=== PATIENT | female | born 1985 | race Caucasian/White ===

== ENCOUNTER 2017-09-27 20:47 | Emergency (ER) | payer MEDICAID, SELFPAY ==
[2017-09-27 20:49] VITALS: BP 119/74; PULSE 72; RESP 15; TEMP 36.8; O2SAT 100; BMI 24.8
[2017-09-27 21:11] LABS: Bacteria 0 SEEN /hpf (None Seen); Mucous, Urine 0 SEEN /hpf (<or=2+); Red Blood Cells-Urine 0 SEEN /hpf (0-5); White Blood Cells 0 SEEN /hpf (0-5)
[2017-09-27 21:15] LABS: Color, Urine Yellow (Yellow); Glucose, Dipstick Normal (Normal); Ketone-Dipstick Negative (Negative); Leukocyte Esterase-Dipstick Negative /ul (Negative); Nitrite-Dipstick Negative (Negative); Occult Blood-Urine Negative /ul (Negative); Protein-Dipstick Negative (Negative); Urine Bilirubin Dipstick Negative (Negative); Urine Clarity Sl. Cloudy (Clear); Urine Urobilinogen Normal (Normal)
[2017-09-27 21:26] LABS: Squamous Epithelial Cells - UA 0-5 SEEN /hpf (5-10)
--- NOTE | 2017-09-27 22:03 | ED.DCSUM_ITS ---
- ER Visit Summary Date of Service: 09/27/17 Chief Complaint: Frequency mid lower abdominal pain and discomfort with urination History of Present Illness: The patient is a 32 F who presents because of frequency, disc comfort with urination and pain that she localizes over the suprapubic region. She also complained of pain mid low back. She denies fever , chills night sweats. She denies nausea or vomiting. She states her last urinary tract infection was 2-3 years ago. Her last menses was 6 weeks ago. She does use contraceptives. She denies any other symptoms please read written note Physical Examination: Patient appears no discomfort. Vital signs are unremarkable and she is afebrile. HEENT is unremarkable. Heart is regular without murmur, gallop or rub. S1 and S2 are normal. Lungs are clear to auscultation with good movement of air bilaterally. Abdomen is remarkable tenderness suprapubic area. She complained of pain in the left upper quadrant however with distraction there is no pain. There is no hepatosplenomegaly. Negative Yancey sign. There is no CVA tenderness noted. There is no skin lesion noted. Alert oriented with a nonfocal neurologic exam Test Results: UA is normal Emergency Department Course and Treatment: Patient states menses are irregular. She has no symptoms of . Because she has urinary symptoms a UA was obtained. Treatment Plan: Her UA is normal she was treated with Azo for her discomfort and discharged with prescription. Disposition: Discharged to home Impression: Dysuria of unknown etiology This note was generated with [employer] dictation software. It may contain incorrect words, spelling, and punctuation that were not noted in review of the chart prior to signing ED Disposition - Plan for ED Patient: Disposition: Home or Assisted Living Chief Complaint: Complaint Instructions: ED Dysuria Uncertain Cause Prescriptions: Phenazopyridine HCl [Azo Urinary Pain Relief] 190 mg PO TID #10 tab Referrals: Demond Allen III, MD [Primary Care Provider] - 3-5 Days if not improving
[2017-09-27] MEDS: Phenazopyridine 95 MG Tablet 190 MG PO (22:15)
[2017-09-27 22:16] VITALS: BP 108/72; PULSE 64; O2SAT 100
== END 2017-09-27 22:17 | disposition home or self-care (01) ==
PROVIDERS: Emergency Provider Emergency Medicine; Family Provider Family Medicine; PCP Family Medicine
DX: R30.0 Dysuria (principal); R10.12 Left upper quadrant pain; M54.9 Dorsalgia, unspecified; R35.0 Frequency of micturition
CPT/HCPCS: 81001; 99283

== ENCOUNTER 2017-12-10 05:04 | Emergency (ER) | payer MEDICAID, SELFPAY ==
[2017-12-10 05:06] VITALS: BP 117/72; PULSE 110; RESP 24; TEMP 36.9; O2SAT 97; BMI 24.5
[2017-12-10 06:20] LABS: Absolute Lymphocyte Count 2.74 X10^3/ul (0.83-4.51); Absolute Neutrophil Count 2.7 X10^3/uL (2.0-7.7); Basophil# 0.02 X10^3/uL; Basophil% 0.3 % (0-1); Eosinophil# 0.06 X10^3/uL; Hematocrit 35.5 % (37-47); Hemoglobin 10.7 g/dl (12.0-15.0); Lymphocyte # 2.74 X10^3/ul (4.0); Lymphocyte % 44.2 % (19-41); Mean Corp Hgb Conc 30.1 g/gl (32-36); Mean Corpuscular Hgb 21.3 pg (27.0-32.0); Mean Corpuscular Volume 70.7 fL (81-99); Mean Platelet Vol. 9.1 fl (6.2-12.0); Monocyte# 0.65 X10^3/uL; Monocyte% 10.5 % (0-10); Neutrophil # 2.73 X10^3/uL (2.7-7.7); Platelet Count 294 K/mm3 (150-450); RBC Distribution Width CV 15.1 % (11.6-14.6); RBC Distribution Width SD 38.8 fl (35.1-43.9); Red Blood Count 5.02 M/mm3 (4.2-5.4); White Blood Count 6.2 K/mm3 (4.4-11.0)
[2017-12-10 06:27] LABS: Anion Gap 13 (5-15); BUN 15 mg/dL (7-18); Calcium,Total 8.5 mg/dL (8.5-10.1); Chloride 106 mmol/L (98-107); Creatinine, Serum 0.94 mg/dL (0.55-1.02); EST Glomerular Filtration Rate 73 mL/min (>60); Est Glom Filt Rate - Afr Amer 88 mL/min (>60); Estimated Creatinine Clearance 69.76 ml/min; Glucose 89 mg/dL (74-106); Potassium 3.5 mmol/L (3.5-5.1); Sodium Level 141 mmol/L (136-145)
[2017-12-10 06:30] LABS: Differential Indicated SCAN CRITERIA MET; POSITIVE COUNT NO; POSITIVE DIFFERENTIAL NO; POSITIVE MORPHOLOGY YES
[2017-12-10 07:03] LABS: Bacteria 0 SEEN /hpf (None Seen); Mucous, Urine 0 SEEN /hpf (<or=2+); Red Blood Cells-Urine 0 SEEN /hpf (0-5); White Blood Cells 0 SEEN /hpf (0-5)
[2017-12-10 07:12] LABS: Color, Urine Straw (Yellow); Glucose, Dipstick NEGATIVE (Normal); Ketone-Dipstick Negative (Negative); Leukocyte Esterase-Dipstick Negative /ul (Negative); Nitrite-Dipstick Negative (Negative); Occult Blood-Urine Negative /ul (Negative); Protein-Dipstick Negative (Negative); Specific Gravity, Urine 1.015 (1.002-1.030); Urine Bilirubin Dipstick Negative (Negative); Urine Clarity Clear (Clear); Urine Urobilinogen Normal (Normal)
[2017-12-10 07:13] LABS: Squamous Epithelial Cells - UA 0-5 SEEN /hpf (5-10)
[2017-12-10 07:25] VITALS: BP 107/68; PULSE 69; RESP 18; O2SAT 98
[2017-12-10 07:25] LABS: Amphetamine Urine VISTA NEGATIVE (<1000 ng/mL); Barbiturate Urine VISTA NEGATIVE (< 200 ng/mL); Benzodiazepine Urine VISTA NEGATIVE (< 200 ng/mL); Cocaine Urine VISTA NEGATIVE (< 300 ng/mL); Ecstacy Urine VISTA NEGATIVE (< 500 ng/mL); Methadone Urine VISTA NEGATIVE (< 300 ng/mL); PCP Urine VISTA NEGATIVE (< 25 ng/mL); THC Urine VISTA NEGATIVE (< 50 ng/mL); Vista UDS pH Range 6
--- NOTE | 2017-12-10 07:39 | ED.DCSUM_ITS ---
- ER Visit Summary Date of Service: 12/10/17 Chief Complaint: Seizure History of Present Illness: The patient is a 32 F with a seizure. The patient had a similar episode 7 months ago. This evening she was sleeping. Her noted that she started making noises, shaking, and was unresponsive for about 2 minutes. She was confused afterwards. She remembers waking up when EMS was in her bedroom. The patient has been feeling well recently. She was seen in April for the same thing. This happened while she was asleep. She had a CT of her head as well as labs and a lumbar puncture. Workup was unremarkable. She was referred to neurology as an outpatient, but she never had any issues so she did not follow-up. She has been sleeping well but she does snore and wake up frequently. She denies drug use. Denies head injuries. Denies any other new problems. Physical Examination: Vital signs unremarkable except for tachycardia. Heart rate 110. Afebrile. Head and neck atraumatic. Cranial nerves grossly intact. No focal or lateralizing neurologic abnormalities. Skin is normal in color. Heart is regular. Lungs clear. Patient is alert and oriented. Appropriate for situation. Test Results: Hemoglobin 10.7 BMP unremarkable. Urinalysis normal. Tox screen negative. Emergency Department Course and Treatment: Patient had seizure precautions. No further seizure activity was noted. She previously had a thorough workup but has not yet had an MRI or EEG. She did not follow-up with neurology after her last ER visit. Spoke with Dr. Cowan. He recommended MRI and outpatient follow-up for EEG. Patient has a piercing embedded in her left ear that we were unable to remove. We discussed surgical options for removal. She would like to follow- up as an outpatient. I believe this is reasonable. She did have a CT and it was unremarkable. I will refer her to Dr. Colvin for piercing removal. She can follow-up with neurology for outpatient MRI and EEG. Patient will be started on Keppra 500 mg twice a day. I stressed driving restrictions on multiple occasions. No driving whatsoever. Patient should call today to schedule appointment with ENT and neurology. Treatment Plan: As above Disposition: Discharged Impression: 1. Seizure This note was generated with [employer] software. It may contain incorrect words, spelling, and punctuation that were not noted in review of the chart prior to signing ED Disposition - Plan for ED Patient: Chief Complaint: Seizure Referrals: Demond Allen III, MD [Primary Care Provider] -
--- NOTE | 2017-12-10 07:40 | ED.DEP ---
ED Disposition - Plan for ED Patient: Chief Complaint: Seizure Instructions: ED Seizure Recurrent Prescriptions: levETIRAcetam tablet [Keppra tablet] 500 mg PO BID #60 tab Referrals: Robert Colvin MD [STAFF PHYSICIAN] - Darin Cowan MD [STAFF PHYSICIAN] - Additional Instructions: Follow-up with Dr. Colvin from ENT for piercing removal. Follow-up with Dr. Cowan for neurology. No driving until cleared by neurology.
[2017-12-10] MEDS: levETIRAcetam 500 MG Tablet PO (07:43)
[2017-12-10 07:49] VITALS: BP 105/64; PULSE 66; RESP 16; O2SAT 96
== END 2017-12-10 07:50 | disposition home or self-care (01) ==
LOC: ED 05:27
PROVIDERS: Emergency Provider Emergency Medicine; Family Provider Family Medicine; PCP Family Medicine
DX: R56.9 Unspecified convulsions (principal)
CPT/HCPCS: 80048; 80307; 81001; 85025; 99285; A4216

== ENCOUNTER → 2017-12-17 10:01 | Outpatient (CLI) | payer MEDICAID, SELFPAY ==
--- NOTE | 2017-12-17 10:05 | RAD_ITS ---
STUDY: X-RAY - SKULL REASON FOR EXAM: Female, 32 years old. Question ball from earing left ear. TECHNIQUE: 5 view(s) of the skull were obtained. COMPARISON: None. FINDINGS: There appears to be a right nasal piercing in place. Normal osseous calvarium. Normal visualized facial bones. Normal visualized paranasal sinuses. No foreign body is visualized within the expected region of the internal auditory canal. RAD/Skull min 4 Views IMPRESSION: No foreign body visualized within the left ear. Electronically Signed: Candace Elias MD at 23:41 EDT Tel , Service support ,
== END ==
PROVIDERS: Family Provider Family Medicine; PCP Family Medicine; Visit Provider Otolaryngology
DX: M79.5 Residual foreign body in soft tissue (principal)
CPT/HCPCS: 70260

== ENCOUNTER 2018-04-23 20:31 | Emergency (ER) | payer MEDICAID, SELFPAY ==
[2018-04-23 20:31] VITALS: BP 123/73; PULSE 74; RESP 16; TEMP 36.9; O2SAT 100; BMI 22.1
--- NOTE | 2018-04-23 21:23 | ED.DCSUM_ITS ---
- ER Visit Summary Date of Service: 04/23/18 Chief Complaint: Bilateral hand pain History of Present Illness: The patient is a 32 F presenting for evaluation secondary to bilateral hand pain. Patient reports that at about 1400 today she had an onset of burning in her hands laterally. She states that initially her hands were red and scorched hot, now the hands are cold but still have a burning sensation. 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 She has never had a history of cutting banana peppers in the past. Physical Examination: Upper extremity exam shows normal radial and ulnar pulses. Normal Lencho testing. Normal capillary refill. Normal range of motion of the hand and wrist. Normal color of the skin, skin is somewhat cool. Test Results: None indicated Emergency Department Course and Treatment: Patient presented with a burning sensation of her hands after being exposed to banana peppers. I did consider the possibility of vascular etiology, ray nods syndrome, or allergic reaction this does not seem to be consistent with that. She likely has an element of a chemical dermatitis. She was recommended on washing her hands, icing her hand, and contact precautions next time she works with peppers at work. Disposition: Discharge Impression: Chemical dermatitis This note was generated with [employer] dictation software. It may contain incorrect words, spelling, and punctuation that were not noted in review of the chart prior to signing ED Disposition - Plan for ED Patient: Disposition: Home or Assisted Living Chief Complaint: Upper Extremity Injury Diagnosis: Chemical dermatitis Instructions: ED Dermatitis Contact Referrals: Demond Allen III, MD [Primary Care Provider] -
[2018-04-23 21:31] VITALS: BP 121/68; PULSE 72; RESP 18; O2SAT 98
== END 2018-04-23 21:32 | disposition home or self-care (01) ==
PROVIDERS: Emergency Provider Emergency Medicine; Family Provider Family Medicine; PCP Family Medicine
DX: L25.3 Unspecified contact dermatitis due to other chemical products (principal); G40.909 Epilepsy, unspecified, not intractable, without status epilepticus
CPT/HCPCS: 99282

== ENCOUNTER 2018-12-20 14:50 | Emergency (ER) | payer MEDICAID, SELFPAY ==
[2018-12-20 14:51] VITALS: BP 111/67; PULSE 58; RESP 16; TEMP 36.6; O2SAT 100; BMI 23.3
[2018-12-20 15:01] VITALS: BP 126/81; PULSE 61; RESP 15; O2SAT 100
--- NOTE | 2018-12-20 15:33 | RAD_ITS ---
STUDY: X-RAY CHEST REASON FOR EXAM: Female, 33 years old. Chest pain TECHNIQUE: Frontal and lateral views of the chest COMPARISON: 03/21/2014 FINDINGS: The lungs are clear. There are no pleural effusions. There is no pneumothorax. The heart is normal in size. The visualized osseous structures are within normal limits. RAD/Chest PA and Lateral IMPRESSION: No acute thoracic pathology. Electronically Signed: Jose Aguero, at 16:08 EDT Tel , Service support ,
--- NOTE | 2018-12-20 15:38 | ED.VIS.GEN ---
History of Present Illness Chief Complaint: Chest Pain Informant: Patient Onset: Today Context: Sudden Onset Timing: Continuous Quality: sharp Location: left chest Current Severity: Mild Maximum Severity: Moderate Worsened by: movement of left upper extremity Relieved by: nothing Associated Symptoms: none Narrative: 33-year-old female presents with chest pain. Patient was laying on her left side and reading a book when she began sudden onset of sharp left-sided chest pain 30 minutes prior to arrival. Pain lasted for about 15 minutes and resolved. She was not short of breath lightheaded or dizzy. No nausea or vomiting. No diaphoresis. No numbness or tingling of the extremities or swelling. No history of having the symptoms previously. She has been feeling well up until today. Patient denies any recent travel or surgery use of oral contraceptives or history of DVT or PE. She is a non-smoker with no history of hypertension hyperlipidemia or diabetes. There is no family history of heart disease at her age or a young age less than 50. Prior similar symptoms: No Recent Illness/Hospitalization: No Past Medical History - Allergies and Home Meds Allergies/Adverse Reactions: Allergies Bleach (Sodium Hypochlorite) Allergy (Verified 12/20/18 14:51) Hives lamotrigine [From Lamictal] Allergy (Verified 12/20/18 14:51) Rash PINE TREES Allergy (Uncoded 12/20/18 14:51) Hives Primary Care Physician: Demond Allen III, MD [Primary Care Provider] - Prior records reviewed: Yes Past Medical History: - - seizures Surgical History: - - Smoking Status: Never smoker Review of Systems All systems negative except as indicated Cardiovascular: Reports: Chest pain. Denies: Palpitations, Heart racing Physical Exam Vital Signs/Narrative: Vital Signs Temp Pulse Resp BP Pulse Ox 12/20/18 15:01 61 15 126/81 H 100 12/20/18 14:51 97.8 F 58 L 16 111/67 100 Inital Vital Signs reviewed: Yes General: Well nourished, Well developed, No Acute Distress Head: Normocephalic, Atraumatic Eyes: Perrl, EOMI ENT: Moist mucous membranes Neck: Supple, Nontender Cardiovascular: Regular rate, Regular rhythm, No murmurs Respiratory: No distress, CTA bilaterally, Chest nontender Abdomen: Soft, Nontender, Nondistended, Normal bowel sounds, No masses Back: Nontender Extremities: Nontender, No edema Skin: Normal color, No rash Neurological: Alert, Oriented x3, Normal Strength, Normal Sensation Diagnostic/Tx/Re-eval - EKG Initial EKG Interpretation: Sinus Rhythm - Sinus rhythm rate of 53 bpm., No Acute Injury Pattern Prior: No Prior - Medical Decision Making EKG was normal sinus rhythm rate of [address] segment or T wave changes. Normal intervals. No ectopy. Chest x-ray unremarkable. Patient is PERC negative. Vital signs are stable. She is not tachycardic or hypoxic. Pain is likely musculoskeletal in nature. She does not have any risk factors for coronary artery disease. She is not having any pain at this time. Will discharge home and have her follow-up with her primary care physician. ED Disposition - Plan for ED Patient: Diagnosis: Chest pain Instructions: CHEST PAIN, NonCardiac Referrals: Demond Allen III, MD [Primary Care Provider] -
--- NOTE | 2018-12-20 15:55 | EKG12_ITS ---
Test Reason : CP Blood Pressure : / mmHG Vent. Rate : 053 BPM Atrial Rate : 053 BPM P-R Int : 138 ms QRS Dur : 074 ms QT Int : 420 ms P-R-T Axes : 072 053 048 degrees QTc Int : 394 ms Sinus bradycardia Otherwise normal ECG Confirmed by YOAV WONG, ROBBIE ([id number]), scientific editor LOPEZ VERA ([id number]) on 12/23/2018 11:58:28 AM Referred By: BEVERLEY/JOSEFINA/MATT Confirmed By:ROBBIE CASON MD
[2018-12-20 16:00] VITALS: BP 105/73; PULSE 58; RESP 16; O2SAT 99
[2018-12-20 17:24] VITALS: BP 109/67; PULSE 61; RESP 16; O2SAT 99
== END 2018-12-20 17:25 | disposition home or self-care (01) ==
LOC: ED 16:03
PROVIDERS: Emergency Provider Physician Assistant Medical; Family Provider Family Medicine; PCP Family Medicine
DX: R07.9 Chest pain, unspecified (principal)
CPT/HCPCS: 71046; 93005; 99282; A4216

== ENCOUNTER 2019-03-17 12:42 | Emergency (ER) | payer MEDICAID, SELFPAY ==
[2019-03-17 12:42] VITALS: BP 113/72; PULSE 69; RESP 18; TEMP 36.6; O2SAT 99; BMI 23.0
--- NOTE | 2019-03-17 13:20 | CT_ITS ---
STUDY: CT ABDOMEN AND PELVIS WITH CONTRAST REASON FOR EXAM: Female, 33 years old. Right lower quadrant pain. RADIATION DOSAGE (If Supplied By Facility): CTDIvol = ( 9.79 ) mGy, DLP = ( 490.20 ) mGycm TECHNIQUE: Transaxial images were obtained from the dome of the diaphragm to the symphysis pubis with oral contrast. IV/Oral Isovue 300 100 was administered. Sagittal and coronal images were reconstructed. Individualized dose optimization techniques were used for this CT. COMPARISON: None. FINDINGS: The visualized lung bases are unremarkable. The visualized portions of the heart are within normal limits. There is a 1.2 cm cyst in the posterior aspect of the dome of the right lobe of liver. I also suspect a tiny cyst in the anterior aspect of the left lobe of liver. Normal gallbladder and extrahepatic biliary system. Borderline splenomegaly. Normal pancreas. Normal bilateral adrenal glands. Normal right kidney. Normal left kidney. Normal visualized stomach. Normal small intestine. Normal colon. The appendix is visualized and appears normal. Normal abdominal aorta. Normal inferior vena cava. Normal retroperitoneum. Normal urinary bladder. There is a 2.8 cm x 3.6 cm septated cyst in the right lobe. The left ovary measures 3.1 cm x 4 cm. Multiple small follicles are seen within it. Small amount of free fluid in the pelvis. Normal abdominal wall. Normal osseous structures. CT/Abdomen/Pelvis WITH Contrast IMPRESSION: 3.6 cm x 2.8 cm septated cyst in the right ovary. Small amount of free fluid in the pelvis. Small follicles in the left ovary. Hepatic cysts. Borderline splenomegaly. Electronically Signed: Onesimo Farrar, at 15:35 EDT , Service support ,
--- NOTE | 2019-03-17 13:21 | ED.DCSUM_ITS ---
History of Present Illness Chief Complaint: Abd Pain Informant: Patient Onset: Days - 11 Narrative: 33-year-old female with history of seizure disorder, on Keppra, presenting with 11 days of persistent worsening right lower quadrant pain. Patient states she was evaluated at the [email or web address] and told to come to the emergency room for further evaluation to rule out appendicitis. Patient notes that she has had some increased nausea over the past week and a half. She notes she normally has nausea associated with taking her Keppra. In addition she has had constant pain in her right lower quadrant that fluctuates in intensity. She describes it as sharp, burning and aching. It does not radiate. Should she is also having some pain around her bellybutton at this time. She has had a couple soft bowel movements but denies any diarrhea. She denies any blood in her stool. She denies any urinary symptoms. She denies any abnormal vaginal bleeding or discharge. States she has had 4 C-sections but denies any other surgical history. She did not take anything for pain. She denies any other complaints at this time. Patient states she has a history of ovarian cyst and thought that was what was causing her pain but as it worsened persisted she went to see the [facility] today. Past Medical History - Allergies and Home Meds Allergies/Adverse Reactions: Allergies Bleach (Sodium Hypochlorite) Allergy (Verified 03/17/19 12:44) Hives lamotrigine [From Lamictal] Allergy (Verified 03/17/19 12:44) Rash PINE TREES Allergy (Uncoded 03/17/19 12:44) Hives Primary Care Physician: Demond Allen III, MD [Primary Care Provider] - Past Medical History: - - seizure disorder Surgical History: - - Smoking Status: Never smoker Review of Systems All systems negative except as indicated Gastrointestinal: Reports: Abdominal pain, Nausea Physical Exam Vital Signs/Narrative: Vital Signs Temp Pulse Resp BP Pulse Ox 03/17/19 12:42 98 F 69 18 113/72 99 Inital Vital Signs reviewed: Yes General: Well nourished, Well developed, No Acute Distress Head: Normocephalic, Atraumatic Eyes: Perrl, EOMI ENT: Moist mucous membranes, No rhinorrhea Neck: Supple, Nontender Cardiovascular: Regular rate, Regular rhythm, No murmurs Respiratory: No distress, CTA bilaterally, Chest nontender Abdomen: Soft, Nondistended, Normal bowel sounds, Tender - rlq. Negative for: Guarding, Rebound tenderness, Psoas sign, Obturator sign Back: Nontender, Normal Inspection. Negative for: CVA tenderness Extremities: Nontender, No edema Skin: Normal color, No rash Neurological: Alert, Oriented x3, Cranial nerves II-XII grossly intact, Normal Strength, Normal Sensation Psychological: Normal affect, Normal Mood Diagnostic/Tx/Re-eval Clinical Impression(s) from Imaging Studies Abdomen/Pelvis CT 03/17/19 13:20 IMPRESSION: 3.6 cm x 2.8 cm septated cyst in the right ovary. Small amount of free fluid in the pelvis. Small follicles in the left ovary. Hepatic cysts. Borderline splenomegaly. Electronically Signed: Onesimo Farrar, at 15:35 EDT , Service support , Laboratory Data 03/17/19 03/17/19 03/17/19 13:32 13:32 13:45 WBC 4.7 RBC 4.89 Hgb 10.4 L Hct 35.0 L MCV 71.6 L MCH 21.3 L MCHC 29.7 L RDW Std Deviation 36.8 RDW Coeff of Mikhail 14.5 Plt Count 226 MPV 9.1 Immature Gran % (Auto) 0.200 Neut % (Auto) 54.0 Lymph % (Auto) 36.3 [place] % (Auto) 7.7 Eos % (Auto) 0.9 Baso % (Auto) 0.9 Absolute Neuts (auto) 2.5 Absolute Lymphs (auto) 1.70 Nucleated RBC % 0 Sodium 140 Potassium 3.7 Chloride 106 Carbon Dioxide 30.0 Anion Gap 4 L BUN 11 Creatinine 0.84 Estim Creat Clear Calc 77.33 Est GFR (MDRD) Af Amer 99 Est GFR (MDRD) Non-Af 82 BUN/Creatinine Ratio 13.1 Glucose 76 Calcium 9.3 Total Bilirubin 0.40 AST 16 ALT 18 Alkaline Phosphatase 49 Total Protein 7.7 Albumin 3.9 Globulin 3.8 Albumin/Globulin Ratio 1.0 Lipase 149 Urine Color Urine Clarity Urine pH Ur Specific [place] Urine Protein Urine Glucose (UA) Urine Ketones Urine Occult Blood Urine Nitrite Urine Bilirubin Urine Urobilinogen Ur Leukocyte Esterase Urine RBC Urine WBC Ur Squamous Epith Cells Urine Bacteria Urine Mucus Urine Test Negative 03/17/19 13:45 WBC RBC Hgb Hct MCV MCH MCHC RDW Std Deviation RDW Coeff of Mikhail Plt Count MPV Immature Gran % (Auto) Neut % (Auto) Lymph % (Auto) [place] % (Auto) Eos % (Auto) Baso % (Auto) Absolute Neuts (auto) Absolute Lymphs (auto) Nucleated RBC % Sodium Potassium Chloride Carbon Dioxide Anion Gap BUN Creatinine Estim Creat Clear Calc Est GFR (MDRD) Af Amer Est GFR (MDRD) Non-Af BUN/Creatinine Ratio Glucose Calcium Total Bilirubin AST ALT Alkaline Phosphatase Total Protein Albumin Globulin Albumin/Globulin Ratio Lipase Urine Color Yellow Urine Clarity Sl. Cloudy Urine pH 7.0 Ur Specific [place] 1.010 Urine Protein Negative Urine Glucose (UA) Normal Urine Ketones Negative Urine Occult Blood Negative Urine Nitrite Negative Urine Bilirubin Negative Urine Urobilinogen Normal Ur Leukocyte Esterase Negative Urine RBC 0 SEEN Urine WBC 0 SEEN Ur Squamous Epith Cells 0-5 SEEN Urine Bacteria 1+ Urine Mucus 0 SEEN Urine Test Diagnostic Data Abdomen/Pelvis CT 03/17/19 13:20 IMPRESSION: 3.6 cm x 2.8 cm septated cyst in the right ovary. Small amount of free fluid in the pelvis. Small follicles in the left ovary. Hepatic cysts. Borderline splenomegaly. Electronically Signed: Onesimo Farrar, at 15:35 EDT , Service support , - Medical Decision Making Is evaluated for worsening right lower quadrant abdominal pain. She appears nontoxic in no acute distress. She is [facility] but instructed to come to the emergency room for concern of acute appendicitis. Pat ient is hemodynamically stable. She declines pain medication in the emergency room. CT with IV and p.o. contrast does not show an acute appendicitis however patient does have ovarian cyst. I suspect the sister the cause of her pain. Her symptoms are not consistent with acute ovarian torsion. I believe patient is stable for outpatient follow-up. Patient is counseled on signs and symptoms requiring return to the emergency room. Patient verbalizes agreement and understand this plan. Patient discharged home in stable and improved condition. ED Disposition - Plan for ED Patient: Disposition: Home or Assisted Living Diagnosis: Ovarian cyst, Right sided abdominal pain Instructions: Ovarian Cyst Prescriptions: Ibuprofen [Motrin] 600 mg PO Q8H PRN PRN #20 tab PRN Reason: Pain Score 1-10/10 Prescription Printed Referrals: Demond Allen III, MD [Primary Care Provider] - Additional Instructions: Follow-up with your [facility] for ovarian cyst. Return if you have worsening symptoms. You do not have appendicitis at this time.
[2019-03-17 13:47] LABS: Absolute Neutrophil Count 2.5 X10^3/uL (2.0-7.7); Basophil# 0.04 X10^3/uL; Basophil% 0.9 % (0-1); Eosinophil# 0.04 X10^3/uL; Eosinophils% 0.9 % (0-5); Hemoglobin 10.4 g/dL (12.0-15.0); Lymphocyte % 36.3 % (19-41); Mean Corp Hgb Conc 29.7 g/dL (32-36); Mean Corpuscular Hgb 21.3 pg (27.0-32.0); Mean Corpuscular Volume 71.6 fL (81-99); Mean Platelet Vol. 9.1 fl (6.2-12.0); Monocyte# 0.36 X10^3/uL; Monocyte% 7.7 % (0-10); NRBC Flagged by Analyzer 0 % (0-5); Neutrophil # 2.53 X10^3/uL (2.7-7.7); Platelet Count 226 K/mm3 (150-450); RBC Distribution Width CV 14.5 % (11.6-14.6); RBC Distribution Width SD 36.8 fl (35.1-43.9); Red Blood Count 4.89 M/mm3 (4.2-5.4); White Blood Count 4.7 K/mm3 (4.4-11.0)
[2019-03-17 13:58] LABS: Mucous, Urine 0 SEEN /hpf (<or=2+); Red Blood Cells-Urine 0 SEEN /hpf (0-5); White Blood Cells 0 SEEN /hpf (0-5)
[2019-03-17 14:00] LABS: Color, Urine Yellow (Yellow); Glucose, Dipstick Normal (Normal); Ketone-Dipstick Negative (Negative); Leukocyte Esterase-Dipstick Negative /ul (Negative); Nitrite-Dipstick Negative (Negative); Occult Blood-Urine Negative /ul (Negative); Protein-Dipstick Negative (Negative); Urine Bilirubin Dipstick Negative (Negative); Urine Clarity Sl. Cloudy (Clear); Urine Urobilinogen Normal (Normal)
[2019-03-17 14:03] LABS: Internal QC Validated? YES +Cl - CLEAR BKGD; Pregnancy, Urine Negative Negative
[2019-03-17 14:05] LABS: AST(SGOT) 16 U/L (15-37); Alanine Aminotransfer ALT/SGPT 18 U/L (13-56); Albumin, Serum 3.9 g/dL (3.2-5.0); Alkaline Phosphatase 49 U/L (45-117); Anion Gap 4 (5-15); BUN 11 mg/dL (7-18); BUN/Creat Ratio 13.1 RATIO (10-20); Calcium,Total 9.3 mg/dL (8.5-10.1); Chloride 106 mmol/L (98-107); Creatinine, Serum 0.84 mg/dL (0.55-1.02); EST Glomerular Filtration Rate 82 mL/min (>60); Est Glom Filt Rate - Afr Amer 99 mL/min (>60); Estimated Creatinine Clearance 77.33 ml/min; Globulin 3.8 g/dL (2.2-4.2); Glucose 76 mg/dL (74-106); Lipase 149 U/L (73-393); Potassium 3.7 mmol/L (3.5-5.1); Protein, Total 7.7 g/dL (6.4-8.2); Sodium Level 140 mmol/L (136-145)
[2019-03-17 14:10] LABS: Bacteria 1+ /hpf (None Seen); Squamous Epithelial Cells - UA 0-5 SEEN /hpf (5-10)
[2019-03-17 15:42] VITALS: BP 107/68; PULSE 42; RESP 16
== END 2019-03-17 16:17 | disposition home or self-care (01) ==
PROVIDERS: Emergency Provider Emergency Medicine; Family Provider Family Medicine; PCP Family Medicine
DX: N83.201 Unspecified ovarian cyst, right side (principal); R10.31 Right lower quadrant pain; K76.89 Other specified diseases of liver; G40.909 Epilepsy, unspecified, not intractable, without status epilepticus
CPT/HCPCS: 74177; 80053; 81001; 81025; 83690; 85025; 99283; Q9967; A4216

== ENCOUNTER 2021-08-25 09:12 | Emergency (ER) | payer MEDICAID, SELFPAY ==
[2021-08-25 09:15] VITALS: BP 133/78; PULSE 61; RESP 16; TEMP 36.5; O2SAT 100; BMI 25.2
--- NOTE | 2021-08-25 09:39 | CT_ITS ---
STUDY: CT BRAIN WITHOUT CONTRAST REASON FOR EXAM: Female, 36 years old. Confusion. RADIATION DOSAGE (If Supplied By Facility): CTDIvol = ( 44.99 ) mGy, DLP = ( 779.24 ) mGycm TECHNIQUE: Transaxial CT imaging of the brain was performed without administration of intravenous contrast material. Individualized dose optimization techniques were used for this CT. COMPARISON: Comparison is made with prior study dated 04/26/2017. FINDINGS: Normal soft tissue structures. Normal calvarium. Normal size ventricles and extra-axial spaces for the patient''s age. Normal white matter tracts of the cerebral hemispheres. Normal basal ganglia and thalami. Normal brainstem. Normal cerebellum. There is no intracranial hemorrhage. There are no findings of an acute ischemic infarction. Normal visualized paranasal sinuses. CT/Brain/Head without Contrast IMPRESSION: Normal unenhanced CT scan of the brain. Electronically Signed: Onesimo Farrar MD at 10:19 EST ,
--- NOTE | 2021-08-25 09:41 | EX.ED.VIS.HA ---
HPI History of Present Illness Chief Complaint: Seizure Narrative Narrative: 36-year-old female presenting with confusion. 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 She states that she was having trouble picking up of her seat and confused about orders and this does not usually happen. She states she just feels off. 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 She states it did not seem to hurt that bad. She states that the Cook next to her yelled oh Lord. She did not get knocked out. She states she is not dizzy. No visual complaints. Known paresthesias. No facial droop or slurred speech. She does complain of a very mild headache. Patient also has a history of seizure disorder and she is on Keppra and she states that she normally will have a seizure in her sleep. She states that she would wake up feeling groggy and tired if this was the case but she did not wake up feeling groggy and tired. She has not had any known seizure. [facility] Medical History Epilepsy Home Medications ibuprofen 600 mg PO Q8H PRN PRN #20 tab 03/17/19 [Rx Last Taken Unknown] cephalexin 500 mg PO Q12 #14 cap 08/25/21 [Rx Last Taken Unknown] levetiracetam 500 mg PO BREAKFAST 08/25/21 [History Last Taken Unknown] levetiracetam 750 mg PO QHS 08/25/21 [History Last Taken Unknown] Allergy/AdvReac Type Severity Reaction Status Date / Time Bleach (Sodium Hypochlorite) Allergy Hives Verified 08/25/21 09:14 lamotrigine [From Lamictal] Allergy Rash Verified 08/25/21 09:14 [place]ES Allergy Hives Uncoded 08/25/21 09:14 Social History Smoking Status: Never smoker ROS ROS ED Constitutional Constitutional ED: Denies chills or fever(s) Eyes Eyes: Denies blurry vision or diplopia ENT ENT ED: Denies rhinorrhea or sore throat Cardiovascular Cardiovascular: Denies chest pain or palpitations Respiratory/Chest Respiratory/Chest: Denies dyspnea Gastrointestinal Gastrointestinal: Denies abdominal pain, nausea or vomiting Genitourinary Genitourinary ED: Denies dysuria or hematuria Musculoskeletal Musculoskeletal: Denies back pain, myalgias or neck pain Neurologic Neurologic: Reports headache(s) and other Details: Mild confusion Psychiatric Psychiatric: Denies anxiety or depression EXAM Physical Exam Const Vital Signs: 08/25/21 09:15 Temperature 97.7 F L Temperature Source Temporal Pulse Rate 61 Respiratory Rate 16 Blood Pressure 133/78 H Blood Pressure Mean 96 Pulse Ox 100 Oxygen Delivery Method Room Air General Appearance ED: Negative for pallor HEENT Reports normocephalic atraumatic Eyes PERRL and EOMs intact bilaterally Resp normal respiratory effort and clear to auscultation bilaterally Cardio regular rate and regular rhythm GI non-tender and non-distended Palpation: soft Extremity normal to inspection Neuro oriented x3, CN's II-XII intact bilaterally and no sensory deficits noted Sensorium / Orientation: awake and alert Coordination / Balance: [id number] test normal Speech: speech normal Motor Exam: strength 5/5 throughout Psych mental status grossly normal Attitude: No agitated Mood & Affect: Negative for anxious Skin General Skin Exam: Negative for jaundice or pallor MDM MDM MDM Narrative Medical decision making narrative: 36-year-old female presenting after head injury and having some confusion issues at work. She has no external signs of trauma. Her neurologic exam is normal. I did obtain lab work and her CBC and CMP are within normal limits. Serum is negative. Urinalysis has positive nitrites and 5-10 WBCs. She is not having any urinary symptoms but since she does have positive nitrites I will start her on Keflex and send urine culture. Clinically I think she has a concussion and she is given precautions for return for this. Patient knowledges understanding. She is discharged in stable condition. Impression: 1. UTI 2. Concussion Lab Data Attestation: I reviewed the patient's lab results. Labs: Laboratory Results - last 24 hr 08/25/21 08/25/21 08/25/21 09:35 09:35 09:35 WBC 5.2 RBC 4.84 Hgb 8.6 L Hct 30.7 L MCV 63.4 L MCH 17.8 L MCHC 28.0 L RDW Std Deviation 38.0 RDW Coeff of Mikhail 16.8 H Plt Count 267 MPV 9.1 Immature Gran % (Auto) 0.400 Neut % (Auto) 61.6 Lymph % (Auto) 29.1 [place] % (Auto) 7.3 Eos % (Auto) 1.0 Baso % (Auto) 0.6 Absolute Neuts (auto) 3.2 Absolute Lymphs (auto) 1.52 Nucleated RBC % 0 Sodium 138 Potassium 3.5 Chloride 106 Carbon Dioxide 28.0 Anion Gap 4 L BUN 12 Creatinine 0.76 Estim Creat Clear Calc 83.02 Est GFR (MDRD) Af Amer 109 Est GFR (MDRD) Non-Af 90 BUN/Creatinine Ratio 15.7 Glucose 94 Calcium 9.2 Total Bilirubin 0.20 AST 19 ALT 18 Alkaline Phosphatase 46 Total Protein 7.9 Albumin 3.9 Globulin 4.0 Albumin/Globulin Ratio 1.0 Serum , Qual NEGATIVE Urine Color Urine Clarity Urine pH Ur Specific [place] Urine Protein Urine Glucose (UA) Urine Ketones Urine Occult Blood Urine Nitrite Urine Bilirubin Urine Urobilinogen Ur Leukocyte Esterase Urine RBC Urine WBC Ur Squamous Epith Cells Urine Bacteria Urine Mucus 08/25/21 09:57 WBC RBC Hgb Hct MCV MCH MCHC RDW Std Deviation RDW Coeff of Mikhail Plt Count MPV Immature Gran % (Auto) Neut % (Auto) Lymph % (Auto) [place] % (Auto) Eos % (Auto) Baso % (Auto) Absolute Neuts (auto) Absolute Lymphs (auto) Nucleated RBC % Sodium Potassium Chloride Carbon Dioxide Anion Gap BUN Creatinine Estim Creat Clear Calc Est GFR (MDRD) Af Amer Est GFR (MDRD) Non-Af BUN/Creatinine Ratio Glucose Calcium Total Bilirubin AST ALT Alkaline Phosphatase Total Protein Albumin Globulin Albumin/Globulin Ratio Serum , Qual Urine Color Yellow Urine Clarity Sl. Cloudy Urine pH 7.0 Ur Specific [place] 1.010 Urine Protein Negative Urine Glucose (UA) Normal Urine Ketones Negative Urine Occult Blood Negative Urine Nitrite Positive H Urine Bilirubin Negative Urine Urobilinogen Normal Ur Leukocyte Esterase Negative Urine RBC 0 SEEN Urine WBC 5-10 SEEN Ur Squamous Epith Cells 0 SEEN Urine Bacteria 0 SEEN Urine Mucus 0 SEEN Radiography Diagnostic Testing: Clinical Impression(s) from Imaging Studies Brain CT 08/25/21 09:39 IMPRESSION: Normal unenhanced CT scan of the brain. Electronically Signed: Onesimo Farrar MD at 10:19 EST , Discharge Plan Triage Chief Complaint: Seizure ED Provider: Cristian Ramírez Dx/Rx/DC Orders Instructions: ED Concussion, ED CYSTITIS Female Adult Prescriptions: New cephalexin 500 mg capsule 500 mg PO Q12 Qty: 14 RF: 0 No Action ibuprofen 600 MG tablet 600 mg PO Q8H PRN PRN (Reason: Pain Score 1-10/10) Qty: 20 RF: 0 levetiracetam 500 mg tablet 500 mg PO BREAKFAST RF: 0 levetiracetam 500 mg tablet 750 mg PO QHS RF: 0 Primary Care Provider: Care Physician,No Primary Referrals: Care Physician,No Primary [Primary Care Provider] - Disposition Disposition: Home, Self Care
[2021-08-25 09:47] LABS: Absolute Lymphocyte Count 1.52 X10^3/uL (0.83-4.51); Absolute Neutrophil Count 3.2 X10^3/uL (2.0-7.7); Basophil# 0.03 X10^3/uL; Basophil% 0.6 % (0-1); Eosinophil# 0.05 X10^3/uL; Hematocrit 30.7 % (37-47); Hemoglobin 8.6 g/dL (12.0-15.0); Lymphocyte # 1.52 X10^3/ul (0.83-4.51); Lymphocyte % 29.1 % (19-41); Mean Corpuscular Hgb 17.8 pg (27.0-32.0); Mean Corpuscular Volume 63.4 fL (81-99); Mean Platelet Vol. 9.1 fl (6.2-12.0); Monocyte# 0.38 X10^3/uL; Monocyte% 7.3 % (0-10); NRBC Flagged by Analyzer 0 % (0-5); Neutrophil # 3.22 X10^3/uL (2.7-7.7); Neutrophil % 61.6 % (47-70); Platelet Count 267 K/mm3 (150-450); RBC Distribution Width CV 16.8 % (11.6-14.6); Red Blood Count 4.84 M/mm3 (4.2-5.4); White Blood Count 5.2 K/mm3 (4.4-11.0)
[2021-08-25 09:51] LABS: Internal QC Validated? YES +Cl - CLEAR BKGD; Pregnancy, Serum, hCG Quali. NEGATIVE Negative
[2021-08-25 09:59] LABS: AST(SGOT) 19 U/L (15-37); Alanine Aminotransfer ALT/SGPT 18 U/L (13-56); Albumin, Serum 3.9 g/dL (3.2-5.0); Alkaline Phosphatase 46 U/L (45-117); Anion Gap 4 (5-15); BUN 12 mg/dL (7-18); BUN/Creat Ratio 15.7 RATIO (10-20); Calcium,Total 9.2 mg/dL (8.5-10.1); Chloride 106 mmol/L (98-107); Creatinine, Serum 0.76 mg/dL (0.55-1.02); EST Glomerular Filtration Rate 90 mL/min (>60); Est Glom Filt Rate - Afr Amer 109 mL/min (>60); Estimated Creatinine Clearance 83.02 ml/min; Glucose 94 mg/dL (74-106); Potassium 3.5 mmol/L (3.5-5.1); Protein, Total 7.9 g/dL (6.4-8.2); Sodium Level 138 mmol/L (136-145)
[2021-08-25 10:03] LABS: Bacteria 0 SEEN /hpf (None Seen); Mucous, Urine 0 SEEN /hpf (<or=2+); Red Blood Cells-Urine 0 SEEN /hpf (0-5); Squamous Epithelial Cells - UA 0 SEEN /hpf (5-10)
[2021-08-25 10:06] LABS: Color, Urine Yellow (Yellow); Glucose, Dipstick Normal (Normal); Ketone-Dipstick Negative (Negative); Leukocyte Esterase-Dipstick Negative /ul (Negative); Nitrite-Dipstick Positive (Negative); Occult Blood-Urine Negative /ul (Negative); Protein-Dipstick Negative (Negative); Urine Bilirubin Dipstick Negative (Negative); Urine Clarity Sl. Cloudy (Clear); Urine Urobilinogen Normal (Normal)
[2021-08-25 10:22] LABS: White Blood Cells 5-10 SEEN /hpf (0-5)
[2021-08-25] MEDS: Cephalexin 250 MG Capsule 500 MG PO (11:10)
== END 2021-08-25 11:15 | disposition home or self-care (01) ==
PROVIDERS: Emergency Provider Student in an Organized Health Care Education/Training Program; Visit Provider Student in an Organized Health Care Education/Training Program
DX: S06.0X0A Concussion without loss of consciousness, initial encounter (principal); G40.909 Epilepsy, unspecified, not intractable, without status epilepticus; N39.0 Urinary tract infection, site not specified; W22.09XA Striking against other stationary object, initial encounter; Y99.0 Civilian activity done for income or pay; Y92.511 Restaurant or cafe as the place of occurrence of the external cause
CPT/HCPCS: 70450; 80053; 81001; 84703; 85025; 87086; 87088; 99285; A4216

== ENCOUNTER 2021-11-23 15:45 | Emergency (ER) | payer MEDICAID, SELFPAY ==
[2021-11-23 15:47] VITALS: BP 118/72; PULSE 52; RESP 18; TEMP 36.5; O2SAT 100; BMI 23.9
--- NOTE | 2021-11-23 16:12 | EKG12_ITS ---
Test Reason : CP Blood Pressure : / mmHG Vent. Rate : 047 BPM Atrial Rate : 047 BPM P-R Int : 130 ms QRS Dur : 084 ms QT Int : 466 ms P-R-T Axes : 064 056 053 degrees QTc Int : 412 ms Sinus bradycardia Otherwise normal ECG Confirmed by CHERY WONG, LAW ([id number]), staff editor SARITA DIEZ ([id number]) on 11/27/2021 12:53:30 PM Referred By: DRAKE/RHODA Confirmed By:LAW GOTTLIEB MD
--- NOTE | 2021-11-23 16:25 | RAD_ITS ---
STUDY: X-RAY CHEST REASON FOR EXAM: Female, 36 years old. CHEST PAIN chest pain TECHNIQUE: XR Chest 2 Views COMPARISON: 12/20/2018 FINDINGS: There is no demonstrated pleural abnormality. Normal size heart. Normal mediastinum and mikaela. Normal visualized pulmonary arteries. Normal visualized aortic arch and descending thoracic aorta. Normal visualized thoracic spine. Normal visualized ribs, clavicles, and shoulders. There is no demonstrated abnormality of the visualized soft tissue structures of the upper abdomen. RAD/Chest PA and Lateral IMPRESSION: There are no acute findings. Electronically Signed: Kwaku Wilson MD at 16:44 EDT ,
[2021-11-23 16:26] LABS: Absolute Lymphocyte Count 2.91 X10^3/uL (0.83-4.51); Absolute Neutrophil Count 7.6 X10^3/uL (2.0-7.7); Basophil# 0.05 X10^3/uL; Basophil% 0.4 % (0-1); Eosinophil# 0.01 X10^3/uL; Eosinophils% 0.1 % (0-5); Hemoglobin 8.5 g/dL (12.0-15.0); Lymphocyte # 2.91 X10^3/ul (0.83-4.51); Lymphocyte % 25.7 % (19-41); Mean Corp Hgb Conc 27.4 g/dL (32-36); Mean Corpuscular Hgb 17.3 pg (27.0-32.0); Mean Corpuscular Volume 63.1 fL (81-99); Monocyte# 0.75 X10^3/uL; Monocyte% 6.6 % (0-10); NRBC Flagged by Analyzer 0 % (0-5); Neutrophil # 7.58 X10^3/uL (2.7-7.7); Neutrophil % 66.9 % (47-70); POSITIVE COUNT YES; RBC Distribution Width CV 17.4 % (11.6-14.6); RBC Distribution Width SD 38.5 fl (35.1-43.9); Red Blood Count 4.91 M/mm3 (4.2-5.4); White Blood Count 11.3 K/mm3 (4.4-11.0)
[2021-11-23 16:30] LABS: Differential Indicated SCAN CRITERIA MET
[2021-11-23 16:48] LABS: Anion Gap 8 (5-15); BUN 16 mg/dL (7-18); BUN/Creat Ratio 19.8 RATIO (10-20); Calcium,Total 9.9 mg/dL (8.5-10.1); Chloride 106 mmol/L (98-107); Creatinine, Serum 0.81 mg/dL (0.55-1.02); EST Glomerular Filtration Rate 84 mL/min (>60); Est Glom Filt Rate - Afr Amer 102 mL/min (>60); Glucose 79 mg/dL (74-106); Potassium 3.3 mmol/L (3.5-5.1); Sodium Level 138 mmol/L (136-145); Troponin-I HS (w/2H Reflex) < 3 pg/mL (3.0-54.0)
[2021-11-23 16:56] LABS: Platelet Estimate SLT DEC (ADEQ)
--- NOTE | 2021-11-23 16:57 | ED.VIS.CHEST ---
HPI History of Present Illness Chief Complaint: Chest Pain Informant: patient Onset/Context/Timing Onset: Today Activity at onset: sudden Timing: Continuous Quality: Positive for Pressure and Sharp Location: Right Chest and Left Chest Worsened By: Movement of Arm Relieved By: Nothing Associated Symptoms: Positive for Diaphoresis, Dyspnea, Cough and Lightheadedness; Negative for Nausea, Vomiting, Fever, Acid Reflux and Palpitations Narrative Narrative: She presents with chest pain that began approximately 30 to 40 minutes prior to arrival. Patient states it is under her breasts bilaterally. Patient describes her pain as sharp and pressure-like. Patient states it is worse with movement of her arms. Patient states nothing seems to help with it. Patient does admit to some shortness of breath and mild sweats. Patient admits to a cough and lightheadedness. Patient denies any fevers or chills. Patient denies any nausea or vomiting. Patient denies any cardiac or PE risk factors. CVD Risk Factors: Negative for Hypertension, Diabetes, Hypercholesterolemia, Family History 1' </=55 and Smoking PE Risk Factors: Negative for Recent Travel/Surgery, Recent Immobilization, Prior DVT or PE, Cancer and OCP + Smoking + >/=35 PFSH PFSH Medical History Anxiety Epilepsy Home Medications ibuprofen 600 mg PO Q8H PRN PRN #20 tab 03/17/19 [Rx Last Taken Unknown] levetiracetam 500 mg PO BREAKFAST 08/25/21 [History Last Taken Unknown] levetiracetam 750 mg PO QHS 08/25/21 [History Last Taken Unknown] prednisone 10 mg PO DAILY 11/23/21 [History Last Taken Unknown] Allergy/AdvReac Type Severity Reaction Status Date / Time Bleach (Sodium Hypochlorite) Allergy Hives Verified 11/23/21 15:46 lamotrigine [From Lamictal] Allergy Rash Verified 11/23/21 15:46 [place]RE[place] Allergy Hives Uncoded 11/23/21 15:46 Social History Smoking Status: Never smoker ROS ROS ED Constitutional Constitutional ED: Denies chills or fever(s) Eyes Eyes: Denies blurry vision or change in vision ENT ENT ED: Denies rhinorrhea or sore throat Cardiovascular Cardiovascular: Reports chest pain; Denies palpitations Respiratory/Chest Respiratory/Chest: Reports cough and dyspnea Gastrointestinal Gastrointestinal: Denies abdominal pain, nausea or vomiting Genitourinary Genitourinary ED: Denies dysuria or hematuria Musculoskeletal Musculoskeletal: Denies back pain or neck pain Integumentary Denies abscess or rash Neurologic Neurologic: Denies headache(s) or weakness Allergic/Immunologic Allergic/Immunologic ED: Denies mouth swelling or urticaria EXAM Physical Exam Const Vital Signs: 11/23/21 15:47 11/23/21 16:17 11/23/21 17:32 Temperature 97.7 F L Temperature Source Temporal Pulse Rate 52 L 47 L Respiratory Rate 18 18 Respiratory Effort Normal Non-Labored Blood Pressure 118/72 Blood Pressure Mean 87 Pulse Ox 100 100 Oxygen Delivery Method Room Air Room Air Room Air 11/23/21 18:40 11/23/21 18:52 11/23/21 19:13 Temperature Temperature Source Pulse Rate 48 L 47 L Respiratory Rate 16 15 Respiratory Effort Blood Pressure 130/76 H 120/80 Blood Pressure Mean 94 93 Pulse Ox 100 100 Oxygen Delivery Method Room Air Room Air Positive well nourished and well developed General Appearance ED: well developed and NAD HEENT normocephalic and atraumatic Eyes PERRL and EOMs intact bilaterally Neck supple and no JVD Chest Wall Chest Narrative: There is tenderness over the chest bilaterally both in the upper chest as well as along the costal margins bilaterally. There is no bony crepitance or step-off. There is no edema or ecchymosis. Resp normal respiratory effort and clear to auscultation bilaterally Effort and Inspection: Negative for respiratory distress Cardio regular rate, regular rhythm and no murmurs GI normal to inspection, nondistended, normoactive bowel sounds, soft to palpation, non-tender and non-distended Extremity normal to inspection General Extremety ED: Negative for edema or tenderness General Extremity: Negative for edema Neuro oriented x3, CN's II-XII intact bilaterally and no sensory deficits noted Sensorium / Orientation: awake and alert Motor Exam: strength 5/5 throughout Psych mental status grossly normal Heart Score History: Slightly/Non-Suspicious ECG: Normal Age: </= 45 years Risk Factors: No Risk Factors Score: 0 MDM MDM MDM Narrative Medical decision making narrative: Patient was given aspirin here. EKG was obtained. On my interpretation, it showed a sinus bradycardia with a rate of 47. GA interval, QRS interval, and QTc intervals were all normal. [place] was normal. There are no acute ST or T wave changes. PA and lateral chest x-ray was obtained. There are 2 views. On my interpretation, lung mcghee are clear. There is normal cardiac silhouette. Bony thorax is normal. There is no acute process noted. Radiologist also interpreted the x-ray and agrees. CBC shows a slight leukocytosis of 11.3. There is anemia with a hemoglobin of 8.5 and hematocrit 31.0. These are consistent with prior results. Basic metabolic profile was within normal limits. High-sensitivity troponin was less than 3. Patient was also given a GI cocktail. Patient felt better after this. 2-hour repeat high-sensitivity troponin was also less than 3. Patient has a HEART score of 0. Patient was advised that this is low risk for acute cardiac event. Patient was advised that it may be gastrointestinal etiology. Patient was advised to take [id number] omeprazole as needed. Patient was instructed to follow-up with her primary care physician in 5 to 7 days for further evaluation. Patient understood and was agreeable with the plan. All questions were answered. Lab Data Attestation: I reviewed the patient's lab results. Labs: Laboratory Results - last 24 hr 11/23/21 11/23/21 11/23/21 16:15 16:15 18:35 WBC 11.3 H RBC 4.91 Hgb 8.5 L Hct 31.0 L MCV 63.1 L MCH 17.3 L MCHC 27.4 L RDW Std Deviation 38.5 RDW Coeff of Mikhail 17.4 H Plt Count TNP MPV TNP Immature Gran % (Auto) 0.300 Neut % (Auto) 66.9 Lymph % (Auto) 25.7 [place] % (Auto) 6.6 Eos % (Auto) 0.1 Baso % (Auto) 0.4 Absolute Neuts (auto) 7.6 Absolute Lymphs (auto) 2.91 Nucleated RBC % 0 Platelet Estimate SLT DEC Sodium 138 Potassium 3.3 L Chloride 106 Carbon Dioxide 24.0 Anion Gap 8 BUN 16 Creatinine 0.81 Estim Creat Clear Calc 77.90 Est GFR (MDRD) Af Amer 102 Est GFR (MDRD) Non-Af 84 BUN/Creatinine Ratio 19.8 Glucose 79 Calcium 9.9 Troponin I High Sens < 3 L < 3 L Radiography Diagnostic Testing: Clinical Impression(s) from Imaging Studies Chest X-Ray 11/23/21 16:25 IMPRESSION: There are no acute findings. Electronically Signed: Kwaku Wilson MD at 16:44 EDT Reading Location ID and State: [facility] / [place] , Service support , EKG Initial EKG: Attestation: I personally reviewed and interpreted this EKG as follows: Interpretation: No Acute Injury Pattern and Sinus Bradycardia (47) Prior EKG tracings: available for review Prior: Unchanged (07/22/2018) Discharge Plan Triage Chief Complaint: Chest Pain ED Provider: Robert Belhcer Dx/Rx/DC Orders Clinical Impression: Chest pain of uncertain etiology Instructions: ED Chest Pain, Uncertain Cause Prescriptions: No Action ibuprofen 600 MG tablet 600 mg PO Q8H PRN PRN (Reason: Pain Score 1-10/10) Qty: 20 RF: 0 levetiracetam 500 mg tablet 500 mg PO BREAKFAST RF: 0 levetiracetam 500 mg tablet 750 mg PO QHS RF: 0 prednisone 10 mg tablet 10 mg PO DAILY RF: 0 Primary Care Provider: Care Physician,No Primary Referrals: Jose Guadalupe Walton MD [STAFF PHYSICIAN] - 5-7 Days Care Physician,No Primary [Primary Care Provider] - Disposition Disposition: Home, Self Care
[2021-11-23] MEDS: Aspirin 81 MG TAB.CHEW 324 MG PO (17:00)
[2021-11-23 17:32] VITALS: PULSE 47; RESP 18; O2SAT 100
[2021-11-23 18:21] LABS: Reflex Troponin-HS? (from REC) Y
[2021-11-23 18:40] VITALS: PULSE 48; RESP 16; O2SAT 100
[2021-11-23 18:52] VITALS: BP 130/76
[2021-11-23] MEDS: Mag Hydrox/Al Hydrox/Simeth 30 ML UDC PO (18:59)
[2021-11-23 19:13] VITALS: BP 120/80; PULSE 47; RESP 15; O2SAT 100
[2021-11-23 19:19] LABS: Troponin-I HS < 3 pg/mL (3.0-54.0)
[2021-11-23 19:50] VITALS: BP 115/73; PULSE 54; RESP 18; O2SAT 100
== END 2021-11-23 19:51 | disposition home or self-care (01) ==
PROVIDERS: Emergency Provider Emergency Medicine; Visit Provider Emergency Medicine
DX: R07.9 Chest pain, unspecified (principal); G40.909 Epilepsy, unspecified, not intractable, without status epilepticus; R00.1 Bradycardia, unspecified; D64.9 Anemia, unspecified; R06.02 Shortness of breath; Z79.899 Other long term (current) drug therapy
CPT/HCPCS: 71046; 80048; 84484; 85025; 93005; 99284; A4216

== ENCOUNTER 2022-02-05 08:20 | Emergency (ER) | payer MEDICAID, SELFPAY ==
[2022-02-05 08:20] VITALS: BP 115/70; PULSE 75; RESP 16; TEMP 36.6; O2SAT 100; BMI 23.0
[2022-02-05] MEDS: HYDROcodone Bitartrate/Apap 5/325 Tablet PO (08:33)
[2022-02-05] MEDS: Naproxen 250 MG Tablet 500 MG PO (08:33)
--- NOTE | 2022-02-05 08:37 | ED.VIS.BACK ---
HPI History of Present Illness Chief Complaint: Back Detail of Chief Complaint: Right lower back pain radiating anteriorly Informant: patient Onset/Context/Timing Onset: Today and Hours Quality: Aching Location: Thoracic, Lumbar, Buttock and Right Leg Current Severity: Mild Maximum Severity: Moderate Worsened by: improves with Movement, Bending and Lifting Relieved by: Nothing (Minimal if patient remains still) Associated Symptoms Associated Symptoms: - (Denies saddle paresthesia.); Negative for Numbness, Tingling, Radiation to Right Leg, Radiation to Left Leg, Fever, Abdominal Pain, Dysuria, Unable to Ambulate, Unable to Transfer, Urinary Retention, Urinary Incontinence, Constipation or Fecal Incontinence Narrative Narrative: Patient is a 36-year-old woman with history of ovarian cyst, ureterolithiasis who presents with atraumatic right lower back pain that radiates anteriorly. She denies nausea, vomiting or diarrhea. She states she has not urinated today. She denies dysuria, frequency, hematuria or urgency. She denies trauma. She denies rash. Last normal menstrual period end of December. She has no symptoms of . She has not noted a rash. Prior similar symptoms: Yes Recent Illness/Hospitalization: No PFSH PFS Medical History (Updated 02/05/22 @ 10:[address] Ciro Lara MD) Anxiety Epilepsy Ureteral stone Home Medications levetiracetam 500 mg tablet 750 mg PO BID 08/25/21 [History Last Taken Unknown] hydrocodone-acetaminophen 5-325mg 5mg-325mg 1 tab PO Q6H PRN PRN Pain 3 days #10 TABLETS 02/05/22 [Rx Last Taken Unknown] sulfamethoxazole 800 mg-trimethoprim 160 mg tablet 1 tab PO BID #20 TABLETS 02/05/22 [Rx Last Taken Unknown] Allergy/AdvReac Type Severity Reaction Status Date / Time Bleach (Sodium Hypochlorite) Allergy Hives Verified 02/05/22 08:22 lamotrigine [From Lamictal] Allergy Rash Verified 02/05/22 08:22 tree and shrub pollen Allergy Hives Verified 02/05/22 08:22 Surgical History no surgical history no surgical history Social History (Updated 02/05/22 @ 08:[address] Ciro Lara MD) household members: spouse Smoking Status: Never smoker substance use type: does not use ROS ROS ED Constitutional Constitutional ED: Denies chills, fever(s), subjective, sweats or weight loss Eyes Eyes: Denies blurry vision, change in vision or diplopia ENT ENT ED: Denies ear pain, rhinorrhea or sore throat Cardiovascular Cardiovascular: Denies chest pain, orthopnea, palpitations, paroxysmal nocturnal dyspnea or racing heartbeat Respiratory/Chest Respiratory/Chest: Denies dyspnea, dyspnea on exertion, orthopnea or paroxysmal nocturnal dyspnea Gastrointestinal Gastrointestinal: Reports abdominal pain; Denies diarrhea, melena, nausea or vomiting Genitourinary Genitourinary ED: Denies dysuria, hematuria or urinary frequency Musculoskeletal Musculoskeletal: Reports back pain; Denies arthralgias, myalgias or neck pain Integumentary Denies Abrasions or rash Neurologic Neurologic: Denies paresthesias or weakness Hematologic/Lymphatic Hematologic/Lymphatic: Denies easy bleeding or easy bruising EXAM Physical Exam Const Vital Signs: 02/05/22 08:20 Temperature 97.8 F Temperature Source Temporal Pulse Rate 75 Respiratory Rate 16 Blood Pressure 115/70 Blood Pressure Mean 85 Pulse Ox 100 Oxygen Delivery Method Room Air Positive well nourished and well developed General Appearance ED: well developed and NAD; Negative for pallor HEENT Reports moist mucous membranes HEENT Narrative: Ears normal. Nares patent. Uvula midline. No erythema exudate of posterior pharynx. Eyes PERRL and EOMs intact bilaterally General Eye ED: Negative for pale conjunctiva or scleral icterus Neck no lymphadenopathy and supple Resp normal respiratory effort and clear to auscultation bilaterally Cardio regular rate, regular rhythm, S1 normal heart sound, S2 normal heart sound and no murmurs GI normal to inspection, nondistended, normoactive bowel sounds, soft to palpation, non-tender, non-distended and no masses Back/Spine normal to inspection; Negative for no thoracic nor lumbar tenderness Back/Spine Narrative: Patient had pain lifting her right leg on her own. Patellar ankle reflex are 2+. EHLs intact. Sensation over L3-S1 dermatome is normal. DP and PT pulses palpable. Movement exacerbates her pain and specifically twisting and bending to the right. Cervical Spine: Negative for cervical spine tenderness Thoracic Spine / Upper Back: paraspinal muscle tenderness Lumbar Spine / Lower Back: ROM limited and straight leg raise negative bilaterally Extremity normal to inspection and no clubbing, cyanosis or edema General Extremety ED: Negative for edema or tenderness General Extremity: Negative for edema Neuro oriented x3 and no sensory deficits noted Sensorium / Orientation: alert Motor Exam: strength 5/5 throughout Deep Tendon Reflexes: Rt Patellar (L4): 2+, Lt Patellar (L4): 2+, Rt Ankle (S1): 2+ and Lt Ankle (S1): 2+ Deep Tendon Reflexes Back: Rt Patellar (L4): 2+, Lt Patellar (L4): 2+, Rt Ankle (S1): 2+ and Lt Ankle (S1): 2+ Plantar Reflex: Downgoing: bilateral (No clonus) Psych mental status grossly normal Skin no rashes or lesions noted and no wounds General Skin Exam: Negative for jaundice or pallor MDM MDM MDM Narrative Medical decision making narrative: History and physical consistent with muscular low back pain. However since she had mild CVA tenderness will obtain UA to rule out urinary tract infection since she has not urinated this morning. She was medicated with oral meds. Patient was reassessed at 0915. She is now writhing in bed. She cannot find a position of comfort. With evidence of a urinary tract infection and concern for obstructing ureteral stone will obtain urine culture, treat with a gram of Rocephin IV piggyback and obtain a CT of the abdomen and pelvis to rule out kidney stone. Interpretation by radiologist was noted. Clip of the right fallopian tube appears to have migrated superiorly. There is no evidence of renal or ureterolithiasis. There is no evidence of hydroureter or hydronephrosis. Plan is antibiotics and pain medicine. Lab Data Attestation: I reviewed the patient's lab results. Labs: Laboratory Results - last 24 hr 02/05/22 08:39 Urine Color Straw Urine Clarity Sl. Cloudy Urine pH 6.0 Ur Specific [place] 1.015 Urine Protein Negative Urine Glucose (UA) Normal Urine Ketones Negative Urine Occult Blood Negative Urine Nitrite Positive H Urine Bilirubin Negative Urine Urobilinogen Normal Ur Leukocyte Esterase 100 H Urine RBC 0 SEEN Urine WBC 0-5 SEEN Ur Squamous Epith Cells 5-10 SEEN Urine Bacteria 3+ Urine Mucus 0 SEEN Radiography Diagnostic Testing: Clinical Impression(s) from Imaging Studies Abdomen/Pelvis CT 02/05/22 09:18 IMPRESSION: Normal unenhanced CT of the abdomen and pelvis. Electronically Signed: Brendan Morrison MD at 9:50 EDT , Discharge Plan Triage Chief Complaint: Back ED Provider: Ciro Lara Dx/Rx/DC Orders Clinical Impression: Pyelonephritis of right kidney Instructions: ED Pyelonephritis, Female (Adult) Prescriptions: New sulfamethoxazole-trimethoprim [sulfamethoxazole-trimethoprim] 800-160 mg tablet 1 tab PO BID Qty: 20 0RF hydrocodone-acetaminophen [hydrocodone-acetaminophen] 5-325 mg tablet 1 tab PO Q6H PRN PRN (Reason: Pain) 3 Days Qty: 10 0RF No Action levetiracetam 500 mg tablet 750 mg PO BID Primary Care Provider: Care Physician,No Primary Referrals: Skip Chen MD [Non-Staff] - 3-5 Days Care Physician,No Primary [Primary Care Provider] - Disposition Disposition: Home, Self Care
[2022-02-05 08:45] LABS: Mucous, Urine 0 SEEN /hpf (<or=2+); Red Blood Cells-Urine 0 SEEN /hpf (0-5)
[2022-02-05 08:50] LABS: Color, Urine Straw (Yellow); Glucose, Dipstick Normal (Normal); Ketone-Dipstick Negative (Negative); Leukocyte Esterase-Dipstick 100 /ul (Negative); Nitrite-Dipstick Positive (Negative); Occult Blood-Urine Negative /ul (Negative); Protein-Dipstick Negative (Negative); Specific Gravity, Urine 1.015 (1.002-1.030); Urine Bilirubin Dipstick Negative (Negative); Urine Clarity Sl. Cloudy (Clear); Urine Urobilinogen Normal (Normal)
[2022-02-05 09:10] LABS: Bacteria 3+ /hpf (None Seen); Squamous Epithelial Cells - UA 5-10 SEEN /hpf (5-10)
[2022-02-05 09:11] LABS: White Blood Cells 0-5 SEEN /hpf (0-5)
--- NOTE | 2022-02-05 09:18 | CT_ITS ---
STUDY: CT ABDOMEN AND PELVIS WITHOUT CONTRAST REASON FOR EXAM: Female, 36 years old. Kidney Stone -- Status post bilateral tubal ligation RADIATION DOSAGE (If Supplied By Facility): CTDIvol = ( 6.76 ) mGy, DLP = ( 339.55 ) mGycm TECHNIQUE: Transaxial images were obtained from the dome of the diaphragm to the symphysis pubis without oral contrast, and without intravenous contrast. Sagittal and coronal images were reconstructed. Individualized dose optimization techniques were used for this CT. COMPARISON: None. FINDINGS: The visualized lung bases are unremarkable. The visualized portions of the heart are within normal limits. Normal liver. Normal gallbladder and extrahepatic biliary system. Normal spleen. Normal pancreas. Normal bilateral adrenal glands. Normal right kidney. Normal left kidney. Normal visualized stomach. Normal small intestine. Normal colon. The appendix is visualized and appears normal. Normal abdominal aorta. Normal inferior vena cava. Normal retroperitoneum. Normal urinary bladder. There is a small umbilical hernia containing fat. Normal osseous structures. CT/Abdomen/Pelvis without Cont IMPRESSION: Normal unenhanced CT of the abdomen and pelvis. Electronically Signed: Brendan Morrison MD at 9:50 EDT ,
[2022-02-05] MEDS: Ketorolac 15 MG/ML Vial IV (09:27)
[2022-02-05 10:05] VITALS: RESP 16
[2022-02-05] MEDS: Ceftriaxone 1 GM/50 ML BAG IV (10:19)
== END 2022-02-05 10:49 | disposition home or self-care (01) ==
PROVIDERS: Emergency Provider Emergency Medicine; Visit Provider Emergency Medicine
DX: N12 Tubulo-interstitial nephritis, not specified as acute or chronic (principal); R21 Rash and other nonspecific skin eruption
CPT/HCPCS: 74176; 81001; 87086; 87088; 87186; 99283

== ENCOUNTER 2022-06-17 10:26 | Emergency (ER) | payer MEDICAID, SELFPAY ==
[2022-06-17 10:27] VITALS: BP 130/83; PULSE 97; RESP 16; TEMP 37.2; O2SAT 99; BMI 24.7
[2022-06-17 10:30] VITALS: O2SAT 99
--- NOTE | 2022-06-17 10:44 | EDS_ITS ---
HPI History of Present Illness Chief Complaint: Shortness of Breath Informant: patient Onset/Context/Timing Onset: Days (2 days) Context: Gradual Onset Current Severity: Mild Maximum Severity: Moderate Narrative Narrative: Patient presents with cough and shortness of breath started 2 days ago. She states it got worse last night. She feels a burning sensation in her chest when she tries to take a deep breath. She had subjective fever at home. [facility] Medical History Anxiety Epilepsy Ureteral stone Home Medications levetiracetam 500 mg tablet 750 mg PO BID 08/25/21 [History Last Taken Unknown] omeprazole 40 mg capsule,delayed release 40 mg PO DAILY 4 weeks #28 caps 06/17/22 [Rx Last Taken Unknown] Allergy/AdvReac Type Severity Reaction Status Date / Time Bleach (Sodium Hypochlorite) Allergy Hives Verified 06/17/22 10:28 lamotrigine [From Lamictal] Allergy Rash Verified 06/17/22 10:28 tree and shrub pollen Allergy Hives Verified 06/17/22 10:28 Social History household members: spouse Smoking Status: Never smoker substance use type: does not use ROS ROS ED Constitutional Constitutional ED: Reports fever(s) and subjective; Denies chills Eyes Eyes: Denies change in vision or discharge from eye(s) ENT ENT ED: Denies discharge from eye(s), rhinorrhea or sore throat Cardiovascular Cardiovascular: Reports chest pain; Denies palpitations Respiratory/Chest Respiratory/Chest: Reports cough and dyspnea Gastrointestinal Gastrointestinal: Denies abdominal pain, diarrhea, nausea or vomiting Genitourinary Genitourinary ED: Denies difficulty urinating or dysuria Musculoskeletal Musculoskeletal: Reports myalgias; Denies back pain or extremity pain Integumentary Denies Abrasions or rash Neurologic Neurologic: Denies headache(s) or weakness Psychiatric Psychiatric: Denies anxiety or depression Allergic/Immunologic Allergic/Immunologic ED: Denies lip swelling or urticaria EXAM Physical Exam Const Vital Signs: 06/17/22 10:27 06/17/22 10:30 06/17/22 10:51 Temperature 98.9 F Temperature Source Temporal Pulse Rate 97 90 Respiratory Rate 16 18 Respiratory Effort Normal Respiratory Depth Normal Respiratory Pattern Normal Normal Blood Pressure 130/83 H Blood Pressure Mean 98 Pulse Ox 99 Oxygen Delivery Method Room Air Room Air Positive well nourished and well developed General Appearance ED: well developed HEENT Reports normocephalic and head/scalp atraumatic Eyes PERRL and EOMs intact bilaterally Neck supple Chest Wall inspection of chest normal and palpation of chest normal Resp normal respiratory effort and clear to auscultation bilaterally Cardio regular rate and regular rhythm GI normal to inspection, nondistended, normoactive bowel sounds Palpation: soft Extremity normal to inspection Neuro oriented x3 and no sensory deficits noted Sensorium / Orientation: alert Motor Exam: strength 5/5 throughout Psych mental status grossly normal Skin no rashes or lesions noted MDM MDM MDM Narrative Medical decision making narrative: Patient initially had aerosol treatment given along with chest x-ray. Swab for COVID and influenza ordered. Lab Data Labs: Laboratory Results - last 24 hr 06/17/22 06/17/22 11:41 11:41 WBC 4.1 L RBC 4.86 Hgb 8.0 L Hct 29.9 L MCV 61.5 L MCH 16.5 L MCHC 26.8 L RDW Std Deviation 38.0 RDW Coeff of Mikhail 17.9 H Plt Count 235 MPV 9.0 Immature Gran % (Auto) 0.000 Neut % (Auto) 61.7 Lymph % (Auto) 25.6 Swain % (Auto) 11.8 H Eos % (Auto) 0.2 Baso % (Auto) 0.7 Absolute Neuts (auto) 2.6 Absolute Lymphs (auto) 1.06 Nucleated RBC % 0 Sodium 136 Potassium 3.2 L Chloride 105 Carbon Dioxide 24.0 Anion Gap 7 BUN 12 Creatinine 0.81 Estim Creat Clear Calc 77.90 Est GFR (MDRD) Af Amer 101 Est GFR (MDRD) Non-Af 83 BUN/Creatinine Ratio 14.8 Glucose 89 Calcium 9.1 Total Bilirubin 0.30 Direct Bilirubin 0.11 AST 16 ALT 21 Alkaline Phosphatase 43 L Total Protein 7.6 Albumin 3.8 Globulin 3.8 Lipase 215 Radiography Diagnostic Testing: Clinical Impression(s) from Imaging Studies Chest X-Ray 06/17/22 11:25 IMPRESSION: Normal x-ray examination of the chest. Electronically Signed: Lyric Triana MD at 11:37 EST , Treatment and Re-Evaluation Narrative: Chest x-ray per my interpretation shows no focal infiltrate. Radiology interpretation is reviewed and agrees. Swab for COVID and influenza is negative. On repeat evaluation patient reported that her breathing was slightly improved with third breathing treatment, however she had gotten a spasm/cramp in the epigastric area making it difficult for her to move. Abdomen is examined and she has mild tenderness in the upper abdomen. At that time lab work was obtained including LFTs and lipase. CBC reveals low white count at 4.1. Hemoglobin is 8.0, consistent with her prior values. Chemistry studies reveal potassium slightly low at 3.2. LFTs and lipase are unremarkable. At this time patient will be given an albuterol inhaler and a dose of p.o. Protonix. I will write her for Prilosec at home. We discussed continued supportive care for her viral syndrome. Return instructions given. Discharge Plan Triage Chief Complaint: Shortness of Breath Other Complaint: Cough ED Provider: Georgina Whitley Dx/Rx/DC Orders Clinical Impression: Viral syndrome, Gastritis Instructions: ED Gastritis (Adult), ED Viral Syndrome (Adult) Prescriptions: New omeprazole 40 mg capsule,delayed release(DR/EC) 40 mg PO DAILY 28 Days Qty: 28 0RF No Action levetiracetam 500 mg tablet 750 mg PO BID Primary Care Provider: Care Physician,No Primary Referrals: Shazia Russo MD [Med Staff - Senior Customer Service Representative] - 1-2 Weeks Care Physician,No Primary [Primary Care Provider] - Disposition Disposition: Home, Self Care
[2022-06-17] MEDS: Ipratropium/Albuterol Sulfate 3 ML AMPUL.NEB INHALATION (10:50)
[2022-06-17 10:51] VITALS: PULSE 90; RESP 18
--- NOTE | 2022-06-17 11:25 | RAD_ITS ---
STUDY: X-RAY CHEST REASON FOR EXAM: Female, 36 years old. Sob TECHNIQUE: Single AP portable view of the chest. COMPARISON: November 23, 2021 chest x-ray FINDINGS: The lungs are clear and expanded. There is no demonstrated pleural abnormality. Normal size heart. Normal mediastinum and mikaela. Normal visualized pulmonary arteries. Normal visualized aortic arch and descending thoracic aorta. There are mild degenerative changes of the visualized thoracic spine. Normal visualized ribs, clavicles, and shoulders. There is no demonstrated abnormality of the visualized soft tissue structures of the upper abdomen. RAD/Chest 1 View (Portable) IMPRESSION: Normal x-ray examination of the chest. Electronically Signed: Lyric Triana MD at 11:37 EST ,
[2022-06-17 11:53] LABS: Absolute Lymphocyte Count 1.06 X10^3/uL (0.83-4.51); Absolute Neutrophil Count 2.6 X10^3/uL (2.0-7.7); Basophil# 0.03 X10^3/uL; Basophil% 0.7 % (0-1); Eosinophil# 0.01 X10^3/uL; Eosinophils% 0.2 % (0-5); Hematocrit 29.9 % (37-47); Lymphocyte # 1.06 X10^3/ul (0.83-4.51); Lymphocyte % 25.6 % (19-41); Mean Corp Hgb Conc 26.8 g/dL (32-36); Mean Corpuscular Hgb 16.5 pg (27.0-32.0); Mean Corpuscular Volume 61.5 fL (81-99); Monocyte# 0.49 X10^3/uL; Monocyte% 11.8 % (0-10); NRBC Flagged by Analyzer 0 % (0-5); Neutrophil # 2.55 X10^3/uL (2.7-7.7); Neutrophil % 61.7 % (47-70); Platelet Count 235 K/mm3 (150-450); RBC Distribution Width CV 17.9 % (11.6-14.6); Red Blood Count 4.86 M/mm3 (4.2-5.4); White Blood Count 4.1 K/mm3 (4.4-11.0)
[2022-06-17 12:07] LABS: AST(SGOT) 16 U/L (15-37); Alanine Aminotransfer ALT/SGPT 21 U/L (13-56); Albumin, Serum 3.8 g/dL (3.2-5.0); Alkaline Phosphatase 43 U/L (45-117); Anion Gap 7 (5-15); BUN 12 mg/dL (7-18); BUN/Creat Ratio 14.8 RATIO (10-20); Bilirubin, Direct 0.11 mg/dL (0.00-0.30); Calcium,Total 9.1 mg/dL (8.5-10.1); Chloride 105 mmol/L (98-107); Creatinine, Serum 0.81 mg/dL (0.55-1.02); EST Glomerular Filtration Rate 83 mL/min (>60); Est Glom Filt Rate - Afr Amer 101 mL/min (>60); Globulin 3.8 g/dL (2.2-4.2); Glucose 89 mg/dL (74-106); Lipase 215 U/L (73-393); Potassium 3.2 mmol/L (3.5-5.1); Protein, Total 7.6 g/dL (6.4-8.2); Sodium Level 136 mmol/L (136-145)
[2022-06-17 12:34] VITALS: BP 107/68; PULSE 83; RESP 18; O2SAT 100
[2022-06-17 12:41] VITALS: BP 101/47; PULSE 79; RESP 18; TEMP 35.9; O2SAT 97
[2022-06-17] MEDS: Albuterol Sulfate 8 gm Inhaler (60 puffs) 2 PUFF INHALATION (12:45)
[2022-06-17] MEDS: Pantoprazole Sodium 40 MG Tablet PO (12:45)
== END 2022-06-17 13:01 | disposition home or self-care (01) ==
PROVIDERS: Emergency Provider Emergency Medicine; Visit Provider Emergency Medicine
DX: B34.9 Viral infection, unspecified (principal); K29.70 Gastritis, unspecified, without bleeding; R06.02 Shortness of breath; R05.9 Cough, unspecified
CPT/HCPCS: 71045; 80048; 80076; 83690; 85025; 87428; 94640; 94664; 99284; A4216

== ENCOUNTER 2022-07-30 22:40 | Emergency (ER) | payer MEDICAID, SELFPAY ==
[2022-07-30 22:41] VITALS: BP 110/68; PULSE 114; RESP 22; TEMP 37.3; O2SAT 96; BMI 24.9
== END 2022-07-30 23:23 | disposition left against medical advice (07) ==
LOC: ED 23:26
DX: R11.2 Nausea with vomiting, unspecified (principal); Z53.21 Procedure and treatment not carried out due to patient leaving prior to being seen by health care provider

== ENCOUNTER 2022-11-26 10:46 | Emergency (ER) | payer MEDICAID, SELFPAY ==
[2022-11-26 10:47] VITALS: BP 131/72; PULSE 69; RESP 16; TEMP 36.2; O2SAT 100; BMI 25.7
[2022-11-26 11:34] LABS: Absolute Lymphocyte Count 1.73 X10^3/uL (0.83-4.51); Absolute Neutrophil Count 3.4 X10^3/uL (2.0-7.7); Basophil# 0.05 X10^3/uL; Basophil% 0.9 % (0-1); Eosinophil# 0.05 X10^3/uL; Eosinophils% 0.9 % (0-5); Hematocrit 29.4 % (37-47); Lymphocyte # 1.73 X10^3/ul (0.83-4.51); Lymphocyte % 30.9 % (19-41); Mean Corp Hgb Conc 27.2 g/dL (32-36); Mean Corpuscular Hgb 16.9 pg (27.0-32.0); Mean Corpuscular Volume 62.2 fL (81-99); Mean Platelet Vol. 8.9 fl (6.2-12.0); Monocyte% 7.1 % (0-10); NRBC Flagged by Analyzer 0 % (0-5); Neutrophil # 3.36 X10^3/uL (2.7-7.7); Platelet Count 239 K/mm3 (150-450); RBC Distribution Width SD 37.4 fl (35.1-43.9); Red Blood Count 4.73 M/mm3 (4.2-5.4); White Blood Count 5.6 K/mm3 (4.4-11.0)
[2022-11-26] MEDS: 0.9% Normal Saline 1,000 ML 1000 ML IV (11:36)
[2022-11-26 11:42] VITALS: BP 105/63; BP 114/83; BP 126/82; PULSE 56; PULSE 59; PULSE 72
[2022-11-26 11:43] LABS: Prothrombin Time (Protime)PT. 13.2 SECONDS (11.7-14.9)
[2022-11-26 11:44] LABS: Partial Thromboplast Time 30.6 Seconds (24.1-36.2)
[2022-11-26 11:46] LABS: Anion Gap 6 (5-15); BUN 15 mg/dL (7-18); BUN/Creat Ratio 17.4 RATIO (10-20); Calcium,Total 9.2 mg/dL (8.5-10.1); Chloride 107 mmol/L (98-107); Creatinine, Serum 0.86 mg/dL (0.55-1.02); EST Glomerular Filtration Rate 78 mL/min (>60); Est Glom Filt Rate - Afr Amer 94 mL/min (>60); Estimated Creatinine Clearance 72.65 ml/min; Glucose 78 mg/dL (74-106); Potassium 3.4 mmol/L (3.5-5.1); Sodium Level 140 mmol/L (136-145)
--- NOTE | 2022-11-26 11:52 | EDS_ITS ---
HPI History of Present Illness Chief Complaint: Dizziness Informant: patient Onset/Context/Timing Onset: Today Context: Sudden Onset Timing: Continuous Quality: Lightheaded Location: Head Worsened by: Closing her eyes Relieved by: Nothing Narrative Narrative: Patient presents with dizziness, shortness of breath, and headache that began today. Patient states it began rather suddenly while she was at work. Patient states she had lab work last week which showed a hemoglobin of 7.4. Patient states that she was told that if she developed any dizziness she should be seen in the emergency department for this. Patient states she feels lightheaded. Patient states it is worse whenever she closes her eyes. Patient states nothing seems to help with it. Patient does admit to some blurry vision and some shortness of breath. [facility] Medical History Anxiety Epilepsy Ureteral stone Home Medications levetiracetam 500 mg tablet 750 mg PO BID 08/25/21 [History Last Taken Unknown] omeprazole 40 mg capsule,delayed release 40 mg PO DAILY 4 weeks #28 caps 06/17/22 [Rx Last Taken Unknown] Allergy/AdvReac Type Severity Reaction Status Date / Time Bleach (Sodium Hypochlorite) Allergy Hives Verified 11/26/22 10:49 lamotrigine [From Lamictal] Allergy Rash Verified 11/26/22 10:49 tree and shrub pollen Allergy Hives Verified 11/26/22 10:49 Social History household members: spouse Smoking Status: Never smoker substance use type: does not use ROS ROS ED Constitutional Constitutional ED: Denies chills or fever(s) Eyes Eyes: Reports blurry vision; Denies diplopia ENT ENT ED: Denies rhinorrhea or sore throat Cardiovascular Cardiovascular: Denies chest pain or palpitations Respiratory/Chest Respiratory/Chest: Reports dyspnea; Denies cough Gastrointestinal Gastrointestinal: Denies nausea or vomiting Genitourinary Genitourinary ED: Denies dysuria or hematuria Musculoskeletal Musculoskeletal: Denies back pain or neck pain Integumentary Denies abscess or rash Neurologic Neurologic: Reports headache(s); Denies weakness Allergic/Immunologic Allergic/Immunologic ED: Denies mouth swelling or urticaria EXAM Physical Exam Const Vital Signs: 11/26/22 10:47 11/26/22 11:42 11/26/22 12:03 Temperature 97.2 F L Temperature Source Temporal Pulse Rate 69 Pulse Rate [Lying] 56 L Pulse Rate [Sitting (for 1 minute prior to obtaining)] 59 L Pulse Rate [Standing (for 1 minute prior to obtaining)] 72 Respiratory Rate 16 Respiratory Effort Normal Non-Labored Respiratory Pattern Normal Blood Pressure 131/72 H Blood Pressure [Lying] 105/63 Blood Pressure [Sitting (for 1 minute prior to obtaining)] 126/82 H Blood Pressure [Standing (for 1 minute prior to obtaining)] 114/83 H Blood Pressure Mean 91 Blood Pressure Mean [Lying] 77 Blood Pressure Mean [Sitting (for 1 minute prior to obtaining)] 96 Blood Pressure Mean [Standing (for 1 minute prior to obtaining)] 93 Pulse Ox 100 Oxygen Delivery Method Room Air 11/26/22 14:08 Temperature Temperature Source Pulse Rate 82 Pulse Rate [Lying] Pulse Rate [Sitting (for 1 minute prior to obtaining)] Pulse Rate [Standing (for 1 minute prior to obtaining)] Respiratory Rate 16 Respiratory Effort Respiratory Pattern Blood Pressure 136/77 H Blood Pressure [Lying] Blood Pressure [Sitting (for 1 minute prior to obtaining)] Blood Pressure [Standing (for 1 minute prior to obtaining)] Blood Pressure Mean Blood Pressure Mean [Lying] Blood Pressure Mean [Sitting (for 1 minute prior to obtaining)] Blood Pressure Mean [Standing (for 1 minute prior to obtaining)] Pulse Ox 97 Oxygen Delivery Method Positive well nourished and well developed General Appearance ED: well developed HEENT Reports moist mucous membranes Neck supple and no JVD Resp normal respiratory effort and clear to auscultation bilaterally Cardio regular rate, regular rhythm and no murmurs GI normal to inspection, nondistended, normoactive bowel sounds and non-tender Palpation: soft Extremity normal to inspection General Extremety ED: Negative for edema or tenderness General Extremity: Negative for edema Neuro oriented x3, CN's II-XII intact bilaterally and no sensory deficits noted Sensorium / Orientation: alert Motor Exam: strength 5/5 throughout Psych mental status grossly normal Skin no rashes or lesions noted MDM MDM MDM Narrative Medical decision making narrative: Differential diagnosis includes anemia, electrolyte abnormality, acute kidney injury, coagulopathy, and dehydration. CBC will be obtained to assess for anemia and leukocytosis. Basic metabolic profile will be obtained to assess for electrolyte abnormality and renal function. PT with INR and PTT will be obtained to assess for coagulopathy. Chest x-ray will be obtained to assess for pneumonia and congestive heart failure. Patient is PERC negative and has no risk factors for PE, therefore, I do not feel this is from a pulmonary embolus. Lab Data Attestation: I reviewed the patient's lab results. Lab results narrative: CBC was reviewed. Hemoglobin was 8.0 and hematocrit was 29.4. Basic metabolic profile was reviewed and was within normal limits. PT with INR and PTT were reviewed and were within normal limits. Labs: Laboratory Results - last 24 hr 11/26/22 11/26/22 11/26/22 11:25 11:25 11:25 WBC 5.6 RBC 4.73 Hgb 8.0 L Hct 29.4 L MCV 62.2 L MCH 16.9 L MCHC 27.2 L RDW Std Deviation 37.4 RDW Coeff of Mikhail 18.0 H Plt Count 239 MPV 8.9 Immature Gran % (Auto) 0.200 Neut % (Auto) 60.0 Lymph % (Auto) 30.9 Wilkin % (Auto) 7.1 Eos % (Auto) 0.9 Baso % (Auto) 0.9 Absolute Neuts (auto) 3.4 Absolute Lymphs (auto) 1.73 Nucleated RBC % 0 PT 13.2 INR 1.0 APTT 30.6 Sodium 140 Potassium 3.4 L Chloride 107 Carbon Dioxide 27.0 Anion Gap 6 BUN 15 Creatinine 0.86 Estim Creat Clear Calc 72.65 Est GFR (MDRD) Af Amer 94 Est GFR (MDRD) Non-Af 78 BUN/Creatinine Ratio 17.4 Glucose 78 Calcium 9.2 Urine Color Urine Clarity Urine pH Ur Specific Randolph Urine Protein Urine Glucose (UA) Urine Ketones Urine Occult Blood Urine Nitrite Urine Bilirubin Urine Urobilinogen Ur Leukocyte Esterase Urine RBC Urine WBC Ur Squamous Epith Cells Urine Bacteria Urine Mucus 11/26/22 12:00 WBC RBC Hgb Hct MCV MCH MCHC RDW Std Deviation RDW Coeff of Mikhail Plt Count MPV Immature Gran % (Auto) Neut % (Auto) Lymph % (Auto) Wilkin % (Auto) Eos % (Auto) Baso % (Auto) Absolute Neuts (auto) Absolute Lymphs (auto) Nucleated RBC % PT INR APTT Sodium Potassium Chloride Carbon Dioxide Anion Gap BUN Creatinine Estim Creat Clear Calc Est GFR (MDRD) Af Amer Est GFR (MDRD) Non-Af BUN/Creatinine Ratio Glucose Calcium Urine Color Straw Urine Clarity Sl. Cloudy Urine pH 6.0 Ur Specific Randolph 1.010 Urine Protein Negative Urine Glucose (UA) Normal Urine Ketones Negative Urine Occult Blood 10 H Urine Nitrite Positive H Urine Bilirubin Negative Urine Urobilinogen Normal Ur Leukocyte Esterase Negative Urine RBC 0-5 SEEN Urine WBC 0-5 SEEN Ur Squamous Epith Cells 5-10 SEEN Urine Bacteria 4+ Urine Mucus RARE Radiography Diagnostic Testing: Clinical Impression(s) from Imaging Studies Chest X-Ray 11/26/22 12:06 IMPRESSION: Normal x-ray examination of the chest. Electronically Signed: Onesimo Farrar MD at 12:28 EDT , PA and lateral chest x-ray was obtained. There are 2 views. On my independent interpretation, lung mcghee are clear. There is normal cardiac silhouette. Bony thorax is normal. There is no acute process noted. Radiologist also interpreted the x-ray and agrees. Treatment and Re-Evaluation :: Patient was given IV fluids. Orthostatic vital signs were reviewed and were normal. Patient was advised of her findings. Patient is feeling somewhat better on reevaluation. Patient was instructed to drink plenty of fluids. Patient was instructed to follow-up with her primary care physician in 5 to 7 days for further evaluation. Patient understood and was agreeable with the plan. All questions were answered. Discharge Plan Triage Chief Complaint: Dizziness ED Provider: Robert Belcher Dx/Rx/DC Orders Clinical Impression: Dizziness, Anemia Instructions: ED Anemia, Type Not Specified (Adult), ED Dizziness, Uncertain Cause Prescriptions: No Action levetiracetam 500 mg tablet 750 mg PO BID omeprazole 40 mg capsule,delayed release(DR/EC) 40 mg PO DAILY 28 Days Qty: 28 0RF Primary Care Provider: Care Physician,No Primary Referrals: Robert Pemberton MD [Med Staff - Design Intern] - 5-7 Days Care Physician,No Primary [Primary Care Provider] - Disposition Disposition: Home, Self Care Discharge Date/Time: 11/26/22 14:08
--- NOTE | 2022-11-26 12:06 | RAD_ITS ---
STUDY: X-RAY CHEST REASON FOR EXAM: Female, 37 years old. Dizziness. Dyspnea. TECHNIQUE: Single AP portable view of the chest. COMPARISON: Comparison is made with prior study dated June 17, 2022. FINDINGS: The lungs are clear and expanded. There is no demonstrated pleural abnormality. Normal size heart. Normal mediastinum and mikaela. Normal visualized pulmonary arteries. Normal visualized aortic arch and descending thoracic aorta. Normal visualized thoracic spine. Normal visualized ribs, clavicles, and shoulders. There is no demonstrated abnormality of the visualized soft tissue structures of the upper abdomen. RAD/Chest PA and Lateral IMPRESSION: Normal x-ray examination of the chest. Electronically Signed: Onesimo Farrar MD at 12:28 EDT ,
[2022-11-26 12:13] LABS: Color, Urine Straw (Yellow); Glucose, Dipstick Normal (Normal); Ketone-Dipstick Negative (Negative); Leukocyte Esterase-Dipstick Negative /ul (Negative); Nitrite-Dipstick Positive (Negative); Occult Blood-Urine 10 /ul (Negative); Protein-Dipstick Negative (Negative); Urine Bilirubin Dipstick Negative (Negative); Urine Clarity Sl. Cloudy (Clear); Urine Urobilinogen Normal (Normal)
[2022-11-26 12:20] LABS: Bacteria 4+ /hpf (None Seen); Mucous, Urine RARE /hpf (<or=2+); Red Blood Cells-Urine 0-5 SEEN /hpf (0-5); Squamous Epithelial Cells - UA 5-10 SEEN /hpf (5-10); White Blood Cells 0-5 SEEN /hpf (0-5)
[2022-11-26 14:08] VITALS: BP 136/77; PULSE 82; RESP 16; O2SAT 97
== END 2022-11-26 14:08 | disposition home or self-care (01) ==
PROVIDERS: Emergency Provider Emergency Medicine; Visit Provider Emergency Medicine
DX: R42 Dizziness and giddiness (principal); G40.909 Epilepsy, unspecified, not intractable, without status epilepticus; D64.9 Anemia, unspecified; Z79.899 Other long term (current) drug therapy; R06.02 Shortness of breath
CPT/HCPCS: 71046; 80048; 81001; 85025; 85610; 85730; 99284; A4216

== ENCOUNTER 2023-02-24 17:38 | Emergency (ER) | payer MEDICAID, SELFPAY ==
[2023-02-24 17:40] VITALS: BP 128/105; PULSE 86; RESP 18; TEMP 36.2; O2SAT 100
--- NOTE | 2023-02-24 17:53 | CT_ITS ---
STUDY: CT ABDOMEN AND PELVIS WITHOUT CONTRAST REASON FOR EXAM: Female, 37 years old. left flank pain RADIATION DOSAGE (If Supplied By Facility): CTDIvol = ( 6.96 ) mGy, DLP = ( 346.18 ) mGycm TECHNIQUE: Transaxial images were obtained from the dome of the diaphragm to the symphysis pubis without oral contrast, and without intravenous contrast. Sagittal and coronal images were reconstructed. Individualized dose optimization techniques were used for this CT. COMPARISON: 02/05/2022 FINDINGS: The visualized lung bases are unremarkable. The visualized portions of the heart are within normal limits. Normal liver. Normal gallbladder and extrahepatic biliary system. There is mild splenomegaly. Normal pancreas. Normal bilateral adrenal glands. Normal right kidney. Normal left kidney. Normal visualized stomach. Normal small intestine. Normal colon. The appendix is visualized and appears normal. Normal abdominal aorta. Normal inferior vena cava. Normal retroperitoneum. Normal urinary bladder. Status post bilateral tubal ligation. There is a small umbilical hernia containing fat. Mild levoscoliosis lumbar spine. CT/Abdomen/Pelvis without Cont IMPRESSION: No renal or ureteral stone. Mild splenomegaly. Electronically Signed: Brendan Morrison MD at 19:58 EDT ,
--- NOTE | 2023-02-24 17:54 | EX.ED.DYSGE1 ---
HPI <JAXON Angulo - Last Filed: 02/24/23 20:48> History of Present Illness Chief Complaint: Back Narrative Narrative: Patient has sudden onset left flank/low back pain that started an hour ago. Nothing makes it better or worse. She has no fever, chills, nausea or vomiting, or bladder or bowel changes. She has had kidney stones in the past which passed without intervention. PFSH <JAXON Angulo Last Filed: 02/24/23 20:48> PFSH Medical History Anxiety Epilepsy Ureteral stone Home Medications levetiracetam 500 mg tablet 750 mg PO BID 08/25/21 [History Last Taken Unknown] cephalexin 500 mg capsule 500 mg PO Q6 7 days #28 CAPSULES 02/24/23 [Rx Last Taken Unknown] hydrocodone-acetaminophen 5-325mg 5mg-325mg 1 tab PO Q6H PRN PRN Pain 3 days #10 TABLETS 02/24/23 [Rx Last Taken Unknown] ondansetron 4 mg disintegrating tablet 4 mg PO Q8H PRN PRN Nausea #10 tabs 02/24/23 [Rx Last Taken Unknown] Allergy/AdvReac Type Severity Reaction Status Date / Time Bleach (Sodium Hypochlorite) Allergy Hives Verified 02/24/23 17:40 lamotrigine [From Lamictal] Allergy Rash Verified 02/24/23 17:40 tree and shrub pollen Allergy Hives Verified 02/24/23 17:40 Social History household members: spouse Smoking Status: Never smoker substance use type: does not use ROS <JAXON Angulo - Last Filed: 02/24/23 20:48> ROS ED ROS Narrative Constitutional: Negative for fever, chills, malaise. CVS: Negative for chest pain. Respiratory: Negative for shortness of breath. GI: Negative for abdominal pain, nausea, vomiting. : Negative for dysuria, hematuria or frequency. EXAM <JAXON Angulo Last Filed: 02/24/23 20:48> Physical Exam Narrative Exam Narrative: CONST: Patient moving in bed appears uncomfortable. EYES: Normal inspection. NECK: Normal inspection. RESP: No respiratory distress, CTAB. CVS: Regular rate and rhythm, no murmur, no gallop. ABD: Soft and nontender, no guarding or rebound, nondistended. Back: Normal inspection, left CVA tenderness. SKIN: Color normal, no rash, warm, dry, intact. EXTREMITIES: Normal appearance, no pedal edema. NEURO: Oriented x4. PSYCH: Normal affect. Const Vital Signs: 02/24/23 17:40 Temperature 97.1 F L Temperature Source Temporal Pulse Rate 86 Respiratory Rate 18 Blood Pressure 128/105 H Blood Pressure Mean 112 Pulse Ox 100 Oxygen Delivery Method Room Air <Dr. Fabio Shah DO - Last Filed: 02/24/23 21:32> Physical Exam Const Vital Signs: 02/24/23 17:40 Temperature 97.1 F L Temperature Source Temporal Pulse Rate 86 Respiratory Rate 18 Blood Pressure 128/105 H Blood Pressure Mean 112 Pulse Ox 100 Oxygen Delivery Method Room Air MDM <JAXON Angulo - Last Filed: 02/24/23 20:48> [facility] MDM Narrative Medical decision making narrative: History gathered from: Patient and significant other Patient has sudden onset left flank pain. No other associated symptoms. She appears uncomfortable but nontoxic. Exam only notable for left CVA tenderness. Highest on the differential includes kidney stone versus pyelonephritis so labs and a CT were ordered. WBC count is 11.9, normal renal function, mild hypokalemia at 3.2. UA is consistent with infection and test is negative. CT shows no stone or acute findings. Clinically her symptoms are consistent with pyelonephritis and she was given IV analgesia and Rocephin. Her pain is well controlled and she is appropriate for outpatient management with Keflex 4 times daily, [place], and Zofran. I discussed return precautions and she was discharged in stable condition. Lab Data Attestation: I reviewed the patient's lab results. Labs: Laboratory Results - last 24 hr 02/24/23 02/24/23 18:15 18:23 WBC 11.9 H RBC 4.87 Hgb 13.5 Hct 39.0 MCV 80.1 L MCH 27.7 MCHC 34.6 RDW Std Deviation 52.3 H RDW Coeff of Mikhail 17.9 H Plt Count 322 MPV 8.5 Immature Gran % (Auto) 0.300 Neut % (Auto) 71.9 H Lymph % (Auto) 22.2 [place] % (Auto) 4.9 Eos % (Auto) 0.3 Baso % (Auto) 0.4 Absolute Neuts (auto) 8.6 H Absolute Lymphs (auto) 2.64 Nucleated RBC % 0 Sodium 143 Potassium 3.2 L Chloride 110 H Carbon Dioxide 25.0 Anion Gap 8 BUN 10 Creatinine 0.87 Est GFR (MDRD) Af Amer 93 Est GFR (MDRD) Non-Af 77 BUN/Creatinine Ratio 11.5 Glucose 86 Calcium 9.1 Urine Color Straw Urine Clarity Clear Urine pH 7.0 Ur Specific [place] 1.010 Urine Protein 30 H Urine Glucose (UA) Normal Urine Ketones Negative Urine Occult Blood 150 H Urine Nitrite Negative Urine Bilirubin Negative Urine Urobilinogen Normal Ur Leukocyte Esterase 500 H Urine RBC 0-5 SEEN Urine WBC 25-50 SEEN Ur Squamous Epith Cells 0-5 SEEN Urine Bacteria 1+ Urine Mucus 0 SEEN Urine Test Negative Radiography Diagnostic Testing: Clinical Impression(s) from Imaging Studies Abdomen/Pelvis CT 02/24/23 17:53 IMPRESSION: No renal or ureteral stone. Mild splenomegaly. Electronically Signed: Brendan oMrrison MD at 19:58 EDT , <Dr. Fabio Shah, DO - Last Filed: 02/24/23 21:32> [facility] Lab Data Labs: Laboratory Results - last 24 hr 02/24/23 02/24/23 18:15 18:23 WBC 11.9 H RBC 4.87 Hgb 13.5 Hct 39.0 MCV 80.1 L MCH 27.7 MCHC 34.6 RDW Std Deviation 52.3 H RDW Coeff of Mikhail 17.9 H Plt Count 322 MPV 8.5 Immature Gran % (Auto) 0.300 Neut % (Auto) 71.9 H Lymph % (Auto) 22.2 [place] % (Auto) 4.9 Eos % (Auto) 0.3 Baso % (Auto) 0.4 Absolute Neuts (auto) 8.6 H Absolute Lymphs (auto) 2.64 Nucleated RBC % 0 Sodium 143 Potassium 3.2 L Chloride 110 H Carbon Dioxide 25.0 Anion Gap 8 BUN 10 Creatinine 0.87 Est GFR (MDRD) Af Amer 93 Est GFR (MDRD) Non-Af 77 BUN/Creatinine Ratio 11.5 Glucose 86 Calcium 9.1 Urine Color Straw Urine Clarity Clear Urine pH 7.0 Ur Specific [place] 1.010 Urine Protein 30 H Urine Glucose (UA) Normal Urine Ketones Negative Urine Occult Blood 150 H Urine Nitrite Negative Urine Bilirubin Negative Urine Urobilinogen Normal Ur Leukocyte Esterase 500 H Urine RBC 0-5 SEEN Urine WBC 25-50 SEEN Ur Squamous Epith Cells 0-5 SEEN Urine Bacteria 1+ Urine Mucus 0 SEEN Urine Test Negative Radiography Diagnostic Testing: Clinical Impression(s) from Imaging Studies Abdomen/Pelvis CT 02/24/23 17:53 IMPRESSION: No renal or ureteral stone. Mild splenomegaly. Electronically Signed: Brendan Morrison MD at 19:58 EDT Reading Location ID and State: [facility] / [place] Tel , Service support , Treatment and Re-Evaluation Comments:: I have personally performed a face to face assessment of the patient and have reviewed the CHIQUITA Note. I performed a substantive portion of the visit including all aspects of the following. My bhat findings include: 37-year-old female sudden onset of left flank pain today. She has had no fevers. Tender to palpation in the left flank. Slight bump in white blood cell count and minor findings of infection on urine. CT of the abdomen pelvis is negative. We will treat this as urinary tract infection involving left kidney. Patient to follow-up return if worsening or concerns Discharge Plan Triage Chief Complaint: Back ED Midlevel Provider: Cathryn Torres ED Provider: Fabio Shah Dx/Rx/DC Orders Clinical Impression: Pyelonephritis of left kidney Instructions: ED Pyelonephritis, Female (Adult) Prescriptions: New cephalexin 500 mg capsule 500 mg PO Q6 7 Days Qty: 28 0RF ondansetron 4 mg tablet,disintegrating 4 mg PO Q8H PRN PRN (Reason: Nausea) Qty: 10 0RF hydrocodone-acetaminophen 5-325 mg tablet 1 tab PO Q6H PRN PRN (Reason: Pain) 3 Days Qty: 10 0RF No Action levetiracetam 500 mg tablet 750 mg PO BID Primary Care Provider: Care Physician,No Primary Referrals: Care Physician,No Primary [Primary Care Provider] - Activity Restrictions/Additional Instructions: You are being treated for pyelonephritis which is a kidney infection. This starts in the bladder and spreads upward. Take the antibiotics 4 times a day. I prescribed [place] for pain and you can also take ibuprofen 600 mg every 6 hours. Return to ER if symptoms worsen. Disposition Disposition: Home, Self Care Discharge Date/Time: 02/24/23 20:57
[2023-02-24 18:25] LABS: Absolute Lymphocyte Count 2.64 X10^3/uL (0.83-4.51); Absolute Neutrophil Count 8.6 X10^3/uL (2.0-7.7); Basophil# 0.05 X10^3/uL; Basophil% 0.4 % (0-1); Eosinophil# 0.04 X10^3/uL; Eosinophils% 0.3 % (0-5); Hemoglobin 13.5 g/dL (12.0-15.0); Lymphocyte # 2.64 X10^3/ul (0.83-4.51); Lymphocyte % 22.2 % (19-41); Mean Corp Hgb Conc 34.6 g/dL (32-36); Mean Corpuscular Hgb 27.7 pg (27.0-32.0); Mean Corpuscular Volume 80.1 fL (81-99); Mean Platelet Vol. 8.5 fl (6.2-12.0); Monocyte# 0.58 X10^3/uL; Monocyte% 4.9 % (0-10); NRBC Flagged by Analyzer 0 % (0-5); Neutrophil # 8.55 X10^3/uL (2.7-7.7); Neutrophil % 71.9 % (47-70); Platelet Count 322 K/mm3 (150-450); RBC Distribution Width CV 17.9 % (11.6-14.6); RBC Distribution Width SD 52.3 fl (35.1-43.9); Red Blood Count 4.87 M/mm3 (4.2-5.4); White Blood Count 11.9 K/mm3 (4.4-11.0)
[2023-02-24 18:32] LABS: Mucous, Urine 0 SEEN /hpf (<or=2+)
[2023-02-24 18:34] LABS: Color, Urine Straw (Yellow); Glucose, Dipstick Normal (Normal); Ketone-Dipstick Negative (Negative); Leukocyte Esterase-Dipstick 500 /ul (Negative); Nitrite-Dipstick Negative (Negative); Occult Blood-Urine 150 /ul (Negative); Protein-Dipstick 30 mg/dl (Negative); Urine Bilirubin Dipstick Negative (Negative); Urine Clarity Clear (Clear); Urine Urobilinogen Normal (Normal)
[2023-02-24] MEDS: Ketorolac 30 MG/ML Syringe IV (18:35)
[2023-02-24] MEDS: 0.9% Normal Saline 1,000 ML 999 ML IV (18:35)
[2023-02-24 18:37] LABS: Anion Gap 8 (5-15); BUN 10 mg/dL (7-18); BUN/Creat Ratio 11.5 RATIO (10-20); Calcium,Total 9.1 mg/dL (8.5-10.1); Chloride 110 mmol/L (98-107); Creatinine, Serum 0.87 mg/dL (0.55-1.02); EST Glomerular Filtration Rate 77 mL/min (>60); Est Glom Filt Rate - Afr Amer 93 mL/min (>60); Glucose 86 mg/dL (74-106); Potassium 3.2 mmol/L (3.5-5.1); Sodium Level 143 mmol/L (136-145)
[2023-02-24] MEDS: Morphine 4 MG/ML Syringe IV (18:41)
[2023-02-24] MEDS: Ondansetron 4 MG/2 ML Vial IV (18:41)
[2023-02-24 18:44] LABS: Bacteria 1+ /hpf (None Seen); Internal QC Validated? YES +Cl - CLEAR BKGD; Pregnancy, Urine Negative Negative; Record Kit Lot#,Urine Preg 667200; Red Blood Cells-Urine 0-5 SEEN /hpf (0-5); Squamous Epithelial Cells - UA 0-5 SEEN /hpf (5-10); White Blood Cells 25-50 SEEN /hpf (0-5)
[2023-02-24] MEDS: Ceftriaxone 1 GM/50 ML BAG IV (19:22)
[2023-02-24 20:11] VITALS: BMI 27.3
[2023-02-24] MEDS: Potassium Chloride Oral Tablet 20 MEQ 40 MEQ PO (20:11)
== END 2023-02-24 20:57 | disposition home or self-care (01) ==
PROVIDERS: Physician Assistant; Emergency Provider Emergency Medicine; Visit Provider Emergency Medicine
DX: N12 Tubulo-interstitial nephritis, not specified as acute or chronic (principal)
CPT/HCPCS: 74176; 80048; 81001; 81025; 85025; 87077; 87086; 87088; 87186; 99283; A4216; J2405

== ENCOUNTER 2023-09-22 18:26 | Inpatient (IN) | payer MEDICAID, SELFPAY ==
[2023-09-22 18:26] VITALS: BP 106/79; PULSE 74; RESP 16; TEMP 36.2; O2SAT 100; BMI 26.7
--- NOTE | 2023-09-22 18:51 | ED.VIS.FEGU ---
HPI <NITA Vela - Last Filed: 09/22/23 21:19> HPI - Female History of Present Illness Chief Complaint: Vag Bleeding Narrative Narrative: Patient is a 38-year-old female with history of epilepsy who takes Keppra, who presents to the emergency department with vaginal bleeding. Patient had a hysterectomy where the uterus was removed, however patient still has her ovaries on September 04, 2023. Patient did have some bleeding on 16 September which was 5 days ago, saw Dr. Acuna in the office, there might have been some sutures that have been dislodged, however the bleeding did stop, they were able to perform a medication swab in the area. Patient states that roughly 3 hours ago, while not being active, she had sudden onset of significant bleeding where she is going through 3 pads in 1 hour. She is here for evaluation. She states to have some lower abdominal cramping. PFSH <NITA Vela - Last Filed: 09/22/23 21:19> PFSH Medical History (Updated 09/22/23 @ 21:19 by NITA Vela) Anxiety Epilepsy Ganglion cyst Ureteral stone Home Medications levetiracetam 500 mg tablet 1,000 mg PO BID 08/25/21 [History Last Taken Unknown] Allergy/AdvReac Type Severity Reaction Status Date / Time Bleach (Sodium Hypochlorite) Allergy Hives Verified 09/22/23 18:30 lamotrigine [From Lamictal] Allergy Rash Verified 09/22/23 18:30 tree and shrub pollen Allergy Hives Verified 09/22/23 18:30 Surgical History (Updated 09/22/23 @ 21:12 by Mily Vásquez) H/O right knee surgery H/O: hysterectomy Previous section Social History household members: spouse Smoking Status: Never smoker substance use type: does not use ROS <NITA Vela - Last Filed: 09/22/23 21:19> ROS ED ROS Narrative Constitutional: Negative for fever, chills, weight loss, weakness Eyes: Negative for vision loss, vision change, double vision ENT: Negative for any sore throat, ear pain, congestion Cardiovascular: Negative for any chest pain, tightness, palpitations Respiratory: Negative for any cough, sputum production, hemoptysis, dyspnea, dyspnea on exertion, orthopnea Gastrointestinal: Negative for any nausea, vomiting, diarrhea, constipation, blood in stool, blood in vomit. Positive for lower abdominal pain : Negative for any urinary frequency, dysuria, retention, blood in urine. Positive vaginal bleeding Muscle skeletal: Negative for any neck pain, back pain Neurological: Negative for any headache, syncope, dizziness Skin: Negative for any rashes, itching, abrasions, lacerations Psychiatric: Negative for any depression, anxiety, stress, suicidal ideation, homicidal ideation Hematologic: Negative for any excessive bruising, easy bleeding EXAM <NITA Vela - Last Filed: 09/22/23 21:19> Physical Exam Narrative Exam Narrative: Vital signs reviewed. Patient is in no obvious distress. Patient's vital signs are stable. HEET: Head normocephalic atraumatic, TMs clear bilaterally. Posterior pharynx is clear, moist mucous membranes. Nares clear bilaterally. Neck: Supple with no lymphadenopathy or tenderness. No signs of meningismus. Cardiac: Regular rate and rhythm no murmurs gallops or rubs, equal peripheral pulses bilaterally. Respiratory: Lungs clear to auscultation bilaterally. No chest tenderness. Abdomen: Soft, nondistended. No abdominal bruit or pulsatile masses. No hepatosplenomegaly. Tenderness to the left lower abdomen, no peritoneal signs. Extremities: No peripheral edema, no signs of gross trauma or deformity. Active full range of motion of all extremities. Neuro: Cranial nerves II through XII intact, no focal neurological deficits. Skin: Clean dry and intact with no rash, purpura, petechiae, vesicles or pustules. Backs/flank: No CVA tenderness, no midline spinal tenderness, no deformity. Psych: Normal mood and affect. No SI, HI or acute psychosis. Const Vital Signs: 09/22/23 18:26 09/22/23 21:00 Temperature 97.2 F L Temperature Source Temporal Pulse Rate 74 Respiratory Rate 16 Blood Pressure 106/79 122/78 H Blood Pressure Mean 88 92 Pulse Ox 100 Oxygen Delivery Method Room Air Positive well nourished and well developed General Appearance ED: well developed <Dr. Larry Gamble MD - Last Filed: 09/22/23 19:22> Physical Exam Const Vital Signs: 09/22/23 18:26 09/22/23 21:00 Temperature 97.2 F L Temperature Source Temporal Pulse Rate 74 Respiratory Rate 16 Blood Pressure 106/79 122/78 H Blood Pressure Mean 88 92 Pulse Ox 100 Oxygen Delivery Method Room Air [facility] <Jose Guadalupe NietoNITA - Last Filed: 09/22/23 21:19> [facility] Lab Data Labs: Laboratory Results - last 24 hr 09/22/23 09/22/23 18:45 19:17 WBC 8.7 RBC 4.84 Hgb 14.1 Hct 42.3 MCV 87.4 MCH 29.1 MCHC 33.3 RDW Std Deviation 39.6 RDW Coeff of Mikhail 12.3 Plt Count 346 MPV 8.9 Immature Gran % (Auto) 0.200 Neut % (Auto) 62.0 Lymph % (Auto) 27.3 [place] % (Auto) 8.1 Eos % (Auto) 1.9 Baso % (Auto) 0.5 Absolute Neuts (auto) 5.4 Absolute Lymphs (auto) 2.39 Nucleated RBC % 0 Sodium 138 Potassium 3.7 Chloride 107 Carbon Dioxide 27.0 Anion Gap 4 L BUN 13 Creatinine 0.74 Estim Creat Clear Calc 93.87 Est GFR (MDRD) Af Amer 112 Est GFR (MDRD) Non-Af 92 BUN/Creatinine Ratio 17.6 Glucose 85 Calcium 9.2 Urine Color Red Urine Clarity Cloudy Urine pH 6.5 Ur Specific [place] 1.010 Urine Protein 500 H Urine Glucose (UA) Normal Urine Ketones 5 H Urine Occult Blood 250 H Urine Nitrite Negative Urine Bilirubin Negative Urine Urobilinogen Normal Ur Leukocyte Esterase 100 H Urine RBC > 100 SEEN Urine WBC 5-10 SEEN Ur Squamous Epith Cells 0-5 SEEN Amorphous Sediment 1+ URATE Urine Bacteria 0 SEEN Urine Mucus 0 SEEN Treatment and Re-Evaluation Narrative: Patient is in no obvious respiratory distress vital signs are stable. Patient presents to the emergency department with complaints of vaginal bleeding post hysterectomy on September 04, 2023. This is the patient's second time bleeding. Differential diagnosis includes surgical hemorrhage, fibroid, dehiscence of any sutures, tearing. I did speak with on-call GEOGRAPHIC INFORMATION SYSTEM ANALYST. They recommended a CT scan of the pelvis with IV contrast, I will to perform a pelvic exam. Patient was offered analgesic however refused at this time. Patient given IV fluids. Currently waiting for callback from GEOGRAPHIC INFORMATION SYSTEM ANALYST specialty. Laboratory values were unremarkable, hemoglobin 14.1, chemistries were unremarkable. I did perform a pelvic exam, however unfortunately there was so much blood, clot I cannot visualize any landmarks. I could not see the cuff. I spoke with Dr. Zeng regarding this. Radiologist call and speak with attending. Apparently there is a pelvic abscess. At this time, patient will be going to surgery by Dr. Zeng. I spoke with her, she will take the patient, I did offer to start antibiotics here however she would prefer to do it over in surgery because she will be given presurgery antibiotics. I spoke with the patient who is in agreement. <Dr. Larry Gamble MD - Last Filed: 09/22/23 19:22> MDM MDM Narrative Medical decision making narrative: I have personally performed a face to face assessment of the patient and have reviewed the CHIQUITA Note. I performed a substantive portion of the visit including all aspects of the following. My bhat findings include: History is spontaneous recurrent postoperative bleeding from the vagina since she had a hysterectomy. When she had a small minor bleeding earlier, her GEOGRAPHIC INFORMATION SYSTEM ANALYST was able to see the source of the bleeding that may have been related to a stitch and apply TXA to make it stop but it recurred again today and was heavy. Little lightheadedness, some abdominal pain, but no syncope. Exam is well-appearing, mildly tender lower abdomen but no surgical signs on exam. X Medical Decison Making: Check blood counts, give IV fluids and analgesics as needed, perform pelvic, CT to rule out disruption of the seal at the cuff, and discussed with GEOGRAPHIC INFORMATION SYSTEM ANALYST. Other additions or changes: [None] Lab Data Labs: Laboratory Results - last 24 hr 09/22/23 09/22/23 18:45 19:17 WBC 8.7 RBC 4.84 Hgb 14.1 Hct 42.3 MCV 87.4 MCH 29.1 MCHC 33.3 RDW Std Deviation 39.6 RDW Coeff of Mikhail 12.3 Plt Count 346 MPV 8.9 Immature Gran % (Auto) 0.200 Neut % (Auto) 62.0 Lymph % (Auto) 27.3 [place] % (Auto) 8.1 Eos % (Auto) 1.9 Baso % (Auto) 0.5 Absolute Neuts (auto) 5.4 Absolute Lymphs (auto) 2.39 Nucleated RBC % 0 Sodium 138 Potassium 3.7 Chloride 107 Carbon Dioxide 27.0 Anion Gap 4 L BUN 13 Creatinine 0.74 Estim Creat Clear Calc 93.87 Est GFR (MDRD) Af Amer 112 Est GFR (MDRD) Non-Af 92 BUN/Creatinine Ratio 17.6 Glucose 85 Calcium 9.2 Urine Color Red Urine Clarity Cloudy Urine pH 6.5 Ur Specific [place] 1.010 Urine Protein 500 H Urine Glucose (UA) Normal Urine Ketones 5 H Urine Occult Blood 250 H Urine Nitrite Negative Urine Bilirubin Negative Urine Urobilinogen Normal Ur Leukocyte Esterase 100 H Urine RBC > 100 SEEN Urine WBC 5-10 SEEN Ur Squamous Epith Cells 0-5 SEEN Amorphous Sediment 1+ URATE Urine Bacteria 0 SEEN Urine Mucus 0 SEEN Discharge Plan Triage Chief Complaint: Vag Bleeding ED Midlevel Provider: Jose Guadalupe Nieto ED Provider: Larry Gamble Dx/Rx/DC Orders Clinical Impression: Abscess of female pelvis, Abnormal vaginal bleeding Primary Care Provider: Care Physician,No Primary Disposition Disposition: Acute Care Hospital [facility]
--- NOTE | 2023-09-22 19:06 | CT_ITS ---
We are attempting to reach an attending provider to discuss findings. An addendum with communication details will be sent when the communication is complete. EXAM: CT PELVIS WITH INTRAVENOUS CONTRAST CLINICAL INDICATION: lower abdominal cramping TECHNIQUE: Helically acquired images were obtained of the pelvis with intravenous contrast. This CT exam was performed using one or more of the following dose reduction techniques: automated exposure control, adjustment of the mA and/or kV according to patient size, and/or use of iterative reconstruction technique. CONTRAST: IV 100mL [id number]-370 RADIATION DOSE: CTDIvol = 13.09 mGy, DLP = 449.47 mGy-cm COMPARISON: 9.3.23 FINDINGS: BOWEL: Unremarkable as visualized. No bowel distention. No focal inflammatory change. APPENDIX: Normal-appearing appendix. INTRAPERITONEAL SPACE: Unremarkable. No ascites or other fluid collection. No free air. BLADDER: Unremarkable. REPRODUCTIVE: Hysterectomy changes. 17 mm left ovarian cyst. Residual right tubal ligation clip. BONES/JOINTS: Unremarkable. No suspicious lytic or blastic abnormality. SOFT TISSUES: Umbilical hernia containing fat. LYMPH NODES: Unremarkable. No enlarged lymph nodes. OTHER FINDINGS: Pelvic abscess measures [address]/Pelvis WITH IV Contrast IMPRESSION: Pelvic abscess measures 57 x 35 mm. Electronically Signed: Kwaku Wilson MD at 19:51 EDT ,
[2023-09-22] MEDS: 0.9% Normal Saline (1000mL) 1,000 ML 1000 ML IV (19:13)
[2023-09-22 19:21] LABS: Bacteria 0 SEEN /hpf (None Seen); Mucous, Urine 0 SEEN /hpf (<or=2+)
[2023-09-22 19:22] LABS: Absolute Lymphocyte Count 2.39 X10^3/uL (0.83-4.51); Absolute Neutrophil Count 5.4 X10^3/uL (2.0-7.7); Basophil# 0.04 X10^3/uL; Basophil% 0.5 % (0-1); Eosinophil# 0.17 X10^3/uL; Eosinophils% 1.9 % (0-5); Hematocrit 42.3 % (37-47); Hemoglobin 14.1 g/dL (12.0-15.0); Lymphocyte # 2.39 X10^3/ul (0.83-4.51); Lymphocyte % 27.3 % (19-41); Mean Corp Hgb Conc 33.3 g/dL (32-36); Mean Corpuscular Hgb 29.1 pg (27.0-32.0); Mean Corpuscular Volume 87.4 fL (81-99); Mean Platelet Vol. 8.9 fl (6.2-12.0); Monocyte# 0.71 X10^3/uL; Monocyte% 8.1 % (0-10); NRBC Flagged by Analyzer 0 % (0-5); Neutrophil # 5.41 X10^3/uL (2.7-7.7); Platelet Count 346 K/mm3 (150-450); RBC Distribution Width CV 12.3 % (11.6-14.6); RBC Distribution Width SD 39.6 fl (35.1-43.9); Red Blood Count 4.84 M/mm3 (4.2-5.4); White Blood Count 8.7 K/mm3 (4.4-11.0)
[2023-09-22 19:23] LABS: Color, Urine Red (Yellow); Glucose, Dipstick Normal (Normal); Ketone-Dipstick 5 mg/dl (Negative); Leukocyte Esterase-Dipstick 100 /ul (Negative); Nitrite-Dipstick Negative (Negative); Occult Blood-Urine 250 /ul (Negative); Protein-Dipstick 500 mg/dl (Negative); Urine Bilirubin Dipstick Negative (Negative); Urine Clarity Cloudy (Clear); Urine Urobilinogen Normal (Normal); Urine pH 6.5 (5.0 - 8.0)
[2023-09-22 19:28] LABS: Anion Gap 4 (5-15); BUN 13 mg/dL (7-18); BUN/Creat Ratio 17.6 RATIO (10-20); Calcium,Total 9.2 mg/dL (8.5-10.1); Chloride 107 mmol/L (98-107); Creatinine, Serum 0.74 mg/dL (0.55-1.02); EST Glomerular Filtration Rate 92 mL/min (>60); Est Glom Filt Rate - Afr Amer 112 mL/min (>60); Estimated Creatinine Clearance 93.87 ml/min; Glucose 85 mg/dL (74-106); Potassium 3.7 mmol/L (3.5-5.1); Sodium Level 138 mmol/L (136-145)
[2023-09-22 19:44] LABS: Red Blood Cells-Urine > 100 SEEN /hpf (0-5); Squamous Epithelial Cells - UA 0-5 SEEN /hpf (5-10); White Blood Cells 5-10 SEEN /hpf (0-5)
[2023-09-22 19:45] LABS: Amorphous Sediment 1+ URATE
--- NOTE | 2023-09-22 20:48 | PCM.HP.BLA ---
History and Physical Date of Admission: 09/22/23 38-year-old female status post LAVH at [facility] on 09/04/2023 -reports had some bleeding on 09/17/23 was seen in the office had silver nitrate applied to her vaginal cuff and has since been doing fine. States today had heavy bleeding that began recently passing large clots. Patient states she is starting to feel dizzy when ambulating. She is having some cramping in the lower abdomen. She denies any fevers or abnormal vaginal discharge. She denies having anything inside the vagina or straining. She states no difficulty with urination or bowel movements. Patient offers no other concerns at this time. Exam: female in NAD abd: soft, non distended, non tender to palpation VE: Speculum - Large amount of bright red blood in vagina- large clots expelled- approximately 100cc expelled from vagina. Unable to see any active oozing from cuff. On palpation of cuff possible defect but difficult to see on speculum. a/p: 38yo s/p LAVH on 09/04/23 with delayed post vaginal bleeding 1) discussed with patient and significant other recommendation for return to the OR for exam under anesthesia with possible revision of vaginal cuff with diagnostic laparoscopy as there is significant amount of bleeding. Patient agreeable consent was signed. Risks were reviewed with the patient. Consent for blood products. 2) ancef 2 grams PRE OP 3) Nursing probation supervisor notified and anesthesia notified.
[2023-09-22 21:00] VITALS: BP 122/78
--- NOTE | 2023-09-22 21:12 | ED.RN ---
Jose Guadalupe CHUNG stated it was okay for the patient to take her home med of keppra 1000mg. Pt supplied her own med and took it.
[2023-09-22 21:15] VITALS: BP 109/73; PULSE 65; RESP 16; TEMP 36.7; O2SAT 99
[2023-09-22] MEDS: Cefotetan 2 GM in 0.9% Normal Saline (100mL MB+) 100 ML IV (21:18)
[2023-09-22 21:26] VITALS: BP 109/73; PULSE 69; RESP 16; TEMP 36.7; O2SAT 96; BMI 26.7
[2023-09-22] MEDS: Bupivacaine Mpf 0.5% 30 ML VIAL (23:19)
--- NOTE | 2023-09-22 23:20 | OP.PCM_ITS ---
Report of Operation Date of Procedure: 09/22/23 Pre-Operative Diagnosis: Vaginal Bleeding s/p hysterectomy on 09/04/23, pelvic a bscess Post-Operative Diagnosis: same, vaginal cuff dehiscence Surgery/Procedure Performed:: Exam under anesthesia, revision of vaginal cuff, Pelvic irrigation and insertion of Intraabdominal Drain Description of Surgical Findings:: Exam under anesthesia reveals vaginal cuff dehiscence active vaginal bleeding from the cuff. On laparoscopy they will stuck to the pelvic sidewalls as well as to the vaginal cuff. Prior to reapproximation of the vaginal cuff bowel was not apparent and good visualization of the cuff was appreciated. There was no evisceration of the bowel from the cuff. 15 Belgian MARYAM was placed in the left lower quadrant port. Surgeon: Janay Zeng nuclear supervising operator: None nuclear supervising operator: Dennis Bradford Type of Anesthesia: General and Local Special Medications: 0.5% marcaine Specimen's removed: none Drains: MARYAM Drain LLQ- 15 irish Estimated Blood Loss (mL): 100cc Fluids Replaced: 2000cc Description of Procedure: Patient was taken to the operating room where she was placed in the supine position anesthesia was induced. She was then prepped and draped in normal sterile fashion. Arms were tucked in usual position at her side. Her legs were then placed in lithotomy position. Bladder was drained prior to the start of the procedure. At this time weighted speculum was placed in the posterior fornix of the vagina and anterior retractor was placed. Active bleeding from the posterior vaginal cuff was appreciated. At this time it is apparent that the vaginal cuff sutures were not intact and vaginal cuff dehiscence was appreciated. There was no bowel appreciated extruding from the cuff. At this time Nunez catheter was placed. Aerobic and anaerobic cultures were obtained-at the cuff. At this time the vaginal cuff was grasped with Allis clamps. The old sutures were removed. At this time good visualization was still appreciated and Metzenbaum scissors were used to excise a very thin area along the edges of the cuff to ensure healthy viable edges. No obvious areas of necrotic tissue were appreciated. There was no well-formed pelvic abscess that was visualized however palpating past the cuff did feel like a hard mass. Again no bowel was palpable or visualized. Once the cuff edges were bleeding and viable tissue was exposed decision to close an interrupted fashion with 0 PDS in [id number] fashion. Excellent hemostasis was appreciated. Once the cuff was reapproximated attention was then turned to the abdominal portion of the procedure. 2 towel clamps were placed on either side of the umbilicus. Half percent Marcaine was injected intraumbilical. Scalpel was used to make a small incision and a 5 mm trocar was placed without difficulty. The abdomen was insufflated and upon inspection there was no well-formed pelvic abscess that could be seen however bowel was stuck to the pelvic area as well as to the left pelvic sidewall. There was no active bleeding intra-abdominally that was appreciated. At this time copious irrigation was performed with 1 L of normal saline and a 15 Belgian MARYAM drain was placed through the left lower quadrant port. The drain was then secured using a silk suture. At this time the ports were removed and the umbilical incision was closed using 4-0 Monocryl and Dermabond. Dry sterile dressing was applied to the MARYAM site. Patient will be started on Zosyn every 8 hours. The Nunez catheter was removed and the sponge stick in the vagina was removed. Vaginal sweep was negative. Instrument lap and needle count were correct x 2. Grafts/Implants Used: MARYAM drain Procedure Start Time: 22:13 Procedure Stop Time: 23:27 Complications none Admit VTE Documentation VTE Present on Admission: Yes VTE Mechan Device Prophylaxis: SCD's VTE Pharm Prophylaxis ordered?: No Reason prophylaxis not ordered:: Procedure Not Indicated
[2023-09-22] MEDS: Piperacil/Tazobactam 3.375 GM in 0.9% Normal Saline (50mL MB+) 50 ML IV (23:28)
[2023-09-22 23:40] VITALS: BP 101/51; BP 109/73; PULSE 71; RESP 16; TEMP 35.8; O2SAT 93
[2023-09-22 23:45] VITALS: BP 109/73; BP 123/70; PULSE 69; RESP 16; O2SAT 95
[2023-09-22] MEDS: 0.9% Normal Saline (1000mL) 1,000 ML 15 ML IV (23:53)
[2023-09-23] VITALS (16 sets, daily range): BP systolic 82–117; BP diastolic 52–73; PULSE 49–74; RESP 10–18; TEMP 36.1–37.1; O2SAT 24–100; BMI 29.7
--- NOTE | 2023-09-23 01:05 | SUR.PHASEI ---
DINO RN TRANSPORTING PATIENT TO PCU WHEN PT BECAME UNRESPONSIVE. PT BROUGHT BACK TO PACU AND PULSE OX WAS 24% AT 0040, WE BEGAN BAGGING.DR QUINONES MADE AWARE AND HE CALLED [facility]. DOMINIC HARMON CALLED TO GET MORE HELP. CODE TEAM ARRIVED AND PT WAS BEGINNING TO AROUSE, PT GIVEN 0.1MG NARCAN AT 0045. PER DR QUINONES, MONITOR PATIENT IN PACU AT LEAST ONE HOUR AFTER NARCAN ADMINISTRATION. BOYFRIEND NOTIFIED IN WAITING ROOM.
[2023-09-23] MEDS: 0.9% Normal Saline (1000mL) 1,000 ML 15 ML IV (01:16)
--- NOTE | 2023-09-23 01:22 | SUR.PHASEI ---
Patient back in phase 1 at 0040
--- NOTE | 2023-09-23 01:32 | SUR.PHASEI ---
0040: This nurse started to transport patient up to PCU at 0036. Patient did not converse with nurse upon leaving pacu doors. This nurse attempted to arouse patient with no response. Immediately pulled back to pacu and placed on monitor at 0040. Pulse Ox 24% noted, started ambu bag and patient never lost a pulse. code blue button pressed for assistance in case patient continued to decline. Saturations returned to 100% promptly, see documentation. Dr. Freeman notified via phone. Ann Martin CRNA, responded to bedside. PVCs noted on monitor, and inverted T waves were present. T waves normalized. 0045; 0.1mg narcan given per order from dr. freeman. EKG rhythm saved in chart. Respiratory distress d/t medication administration in pacu. Patient monitored in PACU for an additional hour after narcan administration. Patient on continuous pulse ox per order. etCO2 monitored in pacu.
[2023-09-23] MEDS: oxyCODONE 5 MG Tablet PO ×5 (02:32→22:13)
[2023-09-23] MEDS: Acetaminophen 500 MG Tablet 1000 MG PO ×4 (02:32→18:03)
[2023-09-23 02:52] LABS: Absolute Lymphocyte Count 0.91 X10^3/uL (0.83-4.51); Absolute Neutrophil Count 11.5 X10^3/uL (2.0-7.7); Basophil# 0.04 X10^3/uL; Basophil% 0.3 % (0-1); Eosinophil# 0.01 X10^3/uL; Eosinophils% 0.1 % (0-5); Hemoglobin 11.7 g/dL (12.0-15.0); Lymphocyte # 0.91 X10^3/ul (0.83-4.51); Lymphocyte % 7.1 % (19-41); Mean Corp Hgb Conc 32.5 g/dL (32-36); Mean Corpuscular Hgb 28.8 pg (27.0-32.0); Mean Corpuscular Volume 88.7 fL (81-99); Mean Platelet Vol. 8.7 fl (6.2-12.0); Monocyte# 0.17 X10^3/uL; Monocyte% 1.3 % (0-10); NRBC Flagged by Analyzer 0 % (0-5); Neutrophil # 11.53 X10^3/uL (2.7-7.7); Neutrophil % 90.6 % (47-70); Platelet Count 296 K/mm3 (150-450); RBC Distribution Width CV 12.3 % (11.6-14.6); Red Blood Count 4.06 M/mm3 (4.2-5.4); White Blood Count 12.7 K/mm3 (4.4-11.0)
[2023-09-23 03:23] LABS: Anion Gap 6 (5-15); BUN 10 mg/dL (7-18); BUN/Creat Ratio 8.9 RATIO (10-20); Calcium,Total 7.4 mg/dL (8.5-10.1); Chloride 111 mmol/L (98-107); Creatinine, Serum 1.12 mg/dL (0.55-1.02); EST Glomerular Filtration Rate 57 mL/min (>60); Est Glom Filt Rate - Afr Amer 69 mL/min (>60); Estimated Creatinine Clearance 65.31 ml/min; Glucose 153 mg/dL (74-106); Potassium 4.2 mmol/L (3.5-5.1); Sodium Level 141 mmol/L (136-145)
[2023-09-23] MEDS: 0.9% Normal Saline (1000mL) 1,000 ML 150 ML IV ×3 (04:11→17:56)
[2023-09-23] MEDS: Piperacil/Tazobactam 3.375 GM in 0.9% Normal Saline (50mL MB+) 50 ML IV ×3 (05:33→21:37)
--- NOTE | 2023-09-23 08:34 | PN.OBGYN_ITS ---
Subjective Subjective Patient doing ok this morning. She has lower pelvic and vaginal pain. Pain is controlled. Ambulating without difficulty. With urination she feels it is difficult to initiate a urinary stream due to pain and discomfort when up out of bed. Vaginal bleeding scant. Denies fevers, chills, CP, SOB, leg pain, lightheadedness, dizziness. South clear liquids without N/V. Not yet passing flatus. Objective Data Objective Data Vital Signs: Vital Signs Temp Pulse Resp BP Pulse Ox O2 Del Method O2 Flow Rate 97.5 F L 67 14 91/66 100 Room Air 1 09/23/23 02:43 09/23/23 02:43 09/23/23 02:43 09/23/23 02:43 09/23/23 02:43 09/23/23 07:53 09/23/23 04:29 Oxygen Flow Rate (L/min) 1 Oxygen Delivery Method Room Air Weight: 168 lb 3.403 oz Body Mass Index (BMI) 29.7 Intake & Output: Intake and Output for Last 24 Hours 09/21/23 09/22/23 09/23/23 23:59 23:59 23:59 Intake Total 1150 / 1150 2093.5 / 2093.5 Output Total 400 / 400 740 / 740 Balance 750 / 750 1353.5 / 1353.5 Lab / Micro Data 09/22/23 18:45 09/23/23 02:40 Labs: Laboratory Results - last 24 hr 09/22/23 02:40: WBC 12.7 H, RBC 4.06 L, Hgb 11.7 L, Hct 36.0 L, MCV 88.7, MCH 28.8, MCHC 32.5, RDW Std Deviation 40.0, RDW Coeff of Mikhail 12.3, Plt Count 296, MPV 8.7, Immature Gran % (Auto) 0.600, Neut % (Auto) 90.6 H, Lymph % (Auto) 7.1 L, [place] % (Auto) 1.3, Eos % (Auto) 0.1, Baso % (Auto) 0.3, Absolute Neuts (auto) 11.5 H, Absolute Lymphs (auto) 0.91, Nucleated RBC % 0 09/22/23 18:45: WBC 8.7, RBC 4.84, Hgb 14.1, Hct 42.3, MCV 87.4, MCH 29.1, MCHC 33.3, RDW Std Deviation 39.6, RDW Coeff of Mikhail 12.3, Plt Count 346, MPV 8.9, Immature Gran % (Auto) 0.200, Neut % (Auto) 62.0, Lymph % (Auto) 27.3, [place] % (Auto) 8.1, Eos % (Auto) 1.9, Baso % (Auto) 0.5, Absolute Neuts (auto) 5.4, Absolute Lymphs (auto) 2.39, Nucleated RBC % 0, Sodium 138, Potassium 3.7, Chloride 107, Carbon Dioxide 27.0, Anion Gap 4 L, BUN 13, Creatinine 0.74, Estim Creat Clear Calc 93.87, Est GFR (MDRD) Af Amer 112, Est GFR (MDRD) Non-Af 92, BUN/Creatinine Ratio 17.6, Glucose 85, Calcium 9.2 09/22/23 19:17: Urine Color Red, Urine Clarity Cloudy, Urine pH 6.5, Ur Specific [place] 1.010, Urine Protein 500 H, Urine Glucose (UA) Normal, Urine Ketones 5 H , Urine Occult Blood 250 H, Urine Nitrite Negative, Urine Bilirubin Negative, Urine Urobilinogen Normal, Ur Leukocyte Esterase 100 H, Urine RBC > 100 SEEN, Urine WBC 5-10 SEEN, Ur Squamous Epith Cells 0-5 SEEN, Amorphous Sediment 1+ URATE, Urine Bacteria 0 SEEN, Urine Mucus 0 SEEN 09/23/23 02:40: Sodium 141, Potassium 4.2, Chloride 111 H, Carbon Dioxide 24.0, Anion Gap 6, BUN 10, Creatinine 1.12 H, Estim Creat Clear Calc 65.31, Est GFR (MDRD) Af Amer 69, Est GFR (MDRD) Non-Af 57 L, BUN/Creatinine Ratio 8.9 L, Glucose 153 H, Calcium 7.4 L Physical Exam Const alert and no apparent distress General Appearance: comfortable HEENT normocephalic Resp normal respiratory effort GI soft to palpation and non-distended GI Narrative: Moderate tenderness across lower pelvis. No rebounding, no guarding, no rigidity. Non acute. Incisions c/d/i. MARYAM drain with minimal SS drainage. Extremity normal to inspection and no calf tenderness Extremity Narrative: SCD's in place Assessment & Plan (1) Post-operative state: PLAN: POD#1 s/p repair of vaginal cuff dehiscence. Repeat blood work ordered for this morning, and tomorrow morning. Cont antibiotics for [address] results not back so will call radiology today for a final read. Anticipate possible discharge to home tomorrow. Reviewed post operative restrictions. (2) Dehiscence of vaginal cuff: (3) S/P hysterectomy:
[2023-09-23 08:40] LABS: Absolute Lymphocyte Count 0.74 X10^3/uL (0.83-4.51); Absolute Neutrophil Count 11.5 X10^3/uL (2.0-7.7); Basophil# 0.02 X10^3/uL; Basophil% 0.2 % (0-1); Eosinophil# 0.01 X10^3/uL; Eosinophils% 0.1 % (0-5); Hematocrit 37.3 % (37-47); Hemoglobin 12.1 g/dL (12.0-15.0); Lymphocyte # 0.74 X10^3/ul (0.83-4.51); Lymphocyte % 5.8 % (19-41); Mean Corp Hgb Conc 32.4 g/dL (32-36); Mean Corpuscular Hgb 29.2 pg (27.0-32.0); Mean Corpuscular Volume 90.1 fL (81-99); Mean Platelet Vol. 9.9 fl (6.2-12.0); Monocyte# 0.22 X10^3/uL; Monocyte% 1.7 % (0-10); NRBC Flagged by Analyzer 0 % (0-5); Neutrophil # 11.49 X10^3/uL (2.7-7.7); Neutrophil % 90.5 % (47-70); POSITIVE COUNT YES; RBC Distribution Width CV 12.4 % (11.6-14.6); RBC Distribution Width SD 40.9 fl (35.1-43.9); Red Blood Count 4.14 M/mm3 (4.2-5.4); White Blood Count 12.7 K/mm3 (4.4-11.0)
[2023-09-23 09:26] LABS: Differential Indicated SCAN CRITERIA MET
[2023-09-23 09:27] LABS: Platelet Estimate ADEQUATE (ADEQ)
[2023-09-23] MEDS: levETIRAcetam 500 MG Tablet PO ×2 (10:05→21:36)
[2023-09-23] MEDS: Ibuprofen 600 MG Tablet PO ×2 (10:05→17:10)
[2023-09-23] MEDS: Ensure Plus High Protein 120 ML LIQUID PO ×2 (10:06→18:04)
[2023-09-23] MEDS: Docusate Sodium 100 MG Capsule PO ×2 (10:06→21:36)
--- NOTE | 2023-09-23 11:58 | EKG12_ITS ---
Test Reason : Blood Pressure : / mmHG Vent. Rate : 055 BPM Atrial Rate : 055 BPM P-R Int : 136 ms QRS Dur : 072 ms QT Int : 446 ms P-R-T Axes : 070 052 062 degrees QTc Int : 426 ms Sinus bradycardia Nonspecific T wave abnormality Abnormal ECG Confirmed by Fermin Haro ([id number]), science editor SARITA DIEZ ([id number]) on 09/24/2023 8:10:11 AM Referred By: KASSY Confirmed By:Fermin Haro
--- NOTE | 2023-09-23 12:51 | PCM.PN.OB ---
Subjective Subjective Nursing staff called given patient's pain. At bedside to check on patient. She reports the pain is in the right lower quadrant of her pelvis. The pain is mostly with ambulation and movement. She does not want additional pain medication at this time. She felt chills earlier that then resolved. Otherwise denies feeling feverish or feeling chills. She has had some clears without nausea or vomiting. No flatus. She feels urination has improved. She is able to void without any difficulty initiating urinary stream, and she feels a full urinary stream when she voids. Vaginal bleeding is scant. Objective Data Objective Data Vital Signs: Vital Signs Temp Pulse Resp BP Pulse Ox O2 Del Method O2 Flow Rate 97.7 F L 56 L 16 99/61 99 Room Air 1 09/23/23 10:09/23/23 10:09/23/23 10:09/23/23 10:09/23/23 10:09/23/23 10:00 09/23/23 04:29 Oxygen Flow Rate (L/min) 1 Oxygen Delivery Method Room Air Weight: 168 lb 3.403 oz Body Mass Index (BMI) 29.7 Intake & Output: Intake and Output for Last 24 Hours 09/21/23 09/22/23 09/23/23 23:59 23:59 23:59 Intake Total 1150 / 1150 3076.0 / 3076.0 Output Total 400 / 400 740 / 740 Balance 750 / 750 2336.0 / 2336.0 Lab / Micro Data 09/23/23 06:10 09/23/23 02:40 Labs: Laboratory Results - last 24 hr 09/22/23 02:40: WBC 12.7 H, RBC 4.06 L, Hgb 11.7 L, Hct 36.0 L, MCV 88.7, MCH 28.8, MCHC 32.5, RDW Std Deviation 40.0, RDW Coeff of Mikhail 12.3, Plt Count 296, MPV 8.7, Immature Gran % (Auto) 0.600, Neut % (Auto) 90.6 H, Lymph % (Auto) 7.1 L, [place] % (Auto) 1.3, Eos % (Auto) 0.1, Baso % (Auto) 0.3, Absolute Neuts (auto) 11.5 H, Absolute Lymphs (auto) 0.91, Nucleated RBC % 0 09/22/23 18:45: WBC 8.7, RBC 4.84, Hgb 14.1, Hct 42.3, MCV 87.4, MCH 29.1, MCHC 33.3, RDW Std Deviation 39.6, RDW Coeff of Mikhail 12.3, Plt Count 346, MPV 8.9, Immature Gran % (Auto) 0.200, Neut % (Auto) 62.0, Lymph % (Auto) 27.3, [place] % (Auto) 8.1, Eos % (Auto) 1.9, Baso % (Auto) 0.5, Absolute Neuts (auto) 5.4, Absolute Lymphs (auto) 2.39, Nucleated RBC % 0, Sodium 138, Potassium 3.7, Chloride 107, Carbon Dioxide 27.0, Anion Gap 4 L, BUN 13, Creatinine 0.74, Estim Creat Clear Calc 93.87, Est GFR (MDRD) Af Amer 112, Est GFR (MDRD) Non-Af 92, BUN/Creatinine Ratio 17.6, Glucose 85, Calcium 9.2 09/22/23 19:17: Urine Color Red, Urine Clarity Cloudy, Urine pH 6.5, Ur Specific [place] 1.010, Urine Protein 500 H, Urine Glucose (UA) Normal, Urine Ketones 5 H, Urine Occult Blood 250 H, Urine Nitrite Negative, Urine Bilirubin Negative, Urine Urobilinogen Normal, Ur Leukocyte Esterase 100 H, Urine RBC > 100 SEEN, Urine WBC 5-10 SEEN, Ur Squamous Epith Cells 0-5 SEEN, Amorphous Sediment 1+ URATE, Urine Bacteria 0 SEEN, Urine Mucus 0 SEEN 09/23/23 02:40: Sodium 141, Potassium 4.2, Chloride 111 H, Carbon Dioxide 24.0, Anion Gap 6, BUN 10, Creatinine 1.12 H, Estim Creat Clear Calc 65.31, Est GFR (MDRD) Af Amer 69, Est GFR (MDRD) Non-Af 57 L, BUN/Creatinine Ratio 8.9 L, Glucose 153 H, Calcium 7.4 L 09/23/23 06:10: WBC 12.7 H, RBC 4.14 L, Hgb 12.1, Hct 37.3, MCV 90.1, MCH 29.2, MCHC 32.4, RDW Std Deviation 40.9, RDW Coeff of Mikhail 12.4, Plt Count , MPV 9.9, Immature Gran % (Auto) 1.700 H, Neut % (Auto) 90.5 H, Lymph % (Auto) 5.8 L, [place] % (Auto) 1.7, Eos % (Auto) 0.1, Baso % (Auto) 0.2, Absolute Neuts (auto) 11.5 H, Absolute Lymphs (auto) 0.74 L, Nucleated RBC % 0, Platelet Estimate ADEQUATE Micro: Microbiology 09/22/23 23:28 Incision/Surgical Site Gram Stain - Final Radiography Diagnostic Testing: Radiology Impression Pelvis CT 09/22/23 19:06 IMPRESSION: Pelvic abscess measures 57 x 35 mm. N.B. : The above Results were Read Back by Kwaku Wilson MD to Jez Fountain MD, and understanding confirmed on 09/22/2023 20:27:31 (ET). Electronically Signed: Kwaku Wilson MD at 19:51 EDT , Physical Exam Const alert and no apparent distress Constitutional Narrative: She appears well and is on her phone upon entering the room and resting comfortably General Appearance: comfortable HEENT normocephalic Resp normal respiratory effort GI soft to palpation and non-distended GI Narrative: No rebounding, no guarding, no rigidity. +Moderate tenderness across lower pelvis and mostly in RLQ. Incision are c/d/i. MARYAM drain with about 10 cc of SS fluid present Assessment & Plan (1) S/P hysterectomy: (2) Dehiscence of vaginal cuff: (3) Post-operative state: PLAN: At bedside to check on pt given pain. Currently receiving Oxycodone q 4 hours and Ibuprofen q 6 hours. Discussed option for IV Dilaudid for breakthrough but pt does not want additional pain medication at this time. WBC slightly elevated and likely due to being post op. Hemoglobin stable. Elevation in serum Creatinine likely secondary to Zosyn. Abdominal exam is not acute and pt is well appearing. CT scan report from admission reviewed and unremarkable other than abscess noted. She remains afebrile and VSS. Stat repeat labs ordered. Discussed with pt pending labs and pain control throughout the day, may need repeat CT scan. Encouraged continued ambulation.
[2023-09-23 13:08] LABS: Absolute Lymphocyte Count 1.96 X10^3/uL (0.83-4.51); Absolute Neutrophil Count 13.1 X10^3/uL (2.0-7.7); Basophil# 0.02 X10^3/uL; Basophil% 0.1 % (0-1); Hematocrit 35.3 % (37-47); Hemoglobin 11.8 g/dL (12.0-15.0); Lymphocyte # 1.96 X10^3/ul (0.83-4.51); Lymphocyte % 12.1 % (19-41); Mean Corp Hgb Conc 33.4 g/dL (32-36); Mean Corpuscular Hgb 28.6 pg (27.0-32.0); Mean Corpuscular Volume 85.7 fL (81-99); Mean Platelet Vol. 8.8 fl (6.2-12.0); Monocyte# 1.07 X10^3/uL; Monocyte% 6.6 % (0-10); NRBC Flagged by Analyzer 0 % (0-5); Neutrophil # 13.11 X10^3/uL (2.7-7.7); Neutrophil % 80.8 % (47-70); Platelet Count 344 K/mm3 (150-450); RBC Distribution Width CV 12.3 % (11.6-14.6); RBC Distribution Width SD 38.4 fl (35.1-43.9); Red Blood Count 4.12 M/mm3 (4.2-5.4); White Blood Count 16.2 K/mm3 (4.4-11.0)
[2023-09-23 13:24] LABS: AST(SGOT) 10 U/L (15-37); Alanine Aminotransfer ALT/SGPT 13 U/L (13-56); Albumin, Serum 3.2 g/dL (3.2-5.0); Alkaline Phosphatase 53 U/L (45-117); Anion Gap 9 (5-15); BUN 7 mg/dL (7-18); BUN/Creat Ratio 8.7 RATIO (10-20); Calcium,Total 8.5 mg/dL (8.5-10.1); Chloride 108 mmol/L (98-107); EST Glomerular Filtration Rate 84 mL/min (>60); Est Glom Filt Rate - Afr Amer 102 mL/min (>60); Estimated Creatinine Clearance 91.43 ml/min; Globulin 3.2 g/dL (2.2-4.2); Glucose 89 mg/dL (74-106); Protein, Total 6.4 g/dL (6.4-8.2); Sodium Level 139 mmol/L (136-145)
--- NOTE | 2023-09-23 14:45 | CASEMGMT ---
RN CM Face to Face with patient for initial transition planning/care coordination assessment. RN CM introduced self and role at [facility]. Patient lying in bed, alert and oriented, boyfriend at bedside. Patient willing to participate in assessment and is able to answer all questions appropriately. Care providers, pharmacy, and demographics verified. PCP: April Specialists: Armand, CREDIT ASSISTANT; Chiqui, neurology [place] Preferred Pharmacy: [facility] Insurance: [employer] Prescription Benefit: yes Living Will/HPOA: none LNOK: daughter, boyfriend Living Arrangements: Patient lives with boyfriend and 4 children (2 adult, 2 minor children-oldest daughter caring for siblings.) Patient lives in a single story with ramp to enter. Patient is independent at home. Transportation: self, boyfriend, daughter DME/HHC: Patient has shower chair, raised toilet, cane, crutches, walker. No previous HHC or SNF Patient wishes to discharge home, denies need for home health at this time. Patient states she has no further needs or concerns at this time. CM to follow for discharge planning needs that may arise. Disposition Plan: Patient to discharge home with family support and follow-up plans in place. Christen MATHEW, RN, CM
[2023-09-23] MEDS: HYDROmorphone 0.5 MG/0.5 ML SYRINGE IV (15:22)
[2023-09-24 00:14] VITALS: BP 95/62; PULSE 75; RESP 16; TEMP 36.6; O2SAT 96
[2023-09-24] MEDS: 0.9% Normal Saline (1000mL) 1,000 ML 150 ML IV ×3 (00:16→12:19)
[2023-09-24] MEDS: Acetaminophen 500 MG Tablet 1000 MG PO ×2 (05:13→12:19)
[2023-09-24 05:15] VITALS: BP 92/53; PULSE 69; RESP 16; TEMP 36.8; O2SAT 99
[2023-09-24 07:27] LABS: Absolute Lymphocyte Count 2.27 X10^3/uL (0.83-4.51); Absolute Neutrophil Count 5.1 X10^3/uL (2.0-7.7); Basophil# 0.05 X10^3/uL; Basophil% 0.6 % (0-1); Eosinophil# 0.09 X10^3/uL; Eosinophils% 1.1 % (0-5); Hematocrit 31.4 % (37-47); Hemoglobin 10.2 g/dL (12.0-15.0); Lymphocyte # 2.27 X10^3/ul (0.83-4.51); Lymphocyte % 28.2 % (19-41); Mean Corp Hgb Conc 32.5 g/dL (32-36); Mean Corpuscular Hgb 28.8 pg (27.0-32.0); Mean Corpuscular Volume 88.7 fL (81-99); Mean Platelet Vol. 9.1 fl (6.2-12.0); Monocyte# 0.54 X10^3/uL; Monocyte% 6.7 % (0-10); NRBC Flagged by Analyzer 0 % (0-5); Neutrophil # 5.06 X10^3/uL (2.7-7.7); Platelet Count 270 K/mm3 (150-450); RBC Distribution Width CV 12.6 % (11.6-14.6); RBC Distribution Width SD 40.6 fl (35.1-43.9); Red Blood Count 3.54 M/mm3 (4.2-5.4)
[2023-09-24 08:05] VITALS: O2SAT 96
[2023-09-24 08:30] LABS: ALB/GLOB Ratio 0.9 RATIO (0.9-2.4); AST(SGOT) 10 U/L (15-37); Alanine Aminotransfer ALT/SGPT 10 U/L (13-56); Albumin, Serum 2.6 g/dL (3.2-5.0); Alkaline Phosphatase 42 U/L (45-117); Anion Gap 5 (5-15); BUN 8 mg/dL (7-18); BUN/Creat Ratio 11.4 RATIO (10-20); Calcium,Total 8.1 mg/dL (8.5-10.1); Chloride 114 mmol/L (98-107); EST Glomerular Filtration Rate 98 mL/min (>60); Est Glom Filt Rate - Afr Amer 119 mL/min (>60); Globulin 2.8 g/dL (2.2-4.2); Glucose 91 mg/dL (74-106); Potassium 3.6 mmol/L (3.5-5.1); Protein, Total 5.4 g/dL (6.4-8.2); Sodium Level 142 mmol/L (136-145)
[2023-09-24] MEDS: Ensure Plus High Protein 120 ML LIQUID PO ×2 (08:37→12:17)
[2023-09-24] MEDS: Docusate Sodium 100 MG Capsule PO (08:40)
[2023-09-24] MEDS: levETIRAcetam 500 MG Tablet PO (10:40)
[2023-09-24 10:42] VITALS: BP 90/68; PULSE 66; RESP 18; TEMP 36.8; O2SAT 100
[2023-09-24 12:22] VITALS: BP 114/64; PULSE 68; RESP 18; TEMP 36.7; O2SAT 100
--- NOTE | 2023-09-24 13:19 | PCM.PROGNOTE ---
Subjective Subjective Pain improved since yesterday. Denies new concerns. Objective Data Objective Data Vital Signs: Vital Signs Temp Pulse Resp BP Pulse Ox O2 Del Method O2 Flow Rate 98.1 F 68 18 114/64 100 Room Air 1 09/24/23 12:22 09/24/23 12:22 09/24/23 12:22 09/24/23 12:22 09/24/23 12:22 09/24/23 12:22 09/23/23 04:29 Oxygen Flow Rate (L/min) 1 Oxygen Delivery Method Room Air Weight: 168 lb 3.403 oz Body Mass Index (BMI) 29.7 Intake & Output: Intake and Output for Last 24 Hours 09/22/23 09/23/23 09/24/23 23:59 23:59 23:59 Intake Total 1150 / 1150 4686.0 / 4686.0 2807.5 / 2807.5 Output Total 400 / 400 760 / 760 80 / 80 Balance 750 / 750 3926.0 / 3926.0 2727.5 / 2727.5 Lab / Micro Data Attestation: I reviewed the patient's lab results. 09/24/23 06:55 09/24/23 06:55 Labs: Laboratory Results - last 24 hr 09/23/23 12:58: Sodium 139, Potassium 4.0, Chloride 108 H, Carbon Dioxide 22.0, Anion Gap 9, BUN 7, Creatinine 0.80, Estim Creat Clear Calc 91.43, Est GFR (MDRD) Af Amer 102, Est GFR (MDRD) Non-Af 84, BUN/Creatinine Ratio 8.7 L, Glucose 89, Calcium 8.5, Total Bilirubin 0.40, AST 10 L, ALT 13, Alkaline Phosphatase 53, Total Protein 6.4, Albumin 3.2, Globulin 3.2, Albumin/Globulin Ratio 1.0 09/24/23 06:55: WBC 8.0, RBC 3.54 L, Hgb 10.2 L, Hct 31.4 L, MCV 88.7, MCH 28.8, MCHC 32.5, RDW Std Deviation 40.6, RDW Coeff of Mikhail 12.6, Plt Count 270, MPV 9.1, Immature Gran % (Auto) 0.400, Neut % (Auto) 63.0, Lymph % (Auto) 28.2, [place] % (Auto) 6.7, Eos % (Auto) 1.1, Baso % (Auto) 0.6, Absolute Neuts (auto) 5.1, Absolute Lymphs (auto) 2.27, Nucleated RBC % 0, Sodium 142, Potassium 3.6, Chloride 114 H, Carbon Dioxide 23.0, Anion Gap 5, BUN 8, Creatinine 0.70, Estim Creat Clear Calc 104.50, Est GFR (MDRD) Af Amer 119, Est GFR (MDRD) Non-Af 98, BUN/Creatinine Ratio 11.4, Glucose 91, Calcium 8.1 L, Total Bilirubin 0.50, AST 10 L, ALT 10 L, Alkaline Phosphatase 42 L, Total Protein 5.4 L, Albumin 2.6 L, Globulin 2.8, Albumin/Globulin Ratio 0.9 Micro: Microbiology 09/22/23 23:28 Incision/Surgical Site Gram Stain - Final 09/22/23 23:28 Incision/Surgical Site Wound Culture - Preliminary Gram positive organism Gram positive organism#2 Physical Exam Const alert, oriented x3 and no apparent distress GI soft to palpation, non-tender and non-distended Extremity no calf tenderness Assessment & Plan Assessment/Plan (1) Post-operative state: PLAN: POD#2 (2) Dehiscence of vaginal cuff: QUALIFIERS: Encounter type: initial encounter Qualified Code(s): T81.31XA - Disruption of external operation (surgical) wound, not elsewhere classified, initial encounter PLAN: Plan Patient continue to improve. She is HDS and no signs of infection. Discuss possible discharge later today or tomorrow depending on her pain,
--- NOTE | 2023-09-24 13:24 | PCM.DC ---
Discharge Instructions Diet Discharge Diet: No restrictions Activity Discharge Activity: May Shower May resume sexual activity in: - (when cleared by physician) Weight Bearing Status: Weight bearing as tolerated Dressing / Incision Call your doctor if your incision/area has: Continuous Slow Oozing Call your doctor if you observe: Fever of 101 or Higher, Change in Color, Inability to urinate, Using more than 1 pad per hour, Shortness of breath, Fainting spells, Prolonged hiccupping and Uncontrolled pain Follow Up Care Please Follow Up With: Temitope Acuna When: 1 week Test Results: Test results from this visit will be discussed in further detail at your follow-up appointment, if applicable. Discharge Plan Admission Admit Date/Time: 09/23/23 11:38 Primary Reason for Your Visit: Vaginal cuff surgery Attending Provider: Janay Zeng Primary Care Provider: Skip Chen Discharge Orders/Prescriptions Prescriptions: New oxycodone 5 mg Tablet 5 mg PO Q4H PRN PRN (Reason: Pain Score 4-10) 4 Days Qty: 10 0RF Rx Instructions: as needed for pain No Action levetiracetam 500 mg tablet 1,000 mg PO BID Referrals / Follow Up: Care Physician,No Primary [Non-Staff] - Disposition Disposition (needs filled in before D/C Order can be placed): Home, Self Care
--- NOTE | 2023-09-24 14:02 | CASEMGMT ---
Patient has order for discharge. RN CM in to discuss needs at discharge. Patient denies needs or help at discharge. Patient had no further questions or concerns.
--- NOTE | 2023-09-24 14:14 | PHA.DC_ITS ---
Pharmacy [facility] has performed discharge medication reconciliation and counseling for this patient. The patient's discharge medication list was reviewed for discrepancies and discrepancies were resolved. The patient was counseled on the following discharge medications and changes in medications for homegoing were reviewed. The Reason for Use, instructions for use, and potential side effects were reviewed for all new medications. The patient's questions regarding all of their medications were answered. 1. Oxycodone 5 mg PO Q4H PRN pain 4-10/10 The patient was able to verbally demonstrate an understanding of their discharge medications. Medications at Discharge Home Medications levetiracetam 500 mg tablet 1,000 mg PO BID 08/25/21 oxycodone 5 mg tablet 5 mg PO Q4H PRN PRN Pain Score 4-10 4 days #10 tabs 09/24/23
[2023-09-24] MEDS: oxyCODONE 5 MG Tablet PO (14:18)
== END 2023-09-24 15:14 | disposition home or self-care (01) | DRG 813 ==
LOC: ED 19:24 → SDC 20:47 → AC 21:11 → PCU 22:35 → SDC 09-23 11:44 → PCU 09-23 11:44
PROVIDERS: Nurse Practitioner; Obstetrics & Gynecology; Admitting Provider Obstetrics & Gynecology; Emergency Provider Emergency Medicine; PCP Family Medicine; Visit Provider Obstetrics & Gynecology
PROC: 0UJHXZZ Inspection of Vagina and Cul-de-sac, External Approach (ICD-10-PCS; CPT 49320; principal; 2023-09-22 21:45)
DX: T81.31XA Disruption of external operation (surgical) wound, not elsewhere classified, initial encounter (principal); N73.9 Female pelvic inflammatory disease, unspecified; N93.9 Abnormal uterine and vaginal bleeding, unspecified; Z90.710 Acquired absence of both cervix and uterus
CPT/HCPCS: 36415; 72193; 80048; 80053; 81001; 85025; 87070; 87075; 87077; 87186; 87205; 93005; 94668; 97802; 99284; J7030; Q9967; A4216; J2310; J2405

== ENCOUNTER 2024-01-15 09:00 | Outpatient (RCR) | payer MEDICAID, SELFPAY ==
--- NOTE | 2023-12-17 15:48 | HP.PTEVAL_ITS ---
Patient's Visit Information Visit Information Visit Information: YAMIL NG is a 38 year old F referred to Physical Therapy by Dr. Dennise Gonzalez DO with a diagnosis of Right Knee Pain. Date of Evaluation: 12/17/23 Physical Therapist: Modesta Yoder DPT Visit Plan Frequency: 2x /Week Duration: 4 Weeks Plan: 1x a week aqua and 1x a week land- focus on LE and core strength/stabilization HEP Given IE: Quad set in supine and TKE, Sit to Stand and Single Leg Stance Subjective Subjective: She had surgery on her right knee about 2 years ago- it was good and now its bad again- unsure if its her job or if she needs to do something different. They took out her fat pad and shaved down her patella and rearranged things. 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 The pain is along the medial side of the patella and and along the superior knee. Latasha did the first surgery and she saw Dr. Gonzalez. She has not had any recent x-rays or MRI. Worst: 6/10 Agg: putting any weight through it, pivoting or rotating on it. Eases: nothing that she can think of Best: 2-3/10. She describes the pain as sharp and shooting and its always achy. She does not report consistent buckling. Does have some N.T in the calf and back of the knee. The pain radiate into the thigh and clear down into the foot. 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 Stairs: down are worse than up. Step to on bad days. Sleep: not disturbed. PMHx: epilepsy Meds: kepra, fimpap. No seizure plan- only has them in her sleep. Objective Objective: Posture: forward head, rounded shoulders- can correct with verbal cues but does not maintain throughout session Gait: no deviation noted HR/TR: able without pain SLS: 15 sec with increased muscle activation and reports increased instability Squat: weight shift to the left- increased pain Palpation: tender along medial joint line Observation: quad set visible but diminished right vs. left ROM: 0-135 degrees with pain at end range of flexion Strength: Core: fair minus, Hip: 4-/5 pain with IR/ER: testing, Knee: Extension Right: 22 (3/10) Left: 69 Flexion Right: 15 (5/10) Left: 32 Ankle: 5/5 Flex: HS: moderate, Gastroc: moderate Special Test: patellar mobility: good, LLD: negative Balance/Special Test Scores Lower Extremity Functional Score: 47 Goals Goal 1:: Patient will be I with HEP and progression Goal Time Frame: 6-8 Weeks Goal 2:: Patient will squat with good mechanics Goal Time Frame: 6-8 Weeks Goal 3:: Patient will maintain proper posture t/o tx session to demo increased core s/s Goal Time Frame: 6-8 Weeks Goal 4:: Patient will demo equal strength bilateral LE Goal Time Frame: 6-8 Weeks Goal 5:: Patient will report 80% improvement Goal Time Frame: 6-8 Weeks Rehabilitation Potential Physical Therapy Diagnosis: Patient presents with hypomobility- she has d ecreased pain free ROM, LE and core strength/stabilization, proprioception, flex and muscular endurance leading to increased pain with ADL's. Rehabilitation Potential: Good Anticipated Interventions Patient/Client Instruction: Educate patient on: Benefits of Fitness Program Therapeutic Exercise to Include: Strength training, Endurance training, Balance training, Coordination, Agility training, Body mechanics, Postural training, Flexibilty training, Gait and locomotor training, Neuromotor development, In an aquatic setting, Passive ROM, Active ROM, Dynamic Lumbar Stabilization and Scapular Strength/Stabilization For the Purpose of:: To improve muscle performance and motor function TENS: Yes Cryotherapy (ice pack, ice massage): Yes Thermo therapy (hot pack): Yes Ultrasound (thermal/non thermal): Yes Text: Thank you for the opportunity to evaluate your patient. For Medicare and Medicare HMO plans, please review the plan of care and approve it. It will need to be FAXED BACK to us at [phone] for Medicare purposes. For Medicare only, by signing this I certify the plan of care. Please let me know if there are questions or concerns regarding this plan of care. Physician Signature: Date:
--- NOTE | 2024-01-15 09:55 | HP.PTREVAL ---
Re-Evaluation Intro: Dr. Dennise Gonzalez, DO, It has been my pleasure to treat YAMIL NG over the last 9 visits for Right Knee Pain. Please see the progress note below for an update on the physical therapy plan of care! Subjective Subjective: Patient reports that she has notice less fits. She still has not been squatting or bending due to the increased pain. Sees the MD next week. Objective Objective/Function: Posture: forward head, rounded shoulders- can correct with verbal cues but does not maintain throughout session Gait: no deviation noted HR/TR: able without pain SLS: 15 sec with increased muscle activation and reports increased instability Squat: weight shift to the left- increased pain Palpation: tender along medial joint line Observation: quad set visible but diminished right vs. left ROM: 0-135 degrees with pain at end range of flexion Strength: Core: fair minus, Hip: 4-/5 pain with IR/ER: testing, Knee: Extension Right: 23.5 (3/10) Left: 55 Flexion Right: 17 (2/10) Left: 32 Ankle: 5/5 Flex: HS: moderate, Gastroc: moderate Special Test: patellar mobility: good, LLD: negative Plan Plan Plan: 01/15/24: pt to see MD next week then call in to schedule- will then decide if to continue same 1x aqua and 1x land for 4 more weeks or 2x land for 4 more weeks to progress towards goals and continue POC IE: 1x a week aqua and 1x a week land- focus on LE and core strength/stabilization Balance/Gait/Functional tests Balance/Special Test Scores Lower Extremity Functional Score: 44 Goals Goals Goal 1:: Patient will be I with HEP and progression Goal Time Frame: 6-8 Weeks Goal Progress: Progressing Goal 2:: Patient will squat with good mechanics Goal Time Frame: 6-8 Weeks Goal Progress: Progressing Goal 3:: Patient will maintain proper posture t/o tx session to demo increased core s/s Goal Time Frame: 6-8 Weeks Goal Progress: Progressing Goal 4:: Patient will demo equal strength bilateral LE Goal Time Frame: 6-8 Weeks Goal Progress: Progressing Goal 5:: Patient will report 80% improvement Goal Time Frame: 6-8 Weeks Goal Progress: Progressing Anticipated Interventions Anticipated Interventions Patient/Client Instruction: Educate patient on: Benefits of Fitness Program Therapeutic Exercise to Include: Strength training, Endurance training, Balance training, Coordination, Agility training, Body mechanics, Postural training, Flexibilty training, Gait and locomotor training, Neuromotor development, In an aquatic setting, Passive ROM, Active ROM, Dynamic Lumbar Stabilization and Scapular Strength/Stabilization For the Purpose of:: To improve muscle performance and motor function TENS: Yes Cryotherapy (ice pack, ice massage): Yes Thermo therapy (hot pack): Yes Ultrasound (thermal/non thermal): Yes Re-Evaluation Ending Re-evaluation ending: Please do not hesitate to contact me at [phone] by phone or if you have questions or concerns regarding this new plan of care! Sincerely, KATERINA BautistaT
--- NOTE | 2024-02-25 17:41 | HP.PT.NRP ---
Patient Information Patient Information: YAMIL NG was seen in my office for initial evaluation on 12/17/23. The following Plan of Care was established for this patient: POC Established Initial Frequency: 2x /Week Initial Duration: 4 Weeks Anticipated Interventions Patient/Client Instruction: Educate patient on: Benefits of Fitness Program Therapeutic Exercise to Include: Strength training, Endurance training, Balance training, Coordination, Agility training, Body mechanics, Postural training, Flexibilty training, Gait and locomotor training, Neuromotor development, In an aquatic setting, Passive ROM, Active ROM, Dynamic Lumbar Stabilization and Scapular Strength/Stabilization For the Purpose of:: To improve muscle performance and motor function TENS: Yes Cryotherapy (ice pack, ice massage): Yes Thermo therapy (hot pack): Yes Ultrasound (thermal/non thermal): Yes Last Seen Last Seen: This patient was last seen in our office . Pertinent comments regarding their Physical therapy will appear below: Patient has not returned to PT since returning to MD- appropriate to be d/c and continue home exercise program At this point I will be discontinuing this patient from physical therapy. I would be happy to see this patient again in the future if found appropriate by the physician. Thank you! Modesta Yoder, DPT Balance/Gait/Functional tests Balance/Special Test Scores Lower Extremity Functional Score: 44
== END 2024-01-15 19:00 | disposition home or self-care (01) ==
LOC: PT 09:00
PROVIDERS: PCP Family Medicine; Referring Provider Orthopaedic Surgery; Visit Provider Orthopaedic Surgery
DX: M25.561 Pain in right knee (principal)
CPT/HCPCS: 97110; 97113; 97162; 97530

== ENCOUNTER 2024-05-24 21:00 | Emergency (ER) | payer MEDICAID, SELFPAY ==
[2024-05-24 21:01] VITALS: BP 129/80; PULSE 87; RESP 16; TEMP 36.6; O2SAT 100; BMI 26.5
[2024-05-24] MEDS: Diphth,Pertuss(Acell),Tet Vac 0.5 ML Vial IM (21:26)
[2024-05-24] MEDS: Lidocaine 1% (20 ml mdv) 20 ML Vial INFILT (21:26)
[2024-05-24] MEDS: Ondansetron ODT 4 MG Tablet PO (22:07)
[2024-05-24] MEDS: Cephalexin 250 MG Capsule 500 MG PO (22:07)
[2024-05-24 22:31] VITALS: BP 129/80; PULSE 80; RESP 16; TEMP 36.6; O2SAT 100
== END 2024-05-24 22:40 | disposition home or self-care (01) ==
PROVIDERS: Emergency Provider Surgery; PCP Family Medicine; Referring Provider Surgery; Visit Provider Surgery
DX: S67.192A Crushing injury of right middle finger, initial encounter (principal); W23.0XXA Caught, crushed, jammed, or pinched between moving objects, initial encounter; F10.10 Alcohol abuse, uncomplicated; Z23 Encounter for immunization
CPT/HCPCS: 11760; 11750; 73140; 90715; 99284

== ENCOUNTER 2024-08-22 21:11 | Emergency (ER) | payer MEDICAID, SELFPAY ==
[2024-08-22 21:13] VITALS: BP 105/85; PULSE 99; RESP 15; TEMP 36.1; O2SAT 98; BMI 25.7
--- NOTE | 2024-08-22 21:24 | CT_ITS ---
PROCEDURE: ABDOMEN/PELVIS WITHOUT CONT REASON FOR EXAM: Abdominal pain TECHNIQUE: Abdomen and pelvis CT without intravenous contrast. COMPARISON: February 2023 FINDINGS: Noncontrast technique limits evaluation of the abdominal and pelvic viscera. Lung bases: Clear Liver: Mild hepatic steatosis Gallbladder: Unremarkable. Spleen: Slight prominent at 13 cm Pancreas: Unremarkable. Adrenals: Unremarkable. Kidneys: It does appear to be some perinephric stranding as well as thickening of the left ureter. No renal stones detected. This may be due to some mild inflammation or possibly infection. Correlation urinalysis advised. The urinary bladder has a thick wall. Small amount of Trace ascites seen in the pelvis. Uterus is not seen presumed removed. There is no bowel obstruction. Normal appendix. No bowel inflammation No aneurysm. No abscess. Ovaries appear similar Tiny umbilical hernia containing fat CT/Abdomen/Pelvis without Cont IMPRESSION: No renal stone. There is mild left periureteral stranding. Correlation with u rinalysis advised as there is also bladder wall thickening. Cystitis and ascending urinary tract infection can present similar ly. Again no stone detected. Mild hepatic steatosis Upper limits of normal spleen size. Hysterectomy changes. One or more dose reduction techniques were used (e.g., Automated exposure contr ol, adjustment of the mA and/or kV according to patient size, use of iterative reconstruction technique). Reading Location: [id number]
--- NOTE | 2024-08-22 21:25 | EDS_ITS ---
HPI History of Present Illness Chief Complaint: Flank Pain Informant: patient Onset/Context/Timing Onset: Today Context: Gradual Onset Timing: Continuous Quality: Sharp, aching Location: Left flank Current Severity: Severe Maximum Severity: Severe Worsened by: Nothing Relieved by: Nothing Narrative Narrative: Patient presents with left flank pain that began today. Patient states she went to urgent care today. Patient states that they told her if her pain became worse that she should come to the emergency department. Patient states her pain has been getting progressively worse. Patient describes it as sharp and aching. Patient states it is over the left flank. Patient states nothing makes it better and nothing makes it worse. Patient admits to some nausea and vomiting. Patient admits to some subjective chills. Patient denies any dysuria or hematuria. [facility] Medical History Dehiscence of vaginal cuff Ganglion cyst Ureteral stone Anxiety Epilepsy Home Medications ?Medication ?Instructions ?Recorded ?Last Taken ?Type levetiracetam 500 mg tablet 1,000 mg PO BID 08/25/21 U nknown History cephalexin 500 mg capsule 500 mg PO BID 5 days #10 cap s 05/24/24 Unknown Rx lacosamide 150 mg tablet 150 mg PO BID 05/24/24 Unkno wn History omeprazole 40 mg capsule,delayed 40 mg PO BID 05/24/24 Unknown History release hydrocodone-acetaminophen 5-325mg 1 tab PO Q6H PRN PRN Pain 3 days 08/22/24 Unknown Rx 5mg-325mg #10 TABLETS ondansetron 4 mg disintegrating 4 mg PO Q8H PRN PRN Na usea #10 tabs 08/22/24 Unknown Rx tablet Allergy/AdvReac Type Severity Reaction Status Date / Time Bleach (Sodium Hypochlorite) Allergy Hives Verified 08/22/24 21:12 lamotrigine (From Lamictal) Allergy Rash Verified 08/22/24 21:12 tree and shrub pollen Allergy Hives Verified 08/22/24 21:12 Surgical History S/P hysterectomy Previous section H/O right knee surgery H/O: hysterectomy Social History household members: spouse Smoking Status: Never smoker substance use type: does not use ROS ROS ED Constitutional Constitutional ED: Reports chills; Denies fever(s) Eyes Eyes: Denies blurry vision or change in vision ENT ENT ED: Denies rhinorrhea or sore throat Cardiovascular Cardiovascular: Denies chest pain or palpitations Respiratory/Chest Respiratory/Chest: Denies cough or dyspnea Gastrointestinal Gastrointestinal: Reports nausea and vomiting Genitourinary Genitourinary ED: Denies dysuria or hematuria Musculoskeletal Musculoskeletal: Reports back pain; Denies neck pain Integumentary Denies abscess or rash Neurologic Neurologic: Denies headache(s) or weakness Allergic/Immunologic Allergic/Immunologic ED: Denies mouth swelling or urticaria EXAM Physical Exam Const Vital Signs: 08/22/24 21:13 Temperature 97 F L Temperature Source Temporal Pulse Rate 99 Respiratory Rate 15 Blood Pressure 105/85 H Blood Pressure Mean 91 Pulse Ox 98 Oxygen Delivery Method Room Air Positive well nourished and well developed General Appearance ED: well developed and NAD HEENT Reports moist mucous membranes Neck supple and no JVD Resp normal respiratory effort and clear to auscultation bilaterally Cardio regular rate and regular rhythm GI non-tender and non-distended Palpation: soft Back/Spine General Back: CVA tenderness left Neuro oriented x3, CN's II-XII intact bilaterally and no sensory deficits noted Sensorium / Orientation: alert Motor Exam: strength 5/5 throughout Psych mental status grossly normal MDM MDM MDM Narrative Medical decision making narrative: Differential diagnosis includes ureteral calculus, pyelonephritis, urinary tract infection, diverticulitis, and musculoskeletal back pain. CBC will be obtained to assess for leukocytosis and anemia. Patient metabolic profile also returned electrolyte abnormality renal function. Assess for urinary tract infection and hematuria. CT scan of the pelvis will be obtained to assess for ureteral calculus and pyelonephritis. Lab Data Attestation: I reviewed the patient's lab results. Lab results narrative: CBC was reviewed. There is a mild leukocytosis of 13.4. The remainder is within normal limits. Basic metabolic profile was reviewed and was essentially within normal limits. Serum hCG was reviewed and was negative. Urinalysis was reviewed. Leukocyte esterase was 500 with 5-10 white blood cells. There are no bacteria noted. Labs: Laboratory Results - last 24 hr 08/22/24 08/22/24 21:39 21:45 WBC 13.4 H RBC 5.11 Hgb 14.5 Hct 42.7 MCV 83.6 MCH 28.4 MCHC 34.0 RDW Std Deviation 38.3 RDW Coeff of Mikhail 12.8 Plt Count 376 MPV 9.2 Immature Gran % (Auto) 0.300 Neut % (Auto) 70.7 H Lymph % (Auto) 21.0 [place] % (Auto) 7.1 Eos % (Auto) 0.4 Baso % (Auto) 0.5 Absolute Neuts (auto) 9.5 H Absolute Lymphs (auto) 2.81 Nucleated RBC % 0 Sodium 136 Potassium 3.6 Chloride Direct 100 Carbon Dioxide 20.1 L Anion Gap 16 H BUN 14 Creatinine 0.80 Estim Creat Clear Calc 84.37 Est GFR (MDRD) Non-Af 96 BUN/Creatinine Ratio 17.0 Glucose 96 Calcium 10.3 Serum , Qual NEGATIVE Urine Color Yellow Urine Clarity Clear Urine pH 7.0 Ur Specific [place] 1.010 Urine Protein 15 H Urine Glucose (UA) Normal Urine Ketones Negative Urine Occult Blood 50 H Urine Nitrite Negative Urine Bilirubin Negative Urine Urobilinogen Normal Ur Leukocyte Esterase 500 H Urine RBC 0-5 SEEN Urine WBC 5-10 SEEN Ur Squamous Epith Cells 0-5 SEEN Urine Bacteria Not Reportable Urine Mucus 0 SEEN Radiography Diagnostic Testing: Clinical Impression(s) from Imaging Studies Abdomen/Pelvis CT 08/22/24 21:24 IMPRESSION: No renal stone. There is mild left periureteral stranding. Correlation with urinalysis advised as there is also bladder wall thickening. Cystitis and ascending urinary tract infection can present similarly. Again no stone detected. Mild hepatic steatosis Upper limits of normal spleen size. Hysterectomy changes. One or more dose reduction techniques were used (e.g., Automated exposure control, adjustment of the mA and/or kV according to patient size, use of iterative reconstruction technique). Reading Location: [facility] CT scan of the abdomen and pelvis was obtained. There is mild left periureteral stranding and bladder wall thickening. There is no renal calculus noted. There is no other acute abnormality noted. This was interpreted by the radiologist and was also independently reviewed by myself. Treatment and Re-Evaluation :: Patient was given fluids, morphine, and Zofran. Patient was still having some pain on reevaluation. Patient was given a dose of Toradol. Patient was advised of her findings. Patient states she was given a prescription for Keflex from the urgent care earlier today. Patient was instructed to take this as prescribed. Patient was given a prescription for [place] and Zofran. Patient was instructed to follow-up with her primary care physician in 3 to 5 days. Patient was instructed to return if worse in any way. Patient understood and was agreeable with the plan. All questions were answered. Discharge Plan Triage Chief Complaint: Flank Pain ED Provider: Robert Belcher Dx/Rx/DC Orders Clinical Impression: Acute left flank pain Instructions: ED Flank Pain, Uncertain Cause Prescriptions: New hydrocodone-acetaminophen 5-325 mg tablet 1 tab PO Q6H PRN PRN (Reason: Pain) 3 Days Qty: 10 0RF ondansetron 4 mg tablet,disintegrating 4 mg PO Q8H PRN PRN (Reason: Nausea) Qty: 10 0RF No Action levetiracetam 500 mg tablet 1,000 mg PO BID omeprazole 40 mg capsule,delayed release(DR/EC) 40 mg PO BID lacosamide 150 mg tablet 150 mg PO BID cephalexin 500 mg capsule 500 mg PO BID 5 Days Qty: 10 0RF Primary Care Provider: Skip Chen Referrals: Skip Chen MD [Primary Care Provider] - 3-5 Days Print Language: [place] Disposition Disposition: Home, Self Care
[2024-08-22] MEDS: 0.9% Normal Saline (1000mL) 1,000 ML 1000 ML IV (21:43)
[2024-08-22] MEDS: Ondansetron 4 MG/2 ML Vial IV (21:43)
[2024-08-22] MEDS: Morphine 4 MG/ML Syringe IV (21:43)
[2024-08-22 21:44] LABS: Mucous, Urine 0 SEEN /hpf (<or=2+)
[2024-08-22 21:56] LABS: Absolute Lymphocyte Count 2.81 X10^3/uL (0.83-4.51); Absolute Neutrophil Count 9.5 X10^3/uL (2.0-7.7); Basophil# 0.07 X10^3/uL; Basophil% 0.5 % (0-1); Eosinophil# 0.06 X10^3/uL; Eosinophils% 0.4 % (0-5); Hematocrit 42.7 % (37-47); Hemoglobin 14.5 g/dL (12.0-15.0); Lymphocyte # 2.81 X10^3/ul (0.83-4.51); Mean Corpuscular Hgb 28.4 pg (27.0-32.0); Mean Corpuscular Volume 83.6 fL (81-99); Mean Platelet Vol. 9.2 fl (6.2-12.0); Monocyte# 0.95 X10^3/uL; Monocyte% 7.1 % (0-10); NRBC Flagged by Analyzer 0 % (0-5); Neutrophil # 9.47 X10^3/uL (2.7-7.7); Neutrophil % 70.7 % (47-70); Platelet Count 376 K/mm3 (150-450); RBC Distribution Width CV 12.8 % (11.6-14.6); RBC Distribution Width SD 38.3 fl (35.1-43.9); Red Blood Count 5.11 M/mm3 (4.2-5.4); White Blood Count 13.4 K/mm3 (4.4-11.0)
[2024-08-22 22:07] LABS: Color, Urine Yellow (Yellow); Glucose, Dipstick Normal (Normal); Ketone-Dipstick Negative (Negative); Leukocyte Esterase-Dipstick 500 /ul (Negative); Nitrite-Dipstick Negative (Negative); Occult Blood-Urine 50 /ul (Negative); Protein-Dipstick 15 mg/dl (Negative); Urine Bilirubin Dipstick Negative (Negative); Urine Clarity Clear (Clear); Urine Urobilinogen Normal (Normal)
[2024-08-22 22:10] LABS: Anion Gap 16 (5-15); BUN 14 mg/dL (4-19); Calcium 10.3 mg/dL (7.6-11.0); Carbon Dioxide 20.1 mmol/L (22.0-29.0); Chloride 100 mmol/L (96-108); EST Glomerular Filtration Rate 96 (>60); Estimated Creatinine Clearance 84.37 ml/min (50-250); Glucose 96 mg/dL (70-99); Potassium 3.6 mmol/L (3.3-5.1); Sodium Level 136 mmol/L (133-145)
[2024-08-22 22:23] LABS: Internal QC Validated? YES +Cl - CLEAR BKGD; Pregnancy, Serum, hCG Quali. NEGATIVE Negative
[2024-08-22 22:28] LABS: Red Blood Cells-Urine 0-5 SEEN /hpf (0-5); Squamous Epithelial Cells - UA 0-5 SEEN /hpf (5-10); White Blood Cells 5-10 SEEN /hpf (0-5)
[2024-08-22] MEDS: Ketorolac 30 MG/ML Syringe IV (23:31)
[2024-08-22 23:54] VITALS: BP 133/77; PULSE 87; RESP 16; O2SAT 98
== END 2024-08-22 23:54 | disposition home or self-care (01) ==
PROVIDERS: Emergency Provider Emergency Medicine; PCP Family Medicine; Visit Provider Emergency Medicine
DX: R10.9 Unspecified abdominal pain (principal); R11.2 Nausea with vomiting, unspecified; Z90.710 Acquired absence of both cervix and uterus
CPT/HCPCS: 74176; 80048; 81001; 84703; 85025; 96361; 96374; 96375; 99283; A4216; J2405

== ENCOUNTER 2025-03-15 06:19 | Emergency (ER) | payer MEDICAID, SELFPAY ==
[2025-03-15 06:20] VITALS: BP 121/76; PULSE 72; RESP 16; TEMP 36.6; O2SAT 98; BMI 24.7
--- NOTE | 2025-03-15 06:24 | EDS_ITS ---
HPI HPI - GI History of Present Illness Chief Complaint: Abd Pain Informant: patient Abdominal Pain/Flank Pain Onset: Today Context: Gradual Onset Timing: Continuous Quality: Sharp and Stabbing Location: Epigastric, RUQ, LUQ and RLQ Worsened by: Movement (Standing) Relieved by: Nothing Nausea/Vomiting/Emesis GI Symptom: Positive for Nausea and Vomiting Diarrhea/Melena/Hematochezia GI Symptom: Negative for Diarrhea, Melena or Hematochezia Associated Symptoms Associated Symptoms: Negative for Dysuria, Frequency or Hematuria Narrative Narrative: Patient presents with abdominal pain that began this morning. Patient states it came on gradually. Patient describes it as sharp and stabbing. Patient states it is mainly over the upper abdomen and the right lower abdomen. Patient states that it is worse with standing and certain movements. Patient states nothing makes it better. Patient admits to some nausea and vomiting. Patient denies any diarrhea, melena, or hematochezia. Patient denies any urinary complaints. Patient states she last had anything to drink yesterday afternoon. Patient states the last time she had anything to eat was 2 days ago. Patient denies any fevers or chills. Patient states she has been constipated. [facility] Medical History Dehiscence of vaginal cuff Ganglion cyst Ureteral stone Anxiety Epilepsy Home Medications ?Medication ?Instructions ?Recorded ?Last Taken ?Type levetiracetam 500 mg tablet 1,000 mg PO BID 08/25/21 U nknown History lacosamide 150 mg tablet 150 mg PO BID 05/24/24 Unkno wn History Allergy/AdvReac Type Severity Reaction Status Date / Time Bleach (Sodium Hypochlorite) Allergy Hives Verified 03/15/25 06:19 lamotrigine (From Lamictal) Allergy Rash Verified 03/15/25 06:19 tree and shrub pollen Allergy Hives Verified 03/15/25 06:19 Family History no significant family his Surgical History S/P hysterectomy Previous section H/O right knee surgery H/O: hysterectomy Social History household members: spouse Smoking Status: Never smoker substance use type: does not use ROS ROS ED Constitutional Constitutional ED: Denies chills or fever(s) Eyes Eyes: Denies blurry vision or change in vision ENT ENT ED: Denies rhinorrhea or sore throat Cardiovascular Cardiovascular: Denies chest pain or palpitations Respiratory/Chest Respiratory/Chest: Denies cough or dyspnea Gastrointestinal Gastrointestinal: Reports abdominal pain, constipation, nausea and vomiting Genitourinary Genitourinary ED: Denies dysuria or hematuria Musculoskeletal Musculoskeletal: Denies back pain or neck pain Integumentary Denies abscess or rash Neurologic Neurologic: Denies headache(s) or weakness Allergic/Immunologic Allergic/Immunologic ED: Denies mouth swelling or urticaria EXAM Physical Exam Const Vital Signs: 03/15/25 06:20 Temperature 97.9 F Temperature Source Oral Pulse Rate 72 Respiratory Rate 16 Blood Pressure 121/76 H Blood Pressure Mean 91 Pulse Ox 98 Oxygen Delivery Method Room Air Positive well nourished and well developed Constitutional Narrative: BMI is 24.7. General Appearance ED: well developed and NAD HEENT Reports moist mucous membranes Neck supple and no JVD Resp normal respiratory effort and clear to auscultation bilaterally Cardio regular rate and regular rhythm GI non-distended Palpation: soft and tender epigastric, RLQ, LUQ, RUQ, periumbilical and suprapubic; Negative for guarding or rebound tenderness present Neuro CN's II-XII intact bilaterally, moves all extremities and no sensory deficits noted Sensorium / Orientation: alert Motor Exam: strength 5/5 throughout Psych mental status grossly normal and thought process normal MDM MDM MDM Narrative Medical decision making narrative: Differential diagnose includes bowel obstruction, perforation, electrolyte abnormality, colitis, diverticulitis, pancreatitis, cholecystitis, cholelithiasis, gastritis, peptic ulcer disease, duodenal ulcer, constipation, and viral illness. CBC will be obtained to assess for leukocytosis and anemia. Comprehensive metabolic profile will be obtained to assess for electrolyte abnormality, renal function, and hepatic function. Lipase will be obtained to assess for pancreatitis. Urinalysis will be obtained to assess for urinary tract infection and hematuria. CT scan of the abdomen and pelvis will be obtained to assess for bowel obstruction, perforation, colitis, diverticulitis, pancreatitis, and pyelonephritis. History & Record Review Additional record(s) reviewed:: Prior outpatient record, Prior ED visit and Prior labs Lab Data Attestation: I reviewed the patient's lab results. Lab results narrative: CBC was reviewed and was within normal limits. Comprehensive metabolic profile was reviewed and was within normal limits. Lipase was reviewed and was within normal limits. Urinalysis was reviewed. There is no evidence of urinary tract infection or hematuria. Labs: Laboratory Results - last 24 hr 03/15/25 03/15/25 06:26 06:40 WBC 7.4 RBC 4.87 Hgb 14.1 Hct 41.9 MCV 86.0 MCH 29.0 MCHC 33.7 RDW Std Deviation 40.0 RDW Coeff of Mikhail 12.9 Plt Count 274 MPV 9.0 Immature Gran % (Auto) 0.300 Neut % (Auto) 58.9 Lymph % (Auto) 31.9 [place] % (Auto) 7.5 Eos % (Auto) 0.9 Baso % (Auto) 0.5 Absolute Neuts (auto) 4.4 Absolute Lymphs (auto) 2.37 Nucleated RBC % 0 Sodium 139 Potassium 3.7 Chloride 106 Carbon Dioxide 20.3 L Anion Gap 13 BUN 11 Creatinine 0.87 Estim Creat Clear Calc 76.25 Est GFR (MDRD) Non-Af 86 BUN/Creatinine Ratio 12.6 Glucose 91 Calcium 9.5 Total Bilirubin 0.28 AST 18 ALT 11 Alkaline Phosphatase 49 Total Protein 7.0 Albumin 4.3 Globulin 2.7 Albumin/Globulin Ratio 1.6 Lipase 35 Urine Color Yellow Urine Clarity Clear Urine pH 7.0 Ur Specific [place] 1.010 Urine Protein Negative Urine Glucose (UA) Normal Urine Ketones Negative Urine Occult Blood Negative Urine Nitrite Negative Urine Bilirubin Negative Urine Urobilinogen Normal Ur Leukocyte Esterase Negative Urine RBC 0 SEEN Urine WBC 0-5 SEEN Ur Squamous Epith Cells 5-10 SEEN Urine Bacteria 0 SEEN Urine Mucus 0 SEEN Radiography Diagnostic Testing: Clinical Impression(s) from Imaging Studies Abdomen/Pelvis CT 03/15/25 07:38 IMPRESSION: There is a 1.5 x 0.8 cm uncomplicated fat containing paraumbilical hernia, unchanged. There is a 2.2 cm peripherally enhancing density in the right ovary, image 102/135 may represent a follicle in involution. Reading Location: [facility] CT scan of the abdomen and pelvis was obtained. There is a 1.5 x 0.8 cm fat- containing umbilical hernia which is unchanged from previous results. There is a 2.2 cm density in the right ovary which may represent a follicle. There is no acute abnormality noted. There is no free air or free fluid. This was interpreted by the radiologist and was also independently reviewed by myself. Treatment and Re-Evaluation :: Patient was given IV fluids, morphine, and Zofran. Patient feeling somewhat better on reevaluation. Patient was advised of her findings. Patient was instructed continue her laxatives. Patient declined an enema here. Patient was instructed to follow-up with her primary care physician in 3 to 5 days. Patient was advised that she may need to follow-up with gastroenterology as well. Patient and spouse understood and were agreeable with the plan. All questions were answered. Discharge Plan Triage Chief Complaint: Abd Pain ED Provider: Robert Belcher Dx/Rx/DC Orders Clinical Impression: Abdominal pain, Constipation, Ovarian cyst Instructions: ED Abdominal Pain Unkn Cause Fem, ED Constipation (Adult), ED Ovarian Cyst Prescriptions: No Action levetiracetam 500 mg tablet 1,000 mg PO BID lacosamide 150 mg tablet 150 mg PO BID Primary Care Provider: Skip Chen Referrals: Skip Chen MD [Primary Care Provider, Family Practice] - 3-5 Days Print Language: Citizen Of [place] Disposition Disposition: Home, Self Care
[2025-03-15 06:43] LABS: Hematocrit 41.9 % (37-47); Hemoglobin 14.1 g/dL (12.0-15.0); Immature Granulocytes Count 0.020 X10^3/uL (0.0-0.0); Mean Corp Hgb Conc 33.7 g/dL (32-36); Mean Corpuscular Volume 86.0 fL (81-99); Mean Platelet Vol. 9.0 fl (6.2-12.0); NRBC Flagged by Analyzer 0 % (0-5); Platelet Count 274 K/mm3 (150-450); RBC Distribution Width CV 12.9 % (11.6-14.6); RBC Distribution Width SD 40.0 fl (35.1-43.9); Red Blood Count 4.87 M/mm3 (4.2-5.4); White Blood Count 7.4 K/mm3 (4.4-11.0)
[2025-03-15] MEDS: 0.9% Normal Saline (1000mL) 1,000 ML 999 ML IV (06:43)
[2025-03-15 06:47] LABS: Mucous, Urine 0 SEEN /hpf (<or=2+); Red Blood Cells-Urine 0 SEEN /hpf (0-5)
[2025-03-15 06:53] LABS: Color, Urine Yellow (Yellow); Glucose, Dipstick Normal (Normal); Ketone-Dipstick Negative (Negative); Leukocyte Esterase-Dipstick Negative /ul (Negative); Nitrite-Dipstick Negative (Negative); Occult Blood-Urine Negative /ul (Negative); Protein-Dipstick Negative (Negative); Specific Gravity, Urine 1.010 (1.002-1.030); Urine Bilirubin Dipstick Negative (Negative)
--- OUTSIDE RECORDS SUMMARY | 2025-03-15 06:58 | XMS RPT_ITS | CCD ---
Author Organization [facility] ion Partnership [facility] Care Team Providers Care Contract Clerk Name Role Phone Alejandro HWANG MD, Frank A Primary Care Provider Mariaelena vailable Unavailable Primary Care Provider UnavailAdrianne Membreno MD Primary Care Provider Adrianne Ignacio MD Primary Care Provider Unavailable Primary Care Provider Unavaildarcy Allen III, MD, Frank A Primary Care Provider Mariaelena vailable Podlogar BLOCKLAYER.Cristy NICHOLSON Unavailable Skip Ignacio Primary Care Unavailable Robert Belcher Attending Unavailable Skip Ignacio Primary Care Unavailable Junaid Evans Attending UnavailJunaid Thornton Referring UnavailSkip Membreno Primary Care Unavailable Dennise Gonzalez Attending Unavailab Dennise Morales Referring Unavailab Skip Fiore Primary Care Unavailable Janay Robb Admitting Unavail able Janay Robb Attending Unavail able Flor Eid Referring Unavailable Skip Ignacio Primary Care Unavailable Nils Haro Attending Unavailable Knoble BLOCKLAYER.Iveth NICHOLSON Unavailable Knoble BLOCKLAYER.Iveth NICHOLSON Unavailable Knoble BLOCKLAYER.Iveth NICHOLSON Unavailable Knoble BLOCKLAYER.Iveth NICHOLSON Unavailable ADRIANNE IGNACIO Primary Care Unavailab le ADRIANNE IGNACIO Primary Care Unavailab KRISTEN Reeves Attending Unavaila ble ADRIANNE IGNACIO Primary Care Unavailab ANGELA Josue Attending Unavailable DENNISE GONZALEZ Referring Unavailab le MATEUS, JENNYFERER B Primary Care Unavailab le MATEUS, TIMOPHER B Primary Care Unavailab le CRISTY DUNBAR Attending Unavailable GRACIELOGCRISTY LOVETT Referring Unavailable MATEUS, JENNYFERER B Primary Care Unavailab MEREDITH Blount Referring Unavailable MATEUS, TIMOPHER B Primary Care Unavailab MARTINE Liu Attending Unavailable ADRIANNE IGNACIO B Primary Care Unavailab IVETH Almanzar Attending Unavailable KRISTEN ABREU Attending Unavailable JENNYFER IGNACIOER B Primary Care Unavailab le KALESSA, DOMITILA Referring Unavailable COLEEN MARIA Attending Unavailable ADRIANNE IGNACIO B Primary Care Unavailab le KALESSA, DOMITILA Referring Unavailable JENNYFER IGNACIOER B Primary Care Unavailab le MATEUS, CHRISTOPHER B Primary Care Unavailab MARTINE Liu Attending Unavailable LESLIE LUONG Attending Unavailable SHAVON LACEY Referring Unavailable ADRIANNE IGNACIO B Primary Care Unavailab le JENNYFER IGNACIOER B Primary Care Unavailab SHAVON Barroso Referring Unavailable JENNYFER IGNACIOER B Primary Care Unavailab le MATEUS, TIMOPHER B Primary Care Unavailab RENÉ George Attending Unavailable GRACIELOGCRISTY LOVETT Attending Unavailable ADRIANNE IGNACIO B Primary Care Unavailab le MATEUS, JENNYFERER B Primary Care Unavailab DOMINGO Mckeon Attending Unavailable SHAVON LACEY Referring Unavailable JENNYFER IGNACIOER B Primary Care Unavailab PREET Rabago Attending Unavailable ADRIANNE IGNACIO B Primary Care Unavailab le MATEUS, TIMOPHER B Primary Care Unavailab HENRIQUE Delgado Attending Unavailable CRISTY DUNBAR Attending Unavailable JENNYFER IGNACIOER B Primary Care Unavailab le MATEUS, TIMOPHER B Primary Care Unavailab JEFFY Contreras Attending Unavailable ADRIANNE IGNACIO B Primary Care Unavailab SUZANNE Lynn Attending Unavailable ADRIANNE IGNACIO B Primary Care Unavailab le DENNISE GONZALEZ Referring Unavailab le JENNYFER IGNACIOER B Primary Care Unavailab ILANA Mccurdy Attending Unavailable ADRIANNE IGNACIO B Primary Care Unavailab le ADRIANNE IGNACIO Primary Care Unavailab le PODLOGAR, CRISTY Attending Unavailable ADRIANNE IGNACIO Primary Care Unavailab le PODLOGAR, CRISTY Referring Unavailable ADRIANNE IGNACIO Primary Care Unavailab le PODLOGAR, CRISTY Referring Unavailable ADRIANNE IGNACIO Primary Care Unavailab le ABHIJIT, MEREDYTHE A Referring Unavailable ADRIANNE IGNACIO Primary Care Unavailab le KALESSA, DOMITILA Attending Unavailable PODLOGAR, CRISTY Referring Unavailable ADRIANNE IGNACIO Primary Care Unavailab le WHITTDHIRAJ Referring Unavailable ADRIANNE IGNACIO Primary Care Unavailab le ARAMIS, DOMINGO Referring Unavailable ADRIANNE IGNACIO Referring Unavailab le ADRIANNE IGNACIO Primary Care Unavailab le MATEUS, JENNYFERER Kb Primary Care Unavailab le VURAL, ADIL FETHI Referring Unavailable KALESSA, DOMITILA Referring Unavailable ADRIANNE IGNACIO Primary Care Unavailab le VURAL, ADIL FETHI Attending Unavailable KALESSA, DOMITILA Referring Unavailable ADRIANNE IGNACIO Primary Care Unavailab le ABHIJIT, SAMTHE A Attending Unavailable Allergies Allergy Classification Reported Allergen(s) Allergy Type Date of Onset Reaction(s) Facility Anti-Epileptic Agents (2 sources) lamoTRIgine Drug Allergy 8 [facility] Hypochlorite (1 source) Hypochlorite Drug Allergy 6 [facility] (20 sources) Hypochlorite; Translations: [BLEACH (SODIUM HYPOCHLORITE)] Drug Allergy 6 [facility] Work Phone: (20 sources) lamoTRIgine; Translations: [LAMOTRIGINE] Drug Allergy 8 [facility] (1 source) P[place] TREES Allergy to substance [address] [facility] Work Phone: (20 sources) Tree; Translations: [TREES] Allergy to substance 6 [facility] Work Phone: (20 sources) Tree and shrub pollen; Translations: [tree and shrub pollen] Allergy to substance 2 [facility] (20 sources) topiramate; Translations: [TOPIRAMATE] Drug Allergy 3 Rash [facility] Work Phone: (1 source) lamoTRIgine Drug Allergy 5 [facility] (1 source) Bleach (Sodium Hypochlorite) Drug allergy (disorder) 5 [facility] Medications Current Medications Medication Drug Class(es) Dates Sig (Normalized) Sig (Original) cephalexin 500 mg oral capsule (9 sources) Cephalosporin Antibacterial Start: 08-22-2024 End: 08-27-2024 take 1 capsule by mouth twice daily cephALEXin (KEFLEX) 500 mg capsule Take 1 capsule by mouth two times a day for 5 days. 10 capsule 08/22/2024 08/27/2024 Active Start: 02-24-2023 End: 09-22-2023 take 500 mg by mouth every six hours Cephalexin Discontinued 500 MG PO EVERY 6 HOURS 28 February 24, 2023 12:00am September 22, 2023 9:12pm Start: 08-25-2021 take 500 mg by mouth every twelve hours Cephalexin Active 500 MG PO EVERY 12 HOURS August 25, 2021 11:42am End: 03-28-2023 take 1 capsule by mouth four times daily cephALEXin (KEFLEX) 500 mg capsule Take 500 mg by mouth four times daily. 0 03/28/2023 Discontinued Comment on above: Take 500 mg by mouth four times daily. clobetasol propionate 0.5 mg/ml topical cream (20 sources) Corticosteroid Start: 09-10-2024 clobetasol (TEMOVATE) 0.05 % cream Indications: Rash and nonspecific skin eruption Apply to affected area twice daily Saturday-Saturday. Take weekends off. Do not use on face, armpits, neck, or groin. 60 g 2 09/10/2024 Active Start: 08-04-2024 End: 08-04-2025 Clobetasol Propionate (TEMOV ATE) 0.05 % external solution Indications: Psoriasis vulgaris Apply to affected areas on scalp twice daily Saturday-Saturday, take weekends off. May repeat as needed. 50 mL 3 08/04/2024 08/04/2025 Active Start: 12-25-2023 End: 01-08-2024 Clobetasol Propionate 0.05 % sham Indications: Psoriasis of scalp , Atopic dermatitis of scalp Apply to affected area once daily for 14 days. 118 mL 1 12/25/2023 01/08/2024 doxycycline monohydrate 100 mg oral capsule (1 source) Tetracycline-class Drug Start: 04-13-2024 End: 04-18-2024 take 1 capsule by mouth twice daily doxycycline monohydrate (MONODOX) 100 mg capsule Indications: Pneumonia of left lower lobe due to infectious organism Take 1 capsule by mouth two times a day for 5 days. 10 capsule 04/13/2024 04/18/2024 Active fluconazole 150 mg oral tablet (2 sources) Azole Antifungal Start: 09-30-2023 End: 10-14-2023 fluconazole (DIFLUCAN) 150 mg tablet Take 1 tablet by mouth as directed for 14 days. take one tablet q 3 days 4 tablet 0 09/30/2023 10/14/2023 Active Comment on above: Take 1 tablet by mouth as directed for 1 4 days. take one tablet q 3 days iv contrast (will be provided with radiology test) (2 sources) Start: 01-08-2024 End: 01-09-2024 iv contrast (will be provided with radiology test) Indications: Liver lesion MRI Liver Inject, intravenously, once for 1 dose. No IV access, insert saline lock prior to the beginning of sedation, infusion, injection of imaging exam. Discontinue saline lock post exam. If Pt. has a central line or IVAD, may access for administration according to line specific nursing protocol. Once exam is complete flush line and de-access according to line specific nursing protocol in the MR contrast administration guidelines link. 1 Each 0 01/08/2024 01/09/2024 Active Start: 06-03-2023 End: 06-04-2023 iv contrast (will be provide d with radiology test) MRV Brain Inject, intravenously, once for 1 dose. No IV access, insert saline lock prior to the beginning of sedation, infusion, injection of imaging exam. Discontinue saline lock post exam. If Pt. has a central line or IVAD, may access for administration according to line specific nursing protocol. Once exam is complete flush line and de-access according to line specific nursing protocol in the MR contrast administration guidelines link. 1 Each 0 06/03/2023 06/04/2023 Comment on above: MRV Brain Inject, in travenously, once for 1 dose. No IV access, insert saline lock prior to the beginning of sedation, infusion, injection of imaging exam. Discontinue saline lock post exam. If Pt. has a central line or IVAD, may access for administration according to line specific nursing protocol. Once exam is complete flush line and de-access according to line specific nursing protocol in the MR contrast administration guidelines link. lacosamide 150 mg oral tablet (20 sources) Anti-epileptic Agent Start: End: take 1 tablet by mouth twice daily lacosamide (VIMPAT) 150 mg tab Indications: Focal epilepsy (HCC) Take 1 tablet by mouth two times a day for 180 days. 180 tablet 1 01/04/2025 07/03/2025 Active Start: 12-04-2023 End: 01-20-2024 take 1 tablet by mouth twice daily lacosamide (VIMPAT) 50 mg tab Indications: Partial symptomatic epilepsy with complex partial seizures, intractable, without status epilepticus (HCC) Take 1 tablet by mouth two times a day for 7 days. Then switch to the 100 mg tablet. 14 tablet 12/04/2023 01/20/2024 Discontinued Start: 06-04-2023 End: 06-01-2024 take 1 tablet by mouth twice daily lacosamide (VIMPAT) 100 mg tab Indications: Focal epilepsy (HCC) Take 1 tablet by mouth two times a day for 180 days. 180 tablet 1 12/04/2023 01/20/2024 Discontinued Start: 05-28-2023 End: 07-26-2023 take 1 tablet by mouth twice daily lacosamide (VIMPAT) 50 mg tab Indications: Partial symptomatic epilepsy with complex partial seizures, intractable, without status epilepticus (HCC) Take 1 tablet by mouth two times a day for 7 days. Then switch to the 100 mg tablet. 14 tablet 0 05/28/2023 07/26/2023 Discontinued Comment on above: Take 1 tablet by alis th two times a day for 7 days. Then switch to the 100 mg tablet. Take 1 tablet by alis th two times a day for 180 days. Do not start before June 04, 2023. Take 1 tablet by alis th two times a day for 180 days. levETIRAcetam 1000 mg oral tablet (20 sources) Start: End: take 1 tablet by mouth twice daily levETIRAcetam (KEPPRA) 1,000 mg tablet Take 1 tablet by mouth two times a day. 180 tablet 1 01/04/2025 07/03/2025 Active Start: 01-31-2022 End: 01-22-2023 take 1 tablet by mouth twice daily levETIRAcetam (KEPPRA) 750 mg tablet Indications: Seizure disorder (HCC) Take 1 tablet by mouth twice daily. 180 tablet 07/24/2022 10/24/2022 Discontinued Start: 08-25-2021 take 500 mg by mouth at breakfast Levetiracetam Active 500 MG PO WITH BREAKFAST August 25, 2021 10:42am Start: 08-25-2021 take 1000 mg by mout h twice daily Levetiracetam Active 1000 MG PO TWICE A DAY August 25, 2021 1:00am Start: 08-25-2021 take 750 mg by mouth twice andre ly Levetiracetam Active 750 MG PO TWICE A DAY August 25, 2021 1:00am Start: 07-31-2021 End: 01-27-2022 take 1 tablet by mouth twice daily levETIRAcetam (KEPPRA) 750 mg tablet Indications: Seizure disorder (HCC) Take 1 tablet by mouth twice daily. 180 tablet 1 07/31/2021 01/27/2022 Active Start: 07-22-2020 End: 01-26-2021 levETIRAcetam (KEPPRA) 500 m g tablet Indications: Seizure disorder (HCC) Take 1 tab in AM and 1.5 tabs in PM. 75 tablet 5 07/22/2020 01/26/2021 Discontinued Start: 12-10-2017 End: 12-20-2018 take 500 mg by mouth twice daily Levetiracetam Discont inued 500 MG PO TWICE A DAY 60 December 10, 2017 12:00am December 20, 2018 3:01pm Comment on above: Take 1 tablet by alis th twice daily. Take 1 tablet by alis th two times a day. miconazole nitrate 20 mg/ml topical cream (1 source) Azole Antifungal Start: 07-16-19 End: 07-23-19 miconazole 2 % cream Apply to affected area two times a day for 7 days. 28 g 07/16/2024 07/23/2024 Active ondansetron 4 mg disintegrating oral tablet (20 sources) Serotonin-3 Receptor Antagonist Start: 08-24-19 take 1 tablet by mouth every eight hours as needed for nausea ondansetron orally disintegrating (ZOFRAN ODT) 4 mg disintegrating tablet dissolve one tablet on the tongue every 8 hours as needed for nausea 08/23/2024 Active Start: 03-28-2023 End: 10-04-2023 take 1 tablet by mouth every eight hours as needed ondansetron (ZOFRAN) 4 mg tablet Take 1 tablet by mouth every 8 hours as needed for nausea/vomiting. 20 tablet 1 03/28/2023 09/11/2023 Discontinued Start: 02-24-2023 End: 09-22-2023 take 4 mg by mouth every eight hours as needed Ondansetron Discontinued 4 MG PO EVERY 8 HOURS NEEDED February 24, 2023 12:00am September 22, 2023 9:12pm Start: 07-31-2022 End: 10-11-2022 take 1 tablet by mouth every six hours as needed ondansetron orally disintegrating (ZOFRAN ODT) 4 mg disintegrating tablet Take 1 tablet by mouth every 6 hours as needed. 10 tablet 07/31/2022 10/11/2022 Discontinued (Course of therapy completed) Comment on above: Take 1 tablet by alis th every 6 hours as needed. Take 1 tablet by alis th every 8 hours as needed for nausea/vomiting. oxyCODONE hydrochloride 5 mg oral tablet (3 sources) Opioid Agonist Start: 09-24-2023 take 5 mg by mouth every four hours as needed for pain Oxycodone Active 5 MG PO EVERY 4 HOURS NEEDED 03 27September 24, 2023 as needed for pain Start: 09-04-2023 End: 09-07-2023 take 1 tablet by mouth every six hours as needed for pain oxyCODONE IR (ROXICODONE) 5 mg immediate release tablet Indications: Postoperative state Take 1 tablet by mouth every 6 hours as needed for pain for up to 3 days. 12 tablet 0 09/04/2023 09/07/2023 Active Comment on above: Take 1 tablet by alis every 6 hours as needed for pain for up to 3 days. polyethylene glycol 3350 066825 mg / potassium chloride 2970 mg / sodium bicarbonate 6740 mg / sodium chloride 5860 mg / sodium sulfate 31829 mg powder for oral solution (2 sources) Osmotic Laxative Start: 11-06-2024 End: 11-06-2024 peg 3350-Electrolytes (GOLYTELY) 236-22.74-6.74 -5.86 gram suspension Indications: Nausea , Gastro-esophageal reflux disease without esophagitis , Epigastric pain , Other constipation , Nausea and vomiting, unspecified vomiting type , Encounter for screening for malignant neoplasm of colon , Decreased appetite Take 4,000 mL by mouth one time only for 1 dose. 1 each 11/06/2024 11/06/2024 Active predniSONE 10 mg oral tablet (5 sources) Start: 09-11-2023 End: 09-16-2023 predniSONE 10 mg tablet pack Take 1 tablet by mouth as directed for 5 days. 3 tabs qday x 2 days, then 2 tabs x 2 days, one tab for one day 11 tablet 0 09/11/2023 09/16/2023 Active Start: 08-26-2023 End: 08-31-2023 take 2 tablets by mouth once daily predniSONE (DELTASONE) 20 mg tablet Take 2 tablets by mouth once daily for 5 days. 10 tablet 0 08/26/2023 08/31/2023 Active Start: 10-11-2022 End: 10-23-2022 predniSONE (DELTASONE) 10 mg tablet Take 4 tabs daily x 3 days, then 3 tabs x 3 days, 2 tabs x 3 days, then 1 tab x3 days with food. 30 tablet 0 10/11/2022 10/23/2022 Active Start: 11-21-2021 End: 11-30-2021 predniSONE (DELTASONE) 10 mg tablet Take 4 tabs daily for 3 days, then 2 tabs daily for 3 days, then 1 tab daily for 3 days with food. 21 tablet 0 11/21/2021 11/30/2021 Active Start: 03-22-2021 End: 11-21-2021 take 1 tablet by mouth once at mealtime predniSONE (DELTASONE) 20 mg tablet TAKE BY MOUTH FIRST AND SECOND DAY=4 TABLETS IN THE MORNING WITH FOOD; THIRD AND FOURTH DAY=3 TABLETS IN THE MORNING WITH FOOD; FIFTH AND SIXTH DAY=2 TABLETES WITH FOOD; SEVEN THROUGH 12 DAYS=1 TABLET IN THE MORNING WITH FOOD. 24 tablet 0 03/22/2021 11/21/2021 Discontinued Comment on above: Take 4 tabs daily fo r 3 days, then 2 tabs daily for 3 days, then 1 tab daily for 3 days with food. TAKE BY MOUTH FIRST AND SECOND DAY=4 TABLETS IN THE MORNING WITH FOOD; THIRD AND FOURTH DAY=3 TABLETS IN THE MORNING WITH FOOD; FIFTH AND SIXTH DAY=2 TABLETES WITH FOOD; SEVEN THROUGH 12 DAYS=1 TABLET IN THE MORNING WITH FOOD. Take 4 tabs daily x 3 days, then 3 tabs x 3 days, 2 tabs x 3 days, then 1 tab x3 days with food. Take 2 tablets by mo [facility] once daily for 5 days. Take 1 tablet by alis as directed for 5 days. 3 tabs qday x 2 days, then 2 tabs x 2 days, one tab for one day promethazine hydrochloride 25 mg oral tablet (20 sources) Phenothiazine Start: 01-16-20 End: 01-23-20 take 1 tablet by mouth every six hours as needed promethazine (PHENERGAN) 25 mg tablet Take 1 tablet by mouth every 6 hours as needed for nausea/vomiting for up to 7 days. 20 tablet 01/15/2025 01/22/2025 Active Start: 12-25-2023 End: 07-01-2024 take 1 tablet by mouth every six hours as needed for nausea promethazine (PHENERGAN) 25 mg tablet Indications: Epigastric pain Take 1 tablet by mouth every 6 hours as needed for nausea/vomiting. 60 tablet 1 12/25/2023 07/01/2024 Discontinued (Course of therapy completed) Start: 12-19-2022 End: 02-13-2023 take 1 tablet by mouth every six hours as needed promethazine (PHENERGAN) 25 mg tablet Take 1 tablet by mouth every 6 hours as needed. 30 tablet 1 12/19/2022 02/13/2023 Discontinued Comment on above: Take 1 tablet by alis every 6 hours as needed. rizatriptan 10 mg oral tablet (20 sources) Serotonin-1b and Serotonin-1d Receptor Agonist Start: 024 take 1 tablet by mouth every two hours as needed for headache rizatriptan (MAXALT) 10 mg tablet Indications: Migraine without aura and with status migrainosus, not intractable Take 1 tablet (10 mg) by mouth as needed (at onset of headache. May repeat after 2 hours.). Do not exceed 30 mg per day. 9 tablet 3 05/22/2024 Active sod sulf-pot chloride-mag sulf (SUTAB) 1.479-0.188- 0.225 gram tab (2 sources) Start: 025 End: 025 sod sulf-pot chloride-mag sulf (SUTAB) 1.479-0.188- 0.225 gram tab Indications: Nausea , Epigastric pain , Other constipation Take 12 tablets by mouth as directed for 2 days. Follow instructions that have been given to you by your provider's office. (Part 1, take 12 tablets. Part 2, take 12 tablets). 24 tablet 11/06/2024 11/08/2024 Active triamcinolone acetonide 1 mg/ml topical cream (20 sources) Corticosteroid Start: 025 triamcinolone acetonide (KENALOG) 0.1 % cream Indications: Rash and nonspecific skin eruption Apply to affected areas twice daily for 2 weeks. 80 g 1 08/04/2024 Active Completed/Discontinued Medications Medication Drug Class(es) Dates Sig (Normalized) Sig (Original) acetaminophen 500 mg oral tablet (4 sources) Start: 09-04-2023 End: 10-04-2023 take 2 tablets by mouth every six hours as needed acetaminophen (TYLENOL EXTRA STRENGTH) 500 mg tablet Take 2 tablets by mouth every 6 hours as needed for pain. 90 tablet 0 09/04/2023 09/11/2023 Discontinued Comment on above: Take 2 tablets by [facility] every 6 hours as needed for pain. acetaminophen 325 mg / HYDROcodone bitartrate 5 mg oral tablet (4 sources) Opioid Agonist Start: 02-24-2023 End: 09-22-2023 take 1 tablet by mouth every six hours as needed Hydrocodone-Acetami nophen Discontinued 1 TABLET PO EVERY 6 HOURS NEEDED 10 February 24, 2023 September 22, 2023 9:12pm Start: 02-05-2022 take 1 tablet by alis th every six hours as needed Hydrocodone-Acetaminophen Active 1 TABLE T PO EVERY 6 HOURS NEEDED 10 February 05, 2022 acetaminophen 325 mg / oxyCODONE hydrochloride 5 mg oral tablet (20 sources) Opioid Agonist Start: 02-20-2021 End: 10-11-2022 take 1 tablet by mouth every six hours as needed oxyCODONE-acetaminophen (PERCOCET) 5-325 mg tablet Indications: Plica of knee, right Take 1 tablet by mouth every 6 hours as needed. 15 tablet 02/20/2021 10/11/2022 Discontinued (Course of therapy completed) Comment on above: Take 1 tablet by alis th every 6 hours as needed. amoxicillin 500 mg oral capsule (4 sources) Penicillin-class Antibacterial Start: 12-17-2024 End: 12-27-2024 take 1 capsule by mouth twice daily amoxicillin (AMOXIL) 500 mg capsule Take 1 capsule by mouth two times a day for 10 days. 20 capsule 12/17/2024 12/27/2024 Start: 08-05-2024 End: 08-15-2024 take 1 capsule by mouth twice daily amoxicillin (AMOXIL) 500 mg capsule Take 1 capsule by mouth two times a day for 10 days. 20 capsule 08/05/2024 08/15/2024 Active Start: 09-21-2022 End: 10-01-2022 take 1 capsule by mouth twice daily amoxicillin (AMOXIL) 500 mg capsule Take 1 capsule by mouth twice daily for 10 days. 20 capsule 0 09/21/2022 10/01/2022 Active Comment on above: Take 1 capsule by mo [facility] twice daily for 10 days. atogepant (QULIPTA) 60 mg tablet (3 sources) Start: 08-26-2024 End: 08-26-2024 take 1 tablet by mouth once daily atogepant (QULIPTA) 60 mg tablet Indications: Migraine without aura and with status migrainosus, not intractable Take 1 tablet by mouth once daily. 30 tablet 3 08/26/2024 08/26/2024 Discontinued Start: 05-22-2024 End: 05-25-2024 take 1 tablet by mouth once daily atogepant (QULIPTA) 60 mg tablet Indications: Migraine without aura and with status migrainosus, not intractable Take 1 tablet (60 mg) by mouth once daily. 30 tablet 3 05/22/2024 05/25/2024 Discontinued Start: 05-22-2024 take 1 tablet by alis th once daily atogepant (QULIPTA) 60 mg tablet Indications: Migraine without aura and with status migrainosus, not intractable Take 1 tablet (60 mg) by mouth once daily. 30 tablet 3 05/22/2024 Active benzonatate 100 mg oral capsule (10 sources) Non-narcotic Antitussive Start: 04-29-2024 End: 07-01-2024 take 1 capsule by mouth three times daily as needed benzonatate (TESSALON PERLES) 100 mg capsule Indications: Acute cough Take 1 capsule by mouth three times a day as needed. 30 capsule 04/29/2024 07/01/2024 Discontinued (Course of therapy completed) betamethasone 3 mg/ml / betamethasone acetate 3 mg/ml injectable suspension (2 sources) Corticosteroid Start: 01-05-2025 End: 01-05-2025 betamethasone acetate-betamethas one sodium phosphate 12 mg injection (CELESTONE) Start: 01-05-2025 End: 01-05-2025 12 mg, Injection - FOR ORTHO USE ONLY, ONCE, 1 dose, Starting on Sat01/05/25 at 1622, Until Sat01/05/25 at 1622 famotidine 20 mg oral tablet (20 sources) Histamine-2 Receptor Antagonist Start: 01-15-2025 End: 01-29-2025 take 1 tablet by mouth twice daily famotidine (PEPCID) 20 mg tablet Take 1 tablet by mouth two times a day for 14 days. 28 tablet 01/15/2025 01/29/2025 Start: 11-21-2022 End: 02-13-2023 take 1 tablet by mouth once daily at bedtime famotidine (PEPCID) 40 mg tablet Take 1 tablet by mouth daily at bedtime. 90 tablet 0 11/21/2022 02/13/2023 Discontinued Comment on above: Take 1 tablet by alis th daily at bedtime. ferrous sulfate 325 mg oral tablet (20 sources) Start: 11-23-2022 End: 12-19-2022 take 1 tablet by mouth twice daily at mealtime ferrous sulfate 325 mg (65 mg iron) tablet Take 1 tablet by mouth twice daily with meals. 60 tablet 1 11/23/2022 12/19/2022 Discontinued (Discontinued by Patient) Start: 07-30-2019 End: 10-11-2022 take 1 tablet by mouth twice daily at mealtime ferrous sulfate 325 mg (65 mg iron) tablet Indications: Iron deficiency anemia, unspecified iron deficiency anemia type Take 1 tablet by mouth twice daily with meals. 60 tablet 1 07/30/2019 10/11/2022 Discontinued (Course of therapy completed) Comment on above: Take 1 tablet by alis th twice daily with meals. 1.5 ml fremanezumab-vfrm 150 mg/ml auto-injector (12 sources) Start: End: inject 1.5 mL by subcutaneous injection every month fremanezumab-vfrm (AJOVY AUTOINJECTOR) 225 mg/1.5 mL auto-injector Indications: Migraine without aura and with status migrainosus, not intractable Inject 1.5 mL subcutaneously once every month. Do not shake. 1.5 mL 5 05/25/2024 08/26/2024 Discontinued hydrOXYzine hydrochloride 25 mg oral tablet (20 sources) Antihistamine Start: End: take 1-2 tablets by mouth at bedtime hydrOXYzine HCl (ATARAX) 25 mg tablet Indications: Rash and nonspecific skin eruption Take 1-2 tablets by mouth at bedtime. Can cause drowsiness. 60 tablet 09/10/2024 02/16/2025 Discontinued ibuprofen 600 mg oral tablet (5 sources) Nonsteroidal Anti-inflammatory Drug Start: End: take 1 tablet by mouth every six hours as needed ibuprofen (MOTRIN) 600 mg tablet Take 1 tablet by mouth every 6 hours as needed for pain. 90 tablet 0 09/04/2023 09/11/2023 Discontinued Start: 03-17-2019 take 600 mg by mouth every eight hours as needed Ibuprofen Active 600 MG PO EVERY 8 HOURS NEEDED March 17, 2019 4:04pm Comment on above: Take 1 tablet by alis th every 6 hours as needed for pain. 5 ml iron sucrose 20 mg/ml injection (20 sources) Parenteral Iron Replacement Start: 12-07-2022 End: 02-13-2023 iron sucrose 200 mg injection (VENOFER) 10 ml lidocaine hydrochloride 10 mg/ml injection (2 sources) Antiarrhythmic, Amide Local Anesthetic Start: 01-05-2025 End: 01-05-2025 lidocaine (PF) 10 mg/mL (1 %) 3 mL injection (XYLOCAINE) Start: 01-05-2025 End: 01-05-2025 3 mL, Injection - FOR ORTHO USE ONLY, ONCE, 1 dose, Starting on Sat01/05/25 at 1622, Until Sat01/05/25 at 1622 methylPREDNISolone (6 sources) Corticosteroid Start: 05-22-2024 End: 07-01-2024 MEDROL, DUSTY, 4 mg Dose-Pack Indications: Migraine without aura and with status migrainosus, not intractable Take it as prescribed on the package 21 tablet 05/22/2024 07/01/2024 Discontinued (Course of therapy completed) Start: 05-22-2024 MEDROL, DUSTY, 4 mg Dose-Pack Indications: Migraine without aura and with status migrainosus, not intractable Take it as prescribed on the package 21 tablet 05/22/2024 Active metoclopramide 5 mg oral tablet (11 sources) Dopamine-2 Receptor Antagonist Start: 08-26-2024 End: 11-06-2024 take 1 tablet by mouth three times daily metoclopramide HCl (REGLAN) 5 mg tablet Indications: Migraine without aura and with status migrainosus, not intractable Take 1 tablet by mouth three times a day. 15 tablet 08/26/2024 11/06/2024 Discontinued omeprazole 40 mg delayed release oral capsule (20 sources) Proton Pump Inhibitor Start: 01-08-2024 End: 11-06-2024 take 1 capsule by mouth twice daily omeprazole (PRILOSEC) 40 mg capsule Indications: Epigastric pain Take 1 capsule by mouth two times a day. 180 capsule 1 03/04/2024 11/06/2024 Discontinued Start: 12-25-2023 End: 03-24-2024 take 1 capsule by mouth once daily omeprazole (PRILOSEC) 40 mg capsule Indications: Epigastric pain Take 1 capsule by mouth once daily. 90 capsule 0 12/25/2023 01/08/2024 Discontinued Start: 06-17-2022 End: 02-24-2023 take 40 mg by mouth once daily Omeprazole Discontinued 40 MG PO DAILY June 17, 2022 1:00am February 24, 2023 8:57pm pantoprazole 40 mg delayed release oral tablet (20 sources) Proton Pump Inhibitor Start: 11-06-2024 End: 11-06-2025 take 1 tablet by mouth twice daily pantoprazole DR (PROTONIX) 40 mg tablet Take 1 tablet by mouth two times a day. 60 tablet 11 11/06/2024 02/16/2025 Discontinued microencapsulated potassium chloride 20 meq extended release oral tablet (4 sources) Start: 07-31-2022 End: 10-11-2022 take 1 tablet by mouth once daily potassium chloride ER (K-DUR, KLOR-CON) 20 mEq tablet Take 1 tablet by mouth once daily. 4 tablet 07/31/2022 10/11/2022 Discontinued (Course of therapy completed) Comment on above: Take 1 tablet by alis th once daily. propranolol hydrochloride 10 mg oral tablet (12 sources) beta-Adrenergic Harsha Start: 06-08-2023 End: 06-07-2024 take 1 tablet by mouth three times daily propranolol (INDERAL) 10 mg tablet Take 1 tablet by mouth three times a day. 90 tablet 11 06/08/2023 09/11/2023 Discontinued Comment on above: Take 1 tablet by alis th three times a day. sucralfate 1000 mg oral tablet (19 sources) Aluminum Complex Start: 01-15-2025 End: 01-29-2025 take 1 tablet by mouth four times daily sucralfate (CARAFATE) 1 gram tablet Take 1 tablet by mouth four times daily for 14 days. 56 tablet 01/15/2025 01/29/2025 Start: 10-27-2024 End: 01-08-2025 take 1 tablet by mouth four times daily sucralfate (CARAFATE) 1 gram tablet Take 1 tablet by mouth four times daily. 360 tablet 10/27/2024 01/08/2025 Discontinued Start: 10-26-2024 End: 10-27-2024 take 10 mL by mouth at bedtime sucralfate (CARAFATE) 1 00 mg/mL suspension Indications: Nausea Take 10 mL by mouth before meals and at bedtime. 473 mL 1 10/26/2024 10/27/2024 Discontinued sulfamethoxazole 800 mg / trimethoprim 160 mg oral tablet (6 sources) Dihydrofolate Reductase Inhibitor Antibacterial, Sulfonamide Antimicrobial Start: 02-05-2022 End: 10-11-2022 take 1 tablet by mouth twice daily sulfamethoxazole-trimethoprim (BACTRIM DS,SEPTRA DS) 800-160 mg per tablet Take 1 tablet by mouth twice daily. 02/05/2022 10/11/2022 Discontinued (Course of therapy completed) Start: 02-05-2022 take 1 tablet by alis th twice daily Sulfamethoxazole-Trimethoprim Active 1 T ABLET PO TWICE A DAY February 05, 2022 12:00am Comment on above: Take 1 tablet by alis th twice daily. topiramate 25 mg oral tablet (3 sources) Start: 06-03-2023 End: 06-03-2024 take 1 tablet by mouth twice daily, then take 2 tablets by mouth twice daily topiramate (TOPAMAX) 25 mg tablet Take by mouth. One tablet twice daily for a week; then two tablets twice daily thereafter. 120 tablet 11 06/03/2023 06/07/2023 Discontinued Comment on above: Take by mouth. One t ablet twice daily for a week; then two tablets twice daily thereafter. Problems Active Problems Problem Classification Problem Date Documented Da te Episodic/Chronic Abdominal pain (20 sources) Right sided abdominal pain; Translations: [Unspecified abdominal pain] Onset: 5 03-18-2019 Episodic Allergic reactions (1 source) Atopic dermatitis of scalp; Translations: [Atopic dermatitis, unspecified] 12-25-2023 Chronic Allergic reactions (10 sources) Contact dermatitis caused by chemical; Translations: [Unspecified contact dermatitis due to other chemical products] Onset: 5 04-24-2018 Episodic Anxiety disorders (20 sources) Anxiety; Translations: [Anxiety disorder, unspecified] Onset: 9 08-28-2018 Chronic Cancer of cervix (1 source) Low grade squamous intraepithelial lesion on cervical Papanicolaou smear; Translations: [Low grade squamous intraepithelial lesion on cytologic smear of cervix (LGSIL)] Episodic Conditions associated with dizziness or vertigo (5 sources) Dizziness; Translations: [Dizziness and giddiness] 11-26-2022 Episodic Deficiency and other anemia (1 source) Iron deficiency anemia due to blood loss; Translations: [Iron deficiency anemia secondary to blood loss (chronic)] 01-28-2023 Chronic Endometriosis (2 sources) Uterine adenomyosis; Translations: [Adenomyosis] 08-08-2023 Chronic Epilepsy; convulsions (20 sources) Localization-related epilepsy; Translations: [Localization-related (focal) (partial) symptomatic epilepsy and epileptic syndromes with simple partial seizures, not intractable, without status epilepticus] Onset: 8 03-12-2018 Chronic Esophageal disorders (20 sources) Gastroesophageal reflux disease; Translations: [Gastro-esophageal reflux disease without esophagitis] Onset: 3 02-13-2023 Chronic Gastritis and duodenitis (2 sources) Atrophic gastritis; Translations: [Chronic atrophic gastritis without bleeding] Onset: 5 01-19-2025 Chronic Gastritis and duodenitis (6 sources) Gastritis; Translations: [Gastritis, unspecified, without bleeding] 06-25-2022 Episodic Headache; including migraine (6 sources) Refractory migraine with aura; Translations: [Migraine with aura, intractable, without status migrainosus] Onset: 5 06-04-2023 Chronic Headache; including migraine (2 sources) Headache; Translations: [Intractable headache, unspecified chronicity pattern, unspecified headache type] 06-03-2023 Episodic Headache; including migraine (1 source) Headache; including migraine; Translations: [Nonintractable headache, unspecified chronicity pattern, unspecified headache type] Onset: 4 Immunizations and screening for infectious disease (4 sources) Anti-nuclear factor positive; Translations: [Other specified abnormal immunological findings in serum] Onset: 5 02-10-2025 Episodic Inflammatory diseases of female pelvic organs (4 sources) Abscess of female pelvis; Translations: [Female pelvic inflammatory disease, unspecified] 09-22-2023 Episodic Joint disorders and dislocations; trauma-related (7 sources) Chondromalacia of right patella; Translations: [Chondromalacia patellae, right knee] Onset: 4 09-05-2023 Chronic Malaise and fatigue (2 sources) Fatigue; Translations: [Other fatigue] 01-28-2023 Episodic Menstrual disorders (20 sources) Menometrorrhagia; Translations: [Excessive and frequent menstruation with irregular cycle] Onset: 3 Chronic Mood disorders (20 sources) Recurrent major depressive episodes; Translations: [Major depressive disorder, recurrent, unspecified] Onset: 9 08-28-2018 Chronic Mycoses (2 sources) Tinea corporis; Translations: [Tinea corporis] 06-29-2024 Episodic Nausea and vomiting (20 sources) Postoperative nausea and vomiting; Translations: [Nausea with vomiting, unspecified] Onset: 6 02-13-2023 Episodic Nonspecific chest pain (15 sources) Chest pain; Translations: [Chest pain, unspecified] 12-01-2021 Episodic Nutritional deficiencies (20 sources) Vitamin D deficiency; Translations: [Vitamin D deficiency, unspecified] Onset: 8 06-15-2018 Chronic Other acquired deformities (5 sources) Lordosis deformity of spine; Translations: [Lordosis, unspecified, site unspecified] 02-10-2025 Chronic Other acquired deformities (5 sources) Postural kyphosis; Translations: [Postural kyphosis, site unspecified] 02-10-2025 Chronic Other acquired deformities (1 source) Lordosis, unspecified, site unspecified; Translations: [Lordosis] Onset: 5 Chronic Other acquired deformities (1 source) Postural kyphosis, site unspecified; Translations: [Postural kyphosis, unspecified spinal region] Onset: 5 Chronic Other aftercare (6 sources) Surgical follow-up; Translations: [Encounter for follow-up examination after completed treatment for conditions other than malignant neoplasm] 03-13-2023 Episodic Other aftercare (1 source) Removal of sutures done; Translations: [Encounter for removal of sutures] 06-01-2024 Episodic Other connective tissue disease (2 sources) Pain in right foot; Translations: [Pain in right foot] Episodic Other connective tissue disease (1 source) Pain in left foot; Translations: [Pain in left foot] 10-24-2023 Episodic Other connective tissue disease (1 source) Pain in right finger(s); Translations: [Pain in right finger(s)] Onset: 4 Episodic Other connective tissue disease (2 sources) Pelvic floor dysfunction; Translations: [Other specified disorders of muscle] 02-28-2025 Episodic Other connective tissue disease (1 source) Other specified disorders of muscle; Translations: [Pelvic floor dysfunction] Onset: Episodic Other disorders of stomach and duodenum (1 source) Intestinal metaplasia of gastric mucosa; Translations: [Intestinal metaplasia of stomach] 01-19-2025 Episodic Other disorders of stomach and duodenum (1 source) Indigestion 02-10-2025 Episodic Other ear and sense organ disorders (1 source) Tinnitus of vascular origin; Translations: [Pulsatile tinnitus, right ear] 06-03-2023 Episodic Other female genital disorders (3 sources) Abnormal uterine bleeding; Translations: [Abnormal uterine and vaginal bleeding, unspecified] 01-30-2023 Chronic Other female genital disorders (2 sources) Abnormal vaginal bleeding; Translations: [Abnormal uterine and vaginal bleeding, unspecified] 09-22-2023 Chronic Other female genital disorders (2 sources) Abnormal uterine and vaginal bleeding, unspecified; Translations: [Other specified noninflammatory disorders of vagina] 09-22-2023 Chronic Other gastrointestinal disorders (8 sources) Constipation; Translations: [Other constipation] 11-06-2024 Episodic Other gastrointestinal disorders (7 sources) Chronic constipation; Translations: [Other constipation] 02-16-2025 Episodic Other gastrointestinal disorders (5 sources) Abdominal bloating; Translations: [Abdominal distension (gaseous)] 02-16-2025 Episodic Other gastrointestinal disorders (2 sources) Other constipation; Translations: [Chronic constipation] Onset: Episodic Other gastrointestinal disorders (1 source) Abdominal distension (gaseous); Translations: [Bloating] Onset: Episodic Other inflammatory condition of skin (1 source) Scalp psoriasis; Translations: [Psoriasis, unspecified] 12-25-2023 Chronic Other inflammatory condition of skin (1 source) Psoriasis vulgaris; Translations: [Psoriasis vulgaris] 08-04-2024 Chronic Other liver diseases (2 sources) Lesion of liver; Translations: [Liver disease, unspecified] 01-08-2024 Chronic Other lower respiratory disease (1 source) Dyspnea; Translations: [Shortness of breath] Episodic Other lower respiratory disease (4 sources) Cough; Translations: [Acute cough] 04-13-2024 Episodic Other nervous system disorders (1 source) Other chronic pain; Translations: [Chronic pain of right knee] Onset: 5 Chronic Other nervous system disorders (1 source) Paresthesia; Translations: [Paresthesia of skin] 06-04-2023 Episodic Other nervous system disorders (1 source) Hypesthesia; Translations: [Hypoesthesia of skin] 06-03-2023 Episodic Other nervous system disorders (1 source) Other acute postprocedural pain; Translations: [Pain following surgery or procedure] Onset: 5 Episodic Other non-traumatic joint disorders (20 sources) Pain in right knee; Translations: [Pain in joint, lower leg] Onset: 1 09-20-2020 Episodic Other nutritional; endocrine; and metabolic disorders (1 source) Decrease in appetite; Translations: [Anorexia] 11-06-2024 Episodic Other screening for suspected conditions (not mental disorders or infectious disease) (13 sources) Patient encounter status; Translations: [Encounter for screening for lipoid disorders] Onset: 5 Episodic Other skin disorders (1 source) Multiple skin tags; Translations: [Other hypertrophic disorders of the skin] 01-08-2024 Episodic Other skin disorders (3 sources) Eruption; Translations: [Rash and other nonspecific skin eruption] 07-16-2024 Episodic Other upper respiratory infections (9 sources) Sore throat symptom; Translations: [Acute pharyngitis, unspecified] Onset: 5 Episodic Ovarian cyst (8 sources) Cyst of ovary; Translations: [Unspecified ovarian cyst, unspecified side] 03-18-2019 Episodic Pneumonia (except that caused by tuberculosis or sexually transmitted disease) (1 source) Left lower zone pneumonia; Translations: [Pneumonia, unspecified organism] 04-13-2024 Episodic Residual codes; unclassified (20 sources) Obstructive sleep apnea syndrome; Translations: [Obstructive sleep apnea (adult) (pediatric)] Onset: 9 08-28-2018 Chronic Residual codes; unclassified (1 source) Postoperative state; Translations: [Other specified postprocedural states] 09-23-2023 Episodic Residual codes; unclassified (1 source) Other specified postprocedural states; Translations: [Other postprocedural status] 09-24-2023 Episodic Residual codes; unclassified (1 source) Acquired absence of both cervix and uterus; Translations: [Acquired absence of both cervix and uterus] 09-24-2023 Episodic Residual codes; unclassified (1 source) Family history of breast cancer; Translations: [Family history of malignant neoplasm of breast] 11-06-2023 Episodic Residual codes; unclassified (1 source) Past history of procedure; Translations: [Other specified postprocedural states] 01-08-2024 Episodic Residual codes; unclassified (1 source) Early satiety; Translations: [Early satiety] 02-16-2025 Episodic Residual codes; unclassified (1 source) Early satiety; Translations: [Early satiety] Onset: 5 Episodic Unclassified (1 source) Intestinal metaplasia of stomach; Translations: [Intestinal metaplasia of stomach] Onset: Unclassified (1 source) Acute cough; Translations: [Acute cough] Onset: Urinary tract infections (10 sources) Pyelonephritis; Translations: [Tubulo-interstitial nephritis, not specified as acute or chronic] 02-13-2022 Episodic Viral infection (6 sources) Viral disease; Translations: [Viral infection, unspecified] 06-25-2022 Episodic Past or Other Problems Problem Classification Problem Date Documented Da te Episodic/Chronic Complications of surgical procedures or medical care (5 sources) Postoperative complication; 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] Onset: 10-02-2023 08-08-2023 Episodic Deficiency and other anemia (20 sources) Iron deficiency anemia; Translations: [Iron deficiency anemia, unspecified] Onset: 02-06-2018 02-06-2018 Episodic Deficiency and other anemia (20 sources) Anemia; Translations: [Anemia, unspecified] Onset: 03-20-2019 03-20-2019 Episodic Deficiency and other anemia (20 sources) Amanda-Jeff syndrome; 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] Onset: 12-13-2022 Episodic Genitourinary symptoms and ill-defined conditions (20 sources) Incomplete emptying of bladder; Translations: [Retention of urine, unspecified] Onset: 07-16-2024 07-16-2024 Episodic Joint disorders and dislocations; trauma-related (3 sources) Tear of medial meniscus of knee; Translations: [Other tear of medial meniscus, current injury, right knee, initial encounter] Onset: 02-07-2024 01-23-2024 Episodic Open wounds of extremities (2 sources) Laceration of right middle finger; Translations: [Laceration without foreign body of right middle finger with damage to nail, subsequent encounter] Onset: 06-01-2024 06-01-2024 Episodic Other aftercare (20 sources) Drug therapy finding; Translations: [Encounter for therapeutic drug level monitoring] Onset: 03-12-2018 Resolved: 04-24-2019 03-12-2018 Episodic Other aftercare (20 sources) Long-term current use of anticonvulsant; Translations: [Encounter for therapeutic drug level monitoring] Onset: 03-12-2018 03-12-2018 Episodic Other aftercare (1 source) Encounter for removal of sutures; Translations: [Visit for suture removal] Onset: 06-01-2024 Episodic Other complications of (20 sources) Spotting per vagina in ; Translations: [Spotting complicating , first trimester] Onset: 03-22-2016 Resolved: 11-23-2016 06-20-2021 Episodic Other complications of (20 sources) Urinary tract infection in ; Translations: [Unspecified infection of urinary tract in , unspecified trimester] Onset: 04-02-2016 Resolved: 11-23-2016 06-20-2021 Episodic Other complications of (20 sources) Rubella non-immune; Translations: [Supervision of other high risk pregnancies, unspecified trimester] Onset: 04-17-2016 Resolved: 11-23-2016 11-23-2016 Episodic Other complications of (20 sources) Abnormal findings on screening of mother; Translations: [Unspecified abnormal findings on screening of mother] Onset: 05-15-2016 Resolved: 11-23-2016 06-20-2021 Episodic Other connective tissue disease (20 sources) Ganglion cyst of right wrist; Translations: [Ganglion, right wrist] Onset: 04-24-2019 04-24-2019 Episodic Other connective tissue disease (20 sources) Synovial plica syndrome of right knee; Translations: [Plica syndrome, right knee] Onset: 02-20-2021 Resolved: 02-20-2021 02-20-2021 Episodic Other gastrointestinal disorders (20 sources) Splenomegaly; Translations: [Splenomegaly, not elsewhere classified] Onset: 03-20-2019 03-20-2019 Episodic Other and delivery including normal (20 sources) Normal ; Translations: [Encounter for supervision of normal , unspecified, unspecified trimester] Onset: 03-29-2016 Resolved: 11-23-2016 11-23-2016 Episodic Residual codes; unclassified (20 sources) Family history of cleft palate with cleft lip; Translations: [Family history of other congenital malformations, deformations and chromosomal abnormalities] Onset: 03-22-2016 Resolved: 11-23-2016 06-20-2021 Episodic Unclassified (2 sources) Patient encounter status 01-04-2025 Results Test Name Value Interpretation Reference Range Facility Fransisco Conrad 03-10-20 25 Cortisol [Mass/Vol] 16.9 ug/dL Normal 4.8-19.5 [facility] Comment on above: Order Comment: Speci men Type: BLOOD SPECIMEN Ordering Facility: [facility] Address: [address] [place] [address] Result Comment: Prov ided reference range is from 6-10 AM sample collection time. Cortisol Reference Range: 6-10 AM = 4.8-19.5 ug/dL, 4-8 PM = 2.5-11.9 ug/dL Performed By: #### 2 4323-8, 3040-3 #### [facility] CLIA [id number] [address] [place] [address] [place] CNPMarlena 03-09-2025 CNPN Telephone (GSTNOR) YAMIL NG ([id number]) 1985 F Date Time Provider Department 03/09/25 SHAVON LACEY GSTNOR During your visit today, we recorded the following information about you: Sandra Hughes 03/09/2025 12:27 PM Signed Called patient and left message to call back to schedule NM Gastric Emptying test, but also gave the phone number for Elizabeth VALLES [phone]. See below for copied message from [place] Advise Request Shavon Lacey MD to [facility] Clerical Pool (Selected Message) 03/08/25 3:44 PM Please help her schedule these tests. 03/08/25 3:44 PM Shavon Lacey MD signed 2 orders Shavon Lacey MD to Kaylie Meraz RN Kalessa, Melissa, APRN.TRACK WATCHMAN 03/08/25 3:43 PM Note See above Shavon Lacey MD to Yamil Ng 03/08/25 3:43 PM Yamil, Have you completed the gastric emptying test that was ordered for you? Is it bloating or pain or both that is making the issue of eating problematic? There have been no abnormal results thus far other than pelvic floor dysfunction and rectal hypersensitiviy. Thus far your colonoscopy, EGD and CT scan did not show any cause of those symptoms other than that noted by anorectal manometry. I would recommend that you complete the gastric emptying test and, if negative, we could consider a HIDA scan. I will order that test for you as well. I have also ordered a morning cortisol blood test and you should obtain this between the hours of 7 am and 8 am. There is no medication that I can give to decrease pain and bloating without ruling out other causes. What have you tried at home? Have you tried Ibgard or Fdgard tablets which are available over the counter and can help with spasm and bloating of the bowels. These are in the GI aisle and do cause some muscle relaxation of the stomach If you are having severe pain, I would recommend the emergency room. Last read by Yamil Ng at 3:50PM on 03/08/2025. Allergies As of Date: 03/09/2025 Noted Allergy Reaction BLEACH (SODIUM HYPOCHLORITE) 03/22/2016 2 - Rash LAMICTAL (LAMOTRIGINE) 06/16/2018 2 - Rash PINE TREES (TREES) 03/22/2016 2 - Rash 4 - Hives TOPIRAMATE 06/07/2023 2 - Rash TREE AND SHRUB POLLEN 09/22/2023 16 - Unknown Date Reviewed: 02/24/2025 Reviewed by: Mari Fuentes RN - Fully Assessed Reason for Visit: Appointment [[id number]] Prescriptions as of 03/10/2025 - lacosamide (VIMPAT) 150 mg tab Take 1 tablet by mouth two times a day for 180 days. - levETIRAcetam (KEPPRA) 1,000 mg tablet Take 1 tablet by mouth two times a day. - ondansetron orally disintegrating (ZOFRAN ODT) 4 mg disintegrating tablet dissolve one tablet on the tongue every 8 hours as needed for nausea - clobetasol (TEMOVATE) 0.05 % cream Apply to affected area twice daily Saturday-Saturday. Take weekends off. Do not use on face, armpits, neck, or groin. - Clobetasol Propionate (TEMOVATE) 0.05 % external solution Apply to affected areas on scalp twice daily Saturday-Saturday, take weekends off. May repeat as needed. - triamcinolone acetonide (KENALOG) 0.1 % cream Apply to affected areas twice daily for 2 weeks. - rizatriptan (MAXALT) 10 mg tablet Take 1 tablet (10 mg) by mouth as needed (at onset of headache. May repeat after 2 hours.). Do not exceed 30 mg per day. - topiramate (TOPAMAX) 25 mg tablet (Discontinued) Take by mouth. One tablet twice daily for a week; then two tablets twice daily thereafter. 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] 03/12/2018 Medication side effect [T88.7XXA] 03/12/2018 04/24/2019 Encounter for monitoring anticonvulsant therapy*03/12/2018 Vitamin D deficiency [E55.9] 06/15/2018 URI (obstructive sleep apnea) [G47.33] 08/28/2018 Anxiety [F41.9] 08/28/2018 Episode of recurrent major depressive disorder *08/28/2018 Splenomegaly [R16.1] 03/20/2019 Anemia [D64.9] 03/20/2019 Ganglion cyst of wrist, right [M67.431] 04/24/2019 Acute pain of right knee [M25.561] 09/20/2020 Plica of knee, right [M67.51] 02/20/2021 02/20/2021 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 Normal [facility] ANORECTAL MANOMET Tete 02-24-2025 PATIENT NAME: Yamil Ng PATIENT IDENTITY VERIFICATION COMPLETED USING TWO (2) IDENTIFIERS: Name and Date of confirmed by patient verbally. Referred by: Sam Yepezthe Reason for testing: constipation Ileoanal pouch: No SENSITIVE EXAMINATION CONSENT: The sensitive examination was discussed with the Patient or Patient's Authorized Iron Erector. As applicable, any other physician, advance practice provider, medical student, or other health professional student that will be observing or involved in the sensitive examination for educational or training purposes was discussed with the Patient or Authorized Iron Erector. The Patient or Authorized Iron Erector has agreed to proceed with the sensitive examination. Accounts Receivable Executive offered:Patient declines Anorectal: Perianal skin is intact. No erythema, induration or excoriation. No fissure, fistula or external hemorrhoids. Digital Rectal Exam: Anus: closed Rectal prolapse present: No Any noted rectal mass/lesion/ulcer: N/A Anorectal Manometry Testing: Disorders of rectoanal inhibitory reflex: A recto-anal inhibitory reflex (RAIR) was present. Rectoanal areflexia : No Disorders of anal tone and contractility: Mean anal resting pressure: 81 mmHg (Female normal 33-101, Male normal 38-114) Squeeze pressure increase: 74 mmHg (Female normal >45, Male normal >61) Anal Tone Normal Normal Contractility Disorders of Rectoanal co-ordination: Balloon expulsion: no Abnormal expulsion with dyssynergia Disorders of rectal sensation : Sensation Volume First sensation value 13 mL / Female Normal Range: 10-105 mL, Male Normal Range: 10-110 mL. Defecatory desire volume 31 mL / Female Normal Range: 30-200 mL, Male Normal Range: 40-190 mL. Maximum tolerated volume 57 mL / Female Normal Range: 65-285 mL, Male Normal Range 80-355 mL. Hypersensitivity Electronically signed by: Kelvin MATHEW, RN Department of Colorectal Surgery Procedural RN Per CC protocol, the patient is instructed to self-administer the enema before the manometry procedure. Results of the study may be affected if stool is present in the rectum at the time of the procedure. Clinical correlation is necessary with every manometry test. Please see colorectal pelvic floor consult note for recommended treatment plan. I have reviewed, verified, and confirmed the results of anorectal manometry, rectal sensation, tone and compliance testing and EMG testing. I agree with the impression as written above. Radha Christine, DO Colon & Rectal Surgery [facility] ANORECTAL MANOMET RYOrdered By: Radha Christine on 02-24-2025 [facility] Work Phone: Radiology Study observation (narrative) Vicki boston [facility] Work Phone: CNNURSEon 02-24-2025 CNNURSE Nurse Visit (CORSMN) YAMIL NG ([id number]) 1985 F Date Time Provider Department 02/24/25 10:30 AM KELVIN CHONG During your visit today, we recorded the following information about you: Referring Provider: SHAVON LACEY [[id number]] Allergies As of Date: 02/24/2025 Noted Allergy Reaction BLEACH (SODIUM HYPOCHLORITE) 03/22/2016 2 - Rash LAMICTAL (LAMOTRIGINE) 06/16/2018 2 - Rash PINE TREES (TREES) 03/22/2016 2 - Rash 4 - Hives TOPIRAMATE 06/07/2023 2 - Rash TREE AND SHRUB POLLEN 09/22/2023 16 - Unknown Date Reviewed: 02/16/2025 Reviewed by: Modesta Moran MA - Fully Assessed Reason for Visit: Manometry [780] Visit Diagnoses:Chronic constipation [K59.09] Bloating [R14.0] Order(s):ADULT [place] ANORECTAL MANOMETRY [6464559] Order #: [id number] Prescriptions as of 02/24/2025 - lacosamide (VIMPAT) 150 mg tab Take 1 tablet by mouth two times a day for 180 days. - levETIRAcetam (KEPPRA) 1,000 mg tablet Take 1 tablet by mouth two times a day. - ondansetron orally disintegrating (ZOFRAN ODT) 4 mg disintegrating tablet dissolve one tablet on the tongue every 8 hours as needed for nausea - clobetasol (TEMOVATE) 0.05 % cream Apply to affected area twice daily Saturday-Saturday. Take weekends off. Do not use on face, armpits, neck, or groin. - Clobetasol Propionate (TEMOVATE) 0.05 % external solution Apply to affected areas on scalp twice daily Saturday-Saturday, take weekends off. May repeat as needed. - triamcinolone acetonide (KENALOG) 0.1 % cream Apply to affected areas twice daily for 2 weeks. - rizatriptan (MAXALT) 10 mg tablet Take 1 tablet (10 mg) by mouth as needed (at onset of headache. May repeat after 2 hours.). Do not exceed 30 mg per day. - topiramate (TOPAMAX) 25 mg tablet (Discontinued) Take by mouth. One tablet twice daily for a week; then two tablets twice daily thereafter. 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] 03/12/2018 Medication side effect [T88.7XXA] 03/12/2018 04/24/2019 Encounter for monitoring anticonvulsant therapy*03/12/2018 Vitamin D deficiency [E55.9] 06/15/2018 URI (obstructive sleep apnea) [G47.33] 08/28/2018 Anxiety [F41.9] 08/28/2018 Episode of recurrent major depressive disorder *08/28/2018 Splenomegaly [R16.1] 03/20/2019 Anemia [D64.9] 03/20/2019 Ganglion cyst of wrist, right [M67.431] 04/24/2019 Acute pain of right knee [M25.561] 09/20/2020 Plica of knee, right [M67.51] 02/20/2021 02/20/2021 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 GERD (gastroesophageal reflux disease) [K21.9] 02/13/2023 Menorrhagia with irregular cycle [N92.1] 02/28/2023 Unable to empty bladder [R33.9] 07/16/2024 Encounter Status:Closed by KELVIN CHONG on 02/24/25 Normal [facility] CNOVon 02-24-2025 CNOV Office Visit (CORSMN ) YAMIL NG ([id number]) 1985 F Date Time Provider Department 02/24/25 11:00 AM LESLIE LUONG During your visit today, we recorded the following information about you: Weight Height 64.4 kg 1.6 m Leslie Luong APRN.[facility] 02/28/2025 12:24 PM Signed PELVIC FLOOR COLON AND RECTAL SURGERY Reason for visit: Review anorectal manometry History of Present Illness: Yamil Ng is a 39 year old FEMALE who was seen at the request of Dr. Lacey for anorectal manometry testing, rectal sensation testing. Ms. Ng was referred for testing due to symptoms of constipation and inappetence. GI Symptoms: Onset of issues: After childbirth, using TUMS often. Constipation started about 6 weeks. Previous bowels:normal Stool frequency: 2x times per week, prior to that was every other day Stool type: Type 3: Like a sausage but with cracks on it's surface Stool straining: mild straining Frequency of straining: sometimes Does anything make your symptoms better? Squatty potty stool Do you have accidental bowel leakage, fecal incontinence, or urgency with bowel movements? no Incomplete evacuation: Yes, feels like they are not emptying completely Maneuvers: moves and twists on toilet Current bowel regimen: Fiber gummy, alberto seeds Use of enemas or suppositories: no What medications have you tried in the past? : no Abdominal pressure/pain: +Bloated and nauseated Anorectal pain: no Vaginal/perineal pressure: no Feelings of prolapse :no Blood or mucous: once in a while, mucous. Very rarely bleeding. Hx of Surgery: see below Hx of Abuse/trauma/stress: no PMH: see below Previous PFPT:no GI provider: Abhijit Prior hysterectomy: Yes Urinary Symptoms: Urinary incontinence: with coughing Urinary frequency: No Obstetric history: 4 Para 4 Vaginal delivery: 4 c-sections. - Episiotomy: No - Tear: No - Forceps No Previous Testing Results include: Colonoscopy: Yes Date:01/13/25 - random biopsies: No - polyps: Yes Impression: - The examined portion of the ileum was normal. - One 2 mm polyp in the cecum, removed with a cold biopsy forceps. Resected and retrieved. - The examination was otherwise normal on direct and retroflexion views. Manometry: today: Normal anal tone, normal contractility, Abnormal expulsion with dyssynergia, hypersensitivity Defecography: No PAST MEDICAL HISTORY Diagnosis Date Anemia Complication of anesthesia nausea and vomiting Episode of recurrent major depressive disorder 08/28/2018 Family history of epilepsy aunt Hepatic hemangioma 01/20/2024 Hepatitis in viral diseases classified elsewhere(573.1) when she had mono Ovarian cyst 2004 PMH - PAST MEDICAL HISTORY OF Right Sciatica Seizure disorder (HCC) 02/04/2018 Vaginal hematoma PAST SURGICAL HISTORY Procedure Laterality Date DELIVERY ONLY , low cervical x4 DELIVERY ONLY 10/14/2016 COLPOSCOPY CERVIX VAG LOOP ELTRD BX CERVIX 2020 EXCISION GANGLION WRIST DORSAL/VOLAR PRIMARY Right HYSTEROSCOPY ENDOMETRIAL ABLATION N/A 02/28/2023 KNEE SURGERY HX Right shaved patella and removed fat pad LAP HYSTERECTOMY FOR UTERUS 250G OR LESS 09/04/2023 LIG/TRNSXJ FLP TUBE ABDL/VAG APPR UNI/BI Bilateral 10/14/2016 VAGINAL CUFF REPAIR 09/22/2023 exam under anesthesia, pelvic irrigation and insertion of intraabdominal drain Current Outpatient Medications Medication Sig Dispense Refill lacosamide (VIMPAT) 150 mg tab Take 1 tablet by mouth two times a day for 180 days. 180 tablet 1 levETIRAcetam (KEPPRA) 1,000 mg tablet Take 1 tablet by mouth two times a day. 180 tablet 1 ondansetron orally disintegrating (ZOFRAN ODT) 4 mg disintegrating tablet dissolve one tablet on the tongue every 8 hours as needed for nausea clobetasol (TEMOVATE) 0.05 % cream Apply to affected area twice daily Saturday-Saturday. Take weekends off. Do not use on face, armpits, neck, or groin. 60 g 2 Clobetasol Propionate (TEMOVATE) 0.05 % external solution Apply to affected areas on scalp twice daily Saturday-Saturday, take weekends off. May repeat as needed. 50 mL 3 triamcinolone acetonide (KENALOG) 0.1 % cream Apply to affected areas twice daily for 2 weeks. 80 g 1 rizatriptan (MAXALT) 10 mg tablet Take 1 tablet (10 mg) by mouth as needed (at onset of headache. May repeat after 2 hours.). Do not exceed 30 mg per day. 9 tablet 3 No current facility-administered medications for this visit. ALLERGIES Allergen Reactions Bleach (Sodium Hypo* Rash Lamictal [Lamotrigi* Rash [place] Trees [Trees] Rash, Hives Topiramate Rash Tree And Shrub Poll* Unknown FAMILY HISTORY Problem Relation Age of Onset Hypertension Father Diabetes Father Hyperlipidemia Father Cataract Father other (Diverticulosis) Father other (FIBROMYALGIA) Sister Pancreatitis Sister Ca (more content not included)... Normal [facility] HISTORY PHYSICALon HISTORY PHYSICAL HNO ID: [id number] Author: LESLIE LUONG APRN.TRACK WATCHMAN Service: ? Author Type: Nurse Practitioner Type: H&P Filed: 02/28/2025 12:24 Note Text: PELVIC FLOOR COLON AND RECTAL SURGERY Reason for visit: Review anorectal manometry History of Present Illness: Yamil Ng is a 39 year old FEMALE who was seen at the request of Dr. Lacey for anorectal manometry testing, rectal sensation testing. Ms. Ng was referred for testing due to symptoms of constipation and inappetence. GI Symptoms: Onset of issues: After childbirth, using TUMS often. Constipation started about 6 weeks. Previous bowels:normal Stool frequency: 2x times per week, prior to that was every other day Stool type: Type 3: Like a sausage but with cracks on it's surface Stool straining: mild straining Frequency of straining: sometimes Does anything make your symptoms better? Squatty potty stool Do you have accidental bowel leakage, fecal incontinence, or urgency with bowel movements? no Incomplete evacuation: Yes, feels like they are not emptying completely Maneuvers: moves and twists on toilet Current bowel regimen: Fiber gummy, alberto seeds Use of enemas or suppositories: no What medications have you tried in the past? : no Abdominal pressure/pain: +Bloated and nauseated Anorectal pain: no Vaginal/perineal pressure: no Feelings of prolapse :no Blood or mucous: once in a while, mucous. Very rarely bleeding. Hx of Surgery: see below Hx of Abuse/trauma/stress: no PMH: see below Previous PFPT:no GI provider: Abhijit Prior hysterectomy: Yes Urinary Symptoms: Urinary incontinence: with coughing Urinary frequency: No Obstetric history: 4 Para 4 Vaginal delivery: 4 c-sections. - Episiotomy: No - Tear: No - Forceps No Previous Testing Results include: Colonoscopy: Yes Date:01/13/25 - random biopsies: No - polyps: Yes Impression: - The examined portion of the ileum was normal. - One 2 mm polyp in the cecum, removed with a cold biopsy forceps. Resected and retrieved. - The examination was otherwise normal on direct and retroflexion views. Manometry: today: Normal anal tone, normal contractility, Abnormal expulsion with dyssynergia, hypersensitivity Defecography: No PAST MEDICAL HISTORY Diagnosis Date Anemia Complication of anesthesia nausea and vomiting Episode of recurrent major depressive disorder 08/28/2018 Family history of epilepsy aunt Hepatic hemangioma 01/20/2024 Hepatitis in viral diseases classified elsewhere(573.1) when she had mono Ovarian cyst 2004 PMH - PAST MEDICAL HISTORY OF Right Sciatica Seizure disorder (HCC) 02/04/2018 Vaginal hematoma PAST SURGICAL HISTORY Procedure Laterality Date DELIVERY ONLY , low cervical x4 DELIVERY ONLY 10/14/2016 COLPOSCOPY CERVIX VAG LOOP ELTRD BX CERVIX 2020 EXCISION GANGLION WRIST DORSAL/VOLAR PRIMARY Right HYSTEROSCOPY ENDOMETRIAL ABLATION N/A 02/28/2023 KNEE SURGERY HX Right shaved patella and removed fat pad LAP HYSTERECTOMY FOR UTERUS 250G OR LESS 09/04/2023 LIG/TRNSXJ FLP TUBE ABDL/VAG APPR UNI/BI Bilateral 10/14/2016 VAGINAL CUFF REPAIR 09/22/2023 exam under anesthesia, pelvic irrigation and insertion of intraabdominal drain Current Outpatient Medications Medication Sig Dispense Refill lacosamide (VIMPAT) 150 mg tab Take 1 tablet by mouth two times a day for 180 days. 180 tablet 1 levETIRAcetam (KEPPRA) 1,000 mg tablet Take 1 tablet by mouth two times a day. 180 tablet 1 ondansetron orally disintegrating (ZOFRAN ODT) 4 mg disintegrating tablet dissolve one tablet on the tongue every 8 hours as needed for nausea clobetasol (TEMOVATE) 0.05 % cream Apply to affected area twice daily Saturday-Saturday. Take weekends off. Do not use on face, armpits, neck, or groin. 60 g 2 Clobetasol Propionate (TEMOVATE) 0.05 % external solution Apply to affected areas on scalp twice daily Saturday-Saturday, take weekends off. May repeat as needed. 50 mL 3 triamcinolone acetonide (KENALOG) 0.1 % cream Apply to affected areas twice daily for 2 weeks. 80 g 1 rizatriptan (MAXALT) 10 mg tablet Take 1 tablet (10 mg) by mouth as needed (at onset of headache. May repeat after 2 hours.). Do not exceed 30 mg per day. 9 tablet 3 No current facility-administered medications for this visit. ALLERGIES Allergen Reactions Bleach (Sodium Hypo* Rash Lamictal [Lamotrigi* Rash [place] Trees [Trees] Rash, Hives Topiramate Rash Tree And Shrub Poll* Unknown FAMILY HISTORY Problem Relation Age of Onset Hypertension Father Diabetes Father Hyperlipidemia Father Cataract Father other (Diverticulosis) Father other (FIBROMYALGIA) Sister Pancreatitis Sister Cancer Maternal Grandmother Breast Cancer Paternal Grandmother Heart Paternal Grandmother Stroke Paternal Grandfather Diabetes Maternal Aunt Anesthesia Problems No Family History Clotting Disorder No Family History (more content not included)... Normal [facility] CNOVon 02-16-2025 CNOV Office Visit (GSTNOR ) YAMIL NG ([id number]) 1985 F Date Time Provider Department 02/16/25 8:30 AM SHAVON LACEY GSTNOR During your visit today, we recorded the following information about you: Pulse Blood pressure Weight Height 66/minute 98/68 65 kg 1.6 m Shavon Lacey MD 02/16/2025 9:21 AM Signed CHIEF COMPLAINT: Patient presents with: Recheck: MD follow up per Domitila for Constipation, Nausea and Abdominal Pain HPI Yamil Ng is a 39 year old female here today for Recheck (MD follow up per Domitila for Constipation, Nausea and Abdominal Pain ) Yamil Ng is a 39-year-old female with a history of chronic constipation and heartburn, presenting for evaluation of worsening abdominal pain, nausea, and anorexia. Recording using [employer] software for draft documentation of the visit was discussed with the patient/authorized reimbursement representative; all questions welcomed and answered. Patient/authorized reimbursement representative agreed to proceed Abdominal Pain and Nausea: - Yamil Ng has chronic abdominal pain and nausea, worsening postprandially. - Describes pain as feeling like the stomach is being squeezed. - Experiences early satiety; eating even small amounts causes significant discomfort. - Recent upper endoscopy was normal, including biopsies of the esophagus, stomach, and duodenum. - Reports that symptoms have worsened since the endoscopy. - CT scan showed no acute findings; a small ovarian cyst was noted. - Denies relief from omeprazole or Carafate. - Has a gastric emptying test ordered by a blacksmith hammer operator but not yet completed. Anorexia: - Decreased appetite due to fear of pain and discomfort after eating. - Currently eating only once a day due to pain and nausea. - Reports no desire to eat and sometimes forces herself to eat despite discomfort. Chronic Constipation: - Yamil has a longstanding history of constipation, worsening over time. - Bowel movements every 4-5 days, sometimes requiring straining. - Stool consistency varies, often described as type 4-5 on the [place] Stool Scale. - Reports a sensation of incomplete evacuation. - Uses Dulcolax PRN; denies regular use of magnesium or Miralax. - Drinks water frequently. - Uses a stool to assist with bowel movements. Surgical History: - Four C-sections. - Laparoscopic-assisted vaginal hysterectomy in August 2023, with a subsequent revision due to bleeding per patient 10/2024 AXR: Constipation. Moderate stool burden. 01/13/2025 CT a/p with IV contrast: IMPRESSION: No acute findings in the abdomen and pelvis. Corpus luteum cyst in the left ovary. Trace free fluid in the pelvis likely physiologic. EGD and Colonoscopy: - Normal esophagus. - Normal stomach. Biopsied. - Normal examined duodenum. Biopsied. - The examined portion of the ileum was normal. - One 2 mm polyp in the cecum, removed with a cold biopsy forceps. Resected and retrieved. - The examination was otherwise normal on direct and retroflexion views. A. Duodenum, biopsy: - Small bowel mucosa with no diagnostic abnormality. B. Stomach, biopsy: - Gastric antral-type mucosa with chronic inactive gastritis, reactive gastropathy, and intestinal metaplasia, negative for dysplasia. 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 - See comment. C. Cecal polyp, biopsy: - Colonic mucosa with minimal hyperplastic changes. - See comment. B. Given the presence of chronic gastritis and intestinal metaplasia, immunohistochemical stains have been performed on block B1. An immunohistochemical stain for Helicobacter pylori organisms is negative. A gastrin stain confirms the presence of separate fragments of antral-type and oxyntic-type mucosa. A synaptophysin stain highlights areas of linear and micronodular ECL cell hyperplasia. While the presence of ECL cell hyperplasia raises the possibility of an early/evolving autoimmune gastritis, it can also be seen in the setting of chronic PPI therapy. Correlation with clinical, endoscopic, and other laboratory findings (e.g., serum gastrin and vitamin B12 levels, testing for anti-parietal cell and anti-intrinsic factor autoantibodies) may be helpful if indicated. C. There is no evidence of dysplasia, including on multiple additional deeper levels. IF AB, iron studies, folate, parietal cell antibodies, vitamin B12 normal Gastrin elevated on PPI Lipase normal 01/2025 GES: ordered not completed Current Outpatient Medications Medication Sig lacosamide (VIMPAT) 150 mg tab Take 1 tablet by mouth two times a day for 180 days. levETIRAcetam (KEPPRA) 1,000 mg tablet Take 1 tablet by mouth two times a day. ondansetron orally disintegrating (more content not included)... Normal [facility] XR ABD 2V SUPINE W UPR/DECUB /CTLon 02-16-2025 XR ABD 2V SUPINE W UPR/DECUB/CTL * * *Final Report* * * DATE OF EXAM: Feb 16 2025 10:49AM WOX [id number] - XR ABD 2V SUPINE W UPR/DECUB/CTL / PROCEDURE REASON: multiple diagnoses * * * * Physician Interpretation * * * * EXAMINATION: ABDOMINAL RADIOGRAPH Clinical History: Chronic constipation Epigastric pain Bloating M: XC1_4 Comparison: 10/26/2024 TECHNIQUE: Supine and upright view(s) of the abdomen RESULT: Lines, tubes, and devices: None are seen. Bowel Gas Pattern: Above average stool burden. Calcifications: No definite renal stones. Other: No additional findings IMPRESSION: No bowel obstruction or free air is seen. Moderate to large amount of stool in the colon. Binitrotoluene Operator: GILDARDO Transcribe Date/Time: Feb 18 2025 10:53P Dictated by : MAURILIO HERNÁNDEZ MD This examination was interpreted and the report reviewed and electronically signed by: MAURILIO HERNÁNDEZ MD on Feb 18 2025 10:54PM EST [id number] Normal [facility] CNOVon 02-10-2025 CNOV Office Visit (RHEUMN ) HERNANDEZ,YAMIL Ludy ([id number]) 1985 F Date Time Provider Department 02/10/25 8:00 AM WILLIAMS BARTON RHEUMN During your visit today, we recorded the following information about you: Temperature Pulse Blood pressure Weight 98 degrees 68/minute 100/65 67 kg Height 1.6 m Williams Barton MD 02/10/2025 9:00 AM Signed Rheumatology CONSULTATION Date of Service: 02/10/2025 Patient: Yamil Ng Medical Record: [id number] Primary Care Physician: Adrianne Ignacio MD Last Rheumatology visit: None at [facility] Referring Provider: Domitila Galicia [id number] [facility] [id number] Yamil Ng is here today at request of Dr. Domitila Galicia specifically for consultation of my opinion in regards to the chief complaint listed below. Correspondence will be shared today via the [employer] electronic health record or through regular mail, where applicable. HPI Yamil Ng is a 39-year-old female with a history of epilepsy, presenting for evaluation of joint pain, stiffness, and gastrointestinal issues. Yamil reports worsening joint pain and stiffness over the past several months, primarily affecting her hips, knees, and shoulders. The pain is described as shooting and is most severe in the mornings, lasting approximately 1.5 hours. She notes that her shoulders are super stiff upon waking, and her hips and knees are the most painful areas. The pain worsens with activity, such as lifting and moving, and occasionally wakes her at night. She also experiences random episodes of her hands releasing objects, which she attributes to overuse, but denies significant pain in her elbows or wrists. She denies any noticeable color changes in her fingers when exposed to cold temperatures. She has a history of knee surgery on one knee and reports swelling in both knees after activity. Her ankles swell after long days, typically 11-12 hours of standing or walking. She denies any warmth in her joints and notes that abpx-aev-mjechkc medications like Tylenol or ibuprofen do not alleviate her pain. She has not taken steroids for her symptoms. Yamil also reports gastrointestinal issues, including early satiety and nausea, which have worsened over the past 6 months. She experiences a sensation of fullness after eating small amounts, sometimes as little as half a child's portion, and occasionally vomits after eating, particularly with foods like grilled chicken. She has a long-standing history of acid reflux, which worsened after her last 8 years ago. She has tried various medications, including Pepcid and Prilosec, without relief. She denies significant weight loss but notes fluctuations between 140-158 lbs. She reports chronic constipation, with bowel movements occurring every 2-4 days, and occasional difficulty swallowing, though not consistently with any specific type of food. Approximately 6-8 months ago, she developed a rash that began on the inner thigh and spread to her abdomen and upper arms. The rash lasted about 5 weeks and was treated with topical creams, with the second cream providing relief. The rash left areas of hyperpigmentation, particularly under her breast. She denies current use of antihistamines and has not noticed any new rashes. She does report facial flushing, particularly when overheated. She has a history of anemia, which improved after a hysterectomy in July 2022. She denies current hair loss or changes. She has had multiple episodes of strep throat over the past year but denies recent COVID-19 infections. 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 She denies any ulcers in her mouth or nose and has not noticed any swelling of lymph nodes outside of strep infections. She denies chest pain with deep breaths or at rest. She has a family history of fibromyalgia in her sister but denies a personal history of fibromyalgia. She has not been diagnosed with scoliosis and has not had recent back X-rays. Pain Evaluation 01/13/2025 01/13/2025 01/15/2025 02/09/2025 02/10/2025 Pain Evaluation Pain Score 0 0 2 4 2 Location Abdomen Abdomen-Mid Upper Description Burning Duration (Timeframe) Months Frequency Continuous Continuous Intervention Education Rheum/Ortho Arthrocentesis Injections (last 5) 11/09/2020 15:30 01/05/2025 16:22 Injection History Medication 5 mL NaCl (PF) 0.9% 12 mg betamethasone acetate-betamethasone sodium phosphate 6 mg/mL Location knee knee Knee Site R knee joint R knee joint Patient-Entered Data PROMIS Assessments 08/26/2024 12/30/2024 02/09/2025 PROMIS Global Health - (T-Scores - the mean of general population = 50. Five points is a clinically meaningful difference.) Physical T-Score 34.9 34.9 37.4 37.4 34.9 Mental T-Score 43.5 43.5 41.1 41.1 41.1 08/26/2024 12/30/2024 02/09/2025 PROM (more content not included)... Normal [facility] XR CERVICAL 2V FLEX/EXTon XR CERVICAL 2V FLEX/EXT * * *Final Repor t* * * DATE OF EXAM: Feb 10 2025 10:34AM WOX [id number] - XR CERVICAL 2V FLEX/EXT / PROCEDURE REASON: multiple diagnoses * * * * Physician Interpretation * * * * EXAMINATION: XR LUMBAR 2V AP/LAT, XR CERVICAL 2V FLEX/EXT, XR THORACIC 2V AP/LAT CLINICAL HISTORY: Pain. Lordosis Technique: XR LUMBAR 2V AP/LAT, XR CERVICAL 2V FLEX/EXT, XR THORACIC 2V AP/LAT Comparison: None RESULT: Counting reference: Craniocervical junction. Anatomic Variants: None. Normal cervical lordosis. Minimal retrolisthesis C3-C4 and C4-C5 measuring 2 mm with extension which completely reduces with flexion. Normal atlantoaxial interval. Vertebral body heights and disc heights are maintained.No prevertebral soft tissue swelling. Normal thoracic kyphosis. Vertebral body heights are maintained. Mild disc space narrowing the upper thoracic spinal small endplate osteophytes. Pedicles are symmetric. Visualized lungs are clear. Normal lumbar lordosis. Vertebral body heights are maintained. Mild disc space narrowing L5-S1. Normal sacroiliac joints. Nonobstructive bowel gas pattern. IMPRESSION: Minimal retrolisthesis C3-C4 and C4-C5 seen only with extension. No significant degenerative changes in the cervical, thoracic, or lumbar spine. Binitrotoluene Operator: GILDARDO Transcribe Date/Time: Feb 15 2025 1:49P Dictated by : TERESITA LARA DO This examination was interpreted and the report reviewed and electronically signed by: TERESITA LARA DO on Feb 15 2025 1:51PM EST [id number] Normal [facility] XR LUMBAR 2V AP/LATon 2024 XR LUMBAR 2V AP/LAT * * *Final Report* * * DATE OF EXAM: Feb 10 2025 10:34AM WOX [id number] - XR LUMBAR 2V AP/LAT / PROCEDURE REASON: multiple diagnoses * * * * Physician Interpretation * * * * EXAMINATION: XR LUMBAR 2V AP/LAT, XR CERVICAL 2V FLEX/EXT, XR THORACIC 2V AP/LAT CLINICAL HISTORY: Pain. Lordosis Technique: XR LUMBAR 2V AP/LAT, XR CERVICAL 2V FLEX/EXT, XR THORACIC 2V AP/LAT Comparison: None RESULT: Counting reference: Craniocervical junction. Anatomic Variants: None. Normal cervical lordosis. Minimal retrolisthesis C3-C4 and C4-C5 measuring 2 mm with extension which completely reduces with flexion. Normal atlantoaxial interval. Vertebral body heights and disc heights are maintained.No prevertebral soft tissue swelling. Normal thoracic kyphosis. Vertebral body heights are maintained. Mild disc space narrowing the upper thoracic spinal small endplate osteophytes. Pedicles are symmetric. Visualized lungs are clear. Normal lumbar lordosis. Vertebral body heights are maintained. Mild disc space narrowing L5-S1. Normal sacroiliac joints. Nonobstructive bowel gas pattern. IMPRESSION: Minimal retrolisthesis C3-C4 and C4-C5 seen only with extension. No significant degenerative changes in the cervical, thoracic, or lumbar spine. Binitrotoluene Operator: GILDARDO Transcribe Date/Time: Feb 15 2025 1:49P Dictated by : TERESITA LARA DO This examination was interpreted and the report reviewed and electronically signed by: TERESITA LARA DO on Feb 15 2025 1:51PM EST [id number] Normal [facility] XR THORACIC 2V AP/LATon 08-2 XR THORACIC 2V AP/LAT * * *Final Report* * * DATE OF EXAM: Feb 10 2025 10:34AM WOX [id number] - XR THORACIC 2V AP/LAT / PROCEDURE REASON: multiple diagnoses * * * * Physician Interpretation * * * * EXAMINATION: XR LUMBAR 2V AP/LAT, XR CERVICAL 2V FLEX/EXT, XR THORACIC 2V AP/LAT CLINICAL HISTORY: Pain. Lordosis Technique: XR LUMBAR 2V AP/LAT, XR CERVICAL 2V FLEX/EXT, XR THORACIC 2V AP/LAT Comparison: None RESULT: Counting reference: Craniocervical junction. Anatomic Variants: None. Normal cervical lordosis. Minimal retrolisthesis C3-C4 and C4-C5 measuring 2 mm with extension which completely reduces with flexion. Normal atlantoaxial interval. Vertebral body heights and disc heights are maintained.No prevertebral soft tissue swelling. Normal thoracic kyphosis. Vertebral body heights are maintained. Mild disc space narrowing the upper thoracic spinal small endplate osteophytes. Pedicles are symmetric. Visualized lungs are clear. Normal lumbar lordosis. Vertebral body heights are maintained. Mild disc space narrowing L5-S1. Normal sacroiliac joints. Nonobstructive bowel gas pattern. IMPRESSION: Minimal retrolisthesis C3-C4 and C4-C5 seen only with extension. No significant degenerative changes in the cervical, thoracic, or lumbar spine. Binitrotoluene Operator: GILDARDO Transcribe Date/Time: Feb 15 2025 1:49P Dictated by : TERESITA LARA DO This examination was interpreted and the report reviewed and electronically signed by: TERESITA LARA DO on Feb 15 2025 1:51PM EST [id number] Normal [facility] BONNIE BY IFA WITH REFLEXon Nuclear Ab pattern (S) [Interp] Nuclear fine speckled Normal [facility] Comment on above: Order Comment: Speci men Type: BLOOD SPECIMEN Ordering Facility: [facility] Address: [address] [place] [address] Performed By: #### 2 4323-8, 3040-3 #### [facility] CLIA [id number] [address] [place] [address] [place] Nuclear Ab Ql (S) Positive Abnormal Negative [facility] Comment on above: Order Comment: Speci men Type: BLOOD SPECIMEN Ordering Facility: [facility] Address: [address] [place] [address] Result Comment: Anti -nuclear antibody test is used as an aid in diagnosis of systemic autoimmune diseases. Where positive and clinically warranted, follow-up using disease-specific testing is recommended. Low positive titers are not uncommon with advanced age, certain chronic infections, and malignancies among others. Test methodology: Indirect fluorescence immunoassay (IFA) using HEp-2 cells. 1:160 Performed By: #### 2 4323-8, 3040-3 #### [facility] CLIA [id number] [address] [place] [address] [place] Centromere Ab IF Ql (S)on Centromere Ab Qn (S) <0.2 Normal <1.0 [facility] Comment on above: Order Comment: Speci men Type: BLOOD SPECIMEN Ordering Facility: [facility] Address: [address] [place] [address] Result Comment: Anti -centromere antibody is used as in aid in diagnosis of systemic sclerosis. Clinical correlation is required. Test Methodology: Multiplex flow immunoassay. Performed By: #### 2 4323-8, 0-3 #### [facility] CLIA [id number] [address] [place] [address] [place] CENTROMERE AB QUAL Negative Normal Negative [facility] Comment on above: Order Comment: Speci men Type: BLOOD SPECIMEN Ordering Facility: [facility] Address: [address] [place] [address] Performed By: #### 2 4323-8, 3040-3 #### [facility] CLIA [id number] [address] [place] [address] [place] Chromatin Ab Qnon 01-19-2025 CHROMATIN AB QUAL Negative Normal Negative [facility] Comment on above: Order Comment: Speci men Type: BLOOD SPECIMEN Ordering Facility: [facility] Address: [address] [place] [address] Performed By: #### 2 4323-8, 0-3 #### [facility] CLIA [id number] [address] [place] [address] [place] Chromatin Ab SerPl-aCncon Chromatin Ab Qn <0.2 Normal <1.0 [facility] Comment on above: Order Comment: Speci men Type: BLOOD SPECIMEN Ordering Facility: [facility] Address: [address] [place] [address] Result Comment: Test Methodology: Multiplex flow immunoassay. Performed By: #### 2 4323-8, 0-3 #### [facility] CLIA [id number] [address] [place] [address] [place] DNA double strand Ab IA Qn ( S)on 01-19-2025 DNA ANTIBODY 20 IU/mL Normal <=200 [facility] Comment on above: Order Comment: Speci men Type: BLOOD SPECIMEN Ordering Facility: [facility] Address: [address] [place] [address] Result Comment: Nega tive: <200 IU/mL Equivocal: 201-300 IU/mL Moderate Positive: 301-800 IU/mL Strong Positive: >801 IU/mL Performed By: #### 2 4323-8, 3040-3 #### [facility] CLIA [id number] [address] [place] [address] [place] DNA ANTIBODY QUALITATIVE INTERPRETATION Negative Normal Negative [facility] Comment on above: Order Comment: Speci men Type: BLOOD SPECIMEN Ordering Facility: [facility] Address: [address] [place] [address] Performed By: #### 2 4323-8, 3040-3 #### [facility] CLIA [id number] [address] [place] [address] [place] SHAWN Jo1 Ab Ser-aCncon 2024 Rabia-1 extractable nuclear Ab Qn (S) <0.2 Normal <1.0 [facility] Comment on above: Order Comment: Speci men Type: BLOOD SPECIMEN Ordering Facility: [facility] Address: [address] [place] [address] Performed By: #### 2 4323-8, 0-3 #### [facility] CLIA [id number] [address] [place] [address] [place] SHAWN STOCK PARTS FABRICATOR Ab Ser-aCncon 2024 Ribonucleoprotein extractable nuclear Ab Qn (S) <0.2 Normal <1.0 [facility] Comment on above: Order Comment: Speci men Type: BLOOD SPECIMEN Ordering Facility: [facility] Address: [address] [place] [address] Performed By: #### 2 4323-8, 3040-3 #### [facility] CLIA [id number] [address] [place] [address] [place] SHAW[place] SM IgG Ser-aCncon 2024 Carmona extractable nuclear IgG Qn (S) <0.2 Normal <1.0 [facility] Comment on above: Order Comment: Speci men Type: BLOOD SPECIMEN Ordering Facility: [facility] Address: [address] [place] [address] Performed By: #### 2 4323-8, 3040-3 #### [facility] CLIA [id number] [address] [place] [address] [place] SHAW[place] SS-A Ab Ser-aCncon 07-29 -2025 Sjogrens syndrome-A extractable nuclear Ab Qn (S) <0.2 Normal <1.0 [facility] Comment on above: Order Comment: Speci men Type: BLOOD SPECIMEN Ordering Facility: [facility] Address: [address] [place] [address] Result Comment: Test Methodology: Multiplex flow immunoassay. Performed By: #### 2 4323-8, 3040-3 #### [facility] CLIA [id number] [address] [place] [address] [place] SH[place] SS-B Ab Ser-aCncon 01-19 Sjogrens syndrome-B extractable nuclear Ab Qn (S) <0.2 Normal <1.0 [facility] Comment on above: Order Comment: Mistyi men Type: BLOOD SPECIMEN Ordering Facility: [facility] Address: [address] [place] [address] Result Comment: Anti -SSB (anti-La) antibody is used as an aid in diagnosis of a variety of systemic autoimmune diseases, especially for Sjogren's syndrome and systemic lupus erythematosus. Clinical correlation is required. Test Methodology: Multiplex flow immunoassay. Performed By: #### 2 4323-8, 3040-3 #### [facility] CLIA [id number] [address] [place] [address] [place] Ferritin SerPl-mCncon 2024 Ferritin [Mass/Vol] 74.9 ng/mL Normal 14.7-205.1 [facility] Comment on above: Order Comment: Speci men Type: BLOOD SPECIMEN Ordering Facility: [facility] Address: [address] [place] [address] Performed By: #### 2 4323-8, 3040-3 #### [facility] CLIA [id number] [address] [place] [address] [place] Folate SerPl-mCncon 01-20-20 25 Folate [Mass/Vol] ng/mL Normal >4.7 [facility] Comment on above: Order Comment: Speci men Type: BLOOD SPECIMEN Ordering Facility: [facility] Address: [address] [place] [address] Result Comment: A re sult of > 20 ng/mL is not necessarily indicative of a pathologic or treatable condition: it reflects a limitation of the test methodology. Assay reference range: 4.8 to 24.2 ng/mL. Suitable for detection of folate deficiency. Reference: Folate III (Folate III) [package insert V 1.0 [place]]. [employer], [place], [place]: April 2015. Performed By: #### 2 4323-8, 3040-3 #### [facility] CLIA [id number] [address] [place] [address] [place] Gastrin SerPl-mCncon 025 Gastrin [Mass/Vol] 309.0 pg/mL High <115.0 [facility] Comment on above: Order Comment: Speci men Type: BLOOD SPECIMEN Ordering Facility: [facility] Address: [address] [place] [address] Result Comment: The Gastrin test was performed using the Siemens Immulite chemiluminescent immunometric method. Results obtained with different assay methods or kits cannot be used interchangeably. Performed By: #### 2 4323-8, 3040-3 #### [facility] CLIA [id number] [address] [place] [address] [place] INTRINSIC FACTOR BLOCKING AB on 01-19-2025 INTRINSIC FACTOR BLOCKING ANTIBODY Negative Normal Negative [facility] Comment on above: Order Comment: Speci men Type: BLOOD SPECIMEN Ordering Facility: [facility] Address: [address] [place] [address] Result Comment: Perf ormed By: [employer] [address] [place] [address] Engine Inspector: Ismael Gallardo MD, PhD CLIA Number: [id number] Performed By: #### I NTFCT #### [facility] CLIA [id number] [address] [place] [address] Iron and Iron binding capaci ty panelon 01-19-2025 Iron [Mass/Vol] 52 ug/dL Normal 41-186 [facility] Comment on above: Order Comment: Speci men Type: BLOOD SPECIMEN Ordering Facility: [facility] Address: [address] [place] [address] Performed By: #### 2 4323-8, 3039-3 #### [facility] CLIA [id number] [address] [place] [address] [place] Iron binding capacity [Mass/Vol] 299 ug/dL Normal 232-386 [facility] Comment on above: Order Comment: Speci men Type: BLOOD SPECIMEN Ordering Facility: [facility] Address: [address] [place] [address] Performed By: #### 2 4323-8, 3039-3 #### [facility] CLIA [id number] [address] [place] [address] [place] Iron/TIBC [Molar ratio] 17.4 % Normal 15.0-57.0 [facility] Comment on above: Order Comment: Speci men Type: BLOOD SPECIMEN Ordering Facility: [facility] Address: [address] [place] [address] Performed By: #### 2 4323-8, 3 #### [facility] CLIA [id number] [address] [place] [address] [place] Rabia-1 extractable nuclear Ab Qn (S)on 01-19-2025 RABIA 1 ANTIBODY QUAL Negative Normal Negative [facility] Comment on above: Order Comment: Speci men Type: BLOOD SPECIMEN Ordering Facility: [facility] Address: [address] [place] [address] Result Comment: Anti -RABIA-1 antibody is used as an aid in diagnosis of polymyositis and dermatomyositis especially with pulmonary involvement. A negative result cannot rule out polymyositis or dermatomyositis. Clinical correlation is required. Test Methodology: Multiplex flow immunoassay. Performed By: #### 2 4323-8, 0-3 #### [facility] CLIA [id number] [address] [place] [address] [place] [facility] WORK[facility] Ab Ser Qlon 01-19-2025 Parietal cell Ab Ql (S) Negative Normal Negative [facility] Comment on above: Order Comment: Speci men Type: BLOOD SPECIMEN Ordering Facility: [facility] Address: [address] [place] [address] Result Comment: Anti -parietal cell antibody test is used as an aid in diagnosis of autoimmune gastritis. Clinical correlation is required. Performed By: #### 2 4323-8, 3040-3 #### [facility] CLIA [id number] [address] [place] [address] [place] Parietal cell Ab Ql (S)on GASTRIC PARIETAL CELL IGG QUANTITATIVE 4.0 Units Normal <=20.0 [facility] Comment on above: Order Comment: Bradley whitehead Type: BLOOD SPECIMEN Ordering Facility: [facility] Address: [address] [place] [address] Performed By: #### 2 4323-8, 3039-3 #### [facility] CLIA [id number] [address] [place] [address] [place] Ribonucleoprotein extractabl e nuclear Ab Qn (S)on 01-19-2025 ANTI-STOCK PARTS FABRICATOR QUAL Negative Normal Negative [facility] Comment on above: Order Comment: Mistyi charley Type: BLOOD SPECIMEN Ordering Facility: [facility] Address: [address] [place] [address] Performed By: #### 2 4323-8, 3039-3 #### [facility] CLIA [id number] [address] [place] [address] [place] RIBOSOMAL STOCK PARTS FABRICATOR QUAL Negative Normal Negative [facility] Comment on above: Order Comment: Bradley whitehead Type: BLOOD SPECIMEN Ordering Facility: [facility] Address: [address] [place] [address] Result Comment: Anti -Ribosomal RNA (Ribosomal P) antibody is used as an aid in diagnosis of systemic autoimmune diseases especially systemic lupus erythematosus and mixed connective tissue disease. Cross-reactivity with Anti-carmona antibody is not uncommon. Clinical correlation is required. Test Methodology: Multiplex flow immunoassay. Performed By: #### 2 4323-8, 0-3 #### [facility] CLIA [id number] [address] [place] [address] [place] SCL-70 extractable nuclear I gG IA Qn (S)on 01-19-2025 SCLERODERMA AB QUAL Negative Normal Negative [facility] Comment on above: Order Comment: Speci men Type: BLOOD SPECIMEN Ordering Facility: [facility] Address: [address] [place] [address] Performed By: #### 2 4323-8, 3039-3 #### [facility] CLIA [id number] [address] [place] [address] [place] SCLERODERMA IGG AB <0.2 Normal <1.0 [facility] Comment on above: Order Comment: Speci men Type: BLOOD SPECIMEN Ordering Facility: [facility] Address: [address] [place] [address] Result Comment: Scl- 70/Scleroderma antibody test is used as an aid in diagnosis of systemic sclerosis especially the diffuse cutaneous form. A negative result cannot rule out systemic sclerosis. The final interpretation should consider clinical picture and other test results such as anti-centromere antibody. Test Methodology: Multiplex flow immunoassay. Performed By: #### 2 4323-8, 3039-3 #### [facility] CLIA [id number] [address] [place] [address] [place] Sjogrens syndrome-A extracta ble nuclear Ab Qn (S)on 01-19-2025 SSA ANTIBODY QUAL Negative Normal Negative [facility] Comment on above: Order Comment: Speci men Type: BLOOD SPECIMEN Ordering Facility: [facility] Address: [address] [place] [address] Performed By: #### 2 4323-8, 3039-3 #### [facility] CLIA [id number] [address] [place] [address] [place] Sjogrens syndrome-B extracta ble nuclear Ab Qn (S)on 01-19-2025 SSB ANTIBODY QUAL Negative Normal Negative [facility] Comment on above: Order Comment: Speci men Type: BLOOD SPECIMEN Ordering Facility: [facility] Address: [address] [place] [address] Performed By: #### 2 4323-8, 3040-3 #### [facility] CLIA [id number] [address] [place] [address] [place] Carmona extractable nuclear Ig G Qn (S)on 01-19-2025 SM ANTIBODY QUAL Negative Normal Negative [facility] Comment on above: Order Comment: Speci men Type: BLOOD SPECIMEN Ordering Facility: [facility] Address: [address] [place] [address] Result Comment: Anti -Sm (Carmona) antibody is used as an aid in diagnosis of systemic lupus erythematosus and its presence is associated with renal disease. A negative result cannot rule out systemic lupus erythematosus. Clinical correlation is required. Test Methodology: Multiplex flow immunoassay. Performed By: #### 2 4323-8, 3040-3 #### [facility] CLIA [id number] [address] [place] [address] [place] Vit B12 SerPl-ncon 025 Cobalamin (Vitamin B12) [Mass/Vol] 571 pg/mL Normal 232-1245 [facility] Comment on above: Order Comment: Speci men Type: BLOOD SPECIMEN Ordering Facility: [facility] Address: [address] [place] [address] Performed By: #### 2 4323-8, 3040-3 #### [facility] CLIA [id number] [address] [place] [address] [place] ALLIED HEALTHon 01-15-2025 ALLIED HEALTH HNO ID: [id number] Author: ELLA HANSON CT Service: Radiology Author Type: Technologist Type: Allied Health Filed: 01/15/2025 16:14 Note Text: Radiology Service Progress Note DATE OF SERVICE: January 15, 2025 TIME: 4:14 PM PATIENT IDENTITY VERIFICATION COMPLETED USING TWO (2) STANDARD IDENTIFIERS: Name and Date of confirmed by patient verbally. FALL SCREENING: Has the patient had 2 falls in the last year or 1 fall with injury or currently using an Ambulatory Assistive Device (Walker, Cane, Wheelchair, Crutches, etc.)? No PATIENT GENDER DATA: Assigned female at . status: : No status: NO. PATIENT RELEVANT IMPLANT DATA REVIEWED: Not Applicable PATIENT PRESENTS WITH AN IMPLANTABLE OR ATTACHED INFORMATION TECHNOLOGY INSTRUCTOR: No ALLERGIES: Reviewed and unchanged CONTRAST ALLERGY: NO. EXAM: CT -CONTRAST INDUCED NEPHROPATHY RISK FACTORS: Not applicable CREATININE: Creatinine Date Value Ref Range Status 01/15/2025 0.94 0.58 - 0.96 mg/dL Final 01/09/2025 0.87 0.58 - 0.96 mg/dL Final 10/26/2024 0.92 0.58 - 0.96 mg/dL Final Estimated Glomerular Filtration Rate Date Value Ref Range Status 01/15/2025 78 >=60 mL/min/1.73m? Final Comment: Estimated Glomerular Filtration Rate (eGFR) is calculated using the 2020 CKD-EPI creatinine equation. This equation utilizes serum creatinine, sex, and age as parameters. The creatinine assay has traceable calibration to isotope dilution-mass spectrometry. Refer to KDIGO guidelines for clinical interpretation. In patients with unstable renal function, e.g. those with acute kidney injury, the eGFR may not accurately reflect actual GFR. eGFR- Date Value Ref Range Status 12/17/2018 >60 Final P.O.C.T. RESULTS: N/A January 15, 2025 TREATMENT: N/A PERIPHERAL IV DATA: Inpatient - refer to [facility] documentation RADIOLOGY DEPARTMENT: CT; Exam(s) Completed: Abdomen/Pelvis SIGNATURE: MADIHA Cottrell PATIENT NAME: Yamil Ng DATE: January 15, 2025 TIME: 4:14 PM Normal [facility] CBC W Auto Differential pane l (Bld)on 01-15-2025 Basophils (Bld) [#/Vol] 10*3/uL Normal <0.11 A [facility] Comment on above: Order Comment: Speci men Type: BLOOD SPECIMEN Ordering Facility: [facility] Address: [address] [place] [address] Performed By: #### 5 7021-8 #### [facility] CLIA [id number] [address] [place] [address] [place] Basophils/100 WBC (Bld) 0.2 % Normal A [facility] Comment on above: Order Comment: Speci men Type: BLOOD SPECIMEN Ordering Facility: [facility] Address: [address] [place] [address] Performed By: #### 5 7021-8 #### [facility] CLIA [id number] [address] [place] [address] [facility] [place] Differential cell count method Nom (Bld) Auto Normal [facility] Comment on above: Order Comment: Speci men Type: BLOOD SPECIMEN Ordering Facility: [facility] Address: [address] [place] [address] Performed By: #### 5 7021-8 #### [facility] CLIA [id number] [address] [place] [address] [place] Eosinophils (Bld) [#/Vol] 0.08 10*3/uL Normal <0.46 [facility] Comment on above: Order Comment: Speci men Type: BLOOD SPECIMEN Ordering Facility: [facility] Address: [address] [place] [address] Performed By: #### 5 7021-8 #### [facility] CLIA [id number] [address] [place] [address] [facility] [place] Eosinophils/100 WBC (Bld) 1.0 % Normal [facility] Comment on above: Order Comment: Speci men Type: BLOOD SPECIMEN Ordering Facility: [facility] Address: [address] [place] [address] Performed By: #### 5 7021-8 #### [facility] CLIA [id number] [address] [place] [id number] [facility] [place] Erythrocyte distribution width (RBC) [Ratio] 13.0 % Normal 11.5-15.0 [facility] Comment on above: Order Comment: Speci men Type: BLOOD SPECIMEN Ordering Facility: [facility] Address: [address] [place] [address] Performed By: #### 5 7021-8 #### [facility] CLIA [id number] [address] [place] [address] [place] Hematocrit (Bld) [Volume fraction] 40.2 % Normal 36.0-46.0 [facility] Comment on above: Order Comment: Speci men Type: BLOOD SPECIMEN Ordering Facility: [facility] Address: [address] [place] [address] Performed By: #### 5 7021-8 #### [facility] CLIA [id number] [address] [place] [address] [place] Hemoglobin (Bld) [Mass/Vol] 13.5 g/dL Normal 11.5-15.5 [facility] Comment on above: Order Comment: Speci men Type: BLOOD SPECIMEN Ordering Facility: [facility] Address: [address] [place] [address] Performed By: #### 5 7021-8 #### [facility] CLIA [id number] [address] [place] [address] [place] Immature granulocytes (Bld) [#/Vol] 10*3/uL Normal <0.10 [facility] Comment on above: Order Comment: Speci men Type: BLOOD SPECIMEN Ordering Facility: [facility] Address: [address] [place] [address] Performed By: #### 5 7021-8 #### [facility] CLIA [id number] [address] [place] [address] [place] Immature granulocytes/100 WBC (Bld) 0.1 % Normal [facility] Comment on above: Order Comment: Speci men Type: BLOOD SPECIMEN Ordering Facility: [facility] Address: [address] [place] [address] Performed By: #### 5 7021-8 #### [facility] CLIA [id number] [address] [place] [address] [place] Lymphocytes (Bld) [#/Vol] 2.39 10*3/uL Normal 1.00-4.00 [facility] Comment on above: Order Comment: Speci men Type: BLOOD SPECIMEN Ordering Facility: [facility] Address: [address] [place] [address] Performed By: #### 5 7021-8 #### [facility] CLIA [id number] [address] [place] [address] [facility] Lymphocytes/100 WBC (Bld) 29.3 % Normal [facility] Comment on above: Order Comment: Speci men Type: BLOOD SPECIMEN Ordering Facility: [facility] Address: [address] [place] [address] Performed By: #### 5 7021-8 #### [facility] CLIA [id number] [address] [place], [place] [address] [place] [address] [place] MCH (RBC) [Entitic mass] 29.0 pg Normal 26.0-34.0 [facility] Comment on above: Order Comment: Speci men Type: BLOOD SPECIMEN Ordering Facility: [facility] Address: [address] [place] [address] Performed By: #### 5 7021-8 #### [facility] CLIA [id number] [address] [place], [place] [address] [place] [address] [place] MCHC (RBC) [Mass/Vol] 33.6 g/dL Normal 30.5-36.0 [facility] Comment on above: Order Comment: Speci men Type: BLOOD SPECIMEN Ordering Facility: [facility] Address: [address] [place] [address] Performed By: #### 5 7021-8 #### [facility] CLIA [id number] [address] [place] [address] [place] [address] MCV (RBC) [Entitic vol] 86.5 fL Normal 80.0-100.0 [facility] Comment on above: Order Comment: Speci men Type: BLOOD SPECIMEN Ordering Facility: [facility] Address: [address] [place] [address] Performed By: #### 5 7021-8 #### [facility] CLIA [id number] [address] [place] [address] [place] Monocytes (Bld) [#/Vol] 0.62 10*3/uL Normal <0.87 [facility] Comment on above: Order Comment: Speci men Type: BLOOD SPECIMEN Ordering Facility: [facility] Address: [address] [place] [address] Performed By: #### 5 7021-8 #### [facility] CLIA [id number] [address] [place] [address] [place] Monocytes/100 WBC (Bld) 7.6 % Normal A [facility] Comment on above: Order Comment: Speci men Type: BLOOD SPECIMEN Ordering Facility: [facility] Address: [address] [place] [address] Performed By: #### 5 7021-8 #### [facility] CLIA [id number] [address] [place] [address] [place] Neutrophils (Bld) [#/Vol] 5.04 10*3/uL Normal 1.45-7.50 [facility] Comment on above: Order Comment: Speci men Type: BLOOD SPECIMEN Ordering Facility: [facility] Address: [address] [place] [address] Performed By: #### 5 7021-8 #### [facility] CLIA [id number] [address] [place] [address] [place] Neutrophils/100 WBC (Bld) 61.8 % Normal [facility] Comment on above: Order Comment: Speci men Type: BLOOD SPECIMEN Ordering Facility: [facility] Address: [address] [place] [address] Performed By: #### 5 7021-8 #### [facility] CLIA [id number] [address] [place] [address] [place] Nucleated RBC (Bld) [#/Vol] Normal [facility] Comment on above: Order Comment: Speci men Type: BLOOD SPECIMEN Ordering Facility: [facility] Address: [address] [place] [address] Performed By: #### 5 7021-8 #### [facility] CLIA [id number] [address] [place] [address] [place] Nucleated RBC/100 WBC (Bld) [Ratio] Normal [facility] Comment on above: Order Comment: Speci men Type: BLOOD SPECIMEN Ordering Facility: [facility] Address: [address] [place] [address] Performed By: #### 5 7021-8 #### [facility] CLIA [id number] [address] [place] [address] [place] Platelet mean volume (Bld) [Entitic vol] 8.7 fL Low 9.0-12.7 [facility] Comment on above: Order Comment: Speci men Type: BLOOD SPECIMEN Ordering Facility: [facility] Address: [address] [place] [address] Performed By: #### 5 7021-8 #### [facility] CLIA [id number] [address] [place] [address] [place] Platelets (Bld) [#/Vol] 281 10*3/uL Normal 150-400 [facility] Comment on above: Order Comment: Speci men Type: BLOOD SPECIMEN Ordering Facility: [facility] Address: [address] [place] [address] Performed By: #### 5 7021-8 #### [facility] CLIA [id number] [address] [place] [address] [place] RBC (Bld) [#/Vol] 4.65 10*6/uL Normal 3.90-5.20 [facility] Comment on above: Order Comment: Speci men Type: BLOOD SPECIMEN Ordering Facility: [facility] Address: [address] [place] [address] Performed By: #### 5 7021-8 #### [facility] CLIA [id number] [address] [place] [address] [place] WBC (Bld) [#/Vol] 8.16 10*3/uL Normal 3.70-11.00 [facility] Comment on above: Order Comment: Bradley whitehead Type: BLOOD SPECIMEN Ordering Facility: [facility] Address: [address] [place] [address] Performed By: #### 5 7021-8 #### [facility] CLIA [id number] [address] [place] [address] [place] CNPMarlena 01-15-2025 CNPN Telephone (ASCNOR) YAMIL NG ([id number]) 1985 F Date Time Provider Department 01/15/25 COLEEN MARIA During your visit today, we recorded the following information about you: Lotus Abdi, RN 01/15/2025 3:04 PM Kartik Rodriguez called in to the Endoscopy nurse line. Shared that she had EGD and Colonoscopy this past Saturday. She states she has not been able to eat anything since procedure without throwing up. She is having extreme nausea. She also states bloated and fullness after just small bites of anything. She did state she previously had nausea and part of the reason for why this procedure had been done, but that this nausea is worse than before. She has only tried light things like chicken soup and mashed potatoes. Instructed to run by her GI [facility], but that from post endoscopy procedure, we would recommend visit to the ER for evaluation. She was transferred to office side to get message to the [facility], but was instructed that if she was not able to get information to the [facility], she should report to the ER. She verbalizes understanding. Allergies As of Date: 01/15/2025 Noted Allergy Reaction BLEACH (SODIUM HYPOCHLORITE) 03/22/2016 2 - Rash LAMICTAL (LAMOTRIGINE) 06/16/2018 2 - Rash PINE TREES (TREES) 03/22/2016 2 - Rash 4 - Hives TOPIRAMATE 06/07/2023 2 - Rash TREE AND SHRUB POLLEN 09/22/2023 16 - Unknown Date Reviewed: 01/15/2025 Reviewed by: Gala Castorena RN - Fully Assessed Prescriptions as of 01/15/2025 - lacosamide (VIMPAT) 150 mg tab Take 1 tablet by mouth two times a day for 180 days. - levETIRAcetam (KEPPRA) 1,000 mg tablet Take 1 tablet by mouth two times a day. - ondansetron orally disintegrating (ZOFRAN ODT) 4 mg disintegrating tablet dissolve one tablet on the tongue every 8 hours as needed for nausea - pantoprazole DR (PROTONIX) 40 mg tablet Take 1 tablet by mouth two times a day. - hydrOXYzine HCl (ATARAX) 25 mg tablet Take 1-2 tablets by mouth at bedtime. Can cause drowsiness. - clobetasol (TEMOVATE) 0.05 % cream Apply to affected area twice daily Saturday-Saturday. Take weekends off. Do not use on face, armpits, neck, or groin. - Clobetasol Propionate (TEMOVATE) 0.05 % external solution Apply to affected areas on scalp twice daily Saturday-Saturday, take weekends off. May repeat as needed. - triamcinolone acetonide (KENALOG) 0.1 % cream Apply to affected areas twice daily for 2 weeks. - rizatriptan (MAXALT) 10 mg tablet Take 1 tablet (10 mg) by mouth as needed (at onset of headache. May repeat after 2 hours.). Do not exceed 30 mg per day. - topiramate (TOPAMAX) 25 mg tablet (Discontinued) Take by mouth. One tablet twice daily for a week; then two tablets twice daily thereafter. 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] 03/12/2018 Medication side effect [T88.7XXA] 03/12/2018 04/24/2019 Encounter for monitoring anticonvulsant therapy*03/12/2018 Vitamin D deficiency [E55.9] 06/15/2018 URI (obstructive sleep apnea) [G47.33] 08/28/2018 Anxiety [F41.9] 08/28/2018 Episode of recurrent major depressive disorder *08/28/2018 Splenomegaly [R16.1] 03/20/2019 Anemia [D64.9] 03/20/2019 Ganglion cyst of wrist, right [M67.431] 04/24/2019 Acute pain of right knee [M25.561] 09/20/2020 Plica of knee, right [M67.51] 02/20/2021 02/20/2021 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 She is able to eat a half cup of mashed potatoes with some broth for taste. She feels very full after eating that little bit. Some nausea and no vomiting. She has no issues keeping down fluids or painful swallowing. Patient aware that the biopsies are still in process. No chest pains, Shortness of Breath or bleeding. Please advise thank you Adriana Smith MA 01/18/2025 3:53 PM Signed Patient spoke with Endo nurse and went to the ER Allergies As of Date: 01/15/2025 Noted Allergy Reaction BLEACH (SODIUM HYPOCHLORITE) 03/22/2016 2 - Rash LAMICTAL (LAMOTRIGINE) 06/16/2018 2 - Rash PINE TREES (TREES) 03/22/2016 2 - Rash 4 - Hives TOPIRAMATE 06/07/2023 2 - Rash TREE AND SHRUB POLLEN 09/22/2023 16 - Unknown Date Reviewed: 01/15/2025 Reviewed by: Gala Castorena RN - Fully Assessed Reason for Visit: Patient Update [1234] Prescriptions as of 01/18/2025 - famotidine (PEPCID) 20 mg tablet Take 1 tablet by mouth two times a day for 14 days. - sucralfate (CARAFATE) 1 gram tablet Take 1 tablet by mouth four times daily for 14 days. - promethazine (PHENERGAN) 25 mg tablet Take 1 tablet by mouth every 6 hours as needed for nausea/vomiting for up to 7 days. - lacosamide (VIMPAT) 150 mg tab Take 1 tablet by mouth two times a day for 180 days. - levETIRAcetam (KEPPRA) 1,000 mg tablet Take 1 tablet by mouth two times a day. - ondansetron orally disintegrating (ZOFRAN ODT) 4 mg disintegrating tablet dissolve one tablet on the tongue every 8 hours as needed for nausea - pantoprazole DR (PROTONIX) 40 mg tablet Take 1 tablet by mouth two times a day. - hydrOXYzine HCl (ATARAX) 25 mg tablet Take 1-2 tablets by mouth at bedtime. Can cause drowsiness. - clobetasol (TEMOVATE) 0.05 % cream Apply to affected area twice daily Saturday-Saturday. Take weekends off. Do not use on face, armpits, neck, or groin. - Clobetasol Propionate (TEMOVATE) 0.05 % external solution Apply to affected areas on scalp twice daily Saturday-Saturday, take weekends off. May repeat as needed. - triamcinolone acetonide (KENALOG) 0.1 % cream Apply to affected areas twice daily for 2 weeks. - rizatriptan (MAXALT) 10 mg tablet Take 1 tablet (10 mg) by mouth as needed (at onset of headache. May repeat after 2 hours.). Do not exceed 30 mg per day. - topiramate (TOPAMAX) 25 mg tablet (Discontinued) Take by mouth. One tablet twice daily for a week; then two tablets twice daily thereafter. 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] 03/12/2018 Medication side effect [T88.7XXA] 03/12/2018 04/24/2019 Encounter for monitoring anticonvulsant therapy*03/12/2018 Vitamin D deficiency [E55.9] 06/15/2018 URI (obstructive sleep apnea) [G47.33] 08/28/2018 Anxiety [F41.9] 08/28/2018 Episode of recurrent major depressive disorder *08/28/2018 Splenomegaly [R16.1] 03/20/2019 Anemia [D64.9] 03/20/2019 Ganglion cyst of wrist, right [M67.431] 04/24/2019 Acute pain of right knee [M25.561] 09/20/2020 Plica of knee, right [M67.51] 02/20/2021 02/20/2021 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 0530 - CT ABD/PEL W IVCON / PROCEDURE REASON: Abdominal abscess/infection suspected * * * * Physician Interpretation * * * * EXAMINATION: CT ABDOMEN AND PELVIS WITH IV CONTRAST CLINICAL HISTORY: Upper abdominal pain, colonoscopy and EGD 12/24/2024 TECHNIQUE: CT of the abdomen and pelvis was performed using standard technique, scanning from just above the dome of the diaphragm to the symphysis pubis. MQ: CTAP_3 Contrast: IV: 100 ml of Omnipaque 350 : ml of CT Radiation dose: Integrated Dose-length product (DLP) for this visit = 418.29 mGy*cm. CT Dose Reduction Employed: Automated exposure control(AEC) and iterative recon COMPARISON: MRI liver 12/28/2023 RESULT: Liver: Hypodense lesion within segment 7 measuring 1.2 cm and segment 2 measuring 6 mm correlating with hemangiomas present on prior MRI. Biliary: No bile duct dilation. Gallbladder is unremarkable. Spleen: No mass. No splenomegaly. Pancreas: No mass or duct dilation. Adrenals: No mass. Kidneys: No mass, calculus or hydronephrosis. GI tract: No dilation or wall thickening. Normal appendix. Lymph nodes: No abdominal or pelvic lymphadenopathy. Mesentery/Peritoneum: No ascites, mass or free intraperitoneal gas. Retroperitoneum: No mass. Vasculature: - Abdominal aorta and iliac arteries: No aneurysm. - Celiac and SMA: Patent without stenosis. - Portal venous system (SMV, splenic vein, portal vein and branches): Patent. - Hepatic veins: Patent. Pelvis: Corpus luteum cyst in the left ovary measuring 2.2 cm. Trace free fluid in the pelvis. Uterus and bladder are unremarkable. Bones/Soft Tissues: No significant finding. Lower thorax: Unremarkable. Localizer images: No additional findings. IMPRESSION: No acute findings in the abdomen and pelvis. Corpus luteum cyst in the left ovary. Trace free fluid in the pelvis likely physiologic. Binitrotoluene Operator: PSCB Transcribe Date/Time: Jan 15 2025 4:16P Dictated by : MACEY CORNEJO MD This examination was interpreted and the report reviewed and electronically signed by: MACEY CORNEJO MD on Jan 15 2025 4:29PM EST [id number] Normal [facility] Comprehensive metabolic 2000 panelon 01-15-2025 Albumin [Mass/Vol] 4.3 g/dL Normal 3.9-4.9 [facility] Comment on above: Order Comment: Speci men Type: BLOOD SPECIMEN Ordering Facility: [facility] Address: [address] [place] [address] Performed By: #### 2 4323-8, 3040-3, #### [facility] CLIA [id number] [address] [place], [place] [address] [place] [address] [place] ALP [Catalytic activity/Vol] 55 U/L Normal 34-123 [facility] Comment on above: Order Comment: Speci men Type: BLOOD SPECIMEN Ordering Facility: [facility] Address: [address] [place] [address] Performed By: #### 2 4323-8, 3040-3, 15693-8 #### [facility] CLIA [id number] [address] [place] [address] [place] [address] ALT With P-5'-P [Catalytic activity/Vol] 11 U/L Normal 7-38 [facility] Comment on above: Order Comment: Speci men Type: BLOOD SPECIMEN Ordering Facility: [facility] Address: [address] [place] [address] Performed By: #### 2 4323-8, 3040-3, #### [facility] CLIA [id number] [address] [place] [address] [place] Anion gap [Moles/Vol] 11 mmol/L Normal 8-15 [facility] Comment on above: Order Comment: Speci men Type: BLOOD SPECIMEN Ordering Facility: [facility] Address: [address] [place] [address] Performed By: #### 2 4323-8, 3039-3, #### [facility] CLIA [id number] [address] [place] [address] [place] AST With P-5'-P [Catalytic activity/Vol] 16 U/L Normal 13-35 [facility] Comment on above: Order Comment: Speci men Type: BLOOD SPECIMEN Ordering Facility: [facility] Address: [address] [place] [address] Performed By: #### 2 4323-8, 3, #### [facility] CLIA [id number] [address] [place] [address] [place] Bilirubin [Mass/Vol] 0.2 mg/dL Normal 0.2-1.3 [facility] Comment on above: Order Comment: Speci men Type: BLOOD SPECIMEN Ordering Facility: [facility] Address: [address] [place] [address] Performed By: #### 2 4323-8, 3, #### [facility] CLIA [id number] [address] [place] [address] [place] Calcium [Mass/Vol] 9.8 mg/dL Normal 8.5-10.2 [facility] Comment on above: Order Comment: Speci men Type: BLOOD SPECIMEN Ordering Facility: [facility] Address: [address] [place] [address] Performed By: #### 2 4323-8, 3040-3, #### [facility] CLIA [id number] [address] [place] [address] [place] Chloride [Moles/Vol] 102 mmol/L Normal 98-107 [facility] Comment on above: Order Comment: Bradley whitehead Type: BLOOD SPECIMEN Ordering Facility: [facility] Address: [address] [place] [address] Performed By: #### 2 4323-8, 3040-3, #### [facility] CLIA [id number] [address] [place] [address] [place] CO2 [Moles/Vol] 24 mmol/L Normal 22-30 [facility] Comment on above: Order Comment: Bradley whitehead Type: BLOOD SPECIMEN Ordering Facility: [facility] Address: [address] [place] [address] Performed By: #### 2 4323-8, 3040-3, #### [facility] CLIA [id number] [address] [place] [address] [place] [facility] Creatinine [Mass/Vol] 0.94 mg/dL Normal 0.58-0.96 [facility] Comment on above: Order Comment: Bradley whitehead Type: BLOOD SPECIMEN Ordering Facility: [facility] Address: [address] [place] [address] Performed By: #### 2 4323-8, 3040-3, #### [facility] CLIA [id number] [address] [place] [address] [facility] [place] eGFRcr SerPlBld CKD-EPI 2020 78 mL/min/1.73m??? Normal >=60 [facility] Comment on above: Order Comment: Specshayla whitehead Type: BLOOD SPECIMEN Ordering Facility: [facility] Address: [address] [place] [address] Result Comment: Andree mated Glomerular Filtration Rate (eGFR) is calculated using the 2020 CKD-EPI creatinine equation. This equation utilizes serum creatinine, sex, and age as parameters. The creatinine assay has traceable calibration to isotope dilution-mass spectrometry. Refer to KDIGO guidelines for clinical interpretation. In patients with unstable renal function, e.g. those with acute kidney injury, the eGFR may not accurately reflect actual GFR. Performed By: #### 2 4323-8, 3040-3, #### [facility] CLIA [id number] [address] [place] [address] [place] Glucose [Mass/Vol] 87 mg/dL Normal 74-99 [facility] Comment on above: Order Comment: Bradley whitehead Type: BLOOD SPECIMEN Ordering Facility: [facility] Address: [address] [place] [address] Result Comment: The [place] Diabetes Association (ADA) provides guidance for cutoff values for fasting glucose and random glucose. The ADA defines fasting as no caloric intake for at least 8 hours. Fasting plasma glucose results between 100 to 125 mg/dL indicate increased risk for diabetes (prediabetes). Fasting plasma glucose results greater than or equal to 126 mg/dL meet the criteria for diagnosis of diabetes. In the absence of unequivocal hyperglycemia, results should be confirmed by repeat testing. In a patient with classic symptoms of hyperglycemia or hyperglycemic crisis, random plasma glucose results greater than or equal to 200 mg/dL meet the criteria for diagnosis of diabetes. Reference: Standards of Medical Care in Diabetes 2016, [place] Diabetes Association. Diabetes Care. 2016.39(Suppl 1). Performed By: #### 2 4323-8, 3039-3, #### [facility] CLIA [id number] [address] [place] [address] [place] Potassium [Moles/Vol] 3.6 mmol/L Low 3.7-5.1 [facility] Comment on above: Order Comment: Bradley whitehead Type: BLOOD SPECIMEN Ordering Facility: [facility] Address: [address] [id number] Performed By: #### 2 4323-8, 3039-3, #### [facility] CLIA [id number] [address] [place] [address] [place] Protein [Mass/Vol] 7.4 g/dL Normal 6.3-8.0 [facility] Comment on above: Order Comment: Bradley whitehead Type: BLOOD SPECIMEN Ordering Facility: [facility] Address: [address] [place], [place] [address], [place] [address] Performed By: #### 2 4323-8, 3040-3, #### [facility] CLIA [id number] [address] [place] [address] [place] [facility] Sodium [Moles/Vol] 137 mmol/L Normal 136-144 [facility] Comment on above: Order Comment: Speci men Type: BLOOD SPECIMEN Ordering Facility: [facility] Address: [address] [place] [address] [place] [id number] Performed By: #### 2 4323-8, 3040-3, #### [facility] CLIA [id number] [address] [place] [address] [place] Urea nitrogen [Mass/Vol] 11 mg/dL Normal 7-21 [facility] Comment on above: Order Comment: Speci men Type: BLOOD SPECIMEN Ordering Facility: [facility] Address: [address] [place] [address] [place] [address] Performed By: #### 2 4323-8, 3040-3, #### [facility] CLIA [id number] [address] [place] [address] [facility] ED NOTEon 01-15-2025 ED NOTE HNO ID: [id number] Author: GALA CASTORENA RN Service: ? Author Type: Registered Nurse Type: ED Notes Filed: 01/15/2025 15:31 Note Text: Patient informed: the name of medication, why we are giving it, possible side effects, what they may expect to feel, and was offered a chance to ask questions, prior to the administration of NaCl and Zofran Normal [facility] ED NOTE HNO ID: [id number] Author: GALA CASTORENA RN Service: ? Author Type: Registered Nurse Type: ED Notes Filed: 01/15/2025 14:54 Note Text: Pt arrives with c/o worsening abd pain, n/v. Pt had EGD and colonoscopy completed at [place] on Saturday. Pt reports pain at 2/10 upon arrival. Pt called the facility where procedure was completed and was instructed to be evaluated at ER. Normal [facility] ED PROV NOTEon 01-15-2025 ED PROV NOTE HNO ID: [id number] Author: ANGELA HENNESSY MD Service: Emergency Medicine Author Type: Physician Type: ED Provider Notes Filed: 01/15/2025 18:16 Note Text: ED Provider Note Patient Name: Yamil Ng : 1985 SERVICE DATE: 01/15/25 History Patient presents with: Abdominal Pain Nausea AND Vomiting 39-year-old female with past medical history of epilepsy who presents today with chief complaint of abdominal pain nausea and vomiting. She states she had an EGD and colonoscopy 2 days ago and has had the symptoms since that time. She states anytime she eats solid food she gets a feeling of fullness very quickly and then has nausea and vomiting. Emesis nonbloody nonbilious. Abdominal pain is upper in nature. She states she had a few polyps on her colonoscopy but otherwise she was told her scopes were normal. She denies any chest pain or shortness of breath. No fevers or chills. No urinary symptoms. Prior hyst. PAST MEDICAL HISTORY Diagnosis Date Anemia Complication of anesthesia nausea and vomiting Episode of recurrent major depressive disorder 08/28/2018 Family history of epilepsy aunt Hepatic hemangioma 01/20/2024 Hepatitis in viral diseases classified elsewhere(573.1) when she had mono Ovarian cyst 2004 [facility] - PAST MEDICAL HISTORY OF Right Sciatica Seizure disorder (HCC) 02/04/2018 Vaginal hematoma PAST SURGICAL HISTORY Procedure Laterality Date DELIVERY ONLY , low cervical x4 DELIVERY ONLY 10/14/2016 COLPOSCOPY CERVIX VAG LOOP ELTRD BX CERVIX 2020 EXCISION GANGLION WRIST DORSAL/VOLAR PRIMARY Right HYSTEROSCOPY ENDOMETRIAL ABLATION N/A 02/28/2023 KNEE SURGERY HX Right shaved patella and removed fat pad LAP HYSTERECTOMY FOR UTERUS 250G OR LESS 09/04/2023 LIG/TRNSXJ FLP TUBE ABDL/VAG APPR UNI/BI Bilateral 10/14/2016 VAGINAL CUFF REPAIR 09/22/2023 exam under anesthesia, pelvic irrigation and insertion of intraabdominal drain FAMILY HISTORY Problem Relation Age of Onset Hypertension Father Diabetes Father Hyperlipidemia Father Cataract Father other (Diverticulosis) Father other (FIBROMYALGIA) Sister Pancreatitis Sister Cancer Maternal Grandmother Breast Cancer Paternal Grandmother Heart Paternal Grandmother Stroke Paternal Grandfather Diabetes Maternal Aunt Anesthesia Problems No Family History Clotting Disorder No Family History Malig Hyperthermia No Family History Colon Cancer No Family History Social History Tobacco Use Smoking status: Never Smokeless tobacco: Never Vaping Use Vaping status: Never Used Substance and Sexual Activity Alcohol use: Yes Comment: occasional Drug use: No Sexual activity: Yes Partners: Male control/protection: Surgical, Vasectomy, Tubal Ligation Comment: hyst ALLERGIES Allergen Reactions Bleach (Sodium Hypo* Rash Lamictal [Lamotrigi* Rash [place] Trees [Trees] Rash, Hives Topiramate Rash Tree And Shrub Poll* Unknown Review of Systems Constitutional: Negative for fever. Gastrointestinal: Positive for abdominal pain, nausea and vomiting. Genitourinary: Negative for dysuria. Physical Exam Vitals [01/15/25 1450] BP Pulse Temp Temp src Resp SpO2 Weight Height 114/78 58 36.8 ?C (98.2 ?F) Temporal 13 99 % 68 kg (150 lb) 1.6 m (5' 3) Physical Exam Vitals and nursing note reviewed. Constitutional: General: She is not in acute distress. Appearance: She is well-developed. She is not diaphoretic. HENT: Head: Normocephalic and atraumatic. Eyes: General: Right eye: No discharge. Left eye: No discharge. Conjunctiva/sclera: Conjunctivae normal. Pupils: Pupils are equal, round, and reactive to light. Neck: Trachea: No tracheal deviation. Cardiovascular: Rate and Rhythm: Normal rate and regular rhythm. Heart sounds: Normal heart sounds. No murmur heard. No friction rub. No gallop. Pulmonary: Effort: Pulmonary effort is normal. No respiratory distress. Breath sounds: Normal breath sounds. No wheezing. Abdominal: General: Bowel sounds are normal. There is no distension. Palpations: Abdomen is soft. Tenderness: There is abdominal tenderness. There is no guarding or rebound. Comments: Epigastric TTP Musculoskeletal: Cervical back: Normal range of motion and neck supple. Lymphadenopathy: Cervical: No cervical adenopathy. Skin: General: Skin is warm and dry. Capillary Refill: Capillary refill takes less than 2 seconds. Findings: No rash. Neurological: Mental Status: She is alert and oriented to person, place, and time. Cranial Nerves: No cranial nerve deficit. Psychiatric: Behavior: Behavior normal. Diagnostic Testing ED Labs Ordered and Reviewed - No data to display Procedures ED Course / Clinical Impression Clinical Impressions as of 01/15/25 1815 Epigastric pain Nausea Pain following surgery or procedure MDM / Disposition / Plan 39-year-old female who presents tod (more content not included)... Normal [facility] Lipase SerPl-cCncon 01-16-20 25 Lipase [Catalytic activity/Vol] 38 U/L Normal 16-61 [facility] Comment on above: Order Comment: Speci men Type: BLOOD SPECIMEN Ordering Facility: [facility] Address: [address] [place] [address] Performed By: #### 2 4323-8, 3040-3, 89405-9 #### [facility] CLIA [id number] [address] [place] [address] [place] Magnesium SerPl-mCncon 01-15 Magnesium [Mass/Vol] 2.1 mg/dL Normal 1.7-2.3 [facility] Comment on above: Order Comment: Speci men Type: BLOOD SPECIMEN Ordering Facility: [facility] Address: [address] [place] [address] Performed By: #### 2 4323-8, 3040-3, 44171-3 #### [facility] CLIA [id number] [address] [id number] [place] Urinalysis complete panel (U )on 01-15-2025 Bacteria LM.HPF (Urine sed) [#/Area] Moderate Abnormal None Seen [facility] Comment on above: Order Comment: Speci men Type: URINE SPECIMENOrdering Facility: [facility] Address: [address] [place] [address] Performed By: #### 2 4356-8 ####[facility] [id number] [place] [address] [place] [facility] Bilirubin Ql (U) Negative Normal Negative [facility] Comment on above: Order Comment: Speci men Type: URINE SPECIMENOrdering Facility: [facility] Address: [address] [place] [address] Performed By: #### 2 4356-8 ####[facility] [id number] [place] [address] [facility] Clarity (Unsp spec) Cloudy Abnormal Clear [facility] Comment on above: Order Comment: Speci men Type: URINE SPECIMENOrdering Facility: [facility] Address: [address] [place] [address] Performed By: #### 2 4356-8 ####[facility] [id number] [place] [address] [facility] Color (U) Yellow Normal Yellow [facility] Comment on above: Order Comment: Speci men Type: URINE SPECIMENOrdering Facility: [facility] Address: [address] [place] [address] Performed By: #### 2 4356-8 ####[facility] [id number] [place] [address] [facility] Epithelial cells LM.HPF (Urine sed) [#/Area] Many Normal [facility] Comment on above: Order Comment: Speci men Type: URINE SPECIMENOrdering Facility: [facility] Address: [address] [place] [address] Performed By: #### 2 4356-8 ####[facility] [id number] [place] [address] [facility] Glucose Test strip (U) [Mass/Vol] Negative Normal Negative [facility] Comment on above: Order Comment: Speci men Type: URINE SPECIMENOrdering Facility: [facility] Address: [address] [place] [address] Performed By: #### 2 4356-8 ####[facility] [id number] [place] [address] [facility] Hemoglobin Ql (U) Negative Normal Negative [facility] Comment on above: Order Comment: Speci men Type: URINE SPECIMENOrdering Facility: [facility] Address: [address] [place] [address] Performed By: #### 2 4356-8 ####[facility] [id number] [facility] [address] [place] Ketones Ql (U) Negative Normal Negative [facility] Comment on above: Order Comment: Speci men Type: URINE SPECIMENOrdering Facility: [facility] Address: [address] [place] [address] Performed By: #### 2 4356-8 ####[facility] [id number] [place] [address] [facility] Leukocyte esterase Test strip Ql (U) Negative Normal Negative [facility] Comment on above: Order Comment: Speci men Type: URINE SPECIMENOrdering Facility: [facility] Address: [address] [place] [address] Performed By: #### 2 4356-8 ####[facility] [id number] [place] [address] [place] Nitrite Ql (U) Negative Normal Negative [facility] Comment on above: Order Comment: Speci men Type: URINE SPECIMENOrdering Facility: [facility] Address: [address] [place] [address] Performed By: #### 2 4356-8 ####[facility] [id number] [place] [address] [place] pH (U) 8.5 [pH] High 5.0-8.0 [facility] Comment on above: Order Comment: Speci men Type: URINE SPECIMENOrdering Facility: [facility] Address: [address] [place] [address] Performed By: #### 2 4356-8 ####[facility] [id number] [place] [address] [facility] Protein (U) [Mass/Vol] Negative Normal Negative [facility] Comment on above: Order Comment: Speci men Type: URINE SPECIMENOrdering Facility: [facility] Address: [address] [place] [address] Performed By: #### 2 4356-8 ####[facility] [id number] [place] [address] [place] [facility] RBC LM.HPF (Urine sed) [#/Area] 0-3 /HPF Normal 0-3 /HPF [facility] Comment on above: Order Comment: Speci men Type: URINE SPECIMENOrdering Facility: [facility] Address: [address] [place] [address] Performed By: #### 2 4356-8 ####[facility] [id number] [place] [address] [facility] Specific gravity (U) [Rel density] 1.015 Normal 1.005-1.030 [facility] Comment on above: Order Comment: Speci men Type: URINE SPECIMENOrdering Facility: [facility] Address: [address] [place] [address] Performed By: #### 2 4356-8 ####[facility] [id number] [address] Urobilinogen Ql (U) 0.2 EU/dL Normal 0.2-1.0 EU/dL [facility] Comment on above: Order Comment: Speci men Type: URINE SPECIMENOrdering Facility: [facility] Address: [address] [place] [address] Performed By: #### 2 4356-8 ####[facility]CLIA [id number] [place] [id number] [facility] WBC LM.HPF (Urine sed) [#/Area] 0-5 /HPF Normal 0-5 /HPF [facility] Comment on above: Order Comment: Speci men Type: URINE SPECIMENOrdering Facility: [facility] Address: [address] [place] [address] Performed By: #### 2 4356-8 ####[facility] [id number] [place] [address] [facility] [id number] 01-13-2025 [id number] HNO ID: [id number] Author: MALGORZATA ALONSO RN Service: ? Author Type: Registered Nurse Type: [id number] Filed: 01/13/2025 09:37 Note Text: The patient received a copy of Colonoscopy and EGD discharge instructions that contain information for how to contact the physician who performed the procedure and when to seek medical care. Normal [facility] ANES POSTPROC EVALon 025 ANES POSTPROC EVAL HNO ID: [id number] Author: CARMEN DEL CID APRN.CRNA Service: Anesthesiology Author Type: Nurse Bullet Slug Casting Machine Operator Type: Anesthesia Postprocedure Evaluation Filed: 01/13/2025 09:38 Note Text: POST ANESTHESIA EVALUATION NOTE : 1985 Procedure Summary Date: 01/13/25 Room / Location: Ambulatory Surgery Anesthesia Start: 902 Anesthesia Stop: 934 Procedures: EGD DIAGNOSTIC COLONOSCOPY DIAGNOSTIC Diagnosis: Nausea Epigastric pain Other constipation (Epigastric abdominal pain) (Constipation) Scheduled Providers: Coleen Maria MD Responsible Provider: Carmen Del Cid APRN.CRNA Anesthesia Type: MAC ASA Status: 3 Anesthesia Type: MAC Last Vitals Vitals Value Taken Time BP 85/48 01/13/25 0936 Temp 36.4 ?C (97.5 ?F) 01/13/25 0936 Pulse 58 01/13/25 0936 Resp 18 01/13/25 0936 SpO2 97 % 01/13/25 0936 Post Anesthesia Patient Status Patient Evaluation: PACU. PACU/ICU Patient Condition: stable. Anticipated Disposition: phase 2 then home. Neurological Status: aware and responsive. Pulmonary Status: breathing comfortably on room air Airway Control: returned to baseline unsupported. Cardiovascular Status: stable. Pain Management: clinically adequate - multimodal analgesia pain management approach Postoperative Hydration: acceptable. Intraoperative Events: no significant anesthesia events Post Operative Nausea/Vomiting Status: no significant post operative nausea or vomiting Recommendation: continue current plan of care. Anesthesia Observations No Documentation SIGNATURE: Carmen Del Cid APRN.ROOM CLERK PATIENT NAME: Yamil Ng DATE: January 13, 2025 TIME: 9:38 AM CSN: [id number] Normal [facility] ANES PRE-OPon 01-13-2025 ANES PRE-OP HNO ID: [id number] Author: CARMEN DEL CID APRN.CRNA Service: Anesthesiology Author Type: Nurse Bullet Slug Casting Machine Operator Type: Anesthesia Preprocedure Evaluation Filed: 01/13/2025 08:47 Note Text: ANESTHESIOLOGY DAY OF SURGERY NOTE : 1985 Procedure Information Date/Time: 01/13/25844 Scheduled providers: Coleen Maria MD Procedures: EGD DIAGNOSTIC COLONOSCOPY DIAGNOSTIC Location: Ambulatory Surgery Estimated body mass index is 26.57 kg/m? as calculated from the following: Height as of this encounter: 160 cm (5' 3). Weight as of this encounter: 68 kg (150 lb). Most recent hematocrit and potassium results: Hematocrit 42.0 01/09/2025 Potassium 4.2 01/09/2025 Relevant Problems ANESTHESIA (+) URI (obstructive sleep apnea) (+) PONV (postoperative nausea and vomiting) GI (+) GERD (gastroesophageal reflux disease) NEURO-PSYCH (+) Focal epilepsy (HCC) PULMONARY (+) URI (obstructive sleep apnea) Other (+) Splenomegaly I - PHYSICAL EVALUATION AIRWAY Patient intubated: No. Tracheostomy tube not present Mallampati: II. TM distance: >3 FB. Neck ROM: full ROM without neurological symptoms. Mouth opening: adequate. Short neck: no. Thick neck: no DENTAL Dental findings: teeth intact. Additional exam findings: no II - ANESTHESIA PLAN ASA Score: 3 Anesthetic Plan: MAC The patient is not a current smoker. NPO Status: adequate Beta Harsha Monitoring Plan Monitoring plan: standard ASA. Post Procedure Analgesic Plan Postoperative analgesic plan: parenteral or oral opioids and multimodal analgesia. Informed Consent Anesthetic risks, benefits, alternatives, personnel and consent discussed: yes. Patient / Responsible Alliance Party agrees to proceed: yes Patient / Surrogate agrees to blood products: blood products not planned Significant changes in the patient condition since the History and Physical, not otherwise documented in primary service progress note: no. Potential Anesthesia issues that may suggest increased risk of complications or contraindication to planned procedure: none. Discussed the possibility of lip / dental damage: yes Vitals Value Taken Time BP 133/72 01/13/25 0805 Pulse 63 01/13/25 0805 Resp 16 01/13/25 0805 Temp 36.6 ?C (97.8 ?F) 01/13/25 08 SpO2 100 % 01/13/25 0805 Outpatient Medications as of 01/13/2025 Medication Sig - lacosamide (VIMPAT) 150 mg tab Take 1 tablet by mouth two times a day for 180 days. - levETIRAcetam (KEPPRA) 1,000 mg tablet Take 1 tablet by mouth two times a day. - ondansetron orally disintegrating (ZOFRAN ODT) 4 mg disintegrating tablet dissolve one tablet on the tongue every 8 hours as needed for nausea - pantoprazole DR (PROTONIX) 40 mg tablet Take 1 tablet by mouth two times a day. - hydrOXYzine HCl (ATARAX) 25 mg tablet Take 1-2 tablets by mouth at bedtime. Can cause drowsiness. - clobetasol (TEMOVATE) 0.05 % cream Apply to affected area twice daily Saturday-Saturday. Take weekends off. Do not use on face, armpits, neck, or groin. - Clobetasol Propionate (TEMOVATE) 0.05 % external solution Apply to affected areas on scalp twice daily Saturday-Saturday, take weekends off. May repeat as needed. - triamcinolone acetonide (KENALOG) 0.1 % cream Apply to affected areas twice daily for 2 weeks. - rizatriptan (MAXALT) 10 mg tablet Take 1 tablet (10 mg) by mouth as needed (at onset of headache. May repeat after 2 hours.). Do not exceed 30 mg per day. Facility-Administered Medications as of 01/13/2025 Medication Dose Route Frequency - lidocaine (PF) 10 mg/mL (1 %) 1-2 mg injection (XYLOCAINE) 0.1-0.2 mL INTRADERMAL PRN - lactated ringers iv infusion 30 mL/hr INTRAVENOUS CONTINUOUS I have interviewed and examined the patient. I have reviewed the medical record and/or the pre-anesthesia evaluation, pertinent labs, and test results. This contains updated information obtained within 48 hours of Surgery/Procedure. SIGNATURE: Carmen Del Cid APRN.ROOM CLERK PATIENT NAME: Yamil Ng DATE: January 13, 2025 TIME: 8:46 AM CSN: [id number] Normal [facility] Colonoscopyon 01-13-[address] [facility] G[facility] Patient Name: Yamil Ng Procedure Date: 01/13/2025 8:59 AM Date of : 1985 Admit Type: Outpatient Age: 39 Room: [facility] Gender: Female Note Status: Finalized Attending MD: Coleen Maria MD, [id number] Procedure: Colonoscopy Indications: Constipation Providers: Coleen Maria MD Patient Profile: Refer to note in patient chart for documentation of history and physical. Last Colonoscopy: none. The patient's first colonoscopy is today. Referring Physician: Domitila (bharat) Grayson (Referring ) Medicines: Monitored Anesthesia Care Complications: No immediate complications. Requesting Provider: Procedure: Pre-Anesthesia Assessment: - Prior to the procedure, a History and Physical was performed, and patient medications and allergies were reviewed. The patient is competent. The risks and benefits of the procedure and the sedation options and risks were discussed with the patient. All questions were answered and informed consent was obtained. Patient identification and proposed procedure were verified by the physician in the pre-procedure area in the procedure room. Mental Status Examination: alert and oriented. Airway Examination: normal oropharyngeal airway and neck mobility. Respiratory Examination: clear to auscultation. CV Examination: normal. Prophylactic Antibiotics: The patient does not require prophylactic antibiotics. Prior Anticoagulants: The patient has taken no anticoagulant or antiplatelet agents. After reviewing the risks and benefits, the patient was deemed in satisfactory condition to undergo the procedure. The anesthesia plan was to use moderate sedation / analgesia (conscious sedation). Immediately prior to administration of medications, the patient was re-assessed for adequacy to receive sedatives. The heart rate, respiratory rate, oxygen saturations, blood pressure, adequacy of pulmonary ventilation, and response to care were monitored throughout the procedure. The physical status of the patient was re-assessed after the procedure. After I obtained informed consent, the scope was passed under direct vision. Throughout the procedure, the patient's blood pressure, pulse, and oxygen saturations were monitored continuously. The Colonoscope was introduced through the anus and advanced to the terminal ileum, with identification of the appendiceal orifice and IC valve. I was present and participated during the entire procedure, including non-bhat portions, and during the administration and monitoring of Moderate Sedation. The colonoscopy was performed without difficulty. The patient tolerated the procedure well. The quality of the bowel preparation was good. The terminal ileum, ileocecal valve, appendiceal orifice, and rectum were photographed. Moderate Sedation: MAC anesthesia was administered by the anesthesia team. Findings: The perianal and digital rectal examinations were normal. The terminal ileum appeared normal. A 2 mm polyp was found in the cecum. The polyp was sessile. The polyp was removed with a cold biopsy forceps. Resection and retrieval were complete. The exam was otherwise without abnormality on direct and retroflexion views. Impression: - The examined portion of the ileum was normal. - One 2 mm polyp in the cecum, removed with a cold biopsy forceps. Resected and retrieved. - The examination was otherwise normal on direct and retroflexion views. Recommendation: - The patient will be observed post-procedure, until all discharge criteria are met. - Patient has a contact number available for emergencies. The signs and symptoms of potential delayed complications were discussed with the patient. Return to normal activities tomorrow. Written discharge instructions were provided to the patient. - Resume previous diet. - Continue present medications. - Repeat colonoscopy in 5 years for surveillance. Procedure Code(s): --- Professional --- 64829, Colonoscopy, flexible; with biopsy, single or multiple CPT copyright 2020 [employer]. All rights reserved. The codes documented in this report are preliminary and upon full service supervisor review may be revised to meet current compliance requirements. Attending Participation: I personally performed the entire procedure. Scope In: 9:19:32 AM Scope Out: 9:30:08 AM MD Coleen Gallardo MD 01/13/2025 9:32:45 AM This report has been signed electronically by Coleen Maria MD Number of Addenda: 0 Note Initiated On: 01/13/2025 8:59 AM Estimated Blood Loss: Estimated blood loss was minimal. Normal [facility] EGD Study observation Narrat alice 01-13-2025 [facility] Patient Name: Yamil Ng Procedure Date: 01/13/2025 8:59 AM Date of : 1985 Admit Type: Outpatient Age: 39 Room: [place] [address] Gender: Female Note Status: Finalized Attending MD: Coleen Maria MD, [id number] Procedure: Upper GI endoscopy Indications: Epigastric abdominal pain, Nausea Providers: Coleen Maria MD Patient Profile: Refer to note in patient chart for documentation of history and physical. Referring Physician: Domitila (alarm field technician) Grayson (Referring MD) Medicines: Monitored Anesthesia Care Complications: No immediate complications. Requesting Provider: Procedure: Pre-Anesthesia Assessment: - Prior to the procedure, a History and Physical was performed, and patient medications and allergies were reviewed. The patient is competent. The risks and benefits of the procedure and the sedation options and risks were discussed with the patient. All questions were answered and informed consent was obtained. Patient identification and proposed procedure were verified by the physician in the pre-procedure area in the procedure room. Mental Status Examination: alert and oriented. Airway Examination: normal oropharyngeal airway and neck mobility. Respiratory Examination: clear to auscultation. CV Examination: normal. Prophylactic Antibiotics: The patient does not require prophylactic antibiotics. Prior Anticoagulants: The patient has taken no anticoagulant or antiplatelet agents. After reviewing the risks and benefits, the patient was deemed in satisfactory condition to undergo the procedure. The anesthesia plan was to use moderate sedation / analgesia (conscious sedation). Immediately prior to administration of medications, the patient was re-assessed for adequacy to receive sedatives. The heart rate, respiratory rate, oxygen saturations, blood pressure, adequacy of pulmonary ventilation, and response to care were monitored throughout the procedure. The physical status of the patient was re-assessed after the procedure. After obtaining informed consent, the endoscope was passed under direct vision. Throughout the procedure, the patient's blood pressure, pulse, and oxygen saturations were monitored continuously. The Endoscope was introduced through the mouth, and advanced to the second part of duodenum. I was present and participated during the entire procedure, including non-bhat portions, and during the administration and monitoring of Moderate Sedation. The upper GI endoscopy was accomplished without difficulty. The patient tolerated the procedure well. Moderate Sedation: MAC anesthesia was administered by the anesthesia team. Findings: The examined esophagus was normal. The entire examined stomach was normal. Biopsies were taken with a cold forceps for Helicobacter pylori testing. The examined duodenum was normal. Estimated blood loss: none. Biopsies for histology were taken with a cold forceps for evaluation of celiac disease. Impression: - Normal esophagus. - Normal stomach. Biopsied. - Normal examined duodenum. Biopsied. Recommendation: - Discharge patient to home. - Resume previous diet. - Continue present medications. - Await pathology results. - Patient has a contact number available for emergencies. The signs and symptoms of potential delayed complications were discussed with the patient. Return to normal activities tomorrow. Written discharge instruct (more content not included)... PROVATION [facility] Radiology Study observation (narrative) Vicki boston [facility] Flexible sigmoidoscopy study on 01-13-2025 [facility] Patient Name: Yamil Ng Procedure Date: 01/13/2025 8:59 AM Date of : 1985 Admit Type: Outpatient Age: 39 Room: [place] [address] Gender: Female Note Status: Finalized Attending MD: Coleen Maria MD, [id number] Procedure: Colonoscopy Indications: Constipation Providers: Coleen Maria MD Patient Profile: Refer to note in patient chart for documentation of history and physical. Last Colonoscopy: none. The patient's first colonoscopy is today. Referring Physician: Domitila (alarm field technician) Grayson (Referring MD) Medicines: Monitored Anesthesia Care Complications: No immediate complications. Requesting Provider: Procedure: Pre-Anesthesia Assessment: - Prior to the procedure, a History and Physical was performed, and patient medications and allergies were reviewed. The patient is competent. The risks and benefits of the procedure and the sedation options and risks were discussed with the patient. All questions were answered and informed consent was obtained. Patient identification and proposed procedure were verified by the physician in the pre-procedure area in the procedure room. Mental Status Examination: alert and oriented. Airway Examination: normal oropharyngeal airway and neck mobility. Respiratory Examination: clear to auscultation. CV Examination: normal. Prophylactic Antibiotics: The patient does not require prophylactic antibiotics. Prior Anticoagulants: The patient has taken no anticoagulant or antiplatelet agents. After reviewing the risks and benefits, the patient was deemed in satisfactory condition to undergo the procedure. The anesthesia plan was to use moderate sedation / analgesia (conscious sedation). Immediately prior to administration of medications, the patient was re-assessed for adequacy to receive sedatives. The heart rate, respiratory rate, oxygen saturations, blood pressure, adequacy of pulmonary ventilation, and response to care were monitored throughout the procedure. The physical status of the patient was re-assessed after the procedure. After I obtained informed consent, the scope was passed under direct vision. Throughout the procedure, the patient's blood pressure, pulse, and oxygen saturations were monitored continuously. The Colonoscope was introduced through the anus and advanced to the terminal ileum, with identification of the appendiceal orifice and IC valve. I was present and participated during the entire procedure, including non-bhat portions, and during the administration and monitoring of Moderate Sedation. The colonoscopy was performed without difficulty. The patient tolerated the procedure well. The quality of the bowel preparation was good. The terminal ileum, ileocecal valve, appendiceal orifice, and rectum were photographed. Moderate Sedation: MAC anesthesia was administered by the anesthesia team. Findings: The perianal and digital rectal examinations were normal. The terminal ileum appeared normal. A 2 mm polyp was found in the cecum. The polyp was sessile. The polyp was removed with a cold biopsy forceps. Resection and retrieval were complete. The exam was otherwise without abnormality on direct and retroflexion views. Impression: - The examined portion of the ileum was normal. - One 2 mm polyp in the cecum, removed with a cold biopsy forceps. Resected and retrieved. - The examination was otherwise normal on direct and retroflexion views. Recommenda (more content not included)... PR[facility]ATION [facility] Radiology Study observation (narrative) [facility] HISTORY PHYSICALon HISTORY PHYSICAL HNO ID: [id number] Author: COLEEN MARIA MD Service: Gastroenterology Author Type: Physician Type: H&P Filed: 01/13/2025 08:59 Note Text: PROCEDURAL SEDATION HISTORY AND PHYSICAL EXAM SERVICE DATE: 01/13/2025 SERVICE TIME: 8:59 AM Subjective HPI: This is a 39 year old female who presents for screening Upper endoscopy and Colonoscopy PAST ANESTHESIA HISTORY: No history of adverse event PAST MEDICAL HISTORY Diagnosis Date Anemia Complication of anesthesia nausea and vomiting Episode of recurrent major depressive disorder 08/28/2018 Family history of epilepsy aunt Hepatic hemangioma 01/20/2024 Hepatitis in viral diseases classified elsewhere(573.1) when she had mono Ovarian cyst 2004 [facility] - PAST MEDICAL HISTORY OF Right Sciatica Seizure disorder (HCC) 02/04/2018 Vaginal hematoma PAST SURGICAL HISTORY Procedure Laterality Date DELIVERY ONLY , low cervical x4 DELIVERY ONLY 10/14/2016 COLPOSCOPY CERVIX VAG LOOP ELTRD BX CERVIX 2020 EXCISION GANGLION WRIST DORSAL/VOLAR PRIMARY Right HYSTEROSCOPY ENDOMETRIAL ABLATION N/A 02/28/2023 KNEE SURGERY HX Right shaved patella and removed fat pad LAP HYSTERECTOMY FOR UTERUS 250G OR LESS 09/04/2023 LIG/TRNSXJ FLP TUBE ABDL/VAG APPR UNI/BI Bilateral 10/14/2016 VAGINAL CUFF REPAIR 09/22/2023 exam under anesthesia, pelvic irrigation and insertion of intraabdominal drain Prior to Admission medications as of 01/13/25 0754 Medication Sig Last Dose Taking lacosamide (VIMPAT) 150 mg tab Take 1 tablet by mouth two times a day for 180 days. Unknown levETIRAcetam (KEPPRA) 1,000 mg tablet Take 1 tablet by mouth two times a day. Unknown ondansetron orally disintegrating (ZOFRAN ODT) 4 mg disintegrating tablet dissolve one tablet on the tongue every 8 hours as needed for nausea Unknown pantoprazole DR (PROTONIX) 40 mg tablet Take 1 tablet by mouth two times a day. Unknown hydrOXYzine HCl (ATARAX) 25 mg tablet Take 1-2 tablets by mouth at bedtime. Can cause drowsiness. Unknown clobetasol (TEMOVATE) 0.05 % cream Apply to affected area twice daily Saturday-Saturday. Take weekends off. Do not use on face, armpits, neck, or groin. Unknown Clobetasol Propionate (TEMOVATE) 0.05 % external solution Apply to affected areas on scalp twice daily Saturday-Saturday, take weekends off. May repeat as needed. Unknown triamcinolone acetonide (KENALOG) 0.1 % cream Apply to affected areas twice daily for 2 weeks. Unknown rizatriptan (MAXALT) 10 mg tablet Take 1 tablet (10 mg) by mouth as needed (at onset of headache. May repeat after 2 hours.). Do not exceed 30 mg per day. Unknown topiramate (TOPAMAX) 25 mg tablet Take by mouth. One tablet twice daily for a week; then two tablets twice daily thereafter. ALLERGIES Allergen Reactions Bleach (Sodium Hypo* Rash Lamictal [Lamotrigi* Rash [place] Trees [Trees] Rash, Hives Topiramate Rash Tree And Shrub Poll* Unknown Objective PHYSICAL EXAM: The remainder of the physical exam is noncontributory. GENERAL: Alert, no distress, cooperative SKIN: Skin color, texture, turgor normal. No rashes or lesions. HEAD/SINUSES: No significant findings ABDOMEN: Abdomen soft, non-tender, BS normal, No masses or organomegaly AIRWAY: Mouth opening greater than 3 fingerbreadths: Yes Neck Full Range of Motion: Yes LUNGS: Lungs clear to auscultation CARDIAC: Regular rhythm,Regular rate Assessment/Plan ASA Class: ASA Class: Patient with mild systemic disease Active Problems: * No active hospital problems. * Resolved Problems: * No resolved hospital problems. * Medication and Non-Pharmacologic VTE Prophylaxis/Anticoagul ants VTE Prophylaxis: VTE prophylaxis appropriate Provisional Diagnosis/Treatment Plan: EGD and colonoscopy Sedation Goal: Anesthesia SIGNATURE: Coleen Maria MD, MD PATIENT NAME: Yamil Ng DATE: January 13, 2025 TIME: 8:59 AM Normal [facility] Pathology biopsy report Lele (Tiss)on 01-13-2025 AP DISCLAIMER Normal [facility] Comment on above: Order Comment: Speci charley Type: BLOOD SPECIMEN Ordering Facility: [facility] Address: [address] [place] [address] Result Comment: Susan gamboa Developed Test (LDT) Disclaimer: Performance characteristics of immunohistochemical, immunofluorescent, and chromogenic in-situ hybridization tests have been determined by the performing laboratory within [facility]'s [facility] Pathology and Laboratory Medicine Department ([facility], [facility], [facility], [facility], [facility], [facility], or [facility]) in a manner consistent with CLIA requirements. One or more of these tests may not have been cleared or approved by the FDA. [facility] is regulated under CLIA as qualified to perform high-complexity testing. These tests are used for clinical purposes. These should not be regarded as investigational or for research. Positive and negative controls stain appropriately. Performed By: #### 3 0471-7 #### [facility] CLIA [id number] [address] [place] [address] [place] CASE REPORT Normal [facility] Comment on above: Order Comment: Speci men Type: BLOOD SPECIMEN Ordering Facility: [facility] Address: [address] [place] [address] Result Comment: Surg ical Pathology Report Case: [id number] Authorizing Provider: Coleen Maria MD Collected: 01/13/2025 09:10 AM Ordering Location: Ambulatory Surgery Received: 01/13/2025 09:39 PM Pathologist: Marcie David MD Specimens: A) - Small Bowel, Duodenum, Biopsy, r/o celiac disease B) - Stomach, Biopsy, r/o H Pylori C) - Colon, Cecum, Polyp Performed By: #### 3 0471-7 #### [facility] [place] [id number] [address] [place] [address] DIAGNOSIS COMMENT Normal [facility] Comment on above: Order Comment: Speci men Type: BLOOD SPECIMEN Ordering Facility: [facility] Address: [address] [place] [address] Result Comment: Bill G iven the presence of chronic gastritis and intestinal metaplasia, immunohistochemical stains have been performed on block B1. An immunohistochemical stain for Helicobacter pylori organisms is negative. A gastrin stain confirms the presence of separate fragments of antral-type and oxyntic-type mucosa. A synaptophysin stain highlights areas of linear and micronodular ECL cell hyperplasia. While the presence of ECL cell hyperplasia raises the possibility of an early/evolving autoimmune gastritis, it can also be seen in the setting of chronic PPI therapy. Correlation with clinical, endoscopic, and other laboratory findings (e.g., serum gastrin and vitamin B12 levels, testing for anti-parietal cell and anti-intrinsic factor autoantibodies) may be helpful if indicated. C. There is no evidence of dysplasia, including on multiple additional deeper levels. Performed By: #### 3 0471-7 #### [facility] [place] [id number] [address] [place] [address] FINAL DIAGNOSIS Normal [facility] Comment on above: Order Comment: Speci men Type: BLOOD SPECIMEN Ordering Facility: [facility] Address: [address] [place] [address] Result Comment: Jodie D uodenum, biopsy: - Small bowel mucosa with no diagnostic abnormality. B. Stomach, biopsy: - Gastric antral-type mucosa with chronic inactive gastritis, reactive gastropathy, and intestinal metaplasia, negative for dysplasia. 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 - See comment. C. Cecal polyp, biopsy: - Colonic mucosa with minimal hyperplastic changes. - See comment. JEL 01/14/2025 at 1346 EDT Performed By: #### 3 0471-7 #### [facility] CLIA [id number] [address] [place] [address] [place] FINAL PERFORMING LAB Normal [facility] Comment on above: Order Comment: Speci men Type: BLOOD SPECIMEN Ordering Facility: [facility] Address: [address] [place] [address] Result Comment: Diag nostic interpretation performed at: [facility], [address] [place] [address] CLIA# [id number] Engine Inspector: Marcie David MD Performed By: #### 3 0471-7 #### [facility] CLIA [id number] [address] [place] [address] OF [facility] GROSS DESCRIPTION Normal [facility] Comment on above: Order Comment: Speci men Type: BLOOD SPECIMEN Ordering Facility: [facility] Address: [address] [place] [address] Result Comment: A. S mall Bowel, Duodenum, Biopsy Received in formalin are multiple pieces of pugh, soft tissue aggregating to 1.6 x 0.2 x 0.1 cm. Totally submitted in one cassette. B. Stomach, Biopsy Received in formalin are multiple pieces of pugh, soft tissue aggregating to 1.3 x 0.3 x 0.1 cm. Totally submitted in one cassette. C. Colon, Cecum, Polyp Received in formalin is one piece of pugh, soft tissue measuring 0.1 x 0.1 x 0.1 cm. Totally submitted in one cassette. Specimen may not survive processing. [facility] January 14, 2025 8:27 AM Gross examination performed at [facility], [address] [place] [address] Performed By: #### 3 0471-7 #### [facility] CLIA [id number] [address] [place] [address] [place] Upper GI endoscopyon -23-[address] [facility] Patient Name: Yamil Ng Procedure Date: 01/13/2025 8:59 AM Date of : 1985 Admit Type: Outpatient Age: 39 Room: [place] [address] Gender: Female Note Status: Finalized Attending MD: Coleen Maria MD, [id number] Procedure: Upper GI endoscopy Indications: Epigastric abdominal pain, Nausea Providers: Coleen Maria MD Patient Profile: Refer to note in patient chart for documentation of history and physical. Referring Physician: Domitila (alarm field technician) Grayson (Referring MD) Medicines: Monitored Anesthesia Care Complications: No immediate complications. Requesting Provider: Procedure: Pre-Anesthesia Assessment: - Prior to the procedure, a History and Physical was performed, and patient medications and allergies were reviewed. The patient is competent. The risks and benefits of the procedure and the sedation options and risks were discussed with the patient. All questions were answered and informed consent was obtained. Patient identification and proposed procedure were verified by the physician in the pre-procedure area in the procedure room. Mental Status Examination: alert and oriented. Airway Examination: normal oropharyngeal airway and neck mobility. Respiratory Examination: clear to auscultation. CV Examination: normal. Prophylactic Antibiotics: The patient does not require prophylactic antibiotics. Prior Anticoagulants: The patient has taken no anticoagulant or antiplatelet agents. After reviewing the risks and benefits, the patient was deemed in satisfactory condition to undergo the procedure. The anesthesia plan was to use moderate sedation / analgesia (conscious sedation). Immediately prior to administration of medications, the patient was re-assessed for adequacy to receive sedatives. The heart rate, respiratory rate, oxygen saturations, blood pressure, adequacy of pulmonary ventilation, and response to care were monitored throughout the procedure. The physical status of the patient was re-assessed after the procedure. After obtaining informed consent, the endoscope was passed under direct vision. Throughout the procedure, the patient's blood pressure, pulse, and oxygen saturations were monitored continuously. The Endoscope was introduced through the mouth, and advanced to the second part of duodenum. I was present and participated during the entire procedure, including non-bhat portions, and during the administration and monitoring of Moderate Sedation. The upper GI endoscopy was accomplished without difficulty. The patient tolerated the procedure well. Moderate Sedation: MAC anesthesia was administered by the anesthesia team. Findings: The examined esophagus was normal. The entire examined stomach was normal. Biopsies were taken with a cold forceps for Helicobacter pylori testing. The examined duodenum was normal. Estimated blood loss: none. Biopsies for histology were taken with a cold forceps for evaluation of celiac disease. Impression: - Normal esophagus. - Normal stomach. Biopsied. - Normal examined duodenum. Biopsied. Recommendation: - Discharge patient to home. - Resume previous diet. - Continue present medications. - Await pathology results. - Patient has a contact number available for emergencies. The signs and symptoms of potential delayed complications were discussed with the patient. Return to normal activities tomorrow. Written discharge instructions were provided to the patient. Procedure Code(s): --- Professional --- 94964, Esophagogastroduodenos copy, flexible, transoral; with biopsy, single or multiple CPT copyright 2020 [employer]. All rights reserved. The codes documented in this report are preliminary and upon full service supervisor review may be revised to meet current compliance requirements. Attending Participation: I personally performed the entire procedure. Scope In: 9:09:55 AM Scope Out: 9:14:57 AM MD Coleen Gallardo MD 01/13/2025 9:17:19 AM This report has been signed electronically by Coleen Maria MD Number of Addenda: 0 Note Initiated On: 01/13/2025 8:59 AM Estimated Blood Loss: Estimated blood loss was minimal. Normal [facility] LULU SCREENING W TOMOon 01-12 LULU SCREENING W ELLIE * * *Final Report* * * DATE OF EXAM: Jan 12 2025 3:58PM WRW [id number] - LULU SCREENING W ELLIE / PROCEDURE REASON: Encounter for screening mammogram for breast cancer * * * * Physician Interpretation * * * * RESULT: [place] [address] [place] [id number] #[id number] - LULU SCREENING W ELLIE HISTORY: 39 year-old patient presents for screening. Patient is asymptomatic in both breasts. Patient states no personal history of breast cancer. The patient has a family history of breast and ovarian cancer. COMPARISON STUDIES: The present examination has been compared to prior imaging studies dated 11/06/2023 (mammogram) and 12/10/2023 (mammogram). MAMMOGRAM TECHNIQUE: The study was acquired using full field digital technology and interpreted from soft copy. Digital Breast Tomosynthesis (DBT) images were obtained and used to assist in the interpretation of this examination. MAMMOGRAM FINDINGS: The breasts are heterogeneously dense, which may obscure small masses. No suspicious masses, calcifications or other abnormalities are seen in either breast. There are no significant interval changes. IMPRESSION: There is no mammographic evidence of malignancy in either breast. Routine screening mammogram is recommended. Annual mammogram will be due in 1 year. BI-RADS Category 1: Negative RISK: Based on the Tyrer-Cuzick (TC) risk assessment model, this patient has a 10.6% lifetime risk of developing breast cancer, meaning they are at average risk for developing breast cancer. However, this is only an estimate based on available history provided on the patient's questionnaire. We encourage all patients to talk with their providers about these results, further recommendations for managing breast health, and appropriate supplemental screening options if the patient has dense breast tissue. Interpreting Radiologist: Sheela Rivera M.D. Electronically signed on: 01/13/2025 Binitrotoluene Operator: ANI Transcribe Date/Time: Jan 12 2025 3:32P Dictated by: SHEELA RIVERA MD This examination was interpreted and the report reviewed and electronically signed by: SHEELA RIVERA MD on Jan 13 2025 11:07AM EST [id number] Normal [facility] CBC panel Auto (Bld)on 01-09 Erythrocyte distribution width (RBC) [Ratio] 13.2 % Normal 11.5-15.0 [facility] Comment on above: Order Comment: Speci men Type: BLOOD SPECIMEN Ordering Facility: [facility] Address: [address] [place] [address] Performed By: #### 5 8410-2 #### [facility] CLIA [id number] [address] [place] [address] [place] [address] [place] Hematocrit (Bld) [Volume fraction] 42.0 % Normal 36.0-46.0 [facility] Comment on above: Order Comment: Speci men Type: BLOOD SPECIMEN Ordering Facility: [facility] Address: [address] [place] [address] Performed By: #### 5 8410-2 #### [facility] CLIA [id number] [address] [place] [address] [place] Hemoglobin (Bld) [Mass/Vol] 14.2 g/dL Normal 11.5-15.5 [facility] Comment on above: Order Comment: Speci men Type: BLOOD SPECIMEN Ordering Facility: [facility] Address: [address] [place] [address] Performed By: #### 5 8410-2 #### [facility] CLIA [id number] [address] [place] [address] [place] MCH (RBC) [Entitic mass] 29.4 pg Normal 26.0-34.0 [facility] Comment on above: Order Comment: Speci men Type: BLOOD SPECIMEN Ordering Facility: [facility] Address: [address] [place] [address] Performed By: #### 5 8410-2 #### [facility] CLIA [id number] [address] [place] [address] [place] MCHC (RBC) [Mass/Vol] 33.8 g/dL Normal 30.5-36.0 [facility] Comment on above: Order Comment: Speci men Type: BLOOD SPECIMEN Ordering Facility: [facility] Address: [address] [place] [address] Performed By: #### 5 8410-2 #### [facility] CLIA [id number] [address] [place] [address] [place] MCV (RBC) [Entitic vol] 87.0 fL Normal 80.0-100.0 [facility] Comment on above: Order Comment: Speci men Type: BLOOD SPECIMEN Ordering Facility: [facility] Address: [address] [place] [address] Performed By: #### 5 8410-2 #### [facility] CLIA [id number] [address] [place] [address] [place] Nucleated RBC (Bld) [#/Vol] 10*3/uL Normal <0.01 [facility] Comment on above: Order Comment: Speci men Type: BLOOD SPECIMEN Ordering Facility: [facility] Address: [address] [place] [address] Performed By: #### 5 8410-2 #### [facility] CLIA [id number] [address] [place] [address] [place] Platelet mean volume (Bld) [Entitic vol] 9.3 fL Normal 9.0-12.7 [facility] Comment on above: Order Comment: Speci men Type: BLOOD SPECIMEN Ordering Facility: [facility] Address: [address] [place] [address] Performed By: #### 5 8410-2 #### [facility] CLIA [id number] [address] [place] [address] [place] Platelets (Bld) [#/Vol] 301 10*3/uL Normal 150-400 [facility] Comment on above: Order Comment: Speci men Type: BLOOD SPECIMEN Ordering Facility: [facility] Address: [address] [place] [address] Performed By: #### 5 8410-2 #### [facility] CLIA [id number] [address] [place] [address] [place] RBC (Bld) [#/Vol] 4.83 10*6/uL Normal 3.90-5.20 [facility] Comment on above: Order Comment: Speci men Type: BLOOD SPECIMEN Ordering Facility: [facility] Address: [address] [place] [address] Performed By: #### 5 8410-2 #### [facility] CLIA [id number] [address] [place] [address] [place] WBC (Bld) [#/Vol] 7.23 10*3/uL Normal 3.70-11.00 [facility] Comment on above: Order Comment: Speci men Type: BLOOD SPECIMEN Ordering Facility: [facility] Address: [address] [place] [address] Performed By: #### 5 8410-2 #### [facility] CLIA [id number] [address] [place] [address] [place] Comprehensive metabolic 2000 panelon 01-09-2025 Albumin [Mass/Vol] 4.3 g/dL Normal 3.9-4.9 [facility] Comment on above: Order Comment: Speci men Type: BLOOD SPECIMEN Ordering Facility: [facility] Address: [address] [place] [address] Performed By: #### 2 4323-8 #### [facility] CLIA [id number] [address] [place] [address] [place] ALP [Catalytic activity/Vol] 53 U/L Normal 34-123 [facility] Comment on above: Order Comment: Speci men Type: BLOOD SPECIMEN Ordering Facility: [facility] Address: [address] [place] [address] Performed By: #### 2 4323-8 #### [facility] CLIA [id number] [address] [place] [address] [place] ALT [Catalytic activity/Vol] 16 U/L Normal 7-38 [facility] Comment on above: Order Comment: Speci men Type: BLOOD SPECIMEN Ordering Facility: [facility] Address: [address] [place] [address] Performed By: #### 2 4323-8 #### [facility] CLIA [id number] [address] [place] [address] [place] Anion gap [Moles/Vol] 14 mmol/L Normal 8-15 [facility] Comment on above: Order Comment: Speci men Type: BLOOD SPECIMEN Ordering Facility: [facility] Address: [address] [place], [place] [address] Performed By: #### 2 4323-8 #### [facility] CLIA [id number] [address] [place], [place] [address] [place] AST [Catalytic activity/Vol] 24 U/L Normal 13-35 [facility] Comment on above: Order Comment: Speci men Type: BLOOD SPECIMEN Ordering Facility: [facility] Address: [address] [place], [place] [address] Performed By: #### 2 4323-8 #### [facility] CLIA [id number] [address] [place] [address] [place] Bilirubin [Mass/Vol] 0.4 mg/dL Normal 0.2-1.3 [facility] Comment on above: Order Comment: Speci men Type: BLOOD SPECIMEN Ordering Facility: [facility] Address: [address] [place], [place] [address] Performed By: #### 2 4323-8 #### [facility] CLIA [id number] [address] [place] [address] [place] Calcium [Mass/Vol] 9.7 mg/dL Normal 8.5-10.2 [facility] Comment on above: Order Comment: Speci men Type: BLOOD SPECIMEN Ordering Facility: [facility] Address: [address] [place], [place] [address] Performed By: #### 2 4323-8 #### [facility] CLIA [id number] [address] [place] [address] [place] Chloride [Moles/Vol] 102 mmol/L Normal 98-107 [facility] Comment on above: Order Comment: Speci men Type: BLOOD SPECIMEN Ordering Facility: [facility] Address: [address] [place], [place] [address] Performed By: #### 2 4323-8 #### [facility] CLIA [id number] [facility] [place] [address] [place] CO2 [Moles/Vol] 23 mmol/L Normal 22-30 [facility] Comment on above: Order Comment: Speci men Type: BLOOD SPECIMEN Ordering Facility: [facility] Address: [address] [place] [address] Performed By: #### 2 4323-8 #### [facility] CLIA [id number] [address] [place] [address] [place] Creatinine [Mass/Vol] 0.87 mg/dL Normal 0.58-0.96 [facility] Comment on above: Order Comment: Speci men Type: BLOOD SPECIMEN Ordering Facility: [facility] Address: [address] [place] [address] Performed By: #### 2 4323-8 #### [facility] CLIA [id number] [address] [place] [address] [place] eGFRcr SerPlBld CKD-EPI 2020 86 mL/min/1.73m??? Normal >=60 [facility] Comment on above: Order Comment: Speci men Type: BLOOD SPECIMEN Ordering Facility: [facility] Address: [address] [place] [address] Result Comment: Andree mated Glomerular Filtration Rate (eGFR) is calculated using the 2020 CKD-EPI creatinine equation. This equation utilizes serum creatinine, sex, and age as parameters. The creatinine assay has traceable calibration to isotope dilution-mass spectrometry. Refer to KDIGO guidelines for clinical interpretation. In patients with unstable renal function, e.g. those with acute kidney injury, the eGFR may not accurately reflect actual GFR. Performed By: #### 2 4323-8 #### [facility] CLIA [id number] [address] [place], [place] [address] [place] Glucose [Mass/Vol] 79 mg/dL Normal 74-99 [facility] Comment on above: Order Comment: Speci men Type: BLOOD SPECIMEN Ordering Facility: [facility] Address: [address] [place] [address] Result Comment: The [employer] (ADA) provides guidance for cutoff values for fasting glucose and random glucose. The ADA defines fasting as no caloric intake for at least 8 hours. Fasting plasma glucose results between 100 to 125 mg/dL indicate increased risk for diabetes (prediabetes). Fasting plasma glucose results greater than or equal to 126 mg/dL meet the criteria for diagnosis of diabetes. In the absence of unequivocal hyperglycemia, results should be confirmed by repeat testing. In a patient with classic symptoms of hyperglycemia or hyperglycemic crisis, random plasma glucose results greater than or equal to 200 mg/dL meet the criteria for diagnosis of diabetes. Reference: Standards of Medical Care in Diabetes 2016, [employer]. Diabetes Care. 2016.39(Suppl 1). Performed By: #### 2 4323-8 #### [facility] CLIA [id number] [address] [place] [address] [place] Potassium [Moles/Vol] 4.2 mmol/L Normal 3.7-5.1 [facility] Comment on above: Order Comment: Bradley men Type: BLOOD SPECIMEN Ordering Facility: [facility] Address: [address] [place] [address] Performed By: #### 2 4323-8 #### [facility] CLIA [id number] [address] [place] [address] [place] Protein [Mass/Vol] 7.1 g/dL Normal 6.3-8.0 [facility] Comment on above: Order Comment: Mistyi men Type: BLOOD SPECIMEN Ordering Facility: [facility] Address: [address] [place] [address] Performed By: #### 2 4323-8 #### [facility] CLIA [id number] [address] [place] [address] [place] Sodium [Moles/Vol] 139 mmol/L Normal 136-144 [facility] Comment on above: Order Comment: Mistyi men Type: BLOOD SPECIMEN Ordering Facility: [facility] Address: [address] [place], [place] [address] Performed By: #### 2 4323-8 #### [facility] CLIA [id number] [address] [place] [address] [place] Urea nitrogen [Mass/Vol] 15 mg/dL Normal 7-21 [facility] Comment on above: Order Comment: Speci men Type: BLOOD SPECIMEN Ordering Facility: [facility] Address: [address] [place] [address] Performed By: #### 2 4323-8 #### [facility] CLIA [id number] [address] [place] [address] [place] LACOSAMIDEon 01-09-2025 Lacosamide [Mass/Vol] 6.3 ug/mL Normal 2.2-19.8 [facility] Comment on above: Order Comment: Speci men Type: BLOOD SPECIMEN Ordering Facility: [facility] Address: [address] [place] [address] Result Comment: Expe cted concentration of patients receiving 200-400 mg/day is 2.2-19.8 ug/mL for Lacosamide. This test was developed, and its performance characteristics determined by the [facility] Department of Pathology and Laboratory Medicine. It has not been cleared or approved by the FDA. The [facility] Department of Pathology and Laboratory Medicine is regulated under CLIA as qualified to perform high-complexity testing. This test is used for clinical purposes. It should not be regarded as investigational or for research. Performed By: #### 2 4323-8, 3040-3 #### [facility] CLIA [id number] [address] [place], [place] [address] [place] levETIRAcetam SerPl-mCncon 0 01-09-2025 levETIRAcetam [Mass/Vol] 19.5 ug/mL Normal 12.0-46.0 [facility] Comment on above: Order Comment: Speci men Type: BLOOD SPECIMEN Ordering Facility: [facility] Address: [address] [place] [address] Result Comment: This test is not suitable for patients receiving treatment with the drug brivaracetam (Briviact). The drug causes an interference that may lead to falsely elevated levetiracetam results. Reference ranges and high/low indicator flags are provided as general guidelines only. The treating physician must determine appropriate target levels/dosing based on the specific clinical situation. This test was developed, and its performance characteristics determined by the [facility] Department of Pathology and Laboratory Medicine. It has not been cleared or approved by the FDA. The [facility] Department of Pathology and Laboratory Medicine is regulated under CLIA as qualified to perform high-complexity testing. This test is used for clinical purposes. It should not be regarded as investigational or for research. Performed By: #### 3 0471-7 #### [facility] CLIA [id number] [address] [place], [place] [address] [facility] CNOVon 01-08-2025 CNOV Office Visit (OBGYWM ) YAMIL NG Ludy ([id number]) 1985 F Date Time Provider Department 01/08/25 3:15 PM PREET VALENTE During your visit today, we recorded the following information about you: Blood pressure Weight Height 104/60 69.4 kg 1.613 m Preet Valente APRN.CNP 01/08/2025 3:38 PM Signed Accounts Receivable Executive offered: Patient declines. Yamil is a 39 year old who presents for an annual gynecologic exam without complaints. Had complications after hysterectomy last year - had cuff hematoma and cuff repair. No concerns now. 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 Carrier History LMP: 07/17/2023 (Exact Date), Hysterectomy Age at Menarche: 10 Age at First : Age at Menopause: Mending Carrier History Comments: Sexual Activity: Yes; Male; hyst Contraception: Surgical, Vasectomy, Tubal Ligation PAST MEDICAL HISTORY Diagnosis Date Anemia Complication of anesthesia nausea and vomiting Episode of recurrent major depressive disorder 08/28/2018 Family history of epilepsy aunt Hepatic hemangioma 01/20/2024 Hepatitis in viral diseases classified elsewhere(573.1) when she had mono Ovarian cyst 2004 [facility] - PAST MEDICAL HISTORY OF Right Sciatica Seizure disorder (HCC) 02/04/2018 Vaginal hematoma PAST SURGICAL HISTORY Procedure Laterality Date DELIVERY ONLY , low cervical x4 DELIVERY ONLY 10/14/2016 COLPOSCOPY CERVIX VAG LOOP ELTRD BX CERVIX 2020 EXCISION GANGLION WRIST DORSAL/VOLAR PRIMARY Right HYSTEROSCOPY ENDOMETRIAL ABLATION N/A 02/28/2023 KNEE SURGERY HX Right shaved patella and removed fat pad LAP HYSTERECTOMY FOR UTERUS 250G OR LESS 09/04/2023 LIG/TRNSXJ FLP TUBE ABDL/VAG APPR UNI/BI Bilateral 10/14/2016 VAGINAL CUFF REPAIR 09/22/2023 exam under anesthesia, pelvic irrigation and insertion of intraabdominal drain FAMILY HISTORY Problem Relation Age of Onset Hypertension Father Diabetes Father Hyperlipidemia Father Cataract Father other (Diverticulosis) Father other (FIBROMYALGIA) Sister Pancreatitis Sister Cancer Maternal Grandmother Breast Cancer Paternal Grandmother Heart Paternal Grandmother Stroke Paternal Grandfather Diabetes Maternal Aunt Anesthesia Problems No Family History Clotting Disorder No Family History Malig Hyperthermia No Family History Colon Cancer No Family History SOCIAL HISTORY Social History Tobacco Use Smoking status: Never Smokeless tobacco: Never Vaping Use Vaping status: Never Used Substance Use Topics Alcohol use: Yes Comment: occasional Drug use: No REVIEW OF SYSTEMS Abdomen: No abdominal pain, nausea, vomiting, diarrhea, or constipation. No bloating, early satiety, indigestion, or increased flatulence. Bladder: No dysuria, gross hematuria, urinary frequency, urinary urgency, or incontinence. Breast: No breast lumps, nipple d/c, overlying skin changes, redness or skin retraction. Allergies and current medication updated:Yes SENSITIVE EXAM: The sensitive examination was discussed with the Patient or Patient's Authorized Iron Erector. As applicable, any other physician, advance practice provider, medical student, or other health professional student that will be observing or involved in the sensitive examination for educational or training purposes was discussed with the Patient or Authorized Iron Erector. The Patient or Authorized Iron Erector has agreed to proceed with the sensitive examination. (Sensitive examination includes inspection and/or palpation of the breasts, pelvis, prostate and anorectal regions). EXAM: BP 104/60 Ht 5' 3.504 (1.61m) Wt 153 lb (69.4kg) LMP 07/17/2023 BMI 26.67 kg/(m2). GENERAL: pleasant, female in no apparent distress HEENT: Normocephalic, atraumatic, mucus membranes moist, and no lesions NECK: Supple, full range of motion, no adenopathy, and thyroid normal DERMATOLOGY: Normal, without lesions, non-icteric, and non-hirsute BREAST: soft, non-tender, symmetric, no dominant mass, normal nipple-areolar complex, no lymphadenopathy, and no nipple discharge CHEST: Normal inspiratory effort ABDOMEN: soft, non-tender, and no masses PELVIC: external genitalia normal, normal Bartholin's glands, urethra, [place]'s glands, no vulvar lesions, good vaginal support, physiologic discharge present, normal appearing perineal body and perianal region, cervix surgically absent, v (more content not included)... Normal [facility] 01-07-2025 [facility] [place] Telephone (NIQ) YAMIL NG ([id number]) 1985 F Date Time Provider Department 01/07/25 PANDA MARINELLI NIQ During your visit today, we recorded the following information about you: Waylon Contreras 01/07/2025 11:21 AM Signed AEEG orders were sent to Kathleen. Waylon Contreras Allergies As of Date: 01/07/2025 Noted Allergy Reaction BLEACH (SODIUM HYPOCHLORITE) 03/22/2016 2 - Rash LAMICTAL (LAMOTRIGINE) 06/16/2018 2 - Rash PINE TREES (TREES) 03/22/2016 2 - Rash 4 - Hives TOPIRAMATE 06/07/2023 2 - Rash TREE AND SHRUB POLLEN 09/22/2023 16 - Unknown Date Reviewed: 01/05/2025 Reviewed by: Ilana Dickens PA-C - Fully Assessed Reason for Visit: Orders [[id number]] Cmt: Kathleen Prescriptions as of 01/07/2025 - lacosamide (VIMPAT) 150 mg tab Take 1 tablet by mouth two times a day for 180 days. - levETIRAcetam (KEPPRA) 1,000 mg tablet Take 1 tablet by mouth two times a day. - ondansetron orally disintegrating (ZOFRAN ODT) 4 mg disintegrating tablet dissolve one tablet on the tongue every 8 hours as needed for nausea - pantoprazole DR (PROTONIX) 40 mg tablet Take 1 tablet by mouth two times a day. - sucralfate (CARAFATE) 1 gram tablet Take 1 tablet by mouth four times daily. - hydrOXYzine HCl (ATARAX) 25 mg tablet Take 1-2 tablets by mouth at bedtime. Can cause drowsiness. - clobetasol (TEMOVATE) 0.05 % cream Apply to affected area twice daily Saturday-Saturday. Take weekends off. Do not use on face, armpits, neck, or groin. - Clobetasol Propionate (TEMOVATE) 0.05 % external solution Apply to affected areas on scalp twice daily Saturday-Saturday, take weekends off. May repeat as needed. - triamcinolone acetonide (KENALOG) 0.1 % cream Apply to affected areas twice daily for 2 weeks. - rizatriptan (MAXALT) 10 mg tablet Take 1 tablet (10 mg) by mouth as needed (at onset of headache. May repeat after 2 hours.). Do not exceed 30 mg per day. - topiramate (TOPAMAX) 25 mg tablet (Discontinued) Take by mouth. One tablet twice daily for a week; then two tablets twice daily thereafter. 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] 03/12/2018 Medication side effect [T88.7XXA] 03/12/2018 04/24/2019 Encounter for monitoring anticonvulsant therapy*03/12/2018 Vitamin D deficiency [E55.9] 06/15/2018 URI (obstructive sleep apnea) [G47.33] 08/28/2018 Anxiety [F41.9] 08/28/2018 Episode of recurrent major depressive disorder *08/28/2018 Splenomegaly [R16.1] 03/20/2019 Anemia [D64.9] 03/20/2019 Ganglion cyst of wrist, right [M67.431] 04/24/2019 Acute pain of right knee [M25.561] 09/20/2020 Plica of knee, right [M67.51] 02/20/2021 02/20/2021 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 GERD (gastroesophageal reflux disease) [K21.9] 02/13/2023 Menorrhagia with irregular cycle [N92.1] 02/28/2023 Unable to empty bladder [R33.9] 07/16/2024 Encounter Status:Closed by WAYLON CONTRERAS on 01/07/25 Normal [facility] CNOVon 01-05-2025 CNOV Office Visit (ORMDNA ) YAMIL NG ([id number]) 1985 F Date Time Provider Department 01/05/25 3:30 PM ILANA DICKENS During your visit today, we recorded the following information about you: Ilana Dickens PA-C 01/11/2025 7:54 AM Signed Ilana Dickens PA-C Department of Orthopaedics Orth[facility] [address] [id number] Dept: [phone] January 05, 2025 SUBJECTIVE: CHIEF COMPLAINT: Knee Pain and Established Patient of the Right Knee HPI: Yamil Boston Hernandez is a 39-year-old female with a history of knee surgery, presenting for evaluation of worsening right knee pain. Right Knee Pain: - Worsening over time, no recent injury. - Pain rated 2/10 at rest. - Aggravated by movement, especially descending stairs and bending the knee. - Describes a popping sensation, but denies locking or getting physically stuck. - Able to bend the knee fully, but with pain. - No current medication use for pain. - No new numbness or paresthesia down the leg. - History of one injection prior to first knee surgery (plica excision in 2020). Past Medical History: PAST MEDICAL HISTORY Diagnosis Date Anemia Complication of anesthesia nausea and vomiting Episode of recurrent major depressive disorder 08/28/2018 Family history of epilepsy aunt Hepatic hemangioma 01/20/2024 Hepatitis in viral diseases classified elsewhere(573.1) when she had mono PMH - PAST MEDICAL HISTORY OF Right Sciatica Seizure disorder (HCC) 02/04/2018 Past Surgical History: PAST SURGICAL HISTORY Procedure Laterality Date DELIVERY ONLY , low cervical x4 DELIVERY ONLY 10/14/2016 EXCISION GANGLION WRIST DORSAL/VOLAR PRIMARY Right HYSTEROSCOPY ENDOMETRIAL ABLATION N/A 02/28/2023 KNEE SURGERY HX Right shaved patella and removed fat pad LAP HYSTERECTOMY FOR UTERUS 250G OR LESS 09/04/2023 LIG/TRNSXJ FLP TUBE ABDL/VAG APPR UNI/BI Bilateral 10/14/2016 VAGINAL CUFF REPAIR 09/22/2023 exam under anesthesia, pelvic irrigation and insertion of intraabdominal drain Family History: FAMILY HISTORY Problem Relation Age of Onset Hypertension Father Diabetes Father Hyperlipidemia Father Cataract Father other (Diverticulosis) Father other (FIBROMYALGIA) Sister Pancreatitis Sister Cancer Maternal Grandmother Breast Cancer Paternal Grandmother Heart Paternal Grandmother Stroke Paternal Grandfather Diabetes Maternal Aunt Anesthesia Problems No Family History Clotting Disorder No Family History Malig Hyperthermia No Family History Colon Cancer No Family History Social History: Social History Tobacco Use Smoking status: Never Smokeless tobacco: Never Vaping Use Vaping status: Never Used Substance Use Topics Alcohol use: Yes Comment: occasional Drug use: No Medications: Current Outpatient Medications Medication Sig lacosamide (VIMPAT) 150 mg tab Take 1 tablet by mouth two times a day for 180 days. levETIRAcetam (KEPPRA) 1,000 mg tablet Take 1 tablet by mouth two times a day. ondansetron orally disintegrating (ZOFRAN ODT) 4 mg disintegrating tablet dissolve one tablet on the tongue every 8 hours as needed for nausea pantoprazole DR (PROTONIX) 40 mg tablet Take 1 tablet by mouth two times a day. sucralfate (CARAFATE) 1 gram tablet Take 1 tablet by mouth four times daily. hydrOXYzine HCl (ATARAX) 25 mg tablet Take 1-2 tablets by mouth at bedtime. Can cause drowsiness. clobetasol (TEMOVATE) 0.05 % cream Apply to affected area twice daily Saturday-Saturday. Take weekends off. Do not use on face, armpits, neck, or groin. Clobetasol Propionate (TEMOVATE) 0.05 % external solution Apply to affected areas on scalp twice daily Saturday-Saturday, take weekends off. May repeat as needed. triamcinolone acetonide (KENALOG) 0.1 % cream Apply to affected areas twice daily for 2 weeks. rizatriptan (MAXALT) 10 mg tablet Take 1 tablet (10 mg) by mouth as needed (at onset of headache. May repeat after 2 hours.). Do not exceed 30 mg per day. No current facility-administered medications for this visit. Allergies: Bleach (Sodium Hypochlorite), Lamictal [Lamotrigine], [place] [Trees], Topiramate, and Tree And Shrub Pollen ROS: General: negative for fatigue, malaise, weight loss/gain Musculoskeletal: see HPI Psych: no depression, anxiety OBJECTIVE: Ms. Yamil Ng is a pleasant 39 year old in no apparent distress. Gen:LMP 07/17/2023 nl development, non obese, no deformities ENT: Normocephalic, normal hearing, moist mucosa CV: Pulses:DP/PT= 2+ and symmetric, capillary refill < 2 secs, no peripheral edema/varicosities Skin: no rash, bruising or lesions. Good turgor. Psych: cooperative and appropriate, alert and oriented x 3, good mood and affect. Musculoskeletal: Left knee, bilateral hips and ankles FROM without pain or limitation. (more content not included)... Normal [facility] Large Joint Arthro/Inj: R kn ee jointon 01-05-2025 Ilana Dickens PA-C 01/11/2025 7:54 AM Large Joint Arthro/Inj: R knee joint 01/05/2025 4:22 PM The procedure site was prepped in the usual sterile fashion. Site: R knee joint Medications: 12 mg betamethasone acetate-betamethasone sodium phosphate 6 mg/mL Anesthetics: 3 mL lidocaine (PF) 10 mg/mL (1 %) Outcome: Tolerated well, no immediate complications Post-injection instructions were reviewed with the patient and the patient voiced understanding of these instructions. Informed Consent Consent Obtained: Verbal [place] Protocol A moment to CARE was completed. SIGN IN Personnel directly involved with the procedure wore the appropriate PPE. Special Equipment: N/A Patient/Surrogate Stated/Verified: Patient name, Date of , Relevant allergies and Intended procedure TIME OUT Relevant labs, photos, and/or imaging studies have been reviewed. Consent documented and matches the intended procedure. Correct side/site marked and visible. Medications required for procedure verified. No fire risk assessment and interventions applicable. No implant(s) inserted. [facility] XR KNEE 4V AP/PA BOTH+LAT/ME R RTon 01-05-2025 XR KNEE 4V AP/PA BOTH+LAT/BISI RT * * *Final Report* * * DATE OF EXAM: Jan 05 2025 3:30PM ZARINA [id number] - XR KNEE 4V AP/PA BOTH+LAT/BISI RT / PROCEDURE REASON: M25.561-Right knee pain, unspecified chronicity * * * * Physician Interpretation * * * * PROCEDURE: Right knee INDICATION: Right knee pain, unspecified chronicity .right knee pain TECHNIQUE: XR KNEE 4V AP/PA BOTH+LAT/BISI RT COMPARISON: 02/08/2024 FINDINGS: No fractures or dislocations are seen. No significant joint effusion or joint body is evident. The joint spaces are maintained without evidence for significant degenerative or arthritic change. IMPRESSION: Negative. Binitrotoluene Operator: PSCB Transcribe Date/Time: Jan 10 2025 4:25P Dictated by : MARCIE WYNN MD This examination was interpreted and the report reviewed and electronically signed by: MARCIE WYNN MD on Jan 10 2025 4:25PM EST [id number] [facility] 12-23-2024 [facility] [place] Telephone ([id number]) YAMIL NG ([id number]) 1985 F Date Time Provider Department 12/23/24 PANDA MARINELLI NE50MN During your visit today, we recorded the following information about you: Marine Danielle 12/23/2024 4:30 PM Signed General call : Full name of person calling: Yamil Ng Relationship to patient: self Phone # : [phone] (home) Reason for call: Patient feels as if brain and speech don't match. Also, she reports feeling as if steps are off. Patient of Tala Dangelo, RN 12/24/2024 9:29 AM Signed Attempted to reach patient. Message left to call the office back at [phone] with best time and number to reach her. I will try to reach her again later. Tala Dumont, RN 12/24/2024 1:33 PM Signed Attempted to reach Yamil again at [phone]. Allergies As of Date: 12/23/2024 Noted Allergy Reaction BLEACH (SODIUM HYPOCHLORITE) 03/22/2016 2 - Rash LAMICTAL (LAMOTRIGINE) 06/16/2018 2 - Rash PINE TREES (TREES) 03/22/2016 2 - Rash 4 - Hives TOPIRAMATE 06/07/2023 2 - Rash TREE AND SHRUB POLLEN 09/22/2023 16 - Unknown Date Reviewed: 12/17/2024 Reviewed by: Miracle Dodge LPN - Fully Assessed Reason for Visit: Other [Other] Cmt: Speech issues and feeling as if steps are off Prescriptions as of 12/28/2024 - ondansetron orally disintegrating (ZOFRAN ODT) 4 mg disintegrating tablet dissolve one tablet on the tongue every 8 hours as needed for nausea - pantoprazole DR (PROTONIX) 40 mg tablet Take 1 tablet by mouth two times a day. - sucralfate (CARAFATE) 1 gram tablet Take 1 tablet by mouth four times daily. - hydrOXYzine HCl (ATARAX) 25 mg tablet Take 1-2 tablets by mouth at bedtime. Can cause drowsiness. - clobetasol (TEMOVATE) 0.05 % cream Apply to affected area twice daily Saturday-Saturday. Take weekends off. Do not use on face, armpits, neck, or groin. - Clobetasol Propionate (TEMOVATE) 0.05 % external solution Apply to affected areas on scalp twice daily Saturday-Saturday, take weekends off. May repeat as needed. - triamcinolone acetonide (KENALOG) 0.1 % cream Apply to affected areas twice daily for 2 weeks. - lacosamide (VIMPAT) 150 mg tab Take 1 tablet by mouth two times a day for 180 days. - levETIRAcetam (KEPPRA) 1,000 mg tablet Take 1 tablet by mouth two times a day. - rizatriptan (MAXALT) 10 mg tablet Take 1 tablet (10 mg) by mouth as needed (at onset of headache. May repeat after 2 hours.). Do not exceed 30 mg per day. - topiramate (TOPAMAX) 25 mg tablet (Discontinued) Take by mouth. One tablet twice daily for a week; then two tablets twice daily thereafter. 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] 03/12/2018 Medication side effect [T88.7XXA] 03/12/2018 04/24/2019 Encounter for monitoring anticonvulsant therapy*03/12/2018 Vitamin D deficiency [E55.9] 06/15/2018 URI (obstructive sleep apnea) [G47.33] 08/28/2018 Anxiety [F41.9] 08/28/2018 Episode of recurrent major depressive disorder *08/28/2018 Splenomegaly [R16.1] 03/20/2019 Anemia [D64.9] 03/20/2019 Ganglion cyst of wrist, right [M67.431] 04/24/2019 Acute pain of right knee [M25.561] 09/20/2020 Plica of knee, right [M67.51] 02/20/2021 02/20/2021 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 GERD (gastroesophageal reflux disease) [K21.9] 02/13/2023 Menorrhagia with irregular cycle [N92.1] 02/28/2023 Unable to empty bladder [R33.9] 07/16/2024 Encounter Status:Closed by GEORGINA ARCHIBALD on 12/28/24 [facility] CNOVon 12-17-2024 CN Office Visit (UCWSTR ) YAMIL NG ([id number]) 1985 F Date Time Provider Department 12/17/24 9:15 AM KRISTEN ABREU [facility] During your visit today, we recorded the following information about you: Temperature Pulse Respiration Blood pressure 99.1 degrees 97/minute 20/minute 117/82 Weight 68 kg Kristen Abreu APRN.CNP 12/17/2024 9:25 AM Signed - Take amoxicillin twice daily for 10 days as prescribed. - Replace your toothbrush 24 hours after starting antibiotics to help prevent reinfection. - Strep throat is contagious; stay home and avoid close contact with others until you?ve been on antibiotics for at least 24 hours. - Follow up with your primary care doctor if your symptoms worsen, do not improve, or you develop new concerns. - A work note has been provided for today and tomorrow; please give this to your employer as needed. Kristen Abreu APRN.CNP 12/17/2024 9:50 AM Signed [facility] Subjective Yamil Boston Hernandez is a 39 year old female. Patient presents with: Sore Throat: Fever, body aches, headache x 7 hours Sore Throat Acute Viral Syndrome: - Onset of body aches and fever at 0200 this morning. - Mild cough. - Denies nausea, emesis, diarrhea, or skin rash. - Has not taken any medications today. - Works at [employer]; requests a work note for today and tomorrow. Epilepsy: - Managed with Keppra. Eczema: - Managed with topical creams and shampoos. Tobacco Use: - Current smoker. PAST MEDICAL HISTORY Diagnosis Date Anemia Complication of anesthesia nausea and vomiting Episode of recurrent major depressive disorder 08/28/2018 Family history of epilepsy aunt Hepatic hemangioma 01/20/2024 Hepatitis in viral diseases classified elsewhere(573.1) when she had mono PMH - PAST MEDICAL HISTORY OF Right Sciatica Seizure disorder (HCC) 02/04/2018 PAST SURGICAL HISTORY Procedure Laterality Date DELIVERY ONLY , low cervical x4 DELIVERY ONLY 10/14/2016 EXCISION GANGLION WRIST DORSAL/VOLAR PRIMARY Right HYSTEROSCOPY ENDOMETRIAL ABLATION N/A 02/28/2023 KNEE SURGERY HX Right shaved patella and removed fat pad LAP HYSTERECTOMY FOR UTERUS 250G OR LESS 09/04/2023 LIG/TRNSXJ FLP TUBE ABDL/VAG APPR UNI/BI Bilateral 10/14/2016 VAGINAL CUFF REPAIR 09/22/2023 exam under anesthesia, pelvic irrigation and insertion of intraabdominal drain ALLERGIES Bleach (Sodium Hypochlorite), Lamictal [Lamotrigine], [place] Trees [Trees], Topiramate, and Tree And Shrub Pollen MEDICATIONS ondansetron orally disintegrating (ZOFRAN ODT) 4 mg disintegrating tablet dissolve one tablet on the tongue every 8 hours as needed for nausea pantoprazole DR (PROTONIX) 40 mg tablet Take 1 tablet by mouth two times a day. sucralfate (CARAFATE) 1 gram tablet Take 1 tablet by mouth four times daily. hydrOXYzine HCl (ATARAX) 25 mg tablet Take 1-2 tablets by mouth at bedtime. Can cause drowsiness. clobetasol (TEMOVATE) 0.05 % cream Apply to affected area twice daily Saturday-Saturday. Take weekends off. Do not use on face, armpits, neck, or groin. Clobetasol Propionate (TEMOVATE) 0.05 % external solution Apply to affected areas on scalp twice daily Saturday-Saturday, take weekends off. May repeat as needed. triamcinolone acetonide (KENALOG) 0.1 % cream Apply to affected areas twice daily for 2 weeks. lacosamide (VIMPAT) 150 mg tab Take 1 tablet by mouth two times a day for 180 days. levETIRAcetam (KEPPRA) 1,000 mg tablet Take 1 tablet by mouth two times a day. rizatriptan (MAXALT) 10 mg tablet Take 1 tablet (10 mg) by mouth as needed (at onset of headache. May repeat after 2 hours.). Do not exceed 30 mg per day. amoxicillin (AMOXIL) 500 mg capsule Take 1 capsule by mouth two times a day for 10 days. [DISCONTINUED] topiramate (TOPAMAX) 25 mg tablet Take by mouth. One tablet twice daily for a week; then two tablets twice daily thereafter. FAMILY HISTORY Problem Relation Age of Onset Hypertension Father Diabetes Father Hyperlipidemia Father Cataract Father other (Diverticulosis) Father other (FIBROMYALGIA) Sister Pancreatitis Sister Cancer Maternal Grandmother Breast Cancer Paternal Grandmother Heart Paternal Grandmother Stroke Paternal Grandfather Diabetes Maternal Aunt Anesthesia Problems No Family History Clotting Disorder No Family History Malig Hyperthermia No Family History Colon Cancer No Family History Social History Tobacco Use Smoking status: Never Smokeless tobacco: Never Vaping Use Vaping status: Never Used Substance Use Topics Alcohol use: Yes Comment: occasional Drug use: No Review of Systems HENT: Positive for sore throat. Constitutional: (+) body aches, (+) fever Respiratory: (+) cough Skin: (-) rash, (-) skin lesions Objective BP 117/82 Pulse 97 Temp 37.3 ?C (99.1 ?F) Resp 20 Wt 68 kg (149 lb 14 (more content not included)... Normal [facility] STREP A MOLECULAR (POC)on Interpretation and review of laboratory results Abnormal [facility] Procedural Control Valid [facility] Strep A (POCT) Positive Abnormal Negative [facility] CNCOon 11-06-2024 CNCO Letter Text Normal [facility] CNOVon 11-06-2024 CNOV Office Visit (GSTNOR ) YAMIL NG ([id number]) 1985 F Date Time Provider Department 11/06/24 2:15 PM DOMITILA GALICIA During your visit today, we recorded the following information about you: Pulse Blood pressure Weight Height 63/minute 110/68 68.5 kg 1.6 m Domitila Galicia APRN.BHARAT 11/06/2024 2:45 PM Signed CHIEF COMPLAINT: Nausea, abdominal pain This consult was requested by PodlogCristy lovett APRN.C* for an opinion regarding nausea/ vomiting/ GI upset. My final recommendations will be communicated to the requesting health care provider by way of the shared medical record for internal providers or letter via the [employer] for external providers. HPI: Yamil Ng is a 39-year-old female with a history of epilepsy, presenting with chronic nausea, decrease appetite, and abdominal pain. Presents with her significant other. Patient reports experiencing nausea for most of her life, but notes a significant worsening over the past six months. The nausea has become so severe that she often avoids eating all together. She was previously taking Zofran for nausea, but it stopped being effective about six months ago. She is currently taking Carafate, which she finds moderately effective when taken as prescribed, 4 times a day before meals. However, if she forgets to take it or eats without taking it, she experiences severe abdominal pain, and nausea. She also takes omeprazole 40 mg twice daily for acid reflux, but reports that it is not fully controlling her symptoms. She has tried adjusting the dosage to once daily in the evening, which provided temporary relief, but this strategy has recently become ineffective. She has never been on another PPI. Patient also reports chronic constipation, with bowel movements occurring every 4-5 days. She occasionally uses Miralax for relief and has recently started taking Fiber gummies, which have helped but sometimes result in diarrhea. She experiences bloating and distension, and her appetite is significantly reduced due to the nausea. She notes that her nausea worsens after meals and if she does not eat during her work shift from 06:00 to 14:00. 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 She finds that the longer she goes without eating, the better her nausea and abdominal pain become. Patient has a history of epilepsy, which is currently well-controlled with medication. She has not had a seizure in about seven months. She takes her epilepsy medication at 09:30 daily. Past Diagnostic Results: - Abdominal X-ray: Revealed a moderate amount of stool burden, indicating constipation. Record Review: [facility] / Outside records reviewed. PAST MEDICAL HISTORY Diagnosis Date Anemia Complication of anesthesia nausea and vomiting Episode of recurrent major depressive disorder 08/28/2018 Family history of epilepsy aunt Hepatic hemangioma 01/20/2024 Hepatitis in viral diseases classified elsewhere(573.1) when she had mono PMH - PAST MEDICAL HISTORY OF Right Sciatica Seizure disorder (HCC) 02/04/2018 PAST SURGICAL HISTORY Procedure Laterality Date DELIVERY ONLY , low cervical x4 DELIVERY ONLY 10/14/2016 EXCISION GANGLION WRIST DORSAL/VOLAR PRIMARY Right HYSTEROSCOPY ENDOMETRIAL ABLATION N/A 02/28/2023 KNEE SURGERY HX Right shaved patella and removed fat pad LAP HYSTERECTOMY FOR UTERUS 250G OR LESS 09/04/2023 LIG/TRNSXJ FLP TUBE ABDL/VAG APPR UNI/BI Bilateral 10/14/2016 VAGINAL CUFF REPAIR 09/22/2023 exam under anesthesia, pelvic irrigation and insertion of intraabdominal drain Allergies: ALLERGIES Allergen Reactions Bleach (Sodium Hypo* Rash Lamictal [Lamotrigi* Rash [place] [Trees] Rash, Hives Topiramate Rash Tree And Shrub Poll* Unknown Medications: ondansetron orally disintegrating (ZOFRAN ODT) 4 mg disintegrating tablet dissolve one tablet on the tongue every 8 hours as needed for nausea sucralfate (CARAFATE) 1 gram tablet Take 1 tablet by mouth four times daily. hydrOXYzine HCl (ATARAX) 25 mg tablet Take 1-2 tablets by mouth at bedtime. Can cause drowsiness. clobetasol (TEMOVATE) 0.05 % cream Apply to affected area twice daily Saturday-Saturday. Take weekends off. Do not use on face, armpits, neck, or groin. Clobetasol Propionate (TEMOVATE) 0.05 % external solution Apply to affected areas on scalp twice daily Saturday-Saturday, take weekends off. May repeat as needed. triamcinolone acetonide (KENALOG) 0.1 % cream Apply to affected areas twice daily for 2 weeks. lacosamide (VIMPAT) 150 mg tab Take 1 tablet by mouth two times a day for 180 days. levETIRAcetam (KEPPRA) 1,000 mg tablet Take 1 tablet by mouth two times a day. rizatriptan (MAXALT) 10 mg tablet Take 1 tablet (10 mg) (more content not included)... Normal [facility] YAMIL NG ([id number]) 1985 F Date Time Provider Department 11/06/24 DOMITILA GALICIA During your visit today, we recorded the following information about you: Allergies As of Date: 11/06/2024 Noted Allergy Reaction BLEACH (SODIUM HYPOCHLORITE) 03/22/2016 2 - Rash LAMICTAL (LAMOTRIGINE) 06/16/2018 2 - Rash PINE TREES (TREES) 03/22/2016 2 - Rash 4 - Hives TOPIRAMATE 06/07/2023 2 - Rash TREE AND SHRUB POLLEN 09/22/2023 16 - Unknown Date Reviewed: 11/06/2024 Reviewed by: Adriana Smith MA - Fully Assessed Prescriptions as of 11/06/2024 - ondansetron orally disintegrating (ZOFRAN ODT) 4 mg disintegrating tablet dissolve one tablet on the tongue every 8 hours as needed for nausea - pantoprazole DR (PROTONIX) 40 mg tablet Take 1 tablet by mouth two times a day. - sod sulf-pot chloride-mag sulf (SUTAB) 1.479-0.188- 0.225 gram tab Take 12 tablets by mouth as directed for 2 days. Follow instructions that have been given to you by your provider's office. (Part 1, take 12 tablets. Part 2, take 12 tablets). - peg 3350-Electrolytes (GOLYTELY) 236-22.74-6.74 -5.86 gram suspension Take 4,000 mL by mouth one time only for 1 dose. - sucralfate (CARAFATE) 1 gram tablet Take 1 tablet by mouth four times daily. - hydrOXYzine HCl (ATARAX) 25 mg tablet Take 1-2 tablets by mouth at bedtime. Can cause drowsiness. - clobetasol (TEMOVATE) 0.05 % cream Apply to affected area twice daily Saturday-Saturday. Take weekends off. Do not use on face, armpits, neck, or groin. - Clobetasol Propionate (TEMOVATE) 0.05 % external solution Apply to affected areas on scalp twice daily Saturday-Saturday, take weekends off. May repeat as needed. - triamcinolone acetonide (KENALOG) 0.1 % cream Apply to affected areas twice daily for 2 weeks. - lacosamide (VIMPAT) 150 mg tab Take 1 tablet by mouth two times a day for 180 days. - levETIRAcetam (KEPPRA) 1,000 mg tablet Take 1 tablet by mouth two times a day. - rizatriptan (MAXALT) 10 mg tablet Take 1 tablet (10 mg) by mouth as needed (at onset of headache. May repeat after 2 hours.). Do not exceed 30 mg per day. - topiramate (TOPAMAX) 25 mg tablet (Discontinued) Take by mouth. One tablet twice daily for a week; then two tablets twice daily thereafter. 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 Medication side effect [T88.7XXA] 03/12/2018 04/24/2019 Encounter for monitoring anticonvulsant therapy*03/12/2018 Vitamin D deficiency [E55.9] 06/15/2018 URI (obstructive sleep apnea) [G47.33] 08/28/2018 Anxiety [F41.9] 08/28/2018 Episode of recurrent major depressive disorder *08/28/2018 Splenomegaly [R16.1] 03/20/2019 Anemia [D64.9] 03/20/2019 Ganglion cyst of wrist, right [M67.431] 04/24/2019 Acute pain of right knee [M25.561] 09/20/2020 Plica of knee, right [M67.51] 02/20/2021 02/20/2021 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 GERD (gastroesophageal reflux disease) [K21.9] 02/13/2023 Menorrhagia with irregular cycle [N92.1] 02/28/2023 Unable to empty bladder [R33.9] 07/16/2024 Encounter Status:Closed by IVANA PARRA on 11/06/24 Normal [facility] CBC W Auto Differential pane l (Bld)on 10-26-2024 Basophils (Bld) [#/Vol] 0.05 10*3/uL [facility] Basophils/100 WBC (Bld) 0.7 % [facility] Differential cell count method Nom (Bld) Auto [facility] Eosinophils (Bld) [#/Vol] 0.09 10*3/uL [facility] Eosinophils/100 WBC (Bld) 1.2 % [facility] Erythrocyte distribution width (RBC) [Ratio] 13.3 % 11.5 - 15.0 % [facility] Hematocrit (Bld) [Volume fraction] 43.1 % 36.0 - 46.0 % [facility] Hemoglobin (Bld) [Mass/Vol] 14.7 g/dL 11.5 - 15.5 g/dL [facility] Immature granulocytes (Bld) [#/Vol] [facility] Immature granulocytes/100 WBC (Bld) 0.1 % [facility] Lymphocytes (Bld) [#/Vol] 2.66 10*3/uL [facility] Lymphocytes/100 WBC (Bld) 34.8 % [facility] MCH (RBC) [Entitic mass] 29.2 pg 26. 0 - 34.0 pg [facility] MCHC (RBC) [Mass/Vol] 34.1 g/dL 30.5 - 36.0 g/dL [facility] MCV (RBC) [Entitic vol] 85.5 fL 80.0 - 100.0 fL [facility] Monocytes (Bld) [#/Vol] 0.61 10*3/uL [facility] Monocytes/100 WBC (Bld) 8 % [facility] Neutrophils (Bld) [#/Vol] 4.23 10*3/uL [facility] Neutrophils/100 WBC (Bld) 55.2 % [facility] Nucleated RBC (Bld) [#/Vol] NINF [facility] Nucleated RBC/100 WBC (Bld) [Ratio] 0 % /100 WBC [facility] Platelet mean volume (Bld) [Entitic vol] 9.3 fL 9.0 - 12.7 fL [facility] Platelets (Bld) [#/Vol] 341 10*3/uL [facility] RBC (Bld) [#/Vol] 5.04 10*6/uL 3.90 - 5.2 0 m/uL [facility] WBC (Bld) [#/Vol] 7.65 10*3/uL [facility] Basophils (Bld) [#/Vol] 0.05 10*3/uL Normal <0.11 [facility] Comment on above: Order Comment: Speci men Type: BLOOD SPECIMENOrdering Facility: [facility] Address: [address] [place] [address] Performed By: #### 5 7021-8 ####[facility] [id number] [address] STATES OF [facility] Basophils/100 WBC (Bld) 0.7 % Normal [facility] Comment on above: Order Comment: Speci men Type: BLOOD SPECIMENOrdering Facility: [facility] Address: [address] [place] [address] Performed By: #### 5 7021-8 ####[facility] [id number] [id number], [place] [address] [place] Differential cell count method Nom (Bld) Auto Normal [facility] Comment on above: Order Comment: Speci men Type: BLOOD SPECIMENOrdering Facility: [facility] Address: [address] [place] [address] Performed By: #### 5 7021-8 ####[facility] [id number] [place] [address] [place] Eosinophils (Bld) [#/Vol] 0.09 10*3/uL Normal <0.46 [facility] Comment on above: Order Comment: Speci men Type: BLOOD SPECIMENOrdering Facility: [facility] Address: [address] [place] [address] Performed By: #### 5 7021-8 ####[facility] [id number] [place] [address] [place] Eosinophils/100 WBC (Bld) 1.2 % Normal [facility] Comment on above: Order Comment: Speci men Type: BLOOD SPECIMENOrdering Facility: [facility] Address: [address] [place] [address] Performed By: #### 5 7021-8 ####[facility] [id number] [place] [address] [place] Erythrocyte distribution width (RBC) [Ratio] 13.3 % Normal 11.5-15.0 [facility] Comment on above: Order Comment: Speci men Type: BLOOD SPECIMENOrdering Facility: [facility] Address: [address] [place] [address] Performed By: #### 5 7021-8 ####[facility] [id number] [place] [address] [place] Hematocrit (Bld) [Volume fraction] 43.1 % Normal 36.0-46.0 [facility] Comment on above: Order Comment: Speci men Type: BLOOD SPECIMENOrdering Facility: [facility] Address: [address] [place] [address] Performed By: #### 5 7021-8 ####[facility] [id number] [address], [place] [address] [place] Hemoglobin (Bld) [Mass/Vol] 14.7 g/dL Normal 11.5-15.5 [facility] Comment on above: Order Comment: Speci men Type: BLOOD SPECIMENOrdering Facility: [facility] Address: [address] [place] [address] Performed By: #### 5 7021-8 ####[facility] [id number] [address], [place] [address] [place] Immature granulocytes (Bld) [#/Vol] 10*3/uL Normal <0.10 [facility] Comment on above: Order Comment: Speci men Type: BLOOD SPECIMENOrdering Facility: [facility] Address: [address] [place] [address] Performed By: #### 5 7021-8 ####[facility] [id number] [address], [place] [address] [place] Immature granulocytes/100 WBC (Bld) 0.1 % Normal [facility] Comment on above: Order Comment: Speci men Type: BLOOD SPECIMENOrdering Facility: [facility] Address: [address] [place] [address] Performed By: #### 5 7021-8 ####[facility] [id number] [address], [facility] [place] Lymphocytes (Bld) [#/Vol] 2.66 10*3/uL Normal 1.00-4.00 [facility] Comment on above: Order Comment: Speci men Type: BLOOD SPECIMENOrdering Facility: [facility] Address: [address] [place] [address] Performed By: #### 5 7021-8 ####[facility] [id number] [place] [id number] [place] Lymphocytes/100 WBC (Bld) 34.8 % Normal [facility] Comment on above: Order Comment: Speci men Type: BLOOD SPECIMENOrdering Facility: [facility] Address: [address] [place] [address] Performed By: #### 5 7021-8 ####[facility] [id number] [place] [address] [place] MCH (RBC) [Entitic mass] 29.2 pg Normal 26.0-34.0 [facility] Comment on above: Order Comment: Speci men Type: BLOOD SPECIMENOrdering Facility: [facility] Address: [address] [place] [address] Performed By: #### 5 7021-8 ####[facility] [id number] [place] [address] [place] MCHC (RBC) [Mass/Vol] 34.1 g/dL Normal 30.5-36.0 [facility] Comment on above: Order Comment: Speci men Type: BLOOD SPECIMENOrdering Facility: [facility] Address: [address] [place] [address] Performed By: #### 5 7021-8 ####[facility] [id number] [place] [address] [place] MCV (RBC) [Entitic vol] 85.5 fL Normal 80.0-100.0 [facility] Comment on above: Order Comment: Speci men Type: BLOOD SPECIMENOrdering Facility: [facility] Address: [address] [place] [address] Performed By: #### 5 7021-8 ####[facility] [id number] [place] [address] [place] Monocytes (Bld) [#/Vol] 0.61 10*3/uL Normal <0.87 [facility] Comment on above: Order Comment: Speci men Type: BLOOD SPECIMENOrdering Facility: [facility] Address: [address] [place] [address] Performed By: #### 5 7021-8 ####[facility] [id number] [place] [address] [place] Monocytes/100 WBC (Bld) 8.0 % Normal [facility] Comment on above: Order Comment: Speci men Type: BLOOD SPECIMENOrdering Facility: [facility] Address: [address] [place] [address] Performed By: #### 5 7021-8 ####[facility] [id number] [place] [address] [place] Neutrophils (Bld) [#/Vol] 4.23 10*3/uL Normal 1.45-7.50 [facility] Comment on above: Order Comment: Speci men Type: BLOOD SPECIMENOrdering Facility: [facility] Address: [address] [place] [address] Performed By: #### 5 7021-8 ####[facility] [id number] [address] [place] Neutrophils/100 WBC (Bld) 55.2 % Normal [facility] Comment on above: Order Comment: Speci men Type: BLOOD SPECIMENOrdering Facility: [facility] Address: [address] [place] [address] Performed By: #### 5 7021-8 ####[facility] [id number] [place] [address] [place] Nucleated RBC (Bld) [#/Vol] 10*3/uL Normal <0.01 [facility] Comment on above: Order Comment: Speci men Type: BLOOD SPECIMENOrdering Facility: [facility] Address: [address] [place] [address] Performed By: #### 5 7021-8 ####[facility] [id number] [place] [address] [place] Nucleated RBC/100 WBC (Bld) [Ratio] 0.0 /100 WBC Normal [facility] Comment on above: Order Comment: Speci men Type: BLOOD SPECIMENOrdering Facility: [facility] Address: [address] [place] [address] Performed By: #### 5 7021-8 ####[facility] [id number] [place] [address] [place] Platelet mean volume (Bld) [Entitic vol] 9.3 fL Normal 9.0-12.7 [facility] Comment on above: Order Comment: Speci men Type: BLOOD SPECIMENOrdering Facility: [facility] Address: [address] [place] [address] Performed By: #### 5 7021-8 ####[facility] [id number] [place] [address] [place] Platelets (Bld) [#/Vol] 341 10*3/uL Normal 150-400 [facility] Comment on above: Order Comment: Speci men Type: BLOOD SPECIMENOrdering Facility: [facility] Address: [address] [place] [address] Performed By: #### 5 7021-8 ####[facility] [id number] [place] [address] [place] RBC (Bld) [#/Vol] 5.04 10*6/uL Normal 3.90-5.20 [facility] Comment on above: Order Comment: Speci men Type: BLOOD SPECIMENOrdering Facility: [facility] Address: [address] [place] [address] Performed By: #### 5 7021-8 ####[facility] [id number] [place] [id number] [place] WBC (Bld) [#/Vol] 7.65 10*3/uL Normal 3.70-11.00 [facility] Comment on above: Order Comment: Speci men Type: BLOOD SPECIMENOrdering Facility: [facility] Address: [address] [place] [address] Performed By: #### 5 7021-8 ####[facility] [id number] JAYLIN JONES [id number] [place] [address] OF [facility] CNOVon 10-26-2024 CNOV Office Visit ([facility] ) YAMIL NG ([id number]) 1985 F Date Time Provider Department 10/26/24 2:40 PM CRISTY DUNBAR During your visit today, we recorded the following information about you: Pulse Respiration Blood pressure Weight 60/minute 16/minute 94/66 67.9 kg Cristy Dunbar APRN.TRACK WATCHMAN 10/26/2024 3:26 PM Signed 10/26/2024 Patient presents with: Fatigue: And unable to eat due to nausea; increasingly worse in the last 3 weeks. SUBJECTIVE: This is a 39 year old that is here today for Above Complaints. For the last 3 weeks has had nausea and fatigue. Sometimes vomiting. Aggravated by eating and just breathing. Has tired cinnamon, Zofran, and Pepto with no relief. Admits to some generalized abdominal pain. Described as a rolling sensation.Diarrhea last night.Constipation three weeks ago. Denies weight loss, fevers, hematemesis, melana or hematochezia. PAST MEDICAL HISTORY Diagnosis Date Anemia Complication of anesthesia nausea and vomiting Episode of recurrent major depressive disorder 08/28/2018 Family history of epilepsy aunt Hepatic hemangioma 01/20/2024 Hepatitis in viral diseases classified elsewhere(573.1) when she had mono PMH - PAST MEDICAL HISTORY OF Right Sciatica Seizure disorder (HCC) 02/04/2018 ALLERGIES Bleach (Sodium Hypochlorite), Lamictal [Lamotrigine], [place] [Trees], Topiramate, and Tree And Shrub Pollen MEDICATIONS Current Outpatient Medications Medication Sig hydrOXYzine HCl (ATARAX) 25 mg tablet Take 1-2 tablets by mouth at bedtime. Can cause drowsiness. clobetasol (TEMOVATE) 0.05 % cream Apply to affected area twice daily Saturday-Saturday. Take weekends off. Do not use on face, armpits, neck, or groin. metoclopramide HCl (REGLAN) 5 mg tablet Take 1 tablet by mouth three times a day. Clobetasol Propionate (TEMOVATE) 0.05 % external solution Apply to affected areas on scalp twice daily Saturday-Saturday, take weekends off. May repeat as needed. triamcinolone acetonide (KENALOG) 0.1 % cream Apply to affected areas twice daily for 2 weeks. lacosamide (VIMPAT) 150 mg tab Take 1 tablet by mouth two times a day for 180 days. levETIRAcetam (KEPPRA) 1,000 mg tablet Take 1 tablet by mouth two times a day. rizatriptan (MAXALT) 10 mg tablet Take 1 tablet (10 mg) by mouth as needed (at onset of headache. May repeat after 2 hours.). Do not exceed 30 mg per day. omeprazole (PRILOSEC) 40 mg capsule Take 1 capsule by mouth two times a day. No current facility-administered medications for this visit. Medications and allergies reviewed by this provider. SOCIAL HISTORY Social History Tobacco Use Smoking status: Never Smokeless tobacco: Never Vaping Use Vaping status: Never Used Substance Use Topics Alcohol use: Yes Comment: occasional Drug use: No REVIEW OF SYSTEMS All other reviewed and negative other than HPI. OBJECTIVE: BP 94/66 Pulse 60 Resp 16 Wt 67.9 kg (149 lb 12.8 oz) LMP 07/17/2023 (Exact Date) SpO2 98% BMI 26.54 kg/m? . Vital signs reviewed by this provider. APPEARANCE Well appearing, alert, in no acute distress, well-hydrated, well nourished. EYES PERRLA, conjunctiva and sclera normal. HEART RRR with normal S1 and S2, no murmurs, no gallops, no JVD appreciated LUNG clear to auscultation. No wheezes, rhonchi or rales ABDOMEN bowel sounds normoactive, no bruits, soft, non-tender, non-distended, without organomegaly or palpable masses. No TTP, rebound tenderness or guarding SKIN Skin color, texture, turgor normal, no suspicious rashes or lesions to exposed skin Hepatitis C Screening Never done Hepatitis B Vaccine(1 of 3 - 19+ 3-dose series) Never done Cervical Cancer Screening due on 11/24/2023 Mammogram Screening due on 11/05/2024 Covid-19 Vaccine( season) due on 07/01/2025 Influenza Vaccine(Season Ended) due on 02/22/2025 DTaP,Tdap,Td Vaccine(4 - Td or Tdap) due on 05/24/2034 HIV Screening Completed ASSESSMENT/PLAN: 1. Nausea - ICD9: 787.02, ICD10: R11.0 (primary diagnosis) - no red flag symptoms or exam findings - red flag symptoms discussed, verbalizes understanding - CONSULT TO GASTROENTEROLOGY - XR ABDOMEN 1V SUPINE - COMPREHENSIVE METABOLIC PANEL - COMPLETE BLOOD COUNT AND DIFFERENTIAL - LIPASE - SUCRALFATE 100 MG/ML ORAL SUSPENSION - follow-up with gastroenterology to ER with red flag symptoms 2. Generalized abdominal pain - ICD9: 789.07, ICD10: R10.84 Differential Diagnosis includes GERD, PUD, Gastritis, and IBS - [place] low residue diet - CONSULT TO GASTROENTEROLOGY - XR ABDOMEN 1V SUPINE - COMPREHENSIVE METABOLIC PANEL - COMPLETE BLOOD COUNT AND DIFFERENTIAL - LIPASE - follow-up with gastroenterology to ER with red flag symptoms Cristy Dunbar, BLOCKLAYER.TRACK WATCHMAN Prescription instructions reviewed with patient as applicable. Patient advised if symptoms do not improve o (more content not included)... Normal [facility] Comprehensive metabolic 2000 panelon 10-26-2024 Albumin [Mass/Vol] 4.5 g/dL Normal 3.9-4.9 [facility] Comment on above: Order Comment: Speci men Type: BLOOD SPECIMEN Ordering Facility: [facility] Address: [address] [place] [address] Performed By: #### 2 4323-8, 3040-3 #### [facility] CLIA [id number] [address] [place] [address] [place] [address] [place] ALP [Catalytic activity/Vol] 57 U/L Normal 34-123 [facility] Comment on above: Order Comment: Speci men Type: BLOOD SPECIMEN Ordering Facility: [facility] Address: [address] [place] [address] Performed By: #### 2 4323-8, 3040-3 #### [facility] CLIA [id number] [address] [place] [address] [place] ALT [Catalytic activity/Vol] 11 U/L Normal 7-38 [facility] Comment on above: Order Comment: Speci men Type: BLOOD SPECIMEN Ordering Facility: [facility] Address: [address] [place] [address] Performed By: #### 2 4323-8, 0-3 #### [facility] CLIA [id number] [address] [place] [address] [place] Anion gap [Moles/Vol] 10 mmol/L Normal 8-15 [facility] Comment on above: Order Comment: Speci men Type: BLOOD SPECIMEN Ordering Facility: [facility] Address: [address] [place] [address] Performed By: #### 2 4323-8, 3040-3 #### [facility] CLIA [id number] [address] [place] [address] [place] AST [Catalytic activity/Vol] 22 U/L Normal 13-35 [facility] Comment on above: Order Comment: Speci men Type: BLOOD SPECIMEN Ordering Facility: [facility] Address: [address] [place] [id number] Performed By: #### 2 4323-8, 3040-3 #### [facility] CLIA [id number] [address] [place] [address] [place] Bilirubin [Mass/Vol] 0.4 mg/dL Normal 0.2-1.3 [facility] Comment on above: Order Comment: Speci men Type: BLOOD SPECIMEN Ordering Facility: [facility] Address: [address] [place] [address] Performed By: #### 2 4323-8, 0-3 #### [facility] CLIA [id number] [address] [place] [address] [place] Calcium [Mass/Vol] 9.6 mg/dL Normal 8.5-10.2 [facility] Comment on above: Order Comment: Speci men Type: BLOOD SPECIMEN Ordering Facility: [facility] Address: [address] [place] [address] Performed By: #### 2 4323-8, 3039-3 #### [facility] CLIA [id number] [address] [place] [address] [place] Chloride [Moles/Vol] 102 mmol/L Normal 98-107 [facility] Comment on above: Order Comment: Speci men Type: BLOOD SPECIMEN Ordering Facility: [facility] Address: [address] [place] [address] Performed By: #### 2 4323-8, 3039-3 #### [facility] CLIA [id number] [address] [place] [address] [place] CO2 [Moles/Vol] 26 mmol/L Normal 22-30 [facility] Comment on above: Order Comment: Speci men Type: BLOOD SPECIMEN Ordering Facility: [facility] Address: [address] [place] [address] Performed By: #### 2 4323-8, 3039-3 #### [facility] CLIA [id number] [address] [place], [place] [id number] [place] Creatinine [Mass/Vol] 0.92 mg/dL Normal 0.58-0.96 [facility] Comment on above: Order Comment: Speci men Type: BLOOD SPECIMEN [facility] [facility] Address: [address] [place] [address] Performed By: #### 2 4323-8, 0-3 #### [facility] CLIA [id number] [address] [place] [address] [place] Creatinine and Glomerular filtration rate.predicted panel (S/P/Bld) 80 mL/min/1.73m??? Normal >=60 [facility] Comment on above: Order Comment: Bradley whitehead Type: BLOOD SPECIMEN Ordering Facility: [facility] Address: [address] [place] [address] Result Comment: Andree mated Glomerular Filtration Rate (eGFR) is calculated using the 2020 CKD-EPI creatinine equation. This equation utilizes serum creatinine, sex, and age as parameters. The creatinine assay has traceable calibration to isotope dilution-mass spectrometry. Refer to KDIGO guidelines for clinical interpretation. In patients with unstable renal function, e.g. those with acute kidney injury, the eGFR may not accurately reflect actual GFR. Performed By: #### 2 4323-8, 3040-3 #### [facility] [place] [id number] [address] [place] [address] [place] Glucose [Mass/Vol] 86 mg/dL Normal 74-99 [facility] Comment on above: Order Comment: Bradley whitehead Type: BLOOD SPECIMEN Ordering Facility: [facility] Address: [address] [place] [address] Result Comment: The [place] Diabetes Association (ADA) provides guidance for cutoff values for fasting glucose and random glucose. The ADA defines fasting as no caloric intake for at least 8 hours. Fasting plasma glucose results between 100 to 125 mg/dL indicate increased risk for diabetes (prediabetes). Fasting plasma glucose results greater than or equal to 126 mg/dL meet the criteria for diagnosis of diabetes. In the absence of unequivocal hyperglycemia, results should be confirmed by repeat testing. In a patient with classic symptoms of hyperglycemia or hyperglycemic crisis, random plasma glucose results greater than or equal to 200 mg/dL meet the criteria for diagnosis of diabetes. Reference: Standards of Medical Care in Diabetes 2016, [place] Diabetes Association. Diabetes Care. 2016.39(Suppl 1). Performed By: #### 2 4323-8, 3040-3 #### [facility] CLIA [id number] [address] [place], [place] [id number] [place] Potassium [Moles/Vol] 4.6 mmol/L Normal 3.7-5.1 [facility] Comment on above: Order Comment: Speci men Type: BLOOD SPECIMEN Ordering Facility: [facility] Address: [address] [place] [address] Performed By: #### 2 4323-8, 3040-3 #### [facility] CLIA [id number] [address] [place] [address] [place] Protein [Mass/Vol] 7.5 g/dL Normal 6.3-8.0 [facility] Comment on above: Order Comment: Speci men Type: BLOOD SPECIMEN Ordering Facility: [facility] Address: [address] [place] [address] Performed By: #### 2 4323-8, 3040-3 #### [facility] CLIA [id number] [address] [place] [address] [place] Sodium [Moles/Vol] 138 mmol/L Normal 136-144 [facility] Comment on above: Order Comment: Speci men Type: BLOOD SPECIMEN Ordering Facility: [facility] Address: [address] [place] [address] Performed By: #### 2 4323-8, 3040-3 #### [facility] CLIA [id number] [address] [place] [address] [place] Urea nitrogen [Mass/Vol] 13 mg/dL Normal 7-21 [facility] Comment on above: Order Comment: Speci men Type: BLOOD SPECIMEN Ordering Facility: [facility] Address: [address] [place] [address] Performed By: #### 2 4323-8, 3040-3 #### [facility] CLIA [id number] [address] [place] [address] [place] Lipase SerPl-cCncon 10-27-19 25 Lipase [Catalytic activity/Vol] 37 U/L Normal 16-61 [facility] Comment on above: Order Comment: Speci men Type: BLOOD SPECIMEN Ordering Facility: [facility] Address: [address] [place] [address] Performed By: #### 2 4323-8, 3040-3 #### [facility] CLIA [id number] [address] [place] [address] [place] [address] [place] XR ABDOMEN 1V SUPINEon 10-26 XR ABDOMEN 1V SUPINE * * *Final Report* * * DATE OF EXAM: Oct 26 2024 3:10PM WOX [id number] - XR ABDOMEN 1V SUPINE / PROCEDURE REASON: multiple diagnoses * * * * Physician Interpretation * * * * TITLE: XR ABDOMEN 1V SUPINE CLINICAL INDICATION: Nausea and epigastric pain TECHNIQUE: Supine frontal radiograph of the abdomen COMPARISON: None FINDINGS: Nonobstructive bowel gas pattern. Moderate stool burden. Visualized lung bases clear IMPRESSION: Nonobstructive bowel gas pattern Binitrotoluene [facility] Transcribe Date/Time: Oct 26 2024 3:19P Dictated by : MARISOL ECHOLS MD This examination was interpreted and the report reviewed and electronically signed by: MARISOL ECHOLS MD on Oct 26 2024 3:20PM EST [id number] Normal [facility] XR Abdomen Supine and Uprigh ton 10-26-2024 IMPRESSION: Nonobstructive bowel gas pattern Binitrotoluene Operator: [facility] Transcribe Date/Time: Oct 26 2024 3:19P Dictated by : MARISOL ECHOLS MD This examination was interpreted and the report reviewed and electronically signed by: MARISOL ECHOLS MD on Oct 26 2024 3:20PM EST DIVISION OF RADIOLOGY * * *Final Report* * * DATE OF EXAM: Oct 26 2024 3:10PM WOX [id number] - XR ABDOMEN 1V SUPINE / PROCEDURE REASON: multiple diagnoses * * * * Physician Interpretation * * * * TITLE: XR ABDOMEN 1V SUPINE CLINICAL INDICATION: Nausea and epigastric pain TECHNIQUE: Supine frontal radiograph of the abdomen COMPARISON: None FINDINGS: Nonobstructive bowel gas pattern. Moderate stool burden. Visualized lung bases clear DIVISION OF RADIOLOGY Provider, [facility] - 10/26/2024 * * *Final Report* * * DATE OF EXAM: Oct 26 2024 3:10PM WOX 5289 - XR ABDOMEN 1V SUPINE / PROCEDURE REASON: multiple diagnoses * * * * Physician Interpretation * * * * TITLE: XR ABDOMEN 1V SUPINE CLINICAL INDICATION: Nausea and epigastric pain TECHNIQUE: Supine frontal radiograph of the abdomen COMPARISON: None FINDINGS: Nonobstructive bowel gas pattern. Moderate stool burden. Visualized lung bases clear IMPRESSION IMPRESSION: Nonobstructive bowel gas pattern Binitrotoluene Operator: GILDARDO Transcribe Date/Time: Oct 26 2024 3:19P Dictated by : MARISOL ECHOLS MD This examination was interpreted and the report reviewed and electronically signed by: MARISOL ECHOLS MD on Oct 26 2024 3:20PM [facility] Radiology Study observation (narrative) Vicki boston [facility] XR Abdomen Supine and Uprigh tOrdered By: [facility] Provider on 10-26-2024 [facility] CNOVon 09-10-2024 CNOV Office Visit (DERMST ) YAMIL NG ([id number]) 1985 F Date Time Provider Department 09/10/24 3:40 PM RENÉ BRAN DERM During your visit today, we recorded the following information about you: René Bran PA-C 09/10/2024 6:11 PM Signed ESTABLISHED PATIENT 09/10/2024 Last Visit in Dermatology: 08/04/2024 Chief Complaint: Rash (Follow up ) HPI: Yamil Ludy Ng is a 39 year old female. Patient presents with: Rash: Follow up #1 Rash follow up Location: Left Inframammary Fold, Pubic, Right Inframammary Fold Symptoms/Course: better, spreading up to back and under breasts. Itchy, red Current Treatment: triamcinolone cream Past Treatment: failed treatment with miconazole cream, tinactin, and lotrisone Pertinent History: History of skin cancer: No History of atypical nevi: No History of blistering sunburns / tanning bed use: No Organ transplant / Immunosuppression: No Pacemaker / Defibrillator / Heart Valve Replacement: No / : No Family history of skin cancer: No PAST MEDICAL HISTORY Diagnosis Date Anemia Complication of anesthesia nausea and vomiting Episode of recurrent major depressive disorder (HCC) 08/28/2018 Family history of epilepsy aunt Hepatic hemangioma 01/20/2024 Hepatitis in viral diseases classified elsewhere(573.1) when she had mono PMH - PAST MEDICAL HISTORY OF Right Sciatica Seizure disorder (HCC) 02/04/2018 Social History Tobacco Use Smoking status: Never Smokeless tobacco: Never Vaping Use Vaping status: Never Used Substance Use Topics Alcohol use: Yes Comment: occasional Drug use: No ALLERGIES Allergen Reactions Bleach (Sodium Hypo* Rash Lamictal [Lamotrigi* Rash [place] Trees [Trees] Rash, Hives Topiramate Rash Tree And Shrub Poll* Unknown Current Outpatient Medications Medication Sig metoclopramide HCl (REGLAN) 5 mg tablet Take 1 tablet by mouth three times a day. Clobetasol Propionate (TEMOVATE) 0.05 % external solution Apply to affected areas on scalp twice daily Saturday-Saturday, take weekends off. May repeat as needed. triamcinolone acetonide (KENALOG) 0.1 % cream Apply to affected areas twice daily for 2 weeks. lacosamide (VIMPAT) 150 mg tab Take 1 tablet by mouth two times a day for 180 days. levETIRAcetam (KEPPRA) 1,000 mg tablet Take 1 tablet by mouth two times a day. rizatriptan (MAXALT) 10 mg tablet Take 1 tablet (10 mg) by mouth as needed (at onset of headache. May repeat after 2 hours.). Do not exceed 30 mg per day. hydrOXYzine HCl (ATARAX) 25 mg tablet Take 1-2 tablets by mouth at bedtime. Can cause drowsiness. clobetasol (TEMOVATE) 0.05 % cream Apply to affected area twice daily Saturday-Saturday. Take weekends off. Do not use on face, armpits, neck, or groin. omeprazole (PRILOSEC) 40 mg capsule Take 1 capsule by mouth two times a day. ROS: Skin as above. PHYSICAL EXAM: Participation of a fellow, resident, medical student, or advanced practice provider student in performing the sensitive examination was discussed with the patient or authorized reimbursement representative. The patient or authorized reimbursement representative has agreed to proceed with the sensitive examination. [place] Skin Type: II The patient is a pleasant female in no apparent distress. Alert and oriented x 3. Appears well developed, well nourished, and in otherwise good health. A skin exam of the (waist up) scalp, face, ears, neck, chest, abdomen, back, and bilateral upper extremities including hands and nails was performed. IMPRESSION Left Breast, Mid Lower Back, Right Abdomen (side) - Lower, Right Breast, Right Suprapubic Area Scattered slightly erythematous papules and plaques r/o eczematous dermatitis vs other ASSESSMENT AND PLAN RASH AND NONSPECIFIC SKIN ERUPTION Left Breast, Mid Lower Back, Right Abdomen (side) - Lower, Right Breast, Right Suprapubic Area -Given clinical history and distribution favor Eczematous Dermatitis vs other -Recommend punch biopsy as patient has tied and failed miconazole, lotrisone, and triamcinolone cream -Discussed likely etiology and management options Plan: -CLOBETASOL 0.05% cream. Apply twice daily to affected area(s) for up to 5 days per week as needed. Do not apply more than 21 days per month. Do not apply to face, eyelids, underarms, under breasts or in groin. Counseled patient regarding side effects of topical steroids including, but are not limited to: atrophy, striae, telangiectasias, pigmentary changes. Limit application to affected areas on skin only. - OTC ANTIHISTAMINE daily-10 mg Claritin and 20 mg Pepcid in AM. - HYDROXYZINE (Atarax) 25-50 mg at night, discussed can cause drowsiness -Recommend gentle skin care with fragrance free products such as Vanicream, Cetaphil, CeraVe SKIN / NAIL BIOPSY - Mid Lower Back Type of biopsy: punch Informed consent: discussed (more content not included)... Normal [facility] Pathology biopsy report Lele (Tiss)on 09-10-2024 AP DISCLAIMER Normal [facility] Comment on above: Order Comment: Speci men Type: TISSUE SPECIMENOrdering Facility: [facility] Address: [address] [place] [address] Result Comment: Susan simonkizzy Developed Test (LDT) Disclaimer: Performance characteristics of immunohistochemical, immunofluorescent, and chromogenic in-situ hybridization tests have been determined by the performing laboratory within [facility]'s [facility] Pathology and Laboratory Medicine Department ([facility], [facility], [facility], [facility], [facility], [facility], or [facility]) in a manner consistent with CLIA requirements. One or more of these tests may not have been cleared or approved by the FDA. [facility] is regulated under CLIA as qualified to perform high-complexity testing. These tests are used for clinical purposes. These should not be regarded as investigational or for research. Positive and negative controls stain appropriately. Performed By: #### 6 6121-5 ####[facility] [id number] [place] [address] [place] CASE REPORT Normal [facility] Comment on above: Order Comment: Speci men Type: TISSUE SPECIMENOrdering Facility: [facility] Address: [address] [place] [address] Result Comment: Surg ica Pathology Report Case: [id number] Authorizing Provider: René Bran PA-C Collected: 09/10/2024 04:23 PM Ordering Location: Dermatology Received: 09/11/2024 08:54 AM Pathologist: Marcella Ram MD Specimen: Skin, Mid Lower Back Performed By: #### 6 6121-5 ####[facility] [id number] [place] [address] [place] DIAGNOSIS COMMENT Normal [facility] Comment on above: Order Comment: Speci men Type: TISSUE SPECIMENOrdering Facility: [facility] Address: [address] [place] [address] Result Comment: The histological sections demonstrate an epidermis with compact hyperkeratosis and focal spongiosis. There is prominent vacuolization of basal layer associated with a dermal and lichenoid and superficial perivascular lymphohistiocytic inflammatory infiltrate. The deep dermis is spared. In addition, elastosis, pigmented macrophages and focal melanoderma are noted. The clinical history and photographs are reviewed. 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 The differential diagnosis includes hypersensitivity dermatitis. Performed By: #### 6 6121-5 ####[facility] [id number] [address] [place] FINAL DIAGNOSIS Normal [facility] Comment on above: Order Comment: Speci men Type: TISSUE SPECIMENOrdering Facility: [facility] Address: [address] [place] [address] Result Comment: A. S kin, mid lower back, punch biopsy: - Interface dermatitis, see comment. WB/RTM 09/14/2024 at 1501 EDT Performed By: #### 6 6121-5 ####[facility] [id number] [address] [place] FINAL PERFORMING LAB Normal [facility] Comment on above: Order Comment: Speci men Type: TISSUE SPECIMENOrdering Facility: [facility] Address: [address] [place] [address] Result Comment: Diag nostic interpretation performed at: [facility], [address] [place] [address] CLIA# [id number] Engine Inspector: Mitchell Cohn MD Performed By: #### 6 6121-5 ####[facility] [id number] [address] [place] GROSS DESCRIPTION A. Skin Normal [facility] Comment on above: Order Comment: Speci men Type: TISSUE SPECIMENOrdering Facility: [facility] Address: [address] [place] [address] Result Comment: Rece ived in formalin is a cylindrical segment of skin and subcutaneous tissue measuring 0.4 x 0.4 x 0.7 cm. On the skin surface there is a 0.4 cm, pugh to pugh-white flat scaly area. The specimen is bisected. Totally submitted in one cassette. JC September 11, 2024 3:15 PM Gross examination performed at [facility], [address] [place] [address] Performed By: #### 6 6121-5 ####[facility] [id number] [address] [place] SKIN / NAIL BIOPSYon 09-10- 025 Type of biopsy: punc h Informed consent: discussed and consent obtained Timeout: patient name, date of , surgical site, and procedure verified Procedure prep: Patient was prepped and draped in usual sterile fashion Prep type: Isopropyl alcohol Anesthesia: the lesion was anesthetized in a standard fashion Anesthetic: 1% lidocaine w/ epinephrine 1-100,000 local infiltration Punch size: 4 mm Suture type: Prolene (polypropylene) Hemostasis achieved with: suture Outcome: patient tolerated procedure well Post-procedure details: sterile dressing applied and wound care instructions given [facility] Type of biopsy: punch [facility] CNOVon 08-26-2024 CNOV Office Visit (MELISSA ) YAMIL NG ([id number]) 1985 F Date Time Provider Department 08/26/24 2:20 PM CRISTY DUNBAR During your visit today, we recorded the following information about you: Pulse Respiration Blood pressure Weight 65/minute 18/minute 108/62 68.3 kg Cristy Dunbar APRN.CNP 08/26/2024 2:34 PM Signed 08/25/2024 Patient presents with: ER F/U: [facility] for UTI/flank pain. Last dose of ATB tonight. SUBJECTIVE: This is a 39 year old that is here today for Above Complaints. HOSPITAL/ER FOLLOW UP: Reason for visit: Left flank pain Which facility: [facility] Date of visit: 08/22/2024 Diagnosis: flank pain, uncertain cause Testing done: blood work, UA, CT ABD/PEL Treatment given: hydrocodone and Zofran Started Keflex she was [facility]. Has one more dose left. Feeling some better but not 100%. Still with left flank. Reports it is constant. Described as aching and at times can shoot pain. Not taking anything for pain. Denies injury, fevers, chills, saddle anaesthesia, extremity numbness, tingling, weakness, abdominal pain, nausea, vomiting, dysuria or hematuria ER records reviewed PAST MEDICAL HISTORY Diagnosis Date Anemia Complication of anesthesia nausea and vomiting Episode of recurrent major depressive disorder (HCC) 08/28/2018 Family history of epilepsy aunt Hepatic hemangioma 01/20/2024 Hepatitis in viral diseases classified elsewhere(573.1) when she had mono PMH - PAST MEDICAL HISTORY OF Right Sciatica Seizure disorder (HCC) 02/04/2018 ALLERGIES Bleach (Sodium Hypochlorite), Lamictal [Lamotrigine], [place] Trees [Trees], Topiramate, and Tree And Shrub Pollen MEDICATIONS Current Outpatient Medications Medication Sig cephALEXin (KEFLEX) 500 mg capsule Take 1 capsule by mouth two times a day for 5 days. Clobetasol Propionate (TEMOVATE) 0.05 % external solution Apply to affected areas on scalp twice daily Saturday-Saturday, take weekends off. May repeat as needed. triamcinolone acetonide (KENALOG) 0.1 % cream Apply to affected areas twice daily for 2 weeks. lacosamide (VIMPAT) 150 mg tab Take 1 tablet by mouth two times a day for 180 days. levETIRAcetam (KEPPRA) 1,000 mg tablet Take 1 tablet by mouth two times a day. fremanezumab-vfrm (AJOVY AUTOINJECTOR) 225 mg/1.5 mL auto-injector Inject 1.5 mL subcutaneously once every month. Do not shake. rizatriptan (MAXALT) 10 mg tablet Take 1 tablet (10 mg) by mouth as needed (at onset of headache. May repeat after 2 hours.). Do not exceed 30 mg per day. omeprazole (PRILOSEC) 40 mg capsule Take 1 capsule by mouth two times a day. No current facility-administered medications for this visit. Medications and allergies reviewed by this provider. SOCIAL HISTORY Social History Tobacco Use Smoking status: Never Smokeless tobacco: Never Vaping Use Vaping status: Never Used Substance Use Topics Alcohol use: Yes Comment: occasional Drug use: No REVIEW OF SYSTEMS All other reviewed and negative other than HPI. OBJECTIVE: BP 108/62 Pulse 65 Resp 18 Wt 68.3 kg (150 lb 9.6 oz) LMP 07/17/2023 (Exact Date) SpO2 98% BMI 26.68 kg/m? . Vital signs reviewed by this provider. APPEARANCE Well appearing, alert, in no acute distress, well-hydrated, well nourished. EYES conjunctiva and sclera normal. HEART RRR with normal S1 and S2, no murmurs, no gallops, no JVD appreciated LUNG clear to auscultation. No wheezes, rhonchi or rales ABDOMEN bowel sounds normoactive, no bruits, soft, non-tender, non-distended, no tenderness to palpation BACK: good flexion and extension, negative SLR test. Mild TTP left flank SKIN Skin color, texture, turgor normal, no suspicious rashes or lesions to exposed skin Hepatitis C Screening Never done Hepatitis B Vaccine(1 of 3 - 19+ 3-dose series) Never done Cervical Cancer Screening due on 11/24/2023 Mammogram Screening due on 11/05/2024 Influenza Vaccine(1) due on 12/21/2024 Covid-19 Vaccine( - 2023- season) due on 07/01/2025 DTaP,Tdap,Td Vaccine(4 - Td or Tdap) due on 05/24/2034 HIV Screening Completed ASSESSMENT/PLAN: 1. Left flank pain - ICD9: 789.09, ICD10: R10.9 - possible muscular - take last dose of antibiotic - no red flag symptoms or exam findings - red flag symptoms discussed, verbalizes understanding - recommend OTC pain relievers as directed on packaging - may use heat/ice for 15 minutes at a time - follow-up if symptoms fail to improve to ER with red flag symptoms Cristy Podlogar, BLOCKLAYER.TRACK WATCHMAN Prescription instructions reviewed with patient as applicable. Patient advised if symptoms do not improve or if symptoms worsen sooner, to contact their primary care physician. Potential red flag symptoms discussed with the patient. Reviewed appropriate action plan to take if red flag symptoms occur. Patient agreeable to treatment plan. Medical D (more content not included)... Normal [facility] CNOV Office Visit (NEURST ) YAMIL NG ([id number]) 1985 F Date Time Provider Department 08/26/24 11:15 AM MARTINE MARINELLI During your visit today, we recorded the following information about you: Pulse Blood pressure Weight Height 64/minute 104/68 65 kg 1.6 m Melissa Hamilton MA 08/26/2024 11:55 AM Signed 08/26/2024 PROMIS Global Health Physical Health Summary Physical health: Fair Everyday physical activity, ability: Moderately Fatigue: Severe Pain level: 4 General health: Fair Social activities/roles, ability: Fair Physical Health T-Score 34.9 (Poor) Physical Health Percentile 7 PROMIS [facility] Mental Health Summary Quality of life: Fair Mental health (mood,thinking): Good Social satisfaction: Good Emotional problems (anxious,depressed): Rarely Mental Health T-Score 43.5 (Good) Mental Health Percentile 26 PHQ-9 Score: (Moderate Depression) PHQ-9 Self-Harm: Percentiles provide an indication of how a patient's score ranks in relation to the [place] general population. > 31st percentile is within normal limits or better *< 31st percentile is at least ? SD worse than population, which may be clinically relevant < 16th percentile is at least 1 SD worse than population and warrants attention Martine Marinelli APRN.TRACK WATCHMAN 08/26/2024 11:55 AM Signed [facility] Follow-Up Patient Evaluation CHIEF COMPLAINT: headache follow-up Yamil Ng is a 39 year old female with past medical history of anemia, depression, epilepsy, migraine, seizure disorder. She returns for follow-up after last visit on 05/22/2024. She is unaccompanied. INTERVAL HISTORY: Patient is still experiencing 1-2 migraine weekly followed by almost daily mild headaches lasting for couple hours. Her migraines lasting for several hours. The most concerning are the associated symptoms such as nausea and osmophobia. Rates her migraine headaches are 5-6/10. She has not used any dosage of rizatriptan due to the fact that she has forgotten to keep it in her purse. Her nausea is the most concerning symptoms. She has Zofran which she has used without effect. Different food smells aggravate her migraines as well. 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 She is on Vimpat and Keppra for seizures which she follows with epilepsy center for. Reports no seizures recently. Qulipta and Ajovy were ordered and PA were sent. Both were denied in the past. Last Filed Values Date of Most Recent Assessment and Plan 05/22/24 Specialty General Neurology Assessment This is a 38 year old female with past medical history of anemia, depression, epilepsy, migraine, and seizure disorder presenting with headaches which have began when she was 14-15 years old and worsened in the last 6-8 months. She was seen by Dr. Reddy on May 2023 and she has tried Topamax and propranolol as preventative with no effect. She was never prescribed rescue medication for her migraines. She is experiencing 4 migraines monthly with almost daily headaches rated from 6-9/10 throbbing, pressure, aching headaches associated with photo/phono sensitivity, nausea, vomiting, blurred vision, and dizziness which last for 2 to 4 hours. She finds some headache improvement from massages and sleep. She has epilepsy history. She is on Vimpat 150 mg twice daily and levetiracetam 1000 mg twice daily. Neurological exam is notable for decreased sensation of the right foot on the medial and lateral aspect of the foot along the dermatomes of L4-S1 and decreased temperature sensation of the right lower extremity. The rest of the exam is unremarkable. MRA/MRV/MRI brain done in May 2023 are unremarkable and reassuring. Low concern for central etiology at this time. Etiology of patient's symptoms is consistent with migraine without aura with status migrainosus. Discussed preventative and rescue medications for migraine headaches with patient and who is accompanying patient in this visit. Patient has tried Topamax and propranolol with no effect on her headaches. Next first-line as a preventative medication is TCAs such as nortriptyline or amitriptyline which lowers the seizure threshold. Recommend Qulipta 60 mg as a preventative. Will send PA. Will start patient on rizatriptan 10 mg as a rescue medication for migraines. Dosage, usage, and side effects of triptans were discussed with patient and printed information was provided on after visit summary Patient denies any personal history of [place] or CVA. Discussed medication dosage, usage, goals of therapy, and side effects including drowsiness, dizziness AND chest/throat tightness. Given instructions on use; take at onset of [facility] can repeat in 2 hours if needed. No more than 2 doses per 24 hours AND 3 doses per week. Patie (more content not included)... Normal [facility] Abdomen/Pelvis without Conto n 08-22-2024 Abdomen/Pelvis without Cont [facility] [address] [place] [id number] Abdomen/Pelvis without Cont MR#: [id number] Acct: [id number] Name: YAMIL NG Rep #: [id number] : 1985 F 39 From: Apolin[place] PCP: Dr. Skip Ignacio MD Status: [facility] Study: Abdomen/Pelvis without Cont Date of Exam: 07/18 Exam# [id number] Ordering Dr: Robert Belcher DO PROCEDURE: ABDOMEN/PELVIS WITHOUT CONT REASON FOR EXAM: Abdominal pain TECHNIQUE: Abdomen and pelvis CT without intravenous contrast. COMPARISON: February 2023 FINDINGS: Noncontrast technique limits evaluation of the abdominal and pelvic viscera. Lung bases: Clear Liver: Mild hepatic steatosis Gallbladder: Unremarkable. Spleen: Slight prominent at 13 cm Pancreas: Unremarkable. Adrenals: Unremarkable. Kidneys: It does appear to be some perinephric stranding as well as thickening of the left ureter. No renal stones detected. This may be due to some mild inflammation or possibly infection. Correlation urinalysis advised. The urinary bladder has a thick wall. Small amount of Trace ascites seen in the pelvis. Uterus is not seen presumed removed. There is no bowel obstruction. Normal appendix. No bowel inflammation No aneurysm. No abscess. Ovaries appear similar Tiny umbilical hernia containing fat CT/Abdomen/Pelvis without Cont IMPRESSION: No renal stone. There is mild left periureteral stranding. Correlation with urinalysis advised as there is also bladder wall thickening. Cystitis and ascending urinary tract infection can present similarly. Again no stone detected. Mild hepatic steatosis Upper limits of normal spleen size. Hysterectomy changes. One or more dose reduction techniques were used (e.g., Automated exposure control, adjustment of the mA and/or kV according to patient size, use of iterative reconstruction technique). Reading Location: [facility] CC: Dr. Skip Ignacio MD; Dr. Robert Belcher, Binitrotoluene Operator: Signed Normal [facility] Bacteria Ur Culton Bacteria identified Cx Nom (U) ORGANISM ID: 1 10,000 -<50,000 CFU/ml Escherichia coli ORGANISM ID: 2 <10,000 CFU/ml Normal urogenital shantal ORGANISM ID: 1 (ESCHERICHIA COLI) -- ANTIBIOTIC INTERPRETATION BRENDA STATUS REFERENCE RANGE -- Ampicillin R >=32 F Susceptible <=8 , Intermediate >8 , Resistant >16 Cefazolin S <=4 F Susceptible 0-16 , Intermediate <0 or >16 , Resistant >16 For uncomplicated urinary tract infections, cefazolin results can be used to predict susceptibility or resistance to cephalexin. Ceftriaxone S <=1 F Susceptible <=1 , Intermediate >1 , Resistant >=4 Cefepime S <=1 F Susceptible <=2 , Susceptible-Dose Dependent >2 , Resistant >=16 Ertapenem S <=0.5 F Susceptible <=0.5 , Intermediate >.5 , Resistant >1 Meropenem S <=0.25 F Susceptible <=1 , Intermediate >1 , Resistant >2 Ampicillin/Sulbact I 16 F Susceptible <=8 , Intermediate >8 , Resistant >16 Piperacillin/Tazobac S <=4 F Susceptible <16 , Susceptible-Dose Dependent >=16 , Resistant >=32 Gentamicin S <=1 F Susceptible <=2 , Intermediate >2 , Resistant >=8 Tobramycin S <=1 F Susceptible <4 , Intermediate >=4 , Resistant >=8 Trimeth sulfameth S <=20 F Susceptible <=40 , Resistant >40 Ciprofloxacin S <=0.25 F Susceptible <0.5 , Intermediate >=.5 , Resistant >=1 Nitrofurantoin S <=16 F Susceptible <=32 , Intermediate >32 , Resistant >64 Abnormal [facility] Comment on above: Performed By: #### 6 30-4 ####[facility] LABCLIA [id number] [address] [facility] Basic Metabolic Profile (BMP )on 08-22-2024 Anion gap [Moles/Vol] 16 mmol/L High 5-15 [facility] Comment on above: Performed By: #### L 700.6800, L500.2500, L100.0100 ####[facility] [address] [place], [address] BUN/CRE 17.0 RATIO Normal 10-20 [facility] Comment on above: Performed By: #### L 700.6800, L500.2500, L100.0100 ####[facility] [address] [place], [address] Calcium [Mass/Vol] 10.3 mg/dL Normal 7.6-11.0 [facility] Comment on above: Performed By: #### L 700.6800, L500.2500, L100.0100 ####[facility] [address] [place], [address] Chloride [Moles/Vol] 100 mmol/L Normal 96-108 [facility] Comment on above: Performed By: #### L 700.6800, L500.2500, L100.0100 ####[facility] [address] [place], [address] CO2 [Moles/Vol] 20.1 mmol/L Low 22.0-29.0 [facility] Comment on above: Performed By: #### L 700.6800, L500.2500, L100.0100 ####[facility] [address] [place], [address] Creatinine [Mass/Vol] 0.80 mg/dL Normal 0.70-1.20 [facility] Comment on above: Performed By: #### L 700.6800, L500.2500, L100.0100 ####[facility] [address] [place], [address] ECRCL 84.37 ml/min Normal 50-250 [facility] Comment on above: Performed By: #### L 700.6800, L500.2500, L100.0100 ####[facility] [address] [place], [address] GFR/1.73 sq M.predicted among non-blacks MDRD (S/P/Bld) [Vol rate/Area] 96 mL/min/{1.73_m2} Normal >60 [facility] Comment on above: Result Comment: mL/m in/1.73m2 CKD-EPI Creatinine Equation (2020) Performed By: #### L 700.6800, L500.2500, L100.0100 ####[facility] [address] [place], [address] Glucose [Mass/Vol] 96 mg/dL Normal 70-99 [facility] Comment on above: Performed By: #### L 700.6800, L500.2500, L100.0100 ####[facility] [address] [place], [address] Potassium [Moles/Vol] 3.6 mmol/L Normal 3.3-5.1 [facility] Comment on above: Performed By: #### L 700.6800, L500.2500, L100.0100 ####[facility] [address] [place], [address] Sodium [Moles/Vol] 136 mmol/L Normal 133-145 [facility] Comment on above: Performed By: #### L 700.6800, L500.2500, L100.0100 ####[facility] [address] [place], [address] Urea nitrogen [Mass/Vol] 14 mg/dL Normal 4-19 [facility] Comment on above: Performed By: #### L 700.6800, L500.2500, L100.0100 ####[facility] [address] [place], [address] CBC W/Diff, Automatedon 03-0 1-2024 Absolute Lymph 2.81 X10 3/uL Normal 0.83-4.51 [facility] Comment on above: Performed By: #### L 700.6800, L500.2500, L100.0100 ####[facility] [address] [place], [address] Absolute Neut 9.5 X10 3/uL High 2.0-7.7 [facility] Comment on above: Performed By: #### L 700.6800, L500.2500, L100.0100 ####[facility] [address] [place], [address] Basophils/100 WBC (Bld) 0.5 % Normal 0-1 [facility] Comment on above: Performed By: #### L 700.6800, L500.2500, L100.0100 ####[facility] [address] [place], [address] Eosinophils/100 WBC (Bld) 0.4 % Normal 0-5 [facility] Comment on above: Performed By: #### L 700.6800, L500.2500, L100.0100 ####[facility] [address] [place], [address] Erythrocyte distribution width (RBC) [Ratio] 12.8 % Normal 11.6-14.6 [facility] Comment on above: Performed By: #### L 700.6800, L500.2500, L100.0100 ####[facility] [address] [place], [address] Hematocrit (Bld) [Volume fraction] 42.7 % Normal 37-47 [facility] Comment on above: Performed By: #### L 700.6800, L500.2500, L100.0100 ####[facility] [address] [place], [address] Hemoglobin (Bld) [Mass/Vol] 14.5 g/dL Normal 12.0-15.0 [facility] Comment on above: Performed By: #### L 700.6800, L500.2500, L100.0100 ####[facility] [address] [place], [address] IG% 0.300 Normal 0.0-0.9 [facility] Comment on above: Result Comment: IG% - Immature Granulocytes (promyelocytes, myelocytes and metamyelocytes) > 1% indicates that a LEFT SHIFT is Present. Performed By: #### L 700.6800, L500.2500, L100.0100 ####[facility] [address] [place], [address] Lymphocytes/100 WBC (Bld) 21.0 % Normal 19-41 [facility] Comment on above: Performed By: #### L 700.6800, L500.2500, L100.0100 ####[facility] [address] [place], [address] MCH (RBC) [Entitic mass] 28.4 pg Normal 27.0-32.0 [facility] Comment on above: Performed By: #### L 700.6800, L500.2500, L100.0100 ####[facility] [address] [place], [address] MCHC (RBC) [Mass/Vol] 34.0 g/dL Normal 32-36 [facility] Comment on above: Performed By: #### L 700.6800, L500.2500, L100.0100 ####[facility] [address] [place], [address] MCV (RBC) [Entitic vol] 83.6 fL Normal 81-99 [facility] Comment on above: Performed By: #### L 700.6800, L500.2500, L100.0100 ####[facility] [address] [place], [address] Monocytes/100 WBC (Bld) 7.1 % Normal 0-10 [facility] Comment on above: Performed By: #### L 700.6800, L500.2500, L100.0100 ####[facility] [address] [place], [address] Neutrophils/100 WBC (Bld) 70.7 % High 47-70 [facility] Comment on above: Performed By: #### L 700.6800, L500.2500, L100.0100 ####[facility] [address] [place], [address] Nucleated RBC (Bld) [#/Vol] 0 10*3/uL Normal 0-5 [facility] Comment on above: Performed By: #### L 700.6800, L500.2500, L100.0100 ####[facility] [address] [place], [address] Platelet mean volume (Bld) [Entitic vol] 9.2 fL Normal 6.2-12.0 [facility] Comment on above: Performed By: #### L 700.6800, L500.2500, L100.0100 ####[facility] [address] [place], [address] Platelets (Bld) [#/Vol] 376 10*3/uL Normal 150-450 [facility] Comment on above: Performed By: #### L 700.6800, L500.2500, L100.0100 ####[facility] [address] [place], [address] RBC (Bld) [#/Vol] 5.11 10*6/uL Normal 4.2-5.4 [facility] Comment on above: Performed By: #### L 700.6800, L500.2500, L100.0100 ####[facility] [address] [place], [address] RDW SD 38.3 fl Normal 35.1-43.9 [facility] Comment on above: Performed By: #### L 700.6800, L500.2500, L100.0100 ####[facility] [address] [place], [address] WBC (Bld) [#/Vol] 13.4 10*3/uL High 4.4-11.0 [facility] Comment on above: Performed By: #### L 700.6800, L500.2500, L100.0100 ####[facility] [address] [place], [address] CNOVon 08-22-2024 CNOV Office Visit (UCWSTR ) YAMIL NG ([id number]) 1985 F Date Time Provider Department 08/22/24 2:30 PM WOODROW COBURN [facility] During your visit today, we recorded the following information about you: Temperature Pulse Blood pressure Weight 98.6 degrees 98/minute 124/80 68.4 kg Woodrow Coburn APRN.TRACK WATCHMAN 08/22/2024 3:09 PM Signed Subjective HPI Nontoxic-appearing 39-year-old female presents urgent care chief plaint possible UTI. Duration of symptoms 3 days. Associated symptoms dysuria frequency and pressure. History of UTIs this feels similar. OTC medications none recently. Denies any vomiting abdominal pain . No fevers vaginal discharge itching or burning. Is not . Is not breast-feeding. Past medical history prescription medications allergies reviewed. .Patient presents with: UTI PAST MEDICAL HISTORY Diagnosis Date Anemia Complication of anesthesia nausea and vomiting Episode of recurrent major depressive disorder (HCC) 08/28/2018 Family history of epilepsy aunt Hepatic hemangioma 01/20/2024 Hepatitis in viral diseases classified elsewhere(573.1) when she had mono PMH - PAST MEDICAL HISTORY OF Right Sciatica Seizure disorder (HCC) 02/04/2018 PAST SURGICAL HISTORY Procedure Laterality Date DELIVERY ONLY , low cervical x4 DELIVERY ONLY 10/14/2016 EXCISION GANGLION WRIST DORSAL/VOLAR PRIMARY Right HYSTEROSCOPY ENDOMETRIAL ABLATION N/A 02/28/2023 KNEE SURGERY HX Right shaved patella and removed fat pad LAP HYSTERECTOMY FOR UTERUS 250G OR LESS 09/04/2023 LIG/TRNSXJ FLP TUBE ABDL/VAG APPR UNI/BI Bilateral 10/14/2016 VAGINAL CUFF REPAIR 09/22/2023 exam under anesthesia, pelvic irrigation and insertion of intraabdominal drain ALLERGIES Bleach (Sodium Hypochlorite), Lamictal [Lamotrigine], [place] [Trees], Topiramate, and Tree And Shrub Pollen MEDICATIONS Clobetasol Propionate (TEMOVATE) 0.05 % external solution Apply to affected areas on scalp twice daily Saturday-Saturday, take weekends off. May repeat as needed. triamcinolone acetonide (KENALOG) 0.1 % cream Apply to affected areas twice daily for 2 weeks. lacosamide (VIMPAT) 150 mg tab Take 1 tablet by mouth two times a day for 180 days. levETIRAcetam (KEPPRA) 1,000 mg tablet Take 1 tablet by mouth two times a day. fremanezumab-vfrm (UrbanTakeoverOVY AUTOINJECTOR) 225 mg/1.5 mL auto-injector Inject 1.5 mL subcutaneously once every month. Do not shake. rizatriptan (MAXALT) 10 mg tablet Take 1 tablet (10 mg) by mouth as needed (at onset of headache. May repeat after 2 hours.). Do not exceed 30 mg per day. omeprazole (PRILOSEC) 40 mg capsule Take 1 capsule by mouth two times a day. [DISCONTINUED] topiramate (TOPAMAX) 25 mg tablet Take by mouth. One tablet twice daily for a week; then two tablets twice daily thereafter. FAMILY HISTORY Problem Relation Age of Onset Hypertension Father Diabetes Father Hyperlipidemia Father Cataract Father other (FIBROMYALGIA) Sister Pancreatitis Sister Cancer Maternal Grandmother Breast Cancer Paternal Grandmother Heart Paternal Grandmother Stroke Paternal Grandfather Diabetes Maternal Aunt Anesthesia Problems No Family History Clotting Disorder No Family History Malig Hyperthermia No Family History Social History Tobacco Use Smoking status: Never Smokeless tobacco: Never Vaping Use Vaping status: Never Used Substance Use Topics Alcohol use: Yes Comment: occasional Drug use: No BP 124/80 Pulse 98 Temp 37 ?C (98.6 ?F) Wt 68.4 kg (150 lb 12.7 oz) LMP 07/17/2023 (Exact Date) BMI 26.10 kg/m? Review of Systems Constitutional: Negative for chills, fever and malaise/fatigue. Cardiovascular: Negative for chest pain. Gastrointestinal: Positive for nausea. Negative for abdominal pain, constipation, diarrhea and vomiting. Genitourinary: Positive for dysuria, frequency and urgency. Negative for flank pain and hematuria. Musculoskeletal: Negative for myalgias. Objective Physical Exam Vitals and nursing note reviewed. Constitutional: General: She is not in acute distress. Appearance: She is not diaphoretic. HENT: Head: Jaw: No trismus. Right Ear: Hearing normal. No decreased hearing noted. No drainage, swelling or tenderness. Tympanic membrane is not perforated, erythematous or bulging. Left Ear: Hearing normal. No decreased hearing noted. No drainage, swelling or tenderness. Tympanic membrane is not perforated, erythematous or bulging. Mouth/Throat: Pharynx: Uvula midline. No uvula swelling. Tonsils: No tonsillar abscesses. Cardiovascular: Rate and Rhythm: Normal rate and regular rhythm. Pulses: Normal pulses. Pulmonary: Effort: Pulmonary effort is normal. No respiratory distress. Breath sounds: Normal breath sounds. Chest: Chest wall: No tenderness. Abdominal: General: Bowel sounds ar (more content not included)... Normal [facility] Emergency Department Summary on 08-22-2024 Emergency Department Summary [facility] Medical Records Department [address] [place] [address] Emergency Department Summary 08/22/24 MR#: [id number] Acct: [id number] Name: YAMIL NG Rep #: [id number] : 1985 39 From: Robert Belcher DO PCP: Dr. Skip Ignacio MD Status:REG ER Location: ED HPI History of Present Illness Chief Complaint: Flank Pain Informant: patient Onset/Context/Timing Onset: Today Context: Gradual Onset Timing: Continuous Quality: Sharp, aching Location: Left flank Current Severity: Severe Maximum Severity: Severe Worsened by: Nothing Relieved by: Nothing Narrative Narrative: Patient presents with left flank pain that began today. Patient states she went to urgent care today. Patient states that they told her if her pain became worse that she should come to the emergency department. Patient states her pain has been getting progressively worse. Patient describes it as sharp and aching. Patient states it is over the left flank. Patient states nothing makes it better and nothing makes it worse. Patient admits to some nausea and vomiting. Patient admits to some subjective chills. Patient denies any dysuria or hematuria. [facility] Medical History Dehiscence of vaginal cuff Ganglion cyst Ureteral stone Anxiety Epilepsy Home Medications ???Medication ???Instructions ???Recorded ???Last Taken ???Type levetiracetam 500 mg tablet 1,000 mg PO BID 08/25/21 Unknown H istory cephalexin 500 mg capsule 500 mg PO BID 5 days #10 caps 07/17 Unknown Rx lacosamide 150 mg tablet 150 mg PO BID 05/24/24 Unknown His tory omeprazole 40 mg capsule,delayed 40 mg PO BID 05/24/24 Unknown Hist ory release hydrocodone-acetaminop hen 5-325mg 1 tab PO Q6H PRN PRN Pain 3 days 08/22/24 Unknown Rx 5mg-325mg #10 TABLETS ondansetron 4 mg disintegrating 4 mg PO Q8H PRN PRN Nausea #10 tab s 08/22/24 Unknown Rx tablet Allergy/AdvReac Type Severity Reaction Status Date / Time Bleach (Sodium Hypochlorite) Allergy Hives Verified 08/22/24 21:12 lamotrigine (From Lamictal) Allergy Rash Verified 08/22/24 21:12 tree and shrub pollen Allergy Hives Verified 08/22/24 21:12 Surgical History S/P hysterectomy Previous section H/O right knee surgery H/O: hysterectomy Social History household members: spouse Smoking Status: Never smoker substance use type: does not use ROS ROS ED Constitutional Constitutional ED: Reports chills; Denies fever(s) Eyes Eyes: Denies blurry vision or change in vision ENT ENT ED: Denies rhinorrhea or sore throat Cardiovascular Cardiovascular: Denies chest pain or palpitations Respiratory/Chest Respiratory/Chest: Denies cough or dyspnea Gastrointestinal Gastrointestinal: Reports nausea and vomiting Genitourinary Genitourinary ED: Denies dysuria or hematuria Musculoskeletal Musculoskeletal: Reports back pain; Denies neck pain Integumentary Denies abscess or rash Neurologic Neurologic: Denies headache(s) or weakness Allergic/Immunologic Allergic/Immunologic ED: Denies mouth swelling or urticaria EXAM Physical Exam Const Vital Signs: 08/22/24 21:13 Temperature 97 F L Temperature Source Temporal Pulse Rate 99 Respiratory Rate 15 Blood Pressure 105/85 H Blood Pressure Mean 91 Pulse Ox 98 Oxygen Delivery Method Room Air Positive well nourished and well developed General Appearance ED: well developed and NAD HEENT Reports moist mucous membranes Neck supple and no JVD Resp normal respiratory effort and clear to auscultation bilaterally Cardio regular rate and regular rhythm GI non-tender and non-distended Palpation: soft Back/Spine General Back: CVA tenderness left Neuro oriented x3, CN's II-XII intact bilaterally and no sensory deficits noted Sensorium / Orientation: alert Motor Exam: strength 5/5 throughout Psych mental status grossly normal MDM MDM MDM Narrative Medical decision making narrative: Differential diagnosis includes ureteral calculus, pyelonephritis, urinary tract infection, diverticulitis, and musculoskeletal back pain. CBC will be obtained to assess for leukocytosis and anemia. Patient metabolic profile also returned electrolyte abnormality renal function. Assess for urinary tract infection and hematuria. CT scan of the pelvis will be obtained to assess for ureteral calculus and pyelonephritis. Lab Data Attestation: I reviewed the patient's lab results. Lab results narrative: CBC was reviewed. There is a mild leukocytosis of 13.4. The remainder is within normal limits. Basic metabolic profile was reviewed and was ess (more content not included)... Normal [facility] ,Serum,hCG Quali.on 08-22-2024 HCG, SERUM QUAL Negative Normal [facility] Comment on above: Performed By: #### L 700.6800, L500.2500, L100.0100 ####[facility] [address] [place], [place], [id number] UA DIP, URINE (POC)on 2024 BILIRUBIN UA (POCT) Negative Negative [facility] CLARITY UA (POCT) Slightly Cloudy Cl [facility] COLOR UA (POCT) Yellow [facility] GLUCOSE UA (POCT) Negative Negative mg/dL [facility] Hemoglobin Ql (U) Small Abnormal Negative [facility] [place] Interpretation and review of laboratory results Abnormal [facility] KETONE UA (POCT) Negative Negative mg/dL [facility] LEUKOCYTES UA (POCT) Small Abnormal Negative [facility] NITRITE UA (POCT) Negative Negative [facility] PH UA (POCT) 5.5 4.5 - 8.0 [facility] Protein Ql (U) 100 mg/dL Abnormal Negative [facility] SPECIFIC GRAVITY UA (POCT) 1.015 1.005 - 1.030 [facility] UROBILINOGEN UA (POCT) 0.2 Janett l E.U./dL [facility] Location:[facility], [address] [place] [address], [place], [address] [facility] POINT [facility] CARE [facility] Urinalysis, Completeon 08-22 EPI,SQUAMOUS 0-5 SEEN Normal 5-10 [facility] Comment on above: Order Comment: CLEAN CATCH Performed By: #### L [id number] #### [facility] [address] [place], [address] RBC 0-5 SEEN Normal 0-5 [facility] Comment on above: Order Comment: CLEAN CATCH Performed By: #### L [id number] #### [facility] [address] [place], [address] WBC 5-10 SEEN Normal 0-5 [facility] Comment on above: Order Comment: CLEAN CATCH Performed By: #### L [id number] #### [facility] [address] [place], [address] Mucus Ql (Urine sed) 0 SEEN Normal [facility] Comment on above: Order Comment: CLEAN CATCH Performed By: #### L [id number] #### [facility] [address] [place], [place], [address] CNOVon 08-05-2024 CNOV Office Visit (WSTR ) YAMIL NG ([id number]) 1985 F Date Time Provider Department 08/05/24 9:45 AM ANA FELICIANO [facility] During your visit today, we recorded the following information about you: Temperature Pulse Respiration Blood pressure 100.8 degrees 104/minute 18/minute 96/71 Weight 68.5 kg Ana Feliciano PA 08/05/2024 10:28 AM Signed This note was created using NoteWriter. Brandy Boston Hernandez is a 38 year old female. HPI 38-year-old female presents for sore throat, fever, body aches since last night. Patient states that yesterday evening she started getting sore throat. She had a fever of 101.8 ?F. She states that she is still able to drink fluids, but hurts to swallow. She has not had a cough, just feels the need to clear her throat. No congestion. Potential sick contacts. One of her kids was sick last week with cold symptoms. Patient took Tylenol around 1 AM for the fever. Has not taken anything else for symptoms. No other complaint. PAST MEDICAL HISTORY Diagnosis Date Anemia Complication of anesthesia nausea and vomiting Episode of recurrent major depressive disorder (HCC) 08/28/2018 Family history of epilepsy aunt Hepatic hemangioma 01/20/2024 Hepatitis in viral diseases classified elsewhere(573.1) when she had mono PMH - PAST MEDICAL HISTORY OF Right Sciatica Seizure disorder (HCC) 02/04/2018 PAST SURGICAL HISTORY Procedure Laterality Date DELIVERY ONLY , low cervical x4 DELIVERY ONLY 10/14/2016 EXCISION GANGLION WRIST DORSAL/VOLAR PRIMARY Right HYSTEROSCOPY ENDOMETRIAL ABLATION N/A 02/28/2023 KNEE SURGERY HX Right shaved patella and removed fat pad LAP HYSTERECTOMY FOR UTERUS 250G OR LESS 09/04/2023 LIG/TRNSXJ FLP TUBE ABDL/VAG APPR UNI/BI Bilateral 10/14/2016 VAGINAL CUFF REPAIR 09/22/2023 exam under anesthesia, pelvic irrigation and insertion of intraabdominal drain ALLERGIES Bleach (Sodium Hypochlorite), Lamictal [Lamotrigine], [place] Trees [Trees], Topiramate, and Tree And Shrub Pollen MEDICATIONS Clobetasol Propionate (TEMOVATE) 0.05 % external solution Apply to affected areas on scalp twice daily Saturday-Saturday, take weekends off. May repeat as needed. triamcinolone acetonide (KENALOG) 0.1 % cream Apply to affected areas twice daily for 2 weeks. lacosamide (VIMPAT) 150 mg tab Take 1 tablet by mouth two times a day for 180 days. levETIRAcetam (KEPPRA) 1,000 mg tablet Take 1 tablet by mouth two times a day. fremanezumab-vfrm (AJOVY AUTOINJECTOR) 225 mg/1.5 mL auto-injector Inject 1.5 mL subcutaneously once every month. Do not shake. rizatriptan (MAXALT) 10 mg tablet Take 1 tablet (10 mg) by mouth as needed (at onset of headache. May repeat after 2 hours.). Do not exceed 30 mg per day. omeprazole (PRILOSEC) 40 mg capsule Take 1 capsule by mouth two times a day. [DISCONTINUED] topiramate (TOPAMAX) 25 mg tablet Take by mouth. One tablet twice daily for a week; then two tablets twice daily thereafter. FAMILY HISTORY Problem Relation Age of Onset Hypertension Father Diabetes Father Hyperlipidemia Father Cataract Father other (FIBROMYALGIA) Sister Pancreatitis Sister Cancer Maternal Grandmother Breast Cancer Paternal Grandmother Heart Paternal Grandmother Stroke Paternal Grandfather Diabetes Maternal Aunt Anesthesia Problems No Family History Clotting Disorder No Family History Malig Hyperthermia No Family History Social History Tobacco Use Smoking status: Never Smokeless tobacco: Never Vaping Use Vaping status: Never Used Substance Use Topics Alcohol use: Yes Comment: occasional Drug use: No Review of Systems Constitutional: Positive for chills and fever. HENT: Positive for sore throat. Negative for congestion and ear pain. Respiratory: Negative for cough and shortness of breath. Cardiovascular: Negative for chest pain. Gastrointestinal: Negative for diarrhea and vomiting. Musculoskeletal: Positive for myalgias. Objective BP 96/71 Pulse 104 Temp (!) 38.2 ?C (100.8 ?F) Resp 18 Wt 68.5 kg (151 lb 0.2 oz) LMP 07/17/2023 (Exact Date) SpO2 100% BMI 26.13 kg/m? Physical Exam Vitals and nursing note reviewed. Constitutional: General: She is not in acute distress. Appearance: Normal appearance. She is not toxic-appearing. HENT: Right Ear: Tympanic membrane and ear canal normal. Left Ear: Tympanic membrane and ear canal normal. Nose: Nose normal. Mouth/Throat: Mouth: Mucous membranes are moist. Pharynx: Uvula midline. Posterior oropharyngeal erythema present. Tonsils: Tonsillar exudate present. 2+ on the right. 2+ on the left. Eyes: Conjunctiva/sclera: Conjunctivae normal. Cardiovascular: Rate and Rhythm: Normal rate and regular rhythm. Pulmonary: Effort: Pulmonary effort is normal. Breath sounds: Normal breath sounds. Lymphadenopat (more content not included)... Normal [facility] STREP A MOLECULAR (POC)on Interpretation and review of laboratory results Abnormal [facility] Procedural Control Valid [facility] Strep A (POCT) Positive Abnormal Negative [facility] CNOVon 08-04-2024 CNOV Office Visit (DERMST ) YAMIL NG ([id number]) 1985 F Date Time Provider Department 08/04/24 7:15 AM SUZANNE CHEN DERM During your visit today, we recorded the following information about you: Suzanne Chen APRN.CNP 08/04/2024 8:01 AM Signed NEW PATIENT Chief Complaint: Rash History of Present Ilness: Yamil Boston Hernandez is a 38 year old female who presents today for a rash Rash Location: groin Duration: ~2 months Symptoms/Course: no improvement Current Treatment: miconazole nitrate 2% x 2 weeks Past Treatment: lotrisone and tinactin Anything new or different prior to onset of rash: spread Any exacerbating or alleviating factors: none She denies any new medications Psoriasis Location: scalp Duration: years Symptoms: itchy and spread to left forearm Current Treatment: ketoconazole shampoo once per week Past Treatment: none History of psoriatic arthritis: No Family history of psoriasis: Yes, father Psoriasis Epidemiology Screening Tool (PEST) Have you ever had a swollen joint (or joints)? No Has a provider ever told you that you have arthritis? Yes Do your fingernails or toenails have holes or pits? No Have you had pain in your heel? No Have you had a finger or toe that was completely swollen and painful for no apparent reason? No Pertinent History: History of skin cancer: No History of atypical nevi: No History of immunosuppression/orga n transplant: No , planning , or ? No Pertinent Family medical history: History of melanoma: No History of non melanoma skin cancer: No Other family history (autoimmune, dermatologic, etc): sister-fibromyalgia Past Medical History is reviewed. Medication List is reviewed. ROS: Skin as above. Physical Exam: Selby skin type: II The patient is a pleasant female in no apparent distress. Alert and oriented x 3. A skin exam performed of the scalp, bilateral upper extremities, and genitals is significant for: Scalp Erythematous scaly plaque to left frontal scalp Left Inframammary Fold, Pubic, Right Inframammary Fold Well demarcated erythematous scaly papules and plaques to right anterior thigh extending to right pubic area. Inguinal crease is spared. Assessment and Plan: PSORIASIS VULGARIS Scalp Discussed etiology and chronic nature of disease. Discussed importance of following up with labwork and regular evaluation with PCP due to association of psoriasis with increased risk of cardiometabolic disease (heart disease, HTN, diabetes mellitus). Continue ketoconazole 2% shampoo, advised to increase usage to 2-3 times per week Start clobetasol 0.05% solution twice daily Saturday-Saturday, take weekends off Discussed proper use of medications and potential side effects. Related Medications Clobetasol Propionate (TEMOVATE) 0.05 % external solution Apply to affected areas on scalp twice daily Saturday-Saturday, take weekends off. May repeat as needed. 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 She has previously failed treatment with miconazole cream, tinactin, and lotrisone. Discussed potential etiologies, course, and treatment options Recommend trial of triamcinolone 0.1% cream twice daily for 2 weeks on, one week off. May repeat as needed. Biopsy in reserve Related Medications triamcinolone acetonide (KENALOG) 0.1 % cream Apply to affected areas twice daily for 2 weeks. Follow up: 4 weeks Intake completed by Kristen Reveles LPN The documentation for this note was completed by Kristen Reveles LPN acting as scribe for Suzanne Chen APRN.CNP. I agree with the Chief Complaint, ROS, and Past Histories independently gathered by the clinical sales support representative and the remaining scribed note accurately describes my personal service to the patient. Suzanne Chen APRN.CNP Allergies As of Date: 08/04/2024 Noted Allergy Reaction BLEACH (SODIUM HYPOCHLORITE) 03/22/2016 2 - Rash LAMICTAL (LAMOTRIGINE) 06/16/2018 2 - Rash PINE TREES (TREES) 03/22/2016 2 - Rash 4 - Hives TOPIRAMATE 06/07/2023 2 - Rash TREE AND SHRUB POLLEN 09/22/2023 16 - Unknown Date Reviewed: 08/04/2024 Reviewed by: Kristen Reveles LPN - Fully Assessed Reason for Visit: Rash [1087] Primary Visit Diagnosis:Psoriasis vulgaris [L40.0] Other Visit Diagnosis:Rash and nonspecific skin eruption [R21] Order(s):Clobetasol Propionate (TEMOVATE) 0.05 % external solutionApply to affected areas on scalp twice daily Saturday-Saturday, take weekends off. May repeat as needed.Disp: 50 mLRfl: 3 triamcinolone acetonide (KENALOG) 0.1 % creamApply to affected areas twice daily for 2 weeks.Disp: 80 gRfl: 1 Prescriptions as of 08/04/2024 - Clobetasol Propionate (TEMOVATE) 0.05 % external solution Apply to affected (more content not included)... Normal [facility] CNPMarlena 07-29-2024 CNPN Telephone (DERMST) YAMIL NG ([id number]) 1985 F Date Time Provider Department 07/29/24 SUZANNE CHNE During your visit today, we recorded the following information about you: Nilay Darline Johnston 07/29/2024 4:27 PM Signed Pt calling because she has an appt on Saturday for Psoriasis of scalp [L40.9] Atopic dermatitis of scalp [L20.9] . She also has a rash on on her right upper thigh up to her vagina. Her PCP told her to see dermatology for this. She is asking if this can be addressed on Saturday. Please call to let her know. Thank you! Cristy Williamson RN 07/30/2024 9:10 AM Signed A call was placed to the patient and a message was left for the patient to call our office. I requested that the patient leave phone number and best time to reach with PSS. Luci Spangler 07/30/2024 9:30 AM Signed Patient returning call please call back at [phone] after 2pm thanks! Cristy Williamson, RN 07/30/2024 2:07 PM Signed Spoke with patient. Patient rescheduled appropriately. Allergies As of Date: 07/29/2024 Noted Allergy Reaction BLEACH (SODIUM HYPOCHLORITE) 03/22/2016 2 - Rash LAMICTAL (LAMOTRIGINE) 06/16/2018 2 - Rash PINE TREES (TREES) 03/22/2016 2 - Rash 4 - Hives TOPIRAMATE 06/07/2023 2 - Rash TREE AND SHRUB POLLEN 09/22/2023 16 - Unknown Date Reviewed: 07/16/2024 Reviewed by: Ping Calvo MA - Fully Assessed Reason for Visit: Patient Question [4847] Prescriptions as of 07/30/2024 - lacosamide (VIMPAT) 150 mg tab Take 1 tablet by mouth two times a day for 180 days. - levETIRAcetam (KEPPRA) 1,000 mg tablet Take 1 tablet by mouth two times a day. - fremanezumab-vfrm (AJOVY AUTOINJECTOR) 225 mg/1.5 mL auto-injector Inject 1.5 mL subcutaneously once every month. Do not shake. - rizatriptan (MAXALT) 10 mg tablet Take 1 tablet (10 mg) by mouth as needed (at onset of headache. May repeat after 2 hours.). Do not exceed 30 mg per day. - omeprazole (PRILOSEC) 40 mg capsule Take 1 capsule by mouth two times a day. - topiramate (TOPAMAX) 25 mg tablet (Discontinued) Take by mouth. One tablet twice daily for a week; then two tablets twice daily thereafter. 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] 03/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 Medication side effect [T88.7XXA] 03/12/2018 04/24/2019 Encounter for monitoring anticonvulsant therapy*03/12/2018 Vitamin D deficiency [E55.9] 06/15/2018 URI (obstructive sleep apnea) [G47.33] 08/28/2018 Anxiety [F41.9] 08/28/2018 Episode of recurrent major depressive disorder *08/28/2018 Splenomegaly [R16.1] 03/20/2019 Anemia [D64.9] 03/20/2019 Ganglion cyst of wrist, right [M67.431] 04/24/2019 Acute pain of right knee [M25.561] 09/20/2020 Plica of knee, right [M67.51] 02/20/2021 02/20/2021 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 GERD (gastroesophageal reflux disease) [K21.9] 02/13/2023 Menorrhagia with irregular cycle [N92.1] 02/28/2023 Unable to empty bladder [R33.9] 07/16/2024 Encounter Status:Closed by CRISTY WILLIAMSON on 07/30/24 Normal [facility] CNOVon 07-16-2024 CNOV Office Visit (OBGYWM ) YAMIL NG ([id number]) 1985 F Date Time Provider Department 07/16/24 2:45 PM JEFFY MATHEWS OBGYWForeign During your visit today, we recorded the following information about you: Blood pressure Weight 110/60 70.8 kg Mary Mathewssb BLOCKLAYER.WINSTON 07/16/2024 3:45 PM Signed Accounts Receivable Executive offered: Patient declines. Yamil Ng is a 38 year old female who presents for problem visit rash in groin for 4 week(s). She was seen in office 2 weeks ago and has been using Lotrisone cream to area without relief. C/O redness, dry patches that are now starting to become itchy. She was told to return if no improvement. She also reports recently having difficulty emptying bladder fully. Denies any dysuria or hematuria. Desires urine dip today. REVIEW OF SYSTEMS Abdomen: No bloating, early satiety, indigestion, or increased flatulence. No abdominal pain, nausea, vomiting, diarrhea, or constipation. Bladder: No dysuria, gross hematuria, urinary frequency, urinary urgency, or incontinence. Breast: No breast lumps, nipple d/c, overlying skin changes, redness or skin retraction. Expanded ROS: N/A Allergies and current medication updated:Yes SENSITIVE EXAM: The sensitive examination was discussed with the Patient or Patient's Authorized Iron Erector. As applicable, any other physician, advance practice provider, medical student, or other health professional student that will be observing or involved in the sensitive examination for educational or training purposes was discussed with the Patient or Authorized Iron Erector. The Patient or Authorized Iron Erector has agreed to proceed with the sensitive examination. (Sensitive examination includes inspection and/or palpation of the breasts, pelvis, prostate and anorectal regions). EXAM: BP 110/60 Wt 156 lb (70.8kg) LMP 07/17/2023 GENERAL: pleasant, female in no apparent distress ABDOMEN: soft, non-tender, and no masses PELVIC: external genitalia normal, normal Bartholin's glands, urethra, [place]'s glands, no vulvar lesions, no cervical lesions, good vaginal support, physiologic discharge present, normal appearing perineal body and perianal region Right side groin area and outer mons pubis- areas of red, dry, scaly skin. No bumps or lesions. ASSESSMENT AND PLAN: Assessment AND Plan Tinea corporis Skin rash - Rx Miconazole 2% cream to area BID - If remains present or worsens, recommend appointment with PCP / Dermatology - Patient agrees with plan of care Jeffy Mathews APRN.CNM Allergies As of Date: 07/16/2024 Noted Allergy Reaction BLEACH (SODIUM HYPOCHLORITE) 03/22/2016 2 - Rash LAMICTAL (LAMOTRIGINE) 06/16/2018 2 - Rash PINE TREES (TREES) 03/22/2016 2 - Rash 4 - Hives TOPIRAMATE 06/07/2023 2 - Rash TREE AND SHRUB POLLEN 09/22/2023 16 - Unknown Date Reviewed: 07/16/2024 Reviewed by: Ping Calvo MA - Fully Assessed Reason for Visit: Vaginal Problem [117] Primary Visit Diagnosis:Tinea corporis [B35.4] Other Visit Diagnoses:Skin rash [R21] Unable to empty bladder [R33.9] Order(s):miconazole 2 % creamApply to affected area two times a day for 7 days.Disp: 28 gRfl: 0 UA DIP, URINE (POC) [6228824] Order #: [id number]. #:[id number] CONSULT TO DERMATOLOGY [9006] Order #: [id number]: 1 FUTURE Prescriptions as of 07/16/2024 - miconazole 2 % cream Apply to affected area two times a day for 7 days. - lacosamide (VIMPAT) 150 mg tab Take 1 tablet by mouth two times a day for 180 days. - levETIRAcetam (KEPPRA) 1,000 mg tablet Take 1 tablet by mouth two times a day. - fremanezumab-vfrm (AJOVY AUTOINJECTOR) 225 mg/1.5 mL auto-injector Inject 1.5 mL subcutaneously once every month. Do not shake. - rizatriptan (MAXALT) 10 mg tablet Take 1 tablet (10 mg) by mouth as needed (at onset of headache. May repeat after 2 hours.). Do not exceed 30 mg per day. - omeprazole (PRILOSEC) 40 mg capsule Take 1 capsule by mouth two times a day. - topiramate (TOPAMAX) 25 mg tablet (Discontinued) Take by mouth. One tablet twice daily for a week; then two tablets twice daily thereafter. 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 Normal [facility] UA DIP, URINE (POC)on 2024 BILIRUBIN UA (POCT) Negative Negative [facility] CLARITY UA (POCT) Clear [facility] COLOR UA (POCT) Other [facility] GLUCOSE UA (POCT) Negative Negative mg/dL [facility] Hemoglobin Ql (U) Negative [facility] KETONE [facility]A (POCT) Negative Negative mg/dL [facility] LEUKOCYTES UA (POCT) Negative [facility] NITRITE UA (POCT) Negative Negative [facility] PH UA (POCT) 7.0 4.5 - 8.0 [facility] Protein Ql (U) Negative Negative mg/dL [facility] SPECIFIC GRAVITY UA (POCT) 1.010 1.005 - 1.030 [facility] UROBILINOGEN UA (POCT) 0.2 Janett l E.U./dL [facility] Location:[facility], [address], [place], [address] [facility] CNOVon 07-01-2024 CNOV Office Visit (FAMPWS ) YAMIL NG ([id number]) 1985 F Date Time Provider Department 07/01/24 2:00 PM CRISTY DUNBAR During your visit today, we recorded the following information about you: Pulse Respiration Blood pressure Weight 80/minute 16/minute 96/64 69.8 kg Height 1.619 m Cristy Dunbar APRN.TRACK WATCHMAN 07/01/2024 2:53 PM Signed 07/01/2024 Patient presents with: Physical SUBJECTIVE: This is a 38 year old that is here today for Above Complaints. Follows with neurology for hx of seizures and headaches Last follow-up on 05/22/2024. Ordered Qulipta but insurance denies. Patient reports was ordered an injectable but [facility] never said anything about having a prescription for it when she picked up her other medication.Follow-up scheduled for 09/15/2024. No seizure activity for 5-6 months GERD: taking Omeprazole as prescribed without side effects. Has days it may not work. Started with some online counseling for depression. No interested in medication at this time. Denies SI or HI PAST MEDICAL HISTORY Diagnosis Date Anemia Complication of anesthesia nausea and vomiting Episode of recurrent major depressive disorder (HCC) 08/28/2018 Family history of epilepsy aunt Hepatic hemangioma 01/20/2024 Hepatitis in viral diseases classified elsewhere(573.1) when she had mono PMH - PAST MEDICAL HISTORY OF Right Sciatica Seizure disorder (HCC) 02/04/2018 ALLERGIES Bleach (Sodium Hypochlorite), Lamictal [Lamotrigine], [place]rees [Trees], Topiramate, and Tree And Shrub Pollen MEDICATIONS Current Outpatient Medications Medication Sig levETIRAcetam (KEPPRA) 1,000 mg tablet Take 1 tablet by mouth two times a day. fremanezumab-vfrm (AJOVY AUTOINJECTOR) 225 mg/1.5 mL auto-injector Inject 1.5 mL subcutaneously once every month. Do not shake. rizatriptan (MAXALT) 10 mg tablet Take 1 tablet (10 mg) by mouth as needed (at onset of headache. May repeat after 2 hours.). Do not exceed 30 mg per day. MEDROL, DUSTY, 4 mg Dose-Pack Take it as prescribed on the package benzonatate (TESSALON PERLES) 100 mg capsule Take 1 capsule by mouth three times a day as needed. omeprazole (PRILOSEC) 40 mg capsule Take 1 capsule by mouth two times a day. lacosamide (VIMPAT) 150 mg tab Take 1 tablet by mouth two times a day for 180 days. promethazine (PHENERGAN) 25 mg tablet Take 1 tablet by mouth every 6 hours as needed for nausea/vomiting. (Patient not taking: Reported on 01/23/2024) No current facility-administered medications for this visit. Medications and allergies reviewed by this provider. SOCIAL HISTORY Social History Tobacco Use Smoking status: Never Smokeless tobacco: Never Vaping Use Vaping status: Never Used Substance Use Topics Alcohol use: Yes Comment: occasional Drug use: No REVIEW OF SYSTEMS GENERAL: No weight loss, malaise or fevers HEENT: No changes in hearing or vision, no nose bleeds or other nasal problems NECK: Negative for lumps, goiter, pain and significant neck swelling RESPIRATORY: Negative for cough, hemoptysis, wheezing, COPD, dyspnea or shortness of breath CARDIOVASCULAR: Negative for chest pain, leg swelling, hypertension, CHF or palpitations GI: No vomiting, or diarrhea and : No history of dysuria, frequency or incontinence PIPE PRODUCTION WORKER: Negative for abnormal vaginal bleeding, abnormal vaginal discharge MUSCULOSKELETAL: Negative for joint pain or swelling, back pain or muscle pain SKIN: Negative for lesions, rash, and itching PSYCH: Negative for sleep disturbance, mood disorder and recent psychosocial stressors HEMATOLOGY/LYMPHOLOGY: Negative for prolonged bleeding, bruising easily or swollen nodes ENDOCRINE: Negative for cold or heat intolerance, polyuria, polydipsia and goiter NEURO: No history of syncope, paralysis, or tremors All other reviewed and negative other than HPI. OBJECTIVE: BP 96/64 Pulse 80 Resp 16 Ht 161.9 cm (5' 3.74) Wt 69.8 kg (153 lb 14.1 oz) LMP 07/17/2023 (Exact Date) SpO2 96% BMI 26.63 kg/m? . Vital signs reviewed by this provider. APPEARANCE Well appearing, alert, in no acute distress, well-hydrated, well nourished. EYES conjunctiva and sclera normal. EARS External ears normal, canals clear NECK Supple, no adenopathy; thyroid symmetric, normal size, no bruits HEART RRR with normal S1 and S2, no murmurs, no gallops, no JVD appreciated LUNG clear to auscultation. No wheezes, rhonchi or rales ABDOMEN bowel sounds normoactive, no bruits, soft, non-tender, non-distended EXTREMITIES Extremities normal, No deformities, No skin discoloration, and No edema SKIN Skin color, texture, turgor normal, no suspicious rashes or lesions to exposed skin Hepatitis C Screening Never done Hepatitis B Vaccine(1 of 3 - 19+ 3-dose series) Never done Cervical Cancer Screening due on 11/24/2023 Mammogram Screening (more content not included)... Normal [facility] CNOVon 06-29-2024 CNOV Office Visit (OBGYWM ) YAMIL NG ([id number]) 1985 F Date Time Provider Department 06/29/24 2:50 PM HENRIQUE CUEVAS OBGYWM During your visit today, we recorded the following information about you: Blood pressure Weight 100/60 70.3 kg Henrique Cuevas MD 06/29/2024 3:47 PM Signed Accounts Receivable Executive offered: Patient accepts, visit chaperoned by Yoan Ceron MA. Yamil Diazny is a 38 year old female who presents for problem visit to evaluate right groin fold irritation/rash that has moved to within the underwear line over the course of 10-15 days. No tx thus far.. 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 History LMP: 07/17/2023 (Exact Date), Hysterectomy Age at Menarche: Age at First : Age at Menopause: Mending Carrier History Comments: Sexual Activity: Yes; Male; hyst Contraception: Vasectomy, Surgical PAST MEDICAL HISTORY Diagnosis Date Anemia Complication of anesthesia nausea and vomiting Episode of recurrent major depressive disorder (HCC) 08/28/2018 Family history of epilepsy aunt Hepatic hemangioma 01/20/2024 Hepatitis in viral diseases classified elsewhere(573.1) when she had mono PMH - PAST MEDICAL HISTORY OF Right Sciatica Seizure disorder (HCC) 02/04/2018 PAST SURGICAL HISTORY Procedure Laterality Date DELIVERY ONLY , low cervical x4 DELIVERY ONLY 10/14/2016 EXCISION GANGLION WRIST DORSAL/VOLAR PRIMARY Right HYSTEROSCOPY ENDOMETRIAL ABLATION N/A 02/28/2023 KNEE SURGERY HX Right shaved patella and removed fat pad LAP HYSTERECTOMY FOR UTERUS 250G OR LESS 09/04/2023 LIG/TRNSXJ FLP TUBE ABDL/VAG APPR UNI/BI Bilateral 10/14/2016 VAGINAL CUFF REPAIR 09/22/2023 exam under anesthesia, pelvic irrigation and insertion of intraabdominal drain FAMILY HISTORY Problem Relation Age of Onset Hypertension Father Diabetes Father Hyperlipidemia Father Cataract Father other (FIBROMYALGIA) Sister Pancreatitis Sister Cancer Maternal Grandmother Breast Cancer Paternal Grandmother Heart Paternal Grandmother Stroke Paternal Grandfather Diabetes Maternal Aunt Anesthesia Problems No Family History Clotting Disorder No Family History Malig Hyperthermia No Family History Social History Tobacco Use Smoking status: Never Smokeless tobacco: Never Vaping Use Vaping status: Never Used Substance Use Topics Alcohol use: Yes Comment: occasional Drug use: No Current Outpatient Medications Medication Sig levETIRAcetam (KEPPRA) 1,000 mg tablet Take 1 tablet by mouth two times a day. fremanezumab-vfrm (AJOVY AUTOINJECTOR) 225 mg/1.5 mL auto-injector Inject 1.5 mL subcutaneously once every month. Do not shake. omeprazole (PRILOSEC) 40 mg capsule Take 1 capsule by mouth two times a day. lacosamide (VIMPAT) 150 mg tab Take 1 tablet by mouth two times a day for 180 days. rizatriptan (MAXALT) 10 mg tablet Take 1 tablet (10 mg) by mouth as needed (at onset of headache. May repeat after 2 hours.). Do not exceed 30 mg per day. MEDROL, DUSTY, 4 mg Dose-Pack Take it as prescribed on the package benzonatate (TESSALON PERLES) 100 mg capsule Take 1 capsule by mouth three times a day as needed. promethazine (PHENERGAN) 25 mg tablet Take 1 tablet by mouth every 6 hours as needed for nausea/vomiting. (Patient not taking: Reported on 01/23/2024) No current facility-administered medications for this visit. Allergies As of Date: 06/29/2024 Allergen Noted Reaction BLEACH (SODIUM HYPOCHLORITE) 03/22/2016 Rash LAMICTAL [LAMOTRIGINE] 06/16/2018 Rash PINE TREES [TREES] 03/22/2016 Rash and Hives TOPIRAMATE 06/07/2023 Rash TREE AND SHRUB POLLEN 09/22/2023 Unknown Fully Assessed 06/29/2024 REVIEW OF SYSTEMS Abdomen: No bloating, early satiety, indigestion, or increased flatulence. No abdominal pain, nausea, vomiting, diarrhea, or constipation. Bladder: No dysuria, gross hematuria, urinary frequency, urinary urgency, or incontinence. Breast: No breast lumps, nipple d/c, overlying skin changes, redness or skin retraction. Expanded ROS: N/A Allergies and current medication updated:Yes SENSITIVE EXAM: The sensitive examination was discussed with the Patient or Patient's Authorized Iron Erector. As applicable, any other physician, advance practice provider, medical student, or other health professional student that will be observing or involved in the sensitive examination for educational or training purposes was discussed with the Patient or Authorized Iron Erector. The Patient or Authorized Iron Erector has agreed to proceed with the sensitive examination. (Sensitive examination includes inspection and/or palpation of the breasts, pelvis, prostate and anorectal regions). EXAM: BP 100/60 Wt 155 lb (70.3kg) LMP 07/17/2023 GENERAL: pleasant, female in no apparent distr (more content not included)... Normal [facility] CNOVon 06-01-2024 CNOV Office Visit (FAMPWS ) YAMIL NG ([id number]) 1985 F Date Time Provider Department 06/01/24 2:00 PM IVETH URIARTE During your visit today, we recorded the following information about you: Pulse Respiration Blood pressure Weight 70/minute 14/minute 103/69 70.3 kg Iveth Uriarte APRN.TRACK WATCHMAN 06/01/2024 2:16 PM Signed Chief Complaint Patient presents with: ER F/U: Suture removal tight middle finger HPI Yamil Boston Hernandez is a 38 year old female who presents here today for Above Complaints.. Patient presents for suture removal. Had injury to right middle finger nail and received 3 sutures on 05/24. Here today for removal. Past medical history, appointments, medications, allergies reviewed. Previous Medical History PAST MEDICAL HISTORY Diagnosis Date Anemia Complication of anesthesia nausea and vomiting Episode of recurrent major depressive disorder (HCC) 08/28/2018 Family history of epilepsy aunt Hepatic hemangioma 01/20/2024 Hepatitis in viral diseases classified elsewhere(573.1) when she had mono PMH - PAST MEDICAL HISTORY OF Right Sciatica Seizure disorder (HCC) 02/04/2018 Previous Surgical History PAST SURGICAL HISTORY Procedure Laterality Date DELIVERY ONLY , low cervical x4 DELIVERY ONLY 10/14/2016 EXCISION GANGLION WRIST DORSAL/VOLAR PRIMARY Right HYSTEROSCOPY ENDOMETRIAL ABLATION N/A 02/28/2023 KNEE SURGERY HX Right shaved patella and removed fat pad LAP HYSTERECTOMY FOR UTERUS 250G OR LESS 09/04/2023 LIG/TRNSXJ FLP TUBE ABDL/VAG APPR UNI/BI Bilateral 10/14/2016 VAGINAL CUFF REPAIR 09/22/2023 exam under anesthesia, pelvic irrigation and insertion of intraabdominal drain Family History FAMILY HISTORY Problem Relation Age of Onset Hypertension Father Diabetes Father Hyperlipidemia Father Cataract Father other (FIBROMYALGIA) Sister Pancreatitis Sister Cancer Maternal Grandmother Breast Cancer Paternal Grandmother Heart Paternal Grandmother Stroke Paternal Grandfather Diabetes Maternal Aunt Anesthesia Problems No Family History Clotting Disorder No Family History Malig Hyperthermia No Family History Patient Allergies ALLERGIES Allergen Reactions Bleach (Sodium Hypo* Rash Lamictal [Lamotrigi* Rash [place] Trees [Trees] Rash, Hives Topiramate Rash Tree And Shrub Poll* Unknown Current Medications Current Outpatient Medications on File Prior to Visit Medication Sig fremanezumab-vfrm (AJOVY AUTOINJECTOR) 225 mg/1.5 mL auto-injector Inject 1.5 mL subcutaneously once every month. Do not shake. rizatriptan (MAXALT) 10 mg tablet Take 1 tablet (10 mg) by mouth as needed (at onset of headache. May repeat after 2 hours.). Do not exceed 30 mg per day. MEDROL, DUSTY, 4 mg Dose-Pack Take it as prescribed on the package benzonatate (TESSALON PERLES) 100 mg capsule Take 1 capsule by mouth three times a day as needed. omeprazole (PRILOSEC) 40 mg capsule Take 1 capsule by mouth two times a day. lacosamide (VIMPAT) 150 mg tab Take 1 tablet by mouth two times a day for 180 days. promethazine (PHENERGAN) 25 mg tablet Take 1 tablet by mouth every 6 hours as needed for nausea/vomiting. (Patient not taking: Reported on 01/23/2024) levETIRAcetam (KEPPRA) 1,000 mg tablet Take 1 tablet by mouth two times a day. [DISCONTINUED] topiramate (TOPAMAX) 25 mg tablet Take by mouth. One tablet twice daily for a week; then two tablets twice daily thereafter. No current facility-administered medications on file prior to visit. Social History Social History Tobacco Use Smoking status: Never Smokeless tobacco: Never Vaping Use Vaping status: Never Used Substance Use Topics Alcohol use: Yes Comment: occasional Drug use: No Review of Symptoms REVIEW OF SYSTEMS SEE HPI EXAM: BP 103/69 Pulse 70 Resp 14 Wt 70.3 kg (155 lb) LMP 07/17/2023 (Exact Date) BMI 27.46 kg/m? General Appearance: Well appearing, alert, in no acute distress, well-hydrated, well nourished.. Extremities: Positive findings: joint location: middle on right dip(s) 4 sutures to nail bed and finger. No redness, swelling, drainage. Lower half of nail is soft and white, upper half of nail intact and pink . Health Maintenance List Hepatitis C Screening Never done Hepatitis B Vaccine(1 of 3 - 19+ 3-dose series) Never done Cervical Cancer Screening due on 11/24/2023 Influenza Vaccine(1) Never done Covid-19 Vaccine(2023- season) Never done Mammogram Screening due on 11/05/2024 DTaP,Tdap,Td Vaccine(4 - Td or Tdap) due on 05/24/2034 HIV Screening Completed HPV Vaccine Aged Out ASSESSMENT/PLAN: 1. Visit for suture removal - ICD9: V58.32, ICD10: Z48.02 (primary diagnosis) 4 sutures removed from nail bed and middle nail. Patient tolerated well. Bandaid applied to prevent nail from catching. 2. Laceration of right middle finger w (more content not included)... [facility] YAMIL NG ([id number]) 1985 F Date Time Provider Department 05/25/24 MARTINE MARINELLI [facility] During your visit today, we recorded the following information about you: Martine Marinelli APRN.[facility] 05/25/2024 1:06 PM Signed Qulipta was denied due to patient has to try an injectable first such as Ajovy. Will start PA for Ajovy. We will request a precertification for a CGRP such as Fremanezumab (Ajovy) for the prevention of chronic migraine . This patient meets ICHD-3 criteria for treatment of migraine with a small molecule CGRP antagonist GEPANT. The FDA has approved GEPANTS for the treatment of migraine. Specifically, the patient has almost daily with 8-10 migraines headaches per month, lasting 4 or more hours/day associated with photophobia, phonophobia, osmophobia, nausea, blurred vision for three or more months. Medication overuse headache has been ruled out.Patient will not use with a GEPANT. The patient has a contraindication TCAs low the seizure threshold The following preventative medications have been tried for three or more months without benefit: Topamax-ineffective and allergic Propranolol-ineffectiv e Nortriptyline-lowers seizure threshold-patient with hx of epilepsy The following abortive medications have been tried but require high frequency use which can lead to Medication Overuse Headache: Excedrine, rizatriptan Allergies As of Date: 05/25/2024 Noted Allergy Reaction BLEACH (SODIUM HYPOCHLORITE) 03/22/2016 2 - Rash LAMICTAL (LAMOTRIGINE) 06/16/2018 2 - Rash PINE TREES (TREES) 03/22/2016 2 - Rash 4 - Hives TOPIRAMATE 06/07/2023 2 - Rash TREE AND SHRUB POLLEN 09/22/2023 16 - Unknown Date Reviewed: 05/22/2024 Reviewed by: Key Chan MA - Fully Assessed Primary Visit Diagnosis:Migraine without aura and with status migrainosus, not intractable [G43.001] Order(s):fremanezumab- vfrm (AJOVY AUTOINJECTOR) 225 mg/1.5 mL auto-injectorInject 1.5 mL subcutaneously once every month. Do not shake.Disp: 1.5 mLRfl: 5 Prescriptions as of 05/25/2024 - fremanezumab-vfrm (AJOVY AUTOINJECTOR) 225 mg/1.5 mL auto-injector Inject 1.5 mL subcutaneously once every month. Do not shake. - rizatriptan (MAXALT) 10 mg tablet Take 1 tablet (10 mg) by mouth as needed (at onset of headache. May repeat after 2 hours.). Do not exceed 30 mg per day. - MEDROL, DUSTY, 4 mg Dose-Pack Take it as prescribed on the package - benzonatate (TESSALON PERLES) 100 mg capsule Take 1 capsule by mouth three times a day as needed. - omeprazole (PRILOSEC) 40 mg capsule Take 1 capsule by mouth two times a day. - lacosamide (VIMPAT) 150 mg tab Take 1 tablet by mouth two times a day for 180 days. - promethazine (PHENERGAN) 25 mg tablet Take 1 tablet by mouth every 6 hours as needed for nausea/vomiting. - levETIRAcetam (KEPPRA) 1,000 mg tablet Take 1 tablet by mouth two times a day. - topiramate (TOPAMAX) 25 mg tablet (Discontinued) Take by mouth. One tablet twice daily for a week; then two tablets twice daily thereafter. 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] 03/12/2018 Medication side effect [T88.7XXA] 03/12/2018 04/24/2019 Encounter for monitoring anticonvulsant therapy*03/12/2018 Vitamin D deficiency [E55.9] 06/15/2018 URI (obstructive sleep apnea) [G47.33] 08/28/2018 Anxiety [F41.9] 08/28/2018 Episode of recurrent major depressive disorder *08/28/2018 Splenomegaly [R16.1] 03/20/2019 Anemia [D64.9] 03/20/2019 Ganglion cyst of wrist, right [M67.431] 04/24/2019 Acute pain of right knee [M25.561] 09/20/2020 Plica of knee, right [M67.51] 02/20/2021 02/20/2021 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 Do not shake. Medications Discontinued During This Encounter Prescriptions - atogepant (QULIPTA) 60 mg tablet (Discontinued) Take 1 tablet (60 mg) by mouth once daily. Encounter Status:Closed by MARTINE MARINELLI on 05/25/24 Normal [facility] Emergency Department Summary on 05-24-2024 Emergency Department Summary [facility] Medical Records Department [address] [place] [address] Emergency Department Summary 05/24/24 MR#: [id number] Acct: [id number] Name: YAMIL NG Rep #: [id number] : 1985 38 From: Junaid Evans DO PCP: Dr. Skip Ignacio MD Status:DEP ER Location: ED HPI History of Present Illness Chief Complaint: Upper Extremity Injury Narrative Narrative: Chief complaint and HPI: Right middle finger nail injury. 38-year-old female with history of epilepsy presents for evaluation of right middle finger nail injury. Patient states that she was helping move a motorcycle when her acrylic nail got caught and ripped partly off with her nail. Patient endorses pain to the tip of the finger where the nail is located. She states to ease the pain she took multiple shots of alcohol. Did not take ibuprofen or Tylenol. Patient states the alcohol did not improve her pain which is why she presents here. She denies any numbness or tingling. She does have some bruising to the distal aspect of the right middle finger. Denies pain in the rest of the fingers the hand or the wrist. Review of systems: See HPI Medications: As listed on the chart Allergies: As listed on the chart PFSH: Per chart Vital signs: As listed on the chart. Reviewed. Physical exam: Gen: A O x3, NAD Head: Normocephalic, atraumatic Eyes: No sclera icterus, conjunctiva clear ENT: Moist mucous membranes Neck: Full range of motion CV: Regular rate Resp: Nonlabored respiration Musc: Full range of motion to the right middle finger as well as the rest of the fingers hand, wrist, upper extremity. Patient's acrylic nail as well as capitan grande band nail is unattached distally to the nailbed but is attached approximately at the nail insertion. She has mild swelling and ecchymosis to the distal aspect of the right middle finger. Good capillary refill. Sensation intact. Radial and ulnar pulses plus 2 out of 4 bilaterally Neuro: Alert, oriented, grossly intact, sensation intact Psych: Cooperative, appropriate mood and affect [facility] Medical History (Updated 05/24/24 @ 22:[address] Junaid Evans, DO) Dehiscence of vaginal cuff Ganglion cyst Ureteral stone Anxiety Epilepsy Home Medications ???Medication ???Instructions ???Recorded ???Last Taken ???Type levetiracetam 500 mg tablet 1,000 mg PO BID 08/25/21 Unknown History cephalexin 500 mg capsule 500 mg PO BID 5 days #10 caps 05/24/24 Unknown Rx lacosamide 150 mg tablet 150 mg PO BID 05/24/24 Unknown History omeprazole 40 mg capsule,delayed 40 mg PO BID 05/24/24 Unknown History release Allergy/AdvReac Type Severity Reaction Status Date / Time Bleach (Sodium Hypochlorite) Allergy Hives Verified 05/24/24 21:01 lamotrigine (From Lamictal) Allergy Rash Verified 05/24/24 21:01 tree and shrub pollen Allergy Hives Verified 05/24/24 21:01 Surgical History S/P hysterectomy Previous section H/O right knee surgery H/O: hysterectomy Social History household members: spouse Smoking Status: Never smoker substance use type: does not use EXAM Physical Exam Const Vital Signs: 05/24/24 21:01 05/24/24 22:31 Temperature 97.8 F 97.8 F Temperature Source Temporal Pulse Rate 87 80 Respiratory Rate 16 16 Blood Pressure 129/80 H 129/80 H Blood Pressure Mean 96 96 Pulse Ox 100 100 MDM MDM MDM Narrative Medical decision making narrative: 38-year-old female with history of epilepsy presents for evaluation of right middle finger nail injury. See physical exam findings. Her acrylic nail as well as capitan grande band nail is removed off of the nailbed distally but is still attacks proximately at the insertion site. The nail will need to be removed. Given tenderness, swelling, mild ecchymosis to the distal finger will obtain x-ray. Tetanus updated. Zofran ordered for nausea. Despite patient drinking multiple shots of alcohol she is alert and oriented to consent to procedure. Significant other is also in the room who consents. Patient's nail was removed. See procedure note. Patient tolerated this well. Patient's sutures will need to be removed in 7 days. Follow-up with PCP. Will put her on prophylactic antibiotics to decrease risk of infection. She was given the first dose of Keflex here. She is educated on wound monitoring and care. Patient discharged home. Diagnostic: Interpreted by me/EM physician: X-ray of the right middle finger without dislocation or fracture. Indication: Partial acrylic nail/capitan grande band nail removal Consent: Risks, benefits, and alternatives discussed with patient and consent obtained Procedure: The skin surrounding the wound was cleaned, irrigated, and sterile draped. (more content not included)... Normal [facility] Finger(s) Min 2 Viewson 12-0 Finger(s) Min 2 Views [facility] [address], [place] [address] Finger(s) Min 2 Views MR#: [id number] Acct: [id number] Name: YAMIL NG Rep #: [id number] : 1985 F 38 From: Mao burton DO PCP: Dr. Skip Ignacio MD Status: [facility] ER Study: Finger(s) Min 2 Views Date of Exam: 05/24/24 Exam# [id number] Ordering Dr: Junaid Evans DO [id number] EXAM: XR RIGHT FINGERS, 2 OR MORE VIEWS CLINICAL INDICATION: Injury, pain. TECHNIQUE: Frontal, lateral and oblique views of the fingers of the right hand. COMPARISON: No relevant prior studies available. FINDINGS: BONES/JOINTS: No significant abnormality. No acute fracture. No subluxation. Normal alignment. Preservation of the joint space. No sclerotic or destructive changes observed. SOFT TISSUES: No significant abnormality. No soft tissue swelling or gas. No radiopaque foreign body. RAD/Finger(s) Min 2 Views IMPRESSION: Negative x-rays of the visualized right fingers. Electronically Signed: Mao MarcialSarabjit Sifuentes DO at 21:44 EST , CC: Dr. Junaid Mclean-DO Michael; Dr. Skip Ignacio MD Binitrotoluene Operator: Signed [facility] CNOVon 05-22-2024 CNOV Office Visit (NEURST ) YAMIL NG ([id number]) 1985 F Date Time Provider Department 05/22/24 3:00 PM MARTINE MARINELLI During your visit today, we recorded the following information about you: Pulse Blood pressure Weight Height 75/minute 104/70 70.6 kg 1.6 m Martine Marinelli APRN.TRACK WATCHMAN 05/22/2024 4:25 PM Signed [facility] for General Neurology - Headache Evaluation Name: Yamil Ng Age: [age] year old Gender: female Primary Care Provider: Adrianne Ignacio MD Consult requested for headaches by Meredith Edward. Recommendations will be communicated via shared medical record or US mail. Chief Complaint:New Patient (Headaches for 6 months having nausea light and smell sensitivity,having some dizziness headaches are front of head and the base of her head ) 05/22/2024 - General Neurology, Martine Marinelli APRN.TRACK WATCHMAN ASSESSMENT This is a 38 year old female with past medical history of anemia, depression, epilepsy, migraine, and seizure disorder presenting with headaches which have began when she was 14-15 years old and worsened in the last 6-8 months. She was seen by Dr. Reddy on May 2023 and she has tried Topamax and propranolol as preventative with no effect. She was never prescribed rescue medication for her migraines. She is experiencing 4 migraines monthly with almost daily headaches rated from 6-9/10 throbbing, pressure, aching headaches associated with photo/phono sensitivity, nausea, vomiting, blurred vision, and dizziness which last for 2 to 4 hours. She finds some headache improvement from massages and sleep. She has epilepsy history. She is on Vimpat 150 mg twice daily and levetiracetam 1000 mg twice daily. Neurological exam is notable for decreased sensation of the right foot on the medial and lateral aspect of the foot along the dermatomes of L4-S1 and decreased temperature sensation of the right lower extremity. The rest of the exam is unremarkable. MRA/MRV/MRI brain done in May 2023 are unremarkable and reassuring. Low concern for central etiology at this time. Etiology of patient's symptoms is consistent with migraine without aura with status migrainosus. Discussed preventative and rescue medications for migraine headaches with patient and who is accompanying patient in this visit. Patient has tried Topamax and propranolol with no effect on her headaches. Next first-line as a preventative medication is TCAs such as nortriptyline or amitriptyline which lowers the seizure threshold. Recommend Qulipta 60 mg as a preventative. Will send PA. Will start patient on rizatriptan 10 mg as a rescue medication for migraines. Dosage, usage, and side effects of triptans were discussed with patient and printed information was provided on after visit summary Patient denies any personal history of [place] or CVA. Discussed medication dosage, usage, goals of therapy, and side effects including drowsiness, dizziness AND chest/throat tightness. Given instructions on use; take at onset of [facility] can repeat in 2 hours if needed. No more than 2 doses per 24 hours AND 3 doses per week. Patient verbalizes understanding. Well prescribe Medrol pack to break of the headache cycle. There is subjective report of patient previously being prescribed steroids and have tolerated them well. Discussed when to seek further evaluation to emergency department. Plan was discussed with patient and who agreed to the below: PLAN - Qulipta 60 mg daily-migraine prevention -Rizatriptan 10 mg as needed-rescue medication for migraine -Medrol pack-to break of the cycle of daily headaches -Follow-up in 3 months or sooner if symptoms fail to improve Encounter Diagnosis ICD-10-CM 1. Migraine without aura and with status migrainosus, not intractable G43.001 atogepant (QULIPTA) 60 mg tablet rizatriptan (MAXALT) 10 mg tablet MEDROL, DUSTY, 4 mg Dose-Pack 2. Nonintractable headache, unspecified chronicity pattern, unspecified headache type R51.9 The nature of migraine/headache has been discussed. Episodic and prophylactic choices have been explained. Headache days/month: Migraine days/month: 10/21 Preventative: atogepant (Qulipta) Rescue: Maxalt Anti-Emetics: phenergan not sure of the dose. Previously prescribed We will request a precertification for a Calcitonin Gene-Related Peptide Receptor Antagonist (GEPANT) Atogepant for the prevention of chronic migraine . This patient meets ICHD-3 criteria for treatment of migraine with a small molecule CGRP antagonist GEPANT. The FDA has approved GEPANTS for the treatment of migraine. Specifically, the patient has almost daily with 8-10 migraines headaches per month, lasting 4 or more hours/day associated with photophobia, phonophobia, osmophobia, nausea, blurred vision for three or more months. Medication overuse headache has been (more content not included)... Normal [facility] 05-07-2024 [facility] [place] Telephone (NE50MN) YAMIL NG ([id number]) 1985 F Date Time Provider Department 05/07/24 PANDA MARINELLI NE50MN During your visit today, we recorded the following information about you: Estephania Young 05/07/2024 2:08 PM Signed General call : Full name of person calling: Yamil Ng Relationship to patient: self Phone # : [phone] (home) Reason for call: pt states not with it lately, been forgetful and headache, shaky Patient of Georgina Pulliam, DANYELLE 05/07/2024 3:24 PM Signed Last visit: 02/07/24 PLAN: - continue LCM 150 mg BID and LEV 1,000 mg BID - plans to have LEV and LCM level checked in 1-2 weeks (to reflect increased dose of LCM), aware of trough draw - advised she can try taking Melatonin for sleep - advised on no driving - follow up in 6 months, earlier as needed Last labs: 02/12/24 Last seizure: Sleep: Call to pt, no answer, msg left. DANYELLE Tong Merlene 05/07/2024 3:30 PM Signed Patient returned call to the office, please return call at (p) [phone]. Georgina Archibald RN 05/08/2024 2:05 PM Signed Last visit: 02/07/24 PLAN: - continue LCM 150 mg BID and LEV 1,000 mg BID - plans to have LEV and LCM level checked in 1-2 weeks (to reflect increased dose of LCM), aware of trough draw - advised she can try taking Melatonin for sleep - advised on no driving - follow up in 6 months, earlier as needed Last labs: 02/12/24 Last seizure: Sleep: Call to pt no answer message left. DANYELLE Tong Jennifer, RN 05/12/2024 10:29 AM Signed Last visit: 02/07/24 PLAN: - continue LCM 150 mg BID and LEV 1,000 mg BID - plans to have LEV and LCM level checked in 1-2 weeks (to reflect increased dose of LCM), aware of trough draw - advised she can try taking Melatonin for sleep - advised on no driving - follow up in 6 months, earlier as needed Last labs: 02/12/24 Last seizure: December 2023 Sleep: Tried Melatonin, does help but still wakes up at around 3-4am (goes to sleep at 10pm). Unable to go back to sleep once awake. Headaches are daily. OTC meds are not helping. Has tried Tylenol and Ibuprofen. Pt states she just hasn't felt well in general lately (over last few weeks) and wanted to see if this could be from her meds. AMS's verified with pt. Routing to [place]. DANYELLE Tong Alena, PA-C 05/12/2024 11:22 AM Signed Would recommend patient see sleep medicine to further evaluate insomnia. She could also try taking a higher mg of melatonin in the meantime depending on what dose she takes now. Regarding headaches, is patient interested in further medication management? Her daily headaches could also be from disrupted sleep. Most recent ASM levels within normal range. It isn't unusual for these medications to make patients feel more fatigued than normal. IS that what she refers to as unwell? Meredith Ernst PA-C Rhodes, Alena, PA-C 05/13/2024 9:21 AM Signed Addended by: MEREDITH EDWARD on: 05/13/2024 09:21 AM Modules accepted: Orders Allergies As of Date: 05/07/2024 Noted Allergy Reaction BLEACH (SODIUM HYPOCHLORITE) 03/22/2016 2 - Rash LAMICTAL (LAMOTRIGINE) 06/16/2018 2 - Rash PINE TREES (TREES) 03/22/2016 2 - Rash 4 - Hives TOPIRAMATE 06/07/2023 2 - Rash TREE AND SHRUB POLLEN 09/22/2023 16 - Unknown Date Reviewed: 04/29/2024 Reviewed by: Teresa Trujillo LPN - Fully Assessed Reason for Visit: general [Other] Cmt: Patient issues Primary Visit Diagnosis:Nonintractab le headache, unspecified chronicity pattern, unspecified headache type [R51.9] Order(s):CONSULT TO HEADACHE CLINIC [[id number]] Order #: [id number]: 1 FUTURE Prescriptions as of 05/13/2024 - benzonatate (TESSALON PERLES) 100 mg capsule Take 1 capsule by mouth three times a day as needed. - omeprazole (PRILOSEC) 40 mg capsule Take 1 capsule by mouth two times a day. - lacosamide (VIMPAT) 150 mg tab Take 1 tablet by mouth two times a day for 180 days. - promethazine (PHENERGAN) 25 mg tablet Take 1 tablet by mouth every 6 hours as needed for nausea/vomiting. - levETIRAcetam (KEPPRA) 1,000 mg tablet Take 1 tablet by mouth two times a day. - topiramate (TOPAMAX) 25 mg tablet (Discontinued) Take by mouth. One tablet twice daily for a week; then two tablets twice daily thereafter. Problem List As Of Date 05/07/2024 Noted Resolved Spotting in first trimester [O26.851] 03/22/2016 11/23/2016 History of 3 sections [Z98.891] 03/22/2016 11/23/2016 PONV (postoperative nausea and vomiting) [R11.2*03/22/2016 Family history of cleft lip and palate [Z82.79] 03/22/2016 11/23/2016 Normal repeat , antepartum [Z34.90] 03/29/2016 11/23/2016 UTI (urinary tract infection) in , ant*04/02/2016 11/23/2016 Rubella non-immune status, antepartum [O09.899,*04/17/2016 11/23/2016 Abnormal finding on (more content not included)... Normal [facility] CNOVon 04-29-2024 CNOV Office Visit (BENIGNOWS ) YAMIL NG ([id number]) 1985 F Date Time Provider Department 04/29/24 12:20 PM CRISTY DUNBAR During your visit today, we recorded the following information about you: Temperature Pulse Respiration Blood pressure 98.2 degrees 64/minute 16/minute 110/72 Weight 69.4 kg Cristy Dunbar APRN.BHARAT 04/29/2024 12:29 PM Signed 04/29/2024 Patient presents with: Follow Up: Patient reports was improving with treatment for PNE but feels symptoms are returning SUBJECTIVE: This is a 38 year old that is here today for Above Complaints. Seen in [facility] on 04/13/2024 for fever, cough, and SOB. CXR showed pneumonia. Treated with Doxycycline. Completed Doxycyline about 14 days ago. Yesterday cough has returned. Feels like she can't catch her breath. [place] feverish last night but didn't take temp. [place] hot/cold last night. Headache two nights ago. Not using any OTC medications.Denies muscle aches, nasal congestion, rhinorrhea, dyspnea, wheezing, chest pain, nausea, vomiting or diarrhea PAST MEDICAL HISTORY Diagnosis Date Anemia Complication of anesthesia nausea and vomiting Episode of recurrent major depressive disorder (HCC) 08/28/2018 Family history of epilepsy aunt Hepatic hemangioma 01/20/2024 Hepatitis in viral diseases classified elsewhere(573.1) when she had mono PMH - PAST MEDICAL HISTORY OF Right Sciatica Seizure disorder (HCC) 02/04/2018 ALLERGIES Bleach (Sodium Hypochlorite), Lamictal [Lamotrigine], [place] Trees [Trees], Topiramate, and Tree And Shrub Pollen MEDICATIONS Current Outpatient Medications Medication Sig omeprazole (PRILOSEC) 40 mg capsule Take 1 capsule by mouth two times a day. lacosamide (VIMPAT) 150 mg tab Take 1 tablet by mouth two times a day for 180 days. levETIRAcetam (KEPPRA) 1,000 mg tablet Take 1 tablet by mouth two times a day. promethazine (PHENERGAN) 25 mg tablet Take 1 tablet by mouth every 6 hours as needed for nausea/vomiting. (Patient not taking: Reported on 01/23/2024) No current facility-administered medications for this visit. Medications and allergies reviewed by this provider. SOCIAL HISTORY Social History Tobacco Use Smoking status: Never Smokeless tobacco: Never Vaping Use Vaping status: Never Used Substance Use Topics Alcohol use: Yes Comment: occasional Drug use: No REVIEW OF SYSTEMS All other reviewed and negative other than HPI. OBJECTIVE: BP 110/72 Pulse 64 Temp 36.8 ?C (98.2 ?F) Resp 16 Wt 69.4 kg (153 lb) LMP 07/17/2023 (Exact Date) SpO2 99% BMI 27.10 kg/m? . Vital signs reviewed by this provider. APPEARANCE Well appearing, alert, in no acute distress, well-hydrated, well nourished. EYES conjunctiva and sclera normal. NECK Supple, no adenopathy; thyroid symmetric, normal size, no bruits HEART RRR with normal S1 and S2, no murmurs, no gallops, no JVD appreciated LUNG clear to auscultation. No wheezes rhonchi or rales. Able to speak in full sentences without difficulty SKIN Skin color, texture, turgor normal, no suspicious rashes or lesions to exposed skin Hepatitis C Screening Never done Hepatitis B Vaccine(1 of 3 - 19+ 3-dose series) Never done Cervical Cancer Screening due on 11/24/2023 Influenza Vaccine(1) Never done Covid-19 Vaccine( - 2023- season) Never done Mammogram Screening due on 11/05/2024 DTaP,Tdap,Td Vaccine(3 - Td or Tdap) due on 07/30/2026 HIV Screening Completed HPV Vaccine Aged Out ASSESSMENT/PLAN: 1. Acute cough - ICD9: 786.2, ICD10: R05.1 - no red flag symptoms or exam findings - red flag symptoms discussed, verbalizes understanding - XR CHEST 2V FRONTAL/LAT - BENZONATATE 100 MG CAPSULE - follow-up pending chest xray Cristy Dunbar, ANGÉLICA.TRACK WATCHMAN Prescription instructions reviewed with patient as applicable. Patient advised if symptoms do not improve or if symptoms worsen sooner, to contact their primary care physician. Potential red flag symptoms discussed with the patient. Reviewed appropriate action plan to take if red flag symptoms occur. Patient agreeable to treatment plan. Medical Decision Making: Problems: Low: Acute, uncomplicated illness or injury Data: Unique test(s) ordered: 1 Risk: Moderate: Moderate risk from testing/treatment Medical Decision Making Level: 3 - Low Allergies As of Date: 04/29/2024 Noted Allergy Reaction BLEACH (SODIUM HYPOCHLORITE) 03/22/2016 2 - Rash LAMICTAL (LAMOTRIGINE) 06/16/2018 2 - Rash PINE TREES (TREES) 03/22/2016 2 - Rash 4 - Hives TOPIRAMATE 06/07/2023 2 - Rash TREE AND SHRUB POLLEN 09/22/2023 16 - Unknown Date Reviewed: 04/29/2024 Reviewed by: Teresa Trujillo LPN - Fully Assessed Reason for Visit: Follow Up [171] Cmt: Patient reports was improving with treatment for PNE but feels symptoms are returning Primary Visit Diagnosis:Acute cough [R05.1] Order(s):XR (more content not included)... Normal [facility]AT[facility] 04-29[facility]20[facility] ([id number]) 1985 F Date Time Provider Department 04/29/24 CRISTY DUNBAR During your visit today, we recorded the following information about you: Yoan San LPN 04/29/2024 1:29 PM Signed ----- Message from Cristy Dunbar APRN.TRACK WATCHMAN sent at 04/29/2024 12:44 PM EST ----- Chest xray is normal. ERIN Dsouza Beth, LPN 04/29/2024 1:30 PM Signed Phoned patient went over results, notes from Sarah Dunbar IRRIGATION PUMP INSTALLER with understanding. Allergies As of Date: 04/29/2024 Noted Allergy Reaction BLEACH (SODIUM HYPOCHLORITE) 03/22/2016 2 - Rash LAMICTAL (LAMOTRIGINE) 06/16/2018 2 - Rash PINE TREES (TREES) 03/22/2016 2 - Rash 4 - Hives TOPIRAMATE 06/07/2023 2 - Rash TREE AND SHRUB POLLEN 09/22/2023 16 - Unknown Date Reviewed: 04/29/2024 Reviewed by: Teresa Trujillo LPN - Fully Assessed Reason for Visit: Results [95] Prescriptions as of 04/29/2024 - benzonatate (TESSALON PERLES) 100 mg capsule Take 1 capsule by mouth three times a day as needed. - omeprazole (PRILOSEC) 40 mg capsule Take 1 capsule by mouth two times a day. - lacosamide (VIMPAT) 150 mg tab Take 1 tablet by mouth two times a day for 180 days. - promethazine (PHENERGAN) 25 mg tablet Take 1 tablet by mouth every 6 hours as needed for nausea/vomiting. - levETIRAcetam (KEPPRA) 1,000 mg tablet Take 1 tablet by mouth two times a day. - topiramate (TOPAMAX) 25 mg tablet (Discontinued) Take by mouth. One tablet twice daily for a week; then two tablets twice daily thereafter. 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] 03/12/2018 Medication side effect [T88.7XXA] 03/12/2018 04/24/2019 Encounter for monitoring anticonvulsant therapy*03/12/2018 Vitamin D deficiency [E55.9] 06/15/2018 URI (obstructive sleep apnea) [G47.33] 08/28/2018 Anxiety [F41.9] 08/28/2018 Episode of recurrent major depressive disorder *08/28/2018 Splenomegaly [R16.1] 03/20/2019 Anemia [D64.9] 03/20/2019 Ganglion cyst of wrist, right [M67.431] 04/24/2019 Acute pain of right knee [M25.561] 09/20/2020 Plica of knee, right [M67.51] 02/20/2021 02/20/2021 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 GERD (gastroesophageal reflux disease) [K21.9] 02/13/2023 Menorrhagia with irregular cycle [N92.1] 02/28/2023 Encounter Status:Closed by YOAN SAN on 04/29/24 Normal [facility] XR CHEST 2V FRONTAL/LATon XR CHEST 2V FRONTAL/LAT * * *Final Repor t* * * DATE OF EXAM: Apr 29 2024 12:40PM WOX [id number] - XR CHEST 2V FRONTAL/LAT / PROCEDURE REASON: Acute cough * * * * Physician Interpretation * * * * EXAMINATION: CHEST RADIOGRAPH (2 VIEW FRONTAL and LATERAL) CLINICAL HISTORY: Acute cough MQ: XC2_6 EXAM DATE/TIME: 04/29/2024 12:40 PM COMPARISON: 04/13/2024 RESULT: Lines, tubes, and devices: None. Lungs and pleura: No consolidation. No lung mass. No pleural effusion. No pneumothorax. Cardiomediastinal silhouette: Normal cardiomediastinal silhouette. Bones and soft tissues: Unremarkable. IMPRESSION: No acute radiographic abnormality. Binitrotoluene Operator: [facility]ITAL[facility] Transcribe Date/Time: Apr 29 2024 12:40P Dictated by : MARCIE WYNN MD This examination was interpreted and the report reviewed and electronically signed by: MARCIE WYNN MD on Apr 29 2024 12:40PM EST [id number] Normal [facility] XR Chest PA and Lateralon IMPRESSION: No acute radiographic abnormality. Binitrotoluene Operator: [employer] Transcribe Date/Time: Apr 29 2024 12:40P Dictated by : MARCIE WYNN MD This examination was interpreted and the report reviewed and electronically signed by: MARCIE WYNN MD on Apr 29 2024 12:40PM EST DIVISION OF RADIOLOGY * * *Final Report* * * DATE OF EXAM: Apr 29 2024 12:40PM WOX [id number] - XR CHEST 2V FRONTAL/LAT / PROCEDURE REASON: Acute cough * * * * Physician Interpretation * * * * EXAMINATION: CHEST RADIOGRAPH (2 VIEW FRONTAL & LATERAL) CLINICAL HISTORY: Acute cough MQ: XC2_6 EXAM DATE/TIME: 04/29/2024 12:40 PM COMPARISON: 04/13/2024 RESULT: Lines, tubes, and devices: None. Lungs and pleura: No consolidation. No lung mass. No pleural effusion. No pneumothorax. Cardiomediastinal silhouette: Normal cardiomediastinal silhouette. Bones and soft tissues: Unremarkable. DIVISION OF RADIOLOGY Provider, [facility] - 04/29/2024 * * *Final Report* * * DATE OF EXAM: Apr 29 2024 12:40PM WOX [id number] - XR CHEST 2V FRONTAL/LAT / PROCEDURE REASON: Acute cough * * * * Physician Interpretation * * * * EXAMINATION: CHEST RADIOGRAPH (2 VIEW FRONTAL & LATERAL) CLINICAL HISTORY: Acute cough MQ: XC2_6 EXAM DATE/TIME: 04/29/2024 12:40 PM COMPARISON: 04/13/2024 RESULT: Lines, tubes, and devices: None. Lungs and pleura: No consolidation. No lung mass. No pleural effusion. No pneumothorax. Cardiomediastinal silhouette: Normal cardiomediastinal silhouette. Bones and soft tissues: Unremarkable. IMPRESSION IMPRESSION: No acute radiographic abnormality. Binitrotoluene Operator: PSC[employer] Transcribe Date/Time: Apr 29 2024 12:40P Dictated by : MARCIE WYNN MD This examination was interpreted and the report reviewed and electronically signed by: MARCIE WYNN MD on Apr 29 2024 12:40PM [facility] Radiology Study observation (narrative) Vicki boston [facility] XR Chest PA and LateralOrder ed By: [facility]cf Provider on 04-29-2024 [facility] CNOVon 04-13-2024 CNOV Office Visit ([facility] ) YAMIL NG ([id number]) 1985 F Date Time Provider Department 04/13/24 2:00 PM DHIRAJ WHITT [facility] During your visit today, we recorded the following information about you: Temperature Pulse Respiration Blood pressure 97.2 degrees 76/minute 16/minute 100/64 Weight 69.5 kg Dhiraj Whitt MD 04/13/2024 2:30 PM Signed Patient presents with: Chest Congestion: cough, sob x over 1 week HPI: Coughing for over 1 week. Initial fever resolved but cough and shortness of breath are worsening. Positive symptoms: non-productive Cough, Shortness of breath, Chest tightness, Negative symptoms: Sore throat, Sinus pressure, Nasal Congestion, Rhinorrhea, Nausea, Vomiting, Diarrhea, OTC: Lozenges, honey, pineapple Denies history of asthma or pneumonia. PAST MEDICAL HISTORY Diagnosis Date Anemia Complication of anesthesia nausea and vomiting Episode of recurrent major depressive disorder (HCC) 08/28/2018 Family history of epilepsy aunt Hepatic hemangioma 01/20/2024 Hepatitis in viral diseases classified elsewhere(573.1) when she had mono PMH - PAST MEDICAL HISTORY OF Right Sciatica Seizure disorder (HCC) 02/04/2018 MEDICATIONS: Current Outpatient Medications Medication Sig omeprazole (PRILOSEC) 40 mg capsule Take 1 capsule by mouth two times a day. lacosamide (VIMPAT) 150 mg tab Take 1 tablet by mouth two times a day for 180 days. levETIRAcetam (KEPPRA) 1,000 mg tablet Take 1 tablet by mouth two times a day. promethazine (PHENERGAN) 25 mg tablet Take 1 tablet by mouth every 6 hours as needed for nausea/vomiting. (Patient not taking: Reported on 01/23/2024) No current facility-administered medications for this visit. ALLERGIES: ALLERGIES Allergen Reactions Bleach (Sodium Hypo* Rash Lamictal [Lamotrigi* Rash [place] Trees [Trees] Rash, Hives Topiramate Rash Tree And Shrub Poll* Unknown VITALS: BP 100/64 Pulse 76 Temp 36.2 ?C (97.2 ?F) Resp 16 Wt 69.5 kg (153 lb 3.5 oz) LMP 07/17/2023 (Exact Date) SpO2 98% BMI 27.14 kg/m? PHYSICAL EXAM: GEN: mildly ill appearing HEENT: PERRL, EOMI, conjunctiva clear Sinuses: non-tender frontal sinus, non-tender maxillary sinuses Throat: moist mucous membranes, no erythema, no exudate Neck: supple, no thyromegaly, no lymphadenopathy HEART: regular rate and rhythm, no murmurs LUNGS: clear to auscultation, no wheezes or crackles, diminished breath sounds right lower lung, no increased WOB ASSESSMENT/PLAN: 1. Pneumonia of left lower lobe due to infectious organism - ICD9: 486, ICD10: J18.9 (primary diagnosis) 2. Acute cough - ICD9: 786.2, ICD10: R05.1 - XR CHEST 2V FRONTAL/LAT IMPRESSION: Airspace opacity in the left lower lobe suspect for left lower lobe pneumonia - DOXYCYCLINE MONOHYDRATE 100 MG CAPSULE Follow up with worsening cough, worsening shortness of breath, increasing chest pain, or late onset fever. Dhiraj Whitt MD Allergies As of Date: 04/13/2024 Noted Allergy Reaction BLEACH (SODIUM HYPOCHLORITE) 03/22/2016 2 - Rash LAMICTAL (LAMOTRIGINE) 06/16/2018 2 - Rash PINE TREES (TREES) 03/22/2016 2 - Rash 4 - Hives TOPIRAMATE 06/07/2023 2 - Rash TREE AND SHRUB POLLEN 09/22/2023 16 - Unknown Date Reviewed: 04/13/2024 Reviewed by: Domitila Pop MA - Fully Assessed Reason for Visit: Chest Congestion [236] Cmt: cough, sob x over 1 week Primary Visit Diagnosis:Pneumonia of left lower lobe due to infectious organism [J18.9] Other Visit Diagnosis:Acute cough [R05.1] Order(s):XR CHEST 2V FRONTAL/LAT [[id number]] Order #: [id number] FUTURE doxycycline monohydrate (MONODOX) 100 mg capsuleTake 1 capsule by mouth two times a day for 5 days.Disp: 10 capsuleRfl: 0 Prescriptions as of 04/13/2024 - doxycycline monohydrate (MONODOX) 100 mg capsule Take 1 capsule by mouth two times a day for 5 days. - omeprazole (PRILOSEC) 40 mg capsule Take 1 capsule by mouth two times a day. - lacosamide (VIMPAT) 150 mg tab Take 1 tablet by mouth two times a day for 180 days. - promethazine (PHENERGAN) 25 mg tablet Take 1 tablet by mouth every 6 hours as needed for nausea/vomiting. - levETIRAcetam (KEPPRA) 1,000 mg tablet Take 1 tablet by mouth two times a day. - topiramate (TOPAMAX) 25 mg tablet (Discontinued) Take by mouth. One tablet twice daily for a week; then two tablets twice daily thereafter. Problem List As Of Date 04/13/2024 Noted Resolved Spotting in first trimester [O26.851] 03/22/2016 11/23/2016 History of 3 sections [Z98.891] 03/22/2016 11/23/2016 PONV (postoperative nausea and vomiting) [R11.2*03/22/2016 Family history of cleft lip and palate [Z82.79] 03/22/2016 11/23/2016 Normal repeat , antepartum [Z34.90] 03/29/2016 11/23/2016 UTI (urinary tract infection) in , ant*04/02/2016 11/23/2016 Rubella non-immune status, antepartum [O09.899,* (more content not included)... Normal [facility] XR CHEST 2V FRONTAL/LATon XR CHEST 2V FRONTAL/LAT * * *Final Repor t* * * DATE OF EXAM: Apr 13 2024 2:13PM [id number] [id number] - XR CHEST 2V FRONTAL/LAT / PROCEDURE REASON: Acute cough * * * * Physician Interpretation * * * * EXAMINATION: CHEST RADIOGRAPH (2 VIEW FRONTAL and LATERAL) CLINICAL HISTORY: Acute cough MQ: XC2_6 EXAM DATE/TIME: 04/13/2024 2:13 PM COMPARISON: No relevant prior studies available. RESULT: Lines, tubes, and devices: None. Lungs and pleura: Mild airspace opacity in the left lower lobe. No pleural effusion or pneumothorax. Cardiomediastinal silhouette: Normal cardiomediastinal silhouette. Bones and soft tissues: Unremarkable. IMPRESSION: Airspace opacity in the left lower lobe suspect for left lower lobe pneumonia. Binitrotoluene Operator: GILDARDO Transcribe Date/Time: Apr 13 2024 2:13P Dictated by : MARISOL ECHOLS MD This examination was interpreted and the report reviewed and electronically signed by: MARISOL ECHOLS MD on Apr 13 2024 2:13PM EST [id number] Normal [facility] XR Chest PA and Lateralon Radiology Study observation (narrative) [facility] IMPRESSION: Airspace opacity in the left lower lobe suspect for left lower lobe pneumonia. Binitrotoluene Operator: GILDARDO Transcribe Date/Time: Apr 13 2024 2:13P Dictated by : MARISOL ECHOLS MD This examination was interpreted and the report reviewed and electronically signed by: MARISOL ECHOLS MD on Apr 13 2024 2:13PM [facility] DIVISION OF RADIOLOGY * * *Final Report* * * DATE OF EXAM: Apr 13 2024 2:13PM WOX 5291 - XR CHEST 2V FRONTAL/LAT / PROCEDURE REASON: Acute cough * * * * Physician Interpretation * * * * EXAMINATION: CHEST RADIOGRAPH (2 VIEW FRONTAL & LATERAL) CLINICAL HISTORY: Acute cough MQ: XC2_6 EXAM DATE/TIME: 04/13/2024 2:13 PM COMPARISON: No relevant prior studies available. RESULT: Lines, tubes, and devices: None. Lungs and pleura: Mild airspace opacity in the left lower lobe. No pleural effusion or pneumothorax. Cardiomediastinal silhouette: Normal cardiomediastinal silhouette. Bones and soft tissues: Unremarkable. DIVISION OF RADIOLOGY Provider, [facility] - 04/13/2024 * * *Final Report* * * DATE OF EXAM: Apr 13 2024 2:13PM WOX 5291 - XR CHEST 2V FRONTAL/LAT / PROCEDURE REASON: Acute cough * * * * Physician Interpretation * * * * EXAMINATION: CHEST RADIOGRAPH (2 VIEW FRONTAL & LATERAL) CLINICAL HISTORY: Acute cough MQ: XC2_6 EXAM DATE/TIME: 04/13/2024 2:13 PM COMPARISON: No relevant prior studies available. RESULT: Lines, tubes, and devices: None. Lungs and pleura: Mild airspace opacity in the left lower lobe. No pleural effusion or pneumothorax. Cardiomediastinal silhouette: Normal cardiomediastinal silhouette. Bones and soft tissues: Unremarkable. IMPRESSION IMPRESSION: Airspace opacity in the left lower lobe suspect for left lower lobe pneumonia. Binitrotoluene Operator: PSCB Transcribe Date/Time: Apr 13 2024 2:13P Dictated by : MARISOL ECHOLS MD This examination was interpreted and the report reviewed and electronically signed by: MARISOL ECHOLS MD on Apr 13 2024 2:13PM EST [facility] XR Chest PA and LateralOrder ed By: [facility] Provider on 04-13-2024 [facility] ALLIED HEALTHon 02-08-2024 ALLIED HEALTH HNO ID: [id number] Author: SARAH SHANKAR RT(R) Service: Radiology Author Type: Technologist Type: Allied Health Filed: 02/08/2024 16:37 Note Text: Radiology Service Progress Note PATIENT NAME: Yamil Ng DATE OF SERVICE: February 08, 2024 TIME: 4:36 PM PATIENT IDENTITY VERIFICATION COMPLETED USING TWO (2) IDENTIFIERS: Name and Date of confirmed by patient verbally. FALL SCREENING: Has the patient had 2 falls in the last year or 1 fall with injury or currently using an Ambulatory Assistive Device (Walker, Cane, Wheelchair, Crutches, etc.)? Emergency Room Patient: Screened in ED PATIENT GENDER DATA: Female. status: : No status: NO. PATIENT RELEVANT IMPLANT DATA REVIEWED: Not Applicable PATIENT PRESENTS WITH AN IMPLANTABLE OR ATTACHED INFORMATION TECHNOLOGY INSTRUCTOR: No RADIOLOGY DEPARTMENT: General X-ray: Exam(s) Completed: Lower Extremity X-Ray(s): Knee, AP / LAT Right PERIPHERAL IV DATA: Not applicable SIGNED BY: RT Kristie(R) February 08, 2024 4:36 PM Normal [facility] ED NOTEon 02-08-2024 ED NOTE HNO ID: [id number] Author: YAMILKA JEONG RN Service: Emergency Medicine Author Type: Registered Nurse Type: ED Notes Filed: 02/08/2024 16:52 Note Text: Patient is alert and oriented, denies any questions/concerns at this time. Patient verbalizes understanding of d/c instructions and follow up care. Patient ambulates from department at this time with crutches. Normal [facility] ED PROV NOTEon 02-08-2024 ED PROV NOTE HNO ID: [id number] Author: KRISTEN OLSEN DO Service: Emergency Medicine Author Type: Physician Type: ED Provider Notes Filed: 02/08/2024 16:55 Note Text: ED Provider Note Patient Name: Yamil Ng : 1985 SERVICE DATE: 02/08/24 History Patient presents with: Knee Pain Yamil Ng is a 38 year old female who presents with Knee Pain. - Symptoms began for years, worsening today when she stood up from sitting. - Severity: moderate - Timing: constant - Quality: sore - Symptoms are associated with chronic pain in right knee with worsening pain when she stood up today. - Symptoms are not associated with chills, fever, wound, redness. Patient states she has had ongoing pain in her right knee for a few years. She states has had prior surgeries on her right knee. She states she had an MRI done yesterday for ongoing right knee pain. She states she was sitting today and went to stand up and had worsening pain in her right knee after standing. There was no fall or direct injury to the knee. No fever. PAST MEDICAL HISTORY No date: Anemia No date: Complication of anesthesia Comment: nausea and vomiting 08/28/2018: Episode of recurrent major depressive disorder (HCC) No date: Family history of epilepsy Comment: aunt 01/20/2024: Hepatic hemangioma No date: Hepatitis in viral diseases classified elsewhere(573.1) Comment: when she had mono No date: PMH - PAST MEDICAL HISTORY OF Comment: Right Sciatica 02/04/2018: Seizure disorder (HCC) PAST SURGICAL HISTORY No date: DELIVERY ONLY Comment: , low cervical x4 10/14/2016: DELIVERY ONLY No date: EXCISION GANGLION WRIST DORSAL/VOLAR PRIMARY; Right 02/28/2023: HYSTEROSCOPY ENDOMETRIAL ABLATION; N/A No date: KNEE SURGERY HX; Right Comment: shaved patella and removed fat pad 09/04/2023: LAP HYSTERECTOMY FOR UTERUS 250G OR LESS 10/14/2016: LIG/TRNSXJ FLP TUBE ABDL/VAG APPR UNI/BI; Bilateral 09/22/2023: VAGINAL CUFF REPAIR Comment: exam under anesthesia, pelvic irrigation and insertion of intraabdominal drain FAMILY HISTORY Problem Relation Age of Onset Hypertension Father Diabetes Father Hyperlipidemia Father Cataract Father other (FIBROMYALGIA) Sister Pancreatitis Sister Cancer Maternal Grandmother Breast Cancer Paternal Grandmother Heart Paternal Grandmother Stroke Paternal Grandfather Diabetes Maternal Aunt Anesthesia Problems No Family History Clotting Disorder No Family History Malig Hyperthermia No Family History Social History Tobacco Use Smoking status: Never Smokeless tobacco: Never Vaping Use Vaping status: Never Used Substance and Sexual Activity Alcohol use: Yes Comment: occasional Drug use: No Sexual activity: Yes Partners: Male control/protection: Vasectomy, Surgical Comment: hyst ALLERGIES Allergen Reactions Bleach (Sodium Hypo* Rash Lamictal [Lamotrigi* Rash [place] Trees [Trees] Rash, Hives Topiramate Rash Tree And Shrub Poll* Unknown Review of Systems Constitutional: Negative for chills and fever. Musculoskeletal: Positive for arthralgias. Skin: Negative for color change. Neurological: Negative for weakness and numbness. Physical Exam Vitals [02/08/24 1615] BP Pulse Temp Temp src Resp SpO2 Weight Height 119/81 83 36.4 ?C (97.6 ?F) -- 16 98 % 68 kg (150 lb) 1.6 m (5' 3) Physical Exam Vitals and nursing note reviewed. Constitutional: Appearance: She is not toxic-appearing or diaphoretic. Cardiovascular: Rate and Rhythm: Normal rate and regular rhythm. Pulses: Normal pulses. Pulmonary: Effort: Pulmonary effort is normal. Breath sounds: Normal breath sounds. Musculoskeletal: Right hip: No tenderness or bony tenderness. Normal range of motion. Right knee: No swelling, deformity, effusion, erythema, ecchymosis, lacerations or crepitus. Decreased range of motion. Tenderness present. Right lower leg: No edema. Left lower leg: No edema. Right ankle: No swelling or lacerations. No tenderness. Normal range of motion. Normal pulse. Comments: Right knee: Extensor mechanism is intact. Skin: General: Skin is warm and dry. Capillary Refill: Capillary refill takes less than 2 seconds. Neurological: Mental Status: She is alert and oriented to person, place, and time. Psychiatric: Mood and Affect: Mood normal. Behavior: Behavior normal. Diagnostic Testing ED Labs Ordered and Reviewed - No data to display Procedures ED Course / Clinical Impression Clinical Impressions as of 02/08/24 1655 Right knee pain, unspecified chronicity MDM / Disposition / Plan Will obtain x-ray imaging of the knee. XR KNEE LIMITED 2V AP/LAT RIGHT Final Result IMPRESSION: Within normal limits. Binitrotoluene Operator: GILDARDO Transcribe Date/Time: Feb 08 2024 4:46P Dictated by : JUHI HOOKER MD This examination was interpreted and the report reviewed and electronically signed by: (more content not included)... Normal [facility] XR KNEE 2V AP/LAT RTon 02-07 XR KNEE 2V AP/LAT RT * * *Final Report* * * DATE OF EXAM: Feb 08 2024 4:35PM LDX 5207 - XR KNEE 2V AP/LAT RT / PROCEDURE REASON: Other * * * * Physician Interpretation * * * * EXAM TITLE: XR KNEE 2V AP/LAT RT DATE: 02/08/2024 4:46 PM INDICATION: Right knee pain COMPARISON: 10/11/2022 FINDINGS: No fracture or dislocation. No joint or soft tissue abnormality. IMPRESSION: Within normal limits. Binitrotoluene Operator: GILDARDO Transcribe Date/Time: Feb 08 2024 4:46P Dictated by : JUHI HOOKER MD This examination was interpreted and the report reviewed and electronically signed by: JUHI HOOKER MD on Feb 08 2024 4:46PM EST [id number] Normal [facility] ALLIED HEALTHon 02-07-2024 ALLIED HEALTH HNO ID: [id number] Author: ?, ?, ? Service: ? Author Type: ? Type: Allied Health Filed: 02/07/2024 13:29 Note Text: Radiology Service Progress Note PATIENT NAME: Yamil gN DATE OF SERVICE: February 07, 2024 TIME: 1:28 PM PATIENT IDENTITY VERIFICATION COMPLETED USING TWO (2) IDENTIFIERS: Name and Date of confirmed by patient verbally. FALL SCREENING: Has the patient had 2 falls in the last year or 1 fall with injury or currently using an Ambulatory Assistive Device (Walker, Cane, Wheelchair, Crutches, etc.)? No PATIENT GENDER DATA: Female. status: : No status: NO. PATIENT RELEVANT IMPLANT DATA REVIEWED: Yes PATIENT PRESENTS WITH AN IMPLANTABLE OR ATTACHED INFORMATION TECHNOLOGY INSTRUCTOR: No RADIOLOGY DEPARTMENT: MR; Exam(s) Completed: Lower MSK: Knee, right PERIPHERAL IV DATA: Not applicable SIGNED BY: Cheri Lombardo/Cherelle [facility] February 07, 2024 1:28 PM Normal [facility] MRI KNEE WO IVCON RTon 02-06 MRI KNEE WO IVCON RT * * *Final Report* * * DATE OF EXAM: Feb 07 2024 1:52PM [facility] 0213 - MRI KNEE WO IVCON RT / PROCEDURE REASON: multiple diagnoses * * * * Physician Interpretation * * * * EXAM TITLE: MRI KNEE WO IVCON RT DATE:02/07/2024 COMPARISON: Radiographs performed 02/08/2024, previous MRI from 10/25/2020 CLINICAL INDICATION/HISTORY: Medial right knee pain TECHNIQUE: MRI of the knee performed as per routine protocol. FINDINGS: There is mild linear signal along the inferior portion of the medial meniscal body on coronal images 17 through 19. This is not significantly changed when comparing to the previous study of 3 years ago. This may faintly extends to the inferior articular surface and is equivocal for a small undersurface tear. Normal appearance of the lateral meniscus. The collateral and cruciate ligaments are normal as are the quadriceps and patellar tendons. No acute bony abnormality. There is mild chondral thinning at the medial compartment. No focal cartilaginous defect. Mild chondromalacia patella. As seen well on sagittal images 22 and 23, coronal images 21 through 23, and axial images 16 through 20, there is a 2.7 cm fluid signal intensity region surrounding the tibial attachment of the semimembranosus tendon, compatible with a semimembranosus/tibial collateral ligament bursitis. No joint effusion. There may be a tiny Banks's cyst. Normal signal and morphology of all visualized musculature. IMPRESSION: 1. Faint, equivocal undersurface tear at the medial meniscal body, not significantly changed from 3 years ago. 2. Semimembranosus/tibial collateral ligament bursitis. 3. Mild chondrosis at the medial compartment and patella. Binitrotoluene Operator[facility] Transcribe Date/Time: Feb 09 2024 8:29A Dictated by : TAVON MÁRQUEZ MD This examination was interpreted and the report reviewed and electronically signed by: TAVON MÁRQUEZ MD on Feb 09 2024 8:35AM EST [id number] Normal [facility] MR Liver WO and W contrast I Von 01-17-2024 IMPRESSION: 1. Benign hepatic hemangiomas as described above. This includes a 1.4 cm hemangioma in segment 7 of the liver which accounts for the finding on patient's prior right upper quadrant ultrasound. Binitrotoluene Operator: [facility] Transcribe Date/Time: Jan 17 2024 1:27P Dictated by : NILS HOLLIDAY MD This examination was interpreted and the report reviewed and electronically signed by: NILS HOLLIDAY MD on Jan 17 2024 1:48PM EST DIVISION OF RADIOLOGY * * *Final Report* * * DATE OF EXAM: Jan 17 2024 1:19PM [facility] 0727 - MRI LIVER WO/W IVCON / PROCEDURE REASON: Liver lesion * * * * Physician Interpretation * * * * MRI LIVER WO/W IVCON CLINICAL HISTORY: Indeterminate hepatic lesion seen on prior ultrasound. COMPARISON: Right upper quadrant abdominal ultrasound from 01/08/2024 TECHNIQUE: MRI LIVER WO/W IVCON was performed. 14 mL of Dotarem was administered. Findings: Liver: At the dome of segment 7 of the liver, there is a 1.4 x 1.3 cm moderately T2 hyperintense lesion which accounts for the finding on patient's recent ultrasound. This demonstrates nodular peripheral enhancement and hepatic arterial phase with gradual central filling on venous and delayed phase imaging. These features are most consistent with a benign hepatic hemangioma. There is a similar smaller hemangioma which measures 0.8 x 0.7 cm near the junction of segments 2 and 3 of the liver. Normal hepatic morphology. No hepatic steatosis. Gallbladder: Normal. Pancreas: Normal. Spleen: Spleen is top normal in size and measures 13.3 cm in length. Adrenal Glands: Normal. Kidneys: Subcentimeter left renal cyst. Lymph Nodes: No suspicious intra-abdominal lymphadenopathy. DIVISION OF RADIOLOGY Provider, [facility] - 01/17/2024 * * *Final Report* * * DATE OF EXAM: Jan 17 2024 1:19PM [facility] 0727 - MRI LIVER WO/W IVCON / PROCEDURE REASON: Liver lesion * * * * Physician Interpretation * * * * MRI LIVER WO/W IVCON CLINICAL HISTORY: Indeterminate hepatic lesion seen on prior ultrasound. COMPARISON: Right upper quadrant abdominal ultrasound from 01/08/2024 TECHNIQUE: MRI LIVER WO/W IVCON was performed. 14 mL of Dotarem was administered. Findings: Liver: At the dome of segment 7 of the liver, there is a 1.4 x 1.3 cm moderately T2 hyperintense lesion which accounts for the finding on patient's recent ultrasound. This demonstrates nodular peripheral enhancement and hepatic arterial phase with gradual central filling on venous and delayed phase imaging. These features are most consistent with a benign hepatic hemangioma. There is a similar smaller hemangioma which measures 0.8 x 0.7 cm near the junction of segments 2 and 3 of the liver. Normal hepatic morphology. No hepatic steatosis. Gallbladder: Normal. Pancreas: Normal. Spleen: Spleen is top normal in size and measures 13.3 cm in length. Adrenal Glands: Normal. Kidneys: Subcentimeter left renal cyst. Lymph Nodes: No suspicious intra-abdominal lymphadenopathy. IMPRESSION IMPRESSION: 1. Benign hepatic hemangiomas as described above. This includes a 1.4 cm hemangioma in segment 7 of the liver which accounts for the finding on patient's prior right upper quadrant ultrasound. Binitrotoluene Operator: GILDARDO Transcribe Date/Time: Jan 17 2024 1:27P Dictated by : NILS HOLLIDAY MD This examination was interpreted and the report reviewed and electronically signed by: NILS HOLLIDAY MD on Jan 17 2024 1:48PM EST [facility] Radiology Study observation (narrative) [facility] MR Liver WO and W contrast I VOrdered By: [facility] Provider on 01-17-2024 [facility] Re-Evaluation - PT (1)on Re-Evaluation - PT (1) [facility] Physical Therapy [facility] [address] [place] [address] / REEVALUATION / MEDICARE RECERTIFICATION PHYSICAL THERAPY MR#: [id number] Acct: [id number] Name: YAMIL NG Rep #: [id number] : 1985 38 From: Modesta Yoder DPT Referring Dr.: Dr. Dennise Gonzalez DO Status:R EG RCR Insurance: [facility] [employer]Y INSURANCE Re-Evaluation Intro: Dr. Dennise Gonzalez DO, It has been my pleasure to treat YAMIL NG over the last 9 visits for Right Knee Pain. Please see the progress note below for an update on the physical therapy plan of care! Subjective Subjective: Patient reports that she has notice less fits. She still has not been squatting or bending due to the increased pain. Sees the MD next week. Objective Objective/Function: Posture: forward head, rounded shoulders- can correct with verbal cues but does not maintain throughout session Gait: no deviation noted HR/TR: able without pain SLS: 15 sec with increased muscle activation and reports increased instability Squat: weight shift to the left- increased pain Palpation: tender along medial joint line Observation: quad set visible but diminished right vs. left ROM: 0-135 degrees with pain at end range of flexion Strength: Core: fair minus, Hip: 4-/5 pain with IR/ER: testing, Knee: Extension Right: 23.5 (3/10) Left: 55 Flexion Right: 17 (2/10) Left: 32 Ankle: 5/5 Flex: HS: moderate, Gastroc: moderate Special Test: patellar mobility: good, LLD: negative Plan Plan Plan: 01/15/24: pt to see MD next week then call in to schedule- will then decide if to continue same 1x aqua and 1x land for 4 more weeks or 2x land for 4 more weeks to progress towards goals and continue POC IE: 1x a week aqua and 1x a week land- focus on LE and core strength/stabilization Balance/Gait/Functiona l tests Balance/Special Test Scores Lower Extremity Functional Score: 44 Goals Goals Goal 1:: Patient will be I with HEP and progression Goal Time Frame: 6-8 Weeks Goal Progress: Progressing Goal 2:: Patient will squat with good mechanics Goal Time Frame: 6-8 Weeks Goal Progress: Progressing Goal 3:: Patient will maintain proper posture t/o tx session to demo increased core s/s Goal Time Frame: 6-8 Weeks Goal Progress: Progressing Goal 4:: Patient will demo equal strength bilateral LE Goal Time Frame: 6-8 Weeks Goal Progress: Progressing Goal 5:: Patient will report 80% improvement Goal Time Frame: 6-8 Weeks Goal Progress: Progressing Anticipated Interventions Anticipated Interventions Patient/Client Instruction: Educate patient on: Benefits of Fitness Program Therapeutic Exercise to Include: Strength training, Endurance training, Balance training, Coordination, Agility training, Body mechanics, Postural training, Flexibilty training, Gait and locomotor training, Neuromotor development, In an aquatic setting, Passive ROM, Active ROM, Dynamic Lumbar Stabilization and Scapular Strength/Stabilization For the Purpose of:: To improve muscle performance and motor function TENS: Yes Cryotherapy (ice pack, ice massage): Yes Thermo therapy (hot pack): Yes Ultrasound (thermal/non thermal): Yes Re-Evaluation Ending Re-evaluation ending: Please do not hesitate to contact me at [phone] by phone or if you have questions or concerns regarding this new plan of care! Sincerely, Modesta Yoder, DPT 01/15/24 1161 CC: Dr. Dennise Gonzalez DO; Dr. Skip Ignacio MD ELR Signed For Medicare only, by signing this I certify the plan of care. Physicians Signature Date Normal [facility] US Abdomen RUQOrdered By: Elsa perry Provider on 01-08-2024 Interpretation and review of laboratory results Abnormal [facility] Radiology Result ACTIONABLE Abnormal [facility] Comment on above: This report contains an incidental or actionable finding. This finding may be a new finding separate from the reason your provider ordered the imaging test or it may be an already known finding that needs additional or continued follow-up. Because of this incidental or actionable finding, you may need another test (imaging or a different type of test). Please contact your provider for the next steps. [facility] US Abdomen RUQon 01-08-2024 IMPRESSION: Posterior right hepatic lobe echogenic mass. Likely hemangioma. Increase from prior reported size, however. Complete characterization with hepatic MR recommended. Otherwise normal sonographic appearance of the right upper quadrant. ACTIONABLE RESULT: FOLLOW-UP Acuity: Actionable Findings: Liver Routing Code: LV_1 Recommendation: MRI LIVER WO/W IVCON (add Dotarem in comments) Time Frame: At the discretion of the clinical team. COMMUNICATION: Results will be communicated with the ordering provider via [employer] staff message or phone message by Imaging Support Services within 2 business days of report finalization. --END OF FINDING-- Binitrotoluene Operator: PSCB Transcribe Date/Time: Jan 08 2024 7:44A Dictated by : SANDEEP HERRERA MD This examination was interpreted and the report reviewed and electronically signed by: SANDEEP HERRERA MD on Jan 08 2024 7:49AM [facility] DIVISION OF RADIOLOGY * * *Final Report* * * DATE OF EXAM: Jan 08 2024 7:35AM [facility] 1032 - US ABD RIGHT UPPER QUADRANT / PROCEDURE REASON: multiple diagnoses * * * * Physician Interpretation * * * * EXAMINATION: RIGHT UPPER QUADRANT ULTRASOUND CLINICAL HISTORY: Epigastric pain and nausea TECHNIQUE: Sonography of the right upper quadrant was performed. Images were obtained and stored in a permanent archive. MQ: URUQ_2 COMPARISON: None. RESULT: Pancreas: Normal sonographic appearance. Portions obscured: tail Liver: Echotexture: Normal, homogeneous. Echogenicity: Normal Surface contour: Smooth Lesions: Echogenic posterior right hepatic lobe lesion of 1.9 x 1.6 x 1.7 cm. Uniform. Circumscribed.. A 1.2 cm posterior right hepatic lobe cyst was described on prior outside CT scans dated 03/17/2019. Biliary: No intrahepatic biliary duct dilation. CBD: 0.3 cm at the hilum. Gallbladder: Normal caliber -Contents: No cholelithiasis -Wall: Normal -Other: No pericholecystic fluid. Right Kidney: No hydronephrosis. Ascites: None. DIVISION OF RADIOLOGY Provider, [facility] - 01/08/2024 * * *Final Report* * * DATE OF EXAM: Jan 08 2024 7:35AM [facility] 1032 - US ABD RIGHT UPPER QUADRANT / PROCEDURE REASON: multiple diagnoses * * * * Physician Interpretation * * * * EXAMINATION: RIGHT UPPER QUADRANT ULTRASOUND CLINICAL HISTORY: Epigastric pain and nausea TECHNIQUE: Sonography of the right upper quadrant was performed. Images were obtained and stored in a permanent archive. MQ: URUQ_2 COMPARISON: None. RESULT: Pancreas: Normal sonographic appearance. Portions obscured: tail Liver: Echotexture: Normal, homogeneous. Echogenicity: Normal Surface contour: Smooth Lesions: Echogenic posterior right hepatic lobe lesion of 1.9 x 1.6 x 1.7 cm. Uniform. Circumscribed.. A 1.2 cm posterior right hepatic lobe cyst was described on prior outside CT scans dated 03/17/2019. Biliary: No intrahepatic biliary duct dilation. CBD: 0.3 cm at the hilum. Gallbladder: Normal caliber -Contents: No cholelithiasis -Wall: Normal -Other: No pericholecystic fluid. Right Kidney: No hydronephrosis. Ascites: None. IMPRESSION IMPRESSION: Posterior right hepatic lobe echogenic mass. Likely hemangioma. Increase from prior reported size, however. Complete characterization with hepatic MR recommended. Otherwise normal sonographic appearance of the right upper quadrant. ACTIONABLE RESULT: FOLLOW-UP Acuity: Actionable Findings: Liver Routing Code: LV_1 Recommendation: MRI LIVER WO/W IVCON (add Dotarem in comments) Time Frame: At the discretion of the clinical team. COMMUNICATION: Results will be communicated with the ordering provider via [employer] staff message or phone message by Imaging Support Services within 2 business days of report finalization. --END OF FINDING-- Binitrotoluene Operator: GILDARDO Transcribe Date/Time: Jan 08 2024 7:44A Dictated by : SANDEEP HERRERA MD This examination was interpreted and the report reviewed and electronically signed by: SANDEEP HERRERA MD on Jan 08 2024 7:49AM EST [facility] Radiology [facility]ative) [facility] CBC W Auto Differential pane l (Bld)on 12-25-2023 Basophils (Bld) [#/Vol] 0.05 10*3/uL [facility] [place] Basophils/100 WBC (Bld) 0.7 % [facility] Differential cell count method Nom (Bld) Auto [facility] Eosinophils (Bld) [#/Vol] 0.08 10*3/uL [facility] [place] Eosinophils/100 WBC (Bld) 1.1 % [facility] Erythrocyte distribution width (RBC) [Ratio] 12.8 % 11.5 - 15.0 % [facility] Hematocrit (Bld) [Volume fraction] 45.6 % 36.0 - 46.0 % [facility] Hemoglobin (Bld) [Mass/Vol] 14.6 g/dL 11.5 - 15.5 g/dL [facility] Immature granulocytes (Bld) [#/Vol] [facility] [place] Immature granulocytes/100 WBC (Bld) 0.3 % [facility] Lymphocytes (Bld) [#/Vol] 2.22 10*3/uL [facility] Lymphocytes/100 WBC (Bld) 31.2 % [facility] MCH (RBC) [Entitic mass] 28.5 pg 26. 0 - 34.0 pg [facility] MCHC (RBC) [Mass/Vol] 32.0 g/dL 30.5 - 36.0 g/dL [facility] MCV (RBC) [Entitic vol] 89.1 fL 80.0 - 100.0 fL [facility] Monocytes (Bld) [#/Vol] 0.57 10*3/uL [facility] [place] Monocytes/100 WBC (Bld) 8.0 % [facility] Neutrophils (Bld) [#/Vol] 4.18 10*3/uL [facility] Neutrophils/100 WBC (Bld) 58.7 % [facility] Nucleated RBC (Bld) [#/Vol] NINF [facility] Nucleated RBC/100 WBC (Bld) [Ratio] 0.0 % /100 WBC [facility] Platelet mean volume (Bld) [Entitic vol] 9.7 fL 9.0 - 12.7 fL [facility] Platelets (Bld) [#/Vol] 301 10*3/uL [facility] RBC (Bld) [#/Vol] 5.12 10*6/uL 3.90 - 5.2 0 m/uL [facility] WBC (Bld) [#/Vol] 7.12 10*3/uL [facility] Inital Evaluation (1) - PTon 12-17-2023 Inital Evaluation (1) - PT [facility] Physical Therapy [facility] [address] [place] [address] [address] [place] [address] / REHABILITATION SERVICES INITIAL EVALUATION MR#: [id number] Acct: [id number] Name: YAMIL NG Rep #: [id number] : 1985 38 From: Modesta Yoder DPT Referring Dr.: Dr. Dennise Gonzalez DO Status: REG [facility] Insurance: [facility] SEL[employer] PAY INSURANCE Patient's Visit Information Visit Information Visit Information: YAMIL NG is a 38 year old F referred to Physical Therapy by Dr. Dennise Gonzalez DO with a diagnosis of Right Knee Pain. Date of Evaluation: 12/17/23 Physical Therapist: Modesta Yoder DPT Visit Plan Frequency: 2x /Week Duration: 4 Weeks Plan: 1x a week aqua and 1x a week land- focus on LE and core strength/stabilization HEP Given IE: Quad set in supine and TKE, Sit to Stand and Single Leg Stance Subjective Subjective: She had surgery on her right knee about 2 years ago- it was good and now its bad again- unsure if its her job or if she needs to do something different. They took out her fat pad and shaved down her patella and rearranged things. 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 The pain is along the medial side of the patella and and along the superior knee. Latasha did the first surgery and she saw Dr. Gonzalez. She has not had any recent x-rays or MRI. Worst: 12/01 Agg: putting any weight through it, pivoting or rotating on it. Eases: nothing that she can think of Best: 2-08/31. She describes the pain as sharp and shooting and its always achy. She does not report consistent buckling. Does have some N.T in the calf and back of the knee. The pain radiate into the thigh and clear down into the foot. 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 Stairs: down are worse than up. Step to on bad days. Sleep: not disturbed. PMHx: epilepsy Meds: kepra, fimpap. No seizure plan- only has them in her sleep. Objective Objective: Posture: forward head, rounded shoulders- can correct with verbal cues but does not maintain throughout session Gait: no deviation noted HR/TR: able without pain SLS: 15 sec with increased muscle activation and reports increased instability Squat: weight shift to the left- increased pain Palpation: tender along medial joint line Observation: quad set visible but diminished right vs. left ROM: 0-135 degrees with pain at end range of flexion Strength: Core: fair minus, Hip: 4-/5 pain with IR/ER: testing, Knee: Extension Right: 22 (3/10) Left: 69 Flexion Right: 15 (5/10) Left: 32 Ankle: 5/5 Flex: HS: moderate, Gastroc: moderate Special Test: patellar mobility: good, LLD: negative Balance/Special Test Scores Lower Extremity Functional Score: 47 Goals Goal 1:: Patient will be I with HEP and progression Goal Time Frame: 6-8 Weeks Goal 2:: Patient will squat with good mechanics Goal Time Frame: 6-8 Weeks Goal 3:: Patient will maintain proper posture t/o tx session to demo increased core s/s Goal Time Frame: 6-8 Weeks Goal 4:: Patient will demo equal strength bilateral LE Goal Time Frame: 6-8 Weeks Goal 5:: Patient will report 80% improvement Goal Time Frame: 6-8 Weeks Rehabilitation Potential Physical Therapy Diagnosis: Patient presents with hypomobility- she has decreased pain free ROM, LE and core strength/stabilization , proprioception, flex and muscular endurance leading to increased pain with ADL's. Rehabilitation Potential: Good Anticipated Interventions Patient/Client Instruction: Educate patient on: Benefits of Fitness Program Therapeutic Exercise to Include: Strength training, Endurance training, Balance training, Coordination, Agility training, Body mechanics, Postural training, Flexibilty training, Gait and locomotor training, Neuromotor development, In an aquatic setting, Passive ROM, Active ROM, Dynamic Lumbar Stabilization and Scapular Strength/Stabilization For the Purpose of:: To improve muscle performance and motor function TENS: Yes Cryotherapy (ice pack, ice massage): Yes Thermo therapy (hot pack): Yes Ultrasound (thermal/non thermal): Yes Text: Thank you for the opportunity to evaluate your patient. For Medicare and Medicare HMO plans, please review the plan of care and approve it. It will need to be FAXED BACK to us at [phone] for Medicare purposes. For Medicare only, by signing this I certify the plan of care. Please let me know if there are questions or concerns regarding this plan of care. Physician Signature: Date:__ 12/17/23 1548 CC: Dr. Dennise Gonzalez DO; Dr. Skip Ignacio MD ELR Signed Normal [facility] DBT Breast - right diagnosti c for implanton 12-10-2023 * * *Final Report* * * DATE OF EXAM: Dec 10 2023 2:57PM [id number] - [facility] NAMRATA ARGUETA RT / PROCEDURE REASON: Abnormal screening mammogram * * * * Physician Interpretation * * * * RESULT: #[id number] - [facility] EDYG W ELLIE RT #[id number] - [facility] US BREAST LTD RT UNILATERAL RIGHT DIGITAL DIAGNOSTIC MAMMOGRAM TOMOSYNTHESIS WITH CAD: 12/10/2023 HISTORY: / Call back/abnormal mamm: Right /priors available for comparison Abnormal Screening Mammogram Abnormal Screening Mammogram. RESULT: TECHNIQUE: The study was acquired using full field digital technology and interpreted from soft copy. Digital Breast Tomosynthesis (DBT) images were obtained and used to assist in the interpretation of this examination. Current study was also evaluated with a Computer Aided Detection (CAD). Comparison is made to exam dated: 11/06/2023 [facility]. The right breast is heterogeneously dense, which may obscure small masses. The density visible in the right breast on the previous exam is no longer present. Additional imaging was obtained. Focal area in question in the right breast in prior mammography is not reproduced and presumably represents superimposed breast tissue. No significant masses or calcifications are seen in the breast. DIVISION OF RADIOLOGY Provider, [facility] - 12/10/2023 * * *Final Report* * * DATE OF EXAM: Dec 10 2023 2:57PM [facility] 0629 - [facility] DIAG W ELLIE RT / PROCEDURE REASON: Abnormal screening mammogram * * * * Physician Interpretation * * * * RESULT: #[id number] - [facility] DIAG W ELLIE RT #[id number] - [facility] BREAST LTD RT UNILATERAL RIGHT DIGITAL DIAGNOSTIC MAMMOGRAM TOMOSYNTHESIS WITH CAD: 12/10/2023 HISTORY: / Call back/abnormal mamm: Right /priors available for comparison Abnormal Screening Mammogram Abnormal Screening Mammogram. RESULT: TECHNIQUE: The study was acquired using full field digital technology and interpreted from soft copy. Digital Breast Tomosynthesis (DBT) images were obtained and used to assist in the interpretation of this examination. Current study was also evaluated with a Computer Aided Detection (CAD). Comparison is made to exam dated: 11/06/2023 [facility]. The right breast is heterogeneously dense, which may obscure small masses. The density visible in the right breast on the previous exam is no longer present. Additional imaging was obtained. Focal area in question in the right breast in prior mammography is not reproduced and presumably represents superimposed breast tissue. No significant masses or calcifications are seen in the breast. IMPRESSION IMPRESSION: BENIGN FINDING There is no mammographic evidence of malignancy. LIMITED ULTRASOUND OF RIGHT BREAST: 12/10/2023 RESULT: Comparison is made to exam dated: 11/06/2023 mammogram - [facility]. Real-time ultrasound of the right breast 10-11 o'clock region was performed. Xavier scale images of the real-time examination were reviewed. IMPRESSION: NEGATIVE There is no sonographic evidence of malignancy. Clinical followup is recommended. Return to annual mammogram screening schedule is recommended. Rafi herr/javier:12/10/2023 15:38:08 Multiple national specialty organizations have released breast cancer screening guidelines for women at average risk for developing breast cancer - guidelines that are based on both evidence and opinion, yet differ on when to start and how often to screen for breast cancer. With representation from Breast Imaging, Internal Medicine, Women's Health, Family Medicine, and Medical/Surgical Oncology, the [facility] has carefully reviewed the data and reached the following consensus: 1) All women should engage in shared decision-making with their providers to decide when to start and how often to screen; 2) All women should have the opportunity to start screening mammography at age 40; 3) For women ages 45-55, we recommend annual screening mammograms; 4) For women ages 55 and over, we support both the transition from an annual to a biennial interval if this aligns more with patient's values and preferences, or continuation with annual screening; 5) All women should discuss with their providers when to stop screening mammograms. Quality Technician(s): Lotus Alfonso, [facility]; RT Mychal(R)(M), [facility] OVERALL STUDY BIRADS: 2 Benign finding Binitrotoluene Operator: Javier Transcribe Date/Time: Dec 10 2023 2:23P Dictated by: RAFI ALBERT MD This examination was interpreted and the report reviewed and electronically signed by: RAFI ALBERT MD on Dec 10 2023 3:38PM [facility] No Panel Informationon 12-09 IMPRESSION: BENIGN FINDING There is no mammographic evidence of malignancy. LIMITED ULTRASOUND OF RIGHT BREAST: 12/10/2023 RESULT: Comparison is made to exam dated: 11/06/2023 mammogram - [facility]. Real-time ultrasound of the right breast 10-11 o'clock region was performed. Xavier scale images of the real-time examination were reviewed. IMPRESSION: NEGATIVE There is no sonographic evidence of malignancy. Clinical followup is recommended. Return to annual mammogram screening schedule is recommended. Rafi herr/javier:12/10/2023 15:38:08 Multiple national specialty organizations have released breast cancer screening guidelines for women at average risk for developing breast cancer - guidelines that are based on both evidence and opinion, yet differ on when to start and how often to screen for breast cancer. With representation from Breast Imaging, Internal Medicine, Women's Health, Family Medicine, and Medical/Surgical Oncology, the [facility] has carefully reviewed the data and reached the following consensus: 1) All women should engage in shared decision-making with their providers to decide when to start and how often to screen; 2) All women should have the opportunity to start screening mammography at age 40; 3) For women ages 45-55, we recommend annual screening mammograms; 4) For women ages 55 and over, we support both the transition from an annual to a biennial interval if this aligns more with patient's values and preferences, or continuation with annual screening; 5) All women should discuss with their providers when to stop screening mammograms. Quality Technician(s): Lotus Alfonso, [facility]; RT Mychal(R)(M), [facility] OVERALL STUDY BIRADS: 2 Benign finding Binitrotoluene Operator: Javier Transcribe Date/Time: Dec 10 2023 2:23P Dictated by: RAFI ALBERT MD This examination was interpreted and the report reviewed and electronically signed by: RAFI ALBERT MD on Dec 10 2023 3:38PM [facility] DIVISION OF RADIOLOGY Radiology Study observation (narrative) Vicki boston [facility] No Panel InformationOrdered By: Cc Provider on 12-10-2023 [facility] US Breast - right limitedon 12-10-2023 * * *Final Report* * * DATE OF EXAM: Dec 10 2023 3:34PM U [id number] - [facility] US BREAST LTD RT / PROCEDURE REASON: Abnormal screening mammogram * * * * Physician Interpretation * * * * #[id number] - [facility] DIAG W ELLIE RT #[id number] - [facility] US BREAST LTD RT UNILATERAL RIGHT DIGITAL DIAGNOSTIC MAMMOGRAM TOMOSYNTHESIS WITH CAD: 12/10/2023 HISTORY: / Call back/abnormal mamm: Right /priors available for comparison Abnormal Screening Mammogram Abnormal Screening Mammogram. RESULT: TECHNIQUE: The study was acquired using full field digital technology and interpreted from soft copy. Digital Breast Tomosynthesis (DBT) images were obtained and used to assist in the interpretation of this examination. Current study was also evaluated with a Computer Aided Detection (CAD). [facility]. The right breast is heterogeneously dense, which may obscure small masses. The density visible in the right breast on the previous exam is no longer present. Additional imaging was obtained. Focal area in question in the right breast in prior mammography is not reproduced and presumably represents superimposed breast tissue. No significant masses or calcifications are seen in the breast. DIVISION OF RADIOLOGY Provider, [facility] - 12/10/2023 * * *Final Report* * * DATE OF EXAM: Dec 10 2023 3:34PM WRU [id number] - [facility] [employer] BREAST [employer] RT / PROCEDURE REASON: Abnormal screening mammogram * * * * Physician Interpretation * * * * #[id number] - [facility] DIAG W ELLIE RT #[id number] - [facility] US BREAST LTD RT UNILATERAL RIGHT DIGITAL DIAGNOSTIC MAMMOGRAM TOMOSYNTHESIS WITH CAD: 12/10/2023 HISTORY: / Call back/abnormal mamm: Right /priors available for comparison Abnormal Screening Mammogram Abnormal Screening Mammogram. RESULT: TECHNIQUE: The study was acquired using full field digital technology and interpreted from soft copy. Digital Breast Tomosynthesis (DBT) images were obtained and used to assist in the interpretation of this examination. Current study was also evaluated with a Computer Aided Detection (CAD). Comparison is made to exam dated: 11/06/2023 mammogram [facility]. The right breast is heterogeneously dense, which may obscure small masses. The density visible in the right breast on the previous exam is no longer present. Additional imaging was obtained. Focal area in question in the right breast in prior mammography is not reproduced and presumably represents superimposed breast tissue. No significant masses or calcifications are seen in the breast. IMPRESSION IMPRESSION: BENIGN FINDING There is no mammographic evidence of malignancy. LIMITED ULTRASOUND OF RIGHT BREAST: 12/10/2023 RESULT: Comparison is made to exam dated: 11/06/2023 mammogram - [facility]. Real-time ultrasound of the right breast 10-11 o'clock region was performed. Xavier scale images of the real-time examination were reviewed. IMPRESSION: NEGATIVE There is no sonographic evidence of malignancy. Clinical followup is recommended. Return to annual mammogram screening schedule is recommended. Rafi herr/javier:12/10/2023 15:38:08 Multiple national specialty organizations have released breast cancer screening guidelines for women at average risk for developing breast cancer - guidelines that are based on both evidence and opinion, yet differ on when to start and how often to screen for breast cancer. With representation from Breast Imaging, Internal Medicine, Women's Health, Family Medicine, and Medical/Surgical Oncology, the [facility] has carefully reviewed the data and reached the following consensus: 1) All women should engage in shared decision-making with their providers to decide when to start and how often to screen; 2) All women should have the opportunity to start screening mammography at age 40; 3) For women ages 45-55, we recommend annual screening mammograms; 4) For women ages 55 and over, we support both the transition from an annual to a biennial interval if this aligns more with patient's values and preferences, or continuation with annual screening; 5) All women should discuss with their providers when to stop screening mammograms. Quality Technician(s): Lotus Alfonso, [facility]; Carmenza Little RT(R)(M), [facility] OVERALL STUDY BIRADS: 2 Benign finding Binitrotoluene Operator: Javier Transcribe Date/Time: Dec 10 2023 2:23P Dictated by : RAFI ALBERT MD This examination was interpreted and the report reviewed and electronically signed by: RAFI ALBERT MD on Dec 10 2023 3:38PM EST [facility] XR Foot - left AP and Latera l and obliqueon 10-24-2023 IMPRESSION: No acute osseous abnormality Binitrotoluene Operator: GILDARDO Transcribe Date/Time: Oct 24 2023 11:43A Dictated by : MARY FINE MD This examination was interpreted and the report reviewed and electronically signed by: MARY FINE MD on Oct 24 2023 11:45AM EST DIVISION OF RADIOLOGY * * *Final Report* * * DATE OF EXAM: Oct 24 2023 11:39AM WOX [id number] - XR FOOT 3V AP/LAT/OBL LT / PROCEDURE REASON: Foot pain, left * * * * Physician Interpretation * * * * EXAMINATION: XR FOOT 3V AP/LAT/OBL LT CLINICAL HISTORY: Left foot pain Technique: XR FOOT 3V AP/LAT/OBL LT -- LEFT with 3 views on 3 images Comparison: None RESULT: No acute fracture or dislocation. Joint spaces are maintained. DIVISION OF RADIOLOGY Provider, [facility] - 10/24/2023 * * *Final Report* * * DATE OF EXAM: Oct 24 2023 11:39AM WOX [id number] - XR FOOT 3V AP/LAT/OBL LT / PROCEDURE REASON: Foot pain, left * * * * Physician Interpretation * * * * EXAMINATION: XR FOOT 3V AP/LAT/OBL LT CLINICAL HISTORY: Left foot pain Technique: XR FOOT 3V AP/LAT/OBL LT -- LEFT with 3 views on 3 images Comparison: None RESULT: No acute fracture or dislocation. Joint spaces are maintained. IMPRESSION IMPRESSION: No acute osseous abnormality Binitrotoluene [facility] Transcribe Date/Time: Oct 24 2023 11:43A Dictated by : MARY FINE MD This examination was interpreted and the report reviewed and electronically signed by: MARY FINE MD on Oct 24 2023 11:45AM [facility] Radiology Study observation (narrative) [facility] XR Foot - left AP and Latera l and obliqueOrdered By: Ccf Provider on 10-24-2023 [facility] CBC panel Auto (Bld)on 10-15 Erythrocyte distribution width (RBC) [Ratio] 13.7 % 11.5 - 15.0 % [facility] Hematocrit (Bld) [Volume fraction] 40.2 % 36.0 - 46.0 % [facility] Hemoglobin (Bld) [Mass/Vol] 13.4 g/dL 11.5 - 15.5 g/dL [facility] Interpretation and review of laboratory results Normal [facility] MCH (RBC) [Entitic mass] 29.4 pg 26. 0 - 34.0 pg [facility] MCHC (RBC) [Mass/Vol] 33.3 g/dL 30.5 - 36.0 g/dL [facility] MCV (RBC) [Entitic vol] 88.2 fL 80.0 - 100.0 fL [facility] Nucleated RBC (Bld) [#/Vol] NINF [facility] Platelet mean volume (Bld) [Entitic vol] 9.5 fL 9.0 - 12.7 fL [facility] Platelets (Bld) [#/Vol] 259 10*3/uL [facility] RBC (Bld) [#/Vol] 4.56 10*6/uL 3.90 - 5.2 0 m/uL [facility] WBC (Bld) [#/Vol] 6.94 10*3/uL [facility] Comprehensive metabolic 2000 panelOrdered By: Teresa Momin on 10-16-2023 Albumin [Mass/Vol] 4.5 g/dL 3.9 - 4.9 g/dL [facility] ALP [Catalytic activity/Vol] 60 U/L 34 - 123 U/L [facility] ALT [Catalytic activity/Vol] 10 U/L 7 - 38 U/L [facility] Anion gap [Moles/Vol] 7 mmol/L Low 9 - 18 mmol/L [facility] AST [Catalytic activity/Vol] 13 U/L 13 - 35 U/L [facility] Bilirubin [Mass/Vol] 0.4 mg/dL 0.2 - 1 .3 mg/dL [facility] Calcium [Mass/Vol] 10.0 mg/dL 8.5 - 10. 2 mg/dL [facility] Chloride [Moles/Vol] 102 mmol/L 97 - 10 5 mmol/L [facility] CO2 [Moles/Vol] 28 mmol/L 22 - 30 mmol/L [facility] Creatinine [Mass/Vol] 0.78 mg/dL 0.58 - 0.96 mg/dL [facility] GFR/1.73 sq M.predicted among non-blacks MDRD (S/P/Bld) [Vol rate/Area] 99 mL/min/{1.73_m2} - PINF [facility] Comment on above: Estimated Glomerular Filtration Rate (eGFR) is calculated using the 2020 CKD-EPI creatinine equation. This equation utilizes serum creatinine, sex, and age as parameters. The creatinine assay has traceable calibration to isotope dilution-mass spectrometry. Refer to KDIGO guidelines for clinical interpretation. In patients with unstable renal function, e.g. those with acute kidney injury, the eGFR may not accurately reflect actual GFR. Glucose [Mass/Vol] 100 mg/dL High 74 - 99 mg/dL [facility] Comment on above: The [place] Diabete s Association (ADA) provides guidance for cutoff values for fasting glucose and random glucose. The ADA defines fasting as no caloric intake for at least 8 hours. Fasting plasma glucose results between 100 to 125 mg/dL indicate increased risk for diabetes (prediabetes). Fasting plasma glucose results greater than or equal to 126 mg/dL meet the criteria for diagnosis of diabetes. In the absence of unequivocal hyperglycemia, results should be confirmed by repeat testing. In a patient with classic symptoms of hyperglycemia or hyperglycemic crisis, random plasma glucose results greater than or equal to 200 mg/dL meet the criteria for diagnosis of diabetes. Reference: Standards of Medical Care in Diabetes 2016, [place] Diabetes Association. Diabetes Care. 2016.39(Suppl 1). Interpretation and review of laboratory results Abnormal [facility] Potassium [Moles/Vol] 3.9 mmol/L 3.7 - 5.1 mmol/L [facility] Protein [Mass/Vol] 7.6 g/dL 6.3 - 8.0 g/dL [facility] Sodium [Moles/Vol] 137 mmol/L 136 - 144 mmol/L [facility] Urea nitrogen [Mass/Vol] 14 mg/dL 7 - 21 mg/d [facility] Culture, Anaerobic Any [facility] tomer 09-28-2023 CUAN NO COLLECTION INFORMATION ON SPECIMEN UNK UNK VAGINAL CUFF CULTURE COLLECTED IN OR #1, 2 Studies have confirmed that Anaerobic Gram Positive Cocci are routinely SUSCEPTABLE to Penicillin and generally susceptible to Beta-lactams and Beta-lactamase inhibitors, Cephalosporins, Carbapenems and Metronidazole. They are showing increased RESISTANCE to Clindamycin Bacteria Spec Anaerobe Cult #3 Prevotella and Porphyromonas species are generally SUSCEPTIBLE to Cefoxitin, Chloramphenicol, and Metronidazole and are usually RESISTANT to Penicillin. Anaerobic cocci Anaerobic cocci Porphyromonas uenonis. Beta Lactamase-Reportable Positive Normal [facility] Comment on above: Performed By: #### M 100.3000, M100.4001, M100.2000 ####[facility] [address] [place], [place], [address] Wound Cultureon 09-27-2023 NO COLLECTION INFORMATION ON SPECIMEN UNK UNK VAGINAL CUFF CULTURE COLLECTED IN OR #2 FORMERLY ACTINOMYCES TURICESIS Organism is too fastidious for routine susceptibility studies. Strep anginosus Amount Growth 1+ Schaalia turicensis Amount Growth 1+ Strep anginosus: REACTION Ampicillin Islt BRENDA <=0.25 S Penicillin G Islt BRENDA <=0.06 S Cefotaxime Islt BRENDA <=0.12 S cefTRIAXone Islt BRENDA <=0.12 S Erythromycin Islt BRENDA 4 R Vancomycin Islt BRENDA 0.5 S Normal [facility] Comment on above: Performed By: #### M 100.3000, M100.4001, M100.1999 ####[facility] [address] [place], [address] Absolute lymphocyte countOrd ered By: Rosenda Valencia on 09-24-2023 Lymphocytes Auto (Unsp spec) [#/Vol] 2.27 10*3/uL 0.83-4.51 [facility] Automated lymphocyte count a s percentage of total leukocytesOrdered By: Rosenda Valencia on 09-24-2023 Lymphocytes/100 WBC Auto (Unsp spec) 28.2 % 19-41 [facility] Basophil percentageOrdered B y: Rosenda Valencia on 09-24-2023 Basophils/100 WBC (Bld) 0.6 % 0-1 [facility] Bilirubin [Mass/Vol] 0.50 mg/dL 0.20-1.00 [facility] Comment on above: For patients on eltr ombopag therapy, use of Dimension [place] TBIL is not recommended. Chloride [Moles/Vol] 114 mmol/L 98-107 [facility] Eosinophils/100 WBC (Bld) 1.1 % 0-5 [facility] Glucose [Mass/Vol] 91 mg/dL 74-106 [facility] Hemoglobin (Bld) [Mass/Vol] 10.2 g/dL 12.0-15.0 [facility] Monocytes/100 WBC (Bld) 6.7 % 0-10 [facility] Neutrophils (Bld) [#/Vol] 5.1 10*3/uL 2.0-7.7 [facility] Neutrophils/100 WBC (Bld) 63.0 % 47-70 [facility] Potassium [Moles/Vol] 3.6 mmol/L 3.5-5.1 [facility] Protein [Mass/Vol] 5.4 g/dL 6.4-8.2 [facility] Sodium [Moles/Vol] 142 mmol/L 136-145 [facility] WBC (Bld) [#/Vol] 8.0 10*3/uL 4.4-11.0 [facility] CBC W/Diff, Automatedon 04-0 -2023 Absolute Lymph 2.27 X10 3/uL Normal 0.83-4.51 [facility] Comment on above: Performed By: #### L 100.0100, L500.4050 #### [facility] [address] [place], [address] Absolute Neut 5.1 X10 3/uL Normal 2.0-7.7 [facility] Comment on above: Performed By: #### L 100.0100, L500.4050 #### [facility] [address] [place], [address] Basophils/100 WBC (Bld) 0.6 % Normal 0-1 [facility] Comment on above: Performed By: #### L 100.0100, L500.4050 #### [facility] [address] [place], [address] Eosinophils/100 WBC (Bld) 1.1 % Normal 0-5 [facility] Comment on above: Performed By: #### L 100.0100, L500.4050 #### [facility] [address] [place], [address] Erythrocyte distribution width (RBC) [Ratio] 12.6 % Normal 11.6-14.6 [facility] Comment on above: Performed By: #### L 100.0100, L500.4050 #### [facility] [address] [place], [address] Hematocrit (Bld) [Volume fraction] 31.4 % Low 37-47 [facility] Comment on above: Performed By: #### L 100.0100, L500.4050 #### [facility] [address] [place], [address] Hemoglobin (Bld) [Mass/Vol] 10.2 g/dL Low 12.0-15.0 [facility] Comment on above: Performed By: #### L 100.0100, L500.4050 #### [facility] [address] [place], [address] IG% 0.400 Normal 0.0-0.9 [facility] Comment on above: Result Comment: IG% - Immature Granulocytes (promyelocytes, myelocytes and metamyelocytes) > 1% indicates that a LEFT SHIFT is Present. Performed By: #### L 100.0100, L500.4050 #### [facility] [address] [place], [address] Lymphocytes/100 WBC (Bld) 28.2 % Normal 19-41 [facility] Comment on above: Performed By: #### L 100.0100, L500.4050 #### [facility] [address] [place], [address] MCH (RBC) [Entitic mass] 28.8 pg Normal 27.0-32.0 [facility] Comment on above: Performed By: #### L 100.0100, L500.4050 #### [facility] [address] [place], [address] MCHC (RBC) [Mass/Vol] 32.5 g/dL Normal 32-36 [facility] Comment on above: Performed By: #### L 100.0100, L500.4050 #### [facility] [address] [place], [address] MCV (RBC) [Entitic vol] 88.7 fL Normal 81-99 [facility] Comment on above: Performed By: #### L 100.0100, L500.4050 #### [facility] [address] [place], [address] Monocytes/100 WBC (Bld) 6.7 % Normal 0-10 [facility] Comment on above: Performed By: #### L 100.0100, L500.4050 #### [facility] [address] [place], [address] Neutrophils/100 WBC (Bld) 63.0 % Normal 47-70 [facility] Comment on above: Performed By: #### L 100.0100, L500.4050 #### [facility] [address] [place], [address] Nucleated RBC (Bld) [#/Vol] 0 10*3/uL Normal 0-5 [facility] Comment on above: Performed By: #### L 100.0100, L500.4050 #### [facility] [address] [place], [address] Platelet mean volume (Bld) [Entitic vol] 9.1 fL Normal 6.2-12.0 [facility] Comment on above: Performed By: #### L 100.0100, L500.4050 #### [facility] [address] [place], [address] Platelets (Bld) [#/Vol] 270 10*3/uL Normal 150-450 [facility] Comment on above: Performed By: #### L 100.0100, L500.4050 #### [facility] [address] [place], [address] RBC (Bld) [#/Vol] 3.54 10*6/uL Low 4.2-5.4 [facility] Comment on above: Performed By: #### L 100.0100, L500.4050 #### [facility] [address] [place], [address] RDW SD 40.6 fl Normal 35.1-43.9 [facility] Comment on above: Performed By: #### L 100.0100, L500.4050 #### [facility] [address] [place], [address] WBC (Bld) [#/Vol] 8.0 10*3/uL Normal 4.4-11.0 [facility] Comment on above: Performed By: #### L 100.0100, L500.4050 #### [facility] [address] [place], [address] Comprehensive Metabolic Prof ilon 09-24-2023 Albumin [Mass/Vol] 2.6 g/dL Low 3.2-5.0 [facility] Comment on above: Performed By: #### L 100.0100, L500.4050 #### [facility] [address] [place], [address] Albumin/Globulin [Mass ratio] 0.9 {ratio} Normal 0.9-2.4 [facility] Comment on above: Performed By: #### L 100.0100, L500.4050 #### [facility] [address] [place], [address] ALK P 42 U/L Low 45-117 [facility] Comment on above: Performed By: #### L 100.0100, L500.4050 #### [facility] [address] [place], [address] ALT [Catalytic activity/Vol] 10 U/L Low 13-56 [facility] Comment on above: Performed By: #### L 100.0100, L500.4050 #### [facility] [address] [place], [address] AST [Catalytic activity/Vol] 10 U/L Low 15-37 [facility] Comment on above: Performed By: #### L 100.0100, L500.4050 #### [facility] [address] [place], [address] Bilirubin [Mass/Vol] 0.50 mg/dL Normal 0.20-1.00 [facility] Comment on above: Result Comment: For patients on eltrombopag therapy, use of Dimension [place] TBIL is not recommended. Performed By: #### L 100.0100, L500.4050 #### [facility] [address] [place], [address] BUN/CRE 11.4 RATIO Normal 10-20 [facility] Comment on above: Performed By: #### L 100.0100, L500.4050 #### [facility] [address] [place], [address] CA,Total 8.1 mg/dL Low 8.5-10.1 [facility] Comment on above: Performed By: #### L 100.0100, L500.4050 #### [facility] [address] [place], [address] Chloride [Moles/Vol] 114 mmol/L High 98-107 [facility] Comment on above: Performed By: #### L 100.0100, L500.4050 #### [facility] [address] [place], [address] CO2 [Moles/Vol] 23.0 mmol/L Normal 21.0-32.0 [facility] Comment on above: Performed By: #### L 100.0100, L500.4050 #### [facility] [address] [place], [address] Creatinine [Mass/Vol] 0.70 mg/dL Normal 0.55-1.02 [facility] Comment on above: Result Comment: The validity of the calculated GFR GFRAA in patients over 70 years has not been determined. Clinical correlation is essential. Performed By: #### L 100.0100, L500.4050 #### [facility] [address] [place], [address] ECRCL 104.50 ml/min Normal [facility] Comment on above: Performed By: #### L 100.0100, L500.4050 #### [facility] [address] [place], [address] EST GFR - AA 119 mL/min Normal >60 [facility] Comment on above: Result Comment: Afri can [place] GFR Calc Performed By: #### L 100.0100, L500.4050 #### [facility] [address] [place], [address] GAP 5 Normal 5-15 [facility] Comment on above: Performed By: #### L 100.0100, L500.4050 #### [facility] [address] [place], [address] GFR/1.73 sq M.predicted among non-blacks MDRD (S/P/Bld) [Vol rate/Area] 98 mL/min/{1.73_m2} Normal >60 [facility] Comment on above: Result Comment: Non- GFR Calc Performed By: #### L 100.0100, L500.4050 #### [facility] [address] [place], [address] Globulin (S) [Mass/Vol] 2.8 g/dL Normal 2.2-4.2 [facility] Comment on above: Performed By: #### L 100.0100, L500.4050 #### [facility] [address] [place], [address] Glucose [Mass/Vol] 91 mg/dL Normal 74-106 [facility] Comment on above: Performed By: #### L 100.0100, L500.4050 #### [facility] [address] [place], [address] Potassium [Moles/Vol] 3.6 mmol/L Normal 3.5-5.1 [facility] Comment on above: Performed By: #### L 100.0100, L500.4050 #### [facility] [address] [place], [address] Sodium [Moles/Vol] 142 mmol/L Normal 136-145 [facility] Comment on above: Performed By: #### L 100.0100, L500.4050 #### [facility] [address] [place], [address] T PROT 5.4 g/dL Low 6.4-8.2 [facility] Comment on above: Performed By: #### L 100.0100, L500.4050 #### [facility] [address] [place], [address] Urea nitrogen [Mass/Vol] 8 mg/dL Normal 7-18 [facility] Comment on above: Performed By: #### L 100.0100, L500.4050 #### [facility] [address] [place], [address] Determination of erythrocyte mean corpuscular volume (MCV)Ordered By: Rosenda Valencia on 09-24-2023 MCV (RBC) [Entitic vol] 88.7 fL 81-99 [facility] Discharge Instructionon 04-0 Discharge Instruction [facility] Medical Records Department [address] [place] [address] Instructions for Home/Discharge Instructions 09/24/23 1324 MR#: [id number] Acct: [id number] Name: YAMIL NG Rep #: [id number] : 1985 38 From: Olu Bacon MD PCP: Dr. Skip Ignacio MD Status:ADM IN Discharge Instructions Diet Discharge Diet: No restrictions Activity Discharge Activity: May Shower May resume sexual activity in: - (when cleared by physician) Weight Bearing Status: Weight bearing as tolerated Dressing / Incision Call your doctor if your incision/area has: Continuous Slow Oozing Call your doctor if you observe: Fever of 101 or Higher, Change in Color, Inability to urinate, Using more than 1 pad per hour, Shortness of breath, Fainting spells, Prolonged hiccupping and Uncontrolled pain Follow Up Care Please Follow Up With: Temitope Acuna When: 1 week Test Results: Test results from this visit will be discussed in further detail at your follow-up appointment, if applicable. Discharge Plan Admission Admit Date/Time: 09/23/23 11:38 Primary Reason for Your Visit: Vaginal cuff surgery Attending Provider: Janay Zeng Primary Care Provider: Skip Ignacio Discharge Orders/Prescriptions Prescriptions: New oxycodone 5 mg Tablet 5 mg PO Q4H PRN PRN (Reason: Pain Score 4-10) 4 Days Qty: 10 0RF Rx Instructions: as needed for pain No Action levetiracetam 500 mg tablet 1,000 mg PO BID Referrals / Follow Up: Care Physician,No Primary [Non-Staff] - Disposition Disposition (needs filled in before D/C Order can be placed): Home, Self Care 09/24/23 1333 Olu Bacon MD CC: Dr. Skip Ignacio MD Signed Normal [facility] Erythrocyte distribution wid th ratioOrdered By: Rosenda Valencia on 09-24-2023 Erythrocyte distribution width (RBC) [Ratio] 12.6 % 11.6-14.6 [facility] Erythrocyte distribution wid th standard deviationOrdered By: Rosenda Valencia on 09-24-2023 Erythrocyte distribution width (RBC) [Entitic vol] 40.6 fL 35.1-43.9 [facility] Hematocrit Auto (Bld) [Volum e fraction]Ordered By: Rosenda Valencia on 09-24-2023 Hematocrit (Bld) [Volume fraction] 31.4 % 37-47 [facility] Immature granulocytes/100 WB C Auto (Bld)Ordered By: Rosenda Valencia on 09-24-2023 Immature granulocytes/100 WBC (Bld) 0.400 % 0.0-0.9 [facility] Comment on above: IG% - Immature Granu locytes (promyelocytes, myelocytes and metamyelocytes) > 1% indicates that a LEFT SHIFT is Present. Laboratory - Chemistry and C hemistry - challengeOrdered By: Rosenda Valencia on 09-24-2023 Albumin/Globulin [Mass ratio] 0.9 {ratio} 0.9-2.4 [facility] ALP [Catalytic activity/Vol] 42 U/L 45-117 [facility] ALT [Catalytic activity/Vol] 10 U/L 13-56 [facility] CO2 [Moles/Vol] 23.0 mmol/L 21.0-32.0 [facility] Globulin (S) [Mass/Vol] 2.8 g/dL 2.2-4.2 [facility] Urea nitrogen/Creatinine [Mass ratio] 11.4 mg/mg 10-20 [facility] Laboratory - Hematology and Cell countsOrdered By: Rosenda Valencia on 09-24-2023 MCH (RBC) [Entitic mass] 28.8 pg 27.0-32.0 [facility] MCHC (RBC) [Mass/Vol] 32.5 g/dL 32-36 [facility] Nucleated RBC/100 WBC (Bld) [Ratio] 0 % 0-5 [facility] Platelet mean volume (Bld) [Entitic vol] 9.1 fL 6.2-12.0 [facility] Platelets (Bld) [#/Vol] 270 10*3/uL 150-450 [facility] No Panel InformationOrdered By: Rosenda Valencia on 09-24-2023 Estimated Creatinine Clearance Calc 104.50 ml/min [facility] Estimated GFR (MDRD) Amer 119 mL/min >60 [facility] Comment on above: GFR Calc Estimated GFR (MDRD) Non-Af Amer 98 mL/min >60 [facility] Comment on above: Non- GFR Calc RBC Auto (Bld) [#/Vol]Ordere d By: Rosenda Valencia on 09-24-2023 RBC (Bld) [#/Vol] 3.54 10*6/uL 4.2-5.4 [facility] Serum or plasma calcium geri urement (mass/volume)Ordered By: Rosenda Valencia on 09-24-2023 Calcium [Mass/Vol] 8.1 mg/dL 8.5-10.1 [facility] Serum or plasma creatinine m easurement (mass/volume)Ordered By: Rosenda Valencia on 09-24-2023 Creatinine [Mass/Vol] 0.70 mg/dL 0.55-1.02 [facility] Comment on above: The validity of the calculated GFR & GFRAA in patients over 70 years has not been determined. Clinical correlation is essential. Serum or plasma urea nitroge n measurement (mass/volume)Ordered By: Rosenda Valencia on 09-24-2023 Urea nitrogen [Mass/Vol] 8 mg/dL 7-18 [facility] Thin prep Papanicolaou smear with manual screeningOrdered By: Rosenda Valencia on 09-24-2023 Thin prep Papanicolaou smear with manual screening 2.6 g/dL 3.2-5.0 [facility] Thin prep Papanicolaou smear with manual screening 10 U/L 15-37 [facility] Thin prep Papanicolaou smear with manual screening 5 5-15 [facility] 12 Lead EKGon 09-23-2023 12 Lead EKG [facility] [address] [place] [address] 12 Lead EKG 09/23/23 1143 MR#: [id number] Acct: [id number] Name: AYMIL NG Rep #: [id number] : 1985 38 From: Nils Haro MD Attending Dr: Foreign Laboy tus: ADM IN Ordering Dr: Janay Zeng MD Date: 09/23/23 Location: [facility] Sex: F C Admitted: 09/23/23 Test Reason : Blood Pressure : / mmHG Vent. Rate : 055 BPM Atrial Rate : 055 BPM P-R Int : 136 ms QRS Dur : 072 ms QT Int : 446 ms P-R-T Axes : 070 052 062 degrees QTc Int : 426 ms Sinus bradycardia Nonspecific T wave abnormality Abnormal ECG Confirmed by Nils Haro ([id number]), technical writer and editor SARITA DIEZ ([id number]) on 09/24/2023 8:10:11 AM Referred By: KASSY Confirmed By:Nils Haro 09/24/23 0810 Date Nils Haro MD CC: Foreign Robb; Dr. Skip Ignacio MD Signed Normal [facility] Basic Metabolic Profile (BMP )on 09-23-2023 BUN/CRE 8.9 RATIO Low 10-20 [facility] Comment on above: Order Comment: TO @P UT IN. Performed By: #### L 500.2500 ####[facility] [address] [place], [address] CA,Total 7.4 mg/dL Low 8.5-10.1 [facility] Comment on above: Order Comment: TO @P UT IN. Performed By: #### L 500.2500 ####[facility] [address] [place], [address] Chloride [Moles/Vol] 111 mmol/L High 98-107 [facility] Comment on above: Order Comment: TO @P UT IN. Performed By: #### L 500.2500 ####[facility] [address] [place], [address] CO2 [Moles/Vol] 24.0 mmol/L Normal 21.0-32.0 [facility] Comment on above: Order Comment: TO @P UT IN. Performed By: #### L 500.2500 ####[facility] [address] [place], [address] Creatinine [Mass/Vol] 1.12 mg/dL High 0.55-1.02 [facility] Comment on above: Order Comment: TO @P UT IN. Result Comment: The validity of the calculated GFR GFRAA in patients over 70 years has not been determined. Clinical correlation is essential. Performed By: #### L 500.2500 ####[facility] [address] [place], [address] ECRCL 65.31 ml/min Normal [facility] Comment on above: Order Comment: TO @P UT IN. Performed By: #### L 500.2500 ####[facility] [address] [place], [address] EST GFR - AA 69 mL/min Normal >60 [facility] Comment on above: Order Comment: TO @P UT IN. Result Comment: Afri can [place] GFR Calc Performed By: #### L 500.2500 ####[facility] [address] [place], [address] GAP 6 Normal 5-15 [facility] Comment on above: Order Comment: TO @P UT IN. Performed By: #### L 500.2500 ####[facility] [address] [place], [address] GFR/1.73 sq M.predicted among non-blacks MDRD (S/P/Bld) [Vol rate/Area] 57 mL/min/{1.73_m2} Low >60 [facility] Comment on above: Order Comment: TO @P UT IN. Result Comment: Non- GFR Calc Performed By: #### L 500.2500 ####[facility] [address] [place], [address] Glucose [Mass/Vol] 153 mg/dL High 74-106 [facility] Comment on above: Order Comment: TO @P UT IN. Result Comment: Fast ing Glucose result greater than or equal to 126 mg/dL suggests DIABETES MELLITUS per A.D.A. criteria. Performed By: #### L 500.2500 ####[facility] [address] [place], [address] Potassium [Moles/Vol] 4.2 mmol/L Normal 3.5-5.1 [facility] Comment on above: Order Comment: TO @P UT IN. Performed By: #### L 500.2500 ####[facility] [address] [place], [address] Sodium [Moles/Vol] 141 mmol/L Normal 136-145 [facility] Comment on above: Order Comment: TO @P UT IN. Performed By: #### L 500.2500 ####[facility] [address] [place], [address] Urea nitrogen [Mass/Vol] 10 mg/dL Normal 7-18 [facility] Comment on above: Order Comment: TO @P [place] Performed By: #### L 500.2500 ####[facility] [id number] [place], [address] Blood platelet adequacy dete ction by light microscopyOrdered By: Rosenda Valencia on 09-23-2023 Platelets LM Ql (Bld) ADEQUATE ADEQ [facility] CBC W/Diff, Automatedon Absolute Lymph 1.96 X10 3/uL Normal 0.83-4.51 [facility] Comment on above: Performed By: #### L 100.0100, L500.4050 #### [facility] [address] [place], [address] Absolute Neut 13.1 X10 3/uL High 2.0-7.7 [facility] Comment on above: Performed By: #### L 100.0100, L500.4050 #### [facility] [address] [place], [address] Basophils/100 WBC (Bld) 0.1 % Normal 0-1 [facility] Comment on above: Performed By: #### L 100.0100, L500.4050 #### [facility] [address] [place], [address] Eosinophils/100 WBC (Bld) 0.0 % Normal 0-5 [facility] Comment on above: Performed By: #### L 100.0100, L500.4050 #### [facility] [address] [place], [id number] Erythrocyte distribution width (RBC) [Ratio] 12.3 % Normal 11.6-14.6 [facility] Comment on above: Performed By: #### L 100.0100, L500.4050 #### [facility] [address] [place], [id number] Hematocrit (Bld) [Volume fraction] 35.3 % Low 37-47 [facility] Comment on above: Performed By: #### L 100.0100, L500.4050 #### [facility] [address] [place], [id number] Hemoglobin (Bld) [Mass/Vol] 11.8 g/dL Low 12.0-15.0 [facility] Comment on above: Performed By: #### L 100.0100, L500.4050 #### [facility] [address] [place], [id number] IG% 0.400 Normal 0.0-0.9 [facility] Comment on above: Result Comment: IG% - Immature Granulocytes (promyelocytes, myelocytes and metamyelocytes) > 1% indicates that a LEFT SHIFT is Present. Performed By: #### L 100.0100, L500.4050 #### [facility] [address] [place], [id number] Lymphocytes/100 WBC (Bld) 12.1 % Low 19-41 [facility] Comment on above: Performed By: #### L 100.0100, L500.4050 #### [facility] [address] [place], [id number] MCH (RBC) [Entitic mass] 28.6 pg Normal 27.0-32.0 [facility] Comment on above: Performed By: #### L 100.0100, L500.4050 #### [facility] [address] [place], [id number] MCHC (RBC) [Mass/Vol] 33.4 g/dL Normal 32-36 [facility] Comment on above: Performed By: #### L 100.0100, L500.4050 #### [facility] [address] [place], [address] MCV (RBC) [Entitic vol] 85.7 fL Normal 81-99 [facility] Comment on above: Performed By: #### L 100.0100, L500.4050 #### [facility] [address] [place], [id number] Monocytes/100 WBC (Bld) 6.6 % Normal 0-10 [facility] Comment on above: Performed By: #### L 100.0100, L500.4050 #### [facility] [address] [place], [id number] Neutrophils/100 WBC (Bld) 80.8 % High 47-70 [facility] Comment on above: Performed By: #### L 100.0100, L500.4050 #### [facility] [address] [place], [id number] Nucleated RBC (Bld) [#/Vol] 0 10*3/uL Normal 0-5 [facility] Comment on above: Performed By: #### L 100.0100, L500.4050 #### [facility] [address] [place], [id number] Platelet mean volume (Bld) [Entitic vol] 8.8 fL Normal 6.2-12.0 [facility] Comment on above: Performed By: #### L 100.0100, L500.4050 #### [facility] [address] [place], [id number] Platelets (Bld) [#/Vol] 344 10*3/uL Normal 150-450 [facility] Comment on above: Performed By: #### L 100.0100, L500.4050 #### [facility] [address] [place], [id number] RBC (Bld) [#/Vol] 4.12 10*6/uL Low 4.2-5.4 [facility] Comment on above: Performed By: #### L 100.0100, L500.4050 #### [facility] [address] [place], [address] RDW SD 38.4 fl Normal 35.1-43.9 [facility] Comment on above: Performed By: #### L 100.0100, L500.4050 #### [facility] [address] [place], [address] WBC (Bld) [#/Vol] 16.2 10*3/uL High 4.4-11.0 [facility] Comment on above: Performed By: #### L 100.0100, L500.4050 #### [facility] [address] [place], [address] PLT EST ADEQUATE Normal ADEQ [facility] Comment on above: Performed By: #### L 500.2500, L100.0100 #### [facility] [address] [place], [address] Absolute Lymph 0.91 X10 3/uL Normal 0.83-4.51 [facility] Comment on above: Performed By: #### L 100.0100 #### [facility] [address] [place], [id number] Absolute Neut 11.5 X10 3/uL High 2.0-7.7 [facility] Comment on above: Performed By: #### L 100.0100 #### [facility] [address] [place], [id number] Basophils/100 WBC (Bld) 0.3 % Normal 0-1 [facility] Comment on above: Performed By: #### L 100.0100 #### [facility] [address] [place], [address] Eosinophils/100 WBC (Bld) 0.1 % Normal 0-5 [facility] Comment on above: Performed By: #### L 100.0100 #### [facility] [address] [place], [address] Erythrocyte distribution width (RBC) [Ratio] 12.3 % Normal 11.6-14.6 [facility] Comment on above: Performed By: #### L 100.0100 #### [facility] [address] [place], [address] Hematocrit (Bld) [Volume fraction] 36.0 % Low 37-47 [facility] Comment on above: Performed By: #### L 100.0100 #### [facility] [address] [place], [address] Hemoglobin (Bld) [Mass/Vol] 11.7 g/dL Low 12.0-15.0 [facility] Comment on above: Performed By: #### L 100.0100 #### [facility] [address] [place], [address] IG% 0.600 Normal 0.0-0.9 [facility] Comment on above: Result Comment: IG% - Immature Granulocytes (promyelocytes, myelocytes and metamyelocytes) > 1% indicates that a LEFT SHIFT is Present. Performed By: #### L 100.0100 #### [facility] [address] [place], [id number] Lymphocytes/100 WBC (Bld) 7.1 % Low 19-41 [facility] Comment on above: Performed By: #### L 100.0100 #### [facility] [address] [place], [id number] MCH (RBC) [Entitic mass] 28.8 pg Normal 27.0-32.0 [facility] Comment on above: Performed By: #### L 100.0100 #### [facility] [address] [place], [id number] MCHC (RBC) [Mass/Vol] 32.5 g/dL Normal 32-36 [facility] Comment on above: Performed By: #### L 100.0100 #### [facility] [address] [place], [id number] MCV (RBC) [Entitic vol] 88.7 fL Normal 81-99 [facility] Comment on above: Performed By: #### L 100.0100 #### [facility] [address] [place], [id number] Monocytes/100 WBC (Bld) 1.3 % Normal 0-10 [facility] Comment on above: Performed By: #### L 100.0100 #### [facility] [address] [place], [address] Neutrophils/100 WBC (Bld) 90.6 % High 47-70 [facility] Comment on above: Performed By: #### L 100.0100 #### [facility] [address] [place], [address] Nucleated RBC (Bld) [#/Vol] 0 10*3/uL Normal 0-5 [facility] Comment on above: Performed By: #### L 100.0100 #### [facility] [address] [place], [address] Platelet mean volume (Bld) [Entitic vol] 8.7 fL Normal 6.2-12.0 [facility] Comment on above: Performed By: #### L 100.0100 #### [facility] [address] [place], [address] Platelets (Bld) [#/Vol] 296 10*3/uL Normal 150-450 [facility] Comment on above: Performed By: #### L 100.0100 #### [facility] [address] [place], [address] RBC (Bld) [#/Vol] 4.06 10*6/uL Low 4.2-5.4 [facility] Comment on above: Performed By: #### L 100.0100 #### [facility] [address] [place], [address] RDW SD 40.0 fl Normal 35.1-43.9 [facility] Comment on above: Performed By: #### L 100.0100 #### [facility] [address] [place], [address] WBC (Bld) [#/Vol] 12.7 10*3/uL High 4.4-11.0 [facility] Comment on above: Performed By: #### L 100.0100 #### [facility] [address] [place], [address] Comprehensive Metabolic Prof [facility] 09-23-2023 Albumin [Mass/Vol] 3.2 g/dL Normal 3.2-5.0 [facility] Comment on above: Performed By: #### L 100.0100, L500.4050 #### [facility] [address] [place], [address] Albumin/Globulin [Mass ratio] 1.0 {ratio} Normal 0.9-2.4 [facility] Comment on above: Performed By: #### L 100.0100, L500.4050 #### [facility] [address] [place], [address] ALK P 53 U/L Normal 45-117 [facility] Comment on above: Performed By: #### L 100.0100, L500.4050 #### [facility] [address] [place], [address] ALT [Catalytic activity/Vol] 13 U/L Normal 13-56 [facility] Comment on above: Performed By: #### L 100.0100, L500.4050 #### [facility] [address] [place], [address] AST [Catalytic activity/Vol] 10 U/L Low 15-37 [facility] Comment on above: Performed By: #### L 100.0100, L500.4050 #### [facility] [address] [place], [address] Bilirubin [Mass/Vol] 0.40 mg/dL Normal 0.20-1.00 [facility] Comment on above: Result Comment: For patients on eltrombopag therapy, use of Dimension [place] TBIL is not recommended. Performed By: #### L 100.0100, L500.4050 #### [facility] [address] [place], [address] BUN/CRE 8.7 RATIO Low 10-20 [facility] Comment on above: Performed By: #### L 100.0100, L500.4050 #### [facility] [address] [place], [address] CA,Total 8.5 mg/dL Normal 8.5-10.1 [facility] Comment on above: Performed By: #### L 100.0100, L500.4050 #### [facility] [address] [place], [address] Chloride [Moles/Vol] 108 mmol/L High 98-107 [facility] Comment on above: Performed By: #### L 100.0100, L500.4050 #### [facility] [address] [place], [address] CO2 [Moles/Vol] 22.0 mmol/L Normal 21.0-32.0 [facility] Comment on above: Performed By: #### L 100.0100, L500.4050 #### [facility] [address] [place], [address] Creatinine [Mass/Vol] 0.80 mg/dL Normal 0.55-1.02 [facility] Comment on above: Result Comment: The validity of the calculated GFR GFRAA in patients over 70 years has not been determined. Clinical correlation is essential. Performed By: #### L 100.0100, L500.4050 #### [facility] [address] [place], [id number] ECRCL 91.43 ml/min Normal [facility] Comment on above: Performed By: #### L 100.0100, L500.4050 #### [facility] [address] [place], [address] EST GFR - AA 102 mL/min Normal >60 [facility] Comment on above: Result Comment: Afri can [place] Citizen GFR Calc Performed By: #### L 100.0100, L500.4050 #### [facility] [address] [place], [address] GAP 9 Normal 5-15 [facility] Comment on above: Performed By: #### L 100.0100, L500.4050 #### [facility] [address] [place], [address] GFR/1.73 sq M.predicted among non-blacks MDRD (S/P/Bld) [Vol rate/Area] 84 mL/min/{1.73_m2} Normal >60 [facility] Comment on above: Result Comment: Non- GFR Calc Performed By: #### L 100.0100, L500.4050 #### [facility] [address] [place], [id number] Globulin (S) [Mass/Vol] 3.2 g/dL Normal 2.2-4.2 [facility] Comment on above: Performed By: #### L 100.0100, L500.4050 #### [facility] [address] [place], [id number] Glucose [Mass/Vol] 89 mg/dL Normal 74-106 [facility] Comment on above: Performed By: #### L 100.0100, L500.4050 #### [facility] [address] [place], [address] Potassium [Moles/Vol] 4.0 mmol/L Normal 3.5-5.1 [facility] Comment on above: Performed By: #### L 100.0100, L500.4050 #### [facility] [address] [place], [address] Sodium [Moles/Vol] 139 mmol/L Normal 136-145 [facility] Comment on above: Performed By: #### L 100.0100, L500.4050 #### [facility] [address] [place], [address] T PROT 6.4 g/dL Normal 6.4-8.2 [facility] Comment on above: Performed By: #### L 100.0100, L500.4050 #### [facility] [address] [place], [address] Urea nitrogen [Mass/Vol] 7 mg/dL Normal 7-18 [facility] Comment on above: Performed By: #### L 100.0100, L500.4050 #### [facility] [address] [place], [address] Gram Stainon 09-23-2023 NO COLLECTION INFORMATION ON SPECIMEN UNK UNK VAGINAL CUFF CULTURE COLLECTED IN OR Gram Stain 4+ Red Blood Cells No organisms seen No White Blood Cells Normal [facility] Comment on above: Performed By: #### M 100.3000, M100.4001, M100.2000 ####[facility] [address] [place], [address] Absolute lymphocyte countOrd ered By: Jose Guadalupe Nieto on 09-22-2023 Lymphocytes Auto (Unsp spec) [#/Vol] 2.39 10*3/uL 0.83-4.51 [facility] Amorphous sediment detection in urine sediment by light microscopyOrdered By: Jose Guadalupe Nieto on 09-22-2023 Amorphous sediment LM Ql (Urine sed) 1+ URATE [facility] Automated lymphocyte count a s percentage of total leukocytesOrdered By: Jose Guadalupe Nieto on 09-22-2023 Lymphocytes/100 WBC Auto (Unsp spec) 27.3 % 19-41 [facility] Basic Metabolic Profile (BMP )on 09-22-2023 BUN/CRE 17.6 RATIO Normal 10-20 [facility] Comment on above: Performed By: #### L 500.2500, L100.0100 #### [facility] [address] [place], [address] CA,Total 9.2 mg/dL Normal 8.5-10.1 [facility] Comment on above: Performed By: #### L 500.2500, L100.0100 #### [facility] [address] [place], [address] Chloride [Moles/Vol] 107 mmol/L Normal 98-107 [facility] Comment on above: Performed By: #### L 500.2500, L100.0100 #### [facility] [address] [place], [address] CO2 [Moles/Vol] 27.0 mmol/L Normal 21.0-32.0 [facility] Comment on above: Performed By: #### L 500.2500, L100.0100 #### [facility] [address] [place], [address] Creatinine [Mass/Vol] 0.74 mg/dL Normal 0.55-1.02 [facility] Comment on above: Result Comment: The validity of the calculated GFR GFRAA in patients over 70 years has not been determined. Clinical correlation is essential. Performed By: #### L 500.2500, L100.0100 #### [facility] [address] [place], [address] ECRCL 93.87 ml/min Normal [facility] Comment on above: Performed By: #### L 500.2500, L100.0100 #### [facility] [address] [place], [address] EST GFR - AA 112 mL/min Normal >60 [facility] Comment on above: Result Comment: Afri can [place] Citizen GFR Calc Performed By: #### L 500.2500, L100.0100 #### [facility] [address] [place], [address] GAP 4 Low 5-15 [facility] Comment on above: Performed By: #### L 500.2500, L100.0100 #### [facility] [address] [place], [address] GFR/1.73 sq M.predicted among non-blacks MDRD (S/P/Bld) [Vol rate/Area] 92 mL/min/{1.73_m2} Normal >60 [facility] Comment on above: Result Comment: Non- GFR Calc Performed By: #### L 500.2500, L100.0100 #### [facility] [address] [place], [address] Glucose [Mass/Vol] 85 mg/dL Normal 74-106 [facility] Comment on above: Performed By: #### L 500.2500, L100.0100 #### [facility] [address] [place], [address] Potassium [Moles/Vol] 3.7 mmol/L Normal 3.5-5.1 [facility] Comment on above: Performed By: #### L 500.2500, L100.0100 #### [facility] [address] [place], [address] Sodium [Moles/Vol] 138 mmol/L Normal 136-145 [facility] Comment on above: Performed By: #### L 500.2500, L100.0100 #### [facility] [address] [place], [address] Urea nitrogen [Mass/Vol] 13 mg/dL Normal 7-18 [facility] Comment on above: Performed By: #### L 500.2500, L100.0100 #### [facility] [address] [place], [address] Basophil percentageOrdered B y: Jose Guadalupe Nieto on 09-22-2023 Basophil percentage 5-10 SEEN /hpf 0-5 [facility] Basophils/100 WBC (Bld) 0.5 % 0-1 [facility] Chloride [Moles/Vol] 107 mmol/L 98-107 [facility] Eosinophils/100 WBC (Bld) 1.9 % 0-5 [facility] Glucose [Mass/Vol] 85 mg/dL 74-106 [facility] Hemoglobin (Bld) [Mass/Vol] 14.1 g/dL 12.0-15.0 [facility] Monocytes/100 WBC (Bld) 8.1 % 0-10 [facility] Neutrophils (Bld) [#/Vol] 5.4 10*3/uL 2.0-7.7 [facility] Neutrophils/100 WBC (Bld) 62.0 % 47-70 [facility] Potassium [Moles/Vol] 3.7 mmol/L 3.5-5.1 [facility] Sodium [Moles/Vol] 138 mmol/L 136-145 [facility] WBC (Bld) [#/Vol] 8.7 10*3/uL 4.4-11.0 [facility] Bilirubin Test strip Ql (U)O rdered By: Jose Guadalupe Nieto on 09-22-2023 Bilirubin Ql (U) Negative Negative [facility] CBC W/Diff, Automatedon -4 Absolute Lymph 2.39 X10 3/uL Normal 0.83-4.51 [facility] Comment on above: Performed By: #### L 500.2500, L100.0100 #### [facility] [address] [place], [address] Absolute Neut 5.4 X10 3/uL Normal 2.0-7.7 [facility] Comment on above: Performed By: #### L 500.2500, L100.0100 #### [facility] [address] [place], [address] Basophils/100 WBC (Bld) 0.5 % Normal 0-1 [facility] Comment on above: Performed By: #### L 500.2500, L100.0100 #### [facility] [address] [place], [address] Eosinophils/100 WBC (Bld) 1.9 % Normal 0-5 [facility] Comment on above: Performed By: #### L 500.2500, L100.0100 #### [facility] [address] [place], [address] Erythrocyte distribution width (RBC) [Ratio] 12.3 % Normal 11.6-14.6 [facility] Comment on above: Performed By: #### L 500.2500, L100.0100 #### [facility] [address] [place], [address] Hematocrit (Bld) [Volume fraction] 42.3 % Normal 37-47 [facility] Comment on above: Performed By: #### L 500.2500, L100.0100 #### [facility] [address] [place], [address] Hemoglobin (Bld) [Mass/Vol] 14.1 g/dL Normal 12.0-15.0 [facility] Comment on above: Performed By: #### L 500.2500, L100.0100 #### [facility] [address] [place], [address] IG% 0.200 Normal 0.0-0.9 [facility] Comment on above: Result Comment: IG% - Immature Granulocytes (promyelocytes, myelocytes and metamyelocytes) > 1% indicates that a LEFT SHIFT is Present. Performed By: #### L 500.2500, L100.0100 #### [facility] [address] [place], [address] Lymphocytes/100 WBC (Bld) 27.3 % Normal 19-41 [facility] Comment on above: Performed By: #### L 500.2500, L100.0100 #### [facility] [address] [place], [address] MCH (RBC) [Entitic mass] 29.1 pg Normal 27.0-32.0 [facility] Comment on above: Performed By: #### L 500.2500, L100.0100 #### [facility] [address] [place], [address] MCHC (RBC) [Mass/Vol] 33.3 g/dL Normal 32-36 [facility] Comment on above: Performed By: #### L 500.2500, L100.0100 #### [facility] [address] [place], [address] MCV (RBC) [Entitic vol] 87.4 fL Normal 81-99 [facility] Comment on above: Performed By: #### L 500.2500, L100.0100 #### [facility] [address] [place], [address] Monocytes/100 WBC (Bld) 8.1 % Normal 0-10 [facility] Comment on above: Performed By: #### L 500.2500, L100.0100 #### [facility] [address] [place], [address] Neutrophils/100 WBC (Bld) 62.0 % Normal 47-70 [facility] Comment on above: Performed By: #### L 500.2500, L100.0100 #### [facility] [address] [place], [address] Nucleated RBC (Bld) [#/Vol] 0 10*3/uL Normal 0-5 [facility] Comment on above: Performed By: #### L 500.2500, L100.0100 #### [facility] [address] [place], [address] Platelet mean volume (Bld) [Entitic vol] 8.9 fL Normal 6.2-12.0 [facility] Comment on above: Performed By: #### L 500.2500, L100.0100 #### [facility] [address] [place], [address] Platelets (Bld) [#/Vol] 346 10*3/uL Normal 150-450 [facility] Comment on above: Performed By: #### L 500.2500, L100.0100 #### [facility] [address] [place], [address] RBC (Bld) [#/Vol] 4.84 10*6/uL Normal 4.2-5.4 [facility] Comment on above: Performed By: #### L 500.2500, L100.0100 #### [facility] [address] [place], [address] RDW SD 39.6 fl Normal 35.1-43.9 [facility] Comment on above: Performed By: #### L 500.2500, L100.0100 #### [facility] [address] [place], [address] WBC (Bld) [#/Vol] 8.7 10*3/uL Normal 4.4-11.0 [facility] Comment on above: Performed By: #### L 500.2500, L100.0100 #### [facility] [address] [place], [address] Determination of erythrocyte mean corpuscular volume (MCV)Ordered By: Jose Guadalupe Nieto on 09-22-2023 MCV (RBC) [Entitic vol] 87.4 fL 81-99 [facility] Emergency Department Summary on 09-22-2023 Emergency Department Summary [facility] Medical Records Department [address] [place] [address] Emergency Department Summary 09/22/23 MR#: [id number] Acct: [id number] Name: YAMIL NG Rep #: [id number] : 1985 38 From: Jose Guadalupe MOYA PCP: Care Physician,No Primary Status:[facility] Location: [place] [address] HPI HPI - Female History of Present Illness Chief Complaint: Vag Bleeding Narrative Narrative: Patient is a 38-year-old female with history of epilepsy who takes Keppra, who presents to the emergency department with vaginal bleeding. Patient had a hysterectomy where the uterus was removed, however patient still has her ovaries on September 04, 2023. Patient did have some bleeding on 16 September which was 5 days ago, saw Dr. Acuna in the office, there might have been some sutures that have been dislodged, however the bleeding did stop, they were able to perform a medication swab in the area. Patient states that roughly 3 hours ago, while not being active, she had sudden onset of significant bleeding where she is going through 3 pads in 1 hour. She is here for evaluation. She states to have some lower abdominal cramping. [facility] Medical History (Updated 09/22/23 @ 21:19 by NITA Vela) Anxiety Epilepsy Ganglion cyst Ureteral stone Home Medications levetiracetam 500 mg tablet 1,000 mg PO BID 08/25/21 [History Last Taken Unknown] Allergy/AdvReac Type Severity Reaction Status Date / Time Bleach (Sodium Hypochlorite) Allergy Hives Verified 09/22/23 18:30 lamotrigine [From Lamictal] Allergy Rash Verified 09/22/23 18:30 tree and shrub pollen Allergy Hives Verified 09/22/23 18:30 Surgical History (Updated 09/22/23 @ 21:12 by Mily Vásquez) H/O right knee surgery H/O: hysterectomy Previous section Social History household members: spouse Smoking Status: Never smoker substance use type: does not use ROS ROS ED ROS Narrative Constitutional: Negative for fever, chills, weight loss, weakness Eyes: Negative for vision loss, vision change, double vision ENT: Negative for any sore throat, ear pain, congestion Cardiovascular: Negative for any chest pain, tightness, palpitations Respiratory: Negative for any cough, sputum production, hemoptysis, dyspnea, dyspnea on exertion, orthopnea Gastrointestinal: Negative for any nausea, vomiting, diarrhea, constipation, blood in stool, blood in vomit. Positive for lower abdominal pain : Negative for any urinary frequency, dysuria, retention, blood in urine. Positive vaginal bleeding Muscle skeletal: Negative for any neck pain, back pain Neurological: Negative for any headache, syncope, dizziness Skin: Negative for any rashes, itching, abrasions, lacerations Psychiatric: Negative for any depression, anxiety, stress, suicidal ideation, homicidal ideation Hematologic: Negative for any excessive bruising, easy bleeding EXAM Physical Exam Narrative Exam Narrative: Vital signs reviewed. Patient is in no obvious distress. Patient's vital signs are stable. HEET: Head normocephalic atraumatic, TMs clear bilaterally. Posterior pharynx is clear, moist mucous membranes. Nares clear bilaterally. Neck: Supple with no lymphadenopathy or tenderness. No signs of meningismus. Cardiac: Regular rate and rhythm no murmurs gallops or rubs, equal peripheral pulses bilaterally. Respiratory: Lungs clear to auscultation bilaterally. No chest tenderness. Abdomen: Soft, nondistended. No abdominal bruit or pulsatile masses. No hepatosplenomegaly. Tenderness to the left lower abdomen, no peritoneal signs. Extremities: No peripheral edema, no signs of gross trauma or deformity. Active full range of motion of all extremities. Neuro: Cranial nerves II through XII intact, no focal neurological deficits. Skin: Clean dry and intact with no rash, purpura, petechiae, vesicles or pustules. Backs/flank: No CVA tenderness, no midline spinal tenderness, no deformity. Psych: Normal mood and affect. No SI, HI or acute psychosis. Const Vital Signs: 09/22/23 18:26 09/22/23 21:00 Temperature 97.2 F L Temperature Source Temporal Pulse Rate 74 Respiratory Rate 16 Blood Pressure 106/79 122/78 H Blood Pressure Mean 88 92 Pulse Ox 100 Oxygen Delivery Method Room Air Positive well nourished and well developed General Appearance ED: well developed Physical Exam Const Vital Signs: 09/22/23 18:26 09/22/23 21:00 Temperature 97.2 F L Temperature Source Temporal Pulse Rate 74 Respiratory Rate 16 Blood Pressure 106/79 122/78 H Blood Pressure Mean 88 92 Pulse Ox 100 Oxygen Delivery Method Room Air MDM MDM Lab Data Labs: Laboratory Results - last 24 hr 09/22/2309/21 (more content not included)... Normal [facility] Erythrocyte distribution wid th ratioOrdered By: Jose Guadalupe Nieto on 09-22-2023 Erythrocyte distribution width (RBC) [Ratio] 12.3 % 11.6-14.6 [facility] Erythrocyte distribution wid th standard deviationOrdered By: Jose Guadalupe Nieto on 09-22-2023 Erythrocyte distribution width (RBC) [Entitic vol] 39.6 fL 35.1-43.9 [facility] Gram stain for investigation of transfusion reactionOrdered By: Foreign Robb on 09-22-2023 Microscopic observation Gram stain Nom (Unsp spec) [facility] Hematocrit Auto (Bld) [Volum e fraction]Ordered By: Jose Guadalupe Nieto on 09-22-2023 Hematocrit (Bld) [Volume fraction] 42.3 % 37-47 [facility] Immature granulocytes/100 WB C Auto (Bld)Ordered By: Jose Guadalupe Nieto on 09-22-2023 Immature granulocytes/100 WBC (Bld) 0.200 % 0.0-0.9 [facility] Comment on above: IG% - Immature Granu locytes (promyelocytes, myelocytes and metamyelocytes) > 1% indicates that a LEFT SHIFT is Present. Ketones Test strip Ql (U)Ord ered By: Jose Guadalupe Nieto on 09-22-2023 Ketones Ql (U) 5 mg/dl Negative [facility] - Chemistry and C hemistry - challengeOrdered By: Jose Guadalupe Nieto on 09-22-2023 CO2 [Moles/Vol] 27.0 mmol/L 21.0-32.0 [facility] Urea nitrogen/Creatinine [Mass ratio] 17.6 mg/mg 10-20 [facility] - Hematology and Cell countsOrdered By: Jose Guadalupe Nieto on 09-22-2023 MCH (RBC) [Entitic mass] 29.1 pg 27.0-32.0 [facility] MCHC (RBC) [Mass/Vol] 33.3 g/dL 32-36 [facility] Nucleated RBC/100 WBC (Bld) [Ratio] 0 % 0-5 [facility] Platelet mean volume (Bld) [Entitic vol] 8.9 fL 6.2-12.0 [facility] Platelets (Bld) [#/Vol] 346 10*3/uL 150-450 [facility] Mucus LM Ql (Urine sed)Order ed By: Jose Guadalupe Nieto on 09-22-2023 Mucus Ql (Urine sed) 0 SEEN /hpf [facility] Nitrite Test strip Ql (U)Ord ered By: Jose Guadalupe Nieto on 09-22-2023 Nitrite Ql (U) Negative Negative [facility] No Panel InformationOrdered By: Jose Guadalupe Nieto on 09-22-2023 Urine RBC > 100 SEEN /hpf 0-5 [facility] Estimated Creatinine Clearance Calc 93.87 ml/min [facility] Estimated GFR (MDRD) Amer 112 mL/min >60 [facility] Comment on above: GFR Calc Estimated GFR (MDRD) Non-Af Amer 92 mL/min >60 [facility] Comment on above: Non- GFR Calc Operative Reporton 4 Operative Report [facility] Medical Records Department [address] [place] [address] Operative Report 09/22/23 2320 MR#: [id number] Acct: [id number] Name: YAMIL NG Rep #: [id number] : 1985 38 From: Janay Zeng MD PCP: Care Physician,No Primary Status:ADM IN Location: [place] [address] Report of Operation Date of Procedure: 09/22/23 Pre-Operative Diagnosis: Vaginal Bleeding s/p hysterectomy on 09/04/23, pelvic abscess Post-Operative Diagnosis: same, vaginal cuff dehiscence Surgery/Procedure Performed:: Exam under anesthesia, revision of vaginal cuff, Pelvic irrigation and insertion of Intraabdominal Drain Description of Surgical Findings:: Exam under anesthesia reveals vaginal cuff dehiscence active vaginal bleeding from the cuff. On laparoscopy they will stuck to the pelvic sidewalls as well as to the vaginal cuff. Prior to reapproximation of the vaginal cuff bowel was not apparent and good visualization of the cuff was appreciated. There was no evisceration of the bowel from the cuff. 15 [place] MARYAM was placed in the left lower quadrant port. Surgeon: Janay Zeng laminator printed circuit boards: None laminator printed circuit boards: Dennis Bradford Type of Anesthesia: General and Local Special Medications: 0.5% marcaine Specimen's removed: none Drains: MARYAM Drain LLQ- 15 [place] citizen Estimated Blood Loss (mL): 100cc Fluids Replaced: 2000cc Description of Procedure: Patient was taken to the operating room where she was placed in the supine position anesthesia was induced. She was then prepped and draped in normal sterile fashion. Arms were tucked in usual position at her side. Her legs were then placed in lithotomy position. Bladder was drained prior to the start of the procedure. At this time weighted speculum was placed in the posterior fornix of the vagina and anterior retractor was placed. Active bleeding from the posterior vaginal cuff was appreciated. At this time it is apparent that the vaginal cuff sutures were not intact and vaginal cuff dehiscence was appreciated. There was no bowel appreciated extruding from the cuff. At this time Nunez catheter was placed. Aerobic and anaerobic cultures were obtained-at the cuff. At this time the vaginal cuff was grasped with Allis clamps. The old sutures were removed. At this time good visualization was still appreciated and Metzenbaum scissors were used to excise a very thin area along the edges of the cuff to ensure healthy viable edges. No obvious areas of necrotic tissue were appreciated. There was no well-formed pelvic abscess that was visualized however palpating past the cuff did feel like a hard mass. Again no bowel was palpable or visualized. Once the cuff edges were bleeding and viable tissue was exposed decision to close an interrupted fashion with 0 PDS in ombwko-[id number] fashion. Excellent hemostasis was appreciated. Once the cuff was reapproximated attention was then turned to the abdominal portion of the procedure. 2 towel clamps were placed on either side of the umbilicus. Half percent Marcaine was injected intraumbilical. Scalpel was used to make a small incision and a 5 mm trocar was placed without difficulty. The abdomen was insufflated and upon inspection there was no well-formed pelvic abscess that could be seen however bowel was stuck to the pelvic area as well as to the left pelvic sidewall. There was no active bleeding intra-abdominally that was appreciated. At this time copious irrigation was performed with 1 L of normal saline and a 15 [place] MARYAM drain was placed through the left lower quadrant port. The drain was then secured using a silk suture. At this time the ports were removed and the umbilical incision was closed using 4-0 Monocryl and Dermabond. Dry sterile dressing was applied to the MARYAM site. Patient will be started on Zosyn every 8 hours. The Nunez catheter was removed and the sponge stick in the vagina was removed. Vaginal sweep was negative. Instrument lap and needle count were correct x 2. Grafts/Implants Used: MARYAM drain Procedure Start Time: 22:13 Procedure Stop Time: 23:27 Complications none Admit VTE Documentation VTE Present on Admission: Yes VTE Mechan Device Prophylaxis: SCD's VTE Pharm Prophylaxis ordered?: No Reason prophylaxis not ordered:: Procedure Not Indicated 09/22/23 2335 Cosigner Signature (if applicable): CC: Foreign Robb; No Primary Care Physician Signed ADDENDUM by Foreign Robb on 09/22/23 at 2352 Addendum prior to closure of vaginal cuff the area was copiously irrigated with Normal Saline. 09/22/23 2352 Cosigner Signature (if applicable): cc: Foreign Robb; No Primary Care Physician * Signed ADDENDUM by Foreign Robb on 09/23/23 at 1352 Addendum There was a filshie clip noted sitting under the right ovary- this was easily (more content not included)... Normal [facility] Pelvis WITH IV Contraston Pelvis WITH IV Contrast [facility] Imaging Services [address] [place] [address] Pelvis WITH IV Contrast MR#: [id number] Acct: [id number] Name: YAMIL NG Rep #: [id number] : 1985 F 38 From: Kwaku [place] PCP: Dr. Skip Ignacio MD Status: DIS IN Study: Pelvis WITH IV Contrast Date of Exam: 09/22/23 Exam# [id number] Ordering Dr: Jose Guadalupe Nieto IRRIGATION PUMP INSTALLERAugustine We are attempting to reach an attending provider to discuss findings. An addendum with communication details will be sent when the communication is complete. [id number] EXAM: CT PELVIS WITH INTRAVENOUS CONTRAST CLINICAL INDICATION: lower abdominal cramping TECHNIQUE: Helically acquired images were obtained of the pelvis with intravenous contrast. This CT exam was performed using one or more of the following dose reduction techniques: automated exposure control, adjustment of the mA and/or kV according to patient size, and/or use of iterative reconstruction technique. CONTRAST: IV 100mL Isovue-370 RADIATION DOSE: CTDIvol = 13.09 mGy, DLP = 449.47 mGy-cm COMPARISON: 9.3.23 FINDINGS: BOWEL: Unremarkable as visualized. No bowel distention. No focal inflammatory change. APPENDIX: Normal-appearing appendix. INTRAPERITONEAL SPACE: Unremarkable. No ascites or other fluid collection. No free air. BLADDER: Unremarkable. REPRODUCTIVE: Hysterectomy changes. 17 mm left ovarian cyst. Residual right tubal ligation clip. BONES/JOINTS: Unremarkable. No suspicious lytic or blastic abnormality. SOFT TISSUES: Umbilical hernia containing fat. LYMPH NODES: Unremarkable. No enlarged lymph nodes. OTHER FINDINGS: Pelvic abscess measures [address]/Pelvis WITH IV Contrast IMPRESSION: Pelvic abscess measures 57 x 35 mm. Electronically Signed: Kwaku Wilson MD at 19:51 EDT , CC: NITA Nieto; Dr. Skip Ignacio MD Binitrotoluene Operator: Signed Normal [facility] Protein Test strip Ql (U)Ord ered By: Jose Guadalupe Nieto on 09-22-2023 Protein Ql (U) 500 mg/dl Negative [facility] RBC Auto (Bld) [#/Vol]Ordere d By: Jose Guadalupe Nieto on 09-22-2023 RBC (Bld) [#/Vol] 4.84 10*6/uL 4.2-5.4 [facility] Serum or plasma calcium geri urement (mass/volume)Ordered By: Jose Guadalupe Nieto on 09-22-2023 Calcium [Mass/Vol] 9.2 mg/dL 8.5-10.1 [facility] Serum or plasma creatinine m easurement (mass/volume)Ordered By: Jose Guadalupe Nieto on 09-22-2023 Creatinine [Mass/Vol] 0.74 mg/dL 0.55-1.02 [facility] Comment on above: The validity of the calculated GFR & GFRAA in patients over 70 years has not been determined. Clinical correlation is essential. Serum or plasma urea nitroge n measurement (mass/volume)Ordered By: Jose Guadalupe Nieto on 09-22-2023 Urea nitrogen [Mass/Vol] 13 mg/dL 7-18 [facility] Squamous epithelial cells de tection in urine sediment by light microscopyOrdered By: Jose Guadalupe Nieto on 09-22-2023 Epithelial cells.squamous LM Ql (Urine sed) 0-5 SEEN /hpf 5-10 [facility] Thin prep Papanicolaou smear with manual screeningOrdered By: Jose Guadalupe Nieto on 09-22-2023 Thin prep Papanicolaou smear with manual screening 4 5-15 [facility] Urinalysis, Completeon 09-21 AMORPHOUS 1+ URATE Normal [facility] Comment on above: Order Comment: COLOR OF URINE MAY AFFECT DIPSTICK RESULTS.CLEAN CATCH Performed By: #### L 400.0001 ####[facility] [id number] [place], [address] EPI,SQUAMOUS 0-5 SEEN Normal 5-10 [facility] Comment on above: Order Comment: COLOR OF URINE MAY AFFECT DIPSTICK RESULTS.CLEAN CATCH Performed By: #### L 400.0001 ####[facility] [id number] [place], [address] RBC > 100 SEEN Normal 0-5 [facility] Comment on above: Order Comment: COLOR OF URINE MAY AFFECT DIPSTICK RESULTS.CLEAN CATCH Performed By: #### L 400.0001 ####[facility] [id number] [place], [address] WBC 5-10 SEEN Normal 0-5 [facility] Comment on above: Order Comment: COLOR OF URINE MAY AFFECT DIPSTICK RESULTS.CLEAN CATCH Performed By: #### L 400.0001 ####[facility] [id number] [place], [address] BACTERIA 0 SEEN Normal None Seen [facility] Comment on above: Order Comment: COLOR OF URINE MAY AFFECT DIPSTICK RESULTS.CLEAN CATCH Performed By: #### L 400.0001 ####[facility] [id number] [place], [address] Mucus Ql (Urine sed) 0 SEEN Normal [facility] Comment on above: Order Comment: COLOR OF URINE MAY AFFECT DIPSTICK RESULTS.CLEAN CATCH Performed By: #### L 400.0001 ####[facility] [id number] [place], [address] Urine blood detectionOrdered By: Jose Guadalupe Nieto on 09-22-2023 RBC Ql (U) 250 /ul Negative [facility] Urine clarityOrdered By: Svetlana Nieto on 09-22-2023 Clarity (U) Cloudy Clear [facility] Urine color determinationOrd ered By: Jose Guadalupe Nieto on 09-22-2023 Color (U) Red Yellow [facility] Urine glucose detectionOrder ed By: Jose Guadalupe Nieto on 09-22-2023 Glucose Ql (U) Normal mg/dl Normal [facility] Urine leukocyte esterase det ection by dipstickOrdered By: Jose Guadalupe Nieto on 09-22-2023 Leukocyte esterase Test strip Ql (U) 100 /ul Negative [facility] Urine pHOrdered By: Jose Guadalupe daniels on 09-22-2023 pH (U) 6.5 [pH] 5.0 - 8.0 [facility] Urine sediment bacteria coun t by microscopy (number/high power field)Ordered By: Jose Guadalupe Nieto on 09-22-2023 Bacteria LM.HPF (Urine sed) [#/Area] 0 /[HPF] None Seen [facility] Urine specific gravity measu rementOrdered By: Jose Guadalupe Nieto on 09-22-2023 Specific gravity (U) [Rel density] 1.010 1.002-1.030 [facility] Urine urobilinogen measureme ntOrdered By: Jose Guadalupe Nieto on 09-22-2023 Urobilinogen Ql (U) Normal mg/dl Normal [facility] CBC W Auto Differential pane l (Bld)on 09-02-2023 Basophils (Bld) [#/Vol] 0.07 10*3/uL <0.11 k/uL [facility] Basophils/100 WBC (Bld) 0.7 % [facility] Differential cell count method Nom (Bld) Auto [facility] Eosinophils (Bld) [#/Vol] 0.13 10*3/uL <0.46 k/uL [facility] Eosinophils/100 WBC (Bld) 1.2 % [facility] Erythrocyte distribution width (RBC) [Ratio] 12.8 % 11.5 - 15.0 % [facility] Hematocrit (Bld) [Volume fraction] 42.2 % 36.0 - 46.0 % [facility] Hemoglobin (Bld) [Mass/Vol] 14.1 g/dL 11.5 - 15.5 g/dL [facility] Immature granulocytes (Bld) [#/Vol] 0.05 10*3/uL <0.10 k/uL [facility] Immature granulocytes/100 WBC (Bld) 0.5 % [facility] Lymphocytes (Bld) [#/Vol] 2.69 10*3/uL 1.00 - 4.00 k/uL [facility] Lymphocytes/100 WBC (Bld) 25.6 % [facility] MCH (RBC) [Entitic mass] 29.2 pg 26. 0 - 34.0 pg [facility] MCHC (RBC) [Mass/Vol] 33.4 g/dL 30.5 - 36.0 g/dL [facility] MCV (RBC) [Entitic vol] 87.4 fL 80.0 - 100.0 fL [facility] Monocytes (Bld) [#/Vol] 0.76 10*3/uL <0.87 k/uL [facility] Monocytes/100 WBC (Bld) 7.2 % [facility] Neutrophils (Bld) [#/Vol] 6.81 10*3/uL 1.45 - 7.50 k/uL [facility] Neutrophils/100 WBC (Bld) 64.8 % [facility] Nucleated RBC (Bld) [#/Vol] <0.01 k/uL [facility] Nucleated RBC/100 WBC (Bld) [Ratio] 0.0 /100 WBC [facility] Platelet mean volume (Bld) [Entitic vol] 8.8 fL Low 9.0 - 12.7 fL [facility] Platelets (Bld) [#/Vol] 299 10*3/uL 150 - 400 k/uL [facility] RBC (Bld) [#/Vol] 4.83 10*6/uL 3.90 - 5.2 0 m/uL [facility] WBC (Bld) [#/Vol] 10.51 10*3/uL 3.70 - 11 .00 k/uL [facility] Comprehensive metabolic 2000 panelon 09-02-2023 Albumin [Mass/Vol] 4.6 g/dL 3.9 - 4.9 g/dL [facility] ALP [Catalytic activity/Vol] 58 U/L 34 - 123 U/L [facility] ALT [Catalytic activity/Vol] 10 U/L 7 - 38 U/L [facility] Anion gap [Moles/Vol] 8 mmol/L Low 9 - 18 mmol/L [facility] AST [Catalytic activity/Vol] 11 U/L Low 13 - 35 U/L [facility] Bilirubin [Mass/Vol] 0.3 mg/dL 0.2 - 1 .3 mg/dL [facility] Calcium [Mass/Vol] 9.8 mg/dL 8.5 - 10. 2 mg/dL [facility] Chloride [Moles/Vol] 101 mmol/L 97 - 10 5 mmol/L [facility] CO2 [Moles/Vol] 30 mmol/L 22 - 30 mmol/L [facility] Creatinine [Mass/Vol] 0.80 mg/dL 0.58 - 0.96 mg/dL [facility] Estimated Glomerular Filtration Rate 96 mL/min/1.73m >=60 mL/min/1.73m [facility] Glucose [Mass/Vol] 73 mg/dL Low 74 - 99 mg/dL [facility] Potassium [Moles/Vol] 3.7 mmol/L 3.7 - 5.1 mmol/L [facility] Protein [Mass/Vol] 7.2 g/dL 6.3 - 8.0 g/dL [facility] Sodium [Moles/Vol] 139 mmol/L 136 - 144 mmol/L [facility] Urea nitrogen [Mass/Vol] 18 mg/dL 7 - 21 mg/d L [facility] Absolute lymphocyte countOrd ered By: Ivana Torres on 02-24-2023 Lymphocytes Auto (Unsp spec) [#/Vol] 2.64 10*3/uL 0.83-4.51 [facility] Basophil percentageOrdered B y: Ivana Torres on 02-24-2023 Basophil percentage 25-50 SEEN /hpf 0-5 [facility] Basophils/100 WBC (Bld) 0.4 % 0-1 [facility] Chloride [Moles/Vol] 110 mmol/L 98-107 [facility] Eosinophils/100 WBC (Bld) 0.3 % 0-5 [facility] Glucose [Mass/Vol] 86 mg/dL 74-106 [facility] Neutrophils (Bld) [#/Vol] 8.6 10*3/uL 2.0-7.7 [facility] Neutrophils/100 WBC (Bld) 71.9 % 47-70 [facility] Potassium [Moles/Vol] 3.2 mmol/L 3.5-5.1 [facility] Sodium [Moles/Vol] 143 mmol/L 136-145 [facility] WBC (Bld) [#/Vol] 11.9 10*3/uL 4.4-11.0 [facility] Bilirubin Test strip Ql (U)O rdered By: Ivana Torres on 02-24-2023 Bilirubin Ql (U) Negative Negative [facility] Blood erythrocytes count (nu mber/volume)Ordered By: Ivana Torres on 02-24-2023 RBC (Bld) [#/Vol] 4.87 10*6/uL 4.2-5.4 [facility] Blood hemoglobin measurement (mass/volume)Ordered By: Ivana Torres on 02-24-2023 Hemoglobin (Bld) [Mass/Vol] 13.5 g/dL 12.0-15.0 [facility] Blood lymphocytes/100 leukoc ytesOrdered By: Ivana Torres on 02-24-2023 Lymphocytes/100 WBC (Bld) 22.2 % 19-41 [facility] Blood monocytes/100 leukocyt esOrdered By: Ivana Torres on 02-24-2023 Monocytes/100 WBC (Bld) 4.9 % 0-10 [facility] Blood platelet mean volumeOr dered By: Ivana Torres on 02-24-2023 Platelet mean volume (Bld) [Entitic vol] 8.5 fL 6.2-12.0 [facility] Determination of erythrocyte mean corpuscular volume (MCV)Ordered By: Ivana Torres on 02-24-2023 MCV (RBC) [Entitic vol] 80.1 fL 81-99 [facility] Hematocrit Auto (Bld) [Volum e fraction]Ordered By: Ivana Torres on 02-24-2023 Hematocrit (Bld) [Volume fraction] 39.0 % 37-47 [facility] Ketones Test strip Ql (U)Ord ered By: Ivana Torres on 02-24-2023 Ketones Ql (U) Negative Negative [facility] Laboratory - Chemistry and C hemistry - challengeOrdered By: Ivana Torres on 02-24-2023 HCG ( test) Ql (U) Negative [facility] Comment on above: Very dilute urine sp ecimens, as indicated by a low specificgravity, may not contain reimbursement representative levels of hCG. If is still suspected, a first morning urinespecimen should be collected 48 hours later and tested. CO2 [Moles/Vol] 25.0 mmol/L 21.0-32.0 [facility] Urea nitrogen/Creatinine [Mass ratio] 11.5 mg/mg 10-20 [facility] Laboratory - Hematology and Cell countsOrdered By: Ivana Torres on 02-24-2023 Erythrocyte distribution width (RBC) [Entitic vol] 52.3 fL 35.1-43.9 [facility] Erythrocyte distribution width (RBC) [Ratio] 17.9 % 11.6-14.6 [facility] Immature granulocytes/100 WBC (Bld) 0.300 % 0.0-0.9 [facility] Comment on above: IG% - Immature Granu locytes (promyelocytes, myelocytes and metamyelocytes) > 1% indicates that a LEFT SHIFT is Present. MCH (RBC) [Entitic mass] 27.7 pg 27.0-32.0 [facility] Nucleated RBC/100 WBC (Bld) [Ratio] 0 % 0-5 [facility] MCHC Auto (RBC) [Mass/Vol]Or dered By: Ivana Torres on 02-24-2023 MCHC (RBC) [Mass/Vol] 34.6 g/dL 32-36 [facility] Mucus LM Ql (Urine sed)Order ed By: Ivana Torres on 02-24-2023 Mucus Ql (Urine sed) 0 SEEN /hpf [facility] Nitrite Test strip Ql (U)Ord ered By: Ivana Torres on 02-24-2023 Nitrite Ql (U) Negative Negative [facility] No Panel InformationOrdered By: Ivana Torres on 02-24-2023 Estimated GFR (MDRD) Amer 93 mL/min >60 [facility] Comment on above: GFR Calc Estimated GFR (MDRD) Non-Af Amer 77 mL/min >60 [facility] Comment on above: Non- GFR Calc Platelets bldOrdered By: Lulu Torres on 02-24-2023 Platelets (Bld) [#/Vol] 322 10*3/uL 150-450 [facility] Protein Test strip Ql (U)Ord ered By: Ivana Torres on 02-24-2023 Protein Ql (U) 30 mg/dl Negative [facility] Serum or plasma calcium geri urement (mass/volume)Ordered By: Ivana Torres on 02-24-2023 Calcium [Mass/Vol] 9.1 mg/dL 8.5-10.1 [facility] Serum or plasma creatinine m easurement (mass/volume)Ordered By: Ivana Torres on 02-24-2023 Creatinine [Mass/Vol] 0.87 mg/dL 0.55-1.02 [facility] Comment on above: The validity of the calculated GFR & GFRAA in patients over 70 years has not been determined. Clinical correlation is essential. Serum or plasma urea nitroge n measurement (mass/volume)Ordered By: Ivana Torres on 02-24-2023 Urea nitrogen [Mass/Vol] 10 mg/dL 7-18 [facility] Squamous epithelial cells de tection in urine sediment by light microscopyOrdered By: Ivana Torres on 02-24-2023 Epithelial cells.squamous LM Ql (Urine sed) 0-5 SEEN /hpf 5-10 [facility] Thin prep Papanicolaou smear with manual screeningOrdered By: Ivana Torres on 02-24-2023 Thin prep Papanicolaou smear with manual screening 8 5-15 [facility] Urine blood detectionOrdered By: Ivana Torres on 02-24-2023 RBC Ql (U) 150 /ul Negative [facility] RBC Ql (U) 0-5 SEEN /hpf 0-5 [facility] Urine clarityOrdered By: Lulu Torres on 02-24-2023 Clarity (U) Clear Clear [facility] Urine color determinationOrd ered By: Ivana Torres on 02-24-2023 Color (U) Straw Yellow [facility] Urine glucose detectionOrder ed By: Ivana Torres on 02-24-2023 Glucose Ql (U) Normal mg/dl Normal [facility] Urine leukocyte esterase det ection by dipstickOrdered By: Ivana Torres on 02-24-2023 Leukocyte esterase Test strip Ql (U) 500 /ul Negative [facility] Urine pHOrdered By: Ivana ahrley on 02-24-2023 pH (U) 7.0 [pH] 5.0 - 8.0 [facility] Urine sediment bacteria coun t by microscopy (number/high power field)Ordered By: Ivana Torres on 02-24-2023 Bacteria LM.HPF (Urine sed) [#/Area] 1 /[HPF] None Seen [facility] Urine specific gravity measu rementOrdered By: Ivana Torres on 02-24-2023 Specific gravity (U) [Rel density] 1.010 1.002-1.030 [facility] Urobilinogen Auto test strip Ql (U)Ordered By: Ivana Torres on 02-24-2023 Urobilinogen Ql (U) Normal mg/dl Normal [facility] COVID NAAT, ROUTINEon 2022 SARS-CoV-2 (COVID-19) RNA VINNIE+probe Ql (Resp) Not detected See [facility] STREP A MOLECULAR (POC)on Procedural Control Valid [facility] Strep A (POCT) Negative Negative [facility] HCG QUAL UR B/Oon 01-30-2023 status Negative neg - pos [facility] Quality Check Yes [facility] CBC W Auto Differential pane l (Bld)on 01-28-2023 Basophils (Bld) [#/Vol] 0.06 10*3/uL <0.11 k/uL [facility] Basophils/100 WBC (Bld) 0.8 % [facility] Differential cell count method Nom (Bld) Auto [facility] Eosinophils (Bld) [#/Vol] 0.07 10*3/uL <0.46 k/uL [facility] Eosinophils/100 WBC (Bld) 0.9 % [facility] Erythrocyte distribution width (RBC) [Ratio] 24.4 % High 11.5 - 15.0 % [facility] Hematocrit (Bld) [Volume fraction] 39.3 % 36.0 - 46.0 % [facility] Hemoglobin (Bld) [Mass/Vol] 12.3 g/dL 11.5 - 15.5 g/dL [facility] Immature granulocytes (Bld) [#/Vol] <0.10 k/uL [facility] Immature granulocytes/100 WBC (Bld) 0.1 % [facility] Lymphocytes (Bld) [#/Vol] 2.57 10*3/uL 1.00 - 4.00 k/uL [facility] Lymphocytes/100 WBC (Bld) 34.5 % [facility] MCH (RBC) [Entitic mass] 24.8 pg Low 26. 0 - 34.0 pg [facility] MCHC (RBC) [Mass/Vol] 31.3 g/dL 30.5 - 36.0 g/dL [facility] MCV (RBC) [Entitic vol] 79.4 fL Low 80.0 - 100.0 fL [facility] Monocytes (Bld) [#/Vol] 0.56 10*3/uL <0.87 k/uL [facility] Monocytes/100 WBC (Bld) 7.5 % [facility] Neutrophils (Bld) [#/Vol] 4.18 10*3/uL 1.45 - 7.50 k/uL [facility] Neutrophils/100 WBC (Bld) 56.2 % [facility] Nucleated RBC (Bld) [#/Vol] <0.01 k/uL [facility] Nucleated RBC/100 WBC (Bld) [Ratio] 0.0 /100 WBC [facility] Platelet mean volume (Bld) [Entitic vol] 8.7 fL Low 9.0 - 12.7 fL [facility] Platelets (Bld) [#/Vol] 296 10*3/uL 150 - 400 k/uL [facility] RBC (Bld) [#/Vol] 4.95 10*6/uL 3.90 - 5.2 0 m/uL [facility] WBC (Bld) [#/Vol] 7.45 10*3/uL 3.70 - 11. 00 k/uL [facility] Absolute lymphocyte countOrd ered By: Dr. Belcher on 11-26-2022 Lymphocytes Auto (Unsp spec) [#/Vol] 1.73 10*3/uL 0.83-4.51 [facility] Basophil percentageOrdered B y: Dr. Belcher on 11-26-2022 Basophil percentage 0-5 SEEN /hpf 0-5 [facility] Basophils/100 WBC (Bld) 0.9 % 0-1 [facility] Chloride [Moles/Vol] 107 mmol/L 98-[address] [facility] Eosinophils/100 WBC (Bld) 0.9 % 0-5 [facility] Glucose [Mass/Vol] 78 mg/dL 74-106 [facility] Neutrophils (Bld) [#/Vol] 3.4 10*3/uL 2.0-7.7 [facility] Neutrophils/100 WBC (Bld) 60.0 % 47-70 [facility] Potassium [Moles/Vol] 3.4 mmol/L 3.5-5.1 [facility] Sodium [Moles/Vol] 140 mmol/L 136-145 [facility] WBC (Bld) [#/Vol] 5.6 10*3/uL 4.4-11.0 [facility] Bilirubin Test strip Ql (U)O rdered By: Dr. Belcher on 11-26-2022 Bilirubin Ql (U) Negative Negative [facility] Blood erythrocytes count (nu mber/volume)Ordered By: Dr. Belcher on 11-26-2022 RBC (Bld) [#/Vol] 4.73 10*6/uL 4.2-5.4 [facility] Blood hemoglobin measurement (mass/volume)Ordered By: Dr. Belcher on 11-26-2022 Hemoglobin (Bld) [Mass/Vol] 8.0 g/dL 12.0-15.0 [facility] Blood lymphocytes/100 leukoc ytesOrdered By: Dr. Belcher on 11-26-2022 Lymphocytes/100 WBC (Bld) 30.9 % 19-41 [facility] Blood monocytes/100 leukocyt esOrdered By: Dr. Belcher on 11-26-2022 Monocytes/100 WBC (Bld) 7.1 % 0-10 [facility] Blood platelet mean volumeOr dered By: Dr. Belcher on 11-26-2022 Platelet mean volume (Bld) [Entitic vol] 8.9 fL 6.2-12.0 [facility] Determination of erythrocyte mean corpuscular volume (MCV)Ordered By: Dr. Belcher on 11-26-2022 MCV (RBC) [Entitic vol] 62.2 fL 81-99 [facility] Hematocrit Auto (Bld) [Volum e fraction]Ordered By: Dr. Belcher on 11-26-2022 Hematocrit (Bld) [Volume fraction] 29.4 % 37-47 [facility] INR in Blood by Coagulation assayOrdered By: Dr. Belcher on 11-26-2022 INR Coag (Bld) [Relative time] 1.0 {INR} [facility] Ketones Test strip Ql (U)Ord ered By: Dr. Belcher on 11-26-2022 Ketones Ql (U) Negative Negative [facility] Laboratory - Chemistry and C hemistry - challengeOrdered By: Dr. Belcher on 11-26-2022 CO2 [Moles/Vol] 27.0 mmol/L 21.0-32.0 [facility] Urea nitrogen/Creatinine [Mass ratio] 17.4 mg/mg 10-20 [facility] Laboratory - CoagulationOrde red By: Dr. Belcher on 11-26-2022 aPTT Coag (Bld) [Time] 30.6 s 24.1-36.2 [facility] PT Coag (PPP) [Time] 13.2 s 11.7-14.9 [facility] Laboratory - Hematology and Cell countsOrdered By: Dr. Belcher on 11-26-2022 Erythrocyte distribution width (RBC) [Entitic vol] 37.4 fL 35.1-43.9 [facility] Erythrocyte distribution width (RBC) [Ratio] 18.0 % 11.6-14.6 [facility] Immature granulocytes/100 WBC (Bld) 0.200 % 0.0-0.9 [facility] Comment on above: IG% - Immature Granu locytes (promyelocytes, myelocytes and metamyelocytes) > 1% indicates that a LEFT SHIFT is Present. MCH (RBC) [Entitic mass] 16.9 pg 27.0-32.0 [facility] Nucleated RBC/100 WBC (Bld) [Ratio] 0 % 0-5 [facility] MCHC Auto (RBC) [Mass/Vol]Or dered By: Dr. Belcher on 11-26-2022 MCHC (RBC) [Mass/Vol] 27.2 g/dL 32-36 [facility] Mucus LM Ql (Urine sed)Order ed By: Dr. Belcher on 11-26-2022 Mucus Ql (Urine sed) RARE /hpf [facility] Nitrite Test strip Ql (U)Ord ered By: Dr. Belcher on 11-26-2022 Nitrite Ql (U) Positive Negative [facility] No Panel InformationOrdered By: Dr. Belcher on 11-26-2022 Estimated Creatinine Clearance Calc 72.65 ml/min [facility] Estimated GFR (MDRD) Amer 94 mL/min >60 [facility] Comment on above: GFR Calc Estimated GFR (MDRD) Non-Af Amer 78 mL/min >60 [facility] Comment on above: Non- GFR Calc Platelets bldOrdered By: Dr. Belcher on 11-26-2022 Platelets (Bld) [#/Vol] 239 10*3/uL 150-450 [facility] Protein Test strip Ql (U)Ord ered By: Dr. Belcher on 11-26-2022 Protein Ql (U) Negative Negative [facility] Serum or plasma calcium geri urement (mass/volume)Ordered By: Dr. Belcher on 11-26-2022 Calcium [Mass/Vol] 9.2 mg/dL 8.5-10.1 [facility] Serum or plasma creatinine m easurement (mass/volume)Ordered By: Dr. Belcher on 11-26-2022 Creatinine [Mass/Vol] 0.86 mg/dL 0.55-1.02 [facility] Comment on above: The validity of the calculated GFR & GFRAA in patients over 70 years has not been determined. Clinical correlation is essential. Serum or plasma urea nitroge n measurement (mass/volume)Ordered By: Dr. Belcher on 11-26-2022 Urea nitrogen [Mass/Vol] 15 mg/dL 7-18 [facility] Squamous epithelial cells de tection in urine sediment by light microscopyOrdered By: Dr. Belcher on 11-26-2022 Epithelial cells.squamous LM Ql (Urine sed) 5-10 SEEN /hpf 5-10 [facility] Thin prep Papanicolaou smear with manual screeningOrdered By: Dr. Belcher on 11-26-2022 Thin prep Papanicolaou smear with manual screening 6 5-15 [facility] Urine blood detectionOrdered By: Dr. Belcher on 11-26-2022 RBC Ql (U) 10 /ul Negative [facility] RBC Ql (U) 0-5 SEEN /hpf 0-5 [facility] Urine clarityOrdered By: Dr. Belcher on 11-26-2022 Clarity (U) Sl. Cloudy Clear [facility] Urine color determinationOrd ered By: Dr. Belcher on 11-26-2022 Color (U) Straw Yellow [facility] Urine glucose detectionOrder ed By: Dr. Belcher on 11-26-2022 Glucose Ql (U) Normal mg/dl Normal [facility] Urine leukocyte esterase det ection by dipstickOrdered By: Dr. Belcher on 11-26-2022 Leukocyte esterase Test strip Ql (U) Negative Negative [facility] Urine pHOrdered By: Dr. Celina lira on 11-26-2022 pH (U) 6.0 [pH] 5.0 - 8.0 [facility] Urine sediment bacteria coun t by microscopy (number/high power field)Ordered By: Dr. Belcher on 11-26-2022 Bacteria LM.HPF (Urine sed) [#/Area] 4 /[HPF] None Seen [facility] Urine specific gravity measu rementOrdered By: Dr. Belcher on 11-26-2022 Specific gravity (U) [Rel density] 1.010 1.002-1.030 [facility] Urobilinogen Auto test strip Ql (U)Ordered By: Dr. Belcher on 11-26-2022 Urobilinogen Ql (U) Normal mg/dl Normal [facility] XR KNEE GENERAL 4V AP BOTH/P A BOTH/LAT/MERC RIGHTon 10-11-2022 [facility] XR Knee - right 4 Viewson IMPRESSION: Findings are suggestive of mild degenerative changes in the right knee. Binitrotoluene Operator: [facility] Transcribe Date/Time: Oct 11 2022 2:15P Dictated by : BENNIE NORIEGA MD This examination was interpreted and the report reviewed and electronically signed by: BENNIE NORIEGA MD on Oct 11 2022 2:17PM [facility] DIVISION OF RADIOLOGY * * *Final Report* * * DATE OF EXAM: Oct 11 2022 2:10PM WOX 5203 - XR KNEE 4V AP/PA BOTH+LAT/BISI RT / PROCEDURE REASON: Acute pain of right knee * * * * Physician Interpretation * * * * EXAM TITLE: XR KNEE 4V AP/PA BOTH+LAT/BISI RT EXAM DATE/TIME: 10/11/2022 2:10 PM COMPARISON: X-ray knee on 09/08/2020 CLINICAL INDICATION/HISTORY: Acute knee pain. TECHNIQUE: AP/PA, lateral and sunrise views of the right knee are presented. FINDINGS: No fractures or subluxations are noted. Tiny marginal bony spurs seen along the posterior aspect of the patella. The joint spaces are well preserved. There is no evidence of joint effusion. The mineralization of the bones is normal. There is no significant soft tissue swelling. DIVISION OF RADIOLOGY Provider, Robinson Monge - 10/11/2022 * * *Final Report* * * DATE OF EXAM: Oct 11 2022 2:10PM WOX 5203 - XR KNEE 4V AP/PA BOTH+LAT/BISI RT / PROCEDURE REASON: Acute pain of right knee * * * * Physician Interpretation * * * * EXAM TITLE: XR KNEE 4V AP/PA BOTH+LAT/BISI RT EXAM DATE/TIME: 10/11/2022 2:10 PM COMPARISON: X-ray knee on 09/08/2020 CLINICAL INDICATION/HISTORY: Acute knee pain. TECHNIQUE: AP/PA, lateral and sunrise views of the right knee are presented. FINDINGS: No fractures or subluxations are noted. Tiny marginal bony spurs seen along the posterior aspect of the patella. The joint spaces are well preserved. There is no evidence of joint effusion. The mineralization of the bones is normal. There is no significant soft tissue swelling. IMPRESSION IMPRESSION: Findings are suggestive of mild degenerative changes in the right knee. Binitrotoluene Operator: [facility] Transcribe Date/Time: Oct 11 2022 2:15P Dictated by : BENNIE NORIEGA MD This examination was interpreted and the report reviewed and electronically signed by: BENNIE NORIEGA MD on Oct 11 2022 2:17PM EST [facility] Radiology Study observation (narrative) Vicki boston [facility] XR Knee - right 4 ViewsOrder ed By: [facility] Provider on 10-11-2022 [facility] STREP A MOLECULAR (POC)on Procedural Control Valid [facility] Strep A (POCT) Positive Abnormal Negative [facility] Absolute lymphocyte countOrd ered By: Dr. Whitley on 06-17-2022 Lymphocytes Auto (Unsp spec) [#/Vol] 1.06 10*3/uL 0.83-4.51 [facility] Basophil percentageOrdered B y: Dr. Whitley on 06-17-2022 Basophils/100 WBC (Bld) 0.7 % 0-1 [facility] Bilirubin [Mass/Vol] 0.30 mg/dL 0.20-1.00 [facility] Comment on above: For patients on eltr ombopag therapy, use of [employer] [place] TBIL is not recommended. Chloride [Moles/Vol] 105 mmol/L 98-107 [facility] Eosinophils/100 WBC (Bld) 0.2 % 0-5 [facility] Glucose [Mass/Vol] 89 mg/dL 74-106 [facility] Neutrophils (Bld) [#/Vol] 2.6 10*3/uL 2.0-7.7 [facility] Neutrophils/100 WBC (Bld) 61.7 % 47-70 [facility] Potassium [Moles/Vol] 3.2 mmol/L 3.5-5.1 [facility] Protein [Mass/Vol] 7.6 g/dL 6.4-8.2 [facility] Sodium [Moles/Vol] 136 mmol/L 136-145 [facility] WBC (Bld) [#/Vol] 4.1 10*3/uL 4.4-11.0 [facility] Blood erythrocytes count (nu mber/volume)Ordered By: Dr. Whitley on 06-17-2022 RBC (Bld) [#/Vol] 4.86 10*6/uL 4.2-5.4 [facility] Blood hemoglobin measurement (mass/volume)Ordered By: Dr. Whitley on 06-17-2022 Hemoglobin (Bld) [Mass/Vol] 8.0 g/dL 12.0-15.0 [facility] Blood lymphocytes/100 leukoc ytesOrdered By: Dr. Whitley on 06-17-2022 Lymphocytes/100 WBC (Bld) 25.6 % 19-41 [facility] Blood monocytes/100 leukocyt esOrdered By: Dr. Whitley on 06-17-2022 Monocytes/100 WBC (Bld) 11.8 % 0-10 [facility] Blood platelet mean volumeOr dered By: Dr. Whitley on 06-17-2022 Platelet mean volume (Bld) [Entitic vol] 9.0 fL 6.2-12.0 [facility] Determination of erythrocyte mean corpuscular volume (MCV)Ordered By: Dr. Whitley on 06-17-2022 MCV (RBC) [Entitic vol] 61.5 fL 81-99 [facility] Direct bilirubinOrdered By: Dr. Whitley on 06-17-2022 Bilirubin.direct [Mass/Vol] 0.11 mg/dL 0.00-0.30 [facility] Hematocrit Auto (Bld) [Volum e fraction]Ordered By: Dr. Whitley on 06-17-2022 Hematocrit (Bld) [Volume fraction] 29.9 % 37-47 [facility] Influenza virus A and B and SARS-CoV-2 (COVID-19) Ag panel - Upper respiratory specimOrdered By: Dr. Whitley on 06-17-2022 SARS-CoV-2 (COVID-19) RNA VINNIE+probe Ql (Resp) [facility] Laboratory - Chemistry and C hemistry - challengeOrdered By: Dr. Whitley on 06-17-2022 ALP [Catalytic activity/Vol] 43 U/L 45-117 [facility] ALT [Catalytic activity/Vol] 21 U/L 13-56 [facility] CO2 [Moles/Vol] 24.0 mmol/L 21.0-32.0 [facility] Globulin (S) [Mass/Vol] 3.8 g/dL 2.2-4.2 [facility] Lipase [Catalytic activity/Vol] 215 U/L 73-393 [facility] Urea nitrogen/Creatinine [Mass ratio] 14.8 mg/mg 10-20 [facility] Laboratory - Hematology and Cell countsOrdered By: Dr. Whitley on 06-17-2022 Erythrocyte distribution width (RBC) [Entitic vol] 38.0 fL 35.1-43.9 [facility] Erythrocyte distribution width (RBC) [Ratio] 17.9 % 11.6-14.6 [facility] Immature granulocytes/100 WBC (Bld) 0.000 % 0.0-0.9 [facility] Comment on above: IG% - Immature Granu locytes (promyelocytes, myelocytes and metamyelocytes) > 1% indicates that a LEFT SHIFT is Present. MCH (RBC) [Entitic mass] 16.5 pg 27.0-32.0 [facility] Nucleated RBC/100 WBC (Bld) [Ratio] 0 % 0-5 [facility] MCHC Auto (RBC) [Mass/Vol]Or dered By: Dr. Whitley on 06-17-2022 MCHC (RBC) [Mass/Vol] 26.8 g/dL 32-36 [facility] No Panel InformationOrdered By: Dr. Whitley on 06-17-2022 Estimated Creatinine Clearance Calc 77.90 ml/min [facility] Estimated GFR (MDRD) Amer 101 mL/min >60 [facility] Comment on above: GFR Calc Estimated GFR (MDRD) Non-Af Amer 83 mL/min >60 [facility] Comment on above: Non- GFR Calc Platelets bldOrdered By: Dr. Whitley on 06-17-2022 Platelets (Bld) [#/Vol] 235 10*3/uL 150-450 [facility] Serum or plasma albumin geri urement (mass/volume)Ordered By: Dr. Whitley on 06-17-2022 Albumin [Mass/Vol] 3.8 g/dL 3.2-5.0 [facility] Serum or plasma calcium geri urement (mass/volume)Ordered By: Dr. Whitley on 06-17-2022 Calcium [Mass/Vol] 9.1 mg/dL 8.5-10.1 [facility] Serum or plasma creatinine m easurement (mass/volume)Ordered By: Dr. Whitley on 06-17-2022 Creatinine [Mass/Vol] 0.81 mg/dL 0.55-1.02 [facility] Comment on above: The validity of the calculated GFR & GFRAA in patients over 70 years has not been determined. Clinical correlation is essential. Serum or plasma urea nitroge n measurement (mass/volume)Ordered By: Dr. Whitley on 06-17-2022 Urea nitrogen [Mass/Vol] 12 mg/dL 7-18 [facility] Thin prep Papanicolaou smear with manual screeningOrdered By: Dr. Whitley on 06-17-2022 Thin prep Papanicolaou smear with manual screening 16 U/L 15-37 [facility] Thin prep Papanicolaou smear with manual screening 7 5-15 [facility] Basophil percentageon 2021 Basophil percentage 0-5 SEEN /hpf 0-5 [facility] Work Phone: Bilirubin Test strip Ql (U)o n 02-05-2022 Bilirubin Ql (U) Negative Negative [facility] Work Phone: Ketones Test strip Ql (U)on 02-05-2022 Ketones Ql (U) Negative Negative [facility] Work Phone: Mucus LM Ql (Urine sed)on Mucus Ql (Urine sed) 0 SEEN /hpf [facility] Work Phone: Nitrite Test strip Ql (U)on 02-05-2022 Nitrite Ql (U) Positive Negative [facility] Work Phone: Protein Test strip Ql (U)on 02-05-2022 Protein Ql (U) Negative Negative [facility] Work Phone: Squamous epithelial cells de tection in urine sediment by light microscopyon 02-05-2022 Epithelial cells.squamous LM Ql (Urine sed) 5-10 SEEN /hpf 5-10 [facility] Work Phone: Urine blood detectionon 01-22 RBC Ql (U) Negative Negative [facility] Work Phone: RBC Ql (U) 0 SEEN /hpf 0-5 [facility] Work Phone: Urine clarityon 02-05-2022 Clarity (U) Sl. Cloudy Clear [facility] Work Phone: Urine color determinationon 02-05-2022 Color (U) Straw Yellow [facility] Work Phone: Urine glucose detectionon Glucose Ql (U) Normal mg/dl Normal [facility] Work Phone: Urine leukocyte esterase det ection by dipstickon 02-05-2022 Leukocyte esterase Test strip Ql (U) 100 /ul Negative [facility] Work Phone: Urine pHon 02-05-2022 pH (U) 6.0 [pH] 5.0 - 8.0 [facility] Work Phone: Urine sediment bacteria coun t by microscopy (number/high power field)on 02-05-2022 Bacteria LM.HPF (Urine sed) [#/Area] 3 /[HPF] None Seen [facility] Work Phone: Urine specific gravity measu rementon 02-05-2022 Specific gravity (U) [Rel density] 1.015 1.002-1.030 [facility] Work Phone: Urobilinogen Auto test strip Ql (U)on 02-05-2022 Urobilinogen Ql (U) Normal mg/dl Normal [facility] Work Phone: Absolute lymphocyte counton 11-23-2021 Lymphocytes Auto (Unsp spec) [#/Vol] 2.91 10*3/uL 0.83-4.51 [facility] Work Phone: Basophil percentageon 2021 Basophils/100 WBC (Bld) 0.4 % 0-1 [facility] Work Phone: Chloride [Moles/Vol] 106 mmol/L 98-107 [facility] Work Phone: Eosinophils/100 WBC (Bld) 0.1 % 0-5 [facility] Work Phone: Glucose [Mass/Vol] 79 mg/dL 74-106 [facility] Work Phone: Neutrophils (Bld) [#/Vol] 7.6 10*3/uL 2.0-7.7 [facility] Work Phone: Neutrophils/100 WBC (Bld) 66.9 % 47-70 [facility] Work Phone: Potassium [Moles/Vol] 3.3 mmol/L 3.5-5.1 [facility] Work Phone: Sodium [Moles/Vol] 138 mmol/L 136-145 [facility] Work Phone: WBC (Bld) [#/Vol] 11.3 10*3/uL 4.4-11.0 [facility] Work Phone: Blood erythrocytes count (nu mber/volume)on 11-23-2021 RBC (Bld) [#/Vol] 4.91 10*6/uL 4.2-5.4 [facility] Work Phone: Blood hemoglobin measurement (mass/volume)on 11-23-2021 Hemoglobin (Bld) [Mass/Vol] 8.5 g/dL 12.0-15.0 [facility] Work Phone: Blood lymphocytes/100 leukoc yteson 11-23-2021 Lymphocytes/100 WBC (Bld) 25.7 % 19-41 [facility] Work Phone: [phone] Blood monocytes/100 leukocyt eson 11-23-2021 Monocytes/100 WBC (Bld) 6.6 % 0-10 [facility] Work Phone: Blood platelet adequacy dete ction by light microscopyon 11-23-2021 Platelets LM Ql (Bld) SLT DEC ADEQ [facility] Work Phone: [phone] Blood platelet mean volumeon 11-23-2021 Platelet mean volume (Bld) [Entitic vol] TNP [facility] Work Phone: Comment on above: Test not performed Determination of erythrocyte mean corpuscular volume (MCV)on 11-23-2021 MCV (RBC) [Entitic vol] 63.1 fL 81-99 [facility] Work Phone: Hematocrit Auto (Bld) [Volum e fraction]on 11-23-2021 Hematocrit (Bld) [Volume fraction] 31.0 % 37-47 [facility] Work Phone: Laboratory - Chemistry and C hemistry - challengeon 11-23-2021 CO2 [Moles/Vol] 24.0 mmol/L 21.0-32.0 [facility] Work Phone: Urea nitrogen/Creatinine [Mass ratio] 19.8 mg/mg 10-20 [facility] Work Phone: Laboratory - Hematology and Cell countson 11-23-2021 Erythrocyte distribution width (RBC) [Entitic vol] 38.5 fL 35.1-43.9 [facility] Work Phone: [phone] Erythrocyte distribution width (RBC) [Ratio] 17.4 % 11.6-14.6 [facility] Work Phone: [phone] Immature granulocytes/100 WBC (Bld) 0.300 % 0.0-0.9 [facility] Work Phone: [phone] Comment on above: IG% - Immature Granu locytes (promyelocytes, myelocytes and metamyelocytes) > 1% indicates that a LEFT SHIFT is Present. MCH (RBC) [Entitic mass] 17.3 pg 27.0-32.0 [facility] Work Phone: [phone] Nucleated RBC/100 WBC (Bld) [Ratio] 0 % 0-5 [facility] Work Phone: [phone] MCHC Auto (RBC) [Mass/Vol]on 11-23-2021 MCHC (RBC) [Mass/Vol] 27.4 g/dL 32-36 [facility] Work Phone: [phone] No Panel Informationon 11-23 Troponin I High Sensitivity < 3 pg/mL 3.0-54.0 [facility] Work Phone: [phone] Comment on above: Please Note: New Bev t Units and Gender Specific Reference Ranges. For more information see Policy Stat Procedure [place] High Sensitivity Troponin (TNIH) and attachments. Estimated Creatinine Clearance Calc 77.90 ml/min [facility] Work Phone: [phone] Estimated GFR (MDRD) Amer 102 mL/min >60 [facility] Work Phone: [phone] Comment on above: GFR Calc Estimated GFR (MDRD) Non-Af Amer 84 mL/min >60 [facility] Work Phone: [phone] Comment on above: Non- GFR Calc Platelets bldon 11-23-2021 Platelets (Bld) [#/Vol] TNP [facility] Work Phone: [phone] Comment on above: Test not performedPl ease note: For this sample, a platelet estimate is provided rather than a platelet count due to platelet clumping. Other parameters associated with this sample are not affected by platelet clumping. If a more accurate platelet count is required, a redraw of the patient will be necessary. Serum or plasma calcium geri urement (mass/volume)on 11-23-2021 Calcium [Mass/Vol] 9.9 mg/dL 8.5-10.1 [facility] Work Phone: Serum or plasma creatinine m easurement (mass/volume)on 11-23-2021 Creatinine [Mass/Vol] 0.81 mg/dL 0.55-1.02 [facility] Work Phone: Comment on above: The validity of the calculated GFR & GFRAA in patients over 70 years has not been determined. Clinical correlation is essential. Serum or plasma urea nitroge n measurement (mass/volume)on 11-23-2021 Urea nitrogen [Mass/Vol] 16 mg/dL 7-18 [facility] Work Phone: Thin prep Papanicolaou smear with manual screeningon 11-23-2021 Thin prep Papanicolaou smear with manual screening 8 5-15 [facility] Work Phone: XR FOOT GENERAL 3V AP/LAT/OB L RIGHTon 11-21-2021 [facility] XR Foot - right AP and Later al and obliqueon 11-21-2021 IMPRESSION: No acute process. Tiny Achilles tendon enthesophyte Binitrotoluene Operator: GILDARDO Transcribe Date/Time: Nov 21 2021 4:30P Dictated by : YOAN ELI MD This examination was interpreted and the report reviewed and electronically signed by: YOAN ELI MD on Nov 21 2021 4:31PM EST ZZZ_DO_NOT_U SE_DIVISION OF RADIOLOGY * * *Final Report* * * DATE OF EXAM: Nov 21 2021 4:26PM WOX 5337 - XR FOOT 3V AP/LAT/OBL RT / PROCEDURE REASON: Foot pain, right * * * * Physician Interpretation * * * * EXAMINATION: XR FOOT 3V AP/LAT/OBL RT HISTORY: Foot pain, right . TECHNIQUE: XR FOOT 3V AP/LAT/OBL RT Laterality: RIGHT Number of different views (projections): 3 M: XB_1 COMPARISON: There are no prior relevant studies for comparison. RESULT: Standing frontal radiographs of the bilateral feet with oblique and lateral weightbearing views of the right foot show no acute osseous, articular or soft tissue process. Joint spaces are preserved. Lateral view demonstrates a small calcaneal spur at the Achilles tendon insertion. [id number]_U SE_DIVISION OF RADIOLOGY Provider, [facility] - 11/21/2021 * * *Final Report* * * DATE OF EXAM: Nov 21 2021 4:26PM WOX 5337 - XR FOOT 3V AP/LAT/OBL RT / PROCEDURE REASON: Foot pain, right * * * * Physician Interpretation * * * * EXAMINATION: XR FOOT 3V AP/LAT/OBL RT HISTORY: Foot pain, right . TECHNIQUE: XR FOOT 3V AP/LAT/OBL RT Laterality: RIGHT Number of different views (projections): 3 M: XB_1 COMPARISON: There are no prior relevant studies for comparison. RESULT: Standing frontal radiographs of the bilateral feet with oblique and lateral weightbearing views of the right foot show no acute osseous, articular or soft tissue process. Joint spaces are preserved. Lateral view demonstrates a small calcaneal spur at the Achilles tendon insertion. IMPRESSION IMPRESSION: No acute process. Tiny Achilles tendon enthesophyte Binitrotoluene Operator: [facility] Transcribe Date/Time: Nov 21 2021 4:30P Dictated by : YOAN ELI MD This examination was interpreted and the report reviewed and electronically signed by: YOAN ELI MD on Nov 21 2021 4:31PM EST [facility] Radiology Study observation (narrative) Vicki boston [facility] XR Foot - right AP and Later al and obliqueOrdered By: [facility] Provider on 11-21-2021 [facility] Absolute lymphocyte counton 08-25-2021 Lymphocytes Auto (Unsp spec) [#/Vol] 1.52 10*3/uL 0.83-4.51 [facility] Work Phone: Basophil percentageon 2021 Basophil percentage 5-10 SEEN /hpf [facility] Work Phone: Basophils/100 WBC (Bld) 0.6 % 0-1 [facility] Work Phone: Bilirubin [Mass/Vol] 0.20 mg/dL 0.20-1.00 [facility] Work Phone: Comment on above: For patients on eltr ombopag therapy, use of Dimension [place] TBIL is not recommended. Chloride [Moles/Vol] 106 mmol/L 98-107 [facility] Work Phone: Eosinophils/100 WBC (Bld) 1.0 % 0-5 [facility] Work [phone] Glucose [Mass/Vol] 94 mg/dL 74-106 [facility] Work Phone: Neutrophils (Bld) [#/Vol] 3.2 10*3/uL 2.0-7.7 [facility] Work Phone: Neutrophils/100 WBC (Bld) 61.6 % 47-70 [facility] Work Phone: Potassium [Moles/Vol] 3.5 mmol/L 3.5-5.1 [facility] Work Phone: Protein [Mass/Vol] 7.9 g/dL 6.4-8.2 [facility] Work Phone: Sodium [Moles/Vol] 138 mmol/L 136-145 [facility] Work Phone: WBC (Bld) [#/Vol] 5.2 10*3/uL 4.4-11.0 [facility] Work Phone: Beta hCG serum qualon 2021 Beta HCG ( test) Ql Negative [facility] Work Phone: Bilirubin Test strip Ql (U)o n 08-25-2021 Bilirubin Ql (U) Negative Negative [facility] Work Phone: Blood erythrocytes count (nu mber/volume)on 08-25-2021 RBC (Bld) [#/Vol] 4.84 10*6/uL 4.2-5.4 [facility] Work Phone: Blood hemoglobin measurement (mass/volume)on 08-25-2021 Hemoglobin (Bld) [Mass/Vol] 8.6 g/dL 12.0-15.0 [facility] Work Phone: Blood lymphocytes/100 leukoc yteson 08-25-2021 Lymphocytes/100 WBC (Bld) 29.1 % 19-41 [facility] Work Phone: Blood monocytes/100 leukocyt eson 08-25-2021 Monocytes/100 WBC (Bld) 7.3 % 0-10 [facility] Work Phone: Blood platelet mean volumeon 08-25-2021 Platelet mean volume (Bld) [Entitic vol] 9.1 fL 6.2-12.0 [facility] Work Phone: Culture, urineon 08-25-2021 Bacteria identified Cx Nom (U) Presumptive C albicans [facility] Work Phone: [phone] Bacteria identified Cx Nom (U) Positive [facility] Work Phone: Determination of erythrocyte mean corpuscular volume (MCV)on 08-25-2021 MCV (RBC) [Entitic vol] 63.4 fL 81-99 [facility] Work Phone: [phone] Hematocrit Auto (Bld) [Volum e fraction]on 08-25-2021 Hematocrit (Bld) [Volume fraction] 30.7 % 37-47 [facility] Work Phone: Ketones Test strip Ql (U)on 08-25-2021 Ketones Ql (U) Negative Negative [facility] Work Phone: Laboratory - Chemistry and C hemistry - challengeon 08-25-2021 ALP [Catalytic activity/Vol] 46 U/L 45-117 [facility] Work Phone: ALT [Catalytic activity/Vol] 18 U/L 13-56 [facility] Work Phone: CO2 [Moles/Vol] 28.0 mmol/L 21.0-32.0 [facility] Work Phone: Globulin (S) [Mass/Vol] 4.0 g/dL 2.2-4.2 [facility] Work Phone: [phone] Urea nitrogen/Creatinine [Mass ratio] 15.7 mg/mg 10-20 [facility] Work Phone: [phone] Laboratory - Hematology and Cell countson 08-25-2021 Erythrocyte distribution width (RBC) [Entitic vol] 38.0 fL 35.1-43.9 [facility] Work Phone: [phone] Erythrocyte distribution width (RBC) [Ratio] 16.8 % 11.6-14.6 [facility] Work Phone: [phone] Immature granulocytes/100 WBC (Bld) 0.400 % 0.0-0.9 [facility] Work Phone: [phone] Comment on above: IG% - Immature Granu locytes (promyelocytes, myelocytes and metamyelocytes) > 1% indicates that a LEFT SHIFT is Present. MCH (RBC) [Entitic mass] 17.8 pg 27.0-32.0 [facility] Work Phone: [phone] Nucleated RBC/100 WBC (Bld) [Ratio] 0 % 0-5 [facility] Work Phone: [phone] MCHC Auto (RBC) [Mass/Vol]on 08-25-2021 MCHC (RBC) [Mass/Vol] 28.0 g/dL 32-36 [facility] Work Phone: [phone] Mucus LM Ql (Urine sed)on Mucus Ql (Urine sed) 0 SEEN /hpf [facility] Work Phone: [phone] Nitrite Test strip Ql (U)on 08-25-2021 Nitrite Ql (U) Positive Negative [facility] Work Phone: [phone] No Panel Informationon 08-25 Estimated Creatinine Clearance Calc 83.02 ml/min [facility] Work Phone: [phone] Estimated GFR (MDRD) Amer 109 mL/min >60 [facility] Work Phone: [phone] Comment on above: GFR Calc Estimated GFR (MDRD) Non-Af Amer 90 mL/min >60 [facility] Work Phone: Comment on above: Non- GFR Calc Platelets bldon 08-25-2021 Platelets (Bld) [#/Vol] 267 10*3/uL 150-450 [facility] Work Phone: [phone] Protein Test strip Ql (U)on 08-25-2021 Protein Ql (U) Negative Negative [facility] Work Phone: [phone] Serum or plasma albumin geri urement (mass/volume)on 08-25-2021 Albumin [Mass/Vol] 3.9 g/dL 3.2-5.0 [facility] Work Phone: [phone] Serum or plasma albumin/glob ulin mass ratioon 08-25-2021 Albumin/Globulin [Mass ratio] 1.0 {ratio} 0.9-2.4 [facility] Work Phone: [phone] Serum or plasma calcium geri urement (mass/volume)on 08-25-2021 Calcium [Mass/Vol] 9.2 mg/dL 8.5-10.1 [facility] Work Phone: [phone] Serum or plasma creatinine m easurement (mass/volume)on 08-25-2021 Creatinine [Mass/Vol] 0.76 mg/dL 0.55-1.02 [facility] Work Phone: Comment on above: The validity of the calculated GFR & GFRAA in patients over 70 years has not been determined. Clinical correlation is essential. Serum or plasma urea nitroge n measurement (mass/volume)on 08-25-2021 Urea nitrogen [Mass/Vol] 12 mg/dL 7-18 [facility] Work Phone: [phone] Squamous epithelial cells de tection in urine sediment by light microscopyon 08-25-2021 Epithelial cells.squamous LM Ql (Urine sed) 0 SEEN /hpf [facility] Work Phone: [phone] Thin prep Papanicolaou smear with manual screeningon 08-25-2021 Thin prep Papanicolaou smear with manual screening 19 U/L 15-37 [facility] Work Phone: [phone] Thin prep Papanicolaou smear with manual screening 4 5-15 [facility] Work Phone: Urine blood detectionon -0 RBC Ql (U) Negative Negative [facility] Work Phone: RBC Ql (U) 0 SEEN /hpf [facility] Work Phone: Urine clarityon 08-25-2021 Clarity (U) Sl. Cloudy Clear [facility] Work Phone: Urine color determinationon 08-25-2021 Color (U) Yellow Yellow [facility] Work Phone: Urine glucose detectionon Glucose Ql (U) Normal mg/dl Normal [facility] Work Phone: Urine leukocyte esterase det ection by dipstickon 08-25-2021 Leukocyte esterase Test strip Ql (U) Negative Negative [facility] Work Phone: Urine pHon 08-25-2021 pH (U) 7.0 [pH] [facility] Work Phone: Urine sediment bacteria coun t by microscopy (number/high power field)on 08-25-2021 Bacteria LM.HPF (Urine sed) [#/Area] 0 /[HPF] None Seen [facility] Work Phone: Urine specific gravity measu rementon 08-25-2021 Specific gravity (U) [Rel density] 1.010 [facility] Work Phone: Urobilinogen Auto test strip Ql (U)on 08-25-2021 Urobilinogen Ql (U) Normal mg/dl Normal [facility] Work Phone: XR Knee - right 4 Viewson * * *Final Report* * * DATE OF EXAM: Sep 08 2020 2:23PM WOX 5203 - XR KNEE 4V AP/PA BOTH+LAT/BISI RT / PROCEDURE REASON: Acute pain of right knee * * * * Physician Interpretation * * * * Indication: Right knee pain Comparison: None AP, PA, lateral and merchant views of the right knee are obtained. AP, PA and merchant views of the left knee are included. There is normal architecture and mineralization of the bones. There is no acute fracture or dislocation. Joint spaces are maintained. Impression: 1. No acute fracture or dislocation. Binitrotoluene Operator: GILDARDO Transcribe Date/Time: Sep 08 2020 2:24P Dictated by : MARY FINE MD This examination was interpreted and the report reviewed and electronically signed by: MARY FINE MD on Sep 08 2020 2:26PM [facility] DIV[facility] OF RADIOLOGY Provider, [facility] - 09/08/2020 * * *Final Report* * * DATE OF EXAM: Sep 08 2020 2:23PM WOX 5203 - XR KNEE 4V AP/PA BOTH+LAT/BISI RT / PROCEDURE REASON: Acute pain of right knee * * * * Physician Interpretation * * * * Indication: Right knee pain Comparison: None AP, PA, lateral and merchant views of the right knee are obtained. AP, PA and merchant views of the left knee are included. There is normal architecture and mineralization of the bones. There is no acute fracture or dislocation. Joint spaces are maintained. Impression: 1. No acute fracture or dislocation. Binitrotoluene Operator: GILDARDO Transcribe Date/Time: Sep 08 2020 2:24P Dictated by : MARY FINE MD This examination was interpreted and the report reviewed and electronically signed by: MARY FINE MD on Sep 08 2020 2:26PM [facility] Radiology Study observation (narrative) Vicki boston [facility] XR Knee - right 4 ViewsOrder ed By: [facility] Provider on 09-08-2020 [facility] OBSOLETEon 07-22-2020 OBSOLETE Refill (RIKIADFV) YAMIL NG ([id number]) 1985 F Date Time Provider Department 07/22/20 PANDA MARINELLI During your visit today, we recorded the following information about you: Gabby Dougherty Pss 07/22/2020 2:12 PM Signed Physician: Dr Marinelli Call from patient requesting refill. Please E-Scribe Last OV: 01/27/20 with Chiqui Future OV: none scheduled with n/a Pending Prescriptions Disp Refills LEVETIRACETAM 500 MG TABLET 75 tablet 11 Sig: Take 1 tab in AM and 1.5 tabs in PM. NARENDRA: No Pharmacy Name: [facility] Phone #: [phone] Gabby Dougherty Pss -- Marlene Sutherland APRN.CNP 07/22/2020 2:38 PM Signed The following approved medication requests have been transmitted electronically. Signed Prescriptions Disp Refills levETIRAcetam (KEPPRA) 500 mg tablet 75 tablet 5 Sig: Take 1 tab in AM and 1.5 tabs in PM. NARENDRA: No Authorizing Provider: MARLENE GUTIÉRREZ ([facility]) Marlene Sutherland APRN.CNP Allergies As of Date: 07/22/2020 Noted Allergy Reaction BLEACH (SODIUM HYPOCHLORITE) 03/22/2016 2 - Rash LAMICTAL (LAMOTRIGINE) 06/16/2018 2 - Rash PINE TREES (TREES) 03/22/2016 2 - Rash 4 - Hives Date Reviewed: 05/05/2020 Reviewed by: Woodrow ([facility]) [place] - Fully Assessed Reason for Visit: Refill Request [94] Visit Diagnosis:Seizure disorder (HCC) [G40.909] Order(s):levETIRAcetam (KEPPRA) 500 mg tabletTake 1 tab in AM and 1.5 tabs in PM.Disp: 75 tabletRfl: 5 Prescriptions as of 07/22/2020 Sig: LEVETIRACETAM 500 MG TABLET Take 1 tab in AM and 1.5 tabs* FERROUS SULFATE 325 MG (65 MG* Take 1 tablet by mouth twice * Patient not taking: Reported on 05/05/2020 Problem List As Of Date 07/22/2020 Noted Resolved Spotting in first trimester [O26.851] 03/22/2016 11/23/2016 More... History of 3 sections [Z98.891] 03/22/2016 11/23/2016 More... Nausea/vomiting in [O21.9] 03/22/2016 11/23/2016 More... Family history of cleft lip and palate [Z82.79] 03/22/2016 11/23/2016 More... Normal repeat , antepartum [Z34.90] 03/29/2016 11/23/2016 UTI (urinary tract infection) in , ant*04/02/2016 11/23/2016 More... Rubella non-immune status, antepartum [O99.891,*04/17/2016 11/23/2016 Abnormal finding on screening of moth*05/15/2016 11/23/2016 More... 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 Medication side effect [T88.7XXA] 03/12/2018 04/24/2019 Encounter for monitoring anticonvulsant therapy*03/12/2018 Vitamin D deficiency [E55.9] 06/15/2018 URI (obstructive sleep apnea) [G47.33] 08/28/2018 More... Anxiety [F41.9] 08/28/2018 Episode of recurrent major depressive disorder *08/28/2018 Splenomegaly [R16.1] 03/20/2019 Anemia [D64.9] 03/20/2019 More... Ganglion cyst of wrist, right [M67.431] 04/24/2019 Prescriptions ordered this encounter Disp Refills Start End LEVETIRACETAM 500 MG TABLET 75 t* 5 07/22/2020 Sig: Take 1 tab in AM and 1.5 tabs in PM. Medications Discontinued During This Encounter Prescriptions - levETIRAcetam (KEPPRA) 500 mg tablet (Discontinued) Take 1 tab in AM and 1.5 tabs in PM. Encounter Status:Closed by MARLENE SUTHERLAND on 07/22/20 [facility] Alfonso 07-27-2019 CNOV Office Visit (NEEPFV ) YAMIL NG ([id number]) 1985 F Date Time Provider Department 07/27/19 9:30 AM CHERI MORALES (PA)EPFV During your visit today, we recorded the following information about you: Temperature Pulse Respiration Blood pressure 98.8 degrees 67/minute 16/minute 105/59 Weight 64 kg Cheri Morales PA-C 07/28/2019 5:10 PM Signed [facility] Neurological [facility] CLINIC NOTE -FOLLOW UP CHIEF COMPLAINT: Patient presents with: Established Patient HISTORY SINCE LAST VISIT: Yamil Ng is a 33 year old right handed woman here for follow-up on seizure management, she is an established patient of Dr Marinelli and last seen by Sean Eid CNP on 08/27/2018. Plan at [facility] was to continue LEV IR 500/750 mg daily (unable to switch to XR due to insurance), trial Vitamin B6 100 mg daily for mood s/e of Keppra and Zoloft 50 mg daily for depression and anxiety. Today patient report she continued to take LEV IR 500/750 mg daily, she states she is no longer taking Vitamin B6 because it did not help and never started Zoloft. There have been no seizures since [facility], last reported seizure was in November 2017. She had been doing well since [facility] until around one month ago when she started to have episodes of shaking, typically occurring in the AM, can be in upper and lower extremities, though worse in upper extremities (for example has difficulty holding mirror or brush doing her hair). Does endorse accompanying weakness, has dropped objects, denies any falls. Denies any change in awareness. Events can last 1-2 hours, occurring around 2-3 times per week, no identifiable triggering factor. She has not experienced these episodes in the past. She started DEPO shots, just received 2nd shot and first one was around 14 weeks ago, deneis any other changes in medications, denies changes in diet. Since [facility] she saw Sleep Medicine in August 2018, noted low iron could be contributing to RLS symptoms. She reports issues with low iron and B12 in the past, no longer taking any supplementation. No other health changes Feels mood has improved, does not feel she needs Zoloft or other medication for mood at this time. 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 She returns today for a follow up. ? At the last visit, she had concerns of significant side effects of irritability and daytime fatigue with LEV. Plan was to switch LEV IR to XR and vitamin B6. However her insurance denied to pay XR. Patient was switched back to LEV IR and the dose was increased due to subtherapeutic level of 9.6. Vit D was checked and was started on supplement. PSG was ordered to rule out sleep apnea due to daytime fatigue and trouble sleeping at night. PSG showed URI. ? Today she reports no seizures since the last visit. Last seizure was 11/2017. She is tolerating LEV 500/750 okay with side effects of irritability and fatigue. ? She continues to struggle with insomnia. Will be seeing sleep medicine this Saturday. She does not think that vitamin b6 is helpful with her mood. ? C/o anxiety and depression. Would like to try antidepressant. ? Last seizure: 11/2017 Current AEDs: LEV IR 500/750 ? 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 Driving: No ? SEIZURE HISTORY: First seizure event was April 2017. She had seizure out of sleep. She was evaluated in ER at that time. She was recommended testing but did not complete. She was not initiated on medicine at that time and did okay on November of this year when she had a second seizure event at that time out of sleep. She was asleep and recalls no warning or other symptoms. Her accompanies her; first seizure he woke up to her having seizure, generalized shaking. Second seizure was awake; she made a gurgling vocalization and then had a generalized seizure. ? She some times experience ricky vu. Not regularly, no other aura. No history of dialeptic, automotor or other seizure types. noted afterwards confused tired and remained confused for a period of time. She was started on keppra after the second episode and was treated at 500 mg bid. ? No prior history of seizures or child. ? She reported no seizures since being on the medicine. ? Possible lateralizing signs by history: None ? and Early Development: normal ? RISK FACTORS FOR SEIZURES: 1. Head Trauma (No) 2. VP STRATEGY Infections (No) 3. Family History of Seizures (Yes, maternal aunt) 4. Developmental Delay (No) 5. Febrile Seizures (No) 6. VP STRATEGY Tumors (No) 7. VP STRATEGY Vascular Disease (No) 8. Significant Medical History (No) ? CURRENT ANTICONVULSANTS: LEV, LTG 150 BID- rash ? The patient's side effects to the current medications: LEV- decreased appetite, weight loss, irritability. LTG- RASH ? MEDICATIONS: Current Outpatient Medications Medication Sig - L. acidophilus-L. rhamnosus 15 billion cell cap Take 1 capsule by mouth once daily. If taking with an antibiotic, take at least 1-2 hours before or after antibiotic. KEEP REFRIGERATED (Patient not taking: Reported on 05/18/2019 ) - medroxyPROGESTERone (DEPO-PROVERA) 150 mg/mL injection Inject 1 mL intramuscularly every 12 weeks. - levETIRAcetam (KEPPRA) 500 mg tablet Take 1 tab in AM and 1.5 tabs in PM. - ferrous sulfate 325 mg (65 mg iron) tablet Take 1 tablet by mouth twice daily with meals. (Patient not taking: Reported on 07/22/2019 ) Current Facility-Administered Medications Medication Dose Route Frequency - medroxyPROGESTERone 150 mg injection (DEPO-PROVERA) 150 mg INTRAMUSCULAR every 12 weeks PAST MEDICAL HISTORY: PAST MEDICAL HISTORY Diagnosis Date - Anemia - Complication of anesthesia nausea and vomiting - Episode of recurrent major depressive disorder (HCC) 08/28/2018 - Hepatitis in viral diseases classified elsewhere(573.1) when she had mono - PMH - PAST MEDICAL HISTORY OF Right Sciatica - Seizure disorder (HCC) 02/04/2018 PAST SURGICAL HISTORY: PAST SURGICAL HISTORY Procedure Laterality Date - DELIVERY ONLY , low cervical x4 - DELIVERY ONLY 10/14/2016 - LIGATE FALLOPIAN TUBE Bilateral 10/14/2016 FAMILY MEDICAL HISTORY: FAMILY HISTORY Problem Relation Age of Onset - Hypertension Father - Diabetes Father - Hyperlipidemia Father - Breast Cancer Paternal Grandmother - Heart Paternal Grandmother - Stroke Paternal Grandfather - Diabetes Maternal Aunt - other (FIBROMYALGIA) Sister SOCIAL HISTORY: Social History Tobacco Use - Smoking status: Never Smoker - Smokeless tobacco: Never Used Substance Use Topics - Alcohol use: Yes Comment: Rarely - Drug use: No REVIEW OF SYSTEMS: See pertinent positives and negatives in HPI, all other organ systems reported negative. GENERAL EXAMINATION: BP 105/59 Pulse 67 Temp 37.1 ?C (98.8 ?F) Resp 16 Wt 64 kg (141 lb) BMI 24.98 kg/m? General Appearance: This is an average built female, NAD. NEUROLOGICAL EXAMINATION: AANDOx3, able to follow 1 and 2 step commands, fluent speech PERRL, EOMI, no nystagmus CN II-XII intact, no focal deficits Moves all extremities equally, no focal weakness Muscle tone was normal and there was no evidence for pronator drift. There was no evidence for postural or action tremor. There was no dysmetria found on igjagk-ejpr-reiizs testing. The gait examination was normal including tandem gait. RELEVANT LABS AND TEST: MRI Brain (02/18/2018) IMPRESSION: Normal routine MRI brain without and with contrast. Routine EEG ([facility], 02/10/2018) Classification ? Normal (Awake, Sleep, 10-20 Scalp Electrodes, Anterior temporal ? electrodes) Impression ? This EEG is within normal limits. No epileptiform discharges or EEG ? seizures were seen during this recording. Component Levetiracetam Latest Ref Rng AND Units 12.0 - 46.0 ug/mL 02/19/2018 19.7 06/11/2018 9.6 (L) 07/16/2018 21.9 IMPRESSION: The patient's history is suggestive of epilepsy, possibly focal, started in 2016. She remains on LEV IR 500/750 mg daily, no seizures since [facility], last reported seizure in February 2018. Continues to have side effects of fatigue and irritability on medication, never started Zoloft and no longer taking Vitamin B6. Today her concern is new episodes of shaking that started around one month ago, worse in BUE, lasting 1-2 hours occurring 2-3 times per week, has not seen pattern or triggers. Denies any change in awareness. Based on description do not sound like seizure activity, less likely med side effect as she has been on LEV for a extended period of time, possibly due to iron or vitamin b deficiency, low iron thought to be contributing to RLS symptoms per sleep medicine evaluation. ? Epilepsy Classification: focal epilepsy Seizure Classification: Generalized Motor Seizure Etiology: Other unkown Related Condition(s): medication side effect PLAN: Continue LEV IR 500/750 mg BID Advised to monitor shaking symptoms and look for any pattern, triggers, or associated symptoms Will check Keppra level, as well as Iron and Vitamin B12 levels to see if this could be contributing to her symptoms Risks, benefits, side effects, and alternatives to use of Levetiracetam (Keppra) were discussed with the patient. The patient agreed with the plan as outlined above. The patient was scheduled for a return visit in 6 months, or sooner if needed. Cheri Morales PA-C July 27, 2019 Cheri Morales PA-C 07/27/2019 9:42 AM Signed Please continue Keppra 500 mg in AM and 750 mg in PM Please go to lab and get blood work checked, will follow-up results Referring Provider: SEAN EID ([facility]) [[id number]] Allergies As of Date: 07/27/2019 Noted Allergy Reaction BLEACH (SODIUM HYPOCHLORITE) 03/22/2016 2 - Rash LAMICTAL (LAMOTRIGINE) 06/16/2018 2 - Rash PINE TREES (TREES) 03/22/2016 2 - Rash 4 - Hives Date Reviewed: 07/27/2019 Reviewed by: Cheri Morales (Pa) - Fully Assessed Reason for Visit: Established Patient [175] Primary Visit Diagnosis:Seizure disorder (HCC) [G40.909] Other Visit Diagnosis:Encounter for monitoring anticonvulsant therapy [Z51.81, Z79.899] Order(s):levETIRAcetam (KEPPRA) 500 mg tabletTake 1 tab in AM and 1.5 tabs in PM.Disp: 75 tabletRfl: 11 LEVETIRACETAM [SQLEVET] Order #: [id number] FUTURE IRON + TIBC [SQIRON] Order #: [id number] FUTURE FERRITIN BLD [SQFERR] Order #: [id number] FUTURE VITAMIN B12 BLOOD [SQB12] Order #: [id number] FUTURE Prescriptions as of 07/27/2019 Sig: MEDROXYPROGESTERONE 150 MG/ML* Inject 1 mL intramuscularly e* LEVETIRACETAM 500 MG TABLET Take 1 tab in AM and 1.5 tabs* LACTOBACILLUS ACIDOPHILUS AND* Take 1 capsule by mouth once * Patient not taking: Reported on 05/18/2019 FERROUS SULFATE 325 MG (65 MG* Take 1 tablet by mouth twice * Patient not taking: Reported on 07/22/2019 Problem List As Of Date 07/27/2019 Noted Resolved Spotting in first trimester [O26.851] 03/22/2016 11/23/2016 More... History of 3 sections [Z98.891] 03/22/2016 11/23/2016 More... Nausea/vomiting in [O21.9] 03/22/2016 11/23/2016 More... Family history of cleft lip and palate [Z82.79] 03/22/2016 11/23/2016 More... Normal repeat , antepartum [Z34.90] 03/29/2016 11/23/2016 UTI (urinary tract infection) in , ant*04/02/2016 11/23/2016 More... Rubella non-immune status, antepartum [O99.89, *04/17/2016 11/23/2016 Abnormal finding on screening of moth*05/15/2016 11/23/2016 More... 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 Medication side effect [T88.7XXA] 03/12/2018 04/24/2019 Encounter for monitoring anticonvulsant therapy*03/12/2018 Vitamin D deficiency [E55.9] 06/15/2018 URI (obstructive sleep apnea) [G47.33] 08/28/2018 More... Anxiety [F41.9] 08/28/2018 Episode of recurrent major depressive disorder *08/28/2018 Splenomegaly [R16.1] 03/20/2019 Anemia [D64.9] 03/20/2019 More... Ganglion cyst of wrist, right [M67.431] 04/24/2019 Other instructions from your clinician: Please continue Keppra 500 mg in AM and 750 mg in PM Please go to lab and get blood work checked, will follow-up results Prescriptions ordered this encounter Disp Refills Start End LEVETIRACETAM 500 MG TABLET 75 t* 11 07/27/2019 Sig: Take 1 tab in AM and 1.5 tabs in PM. Medications Discontinued During This Encounter levETIRAcetam (KEPPRA) 500 mg tablet 75 t* 5 03/12/2019 07/27/2019 Sig: Take 1 tab in AM and 1.5 tabs in PM. Disc: Reason for discontinue is not on file. Disposition: Return in about 6 months (around 01/25/2020). Follow-up and Disposition History Recorded Encounter Status:Closed by CHERI MORALES PA-C on 07/28/19 [facility] PROGRESSon 07-27-2019 PROGRESS HNO ID: [id number] Author: Cheri Morales (Pa) Service: ? Author Type: Physician Cloth Shader Type: Progress Notes Filed: 07/28/2019 5:10 PM Note Text: [facility] CLINIC NOTE -FOLLOW UP CHIEF COMPLAINT: Patient presents with: Established Patient HISTORY SINCE LAST VISIT: Yamil Ng is a 33 year old right handed woman here for follow-up on seizure management, she is an established patient of Dr Marinelli and last seen by Sean Eid CNP on 08/27/2018. Plan at [facility] was to continue LEV IR 500/750 mg daily (unable to switch to XR due to insurance), trial Vitamin B6 100 mg daily for mood s/e of Keppra and Zoloft 50 mg daily for depression and anxiety. Today patient report she continued to take LEV IR 500/750 mg daily, she states she is no longer taking Vitamin B6 because it did not help and never started Zoloft. There have been no seizures since [facility], last reported seizure was in November 2017. She had been doing well since [facility] until around one month ago when she started to have episodes of shaking, typically occurring in the AM, can be in upper and lower extremities, though worse in upper extremities (for example has difficulty holding mirror or brush doing her hair). Does endorse accompanying weakness, has dropped objects, denies any falls. Denies any change in awareness. Events can last 1-2 hours, occurring around 2-3 times per week, no identifiable triggering factor. She has not experienced these episodes in the past. She started DEPO shots, just received 2nd shot and first one was around 14 weeks ago, deneis any other changes in medications, denies changes in diet. Since [facility] she saw Sleep Medicine in August 2018, noted low iron could be contributing to RLS symptoms. She reports issues with low iron and B12 in the past, no longer taking any supplementation. No other health changes Feels mood has improved, does not feel she needs Zoloft or other medication for mood at this time. 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 She returns today for a follow up. ? At the last visit, she had concerns of significant side effects of irritability and daytime fatigue with LEV. Plan was to switch LEV IR to XR and vitamin B6. However her insurance denied to pay XR. Patient was switched back to LEV IR and the dose was increased due to subtherapeutic level of 9.6. Vit D was checked and was started on supplement. PSG was ordered to rule out sleep apnea due to daytime fatigue and trouble sleeping at night. PSG showed URI. ? Today she reports no seizures since the last visit. Last seizure was 11/2017. She is tolerating LEV 500/750 okay with side effects of irritability and fatigue. ? She continues to struggle with insomnia. Will be seeing sleep medicine this Saturday. She does not think that vitamin b6 is helpful with her mood. ? C/o anxiety and depression. Would like to try antidepressant. ? Last seizure: 11/2017 Current AEDs: LEV IR 500/750 ? 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 Driving: No ? SEIZURE HISTORY: First seizure event was April 2017. She had seizure out of sleep. She was evaluated in ER at that time. She was recommended testing but did not complete. She was not initiated on medicine at that time and did okay on November of this year when she had a second seizure event at that time out of sleep. She was asleep and recalls no warning or other symptoms. Her accompanies her; first seizure he woke up to her having seizure, generalized shaking. Second seizure was awake; she made a gurgling vocalization and then had a generalized seizure. ? She some times experience ricky vu. Not regularly, no other aura. No history of dialeptic, automotor or other seizure types. noted afterwards confused tired and remained confused for a period of time. She was started on keppra after the second episode and was treated at 500 mg bid. ? No prior history of seizures or child. ? She reported no seizures since being on the medicine. ? Possible lateralizing signs by history: None ? and Early Development: normal ? RISK FACTORS FOR SEIZURES: 1. Head Trauma (No) 2. VP STRATEGY Infections (No) 3. Family History of Seizures (Yes, maternal aunt) 4. Developmental Delay (No) 5. Febrile Seizures (No) 6. VP STRATEGY Tumors (No) 7. VP STRATEGY Vascular Disease (No) 8. Significant Medical History (No) ? CURRENT ANTICONVULSANTS: LEV, LTG 150 BID- rash ? The patient's side effects to the current medications: LEV- decreased appetite, weight loss, irritability. LTG- RASH ? MEDICATIONS: Current Outpatient Medications Medication Sig - L. acidophilus-L. rhamnosus 15 billion cell cap Take 1 capsule by mouth once daily. If taking with an antibiotic, take at least 1-2 hours before or after antibiotic. KEEP REFRIGERATED (Patient not taking: Reported on 05/18/2019 ) - medroxyPROGESTERone (DEPO-PROVERA) 150 mg/mL injection Inject 1 mL intramuscularly every 12 weeks. - levETIRAcetam (KEPPRA) 500 mg tablet Take 1 tab in AM and 1.5 tabs in PM. - ferrous sulfate 325 mg (65 mg iron) tablet Take 1 tablet by mouth twice daily with meals. (Patient not taking: Reported on 07/22/2019 ) Current Facility-Administered Medications Medication Dose Route Frequency - medroxyPROGESTERone 150 mg injection (DEPO-PROVERA) 150 mg INTRAMUSCULAR every 12 weeks PAST MEDICAL HISTORY: PAST MEDICAL HISTORY Diagnosis Date - Anemia - Complication of anesthesia nausea and vomiting - Episode of recurrent major depressive disorder (HCC) 08/28/2018 - Hepatitis in viral diseases classified elsewhere(573.1) when she had mono - PMH - PAST MEDICAL HISTORY OF Right Sciatica - Seizure disorder (HCC) 02/04/2018 PAST SURGICAL HISTORY: PAST SURGICAL HISTORY Procedure Laterality Date - DELIVERY ONLY , low cervical x4 - DELIVERY ONLY 10/14/2016 - LIGATE FALLOPIAN TUBE Bilateral 10/14/2016 FAMILY MEDICAL HISTORY: FAMILY HISTORY Problem Relation Age of Onset - Hypertension Father - Diabetes Father - Hyperlipidemia Father - Breast Cancer Paternal Grandmother - Heart Paternal Grandmother - Stroke Paternal Grandfather - Diabetes Maternal Aunt - other (FIBROMYALGIA) Sister SOCIAL HISTORY: Social History Tobacco Use - Smoking status: Never Smoker - Smokeless tobacco: Never Used Substance Use Topics - Alcohol use: Yes Comment: Rarely - Drug use: No REVIEW OF SYSTEMS: See pertinent positives and negatives in HPI, all other organ systems reported negative. GENERAL EXAMINATION: BP 105/59 Pulse 67 Temp 37.1 ?C (98.8 ?F) Resp 16 Wt 64 kg (141 lb) BMI 24.98 kg/m? General Appearance: This is an average built female, NAD. NEUROLOGICAL EXAMINATION: AANDOx3, able to follow 1 and 2 step commands, fluent speech PERRL, EOMI, no nystagmus CN II-XII intact, no focal deficits Moves all extremities equally, no focal weakness Muscle tone was normal and there was no evidence for pronator drift. There was no evidence for postural or action tremor. There was no dysmetria found on yzimfs-tphg-naxwyo testing. The gait examination was normal including tandem gait. RELEVANT LABS AND TEST: MRI Brain (02/18/2018) IMPRESSION: Normal routine MRI brain without and with contrast. Routine EEG ([facility], 02/10/2018) Classification ? Normal (Awake, Sleep, 10-20 Scalp Electrodes, Anterior temporal ? electrodes) Impression ? This EEG is within normal limits. No epileptiform discharges or EEG ? seizures were seen during this recording. Component Levetiracetam Latest Ref Rng AND Units 12.0 - 46.0 ug/mL 02/19/2018 19.7 06/11/2018 9.6 (L) 07/16/2018 21.9 IMPRESSION: The patient's history is suggestive of epilepsy, possibly focal, started in 2016. She remains on LEV IR 500/750 mg daily, no seizures since [facility], last reported seizure in February 2018. Continues to have side effects of fatigue and irritability on medication, never started Zoloft and no longer taking Vitamin B6. Today her concern is new episodes of shaking that started around one month ago, worse in BUE, lasting 1-2 hours occurring 2-3 times per week, has not seen pattern or triggers. Denies any change in awareness. Based on description do not sound like seizure activity, less likely med side effect as she has been on LEV for a extended period of time, possibly due to iron or vitamin b deficiency, low iron thought to be contributing to RLS symptoms per sleep medicine evaluation. ? Epilepsy Classification: focal epilepsy Seizure Classification: Generalized Motor Seizure Etiology: Other unkown Related Condition(s): medication side effect PLAN: Continue LEV IR 500/750 mg BID Advised to monitor shaking symptoms and look for any pattern, triggers, or associated symptoms Will check Keppra level, as well as Iron and Vitamin B12 levels to see if this could be contributing to her symptoms Risks, benefits, side effects, and alternatives to use of Levetiracetam (Keppra) were discussed with the patient. The patient agreed with the plan as outlined above. The patient was scheduled for a return visit in 6 months, or sooner if needed. Cheri Morales PA-C July 27, 2019 [facility] Influenza virus A and B and SARS-CoV-2 (COVID-19) Ag panel - Upper respiratory specim SARS-CoV-2 (COVID-19) RNA VINNIE+probe Ql (Resp) [facility] Work Phone: Vital Signs Date Time Vital Sign Value Performing Clinician Amy shelton 02-24-2025 11:01-0400 Body height 160 cm Leslie Luong APRN.TRACK WATCHMAN Work Phone: [facility] 02-24-2025 11:01-0400 Body mass index (BMI) [Ratio] 25.15 kg/m2 Leslie Luong APRN.TRACK WATCHMAN Work Phone: [facility] 02-24-2025 11:01-0400 Body weight 64.41 kg Leslie Luong APRN.TRACK WATCHMAN Work Phone: [facility] 02-16-2025 08:08-0400 Body height 160 cm Shavon Lacey MD Work Phone: [facility] 02-16-2025 08:08-0400 Body mass index (BMI) [Ratio] 25.4 kg/m2 Shavon Lacey MD Work Phone: [facility] 02-16-2025 08:08-0400 Body weight 65.05 kg Shavon Lacey MD Work Phone: [facility] 02-16-2025 08:08-0400 Diastolic blood pressure 68 mm[Hg] Shavon Lacey MD Work Phone: [facility] 02-16-2025 08:08-0400 Heart rate 66 /min Shavon Lacey MD Work Phone: [facility] 02-16-2025 08:08-0400 Systolic blood pressure 98 mm[Hg] Shavon Lacey MD Work Phone: [facility] 02-10-2025 07:54-0400 Body height 160 cm Williams Barton MD Work Phone: [facility] 02-10-2025 07:54-0400 Body mass index (BMI) [Ratio] 26.17 kg/m2 Williams Barton MD Work Phone: [facility] 02-10-2025 07:54-0400 Body temperature 98.01 [degF] Williams Barton MD Work Phone: [facility] 02-10-2025 07:54-0400 Body weight 67 kg Williams Barton MD Work Phone: [facility] 02-10-2025 07:54-0400 Diastolic blood pressure 65 mm[Hg] Williams Barton MD Work Phone: [facility] 02-10-2025 07:54-0400 Heart rate 68 /min Williams Barton MD Work Phone: [facility] 02-10-2025 07:54-0400 Systolic blood pressure 100 mm[Hg] Williams Barton MD Work Phone: [facility] 01-13-2025 09:50-0400 Diastolic blood pressure 75 mm[Hg] Coleen Maria MD Work Phone: [facility] 01-13-2025 09:50-0400 Heart rate 63 /min Coleen Maria MD Work Phone: [facility] 01-13-2025 09:50-0400 Respiratory rate 18 /min Coleen Maria MD Work Phone: [facility] 01-13-2025 09:50-0400 SaO2% (BldA) [Mass fraction] 99 % Coleen Maria MD Work Phone: [facility] 01-13-2025 09:50-0400 Systolic blood pressure 112 mm[Hg] Coleen Maria MD Work Phone: [facility] 01-13-2025 09:36-0400 Body temperature 97.5 [degF] Coleen Maria MD Work Phone: [facility] 01-13-2025 08:05-0400 Body height 160 cm Coleen Maria MD Work Phone: [facility] 01-13-2025 08:05-0400 Body mass index (BMI) [Ratio] 26.57 kg/m2 Coleen Maria MD Work Phone: [facility] 01-13-2025 08:05-0400 Body weight 68.04 kg Coleen Maria MD Work Phone: [facility] 01-08-2025 15:19-0400 Body height 161.3 cm Preet Valente APRN.TRACK WATCHMAN Work Phone: [facility] 01-08-2025 15:19-0400 Body mass index (BMI) [Ratio] 26.67 kg/m2 Preet Valente APRN.TRACK WATCHMAN Work Phone: [facility] 01-08-2025 15:19-0400 Body weight 69.4 kg Preet Valente APRN.TRACK WATCHMAN Work Phone: [facility] 01-08-2025 15:19-0400 Diastolic blood pressure 60 mm[Hg] Preet Valente APRN.TRACK WATCHMAN Work Phone: [facility] 01-08-2025 15:19-0400 Systolic blood pressure 104 mm[Hg] Preet Valente APRN.TRACK WATCHMAN Work Phone: [facility] 12-17-2024 09:18-0400 Body mass index (BMI) [Ratio] 26.56 kg/m2 Kristen Abreu BLOCKLAYER.TRACK WATCHMAN Work Phone: [facility] 12-17-2024 09:18-0400 Body temperature 99.1 [degF] Kristen Abreu BLOCKLAYER.TRACK WATCHMAN Work Phone: [facility] 12-17-2024 09:18-0400 Body weight 68 kg Kristen Abreu BLOCKLAYER.TRACK WATCHMAN Work Phone: [facility] 12-17-2024 09:18-0400 Diastolic blood pressure 82 mm[Hg] Kristen Abreu BLOCKLAYER.TRACK WATCHMAN Work Phone: [facility] 12-17-2024 09:18-0400 Heart rate 97 /min Kristen Abreu BLOCKLAYER.TRACK WATCHMAN Work Phone: [facility] 12-17-2024 09:18-0400 Respiratory rate 20 /min Kristen Abreu BLOCKLAYER.TRACK WATCHMAN Work Phone: [facility] 12-17-2024 09:18-0400 SaO2% (BldA) [Mass fraction] 99 % Kristen Abreu BLOCKLAYER.TRACK WATCHMAN Work Phone: [facility] 12-17-2024 09:18-0400 Systolic blood pressure 117 mm[Hg] Kristen Abreu BLOCKLAYER.TRACK WATCHMAN Work Phone: [facility] 11-06-2024 13:53-0400 Body height 160 cm Domitila Leanderessa BLOCKLAYER.TRACK WATCHMAN Work Phone: [facility] 11-06-2024 13:53-0400 Body mass index (BMI) [Ratio] 26.75 kg/m2 Domitila Kalessa BLOCKLAYER.TRACK WATCHMAN Work Phone: [facility] 11-06-2024 13:53-0400 Body weight 68.49 kg Domitila Leanderessa BLOCKLAYER.TRACK WATCHMAN Work Phone: [facility] 11-06-2024 13:53-0400 Diastolic blood pressure 68 mm[Hg] Domitila Leanderessa BLOCKLAYER.TRACK WATCHMAN Work Phone: [facility] 11-06-2024 13:53-0400 Heart rate 63 /min Domitila Leanderessa BLOCKLAYER.TRACK WATCHMAN Work Phone: [facility] 11-06-2024 13:53-0400 SaO2% (BldA) [Mass fraction] 100 % Domitila Leanderessa BLOCKLAYER.TRACK WATCHMAN Work Phone: [facility] 11-06-2024 13:53-0400 Systolic blood pressure 110 mm[Hg] Domitila Leanderessa BLOCKLAYER.TRACK WATCHMAN Work Phone: [facility] 10-26-2024 14:30-0400 Body mass index (BMI) [Ratio] 26.54 kg/m2 Cristy Podlogar BLOCKLAYER.TRACK WATCHMAN Work Phone: [facility] 10-26-2024 14:30-0400 Body weight 67.95 kg Cristy Podlogar BLOCKLAYER.TRACK WATCHMAN Work Phone: [facility] 10-26-2024 14:30-0400 Diastolic blood pressure 66 mm[Hg] Cristy Podlogar BLOCKLAYER.TRACK WATCHMAN Work Phone: [facility] 10-26-2024 14:30-0400 Heart rate 60 /min Cristy Podlogar BLOCKLAYER.TRACK WATCHMAN Work Phone: [facility] 10-26-2024 14:30-0400 Respiratory rate 16 /min Cristy Podlogar BLOCKLAYER.TRACK WATCHMAN Work Phone: [facility] 10-26-2024 14:30-0400 SaO2% (BldA) [Mass fraction] 98 % Cristy Podlogar BLOCKLAYER.TRACK WATCHMAN Work Phone: [facility] 10-26-2024 14:30-0400 Systolic blood pressure 94 mm[Hg] Cristy Podlogar BLOCKLAYER.TRACK WATCHMAN Work Phone: [facility] 08-26-2024 14:12-0500 Body mass index (BMI) [Ratio] 26.68 kg/m2 Cristy Podlogar BLOCKLAYER.TRACK WATCHMAN Work Phone: [facility] 08-26-2024 14:12-0500 Body weight 68.31 kg Cristy Podlogar BLOCKLAYER.TRACK WATCHMAN Work Phone: [facility] 08-26-2024 14:12-0500 Diastolic blood pressure 62 mm[Hg] Cristy Podlogar BLOCKLAYER.TRACK WATCHMAN Work Phone: [facility] 08-26-2024 14:12-0500 Heart rate 65 /min Cristy Podlogar BLOCKLAYER.TRACK WATCHMAN Work Phone: [facility] 08-26-2024 14:12-0500 Respiratory rate 18 /min Cristy Podlogar BLOCKLAYER.TRACK WATCHMAN Work Phone: [facility] 08-26-2024 14:12-0500 SaO2% (BldA) [Mass fraction] 98 % Cristy Podlogar BLOCKLAYER.TRACK WATCHMAN Work Phone: [facility] 08-26-2024 14:12-0500 Systolic blood pressure 108 mm[Hg] Cristy Podlogar BLOCKLAYER.TRACK WATCHMAN Work Phone: [facility] 08-26-2024 11:02-0500 Body height 160 cm Martine Chuck BLOCKLAYER.TRACK WATCHMAN Work Phone: [facility] 08-26-2024 11:02-0500 Body mass index (BMI) [Ratio] 25.38 kg/m2 Martine Chuck BLOCKLAYER.TRACK WATCHMAN Work Phone: [facility] 08-26-2024 11:02-0500 Body weight 65 kg Martine Chuck BLOCKLAYER.TRACK WATCHMAN Work Phone: [facility] 08-26-2024 11:02-0500 Diastolic blood pressure 68 mm[Hg] Martine Chuck BLOCKLAYER.TRACK WATCHMAN Work Phone: [facility] 08-26-2024 11:02-0500 Heart rate 64 /min Martine Chuck BLOCKLAYER.TRACK WATCHMAN Work Phone: [facility] 08-26-2024 11:02-0500 Systolic blood pressure 104 mm[Hg] Martine Chuck BLOCKLAYER.TRACK WATCHMAN Work Phone: [facility] 08-22-2024 14:51-0500 Body mass index (BMI) [Ratio] 26.1 kg/m2 [facility] BLOCK[facility].TRACK WATCHMAN Work Phone: [facility] 08-22-2024 14:51-0500 Body temperature 98.6 [degF] [facility]ATCHMAN Work Phone: [facility] 08-22-2024 14:51-0500 Body weight 68.4 kg [facility] WATCHMAN Work Phone: [facility] 08-22-2024 14:51-0500 Diastolic blood pressure 80 mm[Hg] [facility] BLOCK[facility]ER.TRACK WATCHMAN Work Phone: [facility] 08-22-2024 14:51-0500 Heart rate 98 /min [facility] BLOCKLAYER.TRACK WATCHMAN Work Phone: [facility] 08-22-2024 14:51-0500 Systolic blood pressure 124 mm[Hg] [facility] BLOCKLAYER.TRACK WATCHMAN Work Phone: [facility] 08-05-2024 10:10-0500 Body mass index (BMI) [Ratio] 26.13 kg/m2 Krislyn Aberegg PA Work Phone: [facility] 08-05-2024 10:10-0500 Body temperature 100.8 [degF] Krislyn Aberegg PA Work Phone: [facility] 08-05-2024 10:10-0500 Body weight 68.5 kg Krislyn Aberegg PA Work Phone: [facility] 08-05-2024 10:10-0500 Diastolic blood pressure 71 mm[Hg] Krislyn Aberegg PA Work Phone: [facility] 08-05-2024 10:10-0500 Heart rate 104 /min Krislyn Aberegg PA Work Phone: [facility] 08-05-2024 10:10-0500 Respiratory rate 18 /min Krislyn Aberegg PA Work Phone: [facility] 08-05-2024 10:10-0500 SaO2% (BldA) [Mass fraction] 100 % Krislyn Aberegg PA Work Phone: [facility] 08-05-2024 10:10-0500 Systolic blood pressure 96 mm[Hg] Krislyn Aberegg PA Work Phone: [facility] 07-16-2024 14:51-0500 Body mass index (BMI) [Ratio] 27 kg/m2 Jeffy Plotts BLOCKLAYER.CNM Work Phone: [facility] 07-16-2024 14:51-0500 Body weight 70.76 kg Jeffy Plotts BLOCKLAYER.CNM Work Phone: [facility] 07-16-2024 14:51-0500 Diastolic blood pressure 60 mm[Hg] Jeffy Plotts BLOCKLAYER.CNM Work Phone: [facility] 07-16-2024 14:51-0500 Systolic blood pressure 110 mm[Hg] Jeffy Plotts BLOCKLAYER.CNM Work Phone: [facility] 07-01-2024 14:01-0500 Body height 161.9 cm Cristy Podlogar BLOCKLAYER.TRACK WATCHMAN Work Phone: [facility] 07-01-2024 14:01-0500 Body mass index (BMI) [Ratio] 26.63 kg/m2 Cristy Podlogar BLOCKLAYER.TRACK WATCHMAN Work Phone: [facility] 07-01-2024 14:01-0500 Body weight 69.8 kg Cristy Podlogar BLOCKLAYER.TRACK WATCHMAN Work Phone: [facility] 07-01-2024 14:01-0500 Diastolic blood pressure 64 mm[Hg] Cristy Podlogar BLOCKLAYER.TRACK WATCHMAN Work Phone: [facility] 07-01-2024 14:01-0500 Heart rate 80 /min Cristy Podlogar BLOCKLAYER.TRACK WATCHMAN Work Phone: [facility] 07-01-2024 14:01-0500 Respiratory rate 16 /min Cristy Podlogar BLOCKLAYER.TRACK WATCHMAN Work Phone: [facility] 07-01-2024 14:01-0500 SaO2% (BldA) [Mass fraction] 96 % Cristy Podlogar BLOCKLAYER.TRACK WATCHMAN Work Phone: [facility] 07-01-2024 14:01-0500 Systolic blood pressure 96 mm[Hg] Cristy Podlogar BLOCKLAYER.TRACK WATCHMAN Work Phone: [facility] 06-29-2024 15:17-0500 Body mass index (BMI) [Ratio] 27.46 kg/m2 Henrique Cuevas MD Work Phone: [facility] 06-29-2024 15:17-0500 Body weight 70.31 kg Henrique Cuevas MD Work Phone: [facility] 06-29-2024 15:17-0500 Diastolic blood pressure 60 mm[Hg] Henrique Cuevas MD Work Phone: [facility] 06-29-2024 15:17-0500 Systolic blood pressure 100 mm[Hg] Henrique Cuevas MD Work Phone: [facility] 06-01-2024 13:55-0500 Body mass index (BMI) [Ratio] 27.46 kg/m2 Iveth Uriarte BLOCKLAYER.TRACK WATCHMAN Work Phone: [facility] 06-01-2024 13:55-0500 Body weight 70.31 kg Iveth Uriarte BLOCKLAYER.TRACK WATCHMAN Work Phone: [facility] 06-01-2024 13:55-0500 Diastolic blood pressure 69 mm[Hg] Iveth Uriarte BLOCKLAYER.TRACK WATCHMAN Work Phone: [facility] 06-01-2024 13:55-0500 Heart rate 70 /min Iveth Uriarte BLOCKLAYER.TRACK WATCHMAN Work Phone: [facility] 06-01-2024 13:55-0500 Respiratory rate 14 /min Iveth Uriarte BLOCKLAYER.TRACK WATCHMAN Work Phone: [facility] 06-01-2024 13:55-0500 Systolic blood pressure 103 mm[Hg] Iveth Uriarte BLOCKLAYER.TRACK WATCHMAN Work Phone: [facility] 05-22-2024 14:59-0500 Body height 160 cm Martine Chuck BLOCKLAYER.TRACK WATCHMAN Work Phone: [facility] 05-22-2024 14:59-0500 Body mass index (BMI) [Ratio] 27.57 kg/m2 Martine Chuck BLOCKLAYER.TRACK WATCHMAN Work Phone: [facility] 05-22-2024 14:59-0500 Body weight 70.6 kg Martine Chuck BLOCKLAYER.TRACK WATCHMAN Work Phone: [facility] 05-22-2024 14:59-0500 Diastolic blood pressure 70 mm[Hg] Martine Chuck BLOCKLAYER.TRACK WATCHMAN Work Phone: [facility] 05-22-2024 14:59-0500 Heart rate 75 /min Martine Chuck BLOCKLAYER.TRACK WATCHMAN Work Phone: [facility] 05-22-2024 14:59-0500 Systolic blood pressure 104 mm[Hg] Martine Chuck BLOCKLAYER.TRACK WATCHMAN Work Phone: [facility] 04-29-2024 12:09-0500 Body mass index (BMI) [Ratio] 27.1 kg/m2 Cristy Mederoslogar BLOCKLAYER.TRACK WATCHMAN Work Phone: [facility] 04-29-2024 12:09-0500 Body temperature 98.2 [degF] Cristy Podlogar BLOCKLAYER.TRACK WATCHMAN Work Phone: [facility] 04-29-2024 12:09-0500 Body weight 69.4 kg Cristy Podlogar BLOCKLAYER.TRACK WATCHMAN Work Phone: [facility] 04-29-2024 12:09-0500 Diastolic blood pressure 72 mm[Hg] Cristy Podlogar BLOCKLAYER.TRACK WATCHMAN Work Phone: [facility] 04-29-2024 12:09-0500 Heart rate 64 /min Cristy Podlogar BLOCKLAYER.TRACK WATCHMAN Work Phone: [facility] 04-29-2024 12:09-0500 Respiratory rate 16 /min Cristy Podlogar BLOCKLAYER.TRACK WATCHMAN Work Phone: [facility] 04-29-2024 12:09-0500 SaO2% (BldA) [Mass fraction] 99 % Cristy Podlogar BLOCKLAYER.TRACK WATCHMAN Work Phone: [facility] 04-29-2024 12:09-0500 Systolic blood pressure 110 mm[Hg] Cristy Podlogar BLOCKLAYER.TRACK WATCHMAN Work Phone: [facility] 04-13-2024 13:55-0400 Body mass index (BMI) [Ratio] 27.14 kg/m2 Dhiraj Whitt MD Work Phone: [facility] 04-13-2024 13:55-0400 Body temperature 97.2 [degF] Dhiraj Whitt MD Work Phone: [facility] 04-13-2024 13:55-0400 Body weight 69.5 kg Dhiraj Whitt MD Work Phone: [facility] 04-13-2024 13:55-0400 Diastolic blood pressure 64 mm[Hg] Dhiraj Whitt MD Work Phone: [facility] 04-13-2024 13:55-0400 Heart rate 76 /min Dhiraj Whitt MD Work Phone: [facility] 04-13-2024 13:55-0400 Respiratory rate 16 /min Dhiraj Whitt MD Work Phone: [facility] 04-13-2024 13:55-0400 SaO2% (BldA) [Mass fraction] 98 % Dhiraj Whitt MD Work Phone: [facility] 04-13-2024 13:55-0400 Systolic blood pressure 100 mm[Hg] Dhiraj Whitt MD Work Phone: [facility] 03-04-2024 14:16-0400 Body mass index (BMI) [Ratio] 27.14 kg/m2 Cristy Podlogar BLOCKLAYER.TRACK WATCHMAN Work Phone: [facility] 03-04-2024 14:16-0400 Body weight 69.5 kg Cristy Podlogar BLOCKLAYER.TRACK WATCHMAN Work Phone: [facility] 03-04-2024 14:16-0400 Diastolic blood pressure 64 mm[Hg] Cristy Podlogar BLOCKLAYER.TRACK WATCHMAN Work Phone: [facility] 03-04-2024 14:16-0400 Heart rate 70 /min Cristy Podlogar BLOCKLAYER.TRACK WATCHMAN Work Phone: [facility] 03-04-2024 14:16-0400 Respiratory rate 18 /min Cristy Podlogar BLOCKLAYER.TRACK WATCHMAN Work Phone: [facility] 03-04-2024 14:16-0400 SaO2% (BldA) [Mass fraction] 96 % Cristy Podlogar BLOCKLAYER.TRACK WATCHMAN Work Phone: [facility] 03-04-2024 14:16-0400 Systolic blood pressure 102 mm[Hg] Cristy Podlogar BLOCKLAYER.TRACK WATCHMAN Work Phone: [facility] 01-08-2024 10:50-0400 Diastolic blood pressure 60 mm[Hg] Adrianne Ignacio MD Work Phone: [facility] 01-08-2024 10:50-0400 Systolic blood pressure 100 mm[Hg] Adrianne Ignacio MD Work Phone: [facility] 01-08-2024 10:12-0400 Body height 162.6 cm Adrianne Ignacio MD Work Phone: [facility] 01-08-2024 10:12-0400 Body mass index (BMI) [Ratio] 26.61 kg/m2 Adrianne Ignacio MD Work Phone: [facility] 01-08-2024 10:12-0400 Body weight 70.31 kg Adrianne Ignacio MD Work Phone: [facility] 01-08-2024 10:12-0400 Heart rate 79 /min Adrianne Ignacio MD Work Phone: [facility] 01-08-2024 10:12-0400 Respiratory rate 12 /min Adrianne Ignacio MD Work Phone: [facility] 01-08-2024 10:12-0400 SaO2% (BldA) [Mass fraction] 96 % Adrianne Igncaio MD Work Phone: [facility] 12-25-2023 10:26-0400 Body mass index (BMI) [Ratio] 26.85 kg/m2 Adrianen Ignacio MD Work Phone: [facility] 12-25-2023 10:26-0400 Body weight 70.94 kg Adrianne Ignacio MD Work Phone: [facility] 12-25-2023 10:26-0400 Diastolic blood pressure 70 mm[Hg] Adrianne Ignacio MD Work Phone: [facility] 12-25-2023 10:26-0400 Heart rate 68 /min Adrianne Ignacio MD Work Phone: [facility] 12-25-2023 10:26-0400 Respiratory rate 16 /min Adrianne Ignacio MD Work Phone: [facility] 12-25-2023 10:26-0400 SaO2% (BldA) [Mass fraction] 97 % Adrianne Ignacio MD Work Phone: [facility] 12-25-2023 10:26-0400 Systolic blood pressure 104 mm[Hg] Adrianne Ignacio MD Work Phone: [facility] 11-06-2023 10:39-0400 Body mass index (BMI) [Ratio] 26.43 kg/m2 Temitope Acuna MD Work Phone: [facility] 11-06-2023 10:39-0400 Body weight 69.85 kg Temitope Acuna MD Work Phone: [facility] 11-06-2023 10:39-0400 Diastolic blood pressure 64 mm[Hg] Temitope Acuna MD Work Phone: [facility] 11-06-2023 10:39-0400 Systolic blood pressure 98 mm[Hg] Temitope Acuna MD Work Phone: [facility] 10-24-2023 11:18-0400 Body mass index (BMI) [Ratio] 26.11 kg/m2 Ismael Alonzo BLOCKLAYER.TRACK WATCHMAN Work Phone: [facility] 10-24-2023 11:18-0400 Body temperature 97.7 [degF] Ismael Alonzo BLOCKLAYER.TRACK WATCHMAN Work Phone: [facility] 10-24-2023 11:18-0400 Body weight 69 kg Ismael Alonzo APRN.TRACK WATCHMAN Work Phone: [facility] 10-24-2023 11:18-0400 Diastolic blood pressure 71 mm[Hg] Ismael Alonzo BLOCKLAYER.TRACK WATCHMAN Work Phone: [facility] 10-24-2023 11:18-0400 Heart rate 81 /min Ismael Alonzo APRN.TRACK WATCHMAN Work Phone: [facility] 10-24-2023 11:18-0400 Respiratory rate 20 /min Ismael Alonzo APRN.TRACK WATCHMAN Work Phone: [facility] 10-24-2023 11:18-0400 SaO2% (BldA) [Mass fraction] 99 % Ismael Alonzo APRN.TRACK WATCHMAN Work Phone: [facility] 10-24-2023 11:18-0400 Systolic blood pressure 106 mm[Hg] Ismael Alonzo BLOCKLAYER.TRACK WATCHMAN Work Phone: [facility] 10-16-2023 10:35-0400 Body mass index (BMI) [Ratio] 26.61 kg/m2 Temitope Acuna MD Work Phone: [facility] 10-16-2023 10:35-0400 Body weight 70.31 kg Temitope Acuna MD Work Phone: [facility] 10-16-2023 10:35-0400 Diastolic blood pressure 62 mm[Hg] Temitope Acuna MD Work Phone: [facility] 10-16-2023 10:35-0400 Systolic blood pressure 98 mm[Hg] Temitope Acuna MD Work Phone: [facility] 09-30-2023 10:46-0400 Body weight 67.13 kg Temitope Acuna MD Work Phone: [facility] 09-30-2023 10:46-0400 Diastolic blood pressure 62 mm[Hg] Temitope Acuna MD Work Phone: [facility] 09-30-2023 10:46-0400 Systolic blood pressure 98 mm[Hg] Temitope Acuna MD Work Phone: [facility] 09-24-2023 12:22-0400 Body temperature 98.1 [degF] [facility] 09-24-2023 12:22-0400 Diastolic blood pressure 64 mm[Hg] [facility] 09-24-2023 12:22-0400 Heart rate 68 /min [facility] 09-24-2023 12:22-0400 Respiratory rate 18 /min [facility] 09-24-2023 12:22-0400 SaO2% (BldA) [Mass fraction] 100 % [facility] 09-24-2023 12:22-0400 Systolic blood pressure 114 mm[Hg] [facility] 09-23-2023 16:07-0400 Body height 160.02 cm [facility] 09-23-2023 16:07-0400 Body weight 76.3 kg [facility] 09-23-2023 04:29-0400 Inhaled oxygen flow rate 1 L/min [facility] 09-23-2023 02:34-0400 Body mass index (BMI) [Ratio] 29.7 kg/m2 [facility] 09-22-2023 21:26-0400 Body height 160.02 cm [facility] 09-22-2023 21:26-0400 Body mass index (BMI) [Ratio] 26.7 kg/m2 [facility] 09-22-2023 21:26-0400 Body temperature 98.1 [degF] [facility] 09-22-2023 21:26-0400 Body weight 68.49 kg [facility] 09-22-2023 21:26-0400 Diastolic blood pressure 73 mm[Hg] [facility] 09-22-2023 21:26-0400 Heart rate 69 /min [facility] 09-22-2023 21:26-0400 Respiratory rate 16 /min [facility] 09-22-2023 21:26-0400 SaO2% (BldA) [Mass fraction] 96 % [facility] 09-22-2023 21:26-0400 Systolic blood pressure 109 mm[Hg] [facility] 09-17-2023 14:18-0400 Body weight 69.4 kg Temitope Acuna MD Work Phone: [facility] 09-17-2023 14:18-0400 Diastolic blood pressure 58 mm[Hg] Temitope Acuna MD Work Phone: [facility] 09-17-2023 14:18-0400 Systolic blood pressure 104 mm[Hg] Temitope Acuna MD Work Phone: [facility] 09-11-2023 09:51-0400 Body weight 68.49 kg Temitope Acuna MD Work Phone: [facility] 09-11-2023 09:51-0400 Diastolic blood pressure 68 mm[Hg] Temitope Acuna MD Work Phone: [facility] 09-11-2023 09:51-0400 Systolic blood pressure 100 mm[Hg] Temitope Acuna MD Work Phone: [facility] 09-02-2023 13:40-0400 Body height 162.6 cm Pacc 1 Work Phone: [facility] 09-02-2023 13:40-0400 Body temperature 97.39 [degF] Pacc 1 Work Phone: [facility] 09-02-2023 13:40-0400 Body weight 69.85 kg Pacc 1 Work Phone: [facility] 09-02-2023 13:40-0400 Diastolic blood pressure 62 mm[Hg] Pacc 1 Work Phone: [facility] 09-02-2023 13:40-0400 Heart rate 68 /min Pacc 1 Work Phone: [facility] 09-02-2023 13:40-0400 Respiratory rate 14 /min Pacc 1 Work Phone: [facility] 09-02-2023 13:40-0400 SaO2% (BldA) [Mass fraction] 99 % Pacc 1 Work Phone: [facility] 09-02-2023 13:40-0400 Systolic blood pressure 100 mm[Hg] Pacc 1 Work Phone: [facility] 08-26-2023 13:37-0500 Body temperature 97.5 [degF] Flaca Athy PA-C Work Phone: [facility] 08-26-2023 13:37-0500 Body weight 69.85 kg Flaca Athy PA-C Work Phone: [facility] 08-26-2023 13:37-0500 Diastolic blood pressure 64 mm[Hg] Flaca Athy PA-C Work Phone: [facility] 08-26-2023 13:37-0500 Heart rate 66 /min Flaca Athy PA-C Work Phone: [facility] 08-26-2023 13:37-0500 Respiratory rate 16 /min Flaca Athy PA-C Work Phone: [facility] 08-26-2023 13:37-0500 SaO2% (BldA) [Mass fraction] 99 % Flaca Athy PA-C Work Phone: [facility] 08-26-2023 13:37-0500 Systolic blood pressure 106 mm[Hg] Flaca Athy PA-C Work Phone: [facility] 08-08-2023 15:33-0500 Body weight 70.31 kg Temitope Acuna MD Work Phone: [facility] 08-08-2023 15:33-0500 Diastolic blood pressure 64 mm[Hg] Temitope Acuna MD Work Phone: [facility] 08-08-2023 15:33-0500 Systolic blood pressure 108 mm[Hg] Temitope Acuna MD Work Phone: [facility] 06-03-2023 14:57-0500 Body height 160 cm Nils Reddy MD Work Phone: [facility] 06-03-2023 14:57-0500 Body weight 65.77 kg Nils Reddy MD Work Phone: [facility] 06-03-2023 14:57-0500 Diastolic blood pressure 69 mm[Hg] Nils Reddy MD Work Phone: [facility] 06-03-2023 14:57-0500 Heart rate 57 /min Nils Reddy MD Work Phone: [facility] 06-03-2023 14:57-0500 Systolic blood pressure 108 mm[Hg] Nils Reddy MD Work Phone: [facility] 03-13-2023 15:17-0400 Body weight 66.68 kg Temitope Acuna MD Work Phone: [facility] 02-24-2023 20:11-0400 Body mass index (BMI) [Ratio] 27.3 kg/m2 [facility] 02-24-2023 20:11-0400 Body weight 70 kg [facility] 02-24-2023 17:40-0400 Body height 160.02 cm [facility] 02-24-2023 17:40-0400 Body temperature 97.1 [degF] [facility] 02-24-2023 17:40-0400 Diastolic blood pressure 105 mm[Hg] [facility] 02-24-2023 17:40-0400 Heart rate 86 /min [facility] 02-24-2023 17:40-0400 Respiratory rate 18 /min [facility] 02-24-2023 17:40-0400 SaO2% (BldA) [Mass fraction] 100 % [facility] 02-24-2023 17:40-0400 Systolic blood pressure 128 mm[Hg] [facility] 02-20-2023 15:51-0400 Body height 160 cm Temitope Acuna MD Work Phone: [facility] 02-20-2023 15:51-0400 Body weight 66.68 kg Temitope Acuna MD Work Phone: [facility] 02-20-2023 15:51-0400 Diastolic blood pressure 60 mm[Hg] Temitope Acuna MD Work Phone: [facility] 02-20-2023 15:51-0400 Heart rate 74 /min Temitoep Acuna MD Work Phone: [facility] 02-20-2023 15:51-0400 Respiratory rate 16 /min Temitope Acuna MD Work Phone: [facility] 02-20-2023 15:51-0400 SaO2% (BldA) [Mass fraction] 96 % Temitope Acuna MD Work Phone: [facility] 02-20-2023 15:51-0400 Systolic blood pressure 104 mm[Hg] Temitope Acuna MD Work Phone: [facility] 02-13-2023 09:42-0400 Body height 160 cm [employer] Work Phone: [facility] 02-13-2023 09:42-0400 Body weight 65.77 kg [employer] Work Phone: [facility] 02-12-2023 11:14-0400 Body temperature 98.01 [degF] Lyric Nova BLOCKLAYER.TRACK WATCHMAN Work Phone: [facility] 02-12-2023 11:14-0400 Body weight 66.41 kg Lyric Nova BLOCKLAYER.TRACK WATCHMAN Work Phone: [facility] 02-12-2023 11:14-0400 Diastolic blood pressure 68 mm[Hg] Lyric Nova BLOCKLAYER.TRACK WATCHMAN Work Phone: [facility] 02-12-2023 11:14-0400 Heart rate 68 /min Lyric Avtar BLOCKLAYER.TRACK WATCHMAN Work Phone: [facility] 02-12-2023 11:14-0400 Respiratory rate 16 /min Lyric Avtar BLOCKLAYER.TRACK WATCHMAN Work Phone: [facility] 02-12-2023 11:14-0400 SaO2% (BldA) [Mass fraction] 98 % Lyric Avtar BLOCKLAYER.TRACK WATCHMAN Work Phone: [facility] 02-12-2023 11:14-0400 Systolic blood pressure 102 mm[Hg] Lyric Avtar BLOCKLAYER.TRACK WATCHMAN Work Phone: [facility] 01-30-2023 09:43-0400 Body weight 66.68 kg Temitope Acuna MD Work Phone: [facility] 01-30-2023 09:43-0400 Diastolic blood pressure 58 mm[Hg] Temitope Acuna MD Work Phone: [facility] 01-30-2023 09:43-0400 Systolic blood pressure 96 mm[Hg] Temitope Acuna MD Work Phone: [facility] 01-28-2023 14:17-0400 Body weight 66.95 kg Cristy Mederoslogar BLOCKLAYER.TRACK WATCHMAN Work Phone: [facility] 01-28-2023 14:17-0400 Diastolic blood pressure 62 mm[Hg] Cristy Podlogar BLOCKLAYER.TRACK WATCHMAN Work Phone: [facility] 01-28-2023 14:17-0400 Heart rate 60 /min Cristy Podlogar BLOCKLAYER.TRACK WATCHMAN Work Phone: [facility] 01-28-2023 14:17-0400 Respiratory rate 16 /min Cristy Podlogar BLOCKLAYER.TRACK WATCHMAN Work Phone: [facility] 01-28-2023 14:17-0400 SaO2% (BldA) [Mass fraction] 98 % Cristy Podlogar BLOCKLAYER.TRACK WATCHMAN Work Phone: [facility] 01-28-2023 14:17-0400 Systolic blood pressure 98 mm[Hg] Cristy Dunbar APRN.TRACK WATCHMAN Work Phone: [facility] 01-08-2023 15:19-0400 Body temperature 98.29 [degF] Treatment Wstr Work Phone: [facility] 01-08-2023 15:19-0400 Diastolic blood pressure 63 mm[Hg] Treatment Wstr Work Phone: [facility] 01-08-2023 15:19-0400 Heart rate 76 /min Treatment Wstr Work Phone: [facility] 01-08-2023 15:19-0400 Respiratory rate 16 /min Treatment Wstr Work Phone: [facility] 01-08-2023 15:19-0400 SaO2% (BldA) [Mass fraction] 97 % Treatment Wstr Work Phone: [facility] 01-08-2023 15:19-0400 Systolic blood pressure 97 mm[Hg] Treatment Wstr Work Phone: [facility] 01-02-2023 14:59-0400 Body temperature 97.7 [degF] Treatment Wstr Work Phone: [facility] 01-02-2023 14:59-0400 Diastolic blood pressure 67 mm[Hg] Treatment Wstr Work Phone: [facility] 01-02-2023 14:59-0400 Heart rate 77 /min Treatment Wstr Work Phone: [facility] 01-02-2023 14:59-0400 Respiratory rate 16 /min Treatment Wstr Work Phone: [facility] 01-02-2023 14:59-0400 Systolic blood pressure 109 mm[Hg] Treatment Wstr Work Phone: [facility] 12-31-2022 10:23-0400 Body temperature 98.01 [degF] Treatment Wstr Work Phone: [facility] 12-31-2022 10:23-0400 Diastolic blood pressure 59 mm[Hg] Treatment Wstr Work Phone: [facility] 12-31-2022 10:23-0400 Heart rate 62 /min Treatment Wstr Work Phone: [facility] 12-31-2022 10:23-0400 Respiratory rate 18 /min Treatment Wstr Work Phone: [facility] 12-31-2022 10:23-0400 SaO2% (BldA) [Mass fraction] 99 % Treatment Wstr Work Phone: [facility] 12-31-2022 10:23-0400 Systolic blood pressure 107 mm[Hg] Treatment Wstr Work Phone: [facility] 12-24-2022 14:02-0400 Body temperature 97.7 [degF] Treatment Wstr Work Phone: [facility] 12-24-2022 14:02-0400 Diastolic blood pressure 63 mm[Hg] Treatment Wstr Work Phone: [facility] 12-24-2022 14:02-0400 Heart rate 59 /min Treatment Wstr Work Phone: [facility] 12-24-2022 14:02-0400 Respiratory rate 16 /min Treatment Wstr Work Phone: [facility] 12-24-2022 14:02-0400 Systolic blood pressure 118 mm[Hg] Treatment Wstr Work Phone: [facility] 12-21-2022 14:47-0400 Body temperature 98.4 [degF] Treatment Wstr Work Phone: [facility] 12-21-2022 14:47-0400 Diastolic blood pressure 56 mm[Hg] Treatment Wstr Work Phone: [facility] 12-21-2022 14:47-0400 Heart rate 56 /min Treatment Wstr Work Phone: [facility] 12-21-2022 14:47-0400 Respiratory rate 16 /min Treatment Wstr Work Phone: [facility] 06-30-2023 14:47-0400 SaO2% (BldA) [Mass fraction] 97 % Treatment Wstr Work Phone: [facility] 12-21-2022 14:47-0400 Systolic blood pressure 103 mm[Hg] Treatment Wstr Work Phone: [facility] 12-19-2022 15:18-0400 Body temperature 97.39 [degF] Treatment Wstr Work Phone: [facility] 12-19-2022 15:18-0400 Diastolic blood pressure 72 mm[Hg] Treatment Wstr Work Phone: [facility] 12-19-2022 15:18-0400 Heart rate 66 /min Treatment Wstr Work Phone: [facility] 12-19-2022 15:18-0400 Respiratory rate 16 /min Treatment Wstr Work Phone: [facility] 12-19-2022 15:18-0400 SaO2% (BldA) [Mass fraction] 99 % Treatment Wstr Work Phone: [facility] 12-19-2022 15:18-0400 Systolic blood pressure 112 mm[Hg] Treatment Wstr Work Phone: [facility] 12-17-2022 14:00-0400 Body temperature 98.6 [degF] Treatment Wstr Work Phone: [facility] 12-17-2022 14:00-0400 Diastolic blood pressure 63 mm[Hg] Treatment Wstr Work Phone: [facility] 12-17-2022 14:00-0400 Heart rate 51 /min Treatment Wstr Work Phone: [facility] 12-17-2022 14:00-0400 Respiratory rate 16 /min Treatment Wstr Work Phone: [facility] 12-17-2022 14:00-0400 Systolic blood pressure 113 mm[Hg] Treatment Wstr Work Phone: [facility] 12-13-2022 15:13-0400 Body temperature 98.2 [degF] Treatment Wstr Work Phone: [facility] 12-13-2022 15:13-0400 Diastolic blood pressure 73 mm[Hg] Treatment Wstr Work Phone: [facility] 12-13-2022 15:13-0400 Heart rate 62 /min Treatment Wstr Work Phone: [facility] 12-13-2022 15:13-0400 Respiratory rate 16 /min Treatment Wstr Work Phone: [facility] 12-13-2022 15:13-0400 Systolic blood pressure 125 mm[Hg] Treatment Wstr Work Phone: [facility] 11-27-2022 16:29-0400 Diastolic blood pressure 64 mm[Hg] Adrianne Ignacio MD Work Phone: [facility] 11-27-2022 16:29-0400 Systolic blood pressure 104 mm[Hg] Adrianne Ignacio MD Work Phone: [facility] 11-27-2022 15:55-0400 Body weight 66.32 kg Adrianne Ignacio MD Work Phone: [facility] 11-27-2022 15:55-0400 Heart rate 71 /min Adrianne Ignacio MD Work Phone: [facility] 11-27-2022 15:55-0400 Respiratory rate 16 /min Adrianne Ignacio MD Work Phone: [facility] 11-27-2022 15:55-0400 SaO2% (BldA) [Mass fraction] 98 % Adrianne Ignacio MD Work Phone: [facility] 11-26-2022 14:08-0400 Diastolic blood pressure 77 mm[Hg] [facility] 11-26-2022 14:08-0400 Heart rate 82 /min [facility] 11-26-2022 14:08-0400 Respiratory rate 16 /min [facility] 11-26-2022 14:08-0400 SaO2% (BldA) [Mass fraction] 97 % [facility] 11-26-2022 14:08-0400 Systolic blood pressure 136 mm[Hg] [facility] 11-26-2022 10:47-0400 Body height 160.02 cm [facility] 11-26-2022 10:47-0400 Body mass index (BMI) [Ratio] 25.7 kg/m2 [facility] 11-26-2022 10:47-0400 Body temperature 97.2 [degF] [facility] 11-26-2022 10:47-0400 Body weight 65.77 kg [facility] 11-23-2022 13:18-0400 Body height 160 cm Lalita Darius BLOCKLAYER.TRACK WATCHMAN Work Phone: [facility] 11-23-2022 13:18-0400 Body weight 65.77 kg Lalita Phoenix BLOCKLAYER.TRACK WATCHMAN Work Phone: [facility] 11-23-2022 13:18-0400 Diastolic blood pressure 70 mm[Hg] Lalita Darius BLOCKLAYER.TRACK WATCHMAN Work Phone: [facility] 11-23-2022 13:18-0400 Systolic blood pressure 100 mm[Hg] Lalita Phoenix BLOCKLAYER.TRACK WATCHMAN Work Phone: [facility] 11-21-2022 09:29-0400 Body height 160.4 cm Cristy Podlogar BLOCKLAYER.TRACK WATCHMAN Work Phone: [facility] 11-21-2022 09:29-0400 Body weight 65.5 kg Cristy Podlogar BLOCKLAYER.TRACK WATCHMAN Work Phone: [facility] 11-21-2022 09:29-0400 Diastolic blood pressure 72 mm[Hg] Cristy Podlogar BLOCKLAYER.TRACK WATCHMAN Work Phone: [facility] 11-21-2022 09:29-0400 Heart rate 68 /min Cristy Podlogar BLOCKLAYER.TRACK WATCHMAN Work Phone: [facility] 11-21-2022 09:29-0400 Respiratory rate 18 /min Cristy Podlogar BLOCKLAYER.TRACK WATCHMAN Work Phone: [facility] 11-21-2022 09:29-0400 SaO2% (BldA) [Mass fraction] 96 % Cristy Podlogar BLOCKLAYER.TRACK WATCHMAN Work Phone: [facility] 11-21-2022 09:29-0400 Systolic blood pressure 104 mm[Hg] Cristy Podlogar BLOCKLAYER.TRACK WATCHMAN Work Phone: [facility] 10-11-2022 13:45-0400 Body temperature 97.9 [degF] Tabatha Older BLOCKLAYER.TRACK WATCHMAN Work Phone: [facility] 10-11-2022 13:45-0400 Body weight 63.87 kg Tabatha Older BLOCKLAYER.TRACK WATCHMAN Work Phone: [facility] 10-11-2022 13:45-0400 Diastolic blood pressure 76 mm[Hg] Tabatha Older BLOCKLAYER.TRACK WATCHMAN Work Phone: [facility] 10-11-2022 13:45-0400 Heart rate 85 /min Tabatha Older BLOCKLAYER.TRACK WATCHMAN Work Phone: [facility] 10-11-2022 13:45-0400 Respiratory rate 16 /min Tabatha Older BLOCKLAYER.TRACK WATCHMAN Work Phone: [facility] 10-11-2022 13:45-0400 SaO2% (BldA) [Mass fraction] 99 % Tabatha Older BLOCKLAYER.TRACK WATCHMAN Work Phone: [facility] 10-11-2022 13:45-0400 Systolic blood pressure 128 mm[Hg] Tabatha Older BLOCKLAYER.TRACK WATCHMAN Work Phone: [facility] 09-21-2022 17:11-0400 Body temperature 97.5 [degF] Lyric Avtar BLOCKLAYER.TRACK WATCHMAN Work Phone: [facility] 09-21-2022 17:11-0400 Body weight 65.77 kg Lyric Avtar BLOCKLAYER.TRACK WATCHMAN Work Phone: [facility] 09-21-2022 17:11-0400 Diastolic blood pressure 60 mm[Hg] Lyric Avtar BLOCKLAYER.TRACK WATCHMAN Work Phone: [facility] 09-21-2022 17:11-0400 Heart rate 69 /min Lyric Avtar BLOCKLAYER.TRACK WATCHMAN Work Phone: [facility] 09-21-2022 17:11-0400 Respiratory rate 18 /min Lyric Avtar BLOCKLAYER.TRACK WATCHMAN Work Phone: [facility] 09-21-2022 17:11-0400 SaO2% (BldA) [Mass fraction] 98 % Lyric Carballok BLOCKLAYER.TRACK WATCHMAN Work Phone: [facility] 09-21-2022 17:11-0400 Systolic blood pressure 112 mm[Hg] Lyric Avtar BLOCKLAYER.TRACK WATCHMAN Work Phone: [facility] 08-15-2022 18:02-0500 Body temperature 98.01 [degF] Falca Athy PA-C Work Phone: [facility] 08-15-2022 18:02-0500 Body weight 64.41 kg Flaca Athy PA-C Work Phone: [facility] 08-15-2022 18:02-0500 Diastolic blood pressure 60 mm[Hg] Flaca Athy PA-C Work Phone: [facility] 08-15-2022 18:02-0500 Heart rate 80 /min Flaca Athy PA-C Work Phone: [facility] 08-15-2022 18:02-0500 Respiratory rate 18 /min Flaca Athy PA-C Work Phone: [facility] 08-15-2022 18:02-0500 SaO2% (BldA) [Mass fraction] 97 % Flaca Athy PA-C Work Phone: [facility] 08-15-2022 18:02-0500 Systolic blood pressure 118 mm[Hg] Flaca Athy PA-C Work Phone: [facility] 07-30-2022 22:41-0500 Body height 160.02 cm [facility] 07-30-2022 22:41-0500 Body mass index (BMI) [Ratio] 24.9 kg/m2 [facility] 07-30-2022 22:41-0500 Body temperature 99.2 [degF] [facility] 07-30-2022 22:41-0500 Body weight 63.8 kg [facility] 07-30-2022 22:41-0500 Diastolic blood pressure 68 mm[Hg] [facility] 07-30-2022 22:41-0500 Heart rate 114 /min [facility] 07-30-2022 22:41-0500 Respiratory rate 22 /min [facility] 07-30-2022 22:41-0500 SaO2% (BldA) [Mass fraction] 96 % [facility] 07-30-2022 22:41-0500 Systolic blood pressure 110 mm[Hg] [facility] 06-17-2022 12:41-0500 Body temperature 96.6 [degF] [facility] 06-17-2022 12:41-0500 Diastolic blood pressure 47 mm[Hg] [facility] 06-17-2022 12:41-0500 Heart rate 79 /min [facility] 06-17-2022 12:41-0500 Respiratory rate 18 /min [facility] 06-17-2022 12:41-0500 SaO2% (BldA) [Mass fraction] 97 % [facility] 06-17-2022 12:41-0500 Systolic blood pressure 101 mm[Hg] [facility] 06-17-2022 10:27-0500 Body height 160.02 cm [facility] Work Phone: 06-17-2022 10:27-0500 Body mass index (BMI) [Ratio] 24.7 kg/m2 [facility] 06-17-2022 10:27-0500 Body weight 63.5 kg [facility] 02-05-2022 10:05-0400 Respiratory rate 16 /min [facility] Work Phone: 02-05-2022 08:20-0400 Body height 160.02 cm [facility] Work Phone: 02-05-2022 08:20-0400 Body mass index (BMI) [Ratio] 23 kg/m2 [facility] Work Phone: 02-05-2022 08:20-0400 Body temperature 97.8 [degF] [facility] Work Phone: 02-05-2022 08:20-0400 Body weight 58.96 kg [facility] Work Phone: 02-05-2022 08:20-0400 Diastolic blood pressure 70 mm[Hg] [facility] Work Phone: 02-05-2022 08:20-0400 Heart rate 75 /min [facility] Work Phone: 02-05-2022 08:20-0400 SaO2% (BldA) [Mass fraction] 100 % [facility] Work Phone: 02-05-2022 08:20-0400 Systolic blood pressure 115 mm[Hg] [facility] Work Phone: 11-23-2021 19:50-0400 Diastolic blood pressure 73 mm[Hg] [facility] Work Phone: 11-23-2021 19:50-0400 Heart rate 54 /min [facility] Work Phone: 11-23-2021 19:50-0400 Respiratory rate 18 /min [facility] Work Phone: 11-23-2021 19:50-0400 SaO2% (BldA) [Mass fraction] 100 % [facility] Work Phone: 11-23-2021 19:50-0400 Systolic blood pressure 115 mm[Hg] [facility] Work Phone: 11-23-2021 15:47-0400 Body mass index (BMI) [Ratio] 23.9 kg/m2 [facility] Work Phone: 11-23-2021 15:47-0400 Body temperature 97.7 [degF] [facility] Work Phone: 11-23-2021 15:47-0400 Body weight 61.23 kg [facility] Work Phone: 11-21-2021 15:44-0400 Body temperature 99 [degF] Yanet Bacon APRN.TRACK WATCHMAN Work Phone: [facility] 11-21-2021 15:44-0400 Body weight 61.96 kg Yanet Bacon APRN.TRACK WATCHMAN Work Phone: [facility] 11-21-2021 15:44-0400 Diastolic blood pressure 68 mm[Hg] Yanet Bacon APRN.TRACK WATCHMAN Work Phone: [facility] 11-21-2021 15:44-0400 Heart rate 88 /min Yanet Bacon APRN.TRACK WATCHMAN Work Phone: [facility] 11-21-2021 15:44-0400 Respiratory rate 18 /min Yanet Bacon APRN.TRACK WATCHMAN Work Phone: [facility] 11-21-2021 15:44-0400 Systolic blood pressure 124 mm[Hg] Yanet Bacon APRN.TRACK WATCHMAN Work Phone: [facility] 08-25-2021 08:15-0500 Body height 160.02 cm [facility] Work Phone: 08-25-2021 08:15-0500 Body mass index (BMI) [Ratio] 25.2 kg/m2 [facility] Work Phone: 08-25-2021 08:15-0500 Body temperature 97.7 [degF] [facility] Work Phone: 08-25-2021 08:15-0500 Body weight 64.6 kg [facility] Work Phone: 08-25-2021 08:15-0500 Diastolic blood pressure 78 mm[Hg] [facility] Work Phone: 08-25-2021 08:15-0500 Heart rate 61 /min [facility] Work Phone: 08-25-2021 08:15-0500 Respiratory rate 16 /min [facility] Work Phone: 08-25-2021 08:15-0500 SaO2% (BldA) [Mass fraction] 100 % [facility] Work Phone: 08-25-2021 08:15-0500 Systolic blood pressure 133 mm[Hg] [facility] Work Phone: Encounters Encounter Date Encounter Type Care Provider Facility Start: 03-10-2025 End: 03-10-2025 ambulatory SHAVON LACEY Facility:[facility] Start: 03-08-2025 End: 03-08-2025 Admission to same day surgery center Leslie Luong APRN.TRACK WATCHMAN Work Phone: Colorectal Surgery Comment on above: Still having issues Start: 03-08-2025 End: 03-08-2025 ambulatory Leslie Luong APRN.TRACK WATCHMAN Work Phone: Colorectal Surgery Start: 02-24-2025 End: 02-25-2025 Patient encounter procedure Leslie Luong APRN.TRACK WATCHMAN Work Phone: Colorectal Surgery Comment on above: Chronic constipation (Primary Dx); Pelvic floor dysfunction Start: 02-24-2025 End: 02-24-2025 Nursing evaluation of patient and report Kelvin Chong RN Colorectal Surgery Comment on above: Chronic constipation ; Bloating Start: 02-24-2025 End: 02-25-2025 ambulatory LESLIE LUONG Facility:[facility] Start: 02-19-2025 End: 03-08-2025 Follow-up encounter Shavon Lacey MD Work Phone: [facility] [place] Start: 02-16-2025 End: 02-16-2025 Admission to same day surgery center Kelvin Chong RN Colorectal Surgery Comment on above: Instructions for sagrario ma prep for anorectal manometry at [facility] Start: 02-16-2025 End: 02-16-2025 E-mail encounter from caregiver Kelvin Chong RN Colorectal Surgery Start: 02-16-2025 ambulatory ADRIANNE IGNACIO Facility:[facility] Start: 02-16-2025 End: 02-16-2025 Subsequent hospital visit by physician Xr [facility] Work Phone: Radiology Comment on above: Chronic constipation [K59.09] Start: 02-16-2025 End: 02-16-2025 Office outpatient visit 25 minutes Shavon Lacey MD Work Phone: Gastroenterology [place] Comment on above: Epigastric pain (Carmen aly Dx); Chronic constipation; Bloating; Early satiety Start: 02-16-2025 End: 02-16-2025 ambulatory DOMITILA KALESSA Facility:[facility] Start: 02-10-2025 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] Start: 02-10-2025 End: 02-10-2025 Patient encounter procedure Williams Barton MD Work Phone: Rheumatology Comment on above: Positive BONNIE (antinu clear antibody) (Primary Dx); Interface dermatitis; Nausea and vomiting, unspecified vomiting type; Lordosis; Postural kyphosis, unspecified spinal region; Nausea; Dyspepsia Start: 02-10-2025 End: 02-10-2025 ambulatory DOMITILA KALESSA Facility:[facility] Start: 01-25-2025 End: 02-11-2025 Follow-up encounter Domitila Galicia APRN.TRACK WATCHMAN Work Phone: Gastroenterology [place] Start: 01-19-2025 End: 01-19-2025 ambulatory DOMITILA KALESSA Facility:[facility] Start: 01-19-2025 End: 01-19-2025 Follow-up encounter Coleen Maria MD Work Phone: Gastroenterology Start: 01-15-2025 End: 01-15-2025 Emergency department patient visit ADRIANNE IGNACIO Facility:[facility] Start: 01-15-2025 End: 01-15-2025 Telephone encounter Domitila Galicia APRN.TRACK WATCHMAN Work Phone: Gastroenterology [place] Comment on above: Patient Update Start: 01-13-2025 End: 01-14-2025 Follow-up encounter Adrianne Ignacio MD Work Phone: [facility] [place] Start: 01-13-2025 ambulatory DOMITILA GALICIA Facilit y:[facility] Start: 01-13-2025 End: 01-13-2025 Subsequent hospital visit by physician Coleen Maria MD Work Phone: Ambulatory Surgery Comment on above: Nausea [R11.0] Start: 01-12-2025 ambulatory ADRIANNE IGNACIO Facility:[facility] Start: 01-12-2025 End: 01-12-2025 Subsequent hospital visit by physician Screen Mamm[facility] Comment on above: Encounter for screen ing mammogram for breast cancer [Z12.31] Start: 01-09-2025 End: 01-09-2025 ambulatory ADRIANNE IGNACIO Facility:[facility] Start: 01-08-2025 End: 01-08-2025 Patient encounter procedure Preet Valente APRN.TRACK WATCHMAN Work Phone: OB/Gynecology Comment on above: Encounter for gyneco logical examination (general) (routine) without abnormal findings (Primary Dx); Encounter for screening mammogram for breast cancer Start: 01-08-2025 End: 01-08-2025 Patient encounter status Preet Valente APRN.TRACK WATCHMAN Work Phone: [facility] Start: 01-08-2025 End: 01-08-2025 ambulatory PREET VALENTE Facility:[facility] Start: 01-08-2025 Encounter for gynecological examination (general) (routine) without abnormal findings PREET VALENTE [facility] Start: 01-07-2025 End: 01-07-2025 Telephone encounter Panda Marinelli MD, PhD Work Phone: Neurology Comment on above: Orders (Stratus) Start: 01-06-2025 End: 01-06-2025 Admission to same day surgery center Coleen Maria MD Work Phone: Ambulatory Surgery Start: 01-06-2025 End: 01-06-2025 ambulatory Coleen Maria MD Work Phone: Ambulatory Surgery Start: 01-05-2025 End: 01-05-2025 Patient encounter procedure Ilana Dillardshayla COATES-C Work Phone: Orthopaedics Comment on above: Chondromalacia of ri ght patella (Primary Dx); Chronic pain of right knee Start: 01-05-2025 End: 01-05-2025 ambulatory ADRIANNE IGNACIO Facility:[facility] Start: 01-05-2025 End: 01-05-2025 Subsequent hospital visit by physician [facility] Work Phone: Radiology Comment on above: Right knee pain, uns pecified chronicity [M25.561] Start: 01-04-2025 End: 01-04-2025 Telemedicine consultation with patient Domingo COATES-C Work Phone: Neurology Start: 01-04-2025 End: 01-04-2025 ambulatory Domingo Alaniskendra COATES-C Work Phone: Neurology Comment on above: Focal epilepsy (HCC) (Primary Dx) Start: 12-23-2024 End: 12-28-2024 Telephone encounter Panda Marinelli MD, PhD Work Phone: Neurology Comment on above: Other (Speech issues and feeling as if steps are off) Start: 12-17-2024 End: 12-17-2024 Patient encounter procedure Kristen Abreu APRN.TRACK WATCHMAN Work Phone: [facility] Comment on above: Strep throat (Primar y Dx) Start: 12-17-2024 End: 12-17-2024 ambulatory KRISTEN ABREU Facility:[facility] Start: 12-08-2024 End: 01-08-2025 ambulatory Adrianne Ignacio MD Work Phone: [facility] [place] Start: 11-06-2024 End: 11-06-2024 Office outpatient new 45 minutes Domitila Galicia APRN.TRACK WATCHMAN Work Phone: Gastroenterology [place] Comment on above: Nausea (Primary Dx); Gastro-esophageal reflux disease without esophagitis; Epigastric pain; Other constipation; Nausea and vomiting, unspecified vomiting type; Encounter for screening for malignant neoplasm of colon; Decreased appetite Start: 11-06-2024 End: 11-06-2024 Telephone encounter Domitila Galicia APRN.CNP Work Phone: Gastroenterology [place] Start: 11-06-2024 End: 11-06-2024 ambulatory ADRIANNE IGNACIO Facility:[facility] Start: 10-27-2024 End: 10-27-2024 Follow-up encounter Mee Holder MA [facility] [place] Comment on above: Results Start: 10-26-2024 End: 10-26-2024 Subsequent hospital visit by physician Chela [facility] Work Phone: Radiology Comment on above: Nausea [R11.0] Start: 10-26-2024 End: 10-26-2024 Patient encounter procedure Cristy Dunbar APRN.CNP Work Phone: Family [facility] [place] Comment on above: Nausea (Primary Dx); Generalized abdominal pain Start: 10-26-2024 End: 10-26-2024 ambulatory ADRIANNE IGNACIO Facility:[facility] Start: 10-26-2024 End: 10-27-2024 Follow-up encounter Keri Dunham LPN [facility] [place] Comment on above: Medication Problem Start: 09-21-2024 End: 09-22-2024 Refill Imani Esteves APRN.CNP Work Phone: Neurology Comment on above: Refill Request Start: 09-17-2024 End: 09-21-2024 Follow-up encounter René Bran PA-C Work Phone: Dermatology Start: 09-10-2024 End: 09-10-2024 ambulatory ADRIANNE IGNACIO Facility:[facility] Start: 09-10-2024 End: 09-10-2024 Patient encounter procedure René Bran PA-C Work Phone: Dermatology Comment on above: Rash and nonspecific skin eruption (Primary Dx) Start: 08-26-2024 End: 08-26-2024 Patient encounter procedure Cristy Dunbar APRN.TRACK WATCHMAN Work Phone: [facility] Comment on above: Left flank pain (Carmen aly Dx) Start: 08-26-2024 End: 08-26-2024 ambulatory [facility] Facility:[facility] Start: 08-26-2024 End: 08-26-2024 ambulatory [facility] Facility:[facility] Start: 08-26-2024 End: 08-26-2024 Patient encounter procedure Martine Marinelli BLOCKLAYER.TRACK WATCHMAN Work Phone: Neurology Comment on above: Migraine without aur a and with status migrainosus, not intractable (Primary Dx) Start: 08-24-2024 End: 10-24-2024 Follow-up encounter Yanet Bacon APRN.TRACK WATCHMAN Work Phone: [facility] Start: 08-22-2024 End: 08-22-2024 Emergency department patient visit [facility] Facility:[facility] Start: 08-22-2024 End: 08-22-2024 ambulatory [facility] Facility:[facility] Start: 08-22-2024 End: 08-22-2024 Office outpatient visit 25 minutes Woodrow Coburn APRN.TRACK WATCHMAN Work Phone: [place] [facility] Comment on above: Screening for genito urinary condition (Primary Dx) Start: 08-05-2024 End: 08-05-2024 ambulatory [facility] Facility:[facility] Start: 08-05-2024 End: 08-05-2024 Patient encounter procedure Ana COATES Work Phone: [place] [facility] Comment on above: Strep pharyngitis (P rimary Dx); Sore throat Start: 08-04-2024 End: 08-04-2024 ambulatory [facility] Facility:[facility] Start: 08-04-2024 End: 08-04-2024 Patient encounter procedure Suzanne Chen APRN.TRACK WATCHMAN Work Phone: Dermatology Comment on above: Psoriasis vulgaris ( Primary Dx); Rash and nonspecific skin eruption Start: 07-29-2024 End: 07-30-2024 Telephone encounter Suzanne Chen BLOCKLAYER.TRACK WATCHMAN Work Phone: Dermatology Comment on above: Patient Question Start: 07-16-2024 End: 07-16-2024 ambulatory [facility] Facility:[facility] Start: 07-16-2024 End: 07-16-2024 Patient encounter procedure Jeffy Domingayue BLOCKLAYER.WINSTONM Work Phone: OB/Gynecology Comment on above: Tinea corporis (Prim juana Dx); Skin rash; Unable to empty bladder Start: 07-10-2024 End: 07-10-2024 Refill Imani Esteves BLOCKLAYER.TRACK WATCHMAN Work Phone: Neurology Comment on above: Refill Request Start: 07-01-2024 End: 07-01-2024 ambulatory CRISTY PODLOGAR Facility:[facility] Start: 07-01-2024 End: 07-01-2024 Patient encounter procedure Cristy Mederoslogbony BLOCKLAYER.TRACK WATCHMAN Work Phone: [facility] [place] Comment on above: Annual physical exam (Primary Dx); Focal epilepsy (HCC); Gastroesophageal reflux disease, unspecified whether esophagitis present; Migraine with aura, not intractable, without status migrainosus Start: 06-29-2024 End: 06-29-2024 ambulatory [facility] Facility:[facility] Start: 06-29-2024 End: 06-29-2024 Patient encounter procedure Henrique Cuevas MD Work Phone: OB/Gynecology Comment on above: Tinea corporis (Prim juana Dx) Start: 06-24-2024 End: 06-25-2024 Refill Ella Jacobo PA-C Work Phone: Neurology Comment on above: Refill Request Start: 06-01-2024 End: 06-01-2024 Patient encounter procedure Iveth Uriarte BLOCKLAYER.TRACK WATCHMAN Work Phone: [facility] [place] Comment on above: Visit for suture rem oval (Primary Dx); Laceration of right middle finger without foreign body with damage to nail, subsequent encounter Start: 06-01-2024 End: 06-01-2024 ambulatory ADRIANNE IGNACIO Facility:[facility] Start: 05-25-2024 End: 05-25-2024 Telephone encounter Martine Marinelli APRN.TRACK WATCHMAN Work Phone: Neurology Start: 05-24-2024 End: 05-24-2024 Emergency department patient visit Skip Ignacio Facility:[facility] Start: 05-22-2024 End: 05-22-2024 ambulatory MEREDITH GRANV[place]LE Facility:[facility] Start: 05-22-2024 End: 05-22-2024 Patient encounter procedure Martine Marinelli APRN.TRACK WATCHMAN Work Phone: Neurology Comment on above: Migraine without aur a and with status migrainosus, not intractable (Primary Dx); Nonintractable headache, unspecified chronicity pattern, unspecified headache type Start: 05-07-2024 End: 05-07-2024 Telephone encounter Panda Marinelli MD, PhD Work Phone: Neurology Comment on above: general (Patient iss ues) Start: 04-29-2024 End: 04-29-2024 Telephone encounter Cristy Dunbar APRN.TRACK WATCHMAN Work Phone: [facility] [place] Comment on above: Results Start: 04-29-2024 End: 04-29-2024 Subsequent hospital visit by physician Chela [facility] Work Phone: Radiology Comment on above: Acute cough [R05.1] Start: 04-29-2024 End: 04-29-2024 Patient encounter procedure Cristy Podlogbony CARDENASTRACK WATCHMAN Work Phone: [facility] [place] Comment on above: Acute cough (Primary Dx) Start: 04-29-2024 End: 04-29-2024 ambulatory CRISTY PODLOGBONY Facility:[facility] Start: 04-13-2024 End: 04-13-2024 Subsequent hospital visit by physician Chela [facility] Work Phone: Radiology Comment on above: Acute cough [R05.1] Start: 04-13-2024 End: 04-13-2024 ambulatory ADRIANNE IGNACIO Facility:[facility] Start: 04-13-2024 End: 04-13-2024 Office outpatient visit 25 minutes Dhiraj Whitt MD Work Phone: [facility] Comment on above: Pneumonia of left lo wer lobe due to infectious organism (Primary Dx); Acute cough Start: 03-04-2024 End: 03-04-2024 Patient encounter procedure Cristy Dunbar APRN.TRACK WATCHMAN Work Phone: [facility] Comment on above: Epigastric pain Start: 02-27-2024 End: 02-27-2024 Patient encounter procedure Dennise Gonzalez DO Work Phone: Orthopaedics Comment on above: Acute pain of right knee (Primary Dx); Chondromalacia of right patella Start: 02-14-2024 End: 02-21-2024 Telephone encounter Adrianne Ignacio MD Work Phone: [facility] Comment on above: Medication Problem Start: 02-08-2024 End: 02-08-2024 Emergency department patient visit ADRIANNE IGNACIO Facility:[facility] Start: 02-07-2024 End: 02-07-2024 Subsequent hospital visit by physician [facility] (1.5t[facility] Comment on above: Acute pain of right knee [M25.561] Start: 02-07-2024 End: 02-07-2024 ambulatory Rachelle Beavers APRN.TRACK WATCHMAN Work Phone: Neurology Comment on above: Focal epilepsy (HCC) Start: 02-07-2024 End: 02-07-2024 Telemedicine consultation with patient Rachelle Beavers APRLyricTRACK WATCHMAN Work Phone: Neurology Start: 01-23-2024 End: 01-23-2024 Patient encounter procedure Dennise Gonzalez DO Work Phone: Orthopaedics Comment on above: Acute pain of right knee (Primary Dx); Chondromalacia of right patella; Tear of medial meniscus of right knee, current, unspecified tear type, initial encounter Start: 01-20-2024 Telephone encounter Skip Ignacio MD Work Phone: [facility] Comment on above: Results Seizures Start: 01-17-2024 End: 01-17-2024 Subsequent hospital visit by physician Mri [facility] (I-Stat/1.5t) Work Phone: Radiology Comment on above: Liver lesion [K76.9] Start: 01-15-2024 End: 01-15-2024 ambulatory Skip Ignacio Facility:[facility] Start: 01-13-2024 Telephone encounter Skip Ignacio MD Work Phone: [facility] Comment on above: Patient Question Start: 01-08-2024 End: 01-08-2024 Patient encounter procedure Adrianne Ignacio MD Work Phone: [facility] Comment on above: Epigastric pain (Carmen aly Dx); Nausea; Liver lesion; Skin tags, multiple acquired; S/P cryotherapy of skin lesion Start: 01-08-2024 End: 01-08-2024 Subsequent hospital visit by physician [facility] Work Phone: Radiology Comment on above: Epigastric pain [R10 .13] Start: 12-27-2023 Telephone encounter Cristy becerra APRN.CNP Work Phone: [facility] Comment on above: Results Start: 12-25-2023 End: 12-25-2023 Patient encounter procedure Adrianne Ignacio MD Work Phone: [facility] Comment on above: Epigastric pain (Carmen aly Dx); Nausea; Psoriasis of scalp; Atopic dermatitis of scalp Start: 12-20-2023 Refill Adrianne Ignacio MD Work Phone: [facility] Comment on above: Refill Request Start: 12-10-2023 End: 12-10-2023 Subsequent hospital visit by physician Diagnostic Mammo [facility] Comment on above: Abnormal screening m ammogram [R92.8] Start: 12-05-2023 Telephone encounter Panda villalobos MD, PhD Work Phone: Neurology Comment on above: Medication Preauthor ization ([place] for Laosamide 100mg) Medication Preauthor ization ([place] for Lacosamide 50mg) Start: 12-03-2023 Telephone encounter Panda villalobos MD, PhD Work Phone: Neurology Comment on above: Patient Update (Kay ent update ) Start: 11-11-2023 ambulatory Temitope duran MD Work Phone: OB/Gynecology Comment on above: Mammogram Start: 11-07-2023 Documentation procedure Mammog crys Coordinator [facility] Department Start: 11-07-2023 Letter encounter Mammography Coordinator [facility] Department Start: 11-06-2023 End: 11-06-2023 Patient encounter procedure Temitope Acuna MD Work Phone: OB/Gynecology Comment on above: Postop check (Primar y Dx) Start: 11-06-2023 End: 11-06-2023 Subsequent hospital visit by physician Screen Mammo [facility] Comment on above: Encounter for screen ing mammogram for malignant neoplasm of breast [Z12.31] Start: 10-28-2023 ambulatory Temitope duran MD Work Phone: OB/Gynecology Comment on above: Return to work Start: 10-24-2023 End: 10-24-2023 Subsequent hospital visit by physician Xr [facility] [place] Work Phone: Radiology Comment on above: Foot pain, left [M79 .672] Start: 10-24-2023 End: 10-24-2023 Patient encounter procedure Ismael Alonzo APRN.CNP Work Phone: [facility] Comment on above: Foot pain, left (Carmen aly Dx) Start: 10-16-2023 End: 10-16-2023 Patient encounter procedure Temitope Acuna MD Work Phone: OB/Gynecology Comment on above: Malaise and fatigue (Primary Dx); Postop check Start: 10-07-2023 Telephone encounter Temitope Acuna MD Work Phone: OB/Gynecology Comment on above: Post Op Start: 09-30-2023 End: 09-30-2023 Patient encounter procedure Temitope Acuna MD Work Phone: OB/Gynecology Comment on above: Postop check (Primar y Dx) Start: 09-24-2023 ambulatory Temitope duran MD Work Phone: [facility] Start: 09-24-2023 Follow-up encounter Temitope Acuna MD Work Phone: OB/Gynecology Comment on above: Post op follow up Start: 09-23-2023 End: 09-23-2023 ambulatory Flor Eid [place] [place] Start: 09-23-2023 End: 09-24-2023 Evaluation and management of inpatient [facility] Work Phone: Start: 09-22-2023 Admission [facility] surgery [facility] Work Phone: Start: 09-22-2023 ambulatory [facility] Work Phone: Start: 09-17-2023 End: 09-17-2023 Patient encounter procedure Temitope Acuna MD Work Phone: OB/Gynecology Comment on above: Postop check (Primar y Dx) Start: 09-11-2023 End: 09-11-2023 Patient encounter procedure Temitope Acuna MD Work Phone: OB/Gynecology Comment on above: Postop check (Primar y Dx) Start: 09-09-2023 Telephone encounter Teimtope Acuna MD Work Phone: OB/Gynecology Comment on above: Post Op Start: 09-05-2023 ambulatory Temitope duran MD Work Phone: OB/Gynecology Comment on above: Post op Start: 09-05-2023 End: 09-05-2023 Patient encounter procedure Dennise Gonzalez DO Work Phone: Orthopaedics Comment on above: Acute pain of right knee (Primary Dx); Chondromalacia of right patella Start: 09-02-2023 End: 09-02-2023 Admission to [place] [id number] Work Phone: [facility] Start: 09-02-2023 End: 09-02-2023 ambulatory [facility] [place] [facility] Work Phone: Pre Anesthesia Comment on above: Pre-op evaluation (P rimary Dx); Gastroesophageal reflux disease, unspecified whether esophagitis present; URI (obstructive sleep apnea); Anxiety; PONV (postoperative nausea and vomiting); Focal epilepsy (HCC); 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agia Start: 09-02-2023 End: 09-02-2023 Preprocedural examination done [facility] 1 Work Phone: [facility] Work Phone: Start: 08-26-2023 End: 08-26-2023 Patient encounter procedure Flaca Bentley PA-C Work Phone: [facility] Comment on above: Acute pain of right knee (Primary Dx) Start: 08-16-2023 Telephone encounter Temitope Acuna MD Work Phone: OB/Gynecology Comment on above: Schedule Surgery Start: 08-12-2023 Telephone encounter Panda villalobos MD, PhD Work Phone: Neurology Comment on above: Insurance Authorizat ion (Vimpat ) Start: 08-08-2023 End: 08-08-2023 Patient encounter procedure Temitope Acuna MD Work Phone: OB/Gynecology Comment on above: Dysmenorrhea (Primar y Dx); Menorrhagia with regular cycle; Adenomyosis; Post endometrial ablation syndrome Start: 08-05-2023 ambulatory Abbi dixon BLOCKLAYER.TRACK WATCHMAN Work Phone: Neurology Comment on above: Meds Start: 07-26-2023 ambulatory Temitope duran MD Work Phone: [place] Start: 07-26-2023 Follow-up encounter Temitope Acuna MD Work Phone: OB/Gynecology Comment on above: Follow up Start: 06-08-2023 Felipa Reddy MD Work Phone: Neurology Start: 06-07-2023 ambulatory Nils Reddy MD Work Phone: Neurology Comment on above: topomax side affects Start: 06-07-2023 Chart abstracting Nils Reddy MD Work Phone: Neurology Start: 06-07-2023 Telephone encounter Nils Reddy MD Work Phone: Neurology Start: 06-03-2023 End: 06-03-2023 Patient encounter procedure Nils Reddy MD Work Phone: Neurology Comment on above: Intractable migraine with aura without status migrainosus (Primary Dx); Focal epilepsy (HCC); Intractable headache, unspecified chronicity pattern, unspecified headache type; Paresthesia of skin; Hypesthesia; Pulsatile tinnitus, right ear Start: 06-02-2023 Chart abstracting Nils Reddy MD Work Phone: Neurology Start: 05-24-2023 Telephone encounter Panda villalobos MD, PhD Work Phone: Neurology Comment on above: Medication Problem ( AEDs - Medication Changes) Start: 05-22-2023 End: 05-22-[address] ANGÉLICA.TRACK WATCHMAN Work Phone: Neurology Comment on above: Partial symptomatic epilepsy with complex partial seizures, intractable, without status epilepticus (HCC) (Primary Dx) Start: 05-22-2023 End: 05-22-2023 Telemedicine consultation with patient Abbi Way BLOCKLAYER.TRACK WATCHMAN Work Phone: [facility] Start: 05-01-2023 Telephone encounter Panda villalobos MD, PhD Work Phone: Neurology Comment on above: Other (Headache conc neno/) Start: 04-12-2023 Telephone encounter Panda villalobos MD, PhD Work Phone: Neurology Comment on above: Patient Update (Kepp ra) Start: 04-01-2023 Telephone encounter Temitope Acuna MD Work Phone: OB/Gynecology Comment on above: Patient Question Start: 03-29-2023 Telephone encounter Panda villalobos MD, PhD Work Phone: Neurology Comment on above: Orders (MRI, EEG) Start: 03-27-2023 ambulatory Panda beck MD, PhD Work Phone: Neurology Comment on above: Unusual symptoms Start: 03-13-2023 End: 03-13-2023 Patient encounter procedure Temitope Acuna MD Work Phone: OB/Gynecology Comment on above: Postop check (Primar y Dx) Start: 02-26-2023 Telephone encounter Temitope Acuna MD Work Phone: OB/Gynecology Comment on above: Patient Question Start: 02-24-2023 End: 02-24-2023 Emergency department patient visit [facility] Work Phone: Start: 02-20-2023 End: 02-20-2023 Patient encounter procedure Temitope Acuna MD Work Phone: OB/Gynecology Comment on above: Abnormal uterine ble eding (AUB) (Primary Dx); Dysmenorrhea Start: 02-13-2023 End: 02-13-2023 ambulatory Sarita Giraldo APRN.TRACK WATCHMAN Work Phone: Pre Anesthesia Comment on above: Pre op instructions Pre-op evaluation (P rimary Dx); PONV (postoperative nausea and vomiting); URI (obstructive sleep apnea); 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agia; Focal epilepsy (HCC); Gastroesophageal reflux disease, unspecified whether esophagitis present Start: 02-13-2023 E-mail encounter fro m caregiver Sarita Giraldo APRN.TRACK WATCHMAN Work Phone: [facility] Start: 02-13-2023 End: 02-13-2023 [facility] Work Phone: [facility] Start: 02-13-2023 End: 02-13-2023 Preprocedural examination done [facility] Work Phone: [facility] Work Phone: Start: 02-12-2023 End: 02-12-2023 Patient encounter procedure Lyric Nova BLOCKLAYER.TRACK WATCHMAN [facility] Comment on above: Sore throat (Primary Dx); URI, acute Start: 02-07-2023 Telephone encounter Temitope Acuna MD Work Phone: OB/Gynecology Comment on above: Results Start: 01-31-2023 E-mail encounter fro m caregiver Temitope Acuna MD Work Phone: [facility] Start: 01-31-2023 Patient encounter procedure Temitope Acuna MD Work Phone: Pre Anesthesia Comment on above: PACC APPOINTMENT Start: 01-30-2023 Telephone encounter Temitope Acuna MD Work Phone: OB/Gynecology Comment on above: Schedule Surgery Start: 01-30-2023 End: 01-30-2023 Patient encounter procedure Temitope Acuna MD Work Phone: OB/Gynecology Comment on above: Abnormal uterine ble eding (AUB) (Primary Dx) Start: 01-28-2023 End: 01-28-2023 Patient encounter procedure Cristy Dunbar BLOCKLAYER.TRACK WATCHMAN Work Phone: [facility] Comment on above: Iron deficiency anem ia due to chronic blood loss (Primary Dx); Fatigue, unspecified type Start: 01-21-2023 Telephone encounter Temitope Acuna MD Work Phone: OB/Gynecology Comment on above: Patient Question Start: 01-08-2023 End: 01-08-2023 ambulatory Treatment Rm 13 [facility] Work Phone: Hematology/Oncology Comment on above: Iron deficiency anem ia due to sideropenic dysphagia (Primary Dx) Iron infusion questi on Start: 01-02-2023 End: 01-02-2023 ambulatory Treatment Rm 13 [facility] Work Phone: Hematology/Oncology Comment on above: Iron deficiency anem ia due to sideropenic dysphagia (Primary Dx) Start: 12-31-2022 End: 12-31-2022 ambulatory Treatment Rm 13 [facility] Work Phone: Hematology/Oncology Comment on above: Iron deficiency anem ia due to sideropenic dysphagia (Primary Dx) Start: 12-24-2022 End: 12-24-2022 ambulatory Treatment Rm 13 [facility] Work Phone: Hematology/Oncology Comment on above: Iron deficiency anem ia due to sideropenic dysphagia (Primary Dx) Start: 12-21-2022 End: 12-21-2022 ambulatory Treatment Rm 13 [facility] Work Phone: Hematology/Oncology Comment on above: Iron deficiency anem ia due to sideropenic dysphagia (Primary Dx) Start: 12-19-2022 End: 12-19-2022 ambulatory Treatment Rm 13 [facility] Work Phone: Hematology/Oncology Comment on above: Iron deficiency anem ia due to sideropenic dysphagia (Primary Dx) Start: 12-19-2022 Telephone encounter Jose Guadalupe la DO Work Phone: Hematology/Oncology Comment on above: Nausea Start: 12-17-2022 End: 12-17-2022 ambulatory Treatment Rm 13 [facility] Work Phone: Hematology/Oncology Comment on above: Iron deficiency anem ia due to sideropenic dysphagia (Primary Dx) Start: 12-13-2022 End: 12-13-2022 ambulatory Treatment Rm 13 [facility] Work Phone: Hematology/Oncology Comment on above: Iron deficiency anem ia due to sideropenic dysphagia (Primary Dx) Start: 12-11-2022 End: 12-11-2022 ambulatory Treatment Rm 13 [facility] Work Phone: Hematology/Oncology Comment on above: Iron deficiency anem ia due to sideropenic dysphagia (Primary Dx) Start: 12-11-2022 Telephone encounter Skip Ignacio MD Work Phone: [facility] Comment on above: Results Start: 12-10-2022 Telephone encounter Cristy becerra APRN.CNP Work Phone: [facility] Comment on above: Insurance Authorizat ion Start: 12-07-2022 Orders Only Cristy Dunbar BLOCKLAYER.TRACK WATCHMAN Work Phone: [facility] Comment on above: Iron deficiency anem ia, unspecified iron deficiency anemia type (Primary Dx) Appointment Start: 11-30-2022 ambulatory Cristy Dunbar BLOCKLAYER.TRACK WATCHMAN Work Phone: [facility] Comment on above: iron Start: 11-30-2022 Telephone encounter Lalita murphy BLOCKLAYER.TRACK WATCHMAN Work Phone: OB/Gynecology Comment on above: Results Start: 11-27-2022 End: 11-27-2022 Patient encounter procedure Adrianne Ignacio MD Work Phone: [facility] Comment on above: Lightheadedness (Carmen aly Dx); SOB (shortness of breath); Iron deficiency anemia, unspecified iron deficiency anemia type Start: 11-26-2022 End: 11-26-2022 [facility] Start: 11-23-2022 Telephone encounter Skip Ignacio MD Work Phone: [facility] Comment on above: Results Start: 11-23-2022 End: 11-23-2022 Patient encounter procedure Lalita Mccoy APRN.TRACK WATCHMAN Work Phone: OB/Gynecology Comment on above: Encounter for gyneco logical examination (general) (routine) without abnormal findings (Primary Dx); Screening for cervical cancer; Encounter for screening for human papillomavirus (HPV); Menorrhagia with irregular cycle Start: 11-23-2022 End: 11-23-2022 Patient encounter status Lalita Mccoy BLOCKLAYER.TRACK WATCHMAN Work Phone: OB/Gynecology Start: 11-21-2022 End: 11-21-2022 Patient encounter procedure Cristy Dunbar APRN.BHARAT Work Phone: [facility] Comment on above: Encounter for medica l examination to establish care (Primary Dx); Anemia, unspecified type; Screening for hyperlipidemia Start: 11-21-2022 End: 11-21-2022 Patient encounter status Cristy Dunbar BLOCKLAYER.TRACK WATCHMAN Work Phone: [facility] [place] Start: 10-24-2022 End: 10-24-2022 [facility] Sophia Barrios BLOCKLAYER.TRACK WATCHMAN Work Phone: Neurology Comment on above: Focal epilepsy (HCC) (Primary Dx); Seizure disorder (HCC) Start: 10-11-2022 End: 10-11-2022 Subsequent hospital visit by physician [facility] [place] Work Phone: Radiology Comment on above: Acute pain of right knee [M25.561] Start: 10-11-2022 End: 10-11-2022 Patient encounter procedure Tabatha Almazan BLOCKLAYER.TRACK WATCHMAN Work Phone: [facility] Comment on above: Acute pain of right knee (Primary Dx) Start: 09-21-2022 End: 09-21-2022 Patient encounter procedure Lyric Nova BLOCKLAYER.TRACK WATCHMAN Work Phone: [facility] Comment on above: Sore throat (Primary Dx); Strep throat Start: 08-15-2022 End: 08-15-2022 Patient encounter procedure Flaca Bentley PA-C Work Phone: [facility] Comment on above: Sore throat (Primary Dx) Start: 07-30-2022 End: 07-30-2022 [facility] Start: 07-24-2022 Refill Panda beck MD, PhD Work Phone: Neurology Comment on above: Refill Request Start: 06-17-2022 End: 06-17-2022 Emergency department patient visit [facility] Start: 02-05-2022 End: 02-05-2022 Emergency department patient visit [facility] Start: 01-29-2022 Telephone encounter Panda villalobos MD, PhD Work Phone: Neurology Comment on above: Seizures Start: 11-23-2021 End: 11-23-2021 Emergency department patient visit [facility] Start: 11-21-2021 End: 11-21-2021 Subsequent hospital visit by physician Xr [facility] Work Phone: Radiology Comment on above: Foot pain, right [M7 9.671] Start: 11-21-2021 End: 11-21-2021 Patient encounter procedure Yanet Bacon APRN.TRACK WATCHMAN Work Phone: [facility] Comment on above: Foot pain, right (Pr imary Dx) Start: 08-25-2021 End: 08-25-2021 Emergency department patient visit [facility] Start: 09-08-2020 End: 09-08-2020 Subsequent hospital visit by physician Xr [facility] Work Phone: Radiology Comment on above: Acute pain of right knee [M25.561] Procedures Date Procedure Procedure Detail Performing Clinician Start: 02-24-2025 [facility] ANORECTAL MANOMETRY Shavon Lacey MD Work Phone: Start: 01-13-2025 Esophagogastroduodenoscopy transoral diagnostic Domitila Galicia BLOCKLAYER.TRACK WATCHMAN Work Phone: Start: 01-13-2025 Colonoscopy flx dx w/collj spec when pfrmd Domitila Galicia BLOCKLAYER.TRACK WATCHMAN Work Phone: Start: 01-05-2025 Arthrocentesis aspir&/inj major jt/bursa w/o us Ilana Dickens PA-C Work Phone: Start: 12-17-2024 Iadna streptococcus group a amplified probe tq Kristen Abreu BLOCKLAYER.TRACK WATCHMAN Work Phone: Start: 10-26-2024 Radiologic exam abdomen 1 view Cristy Pod logar BLOCKLAYER.TRACK WATCHMAN Work Phone: Start: 09-10-2024 End: 09-10-2024 SKIN / NAIL BIOPSY René Bran PA-C Work Phone: Start: 08-22-2024 Urnls dip stick/tablet rgnt auto w/o microscopy Lyric Nova BLOCKLAYER.TRACK WATCHMAN Work Phone: Start: 08-05-2024 STREP A MOLECULAR (POC) Ana COATES Work Phone: Start: 07-16-2024 Urnls dip stick/tablet rgnt auto w/o microscopy Jeffy Mathews BLOCKLAYER.CNM Work Phone: Start: 04-29-2024 Radiologic exam chest 2 views Cristy becerra BLOCKLAYER.TRACK WATCHMAN Work Phone: Start: 04-13-2024 Radiologic exam chest 2 views Dhiraj Mark MD Work Phone: Start: 01-17-2024 Mri abdomen w/o & w/contrast material Adrianne Ignacio MD Work Phone: Start: 01-08-2024 Us abdominal real time w/image limited Adrianne Ignacio MD Work Phone: Start: 12-10-2023 Us breast uni real time with image limited Temitope Acuna MD Work Phone: Start: 12-10-2023 Digital breast tomosynthesis unilateral Temitope Acuna MD Work Phone: Start: 10-24-2023 Radex foot complete minimum 3 views Ismael Alonzo BLOCKLAYER.TRACK WATCHMAN Work Phone: Start: 09-22-2023 Laparoscopy Start: 09-22-2023 CT of pelvis with contrast Start: 09-22-2023 Investigation of transfusion reaction Start: 02-24-2023 CT of abdomen and pelvis without contrast Start: 02-12-2023 Sars-cov-2 detection by dna/rna Lyric adan BLOCKLAYER.TRACK WATCHMAN Work Phone: Start: 02-12-2023 STREP A MOLECULAR (POC) Ismael Alonzo BLOCKLAYER.TRACK WATCHMAN Work Phone: Start: 01-30-2023 Urine test visual color cmprsn meths Temitope Acuna MD Work Phone: Start: 11-26-2022 Plain chest X-ray Start: 10-11-2022 Radiologic exam knee complete 4/more views Tabatha Bradley BLOCKLAYER.TRACK WATCHMAN Work Phone: Start: 09-21-2022 STREP A MOLECULAR (POC) Lyric Nova BLOCKLAYER. TRACK WATCHMAN Work Phone: Start: 06-17-2022 Plain chest X-ray Start: 02-05-2022 CT of abdomen and pelvis without contrast Start: 11-23-2021 Plain chest X-ray Start: 11-21-2021 Radex foot complete minimum 3 views Yanet Bacon BLOCKLAYER.TRACK WATCHMAN Work Phone: Start: 08-25-2021 Urine culture Start: 08-25-2021 CT of head without contrast Start: 09-08-2020 Radiologic exam knee complete 4/more views Woodrow Coburn BLOCKLAYER.TRACK WATCHMAN Work Phone: Start: 03-22-2016 End: 11-23-2016 H/O: section History of 3 sections Temitope Acuna MD Work Phone: H/O: hysterectomy S/P hysterectomy SARS-CoV-2 & FLU Antigen (Rapid) SARS-CoV-2 & FLU Antigen (Rapid) Plan of Treatment Date Care Activity Detail Author Start: 05-24-2034 Urine microalbumin profile DTaP,Tdap,Td Vaccine (4 - Td or Tdap) [facility] Start: 11-24-2027 HPV TESTING HPV TESTING [facility] Start: 11-24-2027 PAP TESTING PAP TESTING [facility] Start: 11-24-2027 Screening for malignant neoplasm of cervix [facility] Start: 07-30-2026 Urine microalbumin profile [facility] Start: 01-12-2026 Screening for malignant neoplasm of breast Mammogram Screening [facility] Start: 07-01-2025 Covid-19 Vaccine ( season) Covid-19 Vaccine () [facility] Comment on above: Postponed from 02/23/2024 (Declined at t his time) Start: 05-26-2025 End: 05-26-2025 Admission to same day surgery center 05/26/2025 9:00 AM [facility] [address] [place] [address] Leslie Luong APRN.TRACK WATCHMAN [address] [place] [address] f/u Colorectal Surgery Comment on above: f/u Start: 03-08-2025 End: 06-07-2025 Cortisol [Mass/volume] in Serum or Plasma CORTISOL, SERUM Lab Routine Nausea Expected: 03/08/2025, Expires: 06/07/2025 [facility] Work Phone: Comment on above: Expected: 03/08/2025, Expires: Start: 02-24-2025 End: 02-24-2025 Patient encounter procedure 02/24/2025 11:00 AM EDT Office Visit Colorectal Surgery [address] [address] Leslie Luong APRN.TRACK WATCHMAN [address] [place] [address] Chronic constipation [K59.09] Colorectal Surgery Comment on above: Chronic constipation [K59.09] Start: 02-24-2025 End: 02-24-2025 Nursing evaluation of patient and report 02/24/2025 10:30 AM EDT Nurse Visit Colorectal Surgery [address] [address] Kelvin Chong, funnel coater constipation [K59.09] Colorectal Surgery Comment on above: Chronic constipation [K59.09] Start: 02-22-2025 Influenza vaccination [facility] Start: 02-16-2025 End: 02-16-2025 Patient encounter procedure 02/16/2025 8:30 AM EDT Office Visit [facility] [place] [address] [facility] [address] Shavon Lacey MD [address] [place] [place] [address] 3 Month Follow Up [facility] [place] Comment on above: 3 Month Follow Up Start: 02-12-2025 End: 02-12-2025 Patient encounter procedure 02/12/2025 1:25 PM EDT Office Visit G[facility]enter[facility] [place] [address] [facility] [address] Domitila Galicia APRN.TRACK WATCHMAN [address] [facility] [place] [address] 3 Month Follow Up [facility] [place] Comment on above: 3 Month Follow Up Start: 01-19-2025 End: 04-20-2025 BONNIE BY IFA WITH REFLEX [facility] Comment on above: Expected: 01/19/2025, Expires: Start: 01-19-2025 End: 04-20-2025 Cobalamin (Vitamin B12) [Mass/volume] in Serum or Plasma [facility] Comment on above: Expected: 01/19/2025, Expires: Start: 01-19-2025 End: 04-20-2025 Ferritin [Mass/volume] in Serum or Plasma [facility] Comment on above: Expected: 01/19/2025, Expires: Start: 01-19-2025 End: 04-20-2025 Folate [Mass/volume] in Serum or Plasma [facility] Comment on above: Expected: 01/19/2025, Expires: Start: 01-19-2025 End: 04-20-2025 Gastrin [Mass/volume] in Serum or Plasma [facility] Work Phone: Comment on above: Expected: 01/19/2025, Expires: Start: 01-19-2025 End: 04-20-2025 INTRINSIC FACTOR BLOCKING AB [facility] Comment on above: Expected: 01/19/2025, Expires: Start: 01-19-2025 End: 04-20-2025 Iron and Iron binding capacity panel - Serum or Plasma [facility] Comment on above: Expected: 01/19/2025, Expires: Start: 01-19-2025 End: 04-20-2025 Parietal cell Ab [Presence] in Serum [facility] Comment on above: Expected: 01/19/2025, Expires: Start: 01-13-2025 End: 01-13-2025 Patient encounter procedure 01/13/2025 8:45 AM EDT Appointment Ambulatory Surgery [address] [facility] [place] [id number] Coleen Maria MD [address] [place] [address] Nausea [R11.0] Ambulatory Surgery Comment on above: Nausea [R11.0] Start: 01-12-2025 End: 01-12-2025 Patient encounter procedure 01/12/2025 3:40 PM EDT Appointment Mammogram [address] [place] [address] Mammogram Start: 01-09-2025 End: 01-09-2025 ambulatory 01/09/2025 8:45 AM EDT Results Only [place] [facility] Draw Station [address] [place] [address] [place] [facility] Draw Station Start: 01-08-2025 End: 01-08-2025 Patient encounter procedure 01/08/2025 3:15 PM EDT Office Visit OB/Gynecology [address] [place] [id number] Preet Valente APRN.TRACK WATCHMAN [address] [place] [address] Annual OB/Gynecology Comment on above: Annual Start: 01-06-2025 End: 01-06-2025 ambulatory 01/06/2025 7:00 AM EDT Results Only [place] Gambino [facility] Laboratory [address] [place] [address] [place] Maki [facility] Laboratory Start: 01-05-2025 End: 01-05-2025 Patient encounter procedure Radiology Comment on above: R knee Right knee pain Start: 01-04-2025 End: 04-05-2025 CBC panel - Blood by Automated count COMPLETE BLOOD COUNT Lab Routine Focal epilepsy (HCC) Expected: 01/04/2025, Expires: 04/05/2025 [facility] Work Phone: Comment on above: Expected: 01/04/2025, Expires: Start: 01-04-2025 End: 04-05-2025 Comprehensive metabolic 2000 panel - Serum or Plasma COMPREHENSIVE METABOLIC PANEL Lab Routine Focal epilepsy (HCC) Expected: 01/04/2025, Expires: 04/05/2025 [facility] Comment on above: Expected: 01/04/2025, Expires: Start: 01-04-2025 End: 04-05-2025 LACOSAMIDE LACOSAMIDE Lab Routine Focal epilepsy ([facility]) Expected: 01/04/2025, Expires: 04/05/2025 [facility] Comment on above: Expected: 01/04/2025, Expires: Start: 01-04-2025 End: 04-05-2025 levETIRAcetam [Mass/volume] in Serum or Plasma LEVETIRACETAM Lab Routine Focal epilepsy ([facility]) Expected: 01/04/2025, Expires: 04/05/2025 [facility] Comment on above: Expected: 01/04/2025, Expires: Start: 01-04-2025 End: 01-04-2025 ambulatory 01/04/2025 10:00 AM EDT [facility] Neu[facility] [address] [id number] Domingo Self PA-C [facility] [address] [place] [address] f/u epilepsy Neurology Comment on above: f/u epilepsy Start: 12-30-2024 End: 12-30-2024 Anesthesia consultation 12/30/2024 11:59 PM EDT Anesthesia Event Ambulatory Surgery [address] [facility] [place] [id number] [facility] [address] [place] [address] Ambulatory Surgery Start: 12-21-2024 Influenza vaccination Influenza Vaccine (#1) [facility] Comment on above: Postponed from 02/23/2024 (Declined at t his time) Start: 11-06-2024 End: 11-06-2024 Patient encounter procedure 11/06/2024 2:15 PM EDT Office Visit Gastroenterology [place] [address] [facility] [place] [address] Domitila Galicia, BLOCKLAYER.TRACK WATCHMAN [address] [place] [address] Dx: Nausea [R11.0]; Generalized abdominal pain [R10.84] [facility] [place] Comment on above: Dx: Nausea [R11.0]; Generalized abdomina l pain [R10.84] Start: 11-05-2024 Screening for malignant neoplasm of breast Mammogram Screening [facility] Start: 10-26-2024 End: 01-25-2025 Comprehensive metabolic 2000 panel - Serum or Plasma [facility] Work Phone: Comment on above: Expected: 10/26/2024, Expires: Start: 10-26-2024 End: 01-25-2025 Lipase [Enzymatic activity/volume] in Serum or Plasma [facility] Comment on above: Expected: 10/26/2024, Expires: Start: 09-10-2024 End: 09-10-2024 Patient encounter procedure 09/10/2024 3:40 PM EDT Office Visit Dermatology [address] [place] [address] René Bran PA-C [address] [place] [address] rash follow up Dermatology Comment on above: rash follow up Start: 08-26-2024 End: 08-26-2024 Patient encounter procedure 08/26/2024 11:15 AM EST Office Visit Neurology [address] [place] [address] Martine Marinelli APRN.TRACK WATCHMAN [address] [place] [address] Follow up Neurology Comment on above: Follow up Start: 08-04-2024 End: 08-04-2024 Patient encounter procedure 08/04/2024 7:15 AM EST Office Visit Dermatology [address] [place] [address] Suzanne Chen APRN.TRACK WATCHMAN [address] [place] [address] Psoriasis of scalp [L40.9] Dermatology Comment on above: Psoriasis of scalp [L40.9] Start: 08-03-2024 End: 08-03-2024 Patient encounter procedure 08/03/2024 2:00 PM EST Office Visit Dermatology [address] [place] [address] Suzanne Chen APRN.TRACK WATCHMAN [address] [place] [address] Psoriasis of scalp [L40.9] Dermatology Comment on above: Psoriasis of scalp [L40.9] Start: 07-01-2024 End: 07-01-2024 Patient encounter procedure 07/01/2024 2:00 PM EST Office Visit [facility] [place] [address] [place] [address] PodCristy camarillo APRN.TRACK WATCHMAN [address] [place] [address] Physical [facility] [place] Comment on above: Physical Start: 06-29-2024 End: 06-29-2024 Patient encounter procedure 06/29/2024 3:10 PM EST Office Visit OB/Gynecology [address] [place] [address] Henrique Cuevas MD [address] [place] [address] Rash on thigh/pubic bone OB/Gynecology Comment on above: Rash on thigh/pubic bone Start: 03-04-2024 End: 03-04-2024 Patient encounter procedure 03/04/2024 2:20 PM EDT Office Visit [facility] [place] [address] [facility] [place] [address] Cristy Dunbar APRN.TRACK WATCHMAN [address] [facility] [address] skin tag removal f/u [facility] [place] Comment on above: skin tag removal f/u Start: 02-27-2024 End: 02-27-2024 Patient encounter procedure 02/27/2024 2:00 PM EDT Office Visit Orthopaedics [address] [place] [address] Dennise Gonzalez DO [address] [place] [address] Follow up after MRI Orthopaedics Comment on above: Follow up after MRI Start: 02-26-2024 End: 02-26-2024 Patient encounter procedure 02/26/2024 12:20 PM EDT Office Visit [facility] [place] [address] [facility] [place] [address] Adrianne Ignacio MD [address] [place] [address] Physical [facility] [place] Comment on above: Physical Start: 02-23-2024 Covid-19 Vaccine ( season) Covid-19 Vaccine ( season) [facility] Start: 02-23-2024 Covid-19 Vaccine ( season) Covid-19 Vaccine ( season) [facility] Start: 02-23-2024 Influenza vaccination [facility] Start: 02-20-2024 End: 02-20-2024 Patient encounter procedure 02/20/2024 2:15 PM EDT Office Visit Gastroenterology [place] [address] [facility] [id number] Michelle Henry PA-C [address] [facility] [place] [address] Epigastric pain [R10.13]; Nausea [R11.0] [facility] [place] Comment on above: Epigastric pain [R10.13]; Nausea [R11.0] Start: 02-12-2024 End: 02-12-2024 ambulatory 02/12/2024 9:15 AM EDT Results Only [place] [facility] Draw Station [address] [facility] [place] [address] [facility] Draw Station Start: 02-07-2024 End: 02-07-2024 Patient encounter procedure 02/07/2024 1:30 PM EDT Appointment [facility] [address] [place] [address] Acute pain of right knee [M25.561]; Chondromalacia of right patella [M22.41]; Tear of medial meniscus of right knee, current, unspecified tear type, initial encounter [S83.241A] [facility] Comment on above: Acute pain of right knee [M25.561]; Andrea dromalacia of right patella [M22.41]; Tear of medial meniscus of right knee, current, unspecified tear type, initial encounter [S83.241A] Start: 02-07-2024 End: 02-07-2024 Follow-up encounter Neurology Comment on above: VV follow up for seizures Start: 01-23-2024 End: 01-23-2024 Patient encounter procedure 01/23/2024 2:00 PM EDT Office Visit Orthopaedics [address] [place] [address] Dennise Gonzalez DO [address] [place] [address] Follow up post physical therapy Orthopaedics Comment on above: Follow up post physical therapy Start: 01-21-2024 End: 01-21-2024 ambulatory 01/21/2024 2:30 PM EDT Results Only [place] [facility] Draw Station [address] [facility] [place] [address] [facility] Draw Station Start: 01-21-2024 End: 04-21-2024 LACOSAMIDE [facility] Work Phone: Comment on above: Expected: 01/21/2024, Expires: Start: 01-21-2024 End: 04-21-2024 levETIRAcetam [Mass/volume] in Serum or Plasma [facility] Comment on above: Expected: 01/21/2024, Expires: Start: 01-20-2024 End: 04-20-2024 LACOSAMIDE LACOSAMIDE Lab Routine Focal epilepsy (HCC) Expected: 01/20/2024, Expires: 04/20/2024 [facility] Comment on above: Expected: 01/20/2024, Expires: Start: 01-20-2024 End: 04-20-2024 levETIRAcetam [Mass/volume] in Serum or Plasma LEVETIRACETAM Lab Routine Focal epilepsy (HCC) Expected: 01/20/2024, Expires: 04/20/2024 [facility] Work Phone: Comment on above: Expected: 01/20/2024, Expires: Start: 01-17-2024 End: 01-17-2024 Patient encounter procedure 01/17/2024 12:40 PM EDT Appointment Radiology [address] [place] [address] Liver lesion [K76.9] Radiology Comment on above: Liver lesion [K76.9] Start: 01-13-2024 End: 01-13-2024 Patient encounter procedure 01/13/2024 3:00 PM EDT Appointment Radiology [address], [place] [id number] Liver lesion [K76.9] Radiology Comment on above: Liver lesion [K76.9] Start: 01-08-2024 End: 01-08-2024 Patient encounter procedure Radiology Comment on above: Epigastric pain [R10.13] Skin tag removal, ne ck and R. axilla Start: 12-25-2023 End: 03-25-2024 Comprehensive metabolic 2000 panel - Serum or Plasma [facility] Comment on above: Expected: 12/25/2023, Expires: Start: 12-25-2023 End: 03-25-2024 Lipase [Enzymatic activity/volume] in Serum or Plasma [facility] Comment on above: Expected: 12/25/2023, Expires: 4 Start: 12-10-2023 End: 12-10-2023 Patient encounter procedure Mammogram Comment on above: Comp- RT CB Abnormal screening m ammogram [R92.8] Start: 11-24-2023 Screening for malignant neoplasm of cervix Cervical Cancer Screening [facility] Start: 11-06-2023 End: 11-06-2023 Patient encounter procedure OB/Gynecology Comment on above: 3 wk Post op Start: 10-16-2023 End: 01-15-2024 Ferritin [Mass/volume] in Serum or Plasma [facility] Work Phone: Comment on above: Expected: 10/16/2023, Expires: Start: 10-16-2023 End: 01-15-2024 Iron and Iron binding capacity panel - Serum or Plasma [facility] Comment on above: Expected: 10/16/2023, Expires: Start: 09-24-2023 Patient discharge [facility] Start: 09-23-2023 Introduction of urinary catheter [facility] Start: 09-23-2023 Admission procedure [facility] Start: 09-23-2023 [facility] Start: 09-23-2023 Care planning and problem solving actions [facility] Start: 09-23-2023 Following clinical pathway protocol [facility] Start: 09-23-2023 Patient referral to dietitian [facility] Start: 09-22-2023 Ambulation therapy management [facility] Start: 09-22-2023 Continuous pulse oximetry [facility] Start: 09-22-2023 Elevation of head of bed [facility] Start: 09-22-2023 Introduction of urinary catheter [facility] Start: 09-22-2023 Measuring intake and output [facility] Start: 09-22-2023 Notification of physician [facility] Start: 09-22-2023 Oxygen therapy [facility] Start: 09-22-2023 Patient education [facility] Start: 09-22-2023 Procedures relating to eating and drinking [facility] Start: 09-22-2023 Taking patient vital signs [facility] Start: 09-22-2023 Wound care [facility] Start: 09-22-2023 [facility] Start: 09-22-2023 Laparoscopy Diagnostic Laparoscopy (Not Applicable) [facility] Start: 09-22-2023 Hospital admission, emergency, from emergency room, medical nature [facility] Start: 09-22-2023 CT of pelvis with contrast Pelvis WITH IV Contrast [facility] Start: 09-22-2023 CT Pelvis W contrast IV [facility] Start: 09-22-2023 Anaerobic Culture Anaerobic Culture [facility] Start: 09-22-2023 Microbial culture, routine Wound Culture [facility] Start: 09-02-2023 End: 12-02-2023 CONFIRM BLOOD TYPE [facility] Work Phone: Comment on above: Expected: 09/02/2023, Expires: 4 Start: 09-02-2023 End: 12-02-2023 TYPE AND SCREEN,30 DAY [facility] Work Phone: Comment on above: Expected: 09/02/2023, Expires: 4 Start: 2023 Screening for malignant neoplasm of breast Mammogram Screening [facility] Start: 02-24-2023 [facility] Start: 02-24-2023 Bacteria identified in Urine by Culture Urine Culture [facility] Start: 02-22-2023 Covid-19 Vaccine ( season) Covid-19 Vaccine () [facility] Start: 02-22-2023 Influenza vaccination [facility] Start: 01-28-2023 End: 03-30-2023 Ferritin [Mass/volume] in Serum or Plasma [facility] Work Phone: Comment on above: Expected: 01/28/2023, Expires: 3 Start: 01-28-2023 End: 03-30-2023 Iron and Iron binding capacity panel - Serum or Plasma [facility] Work Phone: Comment on above: Expected: 01/28/2023, Expires: 3 Start: 01-28-2023 End: 03-30-2023 Thyrotropin [Units/volume] in Serum or Plasma [facility] Work Phone: Comment on above: Expected: 01/28/2023, Expires: 3 Start: 12-23-2022 End: 02-22-2023 CBC panel - Blood by Automated count CBC Lab Routine Anemia, unspecified type Expected: 12/23/2022, Expires: 02/22/2023 [facility] Work Phone: Comment on above: Expected: 12/23/2022, Expires: 3 Start: 12-23-2022 End: 02-22-2023 Ferritin [Mass/volume] in Serum or Plasma FERRITIN BLD Lab Routine Anemia, unspecified type Expected: 12/23/2022, Expires: 02/22/2023 [facility] Work Phone: Comment on above: Expected: 12/23/2022, Expires: 3 Start: 12-23-2022 End: 02-22-2023 Iron and Iron binding capacity panel - Serum or Plasma IRON + TIBC Lab Routine Anemia, unspecified type Expected: 12/23/2022, Expires: 02/22/2023 [facility] Work Phone: Comment on above: Expected: 12/23/2022, Expires: 3 Start: 11-26-2022 [facility] Start: 11-23-2022 End: 11-24-2023 PELVIC US WHI PELVIC US WHI Anc Imaging Routine Menorrhagia with irregular cycle Expected: 11/23/2022, Expires: 11/24/2023 [facility] Work Phone: Comment on above: Expected: 11/23/2022, Expires: 4 Start: 11-21-2022 End: 01-21-2023 CBC W Auto Differential panel - Blood CBC + DIFF Lab Routine Anemia, unspecified type Expected: 11/21/2022, Expires: 01/21/2023 [facility] Work Phone: Comment on above: Expected: 11/21/2022, Expires: 3 Start: 11-21-2022 End: 01-21-2023 Comprehensive metabolic 2000 panel - Serum or Plasma COMP METABOLIC PANEL Lab Routine Encounter for medical examination to establish care Expected: 11/21/2022, Expires: 01/21/2023 [facility] Work Phone: Comment on above: Expected: 11/21/2022, Expires: Start: 11-21-2022 End: 01-21-2023 Ferritin [Mass/volume] in Serum or Plasma FERRITIN BLD Lab Routine Anemia, unspecified type Expected: 11/21/2022, Expires: 01/21/2023 [facility] Work Phone: Comment on above: Expected: 11/21/2022, Expires: 3 Start: 11-21-2022 End: 01-21-2023 Iron and Iron binding capacity panel - Serum or Plasma IRON + TIBC Lab Routine Anemia, unspecified type Expected: 11/21/2022, Expires: 01/21/2023 [facility] Work Phone: Comment on above: Expected: 11/21/2022, Expires: 3 Start: 11-21-2022 End: 01-21-2023 Lipid 1996 panel - Serum or Plasma LIPID PANEL BASIC Lab Routine Screening for hyperlipidemia Expected: 11/21/2022, Expires: 01/21/2023 [facility] Work Phone: Comment on above: Expected: 11/21/2022, Expires: 3 Start: 08-15-2022 End: 08-29-2022 Influenza virus A and B RNA and SARS-CoV-2 (COVID-19) N gene panel - Respiratory specimen by VINNIE with probe detection [facility] Work Phone: Comment on above: Expected: 08/15/2022, Expires: Start: 02-22-2022 Influenza vaccination [facility] Start: 02-05-2022 [facility] Work Phone: Start: 11-23-2021 [facility] Work Phone: Start: 03-29-2021 HPV TESTING HPV TESTING [facility] Start: 03-29-2021 PAP TESTING PAP TESTING [facility] Start: 2010 HPV Vaccine (1 - 3-dose SCDM series) HPV Vaccine (1 - 3-dose SCDM series) [facility] Start: 2002 Hepatitis B Vaccine (1 of 3 - 19+ 3-dose series) Hepatitis B Vaccine (1 of 3 - 19+ 3-dose series) [facility] Start: 2001 HEPATITIS C SCREENING HEPATITIS C SCREENING [facility] Start: 2001 Hepatitis C screening Hepatitis C Screening [facility] Start: 1988 COVID-19 VACCINE (#1) COVID-19 VACCINE (#1) [facility] Start: 02-12-1984 COVID-19 VACCINE (#1) COVID-19 VACCINE (#1) [facility] Start: 1983 HEPATITIS B (1 of 3 - 3-dose series) HEPATITIS B (1 of 3 - 3-dose series) [facility] Start: 1983 Hepatitis B Vaccine (1 of 3 - 3-dose series) Hepatitis B Vaccine (1 of 3 - 3-dose series) [facility] End: 02-16-2026 ADULT [place] [employer] ADULT [place] [employer]OM[employer] Endoscopy Routine Chronic constipation Bloating 1 Occurrences starting 02/16/2025 until 02/16/2026 [facility] Work Phone: Comment on above: 1 Occurrences starting 02/16/2025 until 02/16/2026 Bacteria identified in Unspecified specimen by Anaerobe culture [facility] Bacteria identified in Urine by Culture Urine Culture [facility] Work Phone: Bacteria identified in Urine by Culture BACTERIAL CULTURE, URINE Microbiology Routine Screening for genitourinary condition Ordered: 08/22/2024 [facility] Work Phone: Comment on above: Ordered: 08/22/2024 COLPOSCOPY COLPOSCOPY Proce dures Routine LGSIL on Pap smear of cervix Ordered: 11/30/2022 [facility] Work Phone: Comment on above: Ordered: 11/30/2022 End: 01-07-2026 DBT Breast - bilateral screening LULU SCREENING W ELLIE Radiology Routine Encounter for screening mammogram for breast cancer 1 Occurrences starting 12/08/2024 until 01/07/2026 [facility] Work Phone: Comment on above: 1 Occurrences starting 12/08/2024 until 01/07/2026 End: 02-07-2026 DBT Breast - bilateral screening LULU SCREENING W ELLIE Radiology Routine Encounter for screening mammogram for breast cancer 1 Occurrences starting 01/08/2025 until 02/07/2026 [facility] Work Phone: Comment on above: 1 Occurrences starting 01/08/2025 until 02/07/2026 DBT Breast - bilater al screening LULU SCREENING W ELLIE Radiology Routine Encounter for screening mammogram for breast cancer 01/12/2025 3:58 PM EDT [facility] Work Phone: End: 11-06-2025 EGD DIAGNOSTIC EGD DIAGNOSTIC Endoscopy Routine Nausea Epigastric pain Other constipation 1 Occurrences starting 11/06/2024 until 11/06/2025 [facility] Work Phone: Comment on above: 1 Occurrences starting 11/06/2024 until 11/06/2025 End: 01-04-2026 EPIL AMBULATORY EEG EPIL AMBULATORY EEG NEUROLOGY Routine Focal epilepsy (HCC) 1 Occurrences starting 01/04/2025 until 01/04/2026 [facility] Comment on above: 1 Occurrences starting 01/04/2025 until 01/04/2026 End: 01-04-2026 EPIL EEG ROUTINE EPIL EEG ROUTINE NEUROLOGY Routine Focal epilepsy (HCC) 1 Occurrences starting 01/04/2025 until 01/04/2026 [facility] Comment on above: 1 Occurrences starting 01/04/2025 until 01/04/2026 End: 11-06-2025 Flexible sigmoidoscopy study COLONOSCOPY DIAGNOSTIC Endoscopy Routine Nausea Epigastric pain Other constipation 1 Occurrences starting 11/06/2024 until 11/06/2025 [facility] Comment on above: 1 Occurrences starting 11/06/2024 until 11/06/2025 Hemoglobin.gastroint es tinal.lower [Presence] in Stool by Immunoassay FECAL OCCULT BLOOD TEST Lab Routine Anemia, unspecified type Ordered: 11/23/2022 [facility] Work Phone: Comment on above: Ordered: 11/23/2022 Hemoglobin.gastroint es tinal.lower [Presence] in Stool by Immunoassay FECAL OCCULT BLOOD TEST Lab Routine Iron deficiency anemia, unspecified iron deficiency anemia type Lightheadedness SOB (shortness of breath) Ordered: 11/27/2022 [facility] Work Phone: Comment on above: Ordered: 11/27/2022 End: 12-11-2024 MG Breast - right Diagnostic for implant LULU DIAGNOSTIC RIGHT Radiology Routine Abnormal screening mammogram 1 Occurrences starting 11/12/2023 until 12/11/2024 [facility] Work Phone: Comment on above: 1 Occurrences starting 11/12/2023 until 12/11/2024 MG Breast Screening LULU SCREENIN G Radiology Routine Encounter for screening mammogram for malignant neoplasm of breast Family history of malignant neoplasm of breast 11/06/2023 11:27 AM EDT [facility] Work Phone: End: 02-21-2025 MR Knee - right WO contrast MRI KNEE WO IVCON RIGHT Radiology Routine Acute pain of right knee Chondromalacia of right patella Tear of medial meniscus of right knee, current, unspecified tear type, initial encounter 1 Occurrences starting 01/23/2024 until 02/21/2025 [facility] Work Phone: Comment on above: 1 Occurrences starting 01/23/2024 until 02/21/2025 MR Knee - right WO contrast MRI KNEE WO IVCON RIGHT Radiology Routine Acute pain of right knee Chondromalacia of right patella Tear of medial meniscus of right knee, current, unspecified tear type, initial encounter 02/07/2024 1:52 PM EDT [facility] Work Phone: End: 02-06-2025 MR Liver WO and W contrast IV MRI LIVER WO/W IVCON Radiology ESTEFANY Liver lesion 1 Occurrences starting 01/08/2024 until 02/06/2025 [facility] Work Phone: Comment on above: 1 Occurrences starting 01/08/2024 until 02/06/2025 End: 07-02-2024 Mra head w/o & w/contrast material MRV BRAIN WO/W IVCON Radiology Routine Intractable migraine with aura without status migrainosus Pulsatile tinnitus, right ear 1 Occurrences starting 06/03/2023 until 07/02/2024 [facility] Work Phone: Comment on above: 1 Occurrences starting 06/03/2023 until 07/02/2024 End: 07-02-2024 Mra head w/o contrst material MRA BRAIN WO IVCON Radiology Routine Paresthesia of skin 1 Occurrences starting 06/03/2023 until 07/02/2024 [facility] Work Phone: Comment on above: 1 Occurrences starting 06/03/2023 until 07/02/2024 End: 04-07-2026 NM Biliary ducts and Gallbladder Views for patency of biliary structures and ejection fraction W sincalide and W radionuclide IV NM HEPATOBILIARY W EF AND/OR RX Radiology Routine Nausea 1 Occurrences starting 03/08/2025 until 04/07/2026 [facility] Comment on above: 1 Occurrences starting 03/08/2025 until 04/07/2026 End: 03-12-2026 NM Stomach Views for gastric emptying solid phase W radionuclide PO NM GASTRIC EMPTYING SOLID Radiology Routine Nausea and vomiting, unspecified vomiting type Nausea Dyspepsia 1 Occurrences starting 02/10/2025 until 03/12/2026 [facility] Work Phone: Comment on above: 1 Occurrences starting 02/10/2025 until 03/12/2026 PAP TEST PAP TEST Lab Rou eladio Screening for cervical cancer Encounter for screening for human papillomavirus (HPV) 11/23/2022 2:11 PM EDT [facility] Work Phone: Patient Education [facility] Work Phone: Patient referral [facility] Work Phone: Removal sk tgs civil engineering manager fibrq tags any area ea 10 REMOVAL OF ADDED SKIN TAGS Procedures Routine Skin tags, multiple acquired S/P cryotherapy of skin lesion Ordered: 01/08/2024 [facility] Comment on above: Ordered: 01/08/2024 Removal skn tags civil engineering manager fibrq tags any area upw/15 REMOVAL OF SKIN TAGS 1-15 Procedures Routine Skin tags, multiple acquired S/P cryotherapy of skin lesion Ordered: 01/08/2024 [facility] Comment on above: Ordered: 01/08/2024 STREP A MOLECULAR (POC) STREP A MOLECULAR (POC) Microbiology Routine Sore throat Ordered: 08/15/2022 [facility] Work Phone: Comment on above: Ordered: 08/15/2022 SURGICAL PATHOLOGY SURGICAL PATH OLOGY Lab Routine Abnormal uterine bleeding (AUB) 01/30/2023 10:13 AM EDT [facility] Work Phone: Tissue Pathology biopsy report SURGICAL PATHOLOGY Lab Routine Rash and nonspecific skin eruption Release Upon Ordering for 1 Occurrences starting 09/10/2024 [facility] Work Phone: Comment on above: Release Upon Ordering for 1 Occurrences starting 09/10/2024 Tissue Pathology biopsy report [facility] Work Phone: Comment on above: Release Upon Ordering for 1 Occurrences starting 01/13/2025, 1 completed End: 01-23-2025 US Abdomen RUQ US ABD RIGHT UPPER QUADRANT Radiology ESTEFANY Epigastric pain Nausea 1 Occurrences starting 12/25/2023 until 01/23/2025 [facility] Work Phone: Comment on above: 1 Occurrences starting 12/25/2023 until 01/23/2025 End: 12-11-2024 US Breast - right limited US BREAST LTD RIGHT Radiology Routine Abnormal screening mammogram 1 Occurrences starting 11/12/2023 until 12/11/2024 [facility] Comment on above: 1 Occurrences starting 11/12/2023 until 12/11/2024 End: 03-18-2026 XR Abdomen Supine and Upright XR ABDOMEN 2V ROUTINE SUPINE W UPRIGHT/DECUB/CTL Radiology Routine Chronic constipation Epigastric pain Bloating 1 Occurrences starting 02/16/2025 until 03/18/2026 [facility] Comment on above: 1 Occurrences starting 02/16/2025 until 03/18/2026 XR Abdomen Supine an d Upright XR ABDOMEN 2V ROUTINE SUPINE W UPRIGHT/DECUB/CTL Radiology Routine Chronic constipation Epigastric pain Bloating 02/16/2025 10:49 AM EDT [facility] End: 03-12-2026 XR Cervical spine 2 or 3 views and (Views W flexion and W extension) XR CERVICAL 2V FLEX/EXT Radiology Routine Lordosis Postural kyphosis, unspecified spinal region 1 Occurrences starting 02/10/2025 until 03/12/2026 [facility] Comment on above: 1 Occurrences starting 02/10/2025 until 03/12/2026 XR Cervical spine 2 or 3 views and (Views W flexion and W extension) XR CERVICAL 2V FLEX/EXT Radiology Routine Lordosis Postural kyphosis, unspecified spinal region 02/10/2025 10:34 AM EDT [facility] XR Knee - right 4 Views XR KNEE GENERAL 4V AP BOTH/PA BOTH/LAT/MERC RIGHT Radiology Routine Right knee pain, unspecified chronicity 01/05/2025 3:30 PM EDT [facility] Work Phone: End: 03-12-2026 XR Lumbar spine AP and Lateral XR LUMBAR LIMITED 2V AP/LAT Radiology Routine Lordosis Postural kyphosis, unspecified spinal region 1 Occurrences starting 02/10/2025 until 03/12/2026 [facility] Comment on above: 1 Occurrences starting 02/10/2025 until 03/12/2026 XR Lumbar spine AP a nd Lateral XR LUMBAR LIMITED 2V AP/LAT Radiology Routine Lordosis Postural kyphosis, unspecified spinal region 02/10/2025 10:34 AM EDT [facility] End: 03-12-2026 XR Thoracic spine AP and Lateral XR THORACIC LIMITED 2V AP/LAT Radiology Routine Lordosis Postural kyphosis, unspecified spinal region 1 Occurrences starting 02/10/2025 until 03/12/2026 [facility] Comment on above: 1 Occurrences starting 02/10/2025 until 03/12/2026 XR Thoracic spine AP and Lateral XR THORACIC LIMITED 2V AP/LAT Radiology Routine Lordosis Postural kyphosis, unspecified spinal region 02/10/2025 10:34 AM EDT [facility] [place] [facility] Immunizations Immunization Date Immunization Notes Care Provider Seb liuyesika 05-24-2024 tetanus toxoid, redu lisandro diphtheria toxoid, and acellular pertussis vaccine, adsorbed Ana Feliciano PA Work Phone: [facility] 10-15-2016 measles, mumps and rubella virus vaccine [facility] 07-30-2016 tetanus toxoid, redu lisandro diphtheria toxoid, and acellular pertussis vaccine, adsorbed [facility] 09-30-2007 tetanus toxoid, redu lisandro diphtheria toxoid, and acellular pertussis vaccine, adsorbed Yanet Bacon APRN.CNP Work Phone: [facility] Payers Date Payer Category Payer Self-pay [id number] 2022 Medicaid [id number] 2020 Medicaid [place] [employer] [id number] 2020-Present [phone] [address] [place] [address] Medicaid [id number] 2017 Medicaid [id number] 2016 Unknown [id number] Unknown [id number] Unknown [id number] Unknown [id number] Unknown [id number] Social History Date Type Detail Facility [facility] Work Phone: Start: 08-25-2021 End: 09-23-2023 Tobacco smoking status ILIS Unknown if ever smoked [facility] Start: 1985 Sex Assigned At Female [facility] Work Phone: Start: 08-27-2011 End: 07-30-2022 Tobacco smoking status NHIS Never smoked tobacco [facility] Start: 11-21-2021 End: 02-10-2025 Alcohol intake Current drinker of alcohol (finding) [facility] Start: 10-11-2020 History SDOH Alcohol Frequency 98 [facility] Start: 04-16-2019 History SDOH Alcohol Comment Rarely [facility] Start: 10-11-2020 History SDOH Physica l Activity DPW 7 [facility] Start: 10-11-2020 History SDOH Physica l Activity MPS 4 [facility] Start: 10-11-2020 History SDOH Stress 2 [facility] Start: 10-11-2020 History SDOH Housing Unable to Pay 3 [facility] Start: 10-11-2020 History SDOH Housing Places Lived 1 [facility] Start: 08-09-2020 End: 11-21-2021 Exposure to SARS-CoV-2 (event) Not sure [facility] Work Phone: Start: 08-27-2011 End: 07-30-2022 Tobacco use and exposure Smokeless tobacco non-user [facility] Start: 07-30-2022 Alcohol Comment occasional [facility] Start: 10-11-2020 End: 05-20-2023 History of Social function [facility] Start: 10-11-2020 End: 05-20-2023 Social connection and isolation panel [facility] Start: 05-25-2012 In a typical week, how many times do you talk on the telephone with family, friends, or neighbors? Patient refused [facility] Are you now , , , , never or living with a partner? Refused [facility] Do you feel stress - tense, restless, nervous, or anxious, or unable to sleep at night because your mind is troubled all the time - these days [OSQ] Only a little [facility] (I/We) worried whether (my/our) food would run out before (I/we) got money to buy more. DK or Refused [facility] Start: 08-27-2018 Gender identity Identifies as female gender (finding) [facility] Work Phone: Has the [employer], gas, oil, or water [employer] threatened to shut off services in your home in past 12Mo No [facility] Are you now , , , , never or living with a partner? Living with partner [facility] How often to you hav e a drink containing alcohol? 4 or more times a week [facility] How many standard drinks containing alcohol do you have on a typical day? 1 or 2 [facility] How often do you hav e 6 or more drinks on 1 occasion? Less than monthly [facility] Do you feel stress - tense, restless, nervous, or anxious, or unable to sleep at night because your mind is troubled all the time - these days [OSQ] To some extent [facility] (I/We) worried whether (my/our) food would run out before (I/we) got money to buy more. Never true [facility] NEGATED: Highlighted row [facility] Goals Date Patient Goal Desired Activity /State Functional Status Date Assessment Result Facility 09-24-2023 Functional status [facility] Work Phone: 03-08-2014 Are you deaf, or do you have serious difficulty hearing No 03/08/2014 6:37 PM EDT Teresa Holman LPN No [facility] 03-08-2014 Are you blind, or do you have serious difficulty seeing, even when wearing glasses No 03/08/2014 6:37 PM EDT Teresa Holman LPN No [facility] 03-08-2014 Do you have serious difficulty walking or climbing stairs No 03/08/2014 6:37 PM EDT Teresa Holman LPN No [facility] 03-08-2014 Do you have difficul ty dressing or bathing No 03/08/2014 6:37 PM EDT Teresa Holman LPN No [facility] 03-08-2014 Because of a physica l, mental, or emotional condition, do you have difficulty doing errands alone such as visiting a physician's office or shopping No 03/08/2014 6:37 PM EDT Teresa Holman LPN No [facility] Mental Status Date Assessment Result Facility 09-24-2023 Cognitive function Voice/Name [facility] Work Phone: 11-26-2022 Cognitive function Level Of Cons ciousness Awake;Alert;Appropriate;Fol lows Commands;Responds to vocal stimuli [facility] Work Phone: 11-23-2021 Cognitive function Voice/Name [facility] Work Phone: 08-25-2021 Cognitive function Voice/Name [facility] Work Phone: 03-08-2014 Because of a physica l, mental, or emotional condition, do you have serious difficulty concentrating, remembering, or making decisions No 03/08/2014 6:37 PM EDT Teresa Holman LPN No [facility] Clinical Notes 09-08-2020 to 03-08-2025 Telephone Encounter - Shavon Lacey MD - 03/08/2025 3:43 PM EDTTelephone Encounter - Shavon Lacey MD - 03/08/2025 3:43 PM EDTPatient InstructionsPatient Instructions Note Date & Type Note Facility 03-08-2025 Telephone encounter Note See above [facility] 03-08-2025 Miscellaneous Notes See above documented in this encounter [facility] 02-24-2025 Leslie Hanson, [email or web address].TRACK WATCHMAN - 02/24/2025 11:20 AM EDT Images from the original note were not included. 1. Stay hydrated by drinking at least 8 glasses of water per day. This will help to keep your bowel habits more regular. 2. Continue taking your bowel regimen as prescribed. 3. You may take a daily stool softener (Miralax). Keeping your stools soft will improve your ability to evacuate more regularly. Start with 17g (1 capful) daily and adjust every 2-3 days as need to achieve formed, soft stool. If [id number]-[id number] stool softeners do not work, then seek consultation with your primary care physician or a service operations manager to discuss prescription stool softeners or motility medications. 4. Enemas or suppositories may help to stimulate your bowels to evacuate. If this is successful then it can be repeated daily. 5. Pelvic floor physical therapy. The goal of this therapy is to retrain the pelvic floor muscles to more appropriately relax and therefore improve evacuation of stool. Physical therapy is the most effective way to get the pelvic floor muscles moving and coordinating correctly. Pelvic floor PT was ordered today, reviewed scheduling process with patient and how to find local therapists. 6. There are no surgical options to improve pelvic muscle coordination. 7. Pelvic floor dysfunction handout reviewed and provided to patient. 8. Patient was instructed to follow up virtual visit in 3 months after completion of physical therapy and adherence to suggested bowel regimen. 9. Follow up with your referring physician. A copy of your test results will be sent to this physician. Pelvic Floor Dysfunction / Obstructive Defecation [facility] Pelvic Floor Testing and Treatment Center At baseline, the pelvic floor muscles work to maintain continence (both urinary and bowel). During intentional evacuation of urine and stool, the pelvic floor muscles relax to allow passage of urine and stool. The pelvic floor muscles can also be intentionally squeezed/tightened to hold in urine and stool. A variety of causes can result in the pelvic floor muscles losing coordination and therefore being unable to maintain normal continence or achieve normal evacuation. This is called pelvic floor dysfunction or obstructive defecation. There are 2 main components to 'normal' evacuation of stool. The 1st component involves the colon moni to move stool from the very beginning of the colon to the end of the colon and into the rectum. This component is termed colonic motility . The 2nd component is that the pelvis and pelvic floor muscles must relax appropriately during defecation to allow stool to pass out of the rectum. This component is termed pelvic floor evacuation . Difficulty with one or both of these components can cause a variety of symptoms. These symptoms can include irregular bowel habits, constipation, difficult evacuation, abdominal bloating, and pelvic pressure (just to name a few). #1 - Colon Motility #2 - Pelvic Floor Symptoms: A variety of symptoms can result from pelvic floor dysfunction / obstructive defecation. The most common bowel related symptoms include: Difficult evacuation / straining Irregular bowel habits Alternating between hard and loose stool Abdominal bloating or cramping Excessive flatus Overwhelming urge to evacuate stool (commonly with activity) Feeling of blockage at the anal opening Change in caliber of stool Evaluation and Testing: It is important to have these symptoms evaluated by a medical professional. These symptoms can overlap with lots of other medical problems, so specific testing may be necessary. The testing might include: Bowel Diary - daily diary that documents bowel habits and medications Colonoscopy - indicated after age 45-50 or if there is a change in bowel habits Anoscopy - a simple procedure performed in clinic to evaluate the anal canal Defecography - this is similar to an x-ray, and shows the pelvic anatomy and evaluates pelvic floor coordination and support Colonic transit study - a series of x-rays that are used to determine how fast contents naturally move through the intestines Anorectal physiology tests - a series of tests that measure strength, sensation and coordination in the anus, rectum and pelvic floor Anorectal ultrasound - allows imaging of the anal sphincter muscles Treatment: Treatment options can vary based on physical exam and test results. Treatment options might include: Dietary modification - It can be helpful to identify certain foods that can exacerbate or alleviate symptoms. Maintaining a healthy diet that includes plenty of water, fruits and vegetables is very important. A poor diet or irregular eating patterns will cause irregular bowel patterns and therefore prevent successful treatment. Probiotics - Probiotics are a vitamin for the colon and provide nourishment to the healthy gut bacteria. This can help to maintain baseline colon health and improve bowel habit regularity. Fiber supplements - Fiber supplements (Metamucil, Fibercon, Benefiber, Citrucel) can be helpful in some circumstances. It is always important to eat fiber in your diet (fruits, vegetables, grains). The goal of fiber is to bulk the stool. Fiber pills/supplements may worsen symptoms if the stool is already hard. Fiber pills/supplements may also worsen abdominal bloating, cramping or flatus/gas. If fiber pills/supplements do worsen symptoms, then switch to taking a stool softener (Miralax, Colace). Medications - Several factors impact bowel habit regularity including diet, exercise, hydration, traveling, etc. Daily medications can help to minimize the fluctuations caused by these other factors and therefore provide stable baseline bowel habits. There are several medications that are not addictive and work best if they are taken daily. Examples of these medications include: Miralax, Colace, Magnesium, Linzess. (The appropriate dose of medication can vary amongst patients.) You should review with your doctor which medication is best for you. Gastroenterologists specialize in the management of these medications. Pelvic floor physical therapy / Biofeedback therapy - This is a very common treatment and is done under the direction of a physical therapist or nurse. Non-painful exercises and techniques are used to retrain the pelvic floor muscles. The goal is to retrain the pelvic floor muscles how to appropriately relax and allow normal evacuation of gas and stool. Patients can continue to work on these exercises daily at home. (If you want additional assistance in finding a pelvic floor physical therapist close to home, please check [email or web address]) Surgery - If testing identifies abnormal pelvic anatomy that is prolapsing or falling down inside the pelvis, then surgery may be recommended to correct the anatomy. Most surgeries are either minor outpatient procedures or minimally invasive procedures. Magnesium supplement 400 mg Smooth move tea 2-3 times a week Probiotic -- VISBIOME // align , kefir Prunie drink drink warm : 9 prunes 1 pear with skin 1 cup apple juice/ cider Here is some information on pelvic floor PT including websites that can help you to find a therapist closer to you: [email or web address] [facility] [address] [place] [address] 2. [facility] [place] Locations: [address] [place] [phone] [place] [phone] [place] [address] 3. [facility] (treats male pelvic floor) [address] [place] [phone] [place] [address] [phone] [email or web address] [facility] Center for rehab [address] [facility] [phone] [facility] Lida Cornell [email or web address] [phone] 4. [facility] Physical Medicine (Dr. Ace) [address] [place], [place] [address] Fx: [phone] 5. [facility] Located [facility] the [facility]: [address] [facility], [address] [place] [address] Email us at: [email or web address] 6. [facility] [address] [facility] [address] [place], [place] [address] [email or web address] 7. [facility] [address] [place], [place] [address] 8. [facility] [address] [place], [place] [address] 9. [facility] [email or web address] Locations [place] [address], [address] [place] [address] [place] Location [address] [place], [place] [address] [place] Location [address] [facility], [address] [place] [address] documented in this encounter [facility] 02-24-2025 History and physical note Images from the original note were not included. PELVIC FLOOR COLON & RECTAL SURGERY Reason for visit: Review anorectal manometry History of Present Illness: Yamil Ng is a 39 year old FEMALE who was seen at the request of Dr. Lacey for anorectal manometry testing, rectal sensation testing. Ms. Ng was referred for testing due to symptoms of constipation and inappetence. GI Symptoms: Onset of issues: After childbirth, using TUMS often. Constipation started about 6 weeks. Previous bowels:normal Stool frequency: 2x times per week, prior to that was every other day Stool type: Type 3: Like a sausage but with cracks on it's surface Stool straining: mild straining Frequency of straining: sometimes Does anything make your symptoms better? Squatty potty stool Do you have accidental bowel leakage, fecal incontinence, or urgency with bowel movements? no Incomplete evacuation: Yes, feels like they are not emptying completely Maneuvers: moves and twists on toilet Current bowel regimen: Fiber gummy, alberto seeds Use of enemas or suppositories: no What medications have you tried in the past? : no Abdominal pressure/pain: +Bloated and nauseated Anorectal pain: no Vaginal/perineal pressure: no Feelings of prolapse :no Blood or mucous: once in a while, mucous. Very rarely bleeding. Hx of Surgery: see below Hx of Abuse/trauma/stress: no PMH: see below Previous PFPT:no GI provider: Abhijit Prior hysterectomy: Yes Urinary Symptoms: Urinary incontinence: with coughing Urinary frequency: No Obstetric history: 4 Para 4 Vaginal delivery: 4 c-sections. - Episiotomy: No - Tear: No - Forceps No Previous Testing Results include: Colonoscopy: Yes Date:01/13/25 - random biopsies: No - polyps: Yes Impression: - The examined portion of the ileum was normal. - One 2 mm polyp in the cecum, removed with a cold biopsy forceps. Resected and retrieved. - The examination was otherwise normal on direct and retroflexion views. Manometry: today: Normal anal tone, normal contractility, Abnormal expulsion with dyssynergia, hypersensitivity Defecography: No PAST MEDICAL HISTORY Diagnosis Date Anemia Complication of anesthesia nausea and vomiting Episode of recurrent major depressive disorder 08/28/2018 Family history of epilepsy aunt Hepatic hemangioma 01/20/2024 Hepatitis in viral diseases classified elsewhere(573.1) when she had mono Ovarian cyst 2004 PMH - PAST MEDICAL HISTORY OF Right Sciatica Seizure disorder (HCC) 02/04/2018 Vaginal hematoma PAST SURGICAL HISTORY Procedure Laterality Date DELIVERY ONLY , low cervical x4 DELIVERY ONLY 10/14/2016 COLPOSCOPY CERVIX VAG LOOP ELTRD BX CERVIX 2020 EXCISION GANGLION WRIST DORSAL/VOLAR PRIMARY Right HYSTEROSCOPY ENDOMETRIAL ABLATION N/A 02/28/2023 KNEE SURGERY HX Right shaved patella and removed fat pad LAP HYSTERECTOMY FOR UTERUS 250G OR LESS 09/04/2023 LIG/TRNSXJ FLP TUBE ABDL/VAG APPR UNI/BI Bilateral 10/14/2016 VAGINAL CUFF REPAIR 09/22/2023 exam under anesthesia, pelvic irrigation and insertion of intraabdominal drain Current Outpatient Medications Medication Sig Dispense Refill lacosamide (VIMPAT) 150 mg tab Take 1 tablet by mouth two times a day for 180 days. 180 tablet 1 levETIRAcetam (KEPPRA) 1,000 mg tablet Take 1 tablet by mouth two times a day. 180 tablet 1 ondansetron orally disintegrating (ZOFRAN ODT) 4 mg disintegrating tablet dissolve one tablet on the tongue every 8 hours as needed for nausea clobetasol (TEMOVATE) 0.05 % cream Apply to affected area twice daily Saturday-Saturday. Take weekends off. Do not use on face, armpits, neck, or groin. 60 g 2 Clobetasol Propionate (TEMOVATE) 0.05 % external solution Apply to affected areas on scalp twice daily Saturday-Saturday, take weekends off. May repeat as needed. 50 mL 3 triamcinolone acetonide (KENALOG) 0.1 % cream Apply to affected areas twice daily for 2 weeks. 80 g 1 rizatriptan (MAXALT) 10 mg tablet Take 1 tablet (10 mg) by mouth as needed (at onset of headache. May repeat after 2 hours.). Do not exceed 30 mg per day. 9 tablet 3 No current facility-administered medications for this visit. ALLERGIES Allergen Reactions Bleach (Sodium Hypo* Rash Lamictal [Lamotrigi* Rash [place] Trees [Trees] Rash, Hives Topiramate Rash Tree And Shrub Poll* Unknown FAMILY HISTORY Problem Relation Age of Onset Hypertension Father Diabetes Father Hyperlipidemia Father Cataract Father other (Diverticulosis) Father other (FIBROMYALGIA) Sister Pancreatitis Sister Cancer Maternal Grandmother Breast Cancer Paternal Grandmother Heart Paternal Grandmother Stroke Paternal Grandfather Diabetes Maternal Aunt Anesthesia Problems No Family History Clotting Disorder No Family History Malig Hyperthermia No Family History Colon Cancer No Family History SOCIAL HISTORY[1] Physical Exam: There were no vitals filed for this visit. General Appearance: Well appearing, alert, in no acute distress, well-hydrated, well nourished. Anorectal: Perianal skin is intact. No erythema, induration or excoriation. No fissure, fistula or external hemorrhoids. Digital Rectal Exam: Anus: closed Resting tone: NORMAL Squeeze tone: NORMAL Valsalva: pelvic floor relaxation is Abnormal. Puborectalis: non tender in Left anterior, Right anterior, Left posterior, and Right posterior to palpation on valsalva Rectocele: Absent Full thickness rectal prolapse: No Assessment Anorectal Physiology tests reviewed at today's visit: Assessment and Plan: Yamil Ng is a 39 year old FEMALE who was referred for anorectal physiology testing due to symptoms of constipation and poor appetite. The testing that was performed today includes anorectal manometry, rectal sensory testing, balloon expulsion. These test results were reviewed with Yamil Ng and are listed above. Overall, these tests show normal anal sphincter strength, hyperacute rectal sensation, and abnormal pelvic floor movement. After review of the patient's history, physical exam findings, anorectal manometry, the patient may have obstructive defecation due to pelvic floor dyssynergia/poor pelvic floor movement which could contribute to their symptoms. Recommendations for this include: 1. Stay hydrated by drinking at least 8 glasses of water per day. This will help to keep your bowel habits more regular. 2. Continue taking your bowel regimen as prescribed. 3. You may take a daily stool softener (Miralax). Keeping your stools soft will improve your ability to evacuate more regularly. Start with 17g (1 capful) daily and adjust every 2-3 days as need to achieve formed, soft stool. If pkqy-ian-dnnxhwu stool softeners do not work, then seek consultation with your primary care physician or a service operations manager to discuss prescription stool softeners or motility medications. 4. Enemas or suppositories may help to stimulate your bowels to evacuate. If this is successful then it can be repeated daily. 5. Pelvic floor physical therapy. The goal of this therapy is to retrain the pelvic floor muscles to more appropriately relax and therefore improve evacuation of stool. Physical therapy is the most effective way to get the pelvic floor muscles moving and coordinating correctly. Pelvic floor PT was ordered today, reviewed scheduling process with patient and how to find local therapists. 6. There are no surgical options to improve pelvic muscle coordination. 7. Pelvic floor dysfunction handout reviewed and provided to patient. 8. Patient was instructed to follow up virtual visit in 3 months after completion of physical therapy and adherence to suggested bowel regimen. 9. Follow up with your referring physician. A copy of your test results will be sent to this physician. Pelvic Floor Dysfunction / Obstructive Defecation [facility] Pelvic Floor Testing and Treatment Center At baseline, the pelvic floor muscles work to maintain continence (both urinary and bowel). During intentional evacuation of urine and stool, the pelvic floor muscles relax to allow passage of urine and stool. The pelvic floor muscles can also be intentionally squeezed/tightened to hold in urine and stool. A variety of causes can result in the pelvic floor muscles losing coordination and therefore being unable to maintain normal continence or achieve normal evacuation. This is called pelvic floor dysfunction or obstructive defecation. There are 2 main components to 'normal' evacuation of stool. The 1st component involves the colon moni to move stool from the very beginning of the colon to the end of the colon and into the rectum. This component is termed colonic motility . The 2nd component is that the pelvis and pelvic floor muscles must relax appropriately during defecation to allow stool to pass out of the rectum. This component is termed pelvic floor evacuation . Difficulty with one or both of these components can cause a variety of symptoms. These symptoms can include irregular bowel habits, constipation, difficult evacuation, abdominal bloating, and pelvic pressure (just to name a few). #1 - Colon Motility #2 - Pelvic Floor Symptoms: A variety of symptoms can result from pelvic floor dysfunction / obstructive defecation. The most common bowel related symptoms include: Difficult evacuation / straining Irregular bowel habits Alternating between hard and loose stool Abdominal bloating or cramping Excessive flatus Overwhelming urge to evacuate stool (commonly with activity) Feeling of blockage at the anal opening Change in caliber of stool Evaluation and Testing: It is important to have these symptoms evaluated by a medical professional. These symptoms can overlap with lots of other medical problems, so specific testing may be necessary. The testing might include: Bowel Diary - daily diary that documents bowel habits and medications Colonoscopy - indicated after age 45-50 or if there is a change in bowel habits Anoscopy - a simple procedure performed in clinic to evaluate the anal canal Defecography - this is similar to an x-ray, and shows the pelvic anatomy and evaluates pelvic floor coordination and support Colonic transit study - a series of x-rays that are used to determine how fast contents naturally move through the intestines Anorectal physiology tests - a series of tests that measure strength, sensation and coordination in the anus, rectum and pelvic floor Anorectal ultrasound - allows imaging of the anal sphincter muscles Treatment: Treatment options can vary based on physical exam and test results. Treatment options might include: Dietary modification - It can be helpful to identify certain foods that can exacerbate or alleviate symptoms. Maintaining a healthy diet that includes plenty of water, fruits and vegetables is very important. A poor diet or irregular eating patterns will cause irregular bowel patterns and therefore prevent successful treatment. Probiotics - Probiotics are a vitamin for the colon and provide nourishment to the healthy gut bacteria. This can help to maintain baseline colon health and improve bowel habit regularity. Fiber supplements - Fiber supplements (Metamucil, Fibercon, Benefiber, Citrucel) can be helpful in some circumstances. It is always important to eat fiber in your diet (fruits, vegetables, grains). The goal of fiber is to bulk the stool. Fiber pills/supplements may worsen symptoms if the stool is already hard. Fiber pills/supplements may also worsen abdominal bloating, cramping or flatus/gas. If fiber pills/supplements do worsen symptoms, then switch to taking a stool softener (Miralax, Colace). Medications - Several factors impact bowel habit regularity including diet, exercise, hydration, traveling, etc. Daily medications can help to minimize the fluctuations caused by these other factors and therefore provide stable baseline bowel habits. There are several medications that are not addictive and work best if they are taken daily. Examples of these medications include: Miralax, Colace, Magnesium, Linzess. (The appropriate dose of medication can vary amongst patients.) You should review with your doctor which medication is best for you. Gastroenterologists specialize in the management of these medications. Pelvic floor physical therapy / Biofeedback therapy - This is a very common treatment and is done under the direction of a physical therapist or nurse. Non-painful exercises and techniques are used to retrain the pelvic floor muscles. The goal is to retrain the pelvic floor muscles how to appropriately relax and allow normal evacuation of gas and stool. Patients can continue to work on these exercises daily at home. (If you want additional assistance in finding a pelvic floor physical therapist close to home, please check [email or web address]) Surgery - If testing identifies abnormal pelvic anatomy that is prolapsing or falling down inside the pelvis, then surgery may be recommended to correct the anatomy. Most surgeries are either minor outpatient procedures or minimally invasive procedures. Magnesium supplement 400 mg Smooth move tea 2-3 times a week Probiotic -- VISBIOME // align , kefir Prunie drink drink warm : 9 prunes 1 pear with skin 1 cup apple juice/ cider Here is some information on pelvic floor PT including websites that can help you to find a therapist closer to you: Www.[email or web address] [email or web address] [email or web address] [facility] [address] [place] [address] 2. [facility] [place] Locations: [address] [place] [phone] [place] [phone], [place] [address] 3. Carlos Scales PT locations [facility] (treats male pelvic floor) [address] [place] [phone] [place] [phone] [email or web address] [facility] Center for rehab [address] [facility] [phone] [facility] Lida Cornell Www.Wise[facility] [phone] 4. [facility] Physical Medicine (Dr. Ace) [address] [place], [place] [address] Fx: [phone] 5. [facility] [place] [facility] Located in the [facility] complex: [address] [facility], [address] [place] [address] Email us at: [email or web address] 6. [facility] [address] [facility] [address] [place], [place] [address] [email or web address] 7. [facility] [address] [place], [place] [address] 8. [facility] Physical Therapy [address] [place], [place] [address] 9. [facility] [email or web address] Locations [place] [facility] [address], [address] [place] [address] [place] [facility] [address] [place], [place] [address] [place] [address] [facility], [address] [place] [address] LESLIE LUONG APRN.TRACK WATCHMAN Pelvic Floor Colorectal Surgery I spent a total of 30 minutes on the date of the service which included preparing to see the patient, [id number] patient care, completing clinical documentation, obtaining and/or reviewing separately obtained history, performing a medically appropriate examination, counseling and educating the patient/family/caregiver, communicating with other HCPs (not separately reported), and care coordination (not separately reported). [1] Social History Tobacco Use Smoking status: Never Smokeless tobacco: Never Vaping Use Vaping status: Never Used Substance Use Topics Alcohol use: Yes Comment: occasional Drug use: No [facility] 02-24-2025 History and physical note Images from the original note were not included. PELVIC FLOOR COLON & RECTAL SURGERY Reason for visit: Review anorectal manometry History of Present Illness: Yamil Ng is a 39 year old FEMALE who was seen at the request of Dr. Lacey for anorectal manometry testing, rectal sensation testing. Ms. Ng was referred for testing due to symptoms of constipation and inappetence. GI Symptoms: Onset of issues: After childbirth, using TUMS often. Constipation started about 6 weeks. Previous bowels:normal Stool frequency: 2x times per week, prior to that was every other day Stool type: Type 3: Like a sausage but with cracks on it's surface Stool straining: mild straining Frequency of straining: sometimes Does anything make your symptoms better? Squatty potty stool Do you have accidental bowel leakage, fecal incontinence, or urgency with bowel movements? no Incomplete evacuation: Yes, feels like they are not emptying completely Maneuvers: moves and twists on toilet Current bowel regimen: Fiber gummy, alberto seeds Use of enemas or suppositories: no What medications have you tried in the past? : no Abdominal pressure/pain: +Bloated and nauseated Anorectal pain: no Vaginal/perineal pressure: no Feelings of prolapse :no Blood or mucous: once in a while, mucous. Very rarely bleeding. Hx of Surgery: see below Hx of Abuse/trauma/stress: no PMH: see below Previous PFPT:no GI provider: Abhijit Prior hysterectomy: Yes Urinary Symptoms: Urinary incontinence: with coughing Urinary frequency: No Obstetric history: 4 Para 4 Vaginal delivery: 4 c-sections. - Episiotomy: No - Tear: No - Forceps No Previous Testing Results include: Colonoscopy: Yes Date:01/13/25 - random biopsies: No - polyps: Yes Impression: - The examined portion of the ileum was normal. - One 2 mm polyp in the cecum, removed with a cold biopsy forceps. Resected and retrieved. - The examination was otherwise normal on direct and retroflexion views. Manometry: today: Normal anal tone, normal contractility, Abnormal expulsion with dyssynergia, hypersensitivity Defecography: No PAST MEDICAL HISTORY Diagnosis Date Anemia Complication of anesthesia nausea and vomiting Episode of recurrent major depressive disorder 08/28/2018 Family history of epilepsy aunt Hepatic hemangioma 01/20/2024 Hepatitis in viral diseases classified elsewhere(573.1) when she had mono Ovarian cyst 2004 PMH - PAST MEDICAL HISTORY OF Right Sciatica Seizure disorder (HCC) 02/04/2018 Vaginal hematoma PAST SURGICAL HISTORY Procedure Laterality Date DELIVERY ONLY , low cervical x4 DELIVERY ONLY 10/14/2016 COLPOSCOPY CERVIX VAG LOOP ELTRD BX CERVIX 2020 EXCISION GANGLION WRIST DORSAL/VOLAR PRIMARY Right HYSTEROSCOPY ENDOMETRIAL ABLATION N/A 02/28/2023 KNEE SURGERY HX Right shaved patella and removed fat pad LAP HYSTERECTOMY FOR UTERUS 250G OR LESS 09/04/2023 LIG/TRNSXJ FLP TUBE ABDL/VAG APPR UNI/BI Bilateral 10/14/2016 VAGINAL CUFF REPAIR 09/22/2023 exam under anesthesia, pelvic irrigation and insertion of intraabdominal drain Current Outpatient Medications Medication Sig Dispense Refill lacosamide (VIMPAT) 150 mg tab Take 1 tablet by mouth two times a day for 180 days. 180 tablet 1 levETIRAcetam (KEPPRA) 1,000 mg tablet Take 1 tablet by mouth two times a day. 180 tablet 1 ondansetron orally disintegrating (ZOFRAN ODT) 4 mg disintegrating tablet dissolve one tablet on the tongue every 8 hours as needed for nausea clobetasol (TEMOVATE) 0.05 % cream Apply to affected area twice daily Saturday-Saturday. Take weekends off. Do not use on face, armpits, neck, or groin. 60 g 2 Clobetasol Propionate (TEMOVATE) 0.05 % external solution Apply to affected areas on scalp twice daily Saturday-Saturday, take weekends off. May repeat as needed. 50 mL 3 triamcinolone acetonide (KENALOG) 0.1 % cream Apply to affected areas twice daily for 2 weeks. 80 g 1 rizatriptan (MAXALT) 10 mg tablet Take 1 tablet (10 mg) by mouth as needed (at onset of headache. May repeat after 2 hours.). Do not exceed 30 mg per day. 9 tablet 3 No current facility-administered medications for this visit. ALLERGIES Allergen Reactions Bleach (Sodium Hypo* Rash Lamictal [Lamotrigi* Rash [place] Trees [Trees] Rash, Hives Topiramate Rash Tree And Shrub Poll* Unknown FAMILY HISTORY Problem Relation Age of Onset Hypertension Father Diabetes Father Hyperlipidemia Father Cataract Father other (Diverticulosis) Father other (FIBROMYALGIA) Sister Pancreatitis Sister Cancer Maternal Grandmother Breast Cancer Paternal Grandmother Heart Paternal Grandmother Stroke Paternal Grandfather Diabetes Maternal Aunt Anesthesia Problems No Family History Clotting Disorder No Family History Malig Hyperthermia No Family History Colon Cancer No Family History SOCIAL HISTORY[1] Physical Exam: There were no vitals filed for this visit. General Appearance: Well appearing, alert, in no acute distress, well-hydrated, well nourished. Anorectal: Perianal skin is intact. No erythema, induration or excoriation. No fissure, fistula or external hemorrhoids. Digital Rectal Exam: Anus: closed Resting tone: NORMAL Squeeze tone: NORMAL Valsalva: pelvic floor relaxation is Abnormal. Puborectalis: non tender in Left anterior, Right anterior, Left posterior, and Right posterior to palpation on valsalva Rectocele: Absent Full thickness rectal prolapse: No Assessment Anorectal Physiology tests reviewed at today's visit: Assessment and Plan: Yamil Ng is a 39 year old FEMALE who was referred for anorectal physiology testing due to symptoms of constipation and poor appetite. The testing that was performed today includes anorectal manometry, rectal sensory testing, balloon expulsion. These test results were reviewed with Yamil Ng and are listed above. Overall, these tests show normal anal sphincter strength, hyperacute rectal sensation, and abnormal pelvic floor movement. After review of the patient's history, physical exam findings, anorectal manometry, the patient may have obstructive defecation due to pelvic floor dyssynergia/poor pelvic floor movement which could contribute to their symptoms. Recommendations for this include: 1. Stay hydrated by drinking at least 8 glasses of water per day. This will help to keep your bowel habits more regular. 2. Continue taking your bowel regimen as prescribed. 3. You may take a daily stool softener (Miralax). Keeping your stools soft will improve your ability to evacuate more regularly. Start with 17g (1 capful) daily and adjust every 2-3 days as need to achieve formed, soft stool. If [id number] stool softeners do not work, then seek consultation with your primary care physician or a service operations manager to discuss prescription stool softeners or motility medications. 4. Enemas or suppositories may help to stimulate your bowels to evacuate. If this is successful then it can be repeated daily. 5. Pelvic floor physical therapy. The goal of this therapy is to retrain the pelvic floor muscles to more appropriately relax and therefore improve evacuation of stool. Physical therapy is the most effective way to get the pelvic floor muscles moving and coordinating correctly. Pelvic floor PT was ordered today, reviewed scheduling process with patient and how to find local therapists. 6. There are no surgical options to improve pelvic muscle coordination. 7. Pelvic floor dysfunction handout reviewed and provided to patient. 8. Patient was instructed to follow up virtual visit in 3 months after completion of physical therapy and adherence to suggested bowel regimen. 9. Follow up with your referring physician. A copy of your test results will be sent to this physician. Pelvic Floor Dysfunction / Obstructive Defecation [facility] Pelvic Floor Testing and Treatment Center At baseline, the pelvic floor muscles work to maintain continence (both urinary and bowel). During intentional evacuation of urine and stool, the pelvic floor muscles relax to allow passage of urine and stool. The pelvic floor muscles can also be intentionally squeezed/tightened to hold in urine and stool. A variety of causes can result in the pelvic floor muscles losing coordination and therefore being unable to maintain normal continence or achieve normal evacuation. This is called pelvic floor dysfunction or obstructive defecation. There are 2 main components to 'normal' evacuation of stool. The 1st component involves the colon moni to move stool from the very beginning of the colon to the end of the colon and into the rectum. This component is termed colonic motility . The 2nd component is that the pelvis and pelvic floor muscles must relax appropriately during defecation to allow stool to pass out of the rectum. This component is termed pelvic floor evacuation . Difficulty with one or both of these components can cause a variety of symptoms. These symptoms can include irregular bowel habits, constipation, difficult evacuation, abdominal bloating, and pelvic pressure (just to name a few). #1 - Colon Motility #2 - Pelvic Floor Symptoms: A variety of symptoms can result from pelvic floor dysfunction / obstructive defecation. The most common bowel related symptoms include: Difficult evacuation / straining Irregular bowel habits Alternating between hard and loose stool Abdominal bloating or cramping Excessive flatus Overwhelming urge to evacuate stool (commonly with activity) Feeling of blockage at the anal opening Change in caliber of stool Evaluation and Testing: It is important to have these symptoms evaluated by a medical professional. These symptoms can overlap with lots of other medical problems, so specific testing may be necessary. The testing might include: Bowel Diary - daily diary that documents bowel habits and medications Colonoscopy - indicated after age 45-50 or if there is a change in bowel habits Anoscopy - a simple procedure performed in clinic to evaluate the anal canal Defecography - this is similar to an x-ray, and shows the pelvic anatomy and evaluates pelvic floor coordination and support Colonic transit study - a series of x-rays that are used to determine how fast contents naturally move through the intestines Anorectal physiology tests - a series of tests that measure strength, sensation and coordination in the anus, rectum and pelvic floor Anorectal ultrasound - allows imaging of the anal sphincter muscles Treatment: Treatment options can vary based on physical exam and test results. Treatment options might include: Dietary modification - It can be helpful to identify certain foods that can exacerbate or alleviate symptoms. Maintaining a healthy diet that includes plenty of water, fruits and vegetables is very important. A poor diet or irregular eating patterns will cause irregular bowel patterns and therefore prevent successful treatment. Probiotics - Probiotics are a vitamin for the colon and provide nourishment to the healthy gut bacteria. This can help to maintain baseline colon health and improve bowel habit regularity. Fiber supplements - Fiber supplements (Metamucil, Fibercon, Benefiber, Citrucel) can be helpful in some circumstances. It is always important to eat fiber in your diet (fruits, vegetables, grains). The goal of fiber is to bulk the stool. Fiber pills/supplements may worsen symptoms if the stool is already hard. Fiber pills/supplements may also worsen abdominal bloating, cramping or flatus/gas. If fiber pills/supplements do worsen symptoms, then switch to taking a stool softener (Miralax, Colace). Medications - Several factors impact bowel habit regularity including diet, exercise, hydration, traveling, etc. Daily medications can help to minimize the fluctuations caused by these other factors and therefore provide stable baseline bowel habits. There are several medications that are not addictive and work best if they are taken daily. Examples of these medications include: Miralax, Colace, Magnesium, Linzess. (The appropriate dose of medication can vary amongst patients.) You should review with your doctor which medication is best for you. Gastroenterologists specialize in the management of these medications. Pelvic floor physical therapy / Biofeedback therapy - This is a very common treatment and is done under the direction of a physical therapist or nurse. Non-painful exercises and techniques are used to retrain the pelvic floor muscles. The goal is to retrain the pelvic floor muscles how to appropriately relax and allow normal evacuation of gas and stool. Patients can continue to work on these exercises daily at home. (If you want additional assistance in finding a pelvic floor physical therapist close to home, please check [email or web address]) Surgery - If testing identifies abnormal pelvic anatomy that is prolapsing or falling down inside the pelvis, then surgery may be recommended to correct the anatomy. Most surgeries are either minor outpatient procedures or minimally invasive procedures. Magnesium supplement 400 mg Smooth move tea 2-3 times a week Probiotic -- VISBIOME // align , kefir Prunie drink drink warm : 9 prunes 1 pear with skin 1 cup apple juice/ cider Here is some information on pelvic floor PT including websites that can help you to find a therapist closer to you: Www.[email or web address].org [email or web address] [email or web address] [facility] [address] [place] [address] 2. [facility] [place] Locations: [address] [place] [phone] [place] [phone], [place] [address] 3. Carlos Scales PT locations [facility] (treats male pelvic floor) [address] [place] [phone] [address] [place] [phone] [email or web address] [facility] Center for rehab [address] [facility] [phone] [facility] Lida Cornell Www.[employer] [phone] 4. [facility] Physical Medicine (Dr. Ace) [address] [place], [place] [address] Fx: [phone] 5. [facility] [place] [facility] Located in the [facility] complex: [address] [facility], [address] [place] [address] Email us at: [email or web address] 6. [facility] [address] [facility] [address] [place], [place] [address] [email or web address] 7. [facility] [address] [place], [place] [address] 8. [facility] Therapy [address] [place], [place] [address] 9. [facility] [email or web address] Locations [place] [facility] [address], [address] [place] [address] [place] [facility] [address] [place], [place] [address] [place] [address] [facility], [address] [place] [address] LESLIE LUONG APRN.TRACK WATCHMAN Pelvic Floor Colorectal Surgery I spent a total of 30 minutes on the date of the service which included preparing to see the patient, [id number] patient care, completing clinical documentation, obtaining and/or reviewing separately obtained history, performing a medically appropriate examination, counseling and educating the patient/family/caregiver, communicating with other HCPs (not separately reported), and care coordination (not separately reported). [1] Social History Tobacco Use Smoking status: Never Smokeless tobacco: Never Vaping Use Vaping status: Never Used Substance Use Topics Alcohol use: Yes Comment: occasional Drug use: No documented in this encounter [facility] 02-16-2025 History of Present illness Narrative Radiology Service Progress Note PATIENT NAME: Yamil Ng DATE OF SERVICE: February 16, 2025 TIME: 10:39 AM PATIENT IDENTITY VERIFICATION COMPLETED USING TWO (2) IDENTIFIERS: Name and Date of confirmed by patient verbally. FALL SCREENING: Has the patient had 2 falls in the last year or 1 fall with injury or currently using an Ambulatory Assistive Device (Walker, Cane, Wheelchair, Crutches, etc.)? No PATIENT GENDER DATA: Assigned female at . status: : No status: NO. PATIENT RELEVANT IMPLANT DATA REVIEWED: Yes PATIENT PRESENTS WITH AN IMPLANTABLE OR ATTACHED INFORMATION TECHNOLOGY INSTRUCTOR: No RADIOLOGY DEPARTMENT: General X-ray: Exam(s) Completed: Abdomen X-Ray: Abdomen with Upright PERIPHERAL IV DATA: Not applicable SIGNED BY: RT Pola(Alice) February 16, 2025 10:39 AM documented in this encounter [facility] 02-16-2025 Note HNO ID: [id number] Author: SARBJIT UMANZOR RT(R) Service: ? Author Type: Corporate Sales Manager Type: Progress Notes Filed: 02/16/2025 10:48 Note Text: Radiology Service Progress Note PATIENT NAME: Yamil Ng DATE OF SERVICE: February 16, 2025 TIME: 10:39 AM PATIENT IDENTITY VERIFICATION COMPLETED USING TWO (2) IDENTIFIERS: Name and Date of confirmed by patient verbally. FALL SCREENING: Has the patient had 2 falls in the last year or 1 fall with injury or currently using an Ambulatory Assistive Device (Walker, Cane, Wheelchair, Crutches, etc.)? No PATIENT GENDER DATA: Assigned female at . status: : No status: NO. PATIENT RELEVANT IMPLANT DATA REVIEWED: Yes PATIENT PRESENTS WITH AN IMPLANTABLE OR ATTACHED INFORMATION TECHNOLOGY INSTRUCTOR: No RADIOLOGY DEPARTMENT: General X-ray: Exam(s) Completed: Abdomen X-Ray: Abdomen with Upright PERIPHERAL IV DATA: Not applicable SIGNED BY: Sarbjit Umanzor RT(R) February 16, 2025 10:39 AM [facility] 02-16-2025 History of Present illness Narrative CHIEF COMPLAINT: Patient presents with: Recheck: MD follow up per Domitila for Constipation, Nausea and Abdominal Pain HPI Yamil Ng is a 39 year old female here today for Recheck (MD follow up per Domitila for Constipation, Nausea and Abdominal Pain ) Yamil Ng is a 39-year-old female with a history of chronic constipation and heartburn, presenting for evaluation of worsening abdominal pain, nausea, and anorexia. Recording using Bucky Box software for draft documentation of the visit was discussed with the patient/authorized reimbursement representative; all questions welcomed and answered. Patient/authorized reimbursement representative agreed to proceed Abdominal Pain and Nausea: - Yamil Ng has chronic abdominal pain and nausea, worsening postprandially. - Describes pain as feeling like the stomach is being squeezed. - Experiences early satiety; eating even small amounts causes significant discomfort. - Recent upper endoscopy was normal, including biopsies of the esophagus, stomach, and duodenum. - Reports that symptoms have worsened since the endoscopy. - CT scan showed no acute findings; a small ovarian cyst was noted. - Denies relief from omeprazole or Carafate. - Has a gastric emptying test ordered by a blacksmith hammer operator but not yet completed. Anorexia: - Decreased appetite due to fear of pain and discomfort after eating. - Currently eating only once a day due to pain and nausea. - Reports no desire to eat and sometimes forces herself to eat despite discomfort. Chronic Constipation: - Yamil has a longstanding history of constipation, worsening over time. - Bowel movements every 4-5 days, sometimes requiring straining. - Stool consistency varies, often described as type 4-5 on the [place] Stool Scale. - Reports a sensation of incomplete evacuation. - Uses Dulcolax PRN; denies regular use of magnesium or Miralax. - Drinks water frequently. - Uses a stool to assist with bowel movements. Surgical History: - Four C-sections. - Laparoscopic-assisted vaginal hysterectomy in August 2023, with a subsequent revision due to bleeding per patient 10/2024 AXR: Constipation. Moderate stool burden. 01/13/2025 CT a/p with IV contrast: IMPRESSION: No acute findings in the abdomen and pelvis. Corpus luteum cyst in the left ovary. Trace free fluid in the pelvis likely physiologic. EGD and Colonoscopy: - Normal esophagus. - Normal stomach. Biopsied. - Normal examined duodenum. Biopsied. - The examined portion of the ileum was normal. - One 2 mm polyp in the cecum, removed with a cold biopsy forceps. Resected and retrieved. - The examination was otherwise normal on direct and retroflexion views. A. Duodenum, biopsy: - Small bowel mucosa with no diagnostic abnormality. B. Stomach, biopsy: - Gastric antral-type mucosa with chronic inactive gastritis, reactive gastropathy, and intestinal metaplasia, negative for dysplasia. 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 - See comment. C. Cecal polyp, biopsy: - Colonic mucosa with minimal hyperplastic changes. - See comment. B. Given the presence of chronic gastritis and intestinal metaplasia, immunohistochemical stains have been performed on block B1. An immunohistochemical stain for Helicobacter pylori organisms is negative. A gastrin stain confirms the presence of separate fragments of antral-type and oxyntic-type mucosa. A synaptophysin stain highlights areas of linear and micronodular ECL cell hyperplasia. While the presence of ECL cell hyperplasia raises the possibility of an early/evolving autoimmune gastritis, it can also be seen in the setting of chronic PPI therapy. Correlation with clinical, endoscopic, and other laboratory findings (e.g., serum gastrin and vitamin B12 levels, testing for anti-parietal cell and anti-intrinsic factor autoantibodies) may be helpful if indicated. C. There is no evidence of dysplasia, including on multiple additional deeper levels. IF AB, iron studies, folate, parietal cell antibodies, vitamin B12 normal Gastrin elevated on PPI Lipase normal 01/2025 GES: ordered not completed Current Outpatient Medications Medication Sig lacosamide (VIMPAT) 150 mg tab Take 1 tablet by mouth two times a day for 180 days. levETIRAcetam (KEPPRA) 1,000 mg tablet Take 1 tablet by mouth two times a day. ondansetron orally disintegrating (ZOFRAN ODT) 4 mg disintegrating tablet dissolve one tablet on the tongue every 8 hours as needed for nausea clobetasol (TEMOVATE) 0.05 % cream Apply to affected area twice daily Saturday-Buck. Take weekends off. Do not use on face, armpits, neck, or groin. Clobetasol Propionate (TEMOVATE) 0.05 % external solution Apply to affected areas on scalp twice daily Saturday-Saturday, take weekends off. May repeat as needed. triamcinolone acetonide (KENALOG) 0.1 % cream Apply to affected areas twice daily for 2 weeks. rizatriptan (MAXALT) 10 mg tablet Take 1 tablet (10 mg) by mouth as needed (at onset of headache. May repeat after 2 hours.). Do not exceed 30 mg per day. No current facility-administered medications for this visit. ALLERGIES Allergen Reactions Bleach (Sodium Hypo* Rash Lamictal [Lamotrigi* Rash [place] Trees [Trees] Rash, Hives Topiramate Rash Tree And Shrub Poll* Unknown SOCIAL HISTORY[1] PAST MEDICAL HISTORY Diagnosis Date Anemia Complication of anesthesia nausea and vomiting Episode of recurrent major depressive disorder 08/28/2018 Family history of epilepsy aunt Hepatic hemangioma 01/20/2024 Hepatitis in viral diseases classified elsewhere(573.1) when she had mono Ovarian cyst 2004 PM[facility] - PAST MEDICAL HISTORY OF Right Sciatica Seizure disorder (HCC) 02/04/2018 Vaginal hematoma PAST SURGICAL HISTORY Procedure Laterality Date DELIVERY ONLY , low cervical x4 DELIVERY ONLY 10/14/2016 COLPOSCOPY CERVIX VAG LOOP ELTRD BX CERVIX 2020 EXCISION GANGLION WRIST DORSAL/VOLAR PRIMARY Right HYSTEROSCOPY ENDOMETRIAL ABLATION N/A 02/28/2023 KNEE SURGERY HX Right shaved patella and removed fat pad LAP HYSTERECTOMY FOR UTERUS 250G OR LESS 09/04/2023 LIG/TRNSXJ FLP TUBE ABDL/VAG APPR UNI/BI Bilateral 10/14/2016 VAGINAL CUFF REPAIR 09/22/2023 exam under anesthesia, pelvic irrigation and insertion of intraabdominal drain FAMILY HISTORY Problem Relation Age of Onset Hypertension Father Diabetes Father Hyperlipidemia Father Cataract Father other (Diverticulosis) Father other (FIBROMYALGIA) Sister Pancreatitis Sister Cancer Maternal Grandmother Breast Cancer Paternal Grandmother Heart Paternal Grandmother Stroke Paternal Grandfather Diabetes Maternal Aunt Anesthesia Problems No Family History Clotting Disorder No Family History Malig Hyperthermia No Family History Colon Cancer No Family History REVIEW OF SYSTEMS Review of Systems Constitutional: Positive for appetite change and fatigue. HENT: Positive for trouble swallowing. Respiratory: Positive for choking. Gastrointestinal: Positive for abdominal distention, abdominal pain, constipation, nausea and vomiting. Change in Bowel Habits, Gas, Heartburn All other systems reviewed and are negative. PHYSICAL EXAM BP 98/68 Pulse 66 Ht 5' 3 (1.60m) Wt 143 lb 6.4 oz (65.0kg) LMP 07/17/2023 BMI 25.41 kg/(m^2). Physical Exam Gen: pleasant, NAD, AAO*3 Abd: soft, NT, ND, (+) BS x 4 quad, No R/G/M ASSESSMENT: 1. Chronic constipation (K59.09) 2. Epigastric pain (R10.13) 3. Bloating (R14.0) 4. Early satiety (R68.81) - Chronic constipation with incomplete evacuation and infrequent bowel movements (every 4-5 days); symptoms began after childbirth and have progressively worsened. - Upper endoscopy normal (including biopsies); CT scan showed no acute findings; abdominal X-ray in October. - Gastric emptying study ordered by rheumatology in January not yet completed. - Start magnesium citrate tablets (100-200 mg) at night; avoid magnesium citrate liquid. - Consider adding Miralax if needed. - Increase dietary fiber intake (Benefiber 1-2 tsp daily, or 1-2 kiwis/prunes daily); maintain high water intake. - Use stool (7-9 inches high) for optimal bowel positioning; limit toilet time to 10 minutes per attempt. - Avoid Tums due to potential worsening of constipation; switch to Gaviscon or Maalox for antacid needs. - Order repeat abdominal X-ray. - Order gastric emptying study. - Order anorectal manometry to evaluate for pelvic floor dysfunction. - If gastric emptying study is normal, consider Echavarria probe +/- impedence test to assess for silent or non-erosive reflux and bile reflux disease vs. Visceral hypersensitivity. Patient Instructions: We discussed your ongoing symptoms of constipation, nausea, abdominal pain, and difficulty eating: - I recommend you undergo a gastric emptying test to evaluate how quickly your stomach empties food. This test involves eating a small meal (e.g., eggs or oatmeal) and monitoring digestion. I will place the order for this test. - I also recommend an anorectal manometry test to assess the function of the muscles and nerves involved in bowel movements. This test will help determine if pelvic floor dysfunction is contributing to your symptoms. I will place the order for this test. - I will order a repeat abdominal x-ray to evaluate your current bowel status. We discussed strategies to improve your constipation and reduce bloating: - Hydration: Continue drinking plenty of water daily, as you are already doing. - Fiber: Add fiber to your diet. You can do this naturally by eating foods like prunes, kiwis, lentils, or beans. Alternatively, you can use a fiber supplement such as Benefiber (1-2 teaspoons daily) or Metamucil. - Magnesium: Start taking magnesium citrate tablets (100-200 mg) daily, preferably at night. Avoid the liquid magnesium citrate, as it is too strong. If magnesium citrate is unavailable, you may use magnesium glycinate, gluconate, or oxide. - Miralax: If needed, you can add Miralax (polyethylene glycol) to your routine. This is a powdered laxative that pulls water into the colon and is safe for long-term use. - Dulcolax: You may continue using Dulcolax as needed, but try to rely on the above measures first. - Squatty Potty: Use your stool (or a similar device) every time you attempt a bowel movement. Ensure it is 7-9 inches high for optimal positioning. - Bathroom habits: Try to have a bowel movement daily, but do not sit on the toilet for longer than 10 minutes. If nothing happens, get up and try again later. We discussed dietary changes to help with your nausea and difficulty eating: - Eat 5-6 small meals throughout the day instead of one large meal. - Consider incorporating liquid nutrition such as protein shakes if solid foods are difficult to tolerate. - Avoid Tums, as they can worsen constipation. Instead, try Gaviscon or Maalox for heartburn relief. We discussed your previous medications: - You are no longer taking omeprazole or Carafate. This is fine for now, as they were not providing relief. Next steps: - Complete the gastric emptying test, anorectal manometry, and abdominal x-ray as ordered. - Follow the above recommendations for managing constipation and nausea. - Once the test results are available, we will determine the next steps, which may include further evaluation for acid reflux or other conditions. Please let me know if your symptoms worsen or if you have any questions before your next visit. Shavon Zaidi MD DATE: 02/15/25 TIME: 12:46 PM [1] Social History Tobacco Use Smoking status: Never Smokeless tobacco: Never Vaping Use Vaping status: Never Used Substance Use Topics Alcohol use: Yes Comment: occasional Drug use: No documented in this encounter [facility] 02-16-2025 Note HNO ID: [id number] Author: SHAVON LACEY MD Service: ? Author Type: Physician Type: Progress Notes Filed: 02/16/2025 09:21 Note Text: CHIEF COMPLAINT: Patient presents with: Recheck: MD follow up per Domitila for Constipation, Nausea and Abdominal Pain HPI Yamil Ng is a 39 year old female here today for Recheck (MD follow up per Domitila for Constipation, Nausea and Abdominal Pain ) Yamil Ng is a 39-year-old female with a history of chronic constipation and heartburn, presenting for evaluation of worsening abdominal pain, nausea, and anorexia. Recording using [employer] software for draft documentation of the visit was discussed with the patient/authorized reimbursement representative; all questions welcomed and answered. Patient/authorized reimbursement representative agreed to proceed Abdominal Pain and Nausea: - Yamil Ng has chronic abdominal pain and nausea, worsening postprandially. - Describes pain as feeling like the stomach is being squeezed. - Experiences early satiety; eating even small amounts causes significant discomfort. - Recent upper endoscopy was normal, including biopsies of the esophagus, stomach, and duodenum. - Reports that symptoms have worsened since the endoscopy. - CT scan showed no acute findings; a small ovarian cyst was noted. - Denies relief from omeprazole or Carafate. - Has a gastric emptying test ordered by a blacksmith hammer operator but not yet completed. Anorexia: - Decreased appetite due to fear of pain and discomfort after eating. - Currently eating only once a day due to pain and nausea. - Reports no desire to eat and sometimes forces herself to eat despite discomfort. Chronic Constipation: - Yamil has a longstanding history of constipation, worsening over time. - Bowel movements every 4-5 days, sometimes requiring straining. - Stool consistency varies, often described as type 4-5 on the [place] Stool Scale. - Reports a sensation of incomplete evacuation. - Uses Dulcolax PRN; denies regular use of magnesium or Miralax. - Drinks water frequently. - Uses a stool to assist with bowel movements. Surgical History: - Four C-sections. - Laparoscopic-assisted vaginal hysterectomy in August 2023, with a subsequent revision due to bleeding per patient 10/2024 AXR: Constipation. Moderate stool burden. 01/13/2025 CT a/p with IV contrast: IMPRESSION: No acute findings in the abdomen and pelvis. Corpus luteum cyst in the left ovary. Trace free fluid in the pelvis likely physiologic. EGD and Colonoscopy: - Normal esophagus. - Normal stomach. Biopsied. - Normal examined duodenum. Biopsied. - The examined portion of the ileum was normal. - One 2 mm polyp in the cecum, removed with a cold biopsy forceps. Resected and retrieved. - The examination was otherwise normal on direct and retroflexion views. A. Duodenum, biopsy: - Small bowel mucosa with no diagnostic abnormality. B. Stomach, biopsy: - Gastric antral-type mucosa with chronic inactive gastritis, reactive gastropathy, and intestinal metaplasia, negative for dysplasia. 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 - See comment. C. Cecal polyp, biopsy: - Colonic mucosa with minimal hyperplastic changes. - See comment. B. Given the presence of chronic gastritis and intestinal metaplasia, immunohistochemical stains have been performed on block B1. An immunohistochemical stain for Helicobacter pylori organisms is negative. A gastrin stain confirms the presence of separate fragments of antral-type and oxyntic-type mucosa. A synaptophysin stain highlights areas of linear and micronodular ECL cell hyperplasia. While the presence of ECL cell hyperplasia raises the possibility of an early/evolving autoimmune gastritis, it can also be seen in the setting of chronic PPI therapy. Correlation with clinical, endoscopic, and other laboratory findings (e.g., serum gastrin and vitamin B12 levels, testing for anti-parietal cell and anti-intrinsic factor autoantibodies) may be helpful if indicated. C. There is no evidence of dysplasia, including on multiple additional deeper levels. IF AB, iron studies, folate, parietal cell antibodies, vitamin B12 normal Gastrin elevated on PPI Lipase normal 01/2025 GES: ordered not completed Current Outpatient Medications Medication Sig lacosamide (VIMPAT) 150 mg tab Take 1 tablet by mouth two times a day for 180 days. levETIRAcetam (KEPPRA) 1,000 mg tablet Take 1 tablet by mouth two times a day. ondansetron orally disintegrating (ZOFRAN ODT) 4 mg disintegrating tablet dissolve one tablet on the tongue every 8 hours as needed for nausea clobetasol (TEMOVATE) 0.05 % cream Apply to affected area twice daily Saturday-Saturday. Take weekends off. Do not use on face, armpits, neck, or groin. (more content not included)... [facility] 02-11-2025 Progress note Formatting of t his note might be different from the original. Per Dr. Maria: Elevated gastrin levels and path consistent with chronic PPI therapy. [facility] 02-11-[address] Maria: Elevated gastrin levels and path consistent with chronic PPI therapy. documented in this encounter [facility] 02-10-2025 History of Present illness Narrative Radiology Service Progress Note PATIENT NAME: Yamil Ng DATE OF SERVICE: February 10, 2025 TIME: 10:16 AM PATIENT IDENTITY VERIFICATION COMPLETED USING TWO (2) IDENTIFIERS: Name and Date of confirmed by patient verbally. FALL SCREENING: Has the patient had 2 falls in the last year or 1 fall with injury or currently using an Ambulatory Assistive Device (Walker, Cane, Wheelchair, Crutches, etc.)? No PATIENT GENDER DATA: Assigned female at . status: : No status: NO. PATIENT RELEVANT IMPLANT DATA REVIEWED: Yes PATIENT PRESENTS WITH AN IMPLANTABLE OR ATTACHED INFORMATION TECHNOLOGY INSTRUCTOR: No RADIOLOGY DEPARTMENT: General X-ray: Exam(s) Completed: Spine X-Ray(s): Cervical FLEX/EXT, Thoracic, and Lumbar AP/LAT PERIPHERAL IV DATA: Not applicable SIGNED BY: RT Pola(Alice) February 10, 2025 10:16 AM documented in this encounter [facility] 02-10-2025 Note HNO ID: [id number] Author: SARBJIT UMANZOR RT(R) Service: ? Author Type: Corporate Sales Manager Type: Progress Notes Filed: 02/10/2025 10:32 Note Text: Radiology Service Progress Note PATIENT NAME: Yamil Ng DATE OF SERVICE: February 10, 2025 TIME: 10:16 AM PATIENT IDENTITY VERIFICATION COMPLETED USING TWO (2) IDENTIFIERS: Name and Date of confirmed by patient verbally. FALL SCREENING: Has the patient had 2 falls in the last year or 1 fall with injury or currently using an Ambulatory Assistive Device (Walker, Cane, Wheelchair, Crutches, etc.)? No PATIENT GENDER DATA: Assigned female at . status: : No status: NO. PATIENT RELEVANT IMPLANT DATA REVIEWED: Yes PATIENT PRESENTS WITH AN IMPLANTABLE OR ATTACHED INFORMATION TECHNOLOGY INSTRUCTOR: No RADIOLOGY DEPARTMENT: General X-ray: Exam(s) Completed: Spine X-Ray(s): Cervical FLEX/EXT, Thoracic, and Lumbar AP/LAT PERIPHERAL IV DATA: Not applicable SIGNED BY: RT Pola(Alice) February 10, 2025 10:16 AM [facility] 02-10-2025 Instructions Williams Barton MD - 02/10/2025 8:39 AM EDT We discussed your symptoms and concerns during today s visit. Below is a summary of our discussion and the next steps: We discussed your gastrointestinal symptoms, including early satiety, nausea, vomiting, and reflux: - I recommend a gastric motility study to evaluate how your stomach processes food. This test involves eating a meal with a tracer to measure how long food stays in your stomach. I can order this test for you, or your service operations manager can order it during your upcoming appointment on Saturday. Please let me know your preference. - Continue following up with your service operations manager for management of these symptoms. They will review your recent test results and guide further treatment. We discussed your joint pain and stiffness: - Your joint pain and morning stiffness (lasting about 1.5 hours) do not appear to be caused by an autoimmune condition. Instead, they are likely related to mechanical issues, including posture and back alignment. - I recommend x-rays of your back to evaluate the curvature and alignment, as I noted increased curvature (lordosis and kyphosis) during the exam. This may be contributing to your joint and muscle pain. - Physical therapy will be important to strengthen your muscles, improve posture, and reduce pain. This will likely need to be a long-term part of your routine. I will provide a referral for physical therapy. We discussed your rash and skin changes: - The rash you experienced earlier this year, which left areas of darkened skin, does not appear to be related to an autoimmune condition. It is more likely a reaction to medication or another temporary trigger. - No further treatment is needed for the rash at this time unless it recurs. We discussed your history of anemia: - Your anemia has improved since your hysterectomy, and your blood counts appear stable. No additional treatment is needed at this time. We discussed your back pain and posture: - Your back pain and posture issues are likely contributing to your joint and muscle discomfort. I recommend wearing supportive shoes to improve your posture and reduce strain on your back and knees. Avoid shoes that are overly flexible or worn out, as they do not provide adequate support. Next steps: - Follow up with your service operations manager on Saturday to discuss your symptoms and test results. Let me know if you would like me to order the gastric motility study to expedite the process. - Schedule x-rays of your back to evaluate the curvature and alignment. - Begin physical therapy to address posture, strengthen muscles, and reduce pain. I will provide a referral. - Replace your current shoes with supportive footwear to improve posture and reduce strain on your joints. Please contact me if you have any questions or if your symptoms worsen. documented in this encounter [facility] 02-10-2025 Note HNO ID: [id number] Author: WILLIAMS BARTON MD Service: ? Author Type: Physician Type: Progress Notes Filed: 02/10/2025 09:00 Note Text: Rheumatology CONSULTATION Date of Service: 02/10/2025 Patient: Yamil Ng Medical Record: [id number] Primary Care Physician: Adrianne Ignacio MD Last Rheumatology visit: None at [facility] Referring Provider: Domitila Galicia [id number] [place] [id number] Yamil Ng is here today at request of Dr. Domitila Galicia specifically for consultation of my opinion in regards to the chief complaint listed below. Correspondence will be shared today via the [facility] electronic health record or through regular mail, where applicable. HPI Yamil Ng is a 39-year-old female with a history of epilepsy, presenting for evaluation of joint pain, stiffness, and gastrointestinal issues. Yamil reports worsening joint pain and stiffness over the past several months, primarily affecting her hips, knees, and shoulders. The pain is described as shooting and is most severe in the mornings, lasting approximately 1.5 hours. She notes that her shoulders are super stiff upon waking, and her hips and knees are the most painful areas. The pain worsens with activity, such as lifting and moving, and occasionally wakes her at night. She also experiences random episodes of her hands releasing objects, which she attributes to overuse, but denies significant pain in her elbows or wrists. She denies any noticeable color changes in her fingers when exposed to cold temperatures. She has a history of knee surgery on one knee and reports swelling in both knees after activity. Her ankles swell after long days, typically 11-12 hours of standing or walking. She denies any warmth in her joints and notes that [id number] medications like Tylenol or ibuprofen do not alleviate her pain. She has not taken steroids for her symptoms. Yamil also reports gastrointestinal issues, including early satiety and nausea, which have worsened over the past 6 months. She experiences a sensation of fullness after eating small amounts, sometimes as little as half a child's portion, and occasionally vomits after eating, particularly with foods like grilled chicken. She has a long-standing history of acid reflux, which worsened after her last 8 years ago. She has tried various medications, including Pepcid and Prilosec, without relief. She denies significant weight loss but notes fluctuations between 140-158 lbs. She reports chronic constipation, with bowel movements occurring every 2-4 days, and occasional difficulty swallowing, though not consistently with any specific type of food. Approximately 6-8 months ago, she developed a rash that began on the inner thigh and spread to her abdomen and upper arms. The rash lasted about 5 weeks and was treated with topical creams, with the second cream providing relief. The rash left areas of hyperpigmentation, particularly under her breast. She denies current use of antihistamines and has not noticed any new rashes. She does report facial flushing, particularly when overheated. She has a history of anemia, which improved after a hysterectomy in July 2022. She denies current hair loss or changes. She has had multiple episodes of strep throat over the past year but denies recent COVID-19 infections. 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 She denies any ulcers in her mouth or nose and has not noticed any swelling of lymph nodes outside of strep infections. She denies chest pain with deep breaths or at rest. She has a family history of fibromyalgia in her sister but denies a personal history of fibromyalgia. She has not been diagnosed with scoliosis and has not had recent back X-rays. Pain Evaluation 01/13/2025 01/13/2025 01/15/2025 02/09/2025 02/10/2025 Pain Evaluation Pain Score 0 0 2 4 2 Location Abdomen Abdomen-Mid Upper Description Burning Duration (Timeframe) Months Frequency Continuous Continuous Intervention Education Rheum/Ortho Arthrocentesis Injections (last 5) 11/09/2020 15:30 01/05/2025 16:22 Injection History Medication 5 mL NaCl (PF) 0.9% 12 mg betamethasone acetate-betamethasone sodium phosphate 6 mg/mL Location knee knee Knee Site R knee joint R knee joint Patient-Entered Data PROMIS Assessments 08/26/2024 12/30/2024 02/09/2025 PROMIS Global Health - (T-Scores - the mean of general population = 50. Five points is a clinically meaningful difference.) Physical T-Score 34.9 34.9 37.4 37.4 34.9 Mental T-Score 43.5 43.5 41.1 41.1 41.1 08/26/2024 12/30/2024 02/09/2025 PROMIS CAT Pain Interference PROMIS Pain Interference T-Score (range: 10 - 90) 67 (moderate) PROMIS Pain Interference Percentile 4 PROMIS Adult Short Form-Global Health Score (Mental) 43.5 (Good) 41.1 (Good) 41.1 (Good) 09/27/2020 03/29/2021 02/09/2025 PROMIS CAT Fatigue PROMIS Fatigue (more content not included)... [facility] 02-10-2025 History of Present illness Narrative Images from the original note were not included. Rheumatology CONSULTATION Date of Service: 02/10/2025 Patient: Yamil Ng Medical Record: [id number] Primary Care Physician: Adrianne Ignacio MD Last Rheumatology visit: None at [facility] Referring Provider: Domitila Galicia [id number] [facility] [place] [facility] [id number] Yamil Ng is here today at request of Dr. Domitila Galicia specifically for consultation of my opinion in regards to the chief complaint listed below. Correspondence will be shared today via the [facility] electronic health record or through regular mail, where applicable. HPI Yamil Ng is a 39-year-old female with a history of epilepsy, presenting for evaluation of joint pain, stiffness, and gastrointestinal issues. Yamil reports worsening joint pain and stiffness over the past several months, primarily affecting her hips, knees, and shoulders. The pain is described as shooting and is most severe in the mornings, lasting approximately 1.5 hours. She notes that her shoulders are super stiff upon waking, and her hips and knees are the most painful areas. The pain worsens with activity, such as lifting and moving, and occasionally wakes her at night. She also experiences random episodes of her hands releasing objects, which she attributes to overuse, but denies significant pain in her elbows or wrists. She denies any noticeable color changes in her fingers when exposed to cold temperatures. She has a history of knee surgery on one knee and reports swelling in both knees after activity. Her ankles swell after long days, typically 11-12 hours of standing or walking. She denies any warmth in her joints and notes that crub-sco-acsgkhe medications like Tylenol or ibuprofen do not alleviate her pain. She has not taken steroids for her symptoms. Yamil also reports gastrointestinal issues, including early satiety and nausea, which have worsened over the past 6 months. She experiences a sensation of fullness after eating small amounts, sometimes as little as half a child's portion, and occasionally vomits after eating, particularly with foods like grilled chicken. She has a long-standing history of acid reflux, which worsened after her last 8 years ago. She has tried various medications, including Pepcid and Prilosec, without relief. She denies significant weight loss but notes fluctuations between 140-158 lbs. She reports chronic constipation, with bowel movements occurring every 2-4 days, and occasional difficulty swallowing, though not consistently with any specific type of food. Approximately 6-8 months ago, she developed a rash that began on the inner thigh and spread to her abdomen and upper arms. The rash lasted about 5 weeks and was treated with topical creams, with the second cream providing relief. The rash left areas of hyperpigmentation, particularly under her breast. She denies current use of antihistamines and has not noticed any new rashes. She does report facial flushing, particularly when overheated. She has a history of anemia, which improved after a hysterectomy in July 2022. She denies current hair loss or changes. She has had multiple episodes of strep throat over the past year but denies recent COVID-19 infections. 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 She denies any ulcers in her mouth or nose and has not noticed any swelling of lymph nodes outside of strep infections. She denies chest pain with deep breaths or at rest. She has a family history of fibromyalgia in her sister but denies a personal history of fibromyalgia. She has not been diagnosed with scoliosis and has not had recent back X-rays. Pain Evaluation 01/13/2025 01/13/2025 01/15/2025 02/09/2025 02/10/2025 Pain Evaluation Pain Score 0 0 2 4 2 Location Abdomen Abdomen-Mid Upper Description Burning Duration (Timeframe) Months Frequency Continuous Continuous Intervention Education Rheum/Ortho Arthrocentesis Injections (last 5) 11/09/2020 15:30 01/05/2025 16:22 Injection History Medication 5 mL NaCl (PF) 0.9% 12 mg betamethasone acetate-betamethasone sodium phosphate 6 mg/mL Location knee knee Knee Site R knee joint R knee joint Patient-Entered Data PROMIS Assessments 08/26/2024 12/30/2024 02/09/2025 PROMIS Global Health - (T-Scores - the mean of general population = 50. Five points is a clinically meaningful difference.) Physical T-Score 34.9 34.9 37.4 37.4 34.9 Mental T-Score 43.5 43.5 41.1 41.1 41.1 08/26/2024 12/30/2024 02/09/2025 PROMIS CAT Pain Interference PROMIS Pain Interference T-Score (range: 10 - 90) 67 (moderate) PROMIS Pain Interference Percentile 4 PROMIS Adult Short Form-Global Health Score (Mental) 43.5 (Good) 41.1 (Good) 41.1 (Good) 09/27/2020 03/29/2021 02/09/2025 PROMIS CAT Fatigue PROMIS Fatigue T-Score 57 (mild) 59 (mild) 74 (severe) PROMIS Fatigue Percentile 24 18 1 06/03/2023 12/30/2024 02/09/2025 PROMIS PHYSICAL FUNCTION T-SCORE PROMIS Physical Function T-Score 39 (moderate dysfunction) 43 (mild dysfunction) 43 (mild dysfunction) Physical Function Percentile 14 24 24 RAPID 3 Bhat Activities of Daily Living 02/09/2025 2:30 PM Dress self? With SOME difficulty Get in and out of bed? With SOME difficulty Walk outdoors? With SOME difficulty Wash and dry body? Without ANY difficulty Get in and out of car? With SOME difficulty RAPID 3 Disease Activity Weighed Score Levels: 0 - 1: Near Remission 1.3 - 2.0: Low Severity 2.3 - 4.0: Moderate Severity 4.3 - 10.0: High Severity 02/09/2025 RAPID-3 Weighed Score RAPID 3 Weighed Score 4.94 (High severity ) Review of Systems Review of Systems CONSTITUTION: Negative for: Fever and Recent weight change HEENT: Positive for: Trouble swallowing Negative for: Nosebleeds, Mouth sores and Dry mouth RESPIRATORY: Positive for: Cough Negative for: Shortness of breath and Pain with breathing GASTROINTESTINAL: Positive for: Heartburn and Abdominal pain Negative for: Melena and Diarrhea MUSCULOSKELETAL: Positive for: Arthralgias, Myalgias, Muscle weakness and Morning Joint Stiffness Negative for: Joint swelling NEUROLOGICAL: Positive for: Headaches and Memory loss Negative for: Numbness SKIN: Positive for: Skin changes Negative for: Rash, Hair loss and Nail changes EYES: Positive for: Eye pain, Eye dryness and Visual disturbance Negative for: Eye redness CARDIOVASCULAR: Positive for: Leg swelling Negative for: Chest pain GENITOURINARY: Negative for: Dysuria and Hematuria HEMATOLOGIC/LYMPHATIC: Past Medical History PAST MEDICAL HISTORY Diagnosis Date Anemia Complication of anesthesia nausea and vomiting Episode of recurrent major depressive disorder 08/28/2018 Family history of epilepsy aunt Hepatic hemangioma 01/20/2024 Hepatitis in viral diseases classified elsewhere(573.1) when she had mono Ovarian cyst 2004 [facility] - PAST MEDICAL HISTORY OF Right Sciatica Seizure disorder (HCC) 02/04/2018 Vaginal hematoma Past Surgical History PAST SURGICAL HISTORY Procedure Laterality Date DELIVERY ONLY , low cervical x4 DELIVERY ONLY 10/14/2016 COLPOSCOPY CERVIX VAG LOOP ELTRD BX CERVIX 2020 EXCISION GANGLION WRIST DORSAL/VOLAR PRIMARY Right HYSTEROSCOPY ENDOMETRIAL ABLATION N/A 02/28/2023 KNEE SURGERY HX Right shaved patella and removed fat pad LAP HYSTERECTOMY FOR UTERUS 250G OR LESS 09/04/2023 LIG/TRNSXJ FLP TUBE ABDL/VAG APPR UNI/BI Bilateral 10/14/2016 VAGINAL CUFF REPAIR 09/22/2023 exam under anesthesia, pelvic irrigation and insertion of intraabdominal drain Family History FAMILY HISTORY Problem Relation Age of Onset Hypertension Father Diabetes Father Hyperlipidemia Father Cataract Father other (Diverticulosis) Father other (FIBROMYALGIA) Sister Pancreatitis Sister Cancer Maternal Grandmother Breast Cancer Paternal Grandmother Heart Paternal Grandmother Stroke Paternal Grandfather Diabetes Maternal Aunt Anesthesia Problems No Family History Clotting Disorder No Family History Malig Hyperthermia No Family History Colon Cancer No Family History Social History SOCIAL HISTORY[1] Current Medications Current Outpatient Medications Medication Sig lacosamide (VIMPAT) 150 mg tab Take 1 tablet by mouth two times a day for 180 days. levETIRAcetam (KEPPRA) 1,000 mg tablet Take 1 tablet by mouth two times a day. ondansetron orally disintegrating (ZOFRAN ODT) 4 mg disintegrating tablet dissolve one tablet on the tongue every 8 hours as needed for nausea hydrOXYzine HCl (ATARAX) 25 mg tablet Take 1-2 tablets by mouth at bedtime. Can cause drowsiness. clobetasol (TEMOVATE) 0.05 % cream Apply to affected area twice daily Saturday-Saturday. Take weekends off. Do not use on face, armpits, neck, or groin. Clobetasol Propionate (TEMOVATE) 0.05 % external solution Apply to affected areas on scalp twice daily Saturday-Saturday, take weekends off. May repeat as needed. triamcinolone acetonide (KENALOG) 0.1 % cream Apply to affected areas twice daily for 2 weeks. rizatriptan (MAXALT) 10 mg tablet Take 1 tablet (10 mg) by mouth as needed (at onset of headache. May repeat after 2 hours.). Do not exceed 30 mg per day. pantoprazole DR (PROTONIX) 40 mg tablet Take 1 tablet by mouth two times a day. (Patient not taking: Reported on 02/10/2025) Labs Latest Ref Rng & Units 12/25/2023 10/26/2024 01/09/2025 01/15/2025 CBC WBC 3.70 - 11.00 k/uL 7.12 7.65 7.23 8.16 Hemoglobin 11.5 - 15.5 g/dL 14.6 14.7 14.2 13.5 Hematocrit 36.0 - 46.0 % 45.6 43.1 42.0 40.2 Platelet Count 150 - 400 k/uL 301 341 301 281 Abs Neut (ANC) 1.45 - 7.50 k/uL 4.18 4.23 5.04 Abs Lymph 1.00 - 4.00 k/uL 2.22 2.66 2.39 Latest Ref Rng & Units 12/25/2023 10/26/2024 01/09/2025 01/15/2025 CMP Sodium 136 - 144 mmol/L 137 138 139 137 Potassium 3.7 - 5.1 mmol/L 4.6 4.6 4.2 3.6 Chloride 98 - 107 mmol/L 101 102 102 102 CO2 22 - 30 mmol/L 25 26 23 24 Glucose 74 - 99 mg/dL 81 86 79 87 BUN 7 - 21 mg/dL 19 13 15 11 Creatinine 0.58 - 0.96 mg/dL 0.88 0.92 0.87 0.94 Calcium 8.5 - 10.2 mg/dL 9.9 9.6 9.7 9.8 AST 13 - 35 U/L 25 22 24 16 ALT 7 - 38 U/L 18 11 16 11 Alkaline Phosphatase 34 - 123 U/L 63 57 53 55 Latest Ref Rng & Units 11/13/2011 ESR, WSR WSR 0 - 15 mm/hr 7 Latest Ref Rng & Units 11/13/2011 RF and CCP Rheumatoid Factor <20 IU/mL <7 Latest Ref Rng & Units 06/09/2008 04/16/2016 Hepatitis Screen Hep B Surface Ag Negative Negative Negative Latest Ref Rng & Units 12/28/2009 11/13/2011 01/19/2025 Antibodies BONNIE Negative Positive BONNIE by EIA <1.5 OD Ratio 1.0 BONNIE Titer 1:160 BONNIE Pattern Nuclear fine speckled DNA Antibody <=200 IU/mL 20 Anti-Sm <1.0 AI <0.2 Sm Antibody Negative Negative Ribosomal STOCK PARTS FABRICATOR Ab <1.0 AI <0.2 Ribosomal STOCK PARTS FABRICATOR Qualitative Negative Negative Chromatin Ab <1.0 AI <0.2 Chromatin Ab Qual Negative Negative SSA Antibody Qual Negative Negative Anti-SSA <1.0 AI <0.2 Anti-SSB <1.0 AI <0.2 STOCK PARTS FABRICATOR Antibody QUAL Negative Negative Scleroderma Ab Qual Negative Negative Scl-70 Abs, EIA <1.0 AI <0.2 Centromere Ab <1.0 AI <0.2 CENTROMERE AB QUAL Negative Negative RABIA-1 ANTIBODY, IGG <1.0 AI <0.2 RABIA 1 ANTIBODY QUAL Negative Negative PT Sec 8.4 - 13.0 sec 10.0 PT INR 0.8 - 1.2 0.9 APTT 23.0 - 32.4 sec 28.7 Latest Ref Rng & Units 07/31/2022 07/16/2024 08/22/2024 01/15/2025 Urinalysis Protein, Urine Negative Negative Negative PROTEIN UA (POCT) Negative mg/dL Negative 100 RBC, Urine 0-3 /HPF 0-3 /HPF 0-3 /HPF Imaging Last XR Chest - Impression Only XR CHEST 2V FRONTAL/LAT Exam End: 04/29/2024 12:40 PM (Final result) Impression: IMPRESSION: No acute radiographic abnormality. ... Physical Exam Constitutional: - Appearance: Normal appearance. No acute distress. HENT: - Head: Atraumatic. - Eyes: - Extraocular Movements: Extraocular movements intact. - Conjunctiva/sclera: Conjunctivae normal. - Pupils: Pupils are equal, round, and reactive to light. Cardiovascular: - Rate and Rhythm: Normal rate and regular rhythm. - Pulses: Normal pulses. - Heart sounds: Normal heart sounds. Pulmonary: - Breath sounds: Normal breath sounds. Musculoskeletal: - Cervical back: Normal range of motion. - Thoracolumbar back: Increased lumbar lordosis, increased thoracic kyphosis. - Gait: Wide-based gait. - No peripheral synovitis - Shoulders FROM no effusion - Elbows FROM no effusion - Wrists FROM no effusion - Hands good electrotyper helper, MCP, PIP, DIP no swelling or tenderness - Hips FROM - Knees FROM no effusion, bilateral crepitus - Ankles FROM no effusion - Feet no MTP squeeze tenderness Skin: - General: Skin is warm and dry. Neurological: - General: No focal deficit present. Psychiatric: - Mood and Affect: Mood normal. - Behavior: Behavior normal. 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 Clinically, there is no suspicion for a specific rheumatic condition disease. Thorough review of systems was not positive for the signs or symptoms associated with any of these diagnoses, including no photosensitivity, oral ulcers, malar rash, discoid skin changes, alopecia, serositis, kidney involvement, (lupus), no muscular weakness, fatigue, rashes (myositis), Raynaud's no skin tightening/skin thickening, nail changes, telangiectasias, significant shortness of breath, or GERD (scleroderma), no dry eyes or dry mouth (Sjogrens), no morning stiffness or synovitis (RA) - Educated patient on the low likelihood of systemic autoimmune disease based on current findings. - Advised to report any new or recurrent symptoms suggestive of autoimmune disease, such as Raynaud's phenomenon or persistent rash. # Nausea and vomiting, unspecified vomiting type (R11.2) # Nausea (R11.0) # Dyspepsia (R10.13) Chronic nausea, vomiting, and dyspepsia with early satiety and reflux symptoms, unresponsive to multiple acid-suppressing medications; prior endoscopy and colonoscopy unremarkable except for polyp removal. - Order gastric emptying study to evaluate for gastroparesis or other motility disorders. - Advised patient to follow up with GI specialist for ongoing management. # Lordosis (M40.50) # Postural kyphosis, unspecified spinal region (M40.00) Mechanical musculoskeletal pain likely secondary to postural abnormalities, including increased lumbar lordosis and upper thoracic kyphosis, contributing to back, hip, and knee pain. - Order spinal X-rays to further evaluate spinal curvature. - Refer to physical therapy for postural correction and strengthening exercises. - Advised patient on the importance of proper footwear and maintaining an exercise routine to support musculoskeletal health. I spent a total of 55 minutes on the date of the service which included preparing to see the patient, [id number] patient care, completing clinical documentation, obtaining and/or reviewing separately obtained history, performing a medically appropriate examination, counseling and educating the patient/family/caregiver, ordering medications, tests, or procedures, communicating with other HCPs (not separately reported), independently interpreting results (not separately reported), communicating results to the patient/family/caregiver, and care coordination (not separately reported). Orders this visit: Office Visit on 02/10/25 NM GASTRIC EMPTYING SOLID XR CERVICAL 2V FLEX/EXT XR THORACIC LIMITED 2V AP/LAT XR LUMBAR LIMITED 2V AP/LAT CONSULT TO RHEUM/IMMUN DISEASE No follow-ups on file. Williams Barton MD Associate Staff Department of Rheumatic and Immunological Diseases Office number: [phone] - Fax number: [phone] - Appointment: [phone] [1] Social History Tobacco Use Smoking status: Never Smokeless tobacco: Never Vaping Use Vaping status: Never Used Substance Use Topics Alcohol use: Yes Comment: occasional Drug use: No documented in this encounter [facility] 01-19-2025 Progress note Formatting of t his note might be different from the original. January 19, 2025 3:59 PM Work up ordered for suspected autoimmune gastritis. GASTRIN BLD; Future VITAMIN B12; Future GASTRIC PARIETAL CELL IGG SERUM; Future INTRINSIC FACTOR BLOCKING AB; Future IRON AND TIBC; Future FERRITIN; Future FOLATE, SERUM; Future BONNIE BY IFA WITH REFLEX; Future SCOTTY Tobias, BLOCKLAYER- PROPERTY ADMINISTRATOR-C Certified Nurse Practitioner [facility] Gastroenterology Office [facility] 01-19-2025 Miscellaneous Notes January 19, 2025 3:59 PM Work up ordered for suspected autoimmune gastritis. GASTRIN BLD; Future VITAMIN B12; Future GASTRIC PARIETAL CELL IGG SERUM; Future INTRINSIC FACTOR BLOCKING AB; Future IRON AND TIBC; Future FERRITIN; Future FOLATE, SERUM; Future BONNIE BY IFA WITH REFLEX; Future SCOTTY Tobias, BLOCKLAYER- PROPERTY ADMINISTRATOR-C Certified Nurse Practitioner 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 I would like to do some blood work for further assessment of a possible autoimmune gastritis. Please go to a [facility] lab to get these done as soon as you can. Domitila Bernabe MSN, BLOCKLAYER- PROPERTY ADMINISTRATOR-C Certified Nurse Practitioner [facility] Gastroenterology Office documented in this encounter [facility] 01-19-2025 Progress note Formatting of t his note might be different from the original. 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 I would like to do some blood work for further assessment of a possible autoimmune gastritis. Please go to a [facility] lab to get these done as soon as you can. Domitila Bernabe MSN, BLOCKLAYER- PROPERTY ADMINISTRATOR-C Certified Nurse Practitioner [facility] Gastroenterology Office [facility] 01-15-2025 Telephone encounter Note Patient called in because she has been having trouble eating since scopes. She is able to eat a half cup of mashed potatoes with some broth for taste. She feels very full after eating that little bit. Some nausea and no vomiting. She has no issues keeping down fluids or painful swallowing. Patient aware that the biopsies are still in process. No chest pains, Shortness of Breath or bleeding. Please advise thank you [facility] 01-15-2025 Miscellaneous Notes Patient called in because she has been having trouble eating since scopes. She is able to eat a half cup of mashed potatoes with some broth for taste. She feels very full after eating that little bit. Some nausea and no vomiting. She has no issues keeping down fluids or painful swallowing. Patient aware that the biopsies are still in process. No chest pains, Shortness of Breath or bleeding. Please advise thank you documented in this encounter [facility] 01-15-2025 Miscellaneous Notes Yamil called in to the Endoscopy nurse line. Shared that she had EGD and Colonoscopy this past Saturday. She states she has not been able to eat anything since procedure without throwing up. She is having extreme nausea. She also states bloated and fullness after just small bites of anything. She did state she previously had nausea and part of the reason for why this procedure had been done, but that this nausea is worse than before. She has only tried light things like chicken soup and mashed potatoes. Instructed to run by her GI [facility], but that from post endoscopy procedure, we would recommend visit to the ER for evaluation. She was transferred to office side to get message to the [facility], but was instructed that if she was not able to get information to the [facility], she should report to the ER. She verbalizes understanding. documented in this encounter [facility] 01-15-2025 Telephone encounter Note Yamil called in to the Endoscopy nurse line. Shared that she had EGD and Colonoscopy this past Saturday. She states she has not been able to eat anything since procedure without throwing up. She is having extreme nausea. She also states bloated and fullness after just small bites of anything. She did state she previously had nausea and part of the reason for why this procedure had been done, but that this nausea is worse than before. She has only tried light things like chicken soup and mashed potatoes. Instructed to run by her GI [facility], but that from post endoscopy procedure, we would recommend visit to the ER for evaluation. She was transferred to office side to get message to the [facility], but was instructed that if she was not able to get information to the [facility], she should report to the ER. She verbalizes understanding. [facility] 01-14-2025 Telephone encounter Note Pt notified and verbalized understanding Reigne Gaffney MA [facility] 01-14-2025 Miscellaneous Notes Pt notified and verbalized understanding Regine Gaffney MA ----- Message from Adrianne Ignacio MD sent at 01/13/2025 11:55 AM EDT ----- Negative mammogram. Repeat in 1 year. Mychart message sent to patient- will leave encounter open until pt views Regine Gaffney MA ----- Message from Adrianne Ignacio MD sent at 01/13/2025 11:55 AM EDT ----- Negative mammogram. Repeat in 1 year. documented in this encounter [facility] 01-14-2025 Telephone encounter Note ----- Message from Adrianne Ignacio MD sent at 01/13/2025 11:55 AM EDT ----- Negative mammogram. Repeat in 1 year. [facility] 01-13-2025 Telephone encounter Note Mychart message sent to patient- will leave encounter open until pt views Regine Gaffney MA [facility] 01-13-2025 Telephone encounter Note ----- Message from Adrianne Ignacio MD sent at 01/13/2025 11:55 AM EDT ----- Negative mammogram. Repeat in 1 year. [facility] 01-13-2025 Note HNO ID: [id number] Author: MALGORZATA ALONSO, RN Service: Nursing Author Type: Registered Nurse Type: Nursing Progress Note Filed: 01/13/2025 10:02 Note Text: Dr. Arce at bedside to go over scope results with patient and patient's family. [facility] 01-13-[address] Arce at bedside to go over scope results with patient and patient's family. [facility] 01-13-[address] Arce at bedside to go over scope results with patient and patient's family. documented in this encounter [facility] 01-13-2025 Note Formatting of this n ote might be different from the original. The patient received a copy of Colonoscopy and EGD discharge instructions that contain information for how to contact the physician who performed the procedure and when to seek medical care. [facility] 01-13-2025 Miscellaneous Notes The patient received a copy of Colonoscopy and EGD discharge instructions that contain information for how to contact the physician who performed the procedure and when to seek medical care. documented in this encounter [facility] 01-13-2025 History and physical note PROCEDURAL SEDATION HISTORY AND PHYSICAL EXAM SERVICE DATE: 01/13/2025 SERVICE TIME: 8:59 AM Subjective HPI: This is a 39 year old female who presents for screening Upper endoscopy and Colonoscopy PAST ANESTHESIA HISTORY: No history of adverse event PAST MEDICAL HISTORY Diagnosis Date Anemia Complication of anesthesia nausea and vomiting Episode of recurrent major depressive disorder 08/28/2018 Family history of epilepsy aunt Hepatic hemangioma 01/20/2024 Hepatitis in viral diseases classified elsewhere(573.1) when she had mono Ovarian cyst 2004 PMH - PAST MEDICAL HISTORY OF Right Sciatica Seizure disorder (HCC) 02/04/2018 Vaginal hematoma PAST SURGICAL HISTORY Procedure Laterality Date DELIVERY ONLY , low cervical x4 DELIVERY ONLY 10/14/2016 COLPOSCOPY CERVIX VAG LOOP ELTRD BX CERVIX 2020 EXCISION GANGLION WRIST DORSAL/VOLAR PRIMARY Right HYSTEROSCOPY ENDOMETRIAL ABLATION N/A 02/28/2023 KNEE SURGERY HX Right shaved patella and removed fat pad LAP HYSTERECTOMY FOR UTERUS 250G OR LESS 09/04/2023 LIG/TRNSXJ FLP TUBE ABDL/VAG APPR UNI/BI Bilateral 10/14/2016 VAGINAL CUFF REPAIR 09/22/2023 exam under anesthesia, pelvic irrigation and insertion of intraabdominal drain Prior to Admission medications as of 01/13/25 0754 Medication Sig Last Dose Taking lacosamide (VIMPAT) 150 mg tab Take 1 tablet by mouth two times a day for 180 days. Unknown levETIRAcetam (KEPPRA) 1,000 mg tablet Take 1 tablet by mouth two times a day. Unknown ondansetron orally disintegrating (ZOFRAN ODT) 4 mg disintegrating tablet dissolve one tablet on the tongue every 8 hours as needed for nausea Unknown pantoprazole DR (PROTONIX) 40 mg tablet Take 1 tablet by mouth two times a day. Unknown hydrOXYzine HCl (ATARAX) 25 mg tablet Take 1-2 tablets by mouth at bedtime. Can cause drowsiness. Unknown clobetasol (TEMOVATE) 0.05 % cream Apply to affected area twice daily Saturday-Saturday. Take weekends off. Do not use on face, armpits, neck, or groin. Unknown Clobetasol Propionate (TEMOVATE) 0.05 % external solution Apply to affected areas on scalp twice daily Saturday-Saturday, take weekends off. May repeat as needed. Unknown triamcinolone acetonide (KENALOG) 0.1 % cream Apply to affected areas twice daily for 2 weeks. Unknown rizatriptan (MAXALT) 10 mg tablet Take 1 tablet (10 mg) by mouth as needed (at onset of headache. May repeat after 2 hours.). Do not exceed 30 mg per day. Unknown topiramate (TOPAMAX) 25 mg tablet Take by mouth. One tablet twice daily for a week; then two tablets twice daily thereafter. ALLERGIES Allergen Reactions Bleach (Sodium Hypo* Rash Lamictal [Lamotrigi* Rash [place] Trees [Trees] Rash, Hives Topiramate Rash Tree And Shrub Poll* Unknown Objective PHYSICAL EXAM: The remainder of the physical exam is noncontributory. GENERAL: Alert, no distress, cooperative SKIN: Skin color, texture, turgor normal. No rashes or lesions. HEAD/SINUSES: No significant findings ABDOMEN: Abdomen soft, non-tender, BS normal, No masses or organomegaly AIRWAY: Mouth opening greater than 3 fingerbreadths: Yes Neck Full Range of Motion: Yes LUNGS: Lungs clear to auscultation CARDIAC: Regular rhythm,Regular rate Assessment/Plan ASA Class: ASA Class: Patient with mild systemic disease Active Problems: * No active hospital problems. * Resolved Problems: * No resolved hospital problems. * Medication and Non-Pharmacologic VTE Prophylaxis/Anticoagulants VTE Prophylaxis: VTE prophylaxis appropriate Provisional Diagnosis/Treatment Plan: EGD and colonoscopy Sedation Goal: Anesthesia SIGNATURE: Coleen Maria MD, MD PATIENT NAME: Yamil Ng DATE: January 13, 2025 TIME: 8:59 AM [facility] Work Phone: 01-13-2025 History and physical note PROCEDURAL SEDATION HISTORY AND PHYSICAL EXAM SERVICE DATE: 01/13/2025 SERVICE TIME: 8:59 AM Subjective HPI: This is a 39 year old female who presents for screening Upper endoscopy and Colonoscopy PAST ANESTHESIA HISTORY: No history of adverse event PAST MEDICAL HISTORY Diagnosis Date Anemia Complication of anesthesia nausea and vomiting Episode of recurrent major depressive disorder 08/28/2018 Family history of epilepsy aunt Hepatic hemangioma 01/20/2024 Hepatitis in viral diseases classified elsewhere(573.1) when she had mono Ovarian cyst 2004 [facility] - PAST MEDICAL HISTORY OF Right Sciatica Seizure disorder (HCC) 02/04/2018 Vaginal hematoma PAST SURGICAL HISTORY Procedure Laterality Date DELIVERY ONLY , low cervical x4 DELIVERY ONLY 10/14/2016 COLPOSCOPY CERVIX VAG LOOP ELTRD BX CERVIX 2020 EXCISION GANGLION WRIST DORSAL/VOLAR PRIMARY Right HYSTEROSCOPY ENDOMETRIAL ABLATION N/A 02/28/2023 KNEE SURGERY HX Right shaved patella and removed fat pad LAP HYSTERECTOMY FOR UTERUS 250G OR LESS 09/04/2023 LIG/TRNSXJ FLP TUBE ABDL/VAG APPR UNI/BI Bilateral 10/14/2016 VAGINAL CUFF REPAIR 09/22/2023 exam under anesthesia, pelvic irrigation and insertion of intraabdominal drain Prior to Admission medications as of 01/13/25 0754 Medication Sig Last Dose Taking lacosamide (VIMPAT) 150 mg tab Take 1 tablet by mouth two times a day for 180 days. Unknown levETIRAcetam (KEPPRA) 1,000 mg tablet Take 1 tablet by mouth two times a day. Unknown ondansetron orally disintegrating (ZOFRAN ODT) 4 mg disintegrating tablet dissolve one tablet on the tongue every 8 hours as needed for nausea Unknown pantoprazole DR (PROTONIX) 40 mg tablet Take 1 tablet by mouth two times a day. Unknown hydrOXYzine HCl (ATARAX) 25 mg tablet Take 1-2 tablets by mouth at bedtime. Can cause drowsiness. Unknown clobetasol (TEMOVATE) 0.05 % cream Apply to affected area twice daily Saturday-Saturday. Take weekends off. Do not use on face, armpits, neck, or groin. Unknown Clobetasol Propionate (TEMOVATE) 0.05 % external solution Apply to affected areas on scalp twice daily Saturday-Saturday, take weekends off. May repeat as needed. Unknown triamcinolone acetonide (KENALOG) 0.1 % cream Apply to affected areas twice daily for 2 weeks. Unknown rizatriptan (MAXALT) 10 mg tablet Take 1 tablet (10 mg) by mouth as needed (at onset of headache. May repeat after 2 hours.). Do not exceed 30 mg per day. Unknown topiramate (TOPAMAX) 25 mg tablet Take by mouth. One tablet twice daily for a week; then two tablets twice daily thereafter. ALLERGIES Allergen Reactions Bleach (Sodium Hypo* Rash Lamictal [Lamotrigi* Rash [place] [Trees] Rash, Hives Topiramate Rash Tree And Shrub Poll* Unknown Objective PHYSICAL EXAM: The remainder of the physical exam is noncontributory. GENERAL: Alert, no distress, cooperative SKIN: Skin color, texture, turgor normal. No rashes or lesions. HEAD/SINUSES: No significant findings ABDOMEN: Abdomen soft, non-tender, BS normal, No masses or organomegaly AIRWAY: Mouth opening greater than 3 fingerbreadths: Yes Neck Full Range of Motion: Yes LUNGS: Lungs clear to auscultation CARDIAC: Regular rhythm,Regular rate Assessment/Plan ASA Class: ASA Class: Patient with mild systemic disease Active Problems: * No active hospital problems. * Resolved Problems: * No resolved hospital problems. * Medication and Non-Pharmacologic VTE Prophylaxis/Anticoagulants VTE Prophylaxis: VTE prophylaxis appropriate Provisional Diagnosis/Treatment Plan: EGD and colonoscopy Sedation Goal: Anesthesia SIGNATURE: Coleen Maria MD, MD PATIENT NAME: Yamil Ng DATE: January 13, 2025 TIME: 8:59 AM documented in this encounter [facility] 01-12-2025 History of Present illness Narrative Radiology Service Progress Note PATIENT NAME: Yamil Ng DATE OF SERVICE: January 12, 2025 TIME: 3:56 PM PATIENT IDENTITY VERIFICATION COMPLETED USING TWO (2) IDENTIFIERS: Name and Date of confirmed by patient verbally. FALL SCREENING: Has the patient had 2 falls in the last year or 1 fall with injury or currently using an Ambulatory Assistive Device (Walker, Cane, Wheelchair, Crutches, etc.)? No PATIENT GENDER DATA: Assigned female at . status: : No status: NO. PATIENT RELEVANT IMPLANT DATA REVIEWED: Not Applicable PATIENT PRESENTS WITH AN IMPLANTABLE OR ATTACHED INFORMATION TECHNOLOGY INSTRUCTOR: No RADIOLOGY DEPARTMENT: Mammography PERIPHERAL IV DATA: Not applicable SIGNED BY: Gabe Green January 12, 2025 3:56 PM documented in this encounter [facility] 01-12-2025 Note HNO ID: [id number] Author: KIRT FELIPE Mammo Tech Service: ? Author Type: Technologist Type: Progress Notes Filed: 01/12/2025 15:57 Note Text: Radiology Service Progress Note PATIENT NAME: Yamil Ng DATE OF SERVICE: January 12, 2025 TIME: 3:56 PM PATIENT IDENTITY VERIFICATION COMPLETED USING TWO (2) IDENTIFIERS: Name and Date of confirmed by patient verbally. FALL SCREENING: Has the patient had 2 falls in the last year or 1 fall with injury or currently using an Ambulatory Assistive Device (Walker, Cane, Wheelchair, Crutches, etc.)? No PATIENT GENDER DATA: Assigned female at . status: : No status: NO. PATIENT RELEVANT IMPLANT DATA REVIEWED: Not Applicable PATIENT PRESENTS WITH AN IMPLANTABLE OR ATTACHED INFORMATION TECHNOLOGY INSTRUCTOR: No RADIOLOGY DEPARTMENT: Mammography PERIPHERAL IV DATA: Not applicable SIGNED BY: Krit Felipe Mammo Tech January 12, 2025 3:56 PM [facility] 01-08-2025 Note HNO ID: [id number] Author: PREET VALENTE APRN.TRACK WATCHMAN Service: ? Author Type: Nurse Practitioner Type: Progress Notes Filed: 01/08/2025 15:38 Note Text: Accounts Receivable Executive offered: Patient declinesSarabjit Rodriguez is a 39 year old who presents for an annual gynecologic exam without complaints. Had complications after hysterectomy last year - had cuff hematoma and cuff repair. No concerns now. 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 Carrier History LMP: 07/17/2023 (Exact Date), Hysterectomy Age at Menarche: 10 Age at First : Age at Menopause: Mending Carrier History Comments: Sexual Activity: Yes; Male; hyst Contraception: Surgical, Vasectomy, Tubal Ligation PAST MEDICAL HISTORY Diagnosis Date Anemia Complication of anesthesia nausea and vomiting Episode of recurrent major depressive disorder 08/28/2018 Family history of epilepsy aunt Hepatic hemangioma 01/20/2024 Hepatitis in viral diseases classified elsewhere(573.1) when she had mono Ovarian cyst 2004 PMH - PAST MEDICAL HISTORY OF Right Sciatica Seizure disorder (HCC) 02/04/2018 Vaginal hematoma PAST SURGICAL HISTORY Procedure Laterality Date DELIVERY ONLY , low cervical x4 DELIVERY ONLY 10/14/2016 COLPOSCOPY CERVIX VAG LOOP ELTRD BX CERVIX 2020 EXCISION GANGLION WRIST DORSAL/VOLAR PRIMARY Right HYSTEROSCOPY ENDOMETRIAL ABLATION N/A 02/28/2023 KNEE SURGERY HX Right shaved patella and removed fat pad LAP HYSTERECTOMY FOR UTERUS 250G OR LESS 09/04/2023 LIG/TRNSXJ FLP TUBE ABDL/VAG APPR UNI/BI Bilateral 10/14/2016 VAGINAL CUFF REPAIR 09/22/2023 exam under anesthesia, pelvic irrigation and insertion of intraabdominal drain FAMILY HISTORY Problem Relation Age of Onset Hypertension Father Diabetes Father Hyperlipidemia Father Cataract Father other (Diverticulosis) Father other (FIBROMYALGIA) Sister Pancreatitis Sister Cancer Maternal Grandmother Breast Cancer Paternal Grandmother Heart Paternal Grandmother Stroke Paternal Grandfather Diabetes Maternal Aunt Anesthesia Problems No Family History Clotting Disorder No Family History Malig Hyperthermia No Family History Colon Cancer No Family History SOCIAL HISTORY Social History Tobacco Use Smoking status: Never Smokeless tobacco: Never Vaping Use Vaping status: Never Used Substance Use Topics Alcohol use: Yes Comment: occasional Drug use: No REVIEW OF SYSTEMS Abdomen: No abdominal pain, nausea, vomiting, diarrhea, or constipation. No bloating, early satiety, indigestion, or increased flatulence. Bladder: No dysuria, gross hematuria, urinary frequency, urinary urgency, or incontinence. Breast: No breast lumps, nipple d/c, overlying skin changes, redness or skin retraction. Allergies and current medication updated:Yes SENSITIVE EXAM: The sensitive examination was discussed with the Patient or Patient's Authorized Iron Erector. As applicable, any other physician, advance practice provider, medical student, or other health professional student that will be observing or involved in the sensitive examination for educational or training purposes was discussed with the Patient or Authorized Iron Erector. The Patient or Authorized Iron Erector has agreed to proceed with the sensitive examination. (Sensitive examination includes inspection and/or palpation of the breasts, pelvis, prostate and anorectal regions). EXAM: BP 104/60 Ht 5' 3.504 (1.61m) Wt 153 lb (69.4kg) LMP 07/17/2023 BMI 26.67 kg/(m2). GENERAL: pleasant, female in no apparent distress HEENT: Normocephalic, atraumatic, mucus membranes moist, and no lesions NECK: Supple, full range of motion, no adenopathy, and thyroid normal DERMATOLOGY: Normal, without lesions, non-icteric, and non-hirsute BREAST: soft, non-tender, symmetric, no dominant mass, normal nipple-areolar complex, no lymphadenopathy, and no nipple discharge CHEST: Normal inspiratory effort ABDOMEN: soft, non-tender, and no masses PELVIC: external genitalia normal, normal Bartholin's glands, urethra, [place]'s glands, no vulvar lesions, good vaginal support, physiologic discharge present, normal appearing perineal body and perianal region, cervix surgically absent, vaginal cuff intact and well healed. BIMANUAL: no adnexal masses, non-tender, and uterus surgically absent RECTOVAGINAL: deferred. NEURO: alert and oriented x3,exam grossly non-focal EXTREMITIES: normal ASSESSMENT/PLAN: 1) (more content not included)... [facility] 01-08-2025 History of Present illness Narrative Accounts Receivable Executive offered: Patient declines. Yamil is a 39 year old who presents for an annual gynecologic exam without complaints. Had complications after hysterectomy last year - had cuff hematoma and cuff repair. No concerns now. 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 Carrier History LMP: 07/17/2023 (Exact Date), Hysterectomy Age at Menarche: 10 Age at First : Age at Menopause: Mending Carrier History Comments: Sexual Activity: Yes; Male; hyst Contraception: Surgical, Vasectomy, Tubal Ligation PAST MEDICAL HISTORY Diagnosis Date Anemia Complication of anesthesia nausea and vomiting Episode of recurrent major depressive disorder 08/28/2018 Family history of epilepsy aunt Hepatic hemangioma 01/20/2024 Hepatitis in viral diseases classified elsewhere(573.1) when she had mono Ovarian cyst 2004 PMH - PAST MEDICAL HISTORY OF Right Sciatica Seizure disorder (HCC) 02/04/2018 Vaginal hematoma PAST SURGICAL HISTORY Procedure Laterality Date DELIVERY ONLY , low cervical x4 DELIVERY ONLY 10/14/2016 COLPOSCOPY CERVIX VAG LOOP ELTRD BX CERVIX 2020 EXCISION GANGLION WRIST DORSAL/VOLAR PRIMARY Right HYSTEROSCOPY ENDOMETRIAL ABLATION N/A 02/28/2023 KNEE SURGERY HX Right shaved patella and removed fat pad LAP HYSTERECTOMY FOR UTERUS 250G OR LESS 09/04/2023 LIG/TRNSXJ FLP TUBE ABDL/VAG APPR UNI/BI Bilateral 10/14/2016 VAGINAL CUFF REPAIR 09/22/2023 exam under anesthesia, pelvic irrigation and insertion of intraabdominal drain FAMILY HISTORY Problem Relation Age of Onset Hypertension Father Diabetes Father Hyperlipidemia Father Cataract Father other (Diverticulosis) Father other (FIBROMYALGIA) Sister Pancreatitis Sister Cancer Maternal Grandmother Breast Cancer Paternal Grandmother Heart Paternal Grandmother Stroke Paternal Grandfather Diabetes Maternal Aunt Anesthesia Problems No Family History Clotting Disorder No Family History Malig Hyperthermia No Family History Colon Cancer No Family History SOCIAL HISTORY Social History Tobacco Use Smoking status: Never Smokeless tobacco: Never Vaping Use Vaping status: Never Used Substance Use Topics Alcohol use: Yes Comment: occasional Drug use: No REVIEW OF SYSTEMS Abdomen: No abdominal pain, nausea, vomiting, diarrhea, or constipation. No bloating, early satiety, indigestion, or increased flatulence. Bladder: No dysuria, gross hematuria, urinary frequency, urinary urgency, or incontinence. Breast: No breast lumps, nipple d/c, overlying skin changes, redness or skin retraction. Allergies and current medication updated:Yes SENSITIVE EXAM: The sensitive examination was discussed with the Patient or Patient's Authorized Iron Erector. As applicable, any other physician, advance practice provider, medical student, or other health professional student that will be observing or involved in the sensitive examination for educational or training purposes was discussed with the Patient or Authorized Iron Erector. The Patient or Authorized Iron Erector has agreed to proceed with the sensitive examination. (Sensitive examination includes inspection and/or palpation of the breasts, pelvis, prostate and anorectal regions). EXAM: BP 104/60 Ht 5' 3.504 (1.61m) Wt 153 lb (69.4kg) LMP 07/17/2023 BMI 26.67 kg/(m^2). GENERAL: pleasant, female in no apparent distress HEENT: Normocephalic, atraumatic, mucus membranes moist, and no lesions NECK: Supple, full range of motion, no adenopathy, and thyroid normal DERMATOLOGY: Normal, without lesions, non-icteric, and non-hirsute BREAST: soft, non-tender, symmetric, no dominant mass, normal nipple-areolar complex, no lymphadenopathy, and no nipple discharge CHEST: Normal inspiratory effort ABDOMEN: soft, non-tender, and no masses PELVIC: external genitalia normal, normal Bartholin's glands, urethra, [place]'s glands, no vulvar lesions, good vaginal support, physiologic discharge present, normal appearing perineal body and perianal region, cervix surgically absent, vaginal cuff intact and well healed. BIMANUAL: no adnexal masses, non-tender, and uterus surgically absent RECTOVAGINAL: deferred. NEURO: alert and oriented x3,exam grossly non-focal EXTREMITIES: normal ASSESSMENT/PLAN: 1) Health maintenance: Pap/HPV up to date. Mammogram ordered. 2) Contraception: hysterectomy. Contraceptive options reviewed and information provided. 3) STD screening: Declined STD check. 4) Follow up one year or sooner as needed Preet Valente APRN.TRACK WATCHMAN documented in this encounter [facility] 01-07-2025 Telephone encounter Note AEEG orders were sent to [facility]. Waylon Contreras [facility] 01-07-2025 Miscellaneous Notes AEEG orders were sent to [facility]. Waylon Contreras documented in this encounter [facility] 01-05-2025 Note HNO ID: [id number] Author: ILANA DICKENS PA-C Service: ? Author Type: Physician Cloth Shader Type: Progress Notes Filed: 01/11/2025 07:54 Note Text: Ilana Dickens PA-C Department of Orthopaedics Orthopaedics [address] [address] Dept: [phone] January 05, 2025 SUBJECTIVE: CHIEF COMPLAINT: Knee Pain and Established Patient of the Right Knee HPI: Yamil Ng is a 39-year-old female with a history of knee surgery, presenting for evaluation of worsening right knee pain. Right Knee Pain: - Worsening over time, no recent injury. - Pain rated 2/10 at rest. - Aggravated by movement, especially descending stairs and bending the knee. - Describes a popping sensation, but denies locking or getting physically stuck. - Able to bend the knee fully, but with pain. - No current medication use for pain. - No new numbness or paresthesia down the leg. - History of one injection prior to first knee surgery (plica excision in 2020). Past Medical History: PAST MEDICAL HISTORY Diagnosis Date Anemia Complication of anesthesia nausea and vomiting Episode of recurrent major depressive disorder 08/28/2018 Family history of epilepsy aunt Hepatic hemangioma 01/20/2024 Hepatitis in viral diseases classified elsewhere(573.1) when she had mono PMH - PAST MEDICAL HISTORY OF Right Sciatica Seizure disorder (HCC) 02/04/2018 Past Surgical History: PAST SURGICAL HISTORY Procedure Laterality Date DELIVERY ONLY , low cervical x4 DELIVERY ONLY 10/14/2016 EXCISION GANGLION WRIST DORSAL/VOLAR PRIMARY Right HYSTEROSCOPY ENDOMETRIAL ABLATION N/A 02/28/2023 KNEE SURGERY HX Right shaved patella and removed fat pad LAP HYSTERECTOMY FOR UTERUS 250G OR LESS 09/04/2023 LIG/TRNSXJ FLP TUBE ABDL/VAG APPR UNI/BI Bilateral 10/14/2016 VAGINAL CUFF REPAIR 09/22/2023 exam under anesthesia, pelvic irrigation and insertion of intraabdominal drain Family History: FAMILY HISTORY Problem Relation Age of Onset Hypertension Father Diabetes Father Hyperlipidemia Father Cataract Father other (Diverticulosis) Father other (FIBROMYALGIA) Sister Pancreatitis Sister Cancer Maternal Grandmother Breast Cancer Paternal Grandmother Heart Paternal Grandmother Stroke Paternal Grandfather Diabetes Maternal Aunt Anesthesia Problems No Family History Clotting Disorder No Family History Malig Hyperthermia No Family History Colon Cancer No Family History Social History: Social History Tobacco Use Smoking status: Never Smokeless tobacco: Never Vaping Use Vaping status: Never Used Substance Use Topics Alcohol use: Yes Comment: occasional Drug use: No Medications: Current Outpatient Medications Medication Sig lacosamide (VIMPAT) 150 mg tab Take 1 tablet by mouth two times a day for 180 days. levETIRAcetam (KEPPRA) 1,000 mg tablet Take 1 tablet by mouth two times a day. ondansetron orally disintegrating (ZOFRAN ODT) 4 mg disintegrating tablet dissolve one tablet on the tongue every 8 hours as needed for nausea pantoprazole DR (PROTONIX) 40 mg tablet Take 1 tablet by mouth two times a day. sucralfate (CARAFATE) 1 gram tablet Take 1 tablet by mouth four times daily. hydrOXYzine HCl (ATARAX) 25 mg tablet Take 1-2 tablets by mouth at bedtime. Can cause drowsiness. clobetasol (TEMOVATE) 0.05 % cream Apply to affected area twice daily Saturday-Saturday. Take weekends off. Do not use on face, armpits, neck, or groin. Clobetasol Propionate (TEMOVATE) 0.05 % external solution Apply to affected areas on scalp twice daily Saturday-Saturday, take weekends off. May repeat as needed. triamcinolone acetonide (KENALOG) 0.1 % cream Apply to affected areas twice daily for 2 weeks. rizatriptan (MAXALT) 10 mg tablet Take 1 tablet (10 mg) by mouth as needed (at onset of headache. May repeat after 2 hours.). Do not exceed 30 mg per day. No current facility-administered medications for this visit. Allergies: Bleach (Sodium Hypochlorite), Lamictal [Lamotrigine], [place] Trees [Trees], Topiramate, and Tree And Shrub Pollen ROS: General: negative for fatigue, malaise, weight loss/gain Musculoskeletal: see HPI Psych: no depression, anxiety OBJECTIVE: Ms. Yamil Ng is a pleasant 39 year old in no apparent distress. Gen:LMP 07/17/2023 nl development, non obese, no deformities ENT: Normocephalic, normal hearing, moist mucosa CV: Pulses:DP/PT= 2+ and symmetric, capillary refill < 2 secs, no peripheral edema/varicosities Skin: no rash, bruising or lesions. Good turgor. Psych: cooperative and appropriate, alert and oriented x 3, good mood and affect. Musculoskeletal: Left knee, bilateral hips and ankles FROM without pain or limitation. RT Knee: Alignment: Neutral Active Extension 0 and Active Flexion 120 Extension lag: No Pain with ROM: Yes Effusion: Slight Erythema: No Ecchymosis: No Tender to the palp (more content not included)... [place] [id number] History of Present illness Narrative Associated Order(s): Large Joint Arthro/Inj: R knee joint Post-Procedure Diagnose(s): Chondromalacia of right patella; Chronic pain of right knee Ilana Dickens PA-C Department of Orthopaedics Orthopaedics [address] [place] [id number] Dept: [phone] January 05, 2025 SUBJECTIVE: CHIEF COMPLAINT: Knee Pain and Established Patient of the Right Knee HPI: Yamil Ng is a 39-year-old female with a history of knee surgery, presenting for evaluation of worsening right knee pain. Right Knee Pain: - Worsening over time, no recent injury. - Pain rated 2/10 at rest. - Aggravated by movement, especially descending stairs and bending the knee. - Describes a popping sensation, but denies locking or getting physically stuck. - Able to bend the knee fully, but with pain. - No current medication use for pain. - No new numbness or paresthesia down the leg. - History of one injection prior to first knee surgery (plica excision in 2020). Past Medical History: PAST MEDICAL HISTORY Diagnosis Date Anemia Complication of anesthesia nausea and vomiting Episode of recurrent major depressive disorder 08/28/2018 Family history of epilepsy aunt Hepatic hemangioma 01/20/2024 Hepatitis in viral diseases classified elsewhere(573.1) when she had mono PMH - PAST MEDICAL HISTORY OF Right Sciatica Seizure disorder (HCC) 02/04/2018 Past Surgical History: PAST SURGICAL HISTORY Procedure Laterality Date DELIVERY ONLY , low cervical x4 DELIVERY ONLY 10/14/2016 EXCISION GANGLION WRIST DORSAL/VOLAR PRIMARY Right HYSTEROSCOPY ENDOMETRIAL ABLATION N/A 02/28/2023 KNEE SURGERY HX Right shaved patella and removed fat pad LAP HYSTERECTOMY FOR UTERUS 250G OR LESS 09/04/2023 LIG/TRNSXJ FLP TUBE ABDL/VAG APPR UNI/BI Bilateral 10/14/2016 VAGINAL CUFF REPAIR 09/22/2023 exam under anesthesia, pelvic irrigation and insertion of intraabdominal drain Family History: FAMILY HISTORY Problem Relation Age of Onset Hypertension Father Diabetes Father Hyperlipidemia Father Cataract Father other (Diverticulosis) Father other (FIBROMYALGIA) Sister Pancreatitis Sister Cancer Maternal Grandmother Breast Cancer Paternal Grandmother Heart Paternal Grandmother Stroke Paternal Grandfather Diabetes Maternal Aunt Anesthesia Problems No Family History Clotting Disorder No Family History Malig Hyperthermia No Family History Colon Cancer No Family History Social History: Social History Tobacco Use Smoking status: Never Smokeless tobacco: Never Vaping Use Vaping status: Never Used Substance Use Topics Alcohol use: Yes Comment: occasional Drug use: No Medications: Current Outpatient Medications Medication Sig lacosamide (VIMPAT) 150 mg tab Take 1 tablet by mouth two times a day for 180 days. levETIRAcetam (KEPPRA) 1,000 mg tablet Take 1 tablet by mouth two times a day. ondansetron orally disintegrating (ZOFRAN ODT) 4 mg disintegrating tablet dissolve one tablet on the tongue every 8 hours as needed for nausea pantoprazole DR (PROTONIX) 40 mg tablet Take 1 tablet by mouth two times a day. sucralfate (CARAFATE) 1 gram tablet Take 1 tablet by mouth four times daily. hydrOXYzine HCl (ATARAX) 25 mg tablet Take 1-2 tablets by mouth at bedtime. Can cause drowsiness. clobetasol (TEMOVATE) 0.05 % cream Apply to affected area twice daily Saturday-Saturday. Take weekends off. Do not use on face, armpits, neck, or groin. Clobetasol Propionate (TEMOVATE) 0.05 % external solution Apply to affected areas on scalp twice daily Saturday-Saturday, take weekends off. May repeat as needed. triamcinolone acetonide (KENALOG) 0.1 % cream Apply to affected areas twice daily for 2 weeks. rizatriptan (MAXALT) 10 mg tablet Take 1 tablet (10 mg) by mouth as needed (at onset of headache. May repeat after 2 hours.). Do not exceed 30 mg per day. No current facility-administered medications for this visit. Allergies: Bleach (Sodium Hypochlorite), Lamictal [Lamotrigine], [place] [Trees], Topiramate, and Tree And Shrub Pollen ROS: General: negative for fatigue, malaise, weight loss/gain Musculoskeletal: see HPI Psych: no depression, anxiety OBJECTIVE: Ms. Yamil Ng is a pleasant 39 year old in no apparent distress. Gen:LMP 07/17/2023 nl development, non obese, no deformities ENT: Normocephalic, normal hearing, moist mucosa CV: Pulses:DP/PT= 2+ and symmetric, capillary refill < 2 secs, no peripheral edema/varicosities Skin: no rash, bruising or lesions. Good turgor. Psych: cooperative and appropriate, alert and oriented x 3, good mood and affect. Musculoskeletal: Left knee, bilateral hips and ankles FROM without pain or limitation. RT Knee: Alignment: Neutral Active Extension 0 and Active Flexion 120 Extension lag: No Pain with ROM: Yes Effusion: Slight Erythema: No Ecchymosis: No Tender to the palpation of lateral patellar facet Pain with patellar compression: No Stability: Anterior/Posterior stable and Varus/Valgus stable Patellofemoral crepitus: Yes Quad Atrophy: No Romina's: Negative Anterior drawer: Negative IMAGIN01/10/2025 4:28 PM - Radiology, [place] In Impression IMPRESSION: Negative. Binitrotoluene Operator: GILDARDO Transcribe Date/Time: Jan 10 2025 4:25P Dictated by : MARCIE WYNN MD This examination was interpreted and the report reviewed and electronically signed by: MARCIE WYNN MD on Jan 10 2025 4:25PM EST Results-Findings * * *Final Report* * * DATE OF EXAM: Jan 05 2025 3:30PM ZARINA [id number] - XR KNEE 4V AP/PA BOTH+LAT/BISI RT / PROCEDURE REASON: M25.561-Right knee pain, unspecified chronicity * * * * Physician Interpretation * * * * PROCEDURE: Right knee INDICATION: Right knee pain, unspecified chronicity .right knee pain TECHNIQUE: XR KNEE 4V AP/PA BOTH+LAT/BISI RT COMPARISON: 02/08/2024 FINDINGS: No fractures or dislocations are seen. No significant joint effusion or joint body is evident. The joint spaces are maintained without evidence for significant degenerative or arthritic change. 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 Chondromalacia of right patella (M22.41) 2. Chronic pain of right knee (M25.561) - Discussed the etiology of the painful popping sensation, attributing it to patellofemoral joint arthritis. - Recommended corticosteroid injection to reduce inflammation and alleviate pain associated with the popping sensation. - Patient consented to the injection; administered today. Follow up as needed. Recording using Bucky Box software for draft documentation of the visit was discussed with the patient/authorized reimbursement representative; all questions welcomed and answered. Patient/authorized reimbursement representative agreed to proceed PROCEDURE: Large Joint Arthro/Inj: R knee joint 01/05/2025 4:22 PM The procedure site was prepped in the usual sterile fashion. Site: R knee joint Medications: 12 mg betamethasone acetate-betamethasone sodium phosphate 6 mg/mL Anesthetics: 3 mL lidocaine (PF) 10 mg/mL (1 %) Outcome: Tolerated well, no immediate complications Post-injection instructions were reviewed with the patient and the patient voiced understanding of these instructions. Informed Consent Consent Obtained: Verbal [place] Protocol A moment to CARE was completed. SIGN IN Personnel directly involved with the procedure wore the appropriate PPE. Special Equipment: N/A Patient/Surrogate Stated/Verified: Patient name, Date of , Relevant allergies and Intended procedure TIME OUT Relevant labs, photos, and/or imaging studies have been reviewed. Consent documented and matches the intended procedure. Correct side/site marked and visible. Medications required for procedure verified. No fire risk assessment and interventions applicable. No implant(s) inserted. FOLLOW UP INSTRUCTIONS: john Dickens PA-C documented in this encounter [facility] 01-05-2025 History of Present illness Narrative Radiology Service Progress Note PATIENT NAME: Yamil Ng DATE OF SERVICE: January 05, 2025 TIME: 3:31 PM PATIENT IDENTITY VERIFICATION COMPLETED USING TWO (2) IDENTIFIERS: Name and Date of confirmed by patient verbally. FALL SCREENING: Has the patient had 2 falls in the last year or 1 fall with injury or currently using an Ambulatory Assistive Device (Walker, Cane, Wheelchair, Crutches, etc.)? No PATIENT GENDER DATA: Assigned female at . status: : No status: NO. PATIENT RELEVANT IMPLANT DATA REVIEWED: Not Applicable PATIENT PRESENTS WITH AN IMPLANTABLE OR ATTACHED INFORMATION TECHNOLOGY INSTRUCTOR: No RADIOLOGY DEPARTMENT: General X-ray: Exam(s) Completed: Lower Extremity X-Ray(s): Knee, AP / Lat / Tunne / Merchant Right and Wt. Bearing PERIPHERAL IV DATA: Not applicable SIGNED BY: Zia Mir January 05, 2025 3:31 PM documented in this encounter [facility] 01-05-2025 Note HNO ID: [id number] Author: PREET MAIER Tech Service: ? Author Type: Corporate Sales Manager Type: Progress Notes Filed: 01/05/2025 15:31 Note Text: Radiology Service Progress Note PATIENT NAME: Yamil Ng DATE OF SERVICE: January 05, 2025 TIME: 3:31 PM PATIENT IDENTITY VERIFICATION COMPLETED USING TWO (2) IDENTIFIERS: Name and Date of confirmed by patient verbally. FALL SCREENING: Has the patient had 2 falls in the last year or 1 fall with injury or currently using an Ambulatory Assistive Device (Walker, Cane, Wheelchair, Crutches, etc.)? No PATIENT GENDER DATA: Assigned female at . status: : No status: NO. PATIENT RELEVANT IMPLANT DATA REVIEWED: Not Applicable PATIENT PRESENTS WITH AN IMPLANTABLE OR ATTACHED INFORMATION TECHNOLOGY INSTRUCTOR: No RADIOLOGY DEPARTMENT: General X-ray: Exam(s) Completed: Lower Extremity X-Ray(s): Knee, AP / Lat / Tunne / Merchant Right and Wt. Bearing PERIPHERAL IV DATA: Not applicable SIGNED BY: Zia Mir January 05, 2025 3:[address] [facility] 01-04-2025 History of Present illness Narrative [facility] Patient Name: Yamil Ng Date of : 1985 ESTABLISHED EPILEPSY CLINIC NOTE 01/04/2025 10:00 AM Reason for Visit: Seizures, Follow Up, and Refill Request Clinical Summary: Ms. Ng is a 39 year old right-handed female seen in [facility]. I received consent from the patient to perform the visit using this platform. I have communicated my name and active licensure. The patient's identity and physical location were verified at the time of this visit. Either the patient or their legal reimbursement representative has been informed of the risks and benefit of - and alternatives to - treatment through a remote evaluation and consents to proceed with the evaluation remotely. There is no one accompanying the patient during today's visit. Classification Summary HISTORY OF PRESENT ILLNESS Handedness: right-handed Age of onset: Seizure History and Evolution 32 year old woman here for seizures. First seizure event was April 2017. She had seizure out of sleep. She was evaluated in ER at that time. She was recommended testing but did not complete. She was not initiated on medicine at that time and did okay on November of this year when she had a second seizure event at that time out of sleep. She was asleep and recalls no warning or other symptoms. Her accompanies her; first seizure he woke up to her having seizure, generalized shaking. Second seizure was awake; she made a gurgling vocalization and then had a generalized seizure. She some times experience ricky vu. Not regularly, no other aura. No history of dialeptic, automotor or other seizure types. noted afterwards confused tired and remained confused for a period of time. She was started on keppra after the second episode and was treated at 500 mg bid. No prior history of seizures or child. She reported no seizures since being on the medicine. Possible lateralizing signs by history: None and Early Development: normal Interval Seizure History Patient last seen by Rachelle Beavers CNP on 02/07/2024. At this visit, she was continued on LCM 150mg BID and LEV 1000mg BID. Today, patient is currently taking LCM 150mg BID and LEV 1000mg BID. She denies side effects and missed doses. Patient denies seizures since last office visit. Last seizure was in 12/2023. But she notes trouble with word finding and memory. Will forget what her children tell her, will need to write these down. She also has trouble putting sentences together which can last a few hours. At times will say words that don't make sense and her family will point this out to her. She will then realize that she said the wrong word. She notes these can be worse during the evening time. In other health, she notes that she is getting an endoscopy/colonoscopy next week to evaluate for ulcers. She reports increase stress, feeling more irritable with everything that is going on. She reports chronic poor sleep, sleeping 4-5 hours per night. She drives, but does not drive on days that she has symptoms. Her daughter will drive her on those days. 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 Total # of Current Anti-seizure Medications: Side Effects to Current Anti-seizure Medications: Seizure Frequency at First Visit: 0 per 6 months Longest Seizure-free Interval: 0 years Number of seizure types: 1 Status Epilepticus or clusters: Yes Postictal Agitation: No Seizure-related driving accidents: No Driving: Yes Lives Alone: No CURRENT OUTPATIENT ANTISEIZURE MEDICATIONS (as of the start of the encounter) lacosamide (VIMPAT) 150 mg tab Take 1 tablet by mouth two times a day for 180 days. levETIRAcetam (KEPPRA) 1,000 mg tablet Take 1 tablet by mouth two times a day. topiramate (TOPAMAX) 25 mg tablet (Discontinued) Take by mouth. One tablet twice daily for a week; then two tablets twice daily thereafter. Prior Anti-seizure Therapies: Trial Adequacy: Max Daily Dose Achieved: Side Effects: Effectiveness: Comments: Lamotrigine Levetiracetam Comorbidities: Episode Description: Patient Entered Data: EPILEPSY SCORE 12/30/2024 11:41 AM 12/30/2024 11:41 AM 12/30/2024 11:39 AM First answer obtained - 07/21/2019 9:34 PM PHQ-9 SCORE - - 10 [Moderate Depression] - JEANIE 2 SCORE 2 [Negative Anxiety Screen] - - - JEANIE 7 SCORE - - - - QOLIE-10 SCORE (0=worst; 100=best QoL - higher scores represent better function) - - - - LSSS SCORE (0- no seizures 100- most severe possible seizures) - - - - C-SSRS SCREEN - - - - On average, how many hours of sleep do you get in a 24-hour period? - - - - PROMIS Sleep Disturbance T-SCORE - - - 68 [moderate] Have you been diagnosed with Sleep Apnea? - - - - Seizure risk factors: Brain Tumor No VP STRATEGY Infections No Developmental Delay No Family history of seizures Yes Febrile Seizure No Complications No Stroke No Traumatic Brain Injury No Previous Epilepsy Evaluations 291 IMPRESSION: Normal routine MRI brain without and with contrast. Classification Normal (Awake, Sleep, 10-20 Scalp Electrodes, Anterior temporal electrodes) Impression This EEG is within normal limits. No epileptiform discharges or EEG seizures were seen during this recording. Other caregivers: Primary Care Provider: Adrianne Ignacio MD Current Outpatient Medications Medication Sig lacosamide (VIMPAT) 150 mg tab Take 1 tablet by mouth two times a day for 180 days. levETIRAcetam (KEPPRA) 1,000 mg tablet Take 1 tablet by mouth two times a day. ondansetron orally disintegrating (ZOFRAN ODT) 4 mg disintegrating tablet dissolve one tablet on the tongue every 8 hours as needed for nausea pantoprazole DR (PROTONIX) 40 mg tablet Take 1 tablet by mouth two times a day. sucralfate (CARAFATE) 1 gram tablet Take 1 tablet by mouth four times daily. hydrOXYzine HCl (ATARAX) 25 mg tablet Take 1-2 tablets by mouth at bedtime. Can cause drowsiness. clobetasol (TEMOVATE) 0.05 % cream Apply to affected area twice daily Saturday-Saturday. Take weekends off. Do not use on face, armpits, neck, or groin. Clobetasol Propionate (TEMOVATE) 0.05 % external solution Apply to affected areas on scalp twice daily Saturday-Saturday, take weekends off. May repeat as needed. triamcinolone acetonide (KENALOG) 0.1 % cream Apply to affected areas twice daily for 2 weeks. rizatriptan (MAXALT) 10 mg tablet Take 1 tablet (10 mg) by mouth as needed (at onset of headache. May repeat after 2 hours.). Do not exceed 30 mg per day. No current facility-administered medications for this visit. ALLERGIES Allergen Reactions Bleach (Sodium Hypo* Rash Lamictal [Lamotrigi* Rash [place] Trees [Trees] Rash, Hives Topiramate Rash Tree And Shrub Poll* Unknown PAST MEDICAL HISTORY Diagnosis Date Anemia Complication of anesthesia nausea and vomiting Episode of recurrent major depressive disorder 08/28/2018 Family history of epilepsy aunt Hepatic hemangioma 01/20/2024 Hepatitis in viral diseases classified elsewhere(573.1) when she had mono PMH - PAST MEDICAL HISTORY OF Right Sciatica Seizure disorder (HCC) 02/04/2018 PAST SURGICAL HISTORY Procedure Laterality Date DELIVERY ONLY , low cervical x4 DELIVERY ONLY 10/14/2016 EXCISION GANGLION WRIST DORSAL/VOLAR PRIMARY Right HYSTEROSCOPY ENDOMETRIAL ABLATION N/A 02/28/2023 KNEE SURGERY HX Right shaved patella and removed fat pad LAP HYSTERECTOMY FOR UTERUS 250G OR LESS 09/04/2023 LIG/TRNSXJ FLP TUBE ABDL/VAG APPR UNI/BI Bilateral 10/14/2016 VAGINAL CUFF REPAIR 09/22/2023 exam under anesthesia, pelvic irrigation and insertion of intraabdominal drain FAMILY HISTORY Problem Relation Age of Onset Hypertension Father Diabetes Father Hyperlipidemia Father Cataract Father other (Diverticulosis) Father other (FIBROMYALGIA) Sister Pancreatitis Sister Cancer Maternal Grandmother Breast Cancer Paternal Grandmother Heart Paternal Grandmother Stroke Paternal Grandfather Diabetes Maternal Aunt Anesthesia Problems No Family History Clotting Disorder No Family History Malig Hyperthermia No Family History Colon Cancer No Family History SOCIAL HISTORY: -Lives in [place], [place] -Patient lives alone? No -Vocation: -Education: -Cigarette, alcohol, substance use: -Functional status: -Patient driving? Yes Review of Systems VITAL SIGNS: LMP 07/17/2023 (Exact Date) General Examination: Deferred IMPRESSION: The patient's history is suggestive of epilepsy, possibly focal, started in 2016. She remains on LEV IR 500/750 mg daily, no seizures since JACI, last reported seizure in February 2018. Epilepsy Classification: focal epilepsy Seizure Classification: Generalized Motor Seizure Etiology: Other unkown Related Condition(s): medication side effect Interval Impression: No clear seizures since last visit, but she notes trouble with short term memory and word finding/putting sentences together. She is tolerating her ASMs. She notes chronic poor sleep and increase in stress. Discussed EMU vs stratus EEG in order to capture symptoms of concern. PLAN: - Stratus EEG for 4 days without video to assess seizure burden and to capture symptoms of concern - Continue LEV 1000mg BID and LCM 150mg BID, refills sent - Will check CBC, CMP, LCM, LEV levels. Trough levels discussed - If EEG negative, then can consider neuropsychological testing - Seizure precautions. Discussed to avoid driving until testing is completed - Will update Dr. Marinelli - Follow up after EEG testing Testing Ordered Routine EEG Ambulatory EEG CBC CMP anticonvulsant level I discussed the risks, benefits and alternatives of the medical plan with the patient. Questions were answered. The patient agreed with the plan as discussed. FOLLOW-UP: Return in about 3 months (around 04/06/2025). I spent a total of 18 minutes on the date of the service which included: preparing to see the patient [id number] patient care completing clinical documentation obtaining and/or reviewing separately obtained history counseling and educating the patient/family/caregiver ordering medications, tests, or procedures Domingo Self PA-C January 04, 2025 cc: Primary Care Physician: Adrianne Ignacio MD [id number] [facility] [id number] Referring: Patient: [facility]il [facility] [address] [facility] [id number] documented in this encounter [facility] 01-04-2025 Note HNO ID: [id number] Author: DOMINGO SELF PA-C Service: ? Author Type: Physician Cloth Shader Type: Progress Notes Filed: 01/04/2025 11:52 Note Text: [facility] Patient Name: Yamil Ng Date of : 1985 ESTABLISHED EPILEPSY CLINIC NOTE 01/04/2025 10:00 AM Reason for Visit: Seizures, Follow Up, and Refill Request Clinical Summary: Ms. Ng is a 39 year old right-handed female seen in [facility]. I received consent from the patient to perform the visit using this platform. I have communicated my name and active licensure. The patient's identity and physical location were verified at the time of this visit. Either the patient or their legal reimbursement representative has been informed of the risks and benefit of - and alternatives to - treatment through a remote evaluation and consents to proceed with the evaluation remotely. There is no one accompanying the patient during today's visit. Classification Summary HISTORY OF PRESENT ILLNESS Handedness: right-handed Age of onset: Seizure History and Evolution 32 year old woman here for seizures. First seizure event was April 2017. She had seizure out of sleep. She was evaluated in ER at that time. She was recommended testing but did not complete. She was not initiated on medicine at that time and did okay on November of this year when she had a second seizure event at that time out of sleep. She was asleep and recalls no warning or other symptoms. Her accompanies her; first seizure he woke up to her having seizure, generalized shaking. Second seizure was awake; she made a gurgling vocalization and then had a generalized seizure. She some times experience ricky vu. Not regularly, no other aura. No history of dialeptic, automotor or other seizure types. noted afterwards confused tired and remained confused for a period of time. She was started on keppra after the second episode and was treated at 500 mg bid. No prior history of seizures or child. She reported no seizures since being on the medicine. Possible lateralizing signs by history: None and Early Development: normal Interval Seizure History Patient last seen by Rachelle Beavers CNP on 02/07/2024. At this visit, she was continued on LCM 150mg BID and LEV 1000mg BID. Today, patient is currently taking LCM 150mg BID and LEV 1000mg BID. She denies side effects and missed doses. Patient denies seizures since last office visit. Last seizure was in 12/2023. But she notes trouble with word finding and memory. Will forget what her children tell her, will need to write these down. She also has trouble putting sentences together which can last a few hours. At times will say words that don't make sense and her family will point this out to her. She will then realize that she said the wrong word. She notes these can be worse during the evening time. In other health, she notes that she is getting an endoscopy/colonoscopy next week to evaluate for ulcers. She reports increase stress, feeling more irritable with everything that is going on. She reports chronic poor sleep, sleeping 4-5 hours per night. She drives, but does not drive on days that she has symptoms. Her daughter will drive her on those days. 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 Total # of Current Anti-seizure Medications: Side Effects to Current Anti-seizure Medications: Seizure Frequency at First Visit: 0 per 6 months Longest Seizure-free Interval: 0 years Number of seizure types: 1 Status Epilepticus or clusters: Yes Postictal Agitation: No Seizure-related driving accidents: No Driving: Yes Lives Alone: No CURRENT OUTPATIENT ANTISEIZURE MEDICATIONS (as of the start of the encounter) lacosamide (VIMPAT) 150 mg tab Take 1 tablet by mouth two times a day for 180 days. levETIRAcetam (KEPPRA) 1,000 mg tablet Take 1 tablet by mouth two times a day. topiramate (TOPAMAX) 25 mg tablet (Discontinued) Take by mouth. One tablet twice daily for a week; then two tablets twice daily thereafter. Prior Anti-seizure Therapies: Trial Adequacy: Max Daily Dose Achieved: Side Effects: Effectiveness: Comments: Lamotrigine Levetiracetam Comorbidities: Episode Description: Patient Entered Data: EPILEPSY SCORE 12/30/2024 11:41 AM 12/30/2024 11:41 AM 12/30/2024 11:39 AM First answer obtained - 07/21/2019 9:34 PM PHQ-9 SCORE - - 10 [Moderate Depression] - JEANIE 2 SCORE 2 [Negative Anxiety Screen] - - - JEANIE 7 SCORE - - - - QOLIE-10 SCORE (0=worst; 100=best QoL - higher scores represent better function) - - - - LSSS SCORE (0- no seizures 100- most severe possible seizures) - - - - C-SSRS SCREEN - - - - On average, how many hours of sleep do you get in a 24-hour period? - - - - PROMIS Sleep Disturbance T-SCORE - - - 68 [moderate] Have you been diagnosed with Sleep Apnea? - - - - Seiz (more content not included)... [facility] 12-24-2024 Telephone encounter Note Attempted to reach Yamil again at [phone]. [facility] 12-24-2024 Miscellaneous Notes Attempted to reach Yamil again at [phone]. Attempted to reach patient. Message left to call the office back at [phone] with best time and number to reach her. I will try to reach her again later. General call : Full name of person calling: Yamil Ludy Ng Relationship to patient: self Phone # : [phone] (home) Reason for call: Patient feels as if brain and speech don't match. Also, she reports feeling as if steps are off. Patient of Dr. Marinelli documented in this encounter [facility] 12-24-2024 Telephone encounter Note Attempted to reach patient. Message left to call the office back at [phone] with best time and number to reach her. I will try to reach her again later. [facility] 12-23-2024 Telephone encounter Note General call : Full name of person calling: Yamil Ng Relationship to patient: self Phone # : [phone] (home) Reason for call: Patient feels as if brain and speech don't match. Also, she reports feeling as if steps are off. Patient of Dr. Marinelli [facility] 12-17-2024 Note HNO ID: [id number] Author: KRISTEN ABREU APRN.[facility] Service: ? Author Type: Nurse Practitioner Type: Progress Notes Filed: 12/17/2024 09:50 Note Text: [facility] Subjective Yamil Ng is a 39 year old female. Patient presents with: Sore Throat: Fever, body aches, headache x 7 hours Sore Throat Acute Viral Syndrome: - Onset of body aches and fever at 0200 this morning. - Mild cough. - Denies nausea, emesis, diarrhea, or skin rash. - Has not taken any medications today. - Works at [employer]; requests a work note for today and tomorrow. Epilepsy: - Managed with Keppra. Eczema: - Managed with topical creams and shampoos. Tobacco Use: - Current smoker. PAST MEDICAL HISTORY Diagnosis Date Anemia Complication of anesthesia nausea and vomiting Episode of recurrent major depressive disorder 08/28/2018 Family history of epilepsy aunt Hepatic hemangioma 01/20/2024 Hepatitis in viral diseases classified elsewhere(573.1) when she had mono PMH - PAST MEDICAL HISTORY OF Right Sciatica Seizure disorder (HCC) 02/04/2018 PAST SURGICAL HISTORY Procedure Laterality Date DELIVERY ONLY , low cervical x4 DELIVERY ONLY 10/14/2016 EXCISION GANGLION WRIST DORSAL/VOLAR PRIMARY Right HYSTEROSCOPY ENDOMETRIAL ABLATION N/A 02/28/2023 KNEE SURGERY HX Right shaved patella and removed fat pad LAP HYSTERECTOMY FOR UTERUS 250G OR LESS 09/04/2023 LIG/TRNSXJ FLP TUBE ABDL/VAG APPR UNI/BI Bilateral 10/14/2016 VAGINAL CUFF REPAIR 09/22/2023 exam under anesthesia, pelvic irrigation and insertion of intraabdominal drain ALLERGIES Bleach (Sodium Hypochlorite), Lamictal [Lamotrigine], [place] [Trees], Topiramate, and Tree And Shrub Pollen MEDICATIONS ondansetron orally disintegrating (ZOFRAN ODT) 4 mg disintegrating tablet dissolve one tablet on the tongue every 8 hours as needed for nausea pantoprazole DR (PROTONIX) 40 mg tablet Take 1 tablet by mouth two times a day. sucralfate (CARAFATE) 1 gram tablet Take 1 tablet by mouth four times daily. hydrOXYzine HCl (ATARAX) 25 mg tablet Take 1-2 tablets by mouth at bedtime. Can cause drowsiness. clobetasol (TEMOVATE) 0.05 % cream Apply to affected area twice daily Saturday-Saturday. Take weekends off. Do not use on face, armpits, neck, or groin. Clobetasol Propionate (TEMOVATE) 0.05 % external solution Apply to affected areas on scalp twice daily Saturday-Saturday, take weekends off. May repeat as needed. triamcinolone acetonide (KENALOG) 0.1 % cream Apply to affected areas twice daily for 2 weeks. lacosamide (VIMPAT) 150 mg tab Take 1 tablet by mouth two times a day for 180 days. levETIRAcetam (KEPPRA) 1,000 mg tablet Take 1 tablet by mouth two times a day. rizatriptan (MAXALT) 10 mg tablet Take 1 tablet (10 mg) by mouth as needed (at onset of headache. May repeat after 2 hours.). Do not exceed 30 mg per day. amoxicillin (AMOXIL) 500 mg capsule Take 1 capsule by mouth two times a day for 10 days. [DISCONTINUED] topiramate (TOPAMAX) 25 mg tablet Take by mouth. One tablet twice daily for a week; then two tablets twice daily thereafter. FAMILY HISTORY Problem Relation Age of Onset Hypertension Father Diabetes Father Hyperlipidemia Father Cataract Father other (Diverticulosis) Father other (FIBROMYALGIA) Sister Pancreatitis Sister Cancer Maternal Grandmother Breast Cancer Paternal Grandmother Heart Paternal Grandmother Stroke Paternal Grandfather Diabetes Maternal Aunt Anesthesia Problems No Family History Clotting Disorder No Family History Malig Hyperthermia No Family History Colon Cancer No Family History Social History Tobacco Use Smoking status: Never Smokeless tobacco: Never Vaping Use Vaping status: Never Used Substance Use Topics Alcohol use: Yes Comment: occasional Drug use: No Review of Systems HENT: Positive for sore throat. Constitutional: (+) body aches, (+) fever Respiratory: (+) cough Skin: (-) rash, (-) skin lesions Objective BP 117/82 Pulse 97 Temp 37.3 ?C (99.1 ?F) Resp 20 Wt 68 kg (149 lb 14.6 oz) LMP 07/17/2023 (Exact Date) SpO2 99% BMI 26.56 kg/m? Physical Exam Vitals and nursing note reviewed. Constitutional: General: She is not in acute distress. Appearance: Normal appearance. She is normal weight. She is not ill-appearing, toxic-appearing or diaphoretic. HENT: Head: Normocephalic and atraumatic. Right Ear: Ear canal and external ear normal. Left Ear: Ear canal and external ear normal. Nose: Nose normal. No congestion or rhinorrhea. Mouth/Throat: Mouth: Mucous membranes are moist. Pharynx: Posterior oropharyngeal erythema present. No oropharyngeal exudate. Comments: 1 +enlarged bilateral +exudate noted right tonsil Handling secretions. Eyes: General: Right eye: No discharge. Left eye: No discharge. Extraocular Movements: Extraocular movements intact. Conjunctiva/sclera: C (more content not included)... [facility] 12-17-2024 History of Present illness Narrative [facility] Subjective Yamil Ng is a 39 year old female. Patient presents with: Sore Throat: Fever, body aches, headache x 7 hours Sore Throat Acute Viral Syndrome: - Onset of body aches and fever at 0200 this morning. - Mild cough. - Denies nausea, emesis, diarrhea, or skin rash. - Has not taken any medications today. - Works at [employer]; requests a work note for today and tomorrow. Epilepsy: - Managed with Keppra. Eczema: - Managed with topical creams and shampoos. Tobacco Use: - Current smoker. PAST MEDICAL HISTORY Diagnosis Date Anemia Complication of anesthesia nausea and vomiting Episode of recurrent major depressive disorder 08/28/2018 Family history of epilepsy aunt Hepatic hemangioma 01/20/2024 Hepatitis in viral diseases classified elsewhere(573.1) when she had mono PMH - PAST MEDICAL HISTORY OF Right Sciatica Seizure disorder (HCC) 02/04/2018 PAST SURGICAL HISTORY Procedure Laterality Date DELIVERY ONLY , low cervical x4 DELIVERY ONLY 10/14/2016 EXCISION GANGLION WRIST DORSAL/VOLAR PRIMARY Right HYSTEROSCOPY ENDOMETRIAL ABLATION N/A 02/28/2023 KNEE SURGERY HX Right shaved patella and removed fat pad LAP HYSTERECTOMY FOR UTERUS 250G OR LESS 09/04/2023 LIG/TRNSXJ FLP TUBE ABDL/VAG APPR UNI/BI Bilateral 10/14/2016 VAGINAL CUFF REPAIR 09/22/2023 exam under anesthesia, pelvic irrigation and insertion of intraabdominal drain ALLERGIES Bleach (Sodium Hypochlorite), Lamictal [Lamotrigine], [place] [Trees], Topiramate, and Tree And Shrub Pollen MEDICATIONS ondansetron orally disintegrating (ZOFRAN ODT) 4 mg disintegrating tablet dissolve one tablet on the tongue every 8 hours as needed for nausea pantoprazole DR (PROTONIX) 40 mg tablet Take 1 tablet by mouth two times a day. sucralfate (CARAFATE) 1 gram tablet Take 1 tablet by mouth four times daily. hydrOXYzine HCl (ATARAX) 25 mg tablet Take 1-2 tablets by mouth at bedtime. Can cause drowsiness. clobetasol (TEMOVATE) 0.05 % cream Apply to affected area twice daily Saturday-Saturday. Take weekends off. Do not use on face, armpits, neck, or groin. Clobetasol Propionate (TEMOVATE) 0.05 % external solution Apply to affected areas on scalp twice daily Saturday-Saturday, take weekends off. May repeat as needed. triamcinolone acetonide (KENALOG) 0.1 % cream Apply to affected areas twice daily for 2 weeks. lacosamide (VIMPAT) 150 mg tab Take 1 tablet by mouth two times a day for 180 days. levETIRAcetam (KEPPRA) 1,000 mg tablet Take 1 tablet by mouth two times a day. rizatriptan (MAXALT) 10 mg tablet Take 1 tablet (10 mg) by mouth as needed (at onset of headache. May repeat after 2 hours.). Do not exceed 30 mg per day. amoxicillin (AMOXIL) 500 mg capsule Take 1 capsule by mouth two times a day for 10 days. [DISCONTINUED] topiramate (TOPAMAX) 25 mg tablet Take by mouth. One tablet twice daily for a week; then two tablets twice daily thereafter. FAMILY HISTORY Problem Relation Age of Onset Hypertension Father Diabetes Father Hyperlipidemia Father Cataract Father other (Diverticulosis) Father other (FIBROMYALGIA) Sister Pancreatitis Sister Cancer Maternal Grandmother Breast Cancer Paternal Grandmother Heart Paternal Grandmother Stroke Paternal Grandfather Diabetes Maternal Aunt Anesthesia Problems No Family History Clotting Disorder No Family History Malig Hyperthermia No Family History Colon Cancer No Family History Social History Tobacco Use Smoking status: Never Smokeless tobacco: Never Vaping Use Vaping status: Never Used Substance Use Topics Alcohol use: Yes Comment: occasional Drug use: No Review of Systems HENT: Positive for sore throat. Constitutional: (+) body aches, (+) fever Respiratory: (+) cough Skin: (-) rash, (-) skin lesions Objective BP 117/82 Pulse 97 Temp 37.3 C (99.1 F) Resp 20 Wt 68 kg (149 lb 14.6 oz) LMP 07/17/2023 (Exact Date) SpO2 99% BMI 26.56 kg/m Physical Exam Vitals and nursing note reviewed. Constitutional: General: She is not in acute distress. Appearance: Normal appearance. She is normal weight. She is not ill-appearing, toxic-appearing or diaphoretic. HENT: Head: Normocephalic and atraumatic. Right Ear: Ear canal and external ear normal. Left Ear: Ear canal and external ear normal. Nose: Nose normal. No congestion or rhinorrhea. Mouth/Throat: Mouth: Mucous membranes are moist. Pharynx: Posterior oropharyngeal erythema present. No oropharyngeal exudate. Comments: 1 +enlarged bilateral +exudate noted right tonsil Handling secretions. Eyes: General: Right eye: No discharge. Left eye: No discharge. Extraocular Movements: Extraocular movements intact. Conjunctiva/sclera: Conjunctivae normal. Pupils: Pupils are equal, round, and reactive to light. Cardiovascular: Rate and Rhythm: Normal rate and regular rhythm. Pulses: Normal pulses. Heart sounds: Normal heart sounds. No murmur heard. No friction rub. Pulmonary: Effort: Pulmonary effort is normal. No respiratory distress. Breath sounds: Normal breath sounds. No stridor. No wheezing, rhonchi or rales. Chest: Chest wall: No tenderness. Abdominal: General: Abdomen is flat. There is no distension. Palpations: Abdomen is soft. There is no mass. Tenderness: There is no abdominal tenderness. There is no right CVA tenderness, left CVA tenderness, guarding or rebound. Hernia: No hernia is present. Musculoskeletal: General: No swelling, tenderness, deformity or signs of injury. Normal range of motion. Cervical back: Normal range of motion and neck supple. No rigidity. Right lower leg: No edema. Left lower leg: No edema. Lymphadenopathy: Cervical: Cervical adenopathy present. Skin: General: Skin is warm and dry. Capillary Refill: Capillary refill takes less than 2 seconds. Coloration: Skin is not jaundiced or pale. Findings: No bruising, erythema, lesion or rash. Neurological: General: No focal deficit present. Mental Status: She is alert and oriented to person, place, and time. Cranial Nerves: No cranial nerve deficit. Sensory: No sensory deficit. Motor: No weakness. Coordination: Coordination normal. Gait: Gait normal. Psychiatric: Mood and Affect: Mood normal. Behavior: Behavior normal. Thought Content: Thought content normal. Judgment: Judgment normal. {1. Strep throat (J02.0) - Onset of symptoms at 0200 today, including myalgias, fever, and mild cough. No nausea, vomiting, diarrhea, or skin lesions. No ocular or otic symptoms. - Physical exam reveals exudate on the right tonsil. - Rapid strep test positive. - Initiated amoxicillin BID for 10 days. - Advised to replace toothbrush after 24 hours of antibiotic therapy. - Discussed contagiousness and importance of completing the full course of antibiotics. - Provided work note for today and tomorrow. - Follow-up with primary care physician if symptoms persist or worsen. and Recording using [employer] software for draft documentation of the visit was discussed with the patient/authorized reimbursement representative; all questions welcomed and answered. Patient/authorized reimbursement representative agreed to proceed History and Record Review External record(s) reviewed: prior inpatient record and prior outpatient record. Contributing Factors Social Determinants of Health significantly affecting care: alcohol use Disposition The patient was discharged. Procedures documented in this encounter [facility] 12-17-2024 Instructions Kristen Abreu APRN.CNP - 12/17/2024 9:25 AM EDT - Take amoxicillin twice daily for 10 days as prescribed. - Replace your toothbrush 24 hours after starting antibiotics to help prevent reinfection. - Strep throat is contagious; stay home and avoid close contact with others until you ve been on antibiotics for at least 24 hours. - Follow up with your primary care doctor if your symptoms worsen, do not improve, or you develop new concerns. - A work note has been provided for today and tomorrow; please give this to your employer as needed. documented in this encounter [facility] 12-08-2024 Note Patient Outreach (SEB MPNESTOR) YAMIL NG ([id number]) 1985 F Date Time Provider Department 12/08/24 ADRIANNE IGNACIO During your visit today, we recorded the following information about you: Allergies As of Date: 12/08/2024 Noted Allergy Reaction BLEACH (SODIUM HYPOCHLORITE) 03/22/2016 2 - Rash LAMICTAL (LAMOTRIGINE) 06/16/2018 2 - Rash PINE TREES (TREES) 03/22/2016 2 - Rash 4 - Hives TOPIRAMATE 06/07/2023 2 - Rash TREE AND SHRUB POLLEN 09/22/2023 16 - Unknown Date Reviewed: 11/06/2024 Reviewed by: Adriana Smith MA - Fully Assessed Visit Diagnosis:Encounter for screening mammogram for breast cancer [Z12.31] Order(s):[facility] SCREENING [facility] ELLIE [[id number]] Order #: [id number] FUTURE Prescriptions as of 01/08/2025 - lacosamide (VIMPAT) 150 mg tab Take 1 tablet by mouth two times a day for 180 days. - levETIRAcetam (KEPPRA) 1,000 mg tablet Take 1 tablet by mouth two times a day. - ondansetron orally disintegrating (ZOFRAN ODT) 4 mg disintegrating tablet dissolve one tablet on the tongue every 8 hours as needed for nausea - pantoprazole DR (PROTONIX) 40 mg tablet Take 1 tablet by mouth two times a day. - sucralfate (CARAFATE) 1 gram tablet Take 1 tablet by mouth four times daily. - hydrOXYzine HCl (ATARAX) 25 mg tablet Take 1-2 tablets by mouth at bedtime. Can cause drowsiness. - clobetasol (TEMOVATE) 0.05 % cream Apply to affected area twice daily Saturday-Saturday. Take weekends off. Do not use on face, armpits, neck, or groin. - Clobetasol Propionate (TEMOVATE) 0.05 % external solution Apply to affected areas on scalp twice daily Saturday-Saturday, take weekends off. May repeat as needed. - triamcinolone acetonide (KENALOG) 0.1 % cream Apply to affected areas twice daily for 2 weeks. - rizatriptan (MAXALT) 10 mg tablet Take 1 tablet (10 mg) by mouth as needed (at onset of headache. May repeat after 2 hours.). Do not exceed 30 mg per day. - topiramate (TOPAMAX) 25 mg tablet (Discontinued) Take by mouth. One tablet twice daily for a week; then two tablets twice daily thereafter. 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/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 Medication side effect [T88.7XXA] 03/12/2018 04/24/2019 Encounter for monitoring anticonvulsant therapy*03/12/2018 Vitamin D deficiency [E55.9] 06/15/2018 URI (obstructive sleep apnea) [G47.33] 08/28/2018 Anxiety [F41.9] 08/28/2018 Episode of recurrent major depressive disorder *08/28/2018 Splenomegaly [R16.1] 03/20/2019 Anemia [D64.9] 03/20/2019 Ganglion cyst of wrist, right [M67.431] 04/24/2019 Acute pain of right knee [M25.561] 09/20/2020 Plica of knee, right [M67.51] 02/20/2021 02/20/2021 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 GERD (gastroesophageal reflux disease) [K21.9] 02/13/2023 Menorrhagia with irregular cycle [N92.1] 02/28/2023 Unable to empty bladder [R33.9] 07/16/2024 Encounter Status:Closed by CATRACHITO PRODUSER on 01/08/25 [facility] 11-06-2024 Note Addended by: DOMITILA GALICIA on: 11/06/2024 03:45 PM Modules accepted: Orders [facility] 11-06-2024 Miscellaneous Notes Addended by: DOMITILA GALICIA on: 11/06/2024 03:45 PM Modules accepted: Orders documented in this encounter [facility] 11-06-2024 Instructions Domitila Galicia APRN.CNP - 11/06/2024 2:22 PM EDT COLONOSCOPY BOWEL PREPARATION INSTRUCTIONS SUTAB Your doctor has scheduled you for a colonoscopy. To have a successful colonoscopy, you must have a clean colon, that is empty. A clean colon allows your doctor to see the entire colon & diagnose issues like polyps or cancer. For doctors, a clean colon is like driving on a kristyn day; a dirty colon like driving in a storm. It is very important that you follow these instructions exactly, or your colonoscopy may not be as effective, could be canceled, and you may need to do the bowel prep and colonoscopy again. TRANSPORTATION REQUIREMENTS You are receiving IV sedation. For your safety, a responsible adult escort must accompany you to and from your procedure: Your adult escort MUST be present with you at check-in for your colonoscopy. Your adult escort MUST remain in the endoscopy area until you are discharged. Your adult escort MUST transport you home once you are discharged. You are NOT allowed to operate any form of transportation (i.e. drive a car, bicycle, etc) or leave the Endoscopy Center ALONE. It is not safe to do so. If you cannot meet these requirements, your procedure will be canceled. MEDICATION REQUIREMENTS For your safety, certain medications will need to be stopped or adjusted before you can have your procedure: BLOOD THINNERS: If you take blood thinners, such as Coumadin (warfarin), Plavix (clopidogrel), Ticlid (ticlopidine hydrochloride), Agrylin (anagrelide), Xarelto (Rivaroxaban), Pradaxa (Dabigatran), Eliquis (Apixaban), or Effient (Prasugrel), contact the physician who is prescribing these medications at least 2 weeks prior to your procedure to discuss any necessary adjustments. DIABETES: If you take medications for diabetes, your dosage may need to be adjusted. If you are being treated for diabetes with insulin, diabetic pills, or other injectable medications do not take your REGULAR dose after midnight on the day of your procedure. If you are taking any other types of insulin such as Lantus, Humalog, NPH (long-acting insulin), or 70/30 insulin, take half your normal dose the day before your procedure. DIABETES/WEIGHT MANAGEMENT: If you take medications for weight-loss, your dosage may need to be adjusted Contact the doctor who prescribes this medication for further instructions. If you take medications for weight-loss like semaglutide (Ozempic, Wegovy, Rybelsus), dulaglutide (Trulicity), liraglutide (Victoza, Saxenda), exenatide (Byetta, Bydureon), or lixisenatide (Adylyxin), stop your medication 1 week prior to your procedure. If you take medications like canagliflozin (Invokana), dapagliflozin (Farxiga, Forxiga), empagliflozin (Jardiance), stop your medication 3 days prior to your procedure. If you take ertugliflozin (Steglatro) stop your medication 4 days prior to your procedure. IRON: If you take iron pills, STOP them 1 week BEFORE your procedure, may resume after. OTHER MEDS: May take all other medications (including aspirin, antibiotics, water pills / diuretics like Lasix or Metolozone, blood pressure meds, etc.) at their usual scheduled time with water. DIET REQUIREMENTS The day before your colonoscopy, you may have a clear liquid diet (see below). The day of your colonoscopy, you may continue a clear liquid diet until 3 hours before your colonoscopy. Within 3 hours of your colonoscopy, take only any medications (as above) with a sip of water. Clear Liquid Diet Broth (chicken, beef or vegetable broth or bullion. Just the broth, no solids). Water Coffee or Tea (NO milk or creamer), but sugar and sugar substitutes are allowed. Clear liquids including clear, yellow, green, blue (NO red, NO orange, NO purple) Sodas / soft drinks; Gatorade or other sports drinks Fruit juice (strained; no-pulp); Yonas-Aid or flavored drinks Plain Jell-O or other gelatins Popsicles or hard candy BOWEL PREPARATION (SUTAB) Split Dosing Bowel Prep: This means drinking your bowel prep in two doses. Split dosing helps clean your colon better and makes it less likely that your procedure will be canceled. Fill your prescription for Sutab: You will drink your prep in two doses, by several hours. On the evening before your colonoscopy: 6 PM fill the supplied cup with 16-oz cool water (fill to line) Open the 1st bottle of tablets; swallow each with a sip of water. Drink the remaining water 9 PM, fill the supplied cup again with 16-oz cool water. Drink over next 30 minutes Drink a third cup of 16-oz of water. Six hours before your colonoscopy, repeat steps 1-3 with the second bottle of tablets. You may continue a clear liquid diet until 3 hours before your colonoscopy. Bowel prep can work differently from person to person. Some people's bowels move slowly and they may need different instructions. Please see your doctor in office or virtually for personalized bowel prep instructions if you have: Medical condition that needs special accommodations Had a poor bowel prep results or failed bowel prep attempts in the past. Had difficulty with anesthesia during the procedure. FREQUENTLY ASKED QUESTIONS Q: What if I suffer from constipation? A: Recommend taking extra laxatives to resolve your constipation days prior to entering the bowel prep day. Q: What if have had prior poor preps results in past? A: Contact your physician as you will likely need additional bowel prep instructions. Q: What if I have motility issues like Parkinson's, MS (multiple sclerosis), wheelchair dependent, etc.? or on medications that slow colonic transit times (narcotics, gabapentin, anticholinergic medications etc.) A: Contact your physician as you will likely need extra time and additional laxatives to complete your bowel prep. Q: What if I cannot drink large volume of liquid? A: Start your prep 2-3 hours earlier to allow yourself more time to complete the entire prep. Q: What if I had bariatric surgery? Do I still have to complete the entire prep? A: Yes, gastric bypass surgery involves the stomach & small bowel. You may need to drink smaller amounts, slower (may need more time to complete your bowel prep). Gastric bypass does not alter the length of your colon so you will need to complete the entire bowel prep, it may just take longer time to complete it. Q: What if I am on dialysis? A: Please consult your cook enchilada prior to scheduling to get instructions pertinent to you. In general, dialysis patients take the Golytely bowel prep and have the procedure same day of their dialysis (colonoscopy in AM, dialysis in PM). Q: How do I know if something is considered as clear liquid diet? A: If you can pour it in a glass and you can see through it, it is considered clear liquid Q: Can I eat nuts, seeds, beans, popcorn, dried fruits, vegetables & fruits that have skin peel? A: No, you will need to not eat these items starting 3 days prior to procedure. Q: Can I take Uber/Lyft/taxi/bus home? A: An adult MUST be present with you at check-in for your colonoscopy and remain in the endoscopy area until you are discharged. You can take Uber home only if this adult escort is with you at check in, remain in the endoscopy area until you are discharged, and takes the Uber with you to home. Q: Can I sleep it off here and drive myself home? A: No, you must have an adult with you at time of procedure check in, remain in the endoscopy center during your procedure, and drive you home. You cannot drive a vehicle after your procedure the rest of the day. Q: What if I can't finish my bowel prep? A: If you cannot complete your entire bowel prep, there is high likelihood that your colonoscopy will need to be rescheduled due to inadequate prep quality. documented in this encounter [facility] 11-06-2024 Note HNO ID: [id number] Author: DOMITILA GALICIA APRN.CNP Service: ? Author Type: Nurse Practitioner Type: Progress Notes Filed: 11/06/2024 14:45 Note Text: CHIEF COMPLAINT: Nausea, abdominal pain This consult was requested by Cristy Dunbar APRN.C* for an opinion regarding nausea/ vomiting/ GI upset. My final recommendations will be communicated to the requesting health care provider by way of the shared medical record for internal providers or letter via the [employer] for external providers. HPI: Yamil Ng is a 39-year-old female with a history of epilepsy, presenting with chronic nausea, decrease appetite, and abdominal pain. Presents with her significant other. Patient reports experiencing nausea for most of her life, but notes a significant worsening over the past six months. The nausea has become so severe that she often avoids eating all together. She was previously taking Zofran for nausea, but it stopped being effective about six months ago. She is currently taking Carafate, which she finds moderately effective when taken as prescribed, 4 times a day before meals. However, if she forgets to take it or eats without taking it, she experiences severe abdominal pain, and nausea. She also takes omeprazole 40 mg twice daily for acid reflux, but reports that it is not fully controlling her symptoms. She has tried adjusting the dosage to once daily in the evening, which provided temporary relief, but this strategy has recently become ineffective. She has never been on another PPI. Patient also reports chronic constipation, with bowel movements occurring every 4-5 days. She occasionally uses Miralax for relief and has recently started taking Fiber gummies, which have helped but sometimes result in diarrhea. She experiences bloating and distension, and her appetite is significantly reduced due to the nausea. She notes that her nausea worsens after meals and if she does not eat during her work shift from 06:00 to 14:00. 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 She finds that the longer she goes without eating, the better her nausea and abdominal pain become. Patient has a history of epilepsy, which is currently well-controlled with medication. She has not had a seizure in about seven months. She takes her epilepsy medication at 09:30 daily. Past Diagnostic Results: - Abdominal X-ray: Revealed a moderate amount of stool burden, indicating constipation. Record Review: [facility] / Outside records reviewed. PAST MEDICAL HISTORY Diagnosis Date Anemia Complication of anesthesia nausea and vomiting Episode of recurrent major depressive disorder 08/28/2018 Family history of epilepsy aunt Hepatic hemangioma 01/20/2024 Hepatitis in viral diseases classified elsewhere(573.1) when she had mono PMH - PAST MEDICAL HISTORY OF Right Sciatica Seizure disorder (HCC) 02/04/2018 PAST SURGICAL HISTORY Procedure Laterality Date DELIVERY ONLY , low cervical x4 DELIVERY ONLY 10/14/2016 EXCISION GANGLION WRIST DORSAL/VOLAR PRIMARY Right HYSTEROSCOPY ENDOMETRIAL ABLATION N/A 02/28/2023 KNEE SURGERY HX Right shaved patella and removed fat pad LAP HYSTERECTOMY FOR UTERUS 250G OR LESS 09/04/2023 LIG/TRNSXJ FLP TUBE ABDL/VAG APPR UNI/BI Bilateral 10/14/2016 VAGINAL CUFF REPAIR 09/22/2023 exam under anesthesia, pelvic irrigation and insertion of intraabdominal drain Allergies: ALLERGIES Allergen Reactions Bleach (Sodium Hypo* Rash Lamictal [Lamotrigi* Rash [place] Trees [Trees] Rash, Hives Topiramate Rash Tree And Shrub Poll* Unknown Medications: ondansetron orally disintegrating (ZOFRAN ODT) 4 mg disintegrating tablet dissolve one tablet on the tongue every 8 hours as needed for nausea sucralfate (CARAFATE) 1 gram tablet Take 1 tablet by mouth four times daily. hydrOXYzine HCl (ATARAX) 25 mg tablet Take 1-2 tablets by mouth at bedtime. Can cause drowsiness. clobetasol (TEMOVATE) 0.05 % cream Apply to affected area twice daily Saturday-Saturday. Take weekends off. Do not use on face, armpits, neck, or groin. Clobetasol Propionate (TEMOVATE) 0.05 % external solution Apply to affected areas on scalp twice daily Saturday-Saturday, take weekends off. May repeat as needed. triamcinolone acetonide (KENALOG) 0.1 % cream Apply to affected areas twice daily for 2 weeks. lacosamide (VIMPAT) 150 mg tab Take 1 tablet by mouth two times a day for 180 days. levETIRAcetam (KEPPRA) 1,000 mg tablet Take 1 tablet by mouth two times a day. rizatriptan (MAXALT) 10 mg tablet Take 1 tablet (10 mg) by mouth as needed (at onset of headache. May repeat after 2 hours.). Do not exceed 30 mg per day. omeprazole (PRILOSEC) 40 mg capsule Take 1 capsule by mouth two times a day. [DISCONTINUED] topiramate (TOPAMAX) 25 mg tablet Take by mouth. One tab (more content not included)... [facility] 11-06-2024 History of Present illness Narrative CHIEF COMPLAINT: Nausea, abdominal pain This consult was requested by PodlogCristy lovett APRN.C* for an opinion regarding nausea/ vomiting/ GI upset. My final recommendations will be communicated to the requesting health care provider by way of the shared medical record for internal providers or letter via the [employer] for external providers. HPI: Yamil Ng is a 39-year-old female with a history of epilepsy, presenting with chronic nausea, decrease appetite, and abdominal pain. Presents with her significant other. Patient reports experiencing nausea for most of her life, but notes a significant worsening over the past six months. The nausea has become so severe that she often avoids eating all together. She was previously taking Zofran for nausea, but it stopped being effective about six months ago. She is currently taking Carafate, which she finds moderately effective when taken as prescribed, 4 times a day before meals. However, if she forgets to take it or eats without taking it, she experiences severe abdominal pain, and nausea. She also takes omeprazole 40 mg twice daily for acid reflux, but reports that it is not fully controlling her symptoms. She has tried adjusting the dosage to once daily in the evening, which provided temporary relief, but this strategy has recently become ineffective. She has never been on another PPI. Patient also reports chronic constipation, with bowel movements occurring every 4-5 days. She occasionally uses Miralax for relief and has recently started taking Fiber gummies, which have helped but sometimes result in diarrhea. She experiences bloating and distension, and her appetite is significantly reduced due to the nausea. She notes that her nausea worsens after meals and if she does not eat during her work shift from 06:00 to 14:00. 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 She finds that the longer she goes without eating, the better her nausea and abdominal pain become. Patient has a history of epilepsy, which is currently well-controlled with medication. She has not had a seizure in about seven months. She takes her epilepsy medication at 09:30 daily. Past Diagnostic Results: - Abdominal X-ray: Revealed a moderate amount of stool burden, indicating constipation. Record Review: [facility] / Outside records reviewed. PAST MEDICAL HISTORY Diagnosis Date Anemia Complication of anesthesia nausea and vomiting Episode of recurrent major depressive disorder 08/28/2018 Family history of epilepsy aunt Hepatic hemangioma 01/20/2024 Hepatitis in viral diseases classified elsewhere(573.1) when she had mono PMH - PAST MEDICAL HISTORY OF Right Sciatica Seizure disorder (HCC) 02/04/2018 PAST SURGICAL HISTORY Procedure Laterality Date DELIVERY ONLY , low cervical x4 DELIVERY ONLY 10/14/2016 EXCISION GANGLION WRIST DORSAL/VOLAR PRIMARY Right HYSTEROSCOPY ENDOMETRIAL ABLATION N/A 02/28/2023 KNEE SURGERY HX Right shaved patella and removed fat pad LAP HYSTERECTOMY FOR UTERUS 250G OR LESS 09/04/2023 LIG/TRNSXJ FLP TUBE ABDL/VAG APPR UNI/BI Bilateral 10/14/2016 VAGINAL CUFF REPAIR 09/22/2023 exam under anesthesia, pelvic irrigation and insertion of intraabdominal drain Allergies: ALLERGIES Allergen Reactions Bleach (Sodium Hypo* Rash Lamictal [Lamotrigi* Rash [place] [Trees] Rash, Hives Topiramate Rash Tree And Shrub Poll* Unknown Medications: ondansetron orally disintegrating (ZOFRAN ODT) 4 mg disintegrating tablet dissolve one tablet on the tongue every 8 hours as needed for nausea sucralfate (CARAFATE) 1 gram tablet Take 1 tablet by mouth four times daily. hydrOXYzine HCl (ATARAX) 25 mg tablet Take 1-2 tablets by mouth at bedtime. Can cause drowsiness. clobetasol (TEMOVATE) 0.05 % cream Apply to affected area twice daily Saturday-Saturday. Take weekends off. Do not use on face, armpits, neck, or groin. Clobetasol Propionate (TEMOVATE) 0.05 % external solution Apply to affected areas on scalp twice daily Saturday-Saturday, take weekends off. May repeat as needed. triamcinolone acetonide (KENALOG) 0.1 % cream Apply to affected areas twice daily for 2 weeks. lacosamide (VIMPAT) 150 mg tab Take 1 tablet by mouth two times a day for 180 days. levETIRAcetam (KEPPRA) 1,000 mg tablet Take 1 tablet by mouth two times a day. rizatriptan (MAXALT) 10 mg tablet Take 1 tablet (10 mg) by mouth as needed (at onset of headache. May repeat after 2 hours.). Do not exceed 30 mg per day. omeprazole (PRILOSEC) 40 mg capsule Take 1 capsule by mouth two times a day. [DISCONTINUED] topiramate (TOPAMAX) 25 mg tablet Take by mouth. One tablet twice daily for a week; then two tablets twice daily thereafter. 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 Gastrointestinal: Positive for abdominal distention, abdominal pain, constipation, diarrhea and nausea. Change in bowel habits, Gas, Heartburn All other systems reviewed and are negative. + poor appitite Physical Examination: Pulse 63 Ht 5' 3 (1.60m) Wt 151 lb (68.5kg) SpO2 100% LMP 07/17/2023 BMI 26.76 kg/(m^2). Physical Exam Vitals and nursing note reviewed. Constitutional: Appearance: Normal appearance. HENT: Head: Normocephalic. Nose: Nose normal. Mouth/Throat: Mouth: Mucous membranes are moist. Eyes: Extraocular Movements: Extraocular movements intact. Pupils: Pupils are equal, round, and reactive to light. Cardiovascular: Heart sounds: Normal heart sounds. Pulmonary: Breath sounds: Normal breath sounds. Abdominal: General: Bowel sounds are normal. There is no distension. Palpations: Abdomen is soft. There is no mass. Tenderness: There is abdominal tenderness. There is no guarding or rebound. Comments: Epigastric tenderness Musculoskeletal: General: Normal range of motion. Cervical back: Normal range of motion. Skin: General: Skin is warm and dry. Capillary Refill: Capillary refill takes less than 2 seconds. Neurological: General: No focal deficit present. Mental Status: She is alert and oriented to person, place, and time. Mental status is at baseline. Psychiatric: Mood and Affect: Mood normal. Assessment and Plan (R11.0) Nausea (primary encounter diagnosis) (K21.9) Gastro-esophageal reflux disease without esophagitis (R10.13) Epigastric pain (K59.09) Other constipation (R11.2) Nausea and vomiting, unspecified vomiting type (Z12.11) Encounter for screening for malignant neoplasm of colon (R63.0) Decreased appetite 1. Nausea (R11.0) Nausea and vomiting, unspecified vomiting type (R11.2) Chronic nausea worsening over time, leading to avoidance of eating. Zofran previously ineffective. Currently using Carafate with moderate relief when taken as prescribed. - Scheduled upper endoscopy and colonoscopy to evaluate for underlying causes. - Will take biopsies during the procedure to assess for inflammation or other abnormalities. - Continue Carafate as prescribed; advised on diluting in water if swallowing difficulty occurs. 2. Generalized abdominal pain (R10.84) Chronic abdominal pain exacerbated by eating and inconsistent Carafate use. Possible underlying gastritis or ulcer. - Scheduled upper endoscopy to evaluate for gastritis or ulcer. PLEASE TAKE BIOPSIES DURING EGD to rule out gastritis, h.pylori, or ulcer. - Continue Carafate as prescribed. 3. Other constipation (K59.09) Chronic constipation with intermittent bowel movements every 4-5 days. Abdominal X-ray showed moderate stool burden. Continue using fiber gummies as needed. - Scheduled colonoscopy with bowel prep using Sutab tablets. 4. Gastro-esophageal reflux disease without esophagitis (K21.9) GERD partially controlled with omeprazole 40 mg BID. Patient reports variable efficacy with dosing adjustments. - Discontinue omeprazole. - Initiate Protonix; advised to take 2-3 hours before epilepsy medication to ensure absorption. Take on an empty stomach. 5. Encounter for screening for malignant neoplasm of colon (Z12.11) Due to chronic symptoms, screening for malignant neoplasm of the colon is warranted. - sutab prep - Discussed procedure details, including sedation and recovery. Follow up in office MONTHS: 3 months. Medical Decision Making: Problems: Moderate: New problem with uncertain prognosis Data: Unique test result(s) reviewed: 1 Unique test(s) ordered: 2 Assessment requiring an independent historian(s) Risk: Moderate: Decision on minor surgery w/ risk factors, Drug management and Moderate risk from testing/treatment Medical Decision Making Level: 4 - Moderate Recording using ambient [employer] software for draft documentation of the visit was discussed with the patient/authorized reimbursement representative; all questions welcomed and answered. Patient/authorized reimbursement representative agreed to proceed Domitila Galicia APRN.CNP [facility] Gastroenterology November 06, 2024 2:40 PM Domitila Galicia APRN.CNP DATE: 11/06/24 TIME: 1:58 PM documented in this encounter [facility] 10-27-2024 Telephone encounter Note Message viewed with results from Provider on 10/27/24 at 11:25 am. Mee Holder MA [facility] 10-27-2024 Miscellaneous Notes Message viewed with results from Provider on 10/27/24 at 11:25 am. Mee Holder MA Mychart message sent to pt notifying her of results from Provider. Will keep encounter open to make sure message is viewed by pt. Once viewed, will close encounter. If not viewed, call to pt to relay results. Mee Holder MA documented in this encounter [facility] 10-27-2024 Telephone encounter Note Left Detail messaged on Identified voicemail that prescription was sent to pharmacy. Alcira Lao RN [facility] 10-27-2024 Miscellaneous Notes Left Detail messaged on Identified voicemail that prescription was sent to pharmacy. Alcira Lao RN Prescription for oral pill sent. Cristy Dunbar APRN.CNP Patient calls and states that pharmacy does not have liquid form of sucralfate in stock and cannot give patient pill form without new prescription. Patient requesting new prescription to be sent to [facility]. Please review and advise, Alcira Lao RN documented in this encounter [facility] 10-27-2024 Telephone encounter Note Mychart message sent to pt notifying her of results from Provider. Will keep encounter open to make sure message is viewed by pt. Once viewed, will close encounter. If not viewed, call to pt to relay results. Mee Holder MA [facility] 10-27-2024 Telephone encounter Note Prescription for oral pill sent. Cristy Dunbar APRN.CNP [facility] 10-26-2024 Telephone encounter Note Patient calls and states that pharmacy does not have liquid form of sucralfate in stock and cannot give patient pill form without new prescription. Patient requesting new prescription to be sent to [facility]. Please review and advise, Alcira Lao RN [facility] 10-26-2024 Telephone encounter Note Telephone call placed to patient. Made aware of results and recommendations. Voices understanding. Keri Dunham LPN [facility] 10-26-2024 Miscellaneous Notes Telephone call placed to patient. Made aware of results and recommendations. Voices understanding. Keri Dunham LPN ----- Message from Cristy Dunbar APRN.TRACK WATCHMAN sent at 10/26/2024 3:27 PM EDT ----- Xray shows moderate stool burden. Recommend she use over counter Miralax one capful daily. Increase fiber and water intake. Cristy Dunbar APRN.TRACK WATCHMAN documented in this encounter [facility] 10-26-2024 Telephone encounter Note ----- Message from Cristy Dunbar APRN.TRACK WATCHMAN sent at 10/26/2024 3:27 PM EDT ----- Xray shows moderate stool burden. Recommend she use over counter Miralax one capful daily. Increase fiber and water intake. Cristy Dunbar APRN.TRACK WATCHMAN [facility] 10-26-2024 History of Present illness Narrative Radiology Service Progress Note PATIENT NAME: Yamil Ng DATE OF SERVICE: October 26, 2024 TIME: 3:01 PM PATIENT IDENTITY VERIFICATION COMPLETED USING TWO (2) IDENTIFIERS: Name and Date of confirmed by patient verbally. FALL SCREENING: Has the patient had 2 falls in the last year or 1 fall with injury or currently using an Ambulatory Assistive Device (Walker, Cane, Wheelchair, Crutches, etc.)? No PATIENT GENDER DATA: Assigned female at . status: : No status: NO. PATIENT RELEVANT IMPLANT DATA REVIEWED: Not Applicable PATIENT PRESENTS WITH AN IMPLANTABLE OR ATTACHED INFORMATION TECHNOLOGY INSTRUCTOR: No RADIOLOGY DEPARTMENT: General X-ray: Exam(s) Completed: Abdomen X-Ray: Abdomen PERIPHERAL IV DATA: Not applicable SIGNED BY: Zia Moreno October 26, 2024 3:01 PM documented in this encounter [facility] 10-26-2024 Note HNO ID: [id number] Author: CARLYLE RO Tech Service: ? Author Type: Technologist Type: Progress Notes Filed: 10/26/2024 15:10 Note Text: Radiology Service Progress Note PATIENT NAME: Yamil Ng DATE OF SERVICE: October 26, 2024 TIME: 3:01 PM PATIENT IDENTITY VERIFICATION COMPLETED USING TWO (2) IDENTIFIERS: Name and Date of confirmed by patient verbally. FALL SCREENING: Has the patient had 2 falls in the last year or 1 fall with injury or currently using an Ambulatory Assistive Device (Walker, Cane, Wheelchair, Crutches, etc.)? No PATIENT GENDER DATA: Assigned female at . status: : No status: NO. PATIENT RELEVANT IMPLANT DATA REVIEWED: Not Applicable PATIENT PRESENTS WITH AN IMPLANTABLE OR ATTACHED INFORMATION TECHNOLOGY INSTRUCTOR: No RADIOLOGY DEPARTMENT: General X-ray: Exam(s) Completed: Abdomen X-Ray: Abdomen PERIPHERAL IV DATA: Not applicable SIGNED BY: Zia Moreno October 26, 2024 3:01 PM [facility] 10-26-2024 Instructions Cristy Dunbar APRN.[facility] - 10/26/2024 2:43 PM EDT BLAND DIET If you are experiencing nausea or vomiting, you may want to try to eat some of the following foods. You May Eat: Well-cooked soft cereals Mashed potatoes Plain toast or bread, crackers Soup Plain Spaghetti Rice Macaroni (with cheese) Cottage Cheese Puddings Lowfat yogurts Lowfat Milk Vanilla ice milk Canned fruit (except pineapple) Very ripe bananas Apples without peels Plain meats (chicken, lean beef, turkey, fish-not fried) Cooked Vegetables (avoid gas formers like cabbage, beans and broccoli) Avoid dairy products if you are having diarrhea Do Not Eat: Chocolate Mustard Celery Peppermint Hot dogs Cabbage Pickles Hamburgers Fried foods Pastries Lunch meat Pizza Lettuce Potato chips, etc. Nuts, candies (or other concentrated sweets) Spicy or highly seasoned foods, i.e., Pepper, paprika, chili, tacos, garlic, onions documented in this encounter [facility] 10-26-2024 Note HNO ID: [id number] Author: CRISTY DUNBAR APRN.TRACK WATCHMAN Service: ? Author Type: Nurse Practitioner Type: Progress Notes Filed: 10/26/2024 15:26 Note Text: 10/26/2024 Patient presents with: Fatigue: And unable to eat due to nausea; increasingly worse in the last 3 weeks. SUBJECTIVE: This is a 39 year old that is here today for Above Complaints. For the last 3 weeks has had nausea and fatigue. Sometimes vomiting. Aggravated by eating and just breathing. Has tired cinnamon, Zofran, and Pepto with no relief. Admits to some generalized abdominal pain. Described as a rolling sensation.Diarrhea last night.Constipation three weeks ago. Denies weight loss, fevers, hematemesis, melana or hematochezia. PAST MEDICAL HISTORY Diagnosis Date Anemia Complication of anesthesia nausea and vomiting Episode of recurrent major depressive disorder 08/28/2018 Family history of epilepsy aunt Hepatic hemangioma 01/20/2024 Hepatitis in viral diseases classified elsewhere(573.1) when she had mono PMH - PAST MEDICAL HISTORY OF Right Sciatica Seizure disorder (HCC) 02/04/2018 ALLERGIES Bleach (Sodium Hypochlorite), Lamictal [Lamotrigine], [place] Trees [Trees], Topiramate, and Tree And Shrub Pollen MEDICATIONS Current Outpatient Medications Medication Sig hydrOXYzine HCl (ATARAX) 25 mg tablet Take 1-2 tablets by mouth at bedtime. Can cause drowsiness. clobetasol (TEMOVATE) 0.05 % cream Apply to affected area twice daily Saturday-Saturday. Take weekends off. Do not use on face, armpits, neck, or groin. metoclopramide HCl (REGLAN) 5 mg tablet Take 1 tablet by mouth three times a day. Clobetasol Propionate (TEMOVATE) 0.05 % external solution Apply to affected areas on scalp twice daily Saturday-Saturday, take weekends off. May repeat as needed. triamcinolone acetonide (KENALOG) 0.1 % cream Apply to affected areas twice daily for 2 weeks. lacosamide (VIMPAT) 150 mg tab Take 1 tablet by mouth two times a day for 180 days. levETIRAcetam (KEPPRA) 1,000 mg tablet Take 1 tablet by mouth two times a day. rizatriptan (MAXALT) 10 mg tablet Take 1 tablet (10 mg) by mouth as needed (at onset of headache. May repeat after 2 hours.). Do not exceed 30 mg per day. omeprazole (PRILOSEC) 40 mg capsule Take 1 capsule by mouth two times a day. No current facility-administered medications for this visit. Medications and allergies reviewed by this provider. SOCIAL HISTORY Social History Tobacco Use Smoking status: Never Smokeless tobacco: Never Vaping Use Vaping status: Never Used Substance Use Topics Alcohol use: Yes Comment: occasional Drug use: No REVIEW OF SYSTEMS All other reviewed and negative other than HPI. OBJECTIVE: BP 94/66 Pulse 60 Resp 16 Wt 67.9 kg (149 lb 12.8 oz) LMP 07/17/2023 (Exact Date) SpO2 98% BMI 26.54 kg/m? . Vital signs reviewed by this provider. APPEARANCE Well appearing, alert, in no acute distress, well-hydrated, well nourished. EYES PERRLA, conjunctiva and sclera normal. HEART RRR with normal S1 and S2, no murmurs, no gallops, no JVD appreciated LUNG clear to auscultation. No wheezes, rhonchi or rales ABDOMEN bowel sounds normoactive, no bruits, soft, non-tender, non-distended, without organomegaly or palpable masses. No TTP, rebound tenderness or guarding SKIN Skin color, texture, turgor normal, no suspicious rashes or lesions to exposed skin Hepatitis C Screening Never done Hepatitis B Vaccine(1 of 3 - 19+ 3-dose series) Never done Cervical Cancer Screening due on 11/24/2023 Mammogram Screening due on 11/05/2024 Covid-19 Vaccine( season) due on 07/01/2025 Influenza Vaccine(Season Ended) due on 02/22/2025 DTaP,Tdap,Td Vaccine(4 - Td or Tdap) due on 05/24/2034 HIV Screening Completed ASSESSMENT/PLAN: 1. Nausea - ICD9: 787.02, ICD10: R11.0 (primary diagnosis) - no red flag symptoms or exam findings - red flag symptoms discussed, verbalizes understanding - CONSULT TO GASTROENTEROLOGY - XR ABDOMEN 1V SUPINE - COMPREHENSIVE METABOLIC PANEL - COMPLETE BLOOD COUNT AND DIFFERENTIAL - LIPASE - SUCRALFATE 100 MG/ML ORAL SUSPENSION - follow-up with gastroenterology to ER with red flag symptoms 2. Generalized abdominal pain - ICD9: 789.07, ICD10: R10.84 Differential Diagnosis includes GERD, PUD, Gastritis, and IBS - [place] low residue diet - CONSULT TO GASTROENTEROLOGY - XR ABDOMEN 1V SUPINE - COMPREHENSIVE METABOLIC PANEL - COMPLETE BLOOD COUNT AND DIFFERENTIAL - LIPASE - follow-up with gastroenterology to ER with red flag symptoms Cristy Dunbar, BLOCKLAYER.TRACK WATCHMAN Prescription instructions reviewed with patient as applicable. Patient advised if symptoms do not improve or if symptoms worsen sooner, to contact their primary care physician. Potential red flag symptoms discussed with the patient. Reviewed appropriate action plan to take if red flag symptoms occur. Patient agreeable to treatment plan. Medical Decision (more content not included)... [facility] 10-26-2024 History of Present illness Narrative 10/26/2024 Patient presents with: Fatigue: And unable to eat due to nausea; increasingly worse in the last 3 weeks. SUBJECTIVE: This is a 39 year old that is here today for Above Complaints. For the last 3 weeks has had nausea and fatigue. Sometimes vomiting. Aggravated by eating and just breathing. Has tired cinnamon, Zofran, and Pepto with no relief. Admits to some generalized abdominal pain. Described as a rolling sensation.Diarrhea last night.Constipation three weeks ago. Denies weight loss, fevers, hematemesis, melana or hematochezia. PAST MEDICAL HISTORY Diagnosis Date Anemia Complication of anesthesia nausea and vomiting Episode of recurrent major depressive disorder 08/28/2018 Family history of epilepsy aunt Hepatic hemangioma 01/20/2024 Hepatitis in viral diseases classified elsewhere(573.1) when she had mono PMH - PAST MEDICAL HISTORY OF Right Sciatica Seizure disorder (HCC) 02/04/2018 ALLERGIES Bleach (Sodium Hypochlorite), Lamictal [Lamotrigine], [place] [Trees], Topiramate, and Tree And Shrub Pollen MEDICATIONS Current Outpatient Medications Medication Sig hydrOXYzine HCl (ATARAX) 25 mg tablet Take 1-2 tablets by mouth at bedtime. Can cause drowsiness. clobetasol (TEMOVATE) 0.05 % cream Apply to affected area twice daily Saturday-Saturday. Take weekends off. Do not use on face, armpits, neck, or groin. metoclopramide HCl (REGLAN) 5 mg tablet Take 1 tablet by mouth three times a day. Clobetasol Propionate (TEMOVATE) 0.05 % external solution Apply to affected areas on scalp twice daily Saturday-Saturday, take weekends off. May repeat as needed. triamcinolone acetonide (KENALOG) 0.1 % cream Apply to affected areas twice daily for 2 weeks. lacosamide (VIMPAT) 150 mg tab Take 1 tablet by mouth two times a day for 180 days. levETIRAcetam (KEPPRA) 1,000 mg tablet Take 1 tablet by mouth two times a day. rizatriptan (MAXALT) 10 mg tablet Take 1 tablet (10 mg) by mouth as needed (at onset of headache. May repeat after 2 hours.). Do not exceed 30 mg per day. omeprazole (PRILOSEC) 40 mg capsule Take 1 capsule by mouth two times a day. No current facility-administered medications for this visit. Medications and allergies reviewed by this provider. SOCIAL HISTORY Social History Tobacco Use Smoking status: Never Smokeless tobacco: Never Vaping Use Vaping status: Never Used Substance Use Topics Alcohol use: Yes Comment: occasional Drug use: No REVIEW OF SYSTEMS All other reviewed and negative other than HPI. OBJECTIVE: BP 94/66 Pulse 60 Resp 16 Wt 67.9 kg (149 lb 12.8 oz) LMP 07/17/2023 (Exact Date) SpO2 98% BMI 26.54 kg/m . Vital signs reviewed by this provider. APPEARANCE Well appearing, alert, in no acute distress, well-hydrated, well nourished. EYES PERRLA, conjunctiva and sclera normal. HEART RRR with normal S1 and S2, no murmurs, no gallops, no JVD appreciated LUNG clear to auscultation. No wheezes, rhonchi or rales ABDOMEN bowel sounds normoactive, no bruits, soft, non-tender, non-distended, without organomegaly or palpable masses. No TTP, rebound tenderness or guarding SKIN Skin color, texture, turgor normal, no suspicious rashes or lesions to exposed skin Hepatitis C Screening Never done Hepatitis B Vaccine(1 of 3 - 19+ 3-dose series) Never done Cervical Cancer Screening due on 11/24/2023 Mammogram Screening due on 11/05/2024 Covid-19 Vaccine( season) due on 07/01/2025 Influenza Vaccine(Season Ended) due on 02/22/2025 DTaP,Tdap,Td Vaccine(4 - Td or Tdap) due on 05/24/2034 HIV Screening Completed ASSESSMENT/PLAN: 1. Nausea - ICD9: 787.02, ICD10: R11.0 (primary diagnosis) - no red flag symptoms or exam findings - red flag symptoms discussed, verbalizes understanding - CONSULT TO GASTROENTEROLOGY - XR ABDOMEN 1V SUPINE - COMPREHENSIVE METABOLIC PANEL - COMPLETE BLOOD COUNT AND DIFFERENTIAL - LIPASE - SUCRALFATE 100 MG/ML ORAL SUSPENSION - follow-up with gastroenterology to ER with red flag symptoms 2. Generalized abdominal pain - ICD9: 789.07, ICD10: R10.84 Differential Diagnosis includes GERD, PUD, Gastritis, and IBS - [place] low residue diet - CONSULT TO GASTROENTEROLOGY - XR ABDOMEN 1V SUPINE - COMPREHENSIVE METABOLIC PANEL - COMPLETE BLOOD COUNT AND DIFFERENTIAL - LIPASE - follow-up with gastroenterology to ER with red flag symptoms Cristy Dunbar APRN.TRACK WATCHMAN\ Prescription instructions reviewed with patient as applicable. Patient advised if symptoms do not improve or if symptoms worsen sooner, to contact their primary care physician. Potential red flag symptoms discussed with the patient. Reviewed appropriate action plan to take if red flag symptoms occur. Patient agreeable to treatment plan. Medical Decision Making: Problems: Moderate: New problem with uncertain prognosis Data: Unique test(s) ordered: 3+ Risk: Moderate: Drug management Medical Decision Making Level: 4 - Moderate documented in this encounter [facility] 09-22-2024 Telephone encounter Note Request declined - Refills still showing active and available at local pharmacy. [facility] 09-22-2024 Miscellaneous Notes Request declined - Refills still showing active and available at local pharmacy. documented in this encounter [facility] 09-17-2024 Telephone encounter Note LVMTCB [facility] 09-17-2024 Miscellaneous Notes LVMTCB FINAL DIAGNOSIS A. Skin, mid lower back, punch biopsy: - Interface dermatitis, see comment. WB/RTM 09/14/2024 at 1501 EDT Diagnosis Comment The histological sections demonstrate an epidermis with compact hyperkeratosis and focal spongiosis. There is prominent vacuolization of basal layer associated with a dermal and lichenoid and superficial perivascular lymphohistiocytic inflammatory infiltrate. The deep dermis is spared. In addition, elastosis, pigmented macrophages and focal melanoderma are noted. The clinical history and photographs are reviewed. 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 The differential diagnosis includes hypersensitivity dermatitis. Gross Description A. Skin Received in formalin is a cylindrical segment of skin and subcutaneous tissue measuring 0.4 x 0.4 x 0.7 cm. On the skin surface there is a 0.4 cm, pugh to pugh-white flat scaly area. The specimen is bisected. Totally submitted in one cassette. [facility] September 11, 2024 3:15 PM Gross examination performed at [facility], [address] [place] [address] Results discussed with patient. Patient notes improvement with clobetasol cream. Recommend patient start 10 mg Zyrtec and 20 mg pepcid in AM. Continue taking 25 mg Hydroxyzine tablet in PM as tolerated. Patient may increase to 20 mg Pepcid twice daily if rash continues to flare. Discussed adding singulair in future. Follow up in 6-8 weeks. René Bran PA-C documented in this encounter [facility] 09-17-2024 Telephone encounter Note FINAL DIAGNOSIS A. Skin, mid lower back, punch biopsy: - Interface dermatitis, see comment. WB/RTM 09/14/2024 at 1501 EDT Diagnosis Comment The histological sections demonstrate an epidermis with compact hyperkeratosis and focal spongiosis. There is prominent vacuolization of basal layer associated with a dermal and lichenoid and superficial perivascular lymphohistiocytic inflammatory infiltrate. The deep dermis is spared. In addition, elastosis, pigmented macrophages and focal melanoderma are noted. The clinical history and photographs are reviewed. 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 The differential diagnosis includes hypersensitivity dermatitis. Gross Description A. Skin Received in formalin is a cylindrical segment of skin and subcutaneous tissue measuring 0.4 x 0.4 x 0.7 cm. On the skin surface there is a 0.4 cm, pugh to pugh-white flat scaly area. The specimen is bisected. Totally submitted in one cassette. JC September 11, 2024 3:15 PM Gross examination performed at [facility], [address] [place] [address] Results discussed with patient. Patient notes improvement with clobetasol cream. Recommend patient start 10 mg Zyrtec and 20 mg pepcid in AM. Continue taking 25 mg Hydroxyzine tablet in PM as tolerated. Patient may increase to 20 mg Pepcid twice daily if rash continues to flare. Discussed adding singulair in future. Follow up in 6-8 weeks. René Bran PA-C [facility] 09-10-2024 Instructions René Bran PA-C - 09/10/2024 4:24 PM EDT - OTC ANTIHISTAMINE daily-10 mg Claritin and 20 mg Pepcid in AM. - HYDROXYZINE (Atarax) 25-50 mg at night, discussed can cause drowsiness -Clobetasol 0.05% cream Apply to affected area twice daily Saturday-Saturday. Take weekends off. Do not use on face, armpits, neck, or groin. CARE FOR SITE WITH SUTURES Please follow these instructions for daily wound care: 1. Wash the area every day with gentle soap and water. 2. Apply a thin layer of Vaseline or Aquaphor to the wound site to keep the area slightly greasy at all time (this helps to prevent scabbing). Please do not use an old tub of ointment as this can introduce germs into your wound and cause infection. 3. Cover with a bandage and continue this daily process until the wound is healed. Do not leave a soiled or wet bandage on the wound. 4. If you are experiencing discomfort you may use a cool compress, elevate the area or take over the counter pain relievers. Return for suture removal in 10-12 days -Keep the area clean and dry with the bandage in place the day of surgery. -Please make sure you have a suture removal appointment scheduled. -You may shower, but do not soak in a bathtub, hot tub, pool, saba, etc until after the wound has healed. -DO NOT USE NEOSPORIN OR BACITRACIN as there is a fairly high incidence of allergic response to these products. -You may experience some mild discomfort, redness, swelling, and/or a clear discharge from the wound after your procedure. Severe pain, worsening swelling, and foul-smelling discharge from the site are NOT to be expected. If you have concerns about how your wounds are healing, please send your provider a Mychart message or call . documented in this encounter [facility] 09-10-2024 History of Present illness Narrative Images from the original note were not included. ESTABLISHED PATIENT 09/10/2024 Last Visit in Dermatology: 08/04/2024 Chief Complaint: Rash (Follow up ) HPI: Yamil Ng is a 39 year old female. Patient presents with: Rash: Follow up #1 Rash follow up Location: Left Inframammary Fold, Pubic, Right Inframammary Fold Symptoms/Course: better, spreading up to back and under breasts. Itchy, red Current Treatment: triamcinolone cream Past Treatment: failed treatment with miconazole cream, tinactin, and lotrisone Pertinent History: History of skin cancer: No History of atypical nevi: No History of blistering sunburns / tanning bed use: No Organ transplant / Immunosuppression: No Pacemaker / Defibrillator / Heart Valve Replacement: No / : No Family history of skin cancer: No PAST MEDICAL HISTORY Diagnosis Date Anemia Complication of anesthesia nausea and vomiting Episode of recurrent major depressive disorder (HCC) 08/28/2018 Family history of epilepsy aunt Hepatic hemangioma 01/20/2024 Hepatitis in viral diseases classified elsewhere(573.1) when she had mono [facility] - PAST MEDICAL HISTORY OF Right Sciatica Seizure disorder (HCC) 02/04/2018 Social History Tobacco Use Smoking status: Never Smokeless tobacco: Never Vaping Use Vaping status: Never Used Substance Use Topics Alcohol use: Yes Comment: occasional Drug use: No ALLERGIES Allergen Reactions Bleach (Sodium Hypo* Rash Lamictal [Lamotrigi* Rash [place] [Trees] Rash, Hives Topiramate Rash Tree And Shrub Poll* Unknown Current Outpatient Medications Medication Sig metoclopramide HCl (REGLAN) 5 mg tablet Take 1 tablet by mouth three times a day. Clobetasol Propionate (TEMOVATE) 0.05 % external solution Apply to affected areas on scalp twice daily Saturday-Saturday, take weekends off. May repeat as needed. triamcinolone acetonide (KENALOG) 0.1 % cream Apply to affected areas twice daily for 2 weeks. lacosamide (VIMPAT) 150 mg tab Take 1 tablet by mouth two times a day for 180 days. levETIRAcetam (KEPPRA) 1,000 mg tablet Take 1 tablet by mouth two times a day. rizatriptan (MAXALT) 10 mg tablet Take 1 tablet (10 mg) by mouth as needed (at onset of headache. May repeat after 2 hours.). Do not exceed 30 mg per day. hydrOXYzine HCl (ATARAX) 25 mg tablet Take 1-2 tablets by mouth at bedtime. Can cause drowsiness. clobetasol (TEMOVATE) 0.05 % cream Apply to affected area twice daily Saturday-Saturday. Take weekends off. Do not use on face, armpits, neck, or groin. omeprazole (PRILOSEC) 40 mg capsule Take 1 capsule by mouth two times a day. ROS: Skin as above. PHYSICAL EXAM: Participation of a fellow, resident, medical student, or advanced practice provider student in performing the sensitive examination was discussed with the patient or authorized reimbursement representative. The patient or authorized reimbursement representative has agreed to proceed with the sensitive examination. [place] Skin Type: II The patient is a pleasant female in no apparent distress. Alert and oriented x 3. Appears well developed, well nourished, and in otherwise good health. A skin exam of the (waist up) scalp, face, ears, neck, chest, abdomen, back, and bilateral upper extremities including hands and nails was performed. IMPRESSION Left Breast, Mid Lower Back, Right Abdomen (side) - Lower, Right Breast, Right Suprapubic Area Scattered slightly erythematous papules and plaques r/o eczematous dermatitis vs other ASSESSMENT & PLAN RASH AND NONSPECIFIC SKIN ERUPTION Left Breast, Mid Lower Back, Right Abdomen (side) - Lower, Right Breast, Right Suprapubic Area -Given clinical history and distribution favor Eczematous Dermatitis vs other -Recommend punch biopsy as patient has tied and failed miconazole, lotrisone, and triamcinolone cream -Discussed likely etiology and management options Plan: -CLOBETASOL 0.05% cream. Apply twice daily to affected area(s) for up to 5 days per week as needed. Do not apply more than 21 days per month. Do not apply to face, eyelids, underarms, under breasts or in groin. Counseled patient regarding side effects of topical steroids including, but are not limited to: atrophy, striae, telangiectasias, pigmentary changes. Limit application to affected areas on skin only. - OTC ANTIHISTAMINE daily-10 mg Claritin and 20 mg Pepcid in AM. - HYDROXYZINE (Atarax) 25-50 mg at night, discussed can cause drowsiness -Recommend gentle skin care with fragrance free products such as Vanicream, Cetaphil, CeraVe SKIN / NAIL BIOPSY - Mid Lower Back Type of biopsy: punch Informed consent: discussed and consent obtained Timeout: patient name, date of , surgical site, and procedure verified Procedure prep: Patient was prepped and draped in usual sterile fashion Prep type: Isopropyl alcohol Anesthesia: the lesion was anesthetized in a standard fashion Anesthetic: 1% lidocaine w/ epinephrine 1-100,000 local infiltration Punch size: 4 mm Suture type: Prolene (polypropylene) Hemostasis achieved with: suture Outcome: patient tolerated procedure well Post-procedure details: sterile dressing applied and wound care instructions given Specimen A - Surgical Pathology Related Medications triamcinolone acetonide (KENALOG) 0.1 % cream Apply to affected areas twice daily for 2 weeks. hydrOXYzine HCl (ATARAX) 25 mg tablet Take 1-2 tablets by mouth at bedtime. Can cause drowsiness. clobetasol (TEMOVATE) 0.05 % cream Apply to affected area twice daily Saturday-Saturday. Take weekends off. Do not use on face, armpits, neck, or groin. Procedure: punch biopsy Informed Consent Consent Obtained: Verbal [place] Protocol A moment to CARE was completed SIGN IN Personnel directly involved with the procedure wore the appropriate PPE Special Equipment: N/A Patient/Surrogate Stated/Verified: Patient name, Date of , Relevant allergies and Intended procedure TIME OUT No relevant labs, photos, and/or imaging studies were applicable for review. Consent documented and matches the intended procedure Correct side/site marked and visible. Medications required for procedure verified. Fire risk assessed and interventions discussed. No implant(s) inserted. SIGN OUT All instruments, equipment, possible retained foreign bodies accounted for. Follow Up: Return PRN or sooner for questions and concerns. Attestation: Intake completed by: Carmen Quiroz LPN The documentation for this note was completed by René Bran PA-C I agree with the Chief Complaint, ROS, and Past Histories independently gathered by the clinical sales support representative and the remaining scribed note accurately describes my personal service to the patient. René Bran PA-C September 10, 2024 6:09 PM Medical Decision Making: Problems: Moderate: 1+ chronic illnesses with change Risk: Moderate: Drug management Medical Decision Making Level: 4 - Moderate documented in this encounter [facility] 09-10-2024 Note HNO ID: [id number] Author: RENÉ BRAN PA-C Service: ? Author Type: Physician Cloth Shader Type: Progress Notes Filed: 09/10/2024 18:11 Note Text: ESTABLISHED PATIENT 09/10/2024 Last Visit in Dermatology: 08/04/2024 Chief Complaint: Rash (Follow up ) HPI: Yamil Ng is a 39 year old female. Patient presents with: Rash: Follow up #1 Rash follow up Location: Left Inframammary Fold, Pubic, Right Inframammary Fold Symptoms/Course: better, spreading up to back and under breasts. Itchy, red Current Treatment: triamcinolone cream Past Treatment: failed treatment with miconazole cream, tinactin, and lotrisone Pertinent History: History of skin cancer: No History of atypical nevi: No History of blistering sunburns / tanning bed use: No Organ transplant / Immunosuppression: No Pacemaker / Defibrillator / Heart Valve Replacement: No / : No Family history of skin cancer: No PAST MEDICAL HISTORY Diagnosis Date Anemia Complication of anesthesia nausea and vomiting Episode of recurrent major depressive disorder (HCC) 08/28/2018 Family history of epilepsy aunt Hepatic hemangioma 01/20/2024 Hepatitis in viral diseases classified elsewhere(573.1) when she had mono PMH - PAST MEDICAL HISTORY OF Right Sciatica Seizure disorder (HCC) 02/04/2018 Social History Tobacco Use Smoking status: Never Smokeless tobacco: Never Vaping Use Vaping status: Never Used Substance Use Topics Alcohol use: Yes Comment: occasional Drug use: No ALLERGIES Allergen Reactions Bleach (Sodium Hypo* Rash Lamictal [Lamotrigi* Rash [place] [Trees] Rash, Hives Topiramate Rash Tree And Shrub Poll* Unknown Current Outpatient Medications Medication Sig metoclopramide HCl (REGLAN) 5 mg tablet Take 1 tablet by mouth three times a day. Clobetasol Propionate (TEMOVATE) 0.05 % external solution Apply to affected areas on scalp twice daily Saturday-Saturday, take weekends off. May repeat as needed. triamcinolone acetonide (KENALOG) 0.1 % cream Apply to affected areas twice daily for 2 weeks. lacosamide (VIMPAT) 150 mg tab Take 1 tablet by mouth two times a day for 180 days. levETIRAcetam (KEPPRA) 1,000 mg tablet Take 1 tablet by mouth two times a day. rizatriptan (MAXALT) 10 mg tablet Take 1 tablet (10 mg) by mouth as needed (at onset of headache. May repeat after 2 hours.). Do not exceed 30 mg per day. hydrOXYzine HCl (ATARAX) 25 mg tablet Take 1-2 tablets by mouth at bedtime. Can cause drowsiness. clobetasol (TEMOVATE) 0.05 % cream Apply to affected area twice daily Saturday-Saturday. Take weekends off. Do not use on face, armpits, neck, or groin. omeprazole (PRILOSEC) 40 mg capsule Take 1 capsule by mouth two times a day. ROS: Skin as above. PHYSICAL EXAM: Participation of a fellow, resident, medical student, or advanced practice provider student in performing the sensitive examination was discussed with the patient or authorized reimbursement representative. The patient or authorized reimbursement representative has agreed to proceed with the sensitive examination. [place] Skin Type: II The patient is a pleasant female in no apparent distress. Alert and oriented x 3. Appears well developed, well nourished, and in otherwise good health. A skin exam of the (waist up) scalp, face, ears, neck, chest, abdomen, back, and bilateral upper extremities including hands and nails was performed. IMPRESSION Left Breast, Mid Lower Back, Right Abdomen (side) - Lower, Right Breast, Right Suprapubic Area Scattered slightly erythematous papules and plaques r/o eczematous dermatitis vs other ASSESSMENT AND PLAN RASH AND NONSPECIFIC SKIN ERUPTION Left Breast, Mid Lower Back, Right Abdomen (side) - Lower, Right Breast, Right Suprapubic Area -Given clinical history and distribution favor Eczematous Dermatitis vs other -Recommend punch biopsy as patient has tied and failed miconazole, lotrisone, and triamcinolone cream -Discussed likely etiology and management options Plan: -CLOBETASOL 0.05% cream. Apply twice daily to affected area(s) for up to 5 days per week as needed. Do not apply more than 21 days per month. Do not apply to face, eyelids, underarms, under breasts or in groin. Counseled patient regarding side effects of topical steroids including, but are not limited to: atrophy, striae, telangiectasias, pigmentary changes. Limit application to affected areas on skin only. - OTC ANTIHISTAMINE daily-10 mg Claritin and 20 mg Pepcid in AM. - HYDROXYZINE (Atarax) 25-50 mg at night, discussed can cause drowsiness -Recommend gentle skin care with fragrance free products such as Vanicream, Cetaphil, CeraVe SKIN / NAIL BIOPSY - Mid Lower Back Type of biopsy: punch Informed consent: discussed and consent obtained Timeout: patient name, date of , surgical site, and procedure verified Procedure prep: Patient was prepped and draped in usual sterile fashion Prep (more content not included)... [facility] 08-26-2024 History of Present illness Narrative 08/25/2024 Patient presents with: ER F/U: [facility] for UTI/flank pain. Last dose of ATB tonight. SUBJECTIVE: This is a 39 year old that is here today for Above Complaints. HOSPITAL/ER FOLLOW UP: Reason for visit: Left flank pain Which facility: [facility] Date of visit: 08/22/2024 Diagnosis: flank pain, uncertain cause Testing done: blood work, UA, CT ABD/PEL Treatment given: hydrocodone and Zofran Started Keflex [facility]. Has one more dose left. Feeling some better but not 100%. Still with left flank. Reports it is constant. Described as aching and at times can shoot pain. Not taking anything for pain. Denies injury, fevers, chills, saddle anaesthesia, extremity numbness, tingling, weakness, abdominal pain, nausea, vomiting, dysuria or hematuria ER records reviewed PAST MEDICAL HISTORY Diagnosis Date Anemia Complication of anesthesia nausea and vomiting Episode of recurrent major depressive disorder (HCC) 08/28/2018 Family history of epilepsy aunt Hepatic hemangioma 01/20/2024 Hepatitis in viral diseases classified elsewhere(573.1) when she had mono PMH - PAST MEDICAL HISTORY OF Right Sciatica Seizure disorder (HCC) 02/04/2018 ALLERGIES Bleach (Sodium Hypochlorite), Lamictal [Lamotrigine], [place] [Trees], Topiramate, and Tree And Shrub Pollen MEDICATIONS Current Outpatient Medications Medication Sig cephALEXin (KEFLEX) 500 mg capsule Take 1 capsule by mouth two times a day for 5 days. Clobetasol Propionate (TEMOVATE) 0.05 % external solution Apply to affected areas on scalp twice daily Saturday-Saturday, take weekends off. May repeat as needed. triamcinolone acetonide (KENALOG) 0.1 % cream Apply to affected areas twice daily for 2 weeks. lacosamide (VIMPAT) 150 mg tab Take 1 tablet by mouth two times a day for 180 days. levETIRAcetam (KEPPRA) 1,000 mg tablet Take 1 tablet by mouth two times a day. fremanezumab-vfrm (UrbanTakeoverOVAllylix AUTOINJECTOR) 225 mg/1.5 mL auto-injector Inject 1.5 mL subcutaneously once every month. Do not shake. rizatriptan (MAXALT) 10 mg tablet Take 1 tablet (10 mg) by mouth as needed (at onset of headache. May repeat after 2 hours.). Do not exceed 30 mg per day. omeprazole (PRILOSEC) 40 mg capsule Take 1 capsule by mouth two times a day. No current facility-administered medications for this visit. Medications and allergies reviewed by this provider. SOCIAL HISTORY Social History Tobacco Use Smoking status: Never Smokeless tobacco: Never Vaping Use Vaping status: Never Used Substance Use Topics Alcohol use: Yes Comment: occasional Drug use: No REVIEW OF SYSTEMS All other reviewed and negative other than HPI. OBJECTIVE: BP 108/62 Pulse 65 Resp 18 Wt 68.3 kg (150 lb 9.6 oz) LMP 07/17/2023 (Exact Date) SpO2 98% BMI 26.68 kg/m . Vital signs reviewed by this provider. APPEARANCE Well appearing, alert, in no acute distress, well-hydrated, well nourished. EYES conjunctiva and sclera normal. HEART RRR with normal S1 and S2, no murmurs, no gallops, no JVD appreciated LUNG clear to auscultation. No wheezes, rhonchi or rales ABDOMEN bowel sounds normoactive, no bruits, soft, non-tender, non-distended, no tenderness to palpation BACK: good flexion and extension, negative SLR test. Mild TTP left flank SKIN Skin color, texture, turgor normal, no suspicious rashes or lesions to exposed skin Hepatitis C Screening Never done Hepatitis B Vaccine(1 of 3 - 19+ 3-dose series) Never done Cervical Cancer Screening due on 11/24/2023 Mammogram Screening due on 11/05/2024 Influenza Vaccine(1) due on 12/21/2024 Covid-19 Vaccine( - 2023- season) due on 07/01/2025 DTaP,Tdap,Td Vaccine(4 - Td or Tdap) due on 05/24/2034 HIV Screening Completed ASSESSMENT/PLAN: 1. Left flank pain - ICD9: 789.09, ICD10: R10.9 - possible muscular - take last dose of antibiotic - no red flag symptoms or exam findings - red flag symptoms discussed, verbalizes understanding - recommend OTC pain relievers as directed on packaging - may use heat/ice for 15 minutes at a time - follow-up if symptoms fail to improve to ER with red flag symptoms Cristy Dunbar, BLOCKLAYER.TRACK WATCHMAN Prescription instructions reviewed with patient as applicable. Patient advised if symptoms do not improve or if symptoms worsen sooner, to contact their primary care physician. Potential red flag symptoms discussed with the patient. Reviewed appropriate action plan to take if red flag symptoms occur. Patient agreeable to treatment plan. Medical Decision Making: Problems: Low: Acute, uncomplicated illness or injury Risk: Low: Low risk from testing/treatment Medical Decision Making Level: 3 - Low documented in this encounter [facility] 08-26-2024 Note HNO ID: [id number] Author: CRISTY DUNBAR APRN.BHARAT Service: ? Author Type: Nurse Practitioner Type: Progress Notes Filed: 08/26/2024 14:34 Note Text: 08/25/2024 Patient presents with: ER F/U: [facility] for UTI/flank pain. Last dose of ATB tonight. SUBJECTIVE: This is a 39 year old that is here today for Above Complaints. HOSPITAL/ER FOLLOW UP: Reason for visit: Left flank pain Which facility: [facility] Date of visit: 08/22/2024 Diagnosis: flank pain, uncertain cause Testing done: blood work, UA, CT ABD/PEL Treatment given: hydrocodone and Zofran Started K[facility]. Has one more dose left. Feeling some better but not 100%. Still with left flank. Reports it is constant. Described as aching and at times can shoot pain. Not taking anything for pain. Denies injury, fevers, chills, saddle anaesthesia, extremity numbness, tingling, weakness, abdominal pain, nausea, vomiting, dysuria or hematuria ER records reviewed PAST MEDICAL HISTORY Diagnosis Date Anemia Complication of anesthesia nausea and vomiting Episode of recurrent major depressive disorder (HCC) 08/28/2018 Family history of epilepsy aunt Hepatic hemangioma 01/20/2024 Hepatitis in viral diseases classified elsewhere(573.1) when she had mono PMH - PAST MEDICAL HISTORY OF Right Sciatica Seizure disorder (HCC) 02/04/2018 ALLERGIES Bleach (Sodium Hypochlorite), Lamictal [Lamotrigine], [place] [Trees], Topiramate, and Tree And Shrub Pollen MEDICATIONS Current Outpatient Medications Medication Sig cephALEXin (KEFLEX) 500 mg capsule Take 1 capsule by mouth two times a day for 5 days. Clobetasol Propionate (TEMOVATE) 0.05 % external solution Apply to affected areas on scalp twice daily Saturday-Saturday, take weekends off. May repeat as needed. triamcinolone acetonide (KENALOG) 0.1 % cream Apply to affected areas twice daily for 2 weeks. lacosamide (VIMPAT) 150 mg tab Take 1 tablet by mouth two times a day for 180 days. levETIRAcetam (KEPPRA) 1,000 mg tablet Take 1 tablet by mouth two times a day. fremanezumab-vfrm (UrbanTakeoverOVY AUTOINJECTOR) 225 mg/1.5 mL auto-injector Inject 1.5 mL subcutaneously once every month. Do not shake. rizatriptan (MAXALT) 10 mg tablet Take 1 tablet (10 mg) by mouth as needed (at onset of headache. May repeat after 2 hours.). Do not exceed 30 mg per day. omeprazole (PRILOSEC) 40 mg capsule Take 1 capsule by mouth two times a day. No current facility-administered medications for this visit. Medications and allergies reviewed by this provider. SOCIAL HISTORY Social History Tobacco Use Smoking status: Never Smokeless tobacco: Never Vaping Use Vaping status: Never Used Substance Use Topics Alcohol use: Yes Comment: occasional Drug use: No REVIEW OF SYSTEMS All other reviewed and negative other than HPI. OBJECTIVE: BP 108/62 Pulse 65 Resp 18 Wt 68.3 kg (150 lb 9.6 oz) LMP 07/17/2023 (Exact Date) SpO2 98% BMI 26.68 kg/m? . Vital signs reviewed by this provider. APPEARANCE Well appearing, alert, in no acute distress, well-hydrated, well nourished. EYES conjunctiva and sclera normal. HEART RRR with normal S1 and S2, no murmurs, no gallops, no JVD appreciated LUNG clear to auscultation. No wheezes, rhonchi or rales ABDOMEN bowel sounds normoactive, no bruits, soft, non-tender, non-distended, no tenderness to palpation BACK: good flexion and extension, negative SLR test. Mild TTP left flank SKIN Skin color, texture, turgor normal, no suspicious rashes or lesions to exposed skin Hepatitis C Screening Never done Hepatitis B Vaccine(1 of 3 - 19+ 3-dose series) Never done Cervical Cancer Screening due on 11/24/2023 Mammogram Screening due on 11/05/2024 Influenza Vaccine(1) due on 12/21/2024 Covid-19 Vaccine( - 2023- season) due on 07/01/2025 DTaP,Tdap,Td Vaccine(4 - Td or Tdap) due on 05/24/2034 HIV Screening Completed ASSESSMENT/PLAN: 1. Left flank pain - ICD9: 789.09, ICD10: R10.9 - possible muscular - take last dose of antibiotic - no red flag symptoms or exam findings - red flag symptoms discussed, verbalizes understanding - recommend OTC pain relievers as directed on packaging - may use heat/ice for 15 minutes at a time - follow-up if symptoms fail to improve to ER with red flag symptoms Cristy Dunbar APRN.TRACK WATCHMAN Prescription instructions reviewed with patient as applicable. Patient advised if symptoms do not improve or if symptoms worsen sooner, to contact their primary care physician. Potential red flag symptoms discussed with the patient. Reviewed appropriate action plan to take if red flag symptoms occur. Patient agreeable to treatment plan. Medical Decision Making: Problems: Low: Acute, uncomplicated illness or injury Risk: Low: Low risk from testing/treatment Medical Decision Making Level: 3 - Low [facility] 08-26-2024 Note HNO ID: [id number] Author: MARTINE MARINELLI APRN.TRACK WATCHMAN Service: ? Author Type: Nurse Practitioner Type: Progress Notes Filed: 08/26/2024 11:55 Note Text: [facility] for General Neurology Follow-Up Patient Evaluation CHIEF COMPLAINT: headache follow-up Yamil Ng is a 39 year old female with past medical history of anemia, depression, epilepsy, migraine, seizure disorder. She returns for follow-up after last visit on 05/22/2024. She is unaccompanied. INTERVAL HISTORY: Patient is still experiencing 1-2 migraine weekly followed by almost daily mild headaches lasting for couple hours. Her migraines lasting for several hours. The most concerning are the associated symptoms such as nausea and osmophobia. Rates her migraine headaches are 5-6/10. She has not used any dosage of rizatriptan due to the fact that she has forgotten to keep it in her purse. Her nausea is the most concerning symptoms. She has Zofran which she has used without effect. Different food smells aggravate her migraines as well. 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 She is on Vimpat and Keppra for seizures which she follows with epilepsy center for. Reports no seizures recently. Qulipta and Ajovy were ordered and PA were sent. Both were denied in the past. Last Filed Values Date of Most Recent Assessment and Plan 05/22/24 Specialty General Neurology Assessment This is a 38 year old female with past medical history of anemia, depression, epilepsy, migraine, and seizure disorder presenting with headaches which have began when she was 14-15 years old and worsened in the last 6-8 months. She was seen by Dr. Reddy on May 2023 and she has tried Topamax and propranolol as preventative with no effect. She was never prescribed rescue medication for her migraines. She is experiencing 4 migraines monthly with almost daily headaches rated from 6-9/10 throbbing, pressure, aching headaches associated with photo/phono sensitivity, nausea, vomiting, blurred vision, and dizziness which last for 2 to 4 hours. She finds some headache improvement from massages and sleep. She has epilepsy history. She is on Vimpat 150 mg twice daily and levetiracetam 1000 mg twice daily. Neurological exam is notable for decreased sensation of the right foot on the medial and lateral aspect of the foot along the dermatomes of L4-S1 and decreased temperature sensation of the right lower extremity. The rest of the exam is unremarkable. MRA/MRV/MRI brain done in May 2023 are unremarkable and reassuring. Low concern for central etiology at this time. Etiology of patient's symptoms is consistent with migraine without aura with status migrainosus. Discussed preventative and rescue medications for migraine headaches with patient and who is accompanying patient in this visit. Patient has tried Topamax and propranolol with no effect on her headaches. Next first-line as a preventative medication is TCAs such as nortriptyline or amitriptyline which lowers the seizure threshold. Recommend Qulipta 60 mg as a preventative. Will send PA. Will start patient on rizatriptan 10 mg as a rescue medication for migraines. Dosage, usage, and side effects of triptans were discussed with patient and printed information was provided on after visit summary Patient denies any personal history of [place] or CVA. Discussed medication dosage, usage, goals of therapy, and side effects including drowsiness, dizziness AND chest/throat tightness. Given instructions on use; take at onset of [facility] can repeat in 2 hours if needed. No more than 2 doses per 24 hours AND 3 doses per week. Patient verbalizes understanding. Well prescribe Medrol pack to break of the headache cycle. There is subjective report of patient previously being prescribed steroids and have tolerated them well. Discussed when to seek further evaluation to emergency department. Plan was discussed with patient and who agreed to the below: Plan - Qulipta 60 mg daily-migraine prevention -Rizatriptan 10 mg as needed-rescue medication for migraine -Medrol pack-to break of the cycle of daily headaches -Follow-up in 3 months or sooner if symptoms fail to improve Today: Will resend the prior authorization for Qulipta as a preventative medication for patient. Will trial Reglan 5 mg for her nausea. Discussed to probably use a mask and spray a sent in the mask that patient can tolerate such as peppermint or lavender which patient prefers. Headache Description HEADACHE LOCATION: temporal region bilateral, occipital region bilateral, and cervical region bilateral Onset: Headaches began >25 years ago Quality: aching, pressure, and throbbing Photophobia? Yes Phonophobia? Yes Smells: yes Nausea? Yes Vomitting? Yes Aura? No None Worse with activity? Yes Severe?5-6/10 Frequency: >4 times a month (more content not included)... [facility] 08-26-2024 History of Present illness Narrative Images from the original note were not included. [facility] Follow-Up Patient Evaluation CHIEF COMPLAINT: headache follow-up Yamil Ng is a 39 year old female with past medical history of anemia, depression, epilepsy, migraine, seizure disorder. She returns for follow-up after last visit on 05/22/2024. She is unaccompanied. INTERVAL HISTORY: Patient is still experiencing 1-2 migraine weekly followed by almost daily mild headaches lasting for couple hours. Her migraines lasting for several hours. The most concerning are the associated symptoms such as nausea and osmophobia. Rates her migraine headaches are 5-6/10. She has not used any dosage of rizatriptan due to the fact that she has forgotten to keep it in her purse. Her nausea is the most concerning symptoms. She has Zofran which she has used without effect. Different food smells aggravate her migraines as well. 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 She is on Vimpat and Keppra for seizures which she follows with epilepsy center for. Reports no seizures recently. Qulipta and Ajovy were ordered and PA were sent. Both were denied in the past. Last Filed Values Date of Most Recent Assessment and Plan 05/22/24 Specialty General Neurology Assessment This is a 38 year old female with past medical history of anemia, depression, epilepsy, migraine, and seizure disorder presenting with headaches which have began when she was 14-15 years old and worsened in the last 6-8 months. She was seen by Dr. Reddy on May 2023 and she has tried Topamax and propranolol as preventative with no effect. She was never prescribed rescue medication for her migraines. She is experiencing 4 migraines monthly with almost daily headaches rated from 6-9/10 throbbing, pressure, aching headaches associated with photo/phono sensitivity, nausea, vomiting, blurred vision, and dizziness which last for 2 to 4 hours. She finds some headache improvement from massages and sleep. She has epilepsy history. She is on Vimpat 150 mg twice daily and levetiracetam 1000 mg twice daily. Neurological exam is notable for decreased sensation of the right foot on the medial and lateral aspect of the foot along the dermatomes of L4-S1 and decreased temperature sensation of the right lower extremity. The rest of the exam is unremarkable. MRA/MRV/MRI brain done in May 2023 are unremarkable and reassuring. Low concern for central etiology at this time. Etiology of patient's symptoms is consistent with migraine without aura with status migrainosus. Discussed preventative and rescue medications for migraine headaches with patient and who is accompanying patient in this visit. Patient has tried Topamax and propranolol with no effect on her headaches. Next first-line as a preventative medication is TCAs such as nortriptyline or amitriptyline which lowers the seizure threshold. Recommend Qulipta 60 mg as a preventative. Will send PA. Will start patient on rizatriptan 10 mg as a rescue medication for migraines. Dosage, usage, and side effects of triptans were discussed with patient and printed information was provided on after visit summary Patient denies any personal history of [place] or CVA. Discussed medication dosage, usage, goals of therapy, and side effects including drowsiness, dizziness & chest/throat tightness. Given instructions on use; take at onset of [facility] can repeat in 2 hours if needed. No more than 2 doses per 24 hours & 3 doses per week. Patient verbalizes understanding. Well prescribe Medrol pack to break of the headache cycle. There is subjective report of patient previously being prescribed steroids and have tolerated them well. Discussed when to seek further evaluation to emergency department. Plan was discussed with patient and who agreed to the below: Plan - Qulipta 60 mg daily-migraine prevention -Rizatriptan 10 mg as needed-rescue medication for migraine -Medrol pack-to break of the cycle of daily headaches -Follow-up in 3 months or sooner if symptoms fail to improve Today: Will resend the prior authorization for Qulipta as a preventative medication for patient. Will trial Reglan 5 mg for her nausea. Discussed to probably use a mask and spray a sent in the mask that patient can tolerate such as peppermint or lavender which patient prefers. Headache Description HEADACHE LOCATION: temporal region bilateral, occipital region bilateral, and cervical region bilateral Onset: Headaches began >25 years ago Quality: aching, pressure, and throbbing Photophobia? Yes Phonophobia? Yes Smells: yes Nausea? Yes Vomitting? Yes Aura? No None Worse with activity? Yes Severe?5-6/10 Frequency: >4 times a month with almost daily headache Duration? Several hours. Caffeine intake? None Water intake? Eight or more 8 ounce glasses daily. Triggers? after stressful situations and hunger Sleep concerns? No wakes up often during the night Mood concerns? No History of concussion? No Autonomic features: None Autonomic headache features -: none Previous/Current Headache treatment Preventative: Vimpat, Keppra, topiramate, propranolol, nortriptyline, Lamictal, gabapentin, Rescue: Phenergan, Zofran, Ibuprofen, Naproxen, Acetaminophen # of doses of abortive medications per month: < 10 days/month (or 8 for opiates, 5 for barbiturates) Medication Overuse Headache concern? No Relevant Work Up To Date REVIEW OF STUDIES: Blood studies None new to review MRI None new to review PMH PAST MEDICAL HISTORY Diagnosis Date Anemia Complication of anesthesia nausea and vomiting Episode of recurrent major depressive disorder (HCC) 08/28/2018 Family history of epilepsy aunt Hepatic hemangioma 01/20/2024 Hepatitis in viral diseases classified elsewhere(573.1) when she had mono PMH - PAST MEDICAL HISTORY OF Right Sciatica Seizure disorder (HCC) 02/04/2018 PAST SURGICAL HISTORY Procedure Laterality Date DELIVERY ONLY , low cervical x4 DELIVERY ONLY 10/14/2016 EXCISION GANGLION WRIST DORSAL/VOLAR PRIMARY Right HYSTEROSCOPY ENDOMETRIAL ABLATION N/A 02/28/2023 KNEE SURGERY HX Right shaved patella and removed fat pad LAP HYSTERECTOMY FOR UTERUS 250G OR LESS 09/04/2023 LIG/TRNSXJ FLP TUBE ABDL/VAG APPR UNI/BI Bilateral 10/14/2016 VAGINAL CUFF REPAIR 09/22/2023 exam under anesthesia, pelvic irrigation and insertion of intraabdominal drain ALLERGIES Allergen Reactions Bleach (Sodium Hypo* Rash Lamictal [Lamotrigi* Rash [place] Trees [Trees] Rash, Hives Topiramate Rash Tree And Shrub Poll* Unknown Social History Tobacco Use Smoking status: Never Smokeless tobacco: Never Vaping Use Vaping status: Never Used Substance Use Topics Alcohol use: Yes Comment: occasional Drug use: No FAMILY HISTORY Problem Relation Age of Onset Hypertension Father Diabetes Father Hyperlipidemia Father Cataract Father other (FIBROMYALGIA) Sister Pancreatitis Sister Cancer Maternal Grandmother Breast Cancer Paternal Grandmother Heart Paternal Grandmother Stroke Paternal Grandfather Diabetes Maternal Aunt Anesthesia Problems No Family History Clotting Disorder No Family History Malig Hyperthermia No Family History Medications metoclopramide HCl (REGLAN) 5 mg tablet Take 1 tablet by mouth three times a day. cephALEXin (KEFLEX) 500 mg capsule Take 1 capsule by mouth two times a day for 5 days. Clobetasol Propionate (TEMOVATE) 0.05 % external solution Apply to affected areas on scalp twice daily Saturday-Saturday, take weekends off. May repeat as needed. triamcinolone acetonide (KENALOG) 0.1 % cream Apply to affected areas twice daily for 2 weeks. lacosamide (VIMPAT) 150 mg tab Take 1 tablet by mouth two times a day for 180 days. levETIRAcetam (KEPPRA) 1,000 mg tablet Take 1 tablet by mouth two times a day. rizatriptan (MAXALT) 10 mg tablet Take 1 tablet (10 mg) by mouth as needed (at onset of headache. May repeat after 2 hours.). Do not exceed 30 mg per day. omeprazole (PRILOSEC) 40 mg capsule Take 1 capsule by mouth two times a day. [DISCONTINUED] topiramate (TOPAMAX) 25 mg tablet Take by mouth. One tablet twice daily for a week; then two tablets twice daily thereafter. 05/22/2024 Headache Questions ID Migraine Screener: 3 (Positive) Initial improvement of headache after botox injection at last visit: Not applicable, I did not have a botox injection at my last visit 03/28/2023 06/03/2023 02/02/2024 JEANIE - 2/7 SCORES JEANIE-2 Score 1 1 1 JEANIE-7 Score 8 05/22/2024 Migraine Specific QOL - Higher scores indicate better HRQL Role Function-Restrictive Transformed Score (range: 0-100) 20 Role Function-Preventive Transformed Score (range: 0-100) 50 Emotional Function Transformed Score (range: 0-100) 40 02/02/2024 06/29/2024 08/26/2024 PHQ-9 Score 15 10 13 General Examination: BP 104/68 (BP Site: Left Arm, BP Position: Sitting) Pulse 64 Ht 160 cm (5' 3) Wt 65 kg (143 lb 4.8 oz) LMP 07/17/2023 (Exact Date) BMI 25.38 kg/m 08/26/24 1102 BP: 104/68 BP Site: Left Arm BP Position: Sitting Pulse: 64 Weight: 65 kg (143 lb 4.8 oz) Height: 160 cm (5' 3) Well-groomed. No acute distress. The patient was alert and oriented to person, place, and time with normal language, attention and concentration, recent and remote memory, praxis, and intellectual function. Affect was normal. The patient did not appear depressed. Speech: normal Gait Standing balance: Normal Standard gait: normal. Assistive device: independent IMPRESSION/PLAN: (G43.001) Migraine without aura and with status migrainosus, not intractable (primary encounter diagnosis) Yamil Ng is a 39 year old female with history of anemia, depression, epilepsy, migraine, and seizure disorder. She is here today to follow-up and treatment of headaches which began more than 25 years ago. Migraine headaches occur 1-2 times per week and last several hours. Mild headaches are almost daily and last for couple hours. Headaches are pressure and throbbing and rated 5-6/10. They have associated photophobia, nausea and osmophobia. They are currently on no medication for preventative and rizatriptan for abortive. We have tried sending PA's for Qulipta and Ajovy in the past which have both been denied. Will retry sending PA for Qulipta. Will continue with rizatriptan as an abortive medication for her migraines. Will add Reglan for nausea. Patient has tried Phenergan and Zofran in the past without effectivity. Advised patient to keep headache diary. Discussed when to seek further evaluation to emergency department. Plan: All options for treatment discussed. Continue with rizatriptan as an abortive medication Will trial Qulipta-will send PA today Reglan 5 mg for nausea Follow-up as needed I spent a total of 30 minutes on the date of the service which included preparing to see the patient, [id number] patient care, completing clinical documentation, obtaining and/or reviewing separately obtained history, performing a medically appropriate examination, counseling and educating the patient/family/caregiver, and ordering medications, tests, or procedures. Martine Marinelli APRN.[facility] [address] [place] [address] Appointment: [phone] In regards to blood work, testing, and radiology reports these are released automatically to the patients. We do not comment on most testing on mychart in a message or commentary unless there is a concern. You will not receive a message from me of the result unless there is a specific concern. Make sure to check your my chart email or everette. My impression and recommendations were discussed with the patient and they were provided with a detailed after summary visit highlighting such. Patient verbalizes understanding and I have addressed concerns and questions at this visit. Reassurance provided. Medication side effects discussed as applicable. . 08/26/2024 PROMIS Global Health Physical Health Summary Physical health: Fair Everyday physical activity, ability: Moderately Fatigue: Severe Pain level: 4 General health: Fair Social activities/roles, ability: Fair Physical Health T-Score 34.9 (Poor) Physical Health Percentile 7 PROMIS Global Health Mental Health Summary Quality of life: Fair Mental health (mood,thinking): Good Social satisfaction: Good Emotional problems (anxious,depressed): Rarely Mental Health T-Score 43.5 (Good) Mental Health Percentile 26 PHQ-9 Score: (Moderate Depression) PHQ-9 Self-Harm: Percentiles provide an indication of how a patient's score ranks in relation to the [place] general population. > 31st percentile is within normal limits or better *< 31st percentile is at least SD worse than population, which may be clinically relevant < 16th percentile is at least 1 SD worse than population and warrants attention 08/26/2024 PROMIS Global Health Physical Health Summary Physical health: Fair Everyday physical activity, ability: Moderately Fatigue: Severe Pain level: 4 General health: Fair Social activities/roles, ability: Fair Physical Health T-Score 34.9 (Poor) Physical Health Percentile 7 PROMIS Global Health Mental Health Summary Quality of life: Fair Mental health (mood,thinking): Good Social satisfaction: Good Emotional problems (anxious,depressed): Rarely Mental Health T-Score 43.5 (Good) Mental Health Percentile 26 PHQ-9 Score: (Moderate Depression) PHQ-9 Self-Harm: Percentiles provide an indication of how a patient's score ranks in relation to the [place] general population. > 31st percentile is within normal limits or better *< 31st percentile is at least SD worse than population, which may be clinically relevant < 16th percentile is at least 1 SD worse than population and warrants attention documented in this encounter [facility] 08-26-2024 Note HNO ID: [id number] Author: MELISSA HAMILTON MA Service: ? Author Type: Shelter Advocate Type: Progress Notes Filed: 08/26/2024 11:55 Note Text: 08/26/2024 PROMIS Global Health Physical Health Summary Physical health: Fair Everyday physical activity, ability: Moderately Fatigue: Severe Pain level: 4 General health: Fair Social activities/roles, ability: Fair Physical Health T-Score 34.9 (Poor) Physical Health Percentile 7 PROMIS Global Health Mental Health Summary Quality of life: Fair Mental health (mood,thinking): Good Social satisfaction: Good Emotional problems (anxious,depressed): Rarely Mental Health T-Score 43.5 (Good) Mental Health Percentile 26 PHQ-9 Score: (Moderate Depression) PHQ-9 Self-Harm: Percentiles provide an indication of how a patient's score ranks in relation to the [place] general population. > 31st percentile is within normal limits or better *< 31st percentile is at least ? SD worse than population, which may be clinically relevant < 16th percentile is at least 1 SD worse than population and warrants attention [facility] 08-22-2024 Note HNO ID: [id number] Author: WOODROW COBURN APRN.TRACK WATCHMAN Service: ? Author Type: Nurse Practitioner Type: Progress Notes Filed: 08/22/2024 15:09 Note Text: Subjective HPI Nontoxic-appearing 39-year-old female presents urgent care chief plaint possible UTI. Duration of symptoms 3 days. Associated symptoms dysuria frequency and pressure. History of UTIs this feels similar. OTC medications none recently. Denies any vomiting abdominal pain . No fevers vaginal discharge itching or burning. Is not . Is not breast-feeding. Past medical history prescription medications allergies reviewed. .Patient presents with: UTI PAST MEDICAL HISTORY Diagnosis Date Anemia Complication of anesthesia nausea and vomiting Episode of recurrent major depressive disorder (HCC) 08/28/2018 Family history of epilepsy aunt Hepatic hemangioma 01/20/2024 Hepatitis in viral diseases classified elsewhere(573.1) when she had mono PMH - PAST MEDICAL HISTORY OF Right Sciatica Seizure disorder (HCC) 02/04/2018 PAST SURGICAL HISTORY Procedure Laterality Date DELIVERY ONLY , low cervical x4 DELIVERY ONLY 10/14/2016 EXCISION GANGLION WRIST DORSAL/VOLAR PRIMARY Right HYSTEROSCOPY ENDOMETRIAL ABLATION N/A 02/28/2023 KNEE SURGERY HX Right shaved patella and removed fat pad LAP HYSTERECTOMY FOR UTERUS 250G OR LESS 09/04/2023 LIG/TRNSXJ FLP TUBE ABDL/VAG APPR UNI/BI Bilateral 10/14/2016 VAGINAL CUFF REPAIR 09/22/2023 exam under anesthesia, pelvic irrigation and insertion of intraabdominal drain ALLERGIES Bleach (Sodium Hypochlorite), Lamictal [Lamotrigine], [place] [Trees], Topiramate, and Tree And Shrub Pollen MEDICATIONS Clobetasol Propionate (TEMOVATE) 0.05 % external solution Apply to affected areas on scalp twice daily Saturday-Saturday, take weekends off. May repeat as needed. triamcinolone acetonide (KENALOG) 0.1 % cream Apply to affected areas twice daily for 2 weeks. lacosamide (VIMPAT) 150 mg tab Take 1 tablet by mouth two times a day for 180 days. levETIRAcetam (KEPPRA) 1,000 mg tablet Take 1 tablet by mouth two times a day. fremanezumab-vfrm (AJOVY AUTOINJECTOR) 225 mg/1.5 mL auto-injector Inject 1.5 mL subcutaneously once every month. Do not shake. rizatriptan (MAXALT) 10 mg tablet Take 1 tablet (10 mg) by mouth as needed (at onset of headache. May repeat after 2 hours.). Do not exceed 30 mg per day. omeprazole (PRILOSEC) 40 mg capsule Take 1 capsule by mouth two times a day. [DISCONTINUED] topiramate (TOPAMAX) 25 mg tablet Take by mouth. One tablet twice daily for a week; then two tablets twice daily thereafter. FAMILY HISTORY Problem Relation Age of Onset Hypertension Father Diabetes Father Hyperlipidemia Father Cataract Father other (FIBROMYALGIA) Sister Pancreatitis Sister Cancer Maternal Grandmother Breast Cancer Paternal Grandmother Heart Paternal Grandmother Stroke Paternal Grandfather Diabetes Maternal Aunt Anesthesia Problems No Family History Clotting Disorder No Family History Malig Hyperthermia No Family History Social History Tobacco Use Smoking status: Never Smokeless tobacco: Never Vaping Use Vaping status: Never Used Substance Use Topics Alcohol use: Yes Comment: occasional Drug use: No BP 124/80 Pulse 98 Temp 37 ?C (98.6 ?F) Wt 68.4 kg (150 lb 12.7 oz) LMP 07/17/2023 (Exact Date) BMI 26.10 kg/m? Review of Systems Constitutional: Negative for chills, fever and malaise/fatigue. Cardiovascular: Negative for chest pain. Gastrointestinal: Positive for nausea. Negative for abdominal pain, constipation, diarrhea and vomiting. Genitourinary: Positive for dysuria, frequency and urgency. Negative for flank pain and hematuria. Musculoskeletal: Negative for myalgias. Objective Physical Exam Vitals and nursing note reviewed. Constitutional: General: She is not in acute distress. Appearance: She is not diaphoretic. HENT: Head: Jaw: No trismus. Right Ear: Hearing normal. No decreased hearing noted. No drainage, swelling or tenderness. Tympanic membrane is not perforated, erythematous or bulging. Left Ear: Hearing normal. No decreased hearing noted. No drainage, swelling or tenderness. Tympanic membrane is not perforated, erythematous or bulging. Mouth/Throat: Pharynx: Uvula midline. No uvula swelling. Tonsils: No tonsillar abscesses. Cardiovascular: Rate and Rhythm: Normal rate and regular rhythm. Pulses: Normal pulses. Pulmonary: Effort: Pulmonary effort is normal. No respiratory distress. Breath sounds: Normal breath sounds. Chest: Chest wall: No tenderness. Abdominal: General: Bowel sounds are normal. There is no distension. Palpations: Abdomen is soft. Abdomen is not rigid. Tenderness: There is no abdominal tenderness. There is no right CVA tenderness, left CVA tenderness, guarding or rebound. Negative signs include Yancey's sign and McBurney' (more content not included)... [facility] 08-22-2024 History of Present illness Narrative Subjective HPI Nontoxic-appearing 39-year-old female presents urgent care chief plaint possible UTI. Duration of symptoms 3 days. Associated symptoms dysuria frequency and pressure. History of UTIs this feels similar. OTC medications none recently. Denies any vomiting abdominal pain . No fevers vaginal discharge itching or burning. Is not . Is not breast-feeding. Past medical history prescription medications allergies reviewed. .Patient presents with: UTI PAST MEDICAL HISTORY Diagnosis Date Anemia Complication of anesthesia nausea and vomiting Episode of recurrent major depressive disorder (HCC) 08/28/2018 Family history of epilepsy aunt Hepatic hemangioma 01/20/2024 Hepatitis in viral diseases classified elsewhere(573.1) when she had mono PMH - PAST MEDICAL HISTORY OF Right Sciatica Seizure disorder (HCC) 02/04/2018 PAST SURGICAL HISTORY Procedure Laterality Date DELIVERY ONLY , low cervical x4 DELIVERY ONLY 10/14/2016 EXCISION GANGLION WRIST DORSAL/VOLAR PRIMARY Right HYSTEROSCOPY ENDOMETRIAL ABLATION N/A 02/28/2023 KNEE SURGERY HX Right shaved patella and removed fat pad LAP HYSTERECTOMY FOR UTERUS 250G OR LESS 09/04/2023 LIG/TRNSXJ FLP TUBE ABDL/VAG APPR UNI/BI Bilateral 10/14/2016 VAGINAL CUFF REPAIR 09/22/2023 exam under anesthesia, pelvic irrigation and insertion of intraabdominal drain ALLERGIES Bleach (Sodium Hypochlorite), Lamictal [Lamotrigine], [place] [Trees], Topiramate, and Tree And Shrub Pollen MEDICATIONS Clobetasol Propionate (TEMOVATE) 0.05 % external solution Apply to affected areas on scalp twice daily Saturday-Saturday, take weekends off. May repeat as needed. triamcinolone acetonide (KENALOG) 0.1 % cream Apply to affected areas twice daily for 2 weeks. lacosamide (VIMPAT) 150 mg tab Take 1 tablet by mouth two times a day for 180 days. levETIRAcetam (KEPPRA) 1,000 mg tablet Take 1 tablet by mouth two times a day. fremanezumab-vfrm (UrbanTakeoverOVAllylix AUTOINJECTOR) 225 mg/1.5 mL auto-injector Inject 1.5 mL subcutaneously once every month. Do not shake. rizatriptan (MAXALT) 10 mg tablet Take 1 tablet (10 mg) by mouth as needed (at onset of headache. May repeat after 2 hours.). Do not exceed 30 mg per day. omeprazole (PRILOSEC) 40 mg capsule Take 1 capsule by mouth two times a day. [DISCONTINUED] topiramate (TOPAMAX) 25 mg tablet Take by mouth. One tablet twice daily for a week; then two tablets twice daily thereafter. FAMILY HISTORY Problem Relation Age of Onset Hypertension Father Diabetes Father Hyperlipidemia Father Cataract Father other (FIBROMYALGIA) Sister Pancreatitis Sister Cancer Maternal Grandmother Breast Cancer Paternal Grandmother Heart Paternal Grandmother Stroke Paternal Grandfather Diabetes Maternal Aunt Anesthesia Problems No Family History Clotting Disorder No Family History Malig Hyperthermia No Family History Social History Tobacco Use Smoking status: Never Smokeless tobacco: Never Vaping Use Vaping status: Never Used Substance Use Topics Alcohol use: Yes Comment: occasional Drug use: No BP 124/80 Pulse 98 Temp 37 C (98.6 F) Wt 68.4 kg (150 lb 12.7 oz) LMP 07/17/2023 (Exact Date) BMI 26.10 kg/m Review of Systems Constitutional: Negative for chills, fever and malaise/fatigue. Cardiovascular: Negative for chest pain. Gastrointestinal: Positive for nausea. Negative for abdominal pain, constipation, diarrhea and vomiting. Genitourinary: Positive for dysuria, frequency and urgency. Negative for flank pain and hematuria. Musculoskeletal: Negative for myalgias. Objective Physical Exam Vitals and nursing note reviewed. Constitutional: General: She is not in acute distress. Appearance: She is not diaphoretic. HENT: Head: Jaw: No trismus. Right Ear: Hearing normal. No decreased hearing noted. No drainage, swelling or tenderness. Tympanic membrane is not perforated, erythematous or bulging. Left Ear: Hearing normal. No decreased hearing noted. No drainage, swelling or tenderness. Tympanic membrane is not perforated, erythematous or bulging. Mouth/Throat: Pharynx: Uvula midline. No uvula swelling. Tonsils: No tonsillar abscesses. Cardiovascular: Rate and Rhythm: Normal rate and regular rhythm. Pulses: Normal pulses. Pulmonary: Effort: Pulmonary effort is normal. No respiratory distress. Breath sounds: Normal breath sounds. Chest: Chest wall: No tenderness. Abdominal: General: Bowel sounds are normal. There is no distension. Palpations: Abdomen is soft. Abdomen is not rigid. Tenderness: There is no abdominal tenderness. There is no right CVA tenderness, left CVA tenderness, guarding or rebound. Negative signs include Yancey's sign and McBurney's sign. Musculoskeletal: General: No tenderness. Lymphadenopathy: Head: Right side of head: No submental, submandibular, tonsillar, preauricular, posterior auricular or occipital adenopathy. Left side of head: No submental, submandibular, tonsillar, preauricular, posterior auricular or occipital adenopathy. Cervical: Right cervical: No superficial or posterior cervical adenopathy. Left cervical: No superficial or posterior cervical adenopathy. Skin: General: Skin is warm and dry. Findings: No rash. Neurological: Mental Status: She is alert and oriented to person, place, and time. ASSESSMENT/PLAN: 1. Screening for genitourinary condition - ICD9: V81.6, ICD10: Z13.89 - UA DIP, URINE (POC) - BACTERIAL CULTURE, URINE Urine positive for leukocytes protein and blood. Treat for acute cystitis. Differentials include renal calculi. History of kidney stones in the past. Started on Keflex today. Red flags ER evaluation discussed. Reportedly culture result. Patient was educated on supportive therapies. Patient will follow up with primary care provider as needed. Patient was instructed to immediately proceed to emergency room for any new, worsening, or symptoms lasting longer than anticipated. The patient's clinical presentation is otherwise unremarkable at this time. Based on exam and clinical finding, the patient is stable for discharge. Plan of care was discussed with patient. Patient verbalizes understanding and agrees to plan of care. This note was generated using ITN software. It may contain errors in wording, punctuation, or spelling. Woodrow Coburn APRN.TRACK WATCHMAN documented in this encounter [facility] 08-05-2024 Instructions Ana Feliciano PA - 08/05/2024 10:25 AM EST Take antibiotic as prescribed. Finish all of this medication for full 10 days even if symptoms improving. Fluids to stay hydrated, rest, Tylenol/Motrin as needed for pain or fevers. You may return to school/activities/work once you have been on antibiotics for 24 hours. Change toothbrush after you are on antibiotics for 72 hours. 5. If any inability to swallow, drooling, severe pain, inability to keep down fluids or medication, decreased urine output, go to emergency room. documented in this encounter [facility] 08-05-2024 Note HNO ID: [id number] Author: ANA FELICIANO PA Service: ? Author Type: Physician Cloth Shader Type: Progress Notes Filed: 08/05/2024 10:28 Note Text: This note was created using Telcareriter. Subjective Yamil Ng is a 38 year old female. HPI 38-year-old female presents for sore throat, fever, body aches since last night. Patient states that yesterday evening she started getting sore throat. She had a fever of 101.8 ?F. She states that she is still able to drink fluids, but hurts to swallow. She has not had a cough, just feels the need to clear her throat. No congestion. Potential sick contacts. One of her kids was sick last week with cold symptoms. Patient took Tylenol around 1 AM for the fever. Has not taken anything else for symptoms. No other complaint. PAST MEDICAL HISTORY Diagnosis Date Anemia Complication of anesthesia nausea and vomiting Episode of recurrent major depressive disorder (HCC) 08/28/2018 Family history of epilepsy aunt Hepatic hemangioma 01/20/2024 Hepatitis in viral diseases classified elsewhere(573.1) when she had mono PMH - PAST MEDICAL HISTORY OF Right Sciatica Seizure disorder (HCC) 02/04/2018 PAST SURGICAL HISTORY Procedure Laterality Date DELIVERY ONLY , low cervical x4 DELIVERY ONLY 10/14/2016 EXCISION GANGLION WRIST DORSAL/VOLAR PRIMARY Right HYSTEROSCOPY ENDOMETRIAL ABLATION N/A 02/28/2023 KNEE SURGERY HX Right shaved patella and removed fat pad LAP HYSTERECTOMY FOR UTERUS 250G OR LESS 09/04/2023 LIG/TRNSXJ FLP TUBE ABDL/VAG APPR UNI/BI Bilateral 10/14/2016 VAGINAL CUFF REPAIR 09/22/2023 exam under anesthesia, pelvic irrigation and insertion of intraabdominal drain ALLERGIES Bleach (Sodium Hypochlorite), Lamictal [Lamotrigine], [place] [Trees], Topiramate, and Tree And Shrub Pollen MEDICATIONS Clobetasol Propionate (TEMOVATE) 0.05 % external solution Apply to affected areas on scalp twice daily Saturday-Saturday, take weekends off. May repeat as needed. triamcinolone acetonide (KENALOG) 0.1 % cream Apply to affected areas twice daily for 2 weeks. lacosamide (VIMPAT) 150 mg tab Take 1 tablet by mouth two times a day for 180 days. levETIRAcetam (KEPPRA) 1,000 mg tablet Take 1 tablet by mouth two times a day. fremanezumab-vfrm (UrbanTakeoverOVAllylix AUTOINJECTOR) 225 mg/1.5 mL auto-injector Inject 1.5 mL subcutaneously once every month. Do not shake. rizatriptan (MAXALT) 10 mg tablet Take 1 tablet (10 mg) by mouth as needed (at onset of headache. May repeat after 2 hours.). Do not exceed 30 mg per day. omeprazole (PRILOSEC) 40 mg capsule Take 1 capsule by mouth two times a day. [DISCONTINUED] topiramate (TOPAMAX) 25 mg tablet Take by mouth. One tablet twice daily for a week; then two tablets twice daily thereafter. FAMILY HISTORY Problem Relation Age of Onset Hypertension Father Diabetes Father Hyperlipidemia Father Cataract Father other (FIBROMYALGIA) Sister Pancreatitis Sister Cancer Maternal Grandmother Breast Cancer Paternal Grandmother Heart Paternal Grandmother Stroke Paternal Grandfather Diabetes Maternal Aunt Anesthesia Problems No Family History Clotting Disorder No Family History Malig Hyperthermia No Family History Social History Tobacco Use Smoking status: Never Smokeless tobacco: Never Vaping Use Vaping status: Never Used Substance Use Topics Alcohol use: Yes Comment: occasional Drug use: No Review of Systems Constitutional: Positive for chills and fever. HENT: Positive for sore throat. Negative for congestion and ear pain. Respiratory: Negative for cough and shortness of breath. Cardiovascular: Negative for chest pain. Gastrointestinal: Negative for diarrhea and vomiting. Musculoskeletal: Positive for myalgias. Objective BP 96/71 Pulse 104 Temp (!) 38.2 ?C (100.8 ?F) Resp 18 Wt 68.5 kg (151 lb 0.2 oz) LMP 07/17/2023 (Exact Date) SpO2 100% BMI 26.13 kg/m? Physical Exam Vitals and nursing note reviewed. Constitutional: General: She is not in acute distress. Appearance: Normal appearance. She is not toxic-appearing. HENT: Right Ear: Tympanic membrane and ear canal normal. Left Ear: Tympanic membrane and ear canal normal. Nose: Nose normal. Mouth/Throat: Mouth: Mucous membranes are moist. Pharynx: Uvula midline. Posterior oropharyngeal erythema present. Tonsils: Tonsillar exudate present. 2+ on the right. 2+ on the left. Eyes: Conjunctiva/sclera: Conjunctivae normal. Cardiovascular: Rate and Rhythm: Normal rate and regular rhythm. Pulmonary: Effort: Pulmonary effort is normal. Breath sounds: Normal breath sounds. Lymphadenopathy: Cervical: Cervical adenopathy present. Skin: General: Skin is warm and dry. Neurological: Mental Status: She is alert. Assessment and Plan ASSESSMENT/PLAN: 1. Strep pharyngitis - ICD9: 034.0, ICD10: J02.0 (primary diagnosis) - suspect strep - Group A strep molecular test (more content not included)... [facility] 08-05-2024 History of Present illness Narrative This note was created using Telcareriter. Subjective Yamil Ng is a 38 year old female. HPI 38-year-old female presents for sore throat, fever, body aches since last night. Patient states that yesterday evening she started getting sore throat. She had a fever of 101.8 F. She states that she is still able to drink fluids, but hurts to swallow. She has not had a cough, just feels the need to clear her throat. No congestion. Potential sick contacts. One of her kids was sick last week with cold symptoms. Patient took Tylenol around 1 AM for the fever. Has not taken anything else for symptoms. No other complaint. PAST MEDICAL HISTORY Diagnosis Date Anemia Complication of anesthesia nausea and vomiting Episode of recurrent major depressive disorder (HCC) 08/28/2018 Family history of epilepsy aunt Hepatic hemangioma 01/20/2024 Hepatitis in viral diseases classified elsewhere(573.1) when she had mono PMH - PAST MEDICAL HISTORY OF Right Sciatica Seizure disorder (HCC) 02/04/2018 PAST SURGICAL HISTORY Procedure Laterality Date DELIVERY ONLY , low cervical x4 DELIVERY ONLY 10/14/2016 EXCISION GANGLION WRIST DORSAL/VOLAR PRIMARY Right HYSTEROSCOPY ENDOMETRIAL ABLATION N/A 02/28/2023 KNEE SURGERY HX Right shaved patella and removed fat pad LAP HYSTERECTOMY FOR UTERUS 250G OR LESS 09/04/2023 LIG/TRNSXJ FLP TUBE ABDL/VAG APPR UNI/BI Bilateral 10/14/2016 VAGINAL CUFF REPAIR 09/22/2023 exam under anesthesia, pelvic irrigation and insertion of intraabdominal drain ALLERGIES Bleach (Sodium Hypochlorite), Lamictal [Lamotrigine], [place] [Trees], Topiramate, and Tree And Shrub Pollen MEDICATIONS Clobetasol Propionate (TEMOVATE) 0.05 % external solution Apply to affected areas on scalp twice daily Saturday-Saturday, take weekends off. May repeat as needed. triamcinolone acetonide (KENALOG) 0.1 % cream Apply to affected areas twice daily for 2 weeks. lacosamide (VIMPAT) 150 mg tab Take 1 tablet by mouth two times a day for 180 days. levETIRAcetam (KEPPRA) 1,000 mg tablet Take 1 tablet by mouth two times a day. fremanezumab-vfrm (AJOVY AUTOINJECTOR) 225 mg/1.5 mL auto-injector Inject 1.5 mL subcutaneously once every month. Do not shake. rizatriptan (MAXALT) 10 mg tablet Take 1 tablet (10 mg) by mouth as needed (at onset of headache. May repeat after 2 hours.). Do not exceed 30 mg per day. omeprazole (PRILOSEC) 40 mg capsule Take 1 capsule by mouth two times a day. [DISCONTINUED] topiramate (TOPAMAX) 25 mg tablet Take by mouth. One tablet twice daily for a week; then two tablets twice daily thereafter. FAMILY HISTORY Problem Relation Age of Onset Hypertension Father Diabetes Father Hyperlipidemia Father Cataract Father other (FIBROMYALGIA) Sister Pancreatitis Sister Cancer Maternal Grandmother Breast Cancer Paternal Grandmother Heart Paternal Grandmother Stroke Paternal Grandfather Diabetes Maternal Aunt Anesthesia Problems No Family History Clotting Disorder No Family History Malig Hyperthermia No Family History Social History Tobacco Use Smoking status: Never Smokeless tobacco: Never Vaping Use Vaping status: Never Used Substance Use Topics Alcohol use: Yes Comment: occasional Drug use: No Review of Systems Constitutional: Positive for chills and fever. HENT: Positive for sore throat. Negative for congestion and ear pain. Respiratory: Negative for cough and shortness of breath. Cardiovascular: Negative for chest pain. Gastrointestinal: Negative for diarrhea and vomiting. Musculoskeletal: Positive for myalgias. Objective BP 96/71 Pulse 104 Temp (!) 38.2 C (100.8 F) Resp 18 Wt 68.5 kg (151 lb 0.2 oz) LMP 07/17/2023 (Exact Date) SpO2 100% BMI 26.13 kg/m Physical Exam Vitals and nursing note reviewed. Constitutional: General: She is not in acute distress. Appearance: Normal appearance. She is not toxic-appearing. HENT: Right Ear: Tympanic membrane and ear canal normal. Left Ear: Tympanic membrane and ear canal normal. Nose: Nose normal. Mouth/Throat: Mouth: Mucous membranes are moist. Pharynx: Uvula midline. Posterior oropharyngeal erythema present. Tonsils: Tonsillar exudate present. 2+ on the right. 2+ on the left. Eyes: Conjunctiva/sclera: Conjunctivae normal. Cardiovascular: Rate and Rhythm: Normal rate and regular rhythm. Pulmonary: Effort: Pulmonary effort is normal. Breath sounds: Normal breath sounds. Lymphadenopathy: Cervical: Cervical adenopathy present. Skin: General: Skin is warm and dry. Neurological: Mental Status: She is alert. Assessment and Plan ASSESSMENT/PLAN: 1. Strep pharyngitis - ICD9: 034.0, ICD10: J02.0 (primary diagnosis) - suspect strep - Group A strep molecular testing positive - Amoxicillin for 10 days. - Discussed supportive care treatment with fluids, rest and analgesia. - Contagious dz precautions discussed- including considered contagious until on antibiotics for 24 hours 2. Sore throat - ICD9: 462, ICD10: J02.9 - STREP A MOLECULAR (POC) Diagnosis and treatment plan were discussed and questions were answered to the patient's satisfaction. Pt acknowledged understanding of concepts and follow up plan. Specific signs and symptoms that would indicate the need for higher level of care were discussed in detail warranting prompt ER evaluation. JAXON Vila documented in this encounter [facility] 08-04-2024 History of Present illness Narrative NEW PATIENT Chief Complaint: Rash History of Present Ilness: Yamil Ng is a 38 year old female who presents today for a rash Rash Location: groin Duration: ~2 months Symptoms/Course: no improvement Current Treatment: miconazole nitrate 2% x 2 weeks Past Treatment: lotrisone and tinactin Anything new or different prior to onset of rash: spread Any exacerbating or alleviating factors: none She denies any new medications Psoriasis Location: scalp Duration: years Symptoms: itchy and spread to left forearm Current Treatment: ketoconazole shampoo once per week Past Treatment: none History of psoriatic arthritis: No Family history of psoriasis: Yes, father Psoriasis Epidemiology Screening Tool (PEST) Have you ever had a swollen joint (or joints)? No Has a provider ever told you that you have arthritis? Yes Do your fingernails or toenails have holes or pits? No Have you had pain in your heel? No Have you had a finger or toe that was completely swollen and painful for no apparent reason? No Pertinent History: History of skin cancer: No History of atypical nevi: No History of immunosuppression/organ transplant: No , planning , or ? No Pertinent Family medical history: History of melanoma: No History of non melanoma skin cancer: No Other family history (autoimmune, dermatologic, etc): sister-fibromyalgia Past Medical History is reviewed. Medication List is reviewed. ROS: Skin as above. Physical Exam: Selby skin type: II The patient is a pleasant female in no apparent distress. Alert and oriented x 3. A skin exam performed of the scalp, bilateral upper extremities, and genitals is significant for: Scalp Erythematous scaly plaque to left frontal scalp Left Inframammary Fold, Pubic, Right Inframammary Fold Well demarcated erythematous scaly papules and plaques to right anterior thigh extending to right pubic area. Inguinal crease is spared. Assessment and Plan: PSORIASIS VULGARIS Scalp Discussed etiology and chronic nature of disease. Discussed importance of following up with labwork and regular evaluation with PCP due to association of psoriasis with increased risk of cardiometabolic disease (heart disease, HTN, diabetes mellitus). Continue ketoconazole 2% shampoo, advised to increase usage to 2-3 times per week Start clobetasol 0.05% solution twice daily Saturday-Saturday, take weekends off Discussed proper use of medications and potential side effects. Related Medications Clobetasol Propionate (TEMOVATE) 0.05 % external solution Apply to affected areas on scalp twice daily Saturday-Saturday, take weekends off. May repeat as needed. 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 She has previously failed treatment with miconazole cream, tinactin, and lotrisone. Discussed potential etiologies, course, and treatment options Recommend trial of triamcinolone 0.1% cream twice daily for 2 weeks on, one week off. May repeat as needed. Biopsy in reserve Related Medications triamcinolone acetonide (KENALOG) 0.1 % cream Apply to affected areas twice daily for 2 weeks. Follow up: 4 weeks Intake completed by Kristen Reveles LPN The documentation for this note was completed by Kristen Reveles LPN acting as scribe for Suzanne Chen APRN.CNP. I agree with the Chief Complaint, ROS, and Past Histories independently gathered by the clinical sales support representative and the remaining scribed note accurately describes my personal service to the patient. Suzanne Chen APRN.CNP documented in this encounter [facility] 08-04-2024 Note HNO ID: [id number] Author: SUZANNE CHEN APRN.TRACK WATCHMAN Service: ? Author Type: Nurse Practitioner Type: Progress Notes Filed: 08/04/2024 08:01 Note Text: NEW PATIENT Chief Complaint: Rash History of Present Ilness: Yamil Ng is a 38 year old female who presents today for a rash Rash Location: groin Duration: ~2 months Symptoms/Course: no improvement Current Treatment: miconazole nitrate 2% x 2 weeks Past Treatment: lotrisone and tinactin Anything new or different prior to onset of rash: spread Any exacerbating or alleviating factors: none She denies any new medications Psoriasis Location: scalp Duration: years Symptoms: itchy and spread to left forearm Current Treatment: ketoconazole shampoo once per week Past Treatment: none History of psoriatic arthritis: No Family history of psoriasis: Yes, father Psoriasis Epidemiology Screening Tool (PEST) Have you ever had a swollen joint (or joints)? No Has a provider ever told you that you have arthritis? Yes Do your fingernails or toenails have holes or pits? No Have you had pain in your heel? No Have you had a finger or toe that was completely swollen and painful for no apparent reason? No Pertinent History: History of skin cancer: No History of atypical nevi: No History of immunosuppression/organ transplant: No , planning , or ? No Pertinent Family medical history: History of melanoma: No History of non melanoma skin cancer: No Other family history (autoimmune, dermatologic, etc): sister-fibromyalgia Past Medical History is reviewed. Medication List is reviewed. ROS: Skin as above. Physical Exam: Selby skin type: II The patient is a pleasant female in no apparent distress. Alert and oriented x 3. A skin exam performed of the scalp, bilateral upper extremities, and genitals is significant for: Scalp Erythematous scaly plaque to left frontal scalp Left Inframammary Fold, Pubic, Right Inframammary Fold Well demarcated erythematous scaly papules and plaques to right anterior thigh extending to right pubic area. Inguinal crease is spared. Assessment and Plan: PSORIASIS VULGARIS Scalp Discussed etiology and chronic nature of disease. Discussed importance of following up with labwork and regular evaluation with PCP due to association of psoriasis with increased risk of cardiometabolic disease (heart disease, HTN, diabetes mellitus). Continue ketoconazole 2% shampoo, advised to increase usage to 2-3 times per week Start clobetasol 0.05% solution twice daily Saturday-Saturday, take weekends off Discussed proper use of medications and potential side effects. Related Medications Clobetasol Propionate (TEMOVATE) 0.05 % external solution Apply to affected areas on scalp twice daily Saturday-Saturday, take weekends off. May repeat as needed. 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 She has previously failed treatment with miconazole cream, tinactin, and lotrisone. Discussed potential etiologies, course, and treatment options Recommend trial of triamcinolone 0.1% cream twice daily for 2 weeks on, one week off. May repeat as needed. Biopsy in reserve Related Medications triamcinolone acetonide (KENALOG) 0.1 % cream Apply to affected areas twice daily for 2 weeks. Follow up: 4 weeks Intake completed by Kristen Reveles LPN The documentation for this note was completed by Kristen Reveles LPN acting as scribe for Suzanne Chen APRN.BHARAT. I agree with the Chief Complaint, ROS, and Past Histories independently gathered by the clinical sales support representative and the remaining scribed note accurately describes my personal service to the patient. Suzanne Chen APRN.BHARAT [facility] 07-30-2024 Telephone encounter Note Spoke with patient. Patient rescheduled appropriately. [facility] 07-30-2024 Miscellaneous Notes Spoke with patient. Patient rescheduled appropriately. Patient returning call please call back at [phone] after 2pm thanks! A call was placed to the patient and a message was left for the patient to call our office. I requested that the patient leave phone number and best time to reach with PSS. Pt calling because she has an appt on Saturday for Psoriasis of scalp [L40.9] Atopic dermatitis of scalp [L20.9] . She also has a rash on on her right upper thigh up to her vagina. Her PCP told her to see dermatology for this. She is asking if this can be addressed on Saturday. Please call to let her know. Thank you! documented in this encounter [facility] 07-30-2024 Telephone encounter Note Patient returning call please call back at [phone] after 2pm thanks! [facility] 07-30-2024 Telephone encounter Note A call was placed to the patient and a message was left for the patient to call our office. I requested that the patient leave phone number and best time to reach with PSS. [facility] 07-29-2024 Telephone encounter Note Pt calling because she has an appt on Saturday for Psoriasis of scalp [L40.9] Atopic dermatitis of scalp [L20.9] . She also has a rash on on her right upper thigh up to her vagina. Her PCP told her to see dermatology for this. She is asking if this can be addressed on Saturday. Please call to let her know. Thank you! [facility] 07-16-2024 Note HNO ID: [id number] Author: JEFFY MATHEWS APRN.CNM Service: ? Author Type: Circus Laborer Type: Progress Notes Filed: 07/16/2024 15:45 Note Text: Accounts Receivable Executive offered: Patient declines. Yamil Ng is a 38 year old female who presents for problem visit rash in groin for 4 week(s). She was seen in office 2 weeks ago and has been using Lotrisone cream to area without relief. C/O redness, dry patches that are now starting to become itchy. She was told to return if no improvement. She also reports recently having difficulty emptying bladder fully. Denies any dysuria or hematuria. Desires urine dip today. REVIEW OF SYSTEMS Abdomen: No bloating, early satiety, indigestion, or increased flatulence. No abdominal pain, nausea, vomiting, diarrhea, or constipation. Bladder: No dysuria, gross hematuria, urinary frequency, urinary urgency, or incontinence. Breast: No breast lumps, nipple d/c, overlying skin changes, redness or skin retraction. Expanded ROS: N/A Allergies and current medication updated:Yes SENSITIVE EXAM: The sensitive examination was discussed with the Patient or Patient's Authorized Iron Erector. As applicable, any other physician, advance practice provider, medical student, or other health professional student that will be observing or involved in the sensitive examination for educational or training purposes was discussed with the Patient or Authorized Iron Erector. The Patient or Authorized Iron Erector has agreed to proceed with the sensitive examination. (Sensitive examination includes inspection and/or palpation of the breasts, pelvis, prostate and anorectal regions). EXAM: BP 110/60 Wt 156 lb (70.8kg) LMP 07/17/2023 GENERAL: pleasant, female in no apparent distress ABDOMEN: soft, non-tender, and no masses PELVIC: external genitalia normal, normal Bartholin's glands, urethra, [place]'s glands, no vulvar lesions, no cervical lesions, good vaginal support, physiologic discharge present, normal appearing perineal body and perianal region Right side groin area and outer mons pubis- areas of red, dry, scaly skin. No bumps or lesions. ASSESSMENT AND PLAN: Assessment AND Plan Tinea corporis Skin rash - Rx Miconazole 2% cream to area BID - If remains present or worsens, recommend appointment with PCP / Dermatology - Patient agrees with plan of care Jeffy Mathews APRN.CNM [facility] 07-16-2024 History of Present illness Narrative Accounts Receivable Executive offered: Patient declines. Yamil Ng is a 38 year old female who presents for problem visit rash in groin for 4 week(s). She was seen in office 2 weeks ago and has been using Lotrisone cream to area without relief. C/O redness, dry patches that are now starting to become itchy. She was told to return if no improvement. She also reports recently having difficulty emptying bladder fully. Denies any dysuria or hematuria. Desires urine dip today. REVIEW OF SYSTEMS Abdomen: No bloating, early satiety, indigestion, or increased flatulence. No abdominal pain, nausea, vomiting, diarrhea, or constipation. Bladder: No dysuria, gross hematuria, urinary frequency, urinary urgency, or incontinence. Breast: No breast lumps, nipple d/c, overlying skin changes, redness or skin retraction. Expanded ROS: N/A Allergies and current medication updated:Yes SENSITIVE EXAM: The sensitive examination was discussed with the Patient or Patient's Authorized Iron Erector. As applicable, any other physician, advance practice provider, medical student, or other health professional student that will be observing or involved in the sensitive examination for educational or training purposes was discussed with the Patient or Authorized Iron Erector. The Patient or Authorized Iron Erector has agreed to proceed with the sensitive examination. (Sensitive examination includes inspection and/or palpation of the breasts, pelvis, prostate and anorectal regions). EXAM: BP 110/60 Wt 156 lb (70.8kg) LMP 07/17/2023 GENERAL: pleasant, female in no apparent distress ABDOMEN: soft, non-tender, and no masses PELVIC: external genitalia normal, normal Bartholin's glands, urethra, [place]'s glands, no vulvar lesions, no cervical lesions, good vaginal support, physiologic discharge present, normal appearing perineal body and perianal region Right side groin area and outer mons pubis- areas of red, dry, scaly skin. No bumps or lesions. ASSESSMENT AND PLAN: Assessment & Plan Tinea corporis Skin rash - Rx Miconazole 2% cream to area BID - If remains present or worsens, recommend appointment with PCP / Dermatology - Patient agrees with plan of care Jeffy Mathews APRN.CNM documented in this encounter [facility] 07-10-2024 Telephone encounter Note The following approved medication requests have been transmitted electronically. Requested Prescriptions Pending Prescriptions Disp Refills lacosamide (VIMPAT) 150 mg tab [Pharmacy Med Name: lacosamide 150 mg tablet] 180 tablet 1 Sig: Take 1 tablet by mouth two times a day for 180 days. Meredith Edward PA-C [facility] 07-10-2024 Miscellaneous Notes The following approved medication requests have been transmitted electronically. Requested Prescriptions Pending Prescriptions Disp Refills lacosamide (VIMPAT) 150 mg tab [Pharmacy Med Name: lacosamide 150 mg tablet] 180 tablet 1 Sig: Take 1 tablet by mouth two times a day for 180 days. Meredith Edward PA-C Prescription Refill: Requested by: patient Please E-Scribe Caller Contact Number: [phone] (home) Pharmacy Name: [facility]acy Number: [id number] Generic/ brand: generic 30 or 90 day supply requested: 90 Last appointment: 02-07-2024 Next Appointment: none Patient of Dr. Marinelli documented in this encounter [facility] 07-10-2024 Telephone encounter Note Prescription Refill: Requested by: patient Please E-Scribe Caller Contact Number: [phone] (home) Pharmacy Name: [facility]acy Number: [id number] Generic/ brand: generic 30 or 90 day supply requested: 90 Last appointment: 02-07-2024 Next Appointment: none Patient of Dr. Marinelli [facility] 07-01-2024 Note HNO ID: [id number] Author: CRISTY DUNBAR APRN.TRACK WATCHMAN Service: ? Author Type: Nurse Practitioner Type: Progress Notes Filed: 07/01/2024 14:53 Note Text: 07/01/2024 Patient presents with: Physical SUBJECTIVE: This is a 38 year old that is here today for Above Complaints. Follows with neurology for hx of seizures and headaches Last follow-up on 05/22/2024. Ordered Qulipta but insurance denies. Patient reports was ordered an injectable but [facility] never said anything about having a prescription for it when she picked up her other medication.Follow-up scheduled for 09/15/2024. No seizure activity for 5-6 months GERD: taking Omeprazole as prescribed without side effects. Has days it may not work. Started with some online counseling for depression. No interested in medication at this time. Denies SI or HI PAST MEDICAL HISTORY Diagnosis Date Anemia Complication of anesthesia nausea and vomiting Episode of recurrent major depressive disorder (HCC) 08/28/2018 Family history of epilepsy aunt Hepatic hemangioma 01/20/2024 Hepatitis in viral diseases classified elsewhere(573.1) when she had mono PMH - PAST MEDICAL HISTORY OF Right Sciatica Seizure disorder (HCC) 02/04/2018 ALLERGIES Bleach (Sodium Hypochlorite), Lamictal [Lamotrigine], [place] [Trees], Topiramate, and Tree And Shrub Pollen MEDICATIONS Current Outpatient Medications Medication Sig levETIRAcetam (KEPPRA) 1,000 mg tablet Take 1 tablet by mouth two times a day. fremanezumab-vfrm (AJOVY AUTOINJECTOR) 225 mg/1.5 mL auto-injector Inject 1.5 mL subcutaneously once every month. Do not shake. rizatriptan (MAXALT) 10 mg tablet Take 1 tablet (10 mg) by mouth as needed (at onset of headache. May repeat after 2 hours.). Do not exceed 30 mg per day. MEDROL, DUSTY, 4 mg Dose-Pack Take it as prescribed on the package benzonatate (TESSALON PERLES) 100 mg capsule Take 1 capsule by mouth three times a day as needed. omeprazole (PRILOSEC) 40 mg capsule Take 1 capsule by mouth two times a day. lacosamide (VIMPAT) 150 mg tab Take 1 tablet by mouth two times a day for 180 days. promethazine (PHENERGAN) 25 mg tablet Take 1 tablet by mouth every 6 hours as needed for nausea/vomiting. (Patient not taking: Reported on 01/23/2024) No current facility-administered medications for this visit. Medications and allergies reviewed by this provider. SOCIAL HISTORY Social History Tobacco Use Smoking status: Never Smokeless tobacco: Never Vaping Use Vaping status: Never Used Substance Use Topics Alcohol use: Yes Comment: occasional Drug use: No REVIEW OF SYSTEMS GENERAL: No weight loss, malaise or fevers HEENT: No changes in hearing or vision, no nose bleeds or other nasal problems NECK: Negative for lumps, goiter, pain and significant neck swelling RESPIRATORY: Negative for cough, hemoptysis, wheezing, COPD, dyspnea or shortness of breath CARDIOVASCULAR: Negative for chest pain, leg swelling, hypertension, CHF or palpitations GI: No vomiting, or diarrhea and : No history of dysuria, frequency or incontinence PIPE PRODUCTION WORKER: Negative for abnormal vaginal bleeding, abnormal vaginal discharge MUSCULOSKELETAL: Negative for joint pain or swelling, back pain or muscle pain SKIN: Negative for lesions, rash, and itching PSYCH: Negative for sleep disturbance, mood disorder and recent psychosocial stressors HEMATOLOGY/LYMPHOLOGY: Negative for prolonged bleeding, bruising easily or swollen nodes ENDOCRINE: Negative for cold or heat intolerance, polyuria, polydipsia and goiter NEURO: No history of syncope, paralysis, or tremors All other reviewed and negative other than HPI. OBJECTIVE: BP 96/64 Pulse 80 Resp 16 Ht 161.9 cm (5' 3.74) Wt 69.8 kg (153 lb 14.1 oz) LMP 07/17/2023 (Exact Date) SpO2 96% BMI 26.63 kg/m? . Vital signs reviewed by this provider. APPEARANCE Well appearing, alert, in no acute distress, well-hydrated, well nourished. EYES conjunctiva and sclera normal. EARS External ears normal, canals clear NECK Supple, no adenopathy; thyroid symmetric, normal size, no bruits HEART RRR with normal S1 and S2, no murmurs, no gallops, no JVD appreciated LUNG clear to auscultation. No wheezes, rhonchi or rales ABDOMEN bowel sounds normoactive, no bruits, soft, non-tender, non-distended EXTREMITIES Extremities normal, No deformities, No skin discoloration, and No edema SKIN Skin color, texture, turgor normal, no suspicious rashes or lesions to exposed skin Hepatitis C Screening Never done Hepatitis B Vaccine(1 of 3 - 19+ 3-dose series) Never done Cervical Cancer Screening due on 11/24/2023 Mammogram Screening due on 11/05/2024 Influenza Vaccine(1) due on 12/21/2024 Covid-19 Vaccine( - 2023- season) due on 07/01/2025 DTaP,Tdap,Td Vaccine(4 - Td or Tdap) due on 05/24/2034 HIV Screening Completed HPV Vaccine Aged Out ASSESSMENT/PLAN: 1. Annual physical exam - ICD9: V (more content not included)... [facility] 07-01-2024 History of Present illness Narrative 07/01/2024 Patient presents with: Physical SUBJECTIVE: This is a 38 year old that is here today for Above Complaints. Follows with neurology for hx of seizures and headaches Last follow-up on 05/22/2024. Ordered Qulipta but insurance denies. Patient reports was ordered an injectable but [facility] never said anything about having a prescription for it when she picked up her other medication.Follow-up scheduled for 09/15/2024. No seizure activity for 5-6 months GERD: taking Omeprazole as prescribed without side effects. Has days it may not work. Started with some online counseling for depression. No interested in medication at this time. Denies SI or HI PAST MEDICAL HISTORY Diagnosis Date Anemia Complication of anesthesia nausea and vomiting Episode of recurrent major depressive disorder (HCC) 08/28/2018 Family history of epilepsy aunt Hepatic hemangioma 01/20/2024 Hepatitis in viral diseases classified elsewhere(573.1) when she had mono PMH - PAST MEDICAL HISTORY OF Right Sciatica Seizure disorder (HCC) 02/04/2018 ALLERGIES Bleach (Sodium Hypochlorite), Lamictal [Lamotrigine], [place] Trees [Trees], Topiramate, and Tree And Shrub Pollen MEDICATIONS Current Outpatient Medications Medication Sig levETIRAcetam (KEPPRA) 1,000 mg tablet Take 1 tablet by mouth two times a day. fremanezumab-vfrm (AJOVY AUTOINJECTOR) 225 mg/1.5 mL auto-injector Inject 1.5 mL subcutaneously once every month. Do not shake. rizatriptan (MAXALT) 10 mg tablet Take 1 tablet (10 mg) by mouth as needed (at onset of headache. May repeat after 2 hours.). Do not exceed 30 mg per day. MEDROL, DUSTY, 4 mg Dose-Pack Take it as prescribed on the package benzonatate (TESSALON PERLES) 100 mg capsule Take 1 capsule by mouth three times a day as needed. omeprazole (PRILOSEC) 40 mg capsule Take 1 capsule by mouth two times a day. lacosamide (VIMPAT) 150 mg tab Take 1 tablet by mouth two times a day for 180 days. promethazine (PHENERGAN) 25 mg tablet Take 1 tablet by mouth every 6 hours as needed for nausea/vomiting. (Patient not taking: Reported on 01/23/2024) No current facility-administered medications for this visit. Medications and allergies reviewed by this provider. SOCIAL HISTORY Social History Tobacco Use Smoking status: Never Smokeless tobacco: Never Vaping Use Vaping status: Never Used Substance Use Topics Alcohol use: Yes Comment: occasional Drug use: No REVIEW OF SYSTEMS GENERAL: No weight loss, malaise or fevers HEENT: No changes in hearing or vision, no nose bleeds or other nasal problems NECK: Negative for lumps, goiter, pain and significant neck swelling RESPIRATORY: Negative for cough, hemoptysis, wheezing, COPD, dyspnea or shortness of breath CARDIOVASCULAR: Negative for chest pain, leg swelling, hypertension, CHF or palpitations GI: No vomiting, or diarrhea and : No history of dysuria, frequency or incontinence PIPE PRODUCTION WORKER: Negative for abnormal vaginal bleeding, abnormal vaginal discharge MUSCULOSKELETAL: Negative for joint pain or swelling, back pain or muscle pain SKIN: Negative for lesions, rash, and itching PSYCH: Negative for sleep disturbance, mood disorder and recent psychosocial stressors HEMATOLOGY/LYMPHOLOGY: Negative for prolonged bleeding, bruising easily or swollen nodes ENDOCRINE: Negative for cold or heat intolerance, polyuria, polydipsia and goiter NEURO: No history of syncope, paralysis, or tremors All other reviewed and negative other than HPI. OBJECTIVE: BP 96/64 Pulse 80 Resp 16 Ht 161.9 cm (5' 3.74) Wt 69.8 kg (153 lb 14.1 oz) LMP 07/17/2023 (Exact Date) SpO2 96% BMI 26.63 kg/m . Vital signs reviewed by this provider. APPEARANCE Well appearing, alert, in no acute distress, well-hydrated, well nourished. EYES conjunctiva and sclera normal. EARS External ears normal, canals clear NECK Supple, no adenopathy; thyroid symmetric, normal size, no bruits HEART RRR with normal S1 and S2, no murmurs, no gallops, no JVD appreciated LUNG clear to auscultation. No wheezes, rhonchi or rales ABDOMEN bowel sounds normoactive, no bruits, soft, non-tender, non-distended EXTREMITIES Extremities normal, No deformities, No skin discoloration, and No edema SKIN Skin color, texture, turgor normal, no suspicious rashes or lesions to exposed skin Hepatitis C Screening Never done Hepatitis B Vaccine(1 of 3 - 19+ 3-dose series) Never done Cervical Cancer Screening due on 11/24/2023 Mammogram Screening due on 11/05/2024 Influenza Vaccine(1) due on 12/21/2024 Covid-19 Vaccine( - 2023- season) due on 07/01/2025 DTaP,Tdap,Td Vaccine(4 - Td or Tdap) due on 05/24/2034 HIV Screening Completed HPV Vaccine Aged Out ASSESSMENT/PLAN: 1. Annual physical exam - ICD9: V70.0, ICD10: Z00.00 (primary diagnosis) - Counseled on healthy diet and regular exercise - Follow up for annual exam in one year 2. 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 Gastroesophageal reflux disease, unspecified whether esophagitis present - ICD9: 530.81, ICD10: K21.9 - stable on current regime 4. Migraine with aura, not intractable, without status migrainosus - ICD9: 346.00, ICD10: G43.109 - follow-up with neurology as recommended Cristy Dunbar APRN.CNP Prescription instructions reviewed with patient as applicable. Patient advised if symptoms do not improve or if symptoms worsen sooner, to contact their primary care physician. Potential red flag symptoms discussed with the patient. Reviewed appropriate action plan to take if red flag symptoms occur. Patient agreeable to treatment plan. documented in this encounter [facility] 06-29-2024 Note HNO ID: [id number] Author: HENRIQUE CUEVAS MD Service: ? Author Type: Physician Type: Progress Notes Filed: 06/29/2024 15:47 Note Text: Accounts Receivable Executive offered: Patient accepts, visit chaperoned by Yoan Ceron MA. Yamil Ng is a 38 year old female who presents for problem visit to evaluate right groin fold irritation/rash that has moved to within the underwear line over the course of 10-15 days. No tx thus far.. 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 History LMP: 07/17/2023 (Exact Date), Hysterectomy Age at Menarche: Age at First : Age at Menopause: Mending Carrier History Comments: Sexual Activity: Yes; Male; hyst Contraception: Vasectomy, Surgical PAST MEDICAL HISTORY Diagnosis Date Anemia Complication of anesthesia nausea and vomiting Episode of recurrent major depressive disorder (HCC) 08/28/2018 Family history of epilepsy aunt Hepatic hemangioma 01/20/2024 Hepatitis in viral diseases classified elsewhere(573.1) when she had mono PMH - PAST MEDICAL HISTORY OF Right Sciatica Seizure disorder (HCC) 02/04/2018 PAST SURGICAL HISTORY Procedure Laterality Date DELIVERY ONLY , low cervical x4 DELIVERY ONLY 10/14/2016 EXCISION GANGLION WRIST DORSAL/VOLAR PRIMARY Right HYSTEROSCOPY ENDOMETRIAL ABLATION N/A 02/28/2023 KNEE SURGERY HX Right shaved patella and removed fat pad LAP HYSTERECTOMY FOR UTERUS 250G OR LESS 09/04/2023 LIG/TRNSXJ FLP TUBE ABDL/VAG APPR UNI/BI Bilateral 10/14/2016 VAGINAL CUFF REPAIR 09/22/2023 exam under anesthesia, pelvic irrigation and insertion of intraabdominal drain FAMILY HISTORY Problem Relation Age of Onset Hypertension Father Diabetes Father Hyperlipidemia Father Cataract Father other (FIBROMYALGIA) Sister Pancreatitis Sister Cancer Maternal Grandmother Breast Cancer Paternal Grandmother Heart Paternal Grandmother Stroke Paternal Grandfather Diabetes Maternal Aunt Anesthesia Problems No Family History Clotting Disorder No Family History Malig Hyperthermia No Family History Social History Tobacco Use Smoking status: Never Smokeless tobacco: Never Vaping Use Vaping status: Never Used Substance Use Topics Alcohol use: Yes Comment: occasional Drug use: No Current Outpatient Medications Medication Sig levETIRAcetam (KEPPRA) 1,000 mg tablet Take 1 tablet by mouth two times a day. fremanezumab-vfrm (AJOVY AUTOINJECTOR) 225 mg/1.5 mL auto-injector Inject 1.5 mL subcutaneously once every month. Do not shake. omeprazole (PRILOSEC) 40 mg capsule Take 1 capsule by mouth two times a day. lacosamide (VIMPAT) 150 mg tab Take 1 tablet by mouth two times a day for 180 days. rizatriptan (MAXALT) 10 mg tablet Take 1 tablet (10 mg) by mouth as needed (at onset of headache. May repeat after 2 hours.). Do not exceed 30 mg per day. MEDROL, DUSTY, 4 mg Dose-Pack Take it as prescribed on the package benzonatate (TESSALON PERLES) 100 mg capsule Take 1 capsule by mouth three times a day as needed. promethazine (PHENERGAN) 25 mg tablet Take 1 tablet by mouth every 6 hours as needed for nausea/vomiting. (Patient not taking: Reported on 01/23/2024) No current facility-administered medications for this visit. Allergies As of Date: 06/29/2024 Allergen Noted Reaction BLEACH (SODIUM HYPOCHLORITE) 03/22/2016 Rash LAMICTAL [LAMOTRIGINE] 06/16/2018 Rash PINE TREES [TREES] 03/22/2016 Rash and Hives TOPIRAMATE 06/07/2023 Rash TREE AND SHRUB POLLEN 09/22/2023 Unknown Fully Assessed 06/29/2024 REVIEW OF SYSTEMS Abdomen: No bloating, early satiety, indigestion, or increased flatulence. No abdominal pain, nausea, vomiting, diarrhea, or constipation. Bladder: No dysuria, gross hematuria, urinary frequency, urinary urgency, or incontinence. Breast: No breast lumps, nipple d/c, overlying skin changes, redness or skin retraction. Expanded ROS: N/A Allergies and current medication updated:Yes SENSITIVE EXAM: The sensitive examination was discussed with the Patient or Patient's Authorized Iron Erector. As applicable, any other physician, advance practice provider, medical student, or other health professional student that will be observing or involved in the sensitive examination for educational or training purposes was discussed with the Patient or Authorized Iron Erector. The Patient or Authorized Iron Erector has agreed to proceed with the sensitive examination. (Sensitive examination includes inspection and/or palpation of the breasts, pelvis, prostate and anorectal regions). 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 Yamil Ng is a 38 year old female who presents for problem visit to evaluate right groin fold irritation/rash that has moved to within the underwear line over the course of 10-15 days. No tx thus far.. 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 History LMP: 07/17/2023 (Exact Date), Hysterectomy Age at Menarche: Age at First : Age at Menopause: Mending Carrier History Comments: Sexual Activity: Yes; Male; hyst Contraception: Vasectomy, Surgical PAST MEDICAL HISTORY Diagnosis Date Anemia Complication of anesthesia nausea and vomiting Episode of recurrent major depressive disorder (HCC) 08/28/2018 Family history of epilepsy aunt Hepatic hemangioma 01/20/2024 Hepatitis in viral diseases classified elsewhere(573.1) when she had mono PMH - PAST MEDICAL HISTORY OF Right Sciatica Seizure disorder (HCC) 02/04/2018 PAST SURGICAL HISTORY Procedure Laterality Date DELIVERY ONLY , low cervical x4 DELIVERY ONLY 10/14/2016 EXCISION GANGLION WRIST DORSAL/VOLAR PRIMARY Right HYSTEROSCOPY ENDOMETRIAL ABLATION N/A 02/28/2023 KNEE SURGERY HX Right shaved patella and removed fat pad LAP HYSTERECTOMY FOR UTERUS 250G OR LESS 09/04/2023 LIG/TRNSXJ FLP TUBE ABDL/VAG APPR UNI/BI Bilateral 10/14/2016 VAGINAL CUFF REPAIR 09/22/2023 exam under anesthesia, pelvic irrigation and insertion of intraabdominal drain FAMILY HISTORY Problem Relation Age of Onset Hypertension Father Diabetes Father Hyperlipidemia Father Cataract Father other (FIBROMYALGIA) Sister Pancreatitis Sister Cancer Maternal Grandmother Breast Cancer Paternal Grandmother Heart Paternal Grandmother Stroke Paternal Grandfather Diabetes Maternal Aunt Anesthesia Problems No Family History Clotting Disorder No Family History Malig Hyperthermia No Family History Social History Tobacco Use Smoking status: Never Smokeless tobacco: Never Vaping Use Vaping status: Never Used Substance Use Topics Alcohol use: Yes Comment: occasional Drug use: No Current Outpatient Medications Medication Sig levETIRAcetam (KEPPRA) 1,000 mg tablet Take 1 tablet by mouth two times a day. fremanezumab-vfrm (AJOVY AUTOINJECTOR) 225 mg/1.5 mL auto-injector Inject 1.5 mL subcutaneously once every month. Do not shake. omeprazole (PRILOSEC) 40 mg capsule Take 1 capsule by mouth two times a day. lacosamide (VIMPAT) 150 mg tab Take 1 tablet by mouth two times a day for 180 days. rizatriptan (MAXALT) 10 mg tablet Take 1 tablet (10 mg) by mouth as needed (at onset of headache. May repeat after 2 hours.). Do not exceed 30 mg per day. MEDROL, DUSTY, 4 mg Dose-Pack Take it as prescribed on the package benzonatate (TESSALON PERLES) 100 mg capsule Take 1 capsule by mouth three times a day as needed. promethazine (PHENERGAN) 25 mg tablet Take 1 tablet by mouth every 6 hours as needed for nausea/vomiting. (Patient not taking: Reported on 01/23/2024) No current facility-administered medications for this visit. Allergies As of Date: 06/29/2024 Allergen Noted Reaction BLEACH (SODIUM HYPOCHLORITE) 03/22/2016 Rash LAMICTAL [LAMOTRIGINE] 06/16/2018 Rash PINE TREES [TREES] 03/22/2016 Rash and Hives TOPIRAMATE 06/07/2023 Rash TREE AND SHRUB POLLEN 09/22/2023 Unknown Fully Assessed 06/29/2024 REVIEW OF SYSTEMS Abdomen: No bloating, early satiety, indigestion, or increased flatulence. No abdominal pain, nausea, vomiting, diarrhea, or constipation. Bladder: No dysuria, gross hematuria, urinary frequency, urinary urgency, or incontinence. Breast: No breast lumps, nipple d/c, overlying skin changes, redness or skin retraction. Expanded ROS: N/A Allergies and current medication updated:Yes SENSITIVE EXAM: The sensitive examination was discussed with the Patient or Patient's Authorized Iron Erector. As applicable, any other physician, advance practice provider, medical student, or other health professional student that will be observing or involved in the sensitive examination for educational or training purposes was discussed with the Patient or Authorized Iron Erector. The Patient or Authorized Iron Erector has agreed to proceed with the sensitive examination. (Sensitive examination includes inspection and/or palpation of the breasts, pelvis, prostate and anorectal regions). EXAM: BP 100/60 Wt 155 lb (70.3kg) LMP 07/17/2023 GENERAL: pleasant, female in no apparent distress PELVIC: Vulva: right thigh fold with tinea like rash with demacation ASSESSMENT AND PLAN: tinea - tinactin or lamasil Assessment & Plan Tinea corporis Henrique Cuevas MD documented in this encounter [facility] 06-25-2024 Telephone encounter Note The following approved medication requests have been transmitted electronically. Requested Prescriptions Signed Prescriptions Disp Refills levETIRAcetam (KEPPRA) 1,000 mg tablet 180 tablet 1 Sig: Take 1 tablet by mouth two times a day. Authorizing Provider: IMANI ESTEVES APRN.CNP [facility] 06-25-2024 Miscellaneous Notes The following approved medication requests have been transmitted electronically. Requested Prescriptions Signed Prescriptions Disp Refills levETIRAcetam (KEPPRA) 1,000 mg tablet 180 tablet 1 Sig: Take 1 tablet by mouth two times a day. Authorizing Provider: IMANI ESTEVES APRN.CNP Prescription Refill: Requested by: patient Please E-Scribe Caller Contact Number: [phone] (home) Pharmacy Name: [facility] Number: [phone] Generic/ brand: generic 30 or 90 day supply requested: 90 Last appointment: 02-07-2024 Next Appointment: none Patient of Dr. Marinelli documented in this encounter [facility] 06-25-2024 Telephone encounter Note Prescription Refill: Requested by: patient Please E-Scribe Caller Contact Number: [phone] (home) Pharmacy Name: [facility] Number: [id number] Generic/ brand: generic 30 or 90 day supply requested: 90 Last appointment: 02-07-2024 Next Appointment: none Patient of Dr. Marinelli [facility] 06-01-2024 Note HNO ID: [id number] Author: IVETH URIARTE APRN.TRACK WATCHMAN Service: ? Author Type: Nurse Practitioner Type: Progress Notes Filed: 06/01/2024 14:16 Note Text: Chief Complaint Patient presents with: ER F/U: Suture removal tight middle finger HPI Yamil Ng is a 38 year old female who presents here today for Above Complaints.. Patient presents for suture removal. Had injury to right middle finger nail and received 3 sutures on 05/24. Here today for removal. Past medical history, appointments, medications, allergies reviewed. Previous Medical History PAST MEDICAL HISTORY Diagnosis Date Anemia Complication of anesthesia nausea and vomiting Episode of recurrent major depressive disorder (HCC) 08/28/2018 Family history of epilepsy aunt Hepatic hemangioma 01/20/2024 Hepatitis in viral diseases classified elsewhere(573.1) when she had mono PMH - PAST MEDICAL HISTORY OF Right Sciatica Seizure disorder (HCC) 02/04/2018 Previous Surgical History PAST SURGICAL HISTORY Procedure Laterality Date DELIVERY ONLY , low cervical x4 DELIVERY ONLY 10/14/2016 EXCISION GANGLION WRIST DORSAL/VOLAR PRIMARY Right HYSTEROSCOPY ENDOMETRIAL ABLATION N/A 02/28/2023 KNEE SURGERY HX Right shaved patella and removed fat pad LAP HYSTERECTOMY FOR UTERUS 250G OR LESS 09/04/2023 LIG/TRNSXJ FLP TUBE ABDL/VAG APPR UNI/BI Bilateral 10/14/2016 VAGINAL CUFF REPAIR 09/22/2023 exam under anesthesia, pelvic irrigation and insertion of intraabdominal drain Family History FAMILY HISTORY Problem Relation Age of Onset Hypertension Father Diabetes Father Hyperlipidemia Father Cataract Father other (FIBROMYALGIA) Sister Pancreatitis Sister Cancer Maternal Grandmother Breast Cancer Paternal Grandmother Heart Paternal Grandmother Stroke Paternal Grandfather Diabetes Maternal Aunt Anesthesia Problems No Family History Clotting Disorder No Family History Malig Hyperthermia No Family History Patient Allergies ALLERGIES Allergen Reactions Bleach (Sodium Hypo* Rash Lamictal [Lamotrigi* Rash [place]rees [Trees] Rash, Hives Topiramate Rash Tree And Shrub Poll* Unknown Current Medications Current Outpatient Medications on File Prior to Visit Medication Sig fremanezumab-vfrm (AJOVY AUTOINJECTOR) 225 mg/1.5 mL auto-injector Inject 1.5 mL subcutaneously once every month. Do not shake. rizatriptan (MAXALT) 10 mg tablet Take 1 tablet (10 mg) by mouth as needed (at onset of headache. May repeat after 2 hours.). Do not exceed 30 mg per day. MEDROL, DUSTY, 4 mg Dose-Pack Take it as prescribed on the package benzonatate (TESSALON PERLES) 100 mg capsule Take 1 capsule by mouth three times a day as needed. omeprazole (PRILOSEC) 40 mg capsule Take 1 capsule by mouth two times a day. lacosamide (VIMPAT) 150 mg tab Take 1 tablet by mouth two times a day for 180 days. promethazine (PHENERGAN) 25 mg tablet Take 1 tablet by mouth every 6 hours as needed for nausea/vomiting. (Patient not taking: Reported on 01/23/2024) levETIRAcetam (KEPPRA) 1,000 mg tablet Take 1 tablet by mouth two times a day. [DISCONTINUED] topiramate (TOPAMAX) 25 mg tablet Take by mouth. One tablet twice daily for a week; then two tablets twice daily thereafter. No current facility-administered medications on file prior to visit. Social History Social History Tobacco Use Smoking status: Never Smokeless tobacco: Never Vaping Use Vaping status: Never Used Substance Use Topics Alcohol use: Yes Comment: occasional Drug use: No Review of Symptoms REVIEW OF SYSTEMS SEE HPI EXAM: BP 103/69 Pulse 70 Resp 14 Wt 70.3 kg (155 lb) LMP 07/17/2023 (Exact Date) BMI 27.46 kg/m? General Appearance: Well appearing, alert, in no acute distress, well-hydrated, well nourished.. Extremities: Positive findings: joint location: middle on right dip(s) 4 sutures to nail bed and finger. No redness, swelling, drainage. Lower half of nail is soft and white, upper half of nail intact and pink . Health Maintenance List Hepatitis C Screening Never done Hepatitis B Vaccine(1 of 3 - 19+ 3-dose series) Never done Cervical Cancer Screening due on 11/24/2023 Influenza Vaccine(1) Never done Covid-19 Vaccine(2023- season) Never done Mammogram Screening due on 11/05/2024 DTaP,Tdap,Td Vaccine(4 - Td or Tdap) due on 05/24/2034 HIV Screening Completed HPV Vaccine Aged Out ASSESSMENT/PLAN: 1. Visit for suture removal - ICD9: V58.32, ICD10: Z48.02 (primary diagnosis) 4 sutures removed from nail bed and middle nail. Patient tolerated well. Bandaid applied to prevent nail from catching. 2. Laceration of right middle finger without foreign body with damage to nail, subsequent encounter - ICD9: V58.89, ICD10: S61.312D -Well approximated and without s/sx of infection. Iveth Uriarte, BLOCKLAYER.[facility] 06-01-2024 History of Present illness Narrative Chief Complaint Patient presents with: ER F/U: Suture removal tight middle finger HPI Yamil Ng is a 38 year old female who presents here today for Above Complaints.. Patient presents for suture removal. Had injury to right middle finger nail and received 3 sutures on 05/24. Here today for removal. Past medical history, appointments, medications, allergies reviewed. Previous Medical History PAST MEDICAL HISTORY Diagnosis Date Anemia Complication of anesthesia nausea and vomiting Episode of recurrent major depressive disorder (HCC) 08/28/2018 Family history of epilepsy aunt Hepatic hemangioma 01/20/2024 Hepatitis in viral diseases classified elsewhere(573.1) when she had mono PMH - PAST MEDICAL HISTORY OF Right Sciatica Seizure disorder (HCC) 02/04/2018 Previous Surgical History PAST SURGICAL HISTORY Procedure Laterality Date DELIVERY ONLY , low cervical x4 DELIVERY ONLY 10/14/2016 EXCISION GANGLION WRIST DORSAL/VOLAR PRIMARY Right HYSTEROSCOPY ENDOMETRIAL ABLATION N/A 02/28/2023 KNEE SURGERY HX Right shaved patella and removed fat pad LAP HYSTERECTOMY FOR UTERUS 250G OR LESS 09/04/2023 LIG/TRNSXJ FLP TUBE ABDL/VAG APPR UNI/BI Bilateral 10/14/2016 VAGINAL CUFF REPAIR 09/22/2023 exam under anesthesia, pelvic irrigation and insertion of intraabdominal drain Family History FAMILY HISTORY Problem Relation Age of Onset Hypertension Father Diabetes Father Hyperlipidemia Father Cataract Father other (FIBROMYALGIA) Sister Pancreatitis Sister Cancer Maternal Grandmother Breast Cancer Paternal Grandmother Heart Paternal Grandmother Stroke Paternal Grandfather Diabetes Maternal Aunt Anesthesia Problems No Family History Clotting Disorder No Family History Malig Hyperthermia No Family History Patient Allergies ALLERGIES Allergen Reactions Bleach (Sodium Hypo* Rash Lamictal [Lamotrigi* Rash [place] [Trees] Rash, Hives Topiramate Rash Tree And Shrub Poll* Unknown Current Medications Current Outpatient Medications on File Prior to Visit Medication Sig fremanezumab-vfrm (AJOVY AUTOINJECTOR) 225 mg/1.5 mL auto-injector Inject 1.5 mL subcutaneously once every month. Do not shake. rizatriptan (MAXALT) 10 mg tablet Take 1 tablet (10 mg) by mouth as needed (at onset of headache. May repeat after 2 hours.). Do not exceed 30 mg per day. MEDROL, DUSTY, 4 mg Dose-Pack Take it as prescribed on the package benzonatate (TESSALON PERLES) 100 mg capsule Take 1 capsule by mouth three times a day as needed. omeprazole (PRILOSEC) 40 mg capsule Take 1 capsule by mouth two times a day. lacosamide (VIMPAT) 150 mg tab Take 1 tablet by mouth two times a day for 180 days. promethazine (PHENERGAN) 25 mg tablet Take 1 tablet by mouth every 6 hours as needed for nausea/vomiting. (Patient not taking: Reported on 01/23/2024) levETIRAcetam (KEPPRA) 1,000 mg tablet Take 1 tablet by mouth two times a day. [DISCONTINUED] topiramate (TOPAMAX) 25 mg tablet Take by mouth. One tablet twice daily for a week; then two tablets twice daily thereafter. No current facility-administered medications on file prior to visit. Social History Social History Tobacco Use Smoking status: Never Smokeless tobacco: Never Vaping Use Vaping status: Never Used Substance Use Topics Alcohol use: Yes Comment: occasional Drug use: No Review of Symptoms REVIEW OF SYSTEMS SEE HPI EXAM: BP 103/69 Pulse 70 Resp 14 Wt 70.3 kg (155 lb) LMP 07/17/2023 (Exact Date) BMI 27.46 kg/m General Appearance: Well appearing, alert, in no acute distress, well-hydrated, well nourished.. Extremities: Positive findings: joint location: middle on right dip(s) 4 sutures to nail bed and finger. No redness, swelling, drainage. Lower half of nail is soft and white, upper half of nail intact and pink . Health Maintenance List Hepatitis C Screening Never done Hepatitis B Vaccine(1 of 3 - 19+ 3-dose series) Never done Cervical Cancer Screening due on 11/24/2023 Influenza Vaccine(1) Never done Covid-19 Vaccine(2023- season) Never done Mammogram Screening due on 11/05/2024 DTaP,Tdap,Td Vaccine(4 - Td or Tdap) due on 05/24/2034 HIV Screening Completed HPV Vaccine Aged Out ASSESSMENT/PLAN: 1. Visit for suture removal - ICD9: V58.32, ICD10: Z48.02 (primary diagnosis) 4 sutures removed from nail bed and middle nail. Patient tolerated well. Bandaid applied to prevent nail from catching. 2. Laceration of right middle finger without foreign body with damage to nail, subsequent encounter - ICD9: V58.89, ICD10: S61.312D -Well approximated and without s/sx of infection. Iveth Uriarte APRN.TRACK WATCHMAN documented in this encounter [facility] 05-25-2024 Telephone encounter Note Qulipta was denied due to patient has to try an injectable first such as Ajovy. Will start PA for Ajovy. We will request a precertification for a CGRP such as Fremanezumab (Ajovy) for the prevention of chronic migraine . This patient meets ICHD-3 criteria for treatment of migraine with a small molecule CGRP antagonist GEPANT. The FDA has approved GEPANTS for the treatment of migraine. Specifically, the patient has almost daily with 8-10 migraines headaches per month, lasting 4 or more hours/day associated with photophobia, phonophobia, osmophobia, nausea, blurred vision for three or more months. Medication overuse headache has been ruled out.Patient will not use with a GEPANT. The patient has a contraindication TCAs low the seizure threshold The following preventative medications have been tried for three or more months without benefit: Topamax-ineffective and allergic Propranolol-ineffective Nortriptyline-lowers seizure threshold-patient with hx of epilepsy The following abortive medications have been tried but require high frequency use which can lead to Medication Overuse Headache: Excedrine, rizatriptan [facility] 05-25-2024 Miscellaneous Notes Qulipta was denied due to patient has to try an injectable first such as Ajovy. Will start PA for Ajovy. We will request a precertification for a CGRP such as Fremanezumab (Ajovy) for the prevention of chronic migraine . This patient meets ICHD-3 criteria for treatment of migraine with a small molecule CGRP antagonist GEPANT. The FDA has approved GEPANTS for the treatment of migraine. Specifically, the patient has almost daily with 8-10 migraines headaches per month, lasting 4 or more hours/day associated with photophobia, phonophobia, osmophobia, nausea, blurred vision for three or more months. Medication overuse headache has been ruled out.Patient will not use with a GEPANT. The patient has a contraindication TCAs low the seizure threshold The following preventative medications have been tried for three or more months without benefit: Topamax-ineffective and allergic Propranolol-ineffective Nortriptyline-lowers seizure threshold-patient with hx of epilepsy The following abortive medications have been tried but require high frequency use which can lead to Medication Overuse Headache: Excedrine, rizatriptan documented in this encounter [facility] 05-22-2024 Instructions Martine Marinelli APRN.CNP - 05/22/2024 3:31 PM EST Preventative: Qulipta Abortive: Rizatriptan Headache Preventive Treatment: Please keep in mind that it takes 4-6 weeks for the medication to start working well and 2-3 months at the appropriate dose before deciding if it will be useful or not. If it is not helping at all by this time, then we will discuss other medications to try. Supplements may take 3-6 months until you see full effect. Natural supplements: Magnesium Oxide 500 mg at bed Coenzyme Q10 300 mg in AM Vitamin B2- 200 mg twice a day Feverfew 50 mg twice a day Vitamins and herbs that show potential Magnesium: Magnesium (250 mg twice a day or 500 mg at bed) has a relaxant effect on smooth muscles such as blood vessels. Individuals suffering from frequent or daily headache usually have low magnesium levels which can be increase with daily supplementation of 400-750 mg. Three trials found 40-90% average headache reduction when used as a preventative. Magnesium also demonstrated the benefit in menstrually related migraine. Magnesium is part of the messenger system in the serotonin cascade and it is a good muscle relaxant. It is also useful for constipation which can be a side effect of other medications used to treat migraine. Good sources include nuts, whole grains, and tomatoes. Magnesium comes in many different forms: Magnesium glycinate is a good choice for those with a sensitive stomach who have gastrointestinal side effects such as diarrhea with other forms of magnesium. It is anecdotally also helpful with anxiety and sleep. Magnesium threonate also has low risk of gastrointestinal side effects and anecdotally helpful with cognitive function and brain fog symptoms. Magnesium malate has low gastrointestinal side effects and is reportedly more energizing and anecdotally often helpful in fibromyalgia and chronic fatigue syndrome. Magnesium citrate is one of the most studied, popular, and well-absorbed forms of magnesium. It can also be mixed easily with liquids if you can't take pills. However, it comes with a higher risk of diarrhea and gastrointestinal side effects, although this could be helpful for those with constipation. Magnesium oxide is also well studied, cheap, and often used for heartburn and indigestion. However, it is not well absorbed and can have some laxative side effects as well, so can also be helpful for constipation. Riboflavin (vitamin B 2) 200 mg twice a day. This vitamin assists nerve cells in the production of ATP a principal energy storing molecule. It is necessary for many chemical reactions in the body. There have been at least 3 clinical trials of riboflavin using 400 mg per day all of which suggested that migraine frequency can be decreased. All 3 trials showed significant improvement in over half of migraine sufferers. The supplement is found in bread, cereal, milk, meat, and poultry. Most Americans get more riboflavin than the recommended daily allowance, however riboflavin deficiency is not necessary for the supplements to help prevent headache. Feverfew: Feverfew is a common garden herb [place] to [place] and popular in [facility] as a treatment for disorders typically controlled by aspirin. The mechanism of action is unknown but is believed to be related to a chemical called parthenolide which helps the body use serotonin more effectively. Serotonin helps prevent migraine and assists with resolution when it occurs. Parthenolide also inhibits the release of histamine which is linked to pain and inflammation. Consistency of active ingredients in different products can be a problem. Some formulations don't have the active ingredient (parthenolide) that prevents migraine. A parthenolide content of 0.2% is generally recommended. Typical dosage is one capsule 3 times a day. Coenzyme Q10: This is present in almost all cells in the body and is critical component for the conversion of energy. Recent studies have shown that a nutritional supplement of CoQ10 can reduce the frequency of migraine attacks by improving the energy production of cells as with riboflavin. Doses of 150 mg twice a day have been shown to be effective. Melatonin: Increasing evidence shows correlation between melatonin secretion and headache conditions. Melatonin supplementation has decreased headache intensity and duration. It is widely used as a sleep aid. Sleep is natures way of dealing with migraine. A dose of 3 mg is recommended to start for headaches including cluster headache. Higher doses up to 15 mg has been reviewed for use in Cluster headache and have been used. The rationale behind using melatonin for cluster is that many theories regarding the cause of Cluster headache center around the disruption of the normal circadian rhythm in the brain. This helps restore the normal circadian rhythm. Juan F: Juan F has a small amount of antihistamine and anti-inflammatory action which may help headache. It is primarily used for nausea and may aid in the absorption of other medications. HEADACHE DIET: Foods and beverages which may trigger migraine Note that only 20% of headache patients are food sensitive. You will know if you are food sensitive if you get a headache consistently 20 minutes to 2 hours after eating a certain food. Only cut out a food if it causes headaches, otherwise you might remove foods you enjoy! What matters most for diet is to eat a well balanced healthy diet full of vegetables and low fat protein, and to not miss meals. Chocolate, other sweets ALL cheeses except cottage and cream cheese Dairy products, yogurt, sour cream, ice cream Liver Meat extracts (Bovril, Marmite, meat tenderizers) Meats or fish which have undergone aging, fermenting, pickling or smoking. These include: Hotdogs,salami,Lox,sausage, mortadellas,smoked salmon, pepperoni, Pickled ochoa Pods of broad mitchell (Djiboutian beans, Montserratian pea pods, Latvian (pierce) beans, carrasco and navy beans Ripe avocado, ripe banana Yeast extracts or active yeast preparations such as Anna's or Leonie's (commercial bakes goods are permitted) Tomato based foods, pizza (lasagna, etc.) MSG (monosodium glutamate) is disguised as many things; look for these common aliases: Monopotassium glutamate Autolysed yeast Hydrolysed protein Sodium caseinate flavorings all natural preservatives Nutrasweet Avoid all other foods that convincingly provoke headaches. Headache Prevention Strategies: 1. Maintain a headache diary; learn to identify and avoid triggers. Common triggers include: Emotional triggers: Emotional/Upset family or friends Emotional/Upset occupation Business reversal/success Anticipation anxiety Crisis-serious Post-crisis periodNew job/position Physical triggers: Vacation Day Weekend Strenuous Exercise High Altitude Location New Move Day Physical Illness Oversleep/Not enough sleep Weather changes Light: Photophobia or light sesnitivity treatment involves a balance between desensitization and reduction in overly strong input. Use dark polarized glasses outside, but not inside. Avoid bright or fluorescent light, but do not dim environment to the point that going into a normally lit room hurts. Consider FL-41 tint lenses, which reduce the most irritating wavelengths without blocking too much light. These can be obtained at [employer] or [employer]: see list above. 2. Limit use of acute treatments (wtdg-eja-uhdhwaz medications, triptans, etc.) to no more than 2 days per week or 10 days per month to prevent medication overuse headache (rebound headache). 3. Follow a regular schedule (including weekends and holidays): Don't skip meals. Eat a balanced diet. 8 hours of sleep nightly. Minimize stress. Exercise 30 minutes per day. Being overweight is associated with a 5 times increased risk of chronic migraine. Keep well hydrated and drink 6-8 glasses of water per day. 4. Initiate non-pharmacologic measures at the earliest onset of your headache. Rest and quiet environment. Relax and reduce stress. [id number] is a free everette that can instruct you on some simple relaxtion and breathing techniques. Http://Flexiant is a free website that provides teaching videos on relaxation. Also, there are many apps that can be downloaded for mindful relaxation. An everette called YOGA NIDRA will help walk you through mindfulness. Cold compresses. 5. Don't wait!! Take the maximum allowable dosage of prescribed medication at the first sign of migraine. 6. Compliance: Take prescribed medication regularly as directed and at the first sign of a migraine. 7. Communicate: Call your physician when problems arise, especially if your headaches change, increase in frequency/severity, or become associated with neurological symptoms (weakness, numbness, slurred speech, etc.). 8. Headache/pain management therapies: Consider various complementary methods, including medication, behavioral therapy, psychological counselling, biofeedback, massage therapy, acupuncture, dry needling, and other modalities. Such measures may reduce the need for medications. Counseling for pain management, where patients learn to function and ignore/minimize their pain, seems to work very well. 9. Recommend changing family's attention and focus away from patient's headaches. Instead, emphasize daily activities. If first question of day is 'How are your headaches/Do you have a headache today?', then patient will constantly think about headaches, thus making them worse. Goal is to re-direct attention away from headaches, toward daily activities and other distractions. 10. Helpful Websites: www.AmericanHeadacheSociety.org www.migrainetrust.org www.headaches.org www.migraine.org.uk www.achenet.org 11. HEADACHE EXPECTATIONS: There are many types of headaches, and only a rare few in which complete relief can be expected. In general, there is no cure for headache, especially migraine based headaches. There is nothing available that completely prevents headaches from occurring, breaking through, or having periodic flare-ups and fluctuations. Regardless of what you are using on a daily basis for prevention, episodic headaches should still be expected, and periods where frequency may escalate and fluctuate are unavoidable. There is no quick fix for most headaches. Furthermore, the longer you have had high frequency headaches (such as chronic daily headache), the longer it will likely take to expect any improvement. In fact, some people will never improve, regardless of how many medications or other treatments we try. Our treatment strategy is to evaluate for possible causes of your headache, although testing is usually always normal, even in cases of daily continuous headaches for years. Most types of headache such as migraine are electrical brain disorders (similar to how epilepsy is an electrical brain disorders). Therefore, there is no testing that will reveal this dysfunctional electrical circuitry such on MRI, or other testing. We try to find a medication that may help lessen the frequency and/or severity of your headaches. The goal is not to completely stop them from happening, although if that happens, great! Different people respond to different medications, and some people just don't respond to anything, so it's usually a matter of trying different options. We can not predict if or when exactly you will respond to a treatment that we provide. Preventive headache medications take 4-6 weeks to start working, and 2-3 months to see full effect, assuming you reach an effective dose. Therefore, calling or messaging frequently because you have a headache flare prior to the 3 month macey is unlikely to change anything, and unfortunately there is nothing available that will expedite this, so please try to avoid this. Our recommendation will generally be to give it adequate time first. If you are unable to wait it out for medications to work, we can also try IV infusions for some temporary relief. O In general, the best that preventive medications or other treatments (including Botox) are able to offer in migraine management (variable in other headache types) is a 50% improvement in frequency and/or severity of headache. That is our goal, and any additional benefit is considered a bonus. Some people do significantly better than this, others do not get close to this. Therefore, if your headaches are not improving by at least 3 months on your preventive strategy, contact us and we can discuss further adjustments. Keep in mind that complete headache cure is not a realistic expectation. Our Team: The nursing staff, and medical assistants are a major part of YOUR TREATMENT TEAM and will be handling your phone calls, Patient Feedt Messages and inquiries, if any. Unless explicitly told otherwise at the time of your office visit, your study results and ensuing treatment plans will be released via [email or web address] and discussed during your follow-up appointment. MyChart: Please ask the schedulers to give you an activation code. The main way of communication is by [employer] rather than phone lines, so if you have not signed up, please do so. Patient Feedt is also the way that you can review your labs and testing. We are not able to contact everyone to tell them results are normal. If you do not hear back from us regarding testing you have had, it should be considered normal or within normal range. If you have any questions about the results, you are free to message us. Patient Feedt is meant for simple questions regarding medications, possible side effects, or other simple straight forward questions in limited sentences, rather than multiple paragraphs of discussion. [email or web address] is not meant for, or efficient for these complex questions, extensive questions, extensive medication adjustments, complex new symptoms or concerns. These issues beyond simple questions require a follow up visit with myself, one of our physician assistants, nurse practitioners, or a Virtual Visit via computer or smart phone, as detailed further down. Refills: Please pay attention to when your refills will need to be renewed. Due to the volume of phone calls daily, this could potentially take a few days, although we certainly try to honor your refill requests as soon as we can. You should call at least 1 week in advance of needing a refill to ensure you do not run out of medication. Keep in mind that refill requests on Fridays may not be filled until the following week. In regards to blood work, testing, and radiology reports these are released automatically to the patients. We do not comment on most testing on [employer] in a message or commentary unless there is a concern. You will not receive a message from me of the result unless there is a specific concern of the result I need you to address further in care with us or your primary medical team. Make sure to check your my chart email or everette. As an international referral center for syncope, autonomic dysfunction, general neurology, headache care, neuromuscular disease, and other related conditions, seeing patients from across the world, we do not have the resource of time or staffing to address inquiries for accommodations. As such, we do not provide or complete requests for work accommodations, FMLA, disability, or other such forms. We recommend seeking guidance through your primary care provider for these requests. We are happy to provide our office notes from your visits and other tests or evaluations performed through our clinic, which can be made available upon request to assist you with this process. Rizatriptan 10 mg No history of [place] or CVA. Discussed medication dosage, usage, goals of therapy, and side effects including drowsiness, dizziness & chest/throat tightness. Given instructions on use; take at onset of [facility] can repeat in 2 hours if needed. No more than 2 doses per 24 hours & 3 doses per week. Most people do well on triptans. But side effects can include: Dizziness Dry mouth Feeling heavy in your face, arms, legs, and chest Feeling sleepy Flushing Muscle weakness Nausea Skin reaction (if you take the triptan as a shot) Tightness in your throat Tingling sensations Most of the time, these side effects are mild and go away on their own. documented in this encounter [facility] 05-22-2024 History of Present illness Narrative Images from the original note were not included. [facility] - Headache Evaluation Name: Yamil Ng Age: [age] year old Gender: female Primary Care Provider: Adrianne Ignacio MD Consult requested for headaches by Meredith Edward. Recommendations will be communicated via shared medical record or [place] mail. Chief Complaint:New Patient (Headaches for 6 months having nausea light and smell sensitivity,having some dizziness headaches are front of head and the base of her head ) 05/22/2024 - General Neurology, Martine Marinelli APRN.TRACK WATCHMAN ASSESSMENT This is a 38 year old female with past medical history of anemia, depression, epilepsy, migraine, and seizure disorder presenting with headaches which have began when she was 14-15 years old and worsened in the last 6-8 months. She was seen by Dr. Reddy on May 2023 and she has tried Topamax and propranolol as preventative with no effect. She was never prescribed rescue medication for her migraines. She is experiencing 4 migraines monthly with almost daily headaches rated from 6-9/10 throbbing, pressure, aching headaches associated with photo/phono sensitivity, nausea, vomiting, blurred vision, and dizziness which last for 2 to 4 hours. She finds some headache improvement from massages and sleep. She has epilepsy history. She is on Vimpat 150 mg twice daily and levetiracetam 1000 mg twice daily. Neurological exam is notable for decreased sensation of the right foot on the medial and lateral aspect of the foot along the dermatomes of L4-S1 and decreased temperature sensation of the right lower extremity. The rest of the exam is unremarkable. MRA/MRV/MRI brain done in May 2023 are unremarkable and reassuring. Low concern for central etiology at this time. Etiology of patient's symptoms is consistent with migraine without aura with status migrainosus. Discussed preventative and rescue medications for migraine headaches with patient and who is accompanying patient in this visit. Patient has tried Topamax and propranolol with no effect on her headaches. Next first-line as a preventative medication is TCAs such as nortriptyline or amitriptyline which lowers the seizure threshold. Recommend Qulipta 60 mg as a preventative. Will send PA. Will start patient on rizatriptan 10 mg as a rescue medication for migraines. Dosage, usage, and side effects of triptans were discussed with patient and printed information was provided on after visit summary Patient denies any personal history of [place] or CVA. Discussed medication dosage, usage, goals of therapy, and side effects including drowsiness, dizziness & chest/throat tightness. Given instructions on use; take at onset of [facility] can repeat in 2 hours if needed. No more than 2 doses per 24 hours & 3 doses per week. Patient verbalizes understanding. Well prescribe Medrol pack to break of the headache cycle. There is subjective report of patient previously being prescribed steroids and have tolerated them well. Discussed when to seek further evaluation to emergency department. Plan was discussed with patient and who agreed to the below: PLAN - Qulipta 60 mg daily-migraine prevention -Rizatriptan 10 mg as needed-rescue medication for migraine -Medrol pack-to break of the cycle of daily headaches -Follow-up in 3 months or sooner if symptoms fail to improve Encounter Diagnosis ICD-10-CM 1. Migraine without aura and with status migrainosus, not intractable G43.001 atogepant (QULIPTA) 60 mg tablet rizatriptan (MAXALT) 10 mg tablet MEDROL, DUSTY, 4 mg Dose-Pack 2. Nonintractable headache, unspecified chronicity pattern, unspecified headache type R51.9 The nature of migraine/headache has been discussed. Episodic and prophylactic choices have been explained. Headache days/month: Migraine days/month: 10/21 Preventative: atogepant (Qulipta) Rescue: Maxalt Anti-Emetics: phenergan not sure of the dose. Previously prescribed We will request a precertification for a Calcitonin Gene-Related Peptide Receptor Antagonist (GEPANT) Atogepant for the prevention of chronic migraine . This patient meets ICHD-3 criteria for treatment of migraine with a small molecule CGRP antagonist GEPANT. The FDA has approved GEPANTS for the treatment of migraine. Specifically, the patient has almost daily with 8-10 migraines headaches per month, lasting 4 or more hours/day associated with photophobia, phonophobia, osmophobia, nausea, blurred vision for three or more months. Medication overuse headache has been ruled out.Patient will not use with another GEPANT. The patient has a contraindication TCAs low the seizure threshold The following preventative medications have been tried for three or more months without benefit: Topamax-ineffective and allergic Propranolol-ineffective Nortriptyline-lowers seizure threshold-patient with hx of epilepsy The following abortive medications have been tried but require high frequency use which can lead to Medication Overuse Headache: Excedrine, rizatriptan Return in about 3 months (around 08/21/2024), or if symptoms worsen or fail to improve. She was seen by Dr. Nils Reddy was neurology on 06/03/2023 She was placed on Topamax 50 mg twice daily as a preventative medication for migraines and later stoped due to side effects. She was placed on propranolol 10 mg 3 times daily which was stopped due to ineffectiveness She is also on Keppra 1000 mg 2 times daily and Vimpat 150 mg 2 times daily HPI: This is a 38 year old female with past medical history of anemia, depression, epilepsy, migraine, and seizure disorder presenting with headaches which have began when she was 14-15 years old and worsened in the last 6-8 months. She has tried Topamax and propranolol with no effects. She is on Keppra and Vimpat for her epilepsy. Frequency of headaches almost daily rated 5-6/10 with once a week migraine headache rated 8-9/10 . Headaches are located temporally or occipitally bilaterally. Describes the pain as throbbing, pressure, achy pain. Associated with photo/phonophobia, nausea, blurred vision, and dizziness described as lightheadedness. Reports peripheral vision loss with the headaches. Denies any auras. Denies any one sided numbness, tingling, one sided weakness, VP STRATEGY, or autonomic features. Headaches last a couple hours Rest and massages help or decrease the headache. She does not take any OTC due to being ineffective Last seizure in either November-December 2023. Reports intermittent tinnitus R>L Denies hearing loss or ear pain. Migraine HPI HEADACHE LOCATION: temporal region bilateral, occipital region bilateral, and cervical region bilateral Onset: Headaches began >25 years ago Quality: aching, pressure, and throbbing Photophobia? Yes Phonophobia? Yes Nausea? Yes Vomitting? Yes Aura? No None Worse with activity? Yes Severe? Yes Frequency: 4 times a month with almost daily headache Duration? A couple hours. Caffeine intake? None Water intake? Eight or more 8 ounce glasses daily. Triggers? after stressful situations and hunger Sleep concerns? No wakes up often during the night Mood concerns? No History of concussion? No Autonomic features: None Autonomic headache features -: none Previous/Current Headache treatment Preventative: Vimpat, Keppra, topiramate, propranolol Rescue: Phenergan # of doses of abortive medications per month: < 10 days/month (or 8 for opiates, 5 for barbiturates) Medication Overuse Headache concern? No Positional? No Double vision? No Visual obscurations? No Worse with valsalva/sneeze/cough Yes Plans for No Hysterectomy Family Hx of migraines, aneurysms, brain tumors: No fam hx of migraines Her mother's aunt had a brain aneyrism ACTIVE PROBLEM LIST Ponv (Postoperative Nausea and Vomiting) Iron Deficiency Anemia Focal Epilepsy (Hcc) Encounter for Monitoring Anticonvulsant Therapy Vitamin D Deficiency Uri (Obstructive Sleep Apnea) Anxiety Episode of Recurrent Major Depressive Disorder (Hcc) Splenomegaly Anemia Ganglion Cyst of Wrist, Right Acute Pain of Right Knee Iron Deficiency Anemia Due to Sideropenic Dysphagia Gerd (Gastroesophageal Reflux Disease) Menorrhagia With Irregular Cycle PAST MEDICAL HISTORY Diagnosis Date Anemia Complication of anesthesia nausea and vomiting Episode of recurrent major depressive disorder (HCC) 08/28/2018 Family history of epilepsy aunt Hepatic hemangioma 01/20/2024 Hepatitis in viral diseases classified elsewhere(573.1) when she had mono PMH - PAST MEDICAL HISTORY OF Right Sciatica Seizure disorder (HCC) 02/04/2018 Medications: Reviewed omeprazole (PRILOSEC) 40 mg capsule Take 1 capsule by mouth two times a day. lacosamide (VIMPAT) 150 mg tab Take 1 tablet by mouth two times a day for 180 days. levETIRAcetam (KEPPRA) 1,000 mg tablet Take 1 tablet by mouth two times a day. atogepant (QULIPTA) 60 mg tablet Take 1 tablet (60 mg) by mouth once daily. rizatriptan (MAXALT) 10 mg tablet Take 1 tablet (10 mg) by mouth as needed (at onset of headache. May repeat after 2 hours.). Do not exceed 30 mg per day. MEDROL, DUSTY, 4 mg Dose-Pack Take it as prescribed on the package benzonatate (TESSALON PERLES) 100 mg capsule Take 1 capsule by mouth three times a day as needed. promethazine (PHENERGAN) 25 mg tablet Take 1 tablet by mouth every 6 hours as needed for nausea/vomiting. (Patient not taking: Reported on 01/23/2024) [DISCONTINUED] topiramate (TOPAMAX) 25 mg tablet Take by mouth. One tablet twice daily for a week; then two tablets twice daily thereafter. ALLERGIES Allergen Reactions Bleach (Sodium Hypo* Rash Lamictal [Lamotrigi* Rash [place] Trees [Trees] Rash, Hives Topiramate Rash Tree And Shrub Poll* Unknown FAMILY HISTORY Problem Relation Age of Onset Hypertension Father Diabetes Father Hyperlipidemia Father Cataract Father other (FIBROMYALGIA) Sister Pancreatitis Sister Cancer Maternal Grandmother Breast Cancer Paternal Grandmother Heart Paternal Grandmother Stroke Paternal Grandfather Diabetes Maternal Aunt Anesthesia Problems No Family History Clotting Disorder No Family History Malig Hyperthermia No Family History PAST SURGICAL HISTORY Procedure Laterality Date DELIVERY ONLY , low cervical x4 DELIVERY ONLY 10/14/2016 EXCISION GANGLION WRIST DORSAL/VOLAR PRIMARY Right HYSTEROSCOPY ENDOMETRIAL ABLATION N/A 02/28/2023 KNEE SURGERY HX Right shaved patella and removed fat pad LAP HYSTERECTOMY FOR UTERUS 250G OR LESS 09/04/2023 LIG/TRNSXJ FLP TUBE ABDL/VAG APPR UNI/BI Bilateral 10/14/2016 VAGINAL CUFF REPAIR 09/22/2023 exam under anesthesia, pelvic irrigation and insertion of intraabdominal drain SOCIAL HISTORY No social history on file. Tobacco Use: Low Risk (05/22/2024) Patient History Smoking Tobacco Use: Never Smokeless Tobacco Use: Never Passive Exposure: Not on file PHYSICAL EXAM 05/22/24 1459 BP: 104/70 Pulse: 75 Neurological Exam Cognitive and Language: Alert and answered questions appropriately. Language was fluent. Followed simple and complex commands. Cranial Nerves: Visual mcghee were full tested binocularly to finger counting in all 4 quadrants with no visual extinction. Pupils were equal and both reactive to light. Extraocular movements were full with no diplopia or nystagmus. Facial sensation was normal to light touch in V1 to V3. Facial strength was symmetric. Normal hearing grossly bilaterally. Palatal raise was symmetric. Shoulder shrug was symmetric. Tongue protrusion was symmetric with no fasciculations. Trigger point tenderness? No Occipital nerve tenderness? No Right Left Shoulder Abduction: 5 5 Elbow Extension 5 5 Elbow Flexion 5 5 Wrist Extension 5 5 Finger Extension 5 5 Finger Abduction 5 5 Right Left Hip Flexion 5 5 Knee Extension 5 5 Knee Flexion 5 5 Dorsiflexion 5 5 Plantar Flexion 5 5 Rest tremor: absent Tone: Normal in all four limbs Reflexes: Right Left Brachioradialis 2 2 Biceps 2 2 Triceps 2 2 Patella 2 2 Ankle 2 2 Sensory: normal to light touch and vibration x 4 limbs. Decreased sensation of the right foot on the medial and lateral aspect of the foot along the dermatomes of L4-S1. Decreased temperature sensation of the right lower extremity. (Known issue of the right knee postsurgery reported) Coordination: Normal finger to nose and heel to deluca testing bilaterally. Negative romberg. Normal gait. Normal stress gait Labs: Lab Results Component Value Date WBC 7.12 12/25/2023 HCT 45.6 12/25/2023 MCV 89.1 12/25/2023 PLT 301 12/25/2023 Lab Results Component Value Date HBA1C 4.7 12/17/2018 Cholesterol, Total Date Value Ref Range Status 11/22/2022 181 <200 mg/dL Final Comment: <200 mg/dL, Desirable 200-239 mg/dL, Borderline high >239 mg/dL, High HDL Cholesterol Date Value Ref Range Status 11/22/2022 47 >39 mg/dL Final Comment: 40-59 mg/dL, Acceptable >59 mg/dL, High: Negative risk factor for coronary heart disease <40 mg/dL, Low: Positive risk factor for coronary heart disease LDL Cholesterol Date Value Ref Range Status 11/22/2022 113 (H) <100 mg/dL Final Comment: <100 mg/dL, Optimal 100-129 mg/dL, Near optimal/above optimal 130-159 mg/dL, Borderline high 160-189 mg/dL, High >189 mg/dL, Very high Secondary prevention optimal LDL Cholesterol levels are recommended to be < 70 mg/dL Triglyceride Date Value Ref Range Status 11/22/2022 107 <150 mg/dL Final Comment: <150 mg/dL, Normal 150-199 mg/dL, Borderline high 200-499 mg/dL, High >499 mg/dL, Very high Latest Ref Rng 12/25/2023 WBC 3.70 - 11.00 k/uL 7.12 RBC 3.90 - 5.20 m/uL 5.12 Hemoglobin 11.5 - 15.5 g/dL 14.6 Hematocrit 36.0 - 46.0 % 45.6 MCV 80.0 - 100.0 fL 89.1 MCH 26.0 - 34.0 pg 28.5 MCHC 30.5 - 36.0 g/dL 32.0 RDW-CV 11.5 - 15.0 % 12.8 Platelet Count 150 - 400 k/uL 301 MPV 9.0 - 12.7 fL 9.7 Neut% % 58.7 Abs Neut (ANC) 1.45 - 7.50 k/uL 4.18 Lymph% % 31.2 Abs Lymph 1.00 - 4.00 k/uL 2.22 [place]ie% % 8.0 Abs [place] <0.87 k/uL 0.57 Eosin% % 1.1 Abs Eosin <0.46 k/uL 0.08 Baso% % 0.7 Abs Baso <0.11 k/uL 0.05 Immature Gran % % 0.3 IMMATURE GRANS (ABS) <0.10 k/uL <0.03 NRBC /100 WBC 0.0 Absolute nRBC <0.01 k/uL <0.01 DTYPE Auto Protein, Total 6.3 - 8.0 g/dL 7.7 Albumin 3.9 - 4.9 g/dL 4.6 Calcium 8.5 - 10.2 mg/dL 9.9 Bilirubin, Total 0.2 - 1.3 mg/dL 0.4 Alkaline Phosphatase 34 - 123 U/L 63 AST 13 - 35 U/L 25 ALT 7 - 38 U/L 18 Glucose 74 - 99 mg/dL 81 BUN 7 - 21 mg/dL 19 Creatinine 0.58 - 0.96 mg/dL 0.88 Sodium 136 - 144 mmol/L 137 Potassium 3.7 - 5.1 mmol/L 4.6 Chloride 98 - 107 mmol/L 101 CO2 22 - 30 mmol/L 25 Anion Gap 8 - 15 mmol/L 11 eGFR >=60 mL/min/1.73m 85 Lacosamide 2.2 - 19.8 ug/mL Desmethyllacosamide <2.6 ug/mL Levetiracetam 12.0 - 46.0 ug/mL Radiology: MRI Head/Brain - Last 2 Impressions MRI BRAIN WO IVCON Exam End: 05/20/2023 5:39 PM (Final result) Impression: IMPRESSION: Trace nonspecific supratentorial white matter changes with differential provided above. ... MRI BRAIN WO/W IVCON Exam End: 02/18/2018 9:39 AM (Final result) Impression: IMPRESSION: Normal routine MRI brain without and with contrast. ... , MRA Head and/or Neck - Last 2 Impressions MRA BRAIN WO IVCON Exam End: 06/19/2023 10:05 AM (Final result) Impression: IMPRESSION: Unremarkable MRA/MRV of the brain. Binitrotoluene Operator: PSCB Transcribe Date/Time: Jun 19 2023 10:32A Dictated by : ADRIANNE CABRERA MD This examination was interpreted and the report reviewed and electronically signed by: ADRIANNE CABRERA MD on Jun 19 2023 10:38AM EST , MRI Spine - Last 2 Impressions No resulted procedures found. , CT Head/Brain - Last 2 Impressions No resulted procedures found. , and CTA Head and/or Neck - Last 2 No resulted procedures found. Chart, labs,and relevant images reviewed. This note was dictated using ITN speech recognition software and may contain some errors that were a result of the program not accurately transcribing what was dictated, despite efforts to make corrections. Note that unless urgent, test and MRI results will be discussed at next follow-up visit. I spent a total of 60 minutes on the date of the service which included preparing to see the patient, [id number] patient care, completing clinical documentation, obtaining and/or reviewing separately obtained history, performing a medically appropriate examination, counseling and educating the patient/family/caregiver, and ordering medications, tests, or procedures. documented in this encounter [facility] 05-22-2024 Note HNO ID: [id number] Author: MARTINE MARINELLI APRN.CNP Service: ? Author Type: Nurse Practitioner Type: Progress Notes Filed: 05/22/2024 16:25 Note Text: [facility] for General Neurology - Headache Evaluation Name: Yamil Ng Age: [age] year old Gender: female Primary Care Provider: Adrianne Ignacio MD Consult requested for headaches by Meredith Edward. Recommendations will be communicated via shared medical record or US mail. Chief Complaint:New Patient (Headaches for 6 months having nausea light and smell sensitivity,having some dizziness headaches are front of head and the base of her head ) 05/22/2024 - General Neurology, Martine Marinelli APRN.CNP ASSESSMENT This is a 38 year old female with past medical history of anemia, depression, epilepsy, migraine, and seizure disorder presenting with headaches which have began when she was 14-15 years old and worsened in the last 6-8 months. She was seen by Dr. Reddy on May 2023 and she has tried Topamax and propranolol as preventative with no effect. She was never prescribed rescue medication for her migraines. She is experiencing 4 migraines monthly with almost daily headaches rated from 6-9/10 throbbing, pressure, aching headaches associated with photo/phono sensitivity, nausea, vomiting, blurred vision, and dizziness which last for 2 to 4 hours. She finds some headache improvement from massages and sleep. She has epilepsy history. She is on Vimpat 150 mg twice daily and levetiracetam 1000 mg twice daily. Neurological exam is notable for decreased sensation of the right foot on the medial and lateral aspect of the foot along the dermatomes of L4-S1 and decreased temperature sensation of the right lower extremity. The rest of the exam is unremarkable. MRA/MRV/MRI brain done in May 2023 are unremarkable and reassuring. Low concern for central etiology at this time. Etiology of patient's symptoms is consistent with migraine without aura with status migrainosus. Discussed preventative and rescue medications for migraine headaches with patient and who is accompanying patient in this visit. Patient has tried Topamax and propranolol with no effect on her headaches. Next first-line as a preventative medication is TCAs such as nortriptyline or amitriptyline which lowers the seizure threshold. Recommend Qulipta 60 mg as a preventative. Will send PA. Will start patient on rizatriptan 10 mg as a rescue medication for migraines. Dosage, usage, and side effects of triptans were discussed with patient and printed information was provided on after visit summary Patient denies any personal history of [place] or CVA. Discussed medication dosage, usage, goals of therapy, and side effects including drowsiness, dizziness AND chest/throat tightness. Given instructions on use; take at onset of [facility] can repeat in 2 hours if needed. No more than 2 doses per 24 hours AND 3 doses per week. Patient verbalizes understanding. Well prescribe Medrol pack to break of the headache cycle. There is subjective report of patient previously being prescribed steroids and have tolerated them well. Discussed when to seek further evaluation to emergency department. Plan was discussed with patient and who agreed to the below: PLAN - Qulipta 60 mg daily-migraine prevention -Rizatriptan 10 mg as needed-rescue medication for migraine -Medrol pack-to break of the cycle of daily headaches -Follow-up in 3 months or sooner if symptoms fail to improve Encounter Diagnosis ICD-10-CM 1. Migraine without aura and with status migrainosus, not intractable G43.001 atogepant (QULIPTA) 60 mg tablet rizatriptan (MAXALT) 10 mg tablet MEDROL, DUSTY, 4 mg Dose-Pack 2. Nonintractable headache, unspecified chronicity pattern, unspecified headache type R51.9 The nature of migraine/headache has been discussed. Episodic and prophylactic choices have been explained. Headache days/month: Migraine days/month: 10/21 Preventative: atogepant (Qulipta) Rescue: Maxalt Anti-Emetics: phenergan not sure of the dose. Previously prescribed We will request a precertification for a Calcitonin Gene-Related Peptide Receptor Antagonist (GEPANT) Atogepant for the prevention of chronic migraine . This patient meets ICHD-3 criteria for treatment of migraine with a small molecule CGRP antagonist GEPANT. The FDA has approved GEPANTS for the treatment of migraine. Specifically, the patient has almost daily with 8-10 migraines headaches per month, lasting 4 or more hours/day associated with photophobia, phonophobia, osmophobia, nausea, blurred vision for three or more months. Medication overuse headache has been ruled out.Patient will not use with another GEPANT. The patient has a contraindication TCAs low the seizure threshold The following preventative medications have been tried for three or more months without benefit: Topamax-ineffective and (more content not included)... [facility] 05-07-2024 Telephone encounter Note Patient returned call to the office, please return call at (F) [phone]. [facility] 05-07-2024 Miscellaneous Notes Patient returned call to the office, please return call at (E) [phone]. Last visit: 02/07/24 PLAN: - continue LCM 150 mg BID and LEV 1,000 mg BID - plans to have LEV and LCM level checked in 1-2 weeks (to reflect increased dose of LCM), aware of trough draw - advised she can try taking Melatonin for sleep - advised on no driving - follow up in 6 months, earlier as needed Last labs: 02/12/24 Last seizure: Sleep: Call to pt, no answer, msg left. Georgina Archibald RN General call : Full name of person calling: Yamil Ng Relationship to patient: self Phone # : [phone] (home) Reason for call: pt states not with it lately, been forgetful and headache, shaky Patient of Dr. marinelli documented in this encounter [facility] 05-07-2024 Telephone encounter Note Last visit: 02/07/24 PLAN: - continue LCM 150 mg BID and LEV 1,000 mg BID - plans to have LEV and LCM level checked in 1-2 weeks (to reflect increased dose of LCM), aware of trough draw - advised she can try taking Melatonin for sleep - advised on no driving - follow up in 6 months, earlier as needed Last labs: 02/12/24 Last seizure: Sleep: Call to pt, no answer, msg left. Georgina Archibald RN [facility] 05-07-2024 Telephone encounter Note General call : Full name of person calling: Yamil Ng Relationship to patient: self Phone # : [phone] (home) Reason for call: pt states not with it lately, been forgetful and headache, shaky Patient of Dr. marinelli [facility] 04-29-2024 Telephone encounter Note Phoned patient went over results, notes from Sarah Dunbar IRRIGATION PUMP INSTALLER with understanding. [facility] 04-29-2024 Miscellaneous Notes Phoned patient went over results, notes from Sarah Dunbar IRRIGATION PUMP INSTALLER with understanding. ----- Message from Cristy Dunbar APRN.TRACK WATCHMAN sent at 04/29/2024 12:44 PM EST ----- Chest xray is normal. Cristy Dunbar APRN.TRACK WATCHMAN documented in this encounter [facility] 04-29-2024 Telephone encounter Note ----- Message from Cristy Dunbar APRN.BHARAT sent at 04/29/2024 12:44 PM EST ----- Chest xray is normal. Cristy Dunbar APRN.TRACK WATCHMAN [facility] 04-29-2024 History of Present illness Narrative Radiology Service Progress Note PATIENT NAME: Yamil Ng DATE OF SERVICE: April 29, 2024 TIME: 12:31 PM PATIENT IDENTITY VERIFICATION COMPLETED USING TWO (2) IDENTIFIERS: Name and Date of confirmed by patient verbally. FALL SCREENING: Has the patient had 2 falls in the last year or 1 fall with injury or currently using an Ambulatory Assistive Device (Walker, Cane, Wheelchair, Crutches, etc.)? No PATIENT GENDER DATA: Female. status: : No status: NO. PATIENT RELEVANT IMPLANT DATA REVIEWED: Yes PATIENT PRESENTS WITH AN IMPLANTABLE OR ATTACHED INFORMATION TECHNOLOGY INSTRUCTOR: No RADIOLOGY DEPARTMENT: General X-ray: Exam(s) Completed: Chest X-Ray PERIPHERAL IV DATA: Not applicable SIGNED BY: RT Pola(Alice) April 29, 2024 12:31 PM documented in this encounter [facility] 04-29-2024 Note HNO ID: [id number] Author: SARBJIT UMANZOR RT(Alice) Service: ? Author Type: Corporate Sales Manager Type: Progress Notes Filed: 04/29/2024 12:39 Note Text: Radiology Service Progress Note PATIENT NAME: Yamil Ng DATE OF SERVICE: April 29, 2024 TIME: 12:31 PM PATIENT IDENTITY VERIFICATION COMPLETED USING TWO (2) IDENTIFIERS: Name and Date of confirmed by patient verbally. FALL SCREENING: Has the patient had 2 falls in the last year or 1 fall with injury or currently using an Ambulatory Assistive Device (Walker, Cane, Wheelchair, Crutches, etc.)? No PATIENT GENDER DATA: Female. status: : No status: NO. PATIENT RELEVANT IMPLANT DATA REVIEWED: Yes PATIENT PRESENTS WITH AN IMPLANTABLE OR ATTACHED INFORMATION TECHNOLOGY INSTRUCTOR: No RADIOLOGY DEPARTMENT: General X-ray: Exam(s) Completed: Chest X-Ray PERIPHERAL IV DATA: Not applicable SIGNED BY: Sarbjit Umanzor, RT(R) April 29, 2024 12:31 PM [facility] 04-29-2024 Note HNO ID: [id number] Author: CRISTY DUNBAR APRN.TRACK WATCHMAN Service: ? Author Type: Nurse Practitioner Type: Progress Notes Filed: 04/29/2024 12:29 Note Text: 04/29/2024 Patient presents with: Follow Up: Patient reports was improving with treatment for PNE but feels symptoms are returning SUBJECTIVE: This is a 38 year old that is here today for Above Complaints. Seen in [facility] on 04/13/2024 for fever, cough, and SOB. CXR showed pneumonia. Treated with Doxycycline. Completed Doxycyline about 14 days ago. Yesterday cough has returned. Feels like she can't catch her breath. [place] feverish last night but didn't take temp. [place] hot/cold last night. Headache two nights ago. Not using any OTC medications.Denies muscle aches, nasal congestion, rhinorrhea, dyspnea, wheezing, chest pain, nausea, vomiting or diarrhea PAST MEDICAL HISTORY Diagnosis Date Anemia Complication of anesthesia nausea and vomiting Episode of recurrent major depressive disorder (HCC) 08/28/2018 Family history of epilepsy aunt Hepatic hemangioma 01/20/2024 Hepatitis in viral diseases classified elsewhere(573.1) when she had mono PMH - PAST MEDICAL HISTORY OF Right Sciatica Seizure disorder (HCC) 02/04/2018 ALLERGIES Bleach (Sodium Hypochlorite), Lamictal [Lamotrigine], [place] Trees [Trees], Topiramate, and Tree And Shrub Pollen MEDICATIONS Current Outpatient Medications Medication Sig omeprazole (PRILOSEC) 40 mg capsule Take 1 capsule by mouth two times a day. lacosamide (VIMPAT) 150 mg tab Take 1 tablet by mouth two times a day for 180 days. levETIRAcetam (KEPPRA) 1,000 mg tablet Take 1 tablet by mouth two times a day. promethazine (PHENERGAN) 25 mg tablet Take 1 tablet by mouth every 6 hours as needed for nausea/vomiting. (Patient not taking: Reported on 01/23/2024) No current facility-administered medications for this visit. Medications and allergies reviewed by this provider. SOCIAL HISTORY Social History Tobacco Use Smoking status: Never Smokeless tobacco: Never Vaping Use Vaping status: Never Used Substance Use Topics Alcohol use: Yes Comment: occasional Drug use: No REVIEW OF SYSTEMS All other reviewed and negative other than HPI. OBJECTIVE: BP 110/72 Pulse 64 Temp 36.8 ?C (98.2 ?F) Resp 16 Wt 69.4 kg (153 lb) LMP 07/17/2023 (Exact Date) SpO2 99% BMI 27.10 kg/m? . Vital signs reviewed by this provider. APPEARANCE Well appearing, alert, in no acute distress, well-hydrated, well nourished. EYES conjunctiva and sclera normal. NECK Supple, no adenopathy; thyroid symmetric, normal size, no bruits HEART RRR with normal S1 and S2, no murmurs, no gallops, no JVD appreciated LUNG clear to auscultation. No wheezes rhonchi or rales. Able to speak in full sentences without difficulty SKIN Skin color, texture, turgor normal, no suspicious rashes or lesions to exposed skin Hepatitis C Screening Never done Hepatitis B Vaccine(1 of 3 - 19+ 3-dose series) Never done Cervical Cancer Screening due on 11/24/2023 Influenza Vaccine(1) Never done Covid-19 Vaccine( - 2023- season) Never done Mammogram Screening due on 11/05/2024 DTaP,Tdap,Td Vaccine(3 - Td or Tdap) due on 07/30/2026 HIV Screening Completed HPV Vaccine Aged Out ASSESSMENT/PLAN: 1. Acute cough - ICD9: 786.2, ICD10: R05.1 - no red flag symptoms or exam findings - red flag symptoms discussed, verbalizes understanding - XR CHEST 2V FRONTAL/LAT - BENZONATATE 100 MG CAPSULE - follow-up pending chest xray Cristy Dunbar, BLOCKLAYER.TRACK WATCHMAN Prescription instructions reviewed with patient as applicable. Patient advised if symptoms do not improve or if symptoms worsen sooner, to contact their primary care physician. Potential red flag symptoms discussed with the patient. Reviewed appropriate action plan to take if red flag symptoms occur. Patient agreeable to treatment plan. Medical Decision Making: Problems: Low: Acute, uncomplicated illness or injury Data: Unique test(s) ordered: 1 Risk: Moderate: Moderate risk from testing/treatment Medical Decision Making Level: 3 - Low [facility] 04-29-2024 History of Present illness Narrative 04/29/2024 Patient presents with: Follow Up: Patient reports was improving with treatment for PNE but feels symptoms are returning SUBJECTIVE: This is a 38 year old that is here today for Above Complaints. Seen in [facility] on 04/13/2024 for fever, cough, and SOB. CXR showed pneumonia. Treated with Doxycycline. Completed Doxycyline about 14 days ago. Yesterday cough has returned. Feels like she can't catch her breath. [place] feverish last night but didn't take temp. [place] hot/cold last night. Headache two nights ago. Not using any OTC medications.Denies muscle aches, nasal congestion, rhinorrhea, dyspnea, wheezing, chest pain, nausea, vomiting or diarrhea PAST MEDICAL HISTORY Diagnosis Date Anemia Complication of anesthesia nausea and vomiting Episode of recurrent major depressive disorder (HCC) 08/28/2018 Family history of epilepsy aunt Hepatic hemangioma 01/20/2024 Hepatitis in viral diseases classified elsewhere(573.1) when she had mono PMH - PAST MEDICAL HISTORY OF Right Sciatica Seizure disorder (HCC) 02/04/2018 ALLERGIES Bleach (Sodium Hypochlorite), Lamictal [Lamotrigine], [place] [Trees], Topiramate, and Tree And Shrub Pollen MEDICATIONS Current Outpatient Medications Medication Sig omeprazole (PRILOSEC) 40 mg capsule Take 1 capsule by mouth two times a day. lacosamide (VIMPAT) 150 mg tab Take 1 tablet by mouth two times a day for 180 days. levETIRAcetam (KEPPRA) 1,000 mg tablet Take 1 tablet by mouth two times a day. promethazine (PHENERGAN) 25 mg tablet Take 1 tablet by mouth every 6 hours as needed for nausea/vomiting. (Patient not taking: Reported on 01/23/2024) No current facility-administered medications for this visit. Medications and allergies reviewed by this provider. SOCIAL HISTORY Social History Tobacco Use Smoking status: Never Smokeless tobacco: Never Vaping Use Vaping status: Never Used Substance Use Topics Alcohol use: Yes Comment: occasional Drug use: No REVIEW OF SYSTEMS All other reviewed and negative other than HPI. OBJECTIVE: BP 110/72 Pulse 64 Temp 36.8 C (98.2 F) Resp 16 Wt 69.4 kg (153 lb) LMP 07/17/2023 (Exact Date) SpO2 99% BMI 27.10 kg/m . Vital signs reviewed by this provider. APPEARANCE Well appearing, alert, in no acute distress, well-hydrated, well nourished. EYES conjunctiva and sclera normal. NECK Supple, no adenopathy; thyroid symmetric, normal size, no bruits HEART RRR with normal S1 and S2, no murmurs, no gallops, no JVD appreciated LUNG clear to auscultation. No wheezes rhonchi or rales. Able to speak in full sentences without difficulty SKIN Skin color, texture, turgor normal, no suspicious rashes or lesions to exposed skin Hepatitis C Screening Never done Hepatitis B Vaccine(1 of 3 - 19+ 3-dose series) Never done Cervical Cancer Screening due on 11/24/2023 Influenza Vaccine(1) Never done Covid-19 Vaccine( - 2023- season) Never done Mammogram Screening due on 11/05/2024 DTaP,Tdap,Td Vaccine(3 - Td or Tdap) due on 07/30/2026 HIV Screening Completed HPV Vaccine Aged Out ASSESSMENT/PLAN: 1. Acute cough - ICD9: 786.2, ICD10: R05.1 - no red flag symptoms or exam findings - red flag symptoms discussed, verbalizes understanding - XR CHEST 2V FRONTAL/LAT - BENZONATATE 100 MG CAPSULE - follow-up pending chest xray Cristy Dunbar, BLOCKLAYER.TRACK WATCHMAN Prescription instructions reviewed with patient as applicable. Patient advised if symptoms do not improve or if symptoms worsen sooner, to contact their primary care physician. Potential red flag symptoms discussed with the patient. Reviewed appropriate action plan to take if red flag symptoms occur. Patient agreeable to treatment plan. Medical Decision Making: Problems: Low: Acute, uncomplicated illness or injury Data: Unique test(s) ordered: 1 Risk: Moderate: Moderate risk from testing/treatment Medical Decision Making Level: 3 - Low documented in this encounter [facility] 04-13-2024 History of Present illness Narrative Radiology Service Progress Note PATIENT NAME: Yamil Ng DATE OF SERVICE: April 13, 2024 TIME: 2:06 PM PATIENT IDENTITY VERIFICATION COMPLETED USING TWO (2) IDENTIFIERS: Name and Date of confirmed by patient verbally. FALL SCREENING: Has the patient had 2 falls in the last year or 1 fall with injury or currently using an Ambulatory Assistive Device (Walker, Cane, Wheelchair, Crutches, etc.)? No PATIENT GENDER DATA: Female. status: : No status: NO. PATIENT RELEVANT IMPLANT DATA REVIEWED: Not Applicable PATIENT PRESENTS WITH AN IMPLANTABLE OR ATTACHED INFORMATION TECHNOLOGY INSTRUCTOR: No RADIOLOGY DEPARTMENT: General X-ray: Exam(s) Completed: Chest X-Ray PERIPHERAL IV DATA: Not applicable SIGNED BY: RT Hussein(Alice) April 13, 2024 2:06 PM documented in this encounter [facility] 04-13-2024 Note HNO ID: [id number] Author: ELIEL MEDINA RT (R) Service: Radiology Author Type: Technologist Type: Progress Notes Filed: 04/13/2024 14:13 Note Text: Radiology Service Progress Note PATIENT NAME: Yamil Ng DATE OF SERVICE: April 13, 2024 TIME: 2:06 PM PATIENT IDENTITY VERIFICATION COMPLETED USING TWO (2) IDENTIFIERS: Name and Date of confirmed by patient verbally. FALL SCREENING: Has the patient had 2 falls in the last year or 1 fall with injury or currently using an Ambulatory Assistive Device (Walker, Cane, Wheelchair, Crutches, etc.)? No PATIENT GENDER DATA: Female. status: : No status: NO. PATIENT RELEVANT IMPLANT DATA REVIEWED: Not Applicable PATIENT PRESENTS WITH AN IMPLANTABLE OR ATTACHED INFORMATION TECHNOLOGY INSTRUCTOR: No RADIOLOGY DEPARTMENT: General X-ray: Exam(s) Completed: Chest X-Ray PERIPHERAL IV DATA: Not applicable SIGNED BY: Eliel Medina RT(R) April 13, 2024 2:06 PM [facility] 04-13-2024 Note HNO ID: [id number] Author: DHIRAJ WHITT MD Service: ? Author Type: Physician Type: Progress Notes Filed: 04/13/2024 14:30 Note Text: Patient presents with: Chest Congestion: cough, sob x over 1 week HPI: Coughing for over 1 week. Initial fever resolved but cough and shortness of breath are worsening. Positive symptoms: non-productive Cough, Shortness of breath, Chest tightness, Negative symptoms: Sore throat, Sinus pressure, Nasal Congestion, Rhinorrhea, Nausea, Vomiting, Diarrhea, OTC: Lozenges, honey, pineapple Denies history of asthma or pneumonia. PAST MEDICAL HISTORY Diagnosis Date Anemia Complication of anesthesia nausea and vomiting Episode of recurrent major depressive disorder (HCC) 08/28/2018 Family history of epilepsy aunt Hepatic hemangioma 01/20/2024 Hepatitis in viral diseases classified elsewhere(573.1) when she had mono PMH - PAST MEDICAL HISTORY OF Right Sciatica Seizure disorder (HCC) 02/04/2018 MEDICATIONS: Current Outpatient Medications Medication Sig omeprazole (PRILOSEC) 40 mg capsule Take 1 capsule by mouth two times a day. lacosamide (VIMPAT) 150 mg tab Take 1 tablet by mouth two times a day for 180 days. levETIRAcetam (KEPPRA) 1,000 mg tablet Take 1 tablet by mouth two times a day. promethazine (PHENERGAN) 25 mg tablet Take 1 tablet by mouth every 6 hours as needed for nausea/vomiting. (Patient not taking: Reported on 01/23/2024) No current facility-administered medications for this visit. ALLERGIES: ALLERGIES Allergen Reactions Bleach (Sodium Hypo* Rash Lamictal [Lamotrigi* Rash [place] [Trees] Rash, Hives Topiramate Rash Tree And Shrub Poll* Unknown VITALS: BP 100/64 Pulse 76 Temp 36.2 ?C (97.2 ?F) Resp 16 Wt 69.5 kg (153 lb 3.5 oz) LMP 07/17/2023 (Exact Date) SpO2 98% BMI 27.14 kg/m? PHYSICAL EXAM: GEN: mildly ill appearing HEENT: PERRL, EOMI, conjunctiva clear Sinuses: non-tender frontal sinus, non-tender maxillary sinuses Throat: moist mucous membranes, no erythema, no exudate Neck: supple, no thyromegaly, no lymphadenopathy HEART: regular rate and rhythm, no murmurs LUNGS: clear to auscultation, no wheezes or crackles, diminished breath sounds right lower lung, no increased WOB ASSESSMENT/PLAN: 1. Pneumonia of left lower lobe due to infectious organism - ICD9: 486, ICD10: J18.9 (primary diagnosis) 2. Acute cough - ICD9: 786.2, ICD10: R05.1 - XR CHEST 2V FRONTAL/LAT IMPRESSION: Airspace opacity in the left lower lobe suspect for left lower lobe pneumonia - DOXYCYCLINE MONOHYDRATE 100 MG CAPSULE Follow up with worsening cough, worsening shortness of breath, increasing chest pain, or late onset fever. Dhiraj Whitt MD [facility] 04-13-2024 History of Present illness Narrative Patient presents with: Chest Congestion: cough, sob x over 1 week HPI: Coughing for over 1 week. Initial fever resolved but cough and shortness of breath are worsening. Positive symptoms: non-productive Cough, Shortness of breath, Chest tightness, Negative symptoms: Sore throat, Sinus pressure, Nasal Congestion, Rhinorrhea, Nausea, Vomiting, Diarrhea, OTC: Lozenges, honey, pineapple Denies history of asthma or pneumonia. PAST MEDICAL HISTORY Diagnosis Date Anemia Complication of anesthesia nausea and vomiting Episode of recurrent major depressive disorder (HCC) 08/28/2018 Family history of epilepsy aunt Hepatic hemangioma 01/20/2024 Hepatitis in viral diseases classified elsewhere(573.1) when she had mono PMH - PAST MEDICAL HISTORY OF Right Sciatica Seizure disorder (HCC) 02/04/2018 MEDICATIONS: Current Outpatient Medications Medication Sig omeprazole (PRILOSEC) 40 mg capsule Take 1 capsule by mouth two times a day. lacosamide (VIMPAT) 150 mg tab Take 1 tablet by mouth two times a day for 180 days. levETIRAcetam (KEPPRA) 1,000 mg tablet Take 1 tablet by mouth two times a day. promethazine (PHENERGAN) 25 mg tablet Take 1 tablet by mouth every 6 hours as needed for nausea/vomiting. (Patient not taking: Reported on 01/23/2024) No current facility-administered medications for this visit. ALLERGIES: ALLERGIES Allergen Reactions Bleach (Sodium Hypo* Rash Lamictal [Lamotrigi* Rash [place] [Trees] Rash, Hives Topiramate Rash Tree And Shrub Poll* Unknown VITALS: BP 100/64 Pulse 76 Temp 36.2 C (97.2 F) Resp 16 Wt 69.5 kg (153 lb 3.5 oz) LMP 07/17/2023 (Exact Date) SpO2 98% BMI 27.14 kg/m PHYSICAL EXAM: GEN: mildly ill appearing HEENT: PERRL, EOMI, conjunctiva clear Sinuses: non-tender frontal sinus, non-tender maxillary sinuses Throat: moist mucous membranes, no erythema, no exudate Neck: supple, no thyromegaly, no lymphadenopathy HEART: regular rate and rhythm, no murmurs LUNGS: clear to auscultation, no wheezes or crackles, diminished breath sounds right lower lung, no increased WOB ASSESSMENT/PLAN: 1. Pneumonia of left lower lobe due to infectious organism - ICD9: 486, ICD10: J18.9 (primary diagnosis) 2. Acute cough - ICD9: 786.2, ICD10: R05.1 - XR CHEST 2V FRONTAL/LAT IMPRESSION: Airspace opacity in the left lower lobe suspect for left lower lobe pneumonia - DOXYCYCLINE MONOHYDRATE 100 MG CAPSULE Follow up with worsening cough, worsening shortness of breath, increasing chest pain, or late onset fever. Dhiraj Whitt MD documented in this encounter [facility] 03-04-2024 History of Present illness Narrative 03/04/2024 Patient presents with: Refill Request SUBJECTIVE: This is a 38 year old that is here today for Above Complaints. Needs refill for Omeprazole. Increased at last visit for epigastric pain and nausea. Some days helps other days has some breakthroughs. Has consult to general surgery for EGD which she reports she needs to reschedule. Denies weight loss, difficulty swallowing, vomiting, melana, hematochezia or hematemesis PAST MEDICAL HISTORY No date: Anemia No date: Complication of anesthesia Comment: nausea and vomiting 08/28/2018: Episode of recurrent major depressive disorder (HCC) No date: Family history of epilepsy Comment: aunt 01/20/2024: Hepatic hemangioma No date: Hepatitis in viral diseases classified elsewhere(573.1) Comment: when she had mono No date: PMH - PAST MEDICAL HISTORY OF Comment: Right Sciatica 02/04/2018: Seizure disorder (HCC) ALLERGIES Bleach (Sodium Hypochlorite), Lamictal [Lamotrigine], [place] [Trees], Topiramate, and Tree And Shrub Pollen MEDICATIONS Current Outpatient Medications Medication Sig omeprazole (PRILOSEC) 40 mg capsule Take 1 capsule by mouth two times a day. lacosamide (VIMPAT) 150 mg tab Take 1 tablet by mouth two times a day for 180 days. levETIRAcetam (KEPPRA) 1,000 mg tablet Take 1 tablet by mouth two times a day. promethazine (PHENERGAN) 25 mg tablet Take 1 tablet by mouth every 6 hours as needed for nausea/vomiting. (Patient not taking: Reported on 01/23/2024) No current facility-administered medications for this visit. Medications and allergies reviewed by this provider. SOCIAL HISTORY Social History Tobacco Use Smoking status: Never Smokeless tobacco: Never Vaping Use Vaping status: Never Used Substance Use Topics Alcohol use: Yes Comment: occasional Drug use: No REVIEW OF SYSTEMS All other reviewed and negative other than HPI. OBJECTIVE: BP 102/64 Pulse 70 Resp 18 Wt 69.5 kg (153 lb 3.5 oz) LMP 07/17/2023 (Exact Date) SpO2 96% BMI 27.14 kg/m . Vital signs reviewed by this provider. APPEARANCE Well appearing, alert, in no acute distress, well-hydrated, well nourished. EYES conjunctiva and sclera normal. HEART RRR with normal S1 and S2, no murmurs, no gallops, no JVD appreciated LUNG clear to auscultation. No wheezes, rhonchi or rales ABDOMEN bowel sounds normoactive, no bruits, soft, non-tender, non-distended SKIN Skin color, texture, turgor normal, no suspicious rashes or lesions to exposed skin Hepatitis C Screening Never done Hepatitis B Vaccine(1 of 3 - 19+ 3-dose series) Never done Cervical Cancer Screening due on 11/24/2023 Covid-19 Vaccine(1 - 2022-24 season) Never done Influenza Vaccine(1) due on 02/23/2024 Mammogram Screening due on 11/05/2024 DTaP,Tdap,Td Vaccine(3 - Td or Tdap) due on 07/30/2026 HIV Screening Completed HPV Vaccine Aged Out ASSESSMENT/PLAN: 1. Epigastric pain - ICD9: 789.06, ICD10: R10.13 - stable - reschedule appointment with general surgery - Discussed lifestyle modifications including limiting caffeine, no meals three hours before sleep, and head of bed elevation - OMEPRAZOLE 40 MG CAPSULE,DELAYED RELEASE - follow-up for routine in June as scheduled Cristy Dunbar APRN.TRACK WATCHMAN Prescription instructions reviewed with patient as applicable. Patient advised if symptoms do not improve or if symptoms worsen sooner, to contact their primary care physician. Potential red flag symptoms discussed with the patient. Reviewed appropriate action plan to take if red flag symptoms occur. Patient agreeable to treatment plan. Medical Decision Making: Problems: Low: Stable chronic illness Risk: Moderate: Drug management Medical Decision Making Level: 3 - Low documented in this encounter [facility] 02-27-2024 History of Present illness Narrative Per Dr. Gonzalez, Yamil has been provided with a reaction brace, R knee. Patient instructed/educated in application, wear, and care. All questions answered and patient able to verbalize understanding. Patient signed Luz Maria PPA. Brace billed to Luz Maria. Julieta Manning RN Images from the original note were not included. Follow Up Visit Chief Complaint Yamil Ng is a 38 year old female who presents today for follow up office visit. Patient presents with: Right Knee - Follow Up, Results - Mri History of Present Illness PAIN EVALUATION 02/27/2024 1318 Pain Level: 4 Pain Location: Knee-Right Description: Sharp;Shooting Duration Amount of Time: 6 Duration Units: Months Frequency: Continuous Comments: Nothing helps HPI: Yamil Ng is a 38 year old female for a follow up visit for ongoing right knee pain. Pain history is noted as above. MRI was completed on 02/07/24. She did not have scope done of abdomen. Reports she had to cancel GI consult due to family issue. Is there any overall improvement in your condition? No Any new injury, since being seen last: No REVIEW OF SYMPTOMS: Patient did not have, and does not currently have, any weight loss, malaise, fever, chills, headache, chest pain, chest pressure, palpitations, cough, shortness of breath, orthopnea, paroxsymal nocturnal dyspnea, nausea, vomiting, diarrhea, constipation, melena, hematochezia, urinary difficulties, prolonged bleeding, easily bruising, heat or cold intolerance, new onset joint pain or swelling, new onset extremity weakness or numbness, new onset auditory or visual disturbances, lightheadedness, dizziness, partial loss of consciousness or full loss of consciousness. Current Outpatient Medications Medication Sig omeprazole (PRILOSEC) 40 mg capsule Take 1 capsule by mouth two times a day. lacosamide (VIMPAT) 150 mg tab Take 1 tablet by mouth two times a day for 180 days. levETIRAcetam (KEPPRA) 1,000 mg tablet Take 1 tablet by mouth two times a day. promethazine (PHENERGAN) 25 mg tablet Take 1 tablet by mouth every 6 hours as needed for nausea/vomiting. (Patient not taking: Reported on 01/23/2024) No current facility-administered medications for this visit. Physical Exam Vitals: LMP 07/17/2023 Psych: Pleasant, good affect and mood General Appearance: Well appearing, alert, in no acute distress, well-hydrated, well nourished.. Skin: Skin color, texture, turgor normal, no suspicious rashes or lesions. Peripheral Pulses: Normal. Neurologic: Gait normal. Reflexes normal and symmetric. Sensation grossly intact.. Lymph Nodes: No cervical lymphadenopathy, No supraclavicular lymphadenopathy, No axillary lymphadenopathy., and No inguinal lymphadenopathy.. Respiratory: No recent pulmonary infection, hemoptysis, chronic cough, or shortness of breath at rest Rheumatologic: Joint deformities: Last XR Knee - Impression Only XR KNEE LIMITED 2V AP/LAT RIGHT Exam End: 02/08/2024 4:36 PM (Final result) Impression: IMPRESSION: Within normal limits. Binitrotoluene Operator: GILDARDO Transcribe Date/Time: Feb 08 2024 4:46P ... Right Knee Exam Right knee exam is normal. Muscle Strength The patient has normal right knee strength. Tenderness The patient is experiencing no tenderness. Range of Motion Extension: normal Flexion: normal Tests Darlyn: Anterior - negative Posterior - negative Drawer: Anterior - negative Posterior - negative Other Erythema: absent Sensation: normal Pulse: present Swelling: none Left Knee Exam Left knee exam is normal. Muscle Strength The patient has normal left knee strength. Tenderness The patient is experiencing no tenderness. Range of Motion Extension: normal Flexion: normal Tests Darlyn: Anterior - negative Posterior - negative Drawer: Anterior - negative Posterior - negative Other Erythema: absent Sensation: normal Pulse: present Swelling: none Comments: Neg homans bilaterally Assessment and Plan Radiographs: Last MRI Knee - Impression Only MRI KNEE WO IVCON RIGHT Exam End: 02/07/2024 1:52 PM (Final result) Impression: IMPRESSION: 1. Faint, equivocal undersurface tear at the medial meniscal body, not significantly changed from 3 years ago. 2. Semimembranosus/tibial collateral ligament bursitis. 3. Mild chondrosis at the medial compartment and patella. ... Impression: Encounter Diagnosis ICD-10-CM 1. Acute pain of right knee M25.561 2. 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 We discussed strategies for decreasing pain and improving strength, stability and motion. Patient's questions were answered in detailed. Patient verbalizes understanding and agrees with the treatment plan as discussed. Continue nonop treatment Work on strengthening Non surgical at this time Patient aware and in agreement of plan. All questions answered. Reaction brace today Follow up in 3 omnths for reassessment as still having other medical concerns Dennise Gonzalez D.O. M.P.H. documented in this encounter [facility] 02-14-2024 Telephone encounter Note Rx sent. [facility] 02-14-2024 Miscellaneous Notes Rx sent. Please send script to [facility]. Pt informed. Jade Mauro MA This rx is $18.78 for 3 month supply at [facility] on goodrx. $16.55 at [facility]. Would they like it to be sent to [facility] instead? Patient reports pharmacy tells her she does not have a script at the pharmacy for omeprazole. This nurse phoned [facility] and spoke with pharmacist who states they did receive the rx for omeprazole 40 mg twice daily, but insurance wants a PA. Pharmacist will fax PA to pcp office. documented in this encounter [facility] 02-14-2024 Telephone encounter Note Please send script to [facility]. Pt informed. Jade Mauro MA [facility] 02-14-2024 Telephone encounter Note This rx is $18.78 for 3 month supply at [facility] on goodrx. $16.55 at [facility]. Would they like it to be sent to [facility] instead? [facility] 02-14-2024 Telephone encounter Note Patient reports pharmacy tells her she does not have a script at the pharmacy for omeprazole. This nurse phoned [facility] and spoke with pharmacist who states they did receive the rx for omeprazole 40 mg twice daily, but insurance wants a PA. Pharmacist will fax PA to pcp office. [facility] 02-07-2024 Miscellaneous Notes Radiology Service Progress Note PATIENT NAME: Yamil Ng DATE OF SERVICE: February 07, 2024 TIME: 1:28 PM PATIENT IDENTITY VERIFICATION COMPLETED USING TWO (2) IDENTIFIERS: Name and Date of confirmed by patient verbally. FALL SCREENING: Has the patient had 2 falls in the last year or 1 fall with injury or currently using an Ambulatory Assistive Device (Walker, Cane, Wheelchair, Crutches, etc.)? No PATIENT GENDER DATA: Female. status: : No status: NO. PATIENT RELEVANT IMPLANT DATA REVIEWED: Yes PATIENT PRESENTS WITH AN IMPLANTABLE OR ATTACHED INFORMATION TECHNOLOGY INSTRUCTOR: No RADIOLOGY DEPARTMENT: MR; Exam(s) Completed: Lower MSK: Knee, right PERIPHERAL IV DATA: Not applicable SIGNED BY: Cheri Lombardo/[facility] February 07, 2024 1:28 PM documented in this encounter [facility] 02-07-2024 Progress note Formatting of t his note might be different from the original. Radiology Service Progress Note PATIENT NAME: Yamil Ng DATE OF SERVICE: February 07, 2024 TIME: 1:28 PM PATIENT IDENTITY VERIFICATION COMPLETED USING TWO (2) IDENTIFIERS: Name and Date of confirmed by patient verbally. FALL SCREENING: Has the patient had 2 falls in the last year or 1 fall with injury or currently using an Ambulatory Assistive Device (Walker, Cane, Wheelchair, Crutches, etc.)? No PATIENT GENDER DATA: Female. status: : No status: NO. PATIENT RELEVANT IMPLANT DATA REVIEWED: Yes PATIENT PRESENTS WITH AN IMPLANTABLE OR ATTACHED INFORMATION TECHNOLOGY INSTRUCTOR: No RADIOLOGY DEPARTMENT: MR; Exam(s) Completed: Lower MSK: Knee, right PERIPHERAL IV DATA: Not applicable SIGNED BY: Cheri Lombardo/[facility] February 07, 2024 1:28 PM [facility] 02-07-2024 History of Present illness Narrative [facility] Patient Name: Yamil Ng Date of : 1985 ESTABLISHED EPILEPSY CLINIC NOTE 02/07/2024 1:00 PM Reason for Visit: Seizures Clinical Summary: Ms. Ng is a 38 year old right-handed female seen in [facility]psy [facility]. We had a visit using: [employer] I received consent from the patient to perform the visit using this platform. I have communicated my name and active licensure. The patient's identity and physical location were verified at the time of this visit. Either the patient or their legal reimbursement representative has been informed of the risks and benefit of - and alternatives to - treatment through a remote evaluation and consents to proceed with the evaluation remotely. There is no one accompanying the patient during today's visit. Classification Summary HISTORY OF PRESENT ILLNESS Handedness: right-handed Age of onset: Seizure History and Evolution 32 year old woman here for seizures. First seizure event was April 2017. She had seizure out of sleep. She was evaluated in ER at that time. She was recommended testing but did not complete. She was not initiated on medicine at that time and did okay on November of this year when she had a second seizure event at that time out of sleep. She was asleep and recalls no warning or other symptoms. Her accompanies her; first seizure he woke up to her having seizure, generalized shaking. Second seizure was awake; she made a gurgling vocalization and then had a generalized seizure. She some times experience ricky vu. Not regularly, no other aura. No history of dialeptic, automotor or other seizure types. noted afterwards confused tired and remained confused for a period of time. She was started on keppra after the second episode and was treated at 500 mg bid. No prior history of seizures or child. She reported no seizures since being on the medicine. Possible lateralizing signs by history: None and Early Development: normal Interval Seizure History Patient presents for follow up regarding seizures. She is a patient of Dr. Panda Marinelli, last seen by Abbi Way CNP on 05/22/2023. At that visit, she reported seizure from 3 weeks prior so plan to start LCM 100 mg BID, in addition to LEV 1,000 mg BID. She called the office reporting breakthrough seizure 01/18/2024 so plan to increase LCM to 150 mg BID. Today, she denies any further seizures since 01/18/2024. Reports that seizures are exclusively in sleep, on 01/17, woke up feeling sore, tired and out of it. Reports she has never experienced TB or UI. Reports that ex previously witnessed convulsions in sleep. Now has boyfriend but reports he is a heavy sleeper and has not witnessed her seizures. As far as triggers, denies any missed doses though does admit to chronic poor sleep. States sleep is always broken, gets around 4-5 hours per night. Admits to snoring, had PSG in 2019 with primary snoring but no oxygen desaturations. Notes restless leg syndrome. Recently had iron/TIBC and ferritin checked and all in normal ranges. States mood is okay. 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 Has 4 children (ages 21,18,15 and 7). Had hysterectomy. Intermittently drives. Total # of Current Anti-seizure Medications: Side Effects to Current Anti-seizure Medications: Seizure Frequency at First Visit: 0 per 6 months Longest Seizure-free Interval: 0 years Number of seizure types: 1 Status Epilepticus or clusters: Yes Postictal Agitation: No Seizure-related driving accidents: No Driving: Yes Lives Alone: No CURRENT OUTPATIENT ANTISEIZURE MEDICATIONS (as of the start of the encounter) lacosamide (VIMPAT) 150 mg tab Take 1 tablet by mouth two times a day for 180 days. levETIRAcetam (KEPPRA) 1,000 mg tablet Take 1 tablet by mouth two times a day. topiramate (TOPAMAX) 25 mg tablet (Discontinued) Take by mouth. One tablet twice daily for a week; then two tablets twice daily thereafter. Prior Anti-seizure Therapies: Trial Adequacy: Max Daily Dose Achieved: Side Effects: Effectiveness: Comments: Lamotrigine Levetiracetam Comorbidities: Episode Description: Patient Entered Data: EPILEPSY SCORE 02/02/2024 2:19 PM 02/02/2024 2:18 PM 02/02/2024 2:18 PM First answer obtained - 07/21/2019 9:34 PM PHQ-9 SCORE - - - - JEANIE 2 SCORE 1 [Negative Anxiety Screen] - - - JEANIE 7 SCORE - - - - QOLIE-10 SCORE (0=worst; 100=best QoL - higher scores represent better function) - - - LSSS SCORE (0- no seizures 100- most severe possible seizures) - - - - C-SSRS SCREEN - - - - On average, how many hours of sleep do you get in a 24-hour period? - - - PROMIS Sleep Disturbance T-SCORE - - - 68 [moderate] Have you been diagnosed with Sleep Apnea? - Yes - - Seizure risk factors: Brain Tumor No VP STRATEGY Infections No Developmental Delay No Family history of seizures Yes Febrile Seizure No Complications No Stroke No Traumatic Brain Injury No Previous Epilepsy Evaluations 2918 IMPRESSION: Normal routine MRI brain without and with contrast. Classification Normal (Awake, Sleep, 10-20 Scalp Electrodes, Anterior temporal electrodes) Impression This EEG is within normal limits. No epileptiform discharges or EEG seizures were seen during this recording. Other caregivers: Primary Care Provider: Adrianne Ignacio MD Current Outpatient Medications Medication Sig lacosamide (VIMPAT) 150 mg tab Take 1 tablet by mouth two times a day for 180 days. omeprazole (PRILOSEC) 40 mg capsule Take 1 capsule by mouth two times a day. promethazine (PHENERGAN) 25 mg tablet Take 1 tablet by mouth every 6 hours as needed for nausea/vomiting. (Patient not taking: Reported on 01/23/2024) levETIRAcetam (KEPPRA) 1,000 mg tablet Take 1 tablet by mouth two times a day. No current facility-administered medications for this visit. ALLERGIES Allergen Reactions Bleach (Sodium Hypo* Rash Lamictal [Lamotrigi* Rash [place] Trees [Trees] Rash, Hives Topiramate Rash Tree And Shrub Poll* Unknown PAST MEDICAL HISTORY No date: Anemia No date: Complication of anesthesia Comment: nausea and vomiting 08/28/2018: Episode of recurrent major depressive disorder (HCC) No date: Family history of epilepsy Comment: aunt 01/20/2024: Hepatic hemangioma No date: Hepatitis in viral diseases classified elsewhere(573.1) Comment: when she had mono No date: PMH - PAST MEDICAL HISTORY OF Comment: Right Sciatica 02/04/2018: Seizure disorder (HCC) PAST SURGICAL HISTORY No date: DELIVERY ONLY Comment: , low cervical x4 10/14/2016: DELIVERY ONLY No date: EXCISION GANGLION WRIST DORSAL/VOLAR PRIMARY; Right 02/28/2023: HYSTEROSCOPY ENDOMETRIAL ABLATION; N/A No date: KNEE SURGERY HX; Right Comment: shaved patella and removed fat pad 09/04/2023: LAP HYSTERECTOMY FOR UTERUS 250G OR LESS 10/14/2016: LIG/TRNSXJ FLP TUBE ABDL/VAG APPR UNI/BI; Bilateral 09/22/2023: VAGINAL CUFF REPAIR Comment: exam under anesthesia, pelvic irrigation and insertion of intraabdominal drain FAMILY HISTORY Problem Relation Age of Onset Hypertension Father Diabetes Father Hyperlipidemia Father Cataract Father other (FIBROMYALGIA) Sister Pancreatitis Sister Cancer Maternal Grandmother Breast Cancer Paternal Grandmother Heart Paternal Grandmother Stroke Paternal Grandfather Diabetes Maternal Aunt Anesthesia Problems No Family History Clotting Disorder No Family History Malig Hyperthermia No Family History SOCIAL HISTORY: -Lives in [place], [place] -Patient lives alone? No -Vocation: -Education: -Cigarette, alcohol, substance use: -Functional status: -Patient driving? Yes Review of Systems VITAL SIGNS: LMP 07/17/2023 (Exact Date) General Examination: General Exam Neurological Exam IMPRESSION: The patient's history is suggestive of epilepsy, possibly focal, started in 2016. She remains on LEV IR 500/750 mg daily, no seizures since JACI, last reported seizure in February 2018. Epilepsy Classification: focal epilepsy Seizure Classification: Generalized Motor Seizure Etiology: Other unkown Related Condition(s): medication side effect Interval Impression: Patient w/ breakthrough seizure 01/18/2024 at which time she called the office and LCM was increased. Reports chronic poor sleep. PLAN: - continue LCM 150 mg BID and LEV 1,000 mg BID - plans to have LEV and LCM level checked in 1-2 weeks (to reflect increased dose of LCM), aware of trough draw - advised she can try taking Melatonin for sleep - advised on no driving - follow up in 6 months, earlier as needed Education The following issues were discussed with the patient on this visit and written instructions provided as below- Seizure precautions and safety, seizure first aide, when to seek emergency care. Counseling was provided to the patient that missed medications, addition of some new medications, use of alcohol or other substances, and sleep deprivation can lower the seizure threshold. Patient was advised to not drive until released by a physician. I discussed the risk of depression and psychological comorbidities in patients with epilepsy and when to seek help as well as the black box warning of all antiepileptic medications which can increase risk for suicidality. Women's health issues were addressed this visit- Patient was advised to take folic acid daily. Importance of contraception and potential teratogenicity of antiepileptic medications was discussed. Interaction of her medication with OCP was addressed. Further information regarding and contraception for women with epilepsy can be found at the [facility]. Patient was given my clinic contact information. Medical Management Continue current medications. I discussed the risks, benefits and alternatives of the medical plan with the patient. Questions were answered. The patient agreed with the plan as discussed. FOLLOW-UP: Return in about 6 months (around 08/09/2024). I spent a total of 25 minutes on the date of the service which included: preparing to see the patient [id number] patient care completing clinical documentation obtaining and/or reviewing separately obtained history counseling and educating the patient/family/caregiver ordering medications, tests, or procedures care coordination (not separately reported) Rachelle Beavers APRN.TRACK WATCHMAN cc: Primary Care Physician: Adrianne Ignacio MD [id number] [facility] [id number] Referring: Patient: Ms. Yamil Ng [address] [facility] [address] documented in this encounter [facility] 01-23-2024 History of Present illness Narrative Images from the original note were not included. Follow Up Visit Chief Complaint Yamil Ng is a 38 year old female who presents today for follow up office visit. Patient presents with: Right Knee - Established Patient, Follow Up History of Present Illness PAIN EVALUATION 01/16/2024 1417 Pain Level: 4 Pain Location: Knee-Right Description: Aching;Sharp;Shooting Duration Units: Months Frequency: Continuous HPI: Yamil Ng is a 38 year old female for a follow up visit 4 1/2 month post visit right knee pain . Pain history is noted as above. Cont knee pain and insbilaity depsite cont PT, bracing, etc. Is there any overall improvement in your condition? Yes, some, but not a whole lot. Any new injury, since being seen last: No REVIEW OF SYMPTOMS: Patient did not have, and does not currently have, any weight loss, malaise, fever, chills, headache, chest pain, chest pressure, palpitations, cough, shortness of breath, orthopnea, paroxsymal nocturnal dyspnea, nausea, vomiting, diarrhea, constipation, melena, hematochezia, urinary difficulties, prolonged bleeding, easily bruising, heat or cold intolerance, new onset joint pain or swelling, new onset extremity weakness or numbness, new onset auditory or visual disturbances, lightheadedness, dizziness, partial loss of consciousness or full loss of consciousness. Current Outpatient Medications Medication Sig lacosamide (VIMPAT) 150 mg tab Take 1 tablet by mouth two times a day for 180 days. omeprazole (PRILOSEC) 40 mg capsule Take 1 capsule by mouth two times a day. levETIRAcetam (KEPPRA) 1,000 mg tablet Take 1 tablet by mouth two times a day. promethazine (PHENERGAN) 25 mg tablet Take 1 tablet by mouth every 6 hours as needed for nausea/vomiting. (Patient not taking: Reported on 01/23/2024) No current facility-administered medications for this visit. Physical Exam Vitals: LMP 07/17/2023 Psych: Pleasant, good affect and mood General Appearance: Well appearing, alert, in no acute distress, well-hydrated, well nourished.. Skin: Skin color, texture, turgor normal, no suspicious rashes or lesions. Peripheral Pulses: Normal. Neurologic: Gait normal. Reflexes normal and symmetric. Sensation grossly intact.. Lymph Nodes: No cervical lymphadenopathy, No supraclavicular lymphadenopathy, No axillary lymphadenopathy., and No inguinal lymphadenopathy.. Respiratory: No recent pulmonary infection, hemoptysis, chronic cough, or shortness of breath at rest Rheumatologic: Joint deformities: right knee pain Right Knee Exam Tenderness The patient is experiencing tenderness in the medial joint line and medial retinaculum. Range of Motion Extension: normal Flexion: normal Tests Darlyn: Anterior - negative Posterior - negative Drawer: Anterior - negative Posterior - negative Other Erythema: absent Sensation: normal Pulse: present Swelling: none Comments: Limited exam d/t recent hysterectomy Left Knee Exam Left knee exam is normal. Muscle Strength The patient has normal left knee strength. Tenderness The patient is experiencing no tenderness. Range of Motion Extension: normal Flexion: normal Tests Darlyn: Anterior - negative Posterior - negative Drawer: Anterior - negative Posterior - negative Other Erythema: absent Sensation: normal Pulse: present Swelling: none Comments: Neg homans bilaterally Assessment and Plan Radiographs: Last XR Knee - Impression Only XR KNEE GENERAL 4V AP BOTH/PA BOTH/LAT/MERC RIGHT Exam End: 10/11/2022 2:10 PM (Final result) Impression: IMPRESSION: Findings are suggestive of mild degenerative changes in the right knee. Binitrotoluene Operator: GILDARDO Transcribe Date/Time: Oct 11 2022 2:15P Dictated by : BENNIE NORIEGA MD... Impression: Encounter Diagnosis ICD-10-CM 1. Acute pain of right knee M25.561 MRI KNEE WO IVCON RIGHT 2. 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 Tear of medial meniscus of right knee, current, unspecified tear type, initial encounter S83.241A MRI KNEE WO IVCON RIGHT Today, in detail, through a thorough evaluation, we discussed possible etiologies of pain and our plans for further diagnostic and therapeutic interventions. We discussed strategies for decreasing pain and improving strength, stability and motion. Patient's questions were answered in detailed. Patient verbalizes understanding and agrees with the treatment plan as discussed. Mri right knee as having cont pain after surgery despite PT, bracing, meds, etc Having scope done, will defer injection until gi workup complete Patient aware and in agreement of plan. All questions answered. Dennise Gonzalez D.O. M.P.HSarabjit documented in this encounter [facility] 01-21-2024 Note Addended by: ELLA JACOBO on: 01/21/2024 02:42 PM Modules accepted: Orders [facility] 01-21-2024 Telephone encounter Note New orders placed Ella ANA Jacobo [facility] 01-21-2024 Miscellaneous Notes Addended by: ELLA JACOBO on: 01/21/2024 02:42 PM Modules accepted: Orders New orders placed Ella ANA Jacobo Call to patient, she was in agreement with med changes. She already got the labs drawn this afternoon without talking to us and it had only been 5-6 hours since her last dose of meds. I advised her we would place new orders and to wait until 1-2 weeks after her goal dose before checking the labs again. Also discussed trough instructions and she verbalized understanding. Georgina Archibald RN Call to pt no answer msg left. Georgina Archibald RN Patient returned call to the office, please return call at (p) [phone]. Call was made to the patient, no answer. Message was left requesting a return call. Dang Martini RN Would recommend to increase LCM to 150 mg BID. Week 1: 100/150 Week 2: 150 BID Then check level prior to visit. If she is tolerating LCM they can discuss further increases and possible wean of LEV at next visit. The following approved medication requests have been transmitted electronically. Requested Prescriptions Signed Prescriptions Disp Refills lacosamide (VIMPAT) 150 mg tab 180 tablet 1 Sig: Take 1 tablet by mouth two times a day for 180 days. Authorizing Provider: IMANI ESTEVES APRN.TRACK WATCHMAN 05/22/23 JACI ASSESSMENT: Yamil Ng is a 37 year old female with an evaluation suggestive for epilepsy with recent concern for breakthrough seizure on Keppra monotherapy. Still reporting issues with short term memory. Recent Long EEG & MRI unremarkable. Pt reporting significant side effects to Keppra (irritability & nausea) and would like to trial a new medication to potentially replace it. Discussed options of ZNS & LCM, but due to hx of kidney stones opted to trial LCM. PLAN: - Medical Therapy: Start LCM 50 mg Bid for 1 week, then increase to 1000 mg BID - Continue LEV 100 mg BID for now- will plan to decrease/wean if she toerlated LCM well. - Seizure precautions including no driving - Follow up: 6 month Last Visit: 05/22 Next Visit: 02/06 Date and Time of seizure: 01/17 while sleeping. She does not remember anything. Woke up in pain, sore and confused. Witnessed: no Aura: no Type of seizure: unknown Last Seizure: 6/7 months Duration: unknown LOC: unknown CHRISTAL: unknown TB: no UI: no Injury: no Rescue Medication used: no ASM: LCM 100/100 LEV 1000/1000 Triggers (recent illness, medication missed/changes, sleep issues, substance use): unknown Postictal Symptoms and Duration: tired Back to Base Line: yes Dang Zamorano, DANYELLE 05/22/23 JACI ASSESSMENT: Yamil Ng is a 37 year old female with an evaluation suggestive for epilepsy with recent concern for breakthrough seizure on Keppra monotherapy. Still reporting issues with short term memory. Recent Long EEG & MRI unremarkable. Pt reporting significant side effects to Keppra (irritability & nausea) and would like to trial a new medication to potentially replace it. Discussed options of ZNS & LCM, but due to hx of kidney stones opted to trial LCM. PLAN: - Medical Therapy: Start LCM 50 mg Bid for 1 week, then increase to 1000 mg BID - Continue LEV 100 mg BID for now- will plan to decrease/wean if she toerlated LCM well. - Seizure precautions including no driving - Follow up: 6 month .Call was made to the patient, no answer. Message was left requesting a return call. Dang Martini RN Seizure activity: Name of Caller : Yamil Ludy Hernandez Relationship to patient: Self Contact phone number: [phone] Date of seizure: 01/18/24 Duration: unknown Back to Baseline (Yes/No): Yes Emergency treatment needed (Yes/No): No Patient of Dr. Marinelli documented in this encounter [facility] 01-21-2024 Telephone encounter Note Call to patient, she was in agreement with med changes. She already got the labs drawn this afternoon without talking to us and it had only been 5-6 hours since her last dose of meds. I advised her we would place new orders and to wait until 1-2 weeks after her goal dose before checking the labs again. Also discussed trough instructions and she verbalized understanding. Georgina Archibald RN [facility] 01-21-2024 Telephone encounter Note Call to pt no answer msg left. Georgina Archibald RN [facility] 01-20-2024 Telephone encounter Note Patient returned call to the office, please return call at (P) [phone]. [facility] 01-20-2024 Telephone encounter Note Call was made to the patient, no answer. Message was left requesting a return call. Dang Martini RN [facility] 01-20-2024 Telephone encounter Note Would recommend to increase LCM to 150 mg BID. Week 1: 100/150 Week 2: 150 BID Then check level prior to visit. If she is tolerating LCM they can discuss further increases and possible wean of LEV at next visit. The following approved medication requests have been transmitted electronically. Requested Prescriptions Signed Prescriptions Disp Refills lacosamide (VIMPAT) 150 mg tab 180 tablet 1 Sig: Take 1 tablet by mouth two times a day for 180 days. Authorizing Provider: IMANI ESTEVES APRN.TRACK WATCHMAN T [facility] 01-20-2024 Telephone encounter Note 05/22/23 JACI ASSESSMENT: Yamil Ng is a 37 year old female with an evaluation suggestive for epilepsy with recent concern for breakthrough seizure on Keppra monotherapy. Still reporting issues with short term memory. Recent Long EEG & MRI unremarkable. Pt reporting significant side effects to Keppra (irritability & nausea) and would like to trial a new medication to potentially replace it. Discussed options of ZNS & LCM, but due to hx of kidney stones opted to trial LCM. PLAN: - Medical Therapy: Start LCM 50 mg Bid for 1 week, then increase to 1000 mg BID - Continue LEV 100 mg BID for now- will plan to decrease/wean if she toerlated LCM well. - Seizure precautions including no driving - Follow up: 6 month Last Visit: 05/22 Next Visit: 02/06 Date and Time of seizure: 01/17 while sleeping. She does not remember anything. Woke up in pain, sore and confused. Witnessed: no Aura: no Type of seizure: unknown Last Seizure: 6/7 months Duration: unknown LOC: unknown CHRISTAL: unknown TB: no UI: no Injury: no Rescue Medication used: no ASM: LCM 100/100 LEV 1000/1000 Triggers (recent illness, medication missed/changes, sleep issues, substance use): unknown Postictal Symptoms and Duration: tired Back to Base [place]: yes Dang Zamorano RN [facility] 01-20-2024 Telephone encounter Note 05/22/23 JACI ASSESSMENT: Yamil Ng is a 37 year old female with an evaluation suggestive for epilepsy with recent concern for breakthrough seizure on Keppra monotherapy. Still reporting issues with short term memory. Recent Long EEG & MRI unremarkable. Pt reporting significant side effects to Keppra (irritability & nausea) and would like to trial a new medication to potentially replace it. Discussed options of ZNS & LCM, but due to hx of kidney stones opted to trial LCM. PLAN: - Medical Therapy: Start LCM 50 mg Bid for 1 week, then increase to 1000 mg BID - Continue LEV 100 mg BID for now- will plan to decrease/wean if she toerlated LCM well. - Seizure precautions including no driving - Follow up: 6 month .Call was made to the patient, no answer. Message was left requesting a return call. Dang Martini RN [facility] 01-20-2024 Telephone encounter Note Pt notified of results via Sendmeboxhart. Flor Griggs Ma T [facility] 01-20-2024 Miscellaneous Notes Pt notified of results via Sendmeboxhart. Flor Griggs Ma ----- Message from Adrianne Ignacio MD sent at 01/20/2024 8:18 AM EDT ----- Patient's MRI of the liver shows benign hemangiomas. No further workup or monitoring needed for this. documented in this encounter [facility] 01-20-2024 Telephone encounter Note ----- Message from Adrianne Ignacio MD sent at 01/20/2024 8:18 AM EDT ----- Patient's MRI of the liver shows benign hemangiomas. No further workup or monitoring needed for this. [facility] 01-20-2024 Telephone encounter Note Seizure activity: Name of Caller : Yamil Ng Relationship to patient: Self Contact phone number: [phone] Date of seizure: 01/18/24 Duration: unknown Back to Baseline (Yes/No): Yes Emergency treatment needed (Yes/No): No Patient of Dr. Marinelli [facility] 01-17-2024 History of Present illness Narrative Radiology Service Progress Note DATE OF SERVICE: January 17, 2024 TIME: 12:47 PM PATIENT WEIGHT: 155LBS PATIENT IDENTITY VERIFICATION COMPLETED USING TWO (2) STANDARD IDENTIFIERS: Name and Date of confirmed by patient verbally. FALL SCREENING: Has the patient had 2 falls in the last year or 1 fall with injury or currently using an Ambulatory Assistive Device (Walker, Cane, Wheelchair, Crutches, etc.)? No PATIENT GENDER DATA: Female. status: : No status: NO. ALLERGIES: Reviewed and unchanged CONTRAST ALLERGY: No EXAM: MRI - CONTRAST TYPE: GROUP II IV SITE: Ambulatory: A peripheral IV was started in the Right antecubital site with a Angio cath: 22 gauge. IV SITE APPEARANCE: Clean,Dry and Intact SIGNATURE: Aniket Graff RN PATIENT NAME: Yamil Ng DATE: January 17, 2024 TIME: 12:47 PM Radiology Service Progress Note PATIENT NAME: Yamil Ng DATE OF SERVICE: January 17, 2024 TIME: 1:01 PM PATIENT IDENTITY VERIFICATION COMPLETED USING TWO (2) IDENTIFIERS: Name and Date of confirmed by patient verbally. FALL SCREENING: Has the patient had 2 falls in the last year or 1 fall with injury or currently using an Ambulatory Assistive Device (Walker, Cane, Wheelchair, Crutches, etc.)? No PATIENT GENDER DATA: Female. status: : No status: NO. PATIENT RELEVANT IMPLANT DATA REVIEWED: Yes PATIENT PRESENTS WITH AN IMPLANTABLE OR ATTACHED INFORMATION TECHNOLOGY INSTRUCTOR: No RADIOLOGY DEPARTMENT: MR; Exam(s) Completed: Body: Liver (routine) PERIPHERAL IV DATA: Site assessment: Clean,Dry and Intact, Site disposition Discontinued SIGNED BY: RT Jasbir(R) January 17, 2024 1:01 PM documented in this encounter [facility] 01-13-2024 Telephone encounter Note Patient phoned asking if insurance approved her MRI of liver. Under referrals appears insurance did approve this. Transferred to [facility]. [facility] 01-13-2024 Miscellaneous Notes Patient phoned asking if insurance approved her MRI of liver. Under referrals appears insurance did approve this. Transferred to [facility]. documented in this encounter [facility] 01-08-2024 Procedure note Procedure(s): CRYOTHERAPY OF BENIGN LESION REMOVAL Pre-Procedure Diagnose(s): Skin tags, multiple acquired Post-Procedure Diagnose(s): Skin tags, multiple acquired After the risks and options of alternative treatments were reviewed, the lesion(s) located on Neck and right axilla were treated with cryosurgery. A total of 15 or more lesion(s) were treated without complications. Adrianne Ignacio MD [facility] 01-08-2024 Procedure note Procedure(s): CRYOTHERAPY OF BENIGN LESION REMOVAL Pre-Procedure Diagnose(s): Skin tags, multiple acquired Post-Procedure Diagnose(s): Skin tags, multiple acquired After the risks and options of alternative treatments were reviewed, the lesion(s) located on Neck and right axilla were treated with cryosurgery. A total of 15 or more lesion(s) were treated without complications. Adrianne Ignacio MD documented in this encounter [facility] 01-08-2024 Instructions Adrianne Ignacio MD - 01/08/2024 10:44 AM EDT SKIN CARE AFTER CRYOSURGERY The SKIN'S response to cryosurgery (freezing) can be mild to more severe, depending on the depth of the freeze and the location of the area treated. You may have only mild redness and swelling with a little discomfort of significant discoloration and blistering with considerable discomfort. A burning sensation in the skin may last from several minutes to several hours after the procedure. Follow these instructions when caring for an area treated by cryosurgery: MINOR RESPONSE: 1. The area may sing or burn for a short time after treatment. 2. The treated area will be red in color at first then turn brown and flakey as it heals and the upper layer of skin sloughs off. 3. Gently cleanse the area with anti-bacterial soap and water. Pat dry and apply a thin film of antibiotic ointment. Do this at least once a day to prevent infection. MAJOR RESPONSE: 1. Follow instructions as stated for minor response. 2. The area may sting and burn for several hours after treatment. 3. To relieve throbbing and pain, elevate the treatment area. 4. If instructed by your physician, you may take [id number] pain medications as needed for discomfort. 5. A blister will form in the area of freezing. It may be filled with clear fluid or blood. This response is not unusual. 6. Do not break the blister unless it becomes uncomfortable. You may prick the blister with a sterile needle or pin to remove the fluid. Leave the skin intact. 7. All treated areas usually heal within 3 to 4 weeks. If you have problems or questions, please call the office at [phone] documented in this encounter [facility] 01-08-2024 History of Present illness Narrative Chief Complaint Patient presents with: Same Day Appointment: skin tags- neck and right axillary HPI Yamil Ng is a 38 year old female who presents here today for Above Complaints.. Also noted patient had RUQ US completed today for nausea with epigastric pain which was evaluated on 12/24. Noted possible liver hemangioma. Recommending MRI to confirm. Patient states that her epigastric pain and nausea after eating has not changed despite taking Omeprazole and Phenergan. Phenergan does help with nausea. Patient with irritating skin tags around her neck and in right axilla. Requesting treatment with cryotherapy. Discussed risks, benefits and alternatives prior to procedure. Past medical history, appointments, medications, allergies reviewed. Previous Medical History PAST MEDICAL HISTORY Diagnosis Date Anemia Complication of anesthesia nausea and vomiting Episode of recurrent major depressive disorder (HCC) 08/28/2018 Family history of epilepsy aunt Hepatitis in viral diseases classified elsewhere(573.1) when she had mono PMH - PAST MEDICAL HISTORY OF Right Sciatica Seizure disorder (HCC) 02/04/2018 Previous Surgical History PAST SURGICAL HISTORY Procedure Laterality Date DELIVERY ONLY , low cervical x4 DELIVERY ONLY 10/14/2016 EXCISION GANGLION WRIST DORSAL/VOLAR PRIMARY Right HYSTEROSCOPY ENDOMETRIAL ABLATION N/A 02/28/2023 KNEE SURGERY HX Right shaved patella and removed fat pad LAP HYSTERECTOMY FOR UTERUS 250G OR LESS 09/04/2023 LIG/TRNSXJ FLP TUBE ABDL/VAG APPR UNI/BI Bilateral 10/14/2016 VAGINAL CUFF REPAIR 09/22/2023 exam under anesthesia, pelvic irrigation and insertion of intraabdominal drain Family History FAMILY HISTORY Problem Relation Age of Onset Hypertension Father Diabetes Father Hyperlipidemia Father Cataract Father other (FIBROMYALGIA) Sister Pancreatitis Sister Cancer Maternal Grandmother Breast Cancer Paternal Grandmother Heart Paternal Grandmother Stroke Paternal Grandfather Diabetes Maternal Aunt Anesthesia Problems No Family History Clotting Disorder No Family History Malig Hyperthermia No Family History Patient Allergies ALLERGIES Allergen Reactions Bleach (Sodium Hypo* Rash Lamictal [Lamotrigi* Rash [place] [Trees] Rash, Hives Topiramate Rash Current Medications Current Outpatient Medications on File Prior to Visit Medication Sig omeprazole (PRILOSEC) 40 mg capsule Take 1 capsule by mouth once daily. promethazine (PHENERGAN) 25 mg tablet Take 1 tablet by mouth every 6 hours as needed for nausea/vomiting. Clobetasol Propionate 0.05 % sham Apply to affected area once daily for 14 days. levETIRAcetam (KEPPRA) 1,000 mg tablet Take 1 tablet by mouth two times a day. lacosamide (VIMPAT) 50 mg tab Take 1 tablet by mouth two times a day for 7 days. Then switch to the 100 mg tablet. lacosamide (VIMPAT) 100 mg tab Take 1 tablet by mouth two times a day for 180 days. [DISCONTINUED] topiramate (TOPAMAX) 25 mg tablet Take by mouth. One tablet twice daily for a week; then two tablets twice daily thereafter. No current facility-administered medications on file prior to visit. Social History Social History Tobacco Use Smoking status: Never Smokeless tobacco: Never Vaping Use Vaping Use: Never used Substance Use Topics Alcohol use: Yes Comment: occasional Drug use: No Review of Symptoms REVIEW OF SYSTEMS GENERAL: No weight loss, malaise or fevers RESPIRATORY: Negative for cough, hemoptysis, wheezing, COPD, dyspnea or shortness of breath CARDIOVASCULAR: Negative for chest pain, leg swelling, hypertension, CHF or palpitations GI: Positive for nausea and loose stools. Negative for constipation, vomiting, hematochezia, melena. SKIN: Positive for skin tags around neck and right arm. EXAM: BP 90/50 (BP Site: Left Arm, BP Position: Sitting, BP Cuff Size: Large Adult) Pulse 79 Resp 12 Ht 162.6 cm (5' 4) Wt 70.3 kg (155 lb) LMP 07/17/2023 (Exact Date) SpO2 96% BMI 26.61 kg/m General Appearance: Well appearing, alert, in no acute distress, well-hydrated, well nourished.. Skin: multiple pedunculated skin tags around neck and in right axilla. Total of 25 treated today. Abdomen: Abdomen soft. Bowel sounds normal. No masses, organomegaly, Positive findings: tenderness mild epigastric without guarding or rebound. Health Maintenance List Hepatitis C Screening Never done Hepatitis B Vaccine(1 of 3 - 19+ 3-dose series) Never done Covid-19 Vaccine( - season) Never done Cervical Cancer Screening due on 11/24/2023 Influenza Vaccine(1) due on 02/23/2024 Mammogram Screening due on 11/05/2024 DTaP,Tdap,Td Vaccine(3 - Td or Tdap) due on 07/30/2026 HIV Screening Completed HPV Vaccine Aged Out Data reviewed US RUQ January 08, 2024 IMPRESSION: Posterior right hepatic lobe echogenic mass. Likely hemangioma. Increase from prior reported size, however. Complete characterization with hepatic MR recommended. Otherwise normal sonographic appearance of the right upper quadrant. UNIVERSAL PROTOCOL / SAFETY CHECKLIST Procedure to be Performed: Cryotherapy skin tags Sign In: A Moment of CARE was completed. Personnel directly involved with the procedure wore the appropriate PPE (Personal Protective Equipment). Patient/Surrogate Stated/Verified: PATIENT VERIFIED(optional for EMERGENT procedures): Patient name, Date of , Relevant allergies, and The intended procedure Time Out Communication: Intended patient and procedure match the source documents. Consent documented and matches the intended procedure. Sign Out: SIGN OUT (optional for EMERGENT procedures): No specimen collected. Adrianne Ignacio MD ASSESSMENT/PLAN: 1. Epigastric pain - ICD9: 789.06, ICD10: R10.13 (primary diagnosis) Symptoms persist from OV 2 weeks ago. Workup thus far has been benign. Increase PPI to BID and refer for EGD. Red flags for re-assessment reviewed with patient in detail. - OMEPRAZOLE 40 MG CAPSULE,DELAYED RELEASE - CONSULT TO GENERAL SURGERY 2. Nausea - ICD9: 787.02, ICD10: R11.0 Improved with phenergan. Continue PRN. - CONSULT TO GENERAL SURGERY 3. Liver lesion - ICD9: 573.8, ICD10: K76.9 Likely hemangioma. Obtain MRI to confirm. - MRI LIVER WO/W IVCON - IV CONTRAST (RADIOLOGY PROCEDURE) 4. Skin tags, multiple acquired - ICD9: 701.9, ICD10: L91.8 See procedure note. Red flags for re-assessment reviewed with patient in detail. Given instructions for wound care for home. 5. S/P cryotherapy of skin lesion - ICD9: V45.89, ICD10: Z98.890 See procedure note. Red flags for re-assessment reviewed with patient in detail. Given instructions for wound care for home. Adrianne Ignacio MD documented in this encounter [facility] 01-08-2024 History of Present illness Narrative Radiology Service Progress Note PATIENT NAME: Yamil Ng DATE OF SERVICE: January 08, 2024 TIME: 7:31 AM PATIENT IDENTITY VERIFICATION COMPLETED USING TWO (2) IDENTIFIERS: Name and Date of confirmed by patient verbally. FALL SCREENING: Has the patient had 2 falls in the last year or 1 fall with injury or currently using an Ambulatory Assistive Device (Walker, Cane, Wheelchair, Crutches, etc.)? No PATIENT GENDER DATA: Female. status: : No status: NO. PATIENT RELEVANT IMPLANT DATA REVIEWED: Not Applicable PATIENT PRESENTS WITH AN IMPLANTABLE OR ATTACHED INFORMATION TECHNOLOGY INSTRUCTOR: No RADIOLOGY DEPARTMENT: Ultrasound PERIPHERAL IV DATA: Not applicable SIGNED BY: Lotus Alfonso RDMS January 08, 2024 7:31 AM documented in this encounter [facility] 12-27-2023 Telephone encounter Note Phoned patient left detailed message with results, notes from Cristy Dunbar NP on voicemail. [facility] 12-27-2023 Miscellaneous Notes Phoned patient left detailed message with results, notes from Cristy Dunbar IRRIGATION PUMP INSTALLER on voicemail. Blood work is normal. Complete ultrasound as scheduled. Cirsty Dunbar APRN.CNP documented in this encounter [facility] 12-27-2023 Telephone encounter Note Blood work is normal. Complete ultrasound as scheduled. Cristy Dunbar APRN.CNP [facility] Work Phone: 12-25-2023 History of Present illness Narrative Chief Complaint Patient presents with: Nausea: Feelings of nausea right after eating x 6 months, no difference with specific foods, occurs every time, denies vomiting Derm Problem: Base of hair line has had flaky and itchy skin x several years, starting to spread to back of ears and neck x 2-3 months, has never seen dermatology HPI Yamil Ng is a 38 year old female who presents here today for Above Complaints.. Patient complaining of nausea after eating for the last 6 months which has been worse in the last 2 weeks without vomiting. Associated with epigastric pain within 15-20 minutes of eating which takes hours to resolve. Has treated with Tums, Zofran, Pepto bismol, juan f, and cinnamon disks without improvement. Denies new medications, heartburn, reflux, diarrhea, constipation, hematochezia, melena, weight loss, urinary symptoms, vaginal bleeding/discharge. Also would like itchy rash on the back of her scalp checked. States she has always had this, but it is starting to spread to her neck and behind her ears in the last 2-3 months. Admits to flaking without pain. Not treating with anything OTC. Past medical history, appointments, medications, allergies reviewed. Previous Medical History PAST MEDICAL HISTORY Diagnosis Date Anemia Complication of anesthesia nausea and vomiting Episode of recurrent major depressive disorder (HCC) 08/28/2018 Family history of epilepsy aunt Hepatitis in viral diseases classified elsewhere(573.1) when she had mono PMH - PAST MEDICAL HISTORY OF Right Sciatica Seizure disorder (HCC) 02/04/2018 Previous Surgical History PAST SURGICAL HISTORY Procedure Laterality Date DELIVERY ONLY , low cervical x4 DELIVERY ONLY 10/14/2016 EXCISION GANGLION WRIST DORSAL/VOLAR PRIMARY Right HYSTEROSCOPY ENDOMETRIAL ABLATION N/A 02/28/2023 KNEE SURGERY HX Right shaved patella and removed fat pad LAP HYSTERECTOMY FOR UTERUS 250G OR LESS 09/04/2023 LIG/TRNSXJ FLP TUBE ABDL/VAG APPR UNI/BI Bilateral 10/14/2016 VAGINAL CUFF REPAIR 09/22/2023 exam under anesthesia, pelvic irrigation and insertion of intraabdominal drain Family History FAMILY HISTORY Problem Relation Age of Onset Hypertension Father Diabetes Father Hyperlipidemia Father Cataract Father other (FIBROMYALGIA) Sister Pancreatitis Sister Cancer Maternal Grandmother Breast Cancer Paternal Grandmother Heart Paternal Grandmother Stroke Paternal Grandfather Diabetes Maternal Aunt Anesthesia Problems No Family History Clotting Disorder No Family History Malig Hyperthermia No Family History Patient Allergies ALLERGIES Allergen Reactions Bleach (Sodium Hypo* Rash Lamictal [Lamotrigi* Rash [place] [Trees] Rash, Hives Topiramate Rash Current Medications Current Outpatient Medications on File Prior to Visit Medication Sig levETIRAcetam (KEPPRA) 1,000 mg tablet Take 1 tablet by mouth two times a day. lacosamide (VIMPAT) 100 mg tab Take 1 tablet by mouth two times a day for 180 days. lacosamide (VIMPAT) 50 mg tab Take 1 tablet by mouth two times a day for 7 days. Then switch to the 100 mg tablet. [DISCONTINUED] topiramate (TOPAMAX) 25 mg tablet Take by mouth. One tablet twice daily for a week; then two tablets twice daily thereafter. No current facility-administered medications on file prior to visit. Social History Social History Tobacco Use Smoking status: Never Smokeless tobacco: Never Vaping Use Vaping Use: Never used Substance Use Topics Alcohol use: Yes Comment: occasional Drug use: No Review of Symptoms REVIEW OF SYSTEMS See HPI EXAM: BP 104/70 Pulse 68 Resp 16 Wt 70.9 kg (156 lb 6.4 oz) LMP 07/17/2023 (Exact Date) SpO2 97% BMI 26.85 kg/m General Appearance: Well appearing, alert, in no acute distress, well-hydrated, well nourished. Skin: flaky red rash on occiput of scalp with spread behind her ears. No thick plaque noted. No rash on elbows, knees, upper arms or legs. Abdomen: Abdomen soft. Bowel sounds normal. No masses, organomegaly, Positive findings: tenderness mild generalized without guarding or rebound. Negative yancey's. Health Maintenance List Hepatitis C Screening Never done Hepatitis B Vaccine(1 of 3 - 19+ 3-dose series) Never done Covid-19 Vaccine(2022- season) Never done Cervical Cancer Screening due on 11/24/2023 Influenza Vaccine(1) due on 02/23/2024 Mammogram Screening due on 11/05/2024 DTaP,Tdap,Td Vaccine(3 - Td or Tdap) due on 07/30/2026 HIV Screening Completed HPV Vaccine Aged Out ASSESSMENT/PLAN: 1. Epigastric pain - ICD9: 789.06, ICD10: R10.13 (primary diagnosis) Unknown etiology. Possible gallstones vs cholecystitis vs gastritis vs gastric ulcer. Will obtain labs and imaging as ordered. Start PPI. Keep food diary and avoid trigger foods. May use phenergan PRN for nausea. Red flags for re-assessment reviewed with patient in detail. - US ABD RIGHT UPPER QUADRANT - COMPLETE BLOOD COUNT AND DIFFERENTIAL - COMPREHENSIVE METABOLIC PANEL - LIPASE - OMEPRAZOLE 40 MG CAPSULE,DELAYED RELEASE - PROMETHAZINE 25 MG TABLET 2. Nausea - ICD9: 787.02, ICD10: R11.0 See above. - US ABD RIGHT UPPER QUADRANT 3. Psoriasis of scalp - ICD9: 696.1, ICD10: L40.9 Early psoriasis vs eczema. Will treat with clobetasol shampoo daily x 2 weeks. Recheck at OV in 2 weeks and will refer to dermatology in case rash does not resolve. - CLOBETASOL 0.05 % SHAMPOO - CONSULT TO DERMATOLOGY 4. Atopic dermatitis of scalp - ICD9: 691.8, ICD10: L20.9 - Begin treatment with topical steriods clobetasol limit use for up to 2 weeks - Dry skin care instructions reviewed - Use mild soap like Dove, Aveeno or Cetaphil - limit shower/bath to less than 15 minutes with warm, not hot, water - BID use of recommended emollients such as Cetaphil, Eucerin Plus, Aveeno, Aquaphor - Follow up if symptoms persist or worsen. - CLOBETASOL 0.05 % SHAMPOO - CONSULT TO DERMATOLOGY Adrianne Ignacio MD documented in this encounter [facility] 12-20-2023 Telephone encounter Note The following approved medication requests have been transmitted electronically. Requested Prescriptions Signed Prescriptions Disp Refills levETIRAcetam (KEPPRA) 1,000 mg tablet 180 tablet 2 Sig: Take 1 tablet by mouth two times a day. Authorizing Provider: ELLA JACOBO PA-C [facility] 12-20-2023 Miscellaneous Notes The following approved medication requests have been transmitted electronically. Requested Prescriptions Signed Prescriptions Disp Refills levETIRAcetam (KEPPRA) 1,000 mg tablet 180 tablet 2 Sig: Take 1 tablet by mouth two times a day. Authorizing Provider: ELLA JACOBO PA-C Prescription Refill: Requested by: patient Please E-Scribe Caller Contact Number: [phone] (home) Pharmacy Name: [facility] Pharmacy Number: [phone] Generic/ brand: generic 30 or 90 day supply requested: 90 Last appointment: 03/28/23 Next Appointment: 02/07/[address] Marinelli documented in this encounter [facility] 12-20-2023 Telephone encounter Note Prescription Refill: Requested by: patient Please E-Scribe Caller Contact Number: [phone] (home) Pharmacy Name: [facility] Pharmacy Number: [phone] Generic/ brand: generic 30 or 90 day supply requested: 90 Last appointment: 03/28/23 Next Appointment: 02/07/[address] Marinelli [facility] 12-20-2023 Telephone encounter Note Spoke with pt and information listed below given. Pt verbalizes understanding. Pt will call back to schedule physical Sarah Rutledge LPN [facility] 12-20-2023 Miscellaneous Notes Spoke with pt and information listed below given. Pt verbalizes understanding. Pt will call back to schedule physical Sarah Rutledge LPN She needs to request this from her neurologist who is managing her history of seizures. Patient is due for annual physical and needs to schedule OV in next 1-2 months. Patient [employer] message requesting the following refill Refill(s) Requested: Requested Prescriptions Pending Prescriptions Disp Refills levETIRAcetam (KEPPRA) 1,000 mg tablet 180 tablet 2 Sig: Take 1 tablet by mouth two times a day. ALLERGIES Allergen Reactions Bleach (Sodium Hypo* Rash Lamictal [Lamotrigi* Rash [place] [Trees] Rash, Hives Topiramate Rash (home) [phone] (cell) Last Office Visit Date: 01/28/2023 Last [facility] [place] [facility] Visit: Visit date not found Future Appointment: Visit date not found The patients preferred pharmacy has been captured for this encounter? yes Request is for script(s) to be escript to pharmacy. Aly Hogan LPN documented in this encounter [facility] 12-20-2023 Telephone encounter Note She needs to request this from her neurologist who is managing her history of seizures. Patient is due for annual physical and needs to schedule OV in next 1-2 months. [facility] Work Phone: 12-20-2023 Telephone encounter Note Patient [employer] message requesting the following refill Refill(s) Requested: Requested Prescriptions Pending Prescriptions Disp Refills levETIRAcetam (KEPPRA) 1,000 mg tablet 180 tablet 2 Sig: Take 1 tablet by mouth two times a day. ALLERGIES Allergen Reactions Bleach (Sodium Hypo* Rash Lamictal [Lamotrigi* Rash [place] [Trees] Rash, Hives Topiramate Rash (home) [phone] (cell) Last Office Visit Date: 01/28/2023 Last [facility] [place] [facility] Visit: Visit date not found Future Appointment: Visit date not found The patients preferred pharmacy has been captured for this encounter? yes Request is for script(s) to be escript to pharmacy. Aly Hogan LPN [facility] 12-10-2023 History of Present illness Narrative Radiology Service Progress Note PATIENT NAME: Yamil Ng DATE OF SERVICE: December 10, 2023 TIME: 2:57 PM PATIENT IDENTITY VERIFICATION COMPLETED USING TWO (2) IDENTIFIERS: Name and Date of confirmed by patient verbally. FALL SCREENING: Has the patient had 2 falls in the last year or 1 fall with injury or currently using an Ambulatory Assistive Device (Walker, Cane, Wheelchair, Crutches, etc.)? No PATIENT GENDER DATA: Female. status: : No status: NO. PATIENT RELEVANT IMPLANT DATA REVIEWED: Not Applicable PATIENT PRESENTS WITH AN IMPLANTABLE OR ATTACHED INFORMATION TECHNOLOGY INSTRUCTOR: No RADIOLOGY DEPARTMENT: Mammography PERIPHERAL IV DATA: Not applicable SIGNED BY: Prabhakar Hortao Tech December 10, 2023 2:57 PM documented in this encounter [facility] 12-05-2023 Telephone encounter Note Images from the original note were not included. PA completed electronically on 12/03 PA initiated through CMM disregarded. Edith Valera RN [facility] Work Phone: 12-05-2023 Miscellaneous Notes Images from the original note were not included. PA completed electronically on 12/03 PA initiated through CMM disregarded. Edith Valera RN Prior Authorization Needed: Received by: Fax Requested by (pharmacy name): [facility] Phone number: [phone] Name of medication: Lacosamide Strength and dosage: 50mg, Sig: Take 1 tablet by mouth two times a day for 7 days. Then switch to the 100 mg tablet. Insurance company name and phone #: Patient ID: CoverMyMeds Bhat: [id number] PCN #: BIN#: Group #: Patient of Dr. Marinelli documented in this encounter [facility] 12-05-2023 Telephone encounter Note Images from the original note were not included. ====== PA completed electronically and approved. [facility] PA REQUEST DISREGARDED Edith Valera RN [facility] Work Phone: 12-05-2023 Miscellaneous Notes Images from the original note were not included. ====== PA completed electronically and approved. [facility] PA REQUEST DISREGARDED Edith Valera RN Prior Authorization Needed: Received by: Fax Requested by (pharmacy name): [facility] Phone number: [phone] Name of medication: Lacosamide Strength and dosage: 100mg, Sig: Take 1 tablet by mouth two times a day for 180 days. Insurance company name and phone #: Patient ID: CoverMyMeds Bhat: [id number] PCN #: BIN#: Group #: Patient of Dr. Marinelli documented in this encounter [facility] 12-05-2023 Telephone encounter Note Prior Authorization Needed: Received by: Fax Requested by (pharmacy name): [facility] Phone number: [phone] Name of medication: Lacosamide Strength and dosage: 50mg, Sig: Take 1 tablet by mouth two times a day for 7 days. Then switch to the 100 mg tablet. Insurance company name and phone #: Patient ID: CoverMyMeds Bhat: [id number] PCN #: BIN#: Group #: Patient of Dr. Marinelli [facility] 12-05-2023 Telephone encounter Note Prior Authorization Needed: Received by: Fax Requested by (pharmacy name): [facility] Phone number: [phone] Name of medication: Lacosamide Strength and dosage: 100mg, Sig: Take 1 tablet by mouth two times a day for 180 days. Insurance company name and phone #: Patient ID: CoverMyMeds Bhat: [id number] PCN #: BIN#: Group #: Patient of Dr. Marinelli [facility] 12-04-2023 Telephone encounter Note Called Yamil, Advised per recommendations Darline HUSSEIN. She agrees with plan. Forwarded to [facility] desk editor scheduling Pool for coordination of VV with Dr Marinelli in January time frame. Routed to Abdi Musa and APP1 as FYI only Edith Valera RN [facility] Work Phone: 12-04-2023 Miscellaneous Notes Called Yamil, Advised per sydni HUSSEIN. She agrees with plan. Forwarded to [facility] desk editor scheduling Pool for coordination of VV with Dr Marinelli in January time frame. Routed to Abdi Musa and APP1 as FYI only Edith Valera RN Agree with plan to restart LCM titration and follow up with Dr. Marinelli. No appointment currently scheduled with Dr. Marinelli, will need scheduled. The following approved medication requests have been transmitted electronically. Requested Prescriptions Signed Prescriptions Disp Refills lacosamide (VIMPAT) 50 mg tab 14 tablet 0 Sig: Take 1 tablet by mouth two times a day for 7 days. Then switch to the 100 mg tablet. Authorizing Provider: KENRICK ZAIDI lacosamide (VIMPAT) 100 mg tab 180 tablet 1 Sig: Take 1 tablet by mouth two times a day for 180 days. Authorizing Provider: HILL, AILIS PDMP website checked and validated. All prescriptions have been APPROPRIATELY filled. No suspicious activity was identified. 12/04/2023 by Kenrick Zaidi PA-C Per Shaun Way on 05/22/2023 PLAN: - Medical Therapy: Start LCM 50 mg Bid for 1 week, then increase to 1000 mg BID - Continue LEV 100 mg BID for now- will plan to decrease/wean if she toerlated LCM well. - Seizure precautions including no driving - Follow up: 6 month ASMs:LEV 1000 BID ====== Spoke with Yamil, More headaches than normal, forgetting things, difficulty with stringing sentences things together. These symptoms come and go but have been worsening over the last 1-2 weeks. Symptoms occur every day all day long. She has not had any seizures that she is aware. Typically has seizures in her sleep and is knocked out the whole day following which she has not had for several months Discussed where she was with LCM titration per recommendations at last appointment.... She only took LCM for about one month but was discontinued for reasons she can't remember -(Per epic review - Concern with interaction between inderal and LCM) - Then medication required PA for generic which was approved in 06/2023 She does not remember taking Inderal (propranolol) either which was prescribed by migraine specialist. She is agreeable to restart LCM titration and schedule f/u with Dr Marinelli in 01/2024 once she has reached goal dose and discuss weaning of LEV. She will also follow up with migraine specialist as per Cas Ortega - no adverse interaction noted between two medications (was prescribed for headaches). Forwarded to APP1 for review and recommendation. Will need new RX sent to Pharmacy for LCM if appropriate. Edith Valera RN ; == General call : Full name of person calling: Yamil Ng Relationship to patient: self Phone # : [phone] Reason for call: Patient called and said that she is experiencing memory loss, headaches, and speech difficulty. Patient of Dr. Marinelli documented in this encounter [facility] 12-04-2023 Telephone encounter Note Agree with plan to restart LCM titration and follow up with Dr. Marinelli. No appointment currently scheduled with Dr. Marinelli, will need scheduled. The following approved medication requests have been transmitted electronically. Requested Prescriptions Signed Prescriptions Disp Refills lacosamide (VIMPAT) 50 mg tab 14 tablet 0 Sig: Take 1 tablet by mouth two times a day for 7 days. Then switch to the 100 mg tablet. Authorizing Provider: KENRICK ZAIDI lacosamide (VIMPAT) 100 mg tab 180 tablet 1 Sig: Take 1 tablet by mouth two times a day for 180 days. Authorizing Provider: KENRICK ZAIDI PDMP website checked and validated. All prescriptions have been APPROPRIATELY filled. No suspicious activity was identified. 12/04/2023 by Kenrick Zaidi PA-C [facility] 12-04-2023 Telephone encounter Note Per Shaun Way on 05/22/2023 PLAN: - Medical Therapy: Start LCM 50 mg Bid for 1 week, then increase to 1000 mg BID - Continue LEV 100 mg BID for now- will plan to decrease/wean if she toerlated LCM well. - Seizure precautions including no driving - Follow up: 6 month ASMs:LEV 1000 BID ====== Spoke with Yamil, More headaches than normal, forgetting things, difficulty with stringing sentences things together. These symptoms come and go but have been worsening over the last 1-2 weeks. Symptoms occur every day all day long. She has not had any seizures that she is aware. Typically has seizures in her sleep and is knocked out the whole day following which she has not had for several months Discussed where she was with LCM titration per recommendations at last appointment.... She only took LCM for about one month but was discontinued for reasons she can't remember -(Per epic review - Concern with interaction between inderal and LCM) - Then medication required PA for generic which was approved in 06/2023 She does not remember taking Inderal (propranolol) either which was prescribed by migraine specialist. She is agreeable to restart LCM titration and schedule f/u with Dr Marinelli in 01/2024 once she has reached goal dose and discuss weaning of LEV. She will also follow up with migraine specialist as per Cas Ortega - no adverse interaction noted between two medications (was prescribed for headaches). Forwarded to APP1 for review and recommendation. Will need new RX sent to Pharmacy for LCM if appropriate. Edith Valera RN ; == [facility] 12-03-2023 Telephone encounter Note General call : Full name of person calling: Yamil Ng Relationship to patient: self Phone # : [phone] Reason for call: Patient called and said that she is experiencing memory loss, headaches, and speech difficulty. Patient of Dr. Marinelli [facility] 11-12-2023 Telephone encounter Note Right breast imaging orders pended for callback from screening mammogram. [facility] 11-12-2023 Miscellaneous Notes Right breast imaging orders pended for callback from screening mammogram. documented in this encounter [facility] 11-07-2023 Note Formatting of this n ote might be different from the original. November 07, 2023 PID: [id number] Yamil Dumont Hernandez [address] [place] [address] Dear Ms. Ng, Your recent breast imaging exam on 11/06/2023 showed a possible finding that requires additional imaging studies for a complete evaluation. Most such findings are probably benign (not cancer). Your mammogram demonstrates that you have dense breast tissue, which could hide abnormalities. Dense breast tissue, in and of itself, is a relatively common condition. Therefore, this information is not provided to cause undue concern; rather, it is to raise your awareness and promote discussion with your health care provider regarding the presence of dense breast tissue in addition to other risk factors. If you have a healthcare provider who ordered/prescribed your screening mammogram: Please call [phone] or EXT: [phone] to schedule an appointment for your additional imaging (if you have not already done so). If you DO NOT have a healthcare provider (ie you did not have an order/prescription for your screening mammogram): Please call to schedule an appointment for your additional imaging (if you have not already done so). You must have an order/prescription from your physician when calling to schedule your appointment. If your order/prescription is not electronic, you must bring the hard copy with you on the day of your exam to avoid delays. Your imaging studies and reports are kept on file at [facility] as part of your permanent medical record, and are available for your continuing care. Thank you for allowing us to help in meeting your health care needs. Sincerely, Dr. Meza Interpreting Radiologist [facility] (Additional imaging) [facility] 11-07-2023 Miscellaneous Notes November 07, 2023 PID: [id number] Yamil Ng [address] [place] [address] Dear Ms. Ng, Your recent breast imaging exam on 11/06/2023 showed a possible finding that requires additional imaging studies for a complete evaluation. Most such findings are probably benign (not cancer). Your mammogram demonstrates that you have dense breast tissue, which could hide abnormalities. Dense breast tissue, in and of itself, is a relatively common condition. Therefore, this information is not provided to cause undue concern; rather, it is to raise your awareness and promote discussion with your health care provider regarding the presence of dense breast tissue in addition to other risk factors. If you have a healthcare provider who ordered/prescribed your screening mammogram: Please call [phone] or EXT: [phone] to schedule an appointment for your additional imaging (if you have not already done so). If you DO NOT have a healthcare provider (ie you did not have an order/prescription for your screening mammogram): Please call to schedule an appointment for your additional imaging (if you have not already done so). You must have an order/prescription from your physician when calling to schedule your appointment. If your order/prescription is not electronic, you must bring the hard copy with you on the day of your exam to avoid delays. Your imaging studies and reports are kept on file at [facility] as part of your permanent medical record, and are available for your continuing care. Thank you for allowing us to help in meeting your health care needs. Sincerely, Dr. Meza Interpreting Radiologist [facility] (Additional imaging) documented in this encounter [facility] 11-06-2023 History of Present illness Narrative Radiology Service Progress Note PATIENT NAME: Yamil Ng DATE OF SERVICE: November 06, 2023 TIME: 10:58 AM PATIENT IDENTITY VERIFICATION COMPLETED USING TWO (2) IDENTIFIERS: Name and Date of confirmed by patient verbally. FALL SCREENING: Has the patient had 2 falls in the last year or 1 fall with injury or currently using an Ambulatory Assistive Device (Walker, Cane, Wheelchair, Crutches, etc.)? No PATIENT GENDER DATA: Female. status: : No status: NO. PATIENT RELEVANT IMPLANT DATA REVIEWED: Not Applicable PATIENT PRESENTS WITH AN IMPLANTABLE OR ATTACHED INFORMATION TECHNOLOGY INSTRUCTOR: No RADIOLOGY DEPARTMENT: Mammography PERIPHERAL IV DATA: Not applicable SIGNED BY: Sarahi Castillo BERDo Zia November 06, 2023 10:58 AM documented in this encounter [facility] 11-06-2023 History of Present illness Narrative DATE OF SERVICE: 11/06/2023 PROBLEM: Yamil Ng presents for postop visit. SURGERY & DATE: 09/03 LAV, 09/21 take back for cuff hematoma and cuff repair PATHOLOGY: benign SUBJECTIVE/INTERVAL HISTORY: Yamil Ng reports that she feels well. No fever or chills. No vaginal bleeding, normal discharge. No incisional redness, swelling, or drainage. Patient reports that her appetite is good. . . OBJECTIVE: ABDOMEN: Abdomen soft, non-tender, no hepatosplenomegaly. PELVIC: External genitalia normal. Vagina normal on speculum exam. Uterus, cervix, adnexa surgically absent. No urethral, bladder or pelvic masses. Cuff smooth. Cul de sac negative on rectal exam. No rectal masses. SUture knots only noted in both apices ASSESSMENT: postop visit PLAN: 1. Discussed results of pathology and implications with patient. 2. Postop restrictions reviewed. Verbal consent for SANE nurse to do speculum exam obtained. She did speculum exam under my direct observation Temitope Acuna MD documented in this encounter [facility] 10-29-2023 Telephone encounter Note Letter printed and to desk editor. Ashley Oh RN [facility] 10-29-2023 Miscellaneous Notes Letter printed and to desk editor. Ashley Oh RN ok to return to work normal activity. Can I see her this week or next to check cuff? Still no intercourse until 8 weeks from second surgery. Temitope Acuna MD Patient had LAVH and B/L Salpingectomy on 09/04/23 and then taken back again for vaginal hematoma/cuff dehiscence on 09/21. Seen for Post Op on 10/16/23. documented in this encounter [facility] 10-29-2023 Telephone encounter Note ok to return to work normal activity. Can I see her this week or next to check cuff? Still no intercourse until 8 weeks from second surgery. Temitope Acuna MD [facility] 10-28-2023 Telephone encounter Note Patient had LAVH and B/L Salpingectomy on 09/04/23 and then taken back again for vaginal hematoma/cuff dehiscence on 09/21. Seen for Post Op on 10/16/23. [facility] 10-24-2023 History of Present illness Narrative Images from the original note were not included. Subjective HPI HPI Yamil Ng is a 38 year old female who presents today for CC of woke up with left foot pain this AM. Has tried rest for relief. Symptoms are worsened by rom/walking. Denies injury/prior surgery to this foot. .Patient presents with: Pain (foot): L foot, outside ankle on into foot ad up into ankle and deluca x this am PAST MEDICAL HISTORY Diagnosis Date Anemia Complication of anesthesia nausea and vomiting Episode of recurrent major depressive disorder (HCC) 08/28/2018 Family history of epilepsy aunt Hepatitis in viral diseases classified elsewhere(573.1) when she had mono PMH - PAST MEDICAL HISTORY OF Right Sciatica Seizure disorder (HCC) 02/04/2018 PAST SURGICAL HISTORY Procedure Laterality Date DELIVERY ONLY , low cervical x4 DELIVERY ONLY 10/14/2016 EXCISION GANGLION WRIST DORSAL/VOLAR PRIMARY Right HYSTEROSCOPY ENDOMETRIAL ABLATION N/A 02/28/2023 KNEE SURGERY HX Right shaved patella and removed fat pad LAP HYSTERECTOMY FOR UTERUS 250G OR LESS 09/04/2023 LIG/TRNSXJ FLP TUBE ABDL/VAG APPR UNI/BI Bilateral 10/14/2016 VAGINAL CUFF REPAIR 09/22/2023 exam under anesthesia, pelvic irrigation and insertion of intraabdominal drain ALLERGIES Bleach (Sodium Hypochlorite), Lamictal [Lamotrigine], [place] [Trees], and Topiramate MEDICATIONS levETIRAcetam (KEPPRA) 1,000 mg tablet Take 1 tablet by mouth two times a day. [DISCONTINUED] topiramate (TOPAMAX) 25 mg tablet Take by mouth. One tablet twice daily for a week; then two tablets twice daily thereafter. FAMILY HISTORY Problem Relation Age of Onset Hypertension Father Diabetes Father Hyperlipidemia Father Cataract Father other (FIBROMYALGIA) Sister Pancreatitis Sister Cancer Maternal Grandmother Breast Cancer Paternal Grandmother Heart Paternal Grandmother Stroke Paternal Grandfather Diabetes Maternal Aunt Anesthesia Problems No Family History Clotting Disorder No Family History Malig Hyperthermia No Family History Social History Tobacco Use Smoking status: Never Smokeless tobacco: Never Vaping Use Vaping Use: Never used Substance Use Topics Alcohol use: Yes Comment: occasional Drug use: No ROS Objective Blood pressure 106/71, pulse 81, temperature 36.5 C (97.7 F), resp. rate 20, weight 69 kg (152 lb 1.9 oz), last menstrual period 07/17/2023, SpO2 99%. Physical Exam Constitutional: General: She is not in acute distress. Appearance: She is not toxic-appearing or diaphoretic. HENT: Head: Normocephalic and atraumatic. Cardiovascular: Pulses: Dorsalis pedis pulses are 2+ on the left side. Posterior tibial pulses are 2+ on the left side. Pulmonary: Effort: Pulmonary effort is normal. No accessory muscle usage or respiratory distress. Musculoskeletal: Feet: Neurological: Mental Status: She is alert and oriented to person, place, and time. ASSESSMENT/PLAN: 1. Foot pain, left - ICD9: 729.5, ICD10: M79.672 -no bony abnormality noted on xray -Rest, Ice, Compression, Elevation discussed -discussed use of ibuprofen -follow up with primary care if symptoms persist/worsen in 10-14 days - XR FOOT GENERAL 3V AP/LAT/OBL LEFT IMPRESSION: No acute osseous abnormality Dictated by : MD Ismael LOPEZ APRN.TRACK WATCHMAN documented in this encounter [facility] 10-24-2023 History of Present illness Narrative Radiology Service Progress Note PATIENT NAME: Yamil Ng DATE OF SERVICE: October 24, 2023 TIME: 11:32 AM PATIENT IDENTITY VERIFICATION COMPLETED USING TWO (2) IDENTIFIERS: Name and Date of confirmed by patient verbally. FALL SCREENING: Has the patient had 2 falls in the last year or 1 fall with injury or currently using an Ambulatory Assistive Device (Walker, Cane, Wheelchair, Crutches, etc.)? No PATIENT GENDER DATA: Female. status: : No status: NO. PATIENT RELEVANT IMPLANT DATA REVIEWED: Yes PATIENT PRESENTS WITH AN IMPLANTABLE OR ATTACHED INFORMATION TECHNOLOGY INSTRUCTOR: No RADIOLOGY DEPARTMENT: General X-ray: Exam(s) Completed: Lower Extremity X-Ray(s): Foot, Left PERIPHERAL IV DATA: Not applicable SIGNED BY: RT Adelia(R) October 24, 2023 11:32 AM documented in this encounter [facility] 10-16-2023 History of Present illness Narrative DATE OF SERVICE: 10/16/2023 PROBLEM: Yamil Ng presents for postop visit. SURGERY & DATE: 09/03 LVH and 09/21 take back for vaginal hematoma PATHOLOGY: benign SUBJECTIVE/INTERVAL HISTORY: Yamil Ng reports that she feels tired, doesn't sleep well at night but hasn't for a long time, so not new. No fever or chills. No shortness of breath, cough, or chest pain. Minimal vaginal discharge or bleeding. Patient reports that her appetite is poor. Denies consitpation or diarrhea or dysuria. . OBJECTIVE: HEENT: Normocephalic, atraumatic, mucus membranes moist, and no lesions ABDOMEN: Abdomen soft, non-tender, no hepatosplenomegaly. Incisions healing well. Some suture knots removed PELVIC: External genitalia normal. Vagina normal on speculum exam. Uterus, cervix, adnexa surgically absent. No urethral, bladder or pelvic masses. Cuff smooth. Cul de sac negative on rectal exam. No rectal masses. Gays mucous discharge, no malodor, no purulent discharge, mild tenderness of cuff . ASSESSMENT: postop check PLAN: 1. Discussed results of pathology and implications with patient. 2. Postop restrictions reviewed. recommend MVI check labs due to fatigue p;ush fluids, add protein if fever or other changes notify office and will likely need repeat CT Temitope Acuna MD documented in this encounter [facility] 10-07-2023 Miscellaneous Notes Patient notified. Declined visit tomorrow. Will call back if there are any changes prior to her post op visit. Ashley Oh RN Likely a suture. Does she want to come in tomorrow for me to check it? If no redness or drainage or concern for infection ok to leave it or place a piece of guaze lightly over it if it is snagging on clothing and wait until next week. Temitope Acuna MD Patient had take back surgery for vaginal hematoma and cuff dehiscence 09/21/22 , s/p LAVH 09/04/23. She is calling today c/o discomfort at umbilicus. When she went to check on it she felt something metal like and feels like it is a possible suture still from surgery. No redness or drainage with it. Next post op visit 10/15. Please advise. Ashley Oh RN documented in this encounter [facility] 09-30-2023 History of Present illness Narrative DATE OF SERVICE: 09/30/2023 PROBLEM: Yamil Ng presents for postop visit. SURGERY & DATE: take back surgery for vaginal hematoma and cuff dehiscence 09/21/22 , s/p LAVH 09/04/23 PATHOLOGY: n/a SUBJECTIVE/INTERVAL HISTORY: Yamil Ng reports that she feels fair. No fever or chills. No shortness of breath, cough, or chest pain. Still has pain meds but not taking oxycodone, jsut motrin and tylenol. Patient reports that her appetite is poor. See HPI. See HPI. OBJECTIVE: HEENT: Normocephalic, atraumatic, mucus membranes moist, and no lesions ABDOMEN: Abdomen soft, non-tender, no hepatosplenomegaly. Incisions healing well. PELVIC: External genitalia normal. Vagina normal on speculum exam. Uterus, cervix, adnexa surgically absent. No urethral, bladder or pelvic masses. Cuff smooth. Cul de sac negative on rectal exam. No rectal masses. external genitalia w/ some adherent white discharge, cuff intact w/ sutures. Physiological pink tinged discharge, no malodor ASSESSMENT: psotop MIKE, s/p take back surgery 8 days ago. PLAN: 1. Discussed results of pathology and implications with patient. 2. Postop restrictions reviewed. Keep next appointment Temitope Acuna MD documented in this encounter [facility] 09-27-2023 Miscellaneous Notes Patient called into office. Stated she could not do 48 afternoon and only wanted to see RR. Rescheduled to 48 in the morning - no other openings at all with RR next week and patient is aware of this. Ashley Oh RN documented in this encounter [facility] 09-23-2023 Progress note Note Date/Time September 23, 2023 12:57pm [facility] Medical Records Department [address] [place] [address] Progress Note - OBGYN 09/23/23 1251 MR#: [id number] Acct: [id number] Name: YAMIL NG Rep #:[id number] : 1985 38 From: Rosenda Valencia DO PCP: Care Physician,No Primary Status :ADM IN Location: [place] [address] Subjective Subjective Nursing staff called given patient's pain. At bedside to check on patient. Ryder the pain is in the right lower quadrant of her pelvis. The pain is mostly with ambulation and movement. She does not want additional pain medication at this time. She felt chills earlier that then resolved. Otherwisedenies feeling feverish or feeling chills. She has had some clears without nausea or vomiting. No flatus. She feels urination has improved. She is able to void without any difficulty initiating urinary stream, and she feels a full urinary stream when she voids. Vaginal bleeding is scant. Objective Data Objective Data Vital Signs: Vital Signs Temp Pulse Resp BP Pulse Ox O2 Del Method O2 Flow Rate 97.7 F L 56 L 16 99/61 99 Room Air 1 09/23/23 10:00 09/23/23 10:00 09/23/23 10:00 09/23/23 10:09/23/23 10:00 09/23/23 10:00 09/23/23 04:29 Oxygen Flow Rate (L/min) 1 Oxygen Delivery Method Room Air Weight: 168 lb 3.403 oz Body Mass Index (BMI) 29.7 Intake & Output: Intake and Output for Last 24 Hours 09/21/23 09/22/23 09/23/23 23:59 23:59 23:59 Intake Total 1150 / 1150 3076.0 / 3076.0 Output Total 400 / 400 740 / 740 Balance 750 / 750 2336.0 / 2336.0 Lab / Micro Data 09/23/23 06:10 09/23/23 02:40 Labs: Laboratory Results - last 24 hr 09/22/23 02:40: WBC 12.7 H, RBC 4.06 L, Hgb 11.7 L, Hct 36.0 L, MCV 88.7, MCH 28.8, MCHC 32.5, RDW Std Deviation 40.0, RDW Coeff of Mikhail 12.3, Plt Count 296, MPV 8.7, Immature Gran % (Auto) 0.600, Neut % (Auto) 90.6 H, Lymph % (Auto) 7.1 L, Laramie % (Auto) 1.3, Eos % (Auto) 0.1, Baso % (Auto) 0.3, Absolute Neuts (auto)11.5 H, Absolute Lymphs (auto) 0.91, Nucleated RBC % 0 09/22/23 18:45: WBC 8.7, RBC 4.84, Hgb 14.1, Hct 42.3, MCV 87.4, MCH 29.1, MCHC 33.3, RDW Std Deviation 39.6, RDW Coeff of Mikhail 12.3, Plt Count 346, MPV 8.9, Immature Gran % (Auto) 0.200, Neut % (Auto) 62.0, Lymph % (Auto) 27.3, Laramie % (Auto) 8.1, Eos % (Auto) 1.9, Baso % (Auto) 0.5, Absolute Neuts (auto) 5.4, Absolute Lymphs (auto) 2.39, Nucleated RBC % 0, Sodium 138, Potassium 3.7, Chloride 107, Carbon Dioxide 27.0, Anion Gap 4 L, BUN 13, Creatinine 0.74, Estim Creat Clear Calc 93.87, Est GFR (MDRD) Af Amer 112, Est GFR (MDRD) Non-Af 92, BUN/Creatinine Ratio 17.6, Glucose 85, Calcium 9.2 09/22/23 19:17: Urine Color Red, Urine Clarity Cloudy, Urine pH 6.5, Ur SpecificGravity 1.010, Urine Protein 500 H, Urine Glucose (UA) Normal, Urine Ketones 5 H, Urine Occult Blood 250 H, Urine Nitrite Negative, Urine Bilirubin Negative, Urine Urobilinogen Normal, Ur Leukocyte Esterase 100 H, Urine RBC > 100 SEEN, Urine WBC 5-10 SEEN, Ur Squamous Epith Cells 0-5 SEEN, Amorphous Sediment 1+ URATE, Urine Bacteria 0 SEEN, Urine Mucus 0 SEEN 09/23/23 02:40: Sodium 141, Potassium 4.2, Chloride 111 H, Carbon Dioxide 24.0, Anion Gap 6, BUN 10, Creatinine 1.12 H, Estim Creat Clear Calc 65.31, Est GFR (MDRD) Af Amer 69, Est GFR (MDRD) Non-Af 57 L, BUN/Creatinine Ratio 8.9 L, Glucose 153 H, Calcium 7.4 L 09/23/23 06:10: WBC 12.7 H, RBC 4.14 L, Hgb 12.1, Hct 37.3, MCV 90.1, MCH 29.2, MCHC 32.4, RDW Std Deviation 40.9, RDW Coeff of Mikhail 12.4, Plt Count , MPV 9.9, Immature Gran % (Auto) 1.700 H, Neut % (Auto) 90.5 H, Lymph % (Auto) 5.8 L, Laramie% (Auto) 1.7, Eos % (Auto) 0.1, Baso % (Auto) 0.2, Absolute Neuts (auto) 11.5 H,Absolute Lymphs (auto) 0.74 L, Nucleated RBC % 0, Platelet Estimate ADEQUATE Micro: Microbiology 09/22/23 23:28 Incision/Surgical Site Gram Stain - Final Radiography Diagnostic Testing: Radiology Impression Pelvis CT 09/22/23 19:06 IMPRESSION: Pelvic abscess measures 57 x 35 mm. N.B. : The above Results were Read Back by Kwaku Wilson MD to Jez Fountain MD, and understanding confirmed on 09/22/2023 20:27:31 (ET). Electronically Signed: Kwaku Wilson MD at 19:51 EDT , Physical Exam Const alert and no apparent distress Constitutional Narrative: She appears well and is on her phone upon entering the room and resting comfortably General Appearance: comfortable HEENT normocephalic Resp normal respiratory effort GI soft to palpation and non-distended GI Narrative: No rebounding, no guarding, no rigidity. +Moderate tenderness across lower pelvis and mostly in RLQ. Incision are c/d/i. MARYAM drain with about 10 cc of SS fluid present Assessment & Plan (1) S/P hysterectomy: (2) Dehiscence of vaginal cuff: (3) Post-operative state: PLAN: At bedside to check on pt given pain. Currently receiving Oxycodone q 4 hours and Ibuprofen q 6 hours. Discussed option for IV Dilaudid for breakthroughbut pt does not want additional pain medication at this time. WBC slightly elevated and likely due to being post op. Hemoglobin stable. Elevation in serum Creatinine likely secondary to Zosyn. Abdominal exam is not acute and pt is wellappearing. CT scan report from admission reviewed and unremarkable other than abscess noted. She remains afebrile and VSS. Stat repeat labs ordered. Discussedwith pt pending labs and pain control throughout the day, may need repeat CT scan. Encouraged continued ambulation. 09/23/23 1256 <Electronically signed by Rosenda Valencia DO> Cosigner Signature (if applicable): CC: ~ Signed [facility] Work Phone: 1(928) 913-623804-01-2024 Procedure [facility] 09-23-2023 Progress note Author Rosenda Valencia [facility] September 23, 2023 8:39am Note Date/Time September 23, 2023 8:39 am [facility] Medical Records Department [address] [place] [id number] Progress Note - OBGYN 09/23/23 0834 MR#: [id number] Acct: [id number] Name: YAMIL NG Rep #:[id number] : 1985 38 From: Rosenda Valencia DO PCP: Care Physician,No Primary Status :[facility] Location: [place] [address] Subjective Subjective Patient doing ok this morning. She has lower pelvic and vaginal pain. Pain is controlled. Ambulating without difficulty. With urination she feels it is difficult to initiate a urinary stream due to pain and discomfort when up out ofbed. Vaginal bleeding scant. Denies fevers, chills, CP, SOB, leg pain, lightheadedness, dizziness. South clear liquids without N/V. Not yet passing flatus. Objective Data Objective Data Vital Signs: Vital Signs Temp Pulse Resp BP Pulse Ox O2 Del Method O2 Flow Rate 97.5 F L 67 14 91/66 100 Room Air 1 09/23/23 02:43 09/23/23 02:43 09/23/23 02:43 09/23/23 02:43 09/23/23 02:43 09/23/23 07:53 09/23/23 04:29 Oxygen Flow Rate (L/min) 1 Oxygen Delivery Method Room Air Weight: 168 lb 3.403 oz Body Mass Index (BMI) 29.7 Intake & Output: Intake and Output for Last 24 Hours 09/21/23 09/22/23 09/23/23 23:59 23:59 23:59 Intake Total 1150 / 1150 2093.5 / 2093.5 Output Total 400 / 400 740 / 740 Balance 750 / 750 1353.5 / 1353.5 Lab / Micro Data 09/22/23 18:45 09/23/23 02:40 Labs: Laboratory Results - last 24 hr 09/22/23 02:40: WBC 12.7 H, RBC 4.06 L, Hgb 11.7 L, Hct 36.0 L, MCV 88.7, MCH 28.8, MCHC 32.5, RDW Std Deviation 40.0, RDW Coeff of Mikhail 12.3, Plt Count 296, MPV 8.7, Immature Gran % (Auto) 0.600, Neut % (Auto) 90.6 H, Lymph % (Auto) 7.1 L, Laramie % (Auto) 1.3, Eos % (Auto) 0.1, Baso % (Auto) 0.3, Absolute Neuts (auto)11.5 H, Absolute Lymphs (auto) 0.91, Nucleated RBC % 0 09/22/23 18:45: WBC 8.7, RBC 4.84, Hgb 14.1, Hct 42.3, MCV 87.4, MCH 29.1, MCHC 33.3, RDW Std Deviation 39.6, RDW Coeff of Mikhail 12.3, Plt Count 346, MPV 8.9, Immature Gran % (Auto) 0.200, Neut % (Auto) 62.0, Lymph % (Auto) 27.3, Laramie % (Auto) 8.1, Eos % (Auto) 1.9, Baso % (Auto) 0.5, Absolute Neuts (auto) 5.4, Absolute Lymphs (auto) 2.39, Nucleated RBC % 0, Sodium 138, Potassium 3.7, Chloride 107, Carbon Dioxide 27.0, Anion Gap 4 L, BUN 13, Creatinine 0.74, EstimCreat Clear Calc 93.87, Est GFR (MDRD) Af Amer 112, Est GFR (MDRD) Non-Af 92, BUN/Creatinine Ratio 17.6, Glucose 85, Calcium 9.2 09/22/23 19:17: Urine Color Red, Urine Clarity Cloudy, Urine pH 6.5, Ur SpecificGravity 1.010, Urine Protein 500 H, Urine Glucose (UA) Normal, Urine Ketones 5 H, Urine Occult Blood 250 H, Urine Nitrite Negative, Urine Bilirubin Negative, Urine Urobilinogen Normal, Ur Leukocyte Esterase 100 H, Urine RBC > 100 SEEN, Urine WBC 5-10 SEEN, Ur Squamous Epith Cells 0-5 SEEN, Amorphous Sediment 1+ URATE, Urine Bacteria 0 SEEN, Urine Mucus 0 SEEN 09/23/23 02:40: Sodium 141, Potassium 4.2, Chloride 111 H, Carbon Dioxide 24.0, Anion Gap 6, BUN 10, Creatinine 1.12 H, Estim Creat Clear Calc 65.31, Est GFR (MDRD) Af Amer 69, Est GFR (MDRD) Non-Af 57 L, BUN/Creatinine Ratio 8.9 L, [id number] H, Calcium 7.4 L Physical Exam Const alert and no apparent distress General Appearance: comfortable HEENT normocephalic Resp normal respiratory effort GI soft to palpation and non-distended GI Narrative: Moderate tenderness across lower pelvis. No rebounding, no guarding, no rigidity. Non acute. Incisions c/d/i. MARYAM drain with minimal SS drainage. Extremity normal to inspection and no calf tenderness Extremity Narrative: SCD's in place Assessment & Plan (1) Post-operative state: PLAN: POD#1 s/p repair of vaginal cuff dehiscence. Repeat blood work ordered forthis morning, and tomorrow morning. Cont antibiotics for [address] results not back so will call radiology today for a final read. Anticipate possible discharge to home tomorrow. Reviewed post operative restrictions. (2) Dehiscence of vaginal cuff: (3) S/P hysterectomy: 09/23/23 0839 <Electronically signed by Rosenda Valencia DO> Cosigner Signature (if applicable): CC: ~ Signed [facility] Work Phone: [phone]) 685-577704-01-2024 Discharge summary Author Larry Gamble [facility] September 22, 2023 10:30pm Note Date/Time September 22, 2023 6:5 1pm [facility] Medical Records Department [address] [place] [address] Emergency Department Summary 09/22/23 MR#: [id number] Acct: [id number] Name: YAMIL NG Rep #:[id number] : 1985 38 From: Jose Guadalupe MOYA PCP: Care Physician,No Primary Status :[facility] Location: [place] [address] HPI <NITA Vela - Last Filed: 09/22/23 21:19> HPI - Female History of Present Illness Chief Complaint: Vag Bleeding Narrative Narrative: Patient is a 38-year-old female with history of epilepsy who takes Keppra, who presents to the emergency department with vaginal bleeding. Patient had a hysterectomy where the uterus was removed, however patient still has her ovarieson September 04, 2023. Patient did have some bleeding on 16 September which was 5 days ago, saw Dr. Acunain the office, there might have been some sutures that have been dislodged, however the bleeding did stop, they were able to perform a medication swab in the area. Patient states that roughly 3 hours ago, while not being active, she had sudden onset of significant bleeding where she is going through 3 pads in 1 hour. She is here for evaluation. She states to have some lower abdominal cramping. PFSH <NITA Vela - Last Filed: 09/22/23 21:19> [facility] Medical History (Updated 09/22/23 @ 21:19 by NITA Vela) Anxiety Epilepsy Ganglion cyst Ureteral stone Home Medications levetiracetam 500 mg tablet 1,000 mg PO BID 08/25/21 [History Last Taken Unknown] Allergy/AdvReac Type Severity Reaction Status Date / Time Bleach (Sodium Hypochlorite) Allergy Hives Verified 09/22/23 18:30 lamotrigine [From Lamictal] Allergy Rash Verified 09/22/23 18:30 tree and shrub pollen Allergy Hives Verified 09/22/23 18:30 Surgical History (Updated 09/22/23 @ 21:12 by Mily Vásquez) H/O right knee surgery H/O: hysterectomy Previous section Social History household members: spouse Smoking Status: Never smoker substance use type: does not use ROS <NITA Vela - Last Filed: 09/22/23 21:19> ROS ED ROS Narrative Constitutional: Negative for fever, chills, weight loss, weakness Eyes: Negative for vision loss, vision change, double vision ENT: Negative for any sore throat, ear pain, congestion Cardiovascular: Negative for any chest pain, tightness, palpitations Respiratory: Negative for any cough, sputum production, hemoptysis, dyspnea, dyspnea on exertion, orthopnea Gastrointestinal: Negative for any nausea, vomiting, diarrhea, constipation, blood in stool, blood in vomit. Positive for lower abdominal pain : Negative for any urinary frequency, dysuria, retention, blood in urine. Positive vaginal bleeding Muscle skeletal: Negative for any neck pain, back pain Neurological: Negative for any headache, syncope, dizziness Skin: Negative for any rashes, itching, abrasions, lacerations Psychiatric: Negative for any depression, anxiety, stress, suicidal ideation, homicidal ideation Hematologic: Negative for any excessive bruising, easy bleeding EXAM <NITA Vela - Last Filed: 09/22/23 21:19> Physical Exam Narrative Exam Narrative: Vital signs reviewed. Patient is in no obvious distress. Patient's vital signs are stable. HEET: Head normocephalic atraumatic, TMs clear bilaterally. Posterior pharynx is clear, moist mucous membranes. Nares clear bilaterally. Neck: Supple with no lymphadenopathy or tenderness. No signs of meningismus. Cardiac: Regular rate and rhythm no murmurs gallops or rubs, equal peripheral pulses bilaterally. Respiratory: Lungs clear to auscultation bilaterally. No chest tenderness. Abdomen: Soft, nondistended. No abdominal bruit or pulsatile masses. No hepatosplenomegaly. Tenderness to the left lower abdomen, no peritoneal signs. Extremities: No peripheral edema, no signs of gross trauma or deformity. Activefull range of motion of all extremities. Neuro: Cranial nerves II through XII intact, no focal neurological deficits. Skin: Clean dry and intact with no rash, purpura, petechiae, vesicles or pustules. Backs/flank: No CVA tenderness, no midline spinal tenderness, no deformity. Psych: Normal mood and affect. No SI, HI or acute psychosis. Const Vital Signs: 09/22/23 18:26 09/22/23 21:00 Temperature 97.2 F L Temperature Source Temporal Pulse Rate 74 Respiratory Rate 16 Blood Pressure 106/79 122/78 H Blood Pressure Mean 88 92 Pulse Ox 100 Oxygen Delivery Method Room Air Positive well nourished and well developed General Appearance ED: well developed <Dr. Larry Gamble MD - Last Filed: 09/22/23 19:22> Physical Exam Const Vital Signs: 09/22/23 18:26 09/22/23 21:00 Temperature 97.2 F L Temperature Source Temporal Pulse Rate 74 Respiratory Rate 16 Blood Pressure 106/79 122/78 H Blood Pressure Mean 88 92 Pulse Ox 100 Oxygen Delivery Method Room Air MDM <NITA Vela - Last Filed: 09/22/23 21:19> MDM Lab Data Labs: Laboratory Results - last 24 hr 09/22/23 09/22/23 18:45 19:17 WBC 8.7 RBC 4.84 Hgb 14.1 Hct 42.3 MCV 87.4 MCH 29.1 MCHC 33.3 RDW Std Deviation 39.6 RDW Coeff of Mikhail 12.3 Plt Count 346 MPV 8.9 Immature Gran % (Auto) 0.200 Neut % (Auto) 62.0 Lymph % (Auto) 27.3 Laramie % (Auto) 8.1 Eos % (Auto) 1.9 Baso % (Auto) 0.5 Absolute Neuts (auto) 5.4 Absolute Lymphs (auto) 2.39 Nucleated RBC % 0 Sodium 138 Potassium 3.7 Chloride 107 Carbon Dioxide 27.0 Anion Gap 4 L BUN 13 Creatinine 0.74 Estim Creat Clear Calc 93.87 Est GFR (MDRD) Af Amer 112 Est GFR (MDRD) Non-Af 92 BUN/Creatinine Ratio 17.6 Glucose 85 Calcium 9.2 Urine Color Red Urine Clarity Cloudy Urine pH 6.5 Ur Specific Noble 1.010 Urine Protein 500 H Urine Glucose (UA) Normal Urine Ketones 5 H Urine Occult Blood 250 H Urine Nitrite Negative Urine Bilirubin Negative Urine Urobilinogen Normal Ur Leukocyte Esterase 100 H Urine RBC > 100 SEEN Urine WBC 5-10 SEEN Ur Squamous Epith Cells 0-5 SEEN Amorphous Sediment 1+ URATE Urine Bacteria 0 SEEN Urine Mucus 0 SEEN Treatment and Re-Evaluation Narrative: Patient is in no obvious respiratory distress vital signs are stable. Patient presents to the emergency department with complaints of vaginal bleeding post hysterectomy on September 04, 2023. This is the patient's second time bleeding. Differential diagnosis includes surgical hemorrhage, fibroid, dehiscence of any sutures, tearing. I did speak with on-call PERIPHERAL VASCULAR TECH. They recommended a CT scan of the pelvis withIV contrast, I will to perform a pelvic exam. Patient was offered analgesic however refused at this time. Patient given IV fluids. Currently waiting for callback from PERIPHERAL VASCULAR TECH specialty. Laboratory values were unremarkable, hemoglobin 14.1, chemistries were unremarkable. I did perform a pelvic exam, however unfortunately there was so much blood, clot I cannot visualize any landmarks. I could not see the cuff. Ispoke with Dr. Zeng regarding this. Radiologist call and speak with attending. Apparently there is a pelvic abscess. At this time, patient will begoing to surgery by Dr. Zeng. I spoke with her, she will take the patient, I did offer to start antibiotics here however she would prefer to do it over in surgery because she will be given presurgery antibiotics. I spoke with the patient who is in agreement. <Dr. Larry Gamble MD - Last Filed: 09/22/23 19:22> [facility] Narrative Medical decision making narrative: I have personally performed a face to face assessment of the patient and have reviewed the EVERETTE Note. I performed a substantive portion of the visit including all aspects of the following. My bhat findings include: History is spontaneous recurrent postoperative bleeding from the vagina since she had a hysterectomy. When she had a small minor bleeding earlier, her OB/GYNwas able to see the source of the bleeding that may have been related to a stitch and apply TXA to make it stop but it recurred again today and was heavy. Little lightheadedness, some abdominal pain, but no syncope. Exam is well-appearing, mildly tender lower abdomen but no surgical signs on exam. X Medical Decison Making: Check blood counts, give IV fluids and analgesics as needed, perform pelvic, CT to rule out disruption of the seal at the cuff, and discussed with PERIPHERAL VASCULAR TECH. Other additions or changes: [None] Lab Data Labs: Laboratory Results - last 24 hr 09/22/23 09/22/23 18:45 19:17 WBC 8.7 RBC 4.84 Hgb 14.1 Hct 42.3 MCV 87.4 MCH 29.1 MCHC 33.3 RDW Std Deviation 39.6 RDW Coeff of Mikhail 12.3 Plt Count 346 MPV 8.9 Immature Gran % (Auto) 0.200 Neut % (Auto) 62.0 Lymph % (Auto) 27.3 Laramie % (Auto) 8.1 Eos % (Auto) 1.9 Baso % (Auto) 0.5 Absolute Neuts (auto) 5.4 Absolute Lymphs (auto) 2.39 Nucleated RBC % 0 Sodium 138 Potassium 3.7 Chloride 107 Carbon Dioxide 27.0 Anion Gap 4 L BUN 13 Creatinine 0.74 Estim Creat Clear Calc 93.87 Est GFR (MDRD) Af Amer 112 Est GFR (MDRD) Non-Af 92 BUN/Creatinine Ratio 17.6 Glucose 85 Calcium 9.2 Urine Color Red Urine Clarity Cloudy Urine pH 6.5 Ur Specific Noble 1.010 Urine Protein 500 H Urine Glucose (UA) Normal Urine Ketones 5 H Urine Occult Blood 250 H Urine Nitrite Negative Urine Bilirubin Negative Urine Urobilinogen Normal Ur Leukocyte Esterase 100 H Urine RBC > 100 SEEN Urine WBC 5-10 SEEN Ur Squamous Epith Cells 0-5 SEEN Amorphous Sediment 1+ URATE Urine Bacteria 0 SEEN Urine Mucus 0 SEEN Discharge Plan Triage Chief Complaint: Vag Bleeding ED Midlevel Provider: Jose Guadalupe Nieto ED Provider: Larry Gamble Dx/Rx/DC Orders Clinical Impression: Abscess of female pelvis, Abnormal vaginal bleeding Primary Care Provider: Care Physician,No Primary Disposition Disposition: Acute Care Hospital [facility] What to do if you have Problems For any increased pain, shortness of breath, bleeding, nausea or vomiting, chest pain, or any unexpected problems, contact your Primary Care Provider. Call [facility] ([phone]) or report to the closest Emergency Room. Call 911 if necessary. 09/22/232214 <Electronically signed by Jose Guadalupe MOYA> Cosigner Signature (if applicable): 09/22/232229 <Electronically signed by Larry Gamble MD> CC: No Primary Care Physician ~ Signed [facility] Work Phone: [phone]) 392-838003-31-2024 History and physical note Author Foreign calvo [facility] September 22, 2023 8:54pm Note Date/Time September 22, 2023 8:5 4pm [facility] Medical Records Department [address] [place] [address] History & Physical Exam 09/22/232047 MR#: [id number] Acct: [id number] Name: YAMIL NG Rep #:[id number] : 1985 38 From: Janay Zeng MD PCP: Care Physician,No Primary Status :[facility] Location: [facility] History and Physical Date of Admission: 09/22/23 38-year-old female status post LAVH at [facility] on 09/04/2023 -reports hadsome bleeding on 09/17/23 was seen in the office had silver nitrate applied to her vaginal cuff and has since been doing fine. States today had heavy bleedingthat began recently passing large clots. Patient states she is starting to feeldizzy when ambulating. She is having some cramping in the lower abdomen. She denies any fevers or abnormal vaginal discharge. She denies having anything inside the vagina or straining. She states no difficulty with urination or bowel movements. Patient offers no other concerns at this time. Exam: female in NAD abd: soft, non distended, non tender to palpation VE: Speculum - Large amount of bright red blood in vagina- large clots expelled-approximately 100cc expelled from vagina. Unable to see any active oozing from cuff. On palpation of cuff possible defect but difficult to see on speculum. a/p: 38yo s/p LAVH on 09/04/23 with delayed post vaginal bleeding 1) discussed with patient and significant other recommendation for return to [facility] for exam under anesthesia with possible revision of vaginal cuff with diagnostic laparoscopy as there is significant amount of bleeding. Patient agreeable consent was signed. Risks were reviewed with the patient. Consent for blood products. 2) ancef 2 grams PRE OP 3) Nursing film editor supervisor notified and anesthesia notified. 09/22/232053 <Electronically signed by Janay Zeng MD> Cosigner Signature (if applicable): CC: Foreign Robb; No Primary Care Physician~ Signed [facility] Work Phone: 1(482) 130-297703-31-2024 [facility] Medical Records Department [address] [place] [address] History Physical Exam 09/22/232047 MR#: [id number] Acct: [id number] Name: YAMIL NG Rep #: [id number] : 1985 38 From: Janay Zeng MD PCP: Care Physician,No Primary Status:[facility] Location: [facility] History and Physical Date of Admission: 09/22/23 38-year-old female status post LAVH at [facility] on 09/04/2023 -reports had some bleeding on 09/17/23 was seen in the office had silver nitrate applied to her vaginal cuff and has since been doing fine. States today had heavy bleeding that began recently passing large clots. Patient states she is starting to feel dizzy when ambulating. She is having some cramping in the lower abdomen. She denies any fevers or abnormal vaginal discharge. She denies having anything inside the vagina or straining. She states no difficulty with urination or bowel movements. Patient offers no other concerns at this time. Exam: female in NAD abd: soft, non distended, non tender to palpation VE: Speculum - Large amount of bright red blood in vagina- large clots expelled- approximately 100cc expelled from vagina. Unable to see any active oozing from cuff. On palpation of cuff possible def ect but difficult to see on speculum. a/p: 38yo s/p LAVH on 09/04/23 with delayed post vaginal bleeding 1) discussed with patient and significant other recommendation for return to the OR for exam under anesthesia with possible revision of vaginal cuff with diagnostic laparoscopy as there is signi ficant amount of bleeding. Patient agreeable consent was signed. Risks were reviewed with the patient. Consent for blood products. 2) ancef 2 grams PRE OP 3) Nursing film editor supervisor notified and anesthesia notified. 09/22/232053 Cosigner Signature (if applicable): CC: Foreign Robb; No [facility] History of Present illness Narrative * Temitope Acuna MD - 09/17/2023 2:16 PM EDT DATE OF SERVICE: 09/17/2023 PROBLEM: Yamil Ng presents for postop visit. SURGERY & DATE: 09/04/23 [facility] bilateral salpingectomy PATHOLOGY: benign SUBJECTIVE/INTERVAL HISTORY: Yamil Ng reports that she feels well. started bleeding vaginally today and had some bright red and small clot about quarter size then slowed down. OBJECTIVE: Abdomen soft, non-tender, no hepatosplenomegaly. incisions intact PELVIC: cuff intact, phsyiological discharge, no active bleeding but small oozing from midline cuff. Touched w/ silver nitrate then swabbed and no further bleeding ASSESSMENT: postop [facility] PLAN: 1. Discussed results of pathology and implications with patient. 2. Postop restrictions reviewed. if heavier bleeding notivy office Temitoep Acuna MD [facility] History of Present illness Narrative* Temitope Acuna MD - 09/11/2023 9:50 AM EDT DATE OF SERVICE: 09/11/2023 PROBLEM: Yamil Ng presents for postop visit. SURGERY & DATE: 09/04/23 [facility] bilateral salpingectomy PATHOLOGY: benign SUBJECTIVE/INTERVAL HISTORY: Yamil Ng reports that she feels well. No fever or chills. No shortness of breath, cough, or chest pain. No incisional redness, swelling, or drainage. Patient reports that her appetite is fair. .Rash over abdomen and legs over past few days, not worsening but OTC benadryl and zyrtec not helping. .No new products or exposures other than surgery. Not taking any pain meds OBJECTIVE: ABDOMEN: Abdomen soft, non-tender, no hepatosplenomegaly. Incisions healing well. PELVIC: deferrred Skin w/ raised pink rash fdiffusely arms, legs and trunk ASSESSMENT: postop visit, allergic reaction PLAN: 1. Discussed results of pathology and implications with patient. 2. Postop restrictions reviewed. rash- d/w her symptomatic measures and steroid taper offered and she accepts Temitope Acuna MD documented in this encounterTr[facility]03-18-2024 Miscellaneous Notes* Telephone Encounter - Ashley Oh RN - 09/09/2023 10:21 AM EDT Images from the original note were not included. Patient notified. DANYELLE Owen Rebecca L, MD You 22 minutes ago (9:58 AM) Could be from the prep or the drapes. would use local steroid and benadryl or zyrtec. If worsens schedule here or pcp * Telephone Encounter - Ashley Oh RN - 09/09/2023 9:23 AM EDT Patient had LAVH 09/03. Calling because she developed a rash all over abdomen, chest, back, legs andarms last night around 6pm. She has not tried any new lotions, soaps detergents or foods. She only had children's benadryl , so she did take some of that last night after a shower and didn't notice any improvement. Asking if this could be anything related to surgery or if she should see PCP or urgent care if needed? Ashley Oh RN documented in this encounterTr[facility]03-14-2024 Miscellaneous Notes* Telephone Encounter - Ashley Oh RN - 09/05/2023 4:43 PM EDT Patient did have the scopolamine patch and removed it at home. She will notify office if there's noimprovement. Ashley Oh RN * Telephone Encounter - Rosenda Valencia MD - 09/05/2023 3:40 PM EDT Did patient have scopolamine patch placed for surgery? If so could be related to that * Telephone Encounter - Aslhey Oh RN - 09/05/2023 3:08 PM EDT Patient had LAVH yesterday with RR. Ashley Oh RN documented in this encounterTr[facility]03-14-[facility] History of Present illness Narrative* Dennise Gonzalez DO - 09/05/2023 1:51 PM EDT Images from the original note were not included. Reason for Visit/Chief Complaint Yamil Ng is a 38 year old female who presents today for a new evaluation of following complaint: Patient presents with: Right Knee - Established Patient, Knee Pain History of Present Illness: PAIN EVALUATION 09/05/2023 1223 Pain Level: 5 Pain Location: Knee-Right Description: Aching;Sharp;Shooting;Stabbing;Other: See comment Duration Amount of Time: 7 Duration Units: Weeks Frequency: Continuous Intervention/Comfort measure: Other: See comment Comments: Nothing helps HPI: Yamil Ng is a 38 year old female presenting today with R knee pain. Pain history is noted as above. Patient is s/p R knee arthroscopic plicae excision by Dr. Judge on 02/10/21. No injury post surgery. Started with swelling and pain 6 months ago. Pain is constant. Swelling is intermittent, worse towards the end of the day after she comes home from work. 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 Swelling right knee and painful medial/plica area. Previous Treatments: Ice: Yes Heat: Yes Brace: Yes, OTC compression sleeve NSAIDs: Yes, ibuprofen Injections: No Surgeries: Yes, see above Physical Therapy: No Review of Systems: Patient did not have, and does not currently have, any weight loss, malaise, fever, chills, headache, chest pain, chest pressure, palpitations, cough, shortness of breath, orthopnea, paroxsymal nocturnal dyspnea, nausea, vomiting, diarrhea, constipation, melena, hematochezia, urinary difficulties, prolonged bleeding, easily bruising, heat or cold intolerance, new onset joint pain or swelling, newonset extremity weakness or numbness, new onset auditory or visual disturbances, lightheadedness, dizziness, partial loss of consciousness or full loss of consciousness. Current Outpatient Medications on File Prior to Visit Medication Sig acetaminophen (TYLENOL EXTRA STRENGTH) 500 mg tablet Take 2 tablets by mouth every 6 hours as needed for pain. ibuprofen (MOTRIN) 600 mg tablet Take 1 tablet by mouth every 6 hours as needed for pain. oxyCODONE IR (ROXICODONE) 5 mg immediate release tablet Take 1 tablet by mouth every 6 hours as needed for pain for up to 3 days. ondansetron (ZOFRAN) 4 mg tablet Take 1 tablet by mouth every 8 hours as needed for nausea/vomiting. lacosamide (VIMPAT) 100 mg tab Take 1 tablet by mouth two times a day for 180 days. propranolol (INDERAL) 10 mg tablet Take 1 tablet by mouth three times a day. (Patient not taking: Reported on 08/26/2023) [DISCONTINUED] topiramate (TOPAMAX) 25 mg tablet Take by mouth. One tablet twice daily for a week; then two tablets twice daily thereafter. levETIRAcetam (KEPPRA) 1,000 mg tablet Take 1 tablet by mouth two times a day. ondansetron (ZOFRAN) 4 mg tablet Take 1 tablet by mouth every 8 hours as needed for nausea/vomiting. No current facility-administered medications on file prior to visit. ALLERGIES Allergen Reactions Bleach (Sodium Hypo* Rash Lamictal [Lamotrigi* Rash [place] [Trees] Rash, Hives Topiramate Rash Physical Exam: Vitals: LMP 07/17/2023 Psych: Pleasant, good affect and mood General Appearance: Well appearing, alert, in no acute distress, well-hydrated, well nourished.. Skin: Skin color, texture, turgor normal, no suspicious rashes or lesions. Peripheral Pulses: Normal. Neurologic: Gait normal. Reflexes normal and symmetric. Sensation grossly intact.. Lymph Nodes: No cervical lymphadenopathy, No supraclavicular lymphadenopathy, No axillary lymphadenopathy., and No inguinal lymphadenopathy.. Respiratory: No recent pulmonary infection, hemoptysis, chronic cough, or shortness of breath at rest Rheumatologic: Joint deformities: right knee pain Right Knee Exam Tenderness The patient is experiencing tenderness in the medial joint line and medial retinaculum. Range of Motion Extension: normal Flexion: normal Tests Darlyn: Anterior - negative Posterior - negative Drawer: Anterior - negative Posterior - negative Other Erythema: absent Sensation: normal Pulse: present Swelling: none Comments: Limited exam d/t recent hysterectomy Left Knee Exam Left knee exam is normal. Muscle Strength The patient has normal left knee strength. Tenderness The patient is experiencing no tenderness. Range of Motion Extension: normal Flexion: normal Tests Darlyn: Anterior - negative Posterior - negative Drawer: Anterior - negative Posterior - negative Other Erythema: absent Sensation: normal Pulse: present Swelling: none Comments: Neg homans bilaterally Imaging: Last XR Knee - Impression Only XR KNEE GENERAL 4V AP BOTH/PA BOTH/LAT/MERC RIGHT Exam End: 10/11/2022 2:10 PM (Final result) Impression: IMPRESSION: Findings are suggestive of mild degenerative changes in the right knee. Binitrotoluene Operator: GILDARDO Transcribe Date/Time: Oct 11 2022 2:15P Dictated by : BENNIE NORIEGA MD... ' Assessment and Plan: Impression: Encounter Diagnosis ICD-10-CM 1. Acute pain of right knee M25.561 CONSULT TO PHYSICAL THERAPY 2. 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 We discussed strategies for decreasing pain and improving strength, stability and motion. Patient's questions were answered in detailed. Patient verbalizes understanding and agrees with the treatment plan as discussed. H/o surgery right knee- plica right excision When cleared would get an injection, did discuss difficult to do even a physical exam due to her inability to secondary to her recent surgery To the fact that she has had recurrent knee effusion we will probably aspirate her knee and make sure nothing else is going on systemically She could also follow-up with her primary care doctor and if pain continues to see us for steroid injection vs advanced imaging which at this point she cannot get either d/t recent (yesterday) surgery Ninakris disclaimer comment: Please note this report has been produced using speech recognition software and may contain errors related to that system including errors in grammar, punctuation, and spelling, as well as words and phrases that may be inappropriate. If there are any questions or concernsplease feel free to contact the dictating provider for clarification. Dennise Gonzalez D.O. M.P.H. documented in this encounterTr[facility]03-11-2024 Instructions* Patient Instructions* Alicia Delatorre APRN.TRACK WATCHMAN - 09/02/2023 1:45 PM EDT PATIENT PREOPERATIVE INSTRUCTIONS Temitope Acuna MD has scheduled you for your procedure at this surgery center: [facility]: [phone] -- [address] [address]. Please read below carefully for your personalized instructions. Arrival Time for Surgery: - The Surgery Center or hospital where you are having surgery will call the afternoon before surgery (or Saturday for Saturday surgery) with a scheduled arrival time. - If you have not heard by 4 pm, please contact the surgery center above. Dietary Restrictions: - No solid food after midnight. - You may have 12 ounces of clear liquids (water, clear juices such as apple juice or gatorade, carbonated beverages, clear tea, black coffee, jello) until 2 hours before scheduled arrival at facility. - Do not drink any alcohol after midnight the night before your surgery. Medications: Unless instructed differently below, stay on all of your medications until your surgery. If you start any new medications after today's visit, please contact your surgeon. Pre-Surgery Med Instructions Medication Instructions lacosamide (VIMPAT) 100 mg tab Take the day of surgery with a small sip of water levETIRAcetam (KEPPRA) 1,000 mg tablet Take the day of surgery with a small sip of water ondansetron (ZOFRAN) 4 mg tablet Take the day of surgery with a small sip of water Is Patient Diabetic:No If you start any new medications after today's visit, please contact the surgeon's office. Blood Thinning Medications: - Stop NSAIDS (Ibuprofen, Advil, Aleve, Motrin, Celebrex, Mobic, etc.) 7 days before surgery, as directed by your surgeon. - Stop Aspirin 7 days before surgery, as directed by your surgeon. - Stop Vitamin E, ALL multi-vitamins, herbals and dietary supplements 14 days before surgery. - You may take Tylenol (Acetaminophen) or any of your pain medications that do not contain aspirin or NSAIDS as needed. Important Reminders: - If you use CPAP/BIPAP, bring the machine with you to the surgery center. - If you are prescribed inhalers for breathing, continue using them. -Please be sure to brush your teeth and you can use mouth wash or rinse your mouth if dry. - Candy, mints, and tobacco products are NOT permitted the morning of surgery. - Hearing aids, dentures and glasses may be worn the morning of surgery. - NO jewelry, body piercings, makeup, hairpins or contacts are to be worn the day of surgery. If you develop symptoms such as a fever, cold, or flu, or have other changes to your health within TWO DAYS of scheduled surgery or the morning of surgery, please contact the surgery center above. Personal Belongings: -Please have photo ID and insurance cards. -If you do not have a copy of advance directives on file with us, please bring a copy with you on the day of surgery. - Leave ALL valuables and money at home or with family members. For Outpatient Procedures: - YOU MUST HAVE A RESPONSIBLE [place] BI CONSULTANT TAKE YOU HOME. A STEWARD/STEWARDESS WINE OR LAMP SHADES SUPERVISOR CANNOT BE MADE A RESPONSIBLE [place] BI CONSULTANT. - We recommend that a responsible person stays with you overnight to take care of you. - You cannot stay in a hotel alone after outpatient surgery. You will not be permitted to have yoursurgery, if you do not have someone to take care of you. Please be aware that emergency situations arise, which may delay or change your surgical time. If this happens, we will notify you as soon as possible and regret any inconvenience. If you already have an Advance Directive, please fax a copy to [phone] or email to for it to be added to your chart. If you do not have an Advance Directive, you can find the appropriate form and more information at [email or web address]. We recommend that youcomplete the Advance Directive form found on the website and bring it with you the day of your surgery. It can be witnessed and scanned into your chart that day. Alicia Delatorre APRN.CNP documented in this encounterTrinity [facility]03-11-2024 History and physical note * Alicia Delatorre APRN.CNP - 09/02/2023 1:37 PM EDT HISTORY AND PHYSICAL EXAMINATION SERVICE DATE: 09/02/2023 SERVICE TIME: 1:55 PM PRIMARY CARE PHYSICIAN: Adrianne Ignacio MD Assessment Patient has the following medical conditions which may affect armando-operative course: Focal epilepsy (HCC) Assessment: follows with neurology, Dr. Reddy Compliant on keppra. Reports last seizure occurred 5 months ago, usually occurring every 8-9months. URI (obstructive sleep apnea) Assessment: non Compliant on device. PONV (postoperative nausea and vomiting) Assessment: Reports from prior procedures. Requesting antiemetics for control of N/V. GERD (gastroesophageal reflux disease) Assessment: Controlled on rx. Advised avoidance of triggers. Following with PCP. Iron deficiency anemia Assessment: Pending repeat CBC. Hemoglobin (g/dL) Date Value 01/28/2023 12.3 04/24/2019 11.9 Hematocrit (%) Date Value 01/28/2023 39.3 04/24/2019 38.8 WBC (k/uL) Date Value 01/28/2023 7.45 04/24/2019 6.17 Platelet Count (k/uL) Date Value 01/28/2023 296 04/24/2019 334 Foster Activity Status Index: METS: Climb a flight of stairs or walk up a hill (5.50 METs) DASI Score: 5.5 Patient denies any chest pain or undue shortness of breath with the above physical activity. Clinical Frailty Scale: 3. Well, with treated comorbid disease STOP-Bang Score: STOP-Bang Score: (+uri ) ANESTHESIA FINDINGS: Intubation History: No history of difficult intubation. No abnormal airway history Significant Anesthesia Considerations: potential postop nausea/vomiting Airway History: No history of difficult airway No abnormal airway history I - PHYSICAL EVALUATION AIRWAY Patient intubated: No. Tracheostomy tube not present Mallampati: I. TM distance: >3 FB. Neck ROM: full ROM without neurological symptoms. Mouth opening: adequate. Short neck: no. Thick neck: no Microretrognathia/Micronagthia/Recessed Chin: No DENTAL Dental findings: teeth intact. II - ANESTHESIA PLAN Anesthetic plan additional comments: *PACC/TCI - anesthesia choice. Beta Harsha Monitoring Plan Post Procedure Analgesic Plan Prepared for Surgery: optimally prepared for surgery, pending [see comment]. Labs ordered CONSULTS: Patient does not require consults for optimization at this time Planned Anesthetic: anesthesia choice The Following Tests/Procedures Have Been Initiated: Orders Placed This Encounter CBC with Differential Standing Status: Future Standing Expiration Date: 12/02/2023 CMP Standing Status: Future Standing Expiration Date: 12/02/2023 Type and Screen, 30 day Standing Status: Future Standing Expiration Date: 12/02/2023 Confirm Blood Type Standing Status: Future Standing Expiration Date: 12/02/2023 Order Specific Question: Did Blood Bank direct you to place this order: Answer: No - Presurgical Workflow REASON FOR VISIT: Yamil Ng is a 38 year old female who is scheduled for Procedure(s): LAPAROSCOPIC ASSISTED HYSTERECTOMY VAGINAL UTERUS 250 G OR LESS; REMOVAL - TUBE(S) AND/OR OVARY(S) (Bilateral) at the request of Dr. Temitope Acuna for consultation. My final recommendation will be communicated back to the requesting physician by way of shared medical record or letter. 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 CHIEF COMPLAINT: pre op HPI: Patient is a 38 year old female presenting with a AUB. Endorses bleeding, heavy, irregular. Reports last menses was . Has associated pelvic pain, bloating, fatigue, N/V. Has elected for procedure above. REVIEW OF SYSTEMS: General: No weight loss, malaise or fevers. Neurological: Positive for: headaches and seizures. Negative for: VP STRATEGY tumor, impaired sensorium, peripheral neuropathy, TIA and strokes. Respiratory: Positive for: obstructive sleep apnea. Negative for: asthma, COPD, current cough, dyspnea, home oxygen, orthopnea, tobacco use and URI < 2 weeks. Cardiovascular: Denies dizziness or syncope. . No history of HTN requiring medication, no history of angina, CHF, [place], cardiac surgery or stents. Denies rest pain, gangrene or revascularization/amputation for PVD. No history of cardiovascular symptoms or problems. Negative for: abdominal aortic aneurysm, AICD/PPM, angina, anticoagulation therapy, arrhythmia, atrial fibrillation, CAD, chest pain, CHF, congenital heart defect, DVT/PE, hyperlipidemia, hypertension, recent [place], murmur/valvular heart disease, PTCA, PVD, open heart surgery and valve surgery. GI: Positive for: GERD Negative for: abdominal pain, GI bleed <30 days, hepatitis, liver disease, nausea and vomiting. : Denies kidney disease Negative for: on dialysis, dysuria, frequent urination, hematuria, renal failure and urinary tract infection. 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 Endocrine: Negative for: diabetes mellitus, hyperthyroidism and hypothyroidism. Hematology: Positive for: anemia and iron deficiency anemia. Negative for: bruises/bleeds easily, factor V Leiden, hemophilia, thrombocytopenia, von Willebrand disease, transfusion of at least 4 units within 72 hours prior to surgery and chronic anti-coagulation/platelet meds. Oncology: No history of CA metastasis, chemo within 30 days, or radiotherapy within 90 days. No history of oncological symptoms or problems. Psych: Positive for: anxiety. Negative for: bipolar disorder and depression. Musculoskeletal: Negative for joint pain or swelling, back pain or muscle pain. Skin: Negative for lesions, rash and itching. PAST MEDICAL HISTORY Diagnosis Date Anemia Complication of anesthesia nausea and vomiting Episode of recurrent major depressive disorder (HCC) 08/28/2018 Family history of epilepsy aunt Hepatitis in viral diseases classified elsewhere(573.1) when she had mono PMH - PAST MEDICAL HISTORY OF Right Sciatica Seizure disorder (HCC) 02/04/2018 PAST SURGICAL HISTORY Procedure Laterality Date DELIVERY ONLY , low cervical x4 DELIVERY ONLY 10/14/2016 EXCISION GANGLION WRIST DORSAL/VOLAR PRIMARY Right HYSTEROSCOPY ENDOMETRIAL ABLATION N/A 02/28/2023 KNEE SURGERY HX Right shaved patella and removed fat pad LIG/TRNSXJ FLP TUBE ABDL/VAG APPR UNI/BI Bilateral 10/14/2016 FAMILY HISTORY Problem Relation Age of Onset Hypertension Father Diabetes Father Hyperlipidemia Father Cataract Father other (FIBROMYALGIA) Sister Pancreatitis Sister Cancer Maternal Grandmother Breast Cancer Paternal Grandmother Heart Paternal Grandmother Stroke Paternal Grandfather Diabetes Maternal Aunt Anesthesia Problems No Family History Clotting Disorder No Family History Malig Hyperthermia No Family History Social History Tobacco Use Smoking status: Never Smokeless tobacco: Never Vaping Use Vaping Use: Never used Substance Use Topics Alcohol use: Yes Comment: occasional Drug use: No Prior to Admission medications as of 09/02/23 1345 Medication Sig Last Dose Taking lacosamide (VIMPAT) 100 mg tab Take 1 tablet by mouth two times a day for 180 days. Taking Yes levETIRAcetam (KEPPRA) 1,000 mg tablet Take 1 tablet by mouth two times a day. Taking Yes ondansetron (ZOFRAN) 4 mg tablet Take 1 tablet by mouth every 8 hours as needed for nausea/vomiting. Taking Yes propranolol (INDERAL) 10 mg tablet Take 1 tablet by mouth three times a day. Patient not taking: Reported on 08/26/2023 topiramate (TOPAMAX) 25 mg tablet Take by mouth. One tablet twice daily for a week; then two tablets twice daily thereafter. No medication comments found. ALLERGIES Allergen Reactions Bleach (Sodium Hypo* Rash Lamictal [Lamotrigi* Rash [place] [Trees] Rash, Hives Topiramate Rash Objective PHYSICAL EXAM: General: alert and oriented and healthy appearance. Pertinent negatives noted - not distressed. Skin: normal color, no rash or lesions. HEENT: EOM intact, pupils equal round and pupils reactive to light. Pertinent negatives noted - no carotid bruit. Cardiovascular: regular rate and rhythm, normal S1 and S2, no rub, murmurs, or gallop. Respiratory: normal breath sounds, no wheezes or crackles. No chest wall deformity or tenderness. Abdomen: bowel sounds present and soft. Pertinent negatives noted - not tender. Extremities: no deformity, no edema or tenderness, no joint swelling or clubbing. Neurological: normal cognition and motor skills. Gait normal. No weakness or sensory deficit. PAIN ASSESSMENT: VITALS: BP 100/62 Pulse 68 Temp (Src) 97.4 (Temporal) Resp 14 Ht 5' 4 (1.63m) Wt 154 lb (69.9kg) SpO2 99% LMP 07/17/2023 BMI 26.42 kg/(m^2). Diagnostic tests reviewed for today's visit: Lab Value Units Date High Low HB No results within date range. HCT No results within date range. WBC No results within date range. PLT No results within date range. NA 139 mmol/L 04/17/2023 144 136 K 4.0 mmol/L 04/17/2023 5.1 3.7 GLUC 87 mg/dL 04/17/2023 99 74 BUN 17 mg/dL 04/17/2023 21 7 CREAT 0.84 mg/dL 04/17/2023 0.96 0.58 PTSEC No results within date range. INR No results within date range. APTT No results within date range. ALT 14 U/L 04/17/2023 38 7 AST 22 U/L 04/17/2023 35 13 TBILI 0.4 mg/dL 04/17/2023 1.3 0.2 TSH No results within date range. Lab Value Units Date High Low HCGQT No results within date range. UHCG No results within date range. HCG, BODY* No results within date range. Lab Value Units Date High Low ABORHD No results within date range. ABSCREEN No results within date range. Hemoglobin A1C (%) Date Value 12/17/2018 4.7 No results found for this or any previous visit (from the past 8760 hour(s)). No results found for this or any previous visit (from the past 50032 hour(s)). Instructions Given to Patient: Instructions located in the after visit summary. Patient given verbal and written preop instructions and voices comprehension and compliance. SIGNATURE: Alicia Delatorre APRN.CNP PATIENT NAME: Yamil Ng DATE: September 02, 2023 TIME: 1:37 PM PAGER/CONTACT #: documented in this encounterTr[facility] History of Present illness Narrative* Flaca Bentley PA-C - 08/26/2023 2:23 PM EST This note was created using NoteWriter. Subjective Yamil Ng is a 38 year old female. HPI Patient presents with a chief complaint of right knee pain for 2 days. She has had chronic problemswith her right knee over the past several years. She had arthroscopic surgery in 2020 for this. Shestates she had a partial meniscal tear as well. She states she really did not have any injury or trauma to the knee recently. She states pain is worse in the past 2 days and she has noted some swelling. She is supposed to see orthopedics on September 04. No OTC meds used for pain. No fever. No redness to the knee. Review of Systems Musculoskeletal: Right knee pain All other systems reviewed and are negative. PAST MEDICAL HISTORY Diagnosis Date Anemia Complication of anesthesia nausea and vomiting Episode of recurrent major depressive disorder (HCC) 08/28/2018 Family history of epilepsy aunt Hepatitis in viral diseases classified elsewhere(573.1) when she had mono PMH - PAST MEDICAL HISTORY OF Right Sciatica Seizure disorder (HCC) 02/04/2018 Current Outpatient Medications Medication Sig Dispense Refill lacosamide (VIMPAT) 100 mg tab Take 1 tablet by mouth two times a day for 180 days. 180 tablet 1 levETIRAcetam (KEPPRA) 1,000 mg tablet Take 1 tablet by mouth two times a day. 180 tablet 2 ondansetron (ZOFRAN) 4 mg tablet Take 1 tablet by mouth every 8 hours as needed for nausea/vomiting. 20 tablet 1 predniSONE (DELTASONE) 20 mg tablet Take 2 tablets by mouth once daily for 5 days. 10 tablet 0 propranolol (INDERAL) 10 mg tablet Take 1 tablet by mouth three times a day. (Patient not taking: Reported on 08/26/2023) 90 tablet 11 No current facility-administered medications for this visit. PAST SURGICAL HISTORY Procedure Laterality Date DELIVERY ONLY , low cervical x4 DELIVERY ONLY 10/14/2016 EXCISION GANGLION WRIST DORSAL/VOLAR PRIMARY Right HYSTEROSCOPY ENDOMETRIAL ABLATION N/A 02/28/2023 KNEE SURGERY HX Right shaved patella and removed fat pad LIG/TRNSXJ FLP TUBE ABDL/VAG APPR UNI/BI Bilateral 10/14/2016 FAMILY HISTORY Problem Relation Age of Onset Hypertension Father Diabetes Father Hyperlipidemia Father Cataract Father other (FIBROMYALGIA) Sister Diabetes Maternal Aunt Cancer Maternal Grandmother Breast Cancer Paternal Grandmother Heart Paternal Grandmother Stroke Paternal Grandfather Anesthesia Problems No Family History Clotting Disorder No Family History Malig Hyperthermia No Family History Social History Tobacco Use Smoking status: Never Smokeless tobacco: Never Vaping Use Vaping Use: Never used Substance Use Topics Alcohol use: Yes Comment: occasional Drug use: No Objective BP 106/64 Pulse 66 Temp 36.4 C (97.5 F) Resp 16 Wt 69.9 kg (154 lb) LMP 07/17/2023 (ExactDate) SpO2 99% BMI 27.28 kg/m Physical Exam Vitals reviewed. Constitutional: Appearance: Normal appearance. HENT: Head: Normocephalic and atraumatic. Musculoskeletal: Comments: Patient does have a mild effusion to the right knee. Pain with flexion and extension. No tenderness to the medial or lateral joint line. No tenderness over the patella. Able to ambulate. Nolaxity noted. Skin: General: Skin is warm and dry. Neurological: Mental Status: She is alert. Assessment and Plan ASSESSMENT/PLAN: 1. Acute pain of right knee - ICD9: 719.46, ICD10: M25.561 Patient had no injury or trauma to the knee, I did review x-rays from a year ago which showed some spurring under the patella. Will treat with prednisone for 5 days. Instructed she could use Tylenol with this. Rest, ice. Follow-up with orthopedics as scheduled. Flaca Bentley PA-C documented in this encounterTr[facility]02-[facility] Telephone encounter Note * Telephone Encounter - Temitope Acuna MD - 08/17/2023 2:03 PM EST singed. Thanks. Temitope Acuna MD [facility]02-24-[facility] Miscellaneous Notes* Telephone Encounter - Temitope Acuna MD - 08/17/2023 2:03 PM EST singed. Thanks. Temitope Acuna MD * Telephone Encounter - Addsi Mackay LPN - 08/16/2023 3:09 PM EST Please approve surgical order for surgery on 09/04/[address] [facility] documented in this encounterTr[facility]02-[facility] Telephone encounter Note * Telephone Encounter - Addis Mackay LPN - 08/16/2023 3:09 PM EST Please approve surgical order for surgery on 09/04/[address] [facility]02-19-2024 Miscellaneous Notes* Telephone Encounter - Anu Barrios RN - 08/12/2023 10:39 AM EST LCM written as generic ====== PA is for brand ====== Call placed to [facility] states even the generic needs PA ====== Spoke with [facility] LCM is approved They are reaching out to [facility] to discuss ====== Left VM for Yamil making her aware and to call Dr. Marinelli's office if any questions Anu Barrios RN * Telephone Encounter - Estephania Young - 08/12/2023 9:58 AM EST Prior Authorization Needed: Received by: Fax Requested by [facility] Phone number: [phone] Name of medication: vimpat Strength and dosage: 100 Insurance company name and phone #: cmm Patient ID: [id number] PCN #: BIN#: Group #: Patient of Dr. MARINLELI documented in this encounterTr[facility]02-16-2024 Miscellaneous Notes* Telephone Encounter - Ella Jacobo PA-C - 08/09/2023 3:54 PM EST She should restart LCM 100mg twice daily Plan was to wean LEV if she was seizure free She can make follow up visit to discuss if appropriate to wean LEV Would not wean now as it will take a week to get LCM level back to therapeutic range The following approved medication requests have been transmitted electronically. Requested Prescriptions Signed Prescriptions Disp Refills lacosamide (VIMPAT) 100 mg tab 180 tablet 1 Sig: Take 1 tablet by mouth two times a day for 180 days. Ella Jacobo PA-C * Telephone Encounter - Anu Barrios RN - 08/09/2023 3:25 PM EST Spoke with Yamil states the LCM had been canceled Her last dose was Saturday night routed urgently Anu Barrios RN * Telephone Encounter - Anu Barrios RN - 08/09/2023 2:57 PM EST Left VM reminding Yamil to review message from 3 days ago Anu Barrios RN * Telephone Encounter - Anu Barrios RN - 08/05/2023 6:34 PM EST 05/22/[address] CNP PLAN: - Medical Therapy: Start LCM 50 mg Bid for 1 week, then increase to 1000 mg BID - Continue LEV 100 mg BID for now- will plan to decrease/wean if she toerlated LCM well. - Seizure precautions including no driving - Follow up: 6 month 05/28/2023 TE 06/26/23 TE LCM RX need to be sent Anu Barrios RN documented in this encounterTr[facility]02-15-2024 History and physical note * Temitope Acuna MD - 08/08/2023 5:18 PM EST Pre-Op History and Physical HPI: The patient is a 37 year old female presenting for pre-operative visit. She is scheduled for LAVH and bilateral salpingectomy, for adenomyosis, postendometrial ablation syndrome, menorrhagia and dysmenorrhea on 09/04/23. Procedure discussed along with risks, benefits and complications. Other alternatives discussed for management. Consent form signed? Yes. PAST MEDICAL HISTORY Diagnosis Date Anemia Complication of anesthesia nausea and vomiting Episode of recurrent major depressive disorder (HCC) 08/28/2018 Family history of epilepsy aunt Hepatitis in viral diseases classified elsewhere(573.1) when she had mono PMH - PAST MEDICAL HISTORY OF Right Sciatica Seizure disorder (HCC) 02/04/2018 PAST SURGICAL HISTORY Procedure Laterality Date DELIVERY ONLY , low cervical x4 DELIVERY ONLY 10/14/2016 EXCISION GANGLION WRIST DORSAL/VOLAR PRIMARY Right HYSTEROSCOPY ENDOMETRIAL ABLATION N/A 02/28/2023 KNEE SURGERY HX Right shaved patella and removed fat pad LIG/TRNSXJ FLP TUBE ABDL/VAG APPR UNI/BI Bilateral 10/14/2016 Current Outpatient Medications Medication Sig Dispense Refill levETIRAcetam (KEPPRA) 1,000 mg tablet Take 1 tablet by mouth two times a day. 180 tablet 2 propranolol (INDERAL) 10 mg tablet Take 1 tablet by mouth three times a day. 90 tablet 11 ondansetron (ZOFRAN) 4 mg tablet Take 1 tablet by mouth every 8 hours as needed for nausea/vomiting. 20 tablet 1 No current facility-administered medications for this visit. ALLERGIES: Bleach (Sodium Hypochlorite), Lamictal [Lamotrigine], [place] [Trees], and Topiramate PERSONAL HISTORY: Social History Tobacco Use Smoking status: Never Smokeless tobacco: Never Vaping Use Vaping Use: Never used Substance Use Topics Alcohol use: Yes Comment: occasional Drug use: No FAMILY HISTORY: FAMILY HISTORY Problem Relation Age of Onset Hypertension Father Diabetes Father Hyperlipidemia Father Cataract Father other (FIBROMYALGIA) Sister Diabetes Maternal Aunt Cancer Maternal Grandmother Breast Cancer Paternal Grandmother Heart Paternal Grandmother Stroke Paternal Grandfather Anesthesia Problems No Family History Clotting Disorder No Family History Malig Hyperthermia No Family History REVIEW OF SYMPTOMS: GENERAL: denies fevers or chills ENDOCRINOLOGY: has not been on steroids Cardiology : denies palpitations or chest pain Respiratory: denies SOB or cough Hematology: denies history of prolonged bleeding or easy bruising or VTE Allergy: Denies history of personal or family history of allergy to anesthesia PHYSICAL EXAMINATION: VITALS: Blood pressure 108/64, weight 155 lb (70.3 kg), last menstrual period 07/17/2023. GENERAL: The patient is well nourished, well hydrated in no acute distress. , The patient is oriented to time, place, and person. NECK: Supple. No lynphadenopathy, normal thyroid, no thyromegaly. LUNGS: Clear to auscultation bilaterally. no wheezes, rhonchi or rales HEART: Regular rate and rhythm, Normal heart sounds, and No murmurs or gallops IMPRESSION: dysmenorrhea, menorrhagia, postendometrial ablation syndrome and adenomyosis PLAN: The risks/benefits/alternatives and personal involved for the planned LAVH, bilateral salpingectomy were reviewed with the patient. Her questions were answered to her satisfaction and she desires to proceed. Consent was signed. I reviewed with her postop instructions and expectations. I have reviewed and updated past medical and surgical history, medications and allergies Temitope Acuna M.D. documented in this encounterTr[facility]02-15-2024 History of Present illness Narrative* Temitope Acuna MD - 08/08/2023 3:32 PM EST Yamil Ng is a 37 year old female who presents for problem visit for f/u heavy menses.. HPI: 37 YOF c/o heavy menses. Had hysteroscopy and endometrial ablation in feb 2023 and menses shorter but still heavy and more painful> Changes protection q 1 hr at heaviest. Gets pain day before and then for 2-3 days after. No pain w/ intercourse. OCcas spotting between menses. Denies feelijng of prolapse or problems w/ BM or urination. 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 LMP: 02/23/2023 (Exact Date), Ablation Age at Menarche: Age at First : Age at Menopause: Mending Carrier History Comments: Sexual Activity: Yes; Male; ablation Contraception: Condom, Vasectomy, Surgical PAST MEDICAL HISTORY Diagnosis Date Anemia Complication of anesthesia nausea and vomiting Episode of recurrent major depressive disorder (HCC) 08/28/2018 Family history of epilepsy aunt Hepatitis in viral diseases classified elsewhere(573.1) when she had mono PMH - PAST MEDICAL HISTORY OF Right Sciatica Seizure disorder (HCC) 02/04/2018 PAST SURGICAL HISTORY Procedure Laterality Date DELIVERY ONLY , low cervical x4 DELIVERY ONLY 10/14/2016 EXCISION GANGLION WRIST DORSAL/VOLAR PRIMARY Right HYSTEROSCOPY ENDOMETRIAL ABLATION N/A 02/28/2023 KNEE SURGERY HX Right shaved patella and removed fat pad LIG/TRNSXJ FLP TUBE ABDL/VAG APPR UNI/BI Bilateral 10/14/2016 FAMILY HISTORY Problem Relation Age of Onset Hypertension Father Diabetes Father Hyperlipidemia Father Cataract Father other (FIBROMYALGIA) Sister Diabetes Maternal Aunt Cancer Maternal Grandmother Breast Cancer Paternal Grandmother Heart Paternal Grandmother Stroke Paternal Grandfather Anesthesia Problems No Family History Clotting Disorder No Family History Malig Hyperthermia No Family History Social History Tobacco Use Smoking status: Never Smokeless tobacco: Never Vaping Use Vaping Use: Never used Substance Use Topics Alcohol use: Yes Comment: occasional Drug use: No Current Outpatient Medications Medication Sig propranolol (INDERAL) 10 mg tablet Take 1 tablet by mouth three times a day. levETIRAcetam (KEPPRA) 1,000 mg tablet Take 1 tablet by mouth two times a day. ondansetron (ZOFRAN) 4 mg tablet Take 1 tablet by mouth every 8 hours as needed for nausea/vomiting. No current facility-administered medications for this visit. Allergies As of Date: 08/08/2023 Allergen Noted Reaction BLEACH (SODIUM HYPOCHLORITE) 03/22/2016 Rash LAMICTAL [LAMOTRIGINE] 06/16/2018 Rash PINE TREES [TREES] 03/22/2016 Rash and Hives TOPIRAMATE 06/07/2023 Rash Fully Assessed 06/03/2023 REVIEW OF SYSTEMS Abdomen: No bloating, early satiety, indigestion, or increased flatulence. No abdominal pain, nausea, vomiting, diarrhea, or constipation. Bladder: No dysuria, gross hematuria, urinary frequency, urinary urgency, or incontinence. 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 Reviewed last US 11/2022. D/w her options, hormonal therapy vs hysterectomy. SHort and fci risks to hyst reviewed. She is not interested in hormones due toside effects in the past. Temitope Acuna MD documented in this encounterTr[facility]02-[facility]-2024 Miscellaneous Notes* Telephone Encounter - Temitope Acuna MD - 07/26/2023 1:00 PM EST In person please. Thanks! I have openings on the . RLR * Telephone Encounter - Georgina Randolph RN - 07/26/2023 11:01 AM EST Would like patient to have either a virtual or in person visit to discuss? documented in this encounterTr[facility]12-16-2023 Miscellaneous Notes* Telephone Encounter - Nils Reddy MD - 06/08/2023 5:02 PM EST Yamil proved allergic to topiramate. We discussed propranolol instead. She voiced some concern aboutrunning a low-migdalia blood pressure to begin with, inre: the chance of lightheadedness with the medication. On that account, I will start low: 10 mg tid. We also discussed: The patient understands that propranolol may cause lightheadedness or fatigue. It does not increase appetite, but does, slightly,decrease caloric expenditure. Occasionally, it may cause sleep disturbance or difficulty concentrating. Prescription sent to her pharmacy. Nils Reddy MD documented in this encounterTr[facility]12-16-2023 Miscellaneous Notes* Telephone Encounter - Regine Snider MA - 06/08/2023 8:[address] Reddy, Neurology responded to patient's phone call. Please see TE 06/07/23 Barry. Regine Snider MA * Telephone Encounter - Adrianne Ignacio MD - 06/08/2023 8:08 AM EST Needs to contact prescribing physician for recommendations. * Telephone Encounter - Uriel Lao RN - 06/07/2023 4:54 PM EST Spoke with pt regarding possible adverse reaction to medication. Nurse triage assessment completed ,with protocol recommendation for disposition.Care Advice ,and Red Flag symptoms reviewed with pt. Pt verbalized understanding, agreeable to call back with concerns,questions or worsening symptoms. Protocol recommends call PCP when office open Pt advised to hold medication until call back , pt agreeable. Reason for Disposition [1] Caller has NON-URGENT medicine question about med that PCP prescribed AND [2] triager unable toanswer question Answer Assessment - Initial Assessment Questions 1. NAME of MEDICINE: Topmax 2. QUESTION: Is Dizziness , body rash caused by Topamax rash , better today . 3. PRESCRIBER: Ever 4. SYMPTOMS: Dizziness, body rash 5. : N/a Protocols used: Medication Question [id number] * Telephone Encounter - Luci Spangler - 06/07/2023 4:47 PM EST Patient calling in regards to the topomax stating it made her very dizzy and she has broken out in a rash she state she has not taken it yesterday 06-06-23 please advise. documented in this encounterTr[facility]12-15-2023 Miscellaneous Notes* Telephone Encounter - Nils Reddy MD - 06/07/2023 4:54 PM EST I left a voice mail for Yamil that we must consider her allergic to topiramate, and that she did theright thing stopping it. I suppose propranolol would be Plan B, but that we would have to discussit. I left my [facility] mobile phone number for a call back. Nils Reddy MD documented in this encounterTrinity [facility]12-10-2023 History and physical note * Nils Reddy MD - 06/02/2023 6:00 PM EST Office Visit Parenthetic [comments] and tinted emphasis mine. Consultation is requested for an opinion regarding the evaluation and treatment of Yamil Ng. Myfinal impression and recommendations will be communicated back to the referring physician by way ofthe shared medical record or letter via [place] mail. Yamil Ng is referred by JAXON Self for headache. She is followed in epilepsy clinic and is treated with levetiracetam 750 mg bid. ====== Ms. Ng was most recently evaluated in Epilepsy clinic (Distance Visit) by [address], 05/22/23. She documented: Seizures: Last seizure occurred 3 weeks ago. She woke up super disoriented. It took a few minutes to orient herself, felt super exhausted, had muscle soreness. Prior to that hat it had been at least 6-8 months. Still having issue with short term memory. AED's: Keppra 1000 mg BID Feels no different on the higher dose. Keppra has always made her feel sick with nausea, which has gotten worse on the higher dose. Mood is also worse... Driving: has not been driving... PREVIOUS EVALUATIONS: Long EEG, [facility], 05/20/2023 Interictal: Normal, Impression: This EEG is within normal limits. No epileptiform discharges or EEG seizures were seen during this recording. MRI Brain, 05/20/2023 IMPRESSION: Trace nonspecific supratentorial white matter changes... Age-appropriate unremarkable remaining brain without evidence of focal developmental or structural abnormality. EEG, [facility], 2018 Impression This EEG is within normal limits. No epileptiform discharges or EEG seizures were seen during this recording... [Impression] ...Still reporting issues with short term memory...Pt reporting significant side effects to Keppra (irritability & nausea) and would like to trial a new medication to potentially replace it. Discussed options of ZNS & LCM [lacosaminde], but due to hx of kidney stones opted to trial LCM. PLAN: - Medical Therapy: Start LCM 50 mg Bid for 1 week, then increase to 1000 mg BID - Continue LEV 100 mg BID for now- will plan to decrease/wean if she toerlated LCM well. - Seizure precautions including no driving - Follow up: 6 month ===== Problem List includes URI, depression, and anxiety. Medications reviewed. Per UpToDate, headache occurs in 11-14% of lacosamide treated patients. It was first prescribed as 50 mg bid on 05/28/23, and is due to increase to 100 mg bid on 06/04/23. It lists levetiracetam (recent level 18.9) as a cause of headaches 14-19% of the time. ====== Nils Reddy MD documented in this encounterTrinity [facility]12-10-2023 History and physical note * Nils Reddy MD - 06/02/2023 5:41 PM EST Office Visit - 15:27 - 16:47 Parenthetic [comments] and tinted emphasis mine. Consultation is requested for an opinion regarding the evaluation and treatment of Yamil Ng. Myfinal impression and recommendations will be communicated back to the referring physician by way ofthe shared medical record or letter via [place] mail. Yamil Ng is referred by JAXON Self for headache. She is followed in epilepsy clinic and is treated with levetiracetam 750 mg bid. ====== Ms. Ng was most recently evaluated in Epilepsy clinic (Distance Visit) by [address], 05/22/23. She documented: Seizures: Last seizure occurred 3 weeks ago. She woke up super disoriented. It took a few minutes to orient herself, felt super exhausted, had muscle soreness. Prior to that hat it had been at least 6-8 months. Still having issue with short term memory. AED's: Keppra 1000 mg BID Feels no different on the higher dose. Keppra has always made her feel sick with nausea, which has gotten worse on the higher dose. Mood is also worse... Driving: has not been driving... PREVIOUS EVALUATIONS: Long EEG, [facility], 05/20/2023 Interictal: Normal, Impression: This EEG is within normal limits. No epileptiform discharges or EEG seizures were seen during this recording. MRI Brain, 05/20/2023 IMPRESSION: Trace nonspecific supratentorial white matter changes... Age-appropriate unremarkable remaining brain without evidence of focal developmental or structural abnormality. EEG, [facility], 2018 Impression This EEG is within normal limits. No epileptiform discharges or EEG seizures were seen during this recording... [Impression] ...Still reporting issues with short term memory...Pt reporting significant side effects to Keppra (irritability & nausea) and would like to trial a new medication to potentially replace it. Discussed options of ZNS & LCM [lacosaminde], but due to hx of kidney stones opted to trial LCM. PLAN: - Medical Therapy: Start LCM 50 mg Bid for 1 week, then increase to 1000 mg BID - Continue LEV 100 mg BID for now- will plan to decrease/wean if she tolerated LCM well. - Seizure precautions including no driving - Follow up: 6 month ===== Problem List includes URI, depression, and anxiety. Medications reviewed. Per UpToDate, headache occurs in 11-14% of lacosamide treated patients. It was first prescribed as 50 mg bid on 05/28/23, and is due to increase to 100 mg bid on 06/04/23. [Due to either pre-authorization issues or discontinuity, the lacosamide was just prescribed 2 days ago, and has not yet been started. It lists levetiracetam (recent level 18.9) as a cause of headaches 14-19% of the time. ====== With that preamble, Chief Complaint: Yamil Ng is a 37 year old right handed female who presents predominantly for headaches. History of Present Illness There is no known family history of headaches. The patient's 'normal headaches' started around age 12 or 13. They have been bifrontotemporal (she still gets them). They were kind of sharp in quality, but not severe. They were responsive to OTC medications. They are not nauseating. She is not averse to stimulation during them. There are no visual phenomena. Stress, skipping meals, and change in the weather can cause them. These have evolved,at times, into the presenting headaches. (However, the presenting headaches can also occur without first going through a 'normal headache' stage). Along these lines, the normal headaches are not as common as they used to be, suggesting that the presenting headaches have, to some degree, taken theirplace. Shortly after delivering her first child at age 17, she had the first of her presenting headaches, which are more severe than the normal headaches. They have evolved over time. Originally, they were posterior in location - a dull but severe headache. She was not then nauseated by them. She was not averse to stimulation. There were no associated visual changes or dizziness. In contrast, they arecurrently pretty bad and come in waves. They may stop her in her tracks for a few minutes. Almost every one makes her nauseated and dizzy (off balance; if she moves too fast, then spinning). She is photophobic; mildly kinesiophobic; rarely sonophobic. When they are severe, her peripheral vision goes black. They have been 1 day prior pre-menstrual; or the first day of her period; then, at the end of her 7-9 day periods, she would have another 3 day headache. She would only occasionally have them in between periods, if she was severely stressed; change in the weather (especially during [place]); or skipping meals. She has never been on contraceptives (in re: why did the headaches change when they did?). She had her tubes tied after her 2017 , her fourth. Early on, she usedacetaminophen. The past 5 years, she doesn't take anything, because nothing has seemed to help. They have been daily in occurrence the past 6-7 weeks. That is, about 3-4 weeks after increasing her dose of levetiracetam from 750 mg bid --> 1000 mg bid. She has not been on a preventive medication against them. Specifically, she has never been treated with topiramate or zonisamide. CT abdomen andpelvis 03/17/19 at [facility] did not find any kidney stones. Sometimes, during headaches, she experiences pulsatile tinnitus, generally on the right side. PAST MEDICAL HISTORY Diagnosis Date Anemia Complication of anesthesia nausea and vomiting Episode of recurrent major depressive disorder (HCC) 08/28/2018 Family history of epilepsy aunt Hepatitis in viral diseases classified elsewhere(573.1) when she had mono PMH - PAST MEDICAL HISTORY OF Right Sciatica Seizure disorder (HCC) 02/04/2018 Current Outpatient Medications Medication Sig lacosamide (VIMPAT) 50 mg tab Take 1 tablet by mouth two times a day for 7 days. Then switch to [id number] mg tablet. levETIRAcetam (KEPPRA) 1,000 mg tablet Take 1 tablet by mouth two times a day. ondansetron (ZOFRAN) 4 mg tablet Take 1 tablet by mouth every 8 hours as needed for nausea/vomiting. [START ON 06/04/2023] lacosamide (VIMPAT) 100 mg tab Take 1 tablet by mouth two times a day for 180days. Do not start before June 04, 2023. No current facility-administered medications for this visit. ALLERGIES Allergen Reactions Bleach (Sodium Hypo* Rash Lamictal [Lamotrigi* Rash [place] T[place] [Trees] Rash, Hives Social History Tobacco Use Smoking status: Never Smokeless tobacco: Never Vaping Use Vaping Use: Never used Substance Use Topics Alcohol use: Yes Comment: occasional Drug use: No FAMILY HISTORY Problem Relation Age of Onset Hypertension Father Diabetes Father Hyperlipidemia Father Cataract Father other (FIBROMYALGIA) Sister Diabetes Maternal Aunt Cancer Maternal Grandmother Breast Cancer Paternal Grandmother Heart Paternal Grandmother Stroke Paternal Grandfather Anesthesia Problems No Family History Clotting Disorder No Family History Malig Hyperthermia No Family History Review of Systems: As above. PHYSICAL EXAM General: Alert, conversant, appropriate, young, FEMALE, in no apparent distress. She has a 3/10 headache at present. Vital Signs: BP 108/69 Pulse (!) 57 Ht 160 cm (5' 3) Wt 65.8 kg (145 lb) LMP 02/23/2023 (Exact Date) BMI 25.69 kg/m - reviewed. Head: Mild tenderness of the right frontal sinus to palpapation. Neck: Supple. Cardiovascular: Carotids 2 and symmetric without bruits. Neurologic: Cranial Nerves: Facial sensation mildly diminished in right V1,2. Monocular visual mcghee intact to finger counting. Fundoscopic reveals flat discs and no hemorrhages. Pupils equal, round and reactive to light. Pursuit eye movements normal. Facies symmetric. Hearing normal to 1024 Hz tuning fork. Palatal movement, phonation, and resonation normal. Trapezius and SCM 5/5 and symmetric. Tongue movement symmetric. Sensory: Pin is diminished in the right great toe, the left second toe, the left third toe, right 4th toe, and left 5th toe. Vibration is diminished at the right great toe [equal at 1st MCP level], left second toe, right 4thand 5th toes. {Possibly relevant, in 6th grade she fractured her left ankle]. Normal on testing joint position sense (index fingers and great toes tested). Simultaneous light touch of the hands found no extinction. Motor: Strength was 5/5 and symmetric on testing thumb abduction, finger abduction, finger extension, elbow flexion, elbow extension, shoulder abduction, toe dorsiflexion, ankle dorsiflexion, ankle plantar flexion, knee flexion, knee extension, and hip flexion. Tone was normal. Posture was normal. There was no atrophy. There were no fasciculations. There wereno involuntary movements. Coordination: [id number] was normal. Finger and toe wiggling rapid alternating movements were normal. Standing in Romberg's position with eyes open and closed was normal. Tandem gait was normal. Gait: Normal. Deep Tendon Reflexes: Plantars were flexor bilaterally. Biceps 1 and symmetric. Triceps 2 and symmetric. Patellar 2 and symmetric. Achilles 2 and symmetric. Mental Status: Alert, conversant, and appropriate. IMPRESSION AND PLAN: Ms. 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 The presenting headaches are more frankly migrainous, however, they share precipitation by skippingmeals and by change in the weather with her 'normal' headaches. They are more severe than the 'normal' headaches; are associated with nausea; with aversion to stimulation of various sorts; and at their most severe, with visual aura of her peripheral vision 'going black'. They are also associated with vertigo; migrainous vertigo is a common phenomenon. I speculate that they became a daily occurrence due her most recent increase in levetiracetam dose from 750 mg bid to 1000 mg bid, According to UpToDate, leveitiacetam treatment is associated with headache 14-19% of the time. It does not explicitly state that their occurrence is dose dependent, but it is reasonable to infer that it is. If so, when she switches to lacosamide, the presenting headaches may slacken in frequency. I do not expect them to resolve completely, however, as they began 20 years years ago, antedating treatment with levetiracetam; and because UpToDate cites an 11-14% chance of headaches with lacosamide. Because she experiences right sided pulsatile tinnitus during headaches , I have ordered an MRV brain looking for left transverse sinus thrombosis. Because of diminished sensation in right V1,2 territories, I have ordered an MRA brain as well. (One may see ipsilateral loss of V1 sensation with internal carotid artery aneurysms; I do not, howeverfind any associated ptotic, pupillary, or ocular motor deficits in her case). Because of their daily occurrence the past 6-7 weeks, I will treat preventively with topiramate 25 mg twice daily for a week, followed by 50 mg twice daily thereafter. She has no history of nephrolithiais, and has undergone tubal ligation. We discussed that topiramate may cause difficulty thinking - usually in the form of word finding difficulty. It is reversible on discontinuing the drug. It frequently causes tingling in the lips, fingers and toes for the first couple of months of treatment. It sometimes causes a change in the taste of food; in particular, carbonated beverages may taste metallic. It can also cause decreased appetite. Three percent of patients taking topiramate experience ur olithiasis; it is thought that drinking water liberally reduces the likelihood of this happening. She will MyChart with her progress and any problems. Thank you for requesting neurologic consultation for Yamil Boston Hernandez. Sincerely, Nils Reddy MD Staff, General Neurology I spent 80 minutes in this visit face to face with the patient, with more than 50% of the time devoted to patient counseling with regard to the impression, patient education, interpretation of the studies, the diagnosis, treatment options, theneed for further diagnostic testing, and coordination ofcare. documented in this encounterTr[facility]12-[facility]23 History of Present illness Narrative* Nils Reddy MD - 06/02/2023 5:41 PM EST There is no data to display for this encounter documented in this encounterTrinity [facility]12-05-2023 Miscellaneous Notes* Telephone Encounter - Anu Barrios RN - 05/28/2023 11:16 AM EST Left message that the LCM RX were sent in 50 mg BID for 7 days, then increase to [address] Marinelli's office if any further questions Anu Barrios RN * Telephone Encounter - Abbi Way APRN.CNP - 05/28/2023 10:16 AM EST Rx for Lcm 50 mg and 100 mg tablets sent to [facility]. Abbi Way APRN.BHARAT * Telephone Encounter - Anu Barrios RN - 05/24/2023 2:50 PM EST ASSESSMENT: Yamil Ng is a 37 year old female with an evaluation suggestive for epilepsy with recent concernfor breakthrough seizure on Keppra monotherapy. Still reporting issues with short term memory. Recent Long EEG & MRI unremarkable. Pt reporting significant side effects to Keppra (irritability & nausea) and would like to trial a new medication to potentially replace it. Discussed options ofZNS & LCM, but due to hx of kidney stones opted to trial LCM. PLAN: - Medical Therapy: Start LCM 50 mg Bid for 1 week, then increase to 1000 mg BID - Continue LEV 1000 mg BID for now- will plan to decrease/wean if she toerlated LCM well. - Seizure precautions including no driving - Follow up: 6 month ======== routed for review Anu Barrios RN * Telephone Encounter - Nga Mendoza - 05/24/2023 2:23 PM EST Medication Concern Person Calling Yamil Ng Name of medication AEDs Concern with medication Patient states, per visit on 05/22/23, medication changes were made and newscript were supposed to be sent to her pharmacy. Pharmacy has not received any new scripts. Using [facility] in [place]. Patient of Dr. Marinelli documented in this encounterTr[facility]11-29-2023 History of Present illness Narrative* Abbi Way APRN.CNP - 05/22/2023 12:53 PM EST [facility] VIRTUAL VIS[facility] I have communicated my name and active licensure. The patient's identity and physical location wereverified at the time of this visit. Either the patient or their legal reimbursement representative has been informed of the risks and benefits of -- and alternatives to -- treatment through a remote evaluation andconsents to proceed with the evaluation remotely. Epilepsy Classification: focal epilepsy Seizure Classification: Generalized Motor Seizure Etiology: Other unkown CHIEF COMPLAINT: follow up HISTORY OF PRESENT ILLNESS: Yamil Ng is a 37 year old RHF who is diagnosed with seizures, and presents today for follow up.They are an established patient of Dr. Owens and was last seen on 03/28/2023 at which time she reported experiencing a worsening of finding words, sentence structure, short term memory. No observable seizures witnessed by others. Concerned she would have a seizure during daytime. Keppra increased from 750 mg BID to 1000 mg BID at that time. EEG long & MRI of the brain ordered. INTERVAL HISTORY Seizures: Last seizure occurred 3 weeks ago. She woke up super disoriented. It took a few minutes to orient herself, felt super exhausted, had muscle soreness. Prior to that hat it had been at least 6-8 months. Still having issue with short term memory. AED's: Keppra 1000 mg BID Feels no different on the higher dose. Keppra has always made her feel sick with nausea, which has gotten worse on the higher dose. Mood is also worse. 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 Driving: has not been driving Mood: irritability, worse since last increase in Keppra Memory: having issues No other changes Has occasional headaches Current Outpatient Medications on File Prior to Visit Medication Sig levETIRAcetam (KEPPRA) 1,000 mg tablet Take 1 tablet by mouth two times a day. ondansetron (ZOFRAN) 4 mg tablet Take 1 tablet by mouth every 8 hours as needed for nausea/vomiting. 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 No epileptiform discharges or EEG seizures were seen during this recording. MRI Brain, 05/20/2023 IMPRESSION: Trace nonspecific supratentorial white matter changes with differential provided above. Age-appropriate unremarkable remaining brain without evidence of focal developmental or structural abnormality. EEG, [facility], 2018 Impression This EEG is within normal limits. No epileptiform discharges or EEG seizures were seen during this recording. ? ASSESSMENT: Yamil Ng is a 37 year old female with an evaluation suggestive for epilepsy with recent concernfor breakthrough seizure on Keppra monotherapy. Still reporting issues with short term memory. Recent Long EEG & MRI unremarkable. Pt reporting significant side effects to Keppra (irritability & nausea) and would like to trial a new medication to potentially replace it. Discussed options ofZNS & LCM, but due to hx of kidney stones opted to trial LCM. PLAN: - Medical Therapy: Start LCM 50 mg Bid for 1 week, then increase to 1000 mg BID - Continue LEV 1000 mg BID for now- will plan to decrease/wean if she toerlated LCM well. - Seizure precautions including no driving - Follow up: 6 month A total of 15 minutes was spent during the visit with greater than 50% of the time spent counselingand coordinating care of the above plan, ,as well as answering the patient's questions. ? Abbi Way APRN.CNP May 22, 2023 documented in this encounterTr[facility]11-09-2023 Miscellaneous Notes* Telephone Encounter - Anu Barrios - 05/02/2023 2:50 PM EST Being addressed in seizure encounter Anu Barrios * Telephone Encounter - Estephania Young - 05/01/2023 10:26 AM EST General call : Full name of person calling: Yamilmychal Ng Relationship to patient: self Phone # : [phone] (home) Reason for call: has had headache for the last 5 days. MRI appointment is 05/20/[address] marinelli documented in this encounterTrinity [facility]10-23-2023 Miscellaneous Notes* Telephone Encounter - Anu Barrios - 04/15/2023 3:15 PM EDT Spoke with Yamil Labs being done this Saturday EEG and MRI cannot be moved, no openings Will call to make the post testing [facility] FU Will call the office if symptoms worse Anu Barrios * Telephone Encounter - Davy Bauman APRN.CNP - 04/15/2023 10:34 AM EDT Agree with recommendations as discussed. Davy Bauman APRN.CNP * Telephone Encounter - Anu Barrios - 04/15/2023 10:17 AM EDT Spoke with Yamil Symptoms are the same, no changes, since last visit with Sophia Barrios CNP We discussed Trough levels for labs, will cancel the 05/20/2023 lab appointment and go to lab before AM medication. Takes at 9:30 Will call to see if appointment for MRI and EEG can be moved up. Aware might need to have on separate days to accomplish. Appointment line give. Aware to call and make FU appointment with [facility] for to post testing FU routed for review Anu Barrios * Telephone Encounter - Marine Danielle - 04/15/2023 9:29 AM EDT Patient returned call to the office, please return call at (P) [phone]. * Telephone Encounter - Anu Barrios - 04/15/2023 8:06 AM EDT 03/28/2023 VV Sophia Barrios CNP ASSESSMENT: Yamil Ng is a 37 year old RHF with history of seizures. This year has been experiencing a worsening of finding words, sentence structure, short term memory. No observable seizures witnessed by others. Taking Keppra 750mg BID. Working and driving. Concerned she will have a seizure during daytime.. PLAN: - LABS: EEG, MRI of Brain, LEV, CMP - Medications: -increased Keppra to 1000mg BID -Zofran to use PRN -continue with all other daily medications -Follow all seizure precautions -No driving if not feeling well. - Consults: none - Follow up: after testing with Dr. Marinelli 03/29/2023 TE labs/EEG/MRI scheduled in Apr routed to arrange for FU testing appointment Left message to Dr. Marinelli's office Anu Barrios * Telephone Encounter - Domitila Lujan - 04/12/2023 12:42 PM EDT General call : Full name of person calling: Yamil Ng Relationship to patient: self Phone # : [phone] Reason for call: no change, difficulty with speech Patient of Dr. Marinelli documented in this encounterTrinity [facility]10-12-2023 Miscellaneous Notes* Telephone Encounter - Anu Barrios - 04/04/2023 1:24 PM EDT Appointments are schedule in April to labs/EEG/MRI Anu Barrios * Telephone Encounter - Anu Barrios - 04/01/2023 9:54 AM EDT ASSESSMENT: Yamil Ng is a 37 year old RHF with history of seizures. This year has been experiencing a worsening of finding words, sentence structure, short term memory. No observable seizures witnessed by others. Taking Keppra 750mg BID. Working and driving. Concerned she will have a seizure during daytime.. PLAN: - LABS: EEG, MRI of Brain, LEV, CMP - Medications: -increased Keppra to 1000mg BID -Zofran to use PRN -continue with all other daily medications -Follow all seizure precautions -No driving if not feeling well. - Consults: none - Follow up: after testing with Dr. Marinelli orders have been placed today for MRI, EEG, and labs Attempted to call Yamil PARK is full. Anu Barrios * Telephone Encounter - Anu Barrios - 04/01/2023 8:17 AM EDT routed for review No current MRI or EEG since 2018 Last visit visit notes not available at this time Message sent to BHARAT Cameron * Telephone Encounter - Nga Mendoza - 03/29/2023 3:18 PM EDT ORDERS Person requesting order: Yamil Ng Phone number: [phone] Order being requested: MRI, EEG Facility: [facility] Fax: Email: Patient of Dr. Marinelli documented in this encounterTr[facility]10-09-2023 Miscellaneous Notes* Telephone Encounter - Jennifer Poe RN - 04/01/2023 11:20 AM EDT Patient notified and voiced understanding of information below. Jennifer Poe RN * Telephone Encounter - Temitope Acuna MD - 04/01/2023 10:04 AM EDT This is still normal. I usually recommend giving it 3 months to see how the cycles will combs out. Temitope Acuna MD * Telephone Encounter - Anu Anthony LPN - 04/01/2023 9:48 AM EDT Pt calling and stated that she had a ablation about 1 month ago and is still having bleeding. She is needing to change her protection about 3-4 times daily. She is cramping as well. Pt has no other voiced c/o . Please advise how to proceed from here. Anu Anthony LPN documented in this encounterTr[facility]10-06-2023 Miscellaneous Notes* Telephone Encounter - Imani Esteves APRN.CNP - 03/29/2023 8:24 AM EDT She saw Sophia yesterday for a virtual visit to discuss these symptoms. Note is not signed. No furtherrecommendations at this time, concerns should have been addressed in the visit. Imani Esteves APRN.CNP * Telephone Encounter - Anu Barrios - 03/29/2023 8:11 AM EDT routed for review Anu Barrios * Telephone Encounter - Anu Barrios - 03/28/2023 8:11 AM EDT 10/24/2022 VV Sophia Barrios CNP ASSESSMENT: Yamil Ng is a 37 year old female with history of focal seizures. None in past 5-6 months. Taking Keppra 1500mg a day. No other ED visits, or new diagnosis. 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 Will issue refills and continue with medical plan.. PLAN: - LABS: none - Medications: -continue with Keppra 750mg BID, rfs. -continue with all other daily medications -Follow all seizure precautions/restrictions - Consults: none - Follow up: six months with [facility] or Dr. Marinelli LEV: 750 m mg BID Anu Barrios documented in this encounterTrinity Health [facility]09-20-2023 History of Present illness Narrative* Temitope Acuna MD - 03/13/2023 3:16 PM EDT DATE OF SERVICE: 03/13/2023 PROBLEM: Yamil Ng presents for postop visit. SURGERY & DATE: 02/28/23 hysteroscopy D&C w/ endometrial ablation PATHOLOGY: benign SUBJECTIVE/INTERVAL HISTORY: Yamil Ng reports that she feels well. No fever or chills. Some cramping and intermittent vaginal discharge and spotting. OBJECTIVE: PELVIC: External genitalia normal. Vagina normal on speculum exam. uterus nontender, mobile. Small amount of mucous discharge . ASSESSMENT: postop visit PLAN: 1. Discussed results of pathology and implications with patient. 2. Postop restrictions reviewed. Reassured, seems to be improving per her report. If fever or worsens notify office, trial of doxy Temitope Acuna MD documented in this encounterTrinity Health [facility]09-05-2023 Miscellaneous Notes* Telephone Encounter - Temitope Acuna MD - 02/26/2023 2:55 PM EDT OK for surgery if no fever. Just take antibiotics as prescribed until then and finish after surgeryif she has some left. Thanks. Temitope Acuna MD * Telephone Encounter - Anu Anthony LPN - 02/26/2023 1:04 PM EDT Pt calling and reported that she was seen in the ED over the weekend. Pt was having left flank pain. A CAT scan did not reveal any stones. Pt was told that she had a kidney infection, this nurse verified that it was kidney and not bladder. She was started on Keflex 500mg 4x daily for 7days. She is scheduled to have an Ablation on with you and is wanting to know if she can proceed with her ablation that is scheduled for this . Pt has been afebrile, no urgency, frequency or dysuria. Her only c/o was left flank pain which is improving. Anu Anthony LPN documented in this encounterTrinity [facility]08-30-2023 History of Present illness Narrative* Temitope Acuna MD - 02/20/2023 5:01 PM EDT Yamil Ng is a 37 year old female who presents for problem visit for f/u menorrhagia, has completed child bearing. HPI: no new c/o today. OB History T4 L4 SAB0 IAB0 Ectopic0 Multiple0 Live Births4 Mending Carrier History LMP: 02/18/2023 (Exact Date), Having periods Age at Menarche: Age at First : Age at Menopause: Mending Carrier History Comments: Sexual Activity: Yes; Male Contraception: Condom, Vasectomy PAST MEDICAL HISTORY Diagnosis Date Anemia Complication of anesthesia nausea and vomiting Episode of recurrent major depressive disorder (HCC) 08/28/2018 Family history of epilepsy aunt Hepatitis in viral diseases classified elsewhere(573.1) when she had mono PMH - PAST MEDICAL HISTORY OF Right Sciatica Seizure disorder (HCC) 02/04/2018 PAST SURGICAL HISTORY Procedure Laterality Date DELIVERY ONLY , low cervical x4 DELIVERY ONLY 10/14/2016 EXCISION GANGLION WRIST DORSAL/VOLAR PRIMARY Right KNEE SURGERY HX Right shaved patella and removed fat pad LIG/TRNSXJ FLP TUBE ABDL/VAG APPR UNI/BI Bilateral 10/14/2016 FAMILY HISTORY Problem Relation Age of Onset Hypertension Father Diabetes Father Hyperlipidemia Father Cataract Father other (FIBROMYALGIA) Sister Diabetes Maternal Aunt Cancer Maternal Grandmother Breast Cancer Paternal Grandmother Heart Paternal Grandmother Stroke Paternal Grandfather Anesthesia Problems No Family History Clotting Disorder No Family History Malig Hyperthermia No Family History Social History Tobacco Use Smoking status: Never Smokeless tobacco: Never Vaping Use Vaping Use: Never used Substance Use Topics Alcohol use: Yes Comment: occasional Drug use: No Current Outpatient Medications Medication Sig levETIRAcetam (KEPPRA) 750 mg tablet Take 1 tablet by mouth twice daily. No current facility-administered medications for this visit. Allergies As of Date: 02/20/2023 Allergen Noted Reaction BLEACH (SODIUM HYPOCHLORITE) 03/22/2016 Rash LAMICTAL [LAMOTRIGINE] 06/16/2018 Rash PINE TREES [TREES] 03/22/2016 Rash and Hives Fully Assessed 02/20/2023 Allergies and current medication updated:Yes EXAM: BP 104/60 Pulse 74 Resp 16 Ht 5' 3 (1.60m) Wt 147 lb (66.7kg) LMP 02/18/2023 BMI26.05 kg/(m^2). GENERAL: pleasant, female in no apparent distress Pap 11/23/22 reviewed and colp bx 12/17/22 EMB 01/30/23 reviewed Pelvic US 12/03/22 reviewed ASSESSMENT AND PLAN: Encounter Diagnosis ICD-10-CM 1. Abnormal uterine bleeding (AUB) N93.9 2. Dysmenorrhea N94.6 r/b/a to hysteroscopy with endometrial ablation reviewed. Contraception - tubal. Understands contraindication to future child bearing. Questions answered. Desires to proceed. Temitope Acuna MD documented [facility] History and physical note * Temitope Acuna MD - 02/20/2023 3:51 PM EDT Pre-Op History and Physical HPI: The patient is a 37 year old female presenting for pre-operative visit. She is scheduled for hysteroscopy with endometrial ablatoin, for menorrhagia and dysmenorrhea on 02/28/23. Procedure discussed along with risks, benefits and complications. Other alternatives discussed for management. Consent form signed? Yes. PAST MEDICAL HISTORY Diagnosis Date Anemia Complication of anesthesia nausea and vomiting Episode of recurrent major depressive disorder (HCC) 08/28/2018 Family history of epilepsy aunt Hepatitis in viral diseases classified elsewhere(573.1) when she had mono PMH - PAST MEDICAL HISTORY OF Right Sciatica Seizure disorder (HCC) 02/04/2018 PAST SURGICAL HISTORY Procedure Laterality Date DELIVERY ONLY , low cervical x4 DELIVERY ONLY 10/14/2016 EXCISION GANGLION WRIST DORSAL/VOLAR PRIMARY Right KNEE SURGERY HX Right shaved patella and removed fat pad LIG/TRNSXJ FLP TUBE ABDL/VAG APPR UNI/BI Bilateral 10/14/2016 Current Outpatient Medications Medication Sig Dispense Refill levETIRAcetam (KEPPRA) 750 mg tablet Take 1 tablet by mouth twice daily. 180 tablet 3 No current facility-administered medications for this visit. ALLERGIES: Bleach (Sodium Hypochlorite), Lamictal [Lamotrigine], and [place] [Trees] PERSONAL HISTORY: Social History Tobacco Use Smoking status: Never Smokeless tobacco: Never Vaping Use Vaping Use: Never used Substance Use Topics Alcohol use: Yes Comment: occasional Drug use: No FAMILY HISTORY: FAMILY HISTORY Problem Relation Age of Onset Hypertension Father Diabetes Father Hyperlipidemia Father Cataract Father other (FIBROMYALGIA) Sister Diabetes Maternal Aunt Cancer Maternal Grandmother Breast Cancer Paternal Grandmother Heart Paternal Grandmother Stroke Paternal Grandfather Anesthesia Problems No Family History Clotting Disorder No Family History Malig Hyperthermia No Family History REVIEW OF SYMPTOMS: GENERAL: denies fevers or chills ENDOCRINOLOGY: has not been on steroids Cardiology : denies palpitations or chest pain Respiratory: denies SOB or cough Hematology: denies history of prolonged bleeding or easy bruising or VTE Allergy: Denies history of personal or family history of allergy to anesthesia PHYSICAL EXAMINATION: VITALS: Blood pressure 104/60, pulse 74, resp. rate 16, height 5' 3 (1.6 m), weight 147 lb (66.7 kg), last menstrual period 02/18/2023. GENERAL: The patient is well nourished, well hydrated in no acute distress. , The patient is oriented to time, place, and person. NECK: Supple. No lynphadenopathy, normal thyroid, no thyromegaly. LUNGS: Clear to auscultation bilaterally. no wheezes, rhonchi or rales HEART: Regular rate and rhythm, Normal heart sounds, and No murmurs or gallops GENITALIA: Normal external genitalia, Urethral meatus normal, Bladder nontender, normal vagina and normal vaginal tone, normal cervix, normal uterus, size and consistency, normal adnexa without masses or tenderness, and perineum WNL WET PREP: Not indicated IMPRESSION: menorrhagia, dysmenorrhea PLAN: The risks/benefits/alternatives and personal involved for the planned hysteroscopy with endometrial ablation were reviewed with the patient. Her questions were answered to her satisfaction and she desires to proceed. Consent was signed. I reviewed with her postop instructions and expectations. I have reviewed and updated past medical and surgical history, medications and allergies Temitope Acuna M.D. documented in this encounterTr[facility]08[facility]23 Instructions* Patient Instructions* Sarita Giraldo APRN.TRACK WATCHMAN - 02/13/2023 9:50 AM EDT PATIENT PREOPERATIVE INSTRUCTIONS Temitope Acuna MD has scheduled you for your procedure at this surgery center: [facility]: [phone] -- [address] [address]. Please read below carefully for your personalized instructions. Dietary Restrictions: - No solid food after midnight. - You may have 12 ounces of clear liquids (water, clear juices such as apple juice or gatorade, carbonated beverages, clear tea, black coffee, jello) until 2 hours before scheduled arrival at facility. Is Patient Diabetic:No Medications: Unless instructed differently below, stay on all of your medications until your surgery. Approved medications to take the morning of surgery with a sip of water: Keppra If you start any new medications after today's visit, please contact the surgeon's office. Blood Thinning Medications: - Stop NSAIDS (Ibuprofen, Advil, Aleve, Motrin, Celebrex, Mobic, etc.) 7 days before surgery, as directed by your surgeon. - Stop Aspirin 7 days before surgery, as directed by your surgeon. - Stop Vitamin E, ALL multi-vitamins, herbals and dietary supplements 7 days before surgery. - You may take Tylenol (Acetaminophen) or any of your pain medications that do not contain aspirin or NSAIDS as needed. Important Reminders: - Candy, mints, and tobacco products are NOT permitted the morning of surgery. - Hearing aids, dentures and glasses may be worn the morning of surgery. - NO jewelry, body piercings, makeup, hairpins or contacts are to be worn the day of surgery. If you develop symptoms such as a fever, cold, or flu, or have other changes to your health within TWO DAYS of scheduled surgery or the morning of surgery, please contact the surgery center above. Personal Belongings: -Please have photo ID and insurance cards. -If you do not have a copy of advance directives on file with us, please bring a copy with you on the day of surgery. - Leave ALL valuables and money at home or with family members. For Outpatient Procedures: - YOU MUST HAVE A RESPONSIBLE [place] BI CONSULTANT TAKE YOU HOME. A STEWARD/STEWARDESS WINE OR LAMP SHADES SUPERVISOR CANNOT BE MADE A RESPONSIBLE [place] BI CONSULTANT. - We recommend that a responsible person stays with you overnight to take care of you. - You cannot stay in a hotel alone after outpatient surgery. You will not be permitted to have yoursurgery, if you do not have someone to take care of you. Arrival Time for Surgery: - The Surgery Center or hospital where you are having surgery will call the afternoon before surgery (or Saturday for Saturday surgery) with a scheduled arrival time. - If you have not heard by 4 pm, please contact the surgery center above. Please be aware that emergency situations arise, which may delay or change your surgical time. If this happens, we will notify you as soon as possible and regret any inconvenience. If you already have an Advance Directive, please fax a copy to [phone] or email to for it to be added to your chart. If you do not have an Advance Directive, you can find the appropriate form and more information at [email or web address]. We recommend that youcomplete the Advance Directive form found on the website and bring it with you the day of your surgery. It can be witnessed and scanned into your chart that day. Sarita Giraldo APRN.TRACK WATCHMAN documented in this encounterTr[facility]08-[facility]-2023 History and physical note * Sarita Giraldo APRN.CNP - 02/13/2023 9:40 AM EDT HISTORY AND PHYSICAL EXAMINATION SERVICE DATE: 02/13/2023 SERVICE TIME: 9:38 AM PRIMARY CARE PHYSICIAN: Adrianne Ignacio MD This is a virtual visit using [employer] video visit. It required patient-provider interaction for themedical decision making as documented below. I have communicated my name and active licensure. The patient's identity and physical location wereverified at the time of this visit. Either the patient or their legal reimbursement representative has been informed of the risks and benefits of and alternatives to treatment through a remote evaluation and consents to proceed with the evaluation remotely. This is a virtual visit using [employer] video visit. It required patient-provider interaction for themedical decision making as documented below. REASON FOR VISIT: Yamil Ng is a 37 year old female who is scheduled for Procedure(s): HYSTEROSCOPY, ABLATION ENDOMETRIAL NOVASURE (N/A) at the request of Dr. Temitope Acuna for consultation. My final recommendation will be communicated back to the requesting physician by way of shared medical record or letter. Subjective The patient has the following: ACTIVE PROBLEM LIST Ponv (Postoperative Nausea and Vomiting) Iron Deficiency Anemia Focal Epilepsy (Hcc) Encounter for Monitoring Anticonvulsant Therapy Vitamin D Deficiency Uri (Obstructive Sleep Apnea) Anxiety Episode of Recurrent Major Depressive Disorder (Hcc) Splenomegaly Anemia Ganglion Cyst of Wrist, Right Acute Pain of Right Knee Iron Deficiency Anemia Due to Sideropenic Dysphagia Gerd (Gastroesophageal Reflux Disease) COVID-19 Immunization Status Overdue - COVID-19 VACCINE (1) Overdue - never done No completion, postpone, frequency change, or communication history exists for this topic. CHIEF COMPLAINT: Menorrhagia with irregular cycle HPI: This 37 year old female is scheduled for the above procedure and presents to the [facility] virtually for pre-operative examination. Patient reports heavy menstrual bleeding and anemia (received 10 iron infusions). She underwent an endometrial biopsy 01/30/23 which was negative and desires an ablation. Denies fevers, chills, nausea, vomiting, abdominal pain, chest pain, and SOB. REVIEW OF SYSTEMS: General: No weight loss, malaise or fevers. Neurological: Positive for: seizures (last seizure 7 months ago; follows with neuro). Negative for: VP STRATEGY tumor, headaches, TIA and strokes. Respiratory: Positive for: obstructive sleep apnea and CPAP/BiPAP noncompliant. Negative for: asthma, COPD, current cough and pneumonia within 6 weeks. Cardiovascular: No history of HTN requiring medication, no history of angina, CHF, [place], cardiac surgery or stents. Denies rest pain, gangrene or revascularization/amputation for PVD. No history of cardiovascular symptoms or problems. GI: Positive for: GERD (Tums PRN) Negative for: abdominal pain, inflammatory bowel disease, liver disease and ETOH >2 drinks/day. : No history of dysuria, frequency or incontinence, stones or chronic kidney disease. No difficulty urinating, nocturia > 1 time per night or hematuria. 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 Positive for: vaginal bleeding. Endocrine: No history of diabetes. Has not taken steroids within the past 30 days. No history of endocrinological symptoms or problems. Hematology: Positive for: anemia (received 10 iron infusions) and iron deficiency anemia. Negative for: factor V Leiden, thrombocytopenia and chronic anti- coagulation/platelet meds. Oncology: No history of CA metastasis, chemo within 30 days, or radiotherapy within 90 days. No history of oncological symptoms or problems. Psych: No history of psychiatric symptoms or problems. Musculoskeletal: Negative for joint pain or swelling, back pain or muscle pain. PAST MEDICAL HISTORY Diagnosis Date Anemia Complication of anesthesia nausea and vomiting Episode of recurrent major depressive disorder (HCC) 08/28/2018 Family history of epilepsy aunt Hepatitis in viral diseases classified elsewhere(573.1) when she had mono PMH - PAST MEDICAL HISTORY OF Right Sciatica Seizure disorder (HCC) 02/04/2018 PAST SURGICAL HISTORY Procedure Laterality Date DELIVERY ONLY , low cervical x4 DELIVERY ONLY 10/14/2016 EXCISION GANGLION WRIST DORSAL/VOLAR PRIMARY Right KNEE SURGERY HX Right shaved patella and removed fat pad LIG/TRNSXJ FLP TUBE ABDL/VAG APPR UNI/BI Bilateral 10/14/2016 FAMILY HISTORY Problem Relation Age of Onset Hypertension Father Diabetes Father Hyperlipidemia Father Cataract Father other (FIBROMYALGIA) Sister Diabetes Maternal Aunt Cancer Maternal Grandmother Breast Cancer Paternal Grandmother Heart Paternal Grandmother Stroke Paternal Grandfather Anesthesia Problems No Family History Clotting Disorder No Family History Malig Hyperthermia No Family History Social History Tobacco Use Smoking status: Never Smokeless tobacco: Never Vaping Use Vaping Use: Never used Substance Use Topics Alcohol use: Yes Comment: occasional Drug use: No Prior to Admission medications as of 02/13/23 0942 Medication Sig Last Dose Taking levETIRAcetam (KEPPRA) 750 mg tablet Take 1 tablet by mouth twice daily. Yes No medication comments found. ALLERGIES Allergen Reactions Bleach (Sodium Hypo* Rash Lamictal [Lamotrigi* Rash [place] [Trees] Rash, Hives Objective PHYSICAL EXAM: (if completed, exam performed via video enabled technology) General: Alert and appropriate; in no acute distress; well-hydrated; well- nourished; happy, smiling, interactive. Skin: normal color, no rash or lesions. HEENT: Normocephalic; no abnormality or lesions noted. No ocular injection; visual acuity is grossly normal. Hearing grossly normal. Mucous membranes moist and pink. Full neck ROM, no cervical lymph nodes noted. Cardiovascular: Self palpated radial pulse, regular when counted aloud by patient. Respiratory: Breathing non-labored. Equal chest rise with normal respiratory effort. Abdomen: No tenderness upon patient self palpation of abdomen. Extremities: No obvious deficit. Neurological: No obvious deficit. PAIN ASSESSMENT: VITALS: Ht 5' 3[pt reported[ (1.60m) Wt 145 lb (65.8kg) LMP 01/19/2023 BMI 25.69 kg/(m^2). Diagnostic tests reviewed for today's visit: Lab Value Units Date High Low HB 12.3 g/dL 01/28/2023 15.5 11.5 HCT 39.3 % 01/28/2023 46.0 36.0 WBC 7.45 k/uL 01/28/2023 11.00 3.70 PLT 296 k/uL 01/28/2023 400 150 NA 138 mmol/L 11/22/2022 144 136 K 4.3 mmol/L 11/22/2022 5.1 3.7 GLUC 83 mg/dL 11/22/2022 99 74 BUN 14 mg/dL 11/22/2022 21 7 CREAT 0.88 mg/dL 11/22/2022 0.96 0.58 PTSEC No results within date range. INR No results within date range. APTT No results within date range. ALT 13 U/L 11/22/2022 38 7 AST 25 U/L 11/22/2022 35 13 TBILI 0.3 mg/dL 11/22/2022 1.3 0.2 TSH 3.130 mIU/L 01/28/2023 4.200 0.270 Lab Value Units Date High Low HCGQT No results within date range. UHCG No results within date range. HCG, BODY* No results within date range. Lab Value Units Date High Low ABORHD No results within date range. ABSCREEN No results within date range. Hemoglobin A1C (%) Date Value 12/17/2018 4.7 No results found for this or any previous visit (from the past 8760 hour(s)). No results found for this or any previous visit (from the past 95797 hour(s)). Most recent echocardiogram: 10/05/2008 CONCLUSIONS Normal LV size and systolic function. Normal diastolic function. Normal RV size and systolic function. Mild LAE. Trivial MR. 1+ TR. RVSP 26mmHg. Trivial-1+ PI. There is no previous echo for comparison. Assessment Patient has the following medical conditions which may affect armando-operative course: Focal epilepsy (HCC) Assessment: Controlled on Keppra, follows with neuro, pt reports that last seizure was ~7 months ago GERD (gastroesophageal reflux disease) Assessment: No current Rx, uses Tums as needed, follows with PCP 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agia Assessment: Due to ongoing issues with vaginal bleeding, scheduled for surgery, has received 10 iron infusions, most recent CBC/iron studies reviewed (from 01/28/23) URI (obstructive sleep apnea) Assessment: Pt reports no current CPAP usage PONV (postoperative nausea and vomiting) Assessment: Potential issue, had issues in the past with PONV Foster Activity Status Index: METS: Climb a flight of stairs or walk up a hill (5.50 METs) DASI Score: 5.5 Patient denies any chest pain or undue shortness of breath with the above physical activity. Clinical Frailty Scale: 3. Well, with treated comorbid disease STOP-Bang Score: Often feels tired, fatigued, or sleepy during the daytime Denies snoring loudly Has not been observed to stop breathing or choking/gasping during sleep Denies having high blood pressure BMI less than or equal to 35 kg/m^2 Patient 50 years old or younger Does not have a large neck Non-male patient STOP-Bang Score: 1 [id number] Score: Age: <65 Sex: female CHF history: No Hypertension history: No Stroke/TIA/thromboembolism history: No Vascular disease history: No Diabetes history: No [id number] Score: 1 ASA Class: 3 ANESTHESIA FINDINGS: Intubation History: No abnormal airway history Significant Anesthesia Considerations: potential postop nausea/vomiting Airway History: No abnormal airway history Airway Note 02/20/21 Final Airway Details Final airway type: supraglottic airway Number of attempts at approach: 1 Final Supraglottic Airway: i-gel Size 3 Seal Adequate: yes Comments Easy atraumatic x 1 I - PHYSICAL EVALUATION AIRWAY Patient intubated: No. Tracheostomy tube not present Mallampati: I. TM distance: >3 FB. Neck ROM: full ROM without neurological symptoms. Mouth opening: adequate. Short neck: no. Thick neck: no Lip Bite Test: I Microretrognathia/Micronagthia/Recessed Chin: No DENTAL Dental findings: teeth intact. II - ANESTHESIA PLAN ASA Score: 3 Anesthetic plan additional comments: *[facility] - anesthesia choice. Beta Harsha Monitoring Plan Post Procedure Analgesic Plan Prepared for Surgery: optimally prepared for surgery. Labs/EKG not indicated per [facility] protocol. CBC/iron studies from 01/28/23 reviewed. CONSULTS: Patient does not require consults for optimization at this time Planned Anesthetic: anesthesia choice The Following Tests/Procedures Have Been Initiated: No orders of the defined types were placed in this encounter. Instructions Given to Patient: Patient given verbal instructions and voices comprehension and compliance. Copy sent electronically via My Chart, email, or mobile device. I spent more than 0-20 minutes [id number] with the patient and over half the time was devoted to counseling and/or coordination of care. This is a virtual visit. It required patient-provider interaction for the medical decision making as documented above. SIGNATURE: Sarita Giraldo APRN.CNP PATIENT NAME: aYmil Ng DATE: February 13, 2023 TIME: 9:38 AM PAGER/CONTACT #: documented in this encounterTr[facility]08-22-2023 Instructions* Patient Instructions* Lyric Nova APRN.CNP - 02/12/2023 11:35 AM EDT covid and influenza test ordered You will be notified in 12-24 hours, [facility] until results are back Rest, increase water intake Motrin or Tylenol as needed for fever or pain. Salt water gargles, chloraseptic spray or lozenges as needed for sore throat. Warm beverages, honey. Nasal saline spray as needed Cool mist humidifier at night Tylenol (generic acetaminophen) 500 mg-2 tabs every 8 hrs. as needed for fever and aches Ibuprofen 600 mg (3-200mg tablets) every 6 hours -Sudafed (generic is fine), behind the counter, 2x30 mg tabs twice daily as needed for congestion -Mucinex (generic is fine) Guaifenesin 1200 mg twice daily to help with cough and to thin out mucus * Seek medical care immediately, call 911, go to ER if you have chest pain, difficulty breathing, shortness of breath, inability to swallow. documented in this encounterTr[facility]08-[facility]-2023 History of Present illness Narrative* Lyirc Nova APRN.CNP - 02/12/2023 11:24 AM EDT Subjective The history is provided by the patient. No russian language instructor was used. HPI Yamil Ng is a 37 year old female who presents today for CC of sore throat and bilateral earpain for one day. She has not used any medications. She is also having a cough. 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 BP 102/68 Pulse 68 Temp 36.7 C (98 F) Resp 16 Wt 66.4 kg (146 lb 6.4 oz) LMP 01/19/2023 (Exact Date) SpO2 98% BMI 25.93 kg/m Social History Tobacco Use Smoking status: Never Smokeless tobacco: Never Vaping Use Vaping Use: Never used Substance Use Topics Alcohol use: Yes Comment: occasional Drug use: No PAST MEDICAL HISTORY Diagnosis Date Anemia Complication of anesthesia nausea and vomiting Episode of recurrent major depressive disorder (HCC) 08/28/2018 Family history of epilepsy aunt Hepatitis in viral diseases classified elsewhere(573.1) when she had [facility] - PAST MEDICAL HISTORY OF Right Sciatica Seizure disorder (HCC) 02/04/2018 I have confirmed and edited as necessary, the [facility] Review of Systems Constitutional: Negative for chills and fever. HENT: Positive for ear pain and sore throat. Negative for congestion and sinus pain. Respiratory: Positive for cough. Negative for sputum production, shortness of breath and wheezing. Cardiovascular: Negative for chest pain. Musculoskeletal: Negative for myalgias. Neurological: Negative for headaches. Objective Physical Exam Vitals and nursing note reviewed. HENT: Head: Normocephalic and atraumatic. Right Ear: Ear canal and external ear normal. Tympanic membrane is bulging (slight). Left Ear: Ear canal and external ear normal. Tympanic membrane is bulging (slight). Nose: No mucosal edema, congestion or rhinorrhea. Right Sinus: No maxillary sinus tenderness or frontal sinus tenderness. Left Sinus: No maxillary sinus tenderness or frontal sinus tenderness. Mouth/Throat: Pharynx: Uvula midline. Posterior oropharyngeal erythema (mild) present. No oropharyngeal exudate. Cardiovascular: Rate and Rhythm: Normal rate and regular rhythm. Heart sounds: Normal heart sounds. Pulmonary: Effort: Pulmonary effort is normal. Breath sounds: Normal breath sounds. Lymphadenopathy: Head: Right side of head: No submental, submandibular or tonsillar adenopathy. Left side of head: No submental, submandibular or tonsillar adenopathy. Cervical: No cervical adenopathy. Skin: General: Skin is warm and dry. Neurological: Mental Status: She is alert. Psychiatric: Mood and Affect: Affect normal. ASSESSMENT/PLAN: 1. Sore throat - ICD9: 462, ICD10: J02.9 (primary diagnosis) - suspect viral - Group A strep molecular testing negative - Discussed supportive care treatment with fluids, rest and analgesia. - The patient may also use warm salt water gargles, throat lozenges and/or OTC throat spray as needed. - Call back if drooling, increased temperature, symptoms of dehydration and/or still sick in one week - STREP A MOLECULAR (POC) 2. URI, acute - ICD9: 465.9, ICD10: J06.9 - Discussed viral etiology and rationale for treatment. - Symptomatic treatment with prn analgesia - Supportive care with fluids and rest - COVID NAAT, ROUTINE Diagnosis and treatment plan were discussed and questions were answered to the patient's satisfaction. Pt acknowledged understanding of concepts and follow up plan. Specific signs and symptoms that would indicate the need for higher level of care were discussed indetail warranting prompt ER evaluation. Lyric Nova APRN.TRACK WATCHMAN documented in this encounterTrinity [facility]08-18-2023 Miscellaneous Notes* Telephone Encounter - Anu Anthony LPN - 02/08/2023 11:21 AM EDT Pt returned call and given results and has Ablation scheduled in [place] in February. Anu Anthony LPN * Telephone Encounter - Anu Anthony LPN - 02/08/2023 10:31 AM EDT Voicemail and Sendmeboxhart message to pt to contact office for results and to verify that she wants to proceed with ablation. Anu Anthony LPN * Telephone Encounter - Temitope Acuna MD - 02/08/2023 10:25 AM EDT My appologies I thought I sent her a result note. Neg. EMB, ok to proceed w/ ablation. Temitope Acuna MD * Telephone Encounter - Georgina Randolph RN - 02/07/2023 10:41 AM EDT Patient viewed EMB results in Mychart. Asking for RR to review and interpret the results. Aware RR is back in the office tomorrow. Georgina Highman RN documented in this encounterTrinity Health [facility]08-15-2023 Miscellaneous Notes* Telephone Encounter - Addis Mackay LPN - 02/05/2023 9:45 AM EDT Message sent to schedulers at [place] to have Tanesha available * Telephone Encounter - Ashley Oh RN - 01/31/2023 10:21 AM EDT Please verify case entered correctly by Tex. Ashley Oh RN * Telephone Encounter - Ashley Oh RN - 01/30/2023 11:27 AM EDT Patient saw RR today and wants to schedule surgery 02/28/[address] [facility]. Plans for hysteroscopy, endometrial ablation for menorrhagia and dysmenorrhea. Michael, are you able to schedule this one too? Ashley Oh RN documented in this encounterTrinity Health [facility]08-09-2023 Instructions* Patient Instructions* Aliza Rock Ma - 01/30/2023 9:29 AM EDT YOUR RECOVERY After your biopsy you may have: Vaginal bleeding (less than a normal menstrual period) Mild cramping Do NOT put anything in the vagina for 1 week after your endometrial biopsy. This includes: tampons douches and refraining from having sexual intercourse If you have any discomfort, you may take an over the counter pain medication (motrin, advil, ibuprofen, tylenol, etc). If this does not relieve your discomfort, contact the office. It is okay to wear a sanitary pad until the discharge and spotting stops. RISKS Although problems seldom occur with endometrial biopsies, there can be some complications. You may feel faint during and shortly after the procedure as well as have some bleeding after the procedure.There is also a risk of infection after the procedure. These complications are rare and can be easily treated. You should contact you doctor is you have any of the following: Heavy bleeding (more than your normal period) Bleeding with clots Severe abdominal pain Fever (more than 100.4F) Foul smelling vaginal discharge RESULTS We will have the results of your biopsy in 1-2 weeks. If you do not hear the results of your biopsyafter 2 weeks, please contact the office for the results. If you have any additional questions or concerns please do not hesitate to contact the office. documented in this encounterTrinity Health [facility]08-09-2023 History of Present illness Narrative* Temitope Acuna MD - 01/30/2023 9:27 AM EDT Yamil is a 37 year old Female who presents today for an endometrial biopsy for abnormal uterine bleeding, dysmenorrhea. test: negative UNIVERSAL PROTOCOL / SAFETY CHECKLIST Procedure to be Performed: Endometrial ablation Sign In: A Moment of CARE was completed. Personnel directly involved with the procedure wore the appropriate PPE (Personal Protective Equipment). Patient/Surrogate Stated/Verified: PATIENT VERIFIED(optional for EMERGENT procedures): Patient name, Date of , Relevant allergies, and The intended procedure Time Out Communication: Intended patient and procedure match the source documents. Consent documented and matches the intended procedure. No implant(s) inserted. Sign Out: SIGN OUT (optional for EMERGENT procedures): All specimen containers correctly labeled. All instruments, equipment, possible retained foreign bodies accounted for. Post-procedure follow-up management communicated and Plan of Care Visit completed when applicable. Temitope Acuna M.D. PROCEDURE: EXTERNAL GENITALIA: Normal in appearance without lesions VAGINA: Normal in appearance without lesions BIOPSY: Speculum placed into the vagina with excellent visualization of the cervix. Cervix cleaned with betadine. Anterior lip of cervix grasped with single toothed tenaculum. Uterus sounded to 9 cm.Pipelle inserted into the uterus without difficulty and endometrial biopsy obtained. Specimen labeled and sent to pathology. Procedure Summary: Patient tolerated procedure well. ASSESSMENT: abnormal uterine bleeding PLAN: Specimens labeled and sent to Pathology. Will notify patient of results in 1-2 weeks. Post-procedure instructions reviewed and written material given to the patient. would like endoemtrial ablation, has tubal for contraception Temitope Acuna MD documented in this encounterTrinity [facility]08-07-2023 History of Present illness Narrative* BettinaCristyANGÉLICA.TRACK WATCHMAN - 01/28/2023 2:20 PM EDT 01/28/2023 Patient presents with: Follow Up: Iron SUBJECTIVE: This is a 37 year old that is here today for Above Complaints. Completed iron transfusions. Due for labs. Has appointment with PIPE PRODUCTION WORKER for endometrial biopsy next week. Discussing hysterectomy vs ablation. Still feels fatigued. Denies dizzinesss, lightheadedness, SOB, or dyspnea. PAST MEDICAL HISTORY Diagnosis Date Anemia Complication of anesthesia nausea and vomiting Episode of recurrent major depressive disorder (HCC) 08/28/2018 Family history of epilepsy aunt Hepatitis in viral diseases classified elsewhere(573.1) when she had mono PMH - PAST MEDICAL HISTORY OF Right Sciatica Seizure disorder (HCC) 02/04/2018 ALLERGIES Bleach (Sodium Hypochlorite), Lamictal [Lamotrigine], and [place] [Trees] MEDICATIONS Current Outpatient Medications Medication Sig promethazine (PHENERGAN) 25 mg tablet Take 1 tablet by mouth every 6 hours as needed. famotidine (PEPCID) 40 mg tablet Take 1 tablet by mouth daily at bedtime. levETIRAcetam (KEPPRA) 750 mg tablet Take 1 tablet by mouth twice daily. Current Facility-Administered Medications Medication Dose Route Frequency iron sucrose 200 mg injection (VENOFER) 200 mg INTRAVENOUS q 24 H PRN Medications and allergies reviewed by this provider. SOCIAL HISTORY Social History Tobacco Use Smoking status: Never Smokeless tobacco: Never Vaping Use Vaping Use: Never used Substance Use Topics Alcohol use: Yes Comment: occasional Drug use: No REVIEW OF SYSTEMS All other reviewed and negative other than HPI. OBJECTIVE: BP 98/62 Pulse 60 Resp 16 Wt 67 kg (147 lb 9.6 oz) LMP 11/09/2022 SpO2 98% BMI 26.15 kg/m . Vital signs reviewed by this provider. APPEARANCE Well appearing, alert, in no acute distress, well-hydrated, well nourished. EYES conjunctiva and sclera normal. HEART RRR with normal S1 and S2, no murmurs, no gallops, no JVD appreciated LUNG clear to auscultation. No wheezes, rhonchi or rales SKIN Skin color, texture, turgor normal, no suspicious rashes or lesions to exposed skin HEPATITIS B(1 of 3 - 3-dose series) Never done COVID-19 VACCINE(1) Never done HEPATITIS C SCREENING Never done INFLUENZA(1) due on 02/22/2023 DTAP,TDAP,TD(3 - Td or Tdap) due on 07/30/2026 PAP TESTING due on 11/24/2027 HPV TESTING due on 11/24/2027 HIV SCREENING Completed HPV VACCINE Aged Out ASSESSMENT/PLAN: 1. Iron deficiency anemia due to chronic blood loss - ICD9: 280.0, ICD10: D50.0 (primary diagnosis) - recheck labs today - CBC + DIFF - FERRITIN BLD - IRON + TIBC - follow-up with PIPE PRODUCTION WORKER 2. Fatigue, unspecified type - ICD9: 780.79, ICD10: R53.83 - may be due to TANYA - TSH BLD Cristy Dunbar APRN.TRACK WATCHMAN Prescription instructions reviewed with patient as applicable. Patient advised if symptoms do not improve or if symptoms worsen sooner, to contact their primary care physician. Potential red flag symptoms discussed with the patient. Reviewed appropriate action plan to take if red flag symptoms occur. Patient agreeable to treatment plan. I spent a total of 20 minutes on the date of the service which included preparing to see the patient, [id number] patient care, completing clinical documentation, obtaining and/or reviewing separately obtained history, performing a medically appropriate examination, counseling and educating the pat ient/family/caregiver, and ordering medications, tests, or procedures. documented in this encounterTrinity [facility]08-01-2023 Miscellaneous Notes* Telephone Encounter - Georgina Randolph RN - 01/22/2023 10:47 AM EDT Called patient. Scheduled for 01/30 @ 9:40 * Telephone Encounter - Temitope Acuna MD - 01/22/2023 10:35 AM EDT Please reschedule until next week. Sat. 940 opening will work or can come at 850 that am or 3pm. Otherwise, may have to look at someone else next week. Thank you. Temitope Acuna MD * Telephone Encounter - Addis Mackay LPN - 01/21/2023 9:30 AM EDT Patient is scheduled for an emb on 01/23/2023 and called stating that she started her menses today and reports that her menses are typically heavy for a week. Patient asking if she needs to reschedule? documented in this encounterTrinity Health [facility]07-20-2023 Miscellaneous Notes* Telephone Encounter - Rosenda Valencia MD - 01/10/2023 7:34 AM EDT See 12/25/22 encounter. pt with h/o menorrhagia and anemia. Agree with IV iron infusions and checkCBC after completed. Agree with appointment with a physician to further discuss this, and treatmentoptions. Hopefully her anemia has improved and she starts feeling improved. I would assume fatigue is likely secondary to anemia. We really need to come up with a plan for her bleeding documented in this encounterTrinity Health [facility]06-28-2023 Miscellaneous Notes* Telephone Encounter - Regine Snider MA - 12/19/2022 7:06 PM EDT Patient notified of results, verbalizes understanding of instructions. The following approved medication requests have been transmitted electronically. Requested Prescriptions Signed Prescriptions Disp Refills promethazine (PHENERGAN) 25 mg tablet 30 tablet 1 Sig: Take 1 tablet by mouth every 6 hours as needed. Authorizing Provider: CRISTY DUNBAR MA * Telephone Encounter - Cristy Dunbar APRN.CNP - 12/19/2022 5:42 PM EDT I sent in prescription for phenergan for nausea. Medication can cause drowsiness so she should not drive or operate heavy machinery while taking. Follow-up in office if persists. Cristy Dunbar APRN.CNP * Telephone Encounter - Jose Guadalupe Gonzalez DO - 12/19/2022 4:59 PM EDT Okay well I would recommend some Phenergan but this needs to be prescribed by whoever is ordering the iron. I think it is either the nurse practitioner in primary care or someone in PERIPHERAL VASCULAR TECH. Jose Guadalupe Gonzalez DO * Telephone Encounter - Pallavi Rodriguez LPN - 12/19/2022 4:43 PM EDT No she is not taking oral iron. She stopped oral and switched to IV due to the issue of nausea. She states the nausea is constant even on days she is not getting iron infusions. Pallavi Rodriguez LPN * Telephone Encounter - Jose Guadalupe Gonzalez DO - 12/19/2022 4:38 PM EDT I haven't seen her as patient. Is she still taking oral iron? Jose Guadalupe Gonzalez DO * Telephone Encounter - Wendy Vazquez RN - 12/19/2022 3:27 PM EDT patient states that she is having nausea and loss of appetite on the IV iron. No vomiting. She was hoping she wouldn't have these symptoms with the IV since she had nausea and loss of appetite with the oral iron. Patient would like to know if there is something you could give her to help with the nausea at home? If so she uses [facility] in [place]. Please notify patient is something is ordered so she can go to pharmacy. Thanks documented in this encounterTrinity Health [facility]06-20-2023 Miscellaneous Notes* Telephone Encounter - Foreign Kendrick RN - 12/11/2022 1:00 PM EDT Patient returned call and given provider's message below with verbalized understanding. Patient agreeable. * Telephone Encounter - Teresa Trujillo LPN - 12/11/2022 12:27 PM EDT Message left for patient to return call to review results and recommendations with her. * Telephone Encounter - Teresa Trujillo LPN - 12/11/2022 12:27 PM EDT ----- Message from Cristy Dunbar APRN.CNP sent at 12/11/2022 10:41 AM EDT ----- Labs continue to show iron deficiency anemia although she has has some improvement. Recommend she proceed with iron transfusions. Cristy Dunbar APRN.CNP documented in this encounterTrinity Health [facility]06-20-2023 History of Present illness Narrative* Kaylie Desouza RN - 12/11/2022 12:05 PM EDT canceled. documented in this encounterTrinity Health [facility]06-19-2023 Miscellaneous Notes* Telephone Encounter - Cristy Dunbar APRN.CNP - 12/10/2022 1:36 PM EDT Reviewed. Cristy Dunbar APRN.BHARAT * Telephone Encounter - Kallie Zamora LPN - 12/10/2022 1:15 PM EDT Felicia with [employer] prior auth dept calls pt questions for prior auth for iron infusion. Provider information given. Felicia reports she is sending prior auth to the review dept and will let them know pt is scheduled for first infusion tomorrow. Ref# [id number] - A fax will also be sent to the provider's office with this information. Kallie Zamora LPN documented in this encounterTrinity Health [facility]06-16-2023 Miscellaneous Notes* Telephone Encounter - Domitila Suh - 12/07/2022 10:58 AM EDT Patient scheduled appts Start email sent * Telephone Encounter - Domitila Suh - 12/07/2022 9:20 AM EDT 1st attempt. Message left for patient to schedule Iron per treatment plan. Please schedule Iron sucrose x 5 for 2 weeks. IRON SUCROSE/1-5/ORDERING PROV J PODLOGAR/AUTH EXP?* can be 30 min in TR13 documented in this encounterTrinity Health [facility]06-16-2023 History of Present illness Narrative* Cristy Dunbar APRN.CNP - 12/07/2022 6:29 AM EDT Order for iron sucrose placed. Cristy Dunbar APRN.CNP documented in this encounterTrinity Health [facility]06-09-2023 Miscellaneous Notes* Telephone Encounter - Anu Anthony LPN - 11/30/2022 4:59 PM EDT Pt notified and appointment scheduled. Anu Anthony LPN * Telephone Encounter - Lalita Mccoy APRN.CNP - 11/30/2022 4:47 PM EDT Pap LSIL & HPV +, she will need a colp. Order filed. Lalita Mccoy APRN.CNP documented in this encounterTrinity Health [facility]06-06-2023 History of Present illness Narrative* Adrianne Ignacio MD - 11/27/2022 4:04 PM EDT Chief Complaint Patient presents with: ER F/U Dizziness HPI Yamil Ng is a 37 year old female who presents here today for ER Follow Up.. Evaluated at [facility] yesterday for dizziness, SOB, and headache which started same day. Worried about worsening anemia with last hemoglobin 7.6. Workup in the ED showed improving hemoglobin to 8. BMP,PT, INR and PTT were normal as well. Orthostatics negative. UA negative. CXR normal. Given IV fluids and discharged home with recommendation to f/u with our office in 5-7 days. Since discharge, patient states that she still feels lightheaded and SOB with exertion. Describes SOB as tightness like she cannot take a full deep breath. Had tunnel vision with lightheadedness yesterday, but today feels a little woozy. Admits to chronic nausea from her Keppra with decreased appetite today. Stools darker since starting iron. Drinking 12-14 glasses of water per day. Denies fever/chills, vomiting, diarrhea, chest pain, palpitations, syncope, bleeding symptoms. Working with PIPE PRODUCTION WORKER for heavy periods and considering hysterectomy. Past medical history, appointments, medications, allergies reviewed. Previous Medical History PAST MEDICAL HISTORY Diagnosis Date Anemia Complication of anesthesia nausea and vomiting Episode of recurrent major depressive disorder (HCC) 08/28/2018 Family history of epilepsy aunt Hepatitis in viral diseases classified elsewhere(573.1) when she had mono PMH - PAST MEDICAL HISTORY OF Right Sciatica Seizure disorder (HCC) 02/04/2018 Previous Surgical History PAST SURGICAL HISTORY Procedure Laterality Date DELIVERY ONLY , low cervical x4 DELIVERY ONLY 10/14/2016 EXCISION GANGLION WRIST DORSAL/VOLAR PRIMARY Right KNEE SURGERY HX Right shaved patella and removed fat pad LIG/TRNSXJ FLP TUBE ABDL/VAG APPR UNI/BI Bilateral 10/14/2016 Family History FAMILY HISTORY Problem Relation Age of Onset Hypertension Father Diabetes Father Hyperlipidemia Father Cataract Father other (FIBROMYALGIA) Sister Cancer Maternal Grandmother Breast Cancer Paternal Grandmother Heart Paternal Grandmother Stroke Paternal Grandfather Diabetes Maternal Aunt Anesthesia Problems No Family History Patient Allergies ALLERGIES Allergen Reactions Bleach (Sodium Hypo* Rash Lamictal [Lamotrigi* Rash [place] [Trees] Rash, Hives Current Medications Current Outpatient Medications on File Prior to Visit Medication Sig ferrous sulfate 325 mg (65 mg iron) tablet Take 1 tablet by mouth twice daily with meals. famotidine (PEPCID) 40 mg tablet Take 1 tablet by mouth daily at bedtime. levETIRAcetam (KEPPRA) 750 mg tablet Take 1 tablet by mouth twice daily. No current facility-administered medications on file prior to visit. Social History Social History Tobacco Use Smoking status: Never Smokeless tobacco: Never Vaping Use Vaping Use: Never used Substance Use Topics Alcohol use: Yes Comment: occasional Drug use: No Review of Symptoms REVIEW OF SYSTEMS See HPI EXAM: BP 104/64 Pulse 71 Resp 16 Wt 66.3 kg (146 lb 3.2 oz) LMP 11/09/2022 SpO2 98% BMI 25.90kg/m General Appearance: Well appearing, alert, in no acute distress, well-hydrated, well nourished.. Skin: Skin color, texture, turgor normal, no suspicious rashes or lesions. Lungs: Lungs clear to auscultation. No wheezing, rhonchi, rales.. Heart: RRR without murmur, gallop, or rubs. No ectopy. Abdomen: Normal abdominal exam, Abdomen soft, non-tender. Bowel sounds normal. No masses, organomegaly. Extremities: No deformities, edema, skin discoloration, clubbing or cyanosis. Good capillary refill. . Health Maintenance List HEPATITIS B(1 of 3 - 3-dose series) Never done COVID-19 VACCINE(1) Never done HEPATITIS C SCREENING Never done PAP TESTING due on 03/29/2021 HPV TESTING due on 03/29/2021 INFLUENZA(Season Ended) due on 02/22/2023 DTAP,TDAP,TD(3 - Td or Tdap) due on 07/30/2026 HIV SCREENING Completed ASSESSMENT/PLAN: 1. Lightheadedness - ICD9: 780.4, ICD10: R42 (primary diagnosis) Improving today. Likely 2/2 iron deficiency anemia. Sent home with FOBT test and will have her continue iron, pushing PO fluids, and discussed eating 3 meals per day. Red flags for re-assessment reviewed with patient in detail. - FECAL OCCULT BLOOD TEST 2. SOB (shortness of breath) - ICD9: 786.05, ICD10: R06.02 See above. - FECAL OCCULT BLOOD TEST 3. Iron deficiency anemia, unspecified iron deficiency anemia type - ICD9: 280.9, ICD10: D50.9 See above. - FECAL OCCULT BLOOD TEST Adrianne Ignacio MD documented in this encounterTrinity Health System [facility]06-02-2023 Miscellaneous Notes* Telephone Encounter - Cristy Dunbar APRN.CNP - 11/23/2022 1:20 PM EDT Reviewed. Cristy Dunbar APRN.CNP * Telephone Encounter - Sarita Roche RN - 11/23/2022 1:14 PM EDT Pt called and is notified of providers results and instructions. Pt voices understanding. Sent information to Pt via [email or web address] per Pts request. Pt reports she was at her OBGYN right now. Sarita Roche RN * Telephone Encounter - Cristy Dunbar APRN.CNP - 11/23/2022 12:39 PM EDT Needs to start oral iron twice a day which I will send to the pharmacy. Just tell her not to take the Pepcid at the same time as the last time Dr. Allen stopped her pantoprazole due to absorption. Ifshe has constipation with it she can use over the counter miralax or colace stool softeners. Also needs to pick kit up to check for hidden blood in stool. I would also have her talk to her PIPE PRODUCTION WORKER about heavy periods. We will need to recheck her levels in 4 weeks, however if she notes increasing shortness of breath, fatigue, notes blood in stool or urine or becomes dizzy or lightheaded will need to go to ER. Her hemoglobin is 7.6 and when it gets under 7 we normally transfuse blood. Iron levels were very low the rest of her blood work is in acceptable ranges. Cristy Dunbar APRN.BHARAT * Telephone Encounter - Yoan San LPN - 11/23/2022 11:07 AM EDT Patient returned call and went over results, notes from Cristy Dunbar IRRIGATION PUMP INSTALLER. Patient said she is not on her menstrual cycle right now, she is fatigued, slight shortness of breath if she is running around with the kids. No other bleeding issues no blood in urine or stool or gums. * Telephone Encounter - Sarah Rutledge LPN - 11/23/2022 9:37 AM EDT When pt calls back ask the following questions also. 11/23/2022 9:34 AM EDT Back to Top Also ask if she has any other bleeding symptoms bleeding gums, black stool or blood in stool or urine. ERIN Dsouza LPN * Telephone Encounter - Sarah Rutledge LPN - 11/23/2022 8:34 AM EDT Left a message for pt to call the office and ask to speak to a nurse. 11/23/2022 6:44 AM EDT Back to Top Hemoglobin is low- patient didn't complain of any symptoms such as dizziness, lightheadedness, shortness of breath or fatigue in off. She did say she has a hx of heavy irregular periods. Is she currently on her menstrual cycle and if so is it heavier than normal? Is she experiencing any symptoms today? Cristy MederoslogANGÉLICA lovett.BHARAT Dunbar APRN.BHARAT Rutledge LPN documented in this encounterTrinity Health System [facility]06-02-2023 History of Present illness Narrative* Lalita Mccoy APRN.BHARAT - 11/23/2022 1:17 PM EDT Accounts Receivable Executive offered: Patient declines. Yamil is a 37 year old who presents for an annual gynecologic exam with complaints, heavy bleeding and severe anemia . Menses: cycles every 5-6 weeks and 7-8 days of flow. Large clots with heavy flow(3 days) needing tochange a pad every 1 to 1.5 hours Contraception: tubal HPV vaccine: No Last Pap: 04/06/2016 normal HPV: 04/02/2016 negative History of abnormal pap: No Last mammogram: never Sexually active: Yes Pain with intercourse: No Postcoital bleeding: No OB History T4 L4 SAB0 IAB0 Ectopic0 Multiple0 Live Births4 Mending Carrier History LMP: 11/09/2022, Having periods Age at Menarche: Age at First : Age at Menopause: Mending Carrier History Comments: Sexual Activity: Yes; Male Contraception: Condom, Vasectomy PAST MEDICAL HISTORY Diagnosis Date Anemia Complication of anesthesia nausea and vomiting Episode of recurrent major depressive disorder (HCC) 08/28/2018 Family history of epilepsy aunt Hepatitis in viral diseases classified elsewhere(573.1) when she had mono PMH - PAST MEDICAL HISTORY OF Right Sciatica Seizure disorder (HCC) 02/04/2018 PAST SURGICAL HISTORY Procedure Laterality Date DELIVERY ONLY , low cervical x4 DELIVERY ONLY 10/14/2016 EXCISION GANGLION WRIST DORSAL/VOLAR PRIMARY Right KNEE SURGERY HX Right shaved patella and removed fat pad LIG/TRNSXJ FLP TUBE ABDL/VAG APPR UNI/BI Bilateral 10/14/2016 FAMILY HISTORY Problem Relation Age of Onset Hypertension Father Diabetes Father Hyperlipidemia Father Cataract Father other (FIBROMYALGIA) Sister Cancer Maternal Grandmother Breast Cancer Paternal Grandmother Heart Paternal Grandmother Stroke Paternal Grandfather Diabetes Maternal Aunt Anesthesia Problems No Family History SOCIAL HISTORY Social History Tobacco Use Smoking status: Never Smokeless tobacco: Never Vaping Use Vaping Use: Never used Substance Use Topics Alcohol use: Yes Comment: occasional Drug use: No REVIEW OF SYSTEMS Abdomen: No abdominal pain, vomiting, diarrhea, or constipation. No bloating, early satiety, indigestion, or increased flatulence.+nausea due to medication, little appetite Bladder: No dysuria, gross hematuria, urinary frequency, urinary urgency, or incontinence. Breast: No breast lumps, nipple d/c, overlying skin changes, redness or skin retraction. Allergies and current medication updated:Yes EXAM: BP 100/70 Ht 5' 3 (1.60m) Wt 145 lb (65.8kg) LMP 11/09/2022 BMI 25.69 kg/(m^2). GENERAL: pleasant, female in no apparent distress HEENT: Normocephalic, atraumatic, mucus membranes moist, and no lesions NECK: Supple, full range of motion, no adenopathy, and thyroid normal DERMATOLOGY: Normal, without lesions, non-icteric, and non-hirsute BREAST: soft, non-tender, symmetric, no dominant mass, normal nipple-areolar complex, no lymphadenopathy, and no nipple discharge CHEST: Normal inspiratory effort ABDOMEN: soft, non-tender, and no masses PELVIC: external genitalia normal, normal Bartholin's glands, urethra, [place]'s glands, no vulvar lesions, no cervical lesions, good vaginal support, physiologic discharge present, normal appearing perineal body and perianal region BIMANUAL: uterus normal size, shape and consistency, no adnexal masses, and non-tender RECTOVAGINAL: deferred. NEURO: alert and oriented x3,exam grossly non-focal EXTREMITIES: normal ASSESSMENT/PLAN: 1) Health maintenance: Pap done with HPV. Mammogram starting age 40. Nutrition, exercise and routine health maintenance exams reviewed. Calcium/Vitamin D supplementation information provided. 2) Contraception: tubal sterilization. Contraceptive options reviewed and information provided. 3) STD screening: Declined STD check. 4) Follow up one year or sooner as needed 5) pelvic US order Pt to schedule with doctor to discuss hysterectomy due to severe anemia likely related to heavy menses. Will communicate with Dr. Ignacio regarding possible need for iron IV infusion versus oral iron Lalita Mccoy APRN.CNP documented in this encounterTr[facility] History of Present illness Narrative* Cristy Dunbar APRN.CNP - 11/21/2022 9:35 AM EDT 11/21/2022 Patient presents with: Establish Care SUBJECTIVE: This is a 37 year old that is here today for Above Complaints. [facility] Follows with neurology for hx of seizures. Last follow-up on 10/27/2022. No medication changes at this time. Patient reports hx of anemia due to heavy periods. She reports she has been on oral pills but it doesn't help. Denies hx of absorption issues Past medical, surgical, family, social hx, medications, allergies and health maintenance reviewed and updated PAST MEDICAL HISTORY Diagnosis Date Anemia Complication of anesthesia nausea and vomiting Episode of recurrent major depressive disorder (HCC) 08/28/2018 Family history of epilepsy aunt Hepatitis in viral diseases classified elsewhere(573.1) when she had mono PMH - PAST MEDICAL HISTORY OF Right Sciatica Seizure disorder (HCC) 02/04/2018 ALLERGIES Bleach (Sodium Hypochlorite), Lamictal [Lamotrigine], and [place] [Trees] MEDICATIONS Current Outpatient Medications Medication Sig levETIRAcetam (KEPPRA) 750 mg tablet Take 1 tablet by mouth twice daily. No current facility-administered medications for this visit. Medications and allergies reviewed by this provider. SOCIAL HISTORY Social History Tobacco Use Smoking status: Never Smokeless tobacco: Never Vaping Use Vaping Use: Never used Substance Use Topics Alcohol use: Yes Comment: occasional Drug use: No REVIEW OF SYSTEMS GENERAL: No weight loss, malaise or fevers HEENT: No changes in hearing or vision, no nose bleeds or other nasal problems NECK: Negative for lumps, goiter, pain and significant neck swelling RESPIRATORY: Negative for cough, hemoptysis, wheezing, COPD, dyspnea or shortness of breath CARDIOVASCULAR: Negative for chest pain, leg swelling, hypertension, CHF or palpitations GI: No nausea, vomiting, or diarrhea. + for heartburn daily : No history of dysuria, frequency or incontinence PIPE PRODUCTION WORKER: Negative for abnormal vaginal discharge. Reports heavy periods MUSCULOSKELETAL: Negative for joint or swelling, back pain or muscle pain. Has right knee pain at times SKIN: Negative for lesions, rash, and itching PSYCH: Negative for sleep disturbance, mood disorder and recent psychosocial stressors HEMATOLOGY/LYMPHOLOGY: Negative for prolonged bleeding, bruising easily or swollen nodes ENDOCRINE: Negative for cold or heat intolerance, polyuria, polydipsia and goiter NEURO: No history of paralysis, seizures or tremors All other reviewed and negative other than HPI. OBJECTIVE: BP 104/72 Pulse 68 Resp 18 Ht 160.4 cm (5' 3.15) Wt 65.5 kg (144 lb 6.4 oz) LMP 10/05/2022 SpO2 96% BMI 25.46 kg/m . Vital signs reviewed by this provider. APPEARANCE Well appearing, alert, in no acute distress, well-hydrated, well nourished. EYES PERRLA, conjunctiva and sclera normal. EARS External ears normal, canals clear HEART RRR with normal S1 and S2, no murmurs, no gallops, no JVD appreciated LUNG clear to auscultation. No wheezes, rhonchi or rales ABDOMEN bowel sounds normoactive, no bruits, soft, non-tender, non-distended EXTREMITIES Extremities normal, No deformities, No skin discoloration, and No edema SKIN Skin color, texture, turgor normal, no suspicious rashes or lesions to exposed skin Component Latest Ref Rng & Units 07/31/2022 Protein, Total 6.3 - 8.0 g/dL 7.5 Albumin 3.9 - 4.9 g/dL 4.5 Calcium 8.5 - 10.2 mg/dL 9.2 Bilirubin, Total 0.2 - 1.3 mg/dL 0.4 Alkaline Phosphatase 34 - 123 U/L 51 AST 13 - 35 U/L 21 ALT 7 - 38 U/L 10 Glucose 74 - 99 mg/dL 113 (H) BUN 7 - 21 mg/dL 17 Creatinine 0.58 - 0.96 mg/dL 0.84 Sodium 136 - 144 mmol/L 137 Potassium 3.7 - 5.1 mmol/L 3.6 (L) Chloride 97 - 105 mmol/L 103 CO2 22 - 30 mmol/L 21 (L) Anion Gap 9 - 18 mmol/L 13 eGFR >=60 mL/min/1.73m 91 Component Latest Ref Rng & Units 07/31/2022 WBC 3.70 - 11.00 k/uL 8.10 RBC 3.90 - 5.20 m/uL 5.03 Hemoglobin 11.5 - 15.5 g/dL 8.4 (L) Hematocrit 36.0 - 46.0 % 30.7 (L) MCV 80.0 - 100.0 fL 61.0 (L) MCH 26.0 - 34.0 pg 16.7 (L) MCHC 30.5 - 36.0 g/dL 27.4 (L) RDW-CV 11.5 - 15.0 % 17.4 (H) Platelet Count 150 - 400 k/uL 292 MPV 9.0 - 12.7 fL 9.0 Neut% % 93.8 Abs Neut (ANC) 1.45 - 7.50 k/uL 7.59 (H) Lymph% % 3.2 Abs Lymph 1.00 - 4.00 k/uL 0.26 (L) [place]% % 2.7 Abs [place] <0.87 k/uL 0.22 Eosin% % 0.1 Abs Eosin <0.46 k/uL <0.03 Baso% % 0.1 Abs Baso <0.11 k/uL <0.03 Immature Gran % % 0.1 IMMATURE GRANS (ABS) <0.10 k/uL <0.03 DTYPE Auto Component Latest Ref Rng & Units 07/27/2019 Iron 35 - 150 ug/dL 23 (L) TIBC 250 - 450 ug/dL 382 Transferrin Saturation 20 - 55 % 6 (L) Ferritin 14.7 - 205.1 ng/mL 6.7 (L) Vitamin B12 232 - 1,245 pg/mL 784 HEPATITIS B(1 of 3 - 3-dose series) Never done COVID-19 VACCINE(1) Never done HEPATITIS C SCREENING Never done PAP TESTING due on 03/29/2021 HPV TESTING due on 03/29/2021 INFLUENZA(Season Ended) due on 02/22/2023 DTAP,TDAP,TD(3 - Td or Tdap) due on 07/30/2026 HIV SCREENING Completed ASSESSMENT/PLAN: 1. Encounter for medical examination to establish care - ICD9: V70.9, ICD10: Z00.00 (primary diagnosis) - Counseled on healthy diet and regular exercise - Calcium intake with supplements or by diet of 1000 mg/day for under 50, 1200- 1500 mg/day for 50+ - Depression screening tool completed and reviewed with patient. Based on score and interview, patient is not at risk for depression and recommended no further intervention at this time. - Follow up for annual exam in one year - COMP METABOLIC PANEL 2. Anemia, unspecified type - ICD9: 285.9, ICD10: D64.9 - CBC + DIFF - IRON + TIBC - FERRITIN BLD 3. Screening for hyperlipidemia - ICD9: V77.91, ICD10: Z13.220 - LIPID PANEL BASIC Cristy Dunbar APRN.CNP Prescription instructions reviewed with patient as applicable. Patient advised if symptoms do not improve or if symptoms worsen sooner, to contact their primary care physician. Potential red flag symptoms discussed with the patient. Reviewed appropriate action plan to take if red flag symptoms occur. Patient agreeable to treatment plan. I spent a total of 30 minutes on the date of the service which included preparing to see the patient, [id number] patient care, completing clinical documentation, obtaining and/or reviewing separately obtained history, performing a medically appropriate examination, counseling and educating the pat ient/family/caregiver, and ordering medications, tests, or procedures. documented in this encounterTr[facility]05-03-[facility] History of Present illness Narrative* Sophia Barrios APRN.CNP - 10/24/2022 1:53 PM EDT [facility] VIRTUAL VISIT I have communicated my name and active licensure. The patient's identity and physical location wereverified at the time of this visit. Either the patient or their legal reimbursement representative has been informed of the risks and benefits of -- and alternatives to -- treatment through a remote evaluation andconsents to proceed with the evaluation remotely. Patient on video by herself. Lives in [place], [place]. HISTORY OF PRESENT ILLNESS: Yamil Ng is a 37 year old RH female who is diagnosed with seizures, and presents today for six month checkup for seizures/health update. They are an established patient of Dr. Marinelli'kun and was last seen on 07/14/2021. Seizures: None in last 5-6 months.Aware she had one during sleep if she feels off, disconnected, sore all over. AED's: Keppra 750mg BID No report of side effects. In other health, spurs behind her knee. 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 Has 4 kids( [id number]) Driving: yes Mood: good Memory: good CURRENT OUTPATIENT MEDICATIONS: Current Outpatient Medications Medication Sig levETIRAcetam (KEPPRA) 750 mg tablet Take 1 tablet by mouth twice daily. No current facility-administered medications for this visit. PAST MEDICAL HISTORY Diagnosis Date Anemia Complication of anesthesia nausea and vomiting Episode of recurrent major depressive disorder (HCC) 08/28/2018 Family history of epilepsy aunt Hepatitis in viral diseases classified elsewhere(573.1) when she had mono PMH - PAST MEDICAL HISTORY OF Right Sciatica Seizure disorder (HCC) 02/04/2018 PAST SURGICAL HISTORY Procedure Laterality Date DELIVERY ONLY , low cervical x4 DELIVERY ONLY 10/14/2016 EXCISION GANGLION WRIST DORSAL/VOLAR PRIMARY Right LIG/TRNSXJ FLP TUBE ABDL/VAG APPR UNI/BI Bilateral 10/14/2016 FAMILY HISTORY Problem Relation Age of Onset Hypertension Father Diabetes Father Hyperlipidemia Father other (FIBROMYALGIA) Sister Diabetes Maternal Aunt Breast Cancer Paternal Grandmother Heart Paternal Grandmother Stroke Paternal Grandfather Anesthesia Problems No Family History ASSESSMENT: Yamil Ng is a 37 year old female with history of focal seizures. None in past 5-6 months. Taking Keppra 1500mg a day. No other ED visits, or new diagnosis. 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 Will issue refills and continue with medical plan.. PLAN: - LABS: none - Medications: -continue with Keppra 750mg BID, rfs. -continue with all other daily medications -Follow all seizure precautions/restrictions - Consults: none - Follow up: six months with [facility] or Dr. Marinelli I spent 15 minutes during this encounter.counseling on seizures, medications, lifestyle, documentation. Sophia Barrios APRN.CNP October 24, 2022 documented in this encounterTr[facility]04-20-2023 Instructions* Patient Instructions* Tabatha Almazan APRN.CNP - 10/11/2022 2:28 PM EDT Follow-up with your primary care provider or orthopedics in two weeks if no improvement in symptoms, sooner if worsening documented in this encounterTr[facility]04-20-2023 History of Present illness Narrative* Eliel Medina RT(R) - 10/11/2022 2:00 PM EDT Radiology Service Progress Note PATIENT NAME: Yamil Ng DATE OF SERVICE: October 11, 2022 TIME: 2:01 PM PATIENT IDENTITY VERIFICATION COMPLETED USING TWO (2) IDENTIFIERS: Name and Date of confirmedby patient verbally. FALL SCREENING: Has the patient had 2 falls in the last year or 1 fall with injury or currently using an Ambulatory Assistive Device (Walker, Cane, Wheelchair, Crutches, etc.)? No PATIENT GENDER DATA: Female. status: : No status: NO. PATIENT RELEVANT IMPLANT DATA REVIEWED: Not Applicable RADIOLOGY DEPARTMENT: General X-ray: Exam(s) Completed: Lower Extremity X- Ray(s): Knee, AP / Lat / Tunne / Merchant Right and Wt. Bearing PERIPHERAL IV DATA: Not applicable SIGNED BY: RT Hussein(R) October 11, 2022 2:01 PM documented in this encounterTr[facility]04-20-[facility]23 History of Present illness Narrative* Tabatha Older, BLOCKLAYER.TRACK WATCHMAN - 10/11/2022 1:49 PM EDT CC: Patient presents with: Pain: Pt reported Hx (RT) knee surgery 2020, c/o shooting pain rated 4. HPI Yamil Ng is a 37 year old female who presents today for right knee pain starting 1-2 months ago, became significantly worse last night. Located: knee cap and medical knee. Described as sharp and shooting Injury: no acute injury Aggravated by: any type of weight bearing Knee popping or clicking with movement? No Knee locking or feel like is giving-out? Yes, feels like it may give out Does the knee pain wake you up at night:No Previous injury: Yes, torn meniscus requiring surgical repair Treatment: Ice, heat, OTC analgesics, knee sleeve. 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 REVIEW OF SYSTEMS See HPI PAST MEDICAL HISTORY Diagnosis Date Anemia Complication of anesthesia nausea and vomiting Episode of recurrent major depressive disorder (HCC) 08/28/2018 Family history of epilepsy aunt Hepatitis in viral diseases classified elsewhere(573.1) when she had mono PMH - PAST MEDICAL HISTORY OF Right Sciatica Seizure disorder (HCC) 02/04/2018 PAST SURGICAL HISTORY Procedure Laterality Date DELIVERY ONLY , low cervical x4 DELIVERY ONLY 10/14/2016 EXCISION GANGLION WRIST DORSAL/VOLAR PRIMARY Right LIG/TRNSXJ FLP TUBE ABDL/VAG APPR UNI/BI Bilateral 10/14/2016 ALLERGIES Bleach (Sodium Hypochlorite), Lamictal [Lamotrigine], and [place] [Trees] MEDICATIONS levETIRAcetam (KEPPRA) 750 mg tablet Take 1 tablet by mouth twice daily. potassium chloride ER (K-DUR, KLOR-CON) 20 mEq tablet Take 1 tablet by mouth once daily. (Patient not taking: Reported on 08/15/2022) ondansetron orally disintegrating (ZOFRAN ODT) 4 mg disintegrating tablet Take 1 tablet by mouth every 6 hours as needed. (Patient not taking: Reported on 08/15/2022) sulfamethoxazole-trimethoprim (BACTRIM DS,SEPTRA DS) 800-160 mg per tablet Take 1 tablet by mouth twice daily. (Patient not taking: Reported on 08/15/2022) oxyCODONE-acetaminophen (PERCOCET) 5-325 mg tablet Take 1 tablet by mouth every 6 hours as needed. oxyCODONE-acetaminophen (PERCOCET) 5-325 mg tablet Take 1 tablet by mouth every 6 hours as needed. ferrous sulfate 325 mg (65 mg iron) tablet Take 1 tablet by mouth twice daily with meals. FAMILY HISTORY Problem Relation Age of Onset Hypertension Father Diabetes Father Hyperlipidemia Father other (FIBROMYALGIA) Sister Diabetes Maternal Aunt Breast Cancer Paternal Grandmother Heart Paternal Grandmother Stroke Paternal Grandfather Anesthesia Problems No Family History Social History Tobacco Use Smoking status: Never Smokeless tobacco: Never Vaping Use Vaping Use: Never used Substance Use Topics Alcohol use: Yes Comment: occasional Drug use: No PHYSICAL EXAM BP 128/76 Pulse 85 Temp 36.6 C (97.9 F) (Tympanic) Resp 16 Wt 63.9 kg (140 lb 12.8 oz) LMP 10/05/2022 SpO2 99% BMI 24.94 kg/m General Appearance: well appearing, in no acute distress, alert Musculoskeletal: Right knee- no defomrities. Tenderness:patellar tendon condyle and medial joint line. Flexion:Limitation: Yes, Pain:Yes; Extension:Limitation:Yes (chronic), Pain:No. Laxity: No Lower extremities: no edema in LE bilaterally, good distal pulses. Muscle strength- 4/5 right lowerextremity and 5/5 left lower extremity ASSESSMENT/PLAN: 1. Acute pain of right knee - ICD9: 719.46, ICD10: M25.561 XR KNEE GENERAL 4V AP BOTH/PA BOTH/LAT/MERC RIGHT FINDINGS: No fractures or subluxations are noted. Tiny marginal bony spurs seen along the posterior aspect of the patella. The joint spaces are well preserved. There is no evidence of joint effusion. The mineralization of the bones is normal. There is no significant soft tissue swelling. - start prednisone burst with taper - continue with non-medication measures - follow-up with PCP or orthopedics in two weeks if no improvement or sooner if worsening Prescription instructions reviewed with patient as applicable. Potential red flag symptoms discussed with the patient. Reviewed appropriate action plan to take if red flag symptoms occur. Patient agreeable to treatment plan. Tabatha Almazan APRN.CNP documented in this encounterTr[facility]03-31-2023 Instructions* Patient Instructions* Lyric Nova APRN.CNP - 09/21/2022 5:44 PM EDT Make sure to finish all of the antibiotic as prescribed. Do not stop early even if you are feeling better as the infection may not fully resolve and bacteria may start to grow again. Rest as much as possible, eat nutritiously and drink plenty of non caffeinated fluids. Change your toothbrush in 3 days after beginning the antibiotic. Tylenol or Motrin as needed for pain. Salt water gargles, Cepacol lozenges or Chloraseptic spray may also be helpful for pain. * Seek medical care immediately, call 911, go to ER if you have chest pain, difficulty breathing, shortness of breath, inability to swallow. documented in this encounterTr[facility]03-31-2023 History of Present illness Narrative* Lyric Nova APRN.CNP - 09/21/2022 5:18 PM EDT Subjective The history is provided by the patient. No russian language instructor was used. HPI Yamil Ng is a 37 year old female who presents today for CC of congestion and sore throat for 4 days. Feels like something in back of throat. She has used no treatment or medication. 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 BP 112/60 Temp 36.4 C (97.5 F) Resp 18 Wt 65.8 kg (145 lb) LMP 07/22/2022 BMI 25.69 kg/m Social History Tobacco Use Smoking status: Never Smokeless tobacco: Never Vaping Use Vaping Use: Never used Substance Use Topics Alcohol use: Yes Comment: occasional Drug use: No PAST MEDICAL HISTORY Diagnosis Date Anemia Complication of anesthesia nausea and vomiting Episode of recurrent major depressive disorder (HCC) 08/28/2018 Family history of epilepsy aunt Hepatitis in viral diseases classified elsewhere(573.1) when she had mono PMH - PAST MEDICAL HISTORY OF Right Sciatica Seizure disorder (HCC) 02/04/2018 I have confirmed and edited as necessary, the [facility] Review of Systems Constitutional: Negative for chills, fever and malaise/fatigue. HENT: Positive for sore throat. Negative for congestion, ear pain and sinus pain. Respiratory: Positive for cough. Negative for sputum production, shortness of breath and wheezing. Cardiovascular: Negative for chest pain. Gastrointestinal: Negative for abdominal pain, diarrhea, nausea and vomiting. Musculoskeletal: Negative for myalgias. Neurological: Negative for headaches. Objective Physical Exam Vitals and nursing note reviewed. HENT: Head: Normocephalic and atraumatic. Right Ear: Tympanic membrane, ear canal and external ear normal. Left Ear: Tympanic membrane, ear canal and external ear normal. Nose: No mucosal edema, congestion or rhinorrhea. Right Sinus: No maxillary sinus tenderness or frontal sinus tenderness. Left Sinus: No maxillary sinus tenderness or frontal sinus tenderness. Mouth/Throat: Pharynx: Uvula midline. Pharyngeal swelling (mild) and posterior oropharyngeal erythema (mild) present. No oropharyngeal exudate. Tonsils: 2+ on the right. 2+ on the left. Cardiovascular: Rate and Rhythm: Normal rate and regular rhythm. Heart sounds: Normal heart sounds. Pulmonary: Effort: Pulmonary effort is normal. Breath sounds: Normal breath sounds. Lymphadenopathy: Head: Right side of head: No submental, submandibular or tonsillar adenopathy. Left side of head: No submental, submandibular or tonsillar adenopathy. Cervical: No cervical adenopathy. Skin: General: Skin is warm and dry. Neurological: Mental Status: She is alert. Psychiatric: Mood and Affect: Affect normal. ASSESSMENT/PLAN: 1. Sore throat - ICD9: 462, ICD10: J02.9 - suspect strep - Alere Strep Test positive, no culture pending - Discussed supportive care treatment with fluids, rest and analgesia. - The patient may also use warm salt water gargles, throat lozenges and/or OTC throat spray as needed. - STREP A MOLECULAR (POC) 2. Strep throat - ICD9: 034.0, ICD10: J02.0 - antibiotic as written and Amoxicillin for 10 days. - Contagious dz precautions discussed- including considered contagious until on antibiotics for 24 hours - The patient should follow up in one week if symptoms persist or worsen - Call back if drooling, increased temperature, symptoms of dehydration and/or still sick in one week Diagnosis and treatment plan were discussed and questions were answered to the patient's satisfaction. Pt acknowledged understanding of concepts and follow up plan. Specific signs and symptoms that would indicate the need for higher level of care were discussed indetail warranting prompt ER evaluation. Lyric Nova APRN.BHARAT documented in this encounterTrinity [facility]02-22-2023 Miscellaneous Notes* Addendum Note - Flaca Bentley PA-C - 08/15/2022 6:59 PM ESTAddended by: FLACA BENTLEY on: 08/15/2022 06:59 PM Modules accepted: Orders documented in this encounterTrinity [facility]02-22-2023 History of Present illness Narrative* Flaca Bentley PA-C - 08/15/2022 6:37 PM EST This note was created using [employer]. Subjective Yamil Ng is a 37 year old female. HPI Patient presents with a chief complaint of sore throat and cough x1 day. She states really the cough is minimal and she thinks it might just be because her throat hurts. Feels like it is burning backthere. She denies any fever. No runny nose or ear pain. No strep exposure. No home covid. Review of Systems Constitutional: Negative for chills, fatigue and fever. HENT: Positive for sore throat. Negative for congestion, ear pain, sinus pressure and sinus pain. Respiratory: Positive for cough. Cardiovascular: Negative. Gastrointestinal: Negative. Genitourinary: Negative. Musculoskeletal: Negative. All other systems reviewed and are negative. PAST MEDICAL HISTORY Diagnosis Date Anemia Complication of anesthesia nausea and vomiting Episode of recurrent major depressive disorder (HCC) 08/28/2018 Family history of epilepsy aunt Hepatitis in viral diseases classified elsewhere(573.1) when she had mono PMH - PAST MEDICAL HISTORY OF Right Sciatica Seizure disorder (HCC) 02/04/2018 Current Outpatient Medications Medication Sig Dispense Refill levETIRAcetam (KEPPRA) 750 mg tablet Take 1 tablet by mouth twice daily. 180 tablet 0 potassium chloride ER (K-DUR, KLOR-CON) 20 mEq tablet Take 1 tablet by mouth once daily. (Patient not taking: Reported on 08/15/2022) 4 tablet 0 ondansetron orally disintegrating (ZOFRAN ODT) 4 mg disintegrating tablet Take 1 tablet by mouth every 6 hours as needed. (Patient not taking: Reported on 08/15/2022) 10 tablet 0 sulfamethoxazole-trimethoprim (BACTRIM DS,SEPTRA DS) 800-160 mg per tablet Take 1 tablet by mouth twice daily. (Patient not taking: Reported on 08/15/2022) oxyCODONE-acetaminophen (PERCOCET) 5-325 mg tablet Take 1 tablet by mouth every 6 hours as needed. 15 tablet 0 oxyCODONE-acetaminophen (PERCOCET) 5-325 mg tablet Take 1 tablet by mouth every 6 hours as needed. 15 tablet 0 ferrous sulfate 325 mg (65 mg iron) tablet Take 1 tablet by mouth twice daily with meals. 60 tablet1 No current facility-administered medications for this visit. PAST SURGICAL HISTORY Procedure Laterality Date DELIVERY ONLY , low cervical x4 DELIVERY ONLY 10/14/2016 EXCISION GANGLION WRIST DORSAL/VOLAR PRIMARY Right LIG/TRNSXJ FLP TUBE ABDL/VAG APPR UNI/BI Bilateral 10/14/2016 FAMILY HISTORY Problem Relation Age of Onset Hypertension Father Diabetes Father Hyperlipidemia Father other (FIBROMYALGIA) Sister Diabetes Maternal Aunt Breast Cancer Paternal Grandmother Heart Paternal Grandmother Stroke Paternal Grandfather Anesthesia Problems No Family History Social History Tobacco Use Smoking status: Never Smokeless tobacco: Never Vaping Use Vaping Use: Never used Substance Use Topics Alcohol use: Yes Comment: occasional Drug use: No Objective BP 118/60 Pulse 80 Temp 36.7 C (98 F) Resp 18 Wt 64.4 kg (142 lb) LMP 07/22/2022 SpO2 97% BMI 25.15 kg/m Physical Exam Vitals reviewed. Constitutional: Appearance: Normal appearance. HENT: Head: Normocephalic and atraumatic. Right Ear: Tympanic membrane, ear canal and external ear normal. Left Ear: Tympanic membrane, ear canal and external ear normal. Mouth/Throat: Mouth: Mucous membranes are moist. Pharynx: Oropharynx is clear. Cardiovascular: Rate and Rhythm: Normal rate and regular rhythm. Heart sounds: Normal heart sounds. Pulmonary: Effort: Pulmonary effort is normal. Breath sounds: Normal breath sounds. Musculoskeletal: Cervical back: Neck supple. Lymphadenopathy: Cervical: No cervical adenopathy. Skin: General: Skin is warm and dry. Neurological: Mental Status: She is alert. Assessment and Plan ASSESSMENT/PLAN: 1. Sore throat - ICD9: 462, ICD10: J02.9 - suspect viral - Alere Strep Test neg, no culture pending - Discussed supportive care treatment with fluids, rest and analgesia. - The patient may also use warm salt water gargles, throat lozenges and/or OTC throat spray as needed. - The patient should follow up in 3-5 days if symptoms persist or worsen - STREP A MOLECULAR (POC) Flaca Bentley PA-C documented in this encounterTr[facility] Miscellaneous Notes* Telephone Encounter - Rachelle Beavers APRN.CNP - 07/24/2022 2:45 PM EST The following approved medication requests have been transmitted electronically. Requested Prescriptions Signed Prescriptions Disp Refills levETIRAcetam (KEPPRA) 750 mg tablet 180 tablet 0 Sig: Take 1 tablet by mouth twice daily. Authorizing Provider: RACHELLE BEAVERS APRN.CNP * Telephone Encounter - Marine Camara - 07/24/2022 1:19 PM EST Prescription Refill: Requested by: patient Please E-Scribe Caller Contact Number: [phone] (home) Pharmacy Name: [facility]acy Number: [id number] Generic/ brand: generic 30 or 90 day supply requested: 90 Last appointment: 07/14/21 Next Appointment: Patient was transferred to schedulers Patient of Dr. Marinelli documented in this encounterTr[facility]08-10-2022 Miscellaneous Notes* Telephone Encounter - Dylan Geiger PA-C - 01/31/2022 12:02 PM EDT The following approved medication requests have been transmitted electronically. Requested Prescriptions Signed Prescriptions Disp Refills levETIRAcetam (KEPPRA) 750 mg tablet 180 tablet 1 Sig: Take 1 tablet by mouth twice daily. Authorizing Provider: DYLAN GEIGER PA-C * Telephone Encounter - Anu Barrios - 01/31/2022 11:56 AM EDT Spoke with Yamil, We reviewed the recommendations to increase the LEV to 750 mg BID and will start in the am. routed to [place], will need a new RX sent in. Anu Barrios * Telephone Encounter - Dylan Geiger PA-C - 01/31/2022 11:10 AM EDT Recommend starting the LEV 750 BID and contacting the office with any additional seizures. Dylan Geiger PA-C * Telephone Encounter - Anu Barrios - 01/31/2022 10:22 AM EDT Spoke with Yamil She is has been taking the LEV 500 mg in the am and 750 mg in the pm, not the 750 mg BID. Was confused because os the switching back and forth with the IR and ER formulations. Woke up on 01/27/22 feeling like she does when she's had a seizure in her sleep. Woke up sore, tired,and hard to focus. -TB and - UI, she has never bitten her tongue. No missed doses, no triggers she can think of at this time. But she had not been taking the LEV 750 mg BID. She is aware a RX for [id number] mg should be at her pharmacy. routed for review/recommendations Anu Barrios * Telephone Encounter - Anu Barrios - 01/31/2022 10:14 AM EDT Left message to call Dr. Marinelli's office Anu Barrios * Telephone Encounter - Ngareta Aden Asst - 01/31/2022 9:40 AM EDT Patient returned call, please call back [phone]. * Telephone Encounter - Anu Barrios - 01/30/2022 12:38 PM EDT 07/14/[address] Marinelli IMPRESSION: The patient's history is suggestive of epilepsy, possibly focal, started in 2016. She remains on LEV IR 500/750 mg daily, no seizures since , last reported seizure in February 2018. Epilepsy Classification: focal epilepsy Seizure Classification: Generalized Motor Seizure Etiology: Other unkown Related Condition(s): medication side effect Interval Impression: Patient with two possible seizures in sleep, some daytime nausea with medicine. The patient's compliance with therapy has been: Excellent Medical Management Medication changes were discussed. increase keppra 750 mg 2 pill at night extended release FOLLOW-UP: Return in about 6 months (around 01/11/2022). LEV: 750 m/750 no recent levels since 2019 Left message to call Dr. Marinelli's office Anu Barrios * Telephone Encounter - Dinora Pernell - 01/29/2022 4:54 PM EDT Seizure activity: Name of Caller : Yamil Ng Relationship to patient: Self If not self will need patient permission to release results or disclose health information with caller documented in FYI. Was permission obtained from patient? Yes Patient identified by Name and Date of . [email or web address], Yes Contact phone number: [phone] Date of seizure: 01/27/2022 Duration: unsure; while sleeping Back to Baseline (Yes/No): yes Emergency treatment needed (Yes/No): no Patient of Dr. Marinelli Thank you for calling the [facility]. You will receive a return call within 24 hours. documented in this encounterTr[facility]05-31-2022 History of Present illness Narrative* Yanet Bacon APRN.TRACK WATCHMAN - 11/21/2021 3:54 PM EDT Images from the original note were not included. Subjective Patient came in with complaints of right foot/toe pain. Patient said its been going on about 2 weeks. She does not remember injuring it in any way. Said it tends to swell when she is on it all day. Denies any loss of feeling, numbness, or tingling. The history is provided by the patient. No russian language instructor was used. Review of Systems Constitutional: Negative. Skin: Negative. Objective Physical Exam Constitutional: Appearance: Normal appearance. Pulmonary: Effort: Pulmonary effort is normal. Musculoskeletal: Feet: Feet: Comments: Patient said the pain is in the area marked above. Also the swelling shows up in this area at the end of a shift and she does have pain when area is palpated or ROM performed with great toe. No pain when ROM in ankle is performed. Neurological: Mental Status: She is alert. PAST MEDICAL HISTORY Diagnosis Date Anemia Complication of anesthesia nausea and vomiting Episode of recurrent major depressive disorder (HCC) 08/28/2018 Family history of epilepsy aunt Hepatitis in viral diseases classified elsewhere(573.1) when she had mono PMH - PAST MEDICAL HISTORY OF Right Sciatica Seizure disorder (HCC) 02/04/2018 PAST SURGICAL HISTORY Procedure Laterality Date DELIVERY ONLY , low cervical x4 DELIVERY ONLY 10/14/2016 EXCISION GANGLION WRIST DORSAL/VOLAR PRIMARY Right LIG/TRNSXJ FLP TUBE ABDL/VAG APPR UNI/BI Bilateral 10/14/2016 ALLERGIES Bleach (Sodium Hypochlorite), Lamictal [Lamotrigine], and [place] [Trees] MEDICATIONS levETIRAcetam (KEPPRA) 750 mg tablet Take 1 tablet by mouth twice daily. predniSONE (DELTASONE) 20 mg tablet TAKE BY MOUTH FIRST AND SECOND DAY=4 TABLETS IN THE MORNING WITH FOOD; THIRD AND FOURTH DAY=3 TABLETS IN THE MORNING WITH FOOD; FIFTH AND SIXTH DAY=2 TABLETES WITHFOOD; SEVEN THROUGH 12 DAYS=1 TABLET IN THE MORNING WITH FOOD. oxyCODONE-acetaminophen (PERCOCET) 5-325 mg tablet Take 1 tablet by mouth every 6 hours as needed. oxyCODONE-acetaminophen (PERCOCET) 5-325 mg tablet Take 1 tablet by mouth every 6 hours as needed. oxyCODONE-acetaminophen (PERCOCET) 5-325 mg tablet Take 1 tablet by mouth every 6 hours as needed. oxyCODONE-acetaminophen (PERCOCET) 5-325 mg tablet Take 1 tablet by mouth every 6 hours as needed. ferrous sulfate 325 mg (65 mg iron) tablet Take 1 tablet by mouth twice daily with meals. FAMILY HISTORY Problem Relation Age of Onset Hypertension Father Diabetes Father Hyperlipidemia Father other (FIBROMYALGIA) Sister Diabetes Maternal Aunt Breast Cancer Paternal Grandmother Heart Paternal Grandmother Stroke Paternal Grandfather Anesthesia Problems No Family History Social History Tobacco Use Smoking status: Never Smoker Smokeless tobacco: Never Used Substance Use Topics Alcohol use: Yes Comment: Rarely Drug use: No ASSESSMENT/PLAN: 1. Foot pain, right - ICD9: 729.5, ICD10: M79.671 - XR FOOT GENERAL 3V AP/LAT/OBL RIGHT HISTORY: Foot pain, right . TECHNIQUE: XR FOOT 3V AP/LAT/OBL RT Laterality: RIGHT Number of different views (projections): 3 M: XB_1 COMPARISON: There are no prior relevant studies for comparison. RESULT: Standing frontal radiographs of the bilateral feet with oblique and lateral weightbearing views of the right foot show no acute osseous, articular or soft tissue process. Joint spaces are preserved. Lateral view demonstrates a small calcaneal spur at the Achilles tendon insertion. IMPRESSION IMPRESSION: No acute process. Tiny Achilles tendon enthesophyte Binitrotoluene Operator: GILDARDO Transcribe Date/Time: Nov 21 2021 4:30P Dictated by : YOAN ELI MD At this time prednisone taper is prescribed and a consult placed for podiatry. Patient will follow up with podiatry. Patient was okay with this care plan. Patient will follow up if signs or symptoms seem to be getting worse. Yanet Bacon APRN.TRACK WATCHMAN documented in this encounterTr[facility]08-30-2021 History of Past illness Narrative* Problem Noted Date Resolved Date Plica of knee, right 02/20/2021 02/20/2021 Medication side effect 03/12/2018 9 Abnormal finding on screening of mery montalvo 05/15/2016 11/23/2016 Overview: May 15, 2016 On sequential screen risk of Trisomy 21 is 1:190. I d/w her on phone options, will let us know how she would like to proceed. Temitope Acuna MD Rubella non-immune status, antepartum 04/17/2016 11/23/2016 UTI (urinary tract infection) in , ante 04/02/2016 11/23/2016 Overview: April 02, 2016 ordered natasha Aviles MD Normal repeat , antepartum 03/29/2016 11/23/2016 Spotting in first trimester 03/22/201607/2016 Overview: 03/22/2016Pt was seen at [facility] 03/16/2016 for brown spotting and pelvic pain. SHe denies any bleeding or pain since 03/18/2016. An ultrasound was done at [facility] and revealed an IUP @ 8w5d. [facility] E.R. report in [address] Aviles's review. TKRN History of 3 sections 03/22/2016 0 11/23/2016 Overview: 03/22/2016Pt had 3 previous C sections. She desires a repeat C section by Dr Cuevas. Patient desires PPTL.TKRN Nausea/vomiting in 03/22/201607/2016 Overview: 03/22/2016 Patient is complaining of nausea in . She denies any vomiting.Recommended Vitamin B6. Advised patient to call/come in if she is unable to keep any food or fluids down in a 24-hour period. TKRN Family history of cleft lip and palate 6 11/23/2016 Overview: 03/22/2016The FOB has a son that was born with cleft lip and palate. Patient declines nuchal ultrasound. TKRN documented as of this encounter (statuses as of 11/21/2021) [facility]08[facility] History of Past illness Narrative* Problem Noted Date Resolved Date Plica of knee, right 02/20/2021 02/20/2021 Medication side effect 03/12/2018 9 Abnormal finding on screening of mery r 05/15/2016 11/23/2016 Overview: May 15, 2016 On sequential screen risk of Trisomy 21 is 1:190. I d/w her on phone options, will let us know how she would like to proceed. Temitope Acuna MD Rubella non-immune status, antepartum 04/17/2016 11/23/2016 UTI (urinary tract infection) in , ante 04/02/2016 11/23/2016 Overview: April 02, 2016 ordered natasha Aviles MD Normal repeat , antepartum 03/29/2016 11/23/2016 Spotting in first trimester 03/22/201607/2016 Overview: 03/22/2016Pt was seen at [facility] 03/16/2016 for brown spotting and pelvic pain. SHe denies any bleeding or pain since 03/18/2016. An ultrasound was done at [facility] and revealed an IUP @ 8w5d. [facility] E.R. report in [address] Aviles's review. TKRN History of 3 sections 03/22/2016 0 11/23/2016 Overview: 03/22/2016Pt had 3 previous C sections. She desires a repeat C section by Dr Cuevas. Patient desires PPTL.TKRN Nausea/vomiting in 03/22/201607/2016 Overview: 03/22/2016 Patient is complaining of nausea in . She denies any vomiting.Recommended Vitamin B6. Advised patient to call/come in if she is unable to keep any food or fluids down in a 24-hour period. TKRN Family history of cleft lip and palate 6 11/23/2016 Overview: 03/22/2016The FOB has a son that was born with cleft lip and palate. Patient declines nuchal ultrasound. TKRN documented as of this encounter (statuses as of 01/31/2022) [facility]08[facility] History of Past illness Narrative* Problem Noted Date Resolved Date Plica of knee, right 02/20/2021 02/20/2021 Medication side effect 03/12/2018 9 Abnormal finding on screening of mery r 05/15/2016 11/23/2016 Overview: May 15, 2016 On sequential screen risk of Trisomy 21 is 1:190. I d/w her on phone options, will let us know how she would like to proceed. Temitope Acuna MD Rubella non-immune status, antepartum 04/17/2016 11/23/2016 UTI (urinary tract infection) in , ante 04/02/2016 11/23/2016 Overview: April 02, 2016 ordered natasha Aviles MD Normal repeat , antepartum 03/29/2016 11/23/2016 Spotting in first trimester 03/22/201607/2016 Overview: 03/22/2016Pt was seen at [facility] 03/16/2016 for brown spotting and pelvic pain. SHe denies any bleeding or pain since 03/18/2016. An ultrasound was done at [facility] and revealed an IUP @ 8w5d. [facility] E.R. report in [address] Aviles's review. TKRN History of 3 sections 03/22/2016 0 11/23/2016 Overview: 03/22/2016Pt had 3 previous C sections. She desires a repeat C section by Dr Cuevas. Patient desires PPTL.TKRN Nausea/vomiting in 03/22/201607/2016 Overview: 03/22/2016 Patient is complaining of nausea in . She denies any vomiting.Recommended Vitamin B6. Advised patient to call/come in if she is unable to keep any food or fluids down in a 24-hour period. TKRN Family history of cleft lip and palate 6 11/23/2016 Overview: 03/22/2016The FOB has a son that was born with cleft lip and palate. Patient declines nuchal ultrasound. TKRN documented as of this encounter (statuses as of 08/16/2022) [facility] History of Past illness Narrative* Problem Noted Date Resolved Date Plica of knee, right 02/20/2021 02/20/2021 Medication side effect 03/12/2018 9 Abnormal finding on screening of mery r 05/15/2016 11/23/2016 Overview: May 15, 2016 On sequential screen risk of Trisomy 21 is 1:190. I d/w her on phone options, will let us know how she would like to proceed. Temitope Acuna MD Rubella non-immune status, antepartum 04/17/2016 11/23/2016 UTI (urinary tract infection) in , ante 04/02/2016 11/23/2016 Overview: April 02, 2016 ordered natasha Aviles MD Normal repeat , antepartum 03/29/2016 11/23/2016 Spotting in first trimester 03/22/2016 06/07/2016 Overview: 03/22/2016Pt was seen at [facility] 03/16/2016 for brown spotting and pelvic pain. SHe denies any bleeding or pain since 03/18/2016. An ultrasound was done at [facility] and revealed an IUP @ 8w5d. [facility] E.R. report in [address] Aviles's review. TKRN History of 3 sections 03/22/2016 0 11/23/2016 Overview: 03/22/2016Pt had 3 previous C sections. She desires a repeat C section by Dr Cuevas. Patient desires PPTL.TKRN Nausea/vomiting in 03/22/201607/2016 Overview: 03/22/2016 Patient is complaining of nausea in . She denies any vomiting.Recommended Vitamin B6. Advised patient to call/come in if she is unable to keep any food or fluids down in a 24-hour period. TKRN Family history of cleft lip and palate 6 11/23/2016 Overview: 03/22/2016The FOB has a son that was born with cleft lip and palate. Patient declines nuchal ultrasound. TKRN documented as of this encounter (statuses as of 09/10/2022) [facility] History of Past illness Narrative* Problem Noted Date Resolved Date Plica of knee, right 02/20/2021 02/20/2021 Medication side effect 03/12/2018 9 Abnormal finding on screening of mery montalvo 05/15/2016 11/23/2016 Overview: May 15, 2016 On sequential screen risk of Trisomy 21 is 1:190. I d/w her on phone options, will let us know how she would like to proceed. Temitope Acuna MD Rubella non-immune status, antepartum 04/17/2016 11/23/2016 UTI (urinary tract infection) in , ante 04/02/2016 11/23/2016 Overview: April 02, 2016 ordered natasha Aviles MD Normal repeat , antepartum 03/29/2016 11/23/2016 Spotting in first trimester 03/22/2016 06/0 07/2016 Overview: 03/22/2016Pt was seen at [facility] 03/16/2016 for brown spotting and pelvic pain. SHe denies any bleeding or pain since 03/18/2016. An ultrasound was done at [facility] and revealed an IUP @ 8w5d. [facility] E.R. report in [address] Aviles's review. TKRN History of 3 sections 03/22/2016 0 11/23/2016 Overview: 03/22/2016Pt had 3 previous C sections. She desires a repeat C section by Dr Cuevas. Patient desires PPTL.TKRN Nausea/vomiting in 03/22/201607/2016 Overview: 03/22/2016 Patient is complaining of nausea in . She denies any vomiting.Recommended Vitamin B6. Advised patient to call/come in if she is unable to keep any food or fluids down in a 24-hour period. TKRN Family history of cleft lip and palate 6 11/23/2016 Overview: 03/22/2016The FOB has a son that was born with cleft lip and palate. Patient declines nuchal ultrasound. TKRN documented as of this encounter (statuses as of 09/22/2022) [facility] History of Past illness Narrative* Problem Noted Date Resolved Date Plica of knee, right 02/20/2021 02/20/2021 Medication side effect 03/12/2018 9 Abnormal finding on screening of mery montalvo 05/15/2016 11/23/2016 Overview: May 15, 2016 On sequential screen risk of Trisomy 21 is 1:190. I d/w her on phone options, will let us know how she would like to proceed. Temitope Acuna MD Rubella non-immune status, antepartum 04/17/2016 11/23/2016 UTI (urinary tract infection) in , ante 04/02/2016 11/23/2016 Overview: April 02, 2016 ordered natasha Aviles MD Normal repeat , antepartum 03/29/2016 11/23/2016 Spotting in first trimester 03/22/201607/2016 Overview: 03/22/2016Pt was seen at [facility] 03/16/2016 for brown spotting and pelvic pain. SHe denies any bleeding or pain since 03/18/2016. An ultrasound was done at [facility] and revealed an IUP @ 8w5d. [facility] E.R. report in [address] Aviles's review. TKRN History of 3 sections 03/22/2016 0 11/23/2016 Overview: 03/22/2016Pt had 3 previous C sections. She desires a repeat C section by Dr Cuevas. Patient desires PPTL.TKRN Nausea/vomiting in 03/22/201607/2016 Overview: 03/22/2016 Patient is complaining of nausea in . She denies any vomiting.Recommended Vitamin B6. Advised patient to call/come in if she is unable to keep any food or fluids down in a 24-hour period. TKRN Family history of cleft lip and palate 6 11/23/2016 Overview: 03/22/2016The FOB has a son that was born with cleft lip and palate. Patient declines nuchal ultrasound. TKRN documented as of this encounter (statuses as of 10/12/2022) [facility] History of Past illness Narrative* Problem Noted Date Resolved Date Plica of knee, right 02/20/2021 02/20/2021 Medication side effect 03/12/2018 9 Abnormal finding on screening of mery montalvo 05/15/2016 11/23/2016 Overview: May 15, 2016 On sequential screen risk of Trisomy 21 is 1:190. I d/w her on phone options, will let us know how she would like to proceed. Temitope Acuna MD Rubella non-immune status, antepartum 04/17/2016 11/23/2016 UTI (urinary tract infection) in , ante 04/02/2016 11/23/2016 Overview: April 02, 2016 ordered macrobiludy Aviles MD Normal repeat , antepartum 03/29/2016 11/23/2016 Spotting in first trimester 03/22/201607/2016 Overview: 03/22/2016Pt was seen at [facility] 03/16/2016 for brown spotting and pelvic pain. SHe denies any bleeding or pain since 03/18/2016. An ultrasound was done at [facility] and revealed an IUP @ 8w5d. [facility] E.R. report in [address] Aviles's review. TKRN History of 3 sections 03/22/2016 0 11/23/2016 Overview: 03/22/2016Pt had 3 previous C sections. She desires a repeat C section by Dr Cuevas. Patient desires PPTL.TKRN Nausea/vomiting in 03/22/201607/2016 Overview: 03/22/2016 Patient is complaining of nausea in . She denies any vomiting.Recommended Vitamin B6. Advised patient to call/come in if she is unable to keep any food or fluids down in a 24-hour period. TKRN Family history of cleft lip and palate 6 11/23/2016 Overview: 03/22/2016The FOB has a son that was born with cleft lip and palate. Patient declines nuchal ultrasound. TKRN documented as of this encounter (statuses as of 10/24/2022) [facility] History of Past illness Narrative* Problem Noted Date Resolved Date Plica of knee, right 02/20/2021 02/20/2021 Medication side effect 03/12/2018 9 Abnormal finding on screening of mery r 05/15/2016 11/23/2016 Overview: May 15, 2016 On sequential screen risk of Trisomy 21 is 1:190. I d/w her on phone options, will let us know how she would like to proceed. Temitope Acuna MD Rubella non-immune status, antepartum 04/17/2016 11/23/2016 UTI (urinary tract infection) in , ante 04/02/2016 11/23/2016 Overview: April 02, 2016 ordered natasha Aviles MD Normal repeat , antepartum 03/29/2016 11/23/2016 Spotting in first trimester 03/22/2016 06/0 07/2016 Overview: 03/22/2016Pt was seen at [facility] 03/16/2016 for brown spotting and pelvic pain. SHe denies any bleeding or pain since 03/18/2016. An ultrasound was done at [facility] and revealed an IUP @ 8w5d. [facility] E.R. report in [address] Aviles's review. TKRN History of 3 sections 03/22/2016 0 11/23/2016 Overview: 03/22/2016Pt had 3 previous C sections. She desires a repeat C section by Dr Cuevas. Patient desires PPTL.TKRN Nausea/vomiting in 03/22/201607/2016 Overview: 03/22/2016 Patient is complaining of nausea in . She denies any vomiting.Recommended Vitamin B6. Advised patient to call/come in if she is unable to keep any food or fluids down in a 24-hour period. TKRN Family history of cleft lip and palate 6 11/23/2016 Overview: 03/22/2016The FOB has a son that was born with cleft lip and palate. Patient declines nuchal ultrasound. TKRN documented as of this encounter (statuses as of 11/22/2022) [facility] History of Past illness Narrative* Problem Noted Date Resolved Date Plica of knee, right 02/20/2021 02/20/2021 Medication side effect 03/12/2018 9 Abnormal finding on screening of mery montalvo 05/15/2016 11/23/2016 Overview: May 15, 2016 On sequential screen risk of Trisomy 21 is 1:190. I d/w her on phone options, will let us know how she would like to proceed. Temitope Acuna MD Rubella non-immune status, antepartum 04/17/2016 11/23/2016 UTI (urinary tract infection) in , ante 04/02/2016 11/23/2016 Overview: April 02, 2016 ordered natasha Aviles MD Normal repeat , antepartum 03/29/2016 11/23/2016 Spotting in first trimester 03/22/201607/2016 Overview: 03/22/2016Pt was seen at [facility] 03/16/2016 for brown spotting and pelvic pain. SHe denies any bleeding or pain since 03/18/2016. An ultrasound was done at [facility] and revealed an IUP @ 8w5d. [facility] E.R. report in [address] Aviles's review. TKRN History of 3 sections 03/22/2016 0 11/23/2016 Overview: 03/22/2016Pt had 3 previous C sections. She desires a repeat C section by Dr Cuevas. Patient desires PPTL.TKRN Nausea/vomiting in 03/22/201607/2016 Overview: 03/22/2016 Patient is complaining of nausea in . She denies any vomiting.Recommended Vitamin B6. Advised patient to call/come in if she is unable to keep any food or fluids down in a 24-hour period. TKRN Family history of cleft lip and palate 6 11/23/2016 Overview: 03/22/2016The FOB has a son that was born with cleft lip and palate. Patient declines nuchal ultrasound. TKRN documented as of this encounter (statuses as of 12/01/2022) [facility]08-30-2021 History of Past illness Narrative* Problem Noted Date Resolved Date Plica of knee, right 02/20/2021 02/20/2021 Medication side effect 03/12/2018 9 Abnormal finding on screening of mery montalvo 05/15/2016 11/23/2016 Overview: May 15, 2016 On sequential screen risk of Trisomy 21 is 1:190. I d/w her on phone options, will let us know how she would like to proceed. Temitope Acuna MD Rubella non-immune status, antepartum 04/17/2016 11/23/2016 UTI (urinary tract infection) in , ante 04/02/2016 11/23/2016 Overview: April 02, 2016 ordered natasha Aviles MD Normal repeat , antepartum 03/29/2016 11/23/2016 Spotting in first trimester 03/22/201607/2016 Overview: 03/22/2016Pt was seen at [facility] 03/16/2016 for brown spotting and pelvic pain. SHe denies any bleeding or pain since 03/18/2016. An ultrasound was done at [facility] and revealed an IUP @ 8w5d. [facility] E.R. report in [address] Aviles's review. TKRN History of 3 sections 03/22/2016 0 11/23/2016 Overview: 03/22/2016Pt had 3 previous C sections. She desires a repeat C section by Dr Cuevas. Patient desires PPTL.TKRN Nausea/vomiting in 03/22/201607/2016 Overview: 03/22/2016 Patient is complaining of nausea in . She denies any vomiting.Recommended Vitamin B6. Advised patient to call/come in if she is unable to keep any food or fluids down in a 24-hour period. TKRN Family history of cleft lip and palate 6 11/23/2016 Overview: 03/22/2016The FOB has a son that was born with cleft lip and palate. Patient declines nuchal ultrasound. TKRN documented as of this encounter (statuses as of 11/23/2022) [facility]08-30-2021 History of Past illness Narrative* Problem Noted Date Resolved Date Plica of knee, right 02/20/2021 02/20/2021 Medication side effect 03/12/2018 9 Abnormal finding on screening of mery montalvo 05/15/2016 11/23/2016 Overview: May 15, 2016 On sequential screen risk of Trisomy 21 is 1:190. I d/w her on phone options, will let us know how she would like to proceed. Temitope Acuna MD Rubella non-immune status, antepartum 04/17/2016 11/23/2016 UTI (urinary tract infection) in , ante 04/02/2016 11/23/2016 Overview: April 02, 2016 ordered natasha Aviles MD Normal repeat , antepartum 03/29/2016 11/23/2016 Spotting in first trimester 03/22/201607/2016 Overview: 03/22/2016Pt was seen at [facility] 03/16/2016 for brown spotting and pelvic pain. SHe denies any bleeding or pain since 03/18/2016. An ultrasound was done at [facility] and revealed an IUP @ 8w5d. [facility] E.R. report in [address] Aviles's review. TKRN History of 3 sections 03/22/2016 0 11/23/2016 Overview: 03/22/2016Pt had 3 previous C sections. She desires a repeat C section by Dr Cuevas. Patient desires PPTL.TKRN Nausea/vomiting in 03/22/201607/2016 Overview: 03/22/2016 Patient is complaining of nausea in . She denies any vomiting.Recommended Vitamin B6. Advised patient to call/come in if she is unable to keep any food or fluids down in a 24-hour period. TKRN Family history of cleft lip and palate 6 11/23/2016 Overview: 03/22/2016The FOB has a son that was born with cleft lip and palate. Patient declines nuchal ultrasound. TKRN documented as of this encounter (statuses as of 11/23/2022) [facility]08-30-2021 History of Past illness Narrative* Problem Noted Date Resolved Date Plica of knee, right 02/20/2021 02/20/2021 Medication side effect 03/12/2018 9 Abnormal finding on screening of mery montalvo 05/15/2016 11/23/2016 Overview: May 15, 2016 On sequential screen risk of Trisomy 21 is 1:190. I d/w her on phone options, will let us know how she would like to proceed. Temitope Acuna MD Rubella non-immune status, antepartum 04/17/2016 11/23/2016 UTI (urinary tract infection) in , ante 04/02/2016 11/23/2016 Overview: April 02, 2016 ordered macrobid Debo Aviles MD Normal repeat , antepartum 03/29/2016 11/23/2016 Spotting in first trimester 03/22/201607/2016 Overview: 03/22/2016Pt was seen at [facility] 03/16/2016 for brown spotting and pelvic pain. SHe denies any bleeding or pain since 03/18/2016. An ultrasound was done at [facility] and revealed an IUP @ 8w5d. [facility] E.R. report in [address] Aviles's review. TKRN History of 3 sections 03/22/2016 0 11/23/2016 Overview: 03/22/2016Pt had 3 previous C sections. She desires a repeat C section by Dr Cuevas. Patient desires PPTL.TKRN Nausea/vomiting in 03/22/201607/2016 Overview: 03/22/2016 Patient is complaining of nausea in . She denies any vomiting.Recommended Vitamin B6. Advised patient to call/come in if she is unable to keep any food or fluids down in a 24-hour period. TKRN Family history of cleft lip and palate 6 11/23/2016 Overview: 03/22/2016The FOB has a son that was born with cleft lip and palate. Patient declines nuchal ultrasound. TKRN documented as of this encounter (statuses as of 11/28/2022) [facility]08-30-2021 History of Past illness Narrative* Problem Noted Date Resolved Date Plica of knee, right 02/20/2021 02/20/2021 Medication side effect 03/12/2018 9 Abnormal finding on screening of mery r 05/15/2016 11/23/2016 Overview: May 15, 2016 On sequential screen risk of Trisomy 21 is 1:190. I d/w her on phone options, will let us know how she would like to proceed. Temitope Acuna MD Rubella non-immune status, antepartum 04/17/2016 11/23/2016 UTI (urinary tract infection) in , ante 04/02/2016 11/23/2016 Overview: April 02, 2016 ordered erasmobiludy Aviles MD Normal repeat , antepartum 03/29/2016 11/23/2016 Spotting in first trimester 03/22/201607/2016 Overview: 03/22/2016Pt was seen at [facility] 03/16/2016 for brown spotting and pelvic pain. SHe denies any bleeding or pain since 03/18/2016. An ultrasound was done at [facility] and revealed an IUP @ 8w5d. [facility] E.R. report in [address] Aviles's review. TKRN History of 3 sections 03/22/2016 0 11/23/2016 Overview: 03/22/2016Pt had 3 previous C sections. She desires a repeat C section by Dr Cuevas. Patient desires PPTL.TKRN Nausea/vomiting in 03/22/201607/2016 Overview: 03/22/2016 Patient is complaining of nausea in . She denies any vomiting.Recommended Vitamin B6. Advised patient to call/come in if she is unable to keep any food or fluids down in a 24-hour period. TKRN Family history of cleft lip and palate 6 11/23/2016 Overview: 03/22/2016The FOB has a son that was born with cleft lip and palate. Patient declines nuchal ultrasound. TKRN documented as of this encounter (statuses as of 12/06/2022) [facility]08-30-2021 History of Past illness Narrative* Problem Noted Date Resolved Date Plica of knee, right 02/20/2021 02/20/2021 Medication side effect 03/12/2018 9 Abnormal finding on screening of mery r 05/15/2016 11/23/2016 Overview: May 15, 2016 On sequential screen risk of Trisomy 21 is 1:190. I d/w her on phone options, will let us know how she would like to proceed. Temitope Aucna MD Rubella non-immune status, antepartum 04/17/2016 11/23/2016 UTI (urinary tract infection) in , ante 04/02/2016 11/23/2016 Overview: April 02, 2016 ordered natasha Aviles MD Normal repeat , antepartum 03/29/2016 11/23/2016 Spotting in first trimester 03/22/201607/2016 Overview: 03/22/2016Pt was seen at [facility] 03/16/2016 for brown spotting and pelvic pain. SHe denies any bleeding or pain since 03/18/2016. An ultrasound was done at [facility] and revealed an IUP @ 8w5d. [facility] E.R. report in [address] Aviles's review. TKRN History of 3 sections 03/22/2016 0 11/23/2016 Overview: 03/22/2016Pt had 3 previous C sections. She desires a repeat C section by Dr Cuevas. Patient desires PPTL.TKRN Nausea/vomiting in 03/22/201607/2016 Overview: 03/22/2016 Patient is complaining of nausea in . She denies any vomiting.Recommended Vitamin B6. Advised patient to call/come in if she is unable to keep any food or fluids down in a 24-hour period. TKRN Family history of cleft lip and palate 6 11/23/2016 Overview: 03/22/2016The FOB has a son that was born with cleft lip and palate. Patient declines nuchal ultrasound. TKRN documented as of this encounter (statuses as of 12/07/2022) [facility]08-30-2021 History of Past illness Narrative* Problem Noted Date Resolved Date Plica of knee, right 02/20/2021 02/20/2021 Medication side effect 03/12/2018 9 Abnormal finding on screening of mery r 05/15/2016 11/23/2016 Overview: May 15, 2016 On sequential screen risk of Trisomy 21 is 1:190. I d/w her on phone options, will let us know how she would like to proceed. Temitope Acuna MD Rubella non-immune status, antepartum 04/17/2016 11/23/2016 UTI (urinary tract infection) in , ante 04/02/2016 11/23/2016 Overview: April 02, 2016 ordered natasha Aviles MD Normal repeat , antepartum 03/29/2016 11/23/2016 Spotting in first trimester 03/22/2016 06/0 07/2016 Overview: 03/22/2016Pt was seen at [facility] 03/16/2016 for brown spotting and pelvic pain. SHe denies any bleeding or pain since 03/18/2016. An ultrasound was done at [facility] and revealed an IUP @ 8w5d. [facility] E.R. report in [address] Aviles's review. TKRN History of 3 sections 03/22/2016 0 11/23/2016 Overview: 03/22/2016Pt had 3 previous C sections. She desires a repeat C section by Dr Cuevas. Patient desires PPTL.TKRN Nausea/vomiting in 03/22/201607/2016 Overview: 03/22/2016 Patient is complaining of nausea in . She denies any vomiting.Recommended Vitamin B6. Advised patient to call/come in if she is unable to keep any food or fluids down in a 24-hour period. TKRN Family history of cleft lip and palate 6 11/23/2016 Overview: 03/22/2016The FOB has a son that was born with cleft lip and palate. Patient declines nuchal ultrasound. TKRN documented as of this encounter (statuses as of 12/07/2022) [facility]08-30-2021 History of Past illness Narrative* Problem Noted Date Resolved Date Plica of knee, right 02/20/2021 02/20/2021 Medication side effect 03/12/2018 9 Abnormal finding on screening of mery montalvo 05/15/2016 11/23/2016 Overview: May 15, 2016 On sequential screen risk of Trisomy 21 is 1:190. I d/w her on phone options, will let us know how she would like to proceed. Temitope Acuna MD Rubella non-immune status, antepartum 04/17/2016 11/23/2016 UTI (urinary tract infection) in , ante 04/02/2016 11/23/2016 Overview: April 02, 2016 ordered natasha Aviles MD Normal repeat , antepartum 03/29/2016 11/23/2016 Spotting in first trimester 03/22/201607/2016 Overview: 03/22/2016Pt was seen at [facility] 03/16/2016 for brown spotting and pelvic pain. SHe denies any bleeding or pain since 03/18/2016. An ultrasound was done at [facility] and revealed an IUP @ 8w5d. [facility] E.R. report in [address] Aviles's review. TKRN History of 3 sections 03/22/2016 0 11/23/2016 Overview: 03/22/2016Pt had 3 previous C sections. She desires a repeat C section by Dr Cuevas. Patient desires PPTL.TKRN Nausea/vomiting in 03/22/201607/2016 Overview: 03/22/2016 Patient is complaining of nausea in . She denies any vomiting.Recommended Vitamin B6. Advised patient to call/come in if she is unable to keep any food or fluids down in a 24-hour period. TKRN Family history of cleft lip and palate 6 11/23/2016 Overview: 03/22/2016The FOB has a son that was born with cleft lip and palate. Patient declines nuchal ultrasound. TKRN documented as of this encounter (statuses as of 12/11/2022) [facility]08-30-2021 History of Past illness Narrative* Problem Noted Date Resolved Date Plica of knee, right 02/20/2021 02/20/2021 Medication side effect 03/12/2018 9 Abnormal finding on screening of mery montalvo 05/15/2016 11/23/2016 Overview: May 15, 2016 On sequential screen risk of Trisomy 21 is 1:190. I d/w her on phone options, will let us know how she would like to proceed. Temitope Acuna MD Rubella non-immune status, antepartum 04/17/2016 11/23/2016 UTI (urinary tract infection) in , ante 04/02/2016 11/23/2016 Overview: April 02, 2016 ordered natasha Aviles MD Normal repeat , antepartum 03/29/2016 11/23/2016 Spotting in first trimester 03/22/2016 06/0 07/2016 Overview: 03/22/2016Pt was seen at [facility] 03/16/2016 for brown spotting and pelvic pain. SHe denies any bleeding or pain since 03/18/2016. An ultrasound was done at [facility] and revealed an IUP @ 8w5d. [facility] E.R[facility] report in [address] Aviles's review. TKRN History of 3 sections 03/22/2016 0 11/23/2016 Overview: 03/22/2016Pt had 3 previous C sections. She desires a repeat C section by Dr Cuevas. Patient desires PPTL.TKRN Nausea/vomiting in 03/22/201607/2016 Overview: 03/22/2016 Patient is complaining of nausea in . She denies any vomiting.Recommended Vitamin B6. Advised patient to call/come in if she is unable to keep any food or fluids down in a 24-hour period. TKRN Family history of cleft lip and palate 6 11/23/2016 Overview: 03/22/2016The FOB has a son that was born with cleft lip and palate. Patient declines nuchal ultrasound. TKRN documented as of this encounter (statuses as of 12/11/2022) [facility]08-30-2021 History of Past illness Narrative* Problem Noted Date Resolved Date Plica of knee, right 02/20/2021 02/20/2021 Medication side effect 03/12/2018 9 Abnormal finding on screening of mery montalvo 05/15/2016 11/23/2016 Overview: May 15, 2016 On sequential screen risk of Trisomy 21 is 1:190. I d/w her on phone options, will let us know how she would like to proceed. eTmitope Acuna MD Rubella non-immune status, antepartum 04/17/2016 11/23/2016 UTI (urinary tract infection) in , ante 04/02/2016 11/23/2016 Overview: April 02, 2016 ordered natasha Aviles, MD Normal repeat , antepartum 03/29/2016 11/23/2016 Spotting in first trimester 03/22/2016/07/2016 Overview: 03/22/2016Pt was seen at [facility] 03/16/2016 for brown spotting and pelvic pain. SHe denies any bleeding or pain since 03/18/2016. An ultrasound was done at [facility] and revealed an IUP @ 8w5d. [facility] E.R[facility] report in [address] Aviles's review. TKRN History of 3 sections 03/22/2016 0 11/23/2016 Overview: 03/22/2016Pt had 3 previous C sections. She desires a repeat C section by Dr Cuevas. Patient desires PPTL.TKRN Nausea/vomiting in 03/22/201607/2016 Overview: 03/22/2016 Patient is complaining of nausea in . She denies any vomiting.Recommended Vitamin B6. Advised patient to call/come in if she is unable to keep any food or fluids down in a 24-hour period. TKRN Family history of cleft lip and palate 6 11/23/2016 Overview: 03/22/2016The FOB has a son that was born with cleft lip and palate. Patient declines nuchal ultrasound. TKRN documented as of this encounter (statuses as of 12/14/2022) [facility]08-30-2021 History of Past illness Narrative* Problem Noted Date Resolved Date Plica of knee, right 02/20/2021 02/20/2021 Medication side effect 03/12/2018 9 Abnormal finding on screening of mery montalvo 05/15/2016 11/23/2016 Overview: May 15, 2016 On sequential screen risk of Trisomy 21 is 1:190. I d/w her on phone options, will let us know how she would like to proceed. Temitope Acuna MD Rubella non-immune status, antepartum 04/17/2016 11/23/2016 UTI (urinary tract infection) in , ante 04/02/2016 11/23/2016 Overview: April 02, 2016 ordered natasha Aviles MD Normal repeat , antepartum 03/29/2016 11/23/2016 Spotting in first trimester 03/22/2016 06/0 07/2016 Overview: 03/22/2016Pt was seen at [facility] 03/16/2016 for brown spotting and pelvic pain. SHe denies any bleeding or pain since 03/18/2016. An ultrasound was done at [facility] and revealed an IUP @ 8w5d. [facility] E.[facility] report in [address] Aviles's review. TKRN History of 3 sections 03/22/2016 0 11/23/2016 Overview: 03/22/2016Pt had 3 previous C sections. She desires a repeat C section by Dr Cuevas. Patient desires PPTL.TKRN Nausea/vomiting in 03/22/201607/2016 Overview: 03/22/2016 Patient is complaining of nausea in . She denies any vomiting.Recommended Vitamin B6. Advised patient to call/come in if she is unable to keep any food or fluids down in a 24-hour period. TKRN Family history of cleft lip and palate 6 11/23/2016 Overview: 03/22/2016The FOB has a son that was born with cleft lip and palate. Patient declines nuchal ultrasound. TKRN documented as of this encounter (statuses as of 12/17/2022) [facility]08[facility]2021 History of Past illness Narrative* Problem Noted Date Resolved Date Plica of knee, right 02/20/2021 02/20/2021 Medication side effect 03/12/2018 9 Abnormal finding on screening of mery montalvo 05/15/2016 11/23/2016 Overview: May 15, 2016 On sequential screen risk of Trisomy 21 is 1:190. I d/w her on phone options, will let us know how she would like to proceed. Temitope Acuna MD Rubella non-immune status, antepartum 04/17/2016 11/23/2016 UTI (urinary tract infection) in , ante 04/02/2016 11/23/2016 Overview: April 02, 2016 ordered macrobid Debo Aviles MD Normal repeat , antepartum 03/29/2016 11/23/2016 Spotting in first trimester 03/22/201607/2016 Overview: 03/22/2016Pt was seen at [facility] 03/16/2016 for brown spotting and pelvic pain. SHe denies any bleeding or pain since 03/18/2016. An ultrasound was done at [facility] and revealed an IUP @ 8w5d. [facility] E.R[facility] report in [address] Aviles's review. TKRN History of 3 sections 03/22/2016 0 11/23/2016 Overview: 03/22/2016Pt had 3 previous C sections. She desires a repeat C section by Dr Cuevas. Patient desires PPTL.TKRN Nausea/vomiting in 03/22/201607/2016 Overview: 03/22/2016 Patient is complaining of nausea in . She denies any vomiting.Recommended Vitamin B6. Advised patient to call/come in if she is unable to keep any food or fluids down in a 24-hour period. TKRN Family history of cleft lip and palate 6 11/23/2016 Overview: 03/22/2016The FOB has a son that was born with cleft lip and palate. Patient declines nuchal ultrasound. TKRN documented as of this encounter (statuses as of 12/20/2022) [facility]08[facility]30-2021 History of Past illness Narrative* Problem Noted Date Resolved Date Plica of knee, right 02/20/2021 02/20/2021 Medication side effect 03/12/2018 9 Abnormal finding on screening of mery montalvo 05/15/2016 11/23/2016 Overview: May 15, 2016 On sequential screen risk of Trisomy 21 is 1:190. I d/w her on phone options, will let us know how she would like to proceed. Temitope Acuna MD Rubella non-immune status, antepartum 04/17/2016 11/23/2016 UTI (urinary tract infection) in , ante 04/02/2016 11/23/2016 Overview: April 02, 2016 ordered natasha Aviles MD Normal repeat , antepartum 03/29/2016 11/23/2016 Spotting in first trimester 03/22/201607/2016 Overview: 03/22/2016Pt was seen at [facility] 03/16/2016 for brown spotting and pelvic pain. SHe denies any bleeding or pain since 03/18/2016. An ultrasound was done at [facility] and revealed an IUP @ 8w5d. [facility] E.R[facility] report in [address] Aviles's review. TKRN History of 3 sections 03/22/2016 0 11/23/2016 Overview: 03/22/2016Pt had 3 previous C sections. She desires a repeat C section by Dr Cuevas. Patient desires PPTL.TKRN Nausea/vomiting in 03/22/201607/2016 Overview: 03/22/2016 Patient is complaining of nausea in . She denies any vomiting.Recommended Vitamin B6. Advised patient to call/come in if she is unable to keep any food or fluids down in a 24-hour period. TKRN Family history of cleft lip and palate 6 11/23/2016 Overview: 03/22/2016The FOB has a son that was born with cleft lip and palate. Patient declines nuchal ultrasound. TKRN documented as of this encounter (statuses as of 12/20/2022) [facility]08[facility]21 History of Past illness Narrative* Problem Noted Date Resolved Date Plica of knee, right 02/20/2021 02/20/2021 Medication side effect 03/12/2018 9 Abnormal finding on screening of mery montalvo 05/15/2016 11/23/2016 Overview: May 15, 2016 On sequential screen risk of Trisomy 21 is 1:190. I d/w her on phone options, will let us know how she would like to proceed. Temitope Acuna MD Rubella non-immune status, antepartum 04/17/2016 11/23/2016 UTI (urinary tract infection) in , ante 04/02/2016 11/23/2016 Overview: April 02, 2016 ordered natasha Aviles MD Normal repeat , antepartum 03/29/2016 11/23/2016 Spotting in first trimester 03/22/201607/2016 Overview: 03/22/2016Pt was seen at [facility] 03/16/2016 for brown spotting and pelvic pain. SHe denies any bleeding or pain since 03/18/2016. An ultrasound was done at [facility] and revealed an IUP @ 8w5d. [facility] E.R. report in [address] Aviles's review. TKRN History of 3 sections 03/22/2016 0 11/23/2016 Overview: 03/22/2016Pt had 3 previous C sections. She desires a repeat C section by Dr Cuevas. Patient desires PPTL.TKRN Nausea/vomiting in 03/22/201607/2016 Overview: 03/22/2016 Patient is complaining of nausea in . She denies any vomiting.Recommended Vitamin B6. Advised patient to call/come in if she is unable to keep any food or fluids down in a 24-hour period. TKRN Family history of cleft lip and palate 6 11/23/2016 Overview: 03/22/2016The FOB has a son that was born with cleft lip and palate. Patient declines nuchal ultrasound. TKRN documented as of this encounter (statuses as of 12/21/2022) [facility]08-30-2021 History of Past illness Narrative* Problem Noted Date Resolved Date Plica of knee, right 02/20/2021 02/20/2021 Medication side effect 03/12/2018 9 Abnormal finding on screening of mery montalvo 05/15/2016 11/23/2016 Overview: May 15, 2016 On sequential screen risk of Trisomy 21 is 1:190. I d/w her on phone options, will let us know how she would like to proceed. Temitope Acuna MD Rubella non-immune status, antepartum 04/17/2016 11/23/2016 UTI (urinary tract infection) in , ante 04/02/2016 11/23/2016 Overview: April 02, 2016 ordered erasmobiludy Aviles MD Normal repeat , antepartum 03/29/2016 11/23/2016 Spotting in first trimester 03/22/201607/2016 Overview: 03/22/2016Pt was seen at [facility] 03/16/2016 for brown spotting and pelvic pain. SHe denies any bleeding or pain since 03/18/2016. An ultrasound was done at [facility] and revealed an IUP @ 8w5d. [facility] E.R. report in [address] Aviles's review. TKRN History of 3 sections 03/22/2016 0 11/23/2016 Overview: 03/22/2016Pt had 3 previous C sections. She desires a repeat C section by Dr Cuevas. Patient desires PPTL.TKRN Nausea/vomiting in 03/22/201607/2016 Overview: 03/22/2016 Patient is complaining of nausea in . She denies any vomiting.Recommended Vitamin B6. Advised patient to call/come in if she is unable to keep any food or fluids down in a 24-hour period. TKRN Family history of cleft lip and palate 6 11/23/2016 Overview: 03/22/2016The FOB has a son that was born with cleft lip and palate. Patient declines nuchal ultrasound. TKRN documented as of this encounter (statuses as of 12/24/2022) [facility]08-30-2021 History of Past illness Narrative* Problem Noted Date Diagnosed Date Resolved Date Plica of knee, right 02/20/2021 021 Medication side effect 03/12/201804/24 Abnormal finding on antenata l screening of mother 05/15/2016 11/23/2016 Overview: May 15, 2016 On sequential screen risk of Trisomy 21 is 1:190. I d/w her on phone options, will let us know how she would like to proceed. Temitope Acuna MD Rubella non-immune status, antepartum 04/17/2016 11/23/2016 UTI (urinary tract infection ) in , antepartum 04/02/2016 11/23/2016 Overview: April 02, 2016 ordered natasha Aviles MD Normal repeat , antepartum 03/29/2016 11/23/2016 Spotting in first trimester 03/22/2016 11/23/2016 Overview: 03/22/2016Pt was seen at [facility] 03/16/2016 for brown spotting and pelvic pain. SHe denies any bleeding or pain since 03/18/2016. An ultrasound was done at [facility] and revealed an IUP @ 8w5d. [facility] E.R. report in [address] Aviles's review. TKRN History of 3 sections 03/22/2016 11/23/2016 Overview: 03/22/2016Pt had 3 previous C sections. She desires a repeat C section by Dr Cuevas. Patient desires PPTL.TKRN Nausea/vomiting in 03/22/2016 11/23/2016 Overview: 03/22/2016 Patient is complaining of nausea in . She denies any vomiting.Recommended Vitamin B6. Advised patient to call/come in if she is unable to keep any food or fluids down in a 24-hour period. TKRN Family history of cleft lip and palate 03/22/2016 11/23/2016 Overview: 03/22/2016The FOB has a son that was born with cleft lip and palate. Patient declines nuchal ultrasound. TKRN documented as of this encounter (statuses as of 12/31/2022) [facility]08-30-2021 History of Past illness Narrative* Problem Noted Date Diagnosed Date Resolved Date Plica of knee, right 02/20/2021 021 Medication side effect 03/12/201804/24 Abnormal finding on antenata l screening of mother 05/15/2016 11/23/2016 Overview: May 15, 2016 On sequential screen risk of Trisomy 21 is 1:190. I d/w her on phone options, will let us know how she would like to proceed. Temitope Acuna MD Rubella non-immune status, antepartum 04/17/2016 11/23/2016 UTI (urinary tract infection ) in , antepartum 04/02/2016 11/23/2016 Overview: April 02, 2016 ordered natasha Aviles MD Normal repeat , antepartum 03/29/2016 11/23/2016 Spotting in first trimester 03/22/2016 11/23/2016 Overview: 03/22/2016Pt was seen at [facility] 03/16/2016 for brown spotting and pelvic pain. SHe denies any bleeding or pain since 03/18/2016. An ultrasound was done at [facility] and revealed an IUP @ 8w5d. [facility] E.R[facility] report in [address] Aviles's review. TKRN History of 3 sections 03/22/2016 11/23/2016 Overview: 03/22/2016Pt had 3 previous C sections. She desires a repeat C section by Dr Cuevas. Patient desires PPTL.TKRN Nausea/vomiting in 03/22/2016 11/23/2016 Overview: 03/22/2016 Patient is complaining of nausea in . She denies any vomiting.Recommended Vitamin B6. Advised patient to call/come in if she is unable to keep any food or fluids down in a 24-hour period. TKRN Family history of cleft lip and palate 03/22/2016 11/23/2016 Overview: 03/22/2016The FOB has a son that was born with cleft lip and palate. Patient declines nuchal ultrasound. TKRN documented as of this encounter (statuses as of 01/04/2023) [facility]08-30-2021 History of Past illness Narrative* Problem Noted Date Diagnosed Date Resolved Date Plica of knee, right 02/20/2021 021 Medication side effect 03/12/201804/24 Abnormal finding on antenata l screening of mother 05/15/2016 11/23/2016 Overview: May 15, 2016 On sequential screen risk of Trisomy 21 is 1:190. I d/w her on phone options, will let us know how she would like to proceed. Temitope Acuna MD Rubella non-immune status, antepartum 04/17/2016 11/23/2016 UTI (urinary tract infection ) in , antepartum 04/02/2016 11/23/2016 Overview: April 02, 2016 ordered natasha Aviles MD Normal repeat , antepartum 03/29/2016 11/23/2016 Spotting in first trimester 03/22/2016 11/23/2016 Overview: 03/22/2016Pt was seen at [facility] 03/16/2016 for brown spotting and pelvic pain. SHe denies any bleeding or pain since 03/18/2016. An ultrasound was done at [facility] and revealed an IUP @ 8w5d. [facility] E.R[facility] report in [address] Aviles's review. TKRN History of 3 sections 03/22/2016 11/23/2016 Overview: 03/22/2016Pt had 3 previous C sections. She desires a repeat C section by Dr Cuevas. Patient desires PPTL.TKRN Nausea/vomiting in 03/22/2016 11/23/2016 Overview: 03/22/2016 Patient is complaining of nausea in . She denies any vomiting.Recommended Vitamin B6. Advised patient to call/come in if she is unable to keep any food or fluids down in a 24-hour period. TKRN Family history of cleft lip and palate 03/22/2016 11/23/2016 Overview: 03/22/2016The FOB has a son that was born with cleft lip and palate. Patient declines nuchal ultrasound. TKRN documented as of this encounter (statuses as of 01/09/2023) [facility]08-30-2021 History of Past illness Narrative* Problem Noted Date Diagnosed Date Resolved Date Plica of knee, right 02/20/2021 021 Medication side effect 03/12/201804/24 Abnormal finding on antenata l screening of mother 05/15/2016 11/23/2016 Overview: May 15, 2016 On sequential screen risk of Trisomy 21 is 1:190. I d/w her on phone options, will let us know how she would like to proceed. Temitope Acuna MD Rubella non-immune status, antepartum 04/17/2016 11/23/2016 UTI (urinary tract infection ) in , antepartum 04/02/2016 11/23/2016 Overview: April 02, 2016 ordered natasha Aviles MD Normal repeat , antepartum 03/29/2016 11/23/2016 Spotting in first trimester 03/22/2016 11/23/2016 Overview: 03/22/2016Pt was seen at [facility] 03/16/2016 for brown spotting and pelvic pain. SHe denies any bleeding or pain since 03/18/2016. An ultrasound was done at [facility] and revealed an IUP @ 8w5d. [facility] E.R[facility] report in [address] Aviles's review. TKRN History of 3 sections 03/22/2016 11/23/2016 Overview: 03/22/2016Pt had 3 previous C sections. She desires a repeat C section by Dr Cuevas. Patient desires PPTL.TKRN Nausea/vomiting in 03/22/2016 11/23/2016 Overview: 03/22/2016 Patient is complaining of nausea in . She denies any vomiting.Recommended Vitamin B6. Advised patient to call/come in if she is unable to keep any food or fluids down in a 24-hour period. TKRN Family history of cleft lip and palate 03/22/2016 11/23/2016 Overview: 03/22/2016The FOB has a son that was born with cleft lip and palate. Patient declines nuchal ultrasound. TKRN documented as of this encounter (statuses as of 01/10/2023) [facility]08-30-2021 History of Past illness Narrative* Problem Noted Date Diagnosed Date Resolved Date Plica of knee, right 02/20/2021 021 Medication side effect 03/12/201804/24 Abnormal finding on antenata l screening of mother 05/15/2016 11/23/2016 Overview: May 15, 2016 On sequential screen risk of Trisomy 21 is 1:190. I d/w her on phone options, will let us know how she would like to proceed. Temitope Acuna MD Rubella non-immune status, antepartum 04/17/2016 11/23/2016 UTI (urinary tract infection ) in , antepartum 04/02/2016 11/23/2016 Overview: April 02, 2016 ordered natasha Aviles MD Normal repeat , antepartum 03/29/2016 11/23/2016 Spotting in first trimester 03/22/2016 11/23/2016 Overview: 03/22/2016Pt was seen at [facility] 03/16/2016 for brown spotting and pelvic pain. SHe denies any bleeding or pain since 03/18/2016. An ultrasound was done at [facility] and revealed an IUP @ 8w5d. [facility] E.R[facility] report in [address] Aviles's review. TKRN History of 3 sections 03/22/2016 11/23/2016 Overview: 03/22/2016Pt had 3 previous C sections. She desires a repeat C section by Dr Cuevas. Patient desires PPTL.TKRN Nausea/vomiting in 03/22/2016 11/23/2016 Overview: 03/22/2016 Patient is complaining of nausea in . She denies any vomiting.Recommended Vitamin B6. Advised patient to call/come in if she is unable to keep any food or fluids down in a 24-hour period. TKRN Family history of cleft lip and palate 03/22/2016 11/23/2016 Overview: 03/22/2016The FOB has a son that was born with cleft lip and palate. Patient declines nuchal ultrasound. TKRN documented as of this encounter (statuses as of 01/22/2023) [facility]08-30-2021 History of Past illness Narrative* Problem Noted Date Diagnosed Date Resolved Date Plica of knee, right 02/20/2021 021 Medication side effect 03/12/201804/24 Abnormal finding on antenata l screening of mother 05/15/2016 11/23/2016 Overview: May 15, 2016 On sequential screen risk of Trisomy 21 is 1:190. I d/w her on phone options, will let us know how she would like to proceed. Temitope Acuna MD Rubella non-immune status, antepartum 04/17/2016 11/23/2016 UTI (urinary tract infection ) in , antepartum 04/02/2016 11/23/2016 Overview: April 02, 2016 ordered erasmobiludy Aviles MD Normal repeat , antepartum 03/29/2016 11/23/2016 Spotting in first trimester 03/22/2016 11/23/2016 Overview: 03/22/2016Pt was seen at [facility] 03/16/2016 for brown spotting and pelvic pain. SHe denies any bleeding or pain since 03/18/2016. An ultrasound was done at [facility] and revealed an IUP @ 8w5d. [facility] E.R[facility] report in [address] Aviles's review. TKRN History of 3 sections 03/22/2016 11/23/2016 Overview: 03/22/2016Pt had 3 previous C sections. She desires a repeat C section by Dr Cuevas. Patient desires PPTL.TKRN Nausea/vomiting in 03/22/2016 11/23/2016 Overview: 03/22/2016 Patient is complaining of nausea in . She denies any vomiting.Recommended Vitamin B6. Advised patient to call/come in if she is unable to keep any food or fluids down in a 24-hour period. TKRN Family history of cleft lip and palate 03/22/2016 11/23/2016 Overview: 03/22/2016The FOB has a son that was born with cleft lip and palate. Patient declines nuchal ultrasound. TKRN documented as of this encounter (statuses as of 01/29/2023) [facility]08-30-2021 History of Past illness Narrative* Problem Noted Date Diagnosed Date Resolved Date Plica of knee, right 02/20/2021 021 Medication side effect 03/12/201804/24 Abnormal finding on antenata l screening of mother 05/15/2016 11/23/2016 Overview: May 15, 2016 On sequential screen risk of Trisomy 21 is 1:190. I d/w her on phone options, will let us know how she would like to proceed. Temitope Acuna MD Rubella non-immune status, antepartum 04/17/2016 11/23/2016 UTI (urinary tract infection ) in , antepartum 04/02/2016 11/23/2016 Overview: April 02, 2016 ordered natasha Aviles MD Normal repeat , antepartum 03/29/2016 11/23/2016 Spotting in first trimester 03/22/2016 11/23/2016 Overview: 03/22/2016Pt was seen at [facility] 03/16/2016 for brown spotting and pelvic pain. SHe denies any bleeding or pain since 03/18/2016. An ultrasound was done at [facility] and revealed an IUP @ 8w5d. [facility] E.R[facility] report in [address] Aviles's review. TKRN History of 3 sections 03/22/2016 11/23/2016 Overview: 03/22/2016Pt had 3 previous C sections. She desires a repeat C section by Dr Cuevas. Patient desires PPTL.TKRN Nausea/vomiting in 03/22/2016 11/23/2016 Overview: 03/22/2016 Patient is complaining of nausea in . She denies any vomiting.Recommended Vitamin B6. Advised patient to call/come in if she is unable to keep any food or fluids down in a 24-hour period. TKRN Family history of cleft lip and palate 03/22/2016 11/23/2016 Overview: 03/22/2016The FOB has a son that was born with cleft lip and palate. Patient declines nuchal ultrasound. TKRN documented as of this encounter (statuses as of 01/30/2023) [facility]08-30-2021 History of Past illness Narrative* Problem Noted Date Diagnosed Date Resolved Date Plica of knee, right 02/20/2021 021 Medication side effect 03/12/201804/24 Abnormal finding on antenata l screening of mother 05/15/2016 11/23/2016 Overview: May 15, 2016 On sequential screen risk of Trisomy 21 is 1:190. I d/w her on phone options, will let us know how she would like to proceed. Temitope L Armand, MD Rubella non-immune status, antepartum 04/17/2016 11/23/2016 UTI (urinary tract infection ) in , antepartum 04/02/2016 11/23/2016 Overview: April 02, 2016 ordered natasha Aviles MD Normal repeat , antepartum 03/29/2016 11/23/2016 Spotting in first trimester 03/22/2016 11/23/2016 Overview: 03/22/2016Pt was seen at [facility] 03/16/2016 for brown spotting and pelvic pain. SHe denies any bleeding or pain since 03/18/2016. An ultrasound was done at [facility] and revealed an IUP @ 8w5d. [facility] E.R[facility] report in [address] Aviles's review. TKRN History of 3 sections 03/22/2016 11/23/2016 Overview: 03/22/2016Pt had 3 previous C sections. She desires a repeat C section by Dr Cuevas. Patient desires PPTL.TKRN Nausea/vomiting in 03/22/2016 11/23/2016 Overview: 03/22/2016 Patient is complaining of nausea in . She denies any vomiting.Recommended Vitamin B6. Advised patient to call/come in if she is unable to keep any food or fluids down in a 24-hour period. TKRN Family history of cleft lip and palate 03/22/2016 11/23/2016 Overview: 03/22/2016The FOB has a son that was born with cleft lip and palate. Patient declines nuchal ultrasound. TKRN documented as of this encounter (statuses as of 01/31/2023) [facility]08-30-2021 History of Past illness Narrative* Problem Noted Date Diagnosed Date Resolved Date Plica of knee, right 02/20/2021 021 Medication side effect 03/12/201804/24 Abnormal finding on antenata l screening of mother 05/15/2016 11/23/2016 Overview: May 15, 2016 On sequential screen risk of Trisomy 21 is 1:190. I d/w her on phone options, will let us know how she would like to proceed. Temitope Acuna MD Rubella non-immune status, antepartum 04/17/2016 11/23/2016 UTI (urinary tract infection ) in , antepartum 04/02/2016 11/23/2016 Overview: April 02, 2016 ordered macrobid Debo Aviles MD Normal repeat , antepartum 03/29/2016 11/23/2016 Spotting in first trimester 03/22/2016 11/23/2016 Overview: 03/22/2016Pt was seen at [facility] 03/16/2016 for brown spotting and pelvic pain. SHe denies any bleeding or pain since 03/18/2016. An ultrasound was done at [facility] and revealed an IUP @ 8w5d. [facility] E.R[facility] report in [address] Aviles's review. TKRN History of 3 sections 03/22/2016 11/23/2016 Overview: 03/22/2016Pt had 3 previous C sections. She desires a repeat C section by Dr Cuevas. Patient desires PPTL.TKRN Nausea/vomiting in 03/22/2016 11/23/2016 Overview: 03/22/2016 Patient is complaining of nausea in . She denies any vomiting.Recommended Vitamin B6. Advised patient to call/come in if she is unable to keep any food or fluids down in a 24-hour period. TKRN Family history of cleft lip and palate 03/22/2016 11/23/2016 Overview: 03/22/2016The FOB has a son that was born with cleft lip and palate. Patient declines nuchal ultrasound. TKRN documented as of this encounter (statuses as of 02/05/2023) [facility]08-30-2021 History of Past illness Narrative* Problem Noted Date Diagnosed Date Resolved Date Plica of knee, right 02/20/2021 08/30/2 021 Medication side effect 03/12/201804/24 Abnormal finding on antenata l screening of mother 05/15/2016 11/23/2016 Overview: May 15, 2016 On sequential screen risk of Trisomy 21 is 1:190. I d/w her on phone options, will let us know how she would like to proceed. Temitope Acuna MD Rubella non-immune status, antepartum 04/17/2016 11/23/2016 UTI (urinary tract infection ) in , antepartum 04/02/2016 11/23/2016 Overview: April 02, 2016 ordered natasha Aviles MD Normal repeat , antepartum 03/29/2016 11/23/2016 Spotting in first trimester 03/22/2016 11/23/2016 Overview: 03/22/2016Pt was seen at [facility] 03/16/2016 for brown spotting and pelvic pain. SHe denies any bleeding or pain since 03/18/2016. An ultrasound was done at [facility] and revealed an IUP @ 8w5d. [facility] E.R[facility] report in [address] Aviles's review. TKRN History of 3 sections 03/22/2016 11/23/2016 Overview: 03/22/2016Pt had 3 previous C sections. She desires a repeat C section by Dr Cuevas. Patient desires PPTL.TKRN Nausea/vomiting in 03/22/2016 11/23/2016 Overview: 03/22/2016 Patient is complaining of nausea in . She denies any vomiting.Recommended Vitamin B6. Advised patient to call/come in if she is unable to keep any food or fluids down in a 24-hour period. TKRN Family history of cleft lip and palate 03/22/2016 11/23/2016 Overview: 03/22/2016The FOB has a son that was born with cleft lip and palate. Patient declines nuchal ultrasound. TKRN documented as of this encounter (statuses as of 02/08/2023) [facility]08-30-2021 History of Past illness Narrative* Problem Noted Date Diagnosed Date Resolved Date Plica of knee, right 02/20/2021 021 Medication side effect 03/12/201804/24 Abnormal finding on antenata l screening of mother 05/15/2016 11/23/2016 Overview: May 15, 2016 On sequential screen risk of Trisomy 21 is 1:190. I d/w her on phone options, will let us know how she would like to proceed. Temitope Acuna MD Rubella non-immune status, antepartum 04/17/2016 11/23/2016 UTI (urinary tract infection ) in , antepartum 04/02/2016 11/23/2016 Overview: April 02, 2016 ordered natasha Aviles MD Normal repeat , antepartum 03/29/2016 11/23/2016 Spotting in first trimester 03/22/2016 11/23/2016 Overview: 03/22/2016Pt was seen at [facility] 03/16/2016 for brown spotting and pelvic pain. SHe denies any bleeding or pain since 03/18/2016. An ultrasound was done at [facility] and revealed an IUP @ 8w5d. [facility] E.R[facility] report in [address] Aviles's review. TKRN History of 3 sections 03/22/2016 11/23/2016 Overview: 03/22/2016Pt had 3 previous C sections. She desires a repeat C section by Dr Cuevas. Patient desires PPTL.TKRN Nausea/vomiting in 03/22/2016 11/23/2016 Overview: 03/22/2016 Patient is complaining of nausea in . She denies any vomiting.Recommended Vitamin B6. Advised patient to call/come in if she is unable to keep any food or fluids down in a 24-hour period. TKRN Family history of cleft lip and palate 03/22/2016 11/23/2016 Overview: 03/22/2016The FOB has a son that was born with cleft lip and palate. Patient declines nuchal ultrasound. TKRN documented as of this encounter (statuses as of 02/12/2023) [facility]08-30-2021 History of Past illness Narrative* Problem Noted Date Diagnosed Date Resolved Date Plica of knee, right 02/20/2021 021 Medication side effect 03/12/201804/24 Abnormal finding on antenata l screening of mother 05/15/2016 11/23/2016 Overview: May 15, 2016 On sequential screen risk of Trisomy 21 is 1:190. I d/w her on phone options, will let us know how she would like to proceed. Temitope Acuna MD Rubella non-immune status, antepartum 04/17/2016 11/23/2016 UTI (urinary tract infection ) in , antepartum 04/02/2016 11/23/2016 Overview: April 02, 2016 ordered natasha Aviles MD Normal repeat , antepartum 03/29/2016 11/23/2016 Spotting in first trimester 03/22/2016 11/23/2016 Overview: 03/22/2016Pt was seen at [facility] 03/16/2016 for brown spotting and pelvic pain. SHe denies any bleeding or pain since 03/18/2016. An ultrasound was done at [facility] and revealed an IUP @ 8w5d. [facility] E[facility] report in [address] Aviles's review. TKRN History of 3 sections 03/22/2016 11/23/2016 Overview: 03/22/2016Pt had 3 previous C sections. She desires a repeat C section by Dr Cuevas. Patient desires PPTL.TKRN Family history of cleft lip and palate 03/22/2016 11/23/2016 Overview: 03/22/2016The FOB has a son that was born with cleft lip and palate. Patient declines nuchal ultrasound. TKRN documented as of this encounter (statuses as of 02/13/2023) [facility]08-30-2021 History of Past illness Narrative* Problem Noted Date Diagnosed Date Resolved Date Plica of knee, right 02/20/2021 021 Medication side effect 03/12/201804/24 Abnormal finding on antenata l screening of mother 05/15/2016 11/23/2016 Overview: May 15, 2016 On sequential screen risk of Trisomy 21 is 1:190. I d/w her on phone options, will let us know how she would like to proceed. Temitope Acuna MD Rubella non-immune status, antepartum 04/17/2016 11/23/2016 UTI (urinary tract infection ) in , antepartum 04/02/2016 11/23/2016 Overview: April 02, 2016 ordered erasmobiludy Aviles MD Normal repeat , antepartum 03/29/2016 11/23/2016 Spotting in first trimester 03/22/2016 11/23/2016 Overview: 03/22/2016Pt was seen at [facility] 03/16/2016 for brown spotting and pelvic pain. SHe denies any bleeding or pain since 03/18/2016. An ultrasound was done at [facility] and revealed an IUP @ 8w5d. [facility] E.R[facility] report in [address] Aviles's review. TKRN History of 3 sections 03/22/2016 11/23/2016 Overview: 03/22/2016Pt had 3 previous C sections. She desires a repeat C section by Dr Cuevas. Patient desires PPTL.TKRN Family history of cleft lip and palate 03/22/2016 11/23/2016 Overview: 03/22/2016The FOB has a son that was born with cleft lip and palate. Patient declines nuchal ultrasound. TKRN documented as of this encounter (statuses as of 02/13/2023) [facility]08-30-2021 History of Past illness Narrative* Problem Noted Date Diagnosed Date Resolved Date Plica of knee, right 02/20/2021 021 Medication side effect 03/12/201804/24 Abnormal finding on antenata l screening of mother 05/15/2016 11/23/2016 Overview: May 15, 2016 On sequential screen risk of Trisomy 21 is 1:190. I d/w her on phone options, will let us know how she would like to proceed. Temitope Acuna MD Rubella non-immune status, antepartum 04/17/2016 11/23/2016 UTI (urinary tract infection ) in , antepartum 04/02/2016 11/23/2016 Overview: April 02, 2016 ordered natasha Aviles MD Normal repeat , antepartum 03/29/2016 11/23/2016 Spotting in first trimester 03/22/2016 11/23/2016 Overview: 03/22/2016Pt was seen at [facility] 03/16/2016 for brown spotting and pelvic pain. SHe denies any bleeding or pain since 03/18/2016. An ultrasound was done at [facility] and revealed an IUP @ 8w5d. [facility] E.R. report in [address] Aviles's review. TKRN History of 3 sections 03/22/2016 11/23/2016 Overview: 03/22/2016Pt had 3 previous C sections. She desires a repeat C section by Dr Cuevas. Patient desires PPTL.TKRN Family history of cleft lip and palate 03/22/2016 11/23/2016 Overview: 03/22/2016The FOB has a son that was born with cleft lip and palate. Patient declines nuchal ultrasound. TKRN documented as of this encounter (statuses as of 02/21/2023) [facility]08-30-2021 History of Past illness Narrative* Problem Noted Date Diagnosed Date Resolved Date Plica of knee, right 02/20/2021 021 Medication side effect 03/12/201804/24 Abnormal finding on antenata l screening of mother 05/15/2016 11/23/2016 Overview: May 15, 2016 On sequential screen risk of Trisomy 21 is 1:190. I d/w her on phone options, will let us know how she would like to proceed. Temitope Acuna MD Rubella non-immune status, antepartum 04/17/2016 11/23/2016 UTI (urinary tract infection ) in , antepartum 04/02/2016 11/23/2016 Overview: April 02, 2016 ordered natasha Aviles MD Normal repeat , antepartum 03/29/2016 11/23/2016 Spotting in first trimester 03/22/2016 11/23/2016 Overview: 03/22/2016Pt was seen at [facility] 03/16/2016 for brown spotting and pelvic pain. SHe denies any bleeding or pain since 03/18/2016. An ultrasound was done at [facility] and revealed an IUP @ 8w5d. [facility] E.R. report in [address] Aviles's review. TKRN History of 3 sections 03/22/2016 11/23/2016 Overview: 03/22/2016Pt had 3 previous C sections. She desires a repeat C section by Dr Cuevas. Patient desires PPTL.TKRN Family history of cleft lip and palate 03/22/2016 11/23/2016 Overview: 03/22/2016The FOB has a son that was born with cleft lip and palate. Patient declines nuchal ultrasound. TKRN documented as of this encounter (statuses as of 02/27/2023) [facility]08-30-2021 History of Past illness Narrative* Problem Noted Date Diagnosed Date Resolved Date Plica of knee, right 02/20/2021 021 Medication side effect 03/12/201804/24 Abnormal finding on antenata l screening of mother 05/15/2016 11/23/2016 Overview: May 15, 2016 On sequential screen risk of Trisomy 21 is 1:190. I d/w her on phone options, will let us know how she would like to proceed. Temitope Acuna MD Rubella non-immune status, antepartum 04/17/2016 11/23/2016 UTI (urinary tract infection ) in , antepartum 04/02/2016 11/23/2016 Overview: April 02, 2016 ordered natasha Aviles MD Normal repeat , antepartum 03/29/2016 11/23/2016 Spotting in first trimester 03/22/2016 11/23/2016 Overview: 03/22/2016Pt was seen at [facility] 03/16/2016 for brown spotting and pelvic pain. SHe denies any bleeding or pain since 03/18/2016. An ultrasound was done at [facility] and revealed an IUP @ 8w5d. [facility] E.R. report in [address] Aviles's review. TKRN History of 3 sections 03/22/2016 11/23/2016 Overview: 03/22/2016Pt had 3 previous C sections. She desires a repeat C section by Dr Cuevas. Patient desires PPTL.TKRN Family history of cleft lip and palate 03/22/2016 11/23/2016 Overview: 03/22/2016The FOB has a son that was born with cleft lip and palate. Patient declines nuchal ultrasound. TKRN documented as of this encounter (statuses as of 03/14/2023) [facility]08-30-2021 History of Past illness Narrative* Problem Noted Date Diagnosed Date Resolved Date Plica of knee, right 02/20/2021 021 Medication side effect 03/12/201804/24 Abnormal finding on antenata l screening of mother 05/15/2016 11/23/2016 Overview: May 15, 2016 On sequential screen risk of Trisomy 21 is 1:190. I d/w her on phone options, will let us know how she would like to proceed. Temitope Acuna MD Rubella non-immune status, antepartum 04/17/2016 11/23/2016 UTI (urinary tract infection ) in , antepartum 04/02/2016 11/23/2016 Overview: April 02, 2016 ordered natasha Aviles MD Normal repeat , antepartum 03/29/2016 11/23/2016 Spotting in first trimester 03/22/2016 11/23/2016 Overview: 03/22/2016Pt was seen at [facility] 03/16/2016 for brown spotting and pelvic pain. SHe denies any bleeding or pain since 03/18/2016. An ultrasound was done at [facility] and revealed an IUP @ 8w5d. [facility] E.R. report in [address] Aviles's review. TKRN History of 3 sections 03/22/2016 11/23/2016 Overview: 03/22/2016Pt had 3 previous C sections. She desires a repeat C section by Dr Cuevas. Patient desires PPTL.TKRN Family history of cleft lip and palate 03/22/2016 11/23/2016 Overview: 03/22/2016The FOB has a son that was born with cleft lip and palate. Patient declines nuchal ultrasound. TKRN documented as of this encounter (statuses as of 03/30/2023) [facility]08-30-2021 History of Past illness Narrative* Problem Noted Date Diagnosed Date Resolved Date Plica of knee, right 02/20/2021 021 Medication side effect 03/12/201804/24 Abnormal finding on antenata l screening of mother 05/15/2016 11/23/2016 Overview: May 15, 2016 On sequential screen risk of Trisomy 21 is 1:190. I d/w her on phone options, will let us know how she would like to proceed. Temitope Acuna MD Rubella non-immune status, antepartum 04/17/2016 11/23/2016 UTI (urinary tract infection ) in , antepartum 04/02/2016 11/23/2016 Overview: April 02, 2016 ordered natasha Aviles MD Normal repeat , antepartum 03/29/2016 11/23/2016 Spotting in first trimester 03/22/2016 11/23/2016 Overview: 03/22/2016Pt was seen at [facility] 03/16/2016 for brown spotting and pelvic pain. SHe denies any bleeding or pain since 03/18/2016. An ultrasound was done at [facility] and revealed an IUP @ 8w5d. [facility] E.R[facility] report in [address] Aviles's review. TKRN History of 3 sections 03/22/2016 11/23/2016 Overview: 03/22/2016Pt had 3 previous C sections. She desires a repeat C section by Dr Cuevas. Patient desires PPTL.TKRN Family history of cleft lip and palate 03/22/2016 11/23/2016 Overview: 03/22/2016The FOB has a son that was born with cleft lip and palate. Patient declines nuchal ultrasound. TKRN documented as of this encounter (statuses as of 04/01/2023) [facility]08-30-2021 History of Past illness Narrative* Problem Noted Date Diagnosed Date Resolved Date Plica of knee, right 02/20/2021 021 Medication side effect 03/12/201804/24 Abnormal finding on antenata l screening of mother 05/15/2016 11/23/2016 Overview: May 15, 2016 On sequential screen risk of Trisomy 21 is 1:190. I d/w her on phone options, will let us know how she would like to proceed. Temitope Acuna MD Rubella non-immune status, antepartum 04/17/2016 11/23/2016 UTI (urinary tract infection ) in , antepartum 04/02/2016 11/23/2016 Overview: April 02, 2016 ordered natasha Aviles MD Normal repeat , antepartum 03/29/2016 11/23/2016 Spotting in first trimester 03/22/2016 11/23/2016 Overview: 03/22/2016Pt was seen at [facility] 03/16/2016 for brown spotting and pelvic pain. SHe denies any bleeding or pain since 03/18/2016. An ultrasound was done at [facility] and revealed an IUP @ 8w5d. [facility] E.R[facility] report in [address] Aviles's review. TKRN History of 3 sections 03/22/2016 11/23/2016 Overview: 03/22/2016Pt had 3 previous C sections. She desires a repeat C section by Dr Cuevas. Patient desires PPTL.TKRN Family history of cleft lip and palate 03/22/2016 11/23/2016 Overview: 03/22/2016The FOB has a son that was born with cleft lip and palate. Patient declines nuchal ultrasound. TKRN documented as of this encounter (statuses as of 04/04/2023) [facility]08-30-2021 History of Past illness Narrative* Problem Noted Date Diagnosed Date Resolved Date Plica of knee, right 02/20/2021 021 Medication side effect 03/12/201804/24 Abnormal finding on antenata l screening of mother 05/15/2016 11/23/2016 Overview: May 15, 2016 On sequential screen risk of Trisomy 21 is 1:190. I d/w her on phone options, will let us know how she would like to proceed. Temitope Acuna MD Rubella non-immune status, antepartum 04/17/2016 11/23/2016 UTI (urinary tract infection ) in , antepartum 04/02/2016 11/23/2016 Overview: April 02, 2016 ordered natasha Aviles MD Normal repeat , antepartum 03/29/2016 11/23/2016 Spotting in first trimester 03/22/2016 11/23/2016 Overview: 03/22/2016Pt was seen at [facility] 03/16/2016 for brown spotting and pelvic pain. SHe denies any bleeding or pain since 03/18/2016. An ultrasound was done at [facility] and revealed an IUP @ 8w5d. [facility] E.R[facility] report in [address] Aviles's review. TKRN History of 3 sections 03/22/2016 11/23/2016 Overview: 03/22/2016Pt had 3 previous C sections. She desires a repeat C section by Dr Cuevas. Patient desires PPTL.TKRN Family history of cleft lip and palate 03/22/2016 11/23/2016 Overview: 03/22/2016The FOB has a son that was born with cleft lip and palate. Patient declines nuchal ultrasound. TKRN documented as of this encounter (statuses as of 04/16/2023) [facility]08-30-2021 History of Past illness Narrative* Problem Noted Date Diagnosed Date Resolved Date Plica of knee, right 02/20/2021 021 Medication side effect 03/12/201804/24 Abnormal finding on antenata l screening of mother 05/15/2016 11/23/2016 Overview: May 15, 2016 On sequential screen risk of Trisomy 21 is 1:190. I d/w her on phone options, will let us know how she would like to proceed. Temitope Acuna MD Rubella non-immune status, antepartum 04/17/2016 11/23/2016 UTI (urinary tract infection ) in , antepartum 04/02/2016 11/23/2016 Overview: April 02, 2016 ordered natasha Aviles MD Normal repeat , antepartum 03/29/2016 11/23/2016 Spotting in first trimester 03/22/2016 11/23/2016 Overview: 03/22/2016Pt was seen at [facility] 03/16/2016 for brown spotting and pelvic pain. SHe denies any bleeding or pain since 03/18/2016. An ultrasound was done at [facility] and revealed an IUP @ 8w5d. [facility] E.R[facility] report in [address] Aviles's review. TKRN History of 3 sections 03/22/2016 11/23/2016 Overview: 03/22/2016Pt had 3 previous C sections. She desires a repeat C section by Dr Cuevas. Patient desires PPTL.TKRN Family history of cleft lip and palate 03/22/2016 11/23/2016 Overview: 03/22/2016The FOB has a son that was born with cleft lip and palate. Patient declines nuchal ultrasound. TKRN documented as of this encounter (statuses as of 05/03/2023) [facility]08-30-2021 History of Past illness Narrative* Problem Noted Date Diagnosed Date Resolved Date Plica of knee, right 02/20/2021 021 Medication side effect 03/12/201804/24 Abnormal finding on antenata l screening of mother 05/15/2016 11/23/2016 Overview: May 15, 2016 On sequential screen risk of Trisomy 21 is 1:190. I d/w her on phone options, will let us know how she would like to proceed. Temitope Acuna MD Rubella non-immune status, antepartum 04/17/2016 11/23/2016 UTI (urinary tract infection ) in , antepartum 04/02/2016 11/23/2016 Overview: April 02, 2016 ordered natasha Aviles MD Normal repeat , antepartum 03/29/2016 11/23/2016 Spotting in first trimester 03/22/2016 11/23/2016 Overview: 03/22/2016Pt was seen at [facility] 03/16/2016 for brown spotting and pelvic pain. SHe denies any bleeding or pain since 03/18/2016. An ultrasound was done at [facility] and revealed an IUP @ 8w5d. [facility] E.R. report in [address] Aviles's review. TKRN History of 3 sections 03/22/2016 11/23/2016 Overview: 03/22/2016Pt had 3 previous C sections. She desires a repeat C section by Dr Cuevas. Patient desires PPTL.TKRN Family history of cleft lip and palate 03/22/2016 11/23/2016 Overview: 03/22/2016The FOB has a son that was born with cleft lip and palate. Patient declines nuchal ultrasound. TKRN documented as of this encounter (statuses as of 05/23/2023) [facility]08-30-2021 History of Past illness Narrative* Problem Noted Date Diagnosed Date Resolved Date Plica of knee, right 02/20/2021 021 Medication side effect 03/12/201804/24 Abnormal finding on antenata l screening of mother 05/15/2016 11/23/2016 Overview: May 15, 2016 On sequential screen risk of Trisomy 21 is 1:190. I d/w her on phone options, will let us know how she would like to proceed. Temitope Acuna MD Rubella non-immune status, antepartum 04/17/2016 11/23/2016 UTI (urinary tract infection ) in , antepartum 04/02/2016 11/23/2016 Overview: April 02, 2016 ordered natasha Aviles MD Normal repeat , antepartum 03/29/2016 11/23/2016 Spotting in first trimester 03/22/2016 11/23/2016 Overview: 03/22/2016Pt was seen at [facility] 03/16/2016 for brown spotting and pelvic pain. SHe denies any bleeding or pain since 03/18/2016. An ultrasound was done at [facility] and revealed an IUP @ 8w5d. [facility] E[facility] report in [address] Aviles's review. TKRN History of 3 sections 03/22/2016 11/23/2016 Overview: 03/22/2016Pt had 3 previous C sections. She desires a repeat C section by Dr Cuevas. Patient desires PPTL.TKRN Family history of cleft lip and palate 03/22/2016 11/23/2016 Overview: 03/22/2016The FOB has a son that was born with cleft lip and palate. Patient declines nuchal ultrasound. TKRN documented as of this encounter (statuses as of 05/28/2023) [facility]08-30-2021 History of Past illness Narrative* Problem Noted Date Diagnosed Date Resolved Date Plica of knee, right 02/20/2021 021 Medication side effect 03/12/201804/24 Abnormal finding on antenata l screening of mother 05/15/2016 11/23/2016 Overview: May 15, 2016 On sequential screen risk of Trisomy 21 is 1:190. I d/w her on phone options, will let us know how she would like to proceed. Temitope Acuna MD Rubella non-immune status, antepartum 04/17/2016 11/23/2016 UTI (urinary tract infection ) in , antepartum 04/02/2016 11/23/2016 Overview: April 02, 2016 ordered erasmobid Debo Aviles MD Normal repeat , antepartum 03/29/2016 11/23/2016 Spotting in first trimester 03/22/2016 11/23/2016 Overview: 03/22/2016Pt was seen at [facility] 03/16/2016 for brown spotting and pelvic pain. SHe denies any bleeding or pain since 03/18/2016. An ultrasound was done at [facility] and revealed an IUP @ 8w5d. [facility] E[facility] report in [address] Aviles's review. TKRN History of 3 sections 03/22/2016 11/23/2016 Overview: 03/22/2016Pt had 3 previous C sections. She desires a repeat C section by Dr Cuevas. Patient desires PPTL.TKRN Family history of cleft lip and palate 03/22/2016 11/23/2016 Overview: 03/22/2016The FOB has a son that was born with cleft lip and palate. Patient declines nuchal ultrasound. TKRN documented as of this encounter (statuses as of 06/02/2023) [facility]08-30-2021 History of Past illness Narrative* Problem Noted Date Diagnosed Date Resolved Date Plica of knee, right 02/20/2021 021 Medication side effect 03/12/201804/24 Abnormal finding on antenata l screening of mother 05/15/2016 11/23/2016 Overview: May 15, 2016 On sequential screen risk of Trisomy 21 is 1:190. I d/w her on phone options, will let us know how she would like to proceed. Temitope Acuna MD Rubella non-immune status, antepartum 04/17/2016 11/23/2016 UTI (urinary tract infection ) in , antepartum 04/02/2016 11/23/2016 Overview: April 02, 2016 ordered erasmobid Debo Aviles MD Normal repeat , antepartum 03/29/2016 11/23/2016 Spotting in first trimester 03/22/2016 11/23/2016 Overview: 03/22/2016Pt was seen at [facility] 03/16/2016 for brown spotting and pelvic pain. SHe denies any bleeding or pain since 03/18/2016. An ultrasound was done at [facility] and revealed an IUP @ 8w5d. [facility] E[facility] report in [address] Aviles's review. TKRN History of 3 sections 03/22/2016 11/23/2016 Overview: 03/22/2016Pt had 3 previous C sections. She desires a repeat C section by Dr Cuevas. Patient desires PPTL.TKRN Family history of cleft lip and palate 03/22/2016 11/23/2016 Overview: 03/22/2016The FOB has a son that was born with cleft lip and palate. Patient declines nuchal ultrasound. TKRN documented as of this encounter (statuses as of 06/05/2023) [facility]08[facility]-2021 History of Past illness Narrative* Problem Noted Date Diagnosed Date Resolved Date Plica of knee, right 02/20/2021 021 Medication side effect 03/12/201804/24 Abnormal finding on antenata l screening of mother 05/15/2016 11/23/2016 Overview: May 15, 2016 On sequential screen risk of Trisomy 21 is 1:190. I d/w her on phone options, will let us know how she would like to proceed. Temitope Acuna MD Rubella non-immune status, antepartum 04/17/2016 11/23/2016 UTI (urinary tract infection ) in , antepartum 04/02/2016 11/23/2016 Overview: April 02, 2016 ordered erasmobiludy Aviles MD Normal repeat , antepartum 03/29/2016 11/23/2016 Spotting in first trimester 03/22/2016 11/23/2016 Overview: 03/22/2016Pt was seen at [facility] 03/16/2016 for brown spotting and pelvic pain. SHe denies any bleeding or pain since 03/18/2016. An ultrasound was done at [facility] and revealed an IUP @ 8w5d. [facility] E.R[facility] report in [address] Aviles's review. TKRN History of 3 sections 03/22/2016 11/23/2016 Overview: 03/22/2016Pt had 3 previous C sections. She desires a repeat C section by Dr Cuevas. Patient desires PPTL.TKRN Family history of cleft lip and palate 03/22/2016 11/23/2016 Overview: 03/22/2016The FOB has a son that was born with cleft lip and palate. Patient declines nuchal ultrasound. TKRN documented as of this encounter (statuses as of 06/08/2023) [facility]08[facility]2021 History of Past illness Narrative* Problem Noted Date Diagnosed Date Resolved Date Plica of knee, right 02/20/2021 021 Medication side effect 03/12/201804/24 Abnormal finding on antenata l screening of mother 05/15/2016 11/23/2016 Overview: May 15, 2016 On sequential screen risk of Trisomy 21 is 1:190. I d/w her on phone options, will let us know how she would like to proceed. Temitope Acuna MD Rubella non-immune status, antepartum 04/17/2016 11/23/2016 UTI (urinary tract infection ) in , antepartum 04/02/2016 11/23/2016 Overview: April 02, 2016 ordered natasha Aviles MD Normal repeat , antepartum 03/29/2016 11/23/2016 Spotting in first trimester 03/22/2016 11/23/2016 Overview: 03/22/2016Pt was seen at [facility] 03/16/2016 for brown spotting and pelvic pain. SHe denies any bleeding or pain since 03/18/2016. An ultrasound was done at [facility] and revealed an IUP @ 8w5d. [facility] E[facility] report in [address] Aviles's review. TKRN History of 3 sections 03/22/2016 11/23/2016 Overview: 03/22/2016Pt had 3 previous C sections. She desires a repeat C section by Dr Cuevas. Patient desires PPTL.TKRN Family history of cleft lip and palate 03/22/2016 11/23/2016 Overview: 03/22/2016The FOB has a son that was born with cleft lip and palate. Patient declines nuchal ultrasound. TKRN documented as of this encounter (statuses as of 06/08/2023) [facility]08[facility]21 History of Past illness Narrative* Problem Noted Date Diagnosed Date Resolved Date Plica of knee, right 02/20/2021 021 Medication side effect 03/12/201804/24 Abnormal finding on antenata l screening of mother 05/15/2016 11/23/2016 Overview: May 15, 2016 On sequential screen risk of Trisomy 21 is 1:190. I d/w her on phone options, will let us know how she would like to proceed. Temitope Acuna MD Rubella non-immune status, antepartum 04/17/2016 11/23/2016 UTI (urinary tract infection ) in , antepartum 04/02/2016 11/23/2016 Overview: April 02, 2016 ordered natasha Aviles MD Normal repeat , antepartum 03/29/2016 11/23/2016 Spotting in first trimester 03/22/2016 11/23/2016 Overview: 03/22/2016Pt was seen at [facility] 03/16/2016 for brown spotting and pelvic pain. SHe denies any bleeding or pain since 03/18/2016. An ultrasound was done at [facility] and revealed an IUP @ 8w5d. [facility] E[facility] report in [address] Aviles's review. TKRN History of 3 sections 03/22/2016 11/23/2016 Overview: 03/22/2016Pt had 3 previous C sections. She desires a repeat C section by Dr Cuevas. Patient desires PPTL.TKRN Family history of cleft lip and palate 03/22/2016 11/23/2016 Overview: 03/22/2016The FOB has a son that was born with cleft lip and palate. Patient declines nuchal ultrasound. TKRN documented as of this encounter (statuses as of 07/26/2023) [facility] History of Past illness Narrative* Problem Noted Date Diagnosed Date Resolved Date Plica of knee, right 02/20/2021 021 Medication side effect 03/12/201804/24 Abnormal finding on antenata l screening of mother 05/15/2016 11/23/2016 Overview: May 15, 2016 On sequential screen risk of Trisomy 21 is 1:190. I d/w her on phone options, will let us know how she would like to proceed. Temitope Acuna MD Rubella non-immune status, antepartum 04/17/2016 11/23/2016 UTI (urinary tract infection ) in , antepartum 04/02/2016 11/23/2016 Overview: April 02, 2016 ordered natasha Aviles MD Normal repeat , antepartum 03/29/2016 11/23/2016 Spotting in first trimester 03/22/2016 11/23/2016 Overview: 03/22/2016Pt was seen at [facility] 03/16/2016 for brown spotting and pelvic pain. SHe denies any bleeding or pain since 03/18/2016. An ultrasound was done at [facility] and revealed an IUP @ 8w5d. [facility] E.R. report in [address] Aviles's review. TKRN History of 3 sections 03/22/2016 11/23/2016 Overview: 03/22/2016Pt had 3 previous C sections. She desires a repeat C section by Dr Cuevas. Patient desires PPTL.TKRN Family history of cleft lip and palate 03/22/2016 11/23/2016 Overview: 03/22/2016The FOB has a son that was born with cleft lip and palate. Patient declines nuchal ultrasound. TKRN documented as of this encounter (statuses as of 08/08/2023) [facility]08-30-2021 History of Past illness Narrative* Problem Noted Date Diagnosed Date Resolved Date Plica of knee, right 02/20/2021 021 Medication side effect 03/12/201804/24 Abnormal finding on antenata l screening of mother 05/15/2016 11/23/2016 Overview: May 15, 2016 On sequential screen risk of Trisomy 21 is 1:190. I d/w her on phone options, will let us know how she would like to proceed. Temitope Acuna MD Rubella non-immune status, antepartum 04/17/2016 11/23/2016 UTI (urinary tract infection ) in , antepartum 04/02/2016 11/23/2016 Overview: April 02, 2016 ordered natasha Aviles MD Normal repeat , antepartum 03/29/2016 11/23/2016 Spotting in first trimester 03/22/2016 11/23/2016 Overview: 03/22/2016Pt was seen at [facility] 03/16/2016 for brown spotting and pelvic pain. SHe denies any bleeding or pain since 03/18/2016. An ultrasound was done at [facility] and revealed an IUP @ 8w5d. [facility] E.R. report in suite [address] Aviles's review. TKRN History of 3 sections 03/22/2016 11/23/2016 Overview: 03/22/2016Pt had 3 previous C sections. She desires a repeat C section by Dr Cuevas. Patient desires PPTL.TKRN Family history of cleft lip and palate 03/22/2016 11/23/2016 Overview: 03/22/2016The FOB has a son that was born with cleft lip and palate. Patient declines nuchal ultrasound. TKRN documented as of this encounter (statuses as of 08/09/2023) [facility]08-30-2021 History of Past illness Narrative* Problem Noted Date Diagnosed Date Resolved Date Plica of knee, right 02/20/2021 021 Medication side effect 03/12/201804/24 Abnormal finding on antenata l screening of mother 05/15/2016 11/23/2016 Overview: May 15, 2016 On sequential screen risk of Trisomy 21 is 1:190. I d/w her on phone options, will let us know how she would like to proceed. Temitope Acuna MD Rubella non-immune status, antepartum 04/17/2016 11/23/2016 UTI (urinary tract infection ) in , antepartum 04/02/2016 11/23/2016 Overview: April 02, 2016 ordered natasha Aviles MD Normal repeat , antepartum 03/29/2016 11/23/2016 Spotting in first trimester 03/22/2016 11/23/2016 Overview: 03/22/2016Pt was seen at [facility] 03/16/2016 for brown spotting and pelvic pain. SHe denies any bleeding or pain since 03/18/2016. An ultrasound was done at [facility] and revealed an IUP @ 8w5d. [facility] E.R. report in [address] Aviles's review. TKRN History of 3 sections 03/22/2016 11/23/2016 Overview: 03/22/2016Pt had 3 previous C sections. She desires a repeat C section by Dr Cuevas. Patient desires PPTL.TKRN Family history of cleft lip and palate 03/22/2016 11/23/2016 Overview: 03/22/2016The FOB has a son that was born with cleft lip and palate. Patient declines nuchal ultrasound. TKRN documented as of this encounter (statuses as of 08/12/2023) [facility]08-30-2021 History of Past illness Narrative* Problem Noted Date Diagnosed Date Resolved Date Plica of knee, right 02/20/2021 021 Medication side effect 03/12/201804/24 Abnormal finding on antenata l screening of mother 05/15/2016 11/23/2016 Overview: May 15, 2016 On sequential screen risk of Trisomy 21 is 1:190. I d/w her on phone options, will let us know how she would like to proceed. Temitope Acuna MD Rubella non-immune status, antepartum 04/17/2016 11/23/2016 UTI (urinary tract infection ) in , antepartum 04/02/2016 11/23/2016 Overview: April 02, 2016 ordered natasha Aviles MD Normal repeat , antepartum 03/29/2016 11/23/2016 Spotting in first trimester 03/22/2016 11/23/2016 Overview: 03/22/2016Pt was seen at [facility] 03/16/2016 for brown spotting and pelvic pain. SHe denies any bleeding or pain since 03/18/2016. An ultrasound was done at [facility] and revealed an IUP @ 8w5d. [facility] E.R. report in [address] Aviles's review. TKRN History of 3 sections 03/22/2016 11/23/2016 Overview: 03/22/2016Pt had 3 previous C sections. She desires a repeat C section by Dr Cuevas. Patient desires PPTL.TKRN Family history of cleft lip and palate 03/22/2016 11/23/2016 Overview: 03/22/2016The FOB has a son that was born with cleft lip and palate. Patient declines nuchal ultrasound. TKRN documented as of this encounter (statuses as of 08/26/2023) [facility]08-30-2021 History of Past illness Narrative* Problem Noted Date Diagnosed Date Resolved Date Plica of knee, right 02/20/2021 021 Medication side effect 03/12/201804/24 Abnormal finding on antenata l screening of mother 05/15/2016 11/23/2016 Overview: May 15, 2016 On sequential screen risk of Trisomy 21 is 1:190. I d/w her on phone options, will let us know how she would like to proceed. Temitope Acuna MD Rubella non-immune status, antepartum 04/17/2016 11/23/2016 UTI (urinary tract infection ) in , antepartum 04/02/2016 11/23/2016 Overview: April 02, 2016 ordered natasha Aviles MD Normal repeat , antepartum 03/29/2016 11/23/2016 Spotting in first trimester 03/22/2016 11/23/2016 Overview: 03/22/2016Pt was seen at [facility] 03/16/2016 for brown spotting and pelvic pain. SHe denies any bleeding or pain since 03/18/2016. An ultrasound was done at [facility] and revealed an IUP @ 8w5d. [facility] E.R. report in [address] Aviles's review. TKRN History of 3 sections 03/22/2016 11/23/2016 Overview: 03/22/2016Pt had 3 previous C sections. She desires a repeat C section by Dr Cuevas. Patient desires PPTL.TKRN Family history of cleft lip and palate 03/22/2016 11/23/2016 Overview: 03/22/2016The FOB has a son that was born with cleft lip and palate. Patient declines nuchal ultrasound. TKRN documented as of this encounter (statuses as of 08/26/2023) [facility]08-30-2021 History of Past illness Narrative* Problem Noted Date Diagnosed Date Resolved Date Plica of knee, right 02/20/2021 021 Medication side effect 03/12/201804/24 Abnormal finding on antenata l screening of mother 05/15/2016 11/23/2016 Overview: May 15, 2016 On sequential screen risk of Trisomy 21 is 1:190. I d/w her on phone options, will let us know how she would like to proceed. Temitope Acuna MD Rubella non-immune status, antepartum 04/17/2016 11/23/2016 UTI (urinary tract infection ) in , antepartum 04/02/2016 11/23/2016 Overview: April 02, 2016 ordered erasmobiludy Aviles MD Normal repeat , antepartum 03/29/2016 11/23/2016 Spotting in first trimester 03/22/2016 11/23/2016 Overview: 03/22/2016Pt was seen at [facility] 03/16/2016 for brown spotting and pelvic pain. SHe denies any bleeding or pain since 03/18/2016. An ultrasound was done at [facility] and revealed an IUP @ 8w5d. [facility] E.R. report in [address] Aviles's review. TKRN History of 3 sections 03/22/2016 11/23/2016 Overview: 03/22/2016Pt had 3 previous C sections. She desires a repeat C section by Dr Cuevas. Patient desires PPTL.TKRN Family history of cleft lip and palate 03/22/2016 11/23/2016 Overview: 03/22/2016The FOB has a son that was born with cleft lip and palate. Patient declines nuchal ultrasound. TKRN documented as of this encounter (statuses as of 09/02/2023) [facility]08-30-2021 History of Past illness Narrative* Problem Noted Date Diagnosed Date Resolved Date Plica of knee, right 02/20/2021 021 Medication side effect 03/12/201804/24 Abnormal finding on antenata l screening of mother 05/15/2016 11/23/2016 Overview: May 15, 2016 On sequential screen risk of Trisomy 21 is 1:190. I d/w her on phone options, will let us know how she would like to proceed. Temitope Acuna MD Rubella non-immune status, antepartum 04/17/2016 11/23/2016 UTI (urinary tract infection ) in , antepartum 04/02/2016 11/23/2016 Overview: April 02, 2016 ordered natasha Aviles MD Normal repeat , antepartum 03/29/2016 11/23/2016 Spotting in first trimester 03/22/2016 11/23/2016 Overview: 03/22/2016Pt was seen at [facility] 03/16/2016 for brown spotting and pelvic pain. SHe denies any bleeding or pain since 03/18/2016. An ultrasound was done at [facility] and revealed an IUP @ 8w5d. [facility] E.R. report in suite [address] Aviles's review. TKRN History of 3 sections 03/22/2016 11/23/2016 Overview: 03/22/2016Pt had 3 previous C sections. She desires a repeat C section by Dr Cuevas. Patient desires PPTL.TKRN Family history of cleft lip and palate 03/22/2016 11/23/2016 Overview: 03/22/2016The FOB has a son that was born with cleft lip and palate. Patient declines nuchal ultrasound. TKRN documented as of this encounter (statuses as of 09/05/2023) [facility]08-30-2021 History of Past illness Narrative* Problem Noted Date Diagnosed Date Resolved Date Plica of knee, right 02/20/2021 021 Medication side effect 03/12/201804/24 Abnormal finding on antenata l screening of mother 05/15/2016 11/23/2016 Overview: May 15, 2016 On sequential screen risk of Trisomy 21 is 1:190. I d/w her on phone options, will let us know how she would like to proceed. Temitope Acuna MD Rubella non-immune status, antepartum 04/17/2016 11/23/2016 UTI (urinary tract infection ) in , antepartum 04/02/2016 11/23/2016 Overview: April 02, 2016 ordered natasha Aviles MD Normal repeat , antepartum 03/29/2016 11/23/2016 Spotting in first trimester 03/22/2016 11/23/2016 Overview: 03/22/2016Pt was seen at [facility] 03/16/2016 for brown spotting and pelvic pain. SHe denies any bleeding or pain since 03/18/2016. An ultrasound was done at [facility] and revealed an IUP @ 8w5d. [facility] E.R. report in [address] Aviles's review. TKRN History of 3 sections 03/22/2016 11/23/2016 Overview: 03/22/2016Pt had 3 previous C sections. She desires a repeat C section by Dr Cuevas. Patient desires PPTL.TKRN Family history of cleft lip and palate 03/22/2016 11/23/2016 Overview: 03/22/2016The FOB has a son that was born with cleft lip and palate. Patient declines nuchal ultrasound. TKRN documented as of this encounter (statuses as of 09/06/2023) [facility]08-30-2021 History of Past illness Narrative* Problem Noted Date Diagnosed Date Resolved Date Plica of knee, right 02/20/2021 021 Medication side effect 03/12/201804/24 Abnormal finding on antenata l screening of mother 05/15/2016 11/23/2016 Overview: May 15, 2016 On sequential screen risk of Trisomy 21 is 1:190. I d/w her on phone options, will let us know how she would like to proceed. Temitope Acuna MD Rubella non-immune status, antepartum 04/17/2016 11/23/2016 UTI (urinary tract infection ) in , antepartum 04/02/2016 11/23/2016 Overview: April 02, 2016 ordered natasha Aviles MD Normal repeat , antepartum 03/29/2016 11/23/2016 Spotting in first trimester 03/22/2016 11/23/2016 Overview: 03/22/2016Pt was seen at [facility] 03/16/2016 for brown spotting and pelvic pain. SHe denies any bleeding or pain since 03/18/2016. An ultrasound was done at [facility] and revealed an IUP @ 8w5d. [facility] E.R. report in suite [address] Aviles's review. TKRN History of 3 sections 03/22/2016 11/23/2016 Overview: 03/22/2016Pt had 3 previous C sections. She desires a repeat C section by Dr Cuevas. Patient desires PPTL.TKRN Family history of cleft lip and palate 03/22/2016 11/23/2016 Overview: 03/22/2016The FOB has a son that was born with cleft lip and palate. Patient declines nuchal ultrasound. TKRN documented as of this encounter (statuses as of 09/09/2023) [facility]08-30-2021 History of Past illness Narrative* Problem Noted Date Diagnosed Date Resolved Date Plica of knee, right 02/20/2021 021 Medication side effect 03/12/201804/24 Abnormal finding on antenata l screening of mother 05/15/2016 11/23/2016 Overview: May 15, 2016 On sequential screen risk of Trisomy 21 is 1:190. I d/w her on phone options, will let us know how she would like to proceed. Temitope Acuna MD Rubella non-immune status, antepartum 04/17/2016 11/23/2016 UTI (urinary tract infection ) in , antepartum 04/02/2016 11/23/2016 Overview: April 02, 2016 ordered natasha Aviles MD Normal repeat , antepartum 03/29/2016 11/23/2016 Spotting in first trimester 03/22/2016 11/23/2016 Overview: 03/22/2016Pt was seen at [facility] 03/16/2016 for brown spotting and pelvic pain. SHe denies any bleeding or pain since 03/18/2016. An ultrasound was done at [facility] and revealed an IUP @ 8w5d. [facility] E.R. report in [address] Aviles's review. TKRN History of 3 sections 03/22/2016 11/23/2016 Overview: 03/22/2016Pt had 3 previous C sections. She desires a repeat C section by Dr Cuevas. Patient desires PPTL.TKRN Family history of cleft lip and palate 03/22/2016 11/23/2016 Overview: 03/22/2016The FOB has a son that was born with cleft lip and palate. Patient declines nuchal ultrasound. TKRN documented as of this encounter (statuses as of 09/11/2023) [facility]08-30-2021 History of Past illness Narrative* Problem Noted Date Diagnosed Date Resolved Date Plica of knee, right 02/20/2021 021 Medication side effect 03/12/201804/24 Abnormal finding on antenata l screening of mother 05/15/2016 11/23/2016 Overview: May 15, 2016 On sequential screen risk of Trisomy 21 is 1:190. I d/w her on phone options, will let us know how she would like to proceed. Temitope Acuna MD Rubella non-immune status, antepartum 04/17/2016 11/23/2016 UTI (urinary tract infection ) in , antepartum 04/02/2016 11/23/2016 Overview: April 02, 2016 ordered natasha Aviles MD Normal repeat , antepartum 03/29/2016 11/23/2016 Spotting in first trimester 03/22/2016 11/23/2016 Overview: 03/22/2016Pt was seen at [facility] 03/16/2016 for brown spotting and pelvic pain. SHe denies any bleeding or pain since 03/18/2016. An ultrasound was done at [facility] and revealed an IUP @ 8w5d. [facility] E[facility] report in suite [address] Aviles's review. TKRN History of 3 sections 03/22/2016 11/23/2016 Overview: 03/22/2016Pt had 3 previous C sections. She desires a repeat C section by Dr Cuevas. Patient desires PPTL.TKRN Family history of cleft lip and palate 03/22/2016 11/23/2016 Overview: 03/22/2016The FOB has a son that was born with cleft lip and palate. Patient declines nuchal ultrasound. TKRN documented as of this encounter (statuses as of 09/17/2023) [facility]08-30-2021 History of Past illness Narrative* Problem Noted Date Diagnosed Date Resolved Date Plica of knee, right 02/20/2021 021 Medication side effect 03/12/201804/24 Abnormal finding on antenata l screening of mother 05/15/2016 11/23/2016 Overview: May 15, 2016 On sequential screen risk of Trisomy 21 is 1:190. I d/w her on phone options, will let us know how she would like to proceed. Temitope Acuna MD Rubella non-immune status, antepartum 04/17/2016 11/23/2016 UTI (urinary tract infection ) in , antepartum 04/02/2016 11/23/2016 Overview: April 02, 2016 ordered natasha Aviles MD Normal repeat , antepartum 03/29/2016 11/23/2016 Spotting in first trimester 03/22/2016 11/23/2016 Overview: 03/22/2016Pt was seen at [facility] 03/16/2016 for brown spotting and pelvic pain. SHe denies any bleeding or pain since 03/18/2016. An ultrasound was done at [facility] and revealed an IUP @ 8w5d. [facility] E.R. report in suite [address] Aviles's review. TKRN History of 3 sections 03/22/2016 11/23/2016 Overview: 03/22/2016Pt had 3 previous C sections. She desires a repeat C section by Dr Cuevas. Patient desires PPTL.TKRN Family history of cleft lip and palate 03/22/2016 11/23/2016 Overview: 03/22/2016The FOB has a son that was born with cleft lip and palate. Patient declines nuchal ultrasound. TKRN documented as of this encounter (statuses as of 09/27/2023) [facility]08-30-2021 History of Past illness Narrative* Problem Noted Date Diagnosed Date Resolved Date Plica of knee, right 02/20/2021 021 Medication side effect 03/12/201804/24 Abnormal finding on antenata l screening of mother 05/15/2016 11/23/2016 Overview: May 15, 2016 On sequential screen risk of Trisomy 21 is 1:190. I d/w her on phone options, will let us know how she would like to proceed. Temitope Acuna MD Rubella non-immune status, antepartum 04/17/2016 11/23/2016 UTI (urinary tract infection ) in , antepartum 04/02/2016 11/23/2016 Overview: April 02, 2016 ordered natasha Aviles MD Normal repeat , antepartum 03/29/2016 11/23/2016 Spotting in first trimester 03/22/2016 11/23/2016 Overview: 03/22/2016Pt was seen at [facility] 03/16/2016 for brown spotting and pelvic pain. SHe denies any bleeding or pain since 03/18/2016. An ultrasound was done at [facility] and revealed an IUP @ 8w5d. [facility] E[facility] report in suite [address] Aviles's review. TKRN History of 3 sections 03/22/2016 11/23/2016 Overview: 03/22/2016Pt had 3 previous C sections. She desires a repeat C section by Dr Cuevas. Patient desires PPTL.TKRN Family history of cleft lip and palate 03/22/2016 11/23/2016 Overview: 03/22/2016The FOB has a son that was born with cleft lip and palate. Patient declines nuchal ultrasound. TKRN documented as of this encounter (statuses as of 09/30/2023) [facility]08[facility]30-2021 History of Past illness Narrative* Problem Noted Date Diagnosed Date Resolved Date Plica of knee, right 02/20/2021 021 Medication side effect 03/12/201804/24 Abnormal finding on antenata l screening of mother 05/15/2016 11/23/2016 Overview: May 15, 2016 On sequential screen risk of Trisomy 21 is 1:190. I d/w her on phone options, will let us know how she would like to proceed. Temitope Acuna MD Rubella non-immune status, antepartum 04/17/2016 11/23/2016 UTI (urinary tract infection ) in , antepartum 04/02/2016 11/23/2016 Overview: April 02, 2016 ordered natasha Aviles MD Normal repeat , antepartum 03/29/2016 11/23/2016 Spotting in first trimester 03/22/2016 11/23/2016 Overview: 03/22/2016Pt was seen at [facility] 03/16/2016 for brown spotting and pelvic pain. SHe denies any bleeding or pain since 03/18/2016. An ultrasound was done at [facility] and revealed an IUP @ 8w5d. [facility] E.R. report in suite [address] Aviles's review. TKRN History of 3 sections 03/22/2016 11/23/2016 Overview: 03/22/2016Pt had 3 previous C sections. She desires a repeat C section by Dr Cuevas. Patient desires PPTL.TKRN Family history of cleft lip and palate 03/22/2016 11/23/2016 Overview: 03/22/2016The FOB has a son that was born with cleft lip and palate. Patient declines nuchal ultrasound. TKRN documented as of this encounter (statuses as of 10/08/2023) [facility]03-18-2021 History of Present illness Narrative* Mela Zapata (Rt), Tech - 09/08/2020 2:20 PM EDT Radiology Service Progress Note PATIENT NAME: Yamil Ng DATE OF SERVICE: September 08, 2020 TIME: 2:12 PM PATIENT IDENTITY VERIFICATION COMPLETED USING TWO (2) IDENTIFIERS: Name and Date of confirmedby patient verbally. FALL SCREENING: Has the patient had 2 falls in the last year or 1 fall with injury or currently using an Ambulatory Assistive Device (Walker, Cane, Wheelchair, Crutches, etc.)? No PATIENT GENDER DATA: Female. status: : No status: NO. PATIENT RELEVANT IMPLANT DATA REVIEWED: Yes RADIOLOGY DEPARTMENT: General X-ray: Exam(s) Completed: Lower Extremity X- Ray(s): Knee, AP / Lat / Tunne / Merchant Right and Wt. Bearing: PERIPHERAL IV DATA: Not applicable SIGNED BY: RT Adelia September 08, 2020 2:12 PM [facility] Srinivas Simon [facility] September 24, 2023 2:15pm Note Date/Time September 24, 2023 2:15 pm [facility] Medical Records Department [address] [place] [address] Counseling Note - Pharmacy 09/24/23 1414 MR#: [id number] Acct: [id number] Name: YAMIL NG Rep #:[id number] : 1985 38 From: Srinivas Simon PCP: Dr. Skip Ignacio MD Status :ADM [facility] has performed discharge medication reconciliation and counseling for this patient. The patient's discharge medication list was reviewed for discrepancies and discrepancies were resolved. The patient was counseled on the following discharge medications and changes in medications for homegoing were reviewed. The Reason for Use, instructions for use, and potential side effects were reviewed for all new medications. The patient's questions regarding all of their medications were answered. 1. Oxycodone 5 mg PO Q4H PRN pain 4-10/10 The patient was able to verbally demonstrate an understanding of their dischargemedications. Medications at Discharge Home Medications levetiracetam 500 mg tablet 1,000 mg PO BID 08/25/21 oxycodone 5 mg tablet 5 mg PO Q4H PRN PRN Pain Score 4-10 4 days #10 tabs 09/24/23 09/24/23 1415 <Electronically signed by Srinivas montalvo> Date _ Srinivas Garciaigner Signature (if applicable): Date CC: ~ Signed [facility] Work Phone: Discharge summary Author Olu Bacon [facility] September 24, 2023 1:33pm Note Date/Time September 24, 2023 1:28 pm [facility] Medical Records Department [address] [place] [address] Instructions for Home/Discharge Instructions 09/24/23 1324 MR#: [id number] Acct: [id number] Name: YAMIL NG Rep #:[id number] : 1985 38 From: Olu Bacon MD PCP: Dr. Skip Ignacio MD Status :ADM IN Discharge Instructions Diet Discharge Diet: No restrictions Activity Discharge Activity: May Shower May resume sexual activity in: - (when cleared by physician) Weight Bearing Status: Weight bearing as tolerated Dressing / Incision Call your doctor if your incision/area has: Continuous Slow Oozing Call your doctor if you observe: Fever of 101 or Higher, Change in Color, Inability to urinate, Using more than 1 pad per hour, Shortness of breath, Fainting spells, Prolonged hiccupping and Uncontrolled pain Follow Up Care Please Follow Up With: Temitope Acuna When: 1 week Test Results: Test results from this visit will be discussed in further detail at your follow- up appointment, if applicable. Discharge Plan Admission Admit Date/Time: 09/23/23 11:38 Primary Reason for Your Visit: Vaginal cuff surgery Attending Provider: Janay Zeng Primary Care Provider: Skip Ignacio Discharge Orders/Prescriptions Prescriptions: New oxycodone 5 mg Tablet 5 mg PO Q4H PRN PRN (Reason: Pain Score 4-10) 4 Days Qty: 10 0RF Rx Instructions: as needed for pain No Action levetiracetam 500 mg tablet 1,000 mg PO BID Referrals / Follow Up: Care Physician,No Primary [Non-Staff] - Disposition Disposition (needs filled in before D/C Order can be placed): Home, Self Care 09/24/23 0543<Electronically signed by Olu Bacon MD>Olu Bacon MD CC: Dr. Skip Ignacio MD ~ Signed [facility] Work Phone: evaluation noteNo assessment information available [facility] Work Phone: evaluation note* Diagnosis Foot pain, right- Primary Pain in limb [facility] Diagnosis Seizure disorder (HCC) Unspecified epilepsy without mention of intractable epilepsy [facility] Diagnosis Sore throat- Primary Acute pharyngitis [facility]* Diagnosis Seizure disorder (HCC) Unspecified epilepsy without mention of intractable epilepsy [facility] Diagnosis Sore throat- Primary Acute pharyngitis Strep throat Streptococcal sore throat [facility] Diagnosis Acute pain of right knee- Primary [facility] Diagnosis Focal epilepsy (HCC)- Primary Localization-related (focal) (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, without mention of intractable epilepsy Seizure disorder (HCC) Unspecified epilepsy without mention of intractable epilepsy [facility] Diagnosis Encounter for medical examination to establish care- Primary Anemia, unspecified type Screening for hyperlipidemia Screening for lipoid disorders [facility] Diagnosis LGSIL on Pap smear of cervix- Primary [facility]* Diagnosis Anemia, unspecified type- Primary [facility] Diagnosis Encounter for gynecological examination (general) (routine) without abnormal findings- Primary Screening for cervical cancer Screening for malignant neoplasm of the cervix Encounter for screening for human papillomavirus (HPV) Special screening examination for human papillomavirus (HPV) Menorrhagia with irregular cycle Excessive or frequent menstruation [facility] Diagnosis Lightheadedness- Primary Dizziness and giddiness SOB (shortness of breath) Shortness of breath Iron deficiency anemia, unspecified iron deficiency anemia type documented [facility]* Diagnosis Iron deficiency anemia, unspecified iron deficiency anemia type- Primary documented [facility] Diagnosis 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agia- Primary [facility] Diagnosis 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agia- Primary [facility] Diagnosis 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agia- Primary [facility] Diagnosis 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agia- Primary documented [facility] Diagnosis 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agia- Primary documented [facility]* Diagnosis 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agia- Primary documented [facility]* Diagnosis 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agia- Primary documented [facility]* Diagnosis 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agia- Primary documented [facility]* Diagnosis Iron deficiency anemia due to chronic blood loss- Primary Iron deficiency anemia secondary to blood loss (chronic) Fatigue, unspecified type documented [facility] this [facility]* Diagnosis Abnormal uterine bleeding (AUB)- Primary documented [facility]* Diagnosis Sore throat- Primary Acute pharyngitis URI, acute Acute upper respiratory infections of unspecified site Pre-op evaluation- Primary Preoperative examination, unspecified Menorrhagia with irregular cycle Excessive or frequent menstruation Dysmenorrhea documented [facility] this [facility] Diagnosis Pre-op evaluation- Primary Preoperative examination, unspecified PONV (postoperative nausea and vomiting) Nausea with vomiting URI (obstructive sleep apnea) Obstructive sleep apnea (adult) (pediatric) 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, without mention of intractable epilepsy Gastroesophageal reflux disease, unspecified whether esophagitis present Menorrhagia with irregular cycle Excessive or frequent menstruation Dysmenorrhea documented [facility] this [facility]* Diagnosis Abnormal uterine bleeding (AUB)- Primary Dysmenorrhea Menorrhagia with irregular cycle Excessive or frequent menstruation Dysmenorrhea documented in this [facility]* Diagnosis Postop check- Primary Follow-up examination, following unspecified surgery [facility]* Diagnosis Partial symptomatic epilepsy with complex partial seizures, intractable, without status epilepticus (HCC)- Primary [facility]* Diagnosis Intractable migraine with aura without status migrainosus- Primary Migraine with aura, with intractable migraine, so stated, without mention of status migrainosus 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, without mention of intractable epilepsy Intractable headache, unspecified chronicity pattern, unspecified headache type Paresthesia of skin Disturbance of skin sensation Hypesthesia Disturbance of skin sensation Pulsatile tinnitus, right ear [facility]* Diagnosis Dysmenorrhea- Primary Menorrhagia with regular cycle Excessive or frequent menstruation Adenomyosis 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 [facility] Diagnosis Focal epilepsy (HCC)- Primary Localization-related (focal) (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, without mention of intractable epilepsy [facility]* Diagnosis Acute pain of right knee- Primary Adenomyosis Endometriosis of uterus Abnormal uterine bleeding (AUB) Dysmenorrhea Post endometrial ablation syndrome [facility]* Diagnosis Pre-op evaluation- Primary Preoperative examination, unspecified Gastroesophageal reflux disease, unspecified whether esophagitis present URI (obstructive sleep apnea) Obstructive sleep apnea (adult) (pediatric) Anxiety Anxiety state, unspecified PONV (postoperative nausea and vomiting) Nausea with vomiting 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, without mention of intractable epilepsy 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agia Adenomyosis Endometriosis of uterus Abnormal uterine bleeding (AUB) Dysmenorrhea Post endometrial ablation syndrome [facility] Diagnosis Acute pain of right knee- Primary Chondromalacia of right patella Chondromalacia of patella [facility] Diagnosis Postop check- Primary Follow-up examination, following unspecified surgery [facility] Diagnosis Postop check- Primary Follow-up examination, following unspecified surgery [facility]* Diagnosis Onset Date Resolution Status Abnormal vaginal bleeding ac estephania Abscess of female pelvis acu [facility] Work Phone: Evaluation note* Diagnosis Onset Date Resolution Status Abnormal vaginal bleeding ac estephania Abscess of female pelvis acu te Dehiscence of vaginal cuff a cute Post-operative state acute S/P hysterectomy acute [facility]* Diagnosis Malaise and fatigue- Primary Other malaise and fatigue Postop check Follow-up examination, following unspecified surgery [facility]* Diagnosis Foot pain, left- Primary Pain in limb documented in this encounter [facility] note* Diagnosis Postop check- Primary Follow-up examination, following unspecified surgery [facility]* Diagnosis Encounter for screening mammogram for malignant neoplasm of breast Other screening mammogram Family history of malignant neoplasm of breast documented [facility]* Diagnosis Adenomyosis- Primary Endometriosis of uterus Abnormal uterine bleeding (AUB) Dysmenorrhea Post endometrial ablation syndrome documented [facility]* Diagnosis Abnormal screening mammogram- Primary Abnormal mammogram, unspecified documented [facility]* Diagnosis Partial symptomatic epilepsy with complex partial seizures, intractable, without status epilepticus (HCC) 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, without mention of intractable epilepsy [facility]* Diagnosis Abnormal screening mammogram Abnormal mammogram, unspecified documented in this encounter [facility] note* Diagnosis Abnormal screening mammogram Abnormal mammogram, unspecified [facility]* Diagnosis Epigastric pain- Primary Abdominal pain, epigastric Nausea Nausea alone Psoriasis of scalp Other psoriasis Atopic dermatitis of scalp documented in this encounter [facility] note* Diagnosis Epigastric pain- Primary Abdominal pain, epigastric Nausea Nausea alone Liver lesion Other specified disorders of liver Skin tags, multiple acquired S/P cryotherapy of skin lesion documented in this encounter [facility] note* Diagnosis Epigastric pain Abdominal pain, epigastric Nausea Nausea alone documented in this encounter [facility] note* Diagnosis 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, without mention of intractable epilepsy [facility]* Diagnosis Acute pain of right knee- Primary Chondromalacia of right patella Chondromalacia of patella Tear of medial meniscus of right knee, current, unspecified tear type, initial encounter [facility]* Diagnosis 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, without mention of intractable epilepsy [facility]* Diagnosis Pre-operative examination- Primary Preoperative examination, unspecified Ganglion cyst of wrist, right URI (obstructive sleep apnea) Obstructive sleep apnea (adult) (pediatric) 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, without mention of intractable epilepsy Iron deficiency anemia, unspecified iron deficiency anemia type Mild episode of recurrent major depressive disorder (HCC) Preop examination- Primary Preoperative examination, unspecified Acute pain of right knee 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, without mention of intractable epilepsy URI (obstructive sleep apnea) Obstructive sleep apnea (adult) (pediatric) Iron deficiency anemia, unspecified iron deficiency anemia type Pre-op evaluation- Primary Preoperative examination, unspecified PONV (postoperative nausea and vomiting) Nausea with vomiting URI (obstructive sleep apnea) Obstructive sleep apnea (adult) (pediatric) 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, without mention of intractable epilepsy Gastroesophageal reflux disease, unspecified whether esophagitis present Pre-op evaluation- Primary Preoperative examination, unspecified Gastroesophageal reflux disease, unspecified whether esophagitis present URI (obstructive sleep apnea) Obstructive sleep apnea (adult) (pediatric) Anxiety Anxiety state, unspecified PONV (postoperative nausea and vomiting) Nausea with vomiting 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, without mention of intractable epilepsy 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agia Acute pain of right knee Chondromalacia of right patella Chondromalacia of patella Tear of medial meniscus of right knee, current, unspecified tear type, initial encounter documented 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, without mention of intractable epilepsy Iron deficiency anemia, unspecified iron deficiency anemia type Mild episode of recurrent major depressive disorder (HCC) Preop examination- Primary Preoperative examination, unspecified Acute pain of right knee 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, without mention of intractable epilepsy URI (obstructive sleep apnea) Obstructive sleep apnea (adult) (pediatric) Iron deficiency anemia, unspecified iron deficiency anemia type Pre-op evaluation- Primary Preoperative examination, unspecified PONV (postoperative nausea and vomiting) Nausea with vomiting URI (obstructive sleep apnea) Obstructive sleep apnea (adult) (pediatric) 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, without mention of intractable epilepsy Gastroesophageal reflux disease, unspecified whether esophagitis present Pre-op evaluation- Primary Preoperative examination, unspecified Gastroesophageal reflux disease, unspecified whether esophagitis present URI (obstructive sleep apnea) Obstructive sleep apnea (adult) (pediatric) Anxiety Anxiety state, unspecified PONV (postoperative nausea and vomiting) Nausea with vomiting 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, without mention of intractable epilepsy 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agia Epigastric pain Abdominal pain, epigastric [facility] Diagnosis Pre-operative examination- Primary Preoperative examination, unspecified Ganglion cyst of wrist, right URI (obstructive sleep apnea) Obstructive sleep apnea (adult) (pediatric) 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, without mention of intractable epilepsy Iron deficiency anemia, unspecified iron deficiency anemia type Mild episode of recurrent major depressive disorder (HCC) Preop examination- Primary Preoperative examination, unspecified Acute pain of right knee 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, without mention of intractable epilepsy URI (obstructive sleep apnea) Obstructive sleep apnea (adult) (pediatric) Iron deficiency anemia, unspecified iron deficiency anemia type Pre-op evaluation- Primary Preoperative examination, unspecified PONV (postoperative nausea and vomiting) Nausea with vomiting URI (obstructive sleep apnea) Obstructive sleep apnea (adult) (pediatric) 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, without mention of intractable epilepsy Gastroesophageal reflux disease, unspecified whether esophagitis present Pre-op evaluation- Primary Preoperative examination, unspecified Gastroesophageal reflux disease, unspecified whether esophagitis present URI (obstructive sleep apnea) Obstructive sleep apnea (adult) (pediatric) Anxiety Anxiety state, unspecified PONV (postoperative nausea and vomiting) Nausea with vomiting 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, without mention of intractable epilepsy 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agia Liver lesion Other specified disorders of liver [facility]* Diagnosis Pre-operative examination- Primary Preoperative examination, unspecified Ganglion cyst of wrist, right URI (obstructive sleep apnea) Obstructive sleep apnea (adult) (pediatric) 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, without mention of intractable epilepsy Iron deficiency anemia, unspecified iron deficiency anemia type Mild episode of recurrent major depressive disorder (HCC) Preop examination- Primary Preoperative examination, unspecified Acute pain of right knee 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, without mention of intractable epilepsy URI (obstructive sleep apnea) Obstructive sleep apnea (adult) (pediatric) Iron deficiency anemia, unspecified iron deficiency anemia type Pre-op evaluation- Primary Preoperative examination, unspecified PONV (postoperative nausea and vomiting) Nausea with vomiting URI (obstructive sleep apnea) Obstructive sleep apnea (adult) (pediatric) 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, without mention of intractable epilepsy Gastroesophageal reflux disease, unspecified whether esophagitis present Pre-op evaluation- Primary Preoperative examination, unspecified Gastroesophageal reflux disease, unspecified whether esophagitis present URI (obstructive sleep apnea) Obstructive sleep apnea (adult) (pediatric) Anxiety Anxiety state, unspecified PONV (postoperative nausea and vomiting) Nausea with vomiting 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, without mention of intractable epilepsy 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agia Acute pain of right knee- Primary Chondromalacia of right patella Chondromalacia of patella [facility] Diagnosis Pre-operative examination- Primary Preoperative examination, unspecified Ganglion cyst of wrist, right URI (obstructive sleep apnea) Obstructive sleep apnea (adult) (pediatric) 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, without mention of intractable epilepsy Iron deficiency anemia, unspecified iron deficiency anemia type Mild episode of recurrent major depressive disorder (HCC) Preop examination- Primary Preoperative examination, unspecified Acute pain of right knee 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, without mention of intractable epilepsy URI (obstructive sleep apnea) Obstructive sleep apnea (adult) (pediatric) Iron deficiency anemia, unspecified iron deficiency anemia type Pre-op evaluation- Primary Preoperative examination, unspecified PONV (postoperative nausea and vomiting) Nausea with vomiting URI (obstructive sleep apnea) Obstructive sleep apnea (adult) (pediatric) 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, without mention of intractable epilepsy Gastroesophageal reflux disease, unspecified whether esophagitis present Pre-op evaluation- Primary Preoperative examination, unspecified Gastroesophageal reflux disease, unspecified whether esophagitis present URI (obstructive sleep apnea) Obstructive sleep apnea (adult) (pediatric) Anxiety Anxiety state, unspecified PONV (postoperative nausea and vomiting) Nausea with vomiting 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, without mention of intractable epilepsy 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agia Epigastric pain Abdominal pain, epigastric [facility]* Diagnosis Pre-operative examination- Primary Preoperative examination, unspecified Ganglion cyst of wrist, right URI (obstructive sleep apnea) Obstructive sleep apnea (adult) (pediatric) 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, without mention of intractable epilepsy Iron deficiency anemia, unspecified iron deficiency anemia type Mild episode of recurrent major depressive disorder (HCC) Preop examination- Primary Preoperative examination, unspecified Acute pain of right knee 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, without mention of intractable epilepsy URI (obstructive sleep apnea) Obstructive sleep apnea (adult) (pediatric) Iron deficiency anemia, unspecified iron deficiency anemia type Acute pain of right knee Pre-op evaluation- Primary Preoperative examination, unspecified PONV (postoperative nausea and vomiting) Nausea with vomiting URI (obstructive sleep apnea) Obstructive sleep apnea (adult) (pediatric) 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, without mention of intractable epilepsy Gastroesophageal reflux disease, unspecified whether esophagitis present Pre-op evaluation- Primary Preoperative examination, unspecified Gastroesophageal reflux disease, unspecified whether esophagitis present URI (obstructive sleep apnea) Obstructive sleep apnea (adult) (pediatric) Anxiety Anxiety state, unspecified PONV (postoperative nausea and vomiting) Nausea with vomiting 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, without mention of intractable epilepsy 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agia [facility] Pre-operative examination- Primary Preoperative examination, unspecified Ganglion cyst of wrist, right URI (obstructive sleep apnea) Obstructive sleep apnea (adult) (pediatric) 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, without mention of intractable epilepsy Iron deficiency anemia, unspecified iron deficiency anemia type Mild episode of recurrent major depressive disorder (HCC) Preop examination- Primary Preoperative examination, unspecified Acute pain of right knee 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, without mention of intractable epilepsy URI (obstructive sleep apnea) Obstructive sleep apnea (adult) (pediatric) Iron deficiency anemia, unspecified iron deficiency anemia type Foot pain, right Pain in limb Pre-op evaluation- Primary Preoperative examination, unspecified PONV (postoperative nausea and vomiting) Nausea with vomiting URI (obstructive sleep apnea) Obstructive sleep apnea (adult) (pediatric) 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, without mention of intractable epilepsy Gastroesophageal reflux disease, unspecified whether esophagitis present Pre-op evaluation- Primary Preoperative examination, unspecified Gastroesophageal reflux disease, unspecified whether esophagitis present URI (obstructive sleep apnea) Obstructive sleep apnea (adult) (pediatric) Anxiety Anxiety state, unspecified PONV (postoperative nausea and vomiting) Nausea with vomiting 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, without mention of intractable epilepsy 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agia documented in this encounter [facility] note* Diagnosis Pre-operative examination- Primary Preoperative examination, unspecified Ganglion cyst of wrist, right URI (obstructive sleep apnea) Obstructive sleep apnea (adult) (pediatric) 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, without mention of intractable epilepsy Iron deficiency anemia, unspecified iron deficiency anemia type Mild episode of recurrent major depressive disorder (HCC) Acute pain of right knee Preop examination- Primary Preoperative examination, unspecified Acute pain of right knee 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, without mention of intractable epilepsy URI (obstructive sleep apnea) Obstructive sleep apnea (adult) (pediatric) Iron deficiency anemia, unspecified iron deficiency anemia type Pre-op evaluation- Primary Preoperative examination, unspecified PONV (postoperative nausea and vomiting) Nausea with vomiting URI (obstructive sleep apnea) Obstructive sleep apnea (adult) (pediatric) 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, without mention of intractable epilepsy Gastroesophageal reflux disease, unspecified whether esophagitis present Pre-op evaluation- Primary Preoperative examination, unspecified Gastroesophageal reflux disease, unspecified whether esophagitis present URI (obstructive sleep apnea) Obstructive sleep apnea (adult) (pediatric) Anxiety Anxiety state, unspecified PONV (postoperative nausea and vomiting) Nausea with vomiting 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, without mention of intractable epilepsy 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agia documented in this encounter [facility] note* Diagnosis Pre-operative examination- Primary Preoperative examination, unspecified Ganglion cyst of wrist, right URI (obstructive sleep apnea) Obstructive sleep apnea (adult) (pediatric) 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, without mention of intractable epilepsy Iron deficiency anemia, unspecified iron deficiency anemia type Mild episode of recurrent major depressive disorder (HCC) Preop examination- Primary Preoperative examination, unspecified Acute pain of right knee 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, without mention of intractable epilepsy URI (obstructive sleep apnea) Obstructive sleep apnea (adult) (pediatric) Iron deficiency anemia, unspecified iron deficiency anemia type Pre-op evaluation- Primary Preoperative examination, unspecified PONV (postoperative nausea and vomiting) Nausea with vomiting URI (obstructive sleep apnea) Obstructive sleep apnea (adult) (pediatric) 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, without mention of intractable epilepsy Gastroesophageal reflux disease, unspecified whether esophagitis present Pre-op evaluation- Primary Preoperative examination, unspecified Gastroesophageal reflux disease, unspecified whether esophagitis present URI (obstructive sleep apnea) Obstructive sleep apnea (adult) (pediatric) Anxiety Anxiety state, unspecified PONV (postoperative nausea and vomiting) Nausea with vomiting 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, without mention of intractable epilepsy 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agia Pneumonia of left lower lobe due to infectious organism- Primary Acute cough Acute cough 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, without mention of intractable epilepsy Iron deficiency anemia, unspecified iron deficiency anemia type Mild episode of recurrent major depressive disorder (HCC) Preop examination- Primary Preoperative examination, unspecified Acute pain of right knee 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, without mention of intractable epilepsy URI (obstructive sleep apnea) Obstructive sleep apnea (adult) (pediatric) Iron deficiency anemia, unspecified iron deficiency anemia type Pre-op evaluation- Primary Preoperative examination, unspecified PONV (postoperative nausea and vomiting) Nausea with vomiting URI (obstructive sleep apnea) Obstructive sleep apnea (adult) (pediatric) 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, without mention of intractable epilepsy Gastroesophageal reflux disease, unspecified whether esophagitis present Pre-op evaluation- Primary Preoperative examination, unspecified Gastroesophageal reflux disease, unspecified whether esophagitis present URI (obstructive sleep apnea) Obstructive sleep apnea (adult) (pediatric) Anxiety Anxiety state, unspecified PONV (postoperative nausea and vomiting) Nausea with vomiting 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, without mention of intractable epilepsy Iron deficiency anemia, unspecified iron deficiency anemia type Mild episode of recurrent major depressive disorder (HCC) Preop examination- Primary Preoperative examination, unspecified Acute pain of right knee 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, without mention of intractable epilepsy URI (obstructive sleep apnea) Obstructive sleep apnea (adult) (pediatric) Iron deficiency anemia, unspecified iron deficiency anemia type Pre-op evaluation- Primary Preoperative examination, unspecified PONV (postoperative nausea and vomiting) Nausea with vomiting URI (obstructive sleep apnea) Obstructive sleep apnea (adult) (pediatric) 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, without mention of intractable epilepsy Gastroesophageal reflux disease, unspecified whether esophagitis present Pre-op evaluation- Primary Preoperative examination, unspecified Gastroesophageal reflux disease, unspecified whether esophagitis present URI (obstructive sleep apnea) Obstructive sleep apnea (adult) (pediatric) Anxiety Anxiety state, unspecified PONV (postoperative nausea and vomiting) Nausea with vomiting 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, without mention of intractable epilepsy 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agia Acute cough- Primary Acute cough [facility] Diagnosis Pre-operative examination- Primary Preoperative examination, unspecified Ganglion cyst of wrist, right URI (obstructive sleep apnea) Obstructive sleep apnea (adult) (pediatric) 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, without mention of intractable epilepsy Iron deficiency anemia, unspecified iron deficiency anemia type Mild episode of recurrent major depressive disorder (HCC) Preop examination- Primary Preoperative examination, unspecified Acute pain of right knee 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, without mention of intractable epilepsy URI (obstructive sleep apnea) Obstructive sleep apnea (adult) (pediatric) Iron deficiency anemia, unspecified iron deficiency anemia type Pre-op evaluation- Primary Preoperative examination, unspecified PONV (postoperative nausea and vomiting) Nausea with vomiting URI (obstructive sleep apnea) Obstructive sleep apnea (adult) (pediatric) 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, without mention of intractable epilepsy Gastroesophageal reflux disease, unspecified whether esophagitis present Pre-op evaluation- Primary Preoperative examination, unspecified Gastroesophageal reflux disease, unspecified whether esophagitis present URI (obstructive sleep apnea) Obstructive sleep apnea (adult) (pediatric) Anxiety Anxiety state, unspecified PONV (postoperative nausea and vomiting) Nausea with vomiting 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, without mention of intractable epilepsy Iron deficiency anemia, unspecified iron deficiency anemia type Mild episode of recurrent major depressive disorder (HCC) Preop examination- Primary Preoperative examination, unspecified Acute pain of right knee 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, without mention of intractable epilepsy URI (obstructive sleep apnea) Obstructive sleep apnea (adult) (pediatric) Iron deficiency anemia, unspecified iron deficiency anemia type Pre-op evaluation- Primary Preoperative examination, unspecified PONV (postoperative nausea and vomiting) Nausea with vomiting URI (obstructive sleep apnea) Obstructive sleep apnea (adult) (pediatric) 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, without mention of intractable epilepsy Gastroesophageal reflux disease, unspecified whether esophagitis present Pre-op evaluation- Primary Preoperative examination, unspecified Gastroesophageal reflux disease, unspecified whether esophagitis present URI (obstructive sleep apnea) Obstructive sleep apnea (adult) (pediatric) Anxiety Anxiety state, unspecified PONV (postoperative nausea and vomiting) Nausea with vomiting 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, without mention of intractable epilepsy 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agia Migraine without aura and with status migrainosus, not intractable- Primary Migraine without aura, without mention of intractable migraine with status migrainosus Nonintractable headache, unspecified chronicity pattern, unspecified headache type [facility] Diagnosis Pre-operative examination- Primary Preoperative examination, unspecified Ganglion cyst of wrist, right URI (obstructive sleep apnea) Obstructive sleep apnea (adult) (pediatric) 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, without mention of intractable epilepsy Iron deficiency anemia, unspecified iron deficiency anemia type Mild episode of recurrent major depressive disorder (HCC) Preop examination- Primary Preoperative examination, unspecified Acute pain of right knee 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, without mention of intractable epilepsy URI (obstructive sleep apnea) Obstructive sleep apnea (adult) (pediatric) Iron deficiency anemia, unspecified iron deficiency anemia type Pre-op evaluation- Primary Preoperative examination, unspecified PONV (postoperative nausea and vomiting) Nausea with vomiting URI (obstructive sleep apnea) Obstructive sleep apnea (adult) (pediatric) 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, without mention of intractable epilepsy Gastroesophageal reflux disease, unspecified whether esophagitis present Pre-op evaluation- Primary Preoperative examination, unspecified Gastroesophageal reflux disease, unspecified whether esophagitis present URI (obstructive sleep apnea) Obstructive sleep apnea (adult) (pediatric) Anxiety Anxiety state, unspecified PONV (postoperative nausea and vomiting) Nausea with vomiting 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, without mention of intractable epilepsy 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agia Migraine without aura and with status migrainosus, not intractable- Primary Migraine without aura, without mention of intractable migraine with status migrainosus [facility] Diagnosis Pre-operative examination- Primary Preoperative examination, unspecified Ganglion cyst of wrist, right URI (obstructive sleep apnea) Obstructive sleep apnea (adult) (pediatric) 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, without mention of intractable epilepsy Iron deficiency anemia, unspecified iron deficiency anemia type Mild episode of recurrent major depressive disorder (HCC) Preop examination- Primary Preoperative examination, unspecified Acute pain of right knee 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, without mention of intractable epilepsy URI (obstructive sleep apnea) Obstructive sleep apnea (adult) (pediatric) Iron deficiency anemia, unspecified iron deficiency anemia type Pre-op evaluation- Primary Preoperative examination, unspecified PONV (postoperative nausea and vomiting) Nausea with vomiting URI (obstructive sleep apnea) Obstructive sleep apnea (adult) (pediatric) 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, without mention of intractable epilepsy Gastroesophageal reflux disease, unspecified whether esophagitis present Pre-op evaluation- Primary Preoperative examination, unspecified Gastroesophageal reflux disease, unspecified whether esophagitis present URI (obstructive sleep apnea) Obstructive sleep apnea (adult) (pediatric) Anxiety Anxiety state, unspecified PONV (postoperative nausea and vomiting) Nausea with vomiting 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, without mention of intractable epilepsy 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agia Visit for suture removal- Primary Encounter for removal of sutures Laceration of right middle finger without foreign body with damage to nail, subsequent encounter [facility] Diagnosis Pre-operative examination- Primary Preoperative examination, unspecified Ganglion cyst of wrist, right URI (obstructive sleep apnea) Obstructive sleep apnea (adult) (pediatric) 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, without mention of intractable epilepsy Iron deficiency anemia, unspecified iron deficiency anemia type Mild episode of recurrent major depressive disorder (HCC) Preop examination- Primary Preoperative examination, unspecified Acute pain of right knee 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, without mention of intractable epilepsy URI (obstructive sleep apnea) Obstructive sleep apnea (adult) (pediatric) Iron deficiency anemia, unspecified iron deficiency anemia type Pre-op evaluation- Primary Preoperative examination, unspecified PONV (postoperative nausea and vomiting) Nausea with vomiting URI (obstructive sleep apnea) Obstructive sleep apnea (adult) (pediatric) 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, without mention of intractable epilepsy Gastroesophageal reflux disease, unspecified whether esophagitis present Pre-op evaluation- Primary Preoperative examination, unspecified Gastroesophageal reflux disease, unspecified whether esophagitis present URI (obstructive sleep apnea) Obstructive sleep apnea (adult) (pediatric) Anxiety Anxiety state, unspecified PONV (postoperative nausea and vomiting) Nausea with vomiting 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, without mention of intractable epilepsy 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agia Tinea corporis- Primary Dermatophytosis of the body documented [facility] Diagnosis Pre-operative examination- Primary Preoperative examination, unspecified Ganglion cyst of wrist, right URI (obstructive sleep apnea) Obstructive sleep apnea (adult) (pediatric) 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, without mention of intractable epilepsy Iron deficiency anemia, unspecified iron deficiency anemia type Mild episode of recurrent major depressive disorder (HCC) Preop examination- Primary Preoperative examination, unspecified Acute pain of right knee 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, without mention of intractable epilepsy URI (obstructive sleep apnea) Obstructive sleep apnea (adult) (pediatric) Iron deficiency anemia, unspecified iron deficiency anemia type Pre-op evaluation- Primary Preoperative examination, unspecified PONV (postoperative nausea and vomiting) Nausea with vomiting URI (obstructive sleep apnea) Obstructive sleep apnea (adult) (pediatric) 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, without mention of intractable epilepsy Gastroesophageal reflux disease, unspecified whether esophagitis present Pre-op evaluation- Primary Preoperative examination, unspecified Gastroesophageal reflux disease, unspecified whether esophagitis present URI (obstructive sleep apnea) Obstructive sleep apnea (adult) (pediatric) Anxiety Anxiety state, unspecified PONV (postoperative nausea and vomiting) Nausea with vomiting 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, without mention of intractable epilepsy 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agia Annual physical exam- Primary [facility] 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, without mention of intractable epilepsy Gastroesophageal reflux disease, unspecified whether esophagitis present Migraine with aura, not intractable, without status migrainosus [facility] Pre-operative examination- Primary Preoperative examination, unspecified Ganglion cyst of wrist, right URI (obstructive sleep apnea) Obstructive sleep apnea (adult) (pediatric) 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, without mention of intractable epilepsy Iron deficiency anemia, unspecified iron deficiency anemia type Mild episode of recurrent major depressive disorder (HCC) Preop examination- Primary Preoperative examination, unspecified Acute pain of right knee 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, without mention of intractable epilepsy URI (obstructive sleep apnea) Obstructive sleep apnea (adult) (pediatric) Iron deficiency anemia, unspecified iron deficiency anemia type Pre-op evaluation- Primary Preoperative examination, unspecified PONV (postoperative nausea and vomiting) Nausea with vomiting URI (obstructive sleep apnea) Obstructive sleep apnea (adult) (pediatric) 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, without mention of intractable epilepsy Gastroesophageal reflux disease, unspecified whether esophagitis present Pre-op evaluation- Primary Preoperative examination, unspecified Gastroesophageal reflux disease, unspecified whether esophagitis present URI (obstructive sleep apnea) Obstructive sleep apnea (adult) (pediatric) Anxiety Anxiety state, unspecified PONV (postoperative nausea and vomiting) Nausea with vomiting 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, without mention of intractable epilepsy 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, without mention of intractable epilepsy [facility] Pre-operative examination- Primary Preoperative examination, unspecified Ganglion cyst of wrist, right URI (obstructive sleep apnea) Obstructive sleep apnea (adult) (pediatric) 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, without mention of intractable epilepsy Iron deficiency anemia, unspecified iron deficiency anemia type Mild episode of recurrent major depressive disorder (HCC) Preop examination- Primary Preoperative examination, unspecified Acute pain of right knee 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, without mention of intractable epilepsy URI (obstructive sleep apnea) Obstructive sleep apnea (adult) (pediatric) Iron deficiency anemia, unspecified iron deficiency anemia type Pre-op evaluation- Primary Preoperative examination, unspecified PONV (postoperative nausea and vomiting) Nausea with vomiting URI (obstructive sleep apnea) Obstructive sleep apnea (adult) (pediatric) 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, without mention of intractable epilepsy Gastroesophageal reflux disease, unspecified whether esophagitis present Pre-op evaluation- Primary Preoperative examination, unspecified Gastroesophageal reflux disease, unspecified whether esophagitis present URI (obstructive sleep apnea) Obstructive sleep apnea (adult) (pediatric) Anxiety Anxiety state, unspecified PONV (postoperative nausea and vomiting) Nausea with vomiting 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, without mention of intractable epilepsy 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agia Tinea corporis- Primary Dermatophytosis of the body Skin rash Rash and other nonspecific skin eruption Unable to empty bladder Incomplete bladder emptying [facility] Pre-operative examination- Primary Preoperative examination, unspecified Ganglion cyst of wrist, right URI (obstructive sleep apnea) Obstructive sleep apnea (adult) (pediatric) 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, without mention of intractable epilepsy Iron deficiency anemia, unspecified iron deficiency anemia type Mild episode of recurrent major depressive disorder (HCC) Preop examination- Primary Preoperative examination, unspecified Acute pain of right knee 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, without mention of intractable epilepsy URI (obstructive sleep apnea) Obstructive sleep apnea (adult) (pediatric) Iron deficiency anemia, unspecified iron deficiency anemia type Pre-op evaluation- Primary Preoperative examination, unspecified PONV (postoperative nausea and vomiting) Nausea with vomiting URI (obstructive sleep apnea) Obstructive sleep apnea (adult) (pediatric) 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, without mention of intractable epilepsy Gastroesophageal reflux disease, unspecified whether esophagitis present Pre-op evaluation- Primary Preoperative examination, unspecified Gastroesophageal reflux disease, unspecified whether esophagitis present URI (obstructive sleep apnea) Obstructive sleep apnea (adult) (pediatric) Anxiety Anxiety state, unspecified PONV (postoperative nausea and vomiting) Nausea with vomiting 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, without mention of intractable epilepsy 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agia Psoriasis vulgaris- Primary Other psoriasis Rash and nonspecific skin eruption Rash and other nonspecific skin eruption [facility] this [facility] Diagnosis Pre-operative examination- Primary Preoperative examination, unspecified Ganglion cyst of wrist, right URI (obstructive sleep apnea) Obstructive sleep apnea (adult) (pediatric) 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, without mention of intractable epilepsy Iron deficiency anemia, unspecified iron deficiency anemia type Mild episode of recurrent major depressive disorder (HCC) Preop examination- Primary Preoperative examination, unspecified Acute pain of right knee 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, without mention of intractable epilepsy URI (obstructive sleep apnea) Obstructive sleep apnea (adult) (pediatric) Iron deficiency anemia, unspecified iron deficiency anemia type Pre-op evaluation- Primary Preoperative examination, unspecified PONV (postoperative nausea and vomiting) Nausea with vomiting URI (obstructive sleep apnea) Obstructive sleep apnea (adult) (pediatric) 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, without mention of intractable epilepsy Gastroesophageal reflux disease, unspecified whether esophagitis present Pre-op evaluation- Primary Preoperative examination, unspecified Gastroesophageal reflux disease, unspecified whether esophagitis present URI (obstructive sleep apnea) Obstructive sleep apnea (adult) (pediatric) Anxiety Anxiety state, unspecified PONV (postoperative nausea and vomiting) Nausea with vomiting 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, without mention of intractable epilepsy 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agia Strep pharyngitis- Primary Streptococcal sore throat Sore throat Acute pharyngitis [facility] Diagnosis Pre-operative examination- Primary Preoperative examination, unspecified Ganglion cyst of wrist, right URI (obstructive sleep apnea) Obstructive sleep apnea (adult) (pediatric) 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, without mention of intractable epilepsy Iron deficiency anemia, unspecified iron deficiency anemia type Mild episode of recurrent major depressive disorder (HCC) Preop examination- Primary Preoperative examination, unspecified Acute pain of right knee 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, without mention of intractable epilepsy URI (obstructive sleep apnea) Obstructive sleep apnea (adult) (pediatric) Iron deficiency anemia, unspecified iron deficiency anemia type Pre-op evaluation- Primary Preoperative examination, unspecified PONV (postoperative nausea and vomiting) Nausea with vomiting UIR (obstructive sleep apnea) Obstructive sleep apnea (adult) (pediatric) 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, without mention of intractable epilepsy Gastroesophageal reflux disease, unspecified whether esophagitis present Pre-op evaluation- Primary Preoperative examination, unspecified Gastroesophageal reflux disease, unspecified whether esophagitis present URI (obstructive sleep apnea) Obstructive sleep apnea (adult) (pediatric) Anxiety Anxiety state, unspecified PONV (postoperative nausea and vomiting) Nausea with vomiting 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, without mention of intractable epilepsy 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agia Screening for genitourinary condition- Primary Screening for other and unspecified genitourinary condition [facility] Diagnosis Pre-operative examination- Primary Preoperative examination, unspecified Ganglion cyst of wrist, right URI (obstructive sleep apnea) Obstructive sleep apnea (adult) (pediatric) 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, without mention of intractable epilepsy Iron deficiency anemia, unspecified iron deficiency anemia type Mild episode of recurrent major depressive disorder (HCC) Preop examination- Primary Preoperative examination, unspecified Acute pain of right knee 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, without mention of intractable epilepsy URI (obstructive sleep apnea) Obstructive sleep apnea (adult) (pediatric) Iron deficiency anemia, unspecified iron deficiency anemia type Pre-op evaluation- Primary Preoperative examination, unspecified PONV (postoperative nausea and vomiting) Nausea with vomiting URI (obstructive sleep apnea) Obstructive sleep apnea (adult) (pediatric) 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, without mention of intractable epilepsy Gastroesophageal reflux disease, unspecified whether esophagitis present Pre-op evaluation- Primary Preoperative examination, unspecified Gastroesophageal reflux disease, unspecified whether esophagitis present URI (obstructive sleep apnea) Obstructive sleep apnea (adult) (pediatric) Anxiety Anxiety state, unspecified PONV (postoperative nausea and vomiting) Nausea with vomiting 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, without mention of intractable epilepsy 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agia Migraine without aura and with status migrainosus, not intractable- Primary Migraine without aura, without mention of intractable migraine with status migrainosus [facility] Diagnosis Pre-operative examination- Primary Preoperative examination, unspecified Ganglion cyst of wrist, right URI (obstructive sleep apnea) Obstructive sleep apnea (adult) (pediatric) 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, without mention of intractable epilepsy Iron deficiency anemia, unspecified iron deficiency anemia type Mild episode of recurrent major depressive disorder (HCC) Preop examination- Primary Preoperative examination, unspecified Acute pain of right knee 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, without mention of intractable epilepsy URI (obstructive sleep apnea) Obstructive sleep apnea (adult) (pediatric) Iron deficiency anemia, unspecified iron deficiency anemia type Pre-op evaluation- Primary Preoperative examination, unspecified PONV (postoperative nausea and vomiting) Nausea with vomiting URI (obstructive sleep apnea) Obstructive sleep apnea (adult) (pediatric) 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, without mention of intractable epilepsy Gastroesophageal reflux disease, unspecified whether esophagitis present Pre-op evaluation- Primary Preoperative examination, unspecified Gastroesophageal reflux disease, unspecified whether esophagitis present URI (obstructive sleep apnea) Obstructive sleep apnea (adult) (pediatric) Anxiety Anxiety state, unspecified PONV (postoperative nausea and vomiting) Nausea with vomiting 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, without mention of intractable epilepsy 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agia Left flank pain- Primary Abdominal pain, unspecified site [facility]* Diagnosis Pre-operative examination- Primary Preoperative examination, unspecified Ganglion cyst of wrist, right URI (obstructive sleep apnea) Obstructive sleep apnea (adult) (pediatric) 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, without mention of intractable epilepsy Iron deficiency anemia, unspecified iron deficiency anemia type Mild episode of recurrent major depressive disorder (HCC) Preop examination- Primary Preoperative examination, unspecified Acute pain of right knee 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, without mention of intractable epilepsy URI (obstructive sleep apnea) Obstructive sleep apnea (adult) (pediatric) Iron deficiency anemia, unspecified iron deficiency anemia type Pre-op evaluation- Primary Preoperative examination, unspecified PONV (postoperative nausea and vomiting) Nausea with vomiting URI (obstructive sleep apnea) Obstructive sleep apnea (adult) (pediatric) 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, without mention of intractable epilepsy Gastroesophageal reflux disease, unspecified whether esophagitis present Pre-op evaluation- Primary Preoperative examination, unspecified Gastroesophageal reflux disease, unspecified whether esophagitis present URI (obstructive sleep apnea) Obstructive sleep apnea (adult) (pediatric) Anxiety Anxiety state, unspecified PONV (postoperative nausea and vomiting) Nausea with vomiting 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, without mention of intractable epilepsy 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agia Rash and nonspecific skin eruption- Primary Rash and other nonspecific skin eruption [facility] Diagnosis Pre-operative examination- Primary Preoperative examination, unspecified Ganglion cyst of wrist, right URI (obstructive sleep apnea) Obstructive sleep apnea (adult) (pediatric) 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, without mention of intractable epilepsy Iron deficiency anemia, unspecified iron deficiency anemia type Mild episode of recurrent major depressive disorder Preop examination- Primary Preoperative examination, unspecified Acute pain of right knee 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, without mention of intractable epilepsy URI (obstructive sleep apnea) Obstructive sleep apnea (adult) (pediatric) Iron deficiency anemia, unspecified iron deficiency anemia type Pre-op evaluation- Primary Preoperative examination, unspecified PONV (postoperative nausea and vomiting) Nausea with vomiting URI (obstructive sleep apnea) Obstructive sleep apnea (adult) (pediatric) 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, without mention of intractable epilepsy Gastroesophageal reflux disease, unspecified whether esophagitis present Pre-op evaluation- Primary Preoperative examination, unspecified Gastroesophageal reflux disease, unspecified whether esophagitis present URI (obstructive sleep apnea) Obstructive sleep apnea (adult) (pediatric) Anxiety Anxiety state, unspecified PONV (postoperative nausea and vomiting) Nausea with vomiting 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, without mention of intractable epilepsy 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, without mention of intractable epilepsy [facility] Diagnosis Pre-operative examination- Primary Preoperative examination, unspecified Ganglion cyst of wrist, right URI (obstructive sleep apnea) Obstructive sleep apnea (adult) (pediatric) 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, without mention of intractable epilepsy Iron deficiency anemia, unspecified iron deficiency anemia type Mild episode of recurrent major depressive disorder Preop examination- Primary Preoperative examination, unspecified Acute pain of right knee 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, without mention of intractable epilepsy URI (obstructive sleep apnea) Obstructive sleep apnea (adult) (pediatric) Iron deficiency anemia, unspecified iron deficiency anemia type Pre-op evaluation- Primary Preoperative examination, unspecified PONV (postoperative nausea and vomiting) Nausea with vomiting URI (obstructive sleep apnea) Obstructive sleep apnea (adult) (pediatric) 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, without mention of intractable epilepsy Gastroesophageal reflux disease, unspecified whether esophagitis present Pre-op evaluation- Primary Preoperative examination, unspecified Gastroesophageal reflux disease, unspecified whether esophagitis present URI (obstructive sleep apnea) Obstructive sleep apnea (adult) (pediatric) Anxiety Anxiety state, unspecified PONV (postoperative nausea and vomiting) Nausea with vomiting 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, without mention of intractable epilepsy 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agia Nausea- Primary Nausea alone Generalized abdominal pain Abdominal pain, generalized Nausea Nausea alone Generalized abdominal pain Abdominal pain, generalized documented in this encounter [facility]* Diagnosis Pre-operative examination- Primary Preoperative examination, unspecified Ganglion cyst of wrist, right URI (obstructive sleep apnea) Obstructive sleep apnea (adult) (pediatric) 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, without mention of intractable epilepsy Iron deficiency anemia, unspecified iron deficiency anemia type Mild episode of recurrent major depressive disorder Preop examination- Primary Preoperative examination, unspecified Acute pain of right knee 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, without mention of intractable epilepsy URI (obstructive sleep apnea) Obstructive sleep apnea (adult) (pediatric) Iron deficiency anemia, unspecified iron deficiency anemia type Pre-op evaluation- Primary Preoperative examination, unspecified PONV (postoperative nausea and vomiting) Nausea with vomiting URI (obstructive sleep apnea) Obstructive sleep apnea (adult) (pediatric) 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, without mention of intractable epilepsy Gastroesophageal reflux disease, unspecified whether esophagitis present Pre-op evaluation- Primary Preoperative examination, unspecified Gastroesophageal reflux disease, unspecified whether esophagitis present URI (obstructive sleep apnea) Obstructive sleep apnea (adult) (pediatric) Anxiety Anxiety state, unspecified PONV (postoperative nausea and vomiting) Nausea with vomiting 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, without mention of intractable epilepsy 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agia Nausea Nausea alone Generalized abdominal pain Abdominal pain, generalized documented in this encounter [facility]* Diagnosis Pre-operative examination- Primary Preoperative examination, unspecified Ganglion cyst of wrist, right URI (obstructive sleep apnea) Obstructive sleep apnea (adult) (pediatric) 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, without mention of intractable epilepsy Iron deficiency anemia, unspecified iron deficiency anemia type Mild episode of recurrent major depressive disorder Preop examination- Primary Preoperative examination, unspecified Acute pain of right knee 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, without mention of intractable epilepsy URI (obstructive sleep apnea) Obstructive sleep apnea (adult) (pediatric) Iron deficiency anemia, unspecified iron deficiency anemia type Pre-op evaluation- Primary Preoperative examination, unspecified PONV (postoperative nausea and vomiting) Nausea with vomiting URI (obstructive sleep apnea) Obstructive sleep apnea (adult) (pediatric) 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, without mention of intractable epilepsy Gastroesophageal reflux disease, unspecified whether esophagitis present Pre-op evaluation- Primary Preoperative examination, unspecified Gastroesophageal reflux disease, unspecified whether esophagitis present URI (obstructive sleep apnea) Obstructive sleep apnea (adult) (pediatric) Anxiety Anxiety state, unspecified PONV (postoperative nausea and vomiting) Nausea with vomiting 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, without mention of intractable epilepsy 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agia Nausea- Primary Nausea alone Gastro-esophageal reflux disease without esophagitis Esophageal reflux Epigastric pain Abdominal pain, epigastric Other constipation Nausea and vomiting, unspecified vomiting type Encounter for screening for malignant neoplasm of colon Special screening for malignant neoplasms, colon Decreased appetite [facility]orexia [facility] Pre-operative examination- Primary Preoperative examination, unspecified Ganglion cyst of wrist, right URI (obstructive sleep apnea) Obstructive sleep apnea (adult) (pediatric) 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, without mention of intractable epilepsy Iron deficiency anemia, unspecified iron deficiency anemia type Mild episode of recurrent major depressive disorder Preop examination- Primary Preoperative examination, unspecified Acute pain of right knee 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, without mention of intractable epilepsy URI (obstructive sleep apnea) Obstructive sleep apnea (adult) (pediatric) Iron deficiency anemia, unspecified iron deficiency anemia type Pre-op evaluation- Primary Preoperative examination, unspecified PONV (postoperative nausea and vomiting) Nausea with vomiting URI (obstructive sleep apnea) Obstructive sleep apnea (adult) (pediatric) 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, without mention of intractable epilepsy Gastroesophageal reflux disease, unspecified whether esophagitis present Pre-op evaluation- Primary Preoperative examination, unspecified Gastroesophageal reflux disease, unspecified whether esophagitis present URI (obstructive sleep apnea) Obstructive sleep apnea (adult) (pediatric) Anxiety Anxiety state, unspecified PONV (postoperative nausea and vomiting) Nausea with vomiting 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, without mention of intractable epilepsy 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agia Strep throat- Primary Streptococcal sore throat [facility] Diagnosis Pre-operative examination- Primary Preoperative examination, unspecified Ganglion cyst of wrist, right URI (obstructive sleep apnea) Obstructive sleep apnea (adult) (pediatric) 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, without mention of intractable epilepsy Iron deficiency anemia, unspecified iron deficiency anemia type Mild episode of recurrent major depressive disorder Preop examination- Primary Preoperative examination, unspecified Acute pain of right knee 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, without mention of intractable epilepsy URI (obstructive sleep apnea) Obstructive sleep apnea (adult) (pediatric) Iron deficiency anemia, unspecified iron deficiency anemia type Pre-op evaluation- Primary Preoperative examination, unspecified PONV (postoperative nausea and vomiting) Nausea with vomiting URI (obstructive sleep apnea) Obstructive sleep apnea (adult) (pediatric) 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, without mention of intractable epilepsy Gastroesophageal reflux disease, unspecified whether esophagitis present Pre-op evaluation- Primary Preoperative examination, unspecified Gastroesophageal reflux disease, unspecified whether esophagitis present URI (obstructive sleep apnea) Obstructive sleep apnea (adult) (pediatric) Anxiety Anxiety state, unspecified PONV (postoperative nausea and vomiting) Nausea with vomiting 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, without mention of intractable epilepsy 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 epilepsy (HCC)- Primary Localization-related (focal) (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, without mention of intractable epilepsy [facility] Diagnosis Pre-operative examination- Primary Preoperative examination, unspecified Ganglion cyst of wrist, right URI (obstructive sleep apnea) Obstructive sleep apnea (adult) (pediatric) 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, without mention of intractable epilepsy Iron deficiency anemia, unspecified iron deficiency anemia type Mild episode of recurrent major depressive disorder Preop examination- Primary Preoperative examination, unspecified Acute pain of right knee 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, without mention of intractable epilepsy URI (obstructive sleep apnea) Obstructive sleep apnea (adult) (pediatric) Iron deficiency anemia, unspecified iron deficiency anemia type Pre-op evaluation- Primary Preoperative examination, unspecified PONV (postoperative nausea and vomiting) Nausea with vomiting URI (obstructive sleep apnea) Obstructive sleep apnea (adult) (pediatric) 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, without mention of intractable epilepsy Gastroesophageal reflux disease, unspecified whether esophagitis present Pre-op evaluation- Primary Preoperative examination, unspecified Gastroesophageal reflux disease, unspecified whether esophagitis present URI (obstructive sleep apnea) Obstructive sleep apnea (adult) (pediatric) Anxiety Anxiety state, unspecified PONV (postoperative nausea and vomiting) Nausea with vomiting 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, without mention of intractable epilepsy 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agia Right knee pain, unspecified chronicity [facility] Diagnosis Pre-operative examination- Primary Preoperative examination, unspecified Ganglion cyst of wrist, right URI (obstructive sleep apnea) Obstructive sleep apnea (adult) (pediatric) 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, without mention of intractable epilepsy Iron deficiency anemia, unspecified iron deficiency anemia type Mild episode of recurrent major depressive disorder Preop examination- Primary Preoperative examination, unspecified Acute pain of right knee 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, without mention of intractable epilepsy URI (obstructive sleep apnea) Obstructive sleep apnea (adult) (pediatric) Iron deficiency anemia, unspecified iron deficiency anemia type Pre-op evaluation- Primary Preoperative examination, unspecified PONV (postoperative nausea and vomiting) Nausea with vomiting URI (obstructive sleep apnea) Obstructive sleep apnea (adult) (pediatric) 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, without mention of intractable epilepsy Gastroesophageal reflux disease, unspecified whether esophagitis present Pre-op evaluation- Primary Preoperative examination, unspecified Gastroesophageal reflux disease, unspecified whether esophagitis present URI (obstructive sleep apnea) Obstructive sleep apnea (adult) (pediatric) Anxiety Anxiety state, unspecified PONV (postoperative nausea and vomiting) Nausea with vomiting 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, without mention of intractable epilepsy 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agia Encounter for screening mammogram for breast cancer [facility] Diagnosis Pre-operative examination- Primary Preoperative examination, unspecified Ganglion cyst of wrist, right URI (obstructive sleep apnea) Obstructive sleep apnea (adult) (pediatric) 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, without mention of intractable epilepsy Iron deficiency anemia, unspecified iron deficiency anemia type Mild episode of recurrent major depressive disorder Preop examination- Primary Preoperative examination, unspecified Acute pain of right knee 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, without mention of intractable epilepsy URI (obstructive sleep apnea) Obstructive sleep apnea (adult) (pediatric) Iron deficiency anemia, unspecified iron deficiency anemia type Pre-op evaluation- Primary Preoperative examination, unspecified PONV (postoperative nausea and vomiting) Nausea with vomiting URI (obstructive sleep apnea) Obstructive sleep apnea (adult) (pediatric) 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, without mention of intractable epilepsy Gastroesophageal reflux disease, unspecified whether esophagitis present Pre-op evaluation- Primary Preoperative examination, unspecified Gastroesophageal reflux disease, unspecified whether esophagitis present URI (obstructive sleep apnea) Obstructive sleep apnea (adult) (pediatric) Anxiety Anxiety state, unspecified PONV (postoperative nausea and vomiting) Nausea with vomiting 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, without mention of intractable epilepsy 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agia Encounter for gynecological examination (general) (routine) without abnormal findings- Primary Encounter for screening mammogram for breast cancer documented in this encounter [facility] note* Diagnosis Pre-operative examination- Primary Preoperative examination, unspecified Ganglion cyst of wrist, right URI (obstructive sleep apnea) Obstructive sleep apnea (adult) (pediatric) 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, without mention of intractable epilepsy Iron deficiency anemia, unspecified iron deficiency anemia type Mild episode of recurrent major depressive disorder Preop examination- Primary Preoperative examination, unspecified Acute pain of right knee 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, without mention of intractable epilepsy URI (obstructive sleep apnea) Obstructive sleep apnea (adult) (pediatric) Iron deficiency anemia, unspecified iron deficiency anemia type Pre-op evaluation- Primary Preoperative examination, unspecified PONV (postoperative nausea and vomiting) Nausea with vomiting URI (obstructive sleep apnea) Obstructive sleep apnea (adult) (pediatric) 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, without mention of intractable epilepsy Gastroesophageal reflux disease, unspecified whether esophagitis present Pre-op evaluation- Primary Preoperative examination, unspecified Gastroesophageal reflux disease, unspecified whether esophagitis present URI (obstructive sleep apnea) Obstructive sleep apnea (adult) (pediatric) Anxiety Anxiety state, unspecified PONV (postoperative nausea and vomiting) Nausea with vomiting 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, without mention of intractable epilepsy 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 Chondromalacia of patella Chronic pain of right knee documented in this encounter [facility] note* Diagnosis Pre-operative examination- Primary Preoperative examination, unspecified Ganglion cyst of wrist, right URI (obstructive sleep apnea) Obstructive sleep apnea (adult) (pediatric) 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, without mention of intractable epilepsy Iron deficiency anemia, unspecified iron deficiency anemia type Mild episode of recurrent major depressive disorder Preop examination- Primary Preoperative examination, unspecified Acute pain of right knee 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, without mention of intractable epilepsy URI (obstructive sleep apnea) Obstructive sleep apnea (adult) (pediatric) Iron deficiency anemia, unspecified iron deficiency anemia type Pre-op evaluation- Primary Preoperative examination, unspecified PONV (postoperative nausea and vomiting) Nausea with vomiting URI (obstructive sleep apnea) Obstructive sleep apnea (adult) (pediatric) 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, without mention of intractable epilepsy Gastroesophageal reflux disease, unspecified whether esophagitis present Pre-op evaluation- Primary Preoperative examination, unspecified Gastroesophageal reflux disease, unspecified whether esophagitis present URI (obstructive sleep apnea) Obstructive sleep apnea (adult) (pediatric) Anxiety Anxiety state, unspecified PONV (postoperative nausea and vomiting) Nausea with vomiting 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, without mention of intractable epilepsy 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agia Encounter for screening mammogram for breast cancer [facility] Diagnosis Pre-operative examination- Primary Preoperative examination, unspecified Ganglion cyst of wrist, right URI (obstructive sleep apnea) Obstructive sleep apnea (adult) (pediatric) 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, without mention of intractable epilepsy Iron deficiency anemia, unspecified iron deficiency anemia type Mild episode of recurrent major depressive disorder Preop examination- Primary Preoperative examination, unspecified Acute pain of right knee 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, without mention of intractable epilepsy URI (obstructive sleep apnea) Obstructive sleep apnea (adult) (pediatric) Iron deficiency anemia, unspecified iron deficiency anemia type Pre-op evaluation- Primary Preoperative examination, unspecified PONV (postoperative nausea and vomiting) Nausea with vomiting URI (obstructive sleep apnea) Obstructive sleep apnea (adult) (pediatric) 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, without mention of intractable epilepsy Gastroesophageal reflux disease, unspecified whether esophagitis present Pre-op evaluation- Primary Preoperative examination, unspecified Gastroesophageal reflux disease, unspecified whether esophagitis present URI (obstructive sleep apnea) Obstructive sleep apnea (adult) (pediatric) Anxiety Anxiety state, unspecified PONV (postoperative nausea and vomiting) Nausea with vomiting 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, without mention of intractable epilepsy 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agia Nausea Nausea alone Epigastric pain Abdominal pain, epigastric Other constipation documented in this encounter [facility] note* Diagnosis Pre-operative examination- Primary Preoperative examination, unspecified Ganglion cyst of wrist, right URI (obstructive sleep apnea) Obstructive sleep apnea (adult) (pediatric) 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, without mention of intractable epilepsy Iron deficiency anemia, unspecified iron deficiency anemia type Mild episode of recurrent major depressive disorder Preop examination- Primary Preoperative examination, unspecified Acute pain of right knee 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, without mention of intractable epilepsy URI (obstructive sleep apnea) Obstructive sleep apnea (adult) (pediatric) Iron deficiency anemia, unspecified iron deficiency anemia type Pre-op evaluation- Primary Preoperative examination, unspecified PONV (postoperative nausea and vomiting) Nausea with vomiting URI (obstructive sleep apnea) Obstructive sleep apnea (adult) (pediatric) 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, without mention of intractable epilepsy Gastroesophageal reflux disease, unspecified whether esophagitis present Pre-op evaluation- Primary Preoperative examination, unspecified Gastroesophageal reflux disease, unspecified whether esophagitis present URI (obstructive sleep apnea) Obstructive sleep apnea (adult) (pediatric) Anxiety Anxiety state, unspecified PONV (postoperative nausea and vomiting) Nausea with vomiting 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, without mention of intractable epilepsy 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agia Nausea- Primary Nausea alone Epigastric pain Abdominal pain, epigastric Gastro-esophageal reflux disease without esophagitis Esophageal reflux Other constipation Nausea and vomiting, unspecified vomiting type Intestinal metaplasia of stomach Autoimmune gastritis Atrophic gastritis without mention of hemorrhage [facility] Pre[facility]- Primary Preoperative examination, unspecified Ganglion cyst of wrist, right URI (obstructive sleep apnea) Obstructive sleep apnea (adult) (pediatric) 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, without mention of intractable epilepsy Iron deficiency anemia, unspecified iron deficiency anemia type Mild episode of recurrent major depressive disorder Preop examination- Primary Preoperative examination, unspecified Acute pain of right knee 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, without mention of intractable epilepsy URI (obstructive sleep apnea) Obstructive sleep apnea (adult) (pediatric) Iron deficiency anemia, unspecified iron deficiency anemia type Pre-op evaluation- Primary Preoperative examination, unspecified PONV (postoperative nausea and vomiting) Nausea with vomiting URI (obstructive sleep apnea) Obstructive sleep apnea (adult) (pediatric) 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, without mention of intractable epilepsy Gastroesophageal reflux disease, unspecified whether esophagitis present Pre-op evaluation- Primary Preoperative examination, unspecified Gastroesophageal reflux disease, unspecified whether esophagitis present URI (obstructive sleep apnea) Obstructive sleep apnea (adult) (pediatric) Anxiety Anxiety state, unspecified PONV (postoperative nausea and vomiting) Nausea with vomiting 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, without mention of intractable epilepsy 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agia Positive BONNIE (antinuclear antibody)- Primary Other and unspecified nonspecific immunological findings Interface dermatitis Contact dermatitis and other eczema, due to unspecified cause Nausea and vomiting, unspecified vomiting type Lordosis Lordosis (acquired) (postural) Postural kyphosis, unspecified spinal region Nausea Nausea alone Dyspepsia Dyspepsia and other specified disorders of function of stomach [facility] Diagnosis Pre-operative examination- Primary Preoperative examination, unspecified Ganglion cyst of wrist, right URI (obstructive sleep apnea) Obstructive sleep apnea (adult) (pediatric) 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, without mention of intractable epilepsy Iron deficiency anemia, unspecified iron deficiency anemia type Mild episode of recurrent major depressive disorder Preop examination- Primary Preoperative examination, unspecified Acute pain of right knee 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, without mention of intractable epilepsy URI (obstructive sleep apnea) Obstructive sleep apnea (adult) (pediatric) Iron deficiency anemia, unspecified iron deficiency anemia type Pre-op evaluation- Primary Preoperative examination, unspecified PONV (postoperative nausea and vomiting) Nausea with vomiting URI (obstructive sleep apnea) Obstructive sleep apnea (adult) (pediatric) 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, without mention of intractable epilepsy Gastroesophageal reflux disease, unspecified whether esophagitis present Pre-op evaluation- Primary Preoperative examination, unspecified Gastroesophageal reflux disease, unspecified whether esophagitis present URI (obstructive sleep apnea) Obstructive sleep apnea (adult) (pediatric) Anxiety Anxiety state, unspecified PONV (postoperative nausea and vomiting) Nausea with vomiting 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, without mention of intractable epilepsy 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) Postural kyphosis, unspecified spinal region [facility] Pre-operative examination- Primary Preoperative examination, unspecified Ganglion cyst of wrist, right URI (obstructive sleep apnea) Obstructive sleep apnea (adult) (pediatric) 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, without mention of intractable epilepsy Iron deficiency anemia, unspecified iron deficiency anemia type Mild episode of recurrent major depressive disorder Preop examination- Primary Preoperative examination, unspecified Acute pain of right knee 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, without mention of intractable epilepsy URI (obstructive sleep apnea) Obstructive sleep apnea (adult) (pediatric) Iron deficiency anemia, unspecified iron deficiency anemia type Pre-op evaluation- Primary Preoperative examination, unspecified PONV (postoperative nausea and vomiting) Nausea with vomiting URI (obstructive sleep apnea) Obstructive sleep apnea (adult) (pediatric) 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, without mention of intractable epilepsy Gastroesophageal reflux disease, unspecified whether esophagitis present Pre-op evaluation- Primary Preoperative examination, unspecified Gastroesophageal reflux disease, unspecified whether esophagitis present URI (obstructive sleep apnea) Obstructive sleep apnea (adult) (pediatric) Anxiety Anxiety state, unspecified PONV (postoperative nausea and vomiting) Nausea with vomiting 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, without mention of intractable epilepsy 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agia Positive BONNIE (antinuclear antibody)- Primary Other and unspecified nonspecific immunological findings documented in this encounter [facility] note* Diagnosis Pre-operative examination- Primary Preoperative examination, unspecified Ganglion cyst of wrist, right URI (obstructive sleep apnea) Obstructive sleep apnea (adult) (pediatric) 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, without mention of intractable epilepsy Iron deficiency anemia, unspecified iron deficiency anemia type Mild episode of recurrent major depressive disorder Preop examination- Primary Preoperative examination, unspecified Acute pain of right knee 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, without mention of intractable epilepsy URI (obstructive sleep apnea) Obstructive sleep apnea (adult) (pediatric) Iron deficiency anemia, unspecified iron deficiency anemia type Pre-op evaluation- Primary Preoperative examination, unspecified PONV (postoperative nausea and vomiting) Nausea with vomiting URI (obstructive sleep apnea) Obstructive sleep apnea (adult) (pediatric) 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, without mention of intractable epilepsy Gastroesophageal reflux disease, unspecified whether esophagitis present Pre-op evaluation- Primary Preoperative examination, unspecified Gastroesophageal reflux disease, unspecified whether esophagitis present URI (obstructive sleep apnea) Obstructive sleep apnea (adult) (pediatric) Anxiety Anxiety state, unspecified PONV (postoperative nausea and vomiting) Nausea with vomiting 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, without mention of intractable epilepsy 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agia Epigastric pain- Primary Abdominal pain, epigastric Chronic constipation Unspecified constipation Bloating Flatulence, eructation, and gas pain Early satiety documented in this encounter 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, without mention of intractable epilepsy Iron deficiency anemia, unspecified iron deficiency anemia type Mild episode of recurrent major depressive disorder Preop examination- Primary Preoperative examination, unspecified Acute pain of right knee 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, without mention of intractable epilepsy URI (obstructive sleep apnea) Obstructive sleep apnea (adult) (pediatric) Iron deficiency anemia, unspecified iron deficiency anemia type Pre-op evaluation- Primary Preoperative examination, unspecified PONV (postoperative nausea and vomiting) Nausea with vomiting URI (obstructive sleep apnea) Obstructive sleep apnea (adult) (pediatric) 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, without mention of intractable epilepsy Gastroesophageal reflux disease, unspecified whether esophagitis present Pre-op evaluation- Primary Preoperative examination, unspecified Gastroesophageal reflux disease, unspecified whether esophagitis present URI (obstructive sleep apnea) Obstructive sleep apnea (adult) (pediatric) Anxiety Anxiety state, unspecified PONV (postoperative nausea and vomiting) Nausea with vomiting 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, without mention of intractable epilepsy 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agia Chronic constipation Unspecified constipation Epigastric pain Abdominal pain, epigastric Bloating Flatulence, eructation, and gas pain [facility] Diagnosis Pre-operative examination- Primary Preoperative examination, unspecified Ganglion cyst of wrist, right URI (obstructive sleep apnea) Obstructive sleep apnea (adult) (pediatric) 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, without mention of intractable epilepsy Iron deficiency anemia, unspecified iron deficiency anemia type Mild episode of recurrent major depressive disorder Preop examination- Primary Preoperative examination, unspecified Acute pain of right knee 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, without mention of intractable epilepsy URI (obstructive sleep apnea) Obstructive sleep apnea (adult) (pediatric) Iron deficiency anemia, unspecified iron deficiency anemia type Pre-op evaluation- Primary Preoperative examination, unspecified PONV (postoperative nausea and vomiting) Nausea with vomiting URI (obstructive sleep apnea) Obstructive sleep apnea (adult) (pediatric) 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, without mention of intractable epilepsy Gastroesophageal reflux disease, unspecified whether esophagitis present Pre-op evaluation- Primary Preoperative examination, unspecified Gastroesophageal reflux disease, unspecified whether esophagitis present URI (obstructive sleep apnea) Obstructive sleep apnea (adult) (pediatric) Anxiety Anxiety state, unspecified PONV (postoperative nausea and vomiting) Nausea with vomiting 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, without mention of intractable epilepsy 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agia Chronic constipation Unspecified constipation Bloating Flatulence, eructation, and gas pain Chronic constipation- Primary Unspecified constipation Pelvic floor dysfunction Pelvic muscle wasting [facility] Diagnosis Pre-operative examination- Primary Preoperative examination, unspecified Ganglion cyst of wrist, right URI (obstructive sleep apnea) Obstructive sleep apnea (adult) (pediatric) 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, without mention of intractable epilepsy Iron deficiency anemia, unspecified iron deficiency anemia type Mild episode of recurrent major depressive disorder Preop examination- Primary Preoperative examination, unspecified Acute pain of right knee 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, without mention of intractable epilepsy URI (obstructive sleep apnea) Obstructive sleep apnea (adult) (pediatric) Iron deficiency anemia, unspecified iron deficiency anemia type Pre-op evaluation- Primary Preoperative examination, unspecified PONV (postoperative nausea and vomiting) Nausea with vomiting URI (obstructive sleep apnea) Obstructive sleep apnea (adult) (pediatric) 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, without mention of intractable epilepsy Gastroesophageal reflux disease, unspecified whether esophagitis present Pre-op evaluation- Primary Preoperative examination, unspecified Gastroesophageal reflux disease, unspecified whether esophagitis present URI (obstructive sleep apnea) Obstructive sleep apnea (adult) (pediatric) Anxiety Anxiety state, unspecified PONV (postoperative nausea and vomiting) Nausea with vomiting 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, without mention of intractable epilepsy 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agia Chronic constipation- Primary Unspecified constipation Pelvic floor dysfunction Pelvic muscle wasting [facility] Diagnosis Pre-operative examination- Primary Preoperative examination, unspecified Ganglion cyst of wrist, right URI (obstructive sleep apnea) Obstructive sleep apnea (adult) (pediatric) 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, without mention of intractable epilepsy Iron deficiency anemia, unspecified iron deficiency anemia type Mild episode of recurrent major depressive disorder Preop examination- Primary Preoperative examination, unspecified Acute pain of right knee 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, without mention of intractable epilepsy URI (obstructive sleep apnea) Obstructive sleep apnea (adult) (pediatric) Iron deficiency anemia, unspecified iron deficiency anemia type Pre-op evaluation- Primary Preoperative examination, unspecified PONV (postoperative nausea and vomiting) Nausea with vomiting URI (obstructive sleep apnea) Obstructive sleep apnea (adult) (pediatric) 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, without mention of intractable epilepsy Gastroesophageal reflux disease, unspecified whether esophagitis present Pre-op evaluation- Primary Preoperative examination, unspecified Gastroesophageal reflux disease, unspecified whether esophagitis present URI (obstructive sleep apnea) Obstructive sleep apnea (adult) (pediatric) Anxiety Anxiety state, unspecified PONV (postoperative nausea and vomiting) Nausea with vomiting 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, without mention of intractable epilepsy 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agia Nausea- Primary Nausea alone [facility] Janay Zeng [facility] September 22, 2023 8:54pm Note Date/Time September 22, 2023 8:5 4pm [facility] Medical Records Department [address] [place] [address] History & Physical Exam 09/22/232047 MR#: [id number] Acct: [id number] Name: YAMIL NG Rep #:[id number] : 1985 38 From: Janay Zeng MD PCP: Care Physician,No Primary Status :[facility] Location: [facility] [place] History and Physical Date of Admission: 09/22/23 38-year-old female status post LAVH at [facility] on 09/04/2023 -reports hadsome bleeding on 09/17/23 was seen in the office had silver nitrate applied to her vaginal cuff and has since been doing fine. States today had heavy bleedingthat began recently passing large clots. Patient states she is starting to feeldizzy when ambulating. She is having some cramping in the lower abdomen. She denies any fevers or abnormal vaginal discharge. She denies having anything inside the vagina or straining. She states no difficulty with urination or bowel movements. Patient offers no other concerns at this time. Exam: female in NAD abd: soft, non distended, non tender to palpation VE: Speculum - Large amount of bright red blood in vagina- large clots expelled-approximately 100cc expelled from vagina. Unable to see any active oozing from cuff. On palpation of cuff possible defect but difficult to see on speculum. a/p: 38yo s/p LAVH on 09/04/23 with delayed post vaginal bleeding 1) discussed with patient and significant other recommendation for [facility] for exam under anesthesia with possible revision of vaginal cuff with diagnostic laparoscopy as there is significant amount of bleeding. Patient agreeable consent was signed. Risks were reviewed with the patient. Consent for blood products. 2) ancef 2 grams PRE OP 3) Nursing film editor supervisor notified and anesthesia notified. 09/22/232053 <Electronically signed by Janay Zeng MD> Cosigner Signature (if applicable): CC: Foreign [place]-Karri; No Primary Care Physician~ Signed [facility] Work Phone: Hospital Discharge instructions Additional Instructions You are being treated for pyelonephritis which is a kidney infection. This starts in the bladder and spreads upward. Take the antibiotics 4 times a day. I prescribed [place] for pain and you can also take ibuprofen 600 mg every 6 hours. Return to ER if symptoms worsen. [facility] Work Phone: Progress note Author Olu Bacon [facility] September 24, 2023 1:22pm Note Date/Time September 24, 2023 1:22 pm [facility] Medical Records Department [address] [place] [address] Progress Note 09/24/23 1319 MR#: [id number] Acct: [id number] Name: YAMIL NG Rep #:[id number] : 1985 38 From: Olu Bacon MD PCP: Dr. Skip Ignacio MD Status :ADM IN Location: [place] [address] Subjective Subjective Pain improved since yesterday. Denies new concerns. Objective Data Objective Data Vital Signs: Vital Signs Temp Pulse Resp BP Pulse Ox O2 Del Method O2 Flow Rate 98.1 F 68 18 114/64 100 Room Air 1 09/24/23 12:22 09/24/23 12:22 09/24/23 12:22 09/24/23 12:22 09/24/23 12:22 09/24/23 12:22 09/23/23 04:29 Oxygen Flow Rate (L/min) 1 Oxygen Delivery Method Room Air Weight: 168 lb 3.403 oz Body Mass Index (BMI) 29.7 Intake & Output: Intake and Output for Last 24 Hours 09/22/23 09/23/23 09/24/23 23:59 23:59 23:59 Intake Total 1150 / 1150 4686.0 / 4686.0 2807.5 / 2807.5 Output Total 400 / 400 760 / 760 80 / 80 Balance 750 / 750 3926.0 / 3926.0 2727.5 / 2727.5 Lab / Micro Data Attestation: I reviewed the patient's lab results. 09/24/23 06:55 09/24/23 06:55 Labs: Laboratory Results - last 24 hr 09/23/23 12:58: Sodium 139, Potassium 4.0, Chloride 108 H, Carbon Dioxide 22.0, Anion Gap 9, BUN 7, Creatinine 0.80, Estim Creat Clear Calc 91.43, Est GFR (MDRD) Af Amer 102, Est GFR (MDRD) Non-Af 84, BUN/Creatinine Ratio 8.7 L, Glucose 89, Calcium 8.5, Total Bilirubin 0.40, AST 10 L, ALT 13, Alkaline Phosphatase 53, Total Protein 6.4, Albumin 3.2, Globulin 3.2, Albumin/Globulin Ratio 1.0 09/24/23 06:55: WBC 8.0, RBC 3.54 L, Hgb 10.2 L, Hct 31.4 L, MCV 88.7, MCH 28.8,MCHC 32.5, RDW Std Deviation 40.6, RDW Coeff of Mikhail 12.6, Plt Count 270, MPV 9.1, Immature Gran % (Auto) 0.400, Neut % (Auto) 63.0, Lymph % (Auto) 28.2, [place]% (Auto) 6.7, Eos % (Auto) 1.1, Baso % (Auto) 0.6, Absolute Neuts (auto) 5.1, Absolute Lymphs (auto) 2.27, Nucleated RBC % 0, Sodium 142, Potassium 3.6, Chloride 114 H, Carbon Dioxide 23.0, Anion Gap 5, BUN 8, Creatinine 0.70, Estim Creat Clear Calc 104.50, Est GFR (MDRD) Af Amer 119, Est GFR (MDRD) Non-Af 98, BUN/Creatinine Ratio 11.4, Glucose 91, Calcium 8.1 L, Total Bilirubin 0.50, AST 10 L, ALT 10 L, Alkaline Phosphatase 42 L, Total Protein 5.4 L, Albumin 2.6 L, Globulin 2.8, Albumin/Globulin Ratio 0.9 Micro: Microbiology 09/22/23 23:28 Incision/Surgical Site Gram Stain - Final 09/22/23 23:28 Incision/Surgical Site Wound Culture - Preliminary Gram positive organism Gram positive organism#2 Physical Exam Const alert, oriented x3 and no apparent distress GI soft to palpation, non-tender and non-distended Extremity no calf tenderness Assessment & Plan Assessment/Plan (1) Post-operative state: PLAN: POD#2 (2) Dehiscence of vaginal cuff: QUALIFIERS: Encounter type: initial encounter Qualified Code(s): T81.31XA - Disruption of external operation (surgical) wound, not elsewhere classified, initial encounter PLAN: Plan Patient continue to improve. She is HDS and no signs of infection. Discuss possible discharge later today or tomorrow depending on her pain, 09/24/23 1322 <Electronically signed by Olu Bacon MD> Olu Bacon MD Cosigner Signature (if applicable): CC: ~ Signed [facility] Work Phone: Reason for referral (narrative)* Diagnostic Procedure Only (Urgent) - Closed Specialty Diagnoses / Procedures Referred By Contac t Referred To Contact XR IMAGING Diagnoses Acute pain of right knee Procedures XR KNEE GENERAL 4V AP BOTH/PA BOTH/LAT/MERC RIGHT RADIOLOGIC EXAM KNEE COMPLETE 4/MORE VIEWS Tabatha Almazan APRN.CNP [address] [place] [address] Xr Imaging Referral ID Status Reason Start Date Expiration Date V isits Requested Visits Authorized [id number] Closed Auto-Generate d Referral 10/11/2022 11/10/2023 1 1 [facility] for referral (narrative)* Outpatient Procedure (Routine) - Pending Review Specialty Diagnoses / Procedures Referred By Contac t Referred To Contact [facility] Diagnoses LGSIL on Pap smear of cervix Procedures COLPOSCOPY COLPOSCOPY CERVIX BX CERVIX & ENDOCRV CURRETAGE Lalita Mccoy APRN.TRACK WATCHMAN [address] [place] [address] [facility] [address] [place] [address] Referral ID Status Reason Start Date Expiration Date Visits Requested Visits Authorized [id number] Pending Review Auto-Generat ed Referral 11/30/2022 11/30/2023 1 1 [facility] for referral (narrative)* Diagnostic Procedure Only (Routine) - Authorized Specialty Diagnoses / Procedures Referred By Contac t Referred To Contact [facility] Diagnoses Menorrhagia with irregular cycle Procedures PELVIC US WHI US PELVIC NONOBSTETRIC REAL-TIME IMAGE COMPLETE Lalita Mccoy APRN.TRACK WATCHMAN [address] [place] [address] [facility] [address] [place] [address] Referral ID Status Reason Start Date Expiration Date Visits Requested Visits Authorized [id number] Authorized Auto-Generat ed Referral 11/23/2022 11/23/2023 1 1 [facility] for referral (narrative)* Diagnostic Procedure Only (Urgent) - Closed Specialty Diagnoses / Procedures Referred By Abdulkadirac t Referred To Contact XR IMAGING Diagnoses Foot pain, left Procedures XR FOOT GENERAL 3V AP/LAT/OBL LEFT RADEX FOOT COMPLETE MINIMUM 3 VIEWS Ismael Alonzo APRN.CNP [address] [place] [address] [place] [address] Referral ID Status Reason Start Date Expiration Date V isits Requested Visits Authorized [id number] Closed Auto-Generate d Referral 10/24/2023 11/22/2024 1 1 [facility] for referral (narrative)* Diagnostic Procedure Only (Routine) - Pending Review Specialty Diagnoses / Procedures Referred By Contac t Referred To Contact [facility] Diagnoses Abnormal screening mammogram Procedures US BREAST LTD RIGHT US BREAST UNI REAL TIME WITH IMAGE LIMITED Temitope Acuna MD [address] [place] [address] [facility] [address] [place] [address] Referral ID Status Reason Start Date Expiration Date Visits Requested Visits Authorized [id number] Pending Review Auto-Generat ed Referral 11/12/2023 12/11/2024 1 1 * Diagnostic Procedure Only (Routine) - Pending Review Specialty Diagnoses / Procedures Referred By Abdulkadirac t Referred To Contact [facility] IM[facility]ING Diagnoses Abnormal screening mammogram Procedures LULU DIAGNOSTIC RIGHT DIAGNOSTIC MAMMOGRAPHY COMPUTER-AIDED DETCJ UNI Temitope Acuna MD [address] [place] [address] [facility] [address] [place] [address] Referral ID Status Reason Start Date Expiration Date Visits Requested Visits Authorized [id number] Pending Review Auto-Generat ed Referral 11/12/2023 12/11/2024 1 1 [facility] for referral (narrative)* Diagnostic Procedure Only (Routine) - Closed Specialty Diagnoses / Procedures Referred By Contac t Referred To Contact BR IMAGING Diagnoses Abnormal screening mammogram Procedures US BREAST LTD RIGHT US BREAST UNI REAL TIME WITH IMAGE LIMITED Temitope Acuna MD [address] [place] [address] [facility] [address] [place] [address] Referral ID Status Reason Start Date Expiration Date V isits Requested Visits Authorized [id number] Closed Auto-Generate d Referral 11/12/2023 12/11/2024 1 1 [facility] for referral (narrative)* Diagnostic Procedure Only (Urgent) - Closed Specialty Diagnoses / Procedures Referred By Contac t Referred To Contact US IMAGING Diagnoses Epigastric pain Nausea Procedures US ABD RIGHT UPPER QUADRANT US ABDOMINAL REAL TIME W/IMAGE LIMITED Adrianne Ignacio MD [address] [place] [address] [place] [address] Referral ID Status Reason Start Date Expiration Date V isits Requested Visits Authorized [id number] Closed Auto-Generate d Referral 12/25/2023 01/23/2025 1 1 [facility] for referral (narrative)* Diagnostic Procedure Only (Urgent) - Closed Specialty Diagnoses / Procedures Referred By Contac t Referred To Contact XR IMAGING Diagnoses Acute pain of right knee Procedures XR KNEE GENERAL 4V AP BOTH/PA BOTH/LAT/MERC RIGHT RADIOLOGIC EXAM KNEE COMPLETE 4/MORE VIEWS Tabatha Bradley, BLOCKLAYER.TRACK WATCHMAN [address] [place] [address] [place] [address] Referral ID Status Reason Start Date Expiration Date V isits Requested Visits Authorized [id number] Closed Auto-Generate d Referral 10/11/2022 11/10/2023 1 1 [facility] for referral (narrative)* Diagnostic Procedure Only (Urgent) - Closed Specialty Diagnoses / Procedures Referred By Abdulkadirac t Referred To Contact XR IMAGING Diagnoses Foot pain, right Procedures XR FOOT GENERAL 3V AP/LAT/OBL RIGHT RADEX FOOT COMPLETE MINIMUM 3 VIEWS Yanet Bacon APRN.CNP [address] [place] [address] [place] [address] Referral ID Status Reason Start Date Expiration Date V isits Requested Visits Authorized [id number] Closed Auto-Generate d Referral 11/21/2021 12/21/2022 1 1 [facility] for visit Narrative* Diagnostic Procedure Only (Routine) - Closed Specialty Diagnoses / Procedures [facility] To [facility] Diagnoses Encounter for screening mammogram for malignant neoplasm of breast Family history of malignant neoplasm of breast Procedures LULU SCREENING SCREENING MAMMOGRAPHY BI 2-VIEW BREAST INC CAD Temitope Acuna MD [address] [place] [address] Br Imaging [address] [place] [address] Referral ID Status Reason Start Date Expiration Date V isits Requested Visits Authorized [id number] Closed Auto-Generate d Referral 01/14/2023 02/13/2024 1 1 [facility] for visit Narrative* Diagnostic Procedure Only (Routine) - Closed Specialty Diagnoses / Procedures Referred By Contac t Referred To Contact BR IMAGING Diagnoses Abnormal screening mammogram Procedures LULU DIAGNOSTIC RIGHT DIAGNOSTIC MAMMOGRAPHY COMPUTER-AIDED DETCJ UNI Temitope Acuna MD [address] [place] [address] Br Imaging [address] [place] [address] Referral ID Status Reason Start Date Expiration Date V isits Requested Visits Authorized [id number] Closed Auto-Generate d Referral 11/12/2023 12/11/2024 1 1 [facility] for visit Narrative* Diagnostic Procedure Only (Routine) - Closed Specialty Diagnoses / Procedures Referred By Contac t Referred To Contact BR IMAGING Diagnoses Abnormal screening mammogram Procedures US BREAST LTD RIGHT US BREAST UNI REAL TIME WITH IMAGE LIMITED Temitope Acuna MD [address] [place] [address] Br Imaging [address] [place] [address] Referral ID Status Reason Start Date Expiration Date V isits Requested Visits Authorized [id number] Closed Auto-Generate d Referral 11/12/2023 12/11/2024 1 1 [facility] for visit Narrative* Diagnostic Procedure Only (Urgent) - Closed Specialty Diagnoses / Procedures Referred By Contac t Referred To Contact XR IMAGING Diagnoses Foot pain, left Procedures XR FOOT GENERAL 3V AP/LAT/OBL LEFT RADEX FOOT COMPLETE MINIMUM 3 VIEWS Ismael Alonzo BLOCKLAYER.TRACK WATCHMAN [address] [place] [address] [place] [id number] Referral ID Status Reason Start Date Expiration Date V isits Requested Visits Authorized [id number] Closed Auto-Generate d Referral 10/24/2023 11/22/2024 1 1 [facility] for visit Narrative* Diagnostic Procedure Only (Urgent) - Closed Specialty Diagnoses / Procedures Referred By Contac t Referred To Contact XR IMAGING Diagnoses Acute pain of right knee Procedures XR KNEE GENERAL 4V AP BOTH/PA BOTH/LAT/MERC RIGHT RADIOLOGIC EXAM KNEE COMPLETE 4/MORE VIEWS Tabatha Bradley, BLOCKLAYER.TRACK WATCHMAN [address] [place] [address] [place] [address] Referral ID Status Reason Start Date Expiration Date V isits Requested Visits Authorized [id number] Closed Auto-Generate d Referral 10/11/2022 11/10/2023 1 1 [facility] for visit Narrative* Diagnostic Procedure Only (Urgent) - Closed Specialty Diagnoses / Procedures Referred By Contac t Referred To Contact XR IMAGING Diagnoses Foot pain, right Procedures XR FOOT GENERAL 3V AP/LAT/OBL RIGHT RADEX FOOT COMPLETE MINIMUM 3 VIEWS Yanet Bacon, BLOCKLAYER.TRACK WATCHMAN [address] [place] [address] [place] [address] Referral ID Status Reason Start Date Expiration Date V isits Requested Visits Authorized [id number] Closed Auto-Generate d Referral 11/21/2021 12/21/2022 1 1 [facility] for visit Narrative* Diagnostic Procedure Only (Urgent) - Closed Specialty Diagnoses / Procedures Referred By Contac t Referred To Contact XR IMAGING Diagnoses Nausea Generalized abdominal pain Procedures XR ABDOMEN 1V SUPINE RADIOLOGIC EXAM ABDOMEN 1 VIEW PodlogarCristy APRN.TRACK WATCHMAN [address] [place] [address] Phone: tel: fax: [place] [address] Referral ID Status Reason Start Date Expiration Date V isits Requested Visits Authorized [id number] Closed Auto-Generate d Referral 10/26/2024 11/25/2025 1 1 [facility] for visit Narrative* Diagnostic Procedure Only (Routine) - Closed Specialty Diagnoses / Procedures Referred By Contac t Referred To Contact XR IMAGING Diagnoses Right knee pain, unspecified chronicity Procedures XR KNEE GENERAL 4V AP BOTH/PA BOTH/LAT/MERC RIGHT RADIOLOGIC EXAM KNEE COMPLETE 4/MORE VIEWS Ilana Dickens PA-C [address] [place] [address] Phone: tel: fax: [place] [id number] Referral ID Status Reason Start Date Expiration Date V isits Requested Visits Authorized [id number] Closed Auto-Generate d Referral 01/04/2025 01/31/2026 1 1 [facility] for visit Narrative* Diagnostic Procedure Only (Routine) - Closed Specialty Diagnoses / Procedures Referred By Contac t Referred To Contact BR IMAGING Diagnoses Encounter for screening mammogram for breast cancer Procedures LULU SCREENING W ELLIE SCREENING DIGITAL BREAST TOMOSYNTHESIS BI SCREENING MAMMOGRAPHY BI 2-VIEW BREAST INC Adrianne Paige MD [address] [place] [address] Phone: tel: fax: BR IMAGING [address] [place] [address] Referral ID Status Reason Start Date Expiration Date V isits Requested Visits Authorized [id number] Closed Auto-Generate d Referral 12/08/2024 01/07/2026 1 1 [facility] for visit Narrative* Outpatient Procedure (Routine) - Closed Specialty Diagnoses / Procedures Referred By Brian t Referred To Contact [facility] Diagnoses Nausea Generalized abdominal pain Other constipation Procedures COLONOSCOPY DIAGNOSTIC COLONOSCOPY FLX DX W/COLLJ SPEC WHEN PFRMD AdelaideDomitila lai, BLOCKLAYER.TRACK WATCHMAN [address] [place] [address] Phone: tel: fax: [facility] [address] [place] [address] Referral ID Status Reason Start Date Expiration Date V isits Requested Visits Authorized [id number] Closed Auto-Generate d Referral 11/06/2024 11/06/2025 1 1 [facility] for visit Narrative* Consult, Test, Treat (Routine) - Closed Specialty Diagnoses / Procedures Referred By Brian t Referred To Contact [facility]ology / [facility] Diagnoses Positive BONNIE (antinuclear antibody) Procedures OFFICE/OUTPATIENT [facility] 60 MINUTES AdelaideDomitila lai, BLOCKLAYER.TRACK WATCHMAN [address] [place] [address] Phone: tel: fax: [facility] [place] [address] [place] [address] Referral ID Status Reason Start Date Expiration Date V isits Requested Visits Authorized [id number] Closed PCP Requested Referral OON/Self Pay Override 06/24/2024 06/23/2025 1 1 [facility] for visit Narrative* Diagnostic Procedure Only (Routine) - Closed Specialty Diagnoses / Procedures Referred By Brian t Referred To Contact XR IMAGING Diagnoses Lordosis Postural kyphosis, unspecified spinal region Procedures XR LUMBAR LIMITED 2V AP/LAT RADEX SPINE LUMBOSACRAL 2/3 VIEWS Williams Barton MD [address] [facility], [address] [place] [address] Phone: tel: fax: XR IMAGING [place] [address] Referral ID Status Reason Start Date Expiration Date V isits Requested Visits Authorized [id number] Closed Auto-Generate d Referral 02/10/2025 03/12/2026 1 1 [facility] Diagnostic Procedure Only (Routine) - Closed Specialty Diagnoses / Procedures Referred By Brian turpin Referred To Contact XR IMAGING Diagnoses Chronic constipation Epigastric pain Bloating Procedures XR ABDOMEN 2V ROUTINE SUPINE W UPRIGHT/DECUB/CTL RADIOLOGIC EXAM ABDOMEN 2 VIEWS Shavon Lacey MD [address] [place] [address] Phone: tel: fax: [place] [address] Referral ID Status Reason Start Date Expiration Date V isits Requested Visits Authorized [id number] Closed Auto-Generate d Referral 02/16/2025 03/18/2026 1 1 [facility] Summary Purpose Family History No Family History Records FoundNo Family History Records FoundNo Family History Records FoundNo Family History Records FoundNo Family History Records Found Advance Directives No Advanced Directives Records Found Advance Directive Response Recorded Date/ Time Living Will No August 25, 2021 10:39am Power of Registered Vascular Technologist (Rvt) No August 25 10:39am Documents on File Type Date Recorded 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 Advance Directive(s) Advance Directive(s) 02/20/2021 6:30 AM Advance Directive(s) 02/01/2021 12:44 PM Advance Directive(s) 05/08/2019 11:45 AM Advance Directive(s) 04/29/2019 3:24 PM Advance Directive Response Recorded Date/ Time Living Will No February 05 8:56am Power of Registered Vascular Technologist (Rvt) No February 05 022 8:56am Advance Directive Response Recorded Date/ Time Living Will No June 17 022 10:30am Power of Registered Vascular Technologist (Rvt) No June 17, 2022 10:30am Advance Directive Response Recorded Date/ Time Living Will No November 26, 2022 1 0:47am Power of Registered Vascular Technologist (Rvt) No November 26, 2022 10:47am Advance Directive Response Recorded Date/ Time Living Will No February 24, 023 6:23pm Power of Registered Vascular Technologist (Rvt) No February 24, 2023 6:23pm Advance Directive Response Recorded Date/ Time Living Will No September 22, 2023 9:13pm Power of Registered Vascular Technologist (Rvt) No March 31st, 20 24 9:13pm Advance Directive Response Recorded Date/ Time Living Will No September 23, 2023 2:44am Power of Registered Vascular Technologist (Rvt) No September 22 2:44am Chief Complaint and Reason for Visit Chief Complaint FEELING EPILEPTIC Chief Complaint chest pain back/side pain Chief Complaint shortness of breath Chief Complaint shortness of breath nausea Chief Complaint nausea dizziness Chief Complaint dizziness back pain Chief Complaint DIAGNOSTIC LAOPSCOPY Reason for Visit Abnormal vaginal ble eding Abscess of female pelvis Chief Complaint DIAGNOSTIC LAOPSCOPY Reason for Visit Abnormal vaginal ble eding Abscess of female pelvis Dehiscence of vaginal cuff Post-operative state S/P hysterectomy Reason for Referral Specialty Diagnoses / Procedures Referred By Contac t Referred To Contact Podiatry Diagnoses Foot pain, right Procedures CONSULT TO PODIATRY OFFICE/OUTPATIENT [facility] 60-74 MINUTES Yanet Bacon, BLOCKLAYER.TRACK WATCHMAN [address] [place] [address] Referral ID Status Reason Start Date Expiration Date Visits Requested Visits Authorized [id number] Authorized PCP Requested Referral 11/21/2021 11/21/2022 1 1 Specialty Diagnoses / Procedures Referred By Contac t Referred To Contact XR IMAGING Diagnoses Foot pain, right Procedures XR FOOT GENERAL 3V AP/LAT/OBL RIGHT RADEX FOOT COMPLETE MINIMUM 3 VIEWS Yanet Bacon, BLOCKLAYER.TRACK WATCHMAN [address] [place] [address] Xr Imaging Referral ID Status Reason Start Date Expiration Date V isits Requested Visits Authorized [id number] Closed Auto-Generate d Referral 11/21/2021 12/21/2022 1 1 Specialty Diagnoses / Procedures Referred By Contac t Referred To Contact Diagnoses Seizure disorder (HCC) Sophia Barrios, BLOCKLAYER.TRACK WATCHMAN [address] [place] [address] Referral ID Status Reason Start Date Expiration Date Visits Re quested Visits Authorized [id number] Closed 1 1 Specialty Diagnoses / Procedures Referred By Contac t Referred To Contact MR IMAGING Diagnoses Paresthesia of skin Procedures MRA BRAIN WO IVCON MRA, [place] [address] [place] [address] Mr Imaging [id number] Referral ID Status Reason Start Date Expiration Date Visits Requested Visits Authorized [id number] Authorized Auto-Generat ed Referral 3 07/02/2024 1 1 Specialty Diagnoses / Procedures Referred By Contac t Referred To Contact MR IMAGING Diagnoses Intractable migraine with aura without status migrainosus Pulsatile tinnitus, right ear Procedures MRV BRAIN WO/W IVCON MRA; HEAD W & WO CONTRAST Bahntge, [place] [address] [place] [address] Mr Imaging [place] [address] Referral ID Status Reason Start Date Expiration Date Visits Requested Visits Authorized [id number] Authorized Auto-Generat ed Referral 3 07/02/2024 1 1 Specialty Diagnoses / Procedures Referred By Contac t Referred To Contact Diagnoses Focal epilepsy (HCC) Ella Jacobo PA-C [address] [place] [id number] Referral ID Status Reason Start Date Expiration Date V isits Requested Visits Authorized [id number] Authorized 08/09/2023 11/06/2023 1 1 Specialty Diagnoses / Procedures Referred By Contac t Referred To Contact [facility] Diagnoses Acute pain of right knee Procedures CONSULT TO PHYSICAL THERAPY PHYSICAL THERAPY EVALUATION HIGH COMPLEX 45 MINS Dennise Gonzalez DO [address] [place] [address] [facility] [place] [address] [place] [address] Referral ID Status Reason Start Date Expiration Date Visits Requested Visits Authorized [id number] Authorized Auto-Generat ed Referral 06/24/2023 06/23/2024 30 30 Specialty Diagnoses / Procedures Referred By Contac t Referred To Contact Diagnoses Focal epilepsy (HCC) Kenrick Zaidi PA-C [address] [place] [address] Referral ID Status Reason Start Date Expiration Date V isits Requested Visits Authorized [id number] Authorized 12/04/2023 12/02/2024 1 1 Specialty Diagnoses / Procedures Referred By Contac t Referred To Contact Diagnoses Partial symptomatic epilepsy with complex partial seizures, intractable, without status epilepticus (HCC) Kenrick Zaidi PA-C [address] [place] [address] Referral ID Status Reason Start Date Expiration Date V isits Requested Visits Authorized [id number] Authorized 12/04/2023 12/02/2024 1 1 Specialty Diagnoses / Procedures Referred By Contac t Referred To Contact Dermatology Diagnoses Psoriasis of scalp Atopic dermatitis of scalp Procedures CONSULT TO DERMATOLOGY Adrianne Ignacio MD [address] [place] [address] Referral ID Status Reason Start Date Expiration Date Visits Requested Visits Authorized [id number] Ref Not Required PCP Requested Referral 12/25/2023 12/24/2024 1 1 Specialty Diagnoses / Procedures Referred By Contac t Referred To Contact US IMAGING Diagnoses Epigastric pain Nausea Procedures US ABD RIGHT UPPER QUADRANT US ABDOMINAL REAL TIME W/IMAGE LIMITED Adrianne Ignacio MD [address] [place] [address] Us Imaging [id number] Referral ID Status Reason Start Date Expiration Date Visits Requested Visits Authorized [id number] Authorized Auto-Generat ed Referral 12/25/2023 01/23/2025 1 1 Specialty Diagnoses / Procedures Referred By Contac t Referred To Contact General Surgery Diagnoses Epigastric pain Nausea Procedures CONSULT TO GENERAL SURGERY OFFICE/OUTPATIENT [facility] MDM 60 MINUTES Adrianne Ignacio MD [address] [place] [address] Referral ID Status Reason Start Date Expiration Date Visits Requested Visits Authorized [id number] Authorized PCP Requested Referral 01/08/2024 01/07/2025 1 1 Specialty Diagnoses / Procedures Referred By Contac t Referred To Contact MR IMAGING Diagnoses Liver lesion Procedures MRI LIVER WO/W IVCON MRI ABDOMEN W/O & W/CONTRAST MATERIAL Adrianne Ignacio MD [facility] [place] [address] [place] [address] Referral ID Status Reason Start Date Expiration Date Visits Requested Visits Authorized [id number] Authorized Auto-Generat ed Referral 01/08/2024 02/06/2025 1 1 Specialty Diagnoses / Procedures Referred By Contac t Referred To Contact MR IMAGING Diagnoses Acute pain of right knee Chondromalacia of right patella Tear of medial meniscus of right knee, current, unspecified tear type, initial encounter Procedures MRI KNEE WO IVCON RIGHT MRI ANY JT LOWER EXTREM W/O CONTRAST Dennise Tanner DO [address] [place] [address] Mr Imaging [place] [address] Referral ID Status Reason Start Date Expiration Date Visits Requested Visits Authorized [id number] Authorized Auto-Generat ed Referral 01/23/2024 02/21/2025 1 1 Referral ID Status Reason Start Date Expiration Date V isits Requested Visits Authorized [id number] Closed Auto-Generate d Referral 01/08/2024 02/06/2025 1 1 Specialty Diagnoses / Procedures Referred By Contac t Referred To Contact Diagnoses Migraine without aura and with status migrainosus, not intractable Martine Marinelli, BLOCKLAYER.TRACK WATCHMAN [address] [place] [address] Referral ID Status Reason Start Date Expiration Date V isits Requested Visits Authorized [id number] Pending Review 1 1 Referral ID Status Reason Start Date Expiration Date V isits Requested Visits Authorized [id number] Pending Review 05/22/2024 07/21/2024 1 1 Referral ID Status Reason Start Date Expiration Date V isits Requested Visits Authorized [id number] Pending Review 05/25/2024 07/24/2024 1 1 Specialty Diagnoses / Procedures Referred By Contac t Referred To Contact Dermatology Diagnoses Tinea corporis Skin rash Procedures CONSULT TO DERMATOLOGY Jeffy Mathews APRN.CNM [address] [place] [address] Referral ID Status Reason Start Date Expiration Date Visits Requested Visits Authorized [id number] Authorized PCP Requested Referral 07/16/2024 07/16/2025 1 1 Health Concerns Infection Onset Date Last Indicated Resolved Time COVID-19 Rule-Out 08/15/2022 08/15/2022 Infection Onset Date Last Indicated Resolved Time COVID-19 Rule-Out 07/31/2022 07/31/2022 07/31/2022 1:27 AM EST COVID-19 Rule-Out 08/15/2022 08/15/2022 08/16/2022 5:18 AM EST Infection Onset Date Last Indicated Resolved Time COVID-19 Rule-Out 02/12/2023 02/12/2023 02/12/2023 7:23 PM EDT Medications Administered Section Inactive Administered Medications - up to 3 most recent administrations Medication Order MAR Action Action Date Dose Rate Site iron sucrose 200 mg in NaCl 0.9% 100ml (VENOFER) 200 mg, INTRAVENOUS, at 400 mL/hr, Administer over 15 Minutes, ONCE, 1 dose, On Sadia 12/13/22 at 1530, Please conduct a 30 minute post dose observation. New Bag/Syringe/Bottle 12/13/2022 3:25 PM EDT 200 mg 400 mL/hr Inactive Administered Medications - up to 3 most recent administrations Medication Order MAR Action Action Date Dose Rate Site iron sucrose 200 mg in NaCl 0.9% 100ml (VENOFER) 200 mg, INTRAVENOUS, at 400 mL/hr, Administer over 15 Minutes, ONCE, 1 dose, On Sat12/17/22 at 1400, Please conduct a 30 minute post dose observation. New Bag/Syringe/Bottle 12/17/2022 2:10 PM EDT 200 mg 400 mL/hr Inactive Administered Medications - up to 3 most recent administrations Medication Order MAR Action Action Date Dose Rate Site iron sucrose 200 mg in NaCl 0.9% 100ml (VENOFER) 200 mg, INTRAVENOUS, at 400 mL/hr, Administer over 15 Minutes, ONCE, 1 dose, On Sat12/19/22 at 1530, Please conduct a 30 minute post dose observation. Approximate total volume Expiration: 12/20/22 1800 New Bag/Syringe/Bottle 12/19/2022 3:25 PM EDT 200 mg 400 mL/hr Inactive Administered Medications - up to 3 most recent administrations Medication Order MAR Action Action Date Dose Rate Site iron sucrose 200 mg in NaCl 0.9% 100ml (VENOFER) 200 mg, INTRAVENOUS, at 400 mL/hr, Administer over 15 Minutes, ONCE, 1 dose, On Sat12/21/22 at 1500, Please conduct a 30 minute post dose observation. New Bag/Syringe/Bottle 12/21/2022 3:05 PM EDT 200 mg 400 mL/hr Inactive Administered Medications - up to 3 most recent administrations Medication Order MAR Action Action Date Dose Rate Site iron sucrose 200 mg in NaCl 0.9% 100ml (VENOFER) 200 mg, INTRAVENOUS, at 400 mL/hr, Administer over 15 Minutes, ONCE, 1 dose, On Sat12/24/22 at 1400, Please conduct a 30 minute post dose observation. New Bag/Syringe/Bottle 12/24/2022 2:09 PM EDT 200 mg 400 mL/hr Inactive Administered Medications - up to 3 most recent administrations Medication Order MAR Action Action Date Dose Rate Site iron sucrose 200 mg in NaCl 0.9% 100 mL (VENOFER) 200 mg, INTRAVENOUS, at 400 mL/hr, Administer over 15 Minutes, ONCE, 1 dose, On Sat12/31/22 at 1030 New Bag/Syringe/Bottle 12/31/2022 10:47 AM EDT 200 mg 400 mL/hr Inactive Administered Medications - up to 3 most recent administrations Medication Order MAR Action Action Date Dose Rate Site iron sucrose 200 mg in NaCl 0.9% 100ml (VENOFER) 200 mg, INTRAVENOUS, at 400 mL/hr, Administer over 15 Minutes, ONCE, 1 dose, On Sat01/02/23 at 1500, Please conduct a 30 minute post dose observation. New Bag/Syringe/Bottle 01/02/2023 3:04 PM EDT 200 mg 400 mL/hr Inactive Administered Medications - up to 3 most recent administrations Medication Order MAR Action Action Date Dose Rate Site iron sucrose 200 mg in NaCl 0.9% 100ml (VENOFER) 200 mg, INTRAVENOUS, at 400 mL/hr, Administer over 15 Minutes, ONCE, 1 dose, On Sat01/08/23 at 1530, Please conduct a 30 minute post dose observation. New Bag/Syringe/Bottle 01/08/2023 3:37 PM EDT 200 mg 400 mL/hr Additional Source Comments INFORMATION SOURCE (unrecogn ized section and content) DATE CREATED AUTHOR 07/23/2020 [facility] DATE CREATED AUTHOR AUTHOR'S ORGANIZ ATION 08/24/2024 [facility] DATE CREATED AUTHOR AUTHOR'S ORGANIZ ATION 01/12/2025 [facility] DATE CREATED AUTHOR AUTHOR'S ORGANIZ ATION 01/16/2025 [facility] DATE CREATED AUTHOR AUTHOR'S ORGANIZ ATION 03/11/2025 [facility] Goals (unrecognized section and content) Goals may be documented in a n alternate sectionGoals may be documented in an alternate sectionGoals may be documented in an alternate sectionGoals may be documented in an alternate sectionGoals may be documented in an alternate sectionGoals may be documented in an alternate sectionGoals may be documented in an alternate section Source Comments (unrecognize d section and content) In the event this informatio n is protected by the Federal Confidentiality of Alcohol and Drug Abuse Patient Records regulations: The Federal rules restrict any use of the information to criminally investigate or prosecute any alcohol or drug abuse patient.[facility] the event this information is protected by the Federal Confidentiality of Alcohol and Drug Abuse Patient Records regulations: The Federal rules restrict any use of the information to criminally investigate or prosecute any alcohol or drug abuse patient.[facility] Center[facility] the event this information is protected by the Federal Confidentiality of Alcohol and Drug Abuse Patient Records regulations: The Federal rules restrict any use of the information to criminally investigate or prosecute any alcohol or drug abuse patient.[facility] Center[facility] the event this information is protected by the Federal Confidentiality of Alcohol and Drug Abuse Patient Records regulations: The Federal rules restrict any use of the information to criminally investigate or prosecute any alcohol or drug abuse patient.[facility] Center[facility] the event this information is protected by the Federal Confidentiality of Alcohol and Drug Abuse Patient Records regulations: The Federal rules restrict any use of the information to criminally investigate or prosecute any alcohol or drug abuse patient.[facility] Center[facility] the event this information is protected by the Federal Confidentiality of Alcohol and Drug Abuse Patient Records regulations: The Federal rules restrict any use of the information to criminally investigate or prosecute any alcohol or drug abuse patient.[facility] CenterIn the event this information is protected by the Federal Confidentiality of Alcohol and Drug Abuse Patient Records regulations: The Federal rules restrict any use of the information to criminally investigate or prosecute any alcohol or drug abuse patient.[facility] Center[facility] the event this information is protected by the Federal Confidentiality of Alcohol and Drug Abuse Patient Records regulations: The Federal rules restrict any use of the information to criminally investigate or prosecute any alcohol or drug abuse patient.[facility] CenterIn the event this information is protected by the Federal Confidentiality of Alcohol and Drug Abuse Patient Records regulations: The Federal rules restrict any use of the information to criminally investigate or prosecute any alcohol or drug abuse patient.[facility] CenterIn the event this information is protected by the Federal Confidentiality of Alcohol and Drug Abuse Patient Records regulations: The Federal rules restrict any use of the information to criminally investigate or prosecute any alcohol or drug abuse patient.[facility] CenterIn the event this information is protected by the Federal Confidentiality of Alcohol and Drug Abuse Patient Records regulations: The Federal rules restrict any use of the information to criminally investigate or prosecute any alcohol or drug abuse patient.[facility] CenterIn the event this information is protected by the Federal Confidentiality of Alcohol and Drug Abuse Patient Records regulations: The Federal rules restrict any use of the information to criminally investigate or prosecute any alcohol or drug abuse patient.[facility] CenterIn the event this information is protected by the Federal Confidentiality of Alcohol and Drug Abuse Patient Records regulations: The Federal rules restrict any use of the information to criminally investigate or prosecute any alcohol or drug abuse patient.[facility] CenterIn the event this information is protected by the Federal Confidentiality of Alcohol and Drug Abuse Patient Records regulations: The Federal rules restrict any use of the information to criminally investigate or prosecute any alcohol or drug abuse patient.[facility] CenterIn the event this information is protected by the Federal Confidentiality of Alcohol and Drug Abuse Patient Records regulations: The Federal rules restrict any use of the information to criminally investigate or prosecute any alcohol or drug abuse patient.[facility] CenterIn the event this information is protected by the Federal Confidentiality of Alcohol and Drug Abuse Patient Records regulations: The Federal rules restrict any use of the information to criminally investigate or prosecute any alcohol or drug abuse patient.[facility] CenterIn the event this information is protected by the Federal Confidentiality of Alcohol and Drug Abuse Patient Records regulations: The Federal rules restrict any use of the information to criminally investigate or prosecute any alcohol or drug abuse patient.[facility] CenterIn the event this information is protected by the Federal Confidentiality of Alcohol and Drug Abuse Patient Records regulations: The Federal rules restrict any use of the information to criminally investigate or prosecute any alcohol or drug abuse patient.[facility] CenterIn the event this information is protected by the Federal Confidentiality of Alcohol and Drug Abuse Patient Records regulations: The Federal rules restrict any use of the information to criminally investigate or prosecute any alcohol or drug abuse patient.[facility] CenterIn the event this information is protected by the Federal Confidentiality of Alcohol and Drug Abuse Patient Records regulations: The Federal rules restrict any use of the information to criminally investigate or prosecute any alcohol or drug abuse patient.[facility] CenterIn the event this information is protected by the Federal Confidentiality of Alcohol and Drug Abuse Patient Records regulations: The Federal rules restrict any use of the information to criminally investigate or prosecute any alcohol or drug abuse patient.[facility] CenterIn the event this information is protected by the Federal Confidentiality of Alcohol and Drug Abuse Patient Records regulations: The Federal rules restrict any use of the information to criminally investigate or prosecute any alcohol or drug abuse patient.[facility] CenterIn the event this information is protected by the Federal Confidentiality of Alcohol and Drug Abuse Patient Records regulations: The Federal rules restrict any use of the information to criminally investigate or prosecute any alcohol or drug abuse patient.[facility] CenterIn the event this information is protected by the Federal Confidentiality of Alcohol and Drug Abuse Patient Records regulations: The Federal rules restrict any use of the information to criminally investigate or prosecute any alcohol or drug abuse patient.[facility] CenterIn the event this information is protected by the Federal Confidentiality of Alcohol and Drug Abuse Patient Records regulations: The Federal rules restrict any use of the information to criminally investigate or prosecute any alcohol or drug abuse patient.[facility] CenterIn the event this information is protected by the Federal Confidentiality of Alcohol and Drug Abuse Patient Records regulations: The Federal rules restrict any use of the information to criminally investigate or prosecute any alcohol or drug abuse patient.[facility] CenterIn the event this information is protected by the Federal Confidentiality of Alcohol and Drug Abuse Patient Records regulations: The Federal rules restrict any use of the information to criminally investigate or prosecute any alcohol or drug abuse patient.[facility] CenterIn the event this information is protected by the Federal Confidentiality of Alcohol and Drug Abuse Patient Records regulations: The Federal rules restrict any use of the information to criminally investigate or prosecute any alcohol or drug abuse patient.[facility] CenterIn the event this information is protected by the Federal Confidentiality of Alcohol and Drug Abuse Patient Records regulations: The Federal rules restrict any use of the information to criminally investigate or prosecute any alcohol or drug abuse patient.[facility] CenterIn the event this information is protected by the Federal Confidentiality of Alcohol and Drug Abuse Patient Records regulations: The Federal rules restrict any use of the information to criminally investigate or prosecute any alcohol or drug abuse patient.[facility] CenterIn the event this information is protected by the Federal Confidentiality of Alcohol and Drug Abuse Patient Records regulations: The Federal rules restrict any use of the information to criminally investigate or prosecute any alcohol or drug abuse patient.[facility] CenterIn the event this information is protected by the Federal Confidentiality of Alcohol and Drug Abuse Patient Records regulations: The Federal rules restrict any use of the information to criminally investigate or prosecute any alcohol or drug abuse patient.[facility] CenterIn the event this information is protected by the Federal Confidentiality of Alcohol and Drug Abuse Patient Records regulations: The Federal rules restrict any use of the information to criminally investigate or prosecute any alcohol or drug abuse patient.[facility] CenterIn the event this information is protected by the Federal Confidentiality of Alcohol and Drug Abuse Patient Records regulations: The Federal rules restrict any use of the information to criminally investigate or prosecute any alcohol or drug abuse patient.[facility] CenterIn the event this information is protected by the Federal Confidentiality of Alcohol and Drug Abuse Patient Records regulations: The Federal rules restrict any use of the information to criminally investigate or prosecute any alcohol or drug abuse patient.[facility] CenterIn the event this information is protected by the Federal Confidentiality of Alcohol and Drug Abuse Patient Records regulations: The Federal rules restrict any use of the information to criminally investigate or prosecute any alcohol or drug abuse patient.[facility] CenterIn the event this information is protected by the Federal Confidentiality of Alcohol and Drug Abuse Patient Records regulations: The Federal rules restrict any use of the information to criminally investigate or prosecute any alcohol or drug abuse patient.[facility] CenterIn the event this information is protected by the Federal Confidentiality of Alcohol and Drug Abuse Patient Records regulations: The Federal rules restrict any use of the information to criminally investigate or prosecute any alcohol or drug abuse patient.[facility] CenterIn the event this information is protected by the Federal Confidentiality of Alcohol and Drug Abuse Patient Records regulations: The Federal rules restrict any use of the information to criminally investigate or prosecute any alcohol or drug abuse patient.[facility] CenterIn the event this information is protected by the Federal Confidentiality of Alcohol and Drug Abuse Patient Records regulations: The Federal rules restrict any use of the information to criminally investigate or prosecute any alcohol or drug abuse patient.[facility] CenterIn the event this information is protected by the Federal Confidentiality of Alcohol and Drug Abuse Patient Records regulations: The Federal rules restrict any use of the information to criminally investigate or prosecute any alcohol or drug abuse patient.[facility] CenterIn the event this information is protected by the Federal Confidentiality of Alcohol and Drug Abuse Patient Records regulations: The Federal rules restrict any use of the information to criminally investigate or prosecute any alcohol or drug abuse patient.[facility] CenterIn the event this information is protected by the Federal Confidentiality of Alcohol and Drug Abuse Patient Records regulations: The Federal rules restrict any use of the information to criminally investigate or prosecute any alcohol or drug abuse patient.[facility] CenterIn the event this information is protected by the Federal Confidentiality of Alcohol and Drug Abuse Patient Records regulations: The Federal rules restrict any use of the information to criminally investigate or prosecute any alcohol or drug abuse patient.[facility] CenterIn the event this information is protected by the Federal Confidentiality of Alcohol and Drug Abuse Patient Records regulations: The Federal rules restrict any use of the information to criminally investigate or prosecute any alcohol or drug abuse patient.[facility] CenterIn the event this information is protected by the Federal Confidentiality of Alcohol and Drug Abuse Patient Records regulations: The Federal rules restrict any use of the information to criminally investigate or prosecute any alcohol or drug abuse patient.[facility] CenterIn the event this information is protected by the Federal Confidentiality of Alcohol and Drug Abuse Patient Records regulations: The Federal rules restrict any use of the information to criminally investigate or prosecute any alcohol or drug abuse patient.[facility] CenterIn the event this information is protected by the Federal Confidentiality of Alcohol and Drug Abuse Patient Records regulations: The Federal rules restrict any use of the information to criminally investigate or prosecute any alcohol or drug abuse patient.[facility] CenterIn the event this information is protected by the Federal Confidentiality of Alcohol and Drug Abuse Patient Records regulations: The Federal rules restrict any use of the information to criminally investigate or prosecute any alcohol or drug abuse patient.[facility] CenterIn the event this information is protected by the Federal Confidentiality of Alcohol and Drug Abuse Patient Records regulations: The Federal rules restrict any use of the information to criminally investigate or prosecute any alcohol or drug abuse patient.[facility] CenterIn the event this information is protected by the Federal Confidentiality of Alcohol and Drug Abuse Patient Records regulations: The Federal rules restrict any use of the information to criminally investigate or prosecute any alcohol or drug abuse patient.[facility] CenterIn the event this information is protected by the Federal Confidentiality of Alcohol and Drug Abuse Patient Records regulations: The Federal rules restrict any use of the information to criminally investigate or prosecute any alcohol or drug abuse patient.[facility] CenterIn the event this information is protected by the Federal Confidentiality of Alcohol and Drug Abuse Patient Records regulations: The Federal rules restrict any use of the information to criminally investigate or prosecute any alcohol or drug abuse patient.[facility] CenterIn the event this information is protected by the Federal Confidentiality of Alcohol and Drug Abuse Patient Records regulations: The Federal rules restrict any use of the information to criminally investigate or prosecute any alcohol or drug abuse patient.[facility] CenterIn the event this information is protected by the Federal Confidentiality of Alcohol and Drug Abuse Patient Records regulations: The Federal rules restrict any use of the information to criminally investigate or prosecute any alcohol or drug abuse patient.[facility] CenterIn the event this information is protected by the Federal Confidentiality of Alcohol and Drug Abuse Patient Records regulations: The Federal rules restrict any use of the information to criminally investigate or prosecute any alcohol or drug abuse patient.[facility] CenterIn the event this information is protected by the Federal Confidentiality of Alcohol and Drug Abuse Patient Records regulations: The Federal rules restrict any use of the information to criminally investigate or prosecute any alcohol or drug abuse patient.[facility] CenterIn the event this information is protected by the Federal Confidentiality of Alcohol and Drug Abuse Patient Records regulations: The Federal rules restrict any use of the information to criminally investigate or prosecute any alcohol or drug abuse patient.[facility] CenterIn the event this information is protected by the Federal Confidentiality of Alcohol and Drug Abuse Patient Records regulations: The Federal rules restrict any use of the information to criminally investigate or prosecute any alcohol or drug abuse patient.[facility] CenterIn the event this information is protected by the Federal Confidentiality of Alcohol and Drug Abuse Patient Records regulations: The Federal rules restrict any use of the information to criminally investigate or prosecute any alcohol or drug abuse patient.[facility] CenterIn the event this information is protected by the Federal Confidentiality of Alcohol and Drug Abuse Patient Records regulations: The Federal rules restrict any use of the information to criminally investigate or prosecute any alcohol or drug abuse patient.[facility] CenterIn the event this information is protected by the Federal Confidentiality of Alcohol and Drug Abuse Patient Records regulations: The Federal rules restrict any use of the information to criminally investigate or prosecute any alcohol or drug abuse patient.[facility] CenterIn the event this information is protected by the Federal Confidentiality of Alcohol and Drug Abuse Patient Records regulations: The Federal rules restrict any use of the information to criminally investigate or prosecute any alcohol or drug abuse patient.[facility] CenterIn the event this information is protected by the Federal Confidentiality of Alcohol and Drug Abuse Patient Records regulations: The Federal rules restrict any use of the information to criminally investigate or prosecute any alcohol or drug abuse patient.[facility] CenterIn the event this information is protected by the Federal Confidentiality of Alcohol and Drug Abuse Patient Records regulations: The Federal rules restrict any use of the information to criminally investigate or prosecute any alcohol or drug abuse patient.[facility] CenterIn the event this information is protected by the Federal Confidentiality of Alcohol and Drug Abuse Patient Records regulations: The Federal rules restrict any use of the information to criminally investigate or prosecute any alcohol or drug abuse patient.[facility] CenterIn the event this information is protected by the Federal Confidentiality of Alcohol and Drug Abuse Patient Records regulations: The Federal rules restrict any use of the information to criminally investigate or prosecute any alcohol or drug abuse patient.[facility] CenterIn the event this information is protected by the Federal Confidentiality of Alcohol and Drug Abuse Patient Records regulations: The Federal rules restrict any use of the information to criminally investigate or prosecute any alcohol or drug abuse patient.[facility] CenterIn the event this information is protected by the Federal Confidentiality of Alcohol and Drug Abuse Patient Records regulations: The Federal rules restrict any use of the information to criminally investigate or prosecute any alcohol or drug abuse patient.[facility] CenterIn the event this information is protected by the Federal Confidentiality of Alcohol and Drug Abuse Patient Records regulations: The Federal rules restrict any use of the information to criminally investigate or prosecute any alcohol or drug abuse patient.[facility] CenterIn the event this information is protected by the Federal Confidentiality of Alcohol and Drug Abuse Patient Records regulations: The Federal rules restrict any use of the information to criminally investigate or prosecute any alcohol or drug abuse patient.[facility] CenterIn the event this information is protected by the Federal Confidentiality of Alcohol and Drug Abuse Patient Records regulations: The Federal rules restrict any use of the information to criminally investigate or prosecute any alcohol or drug abuse patient.[facility] CenterIn the event this information is protected by the Federal Confidentiality of Alcohol and Drug Abuse Patient Records regulations: The Federal rules restrict any use of the information to criminally investigate or prosecute any alcohol or drug abuse patient.[facility] CenterIn the event this information is protected by the Federal Confidentiality of Alcohol and Drug Abuse Patient Records regulations: The Federal rules restrict any use of the information to criminally investigate or prosecute any alcohol or drug abuse patient.[facility] CenterIn the event this information is protected by the Federal Confidentiality of Alcohol and Drug Abuse Patient Records regulations: The Federal rules restrict any use of the information to criminally investigate or prosecute any alcohol or drug abuse patient.[facility] CenterIn the event this information is protected by the Federal Confidentiality of Alcohol and Drug Abuse Patient Records regulations: The Federal rules restrict any use of the information to criminally investigate or prosecute any alcohol or drug abuse patient.[facility] CenterIn the event this information is protected by the Federal Confidentiality of Alcohol and Drug Abuse Patient Records regulations: The Federal rules restrict any use of the information to criminally investigate or prosecute any alcohol or drug abuse patient.[facility] CenterIn the event this information is protected by the Federal Confidentiality of Alcohol and Drug Abuse Patient Records regulations: The Federal rules restrict any use of the information to criminally investigate or prosecute any alcohol or drug abuse patient.[facility] CenterIn the event this information is protected by the Federal Confidentiality of Alcohol and Drug Abuse Patient Records regulations: The Federal rules restrict any use of the information to criminally investigate or prosecute any alcohol or drug abuse patient.[facility] CenterIn the event this information is protected by the Federal Confidentiality of Alcohol and Drug Abuse Patient Records regulations: The Federal rules restrict any use of the information to criminally investigate or prosecute any alcohol or drug abuse patient.[facility] CenterIn the event this information is protected by the Federal Confidentiality of Alcohol and Drug Abuse Patient Records regulations: The Federal rules restrict any use of the information to criminally investigate or prosecute any alcohol or drug abuse patient.[facility] CenterIn the event this information is protected by the Federal Confidentiality of Alcohol and Drug Abuse Patient Records regulations: The Federal rules restrict any use of the information to criminally investigate or prosecute any alcohol or drug abuse patient.[facility] CenterIn the event this information is protected by the Federal Confidentiality of Alcohol and Drug Abuse Patient Records regulations: The Federal rules restrict any use of the information to criminally investigate or prosecute any alcohol or drug abuse patient.[facility] CenterIn the event this information is protected by the Federal Confidentiality of Alcohol and Drug Abuse Patient Records regulations: The Federal rules restrict any use of the information to criminally investigate or prosecute any alcohol or drug abuse patient.[facility] CenterIn the event this information is protected by the Federal Confidentiality of Alcohol and Drug Abuse Patient Records regulations: The Federal rules restrict any use of the information to criminally investigate or prosecute any alcohol or drug abuse patient.[facility] CenterIn the event this information is protected by the Federal Confidentiality of Alcohol and Drug Abuse Patient Records regulations: The Federal rules restrict any use of the information to criminally investigate or prosecute any alcohol or drug abuse patient.[facility] CenterIn the event this information is protected by the Federal Confidentiality of Alcohol and Drug Abuse Patient Records regulations: The Federal rules restrict any use of the information to criminally investigate or prosecute any alcohol or drug abuse patient.[facility] CenterIn the event this information is protected by the Federal Confidentiality of Alcohol and Drug Abuse Patient Records regulations: The Federal rules restrict any use of the information to criminally investigate or prosecute any alcohol or drug abuse patient.[facility] CenterIn the event this information is protected by the Federal Confidentiality of Alcohol and Drug Abuse Patient Records regulations: The Federal rules restrict any use of the information to criminally investigate or prosecute any alcohol or drug abuse patient.[facility] CenterIn the event this information is protected by the Federal Confidentiality of Alcohol and Drug Abuse Patient Records regulations: The Federal rules restrict any use of the information to criminally investigate or prosecute any alcohol or drug abuse patient.[facility] CenterIn the event this information is protected by the Federal Confidentiality of Alcohol and Drug Abuse Patient Records regulations: The Federal rules restrict any use of the information to criminally investigate or prosecute any alcohol or drug abuse patient.[facility] CenterIn the event this information is protected by the Federal Confidentiality of Alcohol and Drug Abuse Patient Records regulations: The Federal rules restrict any use of the information to criminally investigate or prosecute any alcohol or drug abuse patient.[facility] CenterIn the event this information is protected by the Federal Confidentiality of Alcohol and Drug Abuse Patient Records regulations: The Federal rules restrict any use of the information to criminally investigate or prosecute any alcohol or drug abuse patient.[facility] CenterIn the event this information is protected by the Federal Confidentiality of Alcohol and Drug Abuse Patient Records regulations: The Federal rules restrict any use of the information to criminally investigate or prosecute any alcohol or drug abuse patient.[facility] CenterIn the event this information is protected by the Federal Confidentiality of Alcohol and Drug Abuse Patient Records regulations: The Federal rules restrict any use of the information to criminally investigate or prosecute any alcohol or drug abuse patient.[facility] CenterIn the event this information is protected by the Federal Confidentiality of Alcohol and Drug Abuse Patient Records regulations: The Federal rules restrict any use of the information to criminally investigate or prosecute any alcohol or drug abuse patient.[facility] CenterIn the event this information is protected by the Federal Confidentiality of Alcohol and Drug Abuse Patient Records regulations: The Federal rules restrict any use of the information to criminally investigate or prosecute any alcohol or drug abuse patient.[facility] CenterIn the event this information is protected by the Federal Confidentiality of Alcohol and Drug Abuse Patient Records regulations: The Federal rules restrict any use of the information to criminally investigate or prosecute any alcohol or drug abuse patient.[facility] CenterIn the event this information is protected by the Federal Confidentiality of Alcohol and Drug Abuse Patient Records regulations: The Federal rules restrict any use of the information to criminally investigate or prosecute any alcohol or drug abuse patient.[facility] CenterIn the event this information is protected by the Federal Confidentiality of Alcohol and Drug Abuse Patient Records regulations: The Federal rules restrict any use of the information to criminally investigate or prosecute any alcohol or drug abuse patient.[facility] CenterIn the event this information is protected by the Federal Confidentiality of Alcohol and Drug Abuse Patient Records regulations: The Federal rules restrict any use of the information to criminally investigate or prosecute any alcohol or drug abuse patient.[facility] CenterIn the event this information is protected by the Federal Confidentiality of Alcohol and Drug Abuse Patient Records regulations: The Federal rules restrict any use of the information to criminally investigate or prosecute any alcohol or drug abuse patient.[facility] CenterIn the event this information is protected by the Federal Confidentiality of Alcohol and Drug Abuse Patient Records regulations: The Federal rules restrict any use of the information to criminally investigate or prosecute any alcohol or drug abuse patient.[facility] CenterIn the event this information is protected by the Federal Confidentiality of Alcohol and Drug Abuse Patient Records regulations: The Federal rules restrict any use of the information to criminally investigate or prosecute any alcohol or drug abuse patient.[facility] CenterIn the event this information is protected by the Federal Confidentiality of Alcohol and Drug Abuse Patient Records regulations: The Federal rules restrict any use of the information to criminally investigate or prosecute any alcohol or drug abuse patient.[facility] CenterIn the event this information is protected by the Federal Confidentiality of Alcohol and Drug Abuse Patient Records regulations: The Federal rules restrict any use of the information to criminally investigate or prosecute any alcohol or drug abuse patient.[facility] CenterIn the event this information is protected by the Federal Confidentiality of Alcohol and Drug Abuse Patient Records regulations: The Federal rules restrict any use of the information to criminally investigate or prosecute any alcohol or drug abuse patient.[facility] CenterIn the event this information is protected by the Federal Confidentiality of Alcohol and Drug Abuse Patient Records regulations: The Federal rules restrict any use of the information to criminally investigate or prosecute any alcohol or drug abuse patient.[facility] CenterIn the event this information is protected by the Federal Confidentiality of Alcohol and Drug Abuse Patient Records regulations: The Federal rules restrict any use of the information to criminally investigate or prosecute any alcohol or drug abuse patient.[facility] CenterIn the event this information is protected by the Federal Confidentiality of Alcohol and Drug Abuse Patient Records regulations: The Federal rules restrict any use of the information to criminally investigate or prosecute any alcohol or drug abuse patient.[facility] CenterIn the event this information is protected by the Federal Confidentiality of Alcohol and Drug Abuse Patient Records regulations: The Federal rules restrict any use of the information to criminally investigate or prosecute any alcohol or drug abuse patient.[facility] CenterIn the event this information is protected by the Federal Confidentiality of Alcohol and Drug Abuse Patient Records regulations: The Federal rules restrict any use of the information to criminally investigate or prosecute any alcohol or drug abuse patient.[facility] CenterIn the event this information is protected by the Federal Confidentiality of Alcohol and Drug Abuse Patient Records regulations: The Federal rules restrict any use of the information to criminally investigate or prosecute any alcohol or drug abuse patient.[facility] CenterIn the event this information is protected by the Federal Confidentiality of Alcohol and Drug Abuse Patient Records regulations: The Federal rules restrict any use of the information to criminally investigate or prosecute any alcohol or drug abuse patient.[facility] CenterIn the event this information is protected by the Federal Confidentiality of Alcohol and Drug Abuse Patient Records regulations: The Federal rules restrict any use of the information to criminally investigate or prosecute any alcohol or drug abuse patient.[facility] CenterIn the event this information is protected by the Federal Confidentiality of Alcohol and Drug Abuse Patient Records regulations: The Federal rules restrict any use of the information to criminally investigate or prosecute any alcohol or drug abuse patient.[facility] CenterIn the event this information is protected by the Federal Confidentiality of Alcohol and Drug Abuse Patient Records regulations: The Federal rules restrict any use of the information to criminally investigate or prosecute any alcohol or drug abuse patient.[facility] CenterIn the event this information is protected by the Federal Confidentiality of Alcohol and Drug Abuse Patient Records regulations: The Federal rules restrict any use of the information to criminally investigate or prosecute any alcohol or drug abuse patient.[facility] CenterIn the event this information is protected by the Federal Confidentiality of Alcohol and Drug Abuse Patient Records regulations: The Federal rules restrict any use of the information to criminally investigate or prosecute any alcohol or drug abuse patient.[facility] CenterIn the event this information is protected by the Federal Confidentiality of Alcohol and Drug Abuse Patient Records regulations: The Federal rules restrict any use of the information to criminally investigate or prosecute any alcohol or drug abuse patient.[facility] CenterIn the event this information is protected by the Federal Confidentiality of Alcohol and Drug Abuse Patient Records regulations: The Federal rules restrict any use of the information to criminally investigate or prosecute any alcohol or drug abuse patient.[facility] CenterIn the event this information is protected by the Federal Confidentiality of Alcohol and Drug Abuse Patient Records regulations: The Federal rules restrict any use of the information to criminally investigate or prosecute any alcohol or drug abuse patient.[facility] CenterIn the event this information is protected by the Federal Confidentiality of Alcohol and Drug Abuse Patient Records regulations: The Federal rules restrict any use of the information to criminally investigate or prosecute any alcohol or drug abuse patient.[facility] CenterIn the event this information is protected by the Federal Confidentiality of Alcohol and Drug Abuse Patient Records regulations: The Federal rules restrict any use of the information to criminally investigate or prosecute any alcohol or drug abuse patient.[facility] CenterIn the event this information is protected by the Federal Confidentiality of Alcohol and Drug Abuse Patient Records regulations: The Federal rules restrict any use of the information to criminally investigate or prosecute any alcohol or drug abuse patient.[facility] CenterIn the event this information is protected by the Federal Confidentiality of Alcohol and Drug Abuse Patient Records regulations: The Federal rules restrict any use of the information to criminally investigate or prosecute any alcohol or drug abuse patient.[facility] CenterIn the event this information is protected by the Federal Confidentiality of Alcohol and Drug Abuse Patient Records regulations: The Federal rules restrict any use of the information to criminally investigate or prosecute any alcohol or drug abuse patient.[facility] CenterIn the event this information is protected by the Federal Confidentiality of Alcohol and Drug Abuse Patient Records regulations: The Federal rules restrict any use of the information to criminally investigate or prosecute any alcohol or drug abuse patient.[facility] CenterIn the event this information is protected by the Federal Confidentiality of Alcohol and Drug Abuse Patient Records regulations: The Federal rules restrict any use of the information to criminally investigate or prosecute any alcohol or drug abuse patient.[facility] CenterIn the event this information is protected by the Federal Confidentiality of Alcohol and Drug Abuse Patient Records regulations: The Federal rules restrict any use of the information to criminally investigate or prosecute any alcohol or drug abuse patient.[facility] CenterIn the event this information is protected by the Federal Confidentiality of Alcohol and Drug Abuse Patient Records regulations: The Federal rules restrict any use of the information to criminally investigate or prosecute any alcohol or drug abuse patient.[facility] CenterIn the event this information is protected by the Federal Confidentiality of Alcohol and Drug Abuse Patient Records regulations: The Federal rules restrict any use of the information to criminally investigate or prosecute any alcohol or drug abuse patient.[facility] CenterIn the event this information is protected by the Federal Confidentiality of Alcohol and Drug Abuse Patient Records regulations: The Federal rules restrict any use of the information to criminally investigate or prosecute any alcohol or drug abuse patient.[facility] CenterIn the event this information is protected by the Federal Confidentiality of Alcohol and Drug Abuse Patient Records regulations: The Federal rules restrict any use of the information to criminally investigate or prosecute any alcohol or drug abuse patient.[facility] CenterIn the event this information is protected by the Federal Confidentiality of Alcohol and Drug Abuse Patient Records regulations: The Federal rules restrict any use of the information to criminally investigate or prosecute any alcohol or drug abuse patient.[facility] CenterIn the event this information is protected by the Federal Confidentiality of Alcohol and Drug Abuse Patient Records regulations: The Federal rules restrict any use of the information to criminally investigate or prosecute any alcohol or drug abuse patient.[facility] CenterIn the event this information is protected by the Federal Confidentiality of Alcohol and Drug Abuse Patient Records regulations: The Federal rules restrict any use of the information to criminally investigate or prosecute any alcohol or drug abuse patient.[facility] CenterIn the event this information is protected by the Federal Confidentiality of Alcohol and Drug Abuse Patient Records regulations: The Federal rules restrict any use of the information to criminally investigate or prosecute any alcohol or drug abuse patient.[facility] CenterIn the event this information is protected by the Federal Confidentiality of Alcohol and Drug Abuse Patient Records regulations: The Federal rules restrict any use of the information to criminally investigate or prosecute any alcohol or drug abuse patient.[facility] CenterIn the event this information is protected by the Federal Confidentiality of Alcohol and Drug Abuse Patient Records regulations: The Federal rules restrict any use of the information to criminally investigate or prosecute any alcohol or drug abuse patient.[facility] CenterIn the event this information is protected by the Federal Confidentiality of Alcohol and Drug Abuse Patient Records regulations: The Federal rules restrict any use of the information to criminally investigate or prosecute any alcohol or drug abuse patient.[facility] CenterIn the event this information is protected by the Federal Confidentiality of Alcohol and Drug Abuse Patient Records regulations: The Federal rules restrict any use of the information to criminally investigate or prosecute any alcohol or drug abuse patient.[facility] CenterIn the event this information is protected by the Federal Confidentiality of Alcohol and Drug Abuse Patient Records regulations: The Federal rules restrict any use of the information to criminally investigate or prosecute any alcohol or drug abuse patient.[facility] CenterIn the event this information is protected by the Federal Confidentiality of Alcohol and Drug Abuse Patient Records regulations: The Federal rules restrict any use of the information to criminally investigate or prosecute any alcohol or drug abuse patient.[facility] CenterIn the event this information is protected by the Federal Confidentiality of Alcohol and Drug Abuse Patient Records regulations: The Federal rules restrict any use of the information to criminally investigate or prosecute any alcohol or drug abuse patient.[facility] CenterIn the event this information is protected by the Federal Confidentiality of Alcohol and Drug Abuse Patient Records regulations: The Federal rules restrict any use of the information to criminally investigate or prosecute any alcohol or drug abuse patient.[facility] CenterIn the event this information is protected by the Federal Confidentiality of Alcohol and Drug Abuse Patient Records regulations: The Federal rules restrict any use of the information to criminally investigate or prosecute any alcohol or drug abuse patient.[facility] CenterIn the event this information is protected by the Federal Confidentiality of Alcohol and Drug Abuse Patient Records regulations: The Federal rules restrict any use of the information to criminally investigate or prosecute any alcohol or drug abuse patient.[facility] CenterIn the event this information is protected by the Federal Confidentiality of Alcohol and Drug Abuse Patient Records regulations: The Federal rules restrict any use of the information to criminally investigate or prosecute any alcohol or drug abuse patient.[facility] CenterIn the event this information is protected by the Federal Confidentiality of Alcohol and Drug Abuse Patient Records regulations: The Federal rules restrict any use of the information to criminally investigate or prosecute any alcohol or drug abuse patient.[facility] CenterIn the event this information is protected by the Federal Confidentiality of Alcohol and Drug Abuse Patient Records regulations: The Federal rules restrict any use of the information to criminally investigate or prosecute any alcohol or drug abuse patient.[facility] CenterIn the event this information is protected by the Federal Confidentiality of Alcohol and Drug Abuse Patient Records regulations: The Federal rules restrict any use of the information to criminally investigate or prosecute any alcohol or drug abuse patient.[facility] CenterIn the event this information is protected by the Federal Confidentiality of Alcohol and Drug Abuse Patient Records regulations: The Federal rules restrict any use of the information to criminally investigate or prosecute any alcohol or drug abuse patient.[facility] CenterIn the event this information is protected by the Federal Confidentiality of Alcohol and Drug Abuse Patient Records regulations: The Federal rules restrict any use of the information to criminally investigate or prosecute any alcohol or drug abuse patient.[facility] CenterIn the event this information is protected by the Federal Confidentiality of Alcohol and Drug Abuse Patient Records regulations: The Federal rules restrict any use of the information to criminally investigate or prosecute any alcohol or drug abuse patient.[facility] CenterIn the event this information is protected by the Federal Confidentiality of Alcohol and Drug Abuse Patient Records regulations: The Federal rules restrict any use of the information to criminally investigate or prosecute any alcohol or drug abuse patient.[facility] Reason for Visit (unrecogniz ed section and content) Reason Comments Pain (foot) (RT) foot pain rated 3, x2 wks denied accident/injury Reason Comments Seizures Reason Comments Sore Throat cough x 1 day Reason Onset Date Comments Refill Request 07/24/2022 Reason Comments Sore Throat X4 days Reason Comments Pain Pt reported Hx (RT) knee surgery 2020, c/o shooting pain rated 4. Reason Comments Follow Up Refill Request Reason Comments Establish Care Reason Comments Results Reason Comments Results Reason Comments Yearly Exam Reason Comments ER F/U Dizziness Reason Comments Appointment Reason Comments Non-Chemotherapy Treatment Specialty Diagnoses / Procedures Referred By Contac t Referred To Contact Diagnoses 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agia Procedures IRON SUCROSE INJECTION PER 1 MG Podlogar, , [employer] [address] [place] [address] [facility] [address] [place] [address] Referral ID Status Reason Start Date Expiration Date V isits Requested Visits Authorized [id number] Authorized 12/07/2022 03/11/2024 99 99 Reason Comments Nausea Specialty Diagnoses / Procedures Referred By Contac t Referred To Contact Diagnoses 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agia Procedures IRON SUCROSE INJECTION PER 1 MG Podlogar, , [employer] [address] [place] [address] [facility] [address] [place] [address] Specialty Diagnoses / Procedures Referred By Contac t Referred To Contact Diagnoses 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agia Procedures IRON SUCROSE INJECTION PER 1 MG Rosenda Valencia MD [address] [place] [address] [facility] [address] [place] [address] Referral ID Status Reason Start Date Expiration Date V isits Requested Visits Authorized [id number] Authorized 12/13/2022 03/13/2023 1 1 Reason Comments Patient Question Reason Comments Follow Up Iron Reason Comments Endometrial Biopsy Specialty Diagnoses / Procedures Referred By Contac t Referred To Contact [facility] Diagnoses Abnormal uterine bleeding (AUB) Procedures ENDOMETRIAL BIOPSY ENDOMETRIAL BX W/WO ENDOCERVIX BX W/O DILAT SPX Temitope Acnua MD [address] [place] [address] [facility] [address] [place] [address] Referral ID Status Reason Start Date Expiration Date V isits Requested Visits Authorized [id number] Closed Auto-Generate d Referral 01/14/2023 01/14/2024 1 1 Reason Comments Schedule Surgery Reason Comments Sore Throat X 1 day ear pain steph at Reason Comments Anesthesia Consult Reason Comments Menstrual Problem Reason Comments Post Op Reason Comments Orders MRI, EEG Reason Comments Patient Update Keppra Reason Comments Other Headache concern Reason Comments Medication Problem AEDs - Medication Ch anges Reason Comments New Patient Epilepsy since 2017, 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 Specialty Diagnoses / Procedures Referred By Contseth t Referred To Contact Diagnoses Focal epilepsy (HCC) Intractable headache, unspecified chronicity pattern, unspecified headache type Procedures CONSULT TO HEADACHE CLINIC OFFICE/OUTPATIENT NEW HIGH MDM 60-74 MINUTES Domingo Self PA-C [address] [place] [address] Referral ID Status Reason Start Date Expiration Date Visits Requested Visits Authorized [id number] Pending Review PCP Requested Referral 3 05/02/2024 1 1 Reason Comments topomax side affects Reason Comments Discussion Reason Comments Insurance Authorization Vimpat Reason Comments Knee Pain right knee pain x 2 days previous surgery Reason Comments Insurance Authorization Reason Comments Consult Reason Comments Established Patient Knee Pain Reason Comments Post-Op Visit Reason Comments Post-Op Visit bleeding Reason Comments Pain (foot) L foot, outside ankl e on into foot ad up into ankle and deluca x this am Reason Comments Patient Update Patient update Reason Comments Medication Preauthorization PA for [place] mide 100mg Reason Comments Medication Preauthorization PA for [place] amide 50mg Reason Onset Date Comments Refill Request 12/20/2023 Reason Comments Nausea Feelings of nausea r ight after eating x 6 months, no difference with specific foods, occurs every time, denies vomiting Derm Problem Base of hair line toro s had flaky and itchy skin x several years, starting to spread to back of ears and neck x 2-3 months, has never seen dermatology Reason Comments Same Day Appointment skin tags- neck and right axillary Reason Comments Radiology US Specialty Diagnoses / Procedures Referred By Brian turpin Referred To Contact US IMAGING Diagnoses Epigastric pain Nausea Procedures US ABD RIGHT UPPER QUADRANT US ABDOMINAL REAL TIME W/IMAGE LIMITED Adrianne Ignacio MD [address] [place] [address] [place] [address] Referral ID Status Reason Start Date Expiration Date V isits Requested Visits Authorized [id number] Closed Auto-Generate d Referral 12/25/2023 01/23/2025 1 1 Reason Comments Established Patient Follow Up Specialty Diagnoses / Procedures Referred By Brian turpin Referred To Contact MR IMAGING Diagnoses Acute pain of right knee Chondromalacia of right patella Tear of medial meniscus of right knee, current, unspecified tear type, initial encounter Procedures MRI KNEE WO IVCON RIGHT MRI ANY JT LOWER EXTREM W/O CONTRAST MATRL Dennise Gonzalez, DO [address] [place] [id number] Mr Imaging [id number] Referral ID Status Reason Start Date Expiration Date V isits Requested Visits Authorized [id number] Closed Auto-Generate d Referral 01/23/2024 02/21/2025 1 1 Reason Comments Medication Problem Reason Comments Radiology MRI Specialty Diagnoses / Procedures Referred By Brian turpin Referred To Contact MR IMAGING Diagnoses Liver lesion Procedures MRI LIVER WO/W IVCON MRI ABDOMEN W/O & W/CONTRAST MATERIAL Adrianne Ignacio MD [address] [id number] Mr Imaging [id number] Referral ID Status Reason Start Date Expiration Date V isits Requested Visits Authorized [id number] Closed Auto-Generate d Referral 01/08/2024 02/06/2025 1 1 Reason Comments Follow Up Results - Mri Reason Comments Refill Request Reason Comments Chest Congestion cough, sob x over 1 week Reason Comments Follow Up Patient reports was improving with treatment for PNE but feels symptoms are returning Reason Comments general Patient issues Reason Comments New Patient Headaches for 6 mesfin hs having nausea light and smell sensitivity,having some dizziness headaches are front of head and the base of her head Specialty Diagnoses / Procedures Referred By Brian t Referred To Contact Diagnoses Nonintractable headache, unspecified chronicity pattern, unspecified headache type Procedures CONSULT TO HEADACHE CLINIC OFFICE/OUTPATIENT NEW HIGH MDM 60 MINUTES Meredith Edward PA-C [address] [place] [id number] Referral ID Status Reason Start Date Expiration Date V isits Requested Visits Authorized [id number] Closed PCP Requested Referral 05/13/2024 05/13/2025 1 1 Reason Comments ER F/U Suture removal tight middle finger Reason Onset Date Comments Refill Request 06/24/2024 Reason Comments Rash Reason Comments Physical Reason Comments Vaginal Problem Reason Comments Sore Throat Fever, bodyaches x l ast night Reason Comments UTI Reason Comments Established Patient F/U. Reason Comments ER F/U [facility] for UTI/flank pa in. Last dose of ATB tonight. Reason Comments Rash Follow up Reason Onset Date Comments Refill Request 09/21/2024 Reason Comments Fatigue And unable to eat du e to nausea; increasingly worse in the last 3 weeks. Reason Onset Date Comments Medication Problem 10/26/2024 Reason Onset Date Comments Results 10/27/2024 Reason Comments Nausea XR/labs 10/26/24. Havi ng trouble eating and takes lots of Tums. Sucralfate somewhat helpful Specialty Diagnoses / Procedures Referred By Brian turpin Referred To Contact Gastroenterology Diagnoses Nausea Generalized abdominal pain Procedures CONSULT TO GASTROENTEROLOGY OFFICE/OUTPATIENT [facility] 60 MINUTES Podlogar, ANGÉLICA Muniz.TRACK WATCHMAN [address] [place] [address] Phone: tel: fax: Outpatient Referral [address] [place] [address] Referral ID Status Reason Start Date Expiration Date V isits Requested Visits Authorized [id number] Closed PCP Requested Referral 10/27/2024 06/23/2025 1 1 Reason Comments Sore Throat Fever, body aches, h eadache x 7 hours Reason Comments Other Speech issues and fe eling as if steps are off Reason Comments Seizures Follow Up Refill Request Reason Comments Orders Stratus Reason Comments Well Woman Reason Comments Knee Pain Established Patient Reason Comments Patient Update Reason Comments Recheck MD follow up per Kady adriano for Constipation, Nausea and Abdominal Pain Reason Comments Manometry Specialty Diagnoses / Procedures Referred By Brian turpin Referred To Contact [facility] Diagnoses Chronic constipation Bloating Procedures [facility] ANORECTAL MANOMETRY ANORECTAL MANOMETRY Shavon Lacey MD [address] [facility] [place] [address] Phone: tel: fax: [facility] [address] [place] [address] Referral ID Status Reason Start Date Expiration Date V isits Requested Visits Authorized [id number] Closed Auto-Generate d Referral 02/16/2025 02/16/2026 1 1 Reason Comments Manometry Manometry consult Specialty Diagnoses / Procedures Referred By Contac t Referred To Contact [facility] Diagnoses Chronic constipation Bloating Procedures [facility] ANORECTAL MANOMETRY ANORECTAL MANOMETRY Shavon Lacey MD [address] [facility] [place] [address] Phone: tel: fax: [facility] [address] [place] [address] Referral ID Status Reason Start Date Expiration Date V isits Requested Visits Authorized [id number] Closed Auto-Generate d Referral 02/16/2025 02/16/2026 1 1 Care Teams (unrecognized sec tion and content) Contract Clerk Relationship Specialty Start Date End Date Demond Allen III, MD [employer] PCP - General 04/14/02 Contract Clerk Relationship Specialty Start Date End Date Demond Allen III, MD [employer] PCP - General 04/14/02 Team Status: Active Member Role Status Dates Dr. Demond Allen III, MD Family Provider Active No Primary Care Physician Primary Care Provider Active Team Status: Inactive Member Role Status Dates No Primary Care Physician Primary Care Provider Active Dr. Georgina Whitley MD Attending Provider, Emergency Provider Active Team Status: Inactive Member Role Status Dates No Primary Care Physician Primary Care Provider Active Ed Physician Provider Emergency Provider Active Contract Clerk Relationship Specialty Start Date End Date Adrianne Ignacio MD [address] [place], [place] [address] PCP - General Family Medicine 11/23/22 Contract Clerk Relationship Specialty Start Date End Date Adrianne Ignacio MD [address] [place], [place] [address] PCP - General Family Medicine 11/23/22 Contract Clerk Relationship Specialty Start Date End Date Adrianne Ignacio MD [address] [place] [address] PCP - General Family Medicine 11/23/22 Team Status: Inactive Member Role Status Dates No Primary Care Physician Primary Care Provider Active Ed Physician Provider Attending Provider, Emergency Pr ovider Active Team Status: Inactive Member Role Status Dates No Primary Care Physician Primary Care Provider Active Dr. Robert Belcher , DO Emergency Provider Active Contract Clerk Relationship Specialty Start Date End Date Adrianne Ignacio MD [address] [place] [address] PCP - General Family Medicine 11/23/22 Contract Clerk Relationship Specialty Start Date End Date Adrianne Ignacio MD [address] [place] [address] PCP - General Family Medicine 11/23/22 Contract Clerk Relationship Specialty Start Date End Date Adrianne Ignacio MD [address] [place] [address] PCP - General Family Medicine 11/23/22 Contract Clerk Relationship Specialty Start Date End Date Adrianne Ignacio MD [address] [place] [address] PCP - General Family Medicine 11/23/22 Contract Clerk Relationship Specialty Start Date End Date Adrianne Ignacio MD [address] [place] [address] PCP - General Family Medicine 11/23/22 Contract Clerk Relationship Specialty Start Date End Date Adrianne Ignacio MD [address] [facility] [place] [address] PCP - General Family Medicine 11/23/22 Contract Clerk Relationship Specialty Start Date End Date Adrianne Ignacio MD [address] [place] [address] PCP - General Family Medicine 11/23/22 Contract Clerk Relationship Specialty Start Date End Date Adrianne Ignacio MD [address] [place] [address] PCP - General Family Medicine 11/23/22 Contract Clerk Relationship Specialty Start Date End Date Adrianne Ignacio MD [address] [place] [address] PCP - General Family Medicine 11/23/22 Contract Clerk Relationship Specialty Start Date End Date Adrianne Ignacio MD [address] [place] [address] PCP - General Family Medicine 11/23/22 Contract Clerk Relationship Specialty Start Date End Date Adrianne Ignacio MD [address] [place] [address] PCP - General Family Medicine 11/23/22 Contract Clerk Relationship Specialty Start Date End Date Adrianne Ignacio MD [address] [place] [address] PCP - General Family Medicine 11/23/22 Contract Clerk Relationship Specialty Start Date End Date Adrianne Ignacio MD [address] [place] [address] PCP - General Family Medicine 11/23/22 Contract Clerk Relationship Specialty Start Date End Date Adrianne Ignacio MD [address] [place] [address] PCP - General Family Medicine 11/23/22 Contract Clerk Relationship Specialty Start Date End Date Adrianne Ignacio MD [address] [place] [address] PCP - General Family Medicine 11/23/22 Contract Clerk Relationship Specialty Start Date End Date Adrianne Ignacio MD [address] [place] [address] PCP - General Family Medicine 11/23/22 Contract Clerk Relationship Specialty Start Date End Date Adrianne Ignacio MD [address] [place] [address] PCP - General Family Medicine 11/23/22 Contract Clerk Relationship Specialty Start Date End Date Adrianne Ignacio MD [address] [place] [address] PCP - General Family Medicine 11/23/22 Contract Clerk Relationship Specialty Start Date End Date Adrianne Ignacio MD [address] [place] [address] PCP - General Family Medicine 11/23/22 Team Status: Inactive Member Role Status Dates No Primary Care Physician Primary Care Provider Active Dr. Robert Belcher , DO Attending Provider, Emergency P jazmyn Active Team Status: Inactive Member Role Status Dates No Primary Care Physician Primary Care Provider Active Dr. Fabio Shah , DO Emergency Provider Active Contract Clerk Relationship Specialty Start Date End Date Adrianne Ignacio MD [address] [place] [address] PCP - General Family Medicine 11/23/22 Contract Clerk Relationship Specialty Start Date End Date Adrianne Ignacio MD [address] [place] [address] PCP - General Family Medicine 11/23/22 Contract Clerk Relationship Specialty Start Date End Date Adrianne Ignacio MD [address] [place] [address] PCP - General Family Medicine 11/23/22 Contract Clerk Relationship Specialty Start Date End Date Adrianne Ignacio MD [address] [place] [address] PCP - General Family Medicine 11/23/22 Contract Clerk Relationship Specialty Start Date End Date Adrianne Ignacio MD [address] [place] [address] PCP - General Family Medicine 11/23/22 Contract Clerk Relationship Specialty Start Date End Date Adrianne Ignacio MD [address] [place] [address] PCP - General Family Medicine 11/23/22 Contract Clerk Relationship Specialty Start Date End Date Adrianne Ignacio MD [address] [place] [address] PCP - General Family Medicine 11/23/22 Contract Clerk Relationship Specialty Start Date End Date Adrianne Ignacio MD [address] [place] [address] PCP - General Family Medicine 11/23/22 Contract Clerk Relationship Specialty Start Date End Date Adrianne Ignacio MD [address] [place] [address] PCP - General Family Medicine 11/23/22 Contract Clerk Relationship Specialty Start Date End Date Adrianne Ignacio MD [address] [place] [address] PCP - General Family Medicine 11/23/22 Contract Clerk Relationship Specialty Start Date End Date Adrianne Ignacio MD [address] [place] [address] PCP - General Family Medicine 11/23/22 Contract Clerk Relationship Specialty Start Date End Date Adrianne Ignacio MD [address] [place], [place] [address] [phone] PCP - General Family Medicine 11/23/22 Team Status: Active Member Role Status Dates No Primary Care Physician Primary Care Provider Active Dr. Larry Gamble MD Emergency Provider Active Denis Zeng Attending Provider Active Team Status: Active Member Role Status Dates Dr. Demond Allen III, MD Family Provider Active Dr. Skip Ignacio MD Primary Care Provider Acti ve Team Status: Inactive Member Role Status Dates Dr. Larry Gamble MD Emergency Provider Active Dr. Janay Zeng MD Admit Provider, Attending Pro vider Active Dr. Skip Ignacio MD Primary Care Provider Acti ve Contract Clerk Relationship Specialty Start Date End Date Adrianne Ignacio MD [address] [place] [address] PCP - General Family Medicine 11/23/22 Contract Clerk Relationship Specialty Start Date End Date Adrianne Ignacio MD [address] [place] [address] PCP - General Family Medicine 11/23/22 Contract Clerk Relationship Specialty Start Date End Date Adrianne Ignacio MD [address] [place] [address] PCP - General Family Medicine 11/23/22 Contract Clerk Relationship Specialty Start Date End Date Adrianne Ignacio MD [address] [place] [address] PCP - General Family Medicine 11/23/22 Contract Clerk Relationship Specialty Start Date End Date Adrianne Ignacio MD [address] [place] [address] PCP - General Family Medicine 11/23/22 Contract Clerk Relationship Specialty Start Date End Date Adrianne Ignacio MD [address] [place] [address] PCP - General Family Medicine 11/23/22 Contract Clerk Relationship Specialty Start Date End Date Adrianne Ignacio MD [address] [place] [address] PCP - General Family Medicine 11/23/22 Contract Clerk Relationship Specialty Start Date End Date Adrianne Ignacio MD [address] [place] [address] PCP - General Family Medicine 11/23/22 Contract Clerk Relationship Specialty Start Date End Date Adrianne Ignacio MD [address] [place] [address] PCP - General Family Medicine 11/23/22 Contract Clerk Relationship Specialty Start Date End Date Adrianne Ignacio MD [address] [place] [address] PCP - General Family Medicine 11/23/22 Contract Clerk Relationship Specialty Start Date End Date Adrianne Ignacio MD [address] [place] [address] PCP - General Family Medicine 11/23/22 Contract Clerk Relationship Specialty Start Date End Date Adrianne Ignacio MD [address] [place] [address] PCP - General Family Medicine 11/23/22 Contract Clerk Relationship Specialty Start Date End Date Adrianne Ignacio MD [address] [place] [address] PCP - General Family Medicine 11/23/22 Contract Clerk Relationship Specialty Start Date End Date Adrianne Ignacio MD [address] [place] [address] PCP - General Family Medicine 11/23/22 Contract Clerk Relationship Specialty Start Date End Date Adrianne Ignacio MD [address] [place] [address] PCP - General Family Medicine 11/23/22 Contract Clerk Relationship Specialty Start Date End Date Adrianne Ignacio MD [address] [place] [address] PCP - General Family Medicine 11/23/22 Contract Clerk Relationship Specialty Start Date End Date Adrianne Ignacio MD [address] [place] [address] PCP - General Family Medicine 11/23/22 Contract Clerk Relationship Specialty Start Date End Date Adrianne Ignacio MD [address] [place] [address] PCP - General Family Medicine 11/23/22 Contract Clerk Relationship Specialty Start Date End Date Demond Allen III, MD [employer] PCP - General 04/14/02 05/14/22 Contract Clerk Relationship Specialty Start Date End Date Demond Allen III, MD [employer] PCP - General 04/14/02 05/14/22 Contract Clerk Relationship Specialty Start Date End Date Adrianne Ignacio MD [address] [place] [address] PCP - General Family Medicine 11/23/22 Contract Clerk Relationship Specialty Start Date End Date Adrianne Ignacio MD [address] [place] [address] PCP - General Family Medicine 11/23/22 Contract Clerk Relationship Specialty Start Date End Date Adrianne Ignacio MD [address] [place] [address] PCP - General Family Medicine 11/23/22 Contract Clerk Relationship Specialty Start Date End Date Adrianne Ignacio MD [address] [place] [address] PCP - General Family Medicine 11/23/22 Contract Clerk Relationship Specialty Start Date End Date Adrianne Ignacio MD [address] [place] [address] PCP - General Family Medicine 11/23/22 Contract Clerk Relationship Specialty Start Date End Date Adrianne Ignacio MD [address] [place] [address] PCP - General Family Medicine 11/23/22 Cristy Dunbar APRN.CNP [address] [place] [address] [facility] 05/30/24 Contract Clerk Relationship Specialty Start Date End Date Adrianne Ignacio MD [address] [place] [address] PCP - General Family Medicine 11/23/22 PodlogarCristy APRN.TRACK WATCHMAN [address] [facility] [address] [facility] 05/30/24 Contract Clerk Relationship Specialty Start Date End Date Adrianne Ignacio MD [address] [place] [address] PCP - General Family Medicine 11/23/22 PodlogarCristy APRN.TRACK WATCHMAN [address] [place] [address] [facility] 05/30/24 Contract Clerk Relationship Specialty Start Date End Date Adrianne Ignacio MD [address] [place] [address] PCP - General Family Medicine 11/23/22 PodlogarCristy APRN.TRACK WATCHMAN [address] [place] [address] [facility] 05/30/24 Contract Clerk Relationship Specialty Start Date End Date Adrianne Ignacio MD [address] [place] [address] PCP - General Family Medicine 11/23/22 PodlogarCristy APRN.TRACK WATCHMAN [address] [place] [address] [facility] 05/30/24 Contract Clerk Relationship Specialty Start Date End Date Adrianne Ignacio MD [address] [place] [address] PCP - General Family Medicine 11/23/22 PodlogarCristy APRN.TRACK WATCHMAN [address] [place] [address] [facility] 05/30/24 Contract Clerk Relationship Specialty Start Date End Date Adrianne Ignacio MD [address] [place] [address] PCP - General Family Medicine 11/23/22 PodlogarCristy APRN.TRACK WATCHMAN [address] [place] [address] [facility] 05/30/24 Contract Clerk Relationship Specialty Start Date End Date Adrianne Ignacio MD [address] [place] [address] PCP - General Family Medicine 11/23/22 PodlogarCristy APRN.TRACK WATCHMAN [address] [place] [address] [facility] 05/30/24 Contract Clerk Relationship Specialty Start Date End Date Adrianne Ignacio MD [address] [place] [address] PCP - General Family Medicine 11/23/22 PodlogarCristy APRN.TRACK WATCHMAN [address] [place] [address] [facility] 05/30/24 Contract Clerk Relationship Specialty Start Date End Date Adrianne Ignacio MD [address] [place] [address] PCP - General Family Medicine 11/23/22 PodlogarCristy APRN.TRACK WATCHMAN [address] [place] [address] [facility] 05/30/24 Iveth Uriarte APRN.TRACK WATCHMAN [address] [place] [address] [facility] 09/04/24 Contract Clerk Relationship Specialty Start Date End Date Adrianne Ignacio MD [address] [place] [address] PCP - General Family Medicine 11/23/22 PodlogarCristy APRN.TRACK WATCHMAN [address] [place] [address] [facility] 05/30/24 Iveth Uriarte APRN.TRACK WATCHMAN [address] [place] [address] [facility] Contract Clerk Relationship Specialty Start Date End Date Adrianne Ignacio MD [address] [place] [address] PCP - General Family Medicine 11/23/22 PodlogarCristy APRN.TRACK WATCHMAN [address] [place] [address] [facility] 05/30/24 Iveth Uriarte APRN.TRACK WATCHMAN [address] [place] [address] [facility] 09/04/24 09/13/24 Iveth Uriarte APRN.TRACK WATCHMAN [address] [place] [address] [facility] Contract Clerk Relationship Specialty Start Date End Date Adrianne Ignacio MD [address] [place] [address] PCP - General Family Medicine 11/23/22 PodlogarCristy APRN.TRACK WATCHMAN [address] [place] [address] [facility] 05/[facility]/24 Iveth Uriatre BLOCKLAYER.TRACK WATCHMAN [address] [place] [address] [facility] 09/14/24 Contract Clerk Relationship Specialty Start Date End Date Adrianne Ignacio MD [address] [place] [address] PCP - General Family Medicine 11/23/22 PodlogarCristy BLOCKLAYER.TRACK WATCHMAN [address] [place] [address] [facility] 05/30/24 Iveth Uirarte BLOCKLAYER.TRACK WATCHMAN [address] [place] [address] [facility] Medicine 09/14/24 Contract Clerk Relationship Specialty Start Date End Date Adrianne Ignacio MD [address] [place] [address] PCP - General Family Medicine 11/23/22 Podlogar, ANGÉLICA Muniz.TRACK WATCHMAN [address] [place] [address] [facility] 05/30/24 Iveth Uriarte APRN.TRACK WATCHMAN [address] [place], [place] [address] [facility] 09/14/24 Contract Clerk Relationship Specialty Start Date End Date Adrianne Ignacio MD [address] [place] [address] PCP - General Family Medicine 11/23/22 Podlogar, ANGÉLICA Muniz.TRACK WATCHMAN [address] [place] [address] [facility] 05/30/24 Iveth Uriarte BLOCKLAYER.TRACK WATCHMAN [address] [place] [address] [facility] Medicine 09/14/24 Contract Clerk Relationship Specialty Start Date End Date Adrianne Ignacio MD [address] [place] [address] PCP - General Family Medicine 11/23/22 PodlogarCristy BLOCKLAYER.TRACK WATCHMAN [address] [place] [address] [facility] Family Medicine 05/30/24 Iveth Uriarte APRN.TRACK WATCHMAN [address] [facility] [place] [address] [facility] Medicine 09/14/24 Contract Clerk Relationship Specialty Start Date End Date Adrianne Ignacio MD [address] [place] [address] PCP - General Family Medicine 11/23/22 PodlogarCristy APRN.TRACK WATCHMAN [address] [place] [address] [facility] 05/30/24 Iveth Uriarte APRN.TRACK WATCHMAN [address] [facility] [place] [address] [facility] 09/14/24 Contract Clerk Relationship Specialty Start Date End Date Adrianne Ignacio MD [address] [place] [address] PCP - General Family Medicine 11/23/22 PodlogarCristy BLOCKLAYER.TRACK WATCHMAN [address] [place] [address] [facility] 05/30/24 Iveth Uriarte BLOCKLAYER.TRACK WATCHMAN [address] [facility] [place] [address] [facility] 09/14/24 Contract Clerk Relationship Specialty Start Date End Date Adrianne Ignacio MD [address] [place] [address] PCP - General Family Medicine 11/23/22 PodlogarCristy APRN.TRACK WATCHMAN [address] [place] [address] [facility] 05/30/24 Iveth Uriarte APRN.TRACK WATCHMAN [address] [place] [address] [facility] 12/03/24 Contract Clerk Relationship Specialty Start Date End Date Adrianne Ignacio MD [address] [place] [address] PCP - General Family Medicine 11/23/22 Podlogar, ANGÉLICA Muniz.TRACK WATCHMAN [address] [place] [address] [facility] 05/30/24 Iveth Uriarte APRN.TRACK WATCHMAN [address] [place] [id number] [facility] 12/03/24 Contract Clerk Relationship Specialty Start Date End Date Adrianne Ignacio MD [address] [place] [address] PCP - General Family Medicine 11/23/22 PodlogarCristy APRN.TRACK WATCHMAN [address] [place] [address] [facility] 05/30/24 Iveth Uriarte BLOCKLAYER.TRACK WATCHMAN [address] [place] [address] [facility] 12/03/24 Contract Clerk Relationship Specialty Start Date End Date Adrianne Ignacio MD [address] [place] [address] PCP - General Family Medicine 11/23/22 Podlogar, Cristy BLOCKLAYER.TRACK WATCHMAN [address] [place] [address] [facility] 05/30/24 Iveth Uriarte BLOCKLAYER.TRACK WATCHMAN [address] [place] [address] [facility] Contract Clerk Relationship Specialty Start Date End Date Adrianne Ignacio MD [address] [place] [address] PCP - General Family Medicine 11/23/22 PodlogarCristy BLOCKLAYER.TRACK WATCHMAN [address] [place] [address] [facility] 05/30/24 Iveth Uriarte BLOCKLAYER.TRACK WATCHMAN [address] [place] [address] [facility] 12/03/24 Contract Clerk Relationship Specialty Start Date End Date Adrianne Ignacio MD [address] [place] [address] PCP - General Family Medicine 11/23/22 PodlogarCristy BLOCKLAYER.TRACK WATCHMAN [address] [place] [address] [facility] 05/30/24 Iveth Uriarte, BLOCKLAYER.TRACK WATCHMAN [address] [place] [address] [facility] 12/03/24 Contract Clerk Relationship Specialty Start Date End Date Adrianne Ignacio MD [address] [place] [address] PCP - General Family Medicine 11/23/22 Podlogar, Cristy BLOCKLAYER.TRACK WATCHMAN [address] [place] [address] [facility] 05/30/24 Iveth Uriarte APRN.TRACK WATCHMAN [address] [place] [address] [facility] Contract Clerk Relationship Specialty Start Date End Date Adrianne Ignacio MD [address] [place] [address] PCP - General Family Medicine 11/23/22 Podlogar, Cristy BLOCKLAYER.TRACK WATCHMAN [address] [place] [address] [facility] 05/30/24 Iveth Uriarte BLOCKLAYER.TRACK WATCHMAN [address] [place] [address] [facility] 12/03/24 Contract Clerk Relationship Specialty Start Date End Date Adrianne Ignacio MD [address] [place] [address] PCP - General Family Medicine 11/23/22 PodlogarCristy BLOCKLAYER.TRACK WATCHMAN [address] [place] [address] [facility] Medicine 05/30/24 Iveth Uriarte BLOCKLAYER.TRACK WATCHMAN [address] [place] [address] [facility] 12/03/24 Contract Clerk Relationship Specialty Start Date End Date Adrianne Ignacio MD [address] [place] [address] PCP - General Family Medicine 11/23/22 PodlogarCristy APRN.TRACK WATCHMAN [address] [place] [address] [facility] 05/30/24 Iveth Uriarte BLOCKLAYER.TRACK WATCHMAN [address] [facility] [place] [address] [facility] 12/03/24 Contract Clerk Relationship Specialty Start Date End Date Adrianne Ignacio MD [address] [place] [address] PCP - General Family Medicine 11/23/22 PodlogarCristy BLOCKLAYER.TRACK WATCHMAN [address] [place] [address] [facility] 05/30/24 Iveth Uriarte BLOCKLAYER.TRACK WATCHMAN [address] [facility] [place] [address] [facility] 12/03/24 Contract Clerk Relationship Specialty Start Date End Date Adrianne Ignacio MD [address] [place] [address] PCP - General Family Medicine 11/23/22 PodlogarCristy BLOCKLAYER.TRACK WATCHMAN [address] [place] [address] [facility] 05/30/24 Iveth Uriarte APRN.TRACK WATCHMAN [address] [place] [address] [facility] 12/03/24 Contract Clerk Relationship Specialty Start Date End Date Adrianne Ignacio MD [address] [place] [address] PCP - General Family Medicine 11/23/22 PodlogarCristy APRN.TRACK WATCHMAN [address] [place] [address] [facility] 05/30/24 Iveth Uriarte APRN.TRACK WATCHMAN [address] [place] [address] [facility] 12/03/24 Contract Clerk Relationship Specialty Start Date End Date Adrianne Ignacio MD [address] [place] [address] PCP - General Family Medicine 11/23/22 PodlogarCristy APRN.TRACK WATCHMAN [address] [place] [address] [facility] 05/30/24 Iveth Uriarte APRN.TRACK WATCHMAN [address] [place] [address] [facility] 12/03/24 Contract Clerk Relationship Specialty Start Date End Date Adrianne Ignacio MD [address] [place] [address] PCP - General Family Medicine 11/23/22 Podlogar, ANGÉLICA Muniz.TRACK WATCHMAN [address] [place] [address] [facility] 05/30/24 Iveth Uriarte APRN.TRACK WATCHMAN [address] [place] [address] [facility] Contract Clerk Relationship Specialty Start Date End Date Adrianne Ignacio MD [address] [place] [address] PCP - General Family Medicine 11/23/22 PodlogarCristy APRN.TRACK WATCHMAN [address] [place] [address] [facility] 05/30/24 Iveth Uriarte BLOCKLAYER.TRACK WATCHMAN [address] [place] [address] [facility] 12/03/24 Contract Clerk Relationship Specialty Start Date End Date Adrianne Ignacio MD [address] [place] [address] PCP - General Family Medicine 11/23/22 PodlogarCristy BLOCKLAYER.TRACK WATCHMAN [address] [place] [address] [facility] 05/30/24 Iveth Uriarte BLOCKLAYER.TRACK WATCHMAN [address] [place] [address] [facility] 12/03/24 Contract Clerk Relationship Specialty Start Date End Date Adrianne Ignacio MD [address] [place] [address] PCP - General Family Medicine 11/23/22 Podlogar, ANGÉLICA Muniz.TRACK WATCHMAN [address] [place] [address] [facility] 05/30/24 Iveth Uriarte BLOCKLAYER.TRACK WATCHMAN [address] [place] [address] [facility] 12/03/24 Contract Clerk Relationship Specialty Start Date End Date Adrianne Ignacio MD [address] [place] [address] PCP - General Family Medicine 11/23/22 Podlogar, ANGÉLICA Muniz.TRACK WATCHMAN [address] [place] [address] [facility] 05/30/24 Iveth Uriarte BLOCKLAYER.TRACK WATCHMAN [address] [place] [address] [facility] 12/03/24 Contract Clerk Relationship Specialty Start Date End Date Adrianne Ignacio MD [address] [place] [address] PCP - General Family Medicine 11/23/22 PodlogarCristy BLOCKLAYER.TRACK WATCHMAN [address] [place] [address] [facility] Medicine 05/30/24 Iveth Uriarte, BLOCKLAYER.TRACK WATCHMAN [address] [place] [address] [facility] 12/03/24 FOR RECORDS PERTAINING TO PATIENTS WHO ARE OR HAVE BEEN ENROLLED IN A CHEMICAL DEPENDENCY/SUBSTANCEABUSE PROGRAM, SOME INFORMATION MAY BE OMITTED. This clinical summary was aggregated from multiple sources. Caution should be exercised in using it in the provision of clinical care. This summary normalizes information from multiple sources, and as a consequence, information in this document may materially change the coding, format and clinical context of patient data. In addition, data may be omitted in some cases. CLINICAL DECISIONS SHOULD BE BASED ON THE PRIMARY CLINICAL RECORDS. [facility] [employer] [facility]. provides no warranty or guarantee of the accuracy or completeness of information in this document.
[2025-03-15 07:02] LABS: Squamous Epithelial Cells - UA 5-10 SEEN /hpf (5-10)
[2025-03-15 07:14] LABS: AST(SGOT) 18 U/L (<=31); Alanine Aminotransfer ALT/SGPT 11 U/L (<=34); Albumin, Serum 4.3 g/dL (3.5-5.0); Alkaline Phosphatase 49 U/L (35-104); Anion Gap 13 (5-15); BUN 11 mg/dL (4-19); BUN/Creat Ratio 12.6 RATIO (10-20); Calcium,Total 9.5 mg/dL (7.6-11.0); Carbon Dioxide 20.3 mmol/L (21.0-32.0); Chloride 106 mmol/L (98-108); Estimated Creatinine Clearance 76.25 ml/min (50-250); Globulin 2.7 g/dL (2.2-4.2); Glucose 91 mg/dL (70-99); Lipase 35 U/L (13-75); Potassium 3.7 mmol/L (3.3-5.1)
--- NOTE | 2025-03-15 07:38 | CT_ITS ---
PROCEDURE: ABDOMEN/PELVIS W IV CONT ONLY 03/15/2025 REASON FOR EXAM: ABDOMINAL PAIN TECHNIQUE: Procedure Code: [id number] Modality: CT Procedure: ABDOMEN/PELVIS W IV CONT ONLY Coronal and Sagittal reconstruction series were provided. CONTRAST: 100 cc Isovue 370 One or more dose reduction techniques were used (e.g., Automated exposure control, adjustment of the mA and/or kV according to patient size, use of iterative reconstruction technique. RADIATION DOSE SUMMARY: DLP: 500.93 mGycm COMPARISON: August 22, 2024 FINDINGS: Lung bases: Clear Liver: Unremarkable Gallbladder: Unremarkable Spleen: Unremarkable, 12 cm in length. Pancreas: Unremarkable Adrenals: Unremarkable Kidneys: Unremarkable Bladder: Unremarkable Reproductive Organs: There is a 2.2 cm peripherally enhancing density in the right ovary, image 102/135 may represent a follicle in involution. Bowel: Gas and stool is noted throughout the colon, with a moderate stool load. The small-bowel loops are nondistended. Appendix: The appendix is within normal limits. A 0.2 cm appendicolith is noted. Lymph nodes: There is no pathologic adenopathy by size criteria Vasculature: There is no significant atherosclerosis Peritoneum / Retroperitoneum: There is no free air or free fluid. There is a 1.5 x 0.8 cm uncomplicated fat containing paraumbilical hernia. Bones: There is no acute bony abnormality. CT/Abdomen/Pelvis W IV Cont ONLY IMPRESSION: There is a 1.5 x 0.8 cm uncomplicated fat containing paraumbilical hernia, unch anged. There is a 2.2 cm peripherally enhancing density in the right ovary, image 102/ 135 may represent a follicle in involution. Reading Location: [facility]
[2025-03-15 08:19] VITALS: BP 110/81; PULSE 83; RESP 14; O2SAT 98
[2025-03-15 08:52] VITALS: BP 121/89; PULSE 62; RESP 14; TEMP 36.6; O2SAT 98
== END 2025-03-15 08:53 | disposition home or self-care (01) ==
PROVIDERS: Emergency Provider Emergency Medicine; PCP Family Medicine; Visit Provider Emergency Medicine
DX: R10.9 Unspecified abdominal pain (principal); K59.00 Constipation, unspecified; R11.2 Nausea with vomiting, unspecified; K42.9 Umbilical hernia without obstruction or gangrene; N83.201 Unspecified ovarian cyst, right side
CPT/HCPCS: 74177; 80053; 81001; 83690; 85025; 96361; 96374; 96375; 99283; Q9967; A4216; J2405